=== PATIENT | female | born 1990 | race Caucasian/White ===

== ENCOUNTER → 2017-12-01 13:10 | Outpatient (CLI) | payer MEDICAID, SELFPAY ==
[2017-12-01 14:05] LABS: hCG Titer Quant., Serum 124 mIU/mL (<9 non-preg)
== END ==
PROVIDERS: Family Provider Family Medicine; PCP Family Medicine; Visit Provider Obstetrics & Gynecology
DX: N92.6 Irregular menstruation, unspecified (principal)
CPT/HCPCS: 36415; 84702

== ENCOUNTER → 2017-12-03 09:13 | Outpatient (CLI) | payer MEDICAID, SELFPAY ==
[2017-12-03 10:43] LABS: hCG Titer Quant., Serum 292 mIU/mL (<9 non-preg)
== END ==
PROVIDERS: Family Provider Family Medicine; PCP Family Medicine; Visit Provider Obstetrics & Gynecology
DX: N92.6 Irregular menstruation, unspecified (principal)
CPT/HCPCS: 36415; 84702

== ENCOUNTER → 2017-12-09 11:46 | Outpatient (CLI) | payer MEDICAID, SELFPAY ==
[2017-12-09 14:02] LABS: hCG Titer Quant., Serum 3328 mIU/mL (<9 non-preg)
== END ==
PROVIDERS: Family Provider Family Medicine; PCP Family Medicine; Visit Provider Nurse Practitioner Women's Health
DX: O20.0 Threatened abortion (principal)
CPT/HCPCS: 36415; 84702

== ENCOUNTER → 2017-12-11 12:20 | Outpatient (CLI) | payer MEDICAID, SELFPAY ==
[2017-12-11 13:20] LABS: hCG Titer Quant., Serum 5098 mIU/mL (<9 non-preg)
== END ==
PROVIDERS: Nurse Practitioner Women's Health; Family Provider Family Medicine; PCP Family Medicine; Visit Provider Obstetrics & Gynecology
DX: O20.0 Threatened abortion (principal); Z3A.00 Weeks of gestation of pregnancy not specified
CPT/HCPCS: 36415; 84702

== ENCOUNTER → 2017-12-13 15:58 | Outpatient (CLI) | payer MEDICAID, SELFPAY ==
[2017-12-13 17:09] LABS: hCG Titer Quant., Serum 8395 mIU/mL (<9 non-preg)
== END ==
PROVIDERS: Family Provider Family Medicine; PCP Family Medicine; Visit Provider Nurse Practitioner Women's Health
DX: O20.0 Threatened abortion (principal); Z3A.00 Weeks of gestation of pregnancy not specified
CPT/HCPCS: 36415; 84702

== ENCOUNTER 2017-12-18 09:09 | Emergency (ER) | payer MEDICAID, SELFPAY ==
[2017-12-18 09:10] VITALS: BP 143/83; PULSE 102; RESP 18; TEMP 36.6; O2SAT 98; BMI 49.6
--- NOTE | 2017-12-18 09:22 | US_ITS ---
STUDY: FIRST TRIMESTER OBSTETRICAL ULTRASOUND REASON FOR EXAM: Female, 27 years old. Bleeding. LMP: October 30, 2017 TECHNIQUE: Transvaginal. PRIOR ULTRASOUND: None. FINDINGS: There is visualization of a single gestational sac in a normal intrauterine position. The mean sac diameter (MSD) measures 1.5 cm, indicating an estimated gestational age (EGA) of 6 weeks, 3 days. The gestational sac shape is within normal limits. There is a visualized yolk sac. The yolk sac measures 0.3 cm. The placenta is non-visualized. There is visualization of a live embryo. The crown-rump length (CRL) measures 0.9 cm, indicating an estimated gestational age (EGA) of 6 weeks, 6 days. There is demonstrated cardiac activity with a heart rate of 126 bpm. The estimated gestation age (EGA) by LMP is 7 weeks, 0 days. The estimated date of delivery (LENNOX) by LMP is August 06, 2018. The estimated gestation age (EGA) by US is 6 weeks, 5 days. The estimated date of delivery (LENNOX) by US is August 08, 2018. The uterus measures 10.6 x 7.7 x 6.3 cm. There is a 0.8 cm region of subchorionic hemorrhage.. There is no demonstrated uterine fibroid. The cervix is closed. The right ovary measures 2.2 x 2.2 x 1.5 cm. There is no right ovarian cyst. There is no visualized right adnexal mass or complex lesion. The left ovary is not visualized. There is minimal fluid in the cul de sac. US/Transvaginal w/Preg US IMPRESSION: Single intrauterine gestation 6 weeks 5 days with estimated due date August 08, 2018. Small region of subchorionic hemorrhage. Electronically Signed: Roosevelt Wadsworth MD at 10:59 EDT , Service support ,
--- NOTE | 2017-12-18 09:23 | ED.VISSUMM ---
- ER Visit Summary Date of Service: 12/18/17 Chief Complaint: Vaginal bleeding History of Present Illness: The patient is a 27 F who presents with vaginal bleeding that became worse today. Patient states she is approximately 7 weeks . Patient is 7 para 3 with 3 spontaneous abortions. Patient states she has been spotting throughout this but began bleeding more today. Patient states today she started passing some clots. Patient admits to some mild cramping. Patient also admits to some mild right lower back pain. Patient states her last menstrual period was 10/30/2017. Patient states she had a positive test confirmed by her physician. Patient denies any fevers or chills. Patient does admit to some nausea and vomiting which she has had throughout the . Physical Examination: Vital signs are stable except for a slightly elevated blood pressure 142/78. Patient is afebrile. Patient is in no acute distress. Oral mucosa is pink and moist. Neck is supple. Trachea is midline. There is no JVD noted. Heart was regular rate and rhythm. Lungs are clear and equal bilateral. There is good respiratory effort noted. Abdomen is soft. Bowel sounds are normal. There is some mild suprapubic tenderness. There is no rebound or guarding noted. Cranial nerves II through XII are intact. There are no focal motor or sensory deficits noted. The remaining physical exam is within normal limits. Test Results: CBC and comprehensive metabolic profile were obtained and were within normal limits. Urinalysis does not show any evidence of urinary tract infection. Quantitative hCG was 16,632. Type and Rh was O+. Transvaginal ultrasound showed a single live intrauterine at approximately 6 weeks and 5 days with a heart rate of 126. There is a small subchorionic hemorrhage noted. Patient's blood pressure was slightly elevated however, she was having no headaches, visual changes, abdominal pain, or swelling. Emergency Department Course and Treatment: Patient was given IV fluids here. Patient was instructed to get plenty of rest. Patient was instructed to have complete vaginal rest. Patient was instructed to avoid tampons, douching, and intercourse. Patient was instructed to follow-up with her TANNING SALON ATTENDANT as scheduled. Patient understood and was agreeable with the plan. All questions were answered. Disposition: Discharged home Impression: Threatened This note was generated with Wrikeation software. It may contain incorrect words, spelling, and punctuation that were not noted in review of the chart prior to signing ED Disposition - Plan for ED Patient: Disposition: Home or Assisted Living Chief Complaint: Vag Bld, Preg Diagnosis: Threatened spontaneous Instructions: ED Miscarriage Poss Referrals: Asif Tim MD [Primary Care Provider] -
[2017-12-18 09:40] LABS: Color, Urine Yellow (Yellow); Glucose, Dipstick Normal (Normal); Ketone-Dipstick 5 mg/dl (Negative); Leukocyte Esterase-Dipstick 100 /ul (Negative); Nitrite-Dipstick Negative (Negative); Occult Blood-Urine 250 /ul (Negative); Protein-Dipstick 30 mg/dl (Negative); Urine Clarity Sl. Cloudy (Clear); Urine Urobilinogen Normal (Normal)
[2017-12-18] MEDS: 0.9% Normal Saline 1,000 ML 1000 ML IV (09:40)
[2017-12-18 09:43] LABS: Urine Bilirubin Dipstick 1 mg/dL (Negative)
[2017-12-18 09:48] LABS: Bacteria 2+ /hpf (None Seen); Mucous, Urine 1+ /hpf (<or=2+); Red Blood Cells-Urine 0-5 SEEN /hpf (0-5); Squamous Epithelial Cells - UA 10-25 SEEN /hpf (5-10); White Blood Cells 0-5 SEEN /hpf (0-5)
[2017-12-18 09:51] LABS: Absolute Lymphocyte Count 1.24 X10^3/ul (0.83-4.51); Basophil# 0.01 X10^3/uL; Basophil% 0.2 % (0-1); Eosinophil# 0.03 X10^3/uL; Eosinophils% 0.5 % (0-5); Hematocrit 39.1 % (37-47); Lymphocyte # 1.24 X10^3/ul (4.0); Lymphocyte % 21.5 % (19-41); Mean Corp Hgb Conc 33.2 g/gl (32-36); Mean Corpuscular Hgb 27.7 pg (27.0-32.0); Mean Corpuscular Volume 83.4 fL (81-99); Mean Platelet Vol. 9.1 fl (6.2-12.0); Monocyte# 0.47 X10^3/uL; Monocyte% 8.1 % (0-10); Neutrophil # 4.02 X10^3/uL (2.7-7.7); Neutrophil % 69.5 % (47-70); Platelet Count 243 K/mm3 (150-450); RBC Distribution Width CV 14.7 % (11.6-14.6); RBC Distribution Width SD 44.1 fl (35.1-43.9); Red Blood Count 4.69 M/mm3 (4.2-5.4); White Blood Count 5.8 K/mm3 (4.4-11.0)
[2017-12-18 09:52] LABS: POSITIVE COUNT NO; POSITIVE DIFFERENTIAL NO; POSITIVE MORPHOLOGY NO
[2017-12-18 10:25] LABS: hCG Titer Quant., Serum 16632 mIU/mL (<9 non-preg)
[2017-12-18 10:40] LABS: ALB/GLOB Ratio 0.7 RATIO (0.9-2.4); AST(SGOT) 13 U/L (15-37); Alanine Aminotransfer ALT/SGPT 24 U/L (13-56); Albumin, Serum 3.2 g/dL (3.2-5.0); Alkaline Phosphatase 81 U/L (45-117); Anion Gap 11 (5-15); BUN 13 mg/dL (7-18); Calcium,Total 8.7 mg/dL (8.5-10.1); Chloride 104 mmol/L (98-107); Creatinine, Serum 0.81 mg/dL (0.55-1.02); EST Glomerular Filtration Rate 89 mL/min (>60); Est Glom Filt Rate - Afr Amer 108 mL/min (>60); Estimated Creatinine Clearance 104.31 ml/min; Globulin 4.4 g/dL (2.2-4.2); Glucose 87 mg/dL (74-106); Protein, Total 7.6 g/dL (6.4-8.2); Sodium Level 140 mmol/L (136-145)
[2017-12-18 11:23] VITALS: BP 142/78; PULSE 82; RESP 16; O2SAT 98
[2017-12-18 11:51] VITALS: BP 132/78; PULSE 85; RESP 16; O2SAT 98
== END 2017-12-18 11:54 | disposition home or self-care (01) ==
PROVIDERS: Emergency Provider Emergency Medicine; Family Provider Family Medicine; PCP Family Medicine
DX: O20.0 Threatened abortion (principal); O21.9 Vomiting of pregnancy, unspecified; O99.211 Obesity complicating pregnancy, first trimester; R03.0 Elevated blood-pressure reading, without diagnosis of hypertension; K21.9 Gastro-esophageal reflux disease without esophagitis; Z79.899 Other long term (current) drug therapy; Z3A.01 Less than 8 weeks gestation of pregnancy
CPT/HCPCS: 76817; 80053; 81001; 84702; 85025; 86900; 99283; J7030; A4216

== ENCOUNTER 2017-12-28 08:25 | Emergency (ER) | payer MEDICAID, SELFPAY ==
[2017-12-28 08:25] VITALS: BP 139/73; PULSE 87; RESP 18; TEMP 36.6; O2SAT 99; BMI 45.6
--- NOTE | 2017-12-28 08:38 | ED.VISSUMM ---
- ER Visit Summary Date of Service: 12/28/17 Chief Complaint: Nausea and vomiting History of Present Illness: The patient is a 27 F currently 8 weeks . AB 3 with there is being miscarriages. Currently is under the care of Dr. Doherty of [facility]. Patient said morning sickness throughout this . They have tried both Phenergan and Reglan without much success. Basically has had a lot of nausea and vomiting this morning. Also has had loose stools and diarrhea throughout the . She denies any dysuria. She denies any fever. She denies any vaginal bleeding or discharge. No abdominal pain currently. Physical Examination: Ill-appearing young female. Vital signs are stable afebrile. H EENT exam unremarkable. Neck nontender. Lungs clear to auscultation bilaterally. Heart regular rhythm no murmur. Abdomen is soft nontender. Normal bowel sounds. No peritoneal signs. Both the right upper and right lower quadrants are unremarkable. She is moving all 4 extremities. They are neurovascularly intact. Calves are without edema or cords. Neurologically she is awake and alert without any focal motor deficits. Test Results: None Emergency Department Course and Treatment: IV normal saline ?1 L. IV Zofran. Patient doing well on repeat exams. Nausea is resolving positive she has been able to hold down p.o. fluids. Treatment Plan: Discharged home with Zofran prescription. Follow-up with her SENIOR ARCHITECT. Disposition: Discharge Impression: Acute nausea and vomiting First trimester This note was generated with Retroficiency dictation software. It may contain incorrect words, spelling, and punctuation that were not noted in review of the chart prior to signing ED Disposition - Plan for ED Patient: Disposition: Home or Assisted Living Chief Complaint: Nausea/Vomiting Instructions: ED Preg Morning Sickness Prescriptions: Ondansetron [Zofran Odt] 4 mg PO Q4H PRN PRN #14 tab.rapdis PRN Reason: Nausea Referrals: Asif Tim MD [Primary Care Provider] - Additional Instructions: Plenty of fluids and rest. [place] diet and increase slowly. Zofran as needed for nausea. Not improving or doing worse. Follow-up with your SENIOR ARCHITECT.
--- NOTE | 2017-12-28 08:41 | ED.DCSUM_ITS ---
- ER Visit Summary Date of Service: 12/28/17 Chief Complaint: Nausea and vomiting History of Present Illness: The patient is a 27 F currently 8 weeks . AB 3 with there is being miscarriages. Currently is under the care of Dr. Doherty of [facility]. Patient said morning sickness throughout this . They have tried both Phenergan and Reglan without much success. Basically has had a lot of nausea and vomiting this morning. Also has had loose stools and diarrhea throughout the . She denies any dysuria. She denies any fever. She denies any vaginal bleeding or discharge. No abdominal pain currently. Physical Examination: Ill-appearing young female. Vital signs are stable afebrile. H EENT exam unremarkable. Neck nontender. Lungs clear to auscultation bilaterally. Heart regular rhythm no murmur. Abdomen is soft nontender. Normal bowel sounds. No peritoneal signs. Both the right upper and right lower quadrants are unremarkable. She is moving all 4 extremities. They are neurovascularly intact. Calves are without edema or cords. Neurologically she is awake and alert without any focal motor deficits. Test Results: None Emergency Department Course and Treatment: IV normal saline ?1 L. IV Zofran. Patient doing well on repeat exams. Nausea is resolving positive she has been able to hold down p.o. fluids. Treatment Plan: Discharged home with Zofran prescription. Follow-up with her OB /SIX COLOR PRESS OPERATOR. Disposition: Discharge Impression: Acute nausea and vomiting First trimester This note was generated with Trustifi dictation software. It may contain incorrect words, spelling, and punctuation that were not noted in review of the chart prior to signing ED Disposition - Plan for ED Patient: Disposition: Home or Assisted Living Chief Complaint: Nausea/Vomiting Instructions: ED Preg Morning Sickness Prescriptions: Ondansetron [Zofran Odt] 4 mg PO Q4H PRN PRN #14 tab.rapdis PRN Reason: Nausea Referrals: Asif Tim MD [Primary Care Provider] - Additional Instructions: Plenty of fluids and rest. [place] diet and increase slowly. Zofran as needed for nausea. Not improving or doing worse. Follow-up with your THERMOCOUPLE TESTER.
--- NOTE | 2017-12-28 08:46 | DCINST.ED_ITS ---
ED Disposition - Plan for ED Patient: Disposition: Home or Assisted Living Chief Complaint: Nausea/Vomiting Instructions: ED Preg Morning Sickness Prescriptions: Ondansetron [Zofran Odt] 4 mg PO Q4H PRN PRN #14 tab.rapdis PRN Reason: Nausea Referrals: Asif Tim MD [Primary Care Provider] - Additional Instructions: Plenty of fluids and rest. [place] diet and increase slowly. Zofran as needed for nausea. Not improving or doing worse. Follow-up with your PAPER DELIVERER.
[2017-12-28] MEDS: Ondansetron 4 MG/2 ML Vial IV (09:28)
[2017-12-28] MEDS: 0.9% Normal Saline 1,000 ML 1000 ML IV (09:28)
[2017-12-28 10:54] VITALS: BP 125/80; PULSE 68; RESP 16; O2SAT 100
== END 2017-12-28 10:55 | disposition home or self-care (01) ==
PROVIDERS: Emergency Provider Emergency Medicine; Family Provider Family Medicine; PCP Family Medicine
DX: O21.9 Vomiting of pregnancy, unspecified (principal); Z79.899 Other long term (current) drug therapy; Z3A.08 8 weeks gestation of pregnancy
CPT/HCPCS: 96361; 96374; 99283; J7030; A4216; J2405

== ENCOUNTER → 2017-12-30 09:43 | Outpatient (CLI) | payer MEDICAID, SELFPAY ==
[2017-12-30 09:46] VITALS: BP 129/78; PULSE 80; RESP 18; TEMP 36.4; O2SAT 98; BMI 45.2
[2017-12-30] MEDS: Dextrose 5%-Lactated Ringers 1,000 ML 1000 ML IV (10:19)
[2017-12-30] MEDS: Ondansetron 4 MG/2 ML Vial IV (10:19)
[2017-12-30 10:49] LABS: Anion Gap 11 (5-15); BUN 11 mg/dL (7-18); BUN/Creat Ratio 10.9 RATIO (10-20); Calcium,Total 9.1 mg/dL (8.5-10.1); Chloride 101 mmol/L (98-107); Creatinine, Serum 1.01 mg/dL (0.55-1.02); EST Glomerular Filtration Rate 69 mL/min (>60); Est Glom Filt Rate - Afr Amer 84 mL/min (>60); Estimated Creatinine Clearance 83.65 ml/min; Glucose 79 mg/dL (74-106); Potassium 3.7 mmol/L (3.5-5.1); Sodium Level 139 mmol/L (136-145)
== END ==
PROVIDERS: Family Provider Family Medicine; PCP Family Medicine; Visit Provider Obstetrics & Gynecology
DX: E86.0 Dehydration (principal)
CPT/HCPCS: 96361; 96374; 80048; A4216; J2405

== ENCOUNTER → 2018-01-02 19:01 | Outpatient (CLI) | payer MEDICAID, SELFPAY | PROVIDERS: Family Provider Family Medicine; PCP Family Medicine; Visit Provider Obstetrics & Gynecology | DX: R30.0 Dysuria (principal) | CPT/HCPCS: 87077; 87086; 87088; 87186 ==

== ENCOUNTER → 2018-01-05 14:48 | Outpatient (CLI) | payer MEDICAID, SELFPAY ==
[2018-01-05 17:17] LABS: Absolute Lymphocyte Count 1.93 X10^3/ul (0.83-4.51); Absolute Neutrophil Count 4.6 X10^3/uL (2.0-7.7); Basophil# 0.01 X10^3/uL; Basophil% 0.1 % (0-1); Eosinophil# 0.21 X10^3/uL; Eosinophils% 2.9 % (0-5); Hematocrit 41.2 % (37-47); Hemoglobin 12.9 g/dl (12.0-15.0); Lymphocyte # 1.93 X10^3/ul (4.0); Mean Corp Hgb Conc 31.3 g/gl (32-36); Mean Corpuscular Hgb 26.7 pg (27.0-32.0); Mean Corpuscular Volume 85.1 fL (81-99); Monocyte# 0.39 X10^3/uL; Monocyte% 5.4 % (0-10); Neutrophil # 4.61 X10^3/uL (2.7-7.7); Neutrophil % 64.5 % (47-70); Platelet Count 283 K/mm3 (150-450); RBC Distribution Width CV 14.1 % (11.6-14.6); RBC Distribution Width SD 44.3 fl (35.1-43.9); Red Blood Count 4.84 M/mm3 (4.2-5.4); White Blood Count 7.2 K/mm3 (4.4-11.0)
[2018-01-05 17:18] LABS: POSITIVE COUNT NO; POSITIVE DIFFERENTIAL NO; POSITIVE MORPHOLOGY NO
[2018-01-05 17:57] LABS: Glucose Challenge Gest 1H 50g 81 mg/dL (70-140)
[2018-01-06 03:50] LABS: Rapid Plasmin Reagin (RPR) NONREACTIVE (NONREACTIVE)
[2018-01-06 09:46] LABS: HIV - WCH Non-Reactive (Nonreactive); Rubella IgG 315.1 IU/mL
[2018-01-09 13:14] LABS: HEPATITIS B SURFACE AG Negative (Negative)
== END ==
PROVIDERS: Family Provider Family Medicine; PCP Family Medicine; Visit Provider Obstetrics & Gynecology
DX: Z34.90 Encounter for supervision of normal pregnancy, unspecified, unspecified trimester (principal)
CPT/HCPCS: 36415; 82950; 85025; 86592; 86703; 86762; 87340

== ENCOUNTER → 2018-01-05 17:55 | Outpatient (CLI) | payer MEDICAID, SELFPAY ==
[2018-01-05 20:24] LABS: Chlamydia Trachomatis by PCR Negative (Negative); Neisserai gonorrhoeae by PCR Negative (Negative); Probe Check PASS; Sample Adequacy Control PASS; Specimen Processing Control PASS
== END ==
PROVIDERS: Family Provider Family Medicine; Visit Provider Obstetrics & Gynecology
DX: Z34.90 Encounter for supervision of normal pregnancy, unspecified, unspecified trimester (principal)
CPT/HCPCS: 36415; 82950; 85025; 86592; 86703; 86762; 87086; 87088; 87340; 87491; 87591

== ENCOUNTER → 2018-01-19 09:49 | Outpatient (CLI) | payer MEDICAID, SELFPAY ==
[2018-01-19 10:48] LABS: Creatinine, Urine (random) < 13.00 mg/dL (NO RANGE EST.); Protein, Urine (Random) < 6.0 mg/dL (<11.9)
[2018-01-19 10:50] LABS: ALB/GLOB Ratio 0.7 RATIO (0.9-2.4); AST(SGOT) 12 U/L (15-37); Alanine Aminotransfer ALT/SGPT 24 U/L (13-56); Albumin, Serum 2.9 g/dL (3.2-5.0); Alkaline Phosphatase 73 U/L (45-117); Anion Gap 9 (5-15); BUN 8 mg/dL (7-18); BUN/Creat Ratio 11.8 RATIO (10-20); Calcium,Total 8.9 mg/dL (8.5-10.1); Chloride 105 mmol/L (98-107); Creatinine, Serum 0.68 mg/dL (0.55-1.02); EST Glomerular Filtration Rate 109 mL/min (>60); Est Glom Filt Rate - Afr Amer 132 mL/min (>60); Globulin 4.4 g/dL (2.2-4.2); Glucose 83 mg/dL (74-106); Potassium 3.8 mmol/L (3.5-5.1); Protein, Total 7.3 g/dL (6.4-8.2); Sodium Level 140 mmol/L (136-145)
== END ==
PROVIDERS: Family Provider Family Medicine; PCP Family Medicine; Visit Provider Obstetrics & Gynecology
DX: Z36.82 Encounter for antenatal screening for nuchal translucency (principal); O09.91 Supervision of high risk pregnancy, unspecified, first trimester; Z3A.00 Weeks of gestation of pregnancy not specified
CPT/HCPCS: 36415; 80053; 82570; 84156; 86850; 86900

== ENCOUNTER → 2018-02-17 18:20 | Outpatient (CLI) | payer MEDICAID, SELFPAY | PROVIDERS: Family Provider Family Medicine; PCP Family Medicine; Referring Provider Obstetrics & Gynecology; Visit Provider Obstetrics & Gynecology | DX: M54.5 Low back pain (principal) | CPT/HCPCS: 87086; 87088 ==

== ENCOUNTER → 2018-03-13 12:01 | Outpatient (CLI) | payer MEDICAID, SELFPAY | PROVIDERS: Family Provider Family Medicine; PCP Family Medicine | DX: Z36.9 Encounter for antenatal screening, unspecified (principal) | CPT/HCPCS: 36415 ==

== ENCOUNTER 2018-04-14 09:35 | Outpatient (CLI) | payer MEDICAID, SELFPAY ==
[2018-04-05 11:56] VITALS: BMI 47.1
[2018-04-14 09:52] VITALS: BMI 47.0
--- NOTE | 2018-04-18 22:48 | OB.TRI.NOTE ---
- Problem List (1) Status post fall Status: Acute (2) Obesity affecting Status: Acute Comment: 1 tm glucola normal, growth us after 32 weeks and weekly nst from then on (3) screening encounter Status: Acute Comment: abnormal for SALVADOR-A and needs growth US q4wk after 24 and weekly nst after 32 (4) History of pre-eclampsia in prior , currently in first trimester Status: Acute Comment: baseline labs nl, baby asa at 12 weeks (5) Supervision of high-risk Status: Acute Qualifiers: Comment: PRR LENNOX 08/03/18 PC Angus Rose Mary Logan boyfriend Phillip (6) GBS (group B streptococcus) UTI complicating Status: Acute Qualifiers: Comment: 01/03/18 Tx macrobid plan PCN prophylaxis at 36 weeks (7) Status: Acute Qualifiers: Comment: Seqtl screen done-negative sequtl screen, prev CF carrier screening negative, needs 2nd round bloodwork drawn at 16-18 weeks. Needs blood drawn at 15-18 weeks. anatomy us ordered. History of Present Illness Date of Service: 04/14/18 Was patient seen by the physician?: No Reason For Visit: R/O LABOR Date of Service: 04/18/18 History of Present Illness: s/p fall Allergies acetaminophen [From Percocet] Allergy (Verified 04/14/18 09:54) Other hydrocodone bitartrate [From Vicodin] Allergy (Verified 04/14/18 09:54) Other latex Allergy (Verified 04/14/18 09:54) Other metoprolol Allergy (Verified 04/14/18 09:54) Other oxycodone HCl [From Percocet] Allergy (Verified 04/14/18 09:54) Other - Pertinent Past Medical History Medical History: Past Medical History (Last Reviewed 04/05/18 @ 11:57 by Mesha Borjas) History of pre-eclampsia Hx LEEP (loop electrosurgical excision procedure), cervix, Surgical History: Past Surgical History (Last Reviewed 04/05/18 @ 11:57 by Mesha Borjas) History of foot surgery History of tonsillectomy NST - FHR Rate Baby A Baseline: 130 Variability:: Moderate Accelerations:: 10 x 10 Decelerations:: None NST Reactive:: Yes, Appropriate for gestational age FHR Category:: Category I Uterine Activity:: no ctx Impression/Plan s/p fall abdominal trauma rassuring fhts dc home
== END 2018-04-14 11:20 | disposition home or self-care (01) ==
LOC: WPOUT 09:38 → WP 09:38
PROVIDERS: Family Provider Family Medicine; PCP Family Medicine; Referring Provider Obstetrics & Gynecology; Visit Provider Obstetrics & Gynecology
DX: O9A.219 Injury, poisoning and certain other consequences of external causes complicating pregnancy, unspecified trimester (principal); S39.91XA Unspecified injury of abdomen, initial encounter; W19.XXXA Unspecified fall, initial encounter; Y93.9 Activity, unspecified; Y92.9 Unspecified place or not applicable; Y99.9 Unspecified external cause status; O99.820 Streptococcus B carrier state complicating pregnancy; O23.40 Unspecified infection of urinary tract in pregnancy, unspecified trimester; Z3A.00 Weeks of gestation of pregnancy not specified
CPT/HCPCS: 59050; 99218; G0378

== ENCOUNTER → 2018-05-08 13:33 | Outpatient (CLI) | payer MEDICAID, SELFPAY ==
[2018-05-08 13:19] VITALS: BMI 47.0
[2018-05-08 14:36] LABS: Glucose Challenge Gest 1H 50g 104 mg/dL (70-140)
[2018-05-08 14:38] LABS: Absolute Lymphocyte Count 2.06 X10^3/ul (0.83-4.51); Absolute Neutrophil Count 8.3 X10^3/uL (2.0-7.7); Basophil# 0.01 X10^3/uL; Basophil% 0.1 % (0-1); Eosinophil# 0.11 X10^3/uL; Hematocrit 37.3 % (37-47); Lymphocyte # 2.06 X10^3/ul (4.0); Lymphocyte % 19.1 % (19-41); Mean Corp Hgb Conc 32.2 g/gl (32-36); Mean Corpuscular Hgb 27.5 pg (27.0-32.0); Mean Corpuscular Volume 85.4 fL (81-99); Mean Platelet Vol. 9.2 fl (6.2-12.0); Monocyte# 0.31 X10^3/uL; Monocyte% 2.9 % (0-10); Neutrophil # 8.27 X10^3/uL (2.7-7.7); Neutrophil % 76.7 % (47-70); Platelet Count 250 K/mm3 (150-450); RBC Distribution Width CV 14.1 % (11.6-14.6); RBC Distribution Width SD 43.9 fl (35.1-43.9); Red Blood Count 4.37 M/mm3 (4.2-5.4); White Blood Count 10.8 K/mm3 (4.4-11.0)
[2018-05-08 14:40] LABS: POSITIVE COUNT NO; POSITIVE DIFFERENTIAL NO; POSITIVE MORPHOLOGY NO
== END ==
PROVIDERS: Nurse Practitioner Women's Health; Family Provider Family Medicine; PCP Family Medicine; Referring Provider Obstetrics & Gynecology; Visit Provider Obstetrics & Gynecology
DX: O09.92 Supervision of high risk pregnancy, unspecified, second trimester (principal); Z3A.00 Weeks of gestation of pregnancy not specified
CPT/HCPCS: 36415; 82950; 85025

== ENCOUNTER → 2018-06-05 17:57 | Outpatient (CLI) | payer MEDICAID, SELFPAY ==
[2018-06-05 14:17] VITALS: BMI 47.0
[2018-06-05 20:30] LABS: Chlamydia Trachomatis by PCR Negative (Negative); Neisserai gonorrhoeae by PCR Negative (Negative); Probe Check PASS; Sample Adequacy Control PASS; Specimen Processing Control PASS
== END ==
PROVIDERS: Family Provider Family Medicine; PCP Family Medicine; Referring Provider Obstetrics & Gynecology; Visit Provider Obstetrics & Gynecology
DX: O09.90 Supervision of high risk pregnancy, unspecified, unspecified trimester (principal); R30.0 Dysuria; Z3A.00 Weeks of gestation of pregnancy not specified
CPT/HCPCS: 87086; 87088; 87491; 87591

== ENCOUNTER → 2018-07-10 17:08 | Outpatient (CLI) | payer MEDICAID, SELFPAY ==
[2018-07-10 15:30] VITALS: BMI 49.6
== END ==
PROVIDERS: Family Provider Family Medicine; PCP Family Medicine; Referring Provider Obstetrics & Gynecology; Visit Provider Obstetrics & Gynecology
DX: O09.93 Supervision of high risk pregnancy, unspecified, third trimester (principal); Z3A.00 Weeks of gestation of pregnancy not specified
CPT/HCPCS: 87081

== ENCOUNTER → 2018-07-17 17:47 | Outpatient (CLI) | payer MEDICAID, SELFPAY ==
[2018-07-17 14:18] VITALS: BMI 50.9
[2018-07-17 18:09] LABS: Protein, Urine (Random) 25.2 mg/dL (<11.9); Protein:Creat Ratio 135 mg/g CRE (0-200)
== END ==
PROVIDERS: Family Provider Family Medicine; PCP Family Medicine; Referring Provider Obstetrics & Gynecology; Visit Provider Obstetrics & Gynecology
DX: O16.9 Unspecified maternal hypertension, unspecified trimester (principal)
CPT/HCPCS: 82570; 84156

== ENCOUNTER 2018-07-19 11:25 | Outpatient (CLI) | payer MEDICAID, SELFPAY ==
[2018-07-17 14:18] VITALS: BMI 50.9
[2018-07-19 12:05] VITALS: BMI 51.0
[2018-07-19 12:13] LABS: Mucous, Urine 0 SEEN /hpf (<or=2+); Red Blood Cells-Urine 0 SEEN /hpf (0-5)
[2018-07-19 12:22] LABS: Color, Urine Yellow (Yellow); Glucose, Dipstick Normal (Normal); Ketone-Dipstick Negative (Negative); Leukocyte Esterase-Dipstick 100 /ul (Negative); Nitrite-Dipstick Negative (Negative); Occult Blood-Urine Negative /ul (Negative); Protein-Dipstick Negative (Negative); Specific Gravity, Urine 1.015 (1.002-1.030); Urine Bilirubin Dipstick Negative (Negative); Urine Clarity Cloudy (Clear); Urine Urobilinogen Normal (Normal); Urine pH 6.5 (5.0 - 8.0)
[2018-07-19 12:25] LABS: ROM Internal Control Test YES-OK TO RESULT pt. (Internal QC); Record Kit Lot#, ROM+ J7836
[2018-07-19 12:33] LABS: Squamous Epithelial Cells - UA 0-5 SEEN /hpf (5-10); White Blood Cells 0-5 SEEN /hpf (0-5)
[2018-07-19 12:34] LABS: Bacteria 1+ /hpf (None Seen)
[2018-07-19 12:48] LABS: ROM Patient Test Negative (Negative)
--- NOTE | 2018-07-19 21:56 | OB.TRI.HP_ITS ---
- Problem List (1) False labor Status: Acute History of Present Illness Date of Service: 07/19/18 Was patient seen by the physician?: No Reason For Visit: R/O LABOR History of Present Illness: co ctx and pelvic pressure Allergies acetaminophen [From Percocet] Allergy (Verified 07/17/18 14:18) Other hydrocodone bitartrate [From Vicodin] Allergy (Verified 07/17/18 14:18) Other latex Allergy (Verified 07/17/18 14:18) Other metoprolol Allergy (Verified 07/17/18 14:18) Other oxycodone HCl [From Percocet] Allergy (Verified 07/17/18 14:18) Other - Pertinent Past Medical History Medical History: Past Medical History (Last Reviewed 07/17/18 @ 14:18 by Mesha Borjas) History of pre-eclampsia Hx LEEP (loop electrosurgical excision procedure), cervix, Surgical History: Past Surgical History (Last Reviewed 07/10/18 @ 14:38 by Vandana Diaz) History of foot surgery History of tonsillectomy Laboratory Studies: Laboratory Tests 07/19/18 07/19/18 Range/Units 11:55 11:55 Urine Color Yellow (Yellow) Urine Clarity Cloudy (Clear) Urine pH 6.5 (5.0 - 8.0) Ur Specific [place] 1.015 (1.002-1.030) Urine Protein Negative (Negative) mg/dl Urine Glucose (UA) Normal (Normal) mg/dl Urine Ketones Negative (Negative) mg/dl Urine Occult Blood Negative (Negative) /ul Urine Nitrite Negative (Negative) Urine Bilirubin Negative (Negative) mg/dL Urine Urobilinogen Normal (Normal) mg/dl Ur Leukocyte Esterase 100 H (Negative) /ul Urine RBC 0 SEEN (0-5) /hpf Urine WBC 0-5 SEEN (0-5) /hpf Ur Squamous Epith Cells 0-5 SEEN (5-10) /hpf Urine Bacteria 1+ (None Seen) /hpf Urine Mucus 0 SEEN (<or=2+) /hpf Vag Amniotic Fld Detect Negative (Negative) NST - FHR Rate Baby A Baseline: 130 Variability:: Moderate Accelerations:: 15 x 15 Decelerations:: None NST Reactive:: Yes FHR Category:: Category I Uterine Activity:: irregular Impression/Plan false labor, no cervicla change reactive nst dc home labor precautions
== END 2018-07-19 13:15 | disposition home or self-care (01) ==
LOC: WPOUT 12:00 → WP 12:01
PROVIDERS: Family Provider Family Medicine; PCP Family Medicine; Referring Provider Obstetrics & Gynecology; Visit Provider Obstetrics & Gynecology
DX: O47.9 False labor, unspecified (principal); Z3A.00 Weeks of gestation of pregnancy not specified
CPT/HCPCS: 59025; 59050; 81001; 84112; 87086; 87088; 99218; G0378

== ENCOUNTER 2018-07-24 14:36 | Outpatient (CLI) | payer MEDICAID, SELFPAY ==
[2018-07-24 15:01] VITALS: BMI 51.5
--- NOTE | 2018-07-30 12:02 | OB.TRI.PN ---
Progress Notes Date of Service: 07/24/18 Progress Note: Patient seen for NST secondary to obesity. heart tones 130s moderate variability reactive no decelerations category 1 tracing [place] irregular contractions Assessment and plan continue expectant management for continue weekly NSTs until delivery
== END 2018-07-24 15:35 | disposition home or self-care (01) ==
LOC: WPOUT 14:37 → WP 14:38
PROVIDERS: Family Provider Family Medicine; PCP Family Medicine; Referring Provider Obstetrics & Gynecology; Visit Provider Obstetrics & Gynecology
DX: O99.210 Obesity complicating pregnancy, unspecified trimester (principal); Z3A.00 Weeks of gestation of pregnancy not specified
CPT/HCPCS: 59025; 59050; 99218; G0378

== ENCOUNTER → 2018-07-31 14:38 | Outpatient (CLI) | payer MEDICAID, SELFPAY ==
[2018-07-31 14:21] VITALS: BMI 51.5
[2018-07-31 15:12] LABS: Absolute Lymphocyte Count 1.96 X10^3/ul (0.83-4.51); Absolute Neutrophil Count 8.6 X10^3/uL (2.0-7.7); Basophil# 0.01 X10^3/uL; Basophil% 0.1 % (0-1); Eosinophil# 0.13 X10^3/uL; Eosinophils% 1.2 % (0-5); Hematocrit 39.1 % (37-47); Hemoglobin 12.1 g/dl (12.0-15.0); Lymphocyte # 1.96 X10^3/ul (4.0); Lymphocyte % 17.4 % (19-41); Mean Corp Hgb Conc 30.9 g/gl (32-36); Mean Corpuscular Hgb 26.1 pg (27.0-32.0); Mean Corpuscular Volume 84.3 fL (81-99); Mean Platelet Vol. 9.7 fl (6.2-12.0); Monocyte# 0.55 X10^3/uL; Monocyte% 4.9 % (0-10); Neutrophil # 8.57 X10^3/uL (2.7-7.7); Platelet Count 318 K/mm3 (150-450); RBC Distribution Width CV 15.6 % (11.6-14.6); RBC Distribution Width SD 46.9 fl (35.1-43.9); Red Blood Count 4.64 M/mm3 (4.2-5.4); White Blood Count 11.3 K/mm3 (4.4-11.0)
[2018-07-31 15:14] LABS: ALB/GLOB Ratio 0.5 RATIO (0.9-2.4); AST(SGOT) 13 U/L (15-37); Alanine Aminotransfer ALT/SGPT 15 U/L (13-56); Albumin, Serum 2.3 g/dL (3.2-5.0); Alkaline Phosphatase 139 U/L (45-117); Anion Gap 7 (5-15); BUN 13 mg/dL (7-18); BUN/Creat Ratio 13.2 RATIO (10-20); Calcium,Total 8.4 mg/dL (8.5-10.1); Chloride 107 mmol/L (98-107); Creatinine, Serum 0.99 mg/dL (0.55-1.02); EST Glomerular Filtration Rate 71 mL/min (>60); Est Glom Filt Rate - Afr Amer 85 mL/min (>60); Globulin 4.6 g/dL (2.2-4.2); Glucose 90 mg/dL (74-106); Potassium 4.3 mmol/L (3.5-5.1); Protein, Total 6.9 g/dL (6.4-8.2); Sodium Level 138 mmol/L (136-145)
[2018-07-31 15:23] LABS: POSITIVE COUNT NO; POSITIVE DIFFERENTIAL NO; POSITIVE MORPHOLOGY NO
== END ==
PROVIDERS: Family Provider Family Medicine; PCP Family Medicine; Referring Provider Obstetrics & Gynecology; Visit Provider Obstetrics & Gynecology
DX: R10.11 Right upper quadrant pain (principal)
CPT/HCPCS: 36415; 80053; 85025

== ENCOUNTER 2018-08-01 11:10 | Inpatient (IN) | payer MEDICAID, SELFPAY ==
[2018-07-31 14:21] VITALS: BMI 51.5
[2018-08-01 10:59] VITALS: BMI 51.2
[2018-08-01 11:11] LABS: ROM Internal Control Test YES-OK TO RESULT pt. (Internal QC)
[2018-08-01 11:12] LABS: ROM Patient Test POSITIVE (Negative); Record Kit Lot#, ROM+ J7836
[2018-08-01 12:02] LABS: Absolute Lymphocyte Count 1.93 X10^3/ul (0.83-4.51); Absolute Neutrophil Count 8.6 X10^3/uL (2.0-7.7); Basophil# 0.01 X10^3/uL; Basophil% 0.1 % (0-1); Eosinophil# 0.09 X10^3/uL; Eosinophils% 0.8 % (0-5); Hematocrit 37.1 % (37-47); Lymphocyte # 1.93 X10^3/ul (4.0); Lymphocyte % 17.2 % (19-41); Mean Corp Hgb Conc 32.3 g/gl (32-36); Mean Corpuscular Hgb 26.5 pg (27.0-32.0); Mean Corpuscular Volume 82.1 fL (81-99); Mean Platelet Vol. 9.4 fl (6.2-12.0); Monocyte# 0.59 X10^3/uL; Monocyte% 5.3 % (0-10); Neutrophil # 8.55 X10^3/uL (2.7-7.7); Neutrophil % 76.3 % (47-70); Platelet Count 298 K/mm3 (150-450); RBC Distribution Width CV 15.5 % (11.6-14.6); RBC Distribution Width SD 46.2 fl (35.1-43.9); Red Blood Count 4.52 M/mm3 (4.2-5.4); White Blood Count 11.2 K/mm3 (4.4-11.0)
[2018-08-01 12:05] LABS: POSITIVE COUNT NO; POSITIVE DIFFERENTIAL NO; POSITIVE MORPHOLOGY NO
[2018-08-01] MEDS: Lactated Ringers 1,000 ML 50 ML IV ×2 (14:12→18:46)
[2018-08-01] MEDS: Oxytocin 30 units/NS 500 ml 30 UNITS/500 ML IV.SOLN IV (14:20)
--- NOTE | 2018-08-01 15:53 | HP.PCM_ITS ---
- Problem List (1) Polyhydramnios affecting Status: Acute (2) Obesity affecting Status: Acute Qualifiers: Comment: 1 tm glucola normal, growth us after 32 weeks and weekly nst from then on (3) History of pre-eclampsia in prior , currently in first trimester Status: Acute Comment: baseline labs nl, baby asa at 12 weeks (4) Supervision of high-risk Status: Acute Qualifiers: Comment: PRR LENNOX 08/03/18 Girl Stu Logan boyfriend Phillip (5) GBS (group B streptococcus) UTI complicating Status: Acute Qualifiers: Comment: 01/03/18 Tx macrobid plan PCN prophylaxis at 36 weeks (6) Status: Acute Qualifiers: Comment: Seqtl screen done-low risk genetic but abnl- need 3TM screening, prev CF carrier screening negative. anatomy scan nl. History Date of Admission: 03/05/17 Final LENNOX: 08/03/18 Gestational age: 39 Weeks and 5 Days History of this : This is a 28 year-old, at 39 weeks gestational age with spontaneous rupture of membranes. Patient has had clear loss of fluid and denies any vaginal bleeding and has had irregular contractions. She is a complicated by polyhydramnios and obesity. Medical History: Medical History (Last Reviewed 07/31/18 @ 13:47 by Vandana Diaz) History of pre-eclampsia Z87.59 Hx LEEP (loop electrosurgical excision procedure), cervix, O34.40, Z98.890 Surgical History: Surgical History (Last Reviewed 07/31/18 @ 13:47 by Vandana Diaz) History of foot surgery Z98.890 History of tonsillectomy Z98.890, Z90.89 Allergies metoprolol Allergy (Severe, Verified 08/01/18 12:32) Hives acetaminophen [From Percocet] Allergy (Intermediate, Verified 08/01/18 12:32) Hives hydrocodone bitartrate [From Vicodin] Allergy (Intermediate, Verified 08/01/18 12:31) Hives latex Allergy (Verified 07/31/18 13:47) Rash oxycodone HCl [From Percocet] Allergy (Verified 07/31/18 13:47) Hives Home Medications: Home Medications vitamin#30 30 mg iron-10 mg iron-folic acid 1 mg-omg3 capsule 1 cap PO DAILY cap 06/05/18 Smoking Status: Former smoker Alcohol: None Number of Fetus(es): 1 Heart Tracin moderate variability reactive no decelerations category I tracing [place]: irregular History Past Pregnancies: Past Pregnancies Pregancy History 7 Elective abortions Hx Para 3 Spontaneous abortions Hx # Term Pregnancies Ectopic pregnancies Hx # Pregnancies Multiple births # of living children Past Pregnancies Del. Date Name GA/Weeks Outcome Route Bth Weight Infant Gen Labor Lgth Anesthesia Del Locatn Provider FOB Unknown Angus 2008 40 8pounds 3 ounce epidural Unknown Ai 2010 39 live - full term 7 lb 03/05/17 Doreen 39 8 lbs Female WC ANNA Labs: Mom's Labs & Results 08/01/18 08/01/18 08/01/18 10:56 11:50 11:50 WBC 11.2 H RBC 4.52 Hgb 12.0 Hct 37.1 MCV 82.1 MCH 26.5 L MCHC 32.3 RDW 15.5 H RDW Differential 46.2 H Plt Count 298 MPV 9.4 Immature Gran % (Auto) 0.300 Neut % (Auto) 76.3 H Lymph % (Auto) 17.2 L [place] % (Auto) 5.3 Eos % (Auto) 0.8 Baso % (Auto) 0.1 Absolute Neuts (auto) 8.6 H Absolute Lymphs (auto) 1.93 Total Counted Not Reportable Vag Amniotic Fld Detect POSITIVE H Blood Type O POSITIVE Antibody Screen NEGATIVE Course Did the patient receive Yes care? Labs Blood Type: O RH: POSITIVE RPR/VDRL/Syphilis Nonreactive Rubella status Immune HbSAg Negative Chlamydia Negative Gonorrhea Negative HIV/AIDS Non-Reactive Group B Strep: Positive Current Obstetrical History Gestational Diabetes No Incompetent Cervix No Infertility No IUGR No Macrosomia No Hypertension/Pre-eclampsia No Placenta Previa/Abruption No PTL/PROM No Uterine anomaly No Oligohydramnios No Polyhydramnios Yes Multiple gestation No Past Medical History Asthma No Diabetes No Hypertension No Heart disease No Mitral valve prolapse No Neurologic/Seizure disorder/ No Migraines Kidney disease No Liver disease No Varicosities No Clotting disorders/Hx of DVT No Thyroid Dysfunction No Other medical diseases No Psychiatric disorders No Major trauma No Abnormal PAP smear Yes: leep done in 2016 Sleep apnea No Mammogram in the last 2 years No Social History Marital Status: Alleged father Phillip Junior Hx Smoking No Smoking Status Former smoker Expected Infant Delivery Method: Spontaneous Vaginal Review of Systems Constitutional: Denies: Fever, Malaise Eyes: Denies: Blurred vision, Vision Change HEENT: Denies: Head Aches, Visual Changes Cardiovascular: Denies: Chest Pain, Palpitations Respiratory: Denies: Cough, Shortness of Breath, Wheezing Gastrointestinal: Denies: Abdominal Pain, Diarrhea, Nausea, Vomiting Genitourinary: Denies: Dysuria, Hematuria Musculoskeletal: Denies: Joint Pain, Muscle pain Skin: Denies: Lesions, Rash Neurological: Denies: Blurred vision, Focal weakness, Headaches Psychiatric: Denies: Anxiety, Depression Endocrine: Denies: Heat/ Cold Intolerance Hematologic/ Lymphatic: Denies: Easy Bruising, Easy Bleeding Physical Exam General: Alert, Cooperative, No apparent distress HEENT: Atraumatic, Normocephalic. Negative for: Thyromegaly, Lymphadenopathy Cardiovascular: Regular rate Lungs: Normal air movement Abdomen: Soft, Non Tender, Gravid Neurological: Deep Tendon Reflexes 2+/4 and Symmetrical, Neuro grossly intact. Negative for: Clonus MILIEU COUNSELOR: Normal external genitalia. Negative for: Vulvar lesions Estimated gestational size: Appropriate for gestational size Presentation: Cephalic Cervix Dilation (cm): 2 Station: -2 Effacement (%): 80 Assessment/Plan All Active Problems (Last Reviewed 07/31/18 @ 13:47 by Vandana Diaz) RUQ abdominal pain (Acute) False labor (Acute) Polyhydramnios affecting (Acute) Obesity affecting (Acute) History of pre-eclampsia in prior , currently in first trimester (Acute) Supervision of high-risk (Acute) GBS (group B streptococcus) UTI complicating (Acute) (Acute) screening encounter (Resolved) BMI greater than 40 (Resolved) Status post fall (Resolved) This is a 28 year-old, , at 39 weeks gestational age resents with premature rupture of membranes Patient presents IOL, plan management for , pitocin per protocol. Pain management: Minimal intervention. GBS positive plan penicillin Management of any complications: Polyhydramnios and obesity I have reviewed the PFSH and made any clinically relevant updates.
[2018-08-01] MEDS: Nalbuphine 10 MG/ML Ampul IV (20:12)
[2018-08-01] MEDS: Oxytocin 30 units/NS 500 ml 30 UNITS/500 ML IV.SOLN 334 UNITS IV (20:54)
--- NOTE | 2018-08-01 21:02 | OP.PCM_ITS ---
Problem List (1) Polyhydramnios affecting Status: Acute (2) Obesity affecting Status: Acute Qualifiers: Comment: 1 tm glucola normal, growth us after 32 weeks and weekly nst from then on (3) History of pre-eclampsia in prior , currently in first trimester Status: Acute Comment: baseline labs nl, baby asa at 12 weeks (4) Supervision of high-risk Status: Acute Qualifiers: Comment: PRR LENNOX 08/03/18 Girl Stu Logan boyfriend Phillip (5) GBS (group B streptococcus) UTI complicating Status: Acute Qualifiers: Comment: 01/03/18 Tx macrobid plan PCN prophylaxis at 36 weeks (6) Status: Acute Qualifiers: Comment: Seqtl screen done-low risk genetic but abnl- need 3TM screening, prev C F carrier screening negative. anatomy scan nl. Vaginal Delivery Maternal Presentation: Spontaneous Rupture of Membranes Method of Induction: Pitocin Medical Reason for Induction: Premature Rupture of Membranes Amniotic Membrane Rupture Type: Spontaneous at home Amniotic Fluid Description: Clear Final LENNOX: 08/03/18 Gestational age: 39 Weeks and 5 Days Date of Procedure: 08/01/18 Pre-Operative Diagnosis: prom Post-Operative Diagnosis: same Surgery/ Procedure Performed: Spontaneous Vaginal Delivery Type of Anesthesia: None Description of Procedure: Patient began pushing and delivered the head in the YOESPH presentation. The head was delivered atraumatically and a loose nuchal cord ?1 was identified and easily reduced over the infant's head. The anterior and posterior shoulders initially had a small delay due to patient discomfort and positioning due to going natural but then delivered without complication followed by the rest of the infant and the infant was placed on the maternal abdomen. Delayed cord clamping was employed for approximately 60 seconds. Cord was clamped and cut and gentle traction was applied to the cord and the placenta delivered spontaneously immediately following it was noted to be intact with three-vessel cord. The perineum and vagina were inspected and noted to have no laceration. EBL was 100 cc. Patient and infant tolerated delivery well. Presentation: YOSEPH Placental Delivery Description: Spontaneous Placenta Disposition: [facility] Cord Vessel Description: 3 Vessels Estimated Blood Loss: 100 Infant A gender: Female Episiotomy Description: None Laceration: None Medications given after delivery: IV Pitocin Complications: None
[2018-08-01] MEDS: Oxytocin 30 units/NS 500 ml 30 UNITS/500 ML IV.SOLN 167 UNITS IV (21:24)
[2018-08-01] MEDS: Naproxen 250 MG Tablet 500 MG PO (22:28)
[2018-08-02 03:50] VITALS: BP 121/74; PULSE 67; RESP 18; TEMP 36.3
[2018-08-02 08:20] VITALS: BP 115/71; PULSE 92; RESP 18; TEMP 36.9
[2018-08-02] MEDS: Naproxen 250 MG Tablet 500 MG PO ×2 (08:30→16:53)
--- NOTE | 2018-08-02 10:01 | PCM.PN.OB ---
Subjective: doing well no complaints pain controlled no CP SOB N V ambulating well tolerating po lochia moderate, going well - Physical Exam General: Alert, Oriented x3 Abdomen: Soft, Non Tender, - - FF below U Vital Signs Temp Pulse Resp BP 98.4 F 92 18 115/71 08/02/18 08:20 08/02/18 08:20 08/02/18 08:20 08/02/18 08:20 Oxygen Delivery Method Room Air Weight: 337 lb 6 oz Body Mass Index (BMI) 51.2 Intake and Output for Last 24 Hours 07/31/18 08/01/18 08/02/18 23:59 23:59 23:59 Intake Total 100 / 100 Output Total 200 / 200 Balance -100 / -100 Laboratory Tests Past 24 Hrs 08/01/18 08/01/18 08/01/18 10:56 11:50 11:50 WBC 11.2 H RBC 4.52 Hgb 12.0 Hct 37.1 MCV 82.1 MCH 26.5 L MCHC 32.3 RDW 15.5 H RDW Differential 46.2 H Plt Count 298 MPV 9.4 Immature Gran % (Auto) 0.300 Neut % (Auto) 76.3 H Lymph % (Auto) 17.2 L [place] % (Auto) 5.3 Eos % (Auto) 0.8 Baso % (Auto) 0.1 Absolute Neuts (auto) 8.6 H Absolute Lymphs (auto) 1.93 Total Counted Not Reportable Vag Amniotic Fld Detect POSITIVE H Blood Type O POSITIVE Antibody Screen NEGATIVE Medical Necessity - Tobacco Use Smoking Status: Former smoker Assessment/Plan All Active Problems (Last Reviewed 07/31/18 @ 13:47 by Vandana Diaz) RUQ abdominal pain (Acute) False labor (Acute) Polyhydramnios affecting (Acute) Obesity affecting (Acute) History of pre-eclampsia in prior , currently in first trimester (Acute) Supervision of high-risk (Acute) GBS (group B streptococcus) UTI complicating (Acute) (Acute) screening encounter (Resolved) BMI greater than 40 (Resolved) Status post fall (Resolved) s/p PPD # 1 1. routine post delivery care 2. breast feeding- support given 3. rh positive 4. rubella immune
--- NOTE | 2018-08-02 11:09 | DCINST_ITS ---
Discharge Diet: No Restrictions Discharge Activity: Return to Normal Activity, May not drive while taking narcotic pain medications., May Shower May resume sexual activity in: 4-6 weeks Call your doctor if your incision/area has: Continuous Slow Oozing, Sudden Increased Bleeding, Increased Pain/ Swelling, Increased Redness, Foul Smelling Discharge Additional Instructions: If you experience any of the following, contact your healthcare provider. * Bleeding that soaks a pad every hour for 2 hours * Fever 100.4 or higher * Unrelieved incision or abdominal pain * Swelling, redness, discharge or bleeding from your incision or episiotomy site * Your incision begins to separate * Problems urinating (including inability to urinate or burning while urinating). * Visual changes * Severe headache * Flu-like symptoms * Pain or redness in one of both of your breasts * Pain, warmth, tenderness or swelling in your legs, especially the calf area * Frequent nausea and vomiting * Symptoms of depression or anxiety If you experience any of the following, call 911 or go to the nearest Emergency Room. * Chest pain * Problems breathing * Seizure activity * Partial or complete paralysis of a body part, slurred speech, weakness or drooping of the face, or a sudden inability to walk or hold your balance Allergies/Adverse Reactions: Allergies metoprolol Allergy (Severe, Verified 08/01/18 12:32) Hives acetaminophen [From Percocet] Allergy (Intermediate, Verified 08/01/18 12:32) Hives hydrocodone bitartrate [From Vicodin] Allergy (Intermediate, Verified 08/01/18 12:31) Hives latex Allergy (Verified 07/31/18 13:47) Rash oxycodone HCl [From Percocet] Allergy (Verified 07/31/18 13:47) Hives Medications to take at Discharge vitamin#30 30 mg iron-10 mg iron-folic acid 1 mg-omg3 capsule 1 cap PO DAILY cap 06/05/18 Please Follow Up With: Julissa Doherty MD - [phone] When: Call to make an appointment with your doctor in 6 weeks. If you had elevated Blood pressure or 4th degree laceration you will need to be seen in 2 weeks. Primary Care Physician: Asif Tim MD [Primary Care Provider] - Test Results: Test results from this visit will be discussed in further detail at your follow- up appointment, if applicable.
[2018-08-02 12:20] VITALS: BP 108/67; PULSE 80; RESP 16; TEMP 37
[2018-08-02 16:55] VITALS: BP 120/79; PULSE 84; RESP 18; TEMP 37.2
[2018-08-02] MEDS: Acetaminophen 500 MG Tablet 1000 MG PO (18:57)
[2018-08-02 20:01] VITALS: BP 112/74; PULSE 77; RESP 18; TEMP 36.4
[2018-08-03 01:49] VITALS: BP 97/51; PULSE 76; RESP 18; TEMP 36.4
--- NOTE | 2018-08-03 07:44 | PN.OBGYN_ITS ---
Subjective: doing well no complaints pain controlled no CP SOB N V ambulating well tolerating po lochia moderate, going well - Physical Exam General: Alert, Oriented x3 Abdomen: Soft, Non Tender, Non-Distended, - - FF below U Vital Signs Temp Pulse Resp BP 97.6 F L 76 18 97/51 L 08/03/18 01:49 08/03/18 01:49 08/03/18 01:49 08/03/18 01:49 Oxygen Delivery Method Room Air Weight: 337 lb 6 oz Body Mass Index (BMI) 51.2 Intake and Output for Last 24 Hours 08/01/18 08/02/18 08/03/18 23:59 23:59 23:59 Intake Total 100 / 100 Output Total 200 / 200 Balance -100 / -100 Medical Necessity - Tobacco Use Smoking Status: Former smoker Assessment/Plan All Active Problems (Last Reviewed 07/31/18 @ 13:47 by Vandana Diaz) RUQ abdominal pain (Acute) False labor (Acute) Polyhydramnios affecting (Acute) Obesity affecting (Acute) History of pre-eclampsia in prior , currently in first trimest er (Acute) Supervision of high-risk (Acute) GBS (group B streptococcus) UTI complicating (Acute) (Acute) screening encounter (Resolved) BMI greater than 40 (Resolved) Status post fall (Resolved) s/p PPD # 2 1. routine post delivery care 2. breast feeding- support given 3. rh positive 4. rubella immune 5. home today 6. Rx carolann for contraception and instructed to start 4 wk pp.
[2018-08-03 08:00] VITALS: BP 116/83; PULSE 75; RESP 14; TEMP 36.6
== END 2018-08-03 09:20 | disposition home or self-care (01) | DRG 560 ==
LOC: WPOUT 11:17 → WP 11:17
PROVIDERS: Admitting Provider Obstetrics & Gynecology; Family Provider Family Medicine; PCP Family Medicine; Referring Provider Obstetrics & Gynecology; Visit Provider Obstetrics & Gynecology
DX: O40.3XX0 Polyhydramnios, third trimester, not applicable or unspecified (principal); O69.81X0 Labor and delivery complicated by cord around neck, without compression, not applicable or unspecified; O99.214 Obesity complicating childbirth; R10.11 Right upper quadrant pain; Z87.891 Personal history of nicotine dependence; Z3A.39 39 weeks gestation of pregnancy; Z37.0 Single live birth
CPT/HCPCS: 36415; 59025; 59050; 80053; 84112; 85025; 86850; 86900; 99218; J7120; G0378

== ENCOUNTER → 2018-11-27 12:12 | Outpatient (CLI) | payer MEDICAID, SELFPAY ==
[2018-11-27 13:49] LABS: hCG Titer Quant., Serum 11336 mIU/mL (1-3)
== END ==
PROVIDERS: Family Provider Family Medicine; PCP Family Medicine; Referring Provider Obstetrics & Gynecology; Visit Provider Obstetrics & Gynecology
DX: N91.2 Amenorrhea, unspecified (principal)
CPT/HCPCS: 36415; 84702

== ENCOUNTER → 2018-11-29 11:24 | Outpatient (CLI) | payer MEDICAID, SELFPAY ==
[2018-11-29 12:45] LABS: hCG Titer Quant., Serum 14982 mIU/mL (1-3)
== END ==
PROVIDERS: Family Provider Family Medicine; PCP Family Medicine; Referring Provider Obstetrics & Gynecology; Visit Provider Obstetrics & Gynecology
DX: N91.2 Amenorrhea, unspecified (principal)
CPT/HCPCS: 36415; 84702

== ENCOUNTER → 2018-12-01 10:26 | Outpatient (CLI) | payer MEDICAID, SELFPAY | PROVIDERS: Family Provider Family Medicine; PCP Family Medicine; Referring Provider Obstetrics & Gynecology; Visit Provider Obstetrics & Gynecology | DX: O20.0 Threatened abortion (principal); Z3A.00 Weeks of gestation of pregnancy not specified | CPT/HCPCS: 36415; 84702 ==

== ENCOUNTER → 2018-12-04 12:01 | Outpatient (CLI) | payer MEDICAID, SELFPAY ==
--- NOTE | 2018-12-04 12:03 | US_ITS ---
HISTORY: Gestational age assessment. Dating. Unknown LMP. 61 images. No comparison imaging this . Endovaginal imaging only. Findings: Within the uterine fundus there is a double decidual reaction, gestational sac, fetus, and a yolk sac. The cervix is closed. The uterus measures 7.5 x 10.1 x 7.2 cm. A physiologic amount of free fluid is present. The right ovary measures 2.3 x 2.6 x 1.6 cm. Color Doppler image chest probable flow to the right ovarian parenchyma. Pulse-wave Doppler imaging shows arterial flow, but this may be within the periphery or outside of the ovarian parenchyma, and is nondiagnostic. The left ovary measures 1.3 x 2.2 x 1.1 cm. Contains follicles. Color and pulse-wave Doppler imaging are nondiagnostic for flow in the left ovary. Outer to outer yolk sac diameter is 6 mm. [place]-rump length is 9 mm. heart motion by M-mode imaging since that 117 bpm. Mean sac diameter is 17 mm. US/Init OB < 14Wks US IMPRESSION: SLIUP. EGA 7W0D. LENNOX 07/23/2019 at 0400 Reported and signed by: Rolo Hernandez MD Electronically Signed: Rolo Hernandez MD at 3:59 EDT Tel , Service support ,
== END ==
PROVIDERS: Family Provider Family Medicine; PCP Family Medicine; Referring Provider Obstetrics & Gynecology; Visit Provider Obstetrics & Gynecology
DX: Z78.9 Other specified health status (principal)
CPT/HCPCS: 76801

== ENCOUNTER → 2018-12-12 16:56 | Outpatient (CLI) | payer MEDICAID, SELFPAY ==
[2018-12-12 11:04] VITALS: BMI 51.2
== END ==
PROVIDERS: Family Provider Family Medicine; PCP Family Medicine; Referring Provider Nurse Practitioner Women's Health; Visit Provider Nurse Practitioner Women's Health
DX: O23.41 Unspecified infection of urinary tract in pregnancy, first trimester (principal); Z3A.00 Weeks of gestation of pregnancy not specified
CPT/HCPCS: 87086; 87088

== ENCOUNTER → 2018-12-14 16:40 | Outpatient (CLI) | payer MEDICAID, SELFPAY ==
[2018-12-14 13:06] VITALS: BMI 51.2
== END ==
PROVIDERS: Family Provider Family Medicine; PCP Family Medicine; Referring Provider Nurse Practitioner Women's Health; Visit Provider Nurse Practitioner Women's Health
DX: O20.9 Hemorrhage in early pregnancy, unspecified (principal); Z3A.00 Weeks of gestation of pregnancy not specified
CPT/HCPCS: 87070; 87205

== ENCOUNTER → 2018-12-27 12:20 | Outpatient (CLI) | payer MEDICAID, SELFPAY ==
[2018-12-27 11:50] VITALS: BMI 51.2
[2018-12-27 13:33] LABS: Absolute Lymphocyte Count 1.55 X10^3/uL (0.83-4.51); Absolute Neutrophil Count 5.8 X10^3/uL (2.0-7.7); Basophil# 0.01 X10^3/uL; Basophil% 0.1 % (0-1); Eosinophil# 0.08 X10^3/uL; Eosinophils% 1.1 % (0-5); Hematocrit 38.4 % (37-47); Hemoglobin 12.3 g/dL (12.0-15.0); Lymphocyte # 1.55 X10^3/ul (4.0); Lymphocyte % 20.4 % (19-41); Mean Corpuscular Hgb 26.6 pg (27.0-32.0); Mean Corpuscular Volume 82.9 fL (81-99); Mean Platelet Vol. 9.7 fl (6.2-12.0); Monocyte# 0.18 X10^3/uL; Monocyte% 2.4 % (0-10); NRBC Flagged by Analyzer 0 % (0-5); Neutrophil # 5.75 X10^3/uL (2.7-7.7); Neutrophil % 75.9 % (47-70); Platelet Count 297 K/mm3 (150-450); RBC Distribution Width CV 15.5 % (11.6-14.6); RBC Distribution Width SD 46.3 fl (35.1-43.9); Red Blood Count 4.63 M/mm3 (4.2-5.4); White Blood Count 7.6 K/mm3 (4.4-11.0)
[2018-12-27 13:50] LABS: Glucose Challenge Gest 1H 50g 120 mg/dL (70-140)
[2018-12-27 14:43] LABS: HIV - WCH Non-Reactive (Nonreactive); Rubella IgG 211.7 IU/mL
[2018-12-27 21:25] LABS: Chlamydia Trachomatis by PCR Negative (Negative); Neisserai gonorrhoeae by PCR Negative (Negative); Probe Check PASS; Sample Adequacy Control PASS; Specimen Processing Control PASS
[2018-12-29 01:39] LABS: Rapid Plasmin Reagin (RPR) NONREACTIVE (NONREACTIVE)
== END ==
PROVIDERS: Family Provider Family Medicine; PCP Family Medicine; Referring Provider Obstetrics & Gynecology; Visit Provider Nurse Practitioner Women's Health
DX: O09.899 Supervision of other high risk pregnancies, unspecified trimester (principal); Z3A.00 Weeks of gestation of pregnancy not specified
CPT/HCPCS: 36415; 82950; 85025; 86592; 86703; 86762; 86850; 86900; 86901; 87086; 87088; 87491; 87591

== ENCOUNTER → 2019-01-23 10:47 | Outpatient (CLI) | payer MEDICAID, SELFPAY ==
[2019-01-23 10:47] VITALS: BMI 51.7
== END ==
PROVIDERS: Family Provider Family Medicine; PCP Family Medicine; Referring Provider Nurse Practitioner Women's Health; Visit Provider Nurse Practitioner Women's Health
DX: Z34.82 Encounter for supervision of other normal pregnancy, second trimester (principal)
CPT/HCPCS: 36415; 87086; 87088

== ENCOUNTER → 2019-02-13 09:49 | Outpatient (CLI) | payer MEDICAID, SELFPAY ==
[2019-02-13 08:27] VITALS: BMI 51.2
[2019-02-13 09:37] VITALS: BMI 51.2
--- NOTE | 2019-02-13 09:51 | US_ITS ---
STUDY: SECOND AND THIRD TRIMESTER OBSTETRICAL ULTRASOUND - LIMITED REASON FOR EXAM: Female, 28 years old , vaginal bleeding LMP: 10/13/2018 PRIOR ULTRASOUND: 12/04/2018 TECHNIQUE: Transabdominal TECHNICAL QUALITY: Adequate. FINDINGS: There is a single intrauterine fetus. The fetus is in a cephalic presentation. There is demonstrated cardiac activity with a heart rate of 149 bpm. There is a normal amniotic fluid volume. The largest amniotic fluid pocket measures 5.2 cm. The amniotic fluid index (EUGENIO) is cm. The placenta is posterior in location and is not low lying. There are Grade 0 placental changes. The cervix measures 4.1 cm in length. BIOMETRY: BPD: 4.0 cm: 18 weeks, 3 days HC: 14.7 cm: 18 weeks, 0 days AC: 12.1 cm: 17 weeks, 6 days FL: 2.5 cm: 17 weeks, 6 days Age by LMP: 17 weeks, 4 days. LENNOX by LMP: 07/20/2019. age by current US: 18 weeks, 1 days. LENNOX by current US: 07/16/2019. Estimated weight: 211 grams, +/- 31 grams, percentile. Gender: US/OB Limited With Biometrics IMPRESSION: Living intrauterine of 18 weeks 1 day as described above. Electronically Signed: Fox Jackson MD at 10:52 EDT Tel , Service support ,
== END ==
PROVIDERS: Family Provider Family Medicine; PCP Family Medicine; Referring Provider Nurse Practitioner Women's Health; Visit Provider Nurse Practitioner Women's Health
DX: O41.8X10 Other specified disorders of amniotic fluid and membranes, first trimester, not applicable or unspecified (principal); O46.8X1 Other antepartum hemorrhage, first trimester; O23.40 Unspecified infection of urinary tract in pregnancy, unspecified trimester; Z3A.00 Weeks of gestation of pregnancy not specified
CPT/HCPCS: 76816; 87086; 87088

== ENCOUNTER 2019-04-09 23:00 | Outpatient (CLI) | payer MEDICAID, SELFPAY ==
[2019-03-30 14:20] VITALS: BMI 51.2
[2019-04-09 23:42] VITALS: BMI 53.6
--- NOTE | 2019-04-09 23:47 | NURSING ---
Pt notes history of epigastric pain this and notes Dr. Doherty aware and having scan for gallbladder.
[2019-04-10 00:19] LABS: Color, Urine Red (Yellow); Glucose, Dipstick Normal (Normal); Ketone-Dipstick 5 mg/dl (Negative); Leukocyte Esterase-Dipstick 100 /ul (Negative); Nitrite-Dipstick Negative (Negative); Occult Blood-Urine 250 /ul (Negative); Protein-Dipstick 30 mg/dl (Negative); Urine Bilirubin Dipstick Negative (Negative); Urine Clarity Cloudy (Clear); Urine Urobilinogen Normal (Normal)
--- NOTE | 2019-04-10 01:05 | NURSING ---
pt scheduled to have scan of gallbladder on 04/21/19. Dr. Doherty aware of epigastric pain, not new for this pt.
[2019-04-10] MEDS: Cephalexin 500 MG Capsule PO (01:16)
[2019-04-10 01:38] VITALS: RESP 18
--- NOTE | 2019-04-13 03:38 | OB.TRI.PN ---
Progress Notes Date of Service: 04/09/19 Progress Note: vaginal bleeding and no cervical dilation reassuring status seen heart tones present Vaginal bleeding in DC home bleeding precautions Laboratory Studies: Laboratory Tests 04/10/19 Range/Units 00:00 Urine Color Red (Yellow) Urine Clarity Cloudy (Clear) Urine pH 6.0 (5.0 - 8.0) Ur Specific [place] 1.020 (1.002-1.030) Urine Protein 30 H (Negative) mg/dl Urine Glucose (UA) Normal (Normal) mg/dl Urine Ketones 5 H (Negative) mg/dl Urine Occult Blood 250 H (Negative) /ul Urine Nitrite Negative (Negative) Urine Bilirubin Negative (Negative) mg/dL Urine Urobilinogen Normal (Normal) mg/dl Ur Leukocyte Esterase 100 H (Negative) /ul Multi Select Codes - Urinary/Genital Urinary/Genital CPT Codes: Other Procedure See Report - no charge
== END 2019-04-10 01:20 | disposition home or self-care (01) ==
LOC: WPOUT 23:37 → WP 04-10 09:49
PROVIDERS: Family Provider Family Medicine; PCP Family Medicine; Referring Provider Obstetrics & Gynecology; Visit Provider Obstetrics & Gynecology
DX: O46.90 Antepartum hemorrhage, unspecified, unspecified trimester (principal); Z3A.00 Weeks of gestation of pregnancy not specified
CPT/HCPCS: 59025; 59050; 81002; 99218; G0378

== ENCOUNTER → 2019-04-11 16:46 | Outpatient (CLI) | payer MEDICAID, SELFPAY ==
[2019-04-09 23:42] VITALS: BMI 53.6
--- NOTE | 2019-04-11 16:48 | US_ITS ---
STUDY: SECOND AND THIRD TRIMESTER OBSTETRICAL ULTRASOUND REASON FOR EXAM: Female, 28 years old bleeding LMP: TECHNIQUE: Transabdominal and transvaginal TECHNICAL QUALITY: Adequate. PRIOR ULTRASOUND: None. FINDINGS: There is a single intrauterine fetus. The fetus is in a cephalic presentation. There is demonstrated cardiac activity with a heart rate of 139 bpm. There is a normal amniotic fluid volume. The largest amniotic fluid pocket measures 7.6 x 6.2 cm. The amniotic fluid index (EUGENIO) is 22.71 cm. The placenta is posterior and fundal There are Grade 1 placental changes. The cervix measures 3.8 cm in length. The bilateral adnexal regions are normal. BIOMETRY: BPD: 6.83 cm: 27 weeks, 4 days HC: 25.92 cm: 28 weeks, 2 days AC: 21.7 cm: 26 weeks, 2 days FL: 4.64 cm: 25 weeks, 3 days CI: 0.79 FL/BPD: 0.68 FL/HC: FL/AC: 0.21 HC/AC: 1.19 age by current US: 27 weeks, 0 days. LENNOX by current US: July 11, 2019. Estimated weight: 902 grams, +/- 132 grams, 60 %. Age by LMP: 25 weeks, 5 days. LENNOX by LMP: July 20, 2019. ANATOMY: Not studied at this time. US/OB Limited With Biometrics IMPRESSION: Viable intrauterine gestation with fetus approximately 27 weeks gestational age. No significant abnormalities No evidence for placental abruption or previa Pending Final Proof Editing
== END ==
PROVIDERS: Family Provider Family Medicine; PCP Family Medicine; Referring Provider Nurse Practitioner Women's Health; Visit Provider Nurse Practitioner Women's Health
DX: O46.92 Antepartum hemorrhage, unspecified, second trimester (principal); Z3A.27 27 weeks gestation of pregnancy
CPT/HCPCS: 76816; 76817

== ENCOUNTER → 2019-04-24 14:37 | Outpatient (CLI) | payer MEDICAID, SELFPAY ==
[2019-04-24 14:09] VITALS: BMI 53.6
[2019-04-24 15:11] LABS: Absolute Lymphocyte Count 2.04 X10^3/uL (0.83-4.51); Absolute Neutrophil Count 9.1 X10^3/uL (2.0-7.7); Basophil# 0.02 X10^3/uL; Basophil% 0.2 % (0-1); Eosinophil# 0.15 X10^3/uL; Eosinophils% 1.3 % (0-5); Hemoglobin 11.6 g/dL (12.0-15.0); Lymphocyte # 2.04 X10^3/ul (4.0); Lymphocyte % 17.5 % (19-41); Mean Corp Hgb Conc 32.2 g/dL (32-36); Mean Corpuscular Hgb 26.7 pg (27.0-32.0); Mean Corpuscular Volume 82.9 fL (81-99); Mean Platelet Vol. 9.2 fl (6.2-12.0); Monocyte# 0.33 X10^3/uL; Monocyte% 2.8 % (0-10); NRBC Flagged by Analyzer 0 % (0-5); Neutrophil # 9.08 X10^3/uL (2.7-7.7); Neutrophil % 77.9 % (47-70); Platelet Count 280 K/mm3 (150-450); RBC Distribution Width CV 15.3 % (11.6-14.6); RBC Distribution Width SD 46.2 fl (35.1-43.9); Red Blood Count 4.34 M/mm3 (4.2-5.4); White Blood Count 11.7 K/mm3 (4.4-11.0)
[2019-04-24 15:38] LABS: Glucose Challenge Gest 1H 50g 115 mg/dL (70-140)
[2019-04-25 09:10] LABS: Hepatitis B Surface Antigen Non-Reactive (Nonreactive)
== END ==
PROVIDERS: Family Provider Family Medicine; PCP Family Medicine; Referring Provider Obstetrics & Gynecology; Visit Provider Obstetrics & Gynecology
DX: O09.899 Supervision of other high risk pregnancies, unspecified trimester (principal); O23.41 Unspecified infection of urinary tract in pregnancy, first trimester; Z3A.27 27 weeks gestation of pregnancy
CPT/HCPCS: 36415; 82950; 85025; 87086; 87088; 87340

== ENCOUNTER → 2019-06-29 | Outpatient (CLI) | payer MEDICAID, SELFPAY ==
[2019-06-29 15:34] VITALS: BMI 53.6
== END | disposition home or self-care (01) ==
LOC: LABSPEC 16:39
PROVIDERS: PCP Family Medicine; Referring Provider Obstetrics & Gynecology; Visit Provider Obstetrics & Gynecology
DX: O09.899 Supervision of other high risk pregnancies, unspecified trimester (principal); Z3A.00 Weeks of gestation of pregnancy not specified
CPT/HCPCS: 87081

== ENCOUNTER 2019-07-13 15:00 | Outpatient (CLI) | payer MEDICAID, SELFPAY ==
[2019-07-06 15:42] VITALS: BMI 53.6
[2019-07-13 15:11] VITALS: BMI 53.8
--- NOTE | 2019-07-15 08:34 | OB.TRI.PN_ITS ---
Progress Notes Date of Service: 07/13/19 Progress Note: Patient presents for triage evaluation secondary to morbid obesity in FHT: 120 moderate variability reactive no decelerations category I tracing [place]: Irregular contractions Assessment and plan: Morbid obesity in reactive NST, reassuring mate rnal and status patient discharged to home to follow-up as scheduled in the office. See problem list details for additional plan information. Multi Select Codes - Urinary/Genital Urinary/Genital CPT Codes: 52310-97 non-stress test Interp
== END 2019-07-13 16:00 | disposition home or self-care (01) ==
LOC: WPOUT 15:06 → WP 15:07
PROVIDERS: PCP Family Medicine; Referring Provider Obstetrics & Gynecology; Visit Provider Obstetrics & Gynecology
DX: O99.210 Obesity complicating pregnancy, unspecified trimester (principal); E66.01 Morbid (severe) obesity due to excess calories; Z3A.00 Weeks of gestation of pregnancy not specified
CPT/HCPCS: 59025; 59050; 99218; G0378

== ENCOUNTER 2019-07-18 18:50 | Inpatient (IN) | payer MEDICAID, SELFPAY ==
[2019-07-16 10:53] VITALS: BMI 53.8
[2019-07-18] VITALS (10 sets, daily range): BP systolic 116–143; BP diastolic 58–79; PULSE 85–99; TEMP 36.8–37.2; O2SAT 96–98; BMI 54.1
[2019-07-18] MEDS: Lactated Ringers 1,000 ML 200 ML IV (19:40)
[2019-07-18 19:54] LABS: Absolute Neutrophil Count 7.5 X10^3/uL (2.0-7.7); Basophil# 0.01 X10^3/uL; Basophil% 0.1 % (0-1); Eosinophil# 0.07 X10^3/uL; Eosinophils% 0.7 % (0-5); Hematocrit 36.4 % (37-47); Hemoglobin 11.8 g/dL (12.0-15.0); Lymphocyte % 20.7 % (19-41); Mean Corp Hgb Conc 32.4 g/dL (32-36); Mean Corpuscular Hgb 26.1 pg (27.0-32.0); Mean Corpuscular Volume 80.5 fL (81-99); Mean Platelet Vol. 9.9 fl (6.2-12.0); Monocyte# 0.43 X10^3/uL; Monocyte% 4.2 % (0-10); NRBC Flagged by Analyzer 0 % (0-5); Neutrophil % 73.8 % (47-70); Platelet Count 287 K/mm3 (150-450); RBC Distribution Width CV 15.4 % (11.6-14.6); RBC Distribution Width SD 44.5 fl (35.1-43.9); Red Blood Count 4.52 M/mm3 (4.2-5.4); White Blood Count 10.2 K/mm3 (4.4-11.0)
[2019-07-18] MEDS: miSOPROStol 200 MCG Tablet 25 MCG PO (20:35)
[2019-07-19] VITALS (21 sets, daily range): BP systolic 109–156; BP diastolic 58–84; PULSE 67–97; RESP 16; TEMP 36.4–37.1; O2SAT 84–98
[2019-07-19] MEDS: miSOPROStol 200 MCG Tablet 50 MCG PO (00:41)
--- NOTE | 2019-07-19 04:03 | HP.PCM_ITS ---
- Problem List (1) Sterilization Status: Acute Comment: plan laparoscopic BS at 6 weeks PP (2) Polyhydramnios affecting Status: Acute Comment: weekly nsts plan IOL 39 weeks (3) Varices of umbilical cord Status: Acute (4) Depression affecting Status: Acute Comment: celexa, encouraged counseling (5) Status: Acute Qualifiers: Comment: NIPT low risk. CARRIER TESTING NEGATIVE. ntd screening declined.anatomy reviewed (6) Supervision of other high risk , antepartum Status: Acute Comment: PRR LENNOX 07/23/19 boy PC: medardo herrera cameron, natalie Spouse: sadie (7) Short interval between pregnancies affecting , antepartum Status: Acute (8) UTI in Status: Acute Qualifiers: Comment: 12/12 ampicillin repeat culture negative (9) Obesity affecting Status: Acute Qualifiers: Comment: 1 tm glucola normal, growth us q 4 weeks after 32 weeks and weekly nst (10) History of pre-eclampsia in prior , currently in first trimester Status: Acute Comment: baseline labs nl, baby asa at 12 weeks History Date of Admission: 03/05/17 Final LENNOX: 07/23/19 Gestational age: 39 Weeks and 3 Days History of this : This is a 29 year-old, at 39 weeks gestational age presents for induction of labor secondary to polyhydramnios and decreased movement. Patient has had a complicated by a short interpregnancy interval, morbid obesity, and polyhydramnios. she has had reassuring testing. She denies any vaginal bleeding or loss of fluid and denies any regular contractions. Medical History: Medical History (Last Reviewed 07/16/19 @ 10:52 by Vandana Diaz) History of pre-eclampsia Z87.59 Z34.90 SOB (shortness of breath) R06.02 Shoulder pain M25.519 Surgical History: Surgical History (Last Reviewed 07/16/19 @ 10:52 by Vandana Diaz) History of foot surgery Z98.890 History of tonsillectomy Z98.890, Z90.89 Hx LEEP (loop electrosurgical excision procedure), cervix, O34.40, Z98.890 Allergies metoprolol Allergy (Severe, Verified 07/18/19 20:14) Hives heart races oxycodone HCl [From Percocet] Allergy (Severe, Verified 07/18/19 20:14) Hives heart races hydrocodone bitartrate [From Vicodin] Allergy (Intermediate, Verified 07/16/19 10:53) Hives latex Allergy (Mild, Verified 07/18/19 20:14) Rash Home Medications: Home Medications vitamin#30 30 mg iron-10 mg iron-folic acid 1 mg-omg3 capsule 1 cap PO DAILY cap 06/05/18 Smoking Status: Former smoker Alcohol: None Number of Fetus(es): 1 NST - FHR Rate Baby A Baseline: 140 Variability:: Moderate Accelerations:: 15 x 15 Decelerations:: None NST Reactive:: Yes FHR Category:: Category I Uterine Activity:: no regular History Past Pregnancies: Past Pregnancies Pregancy History 7 Elective abortions Hx Para 4 Spontaneous abortions Hx # Term Pregnancies Ectopic pregnancies Hx # Pregnancies Multiple births # of living children 4 Past Pregnancies Del. Date Name GA/Weeks Outcome Route Bth Weight Infant Gen Labor Lgth Anesthesia Del Locatn Provider FOB Unknown Angus 2008 40 8pounds 3 ounce epidural Unknown Medardo 2010 39 live - full term 7 lb 03/05/17 Doreen 39 8 lbs Female [facility] S EM 08/01/18 Stu 39 live - full term NS VD Female spinal [facility] ANNA Delivery Date: No notes to display Delivery Date: No notes to display Delivery Date: 03/05/17 No notes to display Delivery Date: 08/01/18 On 12/27/18 @ 11:31 Vandana Diaz polyhydramnios Labs: Mom's Labs & Results 07/18/19 07/18/19 19:40 19:40 WBC 10.2 RBC 4.52 Hgb 11.8 L Hct 36.4 L MCV 80.5 L MCH 26.1 L MCHC 32.4 RDW Std Deviation 44.5 H RDW Coeff of [place] 15.4 H Plt Count 287 MPV 9.9 Immature Gran % (Auto) 0.500 Neut % (Auto) 73.8 H Lymph % (Auto) 20.7 [place] % (Auto) 4.2 Eos % (Auto) 0.7 Baso % (Auto) 0.1 Absolute Neuts (auto) 7.5 Absolute Lymphs (auto) 2.10 Nucleated RBC % 0 Blood Type O POSITIVE Antibody Screen NEGATIVE Course Did the patient receive Yes care? Labs Blood Type: O RH: POSITIVE RPR/VDRL/Syphilis Nonreactive Rubella status Immune HbSAg Negative Date Done: 04/24/19 Chlamydia Negative Gonorrhea Negative HIV/AIDS Non-Reactive Group B Strep: Negative Current Obstetrical History Gestational Diabetes No Incompetent Cervix No Infertility No IUGR No Macrosomia No Hypertension/Pre-eclampsia No Placenta Previa/Abruption No PTL/PROM No Uterine anomaly No Oligohydramnios No Polyhydramnios No Multiple gestation No Past Medical History Asthma No Diabetes No Hypertension No Heart disease No Mitral valve prolapse No Neurologic/Seizure disorder/ Yes: history of migraines Migraines Kidney disease No Liver disease No Varicosities No Clotting disorders/Hx of DVT No Thyroid Dysfunction No Other medical diseases No Psychiatric disorders No: depression/anxiety Major trauma Yes: concussion Abnormal PAP smear Yes: 2016-leep procedure Sleep apnea No Mammogram in the last 2 years No Medications Taken During Dose/Freq.: [Pain] Tylenol #3 Last Date/Time of Medication June 2019 Taken: [Pain] Reason for taking medication [ pain with sinus infection Pain] Social History Marital Status: SINGLE Alleged father Phillip Junior Hx Smoking Yes Smoking Status Former smoker Expected Infant Delivery Method: Spontaneous Vaginal Review of Systems Constitutional: Denies: Fever, Malaise Eyes: Denies: Blurred vision, Vision Change HEENT: Denies: Head Aches, Visual Changes Cardiovascular: Denies: Chest Pain, Palpitations Respiratory: Denies: Cough, Shortness of Breath, Wheezing Gastrointestinal: Denies: Abdominal Pain, Diarrhea, Nausea, Vomiting Genitourinary: Denies: Dysuria, Hematuria Musculoskeletal: Denies: Joint Pain, Muscle pain Skin: Denies: Lesions, Rash Neurological: Denies: Blurred vision, Focal weakness, Headaches Psychiatric: Denies: Anxiety, Depression Endocrine: Denies: Heat/ Cold Intolerance Hematologic/ Lymphatic: Denies: Easy Bruising, Easy Bleeding Physical Exam Vitals: Vital Signs Temp Pulse BP Pulse Ox 97.6 F L 69 114/75 97 07/19/19 03:09 07/19/19 03:11 07/19/19 03:11 07/19/19 03:09 General: Alert, Cooperative, No apparent distress HEENT: Atraumatic, Normocephalic. Negative for: Thyromegaly, Lymphadenopathy Cardiovascular: Regular rate Lungs: Normal air movement Abdomen: Soft, Non Tender, Gravid Neurological: Deep Tendon Reflexes 2+/4 and Symmetrical, Neuro grossly intact. Negative for: Clonus ME[employer]VER: Normal external genitalia. Negative for: Vulvar lesions Estimated gestational size: Appropriate for gestational size Presentation: Cephalic Cervix Dilation (cm): 2 Station: -3 Assessment/Plan All Active Problems (Last Reviewed 07/16/19 @ 10:52 by Vandana Diaz) Sterilization (Acute) Polyhydramnios affecting (Acute) Varices of umbilical cord (Acute) Depression affecting (Acute) (Acute) Supervision of other high risk , antepartum (Acute) Short interval between pregnancies affecting , antepartum (Acute) UTI in (Acute) Obesity affecting (Acute) History of pre-eclampsia in prior , currently in first trimester (Acute) screening encounter (Resolved) BMI greater than 40 (Resolved) Status post fall (Resolved) Subchorionic hemorrhage in first trimester (Resolved) URI, acute (Resolved) This is a 29 year-old, at 39 weeks gestational age presents Iol polyhydramnios and decreased movememnt. Patient presents IOL, plan management for , cytotec then pitocin/AROM . Pain management: prefers minimal intervention. GBS negative. Management of any complications: short interval, polyhydramnios I have reviewed the [facility] and made any clinically relevant updates.
[2019-07-19] MEDS: Oxytocin 30 units/NS 500 ml 30 UNITS/500 ML IV.SOLN IV (07:15)
[2019-07-19] MEDS: Lactated Ringers 1,000 ML 200 ML IV (10:45)
[2019-07-19] MEDS: Oxytocin 30 units/NS 500 ml 30 UNITS/500 ML IV.SOLN 334 UNITS IV (13:15)
--- NOTE | 2019-07-19 13:22 | OP.PCM_ITS ---
Problem List (1) Sterilization Status: Acute Comment: plan laparoscopic BS at 6 weeks PP (2) Polyhydramnios affecting Status: Acute Comment: weekly nsts plan IOL 39 weeks (3) Varices of umbilical cord Status: Acute (4) Depression affecting Status: Acute Comment: celexa, encouraged counseling (5) Status: Acute Qualifiers: Comment: NIPT low risk. CARRIER TESTING NEGATIVE. ntd screening declined.anatomy reviewed (6) Supervision of other high risk , antepartum Status: Acute Comment: PRR LENNOX 07/23/19 boy PC: medardo herrera cameron, natalie Spouse: sadie (7) Short interval between pregnancies affecting , antepartum Status: Acute (8) UTI in Status: Acute Qualifiers: Comment: 12/12 ampicillin repeat culture negative (9) Obesity affecting Status: Acute Qualifiers: Comment: 1 tm glucola normal, growth us q 4 weeks after 32 weeks and weekly nst (10) History of pre-eclampsia in prior , currently in first trimester Status: Acute Comment: baseline labs nl, baby asa at 12 weeks Vaginal Delivery Maternal Presentation: Medically Indicated Induction iol polyhydramnios and decreased movement Method of Induction: Pitocin, Cytotec Amniotic Membrane Rupture Type: Artificial Amniotic Fluid Description: Clear Final LENNOX: 07/20/19 Gestational age: 39 Weeks and 6 Days Date of Procedure: 07/19/19 Pre-Operative Diagnosis: iol poly Post-Operative Diagnosis: same Surgery/ Procedure Performed: Spontaneous Vaginal Delivery Type of Anesthesia: Epidural Description of Procedure: Patient began pushing and delivered the head in the ОЛЬГА presentation. The head was delivered atraumatically a loose nuchal cord x1 was identified and the was delivered through this. At first the shoulders were not delivering due to poor maternal expulsive effort, with further coaching and repositioning maternal legs less than 30 seconds past and the shoulders were rotated and the infant's right shoulder was delivered first anteriorly followed by the posterior and the rest the infant delivered. the was placed on the maternal abdomen. Delayed cord clamping was employed for approximately 60 seconds. Cord was clamped and cut and gentle traction was applied to the cord and the placenta delivered spontaneously immediately following it was noted to be intact with three-vessel cord. The perineum and vagina were inspected and noted to have no laceration. EBL was 100 cc. Patient and tolerated delivery well. Presentation: YOSEPH Placental Delivery Description: Spontaneous Placenta Disposition: [facility] Multi Select Codes - Urinary/Genital Urinary/Genital CPT Codes: 16624 Vaginal Delivery+ PP Care([facility])
[2019-07-19] MEDS: Ibuprofen 600 MG Tablet PO ×2 (13:54→21:22)
[2019-07-20] MEDS: Ibuprofen 600 MG Tablet PO (03:41)
[2019-07-20 03:43] VITALS: BP 127/60; PULSE 74; RESP 16; TEMP 36.7
[2019-07-20 08:50] VITALS: BP 120/83; PULSE 81; RESP 18; TEMP 36.3; O2SAT 97
[2019-07-20 13:40] VITALS: BP 111/69; PULSE 72; RESP 18; TEMP 36.6
--- NOTE | 2019-07-20 14:17 | PCM.PN.OB ---
Subjective: doing well no complaints pain controlled no CP SOB N V ambulating well tolerating po lochia moderate, going well - Physical Exam Vitals/I&O's: Vital Signs Temp Pulse Resp BP Pulse Ox 97.4 F L 81 18 120/83 H 97 07/20/19 08:50 07/20/19 08:50 07/20/19 08:50 07/20/19 08:50 07/20/19 08:50 Oxygen Delivery Method Room Air Weight: 356 lb 0.745 oz Body Mass Index (BMI) 54.1 Intake and Output for Last 24 Hours 07/18/19 07/19/19 07/20/19 23:59 23:59 23:59 Intake Total 266.67 / 266.67 1779.53 / 1779.53 Balance 266.67 / 266.67 1779.53 / 1779.53 Current Medications Acetaminophen (Tylenol) 1,000 mg PO Q8H PRN PRN PRN Reason: Pain Score 1-3/10 Bisacodyl (Dulcolax) 10 mg RECTAL UD PRN PRN Reason: If no BM Dibucaine (Dibucaine) 1 applic TOPICAL TID PRN PRN; Protocol PRN Reason: Discomfort Hydrocortisone (Hytone) 1 applic TOPICAL TID PRN PRN; Protocol PRN Reason: Discomfort Ibuprofen (Motrin) 600 mg PO Q6H PRN PRN PRN Reason: Pain Score 1-3/10 Last Admin: 07/20/19 03:41 Dose: 600 mg Documented by: Methylergonovine Maleate (Methergine) 0.2 mg IM X1 PRN PRN Reason: Excess bleeding/uterine atony Ondansetron HCl (Zofran) 4 mg IV Q4H PRN PRN PRN Reason: Nausea Oxycodone HCl (Oxyir) 5 - 10 mg PO Q4H PRN PRN PRN Reason: Pain Score 4-10/10 Senna/Docusate Sodium (Senokot-S, Keyonna-Colace) 1 - 2 tablet PO DAILY PRN PRN PRN Reason: Constipation Simethicone (Mylicon) 80 mg PO PCHS PRN PRN Reason: Indigestion/Stomach pain Sodium Chloride () 5 - 15 ml IV UD PRN PRN Reason: SALINE FLUSH Medical Necessity - Tobacco Use Smoking Status: Former smoker Assessment/Plan All Active Problems (Last Reviewed 07/16/19 @ 10:52 by Vandana Diaz) Sterilization (Acute) Polyhydramnios affecting (Acute) Varices of umbilical cord (Acute) Depression affecting (Acute) (Acute) Supervision of other high risk , antepartum (Acute) Short interval between pregnancies affecting , antepartum (Acute) UTI in (Acute) Obesity affecting (Acute) History of pre-eclampsia in prior , currently in first trimester (Acute) screening encounter (Resolved) BMI greater than 40 (Resolved) Status post fall (Resolved) Subchorionic hemorrhage in first trimester (Resolved) URI, acute (Resolved) s/p PPD # 1 1. routine post delivery care 2. breast feeding- support given 3. rh positive 4. rubella immune
--- NOTE | 2019-07-20 14:20 | DCINST_ITS ---
Discharge Diet: No Restrictions Discharge Activity: Return to Normal Activity, May not drive while taking narcotic pain medications., May Shower May resume sexual activity in: 4-6 weeks Call your doctor if your incision/area has: Continuous Slow Oozing, Sudden Increased Bleeding, Increased Pain/ Swelling, Increased Redness, Foul Smelling Discharge Additional Instructions: If you experience any of the following, contact your healthcare provider. * Bleeding that soaks a pad every hour for 2 hours * Fever 100.4 or higher * Unrelieved incision or abdominal pain * Swelling, redness, discharge or bleeding from your incision or episiotomy site * Your incision begins to separate * Problems urinating (including inability to urinate or burning while urinating). * Visual changes * Severe headache * Flu-like symptoms * Pain or redness in one of both of your breasts * Pain, warmth, tenderness or swelling in your legs, especially the calf area * Frequent nausea and vomiting * Symptoms of depression or anxiety If you experience any of the following, call 911 or go to the nearest Emergency Room. * Chest pain * Problems breathing * Seizure activity * Partial or complete paralysis of a body part, slurred speech, weakness or drooping of the face, or a sudden inability to walk or hold your balance Allergies/Adverse Reactions: Allergies metoprolol Allergy (Severe, Verified 07/18/19 20:14) Hives heart races oxycodone HCl [From Percocet] Allergy (Severe, Verified 07/18/19 20:14) Hives heart races hydrocodone bitartrate [From Vicodin] Allergy (Intermediate, Verified 07/16/19 10:53) Hives latex Allergy (Mild, Verified 07/18/19 20:14) Rash Medications to take at Discharge vitamin#30 30 mg iron-10 mg iron-folic acid 1 mg-omg3 capsule 1 cap PO DAILY cap 06/05/18 Naproxen [Naprosyn] 250 - 500 mg PO Q8H PRN PRN #30 tab 07/20/19 The following prescriptions were given: Naproxen [Naprosyn] 250 - 500 mg PO Q8H PRN PRN #30 tab PRN Reason: MILD PAIN Transmission Status: Pending to [facility] Please Follow Up With: Julissa Doherty MD - [phone] When: Call to make an appointment with your doctor in 6 weeks. If you had elevated Blood pressure or 4th degree laceration you will need to be seen in 2 weeks. Primary Care Physician: Asif Tim MD [Primary Care Provider] - Test Results: Test results from this visit will be discussed in further detail at your follow- up appointment, if applicable.
[2019-07-20 18:16] VITALS: BP 125/87; PULSE 83; RESP 18; TEMP 36.6
== END 2019-07-20 18:25 | disposition home or self-care (01) | DRG 560 ==
PROVIDERS: Admitting Provider Obstetrics & Gynecology; PCP Family Medicine; Referring Provider Obstetrics & Gynecology; Visit Provider Obstetrics & Gynecology
DX: O40.3XX0 Polyhydramnios, third trimester, not applicable or unspecified (principal); O36.8130 Decreased fetal movements, third trimester, not applicable or unspecified; O69.81X0 Labor and delivery complicated by cord around neck, without compression, not applicable or unspecified; O69.89X0 Labor and delivery complicated by other cord complications, not applicable or unspecified; O99.214 Obesity complicating childbirth; E66.01 Morbid (severe) obesity due to excess calories; O99.344 Other mental disorders complicating childbirth; F32.9 Major depressive disorder, single episode, unspecified; Z3A.39 39 weeks gestation of pregnancy; Z37.0 Single live birth; Z87.59 Personal history of other complications of pregnancy, childbirth and the puerperium; Z87.891 Personal history of nicotine dependence
CPT/HCPCS: 59025; 59050; 85025; 86850; 86900; 86901; 99218; J7120; G0378

== ENCOUNTER 2019-09-25 06:02 | Day surgery (SDC) | payer MEDICAID, SELFPAY ==
[2019-09-03 10:19] VITALS: BMI 54.1
[2019-09-18 14:15] VITALS: BMI 54.1
--- NOTE | 2019-09-25 | FALS_PTH ---
PATIENT: KUNAL BURRELL LOC: [facility] U#:[id number] AGE/SX: 29/F ROOM: RE09/25/[address]: Dr. Julissa Doherty MD : 1990 BED: DIS: 09/25/2019 SPEC #: [id number] RECD: 09/25/19 12:42 STATUS: CYNDI REWally #: [id number] ALLA: 09/25/19 00:[address]: Julissa Doherty DEPT: SURGICAL PATHOLOGY RECD BY: Nikhil Conroy ENTERED: 09/25/19 12:42 SP TYPE: FALL TUBES OTHR DR: Dr. Asif Tim MD Tissues: Fallopian tube Procedures: Surgery Specimen Level II HEADER OPERATION: Laparoscopic salpingectomy PRE-OP DIAGNOSIS: Sterilization TISSUE SUBMITTED: Bilateral fallopian tubes MICROSCOPIC DIAGNOSIS Right and left fallopian tubes, bilateral salpingectomies: Complete cross-sections of two fallopian tubes with no pathologic change. AM:shirley 09/26/19 MICROSCOPIC DESCRIPTION Slides are reviewed. GROSS DESCRIPTION Received in fixative is one container labeled with the patient's name and designated bilateral fallopian tubes. The specimen consists of bilateral fallopian tubes including fimbrial ends measuring 7 cm in length and 0.6 cm in diameter and 6.5 cm in length and 0.5 cm in diameter. The fallopian tubes are not identified as right or left. Sections reveal unremarkable cut surfaces. Vegetable [employer] Farm[employer] sections are submitted in two cassettes with each cassette containing one fallopian tube. / LINWOOD:shirley 09/25/19 TC:4 CPT: 38670 x2
[2019-09-25 06:33] LABS: Internal QC Validated? YES +Cl - CLEAR BKGD; Pregnancy, Urine Negative Negative
[2019-09-25 06:36] VITALS: BP 127/80; PULSE 93; RESP 16; TEMP 36.9; O2SAT 99; BMI 53.6
[2019-09-25 06:37] LABS: Hematocrit 41.3 % (37-47); Hemoglobin 12.6 g/dL (12.0-15.0); Mean Corp Hgb Conc 30.5 g/dL (32-36); Mean Corpuscular Hgb 24.9 pg (27.0-32.0); Mean Corpuscular Volume 81.5 fL (81-99); Mean Platelet Vol. 8.8 fl (6.2-12.0); Platelet Count 346 K/mm3 (150-450); RBC Distribution Width CV 15.5 % (11.6-14.6); RBC Distribution Width SD 45.8 fl (35.1-43.9); Red Blood Count 5.07 M/mm3 (4.2-5.4); White Blood Count 8.6 K/mm3 (4.4-11.0)
[2019-09-25] MEDS: Lactated Ringers 1,000 ML 100 ML IV (06:44)
--- NOTE | 2019-09-25 07:16 | HP.PCM_ITS ---
Problem List (1) Sterilization Status: Acute Comment: plan laparoscopic BS at 6 weeks PP History of Present Illness Date of Admission: 09/25/19 The patient is a 29 year old F presents for desired sterilization Past Medical History Medical History: Medical History (Last Reviewed 07/16/19 @ 10:52 by Vandana Diaz) History of pre-eclampsia Z87.59 Z34.90 SOB (shortness of breath) R06.02 Shoulder pain M25.519 Allergies metoprolol Allergy (Severe, Verified 09/18/19 08:53) Hives heart races oxycodone HCl [From Percocet] Allergy (Severe, Verified 09/18/19 08:53) Hives heart races hydrocodone bitartrate [From Vicodin] Allergy (Intermediate, Verified 09/18/19 08:53) Hives latex Allergy (Mild, Verified 09/18/19 08:53) Rash Home Medications: Ambulatory Orders Medication Instructions Recorded L.acidoph,Paracasei, B.lactis 1 ea PO DAILY 09/18/19 [Probiotic] [place] Laten 3 cap PO TID 09/18/19 Surgical History: Surgical History (Last Reviewed 07/16/19 @ 10:52 by Vandana Diaz) History of foot surgery Z98.890 History of tonsillectomy Z98.890, Z90.89 Hx LEEP (loop electrosurgical excision procedure), cervix, O34.40, Z98.890 Smoking Status: Former smoker Tobacco Use: Non-smoker Review of Systems Constitutional: Denies: Fever, Malaise Eyes: Denies: Blurred vision, Vision Change HEENT: Denies: Head Aches, Visual Changes Cardiovascular: Denies: Chest Pain, Palpitations Respiratory: Denies: Cough, Shortness of Breath, Wheezing Gastrointestinal: Denies: Abdominal Pain, Diarrhea, Nausea, Vomiting Genitourinary: Denies: Dysuria, Hematuria Musculoskeletal: Denies: Joint Pain, Muscle pain Skin: Reports: Lesions - vulvar and inner right thigh lesions. Denies: Rash Neurological: Denies: Blurred vision, Focal weakness, Headaches Psychiatric: Denies: Anxiety, Depression Endocrine: Denies: Heat/ Cold Intolerance Hematologic/ Lymphatic: Denies: Easy Bruising, Easy Bleeding VTE Information - Inpt Only VTE Present on Admission: No VTE Mechan Device Prophylaxis: SCD's - Physical Exam Vitals/I&O's: Vital Signs Temp Pulse Resp BP Pulse Ox 98.5 F 93 16 127/80 H 99 09/25/19 06:36 09/25/19 06:36 09/25/19 06:36 09/25/19 06:36 09/25/19 06:36 Oxygen Delivery Method Room Air Weight: 352 lb 11.834 oz Body Mass Index (BMI) 53.6 General: Alert, Oriented x3 HEENT: Atraumatic, Normocephalic Oral: Moist Mucosa Neck: Trachea Midline, Thyroid Normal Size and Texture Lungs: Clear to auscultation Cardiovascular: Regular rate Abdomen: Soft, Non Tender, Non-Distended Skin: - - lesions inner right thigh and vulva, early folliculitis Microbiology Past 72 Hours 09/24/19 09:30 Mucosa - Nasopharyngeal Coronavirus COVID-19 PCR - Final Laboratory Results 09/24/19 09:30: COVID-19 (JATIN) Cancelled 09/25/19 06:26: Urine Test Negative 09/25/19 06:33: WBC 8.6, RBC 5.07, Hgb 12.6, Hct 41.3, MCV 81.5, MCH 24.9 L, M CHC 30.5 L, RDW Std Deviation 45.8 H, RDW Coeff of Danette 15.5 H, Plt Count 346, MPV 8.8 09/25/19 06:33: Blood Type Pending, Antibody Screen Pending Current Medications Lactated Ringer's () 1,000 mls @ 100 mls/hr IV .Q10H FLORENTINO Last Admin: 09/25/19 06:44 Dose: 100 mls/hr Documented by: Assessment/Plan All Active Problems (Last Reviewed 07/16/19 @ 10:52 by Vandana Diaz) Sterilization (Acute) Polyhydramnios affecting (Acute) Varices of umbilical cord (Acute) Depression affecting (Acute) (Acute) Supervision of other high risk , antepartum (Acute) Short interval between pregnancies affecting , antepartum (Acute) UTI in (Acute) Obesity affecting (Acute) History of pre-eclampsia in prior , currently in first trimester (Acute) screening encounter (Resolved) BMI greater than 40 (Resolved) Status post fall (Resolved) Subchorionic hemorrhage in first trimester (Resolved) URI, acute (Resolved) 29 YO PRESENTS FOR STERILIZATION PROCEDURE plan laparoscopic bilateral salpingectomy. also has two vulvar folliculitis lesions- possible I and d of these. After discussing the patient's diagnosis and treatment plan options, patient wishes to proceed with surgical management. I have discussed with the patient the risks, benefits, and alternatives of the procedure which include but are not limited to risks of anesthesia, bleeding, infection, possible damage to bowel, bladder, or surrounding vasculature which could lead to additional surgery to evaluate any complications. Patient agrees to procedure and wishes to proceed. ACOG/uptodate references given for additional information regarding procedure.
--- NOTE | 2019-09-25 07:20 | OP.PCM_ITS ---
Problem List (1) Sterilization Status: Acute Comment: plan laparoscopic BS at 6 weeks PP Report of Operation Date of Procedure: 09/25/19 Pre-Operative Diagnosis: sterilization Post-Operative Diagnosis: same Surgery/Procedure Performed:: laparoscopic bilateral salpingectomy Description of Surgical Findings:: nl uterus tubes ovaries para machine operator: Sabine Addison Type of Anesthesia:: General Special Medications: none Specimen's removed: tubes Drains: none Estimated Blood Loss (mL): 50 Fluids Replaced: crystalloid Description of Procedure: Patient was taken in the operating room and was placed under general anesthesia was prepped and draped in normal sterile fashion in the dorsal lithotomy position. Bladder was drained of clear urine and SCDs were on preoperatively. Uterus was sounded and a uterine manipulator was placed after dilating. Attention was then paid to the abdominal portion of the procedure and the umbilicus was elevated with towel clamps and injected with Marcaine and after a 5 mm incision was made and the Veress needle was attempted to be entered in the abdomen and was unsuccessful due to body habitus and therefore using the Jackie technique the umbilical port was placed directly. Abdomen was insufflated with CO2 gas and a 5 mm optical trocar was placed under direct visualization. A left lower quadrant 5 mm port and a 5 mm port suprapubically were placed under direct visualization. Uterus was well visualized and bilateral fallopian tubes identified and bilateral tubes were elevated and transecting across the mesosalpinx and the attachment to the uterine corpus bilaterally the tubes were removed without complication. Excellent hemostasis was noted. Fallopian tubes were removed through the lower port sites without complication. Liver and upper abdomen were visualized notably within normal limits and no other gross abnormalities were seen in the abdomen. All instruments removed from the abdomen after gas was desufflated. umbilical fascia was closed with o vicryl and Port sites were closed with 3-0 Monocryl Steri's and op sites were applied. All instruments removed from the vagina and patient was awoken and taken recovery in stable condition. Grafts/Implants Used: none - Complications none Multi Select Codes - Urinary/Genital Urinary/Genital CPT Codes: 77952 Laproscopic BS/O
--- NOTE | 2019-09-25 07:42 | PCM.DC.TUB ---
Discharge Diet: No Restrictions - Increase fluid intake for the next 48 hours. Discharge Activity: Return to Normal Activity, May Drive - when you are no longer taking narcotic pain medications., May Shower, May Take a Tub Bath - in 7 days Additional Activity Instructions:: Ambulate often the next week after surgery. Nothing in the vagina for 5 days. Call your doctor if your incision/area has: Continuous Slow Oozing, Sudden Increased Bleeding, Increased Pain/ Swelling, Increased Redness, Foul Smelling Discharge Call your doctor if you observe: Fever of 101 or Higher Allergies/Adverse Reactions: Allergies metoprolol Allergy (Severe, Verified 09/18/19 08:53) Hives heart races oxycodone HCl [From Percocet] Allergy (Severe, Verified 09/18/19 08:53) Hives heart races hydrocodone bitartrate [From Vicodin] Allergy (Intermediate, Verified 09/18/19 08:53) Hives latex Allergy (Mild, Verified 09/18/19 08:53) Rash Medications to take at Discharge L.acidoph,Paracasei, B.lactis [Probiotic] 1 ea PO DAILY 09/18/19 [place] Laten 3 cap PO TID 09/18/19 Clindamycin [Cleocin] 300 mg PO TID 10 Days #30 cap 09/25/19 Naproxen [Naprosyn] 250 - 500 mg PO Q8H PRN PRN #30 tab 09/25/19 The following prescriptions were given: Clindamycin [Cleocin] 300 mg PO TID 10 Days #30 cap Transmission Status: Received by [facility] Naproxen [Naprosyn] 250 - 500 mg PO Q8H PRN PRN #30 tab PRN Reason: MILD PAIN Transmission Status: Received by [facility] Orders to be completed after discharge: Type & Screen Time Frame: 09/25/19, Facility: [facility], Location: Laboratory Primary Care Physician: Asif Tim MD [Primary Care Provider] - Test Results: Test results from this visit will be discussed in further detail at your follow-up appointment, if applicable. Please Follow Up With: Julissa Doherty MD - [phone]
[2019-09-25] MEDS: Bupivacaine 0.25% 30 ML Vial (07:51)
[2019-09-25 08:48] VITALS: BP 110/57; BP 127/80; PULSE 67; RESP 16; TEMP 36.5; O2SAT 95
[2019-09-25 09:00] VITALS: BP 114/72; BP 127/80; PULSE 64; RESP 16; O2SAT 94
[2019-09-25 09:15] VITALS: BP 104/62; BP 127/80; PULSE 57; RESP 16; O2SAT 99
[2019-09-25 09:30] VITALS: BP 110/70; BP 127/80; PULSE 65; RESP 16; TEMP 36.9; O2SAT 98
[2019-09-25 10:40] VITALS: BP 127/80
== END 2019-09-25 10:59 | disposition home or self-care (01) ==
LOC: SDC 06:03 → AC 06:03
PROVIDERS: PCP Family Medicine; Referring Provider Obstetrics & Gynecology; Visit Provider Obstetrics & Gynecology
PROC: (CPT 58661; principal; 2019-09-25 07:15)
DX: Z30.2 Encounter for sterilization (principal); Z11.59 Encounter for screening for other viral diseases; Z87.891 Personal history of nicotine dependence
CPT/HCPCS: 58661; 81025; 85027; 86850; 86900; 86901; 87635; 88302; G2023; J7120; J2405; U0002

== ENCOUNTER → 2019-10-05 | Outpatient (CLI) | payer MEDICAID, SELFPAY ==
[2019-10-05 15:33] VITALS: BMI 53.6
== END | disposition home or self-care (01) ==
LOC: LABSPEC 16:47
PROVIDERS: PCP Family Medicine; Referring Provider Nurse Practitioner Women's Health; Visit Provider Nurse Practitioner Women's Health
DX: Z48.89 Encounter for other specified surgical aftercare (principal)
CPT/HCPCS: 87070; 87077; 87186; 87205

== ENCOUNTER 2019-12-19 17:44 | Emergency (ER) | payer MEDICAID, SELFPAY ==
[2019-10-16 14:31] VITALS: BMI 53.6
[2019-12-19 17:46] VITALS: BP 148/101; PULSE 106; RESP 16; TEMP 37.3; O2SAT 95; BMI 54.9
--- NOTE | 2019-12-19 18:05 | CT_ITS ---
STUDY: CT ABDOMEN AND PELVIS WITHOUT CONTRAST REASON FOR EXAM: Female, 29 years old. RIGHT FLANK PAIN, LUQ PAIN AND NAUSEA, FEVER, HEMATURIA, HX, LEEP, B/L SALPINGECTOMY, HX PYELONEPHRITIS RADIATION DOSAGE (If Supplied By Facility): CTDIvol = ( 24.1 ) mGy, DLP = ( 1467.64 ) mGycm TECHNIQUE: Transaxial images were obtained from the dome of the diaphragm to the symphysis pubis without oral contrast, and without intravenous contrast. Sagittal and coronal images were reconstructed. Individualized dose optimization techniques were used for this CT. COMPARISON: 01/02/2016 FINDINGS: The visualized lung bases are unremarkable. The visualized portions of the heart are within normal limits. The liver is enlarged but homogeneous attenuation without mass or bile duct dilatation.. There is a poorly calcified stone within the gallbladder without evidence for pericholecystic edema.. Normal spleen. Normal pancreas. Normal bilateral adrenal glands. Normal right kidney. Normal left kidney. Mildly enlarged perigastric nodes measuring approximately 9 to 10 mm in size stable since prior exam Normal visualized stomach. Normal small intestine. Normal colon. The appendix is visualized and appears normal. Normal abdominal aorta. Normal inferior vena cava. Normal retroperitoneum. Incompletely distended thick-walled bladder likely of no significance. Moderate size fat-containing periumbilical hernia. Lumbar spine demonstrates mild spondylosis. CT/Abdomen/Pelvis without Cont IMPRESSION: Cholelithiasis without definitive evidence for acute cholecystitis. HIDA scan would be useful for further evaluation if indicated. No evidence for renal obstruction or ureteral calculus. Electronically Signed: Srinivas Kaufman MD at 19:20 EDT , Service support ,
--- NOTE | 2019-12-19 18:06 | ED.DCSUM_ITS ---
- ER Visit Summary Date of Service: 12/19/19 Chief Complaint: Abdominal pain and flank pain History of Present Illness: The patient is a 29 F who presents with right flank and left upper quadrant abdominal pain that has been getting worse over the past 2 days. Patient went to urgent care today. Patient was noted to have a temperature of 100.1 there. Patient states they did a urinalysis there which did not show any urinary tract infection. Patient states she was then referred to the emergency department. Patient describes her pain is sharp. Patient states her pain is worse over the right flank area and left upper quadrant. Patient also admits to some low back pain. Patient states nothing makes it better or worse. Patient admits to nausea but denies any vomiting. Patient admits to some hematuria but denies any dysuria. Physical Examination: Vital signs are stable. Patient is afebrile. Patient is in no acute distress. Oral mucosa is pink and moist. Neck is supple. Trachea is midline. There is no JVD. Heart was regular rate and rhythm. Lungs are clear and equal bilaterally. Abdomen is soft. Bowel sounds are normal. There is some slight left upper quadrant tenderness. There is also some right CVA tenderness. There is no rebound or guarding noted. Cranial nerves II through XII are intact. There are no focal motor or sensory deficits noted. Extremities are intact. There is no calf tenderness or edema. Test Results: CBC shows a mild leukocytosis of 15.3. Urinalysis does not show any evidence of urinary tract infection. Serum hCG was negative. Lipase was normal. CT scan of the abdomen and pelvis was obtained. There is evidence of cholelithiasis but no acute cholecystitis findings. There is no acute intra- abdominal process. This was interpreted by the radiologist and reviewed by myself. Emergency Department Course and Treatment: Patient was given IV fluids. Patient was given Toradol and Zofran here. Patient is feeling better on reevaluation. Patient was instructed to follow-up with her primary care physician in 5 to 7 days. Patient was instructed return if worse in any way. Patient understood and was agreeable with the plan. All questions were answered. Disposition: Discharge home Impression: Abdominal pain This note was generated with [employer] dictation software. It may contain incorrect words, spelling, and punctuation that were not noted in review of the chart prior to signing ED Disposition - Plan for ED Patient: Disposition: Home or Assisted Living Diagnosis: Abdominal pain Instructions: ED Abdominal Pain Unkn Cause Fem, ED Flank Pain Uncertain Cause Referrals: Asif Tim MD [Primary Care Provider] - 5-7 Days
[2019-12-19 18:23] LABS: Absolute Lymphocyte Count 1.94 X10^3/uL (0.83-4.51); Absolute Neutrophil Count 12.4 X10^3/uL (2.0-7.7); Basophil# 0.02 X10^3/uL; Basophil% 0.1 % (0-1); Eosinophil# 0.46 X10^3/uL; Hematocrit 40.4 % (37-47); Hemoglobin 12.6 g/dL (12.0-15.0); Lymphocyte # 1.94 X10^3/ul (4.0); Lymphocyte % 12.7 % (19-41); Mean Corp Hgb Conc 31.2 g/dL (32-36); Mean Corpuscular Hgb 24.7 pg (27.0-32.0); Mean Corpuscular Volume 79.1 fL (81-99); Mean Platelet Vol. 8.6 fl (6.2-12.0); Monocyte# 0.41 X10^3/uL; Monocyte% 2.7 % (0-10); NRBC Flagged by Analyzer 0 % (0-5); Neutrophil % 81.1 % (47-70); Platelet Count 354 K/mm3 (150-450); RBC Distribution Width CV 16.2 % (11.6-14.6); RBC Distribution Width SD 46.5 fl (35.1-43.9); Red Blood Count 5.11 M/mm3 (4.2-5.4); White Blood Count 15.3 K/mm3 (4.4-11.0)
[2019-12-19] MEDS: 0.9% Normal Saline 1,000 ML 1000 ML IV (18:25)
[2019-12-19] MEDS: Ketorolac 30 MG/ML Syringe IV (18:26)
[2019-12-19] MEDS: Ondansetron 4 MG/2 ML Vial IV (18:26)
[2019-12-19 18:27] VITALS: BP 148/101; PULSE 106; RESP 16; TEMP 37.3
[2019-12-19 18:29] LABS: Internal QC Validated? YES +Cl - CLEAR BKGD; Pregnancy, Serum, hCG Quali. NEGATIVE Negative
[2019-12-19 18:33] LABS: Lipase 99 U/L (73-393)
[2019-12-19 18:47] LABS: Bacteria 0 SEEN /hpf (None Seen); Mucous, Urine 0 SEEN /hpf (<or=2+); Red Blood Cells-Urine 0 SEEN /hpf (0-5)
[2019-12-19 18:57] LABS: Color, Urine Yellow (Yellow); Glucose, Dipstick Normal (Normal); Ketone-Dipstick Negative (Negative); Leukocyte Esterase-Dipstick Negative /ul (Negative); Nitrite-Dipstick Negative (Negative); Occult Blood-Urine Negative /ul (Negative); Protein-Dipstick Negative (Negative); Urine Bilirubin Dipstick Negative (Negative); Urine Clarity Clear (Clear); Urine Urobilinogen Normal (Normal)
[2019-12-19 19:20] LABS: Squamous Epithelial Cells - UA 5-10 SEEN /hpf (5-10); White Blood Cells 0-5 SEEN /hpf (0-5)
[2019-12-19 20:38] VITALS: BP 135/75; BP 138/75; PULSE 82; RESP 16; O2SAT 98; O2SAT 99
== END 2019-12-19 20:41 | disposition home or self-care (01) ==
PROVIDERS: Emergency Provider Emergency Medicine; PCP Family Medicine
DX: R10.9 Unspecified abdominal pain (principal)
CPT/HCPCS: 74176; 81001; 83690; 84703; 85025; 96361; 96374; 96375; 99283; J7030; A4216; J2405

== ENCOUNTER → 2020-05-06 | Outpatient (CLI) | payer MEDICAID, SELFPAY ==
[2020-05-06 14:24] VITALS: BMI 57.0
[2020-05-12 12:54] LABS: HPV APTIMA, High Risk Negative (Negative)
== END | disposition home or self-care (01) ==
LOC: LABSPEC 16:46
PROVIDERS: PCP Family Medicine; Visit Provider Nurse Practitioner Women's Health
DX: Z12.4 Encounter for screening for malignant neoplasm of cervix (principal)
CPT/HCPCS: 87624; 88175; G0145

== ENCOUNTER → 2020-11-13 13:55 | Outpatient (CLI) | payer MEDICAID, SELFPAY ==
[2020-05-06 14:24] VITALS: BMI 57.0
[2020-11-06 11:19] VITALS: BMI 54.9
--- NOTE | 2020-11-13 13:57 | US_ITS ---
STUDY: ULTRASOUND OF THE FEMALE PELVIS - COMPLETE REASON FOR EXAM: Female, 30 years old. AUB, LLQ pain LMP: 10/27/2020. TECHNIQUE: Transabdominal and Transvaginal TECHNICAL QUALITY: Adequate. COMPARISON: None. FINDINGS: The uterus is anteverted and is in a midline position. The uterus measures 9.7 cm x 6.8 cm x 5 cm. Normal uterine cervix. The endometrium is thickened and measures 14.3 mm in thickness, and is hyperechoic. There is a 1 cm x 1.3 cm x 0.9 cm hypoechoic nodule in the endometrium. Endometrial polyp should be ruled out. There is no demonstrated myometrial mass. I.U.D. - The patient does not have an I.U.D. The right ovary is visualized. The right ovary measures 2.4 cm x 2.6 cm x 2.4 cm. There is no right ovarian cyst or ovarian mass. There is no visualized right adnexal mass or complex lesion. There is normal arterial and normal venous vascularity. The left ovary is visualized. The left ovary measures 1.3 cm x 1.8 cm x 0.8 cm. There is no left ovarian cyst or ovarian mass. There is no visualized left adnexal mass or complex lesion. There is normal arterial and normal venous vascularity. There is minimal fluid in the cul-de-sac. The pre void volume of the bladder was 301 ml. US/Transvaginal Non- IMPRESSION: Thickened endometrium. Findings suggestive of a 1.3 cm x 1 cm x 0.9 cm endometrial polyp. Electronically Signed: Walker Chatterjee MD at 14:54 EDT , Service support ,
--- NOTE | 2020-11-13 13:57 | US_ITS ---
STUDY: ULTRASOUND OF THE FEMALE PELVIS - COMPLETE REASON FOR EXAM: Female, 30 years old. AUB, LLQ pain LMP: 10/27/2020. TECHNIQUE: Transabdominal and Transvaginal TECHNICAL QUALITY: Adequate. COMPARISON: None. FINDINGS: The uterus is anteverted and is in a midline position. The uterus measures 9.7 cm x 6.8 cm x 5 cm. Normal uterine cervix. The endometrium is thickened and measures 14.3 mm in thickness, and is hyperechoic. There is a 1 cm x 1.3 cm x 0.9 cm hypoechoic nodule in the endometrium. Endometrial polyp should be ruled out. There is no demonstrated myometrial mass. I.U.D. - The patient does not have an I.U.D. The right ovary is visualized. The right ovary measures 2.4 cm x 2.6 cm x 2.4 cm. There is no right ovarian cyst or ovarian mass. There is no visualized right adnexal mass or complex lesion. There is normal arterial and normal venous vascularity. The left ovary is visualized. The left ovary measures 1.3 cm x 1.8 cm x 0.8 cm. There is no left ovarian cyst or ovarian mass. There is no visualized left adnexal mass or complex lesion. There is normal arterial and normal venous vascularity. There is minimal fluid in the cul-de-sac. The pre void volume of the bladder was 301 ml. US/Pelvic (Non ) IMPRESSION: Thickened endometrium. Findings suggestive of a 1.3 cm x 1 cm x 0.9 cm endometrial polyp. Electronically Signed: Walker Chatterjee MD at 14:54 EDT , Service support ,
== END ==
PROVIDERS: PCP Family Medicine; Referring Provider Nurse Practitioner Women's Health; Visit Provider Nurse Practitioner Women's Health
DX: N93.9 Abnormal uterine and vaginal bleeding, unspecified (principal)
CPT/HCPCS: 76830; 76856; 93976

== ENCOUNTER → 2020-12-09 | Outpatient (CLI) | payer MEDICAID, SELFPAY ==
--- NOTE | 2020-12-08 | EMB_PTH ---
PATIENT: KUNAL BURRELL LOC: [facility] U#:[id number] AGE/SX: / ROOM: RE12/09/[address]: Dr. Julissa Doherty MD : 1990 BED: DIS: 12/09/2020 SPEC #: [id number] RECD: 12/08/20 17:01 STATUS: CYNDI REWally #: [id number] ALLA: 12/08/20 00:[address]: Julissa Doherty DEPT: SURGICAL PATHOLOGY RECD BY: Nicolasa Jauregui ENTERED: 12/09/20 10:31 SP TYPE: ENDOM BX/C KATE DR: Dr. Asif Tim MD Tissues: Endometrium, NOS Procedures: Surgery Specimen Level IV HEADER OPERATION: Endometrial biopsy PRE-OP DIAGNOSIS: Abnormal uterine bleeding TISSUE SUBMITTED: Endocervical MICROSCOPIC DIAGNOSIS Endocervix, curettings: Proliferative endometrium with minimal disorder. Stroma with changes of external hormonal effect. Fibrinopurulent material. Rare fragments of benign superficial endocervix. AM:shirley 12/10/2020 MICROSCOPIC DESCRIPTION Slides are reviewed. GROSS DESCRIPTION Received is one container labeled with the patient's name and not further designated. The specimen consists of multiple fragments of marino hemorrhagic soft tissue that in aggregate measure 2.5 x 2.5 x 0.3 cm. The specimen is totally submitted in one cassette. / SJ:shirley 12/09/20 TC:2 CPT: 63315
[2020-12-08 15:58] VITALS: BMI 54.9
== END | disposition home or self-care (01) ==
LOC: LABSPEC 08:31
PROVIDERS: PCP Family Medicine; Referring Provider Obstetrics & Gynecology; Visit Provider Obstetrics & Gynecology
DX: N93.9 Abnormal uterine and vaginal bleeding, unspecified (principal)
CPT/HCPCS: 88305

== ENCOUNTER → 2021-01-28 07:23 | Outpatient (CLI) | payer MEDICAID, SELFPAY ==
[2021-01-28 10:11] LABS: Absolute Lymphocyte Count 2.02 X10^3/uL (0.83-4.51); Absolute Neutrophil Count 5.8 X10^3/uL (2.0-7.7); Basophil# 0.03 X10^3/uL; Basophil% 0.4 % (0-1); Eosinophil# 0.25 X10^3/uL; Eosinophils% 2.9 % (0-5); Hematocrit 40.4 % (37-47); Hemoglobin 12.7 g/dL (12.0-15.0); Lymphocyte # 2.02 X10^3/ul (0.83-4.51); Lymphocyte % 23.7 % (19-41); Mean Corp Hgb Conc 31.4 g/dL (32-36); Mean Corpuscular Hgb 24.8 pg (27.0-32.0); Mean Corpuscular Volume 78.8 fL (81-99); Mean Platelet Vol. 9.4 fl (6.2-12.0); Monocyte# 0.37 X10^3/uL; Monocyte% 4.3 % (0-10); NRBC Flagged by Analyzer 0 % (0-5); Neutrophil # 5.82 X10^3/uL (2.7-7.7); Neutrophil % 68.2 % (47-70); Platelet Count 346 K/mm3 (150-450); RBC Distribution Width SD 48.9 fl (35.1-43.9); Red Blood Count 5.13 M/mm3 (4.2-5.4); White Blood Count 8.5 K/mm3 (4.4-11.0)
== END ==
PROVIDERS: PCP Family Medicine; Referring Provider Nurse Practitioner Women's Health; Visit Provider Nurse Practitioner Women's Health
DX: N93.9 Abnormal uterine and vaginal bleeding, unspecified (principal)
CPT/HCPCS: 36415; 85025

== ENCOUNTER → 2021-02-23 16:24 | Outpatient (CLI) | payer MEDICAID, SELFPAY ==
[2021-02-23 17:26] LABS: Absolute Lymphocyte Count 2.33 X10^3/uL (0.83-4.51); Absolute Neutrophil Count 6.6 X10^3/uL (2.0-7.7); Basophil# 0.02 X10^3/uL; Basophil% 0.2 % (0-1); Eosinophil# 0.15 X10^3/uL; Eosinophils% 1.6 % (0-5); Hematocrit 39.2 % (37-47); Hemoglobin 11.9 g/dL (12.0-15.0); Lymphocyte # 2.33 X10^3/ul (0.83-4.51); Lymphocyte % 24.5 % (19-41); Mean Corp Hgb Conc 30.4 g/dL (32-36); Mean Corpuscular Hgb 24.5 pg (27.0-32.0); Mean Corpuscular Volume 80.7 fL (81-99); Mean Platelet Vol. 9.4 fl (6.2-12.0); Monocyte# 0.35 X10^3/uL; Monocyte% 3.7 % (0-10); NRBC Flagged by Analyzer 0 % (0-5); Neutrophil # 6.63 X10^3/uL (2.7-7.7); Neutrophil % 69.7 % (47-70); Platelet Count 356 K/mm3 (150-450); RBC Distribution Width SD 49.7 fl (35.1-43.9); Red Blood Count 4.86 M/mm3 (4.2-5.4); White Blood Count 9.5 K/mm3 (4.4-11.0)
[2021-02-23 17:41] LABS: International Normalized Ratio 1.1; Prothrombin Time (Protime)PT. 13.4 SECONDS (11.7-14.9)
[2021-02-23 17:42] LABS: Partial Thromboplast Time 33.8 Seconds (24.1-36.2)
[2021-02-23 18:16] LABS: AST(SGOT) 14 U/L (15-37); Alanine Aminotransfer ALT/SGPT 30 U/L (13-56); Alkaline Phosphatase 92 U/L (45-117); Anion Gap 6 (5-15); BUN 20 mg/dL (7-18); BUN/Creat Ratio 19.2 RATIO (10-20); Calcium,Total 8.9 mg/dL (8.5-10.1); Chloride 104 mmol/L (98-107); Creatinine, Serum 1.04 mg/dL (0.55-1.02); EST Glomerular Filtration Rate 65 mL/min (>60); Est Glom Filt Rate - Afr Amer 79 mL/min (>60); Globulin 4.7 g/dL (2.2-4.2); Glucose 93 mg/dL (74-106); Magnesium 2.1 mg/dL (1.6-2.6); Potassium 4.2 mmol/L (3.5-5.1); Protein, Total 7.7 g/dL (6.4-8.2); Sodium Level 139 mmol/L (136-145)
== END ==
PROVIDERS: Anesthesiology; PCP Family Medicine; Referring Provider Obstetrics & Gynecology; Visit Provider Obstetrics & Gynecology
DX: Z01.812 Encounter for preprocedural laboratory examination (principal)
CPT/HCPCS: 36415; 80048; 80076; 83735; 85025; 85610; 85730; 86850; 86900; 86901

== ENCOUNTER 2021-02-24 05:28 | Day surgery (SDC) | payer MEDICAID, SELFPAY ==
[2021-02-24] VITALS (12 sets, daily range): BP systolic 130–153; BP diastolic 85–105; PULSE 65–88; RESP 16–18; TEMP 36.5–36.9; O2SAT 93–99; BMI 59.1
[2021-02-24] MEDS: Celecoxib 200 MG Capsule 400 MG PO (06:12)
[2021-02-24] MEDS: Acetaminophen 500 MG Tablet 1000 MG PO ×2 (06:12→12:00)
[2021-02-24] MEDS: Gabapentin 600 MG Tablet PO (06:12)
[2021-02-24] MEDS: Phenazopyridine 95 MG Tablet 190 MG PO (06:13)
[2021-02-24] MEDS: Scopolamine 1mg/72hr Patch 1 PATCH TD (06:13)
[2021-02-24] MEDS: dexAMETHasone 10 MG/ML Vial 8 MG IV (06:14)
[2021-02-24] MEDS: Lactated Ringers 1,000 ML 40 ML IV (06:20)
[2021-02-24 06:52] LABS: Internal QC Validated? YES +Cl - CLEAR BKGD; Pregnancy, Urine Negative Negative
[2021-02-24] MEDS: Lactated Ringers 1,000 ML 70 ML IV (07:00)
--- NOTE | 2021-02-24 07:15 | HP.PCM_ITS ---
History and Physical Date of Admission: 02/24/21 Vital Signs 02/09/21 13:00 Height 5 ft 8 in Weight: 362 lb 4 oz BMI 55.0 BP 138/98 H Intake Visit Reasons: [facility] Clip On Sunglasses Inspector Required: No Is patient in pain?: No Allergies metoprolol Allergy (Severe, Verified 02/09/21 13:00) Hives oxycodone HCl [From Percocet] Allergy (Severe, Verified 02/09/21 13:00) Hives hydrocodone bitartrate [From Vicodin] Allergy (Intermediate, Verified 02/09/21 13:00) Hives latex Allergy (Mild, Verified 02/09/21 13:00) Rash dicloxacillin Allergy (Verified 02/09/21 13:00) Hives Medications ascorbate calcium (vitamin C) 500 mg tablet 500 mg PO DAILY 11/06/20 [History Confirmed 02/09/21] ferrous sulfate 325 mg (65 mg iron) tablet 325 mg PO DAILY 11/06/20 [History Confirmed 02/09/21] norethindrone acetate 5 mg tablet 5 mg PO DAILY #30 tab 11/06/20 [Rx Confirmed 02/09/21] Post menopausal: No Patient : No : No [facility] Medical History History of pre-eclampsia Shoulder pain SOB (shortness of breath) Surgical History History of foot surgery History of tonsillectomy Hx LEEP (loop electrosurgical excision procedure), cervix, Status post bilateral salpingectomy (~09/25/19) Family History Grandmother Cancer Social History Smoking Status: Former smoker second hand exposure: No alcohol intake: never substance use type: does not use caffeine: No what type of physical activity do you participate in: none seatbelt use: always do you feel safe at home: Yes additional social history: Kash [employer] [facility] Details: KUNAL SULLIVAN is a 30 year old who presents for preop visit for hysterectomy for AUB. Female Reproductive History Menopausal Symptoms: No hot flashes, No night sweats, No difficulty linda ntrating and No change in libido Pregancy History 7 Elective abortions Hx Para 4 Spontaneous abortions Hx # Term Pregnancies Ectopic pregnancies Hx # Pregnancies Multiple births # of living children 5 Past Pregnancies Del. Date Name GA/Weeks Outcome Route Bth Weight Gen Labor Lgth Anesthesia Del Locatn Provider FOB Unknown Angus 2008 40 8pounds 3 ounce epidural Unknown 2010 39 live - full term 7 lb 03/05/17 Doreen 39 8 lbs Female [facility] 08/01/18 Stu 39 live - full term Female spinal [facility] 07/19/19 [place] 39 live - full term Male epidural [facility] Delivery Date: No notes to display Delivery Date: No notes to display Delivery Date: 03/05/17 No notes to display Delivery Date: 08/01/18 polyhydramnios Emily,Vandana Delivery Date: 07/19/19 POly Natalya Franks ROS Const Constitutional: Denies fatigue, night sweats, weight gain or weight loss ENT ENT: Reports system reviewed and no additional complaints, except as documented Cardio Card: Denies chest pain Resp Resp: Denies cough or dyspnea GI GI: Reports as per HPI; Denies constipation, nausea or vomiting : Reports as per HPI; Denies hot flashes, nipple discharge, vaginal discharge, vaginal dryness, vaginal odor or vaginal pruritus Musc Musc: Denies arthralgias, back pain or muscle weakness Skin Skin/Breast: Denies alopecia, change in hair, dry skin, breast mass, breast pain, breast skin changes or nipple discharge Neuro Neuro: Reports system reviewed and no additional complaints, except as documented Psych Psych: Reports system reviewed and no additional complaints, except as documented; Denies change in libido or difficulty concentrating Endo Endo: Denies cold intolerance, excessive sweating, heat intolerance or polydipsia Cale/Lymph Hematologic/Lymphatic: Denies easy bleeding, Denies easy bruising and Denies lymphadenopathy Exam Const General: cooperative, healthy appearing, comfortable, no acute distress and well developed Orientation: alert HENNV Head: normal to inspection and normocephalic Ears: hearing grossly normal bilaterally and external ears normal Nose: external nose normal and nares normal Face and sinus: normal facial exam Neck Neck: normal visual inspection and no lymphadenopathy Thyroid: thyroid normal Chest Chest palpation & inspection: normal inspection of the chest Resp Effort & Inspection: normal respiratory effort Auscultation: clear to auscultation bilaterally Cardio Rate: regular rate Rhythm: regular rhythm Heart Sounds: S1 normal and S2 normal GI Inspection: normal to inspection and non-distended Palpation: soft and no hepatosplenomegaly General: bladder normal to palpation External Female Exam: normal external appearance and normal appearance of the urethra Urethra: normal appearance of the urethra, normal palpation and no discharge Speculum Exam - Vagina: normal appearance of the vagina and normal vaginal discharge Speculum Exam - Cervix: normal appearance of the cervix and nontender Bimanual Exam- Vagina & Uterus: normal bimanual exam, uterine size normal, bladder normal to palpation, uterine shape normal, No tender, uterine mobility normal, consistency normal, normal palpation and non-tender Bimanual Exam- Adnexa, other: normal adnexae, adnexae mobile, no masses and normal Pelvic Support: normal Musc Other: gross motor intact no deficits, full bilateral strength Skin General: no rashes or lesions noted Neuro General: patient alert, patient awake, moves all extremities and no focal motor deficits Motor: muscle tone normal throughout Extrem General: normal to inspection and no pedal edema Psych Appearance: grossly normal Mental Status: mental status grossly normal Affect: normal affect Speech and Movement: speech and movement normal Coding Level of Care Code No Charge Diagnoses Abnormal uterine bleeding (AUB) N93.9 Assessment and Plan Assessment and Plan (1) Abnormal uterine bleeding (AUB): Status: Acute Comment: failed ablation. nl emb. plan [facility]. Plan - Dr. Julissa Doherty MD: After discussing the patient's diagnosis and treatment plan options, patient wishes to proceed with surgical management. I have discussed with the patient the risks, benefits, and alternatives of the procedure which include but are not limited to risks of anesthesia, bleeding, infection, possible damage to bowel, bladder, or surrounding vasculature which could lead to additional surgery to evaluate any complications. Patient agrees to procedure and wishes to proceed. ACOG/uptodate references given for additional information regarding procedure. 02/09/21 1315 UPDATE- I have seen the patient and performed any clinically relevant updates to the history and physical exam. Julissa Doherty MD
[2021-02-24] MEDS: Vasopressin 20 UNITS/ML Vial (07:30)
--- NOTE | 2021-02-24 07:30 | HYST_PTH ---
PATIENT: KUNAL BURRELL LOC[place] [facility] [place][id number] AGE/SX: 30/F ROOM: RE02/24/[address]: Dr. Julissa Doherty MD : 1990 BED: DIS: 02/24/2021 SPEC #: [id number] RECD: 02/24/21 12:23 STATUS: CYNDI REWally #: [id number] ALLA: 02/24/21 07:[address]: Julissa Doherty DEPT: SURGICAL PATHOLOGY RECD BY: Nicolasa Jauregui ENTERED: 02/24/21 12:57 SP TYPE: HYSTERECT OTHR DR: Dr. Asif Tim MD Tissues: Uterus, NOS Procedures: Surgery Specimen Level V HEADER OPERATION: ERAS, total vaginal hysterectomy PRE-OP DIAGNOSIS: Abnormal uterine bleeding TISSUE SUBMITTED: Cervix and uterus MICROSCOPIC DIAGNOSIS Uterus, hysterectomy: Cervix ? nabothian cysts and mild chronic inflammation. Endometrium ? secretory endometrium. Myometrium ? focal superficial adenomyosis. AM:shirley 02/25/2021 MICROSCOPIC DESCRIPTION Slides are reviewed. GROSS DESCRIPTION Received in fixative is one container labeled with the patient's name and designated uterus. The specimen consists of a previously opened uterus with attached cervix measuring 8.5 x 6.5 x 4.5 cm and weighing 122 gm. The ectocervix is grossly unremarkable. The endocervical canal measures 3.5 cm in length and is grossly unremarkable. The triangular endometrial cavity measures 4 x 3 cm. The velvety, light marino endometrium measures up to 0.3 cm in thickness. The myometrium measures 2.2 cm in average thickness and is free of mass lesions. Non Licensed Operator sections are submitted in six cassettes as follows: 1 - anterior cervix, 2 - posterior cervix, 3 & 4 - anterior uterine wall, 5 & 6 - posterior uterine wall. / AM:shirley 02/24/21 TC:5 CPT: 54277
[2021-02-24] MEDS: Enoxaparin 40 MG/0.4 ML Syringe SC (07:40)
--- NOTE | 2021-02-24 09:33 | PCM.OPRPT ---
Problems Associated Problem List Diagnoses (1) Abnormal uterine bleeding (AUB): (2) S/P vaginal hysterectomy: Report of Operation Date of Procedure: 02/24/21 Pre-Operative Diagnosis: see problem list Post-Operative Diagnosis: same Surgery/Procedure Performed:: [facility] veterinary technologist: Bev Girard Type of Anesthesia: General Specimen's removed: uterus Drains: block Estimated Blood Loss (mL): 200 Fluids Replaced: crystalloid Description of Procedure: Patient was taken to the operating room and was placed under general anesthesia was prepped and draped in normal sterile fashion in the dorsal lithotomy position. Preoperative antibiotics and SCDs and Block catheter was placed inside the bladder. Weighted speculum was placed in the vagina and the anterior and posterior lip of the cervix was grasped with 2 Renata clamps and circumferentially injected with dilute vasopressin. A circumferential incision was made with a scalpel and the posterior cul-de-sac was entered into sharply and a longneck speculum was placed. The anterior cul-de-sac was also dissected down and entered into sharply and the uterosacral ligaments were clamped cut and suture ligated bilaterally followed by the cardinal ligaments which were Clamped cut and suture ligated bilaterally with 0 Monocryl. The uterus serially descended and progressive bites were taken bilaterally up to the level of the utero-ovarian ligament bilaterally which was clamped transected and double ligated with 0 Monocryl suture and 0 Vicryl free tie. Excellent hemostasis was noted. The vagina was closed with [id number] 0 Vicryl pop offs including the posterior and anterior peritoneum in the reapproximation. Excellent hemostasis was noted. All instruments removed from the vagina clear urine was noted at the end of the procedure and patient was awoken and taken recovery in stable condition. Grafts/Implants Used: none Complications none Admit VTE Documentation VTE Present on Admission: No VTE Mechan Device Prophylaxis: SCD's VTE Pharm Prophylaxis ordered?: Yes Multi Select Codes Urinary/Genital Urinary/Genital CPT Codes: 04136 [facility]+BS/O <250gr uterus
--- NOTE | 2021-02-24 09:35 | EX.PCM.DISCH ---
Discharge Instructions Procedure Hysterectomy, Vaginal Diet Discharge Diet: No restrictions Activity Discharge Activity: Return to Normal Activity, May Not Drive (while taking narcotic pain medications.) and May Shower May resume sexual activity in: 6-8 weeks Dressing / Incision Call your doctor if your incision/area has: Continuous Slow Oozing, Sudden Increased Bleeding, Increased Pain/ Swelling, Increased Redness and Foul Smelling Discharge Call your doctor if you observe: Fever of 101 or Higher, Inability to urinate, Inability to have a bowel movement and Using more than 1 pad per hour Follow Up Care Please Follow Up With: Julissa Doherty MD Test Results: Test results from this visit will be discussed in further detail at your follow-up appointment, if applicable. Discharge Plan Admission Primary Reason for Your Visit: hysterectomy Attending Provider: Julissa Doherty Primary Care Provider: Asif Tim Discharge Orders/Prescriptions Prescriptions: New cyclobenzaprine 10 mg tablet 10 mg PO TID PRN (Reason: muscle spasm or pain) Qty: 30 RF: 1 naproxen 250 MG tablet 250 - 500 mg PO Q8H PRN PRN (Reason: MILD PAIN) Qty: 30 RF: 1 Continued ferrous sulfate 325 mg (65 mg iron) tablet 325 mg PO BID RF: 0 ascorbate calcium (vitamin C) 500 mg tablet 500 mg PO BID RF: 0 vitamin [id number]-[id number] acid 1,000-400 mcg Tablet, Sublingual 1 tab SUBLINGUAL DAILY RF: 0 Referrals / Follow Up: Asif Tim MD [Primary Care Provider] - Disposition Disposition (needs filled in before D/C Order can be placed): Home, Self Care
[2021-02-24 09:55] LABS: Bedside Glucose 90 mg/dL (70-110)
[2021-02-24] MEDS: cycloBENZAPRine HCl 10 MG Tablet PO (10:55)
[2021-02-24] MEDS: fentaNYL 100 MCG/2 ML Ampul 50 MCG IV (11:13)
[2021-02-24] MEDS: Ketorolac 30 MG/ML Syringe IV (12:19)
[2021-02-24 12:34] LABS: Hematocrit 40.5 % (37-47); Hemoglobin 12.5 g/dL (12.0-15.0); Mean Corp Hgb Conc 30.9 g/dL (32-36); Mean Corpuscular Hgb 24.7 pg (27.0-32.0); Mean Corpuscular Volume 79.9 fL (81-99); Mean Platelet Vol. 9.3 fl (6.2-12.0); Platelet Count 349 K/mm3 (150-450); RBC Distribution Width CV 16.8 % (11.6-14.6); RBC Distribution Width SD 48.8 fl (35.1-43.9); Red Blood Count 5.07 M/mm3 (4.2-5.4)
== END 2021-02-24 14:18 | disposition home or self-care (01) ==
LOC: SDC 05:29 → AC 05:29
PROVIDERS: PCP Family Medicine; Referring Provider Obstetrics & Gynecology; Visit Provider Obstetrics & Gynecology
PROC: (CPT 58260; principal; 2021-02-24 07:10)
DX: N93.9 Abnormal uterine and vaginal bleeding, unspecified (principal); N88.8 Other specified noninflammatory disorders of cervix uteri; N80.0 Endometriosis of uterus; Z87.891 Personal history of nicotine dependence; Z20.822 Contact with and (suspected) exposure to COVID-19
CPT/HCPCS: 00944; 58260; 81025; 82962; 85027; 87426; 88307; C9803; J7120; J2405

== ENCOUNTER 2022-09-20 17:00 | Emergency (ER) | payer MEDICAID, SELFPAY ==
[2022-09-20 17:01] VITALS: BP 127/74; PULSE 92; RESP 14; TEMP 37.6; O2SAT 100; BMI 31.6
--- NOTE | 2022-09-20 17:17 | CT_ITS ---
STUDY: CT ABDOMEN AND PELVIS WITHOUT CONTRAST REASON FOR EXAM: Female, 32 years old. Pain. RADIATION DOSAGE (If Supplied By Facility): CTDIvol = ( 9.38 ) mGy, DLP = ( 496.66 ) mGycm TECHNIQUE: Transaxial images were obtained from the dome of the diaphragm to the symphysis pubis without oral contrast, and without intravenous contrast. Sagittal and coronal images were reconstructed. Individualized dose optimization techniques were used for this CT. COMPARISON: December 19, 2019 FINDINGS: The visualized lung bases are unremarkable. The visualized portions of the heart are within normal limits. Normal liver. Height and a small calcification in the gallbladder neck. The gallbladder is otherwise unremarkable. No biliary ductal abnormality. Normal spleen. Normal pancreas. Normal bilateral adrenal glands. Normal right kidney. Normal left kidney. Normal visualized ureters. Evidence of gastric bypass surgery. Normal small intestine. Normal colon. The appendix is visualized and appears normal. Normal abdominal aorta. Normal inferior vena cava. Normal retroperitoneum. Normal urinary bladder. The uterus is thought absent or atrophic. No adnexal mass. No free fluid. No free air. Normal abdominal wall. Normal osseous structures. CT/Abdomen/Pelvis without Cont IMPRESSION: 1. Interval hysterectomy since previous study. 2. No evidence of acute intra-abdominal or pelvic process or other major interval change. Electronically Signed: Yury Arora DO at 18:00 EDT Reading Location ID and State: [id number] Tel [phone], Service support ,
--- NOTE | 2022-09-20 17:18 | EX.ED.DYSGE1 ---
HPI History of Present Illness Chief Complaint: Flank Pain Informant: patient Narrative Narrative: Patient presents with right flank pain. Patient started with right flank pain last Tuesday. It sounds like it was relatively sudden in onset. She may have had dysuria but is not completely certain. No known hematuria. No known fever. The pain does wax and wane but never go away. Some days are pretty good and some days are worse. When the pain is bad she has had some nausea. 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 She has not had significant issues since that surgery. She does not think she has ever had kidney stone before. She has had kidney infections. Nothing specifically makes her symptoms better or worse PFSH PFSH Medical History Abnormal uterine bleeding (AUB) Anxiety Depression Easy bruising Former smoker Heartburn History of irregular heartbeat History of pre-eclampsia Leg cramps Low iron Migraine headache Shoulder pain SOB (shortness of breath) Wears glasses Home Medications multivitamin 1 tab PO DAILY 09/20/22 [History Last Taken Unknown] Allergy/AdvReac Type Severity Reaction Status Date / Time metoprolol Allergy Severe Hives Verified 09/20/22 17:01 oxycodone HCl [From Percocet] Allergy Severe Hives Verified 09/20/22 17:01 hydrocodone bitartrate Allergy Intermediate Hives Verified 09/20/22 17:01 [From Vicodin] latex Allergy Mild Rash Verified 09/20/22 17:01 dicloxacillin Allergy Hives Verified 09/20/22 17:01 Family History Grandmother Cancer Surgical History H/O gastric bypass History of foot surgery History of tonsillectomy History of total vaginal hysterectomy ([facility]) Hx LEEP (loop electrosurgical excision procedure), cervix, Hx of cholecystectomy S/P hernia surgery S/P vaginal hysterectomy (~02/24/21) Status post bilateral salpingectomy (~09/25/19) Social History Smoking Status: Former smoker second hand exposure: No alcohol intake: never substance use type: does not use caffeine: No what type of physical activity do you participate in: none seatbelt use: always do you feel safe at home: Yes additional social history: Kash SWIFT ROS ED ROS Narrative A complete review of systems was performed and is negative except as documented in the history of present illness. Some specific details below. Constitutional: No recent fevers or chills. No generalized malaise EYE: No visual complaints or pain. ENT: No difficulty swallowing. No swelling. No pain. CV: No chest pain or palpitations. Respiratory: No dyspnea. No hemoptysis. No difficulty taking breaths. GI: Please see history of present illness. : See history of present illness. Musculoskeletal: No recent trauma. No pains. Pain is not reproduced with twisting. Skin: No rash. Nondiaphoretic. Neuro: No weakness or numbness. Endocrine: No polyuria or polydipsia. EXAM Physical Exam Narrative Exam Narrative: CONSTITUTIONAL: Patient is nontoxic in appearance. The patient looks comfortable. HEENT: No notable trauma. Mucous membranes my elderly dry. No sinus tenderness. No indication of pain with swallowing. EYES: No conjunctival injection. No proptosis. CARDIOVASCULAR: Regular rate. Regular rhythm. No notable murmur. No JVD. RESPIRATORY: No respiratory distress. Breathing is unlabored. No wheezes. No rhonchi. No rales. No pain with a deep breath. GASTROINTESTINAL: Not distended. Bowel sounds are normal. No tenderness. No guarding. No rebound. No palpable mass. No bruit. She does have some CVA tenderness but her abdomen is overall rather benign. GENITOURINARY: No tenderness over the bladder. Mild right-sided CVA tenderness. MUSCULOSKELETAL: Atraumatic. No peripheral edema. No cord. No tenderness along the deep venous system. No asymmetry. NEUROLOGICAL: Patient is alert and appropriate. No focal deficit noted. SKIN: No noted rashes. No diaphoresis. PSYCHIATRIC: Patient is calm. Mood is appropriate. Const Vital Signs: 09/20/22 17:01 09/20/22 17:12 09/20/22 18:17 Temperature 99.7 F H Temperature Source Temporal Pulse Rate 92 82 Respiratory Rate 14 16 Respiratory Effort Normal Respiratory Pattern Normal Blood Pressure 127/74 H 114/87 H Blood Pressure Mean 91 96 Pulse Ox 100 99 Oxygen Delivery Method Room Air MDM MDM MDM Narrative Medical decision making narrative: Patient CBC shows no acute process. Patient's electrolytes show minimal elevation in the BUN but she was given IV fluids. Patient's liver function test are normal. Patient's urinalysis shows no sign of acute infection. My independent interpretation of her CT shows no acute process. I see no kidney stone. They do make mention on final read of interval hysterectomy which was known. But no evidence of acute intra-abdominal pelvic process or major interval change per radiology. Patient states that now maybe it does hurt more with twisting. It definitely hurts more when she stands up and is much better laying down. 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 She is comfortable managing this at home. We did discuss reasons to return that would include fevers recurrent vomiting worsening pain localization of pain blood in the stool or any other concerns Lab Data Attestation: I reviewed the patient's lab results. Labs: Laboratory Results - last 24 hr 09/20/22 09/20/22 09/20/22 17:10 17:20 17:20 WBC 6.8 RBC 4.69 Hgb 13.3 Hct 41.3 MCV 88.1 MCH 28.4 MCHC 32.2 RDW Std Deviation 42.9 RDW Coeff of Danette 13.2 Plt Count 276 MPV 9.7 Immature Gran % (Auto) 0.100 Neut % (Auto) 59.0 Lymph % (Auto) 34.9 Imperial % (Auto) 4.4 Eos % (Auto) 1.3 Baso % (Auto) 0.3 Absolute Neuts (auto) 4.0 Absolute Lymphs (auto) 2.36 Nucleated RBC % 0 Sodium 139 Potassium 4.1 Chloride 104 Carbon Dioxide 27.0 Anion Gap 8 BUN 21 H Creatinine 0.76 Estim Creat Clear Calc 102.39 Est GFR (MDRD) Af Amer 113 Est GFR (MDRD) Non-Af 94 BUN/Creatinine Ratio 27.8 H Glucose 93 Calcium 9.0 Total Bilirubin 0.70 AST 15 ALT 31 Alkaline Phosphatase 80 Total Protein 7.2 Albumin 3.4 Globulin 3.8 Albumin/Globulin Ratio 0.9 Urine Color Yellow Urine Clarity Clear Urine pH 6.5 Ur Specific Mcqueeney 1.015 Urine Protein Negative Urine Glucose (UA) Normal Urine Ketones 50 H Urine Occult Blood Negative Urine Nitrite Negative Urine Bilirubin Negative Urine Urobilinogen Normal Ur Leukocyte Esterase Negative Urine RBC 0 SEEN Urine WBC 0 SEEN Ur Squamous Epith Cells 5-10 SEEN Urine Bacteria 1+ Urine Mucus 0 SEEN Radiography Diagnostic Testing: Clinical Impression(s) from Imaging Studies Abdomen/Pelvis CT 09/20/22 17:17 IMPRESSION: 1. Interval hysterectomy since previous study. 2. No evidence of acute intra-abdominal or pelvic process or other major interval change. Electronically Signed: Yury Arora DO at 18:00 EDT Reading Location ID and State: [address] [place] [address] Tel [phone], Service support , Discharge Plan Triage Chief Complaint: Flank Pain ED Provider: Ranjit Smalls Dx/Rx/DC Orders Clinical Impression: Acute right flank pain, History of gastric bypass Instructions: ED Abdominal Pain Unkn Cause Fem Prescriptions: No Action multivitamin Tablet 1 tab PO DAILY Primary Care Provider: Asif Tim Referrals: Asif Tim MD [Primary Care Provider] - 3-5 Days Disposition Disposition: Home, Self Care
[2022-09-20] MEDS: Ondansetron 4 MG/2 ML Vial IV (17:23)
[2022-09-20] MEDS: 0.9% Normal Saline 1,000 ML 1000 ML IV (17:23)
[2022-09-20 17:33] LABS: Mucous, Urine 0 SEEN /hpf (<or=2+); Red Blood Cells-Urine 0 SEEN /hpf (0-5); White Blood Cells 0 SEEN /hpf (0-5)
[2022-09-20 17:34] LABS: Absolute Lymphocyte Count 2.36 X10^3/uL (0.83-4.51); Basophil# 0.02 X10^3/uL; Basophil% 0.3 % (0-1); Eosinophil# 0.09 X10^3/uL; Eosinophils% 1.3 % (0-5); Hematocrit 41.3 % (37-47); Hemoglobin 13.3 g/dL (12.0-15.0); Lymphocyte # 2.36 X10^3/ul (0.83-4.51); Lymphocyte % 34.9 % (19-41); Mean Corp Hgb Conc 32.2 g/dL (32-36); Mean Corpuscular Hgb 28.4 pg (27.0-32.0); Mean Corpuscular Volume 88.1 fL (81-99); Mean Platelet Vol. 9.7 fl (6.2-12.0); Monocyte% 4.4 % (0-10); NRBC Flagged by Analyzer 0 % (0-5); Neutrophil # 3.99 X10^3/uL (2.7-7.7); Platelet Count 276 K/mm3 (150-450); RBC Distribution Width CV 13.2 % (11.6-14.6); RBC Distribution Width SD 42.9 fl (35.1-43.9); Red Blood Count 4.69 M/mm3 (4.2-5.4); White Blood Count 6.8 K/mm3 (4.4-11.0)
[2022-09-20 17:36] LABS: Color, Urine Yellow (Yellow); Glucose, Dipstick Normal (Normal); Ketone-Dipstick 50 mg/dl (Negative); Leukocyte Esterase-Dipstick Negative /ul (Negative); Nitrite-Dipstick Negative (Negative); Occult Blood-Urine Negative /ul (Negative); Protein-Dipstick Negative (Negative); Specific Gravity, Urine 1.015 (1.002-1.030); Urine Bilirubin Dipstick Negative (Negative); Urine Clarity Clear (Clear); Urine Urobilinogen Normal (Normal); Urine pH 6.5 (5.0 - 8.0)
[2022-09-20 17:49] LABS: Bacteria 1+ /hpf (None Seen); Squamous Epithelial Cells - UA 5-10 SEEN /hpf (5-10)
[2022-09-20 17:51] LABS: Albumin, Serum 3.4 g/dL (3.2-5.0); BUN 21 mg/dL (7-18); BUN/Creat Ratio 27.8 RATIO (10-20); Creatinine, Serum 0.76 mg/dL (0.55-1.02); EST Glomerular Filtration Rate 94 mL/min (>60); Est Glom Filt Rate - Afr Amer 113 mL/min (>60); Estimated Creatinine Clearance 102.39 ml/min; Glucose 93 mg/dL (74-106); Protein, Total 7.2 g/dL (6.4-8.2)
[2022-09-20 17:52] LABS: ALB/GLOB Ratio 0.9 RATIO (0.9-2.4); AST(SGOT) 15 U/L (15-37); Alanine Aminotransfer ALT/SGPT 31 U/L (13-56); Alkaline Phosphatase 80 U/L (45-117); Anion Gap 8 (5-15); Chloride 104 mmol/L (98-107); Globulin 3.8 g/dL (2.2-4.2); Potassium 4.1 mmol/L (3.5-5.1); Sodium Level 139 mmol/L (136-145)
[2022-09-20 18:17] VITALS: BP 114/87; PULSE 82; RESP 16; O2SAT 99
[2022-09-20 19:26] VITALS: BP 120/68; PULSE 70; RESP 18; O2SAT 100
== END 2022-09-20 19:27 | disposition home or self-care (01) ==
PROVIDERS: Emergency Provider Emergency Medicine; PCP Family Medicine; Visit Provider Emergency Medicine
DX: R10.9 Unspecified abdominal pain (principal); Z98.84 Bariatric surgery status; Z87.891 Personal history of nicotine dependence
CPT/HCPCS: 74176; 80053; 81001; 85025; 87086; 87088; 96361; 96374; 99284; J7030; A4216; J2405

== ENCOUNTER → 2023-02-03 | Outpatient (CLI) | payer MEDICAID, SELFPAY ==
[2023-02-03 15:59] LABS: Free T3 2.4 pg/mL (2.18-3.98); T4 Free Direct 0.96 ng/dL (0.76-1.46)
[2023-02-05 04:07] LABS: Thyroid Peroxidase AB 286 IU/mL (0-34)
== END | disposition home or self-care (01) ==
LOC: PAVLAB 14:43
PROVIDERS: PCP Family Medicine; Referring Provider Obstetrics & Gynecology; Visit Provider Obstetrics & Gynecology
DX: E04.1 Nontoxic single thyroid nodule (principal)
CPT/HCPCS: 36415; 84439; 84481; 86376

== ENCOUNTER → 2023-03-09 | Outpatient (CLI) | payer MEDICAID, SELFPAY ==
[2023-03-09 15:00] LABS: Calcium,Total 9.4 mg/dL (8.5-10.1)
== END | disposition home or self-care (01) ==
LOC: LAB 14:07
PROVIDERS: PCP Family Medicine; Visit Provider Surgery
DX: E04.1 Nontoxic single thyroid nodule (principal)
CPT/HCPCS: 36415; 82310; 83970

== ENCOUNTER → 2023-06-21 | Outpatient (CLI) | payer MEDICAID, SELFPAY ==
--- OUTSIDE RECORDS SUMMARY | 2023-06-21 06:55 | XMS RPT_ITS | CCD ---
Author Name Unknown Address [address] [place] [address] Organization [facility] Care Team Providers Care Agent Telegrapher Name Role Phone LILIAM Dee RN, Natalya Coles Unavailable Unavailjose alberto Dee RN RN, Natalya Coles Unavailable Unavailjose alberto Dee RN RN, Natalya A Unavailable Unavailabl e Becki FOSTER, Julissa Lin Unavailable [phone] VALDEZ WOODALL Unavailable Unavailable MEETA, YOLIS Unavailable Unavailable Zografakis, Masood Unavailable Unavailable Bittenbender, Peter Unavailable Unavailable [place], Yolis Unavailable Unavailable Zografakis, Masood Unavailable Unavailable Bittenbender, Peter Unavailable Unavailable [place], Yolis Unavailable Unavailable Bittenbender, Peter Unavailable Unavailable [place], Yolis Unavailable Unavailable Wells, Unavailable Unavailable Wells, Unavailable Unavailable Bittenbender, Peter Unavailable Unavailable [place], Yolis Unavailable Unavailable Wells, Unavailable Unavailable Bittenbender, Peter Unavailable Unavailable Meeta, Yolis Unavailable Unavailable Wells, Unavailable Unavailable Bittenbender, Peter Unavailable Unavailable Meeta, Yolis Unavailable Unavailable Wells, Unavailable Unavailable Bittenbender, Peter Unavailable Unavailable Meeta, Yolis Unavailable Unavailable Wells, Unavailable Unavailable Bittenbender, Peter Unavailable Unavailable [place], Yolis Unavailable Unavailable Wells, Unavailable Unavailable Bittenbender, Peter Unavailable Unavailable Meeta, Yolis Unavailable Unavailable Zografakis, Masood Unavailable Unavailable Bittenbender, Peter Unavailable Unavailable Meeta, Yolis Unavailable Unavailable RummellSweetie Unavailable Unavailable Bittenbender, Peter Unavailable Unavailable [place], Yolis Unavailable Unavailable Bittenbender, Peter Unavailable Unavailable Meeta, Yolis Unavailable Unavailable Zografakis, Masood Unavailable Unavailable Bittenbender, Peter Unavailable Unavailable [place], Yolis Unavailable Unavailable CELESTE PISANO Attending Unavailable CHARLESONY, JULISSA E Referring Unavailabl e MEETA, YOLIS Edwards Primary Care Unavailable TYE RAMAN Attending Unavailable MARCANTHONY, JULISSA E Referring Unavailabl e MEETA, YOLIS J Primary Care Unavailable CARLOS TURNER Attending Unavailable MARCANTHONY, JULISSA E Referring Unavailabl e MEETA, YOLIS Edwards Primary Care Unavailable OWEN GOETZ Attending Unavailable MARCANTHONY, JULISSA E Referring Unavailabl e MEETA, YOLIS Edwards Primary Care Unavailable MARCANTHSJ, JULISSA E Referring Unavailabl e MEETA, YOLIS J Primary Care Unavailable OWEN GOETZ Attending Unavailable CARLOS TURNER Attending Unavailable BECKI, JULISSA E Referring Unavailabl e MEETA, YOLIS Edwards Primary Care Unavailable Yolis Tim MD Primary Care Provider Yolis Tim MD Primary Care Provider Yolis Tim MD Primary Care Provider Debra Swain PA-C Primary Care Provider [phone] Debra SWAIN Attending Unavailable MEETA, YOLIS Edwards Primary Care Unavailable DAT MILLER Referring Unavailable MEETA, YOLIS Edwards Primary Care Unavailable Debra SWAIN Attending Unavailable MEETA, YOLIS Edwards Primary Care Unavailable MINA DAT Referring Unavailable MEETA, YOLIS J Primary Care Unavailable DAT MILLER Referring Unavailable MEETA, YOLIS J Primary Care Unavailable DAT MILLER Attending Unavailable MEETA, YOLIS Edwards Primary Care Unavailable YOLIS TIM Attending Unavailable MEETA, YOLIS Edwards Primary Care Unavailable Debra SWAIN Referring Unavailable MEETA, YOLIS Edwards Primary Care Unavailable Debra SWAIN Attending Unavailable MEETA, YOLIS Edwards Primary Care Unavailable NETTIE CANALES Attending Unavailable MEETA, YOLIS Edwards Primary Care Unavailable MEETA, YOLIS Edwards Primary Care Unavailable Debra SWAIN Referring Unavailable Debra SWAIN Primary Care Unavailable Debra SWAIN Referring Unavailable Debra SWAIN Primary Care Unavailable Allergies Allergy Classification Reported Allergen(s) Allergy Type Date of Onset Reaction(s) Facility (7 sources) acetaminophen / HYDROcodone Drug Allergy 12-16-19 17 [facility] (7 sources) acetaminophen / oxyCODONE Drug Allergy 12-16-19 17 [facility] (7 sources) metoprolol Drug Allergy 12-16-19 17 [facility] (20 sources) Acetaminophen / HYDROcodone; Translations: [HYDROCODONE-ACET AMINOPHEN] Drug Allergy 02-25-20 11 Hives, Itching [facility] Repository (20 sources) Acetaminophen / oxyCODONE; Translations: [OXYCODONE-ACETAM INOPHEN] Drug Allergy 12-23-19 13 Other: See Comments [facility] Rep[facility] (20 sources) Latex; Translations: [LATEX] Propensity to adverse reactions to drug (disorder) 05-19-19 10 [facility] (20 sources) Metoprolol; Translations: [METOPROLOL] Drug Allergy 07-28-19 12 [facility] (20 sources) Doxycycline; Translations: [DOXYCYCLINE] Drug Allergy 01-15-20 20 [facility] Work Phone: (20 sources) Tomatoes; Translations: [TOMATOES] Propensity to adverse reactions 09-19-19 10 Swelling [facility] Medications Current Medications Medication Drug Class(es) Dates Sig (Normalized) Sig (Original) amoxicillin 875 mg / clavulanate 125 mg oral tablet (1 source) Penicillin-class Antibacterial Start: 03-10-2022 End: 03-15-2022 take 1 tablet by mouth twice daily amoxicillin-clavu lanic acid (AUGMENTIN) 875-125 mg per tablet Indications: Acute non-recurrent sinusitis, unspecified location Take 1 tablet by mouth twice daily for 5 days. 10 tablet 0 03/10/2022 03/15/2022 Active Completed/Discontinued Medications Medication Drug Class(es) Dates Sig (Normalized) Sig (Original) acetaminophen 500 mg oral tablet (8 sources) Start: 07-09-2021 End: 02-11-2022 take 2 tablets by mouth every six hours as needed acetaminophen (TYLENOL EXTRA STRENGTH) 500 mg tablet Take 2 tablets by mouth every 6 hours as needed for pain. 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] Episodic Conditions associated with dizziness or vertigo (1 source) Vertigo; Translations: [Dizziness and giddiness] Episodic Deficiency and other anemia (2 sources) Iron deficiency anemia; Translations: [Iron deficiency anemia, unspecified] Episodic Esophageal disorders (20 sources) Gastro-esophageal reflux disease without esophagitis; Translations: [Gastroesophageal reflux disease] Onset: 11-14-2017 04-27-2021 Chronic Malaise and fatigue (2 sources) Fatigue; Translations: [Other fatigue] Episodic Miscellaneous mental health disorders (1 source) Psychosomatic factor in physical condition; Translations: [Psychological and behavioral factors associated with disorders or diseases classified elsewhere] Chronic Other circulatory disease (1 source) Respiratory symptom; Translations: [Other specified symptoms and signs involving the circulatory and respiratory systems] Episodic Other connective tissue disease (2 sources) Cramp in lower limb; Translations: [Cramp and spasm] Episodic Other gastrointestinal disorders (1 source) Abnormal intestinal absorption; Translations: [Intestinal malabsorption, unspecified] Chronic Other gastrointestinal disorders (2 sources) History of bypass of stomach; Translations: [Bariatric surgery status] Episodic Other gastrointestinal disorders (4 sources) History of bariatric surgical procedure; Translations: [Bariatric surgery status] Episodic Other gastrointestinal disorders (1 source) Acute constipation; Translations: [Constipation, unspecified] Episodic Other nutritional; endocrine; and metabolic disorders (2 sources) Morbid (severe) obesity due to excess calories; Translations: [Morbid (severe) obesity due to excess calories] Onset: 11-14-2017 Chronic Other nutritional; endocrine; and metabolic disorders (20 sources) Body mass index 40+ - severely obese; Translations: [Body mass index (BMI) 50.0-59.9, adult] Onset: 07-07-2021 Chronic Other nutritional; endocrine; and metabolic disorders (19 sources) Severe obesity; Translations: [Morbid (severe) obesity due to excess calories] Onset: 10-07-2009 09-08-2020 Chronic Other nutritional; endocrine; and metabolic disorders (20 sources) Morbid obesity; Translations: [Morbid (severe) obesity due to excess calories] Onset: 09-15-2020 09-15-2020 Chronic Other skin disorders (3 sources) Loss of hair; Translations: [Nonscarring hair loss, unspecified] Episodic Other skin disorders (3 sources) Cystic acne; Translations: [Acne vulgaris] Episodic Other upper respiratory infections (1 source) Acute sinusitis; Translations: [Acute sinusitis, unspecified] Episodic Residual codes; unclassified (1 source) Reduced libido; Translations: [Decreased libido] Episodic Skin and subcutaneous tissue infections (1 source) Cellulitis of skin; Translations: [Cellulitis, unspecified] Episodic Thyroid disorders (3 sources) Goiter; Translations: [Iodine-deficiency related diffuse (endemic) goiter] Onset: 11-22-2022 11-18-2022 Chronic Unclassified (2 sources) Body mass index (BMI) 45.0-49.9, adult; Translations: [Body mass index (BMI) 45.0-49.9, adult] Onset: 11-14-2017 Chronic Unclassified (14 sources) 34 weeks gestation of ; Translations: [37 weeks gestation of ] Onset: 12-15-2016 01-27-2017 Unclassified (7 sources) Loop electrosurgical excision procedure; Translations: [Other specified postprocedural states] Onset: 12-28-2016 12-28-2016 Unclassified (1 source) NO SHOW Past or Other Problems Problem Classification Problem Date Documented Da te Episodic/Chronic Abdominal pain (6 sources) Right upper quadrant pain; Translations: [Right upper quadrant pain] Onset: 09-21-2022 Episodic Biliary tract disease (19 sources) Cholelithiasis without obstruction; Translations: [Calculus of gallbladder without cholecystitis without obstruction] Onset: 12-26-2019 12-26-2019 Episodic Diabetes mellitus without complication (2 sources) Prediabetes; Translations: [Prediabetes] Onset: 05-14-2022 Episodic Early or threatened labor (7 sources) False labor; Translations: [False labor, unspecified] Onset: 03-02-2017 03-02-2017 Episodic Influenza (3 sources) Influenza due to Influenza A virus; Translations: [Influenza due to other identified influenza virus with other respiratory manifestations] Onset: 05-14-2022 Episodic Malposition; malpresentation (14 sources) Maternal care for other malpresentation of fetus, not applicable or unspecified; Translations: [Maternal care for other malpresentation of fetus, not applicable or unspecified] Onset: 01-12-2017 Resolved: 02-15-2017 02-15-2017 Episodic Nausea and vomiting (2 sources) Nausea; Translations: [Nausea] Onset: 09-21-2022 Episodic Normal and/or delivery (20 sources) Gestation period, 36 weeks; Translations: [Gestation period, 28 weeks] Onset: 12-15-2016 Resolved: 02-17-2017 02-10-2017 Episodic Nutritional deficiencies (20 sources) Iron deficiency; Translations: [Iron deficiency] Onset: 02-06-2021 02-06-2021 Episodic Other bone disease and musculoskeletal deformities (7 sources) Segmental and somatic dysfunction; Translations: [Segmental and somatic dysfunction of thoracic region] Onset: 12-21-2016 12-22-2016 Episodic Other complications of ; puerperium affecting management of mother (7 sources) Large for gestation age fetus; Translations: [Maternal care for excessive growth, third trimester, not applicable or unspecified] Onset: 12-29-2016 12-29-2016 Episodic Other complications of (14 sources) Decreased movements, third trimester, not applicable or unspecified; Translations: [Urinary tract infection in ] Onset: 12-29-2016 03-02-2017 Episodic Other complications of (19 sources) Spotting per vagina in ; Translations: [Spotting complicating , unspecified trimester] Onset: 07-15-2016 07-15-2016 Episodic Other complications of (19 sources) Previous operation to cervix affecting ; Translations: [Maternal care for other abnormalities of cervix, unspecified trimester] Onset: 07-15-2016 07-15-2016 Episodic Other female genital disorders (19 sources) History of premature labor; Translations: [Personal history of pre-term labor] Onset: 07-15-2016 07-15-2016 Episodic Other gastrointestinal disorders (1 source) Constipation, unspecified; Translations: [Acute constipation] Onset: 09-21-2022 Episodic Other gastrointestinal disorders (1 source) Bariatric surgery status; Translations: [S/P bariatric surgery] Onset: 05-14-2022 Episodic Other lower respiratory disease (19 sources) Solitary nodule of lung; Translations: [Solitary pulmonary nodule] Onset: 12-26-2019 12-26-2019 Episodic Other non-traumatic joint disorders (7 sources) Arthralgia of the pelvic region and thigh; Translations: [Pain in unspecified joint] Onset: 12-15-2016 12-15-2016 Episodic Other screening for suspected conditions (not mental disorders or infectious disease) (1 source) Encounter for screening for lipoid disorders; Translations: [Screening for lipid disorders] Onset: 05-14-2022 Episodic Other skin disorders (1 source) Nonscarring hair loss, unspecified; Translations: [Hair loss] Onset: 05-14-2022 Episodic Other skin disorders (1 source) Acne vulgaris; Translations: [Cystic acne] Onset: 05-14-2022 Episodic Residual codes; unclassified (20 sources) H/O: depression; Translations: [Personal history of other complications of , childbirth and the puerperium] Onset: 07-15-2016 07-15-2016 Episodic Residual codes; unclassified (19 sources) Family history of cystic fibrosis; Translations: [Family history of other endocrine, nutritional and metabolic diseases] Onset: 07-15-2016 07-15-2016 Episodic Residual codes; unclassified (1 source) Decreased libido; Translations: [Loss of libido] Onset: 05-14-2022 Episodic Unclassified (7 sources) Gestation period, 30 weeks; Translations: [30 weeks gestation of ] Onset: 12-15-2016 12-28-2016 Episodic Results Test Name Value Interpretation Reference Range Facil ity Vital Signs Date Time Vital Sign Value Performing Clinician Cayetano abraham 11-18-2022 11:19-0400 Body weight 90.27 kg NA Swain PA-C Work Phone: [facility] 11-18-2022 11:19-0400 Diastolic blood pressure 70 mm[Hg] NA Swain PA-C Work Phone: [facility] 11-18-2022 11:19-0400 Heart rate 89 /min NA Swain PA-C Work Phone: [facility] 11-18-2022 11:19-0400 Respiratory rate 16 /min NA Swain PA-C Work Phone: [facility] 11-18-2022 11:19-0400 SaO2% (BldA) [Mass fraction] 98 % NA Swain PA-C Work Phone: [facility] 11-18-2022 11:19-0400 Systolic blood pressure 120 mm[Hg] NA Swain PA-C Work Phone: [facility] 09-21-2022 12:56-0400 Body temperature 99.19 [degF] Dat Miller PA-C Work Phone: [facility] 09-21-2022 12:56-0400 Body weight 91.63 kg Dat Miller PA-C Work Phone: [facility] 09-21-2022 12:56-0400 Diastolic blood pressure 82 mm[Hg] Dat Miller PA-C Work Phone: [facility] 09-21-2022 12:56-0400 Heart rate 64 /min Dat Miller PA-C Work Phone: [facility] 09-21-2022 12:56-0400 Respiratory rate 20 /min Dat Miller PA-C Work Phone: [facility] 09-21-2022 12:56-0400 SaO2% (BldA) [Mass fraction] 97 % Dat Miller PA-C Work Phone: [facility] 09-21-2022 12:56-0400 Systolic blood pressure 116 mm[Hg] Dat Miller PA-C Work Phone: [facility] 05-14-2022 09:58-0500 Body weight 96.62 kg NA Swain PA-C Work Phone: [facility] 05-14-2022 09:58-0500 Diastolic blood pressure 64 mm[Hg] NA Swain PA-C Work Phone: [facility] 05-14-2022 09:58-0500 Heart rate 70 /min NA Swain PA-C Work Phone: [facility] 05-14-2022 09:58-0500 Respiratory rate 16 /min NA Swain PA-C Work Phone: [facility] 05-14-2022 09:58-0500 SaO2% (BldA) [Mass fraction] 96 % NA Swain PA-C Work Phone: [facility] 05-14-2022 09:58-0500 Systolic blood pressure 120 mm[Hg] NA Swain PA-C Work Phone: [facility] 04-21-2022 09:25-0500 Body temperature 100.9 [degF] Nettie Haagen CREDIT RISK ANALYST.COURT WORKER Work Phone: [facility] 04-21-2022 09:25-0500 Diastolic blood pressure 82 mm[Hg] Nettie Haagen CREDIT RISK ANALYST.COURT WORKER Work Phone: [facility] 04-21-2022 09:25-0500 Heart rate 86 /min Nettie Haagen CREDIT RISK ANALYST.COURT WORKER Work Phone: [facility] 04-21-2022 09:25-0500 Respiratory rate 18 /min Nettie Haagen CREDIT RISK ANALYST.COURT WORKER Work Phone: [facility] 04-21-2022 09:25-0500 SaO2% (BldA) [Mass fraction] 96 % Nettie Haagen CREDIT RISK ANALYST.COURT WORKER Work Phone: [facility] 04-21-2022 09:25-0500 Systolic blood pressure 124 mm[Hg] Nettie Haagen CREDIT RISK ANALYST.COURT WORKER Work Phone: [facility] 03-10-2022 09:06-0400 Body temperature 98.91 [degF] Josiah oGuld MD Work Phone: [facility] 03-10-2022 09:06-0400 Body weight 102.06 kg Josiah Gould MD Work Phone: [facility] 03-10-2022 09:06-0400 Diastolic blood pressure 80 mm[Hg] Josiah Gould MD Work Phone: [facility] 03-10-2022 09:06-0400 Heart rate 93 /min Josiah Gould MD Work Phone: [facility] 03-10-2022 09:06-0400 Respiratory rate 18 /min Josiah Gould MD Work Phone: [facility] 03-10-2022 09:06-0400 SaO2% (BldA) [Mass fraction] 98 % Josiah Gould MD Work Phone: [facility] 03-10-2022 09:06-0400 Systolic blood pressure 118 mm[Hg] Josiah Gould MD Work Phone: [facility] 02-11-2022 11:55-0400 Body weight 107.5 kg NA Swain PA-C Work Phone: [facility] 02-11-2022 11:55-0400 Diastolic blood pressure 76 mm[Hg] NA Swain PA-C Work Phone: [facility] 02-11-2022 11:55-0400 Heart rate 81 /min NA Swain PA-C Work Phone: [facility] 02-11-2022 11:55-0400 Respiratory rate 16 /min NA Swain PA-C Work Phone: [facility] 02-11-2022 11:55-0400 SaO2% (BldA) [Mass fraction] 98 % NA Swain PA-C Work Phone: [facility] 02-11-2022 11:55-0400 Systolic blood pressure 120 mm[Hg] NA Swain PA-C Work Phone: [facility] 11-10-2021 08:11-0400 Body weight 122.02 kg NA Swain PA-C Work Phone: [facility] 11-10-2021 08:11-0400 Diastolic blood pressure 72 mm[Hg] NA Swain PA-C Work Phone: [facility] 11-10-2021 08:11-0400 Heart rate 74 /min NA Swain PA-C Work Phone: [facility] 11-10-2021 08:11-0400 SaO2% (BldA) [Mass fraction] 99 % NA Swain PA-C Work Phone: [facility] 11-10-2021 08:11-0400 Systolic blood pressure 114 mm[Hg] SUKHWINDER Swain PA-C Work Phone: [facility] 09-28-2021 16:01-0400 Body height 167.6 cm Scooby Pollock MD Work Phone: [facility] 09-28-2021 16:01-0400 Body weight 129.82 kg Scooby Pollock MD Work Phone: [facility] 08-12-2021 10:58-0400 Body height 167.6 cm Fellow [address] Work Phone: [facility] 08-12-2021 10:58-0400 Body weight 140.62 kg Fellow Main Work Phone: [facility] 08-11-2021 12:51-0400 Body height 167.[address] Work Phone: [facility] 08-11-2021 12:51-0400 Body weight 140.[address] Work Phone: [facility] 03-02-2017 08:53-0400 BMI (Body Mass Index) 47.98 kg/m2 Julissa Doherty MD [facility] 03-02-2017 08:53-0400 Body Temperature 97.5 [degF] Julissa Doherty MD [facility] 03-02-2017 08:53-0400 BP Diastolic 70 mm[Hg] Julissa Doherty MD [facility] 03-02-2017 08:53-0400 BP Systolic 111 mm[Hg] Julissa Doherty MD [facility] 03-02-2017 08:53-0400 Pulse (Heart Rate) 80 /min Julissa Doherty MD [facility] 03-02-2017 08:53-0400 Respiratory Rate 16 /min Julissa Doherty MD [facility] 03-02-2017 08:53-0400 Weight 138.98 kg Julissa Doherty MD [facility] 12-15-2016 11:14-0400 Height 170.18 cm Julissa Doherty MD [facility] Encounters Encounter Date Encounter Type Care Provider Facility Start: 02-04-2023 Telephone encounter Phyllis rogers MD Work Phone: General Surgery Procedures Date Procedure Procedure Detail Performing Clinician Start: 11-22-2022 Us soft tissue head & neck real time imge simim M Rm Swain PA-C Work Phone: Start: 12-02-2021 Adult depression scr eening assessment Asia Eduardo PhD Work Phone: Start: 07-26-2021 Adult depression scr eening assessment Summer Bender RD Work Phone: Start: 03-02-2017 End: 03-02-2017 nonstress test Julissa echeverria MD Work Phone: Start: 03-02-2017 End: 03-02-2017 Us uterus limited 1/> fetuses Julissa Doherty MD Work Phone: Start: 01-12-2017 End: 02-15-2017 *CUUID - Urine MOHAN Culture - Identificatn Laura Martino INSOLVENCY PRACTITIONER Work Phone: Start: 12-29-2016 End: 02-15-2017 Us preg uterus after 1st trimest 1/ gestation Laura Martino INSOLVENCY PRACTITIONER Work Phone: Start: 12-21-2016 End: 12-22-2016 Chiropractic manipulative tx spinal 1-2 regions Juana Palafox DC Work Phone: Plan of Treatment Date Care Activity Detail Author Start: 05-06-2025 HPV TESTING HPV TESTING [facility] Start: 05-06-2025 PAP TESTING PAP TESTING [facility] Start: 09-24-2023 COVID-19 VACCINE (#1) COVID-19 VACCI NE (#1) [facility] Immunizations Immunization Date Immunization Notes Care Provider Fa sylvester 02-24-2011 influenza virus vaccine, unspecified formulation Summer Bender RD Work Phone: [facility] Work Phone: 12-06-2005 tetanus and diphther ia toxoids, adsorbed, preservative free, for adult use (2 Lf of tetanus toxoid and 2 Lf of diphtheria toxoid) Summer Bender RD Work Phone: [facility] Work Phone: 12-12-2001 measles, mumps and rubella virus vaccine Summer Bender RD Work Phone: [facility] Work Phone: 12-30-1994 diphtheria, tetanus toxoids and acellular pertussis vaccine Summer Bender RD Work Phone: [facility] Work Phone: 12-30-1994 poliovirus vaccine, inactivated Summer Bender RD Work Phone: [facility] Work Phone: 11-16-1990 diphtheria, tetanus toxoids and pertussis vaccine Summer Bender RD Work Phone: [facility] Work Phone: 11-16-1990 poliovirus vaccine, inactivated Summer Bender RD Work Phone: [facility] Work Phone: 08-03-1990 haemophilus influenz ae type b vaccine, conjugate unspecified formulation Summer Bender RD Work Phone: [facility] Work Phone: 08-03-1990 measles, mumps and rubella virus vaccine Summer Bender RD Work Phone: [facility] Work Phone: 1989 diphtheria, tetanus toxoids and pertussis vaccine Summer Bender RD Work Phone: [facility] Work Phone: 1989 diphtheria, tetanus toxoids and pertussis vaccine Summer Bender RD Work Phone: [facility] Work Phone: 1989 poliovirus vaccine, inactivated Summer Bender RD Work Phone: [facility] Work Phone: 1989 diphtheria, tetanus toxoids and pertussis vaccine Summer Bender RD Work Phone: [facility] Work Phone: 1989 poliovirus vaccine, inactivated Summer Bender RD Work Phone: [facility] Work Phone: Payers Date Payer Category Payer Medicaid [id number] 2016 Medicaid [id number] 2016 Medicaid [id number] [facility] MEDICAID [id number] 2016-Present [phone] [address] [place] [address] Medicaid [id number] 2016 Medicaid [id number] 1989 Unknown [id number] 1989 Unknown [id number] 1989 Unknown [id number] 1989 Unknown [id number] 1989 Unknown [id number] 1989 Unknown [id number] Self-pay Unknown Social History Date Type Detail Facility Start: 07-18-2012 End: 02-11-2022 Tobacco smoking status NHIS Ex-smoker [facility] End: 11-23-2006 History of tobacco use Current smoker [facility] End: 11-23-2006 History of tobacco use Cigarette Smoker [facility] Start: 07-18-2012 End: 02-11-2022 Tobacco use and exposure Smokeless tobacco non-user [facility] Start: 07-28-2021 End: 11-18-2022 Alcohol intake Ex-drinker (finding) [facility] Start: 07-27-2021 End: 05-11-2022 History SDOH Alcohol Frequency 1 [facility] Start: 07-27-2021 History SDOH Alcohol Std Drinks 98 [facility] Start: 09-08-2020 History SDOH Alcohol Comment stopped 08/19/2017 [facility] Start: 07-27-2021 End: 05-11-2022 History SDOH Social Connections Phone 3 [facility] Start: 07-27-2021 End: 05-11-2022 History SDOH Social Connections Get Together 2 [facility] Start: 07-27-2021 History SDOH Social Connections Living 8 [facility] Start: 07-27-2021 End: 05-11-2022 History SDOH Physical Activity DPW 5 [facility] Start: 07-27-2021 History SDOH Financial 4 [facility] Start: 1990 Sex Assigned At Female [facility] Start: 07-17-2021 End: 03-10-2022 Exposure to SARS-CoV-2 (event) Not sure [facility] Start: 11-22-2021 End: 12-02-2021 Exposure to SARS-CoV-2 (event) Unable to assess [facility] Start: 05-11-2022 History SDOH Alcohol Std Drinks 0 [facility] Start: 05-11-2022 History SDOH Physica l Activity DPW 7 [facility] Start: 05-10-2022 End: 09-23-2022 History of Social function [facility] Start: 05-10-2022 End: 09-23-2022 Social connection and isolation panel [facility] Do you belong to any clubs or organizations such as methodist groups, unions, fraternal or athletic groups, or school groups? Yes [facility] Are you now , , , , never or living with a partner? [facility] How often to you hav e a drink containing alcohol? Never [facility] How many standard dr inks containing alcohol do you have on a typical day? Patient does not drink [facility] How hard is it for y ou to pay for the very basics like food, housing, medical care, and heating Somewhat hard [facility] Do you feel stress - tense, restless, nervous, or anxious, or unable to sleep at night because your mind is troubled all the time - these days [OSQ] Only a little [facility] (I/We) worried wheth er (my/our) food would run out before (I/we) got money to buy more. Never true [facility] In the past 12 month s, was there a time when you were not able to pay the mortgage or rent on time? No [facility] Start: 08-07-2020 Gender identity Identifies as female gender (finding) [facility] Start: 08-07-2020 Sexual orientation Heterosexual (sameer medley) [facility] Clinical Notes 01-01-2016 to 02-04-2023 Telephone Encounter - Georgina Alford RN - 02/04/2023 2:56 PM EDTTelephone Encounter - Baljit Malone - 12/23/2022 4:13 PM EDKathya Mistry RDMS - 11/22/2022 1:00 PM EDTPatient Instructions Note Date & Type Note Facility 02-04-2023 Miscellaneous Notes [facility] C[facility] COORDINATION TELEPHONE ENCOUNTER Phoned patient after received message from scheduling team. Follow up call placed to patient, no answer phone; left voice message with RN call back phone number. 02-09-2023 [id number] Follow up call placed to patient, no answer phone; left voice message with RN call back phone number. documented in this encounter [facility] 12-23-2022 Miscellaneous Notes called the pt and rescheduled her with Nettie Canales, pt is currently refusing to see Stu Swain because of recent thyroid issues she is having. Please try to schedule with other provider(s) if possible at pt's request. documented in this encounter [facility] 11-22-2022 Note HNO ID: [id number] Author: Kathya Jean RDMS Service: ? Author Type: Supervisor Pipelines Type: Progress Notes Filed: 11/22/2022 1:26 PM Note Text: Radiology Service Progress Note PATIENT NAME: Mary Junior DATE OF SERVICE: November 22, 2022 TIME: 1:26 PM PATIENT IDENTITY VERIFICATION COMPLETED USING TWO (2) IDENTIFIERS: Name and Date of confirmed by patient verbally. FALL SCREENING: Has the patient had 2 falls in the last year or 1 fall with injury or currently using an Ambulatory Assistive Device (Walker, Cane, Wheelchair, Crutches, etc.)? No PATIENT GENDER DATA: Female. status: : No status: NO. PATIENT RELEVANT IMPLANT DATA REVIEWED: Not Applicable RADIOLOGY DEPARTMENT: Ultrasound PERIPHERAL IV DATA: Not applicable SIGNED BY: Kathya Jean RDMS November 22, 2022 1:[address] [facility] 11-22-2022 History of Presen t illness Narrative Radiology Service Progress Note PATIENT NAME: Mary Junior DATE OF SERVICE: November 22, 2022 TIME: 1:26 PM PATIENT IDENTITY VERIFICATION COMPLETED USING TWO (2) IDENTIFIERS: Name and Date of confirmed by patient verbally. FALL SCREENING: Has the patient had 2 falls in the last year or 1 fall with injury or currently using an Ambulatory Assistive Device (Walker, Cane, Wheelchair, Crutches, etc.)? No PATIENT GENDER DATA: Female. status: : No status: NO. PATIENT RELEVANT IMPLANT DATA REVIEWED: Not Applicable RADIOLOGY DEPARTMENT: Ultrasound PERIPHERAL IV DATA: Not applicable SIGNED BY: Kathya Jean RDMS November 22, 2022 1:26 PM documented in this encounter [facility] 11-18-2022 Note HNO ID: [id number] Author: Debra Swain PA-C Service: ? Author Type: Physician Project Inspector Type: Progress Notes Filed: 11/18/2022 6:35 PM Note Text: 32 year old female with c/o here for follow up Gaining weight despite running, exercising in gym with certified athletic trainer 6 days 60-90 minutes. Abdominal pain from last time has resolved with seeing chiropractor. Reflux is gone, no medications. Anxiety and depression significantly improved with exercise regimen and healthy changes. Off medications and doing well. No migraines Having some night sweats, dry mouth 02/24/2021 lap vaginal hysterectomy, ovaries remain. HISTORIES FAMILY HISTORY Problem Relation Age of Onset Obesity Mother Diabetes Mother Heart Mother Hypertension Mother Blood Disease Father Arthritis Father Obesity Father Cancer Maternal Grandmother lung and liver Kidney Disease Maternal Grandfather Emphysema Paternal Grandmother Diabetes Maternal Uncle Coronary Artery Disease Maternal Uncle PAST MEDICAL HISTORY Diagnosis Date Abnormal Pap smear of cervix Class 3 severe obesity without serious comorbidity with body mass index (BMI) of 60.0 to 69.9 in adult (HCC) 10/07/2009 Esophagitis, unspecified High grade squamous intraepithelial lesion of cervix 01/01/2016 Iron deficiency 02/06/2021 Neck mass fatty deposit depression PAST SURGICAL HISTORY Procedure Laterality Date ESOPHAGOGASTRODUODENOSCOPY TRANSORAL DIAGNOSTIC 03/10/2012 EGD repeat 1 year FOOT SURGERY HX 2013 LEEP PROCEDURE (EMULSION OPERATOR DEPT)_*[place] 12/2015 TONSILLECTOMY PRIMARY/SECONDARY VAGINAL HYSTERECTOMY 02/24/2021 Dr Doherty Social History Tobacco Use Smoking status: Former Years: 0.50 Types: Cigarettes Quit date: 11/23/2006 Years since quittin.9 Smokeless tobacco: Never Vaping Use Vaping Use: Never used Substance Use Topics Alcohol use: Not Currently Comment: stopped 08/19/2017 Drug use: No ACTIVE PROBLEM LIST Class 3 Severe Obesity Without Serious Comorbidity With Body Mass Index (Bmi) of 60.0 to 69.9 in Adult ([facility]) Spotting in History of Loop Electrosurgical Excision Procedure (Leep) of Cervix Affecting History of Labor History of Depression History of Depression Family History of Cystic Fibrosis Panic Disorder Calculus of Gallbladder Without Cholecystitis Without Obstruction Incidental Lung Nodule, > 3mm and < 8mm Morbid Obesity ([facility]) Iron Deficiency Gerd (Gastroesophageal Reflux Disease) Severe Obesity (Bmi >= 40) ([facility]) Current Outpatient Medications Medication Sig Dispense Refill ondansetron orally disintegrating (ZOFRAN ODT) 4 mg disintegrating tablet Take 1 tablet by mouth every 8 hours as needed for nausea/vomiting. 30 tablet 0 omeprazole (PRILOSEC) 40 mg capsule Take 1 capsule by mouth once daily. [address] (PROTONIX) 40 mg tablet Take 1 tablet by mouth once daily. 90 tablet 3 No current facility-administered medications for this visit. There are no preventive care reminders to display for this patient. EXAM: BP 120/70 Pulse 89 Resp 16 Wt 90.3 kg (199 lb) LMP 08/28/2020 (Exact Date) SpO2 98% BMI 32.14 kg/m? Pleasant well appearing adult woman in no acute distress. Alert and oriented all spheres. Normal affect and cognition. Speech normal. No deficits to learning or comprehension. Skin warm, dry, pink to lips and nailbeds. Normal turgor. Respirations regular and unlabored. HEENT: NCAT. No scleral icterus or conjunctival injection. TM's clear. Nose and oropharynx free from injection or lesion. Oral membranes moist and pink. No cervical lymph nodes. Thyroid feels large, possible small right nodule, non-tender, no masses, or enlargement. Carotids pulses 2+/4+ without bruits. Extrem: no clubbing or cyanosis. Edema: none. Extremities are warm and pink with prompt capillary refill. ASSESSMENT/PLAN: 1. Panic disorder - ICD9: 300.01, ICD10: F41.0 (primary diagnosis) Resolved. Follow as needed 2. Thyromegaly - ICD9: 240.9, ICD10: E01.0 - TSH BLD - US THYROID/PARATHYROID 3. Morbid obesity (HCC) - ICD9: 278.01, ICD10: E66.01 No accurate reflection due to increase lean muscle mass. Doing very well. Consider body fat composition testing 4. Gastroesophageal reflux disease, unspecified whether esophagitis present - ICD9: 530.81, ICD10: K21.9 Resolved with weight loss. Follow up 1 year and as needed Debra Swain PA-C [facility] 11-18-2022 History of Presen t illness Narrative 32 year old female with c/o here for follow up Gaining weight despite running, exercising in gym with certified athletic trainer 6 days 60-90 minutes. Abdominal pain from last time has resolved with seeing chiropractor. Reflux is gone, no medications. Anxiety and depression significantly improved with exercise regimen and healthy changes. Off medications and doing well. No migraines Having some night sweats, dry mouth 02/24/2021 lap vaginal hysterectomy, ovaries remain. HISTORIES FAMILY HISTORY Problem Relation Age of Onset Obesity Mother Diabetes Mother Heart Mother Hypertension Mother Blood Disease Father Arthritis Father Obesity Father Cancer Maternal Grandmother lung and liver Kidney Disease Maternal Grandfather Emphysema Paternal Grandmother Diabetes Maternal Uncle Coronary Artery Disease Maternal Uncle PAST MEDICAL HISTORY Diagnosis Date Abnormal Pap smear of cervix Class 3 severe obesity without serious comorbidity with body mass index (BMI) of 60.0 to 69.9 in adult ([facility]) 10/07/2009 Esophagitis, unspecified High grade squamous intraepithelial lesion of cervix 01/01/2016 Iron deficiency 02/06/2021 Neck mass fatty deposit depression PAST SURGICAL HISTORY Procedure Laterality Date ESOPHAGOGASTRODUODENOSCOPY TRANSORAL DIAGNOSTIC 03/10/2012 EGD repeat 1 year FOOT SURGERY HX 2013 LEEP PROCEDURE (EMULSION OPERATOR DEPT)_*[place] 12/2015 TONSILLECTOMY PRIMARY/SECONDARY <AGE 11 VAGINAL HYSTERECTOMY 02/24/2021 Dr Doherty Social History Tobacco Use Smoking status: Former Years: 0.50 Types: Cigarettes Quit date: 11/23/2006 Years since quittin.9 Smokeless tobacco: Never Vaping Use Vaping Use: Never used Substance Use Topics Alcohol use: Not Currently Comment: stopped 08/19/2017 Drug use: No ACTIVE PROBLEM LIST Class 3 Severe Obesity Without Serious Comorbidity With Body Mass Index (Bmi) of 60.0 to 69.9 in Adult ([facility]) Spotting in History of Loop Electrosurgical Excision Procedure (Leep) of Cervix Affecting History of Labor History of Depression History of Depression Family History of Cystic Fibrosis Panic Disorder Calculus of Gallbladder Without Cholecystitis Without Obstruction Incidental Lung Nodule, > 3mm and < 8mm Morbid Obesity (Hcc) Iron Deficiency Gerd (Gastroesophageal Reflux Disease) Severe Obesity (Bmi >= 40) ([facility]) Current Outpatient Medications Medication Sig Dispense Refill ondansetron orally disintegrating (ZOFRAN ODT) 4 mg disintegrating tablet Take 1 tablet by mouth every 8 hours as needed for nausea/vomiting. 30 tablet 0 omeprazole (PRILOSEC) 40 mg capsule Take 1 capsule by mouth once daily. [address] (PROTONIX) 40 mg tablet Take 1 tablet by mouth once daily. 90 tablet 3 No current facility-administered medications for this visit. There are no preventive care reminders to display for this patient. EXAM: BP 120/70 Pulse 89 Resp 16 Wt 90.3 kg (199 lb) LMP 08/28/2020 (Exact Date) SpO2 98% BMI 32.14 kg/m Pleasant well appearing adult woman in no acute distress. Alert and oriented all spheres. Normal affect and cognition. Speech normal. No deficits to learning or comprehension. Skin warm, dry, pink to lips and nailbeds. Normal turgor. Respirations regular and unlabored. HEENT: NCAT. No scleral icterus or conjunctival injection. TM's clear. Nose and oropharynx free from injection or lesion. Oral membranes moist and pink. No cervical lymph nodes. Thyroid feels large, possible small right nodule, non-tender, no masses, or enlargement. Carotids pulses 2+/4+ without bruits. Extrem: no clubbing or cyanosis. Edema: none. Extremities are warm and pink with prompt capillary refill. ASSESSMENT/PLAN: 1. Panic disorder - ICD9: 300.01, ICD10: F41.0 (primary diagnosis) Resolved. Follow as needed 2. Thyromegaly - ICD9: 240.9, ICD10: E01.0 - TSH BLD - US THYROID/PARATHYROID 3. Morbid obesity (HCC) - ICD9: 278.01, ICD10: E66.01 No accurate reflection due to increase lean muscle mass. Doing very well. Consider body fat composition testing\ 4. Gastroesophageal reflux disease, unspecified whether esophagitis present - ICD9: 530.81, ICD10: K21.9 Resolved with weight loss. Follow up 1 year and as needed Debra Swain PA-C documented in this encounter [facility] 09-24-2022 Note HNO ID: [id number] Author: Kathya Jean RDMS Service: ? Author Type: Supervisor Pipelines Type: Progress Notes Filed: 09/24/2022 1:27 PM Note Text: Radiology Service Progress Note PATIENT NAME: Mary Junior DATE OF SERVICE: September 24, 2022 TIME: 1:27 PM PATIENT IDENTITY VERIFICATION COMPLETED USING TWO (2) IDENTIFIERS: Name and Date of confirmed by patient verbally. FALL SCREENING: Has the patient had 2 falls in the last year or 1 fall with injury or currently using an Ambulatory Assistive Device (Walker, Cane, Wheelchair, Crutches, etc.)? No PATIENT GENDER DATA: Female. status: : No status: NO. PATIENT RELEVANT IMPLANT DATA REVIEWED: Not Applicable RADIOLOGY DEPARTMENT: Ultrasound PERIPHERAL IV DATA: Not applicable SIGNED BY: Kathya Jean RDMS September 24, 2022 1:[address] [facility] 09-23-2022 Note HNO ID: [id number] Author: Debra Swain PA-C Service: ? Author Type: Physician Project Inspector Type: Progress Notes Filed: 09/25/2022 9:48 AM Note Text: 32 year old female with c/o abdominal and back pain x 1 week. Last Tuesday pain in upper right flank wrapping around to front. On and off constipation s/p surgery. Sx came on after defecating. Tuesday took mag citrate thinking constipation- very small BM. Tuesday pain so bad could hardly breathe. Went to [place] ED, labs, CT abd/pel WNL Has been doing 5 days a week at the gym, a lot of abdominal exercise. Tuesday saw Dat Miller PA-C Started on bland diet, tramadol , Zofran, Prilosec. Ordered labs. Last night migraine despite tramadol Today whole abdomen hurts. Component Latest Ref Rng AND Units 09/21/2022 WBC 3.70 - 11.00 k/uL 7.29 RBC 3.90 - 5.20 m/uL 4.64 Hemoglobin 11.5 - 15.5 g/dL 13.3 Hematocrit 36.0 - 46.0 % 41.8 MCV 80.0 - 100.0 fL 90.1 MCH 26.0 - 34.0 pg 28.7 MCHC 30.5 - 36.0 g/dL 31.8 RDW-CV 11.5 - 15.0 % 13.4 Platelet Count 150 - 400 k/uL 270 MPV 9.0 - 12.7 fL 10.2 Neut% % 64.2 Abs Neut (ANC) 1.45 - 7.50 k/uL 4.68 Lymph% % 30.5 Abs Lymph 1.00 - 4.00 k/uL 2.22 [place]% % 3.8 Abs [place] <0.87 k/uL 0.28 Eosin% % 1.1 Abs Eosin <0.46 k/uL 0.08 Baso% % 0.3 Abs Baso <0.11 k/uL <0.03 Immature Gran % % 0.1 IMMATURE GRANS (ABS) <0.10 k/uL <0.03 NRBC /100 WBC 0.0 Absolute nRBC <0.01 k/uL <0.01 DTYPE Auto Protein, Total 6.3 - 8.0 g/dL 6.9 Albumin 3.9 - 4.9 g/dL 4.2 Calcium 8.5 - 10.2 mg/dL 9.6 Bilirubin, Total 0.2 - 1.3 mg/dL 0.8 Alkaline Phosphatase 34 - 123 U/L 75 AST 13 - 35 U/L 18 ALT 7 - 38 U/L 21 Glucose 74 - 99 mg/dL 81 BUN 7 - 21 mg/dL 15 Creatinine 0.58 - 0.96 mg/dL 0.85 Sodium 136 - 144 mmol/L 136 Potassium 3.7 - 5.1 mmol/L 4.2 Chloride 97 - 105 mmol/L 102 CO2 22 - 30 mmol/L 25 Anion Gap 9 - 18 mmol/L 9 eGFR >=60 mL/min/1.73mA? 93 Lipase 16 - 61 U/L 25 Amylase 30 - 104 U/L 76 PSH: LEEP HISTORIES FAMILY HISTORY Problem Relation Age of Onset Obesity Mother Diabetes Mother Heart Mother Hypertension Mother Blood Disease Father Arthritis Father Obesity Father Cancer Maternal Grandmother lung and liver Kidney Disease Maternal Grandfather Emphysema Paternal Grandmother Diabetes Maternal Uncle Coronary Artery Disease Maternal Uncle PAST MEDICAL HISTORY Diagnosis Date Abnormal Pap smear of cervix Class 3 severe obesity without serious comorbidity with body mass index (BMI) of 60.0 to 69.9 in adult (HCC) 10/07/2009 Esophagitis, unspecified High grade squamous intraepithelial lesion of cervix 01/01/2016 Iron deficiency 02/06/2021 Neck mass fatty deposit depression PAST SURGICAL HISTORY Procedure Laterality Date ESOPHAGOGASTRODUODENOSCOPY TRANSORAL DIAGNOSTIC 03/10/2012 EGD repeat 1 year FOOT SURGERY HX 2013 LEEP PROCEDURE (EMULSION OPERATOR DEPT)_*[place] 12/2015 TONSILLECTOMY PRIMARY/SECONDARY VAGINAL HYSTERECTOMY 02/24/2021 Dr Doherty Social History Tobacco Use Smoking status: Former Years: 0.50 Types: Cigarettes Quit date: 11/23/2006 Years since quittin.8 Smokeless tobacco: Never Vaping Use Vaping Use: Never used Substance Use Topics Alcohol use: Not Currently Comment: stopped 08/19/2017 Drug use: No ACTIVE PROBLEM LIST Class 3 Severe Obesity Without Serious Comorbidity With Body Mass Index (Bmi) of 60.0 to 69.9 in Adult ([facility]) Spotting in History of Loop Electrosurgical Excision Procedure (Leep) of Cervix Affecting History of Labor History of Depression History of Depression Family History of Cystic Fibrosis Panic Disorder Calculus of Gallbladder Without Cholecystitis Without Obstruction Incidental Lung Nodule, > 3mm and < 8mm Morbid Obesity ([facility]) Iron Deficiency Gerd (Gastroesophageal Reflux Disease) Severe Obesity (Bmi >= 40) ([facility]) Current Outpatient Medications Medication Sig Dispense Refill ondansetron orally disintegrating (ZOFRAN ODT) 4 mg disintegrating tablet Take 1 tablet by mouth every 8 hours as needed for nausea/vomiting. 30 tablet 0 omeprazole (PRILOSEC) 40 mg capsule Take 1 capsule by mouth once daily. 30 capsule 1 traMADol (ULTRAM) 50 mg tablet Take 1 tablet by mouth twice daily as needed for pain. 4 tablet 0 fluticasone (FLONASE) 50 mcg/actuation nasal spray Use 2 Sprays in each nostril once daily. Rinse mouth after use. (Patient not taking: Reported on 09/21/2022) 1 Each 0 ASHWAGANDHA ROOT EXTRACT ORAL Take 600 mg by mouth. (Patient not taking: Reported on 09/21/2022) OTC PRODUCT LUMINEX ( Malik's Wart, [place] Seed, Folate, and, Vit B12) (Patient not taking: Reported on 09/21/2022) Lacto no.76/Bifido/FOS/larch (WOMEN'S PROBIOTIC ORAL) Take by mouth. (Patient not taking: Reported on 09/21/2022) meclizine (ANTIVERT) 12.5 mg tab Take 1 tablet by mouth every 6 hours as needed (dizziness). (Patient not taking: Repor (more content not included)... [facility] 09-21-2022 Note HNO ID: [id number] Author: RT Lenka(R) Service: Nuclear Medicine Author Type: Technologist Type: Progress Notes Filed: 09/21/2022 1:54 PM Note Text: Radiology Service Progress Note PATIENT NAME: Mary Junior DATE OF SERVICE: September 21, 2022 TIME: 1:42 PM PATIENT IDENTITY VERIFICATION COMPLETED USING TWO (2) IDENTIFIERS: Name and Date of confirmed by patient verbally. FALL SCREENING: Has the patient had 2 falls in the last year or 1 fall with injury or currently using an Ambulatory Assistive Device (Walker, Cane, Wheelchair, Crutches, etc.)? No PATIENT GENDER DATA: Female. status: : No status: NO. PATIENT RELEVANT IMPLANT DATA REVIEWED: Not Applicable RADIOLOGY DEPARTMENT: General X-ray: Exam(s) Completed: Abdomen X-Ray: Abdomen PERIPHERAL IV DATA: Not applicable SIGNED BY: Beth Eldridge, RT(R) September 21, 2022 1:[address] [facility] 09-21-2022 Note HNO ID: [id number] Author: Dat Miller PA-C Service: ? Author Type: Physician Project Inspector Type: Progress Notes Filed: 09/21/2022 2:02 PM Note Text: Chief Complaint Patient presents with: ER F/U: [facility] ER FU 09/20/22 HPI Mary Junior is a 32 year old female who presents here today for ER Follow Up.. Patient presented to ER on 09/20/2022 due to abdominal pain for the past week. She had labs and CT done yesterday that were both overall wnl. She had mildly elevated BUN and was given fluids. Pain is mostly RUQ and radiates to the back. She is now having left sided pain as well and up into her chest. She denies heart burn, nausea or vomiting. She also has pain in low back. Has been taking OTC gas-x. Hasn't been on anything for her reflux since after her surgery. Patient noted that at ER there was mention of her gallbladder. However she was under the impression that this was surgically removed which is what was noted in her notes from surgeon dating 07/2021. It was done during gastric bypass procedure. Past medical history, appointments, medications, allergies reviewed. Previous Medical History PAST MEDICAL HISTORY Diagnosis Date Abnormal Pap smear of cervix Class 3 severe obesity without serious comorbidity with body mass index (BMI) of 60.0 to 69.9 in adult (HCC) 10/07/2009 Esophagitis, unspecified High grade squamous intraepithelial lesion of cervix 01/01/2016 Iron deficiency 02/06/2021 Neck mass fatty deposit depression Previous Surgical History PAST SURGICAL HISTORY Procedure Laterality Date ESOPHAGOGASTRODUODENOSCOPY TRANSORAL DIAGNOSTIC 03/10/2012 EGD repeat 1 year FOOT SURGERY HX 2013 LEEP PROCEDURE (EMULSION OPERATOR DEPT)_*FL 12/2015 TONSILLECTOMY PRIMARY/SECONDARY VAGINAL HYSTERECTOMY 02/24/2021 Dr Doherty Family History FAMILY HISTORY Problem Relation Age of Onset Obesity Mother Diabetes Mother Heart Mother Hypertension Mother Blood Disease Father Arthritis Father Obesity Father Cancer Maternal Grandmother lung and liver Kidney Disease Maternal Grandfather Emphysema Paternal Grandmother Diabetes Maternal Uncle Coronary Artery Disease Maternal Uncle Patient Allergies ALLERGIES Allergen Reactions Doxycycline Hives Latex Metoprolol Hives SOB; hives; heart racing Percocet [Oxycodone* Other: See Comments Heart races,itching Vicodin [Hydrocodon* Hives, Itching Tomatoes Swelling Current Medications Current Outpatient Medications on File Prior to Visit Medication Sig fluticasone (FLONASE) 50 mcg/actuation nasal spray Use 2 Sprays in each nostril once daily. Rinse mouth after use. (Patient not taking: Reported on 09/21/2022) ASHWAGANDHA ROOT EXTRACT ORAL Take 600 mg by mouth. (Patient not taking: Reported on 09/21/2022) OTC PRODUCT Be SportEX ( Malik's Wart, Griff[place] Seed, Folate, and, Vit B12) (Patient not taking: Reported on 09/21/2022) Lacto no.76/Bifido/FOS/larch (WOMEN'S PROBIOTIC ORAL) Take by mouth. (Patient not taking: Reported on 09/21/2022) meclizine (ANTIVERT) 12.5 mg tab Take 1 tablet by mouth every 6 hours as needed (dizziness). (Patient not taking: Reported on 09/21/2022) folic acid 1 mg tablet Take 1 tablet by mouth once daily. (Patient not taking: Reported on 09/21/2022) ferrous sulfate 325 mg (65 mg iron) tablet Take 1 tablet by mouth daily with breakfast. (Patient not taking: Reported on 09/21/2022) BIOTIN ORAL Take by mouth. (Patient not taking: Reported on 09/21/2022) mecobalamin (B12 ACTIVE ORAL) Take by mouth. (Patient not taking: Reported on 09/21/2022) pantoprazole DR (PROTONIX) 40 mg tablet Take 1 tablet by mouth once daily. No current facility-administered medications on file prior to visit. Social History Social History Tobacco Use Smoking status: Former Years: 0.50 Types: Cigarettes Quit date: 11/23/2006 Years since quittin.8 Smokeless tobacco: Never Vaping Use Vaping Use: Never used Substance Use Topics Alcohol use: Not Currently Comment: stopped 08/19/2017 Drug use: No Review of Symptoms REVIEW OF SYSTEMS See hpi EXAM: BP 116/82 Pulse 64 Temp 37.3 ?C (99.2 ?F) (Tympanic) Resp 20 Wt 91.6 kg (202 lb) LMP 08/28/2020 (Exact Date) SpO2 97% BMI 32.62 kg/m? General Appearance: Well appearing, alert, in no acute distress, well-hydrated, well nourished.. Lungs: Lungs clear to auscultation. No wheezing, rhonchi, rales.. Heart: RRR without murmur, gallop, or rubs. No ectopy. Abdomen: BS hypoactive. Patient is tender throughout R side abdomen and epigastric region. No masses appreciated. . Health Maintenance List HEPATITIS B(1 of 3 - 3-dose series) Never done COVID-19 VACCINE(1) Never done DTAP,TDAP,TD(6 - Tdap) due on 12/07/2005 DEPRESSION ASSESSMENT Never done INFLUENZA(Season Ended) due on 01/07/2023 PAP TESTING due on 05/06/2025 HPV TESTING due on 05/06/2025 HEPATITIS C SCREENING Completed HIV SCREENING C (more content not included)... [facility] 09-21-2022 History of Presen t illness Narrative Chief Complaint Patient presents with: ER F/U: [facility] ER FU 09/20/22 [facility] Mary Junior is a 32 year old female who presents here today for ER Follow Up.. Patient presented to ER on 09/20/2022 due to abdominal pain for the past week. She had labs and CT done yesterday that were both overall wnl. She had mildly elevated BUN and was given fluids. Pain is mostly RUQ and radiates to the back. She is now having left sided pain as well and up into her chest. She denies heart burn, nausea or vomiting. She also has pain in low back. Has been taking OTC gas-x. Hasn't been on anything for her reflux since after her surgery. Patient noted that at ER there was mention of her gallbladder. However she was under the impression that this was surgically removed which is what was noted in her notes from surgeon dating 07/2021. It was done during gastric bypass procedure. Past medical history, appointments, medications, allergies reviewed. Previous Medical History PAST MEDICAL HISTORY Diagnosis Date Abnormal Pap smear of cervix Class 3 severe obesity without serious comorbidity with body mass index (BMI) of 60.0 to 69.9 in adult (HCC) 10/07/2009 Esophagitis, unspecified High grade squamous intraepithelial lesion of cervix 01/01/2016 Iron deficiency 02/06/2021 Neck mass fatty deposit depression Previous Surgical History PAST SURGICAL HISTORY Procedure Laterality Date ESOPHAGOGASTRODUODENOSCOPY TRANSORAL DIAGNOSTIC 03/10/2012 EGD repeat 1 year FOOT SURGERY HX 2013 LEEP PROCEDURE (EMULSION OPERATOR DEPT)_*[place] 12/2015 TONSILLECTOMY PRIMARY/SECONDARY <AGE 11 VAGINAL HYSTERECTOMY 02/24/2021 Dr Doherty Family History FAMILY HISTORY Problem Relation Age of Onset Obesity Mother Diabetes Mother Heart Mother Hypertension Mother Blood Disease Father Arthritis Father Obesity Father Cancer Maternal Grandmother lung and liver Kidney Disease Maternal Grandfather Emphysema Paternal Grandmother Diabetes Maternal Uncle Coronary Artery Disease Maternal Uncle Patient Allergies ALLERGIES Allergen Reactions Doxycycline Hives Latex Metoprolol Hives SOB; hives; heart racing Percocet [Oxycodone* Other: See Comments Heart races,itching Vicodin [Hydrocodon* Hives, Itching Tomatoes Swelling Current Medications Current Outpatient Medications on File Prior to Visit Medication Sig fluticasone (FLONASE) 50 mcg/actuation nasal spray Use 2 Sprays in each nostril once daily. Rinse mouth after use. (Patient not taking: Reported on 09/21/2022) ASHWAGANDHA ROOT EXTRACT ORAL Take 600 mg by mouth. (Patient not taking: Reported on 09/21/2022) OTC PRODUCT [employer] ( Malik's Wart, [place] Seed, Folate, and, Vit B12) (Patient not taking: Reported on 09/21/2022) Lacto no.76/Bifido/FOS/larch (WOMEN'S PROBIOTIC ORAL) Take by mouth. (Patient not taking: Reported on 09/21/2022) meclizine (ANTIVERT) 12.5 mg tab Take 1 tablet by mouth every 6 hours as needed (dizziness). (Patient not taking: Reported on 09/21/2022) folic acid 1 mg tablet Take 1 tablet by mouth once daily. (Patient not taking: Reported on 09/21/2022) ferrous sulfate 325 mg (65 mg iron) tablet Take 1 tablet by mouth daily with breakfast. (Patient not taking: Reported on 09/21/2022) BIOTIN ORAL Take by mouth. (Patient not taking: Reported on 09/21/2022) mecobalamin (B12 ACTIVE ORAL) Take by mouth. (Patient not taking: Reported on 09/21/2022) pantoprazole DR (PROTONIX) 40 mg tablet Take 1 tablet by mouth once daily. No current facility-administered medications on file prior to visit. Social History Social History Tobacco Use Smoking status: Former Years: 0.50 Types: Cigarettes Quit date: 11/23/2006 Years since quittin.8 Smokeless tobacco: Never Vaping Use Vaping Use: Never used Substance Use Topics Alcohol use: Not Currently Comment: stopped 08/19/2017 Drug use: No Review of Symptoms REVIEW OF SYSTEMS See hpi EXAM: BP 116/82 Pulse 64 Temp 37.3 C (99.2 F) (Tympanic) Resp 20 Wt 91.6 kg (202 lb) LMP 08/28/2020 (Exact Date) SpO2 97% BMI 32.62 kg/m General Appearance: Well appearing, alert, in no acute distress, well-hydrated, well nourished.. Lungs: Lungs clear to auscultation. No wheezing, rhonchi, rales.. Heart: RRR without murmur, gallop, or rubs. No ectopy. Abdomen: BS hypoactive. Patient is tender throughout R side abdomen and epigastric region. No masses appreciated. . Health Maintenance List HEPATITIS B(1 of 3 - 3-dose series) Never done COVID-19 VACCINE(1) Never done DTAP,TDAP,TD(6 - Tdap) due on 12/07/2005 DEPRESSION ASSESSMENT Never done INFLUENZA(Season Ended) due on 01/07/2023 PAP TESTING due on 05/06/2025 HPV TESTING due on 05/06/2025 HEPATITIS C SCREENING Completed HIV SCREENING Completed Data reviewed See HPI ASSESSMENT/PLAN: 1. RUQ pain - ICD9: 789.01, ICD10: R10.11 (primary diagnosis) Unclear etiology. Will attempt to reach out to radiology department at [facility] for further clarification on their findings in regards to the gallbladder/gallbladder neck. Will check additional and repeat labs. Assess stool burden with KUB today. Start omeprazole 40mg. Prn zofran A few dose of tramadol given. However advised patient that we need to know if pain is worsening. The tramadol is only to hopefully help her get some relief for sleep. May need EGD and gastro consult if not improving. - LIPASE BLD - AMYLASE BLD - COMP METABOLIC PANEL - CBC + DIFF - XR ABDOMEN 1V SUPINE - TRAMADOL 50 MG TABLET 2. Right flank pain - ICD9: 789.09, ICD10: R10.9 As above - US ABD RIGHT UPPER QUADRANT - XR ABDOMEN 1V SUPINE - TRAMADOL 50 MG TABLET 3. Nausea - ICD9: 787.02, ICD10: R11.0 - LIPASE BLD - AMYLASE BLD - COMP METABOLIC PANEL - CBC + DIFF 4. Epigastric pain - ICD9: 789.06, ICD10: R10.13 - AMYLASE BLD - COMP METABOLIC PANEL - CBC + DIFF - XR ABDOMEN 1V SUPINE 5. Acute constipation - ICD9: 564.00, ICD10: K59.00 - XR ABDOMEN 1V SUPINE Keep follow up with PCP team. Contact us sooner as needed. Discussed possible red flags and when to seek medical attention. Dat Miller PA-C documented in this encounter [facility] 07-22-2022 Note HNO ID: [id number] Author: Yolis Tim MD Service: ? Author Type: Physician Type: Progress Notes Filed: 07/22/2022 2:48 PM Note Text: Patient presents with: Sinus Problem HPI: Patient presents today for office visit for acute visit. ENT: Patient complains of sinus pressure. Duration: Tuesday Fever: Yes. Headache: Yes. Sore throat: Yes. Ear pain: Yes. Nasal drainage: Yes. Having pressure. Cough: Yes. Dry nonproductive. Shortness of breath: No. Nausea: Yes. Vomiting: Yes. Diarrhea: No. Previous treatment: using a natural sinus calm. After gastric bypass thought she was told could not take mucinex or sudafed. [facility] clinic on Tuesday and checked for COVID was negative. Treated with Zmax and almost completed but not feeling better. MEDICATIONS: Current Outpatient Medications Medication Sig ASHWAGANDHA ROOT EXTRACT ORAL Take 600 mg by mouth. Lacto no.76/Bifido/FOS/larch (WOMEN'S PROBIOTIC ORAL) Take by mouth. OTC PRODUCT LUMINEX ( Malik's Wart, [place] Seed, Folate, and, Vit B12) meclizine (ANTIVERT) 12.5 mg tab Take 1 tablet by mouth every 6 hours as needed (dizziness). folic acid 1 mg tablet Take 1 tablet by mouth once daily. ferrous sulfate 325 mg (65 mg iron) tablet Take 1 tablet by mouth daily with breakfast. BIOTIN ORAL Take by mouth. mecobalamin (B12 ACTIVE ORAL) Take by mouth. pantoprazole DR (PROTONIX) 40 mg tablet Take 1 tablet by mouth once daily. No current facility-administered medications for this visit. ALLERGIES: ALLERGIES Allergen Reactions Doxycycline Hives Latex Metoprolol Hives SOB; hives; heart racing Percocet [Oxycodone* Other: See Comments Heart races,itching Vicodin [Hydrocodon* Hives, Itching Tomatoes Swelling PAST MEDICAL HISTORY Diagnosis Date Abnormal Pap smear of cervix Class 3 severe obesity without serious comorbidity with body mass index (BMI) of 60.0 to 69.9 in adult (HCC) 10/07/2009 Esophagitis, unspecified High grade squamous intraepithelial lesion of cervix 01/01/2016 Iron deficiency 02/06/2021 Neck mass fatty deposit depression PAST SURGICAL HISTORY Procedure Laterality Date ESOPHAGOGASTRODUODENOSCOPY TRANSORAL DIAGNOSTIC 03/10/2012 EGD repeat 1 year FOOT SURGERY HX 2013 LEEP PROCEDURE (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 DEPT)_*[place] 12/2015 TONSILLECTOMY PRIMARY/SECONDARY VAGINAL HYSTERECTOMY 02/24/2021 Dr Doherty FAMILY HISTORY Problem Relation Age of Onset Obesity Mother Diabetes Mother Heart Mother Hypertension Mother Blood Disease Father Arthritis Father Obesity Father Cancer Maternal Grandmother lung and liver Kidney Disease Maternal Grandfather Emphysema Paternal Grandmother Diabetes Maternal Uncle Coronary Artery Disease Maternal Uncle Social History Tobacco Use Smoking status: Former Years: 0.50 Types: Cigarettes Quit date: 11/23/2006 Years since quittin.6 Smokeless tobacco: Never Vaping Use Vaping Use: Never used Substance Use Topics Alcohol use: Not Currently Comment: stopped 08/19/2017 Drug use: No Reviewed current medications, allergies, past medical history, surgical history, family history and social history today. REVIEW OF SYSTEMS All other reviewed and negative other than HPI. VITALS: BP 112/72 Pulse 77 Temp 36.8 ?C (98.2 ?F) (Tympanic) Wt 90.7 kg (200 lb) LMP 08/28/2020 (Exact Date) SpO2 97% BMI 32.30 kg/m? Last 4 Encounter Wt Readings: Date: Wt: 05/14/2022 96.6 kg (213 lb) 03/10/2022 102.1 kg (225 lb) 02/11/2022 107.5 kg (237 lb) 11/10/2021 122 kg (269 lb) PHYSICAL EXAMINATION: General appearance: Well appearing, alert, in no acute distress, well-hydrated, well nourished. Skin: Skin color, texture, turgor normal, no suspicious rashes or lesions Head: Normocephalic, no masses, lesions, tenderness or abnormalities Eyes: Anicteric sclera. Pupils are equally round and reactive to light. Extraocular movements are intact. Ears: External ears normal, canals clear, right tm is full and red Nose/Sinuses: Nares normal, septum midline, mucosa normal, no drainage or sinus tenderness Oropharynx: Lips, mucosa, and tongue normal, teeth and gums normal, oropharynx normal Neck: Supple, no adenopath Lungs: Lungs clear to auscultation. No wheezing, rhonchi, rales Heart: RRR without murmur, gallop, or rubs. No ectopy Abdomen: Normal abdominal exam, Abdomen soft, non-tender. Bowel sounds normal. No masses, organomegaly Extremities: No deformities, edema, skin discoloration, clubbing or cyanosis. Good capillary refill. ASSESSMENT/PLAN: 1. Acute otitis media, right - ICD9: 382.9, ICD10: H66.91 (primary diagnosis) - Discussed risks and benefits of new medication with the patient. Advised them to call if any side effects or questions. Red flags for re-assessment reviewed with patient in detail. Call if symptoms worsen at all or if not better in one to two weeks Reviewed diagnosis and treatment options in (more content not included)... [facility] 01-06-2023 Note HNO ID: [id number] Author: Debra Swain PA-C Service: ? Author Type: Physician Project Inspector Type: Progress Notes Filed: 05/14/2022 1:05 PM Note Text: 32 year old female with c/o [facility] 04/21/2022 f/u right ear infection [facility] clinic: treated with augmentin Notes: + cough. + n/v/d. Is taking fluids. She is using elderberry. Cannot take nsaids d/t gastric bypass. She reports that extra strength tylenol hypes her up. Testing + Influenza A States illness resolved. S/p bariatric surgery Current medications: Folic acid Bariatric vitamin From last visit: Hair loss: seems to be improving Leg cramps: not nearly as often. Using Gatorade Zero at least once a day Stopped Gatorade Hair loss was improving but now worsening- may have been stress with wedding. Trying to get 100oz water daily GERD Current medication: Pantoprazole 40mg AC stopped Current symptoms: none. Last Mg level if on PPI chronically: none. Heartburn is controlled: Yes. Dysphagia: No. Bloody or black stools: No. Bowel changes: No. Every morning to every other. Low libido: From last visit: Stage usual sexual interest is high, since her surgery she feels its been much lower. Part of this she relates to body image which she thought would improve following bariatric surgery but finds that she still sees her self as an attractive. Notes a large pouch where her skin hangs down which was embarrassing [place] swimsuit at the beach. Good relationship with partner. Status post hysterectomy Ashwagandha Hydradenitis suppurative HISTORIES FAMILY HISTORY Problem Relation Age of Onset Obesity Mother Diabetes Mother Heart Mother Hypertension Mother Blood Disease Father Arthritis Father Obesity Father Cancer Maternal Grandmother lung and liver Kidney Disease Maternal Grandfather Emphysema Paternal Grandmother Diabetes Maternal Uncle Coronary Artery Disease Maternal Uncle PAST MEDICAL HISTORY Diagnosis Date Abnormal Pap smear of cervix Class 3 severe obesity without serious comorbidity with body mass index (BMI) of 60.0 to 69.9 in adult (HCC) 10/07/2009 Esophagitis, unspecified High grade squamous intraepithelial lesion of cervix 01/01/2016 Iron deficiency 02/06/2021 Neck mass fatty deposit depression PAST SURGICAL HISTORY Procedure Laterality Date ESOPHAGOGASTRODUODENOSCOPY TRANSORAL DIAGNOSTIC 03/10/2012 EGD repeat 1 year FOOT SURGERY HX 2013 LEEP PROCEDURE (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 OPERATOR DEPT)_*[place] 12/2015 TONSILLECTOMY PRIMARY/SECONDARY VAGINAL HYSTERECTOMY 02/24/2021 Dr Doherty Social History Tobacco Use Smoking status: Former Years: 0.50 Types: Cigarettes Quit date: 11/23/2006 Years since quittin.4 Smokeless tobacco: Never Vaping Use Vaping Use: Never used Substance Use Topics Alcohol use: Not Currently Comment: stopped 08/19/2017 Drug use: No ACTIVE PROBLEM LIST Class 3 Severe Obesity Without Serious Comorbidity With Body Mass Index (Bmi) of 60.0 to 69.9 in Adult (Hcc) Spotting in History of Loop Electrosurgical Excision Procedure (Leep) of Cervix Affecting History of Labor History of Depression History of Depression Family History of Cystic Fibrosis Panic Disorder Calculus of Gallbladder Without Cholecystitis Without Obstruction Incidental Lung Nodule, > 3mm and < 8mm Morbid Obesity (Hcc) Iron Deficiency Gerd (Gastroesophageal Reflux Disease) Severe Obesity (Bmi >= 40) (Hcc) Current Outpatient Medications Medication Sig Dispense Refill meclizine (ANTIVERT) 12.5 mg tab Take 1 tablet by mouth every 6 hours as needed (dizziness). 30 tablet 1 folic acid 1 mg tablet Take 1 tablet by mouth once daily. 90 tablet 3 ferrous sulfate 325 mg (65 mg iron) tablet Take 1 tablet by mouth daily with breakfast. 90 tablet 3 BIOTIN ORAL Take by mouth. mecobalamin (B12 ACTIVE ORAL) Take by mouth. pantoprazole DR (PROTONIX) 40 mg tablet Take 1 tablet by mouth once daily. 90 tablet 3 No current facility-administered medications for this visit. HEPATITIS B(1 of 3 - 3-dose series) Never done COVID-19 VACCINE(1) Never done PNEUMOCOCCAL(1 - PCV) Never done DTAP,TDAP,TD(6 - Tdap) due on 12/07/2005 INFLUENZA(1) due on 01/07/2022 DEPRESSION ASSESSMENT Never done EXAM: BP 120/64 Pulse 70 Resp 16 Wt 96.6 kg (213 lb) LMP 08/28/2020 (Exact Date) SpO2 96% BMI 34.40 kg/m? Pleasant well appearing overweight woman maintaining weight loss in no acute distress. Alert and oriented all spheres. Normal affect and cognition. Speech normal. No deficits to learning or comprehension. Skin warm, dry, pink to lips and nailbeds. Normal turgor. Respirations regular and unlabored. HEENT: NCAT. No scleral icterus or conjunctival injection. TM's clear. Nose and oropharynx free from injection or lesion. Oral membranes moist and pink. No cervical lymph nodes. Thyroid non-tender, no masses, o (more content not included)... [facility] 05-14-2022 History of Presen t illness Narrative 32 year old female with c/o Saw [facility] 04/21/2022 f/u right ear infection [facility] NOW clinic: treated with augmentin Notes: + cough. + n/v/d. Is taking fluids. She is using elderberry. Cannot take nsaids d/t gastric bypass. She reports that extra strength tylenol hypes her up. Testing + Influenza A States illness resolved. S/p bariatric surgery Current medications: Folic acid Bariatric vitamin From last visit: Hair loss: seems to be improving Leg cramps: not nearly as often. Using Gatorade Zero at least once a day Stopped Gatorade Hair loss was improving but now worsening- may have been stress with wedding. Trying to get 100oz water daily GERD Current medication: Pantoprazole 40mg AC stopped Current symptoms: none. Last Mg level if on PPI chronically: none. Heartburn is controlled: Yes. Dysphagia: No. Bloody or black stools: No. Bowel changes: No. Every morning to every other. Low libido: From last visit: Stage usual sexual interest is high, since her surgery she feels its been much lower. Part of this she relates to body image which she thought would improve following bariatric surgery but finds that she still sees her self as an attractive. Notes a large pouch where her skin hangs down which was embarrassing in her swimsuit at the beach. Good relationship with partner. Status post hysterectomy Ashwagandha Hydradenitis suppurative HISTORIES FAMILY HISTORY Problem Relation Age of Onset Obesity Mother Diabetes Mother Heart Mother Hypertension Mother Blood Disease Father Arthritis Father Obesity Father Cancer Maternal Grandmother lung and liver Kidney Disease Maternal Grandfather Emphysema Paternal Grandmother Diabetes Maternal Uncle Coronary Artery Disease Maternal Uncle PAST MEDICAL HISTORY Diagnosis Date Abnormal Pap smear of cervix Class 3 severe obesity without serious comorbidity with body mass index (BMI) of 60.0 to 69.9 in adult ([facility]) 10/07/2009 Esophagitis, unspecified High grade squamous intraepithelial lesion of cervix 01/01/2016 Iron deficiency 02/06/2021 Neck mass fatty deposit depression PAST SURGICAL HISTORY Procedure Laterality Date ESOPHAGOGASTRODUODENOSCOPY TRANSORAL DIAGNOSTIC 03/10/2012 EGD repeat 1 year FOOT SURGERY HX 2013 LEEP PROCEDURE (EMULSION OPERATOR DEPT)_*FL 12/2015 TONSILLECTOMY PRIMARY/SECONDARY <AGE 11 VAGINAL HYSTERECTOMY 02/24/2021 Dr Doherty Social History Tobacco Use Smoking status: Former Years: 0.50 Types: Cigarettes Quit date: 11/23/2006 Years since quittin.4 Smokeless tobacco: Never Vaping Use Vaping Use: Never used Substance Use Topics Alcohol use: Not Currently Comment: stopped 08/19/2017 Drug use: No ACTIVE PROBLEM LIST Class 3 Severe Obesity Without Serious Comorbidity With Body Mass Index (Bmi) of 60.0 to 69.9 in Adult (Hcc) Spotting in History of Loop Electrosurgical Excision Procedure (Leep) of Cervix Affecting History of Labor History of Depression History of Depression Family History of Cystic Fibrosis Panic Disorder Calculus of Gallbladder Without Cholecystitis Without Obstruction Incidental Lung Nodule, > 3mm and < 8mm Morbid Obesity (Hcc) Iron Deficiency Gerd (Gastroesophageal Reflux Disease) Severe Obesity (Bmi >= 40) (Hcc) Current Outpatient Medications Medication Sig Dispense Refill meclizine (ANTIVERT) 12.5 mg tab Take 1 tablet by mouth every 6 hours as needed (dizziness). 30 tablet 1 folic acid 1 mg tablet Take 1 tablet by mouth once daily. 90 tablet 3 ferrous sulfate 325 mg (65 mg iron) tablet Take 1 tablet by mouth daily with breakfast. 90 tablet 3 BIOTIN ORAL Take by mouth. mecobalamin (B12 ACTIVE ORAL) Take by mouth. pantoprazole DR (PROTONIX) 40 mg tablet Take 1 tablet by mouth once daily. 90 tablet 3 No current facility-administered medications for this visit. HEPATITIS B(1 of 3 - 3-dose series) Never done COVID-19 VACCINE(1) Never done PNEUMOCOCCAL(1 - PCV) Never done DTAP,TDAP,TD(6 - Tdap) due on 12/07/2005 INFLUENZA(1) due on 01/07/2022 DEPRESSION ASSESSMENT Never done EXAM: BP 120/64 Pulse 70 Resp 16 Wt 96.6 kg (213 lb) LMP 08/28/2020 (Exact Date) SpO2 96% BMI 34.40 kg/m Pleasant well appearing overweight woman maintaining weight loss in no acute distress. Alert and oriented all spheres. Normal affect and cognition. Speech normal. No deficits to learning or comprehension. Skin warm, dry, pink to lips and nailbeds. Normal turgor. Respirations regular and unlabored. HEENT: NCAT. No scleral icterus or conjunctival injection. TM's clear. Nose and oropharynx free from injection or lesion. Oral membranes moist and pink. No cervical lymph nodes. Thyroid non-tender, no masses, or enlargement. Carotids pulses 2+/4+ without bruits. No JVD with HOB at 30 degrees. Chest is normal shape. Lungs are clear to all jung with good air exchange through out. HRRR without murmur or gallop. No lifts, heaves, or rubs. Extrem: no clubbing or cyanosis. Edema: none. Extremities are warm and pink with prompt capillary refill. ASSESSMENT/PLAN: 1. S/P bariatric surgery - ICD9: V45.86, ICD10: Z98.84 (primary diagnosis) Stable, doing well. - COMP METABOLIC PANEL 2. Hair loss - ICD9: 704.00, ICD10: L65.9 Variable progress. 3. Cystic acne - ICD9: 706.1, ICD10: L70.0 Using topical c 4. Influenza A - ICD9: 487.1, ICD10: J10.1 resolved 5. Loss of libido - ICD9: 799.81, ICD10: R68.82 Still an issue 6. Prediabetes - ICD9: 790.29, ICD10: R73.03 - HGB A1C - COMP METABOLIC PANEL 7. Screening for lipid disorders - ICD9: V77.91, ICD10: Z13.220 - LIPID PANEL BASIC Debra Swain PA-C documented in this encounter [facility] 04-22-2022 Miscellaneous Notes The following approved medication requests have been transmitted electronically. Requested Prescriptions Signed Prescriptions Disp Refills meclizine (ANTIVERT) 12.5 mg tab 30 tablet 1 Sig: Take 1 tablet by mouth every 6 hours as needed (dizziness). Debra Swain PA-C documented in this encounter [facility] 04-22-2022 Miscellaneous Notes Detailed message sent to pt Have her review mychart. + Flu A The following approved medication requests have been transmitted electronically. Requested Prescriptions Signed Prescriptions Disp Refills oseltamivir (TAMIFLU) 75 mg capsule 10 capsule 0 Sig: Take 1 capsule by mouth twice daily for 5 days. Authorizing Provider: Debra SWAIN PA-C documented in this encounter [facility] 04-21-2022 Influenza virus A and B RNA and SARS-CoV-2 (COVID-19) N gene panel JATIN+probe (Resp) COVID 19 RESULT: SARS-CoV-2 (Agent of COVID-19) Not Detected by RT-PCR or equivalent method. vandana [id number] (ANTIONE)_EUA This test was developed and its performance characteristics determined by [facility]'s [facility] [place]. This test has been authorized by FDA under an Emergency Use Authorization (EUA). This test has been validated in accordance with the FDA's Guidance Document Policy for Diagnostics Testing in Laboratories Certified to Perform High Complexity Testing under CLIA prior to Emergency use Authorization for Coronavirus Disease 2019 during the Public Health Emergency issued on July 07, 2019. Test performed by [facility], [facility] [place], [facility] [place] [address]. INFLUENZA A PCR: Positive for Influenza A by RT-PCR INFLUENZA B PCR: Negative for Influenza B by RT-PCR [facility] documented as of this encounter (statuses as of 08/11/2021) [facility]-25-2016 History of Past illness Narrative* Problem Noted Date Resolved Date 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 01/01/2016 09/08/2020 Overview: S/p LEEP bx, follow up PAP in 2017 was negative Difficulty walking 12/14/2012 10/22/2015 Fracture of 5th metatarsal 07/21/201210/21 Esophagitis, unspecified 03/10/2012 016 Weight gain 08/21/2009 10/22/2015 Obesity 08/21/2009 10/22/2015 documented as of this encounter (statuses as of 08/12/2021) [facility] History of Past illness Narrative* Problem Noted Date Resolved Date 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 01/01/2016 09/08/2020 Overview: S/p LEEP bx, follow up PAP in 2017 was negative Difficulty walking 12/14/2012 10/22/2015 Fracture of 5th metatarsal 07/21/201210/21 Esophagitis, unspecified 03/10/2012 016 Weight gain 08/21/2009 10/22/2015 Obesity 08/21/2009 10/22/2015 documented as of this encounter (statuses as of 10/01/2021) [facility] History of Past illness Narrative* Problem Noted Date Resolved Date 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 01/01/2016 09/08/2020 Overview: S/p LEEP bx, follow up PAP in 2017 was negative Difficulty walking 12/14/2012 10/22/2015 Fracture of 5th metatarsal 07/21/201210/21 Esophagitis, unspecified 03/10/2012 016 Weight gain 08/21/2009 10/22/2015 Obesity 08/21/2009 10/22/2015 documented as of this encounter (statuses as of 11/10/2021) [address]25-2016 History of Past illness Narrative* Problem Noted Date Resolved Date 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 01/01/2016 09/08/2020 Overview: S/p LEEP bx, follow up PAP in 2017 was negative Difficulty walking 12/14/2012 10/22/2015 Fracture of 5th metatarsal 07/21/201210/21 Esophagitis, unspecified 03/10/2012 016 Weight gain 08/21/2009 10/22/2015 Obesity 08/21/2009 10/22/2015 documented as of this encounter (statuses as of 11/14/2021) [facility] History of Past illness Narrative* Problem Noted Date Resolved Date 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 01/01/2016 09/08/2020 Overview: S/p LEEP bx, follow up PAP in 2017 was negative Difficulty walking 12/14/2012 10/22/2015 Fracture of 5th metatarsal 07/21/201210/21 Esophagitis, unspecified 03/10/2012 016 Weight gain 08/21/2009 10/22/2015 Obesity 08/21/2009 10/22/2015 documented as of this encounter (statuses as of 11/14/2021) [address]25-2016 History of Past illness Narrative* Problem Noted Date Resolved Date 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 01/01/2016 09/08/2020 Overview: S/p LEEP bx, follow up PAP in 2017 was negative Difficulty walking 12/14/2012 10/22/2015 Fracture of 5th metatarsal 07/21/201210/21 Esophagitis, unspecified 03/10/2012 016 Weight gain 08/21/2009 10/22/2015 Obesity 08/21/2009 10/22/2015 documented as of this encounter (statuses as of 12/07/2021) [address]25-2016 History of Past illness Narrative* Problem Noted Date Resolved Date 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 01/01/2016 09/08/2020 Overview: S/p LEEP bx, follow up PAP in 2017 was negative Difficulty walking 12/14/2012 10/22/2015 Fracture of 5th metatarsal 07/21/201210/21 Esophagitis, unspecified 03/10/2012 016 Weight gain 08/21/2009 10/22/2015 Obesity 08/21/2009 10/22/2015 documented as of this encounter (statuses as of 02/11/2022) [facility] History of Past illness Narrative* Problem Noted Date Resolved Date 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 01/01/2016 09/08/2020 Overview: S/p LEEP bx, follow up PAP in 2017 was negative Difficulty walking 12/14/2012 10/22/2015 Fracture of 5th metatarsal 07/21/201210/21 Esophagitis, unspecified 03/10/2012 016 Weight gain 08/21/2009 10/22/2015 Obesity 08/21/2009 10/22/2015 documented as of this encounter (statuses as of 03/10/2022) [address]25-2016 History of Past illness Narrative* Problem Noted Date Resolved Date 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 01/01/2016 09/08/2020 Overview: S/p LEEP bx, follow up PAP in 2017 was negative Difficulty walking 12/14/2012 10/22/2015 Fracture of 5th metatarsal 07/21/201210/21 Esophagitis, unspecified 03/10/2012 016 Weight gain 08/21/2009 10/22/2015 Obesity 08/21/2009 10/22/2015 documented as of this encounter (statuses as of 04/21/2022) [address]25-2016 History of Past illness Narrative* Problem Noted Date Resolved Date 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 01/01/2016 09/08/2020 Overview: S/p LEEP bx, follow up PAP in 2017 was negative Difficulty walking 12/14/2012 10/22/2015 Fracture of 5th metatarsal 07/21/201210/21 Esophagitis, unspecified 03/10/2012 016 Weight gain 08/21/2009 10/22/2015 Obesity 08/21/2009 10/22/2015 documented as of this encounter (statuses as of 04/22/2022) [address]25-2016 History of Past illness Narrative* Problem Noted Date Resolved Date 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 01/01/2016 09/08/2020 Overview: S/p LEEP bx, follow up PAP in 2017 was negative Difficulty walking 12/14/2012 10/22/2015 Fracture of 5th metatarsal 07/21/201210/21 Esophagitis, unspecified 03/10/2012 016 Weight gain 08/21/2009 10/22/2015 Obesity 08/21/2009 10/22/2015 documented as of this encounter (statuses as of 05/15/2022) [facility] History of Past illness Narrative* Problem Noted Date Resolved Date 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 01/01/2016 09/08/2020 Overview: S/p LEEP bx, follow up PAP in 2017 was negative Difficulty walking 12/14/2012 10/22/2015 Fracture of 5th metatarsal 07/21/201210/21 Esophagitis, unspecified 03/10/2012 016 Weight gain 08/21/2009 10/22/2015 Obesity 08/21/2009 10/22/2015 documented as of this encounter (statuses as of 06/07/2022) [facility] History of Past illness Narrative* Problem Noted Date Resolved Date 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 01/01/2016 09/08/2020 Overview: S/p LEEP bx, follow up PAP in 2017 was negative Difficulty walking 12/14/2012 10/22/2015 Fracture of 5th metatarsal 07/21/201210/21 Esophagitis, unspecified 03/10/2012 016 Weight gain 08/21/2009 10/22/2015 Obesity 08/21/2009 10/22/2015 documented as of this encounter (statuses as of 09/21/2022) [address]25-2016 History of Past illness Narrative* Problem Noted Date Diagnosed Date Resolved Date High grade squamous intraepi thelial lesion of cervix 01/01/2016 09/08/2020 Overview: S/p LEEP bx, follow up PAP in 2017 was negative Difficulty walking 12/14/2012 6 Fracture of 5th metatarsal 07/21/2012 0 10/22/2015 Esophagitis, unspecified 03/10/2012 Weight gain 08/21/2009 10/22/2015 Obesity 08/21/2009 10/22/2015 documented as of this encounter (statuses as of 11/19/2022) [facility] History of Past illness Narrative* Problem Noted Date Diagnosed Date Resolved Date High grade squamous intraepi thelial lesion of cervix 01/01/2016 09/08/2020 Overview: S/p LEEP bx, follow up PAP in 2017 was negative Difficulty walking 12/14/2012 6 Fracture of 5th metatarsal 07/21/2012 0 10/22/2015 Esophagitis, unspecified 03/10/2012 Weight gain 08/21/2009 10/22/2015 Obesity 08/21/2009 10/22/2015 documented as of this encounter (statuses as of 12/24/2022) [facility] History of Past illness Narrative* Problem Noted Date Diagnosed Date Resolved Date High grade squamous intraepi thelial lesion of cervix 01/01/2016 09/08/2020 Overview: S/p LEEP bx, follow up PAP in 2017 was negative Difficulty walking 12/14/2012 6 Fracture of 5th metatarsal 07/21/2012 0 10/22/2015 Esophagitis, unspecified 03/10/2012 Weight gain 08/21/2009 10/22/2015 Obesity 08/21/2009 10/22/2015 documented as of this encounter (statuses as of 02/11/2023) [facility] History of Past illness Narrative* Problem Noted Date Diagnosed Date Resolved Date High grade squamous intraepi thelial lesion of cervix 01/01/2016 09/08/2020 Overview: S/p LEEP bx, follow up PAP in 2017 was negative Difficulty walking 12/14/2012 6 Fracture of 5th metatarsal 07/21/2012 0 10/22/2015 Esophagitis, unspecified 03/10/2012 Weight gain 08/21/2009 10/22/2015 Obesity 08/21/2009 10/22/2015 documented as of this encounter (statuses as of 03/13/2023) [facility] note* Diagnosis Impaired intestinal absorption- Primary Unspecified intestinal malabsorption S/P gastric bypass Bariatric surgery status Body mass index 50.0-59.9, adult (HCC) Body Mass Index 50.0-59.9, adult Dietary counseling and surveillance Dietary surveillance and counseling [facility]* Diagnosis Body mass index 50.0-59.9, adult (HCC)- Primary Body Mass Index 50.0-59.9, adult S/P gastric bypass Bariatric surgery status [facility] Diagnosis NO SHOW- Primary [facility]* Diagnosis Hair loss- Primary Alopecia, unspecified Fatigue, unspecified type S/P bariatric surgery Bariatric surgery status Leg cramps Cramp of limb Cystic acne Other acne [facility]* Diagnosis Iron deficiency anemia, unspecified iron deficiency anemia type- Primary Folic acid deficiency Other B-complex deficiencies S/P bariatric surgery Bariatric surgery status [facility] Diagnosis Psychological factors affecting medical condition- Primary Psychic factors associated with diseases classified elsewhere Postgastric surgery syndrome Postgastric surgery syndromes [facility] Diagnosis Iron deficiency anemia, unspecified iron deficiency anemia type- Primary Folic acid deficiency Other B-complex deficiencies S/P bariatric surgery Bariatric surgery status Hair loss Alopecia, unspecified Fatigue, unspecified type Leg cramps Cramp of limb Cystic acne Other acne Cellulitis of skin Cellulitis and abscess of unspecified site [facility] Diagnosis Acute non-recurrent sinusitis, unspecified location- Primary [facility] Diagnosis Upper respiratory symptom- Primary Other symptoms involving respiratory system and chest [facility] Diagnosis Influenza A- Primary Influenza with other respiratory manifestations [facility]* Diagnosis Vertigo- Primary Dizziness and giddiness [facility]* Diagnosis S/P bariatric surgery- Primary Bariatric surgery status Hair loss Alopecia, unspecified Cystic acne Other acne Influenza A Influenza with other respiratory manifestations Loss of libido Decreased libido Prediabetes Other abnormal glucose Screening for lipid disorders documented in this encounter [facility] note* Diagnosis RUQ pain- Primary Abdominal pain, right upper quadrant Right flank pain Abdominal pain, unspecified site Nausea Nausea alone Epigastric pain Abdominal pain, epigastric Acute constipation Unspecified constipation documented in this encounter [facility] note* Diagnosis Panic disorder- Primary Panic disorder without agoraphobia Thyromegaly Goiter, unspecified Morbid obesity (HCC) Morbid obesity Gastroesophageal reflux disease, unspecified whether esophagitis present documented in this encounter [facility] note* Diagnosis Thyromegaly Goiter, unspecified documented in this encounter [facility] for referral (narrative)* Diagnostic Procedure Only (Routine) - Closed Specialty Diagnoses / Procedures Referred By Contac t Referred To Contact XR IMAGING Diagnoses Right flank pain RUQ pain Epigastric pain Acute constipation Procedures XR ABDOMEN 1V SUPINE RADIOLOGIC EXAM ABDOMEN 1 VIEW Dat Miller PA-C [address] [place] [address] Xr Imaging Referral ID Status Reason Start Date Expiration Date V isits Requested Visits Authorized [id number] Closed Auto-Generate d Referral 09/21/2022 10/21/2023 1 1 * Diagnostic Procedure Only (Routine) - Authorized Specialty Diagnoses / Procedures Referred [facility] Referred To Contact US IMAGING Diagnoses Right flank pain Procedures US ABD RIGHT UPPER QUADRANT US ABDOMINAL REAL TIME W/IMAGE LIMITED Dat Miller PA-C [address] [place] [address] Us Imaging Referral ID Status Reason Start Date Expiration Date Visits Requested Visits Authorized [id number] Authorized Auto-Generat ed Referral 09/21/2022 10/21/2023 1 1 [facility] for referral (narrative)* Diagnostic Procedure Only (Routine) - Authorized Specialty Diagnoses / Procedures Referred By Contac t Referred To Contact US IMAGING Diagnoses Thyromegaly Procedures US THYROID/PARATHYROID US SOFT TISSUE HEAD & NECK REAL TIME IMGE Debra Doshi PA-C [address] [place] [address] Us Imaging Referral ID Status Reason Start Date Expiration Date Visits Requested Visits Authorized [id number] Authorized Auto-Generat ed Referral 11/18/2022 12/18/2023 1 1 [facility] Diagnostic Procedure Only (Routine) - Closed Specialty Diagnoses / Procedures Referred By Fabi jenkins Referred To Contact US IMAGING Diagnoses Thyromegaly Procedures US THYROID/PARATHYROID US SOFT TISSUE HEAD & NECK REAL TIME IMGE Debra Doshi PA-C [address] [place] [address] [place] [address] Referral ID Status Reason Start Date Expiration Date V isits Requested Visits Authorized [id number] Closed Auto-Generate d Referral 11/18/2022 12/18/2023 1 1 [facility] Summary Purpose Family History No Family History Records FoundNo Family History Records FoundNo Family History Records FoundNo Family History Records Found Advance Directives Documents on File Type Date Recorded 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 Source Comments (unrecognize d section and content) In the event this informatio n is protected by the Federal Confidentiality of Alcohol and Drug Abuse Patient Records regulations: The Federal rules restrict any use of the information to criminally investigate or prosecute any alcohol or drug abuse patient.[facility] the event this information is protected by the Federal Confidentiality of Alcohol and Drug Abuse Patient Records regulations: The Federal rules restrict any use of the information to criminally investigate or prosecute any alcohol or drug abuse patient.[facility] the event this information is protected by the Federal Confidentiality of Alcohol and Drug Abuse Patient Records regulations: The Federal rules restrict any use of the information to criminally investigate or prosecute any alcohol or drug abuse patient.[facility] Center[facility] the event this information is protected by the Federal Confidentiality of Alcohol and Drug Abuse Patient Records regulations: The Federal rules restrict any use of the information to criminally investigate or prosecute any alcohol or drug abuse patient.[facility] the event this information is protected by the Federal Confidentiality of Alcohol and Drug Abuse Patient Records regulations: The Federal rules restrict any use of the information to criminally investigate or prosecute any alcohol or drug abuse patient.[facility] the event this information is protected by the Federal Confidentiality of Alcohol and Drug Abuse Patient Records regulations: The Federal rules restrict any use of the information to criminally investigate or prosecute any alcohol or drug abuse patient.[facility] Center[facility] the event this information is protected by the Federal Confidentiality of Alcohol and Drug Abuse Patient Records regulations: The Federal rules restrict any use of the information to criminally investigate or prosecute any alcohol or drug abuse patient.[facility] the event this information is protected by the Federal Confidentiality of Alcohol and Drug Abuse Patient Records regulations: The Federal rules restrict any use of the information to criminally investigate or prosecute any alcohol or drug abuse patient.[facility] the event this information is protected by the Federal Confidentiality of Alcohol and Drug Abuse Patient Records regulations: The Federal rules restrict any use of the information to criminally investigate or prosecute any alcohol or drug abuse patient.[facility] Center[facility] the event this information is protected by the Federal Confidentiality of Alcohol and Drug Abuse Patient Records regulations: The Federal rules restrict any use of the information to criminally investigate or prosecute any alcohol or drug abuse patient.[facility] Center[facility] the event this information is protected by the Federal Confidentiality of Alcohol and Drug Abuse Patient Records regulations: The Federal rules restrict any use of the information to criminally investigate or prosecute any alcohol or drug abuse patient.[facility] Center[facility] the event this information is protected by the Federal Confidentiality of Alcohol and Drug Abuse Patient Records regulations: The Federal rules restrict any use of the information to criminally investigate or prosecute any alcohol or drug abuse patient.[facility] Center[facility] the event this information is protected by the Federal Confidentiality of Alcohol and Drug Abuse Patient Records regulations: The Federal rules restrict any use of the information to criminally investigate or prosecute any alcohol or drug abuse patient.[facility] CenterIn the event this information is protected by the Federal Confidentiality of Alcohol and Drug Abuse Patient Records regulations: The Federal rules restrict any use of the information to criminally investigate or prosecute any alcohol or drug abuse patient.[facility] CenterIn the event this information is protected by the Federal Confidentiality of Alcohol and Drug Abuse Patient Records regulations: The Federal rules restrict any use of the information to criminally investigate or prosecute any alcohol or drug abuse patient.[facility] Center[facility] the event this information is protected by the Federal Confidentiality of Alcohol and Drug Abuse Patient Records regulations: The Federal rules restrict any use of the information to criminally investigate or prosecute any alcohol or drug abuse patient.[facility] Center[facility] the event this information is protected by the Federal Confidentiality of Alcohol and Drug Abuse Patient Records regulations: The Federal rules restrict any use of the information to criminally investigate or prosecute any alcohol or drug abuse patient.[facility] Center[facility] the event this information is protected by the Federal Confidentiality of Alcohol and Drug Abuse Patient Records regulations: The Federal rules restrict any use of the information to criminally investigate or prosecute any alcohol or drug abuse patient.[facility] Center[facility] the event this information is protected by the Federal Confidentiality of Alcohol and Drug Abuse Patient Records regulations: The Federal rules restrict any use of the information to criminally investigate or prosecute any alcohol or drug abuse patient.[facility] Reason for Visit (unrecogniz ed section and content) Reason Comments Post Op Reason Onset Date Comments Post Op 3 mo No Show 10/01/2021 No show Reason Comments Muscle Aches Rash yeast Reason Comments Opened In Error Reason Comments Results Orders Reason Comments BMI Follow Up BMI Psych grp Reason Comments 6 Month Exam Reason Comments Nasal Congestion SHERRIE ear pain, ST, OROURKE x6 days Reason Comments Recheck Follow up- R ear inf ection; was seen at [facility] on 04/19 and started on antibiotic (Augmentin 875mg); fever last evening of 103.5 Reason Comments Results Reason Comments ER F/U [facility] ER FU 09/20/22 Reason Comments 6 Month Exam Reason Comments Returning Patient's Call Reason Comments Radiology US Specialty Diagnoses / Procedures Referred By Fabi t Referred To Contact US IMAGING Diagnoses Thyromegaly Procedures US THYROID/PARATHYROID US SOFT TISSUE HEAD & NECK REAL TIME IMGE Debra Doshi PA-C [address] [place] [address] [place] [address] Referral ID Status Reason Start Date Expiration Date V isits Requested Visits Authorized [id number] Closed Auto-Generate d Referral 11/18/2022 12/18/2023 1 1 Care Teams (unrecognized sec tion and content) Agent Telegrapher Relationship Specialty Start Date End Date Yolis Tim MD [address] [place] [address] PCP - General Family Practice 02/16/12 Agent Telegrapher Relationship Specialty Start Date End Date Yolis Tim MD [address] [place] [address] PCP - General Family Practice 02/16/12 Agent Telegrapher Relationship Specialty Start Date End Date Yolis Tim MD [address] [place] [address] PCP - General Family Practice 02/16/12 Agent Telegrapher Relationship Specialty Start Date End Date Yolis Tim MD [address] [place] [address] PCP - General Family Practice 02/16/12 Agent Telegrapher Relationship Specialty Start Date End Date Yolis Tim MD [address] [place] [address] PCP - General Family Practice 02/16/12 Agent Telegrapher Relationship Specialty Start Date End Date Yolis Tim MD [address] [place] [address] PCP - General Family Practice 02/16/12 Agent Telegrapher Relationship Specialty Start Date End Date Yolis Tim MD [address] [place] [address] PCP - General Family Medicine 02/16/12 Agent Telegrapher Relationship Specialty Start Date End Date Yolis Tim MD [address] [place] [address] PCP - General Family Medicine 02/16/12 Agent Telegrapher Relationship Specialty Start Date End Date Yolis Tim MD [address] [place] [address] PCP - General Family Medicine 02/16/12 Agent Telegrapher Relationship Specialty Start Date End Date Yolis Tim MD [address] [place] [address] PCP - General Family Medicine 02/16/12 Agent Telegrapher Relationship Specialty Start Date End Date Yolis Tim MD [address] [place] [address] PCP - General Family Medicine 02/16/12 Agent Telegrapher Relationship Specialty Start Date End Date Yolis Tim MD [address] [place] [address] PCP - General Family Medicine 02/16/12 Agent Telegrapher Relationship Specialty Start Date End Date Yolis Tim MD [address] [place] [address] PCP - General Family Medicine 02/16/12 Agent Telegrapher Relationship Specialty Start Date End Date Debra Swain PA-C [address] [place] [address] PCP - General Family Medicine 11/18/22 Agent Telegrapher Relationship Specialty Start Date End Date Debra Swain PA-C [address] [place], [place] [id number] PCP - [facility] 11/18/22 Agent Telegrapher Relationship Specialty Start Date End Date Debra Swain PA-C [address] [place], [place] [id number] PCP - [facility] 11/18/22 Agent Telegrapher Relationship Specialty Start Date End Date Debra Swain PA-C [address] [place], [place] [id number] PCP - [facility] 11/18/22 FOR RECORDS PERTAINING TO PATIENTS WHO ARE OR HAVE BEEN ENROLLED IN A CHEMICAL DEPENDENCY/SUBSTANCEABUSE PROGRAM, SOME INFORMATION MAY BE OMITTED. This clinical summary was aggregated from multiple sources. Caution should be exercised in using it in the provision of clinical care. This summary normalizes information from multiple sources, and as a consequence, information in this document may materially change the coding, format and clinical context of patient data. In addition, data may be omitted in some cases. CLINICAL DECISIONS SHOULD BE BASED ON THE PRIMARY CLINICAL RECORDS. [employer] [facility]. provides no warranty or guarantee of the accuracy or completeness of information in this document.
[2023-06-21 07:19] LABS: Absolute Lymphocyte Count 1.93 X10^3/uL (0.83-4.51); Absolute Neutrophil Count 2.1 X10^3/uL (2.0-7.7); Basophil# 0.01 X10^3/uL; Basophil% 0.2 % (0-1); Eosinophil# 0.15 X10^3/uL; Eosinophils% 3.3 % (0-5); Hematocrit 41.6 % (37-47); Hemoglobin 13.4 g/dL (12.0-15.0); Lymphocyte # 1.93 X10^3/ul (0.83-4.51); Lymphocyte % 43.1 % (19-41); Mean Corp Hgb Conc 32.2 g/dL (32-36); Mean Corpuscular Hgb 28.9 pg (27.0-32.0); Mean Corpuscular Volume 89.7 fL (81-99); Mean Platelet Vol. 9.4 fl (6.2-12.0); Monocyte# 0.26 X10^3/uL; Monocyte% 5.8 % (0-10); NRBC Flagged by Analyzer 0 % (0-5); Neutrophil # 2.13 X10^3/uL (2.7-7.7); Neutrophil % 47.6 % (47-70); Platelet Count 246 K/mm3 (150-450); RBC Distribution Width SD 42.7 fl (35.1-43.9); Red Blood Count 4.64 M/mm3 (4.2-5.4); White Blood Count 4.5 K/mm3 (4.4-11.0)
[2023-06-21 08:07] LABS: Vitamin B12 409 pg/mL (211-911); Vitamin D,25 Hydroxy 45.8 ng/mL
[2023-06-21 08:18] LABS: ALB/GLOB Ratio 1.1 RATIO (0.9-2.4); AST(SGOT) 21 U/L (15-37); Alanine Aminotransfer ALT/SGPT 37 U/L (13-56); Albumin, Serum 3.6 g/dL (3.2-5.0); Alkaline Phosphatase 72 U/L (45-117); Anion Gap 5 (5-15); BUN 19 mg/dL (7-18); BUN/Creat Ratio 24.5 RATIO (10-20); Chloride 109 mmol/L (98-107); Creatinine, Serum 0.78 mg/dL (0.55-1.02); EST Glomerular Filtration Rate 90 mL/min (>60); Est Glom Filt Rate - Afr Amer 109 mL/min (>60); Ferritin 17 ng/mL (8-252); Globulin 3.4 g/dL (2.2-4.2); Glucose 88 mg/dL (74-106); Iron 76 ug/dL (50-170); Magnesium 2.4 mg/dL (1.6-2.6); Potassium 4.2 mmol/L (3.5-5.1); Sodium Level 142 mmol/L (136-145); T4 Free Direct 1.04 ng/dL (0.76-1.46); Thyroid Stim Hormone (TSH) 1.41 uIU/mL (0.358-3.74)
[2023-06-28 06:08] LABS: Zinc, Plasma or Serum 74 ug/dL (44-115)
== END | disposition home or self-care (01) ==
PROVIDERS: PCP Family Medicine; Referring Provider Internal Medicine Endocrinology, Diabetes & Metabolism; Visit Provider Internal Medicine Endocrinology, Diabetes & Metabolism
DX: E04.2 Nontoxic multinodular goiter (principal); E06.3 Autoimmune thyroiditis; E55.9 Vitamin D deficiency, unspecified; Z98.84 Bariatric surgery status
CPT/HCPCS: 36415; 80053; 82306; 82607; 82728; 83540; 83735; 84439; 84443; 84630; 85025

== ENCOUNTER → 2024-03-14 | Outpatient (CLI) | payer MEDICAID, SELFPAY | END | disposition home or self-care (01) | LOC: OPBI 09:16 | PROVIDERS: PCP Family Medicine; Referring Provider Obstetrics & Gynecology; Visit Provider Obstetrics & Gynecology | DX: N63.10 Unspecified lump in the right breast, unspecified quadrant (principal) | CPT/HCPCS: 77062; 76642; 77066; G0279 ==

== ENCOUNTER → 2024-05-21 | Outpatient (CLI) | payer MEDICAID, SELFPAY ==
[2024-05-21 13:02] LABS: PTHIN 84.1 pg/mL (18.4-80.1)
[2024-05-21 13:18] LABS: Calcium,Total 9.5 mg/dL (8.5-10.1)
[2024-05-21 13:28] LABS: Estradiol 69.3 pg/mL; Follicle Stimulating Hormone 5.4 mIU/mL
== END | disposition home or self-care (01) ==
LOC: BWCLAB 10:13
PROVIDERS: Surgery; PCP Family Medicine; Referring Provider Obstetrics & Gynecology; Visit Provider Obstetrics & Gynecology
DX: N95.1 Menopausal and female climacteric states (principal); E04.2 Nontoxic multinodular goiter
CPT/HCPCS: 36415; 82310; 82670; 83001; 83970

== ENCOUNTER → 2024-05-30 | Outpatient (CLI) | payer MEDICAID, SELFPAY ==
--- NOTE | 2024-05-30 15:03 | US_ITS ---
STUDY: THYROID ULTRASOUND REASON FOR EXAM: Female, 34 years old. yearly check nodule follow-up TECHNIQUE: Ultrasound evaluation of the thyroid was performed with real-time and static rocha-scale imaging. COMPARISON: None. FINDINGS: RIGHT LOBE: The right lobe of the thyroid gland measures 6.1 x 2.4 x 2.0 cm. There is a heterogeneous echotexture. Numerous small nodules and cysts are scattered throughout the entire gland consistent with multinodular goiter. A few dominant nodules are present in the inferior pole measuring 1.4 cm and 9 mm respectively with hyperplastic/adenomatous features. Comparison can be made with the outside images which are not available for review. LEFT LOBE: The left lobe of the thyroid gland measures 5.3 x 2.0 x 1.5 cm. There is a heterogeneous echotexture. There are no demonstrated solid, cystic or complex lesions. No demonstrated dominant nodules. ISTHMUS: The isthmus measures 6 mm. No demonstrated masses or fluid collections or cysts or lymphadenopathy in the surrounding tissues. Mild to moderate enlargement of the thyroid gland. US/Thyroid IMPRESSION: 1. Multinodular goiter. A few dominant nodules are present in the inferior pole measuring 1.4 cm and 9 mm respectively with hyperplastic/adenomatous features. Comparison can be made with the outside images which are not available for review. 2. TR2: 2 points = not suspicious 3. If physical symptoms, abnormal thyroid values or other findings warrant further radiologic assessment repeat the study and consider nuclear medicine iodine 123 or PET/CT if there is concern for malignancy. 4. Targeted image guided biopsy of nodules of interest can also be performed with definitive pathologic assessment and diagnosis. ACR Thyroid Imaging Reporting and Data System (ACR TI-RADS) Reference: COMPOSITION (choose 1): Cystic or almost completely cystic - 0 points Spongiform- 0 points Mixed cystic and solid - 1 point Solid almost completely solid - 2 points ECHOGENICITY (choose 1): Anechoic space - 0 points Hyperechoic or isoechoic-1 point Hypoechoic-2 points Very hypoechoic-3 points SHAPE (choose 1): : Wider than tall-0 points Taller than wide-3 points MARGINS ( smooth, lobular, ill-defined) ECHOGENIC FOCI (macro or microcalcifications) Scoring and classification TR1: 0 points = benign TR2: 2 points = not suspicious TR3: 3 points = mildly suspicious TR4: 4-6 points = moderately suspicious TR5: ?7 points = highly suspicious Recommendations TR1: no FNA required TR2: no FNA required TR3: ?1.5 cm follow up, ?2.5 cm FNA = follow up: 1, 3 and 5 years TR4: ?1.0 cm follow up, ?1.5 cm FNA = follow up: 1, 2, 3 and 5 years TR5: ?0.5 cm follow up, ?1.0 cm FNA = annual follow up for up to 5 years FNA biopsy is recommended for suspicious lesions (TR3-TR5) with the above size criteria. If there are multiple nodules, the two with the highest ACR TI-RADS scores should be sampled (rather than the two largest), with largest size being used a tie-breaker if there are multiple nodules of the same classification. Electronically Signed: Irving Milton MD at 22:11 EST Reading Location ID and State: [facility] / [place] , Service support ,
== END | disposition home or self-care (01) ==
LOC: US 14:55
PROVIDERS: PCP Family Medicine; Referring Provider Surgery; Visit Provider Surgery
DX: E04.1 Nontoxic single thyroid nodule (principal)
CPT/HCPCS: 76536

== ENCOUNTER 2024-11-07 03:05 | Emergency (ER) | payer MEDICAID, SELFPAY ==
[2024-11-07 03:07] VITALS: BP 127/84; PULSE 106; RESP 18; TEMP 38.2; O2SAT 100; BMI 38.7
--- NOTE | 2024-11-07 03:50 | CT_ITS ---
PROCEDURE: ABDOMEN/PELVIS W IV CONT ONLY 11/07/2024 REASON FOR EXAM: ABD PAIN TECHNIQUE: ABDOMEN/PELVIS W IV CONT ONLY Coronal and Sagittal reconstruction series were provided. CONTRAST: Isovue 3 7 VOLUME: 100 mL One or more dose reduction techniques were used (e.g., Automated exposure control, adjustment of the mA and/or kV according to patient size, use of iterative reconstruction technique. RADIATION DOSE SUMMARY: CTDlvol: 22 mGy DLP: 1217 mGycm COMPARISON: 09/20/2022 FINDINGS: Dependent atelectasis. Normal heart size. Small liver cyst. Status post cholecystectomy. Unremarkable pancreas, spleen, adrenal glands, kidneys. No hydronephrosis. Normal bladder. Status post hysterectomy. No retroperitoneal or pelvic adenopathy. No free air. Status post gastric bypass. Nonobstructed bowel. Normal appendix. No acute large bowel findings. No acute abdominal wall findings. CT/Abdomen/Pelvis W IV Cont ONLY IMPRESSION: No acute findings. Reading Location: [place] [address]
--- NOTE | 2024-11-07 03:50 | CT_ITS ---
PROCEDURE: ABDOMEN/PELVIS W IV CONT ONLY 11/07/2024 REASON FOR EXAM: ABD PAIN TECHNIQUE: ABDOMEN/PELVIS W IV CONT ONLY Coronal and Sagittal reconstruction series were provided. CONTRAST: Isovue 3 7 VOLUME: 100 mL One or more dose reduction techniques were used (e.g., Automated exposure control, adjustment of the mA and/or kV according to patient size, use of iterative reconstruction technique. RADIATION DOSE SUMMARY: CTDlvol: 22 mGy DLP: 1217 mGycm COMPARISON: 09/20/2022 FINDINGS: Dependent atelectasis. Normal heart size. Small liver cyst. Status post cholecystectomy. Unremarkable pancreas, spleen, adrenal glands, kidneys. No hydronephrosis. Normal bladder. Status post hysterectomy. No retroperitoneal or pelvic adenopathy. No free air. Status post gastric bypass. Nonobstructed bowel. Normal appendix. No acute large bowel findings. No acute abdominal wall findings. CT/Abdomen/Pelvis W IV Cont ONLY IMPRESSION: No acute findings. Reading Location: [place] [address]
--- OUTSIDE RECORDS SUMMARY | 2024-11-07 03:55 | XMS RPT_ITS | CCD ---
Author Organization [facility] Care Team Providers Care Home Care Administrator Name Role Phone LILIAM Dee RN, Ping Coles Unavailable Unavailjose alberto Dee RN RN, Ping Coles Unavailable Unavailjose alberto Dee RN RN, Ping Coles Unavailable Unavailabl e Becki FOSTER, Julissa Lin Unavailable [phone] VALDEZ WOODALL Unavailable Unavailable SHABNAM, ASIF Unavailable Unavailable Zografakis, Masood Unavailable Unavailable Bittenbender, Peter Unavailable Unavailable [place], Asif Unavailable Unavailable Zografakis, Masood Unavailable Unavailable Bittenbender, Peter Unavailable Unavailable Shabnam, Asif Unavailable Unavailable Bittenbender, Peter Unavailable Unavailable Shabnam, Asif Unavailable Unavailable Wells, Unavailable Unavailable Wells, Unavailable Unavailable Bittenbender, Peter Unavailable Unavailable Shabnam, Asif Unavailable Unavailable Wells, Unavailable Unavailable Bittenbender, Peter Unavailable Unavailable Shabnam, Asif Unavailable Unavailable Wells, Unavailable Unavailable Bittenbender, Peter Unavailable Unavailable Shabnam, Asif Unavailable Unavailable Wells, Unavailable Unavailable Bittenbender, Peter Unavailable Unavailable Shabnam, Asif Unavailable Unavailable Wells, Unavailable Unavailable Bittenbender, Peter Unavailable Unavailable [place], Asif Unavailable Unavailable Wells, Unavailable Unavailable Bittenbender, Peter Unavailable Unavailable Shabnam, Asif Unavailable Unavailable Zografakis, Masood Unavailable Unavailable Bittenbender, Peter Unavailable Unavailable Shabnam, Asif Unavailable Unavailable RumgagelGeorgeSweetie Unavailable Unavailable Bittenbender, Peter Unavailable Unavailable [place], Asif Unavailable Unavailable Bittenbender, Peter Unavailable Unavailable Shabnam, Asif Unavailable Unavailable Zografakis, Masood Unavailable Unavailable Bittenbender, Peter Unavailable Unavailable Shabnam, Asif Unavailable Unavailable NORRIS, CELESTE Attending Unavailable BECKI, JULISSA Lin Referring Unavailabl e SHABNAM, ASIF Edwards Primary Care Unavailable LARRY RAMAN Attending Unavailable MARCANTHONY, JULISSA E Referring Unavailabl e SHABNAM, ASIF Edwards Primary Care Unavailable CARLOS TURNER Attending Unavailable MARCANTHSJ, JULISSA E Referring Unavailabl e SHABNAM, ASIF Edwards Primary Care Unavailable BISHNU, OWEN T Attending Unavailable MARCSTEF, JULISSA Lin Referring Unavailabl e SHABNAM, ASIF Edwards Primary Care Unavailable MARCANTHSJ, JULISSA E Referring Unavailabl e SHABNAM, ASIF Edwards Primary Care Unavailable BISHNU, OWEN T Attending Unavailable JOHNNY, CARLOS Attending Unavailable STEPHANIEANTHSJ, JULISSA Lin Referring Unavailabl e SHABNAM, ASIF Edwards Primary Care Unavailable Asif Haque MD Primary Care Provider Asif Haque MD Primary Care Provider Asif Haque MD Primary Care Provider Shabnam, Dr. Gold Primary Care Provider Shabnam, Dr. Gold Referring Provider STEVAN Rodriguez Attending Provider Debra Swain PA-C Primary Care Provider Dr. Asif Haque Primary Care Provider Shabnam, Dr. Gold Referring Provider Dr. Felice Centeno Attending Provider Dr. Aj Carmichael Attending Provider Dr. Julissa Connell Attending Provider Debra Swain PA-C Primary Care Provider Asif Haque MD Primary Care Provider Asif Haque MD Primary Care Provider Jamieagen INSULATOR HELPER.CHILD DEVELOPMENT CONSULTANT, Nettie Unavailable Mahsa INSULATOR HELPER.CHILD DEVELOPMENT CONSULTANT, Kiera A Unavailable Dr. Asif Haque MD Primary Care Provider Dr. Felice Centeno MD Attending Provider Taryn FOSTER, Dr. Viveros Referring Provider Dr. Asif Haque MD Referring Provider Charles Rodriguez Attending Provider [place], Asif Primary Care Unavailable Felice Centeno Attending Unavailable Felice Centeno Referring Unavailable Julissa Connell Attending Unavailable [place], Asif Primary Care Unavailable MarcJulissa hanks Referring Unavailable Julissa Connell Attending Unavailable [place], Asif Primary Care Unavailable Shabnam, Asif Referring Unavailable Shabnam, Asif Primary Care Unavailable Herminio Cardozo Attending Unavailable Shabnam, Asif Referring Unavailable Shabnam, Asif Primary Care Unavailable Julissa Connell Attending Unavailable [place], Asif Referring Unavailable Herminio Cardozo Attending Unavailable Shabnam, Asif Primary Care Unavailable [place], Asif Referring Unavailable Charles Rodriguez Attending Unavailable [place], Asif Referring Unavailable Shabnam, Asif Primary Care Unavailable Shabnam, Asif Primary Care Unavailable Julissa Connell Attending Unavailable Julissa Connell Referring Unavailable JESSICA SWAIN Primary Care Unavailable PING ANSARI Referring Unavailable PING ANSARI Attending Unavailable SHABNAM, ASIF Edwards Primary Care Unavailable SHABNAM, ASIF J Primary Care Unavailable ALKHALED, MANUELA Referring Unavailable SHABNAM, ASIF J Primary Care Unavailable STEF LUIS Attending Unavailable STEF LUIS Referring Unavailable SHABNAM, ASIF J Primary Care Unavailable JESSICA SWAIN Primary Care Unavailable PING ANSARI Referring Unavailable BENDARAM, DONITA HICKS Attending Unavaila ble PING ANSARI Attending Unavailable SHABNAM, ASIF J Primary Care Unavailable ALKHALED, MANUELA Attending Unavailable SHABNAM, ASIF J Primary Care Unavailable SHABNAM, ASIF J Primary Care Unavailable ALKHALED, MANUELA Referring Unavailable DIMARINSTEF Breen Attending Unavailable SHABNAM, ASIF J Primary Care Unavailable ALKHALED, MANUELA Attending Unavailable SHABNAM, ASIF J Primary Care Unavailable STEF LUIS Attending Unavailable SHABNAM, ASIF J Primary Care Unavailable JESSICA SWAIN Primary Care Unavailable KIERA CARSON Attending Unavailable JESSICA SWAIN Primary Care Unavailable BENDARAM, DONITA HICKS Referring Unavaila ble JESSICA SWAIN Primary Care Unavailable STEF LUIS Attending Unavailable Allergies Allergy Classification Reported Allergen(s) Allergy Type Date of Onset Reaction(s) Facility Acetaminophen / HYDROcodone (1 source) Acetaminophen / HYDROcodone Drug Allergy 02-25-20 11 Hives, Itching [facility] Acetaminophen / oxyCODONE (1 source) Acetaminophen / oxyCODONE Drug Allergy 12-23-19 13 Itching [facility] Doxycycline (1 source) Doxycycline Drug Allergy 01-15-[facility] Latex (1 source) Latex Substance Allergy 05-19-19 10 Rash [facility] Metoprolol (1 source) Metoprolol Drug Allergy 07-28-19 12 Hives, Shortness of Breath [facility] (7 sources) acetaminophen / HYDROcodone Drug Allergy 12-16-19 17 [facility] (7 sources) acetaminophen / oxyCODONE Drug Allergy 12-16-19 17 [facility] (7 sources) metoprolol Drug Allergy 12-16-19 17 [facility] (20 sources) Acetaminophen / HYDROcodone; Translations: [HYDROCODONE-ACET AMINOPHEN] Drug Allergy 02-25-20 11 Hives, Itching [facility] (20 sources) Acetaminophen / oxyCODONE; Translations: [OXYCODONE-ACETAM INOPHEN] Drug Allergy 12-23-19 13 Other: See Comments, Itching [facility] (20 sources) Latex; Translations: [LATEX] Propensity to adverse reactions to drug (disorder) 05-19-19 10 Rash [facility] (20 sources) Metoprolol; Translations: [METOPROLOL] Drug Allergy 07-28-19 12 Hives, Shortness of Breath [facility] Comment on above: heart races (20 sources) Doxycycline; Translations: [DOXYCYCLINE] Drug Allergy 01-15-20 20 [facility] Work Phone: (20 sources) Tomatoes; Translations: [TOMATOES] Propensity to adverse reactions 09-19-19 10 Swelling [facility] (3 sources) Dicloxacillin Drug Allergy 09-21-19 23 [facility] (4 sources) HYDROcodone; Translations: [hydrocodone bitartrate] Drug Allergy 09-21-19 23 [facility] (4 sources) oxyCODONE; Translations: [oxycodone HCl] Drug Allergy 09-21-19 [facility] Comment on above: heart races (1 source) Dicloxacillin Drug Allergy 09-22-19 [facility] Rep[facility] Medications Current Medications Medication Drug Class(es) Dates Sig (Normalized) Sig (Original) acarbose 25 mg oral tablet (5 sources) alpha-Glucosidase Inhibitor Start: 08-09-2024 End: 11-07-2024 take 35-35.9 tablets by mouth three times daily acarbose (PRECOSE) 25 mg tablet Indications: Class 2 severe obesity with serious comorbidity and body mass index (BMI) of 35.0 to 35.9 in adult, unspecified obesity type (HCC) , Hypoglycemia after GI (gastrointestinal) surgery (HCC) Take 2 tablets by mouth three times a day. 540 tablet 08/09/2024 11/07/2024 Active amitriptyline hydrochloride 10 mg oral tablet (15 sources) Tricyclic Antidepressant Start: 11-21-2023 End: 02-19-2024 take 2 tablets by mouth once daily at bedtime amitriptyline (ELAVIL) 10 mg tablet Indications: Migraine with aura, not intractable, without status migrainosus Take 2 tablets by mouth daily at bedtime. 60 tablet 2 11/21/2023 Active Blood-Glucose Meter,Continuous (DEXCOM G7 BALANCE RECESSER) misc (7 sources) Start: 07-04-2024 End: 10-02-2024 Blood-Glucose Meter,Continuous (DEXCOM G7 BALANCE RECESSER) misc 1 Each as directed. 1 Each 2 07/04/2024 10/02/2024 Active Blood-Glucose Sensor (DEXCOM G7 SENSOR) allison (7 sources) Start: 07-04-2024 End: 10-02-2024 Blood-Glucose Sensor (DEXCOM G7 SENSOR) allison 1 Each every 10 days. 3 Each 3 07/04/2024 10/02/2024 Active calcium carbonate 1500 mg oral tablet (20 sources) Start: 05-13-2023 take 1 tablet by mouth twice daily Calcium Carbonate (Calcium 600) 600 mg calcium (1,500 mg) tablet Active 600 mg PO TWICE A DAY May 13, 2023 1:00am Start: 05-11-2023 calcium carbon ate (CALCIUM 600 ORAL) Take 3 tablets by mouth once daily. (1800 daily) 05/11/2023 Active Start: 05-11-2023 calcium carbon ate (CALCIUM 600 ORAL) Take 3 tablets by mouth once daily. (1800 daily) 0 05/11/2023 Active Start: 05-11-2023 take 1 tablet by jo once daily calcium carbonate (CALCIUM 600 ORAL) Take 1 tablet by mouth once daily. 0 05/11/2023 Active Start: 05-11-2023 calcium carbon ate (CALCIUM 600 ORAL) Comment on above: Take 1 tablet by jo once daily. cholecalciferol 0.05 mg oral capsule (20 sources) Vitamin D Start: 05-11-2023 take 1 capsule by mouth once daily Cholecalciferol, Vitamin D3, (VITAMIN D-3) 50 mcg (2,000 unit) cap Take 1 capsule by mouth once daily. 05/11/2023 Active Start: 05-11-2023 take 1 capsule by [facility] once daily Cholecalciferol (Vitamin D3) 50 mcg (2,000 unit) capsule Active 50 ug PO DAILY May 13, 2023 1:00am Comment on above: Take 1 capsule by [facility] once daily. Creatinine, Bulk, 100 % powd (19 sources) Creatinine, Bulk , 100 % powd 1,500 mg once daily. Active Creatinine, Bulk , 100 % powd 1,500 mg once daily. 0 Active ferrous sulfate 325 mg oral tablet (20 sources) Start: 05-11-2023 take 1 tablet by mouth once daily ferrous sulfate (IRON) 325 mg (65 mg iron) tablet Take 325 mg by mouth once daily. 05/11/2023 Active Start: 11-14-2021 End: 09-23-2022 take 1 tablet by mouth once daily at breakfast ferrous sulfate 325 mg (65 mg iron) tablet Indications: Iron deficiency anemia, unspecified iron deficiency anemia type , Folic acid deficiency , S/P bariatric surgery Take 1 tablet by mouth daily with breakfast. 90 tablet 3 11/14/2021 09/23/2022 Discontinued (Discontinued by Patient) Start: 11-06-2020 End: 03-09-2021 take 1 tablet by mouth twice daily Ferrous Sulfate 325 mg (65 mg iron) tablet Discontinued 325 mg PO TWICE A DAY November 06, 2020 12:00am March 09, 2021 10:30am Start: 01-17-2020 End: 11-10-2021 take 1 tablet by mouth twice daily at mealtime ferrous sulfate 325 mg (65 mg iron) tablet Indications: Iron deficiency anemia, unspecified iron deficiency anemia type Take 1 tablet by mouth twice daily with meals. 30 tablet 2 01/17/2020 11/10/2021 Discontinued (Discontinued by Patient) Comment on above: Take 1 tablet by jo th twice daily with meals. Take 1 tablet by jo th daily with breakfast. Take 325 mg by mouth once daily. glucagon 3 mg nasal powder (9 sources) Antihypoglycemic Agent Start: 07-04-2024 End: 10-02-2024 glucagon 3 mg/actuation nasal spray (BAQSIMI) Use 1 [place] in the nose as needed for low blood sugar. May repeat after 15 minutes using a new device if there is no response. 1 Each 2 07/04/2024 Active Glucagon (Baqsimi) 3 mg/actuation spray,non-aerosol (1 source) Start: 09-21-2024 Glucagon (Baqsimi) 3 mg/actuation spray,non-aerosol Active mg INTRANASAL September 21, 2024 12:00am ketoconazole 20 mg/ml medicated shampoo (11 sources) Azole Antifungal Start: 11-21-2023 End: 01-20-2024 ketoconazole (NIZORAL) 2 % shampoo Indications: Tinea cruris Apply to affected area two times a week. 240 mL 1 11/21/2023 01/20/2024 Active Start: 05-11-2022 End: 07-19-2022 Ketoconazole 2 % cream Disco ntinued 1 NMA TOPICAL DAILY May 11, 2022 1:00am July 19, 2022 6:34am Start: 05-11-2022 End: 07-19-2022 Ketoconazole Discontinued 1 APPLIC TOPICAL DAILY May 11, 2022 12:00am July 19, 2022 5:34am Start: 11-10-2021 End: 12-10-2021 ketoconazole (NIZORAL) 2 % c ream Indications: Cystic acne Apply to affected area once daily. 30 g 5 11/10/2021 12/10/2021 Active Comment on above: Apply to affected ar ea once daily. magnesium oxide 500 mg oral capsule (19 sources) take 1 capsule by mouth once daily Magnesium Oxide 500 mg cap Take 1 capsule by mouth once daily. Active mecobalamin (18 sources) Start: 05-13-2023 Mecobalamin (Vitamin B12) 2,500 mcg tablet,chewable Active ug PO May 13, 2023 1:00am Start: 05-13-2023 Mecobalamin (V itamin B12) Active MCG PO May 13, 2023 12:00am End: 09-23-2022 mecobalamin (B12 ACTIVE ORAL ) Take by mouth. 09/23/2022 Discontinued mecobalamin (B12 ACTIVE ORAL) Take by mouth. 0 Active Comment on above: Take by mouth. oseltamivir 75 mg oral capsule (2 sources) Neuraminidase Inhibitor Start: End: take 1 capsule by mouth twice daily oseltamivir (TAMIFLU) 75 mg capsule Indications: Influenza A Take 1 capsule by mouth twice daily for 5 days. 10 capsule 0 04/22/2022 04/27/2022 Active Comment on above: Take 1 capsule by [facility] twice daily for 5 days. phentermine hydrochloride 37.5 mg oral capsule (12 sources) Sympathomimetic Amine Anorectic Start: take 1 capsule by mouth once daily 30 minutes after breakfast Phentermine 37.5 mg capsule Active 37.5 mg PO daily March 08, 2024 12:00am must administer 30 minutes before or 1-2 hours after breakfast Start: 02-20-2024 End: 05-20-2024 take 1 tablet by mouth once daily Phentermine HCl 37.5 mg tablet Indications: Class 1 obesity Take 1 tablet by mouth once daily for 90 days. 30 tablet 2 02/20/2024 05/20/2024 Active Start: 10-20-2023 End: 01-18-2024 take 1 tablet by mouth once daily Phentermine HCl 37.5 mg tablet Indications: Class 1 obesity Take 1 tablet by mouth once daily for 90 days. 30 tablet 2 10/20/2023 01/18/2024 Active Start: 07-14-2023 End: 10-12-2023 take 1 tablet by mouth once daily Phentermine HCl 37.5 mg tablet Indications: S/P gastric bypass Take 1 tablet by mouth once daily for 90 days. 30 tablet 2 07/14/2023 10/12/2023 Active Comment on above: Take 1 tablet by jo th once daily for 90 days. rizatriptan 10 mg oral tablet (5 sources) Serotonin-1b and Serotonin-1d Receptor Agonist Start: End: take 1 tablet by mouth twice daily as needed for headache rizatriptan (MAXALT) 10 mg tablet Indications: Migraine with aura, not intractable, without status migrainosus Take 1 tablet (10 mg) by mouth as needed for migraine headache (see administration instructions). Take at onset of headache; may repeat after 2hrs. Do not exceed 30mg/day (3 doses). 9 tablet 2 11/21/2023 02/19/2024 Active sulfamethoxazole 800 mg / trimethoprim 160 mg oral tablet (7 sources) Dihydrofolate Reductase Inhibitor Antibacterial, Sulfonamide Antimicrobial Start: End: take 1 tablet by mouth twice daily sulfamethoxazole-tri methoprim (BACTRIM DS) 800-160 mg per tablet Indications: Cystic acne , Cellulitis of skin Take 1 tablet by mouth twice daily for 10 days. 60 tablet 2 02/11/2022 02/21/2022 Active Start: 02-24-2021 End: 03-09-2021 Sulfamethoxazole-Trimethopri m (Bactrim Ds) 800-160 mg tablet Discontinued 1 {tbl} PO TWICE A DAY February 24, 2021 12:00am March 09, 2021 10:30am Start: 01-01-2016 End: 12-09-2017 Sulfamethoxazole-Trimethopri m 1 TABLET tablet Discontinued 1 {tbl} PO TWICE A DAY January 01, 2016 12:00am December 09, 2017 11:25am Start: 01-01-2016 End: 12-09-2017 take 1 tablet by mouth twice daily Sulfamethoxazole-Trimethoprim Discontinu ed 1 TABLET PO TWICE A DAY December 31, 2015 11:00pm December 09, 2017 10:25am Comment on above: Take 1 tablet by jo twice daily for 10 days. terbinafine hydrochloride 10 mg/ml topical cream (2 sources) Allylamine Antifungal Start: End: terbinafine HCl (LAMISIL) 1 % cream Indications: Tinea cruris Apply to affected area two times a day. 28.4 g 1 11/21/2023 12/21/2023 Active vitamin a [id number] unt oral capsule (20 sources) Vitamin A Start: take 1 capsule by mouth once daily vitamin A (AQUASOL A) 10,000 unit capsule Take 10,000 Units by mouth once daily. 05/11/2023 Active Start: 05-11-2023 vitamin A (AQU ASOL A) 10,000 unit capsule Comment on above: Take 10,000 Units by mouth once daily. vitamin b12 2.5 mg sublingual tablet (20 sources) Vitamin B12 Start: 05-11-2023 take 1 tablet by mouth once daily Cyanocobalamin 2,500 mcg subl Take 1 tablet by mouth once daily. 05/11/2023 Active Comment on above: Take 1 tablet by [facility] once daily. Completed/Discontinued Medications Medication Drug Class(es) Dates Sig (Normalized) Sig (Original) acetaminophen 500 mg oral tablet (8 sources) Start: 07-09-2021 End: 02-11-2022 take 2 tablets by mouth every six hours as needed acetaminophen (TYLENOL EXTRA STRENGTH) 500 mg tablet Take 2 tablets by mouth every 6 hours as needed for pain. 0 07/09/2021 02/11/2022 Discontinued (Discontinued by Patient) Comment on above: Take 2 tablets by mo [facility] every 6 hours as needed for pain. acetaminophen 300 mg / codeine phosphate 30 mg oral tablet (3 sources) Opioid Agonist Start: 02-25-2021 End: 03-09-2021 Acetaminophen-Codei ne 300-30 mg tablet Discontinued 1 {tbl} PO DAILY February 25, 2021 12:00am March 09, 2021 10:31am Start: 02-25-2021 End: 03-09-2021 take 1 tablet by mouth once daily Acetaminophen-Codeine Discontinued 1 TABLET PO DAILY February 24, 2021 11:00pm March 09, 2021 9:31am amoxicillin 500 mg oral capsule (7 sources) Penicillin-class Antibacterial Start: 12-29-2016 End: 01-05-2017 take 1 tablet by mouth three times daily AMOXICILLIN 500 MG CAPS One tablet by mouth three times daily AMOXICILLIN [id number] Laura Martino RADIO MECHANIC HELPER amoxicillin 875 mg / clavulanate 125 mg oral tablet (6 sources) Penicillin-class Antibacterial Start: 03-06-2024 End: 05-21-2024 Amoxicillin-Pot Clavulanate 875-125 mg tablet Discontinued 1 {tbl} PO TWICE A DAY March 08, 2024 12:00am May 21, 2024 10:35am Start: 04-19-2022 End: 04-29-2022 Amoxicillin-Pot Clavulanate 875-125 mg tablet Discontinued 1 {tbl} PO Q12H 20 April 19, 2022 1:00am April 28, 2022 1:00am April 29, 2022 1:04am Start: 04-19-2022 End: 04-29-2022 take 1 tablet by mouth every twelve hours Amoxicillin-Pot Clavulanate Discontinued 1 TABLET PO Q12H 20 April 19, 2022 12:00am April 29, 2022 12:04am Start: 03-10-2022 End: 03-15-2022 take 1 tablet by mouth twice daily amoxicillin-clavulanic acid (AUGMENTIN) 875-125 mg per tablet Indications: Acute non-recurrent sinusitis, unspecified location Take 1 tablet by mouth twice daily for 5 days. 10 tablet 0 03/10/2022 03/15/2022 Active Comment on above: Take 1 tablet by jo th twice daily for 5 days. ampicillin 500 mg oral capsule (3 sources) Penicillin-class Antibacterial Start: 12-13-19 End: 12-18-19 take 1 capsule by mouth every eight hours Ampicillin 500 mg capsule Discontinued 500 mg PO Q8H 15 5 December 12, 2018 12:00am December 16, 2018 12:00am December 17, 2018 12:08am ASHWAGANDHA ROOT EXTRACT ORAL (4 sources) End: 09-24-19 ASHWAGANDHA ROOT EXTRACT ORAL Take 600 mg by mouth. 09/23/2022 Discontinued (Discontinued by Patient) ASHWAGANDHA ROOT EXTRACT ORAL Take 600 mg by mouth. 0 Active Comment on above: Take 600 mg by mouth . azithromycin 250 mg oral tablet (4 sources) Macrolide Antimicrobial Start: 04-16-2024 End: 05-21-2024 Azithromycin 250 mg tablet Discontinued 250 mg PO .COMPLEX April 16, 2024 1:00am May 21, 2024 10:35am 2 tablets (500 mg) on day 1, then 1 tablet daily on days 2 through 11 Start: 02-21-2024 End: 03-08-2024 Azithromycin 250 mg tablet Discontinued 0 PO .COMPLEX 6 February 21, 2024 12:00am March 08, 2024 3:16pm For 250 mg dose pack: take 500 mg today (day 1), then 250 mg for 4 days (days 2-5) PO Start: 02-11-2023 End: 03-09-2023 take 2-5 tablets by mouth once daily Azithromycin 250 mg tablet Discontinued 0 PO .COMPLEX 6 February 11, 2023 12:00am March 09, 2023 12:58pm take 500 mg today (day 1), then 250 mg for 4 days (days 2-5) PO Biotin (13 sources) End: 09-23-2022 BIOTIN ORAL Take by mouth. 0 09/23/2022 Discontinued (Discontinued by Patient) BIOTIN ORAL Take by mouth. 0 Active Comment on above: Take by mouth. Control (3 sources) Start: 01-01-2016 End: 12-09-2017 Control Discontinued 1 {tbl} PO DAILY January 01, 2016 12:00am December 09, 2017 11:24am Start: 01-01-2016 End: 12-09-2017 take 1 tablet by mouth once daily Control Discontinued 1 TABLET PO DAILY December 31, 2015 11:00pm December 09, 2017 10:24am Start: 01-01-2016 End: 12-09-2017 take 1 tablet by mouth once daily Control Discontinued 1 TABLET PO DAILY January 01, 2016 12:00am December 09, 2017 11:24am calcium ascorbate 500 mg oral tablet (3 sources) Start: 11-06-2020 End: 03-09-2021 take 1 tablet by mouth twice daily Ascorbate Calcium (Vitamin C) 500 mg tablet Discontinued 500 mg PO TWICE A DAY November 06, 2020 12:00am March 09, 2021 10:31am cannabidiol 100 mg/ml oral solution (3 sources) Start: 05-18-2019 End: 06-01-2019 take 2 drop(s) by mouth once in the morning Cannabidiol 100 mg/mL solution Discontinued 2.5 mg/kg PO ONCE May 18, 2019 1:00am June 01, 2019 6:46pm taking 2 drops in the AM. Start: 05-18-2019 End: 06-01-2019 take 2 drop(s) by mouth once in the morning Cannabidiol Discontinued 2.5 mg/kg PO ONCE May 18, 2019 12:00am June 01, 2019 5:46pm taking 2 drops in the AM. cephalexin 500 mg oral capsule (6 sources) Cephalosporin Antibacterial Start: 10-08-2019 End: 10-18-2019 take 1 capsule by mouth every six hours Cephalexin (Keflex) 500 mg capsule Discontinued 500 mg PO EVERY 6 HOURS 40 October 08, 2019 12:00am October 17, 2019 12:00am October 18, 2019 12:02am Start: 04-10-2019 End: 04-17-2019 take 1 capsule by mouth every six hours Cephalexin (Keflex) 500 mg capsule Discontinued 500 mg PO EVERY 6 HOURS 28 April 10, 2019 1:00am April 16, 2019 1:00am April 17, 2019 1:08am citalopram 20 mg oral tablet (3 sources) Serotonin Reuptake Inhibitor Start: 02-07-2019 End: 02-13-2019 take 1 tablet by mouth once daily Citalopram 20 mg tablet Discontinued 20 mg PO DAILY February 07, 2019 12:00am February 13, 2019 9:28am clindamycin 10 mg/ml topical solution (15 sources) Lincosamide Antibacterial Start: 05-11-2022 End: 07-19-2022 Clindamycin Phosphate 1 % solution Discontinued 1 NMA TOPICAL DAILY May 11, 2022 1:00am July 19, 2022 6:34am Start: 11-10-2021 End: 05-09-2022 clindamycin (CLEOCIN-T) 1 % gel Indications: Cystic acne Apply to affected area twice daily. 60 g 5 11/10/2021 05/09/2022 Active Start: 09-25-2019 End: 10-05-2019 take 2 capsules by mouth three times daily Clindamycin Hcl 150 MG capsule Discontinued 300 mg PO THREE TIMES A DAY 30 September 25, 2019 12:00am October 04, 2019 12:00am October 05, 2019 12:02am Start: 09-25-2019 End: 10-05-2019 take 300 mg by mouth three times daily Clindamycin Hcl Discontinued 300 MG PO THREE TIMES A DAY 30 September 23, 2020 11:00pm October 04, 2019 11:02pm Comment on above: Apply to affected ar ea twice daily. cyclobenzaprine hydrochloride 10 mg oral tablet (3 sources) Muscle Relaxant Start: End: take 1 tablet by mouth three times daily as needed for pain Cyclobenzaprine 10 mg tablet Discontinued 10 mg PO THREE TIMES A DAY as needed for muscle spasm or pain February 24, 2021 12:00am March 09, 2021 10:30am dicloxacillin 500 mg oral capsule (3 sources) Penicillin-class Antibacterial Start: End: take 1 capsule by mouth every six hours Dicloxacillin 500 mg capsule Discontinued 500 mg PO EVERY 6 HOURS 40 November 21, 2019 12:00am November 30, 2019 12:00am December 01, 2019 12:03am fluticasone propionate 0.05 mg/actuat metered dose nasal spray (2 sources) Corticosteroid Start: End: take 2 spray(s) by mouth once daily fluticasone (FLONASE) 50 mcg/actuation nasal spray Indications: Acute otitis media, right , Bacterial sinusitis Use 2 Sprays in each nostril once daily. Rinse mouth after use. 1 Each 07/22/2022 09/23/2022 Discontinued (Discontinued by Patient) Comment on above: Use 2 Sprays in each nostril once daily. Rinse mouth after use. folic acid 1 mg oral tablet (11 sources) Start: End: take 1 tablet by mouth once daily folic acid 1 mg tablet Indications: Iron deficiency anemia, unspecified iron deficiency anemia type , Folic acid deficiency , S/P bariatric surgery Take 1 tablet by mouth once daily. 90 tablet 3 11/14/2021 09/23/2022 Discontinued (Discontinued by Patient) Comment on above: Take 1 tablet by [facility] once daily. L.Acidoph, Paracasei,B. Lactis (2 sources) Start: End: L.Acidoph, Paracasei,B. Lactis Discontinued 1 EACH PO DAILY September 17, 2019 11:00pm October 05, 2019 2:32pm Start: 09-18-2019 End: 10-05-2019 L.Acidoph, Paracasei,B. Lact is Discontinued 1 EACH PO DAILY September 18, 2019 12:00am October 05, 2019 3:32pm L.Acidoph,Paracasei,B.Animal is 1 EACH capsule (1 source) Start: 09-18-2019 End: 10-05-2019 take 1 capsule by mouth once daily L.Acidoph,Paracasei,B.Animalis 1 EACH capsule Discontinued 1 NMA PO DAILY September 18, 2019 12:00am October 05, 2019 3:32pm Lacto no.76/Bifido/FOS/larch (WOMEN'S PROBIOTIC ORAL) (4 sources) End: 09-23-2022 Lacto no.76/Bifido/FOS/larch (WOMEN'S PROBIOTIC ORAL) Take by mouth. 09/23/2022 Discontinued (Discontinued by Patient) Lacto no.76/Bifi do/FOS/larch (WOMEN'S PROBIOTIC ORAL) Take by mouth. 0 Active Comment on above: Take by mouth. levothyroxine sodium 0.1 mg oral tablet (6 sources) l-Thyroxine Start: 05-10-19 End: 03-08-20 24 take 1 tablet by mouth once daily Levothyroxine 100 mcg tablet Discontinued 100 ug PO DAILY May 10, 2023 1:00am March 08, 2024 3:17pm Comment on above: Take 1 tablet by jo th daily before breakfast. meclizine hydrochloride 12.5 mg oral tablet (5 sources) Antiemetic Start: 04-22-20 End: 09-24-19 23 take 1 tablet by mouth every six hours as needed for dizziness meclizine (ANTIVERT) 12.5 mg tab Indications: Vertigo Take 1 tablet by mouth every 6 hours as needed (dizziness). 30 tablet 1 04/22/2022 09/23/2022 Discontinued (Discontinued by Patient) Comment on above: Take 1 tablet by jo th every 6 hours as needed (dizziness). metoclopramide 10 mg oral tablet (3 sources) Dopamine-2 Receptor Antagonist Start: 12-27-19 18 End: 05-22-19 19 take 1 tablet by mouth three times daily as needed for headache Metoclopramide Hcl (Reglan) 10 mg tablet Discontinued 10 mg PO THREE TIMES A DAY as needed for headache December 26, 2017 12:00am May 22, 2018 5:03pm Multivitamin capsule (9 sources) take 1 capsule by mouth once daily Multivitamin capsule Take 1 capsule by mouth once daily. 0 Active Comment on above: Take 1 capsule by mo [facility] once daily. Multivitamin preparation (2 sources) Start: 09-21-19 End: 05-10-19 take 1 tablet by mouth once daily Multivitamin Discontinued 1 TABLET PO DAILY September 19, 2022 11:00pm May 10, 2023 1:14pm Start: 09-20-2022 take 1 tablet by [facility] once daily Multivitamin Active 1 TABLET PO DAILY September 20, 2022 12:00am Multivitamin Tablet (1 source) Start: 09-20-2022 End: 05-10-2023 Multivitamin Tablet Discontinued 1 {tbl} PO DAILY September 20, 2022 12:00am May 10, 2023 2:14pm naproxen 250 mg oral tablet (9 sources) Nonsteroidal Anti-inflammatory Drug Start: 02-24-2021 End: 03-09-2021 take 250-500 mg by mouth every eight hours as needed for pain Naproxen 250 MG tablet Discontinued 250 - 500 mg PO EVERY 8 HOURS NEEDED as needed for MILD PAIN February 24, 2021 12:00am March 09, 2021 10:30am Start: 09-25-2019 End: 10-05-2019 take 250-500 mg by mouth every eight hours as needed for pain Naproxen 250 MG tablet Discontinued 250 - 500 mg PO EVERY 8 HOURS NEEDED as needed for MILD PAIN September 25, 2019 12:00am October 05, 2019 3:32pm Start: 03-06-2017 End: 12-09-2017 take 250-500 mg by mouth every eight hours as needed for pain Naproxen 250 MG tablet Discontinued 250 - 500 mg PO EVERY 8 HOURS NEEDED as needed for MILD PAIN March 06, 2017 12:00am December 09, 2017 11:24am nitrofurantoin, macrocrystals 25 mg / nitrofurantoin, monohydrate 75 mg oral capsule (6 sources) Nitrofuran Antibacterial Start: 02-17-2018 End: 02-24-2018 take 1 capsule by mouth every twelve hours at mealtime Nitrofurantoin Monohyd/M-Cryst (Macrobid) 100 mg capsule Discontinued 1 NMA PO Q12H 14 February 17, 2018 12:00am February 23, 2018 12:00am February 24, 2018 12:11am administer with a meal/food; swallow whole; do not open, crush, dissolve , or chew Start: 01-02-2018 End: 01-09-2018 take 1 capsule by mouth twice daily at mealtime Nitrofurantoin Monohyd/M-Cryst (Macrobid) 100 mg capsule Discontinued 100 mg PO TWICE A DAY 14 January 02, 2018 12:00am January 08, 2018 12:00am January 09, 2018 12:08am must administer with a meal/food norethindrone 0.35 mg oral tablet (6 sources) Start: 08-03-2018 End: 12-12-2018 take 1 tablet by mouth once daily Norethindrone (Contraceptive) (Ольга) 0.35 mg tablet Discontinued 0.35 mg PO daily August 03, 2018 12:00am December 12, 2018 11:03am start day 1 of menstrual cycle Start: 04-18-2017 End: 12-09-2017 take 1 tablet by mouth once daily Norethindrone (Contraceptive) (Ольга) 0.35 mg tablet Discontinued 0.35 mg PO daily April 18, 2017 1:00am December 09, 2017 11:24am take at the same time every day omeprazole 40 mg delayed release oral capsule (3 sources) Proton Pump Inhibitor Start: 09-21-2022 End: 11-18-2022 take 1 capsule by mouth once daily omeprazole (PRILOSEC) 40 mg capsule Take 1 capsule by mouth once daily. 30 capsule 1 09/21/2022 11/18/2022 Discontinued Comment on above: Take 1 capsule by [facility] once daily. ondansetron 4 mg disintegrating oral tablet (13 sources) Serotonin-3 Receptor Antagonist Start: 09-21-2022 End: 11-18-2022 take 1 tablet by mouth every eight hours as needed ondansetron orally disintegrating (ZOFRAN ODT) 4 mg disintegrating tablet Take 1 tablet by mouth every 8 hours as needed for nausea/vomiting. 30 tablet 09/21/2022 11/18/2022 Discontinued Start: 06-22-2021 End: 11-10-2021 take 1 tablet by mouth every eight hours as needed ondansetron (ZOFRAN) 4 mg tablet Take 1 tablet by mouth every 8 hours as needed. 20 tablet 0 06/22/2021 11/10/2021 Discontinued (Course of therapy completed) Start: 12-28-2017 End: 05-22-2018 take 1 tablet by mouth every four hours as needed for nausea Ondansetron 4 MG tablet,disintegrating Discontinued 4 mg PO EVERY 4 HOURS NEEDED as needed for Nausea December 28, 2017 8:43am May 22, 2018 5:03pm Start: 01-02-2016 End: 12-09-2017 take 1 tablet by mouth every eight hours as needed for nausea Ondansetron 4 MG tablet Discontinued 4 mg PO EVERY 8 HOURS NEEDED as needed for Nausea January 02, 2016 12:00am December 09, 2017 11:24am Comment on above: Take 1 tablet by jo th every 8 hours as needed. Take 1 tablet by jo th every 8 hours as needed for nausea/vomiting. OTC PRODUCT (4 sources) End: 09-23-2022 OTC PRODUCT LUMINEX ( Malik's Wart, [place] Seed, Folate, and, Vit B12) 09/23/2022 Discontinued (Discontinued by Patient) OTC PRODUCT KAEL NEX ( Malik's Wart, [place] Seed, Folate, and, Vit B12) 0 Active Comment on above: LUMINEX ( Malik's Wart, [place] Seed, Folate, and, Vit B12) pantoprazole 40 mg delayed release oral tablet (17 sources) Proton Pump Inhibitor Start: 022 End: 023 take 1 tablet by mouth once daily pantoprazole DR (PROTONIX) 40 mg tablet Take 1 tablet by mouth once daily. 90 tablet 3 06/22/2021 11/18/2022 Discontinued Comment on above: Take 1 tablet by jo th once daily. phenazopyridine hydrochloride 200 mg oral tablet (3 sources) Start: 016 End: 018 take 1 tablet by mouth twice daily as needed for pain Phenazopyridine 200 MG tablet Discontinued 200 mg PO TWICE DAILY NEEDED as needed for Pain January 01, 2016 12:00am December 09, 2017 11:24am VIT-FE FUMARATE-FA (7 sources) Start: 017 VITAMINS 28-0.8 MG TABS VIT-FE FUMARATE-FA [id number] Julissa Connell MD promethazine hydrochloride 12.5 mg oral tablet (6 sources) Phenothiazine Start: 018 End: 019 take 1 tablet by mouth every six hours as needed for nausea and vomiting Promethazine 12.5 mg tablet Discontinued 12.5 mg PO EVERY 6 HOURS as needed for nausea and vomiting 60 December 22, 2017 12:00am May 22, 2018 5:03pm Start: 01-01-2016 End: 12-09-2017 take 1 tablet by mouth every six hours as needed for nausea Promethazine 25 MG tablet Discontinued 25 mg PO EVERY 6 HOURS NEEDED as needed for Nausea 10 January 01, 2016 12:00am December 09, 2017 11:24am raNITIdine 300 mg oral tablet (3 sources) Histamine-2 Receptor Antagonist Start: 01-01-2016 End: 12-09-2017 take 1 tablet by mouth once daily Ranitidine Hcl 300 MG tablet Discontinued 300 mg PO DAILY January 01, 2016 12:00am December 09, 2017 11:25am [place] Laten (3 sources) Start: 09-18-2019 End: 10-05-2019 [place] Laten Discontinued 3 NMA PO THREE TIMES A DAY September 18, 2019 12:00am October 05, 2019 3:32pm Start: 09-18-2019 End: 10-05-2019 take 3 capsules by mouth three times daily [place] Laten Discontinued 3 CAP PO THREE TIMES A DAY September 17, 2019 11:00pm October 05, 2019 2:32pm Start: 09-18-2019 End: 10-05-2019 take 3 capsules by mouth three times daily [place] Laten Discontinued 3 CAP PO THREE TIMES A DAY September 18, 2019 12:00am October 05, 2019 3:32pm traMADol hydrochloride 50 mg oral tablet (6 sources) Opioid Agonist Start: 09-21-2022 End: 09-23-2022 take 1 tablet by mouth twice daily as needed for pain traMADol (ULTRAM) 50 mg tablet Indications: Right flank pain , RUQ pain Take 1 tablet by mouth twice daily as needed for pain. 4 tablet 09/21/2022 09/23/2022 Discontinued (Course of therapy completed) Start: 07-09-2021 End: 11-10-2021 take 1 tablet by mouth every eight hours as needed for pain traMADol (ULTRAM) 50 mg tablet Indications: S/P gastric bypass Take 1 tablet by mouth every 8 hours as needed for pain. 15 tablet 0 07/09/2021 11/10/2021 Discontinued (Course of therapy completed) Comment on above: Take 1 tablet by jo th every 8 hours as needed for pain. Take 1 tablet by jo th twice daily as needed for pain. Vitamin Z26-Nwpyq Acid (2 sources) Start: 02-17-2021 End: 03-09-2021 Vitamin P09-Hqtvt Acid Discontinued 1 TABLET SL DAILY February 16, 2021 11:00pm March 09, 2021 9:31am Start: 02-17-2021 End: 03-09-2021 Vitamin J51-Ksfyf Acid Disco ntinued 1 TABLET SL DAILY February 17, 2021 12:00am March 09, 2021 10:31am Vitamin U85-Yklhs Acid 1,000-400 mcg Tablet, Sublingual (1 source) Start: 02-17-2021 End: 03-09-2021 Vitamin T30-Qgjqe Acid 1,000 -400 mcg Tablet, Sublingual Discontinued 1 {tbl} SL DAILY February 17, 2021 12:00am March 09, 2021 10:31am Problems Active Problems Problem Classification Problem Date Documented Da te Episodic/Chronic Abdominal pain (12 sources) Right flank pain; Translations: [Unspecified abdominal pain] 09-20-2022 Episodic Comment on above: s/p ct scan. recomme nd referral back to bariatric surgeon for full evaluation Acute bronchitis (1 source) Acute bronchitis; Translations: [Acute bronchitis, unspecified] 02-21-2024 Episodic Administrative/social admission (11 sources) Patient encounter status; Translations: [Dietary counseling and surveillance] Episodic Comment on above: abnormal for SALVADOR-A and needs growth US q4wk after 24 and weekly nst after 32 Anxiety disorders (20 sources) Panic disorder; Translations: [Panic disorder [episodic paroxysmal anxiety]] Onset: 8 12-01-2017 Chronic Complications of surgical procedures or medical care (4 sources) Post gastrointestinal tract surgery hypoglycemia; Translations: [Postsurgical malabsorption, not elsewhere classified] Onset: 5 07-04-2024 Chronic Complications of surgical procedures or medical care (1 source) Postgastric surgery syndrome; 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] Episodic Conditions associated with dizziness or vertigo (1 source) Vertigo; Translations: [Dizziness and giddiness] Episodic Deficiency and other anemia (2 sources) Iron deficiency anemia; Translations: [Iron deficiency anemia, unspecified] Episodic Diabetes mellitus without complication (1 source) Prediabetes; Translations: [Prediabetes] Episodic Esophageal disorders (20 sources) Gastro-esophageal reflux disease without esophagitis; Translations: [Gastroesophageal reflux disease] Onset: 8 04-27-2021 Chronic Headache; including migraine (2 sources) Migraine with aura; Translations: [Migraine with aura, not intractable, without status migrainosus] Onset: 4 11-21-2023 Chronic Hemorrhage during ; abruptio placenta; placenta previa (5 sources) Threatened miscarriage; Translations: [Threatened ] 12-19-2017 Episodic Comment on above: resolved Immunizations and screening for infectious disease (4 sources) Contact with and (suspected) exposure to other viral communicable diseases; Translations: [Contact with or suspected exposure to other viral communicable disease] 04-19-2022 Episodic Influenza (2 sources) Influenza due to Influenza A virus; Translations: [Influenza due to other identified influenza virus with other respiratory manifestations] Episodic Malaise and fatigue (2 sources) Fatigue; Translations: [Other fatigue] Episodic Menopausal disorders (2 sources) Menopausal syndrome; Translations: [Menopausal and female climacteric states] Onset: 5 05-21-2024 Chronic Miscellaneous mental health disorders (1 source) Psychosomatic factor in physical condition; Translations: [Psychological and behavioral factors associated with disorders or diseases classified elsewhere] Chronic Nausea and vomiting (1 source) Nausea; Translations: [Nausea] Episodic Other aftercare (3 sources) Surgical follow-up; Translations: [Encounter for follow-up examination after completed treatment for conditions other than malignant neoplasm] 04-06-2021 Episodic Other circulatory disease (1 source) Respiratory symptom; Translations: [Other specified symptoms and signs involving the circulatory and respiratory systems] Episodic Other connective tissue disease (2 sources) Cramp in lower limb; Translations: [Cramp and spasm] Episodic Other gastrointestinal disorders (6 sources) Abnormal intestinal absorption; Translations: [Intestinal malabsorption, unspecified] Chronic Other gastrointestinal disorders (14 sources) History of bypass of stomach; Translations: [Bariatric surgery status] Episodic Other gastrointestinal disorders (6 sources) History of bariatric surgical procedure; Translations: [Bariatric surgery status] Episodic Other gastrointestinal disorders (2 sources) Acute constipation; Translations: [Constipation, unspecified] Episodic Other injuries and conditions due to external causes (3 sources) History of fall; Translations: [History of falling] 08-01-2018 Episodic Other nervous system disorders (1 source) Chronic pain; Translations: [Other chronic pain] 11-21-2023 Chronic Other nervous system disorders (1 source) Other chronic pain; Translations: [Other chronic pain] Onset: 4 Chronic Other nutritional; endocrine; and metabolic disorders (2 sources) Morbid (severe) obesity due to excess calories; Translations: [Morbid (severe) obesity due to excess calories] Onset: 8 Chronic Other nutritional; endocrine; and metabolic disorders (20 sources) Body mass index 40+ - severely obese; Translations: [Body mass index (BMI) 50.0-59.9, adult] Onset: 2 Chronic Comment on above: 1 tm [facility] nsts after 32 weeks Other nutritional; endocrine; and metabolic disorders (20 sources) Severe obesity; Translations: [Morbid (severe) obesity due to excess calories] Onset: 0 09-08-2020 Chronic Other nutritional; endocrine; and metabolic disorders (20 sources) Morbid obesity; Translations: [Morbid (severe) obesity due to excess calories] Onset: 1 09-15-2020 Chronic Other nutritional; endocrine; and metabolic disorders (1 source) Obese class III; Translations: [Morbid (severe) obesity due to excess calories] 07-07-2023 Chronic Other nutritional; endocrine; and metabolic disorders (6 sources) Obese class I; Translations: [Obesity, unspecified] 10-07-2023 Chronic Other nutritional; endocrine; and metabolic disorders (1 source) Obese class II; Translations: [Class 2 obesity] 07-13-2024 Chronic Other skin disorders (3 sources) Loss of hair; Translations: [Nonscarring hair loss, unspecified] Episodic Other skin disorders (3 sources) Cystic acne; Translations: [Acne vulgaris] Episodic Other upper respiratory infections (1 source) Bacterial sinusitis; Translations: [Chronic sinusitis, unspecified] 03-06-2024 Chronic Other upper respiratory infections (13 sources) Acute sinusitis; Translations: [Acute sinusitis, unspecified] Episodic Otitis media and related conditions (5 sources) Acute right otitis media; Translations: [Otitis media, unspecified, right ear] 04-19-2022 Episodic Polyhydramnios and other problems of amniotic cavity (1 source) Subchorionic hematoma; Translations: [Other specified disorders of amniotic fluid and membranes, first trimester, not applicable or unspecified] 06-19-2019 Episodic Residual codes; unclassified (1 source) Reduced libido; Translations: [Decreased libido] Episodic Skin and subcutaneous tissue infections (1 source) Cellulitis of skin; Translations: [Cellulitis, unspecified] Episodic Thyroid disorders (20 sources) Goiter; Translations: [Iodine-deficiency related diffuse (endemic) goiter] Onset: 4 11-18-2022 Chronic Comment on above: labs ordered and gen surg referral due to symptoms This is a 32-year-ol d female, euthyroid from an endocrine standpoint, who presents for evaluation of incidentally noted right thyroid nodules. This includes findings of a 0.9 cm TI-RADS 5 nodule and a more inferior 1.3 cm TI-RADS 4 nodule. I discussed with patient the fact that thyroid nodularity is a common finding with ultrasonography and went into greater detail on their classification using the TI-RADS system. I shared with her that her nodules do not meet technical ACR criteria for biopsy, but offered to proceed, if she felt strongly that this would help her anxiety. She shared that she feared this would actually make her anxiety worse and was happy to proceed with surveillance as recommended. Therefore, I have extended the radiology recommendation to proceed with surveillance ultrasound in 1 year. However, given the finding of a possible parathyroid gland I did request a calcium and PTH be obtained on her way out. Orders were placed. Unclassified (2 sources) Body mass index (BMI) 45.0-49.9, adult; Translations: [Body mass index (BMI) 45.0-49.9, adult] Onset: 8 Chronic Unclassified (14 sources) 34 weeks gestation of ; Translations: [37 weeks gestation of ] Onset: 7 01-27-2017 Unclassified (7 sources) Loop electrosurgical excision procedure; Translations: [Other specified postprocedural states] Onset: 7 12-28-2016 Unclassified (1 source) NO SHOW Unclassified (1 source) Reassessment Onset: 5 Urinary tract infections (3 sources) Pyelonephritis; Translations: [Tubulo-interstitial nephritis, not specified as acute or chronic] 01-02-2016 Episodic Past or Other Problems Problem Classification Problem Date Documented Da te Episodic/Chronic Biliary tract disease (20 sources) Cholelithiasis without obstruction; Translations: [Calculus of gallbladder without cholecystitis without obstruction] Onset: 12-26-2019 12-26-2019 Episodic Cancer of cervix (20 sources) Cervicovaginal cytology: High grade squamous intraepithelial lesion or carcinoma; Translations: [High grade squamous intraepithelial lesion on cytologic smear of cervix (HGSIL)] Onset: 01-01-2016 Resolved: 09-08-2020 09-08-2020 Episodic Early or threatened labor (7 sources) False labor; Translations: [False labor, unspecified] Onset: 03-02-2017 03-02-2017 Episodic Esophageal disorders (20 sources) Esophagitis; Translations: [Esophagitis, unspecified] Onset: 03-10-2012 Resolved: 10-22-2015 10-22-2015 Episodic Fracture of lower limb (20 sources) Metatarsal bone fracture; Translations: [Displaced fracture of fifth metatarsal bone, unspecified foot, initial encounter for closed fracture] Onset: 07-21-2012 Resolved: 10-22-2015 10-22-2015 Episodic Malposition; malpresentation (14 sources) Maternal care for other malpresentation of fetus, not applicable or unspecified; Translations: [Maternal care for other malpresentation of fetus, not applicable or unspecified] Onset: 01-12-2017 Resolved: 02-15-2017 02-15-2017 Episodic Mycoses (2 sources) Tinea cruris; Translations: [Tinea cruris] Onset: 11-21-2023 11-21-2023 Episodic Nonmalignant breast conditions (2 sources) Breast lump; Translations: [Unspecified lump in the right breast, unspecified quadrant] Onset: 04-08-2024 05-21-2024 Episodic Comment on above: imaging ordered Normal and/or delivery (20 sources) Gestation period, [...] Onset: 12-29-2016 03-02-2017 Episodic Other complications of (20 sources) Spotting per vagina in ; Translations: [Spotting complicating , unspecified trimester] Onset: 07-15-2016 07-15-2016 Episodic Other complications of (20 sources) Previous operation to cervix affecting ; Translations: [Maternal care for other abnormalities of cervix, unspecified trimester] Onset: 07-15-2016 07-15-2016 Episodic Other female genital disorders (20 sources) History of premature labor; Translations: [Personal history of pre-term labor] Onset: 07-15-2016 07-15-2016 Episodic Other gastrointestinal disorders (4 sources) Bariatric surgery status; Translations: [Bariatric surgery status] Onset: 01-20-2024 05-10-2023 Episodic Other lower respiratory disease (20 sources) Solitary nodule of lung; Translations: [Solitary pulmonary nodule] Onset: 12-26-2019 12-26-2019 Episodic Other nervous system disorders (20 sources) Difficulty walking; Translations: [Difficulty in walking, not elsewhere classified] Onset: 12-14-2012 Resolved: 10-22-2015 10-22-2015 Chronic Other non-traumatic joint disorders (7 sources) Arthralgia of the pelvic region and thigh; Translations: [Pain in unspecified joint] Onset: 12-15-2016 12-15-2016 Episodic Other nutritional; endocrine; and metabolic disorders (20 sources) Obesity; Translations: [Obesity, unspecified] Onset: 08-21-2009 Resolved: 10-22-2015 10-22-2015 Chronic Other nutritional; endocrine; and metabolic disorders (6 sources) Weight gain; Translations: [Abnormal weight gain] Onset: 08-21-2009 Resolved: 10-22-2015 10-22-2015 Episodic Other nutritional; endocrine; and metabolic disorders (16 sources) Weight increased; Translations: [Abnormal weight gain] Onset: 08-21-2009 Resolved: 10-22-2015 10-22-2015 Episodic Residual codes; unclassified (20 sources) H/O: depression; Translations: [Personal history of other complications of , childbirth and the puerperium] Onset: 07-15-2016 07-15-2016 Episodic Residual codes; unclassified (20 sources) Family history of cystic fibrosis; Translations: [Family history of other endocrine, nutritional and metabolic diseases] Onset: 07-15-2016 07-15-2016 Episodic Unclassified (7 sources) Gestation period, 30 weeks; Translations: [30 weeks gestation of ] Onset: 12-15-2016 12-28-2016 Episodic Unclassified (2 sources) Body mass index 40+ - severely obese; Translations: [Body mass index (BMI) greater than 40] 08-01-2018 Results Test Name Value Interpretation Reference Range Facility Urgent Care Visit Reporton 0 09-21-2024 Urgent Care Visit Report [facility] [address], [address] [place], [place] [id number] OFFICE VISIT Date of Service: 09/21/24 MR#: [id number] Acct: [id number] Name: INDRAMARYMEDINA SILVA Rep #: [id number] : 1990 Provider: STEVAN Siu Age/Sex: 34/F Location: [facility] [place] Status: Signed Intake Vital Signs 05/21/24 09:32 09/21/24 06:11 Height 5 ft 7 in Weight: 219 lb 2 oz BMI 34.3 BP 124/85 H 110/60 Position Sitting Pulse 87 Temp 98.3 F Temp Source Oral Pulse Oximetry (%) 98 Oxygen Delivery Method room air Intake Visit Reasons: RASH ON L SIDE Accompanied by: Self Allergies metoprolol Allergy (Severe, Verified 09/21/24 06:16) Hives oxycodone HCl (From Percocet) Allergy (Severe, Verified 09/21/24 06:16) Hives hydrocodone bitartrate (From Vicodin) Allergy (Intermediate, Verified 09/21/24 06:16) Hives latex Allergy (Mild, Verified 09/21/24 06:16) Rash dicloxacillin Allergy (Verified 09/21/24 06:16) Hives Medications ???Medication ???Instructions ???Recorded ???Confirmed ???Type calcium carbonate (Calcium 600) 600 mg PO BID 05/13/23 05/21/24 Hi story cholecalciferol (vitamin D3) 50 50 mcg PO DAILY 05/13/23 05/21/24 History mcg (2,000 unit) capsule ferrous sulfate 325 mg (65 mg 325 mg PO DAILY 05/13/23 05/21/24 History iron) tablet (Feosol) mecobalamin (vitamin B12) 2,500 mcg PO 05/13/23 05/21/24 History mcg chewable tablet phentermine 37.5 mg capsule 37.5 mg PO QDAY 03/08/24 05/21/24 History glucagon 3 mg/actuation nasal mg intranasal 09/21/24 09/21/24 Hi story spray (Baqsimi) valacyclovir 1 gram tablet 1,000 mg PO Q8H 10 days #30 tabs 0 09/21/24 09/21/24 Rx Nurse's Note: Patient has a rash on her left side that appeared yesterday. Patient states her back and shoulders she felt like she has pens and needles. Patient states the rash itches. Patient thinks she could be going through a thyroiditis. [facility] Medical History Acute bronchitis, unspecified Collin's thyroiditis Wears glasses Depression Anxiety Low iron Easy bruising Migraine headache Heartburn Former smoker Leg cramps History of irregular heartbeat Abnormal uterine bleeding (AUB) Shoulder pain SOB (shortness of breath) History of pre-eclampsia Surgical History Status post bariatric surgery S/P hernia surgery H/O gastric bypass Hx of cholecystectomy History of total vaginal hysterectomy (TVH) S/P vaginal hysterectomy ( 02/24/21) Status post bilateral salpingectomy ( 09/25/19) History of foot surgery History of tonsillectomy Hx LEEP (loop electrosurgical excision procedure), cervix, Family History Grandmother Cancer Anxiety Osteoporosis Thyroid disorder Father Bleeding disorder Liver disease Mother Anesthesia complication Diabetes Hypertension Social History Smoking Status: Former smoker second hand exposure: No alcohol intake: never substance use type: does not use caffeine: No what type of physical activity do you participate in: none and other details: 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 seatbelt use: always do you feel safe at home: Yes additional social history: Kash MOONEY HPI Details: MARY BURRELL, is a 34 F who presents to the office today for complaint of rash on the left flank. Patient noticed it starting yesterday. She does state that she has been under quite bit of stress as well as her blood sugar being all over the place. Patient does state that she had some nervelike pain prior to the rash and now has burning and itching. No other associated symptoms or alleviating/aggravati ng factors. ROS Const Constitutional: No other (as above) Exam Const General: cooperative and healthy appearing Resp Effort Inspection: normal respiratory effort Cardio Rate: regular rate Skin Other: Grouped vesicular rash left flank midaxillary line. Neuro General: patient alert and CN's II-XI intact bilaterally Psych Appearance: grossly normal Mental Status: mental status grossly normal Coding Level of Care Code Off vis,est,level 3 Diagnoses Herpes zoster B02.9 Assessment and Plan Assessment and Plan (1) Herpes zoster: Status: Acute Medications: New valacyclovir 1,000 mg PO Q8H 30 tabs 0RF 10 days Plan Valacyclovir as prescribed today. Encouraged to get plenty of rest, drink lots of clear liquids, and use Tylenol or Ibuprofen (unless contraindicated) for comfort. Patient also educated on other symptomatic management techniques. To be seen in 7-10 days if no improvement; sooner if worsening of symptoms. Patient advised of p (more content not included)... Normal [facility] CNOVon 08-09-2024 CNOV Office Visit (ENDCMN ) MARY BURRELL ([id number]) 1990 F Date Time Provider Department 08/09/24 10:00 AM [facility] During your visit today, we recorded the following information about you: Pulse Blood pressure Weight 79/minute 127/79 101.6 kg Manuela Isbell MD 08/09/2024 10:44 AM Addendum Thank you for choosing the [facility] Department of Endocrinology, Diabetes and Metabolism. Did you know that you need to call 48 hours in advance of your scheduled visit, if you are unable to make your appointment? The Endocrinology and Metabolism [place] thanks you for your commitment, because patients not showing to their appointment results in a lost opportunity for patients to receive [facility] care at the [facility]. To Cancel an appointment, please choose one of the following: - Call the Appointment Call Center at [phone] - From [employer], Go to Appointments - Cancel Appts If cancelling, consider your need to reschedule to prevent further delays in your care. To Schedule an appointment, please choose one of the following: - Call the Appointment Call Center at [phone] - From [employer], Go to Appointments - Request an Appt It was nice seeing you today, Mary! Start Acarbose 25 mg tablet with each meal and snack. Can go up to two tablets with meals. If hypoglycemia does occur while taking acarbose, you must use one of the following: dextrose (4 tabs); honey (1 Tbsp); or milk (1 cup). Sugars that are typically used to treat hypoglycemia (e.g. table sugar, juice, regular soft drink, sugar candy) will not be effective because of the way acarbose works. Consider 24 hour fast if continues to experience low blood sugar on acarbose Emergency treatment for severe low blood sugar if not able to eat/drink: Glucagon nasal powder is a treatment for people who have severely low blood sugar. To use it, you insert the device deep into one nostril and then press the plunger to release the medication. The most common side effect is a bloody nose and body pain. 10-Point Nutrition Plan for Preventing Hypoglycemia in Post-Bariatric Hypoglycemia. Control portions of carbohydrate - 30 grams/meal, 15 grams/snack. Choose low-glycemic carbohydrates. Avoid high-glycemic carbohydrates. Include (heart-healthy) fats in each meal or snack - 15 grams/meal, 5 grams/snack. Emphasize optimal protein intake. Space meals/snacks 3-4 hours apart. Avoid consuming liquids with meals. Avoid alcohol. Avoid caffeine. Low Glycemic Index Carbohydrates (CHOOSE) Steel-cut oats (regular, not quick-cook or instant) Oat bran cereal Beans/legumes (e.g., garbanzo, navy, kidney, berry, gill, black-eyed and pea beans, edamame (soybeans), lentils Maya products (e.g., hummus, tofu) Pearled barley, cooked al dente Yams Some fruits (e.g., grapefruit, apples, pears, berries, apricots, peaches) Some pasta (e.g., Barilla Plus pasta), cooked al dente Some whole grain breads (e.g., Jae bread, Rodger?s Flax, Oat Bran AND Whole Wheat Amna/Lavash/Tortillas ) Some whole grain crackers (e.g., RyKrisp, RyVita, Wasa) High Glycemic Index Carbohydrates (AVOID) Refined breakfast cereals (e.g., Tustin Flakes, Rice Krispies, Cream of Rice, instant oatmeal) Regular pasta Most starchy vegetables (e.g., white potatoes, corn, winter (orange) squash) White rice, rice cakes Popcorn, pretzels, chips Some fruits (e.g., ripe bananas, pineapple, yael, watermelon, grapes) All fruit juices and sweetened drinks (e.g., sodas, sweetened iced tea) Bread, rolls, bagels, Nigerian muffins, and crackers made with refined flour Sweets (e.g., candy, cake, cookies, ice cream, syrup) Heart-Healthy Fats Nuts, nut butters Avocado, guacamole Olives Most plant oils (e.g., olive, canola, peanut, soy, sunflower, sesame) Most seeds (e.g., sunflower, flax, sesame/sesame tahini) Oily fish (e.g., salmon, bluefish, mackerel, tuna, sardines) Manuela Isbell MD 08/22/2024 11:07 AM Addendum [facility] RETURN VISIT HISTORY OF PRESENT ILLNESS: Mary is a pleasant 34 year old female with a PMH of lung nodule, GERD, depression. Patient comes today for follow up of post bariatric surgery hypoglycemia. Index Surgery Date of Surgery: 07/07/2021 Surgeon: Phyllis Suresh MD Surgical Procedure: LAPAROSCOPIC GASTRIC RESTRICTIVE SURG W/ BYPASS AND FRANCISCA-EN-Y 150CM OR LESS Pre-surgical weight: 156.5 kg (345 lb) 413 lbs Lowest weight 192 lbs [place] weight: 72.4 kg (159 lb 11 oz) Excess weight: 84.1 kg (185 lb 5 oz) % of excess body weight lost: 156.5 kg (345 lb) (186.17% of excess weight loss) Interval history: Fasting labs (after 15 hrs of fasting) with no hypoglycemia. Started on Dexcom at last visit. Continues to have daily low blood sugar. Review (more content not included)... Normal [facility] HEMOGLOBIN A1C (POC)on 08-09 HbA1c (Bld) [Mass fraction] 5.1 % 4.3 - 5.6 % [facility] Comment on above: Location:Arabella martinez, [address] [place] [address], [employer] Point of care (POC) Hemoglobin A1c (HGBA1C) testing is intended to assess glucose control and provide a management tool for patients known to have diabetes and their healthcare providers. Target HGBA1C levels may depend on specific clinical circumstances. POC HGBA1C is not intended for use as a diagnostic or screening test; laboratory-based testing should be used for diagnostic purposes. The following information is supplemental and may not be applicable to specific diabetes management situations: The POC device professor of management provides a normal range of 4.2% to 6.5% for the HGBA1C POC test. However, the [place] Diabetes Association guidelines indicate that patients with HGBA1C in the range of 5.7% to 6.4% are at increased risk for development of diabetes and that intervention by lifestyle modification may be beneficial. A HGBA1C level greater than or equal to 6.5% is considered diagnostic of diabetes, pending confirmatory testing. Use of HGBA1C testing to evaluate glucose control may not be appropriate for patients with hemoglobin variants or other conditions (e.g. anemia) that alter red blood cell lifespan. [facility] B-HYDROXYBUTYRATEon 07-14-19 25 Beta hydroxybutyrate [Moles/Vol] 0.35 mmol/L High <0.28 [facility] Comment on above: Order Comment: Telly sams Type: BLOOD SPECIMENOrdering Facility: [facility] Address: [address] [place] [address] Performed By: #### B HB ####[facility] LABORATORYCLIA [id number] [place] [address] [place] C peptide SerPl-mCncon 07-13 C peptide [Mass/Vol] 2.7 ng/mL Normal 1.1-4.4 [facility] Comment on above: Order Comment: Telly sams Type: BLOOD SPECIMENOrdering Facility: [facility] Address: [address] [place] [address] Performed By: #### 1 986-9, 29911-2 ####[facility] LABCLIA [id number] [place] [address] [place] Glucose p fast SerPl-mCncon 07-13-2024 Glucose post fast [Mass/Vol] 81 mg/dL Normal 74-99 [facility] Comment on above: Order Comment: Telly sams Type: BLOOD SPECIMENOrdering Facility: [facility] Address: [address] [place] [address] Result Comment: [place] Diabetes Association guidelines state that a diabetes mellitus diagnosis is preliminarily made when the fasting plasma glucose meets or exceeds 126 mg/dL. In the absence of unequivocal hyperglycemia, results should be confirmed with repeat testing. Patients are at increased risk for diabetes mellitus (prediabetes) when the fasting glucose is 100 to 125 mg/dL. Performed By: #### 1 558-6 ####[facility] LABORATORYCLIA [id number] [place] [address] [place] Insulin SerPl-aCncon 025 Insulin Qn 6.6 uU/mL Normal 2.6-24.9 [facility] Comment on above: Order Comment: Speci men Type: BLOOD SPECIMENOrdering Facility: [facility] Address: [address] [place] [address] Performed By: #### 1 986-9, 55647-0 ####[facility] LABCLIA [id number] [address] [place] CNPNancy 07-09-2024 CNPN Telephone (ENDOMN) MARY BURRELL ([id number]) 1990 F Date Time Provider Department 07/09/24 MANUELA ISBELL ENDOMN During your visit today, we recorded the following information about you: Kimberley Ledesma 07/09/2024 9:35 AM Signed Called patient and left voicemail to notify of scheduled appointment Allergies As of Date: 07/09/2024 Noted Allergy Reaction METOPROLOL 07/28/2011 4 - Hives 12 - Shortness of Breath Comments: heart racing DOXYCYCLINE 01/15/2020 4 - Hives LATEX 05/19/2009 2 - Rash PERCOCET (OXYCODONE-ACETAMINOP HEN)12/22/2012 9 - Itching Comments: Heart races TOMATOES 09/18/2009 7 - Swelling VICODIN (HYDROCODONE-ACETAMIN OPHE*02/24/2011 4 - Hives 9 - Itching Date Reviewed: 04/09/2024 Reviewed by: Stef Luis RD - Fully Assessed Reason for Visit: Appointment [186] Cmt: Called patient and left voicemail to notify of scheduled appointment Prescriptions as of 07/09/2024 - Blood-Glucose Meter,Continuous (DEXCOM G7 BALANCE RECESSER) misc 1 Each as directed. - Blood-Glucose Sensor (DEXCOM G7 SENSOR) allison 1 Each every 10 days. - glucagon 3 mg/actuation nasal spray (BAQSIMI) Use 1 [place] in the nose as needed for low blood sugar. May repeat after 15 minutes using a new device if there is no response. - Magnesium Oxide 500 mg cap Take 1 capsule by mouth once daily. - Creatinine, Bulk, 100 % powd 1,500 mg once daily. - amitriptyline (ELAVIL) 10 mg tablet Take 2 tablets by mouth daily at bedtime. - vitamin A (AQUASOL A) 10,000 unit capsule Take 10,000 Units by mouth once daily. - ferrous sulfate (IRON) 325 mg (65 mg iron) tablet Take 325 mg by mouth once daily. - Cyanocobalamin 2,500 mcg subl Take 1 tablet by mouth once daily. - Cholecalciferol, Vitamin D3, (VITAMIN D-3) 50 mcg (2,000 unit) cap Take 1 capsule by mouth once daily. - calcium carbonate (CALCIUM 600 ORAL) Take 3 tablets by mouth once daily. (1800 daily) Problem List As Of Date 07/09/2024 Noted Resolved Weight gain [R63.5] 08/21/2009 10/22/2015 Obesity [E66.9] 08/21/2009 10/22/2015 Class 3 severe obesity without serious comorbid*10/07/2009 Esophagitis, unspecified [K20.90] 03/10/2012 10/22/2015 Fracture of 5th metatarsal [S92.353A] 07/21/2012 10/22/2015 Difficulty walking [R26.2] 12/14/2012 10/22/2015 Spotting in [O26.859] 07/15/2016 History of loop electrosurgical excision proced*07/15/2016 History of labor [Z87.51] 07/15/2016 History of depression [Z86.59] 07/15/2016 History of depression [Z87.59, Z86.5*07/15/2016 Family history of cystic fibrosis [Z83.49] 07/15/2016 Panic disorder [F41.0] 12/01/2017 Calculus of gallbladder without cholecystitis w*12/26/2019 Incidental lung nodule, > 3mm and < 8mm [R91.1] 12/26/2019 High grade squamous intraepithelial lesion of c*01/01/2016 09/08/2020 Morbid obesity (HCC) [E66.01] 09/15/2020 Iron deficiency [E61.1] 02/06/2021 GERD (gastroesophageal reflux disease) [K21.9] 04/27/2021 Severe obesity (BMI >= 40) (HCC) [E66.01] 07/07/2021 Encounter Status:Closed by KIMBERLEY LEDESMA on 07/09/24 Normal [facility] B-HYDROXYBUTYRATEon 07-06-19 25 Beta hydroxybutyrate [Moles/Vol] 0.44 mmol/L High <0.28 [facility] Comment on above: Order Comment: Speci men Type: BLOOD SPECIMENOrdering Facility: [facility] Address: [address] [place] [address] Performed By: #### B HB ####[facility] LABORATORYCLIA [id number] [place] [address] [place] C peptide SerPl-mCncon 07-06 C peptide [Mass/Vol] 2.0 ng/mL Normal 1.1-4.4 [facility] Comment on above: Order Comment: Speci men Type: BLOOD SPECIMENOrdering Facility: [facility] Address: [address] [place] [address] Performed By: #### 1 986-9, 24590-0 ####[facility] LABCLIA [id number] [place] [address] [place] Insulin SerPl-aCncon 025 Insulin Qn 6.1 uU/mL Normal 2.6-24.9 [facility] Comment on above: Order Comment: Speci men Type: BLOOD SPECIMENOrdering Facility: [facility] Address: [address] [place] [address] Performed By: #### 1 986-9, 61426-5 ####[facility] LABCLIA [id number] [place] [address] [place] Thyroidon 05-30-2024 Thyroid [facility] Imaging Services [address] [place], [place] [address] Thyroid MR#: [id number] Acct: [id number] Name: MARY BURRELL Rep #: [id number] : 1990 F 34 From: Irving rosen MD PCP: Dr. Asif Haque MD Status: [facility] CLI Study: Thyroid Date of Exam: 05/30/24 Exam# [id number] Ordering Dr: Felice Centeno [place] [id number] STUDY: THYROID ULTRASOUND REASON FOR EXAM: Female, 34 years old. yearly check nodule follow-up TECHNIQUE: Ultrasound evaluation of the thyroid was performed with real-time and static rocha-scale imaging. COMPARISON: None. FINDINGS: RIGHT LOBE: The right lobe of the thyroid gland measures 6.1 x 2.4 x 2.0 cm. There is a heterogeneous echotexture. Numerous small nodules and cysts are scattered throughout the entire gland consistent with multinodular goiter. A few dominant nodules are present in the inferior pole measuring 1.4 cm and 9 mm respectively with hyperplastic/adenomat ous features. Comparison can be made with the outside images which are not available for review. LEFT LOBE: The left lobe of the thyroid gland measures 5.3 x 2.0 x 1.5 cm. There is a heterogeneous echotexture. There are no demonstrated solid, cystic or complex lesions. No demonstrated dominant nodules. ISTHMUS: The isthmus measures 6 mm. No demonstrated masses or fluid collections or cysts or lymphadenopathy in the surrounding tissues. Mild to moderate enlargement of the thyroid gland. US/Thyroid IMPRESSION: 1. Multinodular goiter. A few dominant nodules are present in the inferior pole measuring 1.4 cm and 9 mm respectively with hyperplastic/adenomat ous features. Comparison can be made with the outside images which are not available for review. 2. TR2: 2 points = not suspicious 3. If physical symptoms, abnormal thyroid values or other findings warrant further radiologic assessment repeat the study and consider nuclear medicine iodine 123 or PET/CT if there is concern for malignancy. 4. Targeted image guided biopsy of nodules of interest can also be performed with definitive pathologic assessment and diagnosis. ACR Thyroid Imaging Reporting and Data System (ACR TI-RADS) Reference: COMPOSITION (choose 1): Cystic or almost completely cystic - 0 points Spongiform- 0 points Mixed cystic and solid - 1 point Solid almost completely solid - 2 points ECHOGENICITY (choose 1): Anechoic space - 0 points Hyperechoic or isoechoic-1 point Hypoechoic-2 points Very hypoechoic-3 points SHAPE (choose 1): : Wider than tall-0 points Taller than wide-3 points MARGINS ( smooth, lobular, ill-defined) ECHOGENIC FOCI (macro or microcalcifications) Scoring and classification TR1: 0 points = benign TR2: 2 points = not suspicious TR3: 3 points = mildly suspicious TR4: 4-6 points = moderately suspicious TR5: ?7 points = highly suspicious Recommendations TR1: no FNA required TR2: no FNA required TR3: ?1.5 cm follow up, ?2.5 cm FNA = follow up: 1, 3 and 5 years TR4: ?1.0 cm follow up, ?1.5 cm FNA = follow up: 1, 2, 3 and 5 years TR5: ?0.5 cm follow up, ?1.0 cm FNA = annual follow up for up to 5 years FNA biopsy is recommended for suspicious lesions (TR3-TR5) with the above size criteria. If there are multiple nodules, the two with the highest ACR TI-RADS scores should be sampled (rather than the two largest), with largest size being used a tie-breaker if there are multiple nodules of the same classification. Electronically Signed: Irving Milton MD at 22:11 EST , CC: Dr. Felice Centeno MD; Dr. 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 [place], [place], [id number] Estradiolon 05-21-2024 ESTRADIOL 69.3 pg/mL Normal [facility] Comment on above: Result Comment: NORM AL REFERENCE RANGES FEMALE FOLLICULAR 21.4 - 164.8 pg/mL MID-CYCLE PEAK 49.9 - 367.2 pg/mL LUTEAL 40.2 - 259.0 pg/mL POST-MENOPAUSAL ON MHT <11.0 - 462.1 pg/mL NOT ON MHT <11.0 - 58.3 pg/mL MALE <11.0 - 52.5 pg/mL NOTE: [facility] HAS CONFIRMED THE DRUG FULVETRANT (FASLODEX) MAY CAUSE FALSELY ELEVATED ESTRADIOL RESULTS WHEN USING THIS TEST METHOD. IF PATIENT IS TAKING FULVESTRANT AN ALTERNATIVE METHOD SHOULD BE USED TO DETERMINE ESTRADIOL CONCENTRATION. Performed By: #### L 3100.5125, L3300.1750 #### [facility] [address] [place], [place], [address] Follicle Stimulating Hormone on 05-21-2024 FSH 5.4 mIU/mL Normal [facility] Comment on above: Result Comment: NORMAL REFERENCE RANGES FEMALE FOLLICULAR 2.3 - 12.6 mIU/mL MID-CYCLE PEAK 5.2 - 17.5 mIU/mL LUTEAL 1.7 - 12.9 mIU/mL POST-MENOPAUSAL ON MHT 5.9 - 72.8 mIU/mL NOT ON MHT 12.7 - 132.2 mlU/mL MALE 0.7 - 10.8 mIU/mL Performed By: #### L 3100.5125, L3300.1750 #### [facility] [address] [place], [address] Pension Fund Manager Office Visit Reporton 05-21-2024 Pension Fund Manager Office Visit Report [facility] [address], [address] [place] [address] OFFICE VISIT Date of Service: 05/21/24 MR#: [id number] Acct: [id number] Name: MARY BURRELL Rep #: [id number] : 1990 Provider: Dr. 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) Monotyper Required: No Is patient in pain?: No Allergies metoprolol Allergy (Severe, Verified 04/16/24 07:02) Hives oxycodone HCl (From Percocet) Allergy (Severe, Verified 04/16/24 07:02) Hives hydrocodone bitartrate (From Vicodin) Allergy (Intermediate, Verified 04/16/24 07:02) Hives latex Allergy (Mild, Verified 04/16/24 07:02) Rash dicloxacillin Allergy (Verified 04/16/24 07:02) Hives Medications ???Medication ???Instructions ???Recorded ???Confirmed ???Type calcium carbonate (Calcium 600) 600 mg PO BID 05/13/23 05/21/24 History cholecalciferol (vitamin D3) 50 50 mcg PO DAILY 05/13/23 05/21/24 History mcg (2,000 unit) capsule ferrous sulfate 325 mg (65 mg 325 mg PO DAILY 05/13/23 05/21/24 History iron) tablet (Feosol) mecobalamin (vitamin B12) 2,500 mcg PO 05/13/23 05/21/24 History mcg chewable tablet phentermine 37.5 mg capsule 37.5 mg PO QDAY 03/08/24 05/21/24 History Is last menstrual period known: No Post menopausal: No Patient : No : No PFSH Medical History Acute bronchitis, unspecified Collin's thyroiditis Wears glasses Depression Anxiety Low iron Easy bruising Migraine headache Heartburn Former smoker Leg cramps History of irregular heartbeat Abnormal uterine bleeding (AUB) Shoulder pain SOB (shortness of breath) History of pre-eclampsia Surgical History Status post bariatric surgery S/P hernia surgery H/O gastric bypass Hx of cholecystectomy History of total vaginal hysterectomy (TVH) S/P vaginal hysterectomy ( 02/24/21) Status post bilateral salpingectomy ( 09/25/19) History of foot surgery History of tonsillectomy Hx LEEP (loop electrosurgical excision procedure), cervix, Family History Grandmother Cancer Anxiety Osteoporosis Thyroid disorder Father Bleeding disorder Liver disease Mother Anesthesia complication Diabetes Hypertension Social History Smoking Status: Former smoker second hand exposure: No alcohol intake: never substance use type: does not use caffeine: No what type of physical activity do you participate in: none and other details: 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 seatbelt use: always do you feel safe at home: Yes additional social history: Kash History 7 Elective abortions Hx Para 4 Spontaneous abortions Hx # Term Pregnancies Ectopic pregnancies Hx # Pregnancies Multiple births # of living children 5 Past Pregnancies Del. Date Name GA/Weeks Outcome Route Bth Weight Infant Gen Labor Lgth Anesthesia Del Locatn Provider FOB Unknown Angus 2008 40 8pounds 3 ounce epidural Unknown 2010 39 live - full term 7 lb 03/05/17 Doreen 39 8 lbs Female [facility] ANNA 08/01/18 Stu 39 live - full term Female spinal [facility] ANNA 07/19/19 Roosevelt 39 live - full term Male epidural [facility] SE M Delivery Date: 08/01/18 Last Updated by: Vandana Diaz polyhydramnios Delivery Date: 07/19/19 Last Updated by: Ping Franks POly HPI Encounter for routine gynecological examination Details: MARY BURRELL is a 34 year old who presents for annual exam. Last PAP: 05/06/2020 - normal, has had hysterectomy History of abnormal PAP: Last mammogram: 03/14/2024, mamm and US - benign History of abnormal mammogram: Colon cancer screening: Other preventative health care screenings: PCP is Dr. Haque, patient also sees bariatric physician every 3 months Female Reproductive History Menopausal Symptoms: Yes hot flashes and Yes night sweats ROS Const Constitutional: Reports as per HPI, fatigue and night sweats; Denies increased appetite, poor appetite, weight gain or weight loss Cardio Card: Denies chest pain Resp Resp: Denies cough or dyspnea GI GI: Reports as per HPI; Denies abdominal pain, bloating, constipation, nausea or vomiting : Reports as per HPI, hot flashes and other; Denies difficulty voiding, dysuria, hematuria, nipple discharge, pelvic pain, prolapse symptoms, urinary frequency, urinary incontin (more content not included)... Normal [facility] PTHINon 05-21-2024 PTH 84.1 pg/mL High 18.4-80.1 [facility] Comment on above: Performed By: #### L 509.1000, L501.2200 #### [facility] [address] [place], [place], [id number] Urgent Care Visit Reporton 1 06-17-2023 Urgent Care Visit Report [facility] [address], [address] [place], [place] [address] OFFICE VISIT Date of Service: 04/16/24 MR#: [id number] Acct: [id number] Name: MARY BURRELL RICARDO Rep #: [id number] : 1990 Provider: STEVAN Gallegos Age/Sex: 33/F Location: [facility] Status: Signed Intake Vital Signs 03/08/24 15:13 04/16/24 07:02 Height 5 ft 7 in Weight: 209 lb BMI 32.7 BP 134/83 H 118/78 Blood Pressure Location Lt brachial Position Sitting Respiration 12 Pulse 74 Pulse Source NIBP Temp 97.9 F Temp Source Oral Pulse Oximetry (%) 98 Oxygen Delivery Method room air Intake Visit Reasons: L EAR PAIN Chief Complaint: left ear pain, sinus congestion Monotyper Required: No Is patient in pain?: No Allergies metoprolol Allergy (Severe, Verified 04/16/24 07:02) Hives oxycodone HCl (From Percocet) Allergy (Severe, Verified 04/16/24 07:02) Hives hydrocodone bitartrate (From Vicodin) Allergy (Intermediate, Verified 04/16/24 07:02) Hives latex Allergy (Mild, Verified 04/16/24 07:02) Rash dicloxacillin Allergy (Verified 04/16/24 07:02) Hives Is last menstrual period known: No Post menopausal: No Patient : No Have you fallen in the past year?: No Nurse's Note: patient here for left ear pain x4 days, sinus congestion x2 days, patient states is off balance since yesterday. PFSH Medical History Acute bronchitis, unspecified Collin's thyroiditis Wears glasses Depression Anxiety Low iron Easy bruising Migraine headache Heartburn Former smoker Leg cramps History of irregular heartbeat Abnormal uterine bleeding (AUB) Shoulder pain SOB (shortness of breath) History of pre-eclampsia Surgical History Status post bariatric surgery S/P hernia surgery H/O gastric bypass Hx of cholecystectomy History of total vaginal hysterectomy (TVH) S/P vaginal hysterectomy ( 02/24/21) Status post bilateral salpingectomy ( 09/25/19) History of foot surgery History of tonsillectomy Hx LEEP (loop electrosurgical excision procedure), cervix, Family History Grandmother Cancer Anxiety Osteoporosis Thyroid disorder Father Bleeding disorder Liver disease Mother Anesthesia complication Diabetes Hypertension Social History Smoking Status: Former smoker second hand exposure: No alcohol intake: never substance use type: does not use caffeine: No what type of physical activity do you participate in: none and other details: 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 No complaints of fever, chills, myalgias, fatigue, runny nose, or vomiting/diarrhea. No complaints of chest pain/shortness of breath/dyspnea on exertion. No close contacts with similar complaints. No other associated symptoms and no other alleviating/aggravati ng factors. ROS Const Constitutional: No other (as above) Exam Const General: cooperative, healthy appearing and no acute distress Nutritional Appearance: average body habitus Orientation: alert, awake and oriented x3 HENMT Head: normal to inspection Ears: hearing grossly normal bilaterally, external ears normal, TM's normal bilaterally and EAC's normal Nose: external nose normal, nares normal, septum normal and no nasal discharge Face and sinus: normal facial exam, sinuses tender (left frontal) and face symmetric Mouth: oral mucosae normal, lip normal, tongue normal and oropharynx normal Throat: posterior oropharynx normal, tonsils normal, uvula midline and postnasal drainage (Purulent) Eyes General: appearance normal, both eyes and all related structures Neck Neck: normal visual inspection, full ROM, no meningeal signs, supple and lymphadenopathy (Bilateral anterior cervical lymph node swelling/tender to palpation) Neck mass: No Thyroid: thyroid normal Chest Chest palpation inspection: normal inspection of the chest Resp Effort Inspection: normal respiratory effort and able to speak in complete sentences Auscultation: Bilateral: Clear to Auscultation Cardio Palpation: normal PMI Rate: regular rate Rhythm: regular rhythm Heart Sounds: S1 normal, S2 normal, no gallops, no murmurs and no rubs Pulses: radial pulses present GI (more content not included)... Normal [facility] Breast Limited Unilateralon 03-14-2024 Breast Limited Unilateral [facility] Imaging Services [address] [place] [address] Breast Limited Unilateral MR#: [id number] Acct: [id number] Name: MARY BURRELL RICARDO Rep #: [id number] : 1990 F 33 From: Walker dove MD PCP: Dr. Asif Haque MD Status: REG CLI Study: Breast Limited Unilateral Date of Exam: Exam# [id number] Ordering Dr: Julissa Connell [id number] STUDY: ULTRASOUND BREAST - RIGHT REASON FOR EXAM: Female, 33 years old. Right lateral breast lump. TECHNIQUE: Axial and longitudinal images of the RIGHT breast were performed with a high resolution ultrasound transducer. # OF IMAGES: 18 COMPARISON: Comparison is made with prior mammogram done earlier in the day. FINDINGS: RIGHT Breast: The lateral aspect of the right breast was examined with ultrasound. There is dense fibroglandular tissue. No sonographic abnormality is seen. US/Breast Limited Unilateral IMPRESSION: No sonographic abnormality is seen. ASSESSMENT CATEGORY: BIRADS Category 1: Negative. A letter regarding these results will be sent to the patient by the facility within 30 days. Electronically Signed: Walker Chatterjee MD at 12:42 EST Reading Location ID and State: [facility] / [place] , Service support , CC: Dr. Julissa Connell MD; Dr. Asif Haque MD Mechanic Sound Technician: Signed Normal [facility] DIAG MAMM W/CAD, [place] DIAG MAMM W/CAD, [facility] Imaging Services [address] [place] [id number] DIAG MAMM W/CAD, [facility] MR#: [id number] Acct: [id number] Name: INDRAMARY ANN Rep #: [id number] : 1990 F 33 From: Walker dove MD PCP: Dr. Asif Haque MD Status: [facility] Study: DIAG MAMM W/CAD, BILAT Date of Exam: 03/14/24 Exam# [id number] Ordering Dr: Julissa Connell [id number] MAMMOGRAPHY - BILATERAL DIAGNOSTIC REASON FOR EXAM: Female, 33 years old. One week history of a right breast lump PERTINENT HISTORY: Non-contributory. TECHNIQUE: Digital bilateral breast jeri (3D mammographic acquisition) in the CC and MLO projections. 2-D mediolateral oblique (MLO) and craniocaudad (CC) views of both breasts were obtained. CAD: Full Field Digital Mammography with Computer Added Detection was performed. COMPARISON: None. Baseline examination. FINDINGS: Breast Composition: The breasts are heterogeneously dense, which may obscure small masses. There are no dominant masses or suspicious calcifications. Asymmetry of breast tissue where more breast tissue is seen in the retroareolar region of the right breast as compared to the left side. Correlation with ultrasound is recommended for further evaluation. No other significant abnormalities are identified. BI/DIAG MAMM W/CAD, BILAT IMPRESSION: Asymmetry of breast tissue with more breast tissue is seen in the retroareolar region of the right breast as compared to the left side. Correlation with ultrasound is recommended. ASSESSMENT CATEGORY: BIRADS Category 0: Incomplete. Need additional imaging evaluation. A letter regarding these results will be sent to the patient by the facility within 30 days. Approximately 10% of breast cancers are not detected by mammography. A normal mammogram should not delay biopsy of a clinically suspicious abnormality. Electronically Signed: Walker Chatterjee MD at 11:31 EST Reading Location ID and State: [facility] / [place] , Service support , CC: Dr. Julissa Connell MD; Dr. Asif Haque MD Mechanic Sound Technician: Signed Normal [facility] Pension Fund Manager Office Visit Reporton 03-08-2024 Pension Fund Manager Office Visit Report [facility] [address], [address] [place] [address] OFFICE VISIT Date of Service: 03/08/24 MR#: [id number] Acct: [id number] Name: MARY BURRELL Rep #: [id number] : 1990 Provider: Dr. Julissa enamorado MD Age/Sex: 33/F Location: [facility] [place] Status: Signed Intake Vital Signs 05/13/23 11:40 03/08/24 15:13 Height 5 ft 7 in 5 ft 7 in Weight: 209 lb BMI 32.7 BP 134/83 H Intake Visit Reasons: breast lump Monotyper Required: No Is patient in pain?: Yes (bilateral breast tenderness) Feel stressed/tense/nervou s/anxious/difficulty sleeping: to some extent Allergies metoprolol Allergy (Severe, Verified 03/08/24 15:16) Hives oxycodone HCl (From Percocet) Allergy (Severe, Verified 03/08/24 15:16) Hives hydrocodone bitartrate (From Vicodin) Allergy (Intermediate, Verified 03/08/24 15:16) Hives latex Allergy (Mild, Verified 03/08/24 15:16) Rash dicloxacillin Allergy (Verified 03/08/24 15:16) Hives Medications ???Medication ???Instructions ???Recorded ???Confirmed ???Type calcium carbonate (Calcium 600) 600 mg PO BID 05/13/23 03/08/24 History cholecalciferol (vitamin D3) 50 50 mcg PO DAILY 05/13/23 03/08/24 History mcg (2,000 unit) capsule ferrous sulfate 325 mg (65 mg 325 mg PO DAILY 05/13/23 03/08/24 History iron) tablet (Feosol) mecobalamin (vitamin B12) 2,500 mcg PO 05/13/23 03/08/24 History mcg chewable tablet amoxicillin 875 mg-potassium 1 tab PO BID 03/08/24 03/08/24 History clavulanate 125 mg tablet phentermine 37.5 mg capsule 37.5 mg PO QDAY 03/08/24 03/08/24 History Is last menstrual period known: No Post menopausal: No Patient : No : No PFSH Medical History Acute bronchitis, unspecified Collin's thyroiditis Wears glasses Depression Anxiety Low iron Easy bruising Migraine headache Heartburn Former smoker Leg cramps History of irregular heartbeat Abnormal uterine bleeding (AUB) Shoulder pain SOB (shortness of breath) History of pre-eclampsia Surgical History Status post bariatric surgery S/P hernia surgery H/O gastric bypass Hx of cholecystectomy History of total vaginal hysterectomy (TVH) S/P vaginal hysterectomy ( 02/24/21) Status post bilateral salpingectomy ( 09/25/19) History of foot surgery History of tonsillectomy Hx LEEP (loop electrosurgical excision procedure), cervix, Family History Grandmother Cancer Anxiety Osteoporosis Thyroid disorder Father Bleeding disorder Liver disease Mother Anesthesia complication Diabetes Hypertension Social History Smoking Status: Former smoker second hand exposure: No alcohol intake: never substance use type: does not use caffeine: No what type of physical activity do you participate in: none and other details: 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 seatbelt use: always do you feel safe at home: Yes additional social history: Kash MOONEY breast lump Details: MARY BURRELL is a 33 year old who presents for right nipple pain and swollen right size noticed in the last day. she has been sick ov erhte last month with multiple infections. she has been having hot flashes and palpitations. she doesn't drink much caffeine. no family hiostry of breast cancer. History 7 Elective abortions Hx Para 4 Spontaneous abortions Hx # Term Pregnancies Ectopic pregnancies Hx # Pregnancies Multiple births # of living children 5 Past Pregnancies Del. Date Name GA/Weeks Outcome Route Bth Weight Infant Gen Labor Lgth Anesthesia Del Locatn Provider FOB Unknown Angus 2008 40 8pounds 3 ounce epidural Unknown Ai 2010 39 live - full term 7 lb 03/05/17 Doreen 39 8 lbs Female [facility] ANNA 08/01/18 Stu 39 live - full term Female spinal [facility] ANNA 07/19/19 Roosevelt 39 live - full term Male epidural [facility] SE M Delivery Date: 08/01/18 Last Updated by: Vandana Diaz polyhydramnios Delivery Date: 07/19/19 Last Updated by: Ping Franks POly ROS Const Constitutional: Reports system reviewed and no additional complaints, except as documented GI GI: Reports system reviewed and no additional complaints, except as documented : Reports as per HPI Skin Skin/Breast: Reports as per HPI; Denies alopecia, change in hair or dry skin Exam Const General: cooperative, healthy appearing, comfortable, no acute distress and well developed Nutritional Appearance: average body habitus Orientation: alert HENSC Head: normal to inspection and nor (more content not included)... Normal [facility] CNOVon 03-06-2024 CNOV Office Visit (UCWSTR ) MARY BURRELL ([id number]) 1990 F Date Time Provider Department 03/06/24 7:30 AM [facility] During your visit today, we recorded the following information about you: Temperature Pulse Respiration Blood pressure 98.5 degrees 100/minute 18/minute 122/80 Weight 98.9 kg Crista Carmichael APRN.CHILD DEVELOPMENT CONSULTANT 03/06/2024 7:46 AM Signed Subjective HPI HPI Mary Sharyn Indra is a 33 year old female who presents today for CC of sinus pressure/drainage, ear pain. This started 1 month ago. Has tried otc medication without relief. Symptoms are worsened by nothing. Nonsmoker. Denies possibility of being . .Patient presents with: Nasal Congestion: drainage, headache, ear pain and cough x 1 month PAST MEDICAL HISTORY Diagnosis Date Abnormal Pap smear of cervix Class 3 severe obesity without serious comorbidity with body mass index (BMI) of 60.0 to 69.9 in adult (HCC) 10/07/2009 Esophagitis, unspecified High grade squamous intraepithelial lesion of cervix 01/01/2016 Iron deficiency 02/06/2021 Neck mass fatty deposit depression PAST SURGICAL HISTORY Procedure Laterality Date ESOPHAGOGASTRODUODENO SCOPY TRANSORAL DIAGNOSTIC 03/10/2012 EGD repeat 1 year FOOT SURGERY HX 2013 GASTRIC BYPASS HX 07/07/2021 [facility] Main LEEP PROCEDURE ([employer]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 Magnesium Oxide 500 mg cap Take 1 capsule by mouth once daily. vitamin A (AQUASOL A) 10,000 unit capsule Take 10,000 Units by mouth once daily. ferrous sulfate (IRON) 325 mg (65 mg iron) tablet Take 325 mg by mouth once daily. Cyanocobalamin 2,500 mcg subl Take 1 tablet by mouth once daily. Cholecalciferol, Vitamin D3, (VITAMIN D-3) 50 mcg (2,000 unit) cap Take 1 capsule by mouth once daily. calcium carbonate (CALCIUM 600 ORAL) Take 3 tablets by mouth once daily. (1800 daily) Creatinine, Bulk, 100 % powd 1,500 mg once daily. (Patient not taking: Reported on 02/14/2024) amitriptyline (ELAVIL) 10 mg tablet Take 2 tablets by mouth daily at bedtime. (Patient not taking: Reported on 02/14/2024) FAMILY HISTORY Problem Relation Age of Onset Obesity Mother Diabetes Mother Heart Mother Hypertension Mother Blood Disease Father Arthritis Father Obesity Father Cancer Maternal Grandmother lung and liver Kidney Disease Maternal Grandfather Emphysema Paternal Grandmother Diabetes Maternal Uncle Coronary Artery Disease Maternal Uncle Collin Disease Paternal Aunt Collin Disease Paternal cousin Social History Tobacco Use Smoking status: Former Current packs/day: 0.00 Types: Cigarettes Start date: 05/25/2006 Quit date: 11/23/2006 Years since quittin.2 Smokeless tobacco: Never Vaping Use Vaping status: Never Used Substance Use Topics Alcohol use: Not Currently Comment: stopped 08/19/2017 Drug use: No Review of Systems Constitutional: Negative for fever. HENT: Positive for congestion, ear pain and sinus pain. Negative for nosebleeds and sore throat. Respiratory: Negative for cough, shortness of breath and wheezing. Musculoskeletal: Negative for neck pain. Objective Blood pressure 122/80, pulse 100, temperature 36.9 ?C (98.5 ?F), resp. rate 18, weight 98.9 kg (218 lb 0.6 oz), last menstrual period 08/28/2020, SpO2 98%. Physical Exam Constitutional: General: She is not in acute distress. Appearance: She is not toxic-appearing or diaphoretic. HENT: Head: Normocephalic and atraumatic. Right Ear: Hearing, tympanic membrane, ear canal and external ear normal. Left Ear: Hearing, tympanic membrane, ear canal and external ear normal. Nose: Nose normal. Mouth/Throat: Pharynx: Uvula midline. No pharyngeal swelling, oropharyngeal exudate, posterior oropharyngeal erythema or uvula swelling. Eyes: General: Lids are normal. No scleral icterus. Right eye: No discharge. Left eye: No discharge. Conjunctiva/sclera: Conjunctivae normal. Pupils: Pupils are equal, round, and reactive to light. Neck: Trachea: Trachea normal. Cardiovascular: Rate and Rhythm: Normal rate and regular rhythm. Heart sounds: Normal heart sounds. Pulmonary: Effort: Pulmonary effort is normal. Breath sounds: Normal breath sounds. Musculoskeletal: Cervical back: Normal range of motion and neck supple. Lymphadenopathy: Cervical: No cervical adenopathy. Right cervical: No superficial cervical adenopathy. Left cervical: No superficial cervical adenopathy. Skin: Findings: No rash. Neurological: Mental Status: She is alert and oriented to person, (more content not included)... Normal [facility] Urgent Care Visit Reporton 1 Urgent Care Visit Report [facility] [address] , [address] [place], [place] [address] OFFICE VISIT Date of Service: 02/21/24 MR#: [id number] Acct: [id number] Name: MARY BURRELL Rep #: [id number] : 1990 Provider: STEVAN Gallegos Age/Sex: 33/F Location: [facility] Status: Signed Intake Vital Signs 05/13/23 11:40 02/21/24 07:53 Height 5 ft 7 in BP 130/74 H Blood Pressure Location Lt brachial Position Sitting Respiration 15 Pulse 76 Pulse Source NIBP Temp 98.1 F Temp Source Oral Pulse Oximetry (%) 98 Oxygen Delivery Method room air Intake Visit Reasons: Upper respiratory infection Chief Complaint: chest congest, cough, grn mucus Monotyper Required: No Is patient in pain?: No Allergies metoprolol Allergy (Severe, Verified 02/21/24 07:58) Hives oxycodone HCl (From Percocet) Allergy (Severe, Verified 02/21/24 07:58) Hives hydrocodone bitartrate (From Vicodin) Allergy (Intermediate, Verified 02/21/24 07:58) Hives latex Allergy (Mild, Verified 02/21/24 07:58) Rash dicloxacillin Allergy (Verified 02/21/24 07:58) Hives Is last menstrual period known: No Post menopausal: No Patient : No Have you fallen in the past year?: No Nurse's Note: chest congest, cough, grn mucus x 8 days. concern for bronchitis. declines covid testing PFSH Medical History (Updated 02/21/24 @ 10:11 by STEVAN [place]) Acute bronchitis, unspecified Collin's thyroiditis Wears glasses Depression Anxiety Low iron Easy bruising Migraine headache Heartburn Former smoker Leg cramps History of irregular heartbeat Abnormal uterine bleeding (AUB) Shoulder pain SOB (shortness of breath) History of pre-eclampsia Surgical History (Updated 05/10/23 @ 15:[address] Aj Carmichael MD) Status post bariatric surgery S/P hernia surgery H/O gastric bypass Hx of cholecystectomy History of total vaginal hysterectomy (TVH) S/P vaginal hysterectomy ( 02/24/21) Status post bilateral salpingectomy ( 09/25/19) History of foot surgery History of tonsillectomy Hx LEEP (loop electrosurgical excision procedure), cervix, Family History Grandmother Cancer Anxiety Osteoporosis Thyroid disorder Father Bleeding disorder Liver disease Mother Anesthesia complication Diabetes Hypertension Social History Smoking Status: Former smoker second hand exposure: No alcohol intake: never substance use type: does not use caffeine: No what type of physical activity do you participate in: none and other details: 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 seatbelt use: always do you feel safe at home: Yes additional social history: [facility] HPI Chief Complaint: chest congest, cough, grn mucus Details: MARY BURRELL, is a 33 F who presents to the office today for initial evaluation of 8-day history of productive purulent cough with concerned she may have a bacterial bronchitis. She notes being very anxious and worried as she cares for her mother with chronic unstable CHF. No complaints of chest pressure or shortness of breath or dyspnea on exertion. No close contacts with similar complaints. Non-smoker. No [id number] products taken to assist. No other associated symptoms and no other alleviating/aggravati ng factors. ROS Const Constitutional: No other (as above) Exam Const General: cooperative, healthy appearing and no acute distress Orientation: alert and awake [facility] Head: normal to inspection Ears: hearing grossly normal bilaterally, external ears normal, TM's normal bilaterally and EAC's normal Nose: external nose normal, nares normal, septum normal and no nasal discharge Face and sinus: normal facial exam, sinuses nontender and face symmetric Mouth: oral mucosae normal, lip normal, tongue normal and oropharynx normal Throat: posterior oropharynx normal, tonsils normal, uvula midline and no postnasal drainage Eyes General: appearance normal, both eyes and all related structures Neck Neck: normal visual inspection, full ROM, no lymphadenopathy, no meningeal signs and supple Neck mass: No Thyroid: thyroid normal Lymphatic: no lymphadenopathy noted Chest Chest palpation inspection: normal inspection of the chest Resp Effort Inspection: normal respiratory effort, able to speak in complete sentences and cough Quality of cough: wet (Nonproductive during today's exam) Auscultation: Bilateral: Clear to Auscultation Cardio Palpation: normal PMI Rate: regular rate Rhythm: regular rhythm Heart Sounds: S1 normal, S2 normal, no gallops, no murmurs and no rubs Pulses: radial pulses present GI Inspection: normal to inspection Palpation: soft and no hepatosplenomegaly Skin General: no r (more content not included)... Normal [facility] CNOVon 02-14-2024 CNOV Office Visit (ENWSTR ) BURRELLMARY Sharyn ([id number]) 1990 F Date Time Provider Department 02/14/24 9:20 AM DONITA GREEN ENWSTR During your visit today, we recorded the following information about you: Pulse Respiration Blood pressure Weight 78/minute 17/minute 122/90 97.5 kg Height 1.702 m Donita Green MD 02/14/2024 7:06 PM Signed [facility] Follow up note History of Present Illness: Maryritu Burrell is a 33 year old female here to establish care for Hashimotos thyroiditis and thyroid dysfunction How hypothyroidism was discovered: on labs after complaining of tachycardia and sweating episodes Current treatment: stopped taking LT4 prescribed for abnormal labs Prior treatment: LT4 200 mcg daily As per Prior history, she was started on 100 mcg of levothyroxine while thyroid labs being normal, with an expectation to preserve thyroid function- this has resulted in possible hyperthyroid symptoms for patient as in HPI leading to discontinuation of medication by patient spontaneously On last visit, I discontinued her levothyroxine completely and she feels better General symptoms: Fatigue: tired Weight change: since December 2023, she gained 13 lbs. 413 lbs before surgery, 192 last September 2022, lowest. 206 lbs at the time of calling OBGYN Thyroid antibodies checked, and were high Was referred to Endocrine- seen by Dr. Carmichael, who reviewed about Collin's, with risk of hypothyroidism, and told to start taking LT4 100 mcg daily to prevent thyroid dysfunction Within 4 weeks of starting levothyroxine she gained weight of 8 lbs and TSH was checked with low levels Appetite change: after starting levothyroxine she started having cravings Menstrual irregularities: hysterectomy done in Feb 2021 for a fibroma and has AUB Change in bowel habits: fluctuating since Gastric bypass Temperature intolerance: no, but sometimes breaks into sweats In September 2022, with abdominal pains, went to ER, no issues noted- gall bladder was unremarkable Gastric bypass 2 years ago Reports joint pains, and has palpitations and sweaty episodes randomly, lightheadedness, dizziness . It takes 6 hours for getting better. 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 ferrous sulfate (IRON) 325 mg (65 mg iron) tablet Take 325 mg by mouth once daily. Cyanocobalamin 2,500 mcg subl Take 1 tablet by mouth once daily. Cholecalciferol, Vitamin D3, (VITAMIN D-3) 50 mcg (2,000 unit) cap Take 1 capsule by mouth once daily. calcium carbonate (CALCIUM 600 ORAL) Take 1 tablet by mouth once daily. Phentermine HCl 37.5 mg tablet Take 1 tablet by mouth once daily for 90 days. levothyroxine (SYNTHROID) 100 mcg tablet Take 1 tablet by mouth daily before breakfast. (Patient not taking: Reported on 08/15/2023) No current facility-administered medications on file prior to visit. PAST MEDICAL HISTORY: PAST MEDICAL HISTORY Diagnosis Date Abnormal Pap smear of cervix Class 3 severe obesity without serious comorbidity with body mass index (BMI) of 60.0 to 69.9 in adult (HCC) 10/07/2009 Esophagitis, unspecified High grade squamous intraepithelial lesion of cervix 01/01/2016 Iron deficiency 02/06/2021 Neck mass fatty deposit depression PAST SURGICAL HISTORY: PAST SURGICAL HISTORY Procedure Laterality Date ESOPHAGOGASTRODUODENO SCOPY TRANSORAL DIAGNOSTIC 03/10/2012 EGD repeat 1 year FOOT SURGERY HX 2013 GASTRIC BYPASS HX 07/07/2021 [facility] LEEP PROCEDURE ([employer] DEPT)_*FL 12/2015 REMOVAL GALLBLADDER TONSILLECTOMY PRIMARY/SECONDARY VAGINAL HYSTERECTOMY 02/24/2021 Dr Connell FAMILY HISTORY: FAMILY HISTORY Problem Relation Age of Onset Obesity Mother Diabetes Mother Heart Mother Hypertension Mother Blood Disease Father Arthritis Father Obesity Father Cancer Maternal Grandmother lung and liver Kidney Disease Maternal Grandfather Emphysema Paternal Grandmother Diabetes Maternal Uncle Coronary Artery Disease Maternal Uncle Collin Disease Paternal Aunt Collin Disease Paternal cousin SOCIAL HISTORY: Social History Tobacco Use Smoking status: Former Current packs/day: 0.00 Types: Cigarettes Start date: 05/25/2006 Quit date: (more content not included)... Normal [facility] 25(OH)D3 [facility] 25-hydroxyvitamin D3 [Mass/Vol] 59.2 ng/mL Normal 31.0-80.0 [facility] Comment on above: Order Comment: Speci men Type: BLOOD SPECIMENOrdering Facility: [facility] Address: [address] [place] [address] Result Comment: Clas sification of 25 [place] Vitamin D status: Deficiency/Insufficiency: < or = 30 ng/ml. Sufficiency/Optimal Levels: 31-80 ng/mL Toxicity: > 100 ng/mL. Test performed by chemiluminescent immunoassay. Performed By: #### 1 989-3 ####[facility] LABCLIA [id number] [place] [address] [place] CBC W Auto Differential pane l (Bld)on 01-20-2024 Basophils (Bld) [#/Vol] 10*3/uL Normal <0.11 [facility] Comment on above: Order Comment: Speci men Type: BLOOD SPECIMENOrdering Facility: [facility] Address: [address] [place] [address] Performed By: #### 5 7021-8 ####[facility] [id number] [place] [address] [place] Basophils/100 WBC (Bld) 0.3 % Normal C [facility] Comment on above: Order Comment: Speci men Type: BLOOD SPECIMENOrdering Facility: [facility] Address: [address] [place] [address] Performed By: #### 5 7021-8 ####[facility] [id number] [place] [address] [place] Differential cell count method Nom (Bld) Auto Normal [facility] Comment on above: Order Comment: Speci men Type: BLOOD SPECIMENOrdering Facility: [facility] Address: [address] [place] [address] Performed By: #### 5 7021-8 ####[facility] [id number] [place] [address] [place] Eosinophils (Bld) [#/Vol] 0.10 10*3/uL Normal <0.46 [facility] Comment on above: Order Comment: Speci men Type: BLOOD SPECIMENOrdering Facility: [facility] Address: [address] [place] [address] Performed By: #### 5 7021-8 ####[facility] [id number] [place] [address] [place] Eosinophils/100 WBC (Bld) 1.7 % Normal [facility] Comment on above: Order Comment: Speci men Type: BLOOD SPECIMENOrdering Facility: [facility] Address: [address] [place] [address] Performed By: #### 5 7021-8 ####[facility] [id number] [place] [address] [place] Erythrocyte distribution width (RBC) [Ratio] 13.0 % Normal 11.5-15.0 [facility] Comment on above: Order Comment: Speci men Type: BLOOD SPECIMENOrdering Facility: [facility] Address: [address] [place] [address] Performed By: #### 5 7021-8 ####[facility] MILLWNCLIA [id number] [place] [address] [place] Hematocrit (Bld) [Volume fraction] 39.0 % Normal 36.0-46.0 [facility] Comment on above: Order Comment: Speci men Type: BLOOD SPECIMENOrdering Facility: [facility] Address: [address] [place] [address] Performed By: #### 5 7021-8 ####[facility]ITALLIA [id number] [place] [address] [place] Hemoglobin (Bld) [Mass/Vol] 13.1 g/dL Normal 11.5-15.5 [facility] Comment on above: Order Comment: Speci men Type: BLOOD SPECIMENOrdering Facility: [facility] Address: [address] [place] [address] Performed By: #### 5 7021-8 ####[facility]ITALL[facility] [id number] [place] [address] [place] Immature granulocytes (Bld) [#/Vol] 10*3/uL Normal <0.10 [facility] Comment on above: Order Comment: Speci men Type: BLOOD SPECIMENOrdering Facility: [facility] Address: [address] [place] [address] Performed By: #### 5 7021-8 ####[facility]CL[facility] [id number] [place] [address] [place] Immature granulocytes/100 WBC (Bld) 0.2 % Normal [facility] Comment on above: Order Comment: Speci men Type: BLOOD SPECIMENOrdering Facility: [facility] Address: [address] [place] [address] Performed By: #### 5 7021-8 ####[facility] [id number] [place] [address] [place] Lymphocytes (Bld) [#/Vol] 1.99 10*3/uL Normal 1.00-4.00 [facility] Comment on above: Order Comment: Speci men Type: BLOOD SPECIMENOrdering Facility: [facility] Address: [address] [place] [address] Performed By: #### 5 7021-8 ####[facility]ITALL[facility] [id number] [place] [address] [place] Lymphocytes/100 WBC (Bld) 33.0 % Normal [facility] Comment on above: Order Comment: Speci men Type: BLOOD SPECIMENOrdering Facility: [facility] Address: [address] [place] [address] Performed By: #### 5 7021-8 ####[facility]ITALJALEN [id number] [place] [address] [place] MCH (RBC) [Entitic mass] 28.9 pg Normal 26.0-34.0 [facility] Comment on above: Order Comment: Speci men Type: BLOOD SPECIMENOrdering Facility: [facility] Address: [address] [place] [address] Performed By: #### 5 7021-8 ####[facility]ITALJALEN [id number] [place] [address] [place] MCHC (RBC) [Mass/Vol] 33.6 g/dL Normal 30.5-36.0 [facility] Comment on above: Order Comment: Speci men Type: BLOOD SPECIMENOrdering Facility: [facility] Address: [address] [place] [address] Performed By: #### 5 7021-8 ####[facility]ITALNCLIA [id number] [place] [address] [place] MCV (RBC) [Entitic vol] 85.9 fL Normal 80.0-100.0 C [facility] Comment on above: Order Comment: Speci men Type: BLOOD SPECIMENOrdering Facility: [facility] Address: [address] [place] [address] Performed By: #### 5 7021-8 ####[facility] [id number] [place] [address] [place] Monocytes (Bld) [#/Vol] 0.30 10*3/uL Normal <0.87 [facility] Comment on above: Order Comment: Speci men Type: BLOOD SPECIMENOrdering Facility: [facility] Address: [address] [place] [address] Performed By: #### 5 7021-8 ####[facility] [id number] [place] [address] [place] Monocytes/100 WBC (Bld) 5.0 % Normal C [facility] Comment on above: Order Comment: Speci men Type: BLOOD SPECIMENOrdering Facility: [facility] Address: [address] [place] [address] Performed By: #### 5 7021-8 ####[facility] [id number] [place] [address] [place] Neutrophils (Bld) [#/Vol] 3.61 10*3/uL Normal 1.45-7.50 [facility] Comment on above: Order Comment: Speci men Type: BLOOD SPECIMENOrdering Facility: [facility] Address: [address] [place] [address] Performed By: #### 5 7021-8 ####[facility] [id number] [place] [address] [place] Neutrophils/100 WBC (Bld) 59.8 % Normal [facility] Comment on above: Order Comment: Speci men Type: BLOOD SPECIMENOrdering Facility: [facility] Address: [address] [place] [address] Performed By: #### 5 7021-8 ####[facility]ITALNCLIA [id number] [place] [address] [place] Nucleated RBC (Bld) [#/Vol] 10*3/uL Normal <0.01 [facility] Comment on above: Order Comment: Speci men Type: BLOOD SPECIMENOrdering Facility: [facility] Address: [address] [place] [address] Performed By: #### 5 7021-8 ####[facility]OSPITALNCA [id number] [place] [address] [place] Nucleated RBC/100 WBC (Bld) [Ratio] 0.0 /100 WBC Normal [facility] Comment on above: Order Comment: Speci men Type: BLOOD SPECIMENOrdering Facility: [facility] Address: [address] [place] [address] Performed By: #### 5 7021-8 ####[facility]ITALL[facility] [id number] [place] [address] [place] Platelet mean volume (Bld) [Entitic vol] 9.0 fL Normal 9.0-12.7 [facility] Comment on above: Order Comment: Speci men Type: BLOOD SPECIMENOrdering Facility: [facility] Address: [address] [place] [address] Performed By: #### 5 7021-8 ####[facility]ITALL[facility] [id number] [place] [address] [place] Platelets (Bld) [#/Vol] 288 10*3/uL Normal 150-400 [facility] Comment on above: Order Comment: Speci men Type: BLOOD SPECIMENOrdering Facility: [facility] Address: [address] [place] [address] Performed By: #### 5 7021-8 ####[facility] [id number] [place] [address] [place] RBC (Bld) [#/Vol] 4.54 10*6/uL Normal 3.90-5.20 [facility] Comment on above: Order Comment: Speci men Type: BLOOD SPECIMENOrdering Facility: [facility] Address: [address] [place] [address] Performed By: #### 5 7021-8 ####[facility]ITALNCLIA [id number] [place] [address] [place] WBC (Bld) [#/Vol] 6.03 10*3/uL Normal 3.70-11.00 [facility] Comment on above: Order Comment: Speci men Type: BLOOD SPECIMENOrdering Facility: [facility] Address: [address] [place] [address] Performed By: #### 5 7021-8 ####[facility]ITALNCLISharyn [id number] [place] [address] [place] [facility] [place] Comprehensive metabolic 2000 panelon 01-20-2024 Albumin [Mass/Vol] 4.4 g/dL Normal 3.9-4.9 [facility] Comment on above: Order Comment: Speci men Type: BLOOD SPECIMENOrdering Facility: [facility] Address: [address] [place] [address] Performed By: #### 2 4323-8 ####[facility]MANWNCL[facility] [id number] [place] [address] [place] ALP [Catalytic activity/Vol] 73 U/L Normal 34-123 [facility] Comment on above: Order Comment: Speci men Type: BLOOD SPECIMENOrdering Facility: [facility] Address: [address] [place], [place] [address] Performed By: #### 2 4323-8 ####[facility]MANWNCL[facility] [id number] [place] [address] [place] ALT [Catalytic activity/Vol] 19 U/L Normal 7-38 [facility] Comment on above: Order Comment: Speci men Type: BLOOD SPECIMENOrdering Facility: [facility] Address: [address] [place] [address] Performed By: #### 2 4323-8 ####[facility]MANWNCLIA [id number] [place] [address] [place] Anion gap [Moles/Vol] 8 mmol/L Normal 8-15 [facility] Comment on above: Order Comment: Speci men Type: BLOOD SPECIMENOrdering Facility: [facility] Address: [address] [place] [address] Performed By: #### 2 4323-8 ####[facility]ITALLIA [id number] [place] [address] [place] AST [Catalytic activity/Vol] 21 U/L Normal 13-35 [facility] Comment on above: Order Comment: Speci men Type: BLOOD SPECIMENOrdering Facility: [facility] Address: [address] [place] [address] Performed By: #### 2 4323-8 ####[facility]ITALNCLIA [id number] [place] [address] [place] Bilirubin [Mass/Vol] 0.9 mg/dL Normal 0.2-1.3 [facility] Comment on above: Order Comment: Speci men Type: BLOOD SPECIMENOrdering Facility: [facility] Address: [address] [place], [place] [address] Performed By: #### 2 4323-8 ####[facility]ITALL[facility] [id number] [place] [address] [place] Calcium [Mass/Vol] 9.7 mg/dL Normal 8.5-10.2 [facility] Comment on above: Order Comment: Speci men Type: BLOOD SPECIMENOrdering Facility: [facility] Address: [address] [place] [address] Performed By: #### 2 4323-8 ####[facility]ITALNCLIA [id number] [place] [address] [place] Chloride [Moles/Vol] 105 mmol/L Normal 98-107 [facility] Comment on above: Order Comment: Speci men Type: BLOOD SPECIMENOrdering Facility: [facility] Address: [address] [place] [address] Performed By: #### 2 4323-8 ####[facility]ITALNCBEAV[facility] [id number] [place] [address] [place] CO2 [Moles/Vol] 23 mmol/L Normal 22-30 [facility] Comment on above: Order Comment: Speci men Type: BLOOD SPECIMENOrdering Facility: [facility] Address: [address] [place] [address] Performed By: #### 2 4323-8 ####[facility] HOSPITALLI [id number] [place] [address] [place] Creatinine [Mass/Vol] 0.86 mg/dL Normal 0.58-0.96 [facility] Comment on above: Order Comment: Speci men Type: BLOOD SPECIMENOrdering Facility: [facility] Address: [address] [place] [address] Performed By: #### 2 4323-8 ####[facility] [id number] [place] [address] [place] [facility] Creatinine and Glomerular filtration rate.predicted panel (S/P/Bld) 91 mL/min/1.73m??? Normal >=60 [facility] Comment on above: Order Comment: Speci men Type: BLOOD SPECIMENOrdering Facility: [facility] Address: [address] [place] [address] Result Comment: Sudha mated Glomerular Filtration Rate (eGFR) is calculated using the 2020 CKD-EPI creatinine equation. This equation utilizes serum creatinine, sex, and age as parameters. The creatinine assay has traceable calibration to isotope dilution-mass spectrometry. Refer to KDIGO guidelines for clinical interpretation. In patients with unstable renal function, e.g. those with acute kidney injury, the eGFR may not accurately reflect actual GFR. Performed By: #### 2 4323-8 ####[facility]ITALNCLIA [id number] [place] [address] [place] Glucose [Mass/Vol] 97 mg/dL Normal 74-99 [facility] Comment on above: Order Comment: Telly sams Type: BLOOD SPECIMENOrdering Facility: [facility] Address: [address] [place] [address] Result Comment: The [place] Diabetes Association (ADA) provides guidance for cutoff values for fasting glucose and random glucose. The ADA defines fasting as no caloric intake for at least 8 hours. Fasting plasma glucose results between 100 to 125 mg/dL indicate increased risk for diabetes (prediabetes). Fasting plasma glucose results greater than or equal to 126 mg/dL meet the criteria for diagnosis of diabetes. In the absence of unequivocal hyperglycemia, results should be confirmed by repeat testing. In a patient with classic symptoms of hyperglycemia or hyperglycemic crisis, random plasma glucose results greater than or equal to 200 mg/dL meet the criteria for diagnosis of diabetes. Reference: Standards of Medical Care in Diabetes 2016, [place] Diabetes Association. Diabetes Care. 2016.39(Suppl 1). Performed By: #### 2 4323-8 ####[facility]ITALLIA [id number] [place] [address] [place] Potassium [Moles/Vol] 3.8 mmol/L Normal 3.7-5.1 [facility] Comment on above: Order Comment: eTlly sams Type: BLOOD SPECIMENOrdering Facility: [facility] Address: [address] [id number] Performed By: #### 2 4323-8 ####[facility]ITALNCLIA [id number] [place] [address] [place] Protein [Mass/Vol] 7.0 g/dL Normal 6.3-8.0 [facility] Comment on above: Order Comment: Speci men Type: BLOOD SPECIMENOrdering Facility: [facility] Address: [address] [place] [address] Performed By: #### 2 4323-8 ####[facility]ALL[facility] [id number] [place] [address] [place] Sodium [Moles/Vol] 136 mmol/L Normal 136-144 [facility] Comment on above: Order Comment: Speci men Type: BLOOD SPECIMENOrdering Facility: [facility] Address: [address] [place] [address] Performed By: #### 2 4323-8 ####[facility]ITALA [id number] [place] [address] [place] Urea nitrogen [Mass/Vol] 18 mg/dL Normal 7-21 [facility] Comment on above: Order Comment: Speci men Type: BLOOD SPECIMENOrdering Facility: [facility] Address: [address] [place] [address] Performed By: #### 2 4323-8 ####[facility] [id number] [place] [address] [place] Ferritin SerPl-mCncon 2023 Ferritin [Mass/Vol] 36.3 ng/mL Normal 14.7-205.1 [facility] Comment on above: Order Comment: Speci men Type: BLOOD SPECIMENOrdering Facility: [facility] Address: [address] [place] [address] Performed By: #### 2 276-4, 40953-1, 3016-3 ####[facility] LABCLIA [id number] [place] [address] [place]#### 17042-5 ####[facility] LABCLIA [id number] [place] [address] [place] [facility] TRA[facility]MER[facility] H[facility]PITALA [id number] [place] [address] [place] Folate SerPl-mCncon 01-20-20 24 Folate [Mass/Vol] 7.3 ng/mL Normal >4.7 [facility] Comment on above: Order Comment: Telly sams Type: BLOOD SPECIMENOrdering Facility: [facility] Address: [address] [place] [address] Performed By: #### 2 132-9, 2284-8 ####[facility] LABCLIA [id number] [place] [address] [place] HbA1c (Bld)on 01-20-2024 Average glucose Estimated from glycated hemoglobin (Bld) [Mass/Vol] 103 mg/dL Normal [facility] Comment on above: Order Comment: Telly [facility] Type: BLOOD SPECIMENOrdering Facility: [facility] Address: [address] [place] [address] Result Comment: eAG: (Estimated average glucose) is a calculated value from HgbA1c and is patient services representative of the average blood glucose level in the last 2-3 month period. Performed By: #### 5 5454-3 ####[facility] LABCLIA [id number] [address] [place] HbA1c (Bld) [Mass fraction] 5.2 % Normal 4.3-5.6 [facility] Comment on above: Order Comment: Telly [facility] Type: BLOOD SPECIMENOrdering Facility: [facility] Address: [address] [place] [address] Result Comment: [place] Diabetes Association guidelines indicate that patients with HgbA1c in the range 5.7-6.4% are at increased risk for development of diabetes, and intervention by lifestyle modification may be beneficial. HgbA1c greater or equal to 6.5% is considered diagnostic of diabetes. Performed By: #### 5 5454-3 ####[facility] LABCLIA [id number] [address] [address] [place] Iron and Iron binding capaci ty panelon 01-20-2024 Iron [Mass/Vol] 71 ug/dL Normal 41-186 [facility] Comment on above: Order Comment: Speci men Type: BLOOD SPECIMENOrdering Facility: [facility] Address: [address] [place] [address] Performed By: #### 2 276-4, 73696-9, 3016-3 ####[facility] LABCLIA [id number] [place] [id number] [place]#### 78683-7 ####[facility] LABCLIA [id number] [place] [id number] [facility] [id number] [place] [address] [place] Iron binding capacity [Mass/Vol] 366 ug/dL Normal 232-386 [facility] Comment on above: Order Comment: Speci men Type: BLOOD SPECIMENOrdering Facility: [facility] Address: [address] [place] [address] Performed By: #### 2 276-4, 31346-5, 3016-3 ####[facility] LABCLIA [id number] [place] [phone] [place]#### 07225-3 ####[facility] LABCLIA [id number] [place] [id number] [place] [facility] [id number] [place] [address] [place] Iron/TIBC [Molar ratio] 19.4 % Normal 15.0-57.0 C [facility] Comment on above: Order Comment: Speci men Type: BLOOD SPECIMENOrdering Facility: [facility] Address: [address] [place] [address] Performed By: #### 2 276-4, 78150-6, 3015-3 ####[facility] LABCLIA [id number] [place] [address] [place]#### 80733-9 ####[facility] LABCLIA [id number] [place] [address] [place] [facility] [id number] [place] [address] [place] Lipid 1996 panelon 4 Cholesterol [Mass/Vol] 162 mg/dL Normal <200 [facility] Comment on above: Order Comment: Speci men Type: BLOOD SPECIMENOrdering Facility: [facility] Address: [address] [place] [address] Result Comment: <200 mg/dL, Desirable 200-239 mg/dL, Borderline high >239 mg/dL, High Performed By: #### 2 276-4, 10483-2, 3 ####[facility] LABCLIA [id number] [place] [address] [place]#### 50388-4 ####[facility] LABCLIA [id number] [place] [address] [place] [facility] [id number] [place] [address] [place] Cholesterol in HDL [Mass/Vol] 60 mg/dL Normal >39 [facility] Comment on above: Order Comment: Speci men Type: BLOOD SPECIMENOrdering Facility: [facility] Address: [address] [place] [address] Result Comment: 40-5 9 mg/dL, Acceptable >59 mg/dL, High: Negative risk factor for coronary heart disease <40 mg/dL, Low: Positive risk factor for coronary heart disease Performed By: #### 2 276-4, 37249-3, 3015-3 ####[facility] LABCLIA [id number] [place] [address] [place]#### 73800-2 ####[facility] LABIA [id number] [address] [id number] [place] [address] [place] Cholesterol in LDL [Mass/Vol] 93 mg/dL Normal <100 [facility] Comment on above: Order Comment: Speci men Type: BLOOD SPECIMENOrdering Facility: [facility] Address: [address] [place] [address] Result Comment: <100 mg/dL, Optimal 100-129 mg/dL, Near optimal/above optimal 130-159 mg/dL, Borderline high 160-189 mg/dL, High >189 mg/dL, Very high Secondary prevention optimal LDL Cholesterol levels are recommended to be < 70 mg/dL Performed By: #### 2 276-4, 57987-5, 3016-3 ####[facility] LABCLIA [id number] [place] [address] [place]#### 30503-5 ####[facility] LABIA [id number] [address] [id number] [place] [address] [place] Cholesterol in LDL/Cholesterol in HDL [Mass ratio] 1.55 {ratio} Normal <2.54 [facility] Comment on above: Order Comment: Speci men Type: BLOOD SPECIMENOrdering Facility: [facility] Address: [address] [place] [address] Result Comment: Gumaro sierra: 1. National Cholesterol Education Program ATP III Guideline At-A-Glance Quick Desk Reference: National Heart, Lung, and Blood [place]. National Institutes of Health. 2001: NIH Publication No. 01-3305. 2. An International Atherosclerosis Society position paper: global recommendations for the management of dyslipidemia: executive summary, Atherosclerosis. 2014: 232(2):410-413. Performed By: #### 2 276-4, 89274-0, 6-3 ####[facility] LABCLIA [id number] [place] [address] [place]#### 55433-0 ####[facility] LABCLIA [id number] [place] [id number] [facility] [id number] [place] [address] [place] Cholesterol in VLDL [Mass/Vol] 9 mg/dL Normal <30 [facility] Comment on above: Order Comment: Speci men Type: BLOOD SPECIMENOrdering Facility: [facility] Address: [address] [place] [address] Performed By: #### 2 276-4, 97729-0, 3 ####[facility] LABCLIA [id number] [place] [address] [place]#### 41491-0 ####[facility] LABCLIA [id number] [id number] [place] [address] [place] Cholesterol non HDL [Mass/Vol] 102 mg/dL Normal <130 [facility] Comment on above: Order Comment: Speci men Type: BLOOD SPECIMENOrdering Facility: [facility] Address: [address] [place] [address] Result Comment: <130 mg/dL, Optimal 130-159 mg/dL, Near optimal/above optimal 160-189 mg/dL, Borderline high 190-219 mg/dL, High >219 mg/dL, Very high Secondary prevention optimal non HDL Cholesterol levels are recommended to be <100 mg/dL Performed By: #### 2 276-4, 61784-5, 3015-3 ####[facility] LABCLIA [id number] [place] [id number] [place]#### 84619-2 ####[facility] LABCLIA [id number] [place] [phone] [facility] [id number] [place] [address] [place] Cholesterol.total/Jada sterol in HDL [Mass ratio] 2.70 {ratio} Normal <5.10 [facility] Comment on above: Order Comment: Speci men Type: BLOOD SPECIMENOrdering Facility: [facility] Address: [address] [place] [address] Performed By: #### 2 276-4, 24200-2, 6-3 ####[facility] LABCLIA [id number] [place] [address] [place]#### 33547-8 ####[facility] LABCLIA [id number] [place] [phone] [place] [facility] [id number] [place] [address] [place] FASTING TIME 12 hrs Normal [facility] Comment on above: Order Comment: Speci men Type: BLOOD SPECIMENOrdering Facility: [facility] Address: [address] [place] [address] Performed By: #### 2 276-4, 75371-0, 3016-3 ####[facility] LABCLIA [id number] [place] [id number] [place]#### 61854-3 ####[facility] LABCLIA [id number] [address] [address] [place] [facility] [id number] [place] [address] [place] Triglyceride [Mass/Vol] 45 mg/dL Normal <150 C [facility] Comment on above: Order Comment: Speci flaquita Type: BLOOD SPECIMENOrdering Facility: [facility] Address: [address] [place] [address] Result Comment: <150 mg/dL, Normal 150-199 mg/dL, Borderline high 200-499 mg/dL, High >499 mg/dL, Very high Performed By: #### 2 276-4, 19245-0, 3016-3 ####[facility] LABCLIA [id number] [address]#### 68391-3 ####[facility] LABIA [id number] [address] [id number] [address] [place] [facility] 01-20-2024 TSH Qn 1.960 m[IU]/L Normal 0.270-4.200 [facility] Comment on above: Order Comment: Angelai flaquita Type: BLOOD SPECIMENOrdering Facility: [facility] Address: [address] [place] [address] Result Comment: If t he patient is , TSH reference range varies by gestational period: First Trimester (weeks 9-12): 0.180-2.990 mIU/L Second Trimester: 0.110-3.980 mIU/L Third Trimester: 0.480-4.710 mIU/L Luis F Araya et al. A Practical Approach for the Verifications and Determination of Site- and Trimester-Specific Reference Intervals for Thyroid Function tests in . Thyroid, 2019:29:3:412-420. Yoan E, et al. 2017 Guidelines of the [place] Thyroid Association for the Diagnosis and Management of Thyroid Disease during and the . Thyroid, 2017:27:3:315-389. Performed By: #### 2 276-4, 65111-2, 6-3 ####[facility] LABCLIA [id number] [address] [address] [place]#### 30320-6 ####[facility] LABIA [id number] [place] [phone] [place] [facility] [id number] [place] [address] [place] VITAMIN B1 (THIAMINE), WHOLE BLOODon 01-20-2024 Thiamine (Bld) [Moles/Vol] 156.6 nmol/L Normal 84.3-213.3 [facility] Comment on above: Order Comment: Speci men Type: BLOOD SPECIMENOrdering Facility: [facility] Address: [address] [place] [address] Result Comment: This assay measures the concentration of thiamine diphosphate (TDP), the primary active form of vitamin B1. Approximately 90 percent of vitamin B1 present in whole blood is TDP. Thiamine and thiamine monophosphate, which comprise the remaining 10 percent, are not measured. This test was developed, and its performance characteristics determined by the [facility] Department of Pathology and Laboratory Medicine. It has not been cleared or approved by the FDA. The [facility] Department of Pathology and Laboratory Medicine is regulated under CLIA as qualified to perform high-complexity testing. This test is used for clinical purposes. It should not be regarded as investigational or for research. Performed By: #### B 1WB ####[facility] LABIA [id number] [place] [id number] [place] Vit B12 SerPl-mCncon 024 Cobalamin (Vitamin B12) [Mass/Vol] 911 pg/mL Normal 232-1245 [facility] Comment on above: Order Comment: Speci men Type: BLOOD SPECIMENOrdering Facility: [facility] Address: [address] [place] [id number] Performed By: #### 2 132-9, 2284-8 ####[facility] LABIA [id number] [place] [id number] [place] US THYROID/PARATHYROIDon US THYROID/PARATHYROID * * *Final Report * * * DATE OF EXAM: Dec 19 2023 9:37[facility] 1048 - US THYROID/PARATHYROID / PROCEDURE REASON: Thyroid nodule * * * * Physician Interpretation * * * * EXAMINATION: THYROID ULTRASOUND CLINICAL HISTORY: Thyroid nodule . Follow-up thyroid nodules TECHNIQUE: Sonography and Doppler imaging of the thyroid was performed. Images were obtained and stored in a permanent archive. MQ: UST_1 COMPARISON: Ultrasound from 11/22/2022 RESULT: . The right thyroid lobe measures 6.1 x 1.8 x 2.5 cm. The left thyroid lobe measures 5.9 x 1.9 x 1.8 cm. The thyroid isthmus measures 4 mm in thickness. Parenchyma: The parenchyma is diffusely heterogeneous and mildly hyperemic. NODULES: Most suspicious nodules (up to 4) detailed below: Nodule #1 Location: Right lower pole Size: 8 x 9 x 6 mm ; similar to the prior. Characteristics: Composition: Solid or almost completely solid, 2 points Echogenicity: Hypoechoic, 2 points Shape: Deidd-jenn-zcsc, 0 points Margin: Smooth, 0 points Echogenic foci: None, 0 points TI-RADS Category: 4 ACR Recommendation: No FNA or follow-up imaging is advised. Nodule #2 Location: Right lower pole Size: 1.4 x 1.1 x 1 cm ; similar to the prior. Characteristics: Composition: Solid or almost completely solid, 2 points Echogenicity: Hypoechoic, 2 points Shape: Mjiwy-ogol-fyup, 0 points Margin: Smooth, 0 points Echogenic foci: Peripheral (rim) calcification (complete or incomplete), 2 points TI-RADS Category: 4 ACR Recommendation: Follow up imaging in 1, 2, 3 and 5 years is advised. - IMPRESSION: Thyroid nodules appear similar to the prior study. Continued ultrasound surveillance is recommended. Thyroid parenchymal heterogeneity and hyperemia again seen. ACR Recommendation: TI-RADS 4 nodule between 1.0 and 1.5 cm in size. Follow up imaging in 1, 2, 3 and 5 years is advised. ACR recommendations are strictly based on the size and imaging appearance at the time of the exam and do not consider stability or previous biopsy results. Mechanic Sound Technician: TOM Transcribe Date/Time: Dec 22 2023 6:30A Dictated by : MARTHA LEON MD This examination was interpreted and the report reviewed and electronically signed by: MARTHA LEON MD on Dec 22 2023 6:32AM EST [id number] Normal [facility] CNOVon 11-21-2023 [facility] MARY BURRELL ([id number]) 1990 F Date Time Provider Department 11/21/23 1:20 PM [facility] During your visit today, we recorded the following information about you: Pulse Blood pressure Weight 97/minute 110/72 93.4 kg Kiera Carson APRN.[facility] 11/21/2023 2:04 PM Signed This is a 33 year old female who presents today with: Patient presents with: Physical HISTORY OF PRESENT ILLNESS: Mary A Indra is a 33 year old female. Patient presents with: Physical Fungal rash in groin- apron Off levothyroxine Migraines bad. Last 1- 1.5 days. + Light sensitive. Auras. Nausea. Sound sensitive. Doesn't sleep well. 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 Creatinine, Bulk, 100 % powd 1,500 mg once daily. Phentermine HCl 37.5 mg tablet Take 1 tablet by mouth once daily for 90 days. vitamin A (AQUASOL A) 10,000 unit capsule Take 10,000 Units by mouth once daily. ferrous sulfate (IRON) 325 mg (65 mg iron) tablet Take 325 mg by mouth once daily. Cyanocobalamin 2,500 mcg subl Take 1 tablet by mouth once daily. Cholecalciferol, Vitamin D3, (VITAMIN D-3) 50 mcg (2,000 unit) cap Take 1 capsule by mouth once daily. calcium carbonate (CALCIUM 600 ORAL) Take 3 tablets by mouth once daily. (1800 daily) levothyroxine (SYNTHROID) 100 mcg tablet Take 1 tablet by mouth daily before breakfast. (Patient not taking: Reported on 08/15/2023) No current facility-administered medications for this visit. FAMILY HISTORY Problem Relation Age of Onset Obesity Mother Diabetes Mother Heart Mother Hypertension Mother Blood Disease Father Arthritis Father Obesity Father Cancer Maternal Grandmother lung and liver Kidney Disease Maternal Grandfather Emphysema Paternal Grandmother Diabetes Maternal Uncle Coronary Artery Disease Maternal Uncle Collin Disease Paternal Aunt Collin Disease Paternal cousin Social History Tobacco Use Smoking status: Former Years: .5 Types: Cigarettes Quit date: 11/23/2006 Years since quittin.0 Smokeless tobacco: Never Vaping Use Vaping Use: Never used Substance Use Topics Alcohol use: Not Currently Comment: stopped 08/19/2017 Drug use: No REVIEW OF SYSTEMS GENERAL: + weight loss, + malaise, no fevers/chills HEENT: Positive for frequent or significant headaches, No changes in hearing or vision. NECK: Negative for lumps, goiter, pain and significant neck swelling RESPIRATORY: Negative for cough, hemoptysis, wheezing, dyspnea or shortness of breath CARDIOVASCULAR: Negative for chest pain, some leg swelling, no orthopnea, some palpitations GI: Both nausea and vomiting- She attributes to bariatric surgery, always diarrhea since gall bladder surgery/ no constipation. No hematochezia/melena. No heartburn or reflux symptoms. : No history of dysuria, frequency or incontinence MUSCULOSKELETAL: + joint pain, no swelling. SKIN: Negative for lesions, apron rash, + itching ENDOCRINE: Both cold and heat intolerance, no polyuria, polydipsia and goiter NEURO: No history of syncope, paralysis, seizures or tremors MOOD: Both for depression, more anxiety, denies suicidal ideation. EXAM: BP 110/72 Pulse 97 Wt 93.4 kg (206 lb) LMP 08/28/2020 (Exact Date) SpO2 99% BMI 32.26 kg/m? PHYSICAL EXAM: Physical Exam Vitals reviewed. Constitutional: Appearance: She is obese. HENT: Head: Normocephalic. Cardiovascular: Rate and Rhythm: Normal rate and regular rhythm. Pulses: Normal pulses. Heart sounds: Normal heart sounds. Pulmonary: Effort: Pulmonary effort is normal. Breath sounds: Normal breath sounds. Abdominal: Palpations: Abdomen is soft. Musculoskeletal: Cervical back: Neck supple. Skin: General: Skin is warm and dry. Comments: Abdominal apron tinea Neurological: Mental Status: She is alert and oriented to person, place, and time. Psychiatric: Com (more content not included)... Normal [facility] T3 FREE [facility] 08-15-2023 Free T3 [Mass/Vol] 3.1 pg/mL 2.3 - 4.1 pg/mL [facility] T4 FREE/FREE THYROXon 2023 Free T4 [Mass/Vol] 1.2 ng/dL 0.9 - 1.7 ng/dL [facility] TSH [facility] 08-15-2023 TSH Qn 2.140 m[IU]/L 0.270 - 4.200 mIU/L [facility] Absolute lymphocyte countOrd ered By: Aj Carmichael on 06-21-2023 Lymphocytes Auto (Unsp spec) [#/Vol] 1.93 10*3/uL 0.83-4.51 [facility] Automated lymphocyte count a s percentage of total leukocytesOrdered By: Aj Carmichael on 06-21-2023 Lymphocytes/100 WBC Auto (Unsp spec) 43.1 % 19-41 [facility] Basophil percentageOrdered B y: Aj Carmichael on 06-21-2023 Basophils/100 WBC (Bld) 0.2 % 0-1 W [facility] Bilirubin [Mass/Vol] 1.00 mg/dL 0.20-1.00 [facility] Comment on above: For patients on eltr ombopag therapy, use of Dimension [place] TBIL is not recommended. Chloride [Moles/Vol] 109 mmol/L 98-107 [facility] Eosinophils/100 WBC (Bld) 3.3 % 0-5 [facility] Glucose [Mass/Vol] 88 mg/dL 74-106 [facility] Hemoglobin (Bld) [Mass/Vol] 13.4 g/dL 12.0-15.0 [facility] Monocytes/100 WBC (Bld) 5.8 % 0-10 W [facility] Neutrophils (Bld) [#/Vol] 2.1 10*3/uL 2.0-7.7 [facility] Neutrophils/100 WBC (Bld) 47.6 % 47-70 [facility] Potassium [Moles/Vol] 4.2 mmol/L 3.5-5.1 [facility] Protein [Mass/Vol] 7.0 g/dL 6.4-8.2 [facility] Sodium [Moles/Vol] 142 mmol/L 136-145 [facility] WBC (Bld) [#/Vol] 4.5 10*3/uL 4.4-11.0 [facility] Determination of erythrocyte mean corpuscular volume (MCV)Ordered By: Aj Carmichael on 06-21-2023 MCV (RBC) [Entitic vol] 89.7 fL 81-99 [facility] Erythrocyte distribution wid th ratioOrdered By: Aj Carmichael on 06-21-2023 Erythrocyte distribution width (RBC) [Ratio] 13.0 % 11.6-14.6 [facility] Erythrocyte distribution wid th standard deviationOrdered By: Aj Carmichael on 06-21-2023 Erythrocyte distribution width (RBC) [Entitic vol] 42.7 fL 35.1-43.9 [facility] Hematocrit Auto (Bld) [Volum e fraction]Ordered By: Aj Carmichael on 06-21-2023 Hematocrit (Bld) [Volume fraction] 41.6 % 37-47 [facility] Immature granulocytes/100 WB C Auto (Bld)Ordered By: Aj Carmichael on 06-21-2023 Immature granulocytes/100 WBC (Bld) 0.000 % 0.0-0.9 [facility] Comment on above: IG% - Immature Granu locytes (promyelocytes, myelocytes and metamyelocytes) > 1% indicates that a LEFT SHIFT is Present. Iron measurement (mass/mass) Ordered By: Aj Carmichael on 06-21-2023 Iron (Unsp spec) [Mass/Mass] 76 ug/dL 50-170 [facility] Laboratory - Chemistry and C hemistry - challengeOrdered By: Aj Carmichael on 06-21-2023 Albumin/Globulin [Mass ratio] 1.1 {ratio} 0.9-2.4 [facility] ALP [Catalytic activity/Vol] 72 U/L 45-117 [facility] ALT [Catalytic activity/Vol] 37 U/L 13-56 [facility] CO2 [Moles/Vol] 28.0 mmol/L 21.0-32.0 [facility] Cobalamin (Vitamin B12) [Mass/Vol] 409 pg/mL 211-911 [facility] Ferritin [Mass/Vol] 17 ng/mL 8-252 [facility] Globulin (S) [Mass/Vol] 3.4 g/dL 2.2-4.2 [facility] Magnesium [Mass/Vol] 2.4 mg/dL 1.6-2.6 [facility] Urea nitrogen/Creatinine [Mass ratio] 24.5 mg/mg 10-20 [facility] - Hematology and Cell countsOrdered By: Aj Carmichael on 06-21-2023 MCH (RBC) [Entitic mass] 28.9 pg 27.0-32.0 [facility] MCHC (RBC) [Mass/Vol] 32.2 g/dL 32-36 [facility] Nucleated RBC/100 WBC (Bld) [Ratio] 0 % 0-5 [facility] Platelet mean volume (Bld) [Entitic vol] 9.4 fL 6.2-12.0 [facility] Platelets (Bld) [#/Vol] 246 10*3/uL 150-450 [facility] No Panel InformationOrdered By: Aj Carmichael on 06-21-2023 Estimated GFR (MDRD) Amer 109 mL/min >60 [facility] Comment on above: GFR Calc Estimated GFR (MDRD) Non-Af Amer 90 mL/min >60 [facility] Comment on above: Non- GFR Calc Vitamin D 25-Hydroxy 45.8 ng/mL [facility] Comment on above: Vitamin D 25(OH) Sta tus Range Deficiency <20 ng/mL (50nmol/L) Insufficiency 20 - 30 ng/mL (50 - 75 nmol/L) Sufficiency 30 - 100 ng/mL (75 - 250 nmol/L) Toxicity >100 ng/mL (>250 nmol/L) RBC Auto (Bld) [#/Vol]Ordere d By: Aj Carmichael on 06-21-2023 RBC (Bld) [#/Vol] 4.64 10*6/uL 4.2-5.4 [facility] Serum or plasma calcium jose urement (mass/volume)Ordered By: Aj Carmichael on 06-21-2023 Calcium [Mass/Vol] 9.0 mg/dL 8.5-10.1 [facility] Serum or plasma creatinine m easurement (mass/volume)Ordered By: Aj Carmichael on 06-21-2023 Creatinine [Mass/Vol] 0.78 mg/dL 0.55-1.02 [facility] Comment on above: The validity of the calculated GFR & GFRAA in patients over 70 years has not been determined. Clinical correlation is essential. Serum or plasma thyroid stim ulating hormone (TSH) measurement (units/volume)Ordered By: Aj Carmichael on 06-21-2023 TSH Qn 1.41 uIU/mL 0.358-3.74 [facility] Serum or plasma urea nitroge n measurement (mass/volume)Ordered By: Aj Carmichael on 06-21-2023 Urea nitrogen [Mass/Vol] 19 mg/dL 7-18 [facility] [facility] Thin prep Papanicolaou smear with manual screeningOrdered By: Aj Carmichael on 06-21-2023 Thin prep Papanicolaou smear with manual screening 3.6 g/dL 3.2-5.0 [facility] Thin prep Papanicolaou smear with manual screening 21 U/L 15-37 [facility] Thin prep Papanicolaou smear with manual screening 5 5-15 [facility] Thin prep Papanicolaou smear with manual screening 1.04 ng/dL 0.76-1.46 [facility] No Panel InformationOrdered By: Felice Centeno on 03-09-2023 Parathyroid Hormone (Intact) 80.0 pg/mL 18.4-80.1 [facility] Serum or plasma calcium jose urement (mass/volume)Ordered By: Felice Centeno on 03-09-2023 Calcium [Mass/Vol] 9.4 mg/dL 8.5-10.1 [facility] US THYROID/PARATHYROIDon [facility] XR Abdomen Supine and Uprigh ton 09-24-2022 IMPRESSION: Unremarkable abdomen x-ray. Mechanic Sound Technician: TOM Transcribe Date/Time: Sep 24 2022 12:54P Dictated by : DENAE ARCE MD This examination was interpreted and the report reviewed and electronically signed by: DENAE ARCE MD on Sep 24 2022 12:56PM [facility] DIVISION OF RADIOLOGY * * *Final Report* * * DATE OF EXAM: Sep 21 2022 1:54PM WOX [id number] - XR ABDOMEN 1V SUPINE / PROCEDURE REASON: multiple diagnoses * * * * Physician Interpretation * * * * EXAM TITLE: XR ABDOMEN 1V SUPINE EXAM DATE/TIME: 09/21/2022 1:54 PM COMPARISON: None. CLINICAL INDICATION/HISTORY: Right flank pain. TECHNIQUE: AP views of the abdomen are presented. FINDINGS: No abnormally dilated bowel loops identified. No abnormal radiopaque opacities projecting over the kidneys. There are suture lines in the left upper and mid abdomen. Tiny phleboliths noted in the left pelvis. The bony structures appear intact. DIVISION OF RADIOLOGY Provider, [facility] - 09/24/2022 * * *Final Report* * * DATE OF EXAM: Sep 21 2022 1:54PM WOX [id number] - XR ABDOMEN 1V SUPINE / PROCEDURE REASON: multiple diagnoses * * * * Physician Interpretation * * * * EXAM TITLE: XR ABDOMEN 1V SUPINE EXAM DATE/TIME: 09/21/2022 1:54 PM COMPARISON: None. CLINICAL INDICATION/HISTORY: Right flank pain. TECHNIQUE: AP views of the abdomen are presented. FINDINGS: No abnormally dilated bowel loops identified. No abnormal radiopaque opacities projecting over the kidneys. There are suture lines in the left upper and mid abdomen. Tiny phleboliths noted in the left pelvis. The bony structures appear intact. IMPRESSION IMPRESSION: Unremarkable abdomen x-ray. Mechanic Sound Technician: TOM Transcribe Date/Time: Sep 24 2022 12:54P Dictated by : DENAE ARCE MD This examination was interpreted and the report reviewed and electronically signed by: DENAE ARCE MD on Sep 24 2022 12:56PM EST [facility] XR Abdomen Supine and Uprigh tOrdered By: [facility] Provider on 09-24-2022 [facility] CBC W Auto Differential pane l (Bld)on 09-21-2022 Basophils (Bld) [#/Vol] <0.11 k/uL [facility] Basophils/100 WBC (Bld) 0.3 % [facility] Differential cell count method Nom (Bld) Auto [facility] Eosinophils (Bld) [#/Vol] 0.08 10*3/uL <0.46 k/uL [facility] Eosinophils/100 WBC (Bld) 1.1 % [facility] Erythrocyte distribution width (RBC) [Ratio] 13.4 % 11.5 - 15.0 % [facility] Hematocrit (Bld) [Volume fraction] 41.8 % 36.0 - 46.0 % [facility] Hemoglobin (Bld) [Mass/Vol] 13.3 g/dL 11.5 - 15.5 g/dL [facility] Immature granulocytes (Bld) [#/Vol] <0.10 k/uL [facility] Immature granulocytes/100 WBC (Bld) 0.1 % [facility] Lymphocytes (Bld) [#/Vol] 2.22 10*3/uL 1.00 - 4.00 k/uL [facility] Lymphocytes/100 WBC (Bld) 30.5 % [facility] MCH (RBC) [Entitic mass] 28.7 pg 26.0 - 34.0 pg [facility] MCHC (RBC) [Mass/Vol] 31.8 g/dL 30.5 - 36.0 g/dL [facility] MCV (RBC) [Entitic vol] 90.1 fL 80.0 - 100.0 fL [facility] Monocytes (Bld) [#/Vol] 0.28 10*3/uL <0.87 k/uL [facility] Monocytes/100 WBC (Bld) 3.8 % [facility] [#/Vol] 4.68 10*3/uL 1.45 - 7.50 k/uL [facility] Neutrophils/100 WBC (Bld) 64.2 % [facility] Nucleated RBC (Bld) [#/Vol] <0.01 k/uL [facility] Nucleated RBC/100 WBC (Bld) [Ratio] 0.0 /100 WBC [facility] Platelet mean volume (Bld) [Entitic vol] 10.2 fL 9.0 - 12.7 fL [facility] Platelets (Bld) [#/Vol] 270 10*3/uL 150 - 400 k/uL [facility] RBC (Bld) [#/Vol] 4.64 10*6/uL 3.90 - 5.2 0 m/uL [facility] WBC (Bld) [#/Vol] 7.29 10*3/uL 3.70 - 11.00 k/uL [facility] XR Abdomen Supine and Uprigh ton 09-21-2022 Radiology Study observation (narrative) [facility] Absolute lymphocyte countOrd ered By: Dr. Smalls on 09-20-2022 Lymphocytes Auto (Unsp spec) [#/Vol] 2.36 10*3/uL 0.83-4.51 [facility] Basophil percentageOrdered B y: Dr. Smalls on 09-20-2022 Basophils/100 WBC (Bld) 0.3 % 0-1 [facility] Bilirubin [Mass/Vol] 0.70 mg/dL 0.20-1.00 [facility] Comment on above: For patients on eltr ombopag therapy, use of Dimension [place] TBIL is not recommended. Chloride [Moles/Vol] 104 mmol/L 98-107 [facility] Eosinophils/100 WBC (Bld) 1.3 % 0-5 [facility] Glucose [Mass/Vol] 93 mg/dL 74-106 [facility] Neutrophils (Bld) [#/Vol] 4.0 10*3/uL 2.0-7.7 [facility] Neutrophils/100 WBC (Bld) 59.0 % 47-70 [facility] Potassium [Moles/Vol] 4.1 mmol/L 3.5-5.1 [facility] Protein [Mass/Vol] 7.2 g/dL 6.4-8.2 [facility] Sodium [Moles/Vol] 139 mmol/L 136-145 [facility] WBC (Bld) [#/Vol] 6.8 10*3/uL 4.4-11.0 [facility] Basophil percentage 0 SEEN /hpf 0-5 [facility] Bilirubin Test strip Ql (U)O rdered By: Dr. Smalls on 09-20-2022 Bilirubin Ql (U) Negative Negative [facility] Blood erythrocytes count (nu mber/volume)Ordered By: Dr. Smalls on 09-20-2022 RBC (Bld) [#/Vol] 4.69 10*6/uL 4.2-5.4 [facility] Blood hemoglobin measurement (mass/volume)Ordered By: Dr. Smalls on 09-20-2022 Hemoglobin (Bld) [Mass/Vol] 13.3 g/dL 12.0-15.0 [facility] Blood lymphocytes/100 leukoc ytesOrdered By: Dr. Smalls on 09-20-2022 Lymphocytes/100 WBC (Bld) 34.9 % 19-41 [facility] Blood monocytes/100 leukocyt esOrdered By: Dr. Smalls on 09-20-2022 Monocytes/100 WBC (Bld) 4.4 % 0-10 [facility] Blood platelet mean volumeOr dered By: Dr. Smalls on 09-20-2022 Platelet mean volume (Bld) [Entitic vol] 9.7 fL 6.2-12.0 [facility] Determination of erythrocyte mean corpuscular volume (MCV)Ordered By: Dr. Smalls on 09-20-2022 MCV (RBC) [Entitic vol] 88.1 fL 81-99 [facility] Hematocrit Auto (Bld) [Volum e fraction]Ordered By: Dr. Smalls on 09-20-2022 Hematocrit (Bld) [Volume fraction] 41.3 % 37-47 [facility] Ketones Test strip Ql (U)Ord ered By: Dr. Smalls on 09-20-2022 Ketones Ql (U) 50 mg/dl Negative [facility] Laboratory - Chemistry and C hemistry - challengeOrdered By: Dr. Smalls on 09-20-2022 ALP [Catalytic activity/Vol] 80 U/L 45-117 [facility] ALT [Catalytic activity/Vol] 31 U/L 13-56 [facility] CO2 [Moles/Vol] 27.0 mmol/L 21.0-32.0 [facility] Globulin (S) [Mass/Vol] 3.8 g/dL 2.2-4.2 [facility] Urea nitrogen/Creatinine [Mass ratio] 27.8 mg/mg 10-20 [facility] - Hematology and Cell countsOrdered By: Dr. Smalls on 09-20-2022 Erythrocyte distribution width (RBC) [Entitic vol] 42.9 fL 35.1-43.9 [facility] Erythrocyte distribution width (RBC) [Ratio] 13.2 % 11.6-14.6 [facility] Immature granulocytes/100 WBC (Bld) 0.100 % 0.0-0.9 [facility] Comment on above: IG% - Immature Granu locytes (promyelocytes, myelocytes and metamyelocytes) > 1% indicates that a LEFT SHIFT is Present. MCH (RBC) [Entitic mass] 28.4 pg 27.0-32.0 [facility] Nucleated RBC/100 WBC (Bld) [Ratio] 0 % 0-5 [facility] MCHC Auto (RBC) [Mass/Vol]Or dered By: Dr. Smalls on 09-20-2022 MCHC (RBC) [Mass/Vol] 32.2 g/dL 32-36 [facility] Mucus LM Ql (Urine sed)Order ed By: Dr. Smalls on 09-20-2022 Mucus Ql (Urine sed) 0 SEEN /hpf [facility] Nitrite Test strip Ql (U)Ord ered By: Dr. Smalls on 09-20-2022 Nitrite Ql (U) Negative Negative [facility] No Panel InformationOrdered By: Dr. Smalls on 09-20-2022 Estimated Creatinine Clearance Calc 102.39 ml/min [facility] Estimated GFR (MDRD) Amer 113 mL/min >60 [facility] Comment on above: GFR Calc Estimated GFR (MDRD) Non-Af Amer 94 mL/min >60 [facility] Comment on above: Non- GFR Calc Platelets bldOrdered By: Dr. Smalls on 09-20-2022 Platelets (Bld) [#/Vol] 276 10*3/uL 150-450 [facility] Protein Test strip Ql (U)Ord ered By: Dr. Smalls on 09-20-2022 Protein Ql (U) Negative Negative [facility] Serum or plasma albumin jose urement (mass/volume)Ordered By: Dr. Smalls on 09-20-2022 Albumin [Mass/Vol] 3.4 g/dL 3.2-5.0 [facility] Serum or plasma albumin/glob ulin mass ratioOrdered By: Dr. Smalls on 09-20-2022 Albumin/Globulin [Mass ratio] 0.9 {ratio} 0.9-2.4 [facility] Serum or plasma calcium jose urement (mass/volume)Ordered By: Dr. Smalls on 09-20-2022 Calcium [Mass/Vol] 9.0 mg/dL 8.5-10.1 [facility] Serum or plasma creatinine m easurement (mass/volume)Ordered By: Dr. Smalls on 09-20-2022 Creatinine [Mass/Vol] 0.76 mg/dL 0.55-1.02 [facility] Comment on above: The validity of the calculated GFR & GFRAA in patients over 70 years has not been determined. Clinical correlation is essential. Serum or plasma urea nitroge n measurement (mass/volume)Ordered By: Dr. Smalls on 09-20-2022 Urea nitrogen [Mass/Vol] 21 mg/dL 7-18 [facility] Squamous epithelial cells de tection in urine sediment by light microscopyOrdered By: Dr. Smalls on 09-20-2022 Epithelial cells.squamous LM Ql (Urine sed) 5-10 SEEN /hpf 5-10 [facility] Thin prep Papanicolaou smear with manual screeningOrdered By: Dr. Smalls on 09-20-2022 Thin prep Papanicolaou smear with manual screening 15 U/L 15-37 [facility] Thin prep Papanicolaou smear with manual screening 8 5-15 [facility] Urine blood detectionOrdered By: Dr. Smalls on 09-20-2022 RBC Ql (U) Negative Negative [facility] RBC Ql (U) 0 SEEN /hpf 0-5 [facility] Urine clarityOrdered By: Dr. Smalls on 09-20-2022 Clarity (U) Clear Clear [facility] Urine color determinationOrd ered By: Dr. Smalls on 09-20-2022 Color (U) Yellow Yellow [facility] Urine glucose detectionOrder ed By: Dr. Smalls on 09-20-2022 Glucose Ql (U) Normal mg/dl Normal [facility] Urine leukocyte esterase det ection by dipstickOrdered By: Dr. Smalls on 09-20-2022 Leukocyte esterase Test strip Ql (U) Negative Negative [facility] Urine pHOrdered By: Dr. Maribell amor on 09-20-2022 pH (U) 6.5 [pH] 5.0 - 8.0 [facility] Urine sediment bacteria coun t by microscopy (number/high power field)Ordered By: Dr. Smalls on 09-20-2022 Bacteria LM.HPF (Urine sed) [#/Area] 1 /[HPF] None Seen [facility] Urine specific gravity measu rementOrdered By: Dr. Smalls on 09-20-2022 Specific gravity (U) [Rel density] 1.015 1.002-1.030 [facility] Urobilinogen Auto test strip Ql (U)Ordered By: Dr. Smalls on 09-20-2022 Urobilinogen Ql (U) Normal mg/dl Normal [facility] No Panel Informationon 07-19 POC SARS CoV-2 Antigen Negative [facility] Comprehensive metabolic 2000 panelon 05-14-2022 Albumin [Mass/Vol] 4.1 g/dL 3.9 - 4.9 g/dL [facility] ALP [Catalytic activity/Vol] 78 U/L 34 - 123 U/L [facility] ALT [Catalytic activity/Vol] 19 U/L 7 - 38 U/L [facility] Anion gap [Moles/Vol] 9 mmol/L 9 - 18 mmol/L [facility] AST [Catalytic activity/Vol] 17 U/L 13 - 35 U/L [facility] Bilirubin [Mass/Vol] 0.9 mg/dL 0.2 - 1 .3 mg/dL [facility] Calcium [Mass/Vol] 9.4 mg/dL 8.5 - 10. 2 mg/dL [facility] Chloride [Moles/Vol] 103 mmol/L 97 - 10 5 mmol/L [facility] CO2 [Moles/Vol] 24 mmol/L 22 - 30 mmol/L [facility] Creatinine [Mass/Vol] 0.79 mg/dL 0.58 - 0.96 mg/dL [facility] Estimated Glomerular Filtration Rate 101 mL/min/1.73m >=60 mL/min/1.73 m [facility] Glucose [Mass/Vol] 81 mg/dL 74 - 99 mg/dL [facility] Potassium [Moles/Vol] 4.3 mmol/L 3.7 - 5.1 mmol/L [facility] Protein [Mass/Vol] 7.2 g/dL 6.3 - 8.0 g/dL [facility] Sodium [Moles/Vol] 136 mmol/L 136 - 144 mmol/L [facility] Urea nitrogen [Mass/Vol] 16 mg/dL 7 - 21 mg/dL [facility] HbA1c (Bld)on 05-14-2022 Average glucose Estimated from glycated hemoglobin (Bld) [Mass/Vol] 100 mg/dL [facility] HbA1c (Bld) [Mass fraction] 5.1 % 4.3 - 5.6 % [facility] Lipid 1996 panelon 3 Cholesterol [Mass/Vol] 178 mg/dL <200 mg/dL [facility] Cholesterol in HDL [Mass/Vol] 48 mg/dL >39 mg/dL [facility] Cholesterol in LDL [Mass/Vol] 118 mg/dL High <100 mg/dL [facility] Cholesterol in LDL/Cholesterol in HDL [Mass ratio] 2.46 {ratio} <2.54 [facility] Cholesterol in VLDL [Mass/Vol] 12 mg/dL <30 mg/dL [facility] Cholesterol non HDL [Mass/Vol] 130 mg/dL High <130 mg/dL [facility] Cholesterol.total/Jada sterol in HDL [Mass ratio] 3.71 {ratio} <5.10 [facility] Fasting Time 13 hrs [facility] Triglyceride [Mass/Vol] 60 mg/dL <150 mg/dL [facility] Progress Noteon 01-31-2018 Instruction Dean Authentication Interface Message Text Reason for Referral Mary Fournier and her partner Kash Burrlel were seen by myself and Kathe Van MS, LGC on 01/31/2018 at [facility] [place] office in order to discuss the results of the first part of Mary's sequential screen. Mary was referred by Dr. Julissa Connell. History At the time of the visit, Mary was 27 years old and approximately 13 weeks and 5 days, by prior established dating, into her seventh , the second with her current partner, with an expected due date of 08/03/2018. Mary had three early losses (in 2006, 2012 and 2013) and has a 9 year old son and a 7 year old daughter from a previous relationship. In addition, she and her current partner have an almost 11 month old daughter. Mary's oldest daughter has some behavioral issues; otherwise, her children are reported to be in good health, with no developmental concerns. Mary's partner reported that he has three daughters, ages 15, 17 and 18, from previous relationships; his youngest two daughters have mental health issues, but his daughters are otherwise thought to be in good health. Mary had an ultrasound evaluation on 12/18/2017 at [facility] due to bleeding and the passage of clots; the ultrasound was consistent with a 6 week 5 day gestation and an expected due date of 08/08/2018, which was similar to what was expected from last menstrual period dating of the (7 weeks 3 days gestation and an expected due date of 08/03/2017). A small region of subchorionic hemorrhage was identified. Mary had a nuchal translucency ultrasound evaluation on 01/19/2018, at 12 weeks gestation, as part of sequential screening.The nuchal translucency measurement was 1.1 mm, which was within normal limits for the gestational age. A subchorionic hemorrhage was also noted. The results of the first part of Mary's sequential screen subsequently became available and were significant for a SALVADOR-A of 0.38 MoMs. (The hCG was 1.11 MoMs.) The likelihood of Down syndrome was determined to be 1 in 520 (compared to an age-related risk of 1 in 600), and the likelihood of trisomy 18 was determined to be 1 in 8,100 (compared to an age-related risk of 1 in 2,100). The test report recommends that a blood sample for the second part of Mary's sequential screen be obtained between 02/20/2018 and 03/06/2018. Mary reported that she had carrier screening for cystic fibrosis during her first , as well as during her most recent , due to a remote family history of cystic fibrosis. The results of this carrier screening were reportedly negative. A copy of the results of Mary's most recent carrier screening for cystic fibrosis has been requested from her lab[employer]'s office. 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 Nidia Bergeron at [facility]). Mary was not sure if carrier screening for other conditions was performed at the same time as her carrier screening forcystic fibrosis. Family and Medical History Mary reported that she had labor beginning at 25 weeks gestation during her first , with tocolytics being used through 37 weeks gestation; she subsequently delivered at 40 weeks gestation. Mary also reported that she was diagnosed with pre-eclampsia after she went into labor with her last and was therefore induced at 39 weeks 4 days gestation. Mary reported that she had daily bleeding until about 3 weeks ago and since that time has had occasional spotting, especially if she does too much or is overly stressed. Mary also reported that her blood pressure as been slightly higher during this and is being monitored. In addition, she reported that she was diagnosed with hyperemesis gravidarum and has been on multiple antiemetics. Mary reported that her father has a history of recurrent DVTs and a pulmonary embolism. She believes that he was found to have an MTHFR variant and possibly factor V Leiden. She is hesitant to ask her parents for additional information about her father's test results at this point in time since they are not aware of her . Mary reported that her paternal aunt has 4 children, one of whom has high-functioning autism and one of whom has developmental delay. (Her cousin's developmental delays were apparently attributed to late diagnosis of RSV and subsequent hypoxia.) Mary also reported that her paternal grandfather's sister had 4 children with cystic fibrosis, all of whom prior to the age of 25. However, Mary reported that her carrier screening for cystic fibrosis was negative. Mary reported that her maternal grandmother was diagnosed with ovarian and cervical cancer in her 30's. There is no other known family history of cancer. The remainder of the family medical history appears to be non-contributory, with no other known family history of congenital anomalies, intellectual disability, autism spectrum disorders, chromosome abnormalities, or genetic conditions. Mary is of [place], Citizen [place] and ancestry, and her partner is of [place], [place] and [place] ancestry. There is no known Ashkenazi Zoroastrianism ancestry and no known consanguinity. Ultrasound Findings An ultrasound was not performed at today's visit. Genetic Counseling Summary The results of the first part of Mary's sequential screen were reviewed. It was explained that her test results suggest a Down syndrome risk that is slightly higher but not significantly different from her age-related risk and a trisomy 18 risk that is significantly lower than her age-related risk. It was explained that the Down syndrome and trisomy 18 risks are lower than the laboratory cut-offs and that approximately 70% of fetuses with Down syndrome and 80% of fetuses with trisomy 18 are expected to be identified by the cut-offs used with the first part of sequential screening. It was also explained that the SALVADOR-A portion of the first part of Mary's sequential screen was somewhat low, at 0.38 MoMs. Although a low SALVADOR-A can occur as a normal variation, it is factored into the likelihood of a baby having Down syndrome or trisomy 18. In addition, it was explained that a SALVADOR-A less than 0.4 MoMs has been associated with an increased chance of complications, such as growth restriction, delivery, maternal hypertension, and pre-eclampsia. It was explained that serial ultrasound monitoring of growth is usually suggested when there has been an isolated low SALVADOR-A. However, it was also explained that Mary is considered to be at increased risk for complications based upon her history of pre-eclampsia during a previous and an increased BMI (46 kg/m2 at today's visit). As a result, her lower SALVADOR-A may simply be reflective of something that is already known about Mary, i.e., that she is at increased risk for complications. It was also explained that based upon her personal history alone, ultrasound monitoring of growth every 4 weeks beginning around 24 weeks gestation, as well as weekly testing beginning at 32 weeks gestation, would likely be recommended. In terms of additional defect screening, the options of continuing on with the second part of the sequential screen, as well as maternal serum cell-free DNA screening and a comprehensive ultrasound evaluation at 18-20 weeks gestation, were discussed. It was explained that the second part of the sequential screen would include an evaluation of AFP, uE3, hCG and TEENA and that it is predicted that 90% of fetuses with Down syndrome or trisomy 18 and 80% of fetuses with an open neural tube defect will be identified when both parts of sequential screening are completed. It was also explained that maternal serum cell-free DNA screening involves evaluating chromosomal fragments normally found in the maternal circulation. Although most of these chromosomal fragments are derived from maternal cells, some are derived from placental cells. These chromosomal fragments can be isolated from a maternal blood sample and used to make predictions about the likelihood of all of the most common numerical chromosome problems, including Down syndrome, trisomy 13, trisomy 18 and sex chromosome aneuploidies. It was explained that maternal serum cell-free DNA screening is predicted to identify 99% of fetuses with Down syndrome or trisomy 13, 98% of fetuses with trisomy 18 and 95% of fetuses with monosomy X. In addition, it was explained that maternal serum cell-free DNA screening will remain an option throughout Mary's . As a separate matter, information was provided about the option of genetic carrier screening for conditions inherited in either a recessive or X-linked fashion. It was explained that in addition to carrier screening for cystic fibrosis, carrier screening for hemoglobinopathies, spinal muscular atrophy and fragile X syndrome is commonly offered to all couples during . (Carrier screening for fragile X syndrome may be especially relevant due to Mary's family history of autism and developmental delay.) In addition, the option of expanded carrier screening for up to 274 conditions was discussed. Mary's father's history of recurrent DVTs, a pulmonary embolism, and possible hereditary clotting susceptibility factors was addressed. It was suggested that Mary try to verify at some point the results of her father's thrombophilia testing and that she share information about her father's history with her healthcare providers, especially prior to any planned surgery. In addition, it was explained that she would be considered a candidate for anticoagulation based upon her history of multiple clotting risk factors, including a first degree relative with DVTs and a pulmonary embolism (who may also have a hereditary thrombophilia) and her increased BMI. In regards to Mary's maternal grandmother's history of early-onset ovarian cancer, it was explained that in some cases the occurrence of cancer is related to a hereditary susceptibility, with implications for other family members. As a result, a hereditary cancer consultation and risk assessment is an option, if so desired. Follow-up testing options discussed included: Continuing on with the second part of sequential screening Maternal serum cell-free DNA screening A comprehensive ultrasound evaluation at 18-20 weeks gestation Ultrasound monitoring of growth due to the low SALVADOR-A on the first part of sequential screening and Mary's increased BMI Weekly surveillance beginning at 32 weeks gestation due to Mary's increased BMI Obtaining a copy of Mary's previous carrier screening for cystic fibrosis Carrier screening for hemoglobinopathies, spinal muscular atrophy and fragile X syndrome, if not already done Expanded carrier screening A hereditary cancer consultation and risk assessment Information about the timing, risks, benefits and limitations of each of these options was discussed, as was information about the differences between screening and diagnostic tests. Following our discussion, Mary elected to have: The second part of sequential screening A comprehensive ultrasound at 18-20 weeks gestation Ultrasound monitoring a growth and surveillance Mary and her indicated that they plan to continue their no matter the outcome of additional testing. Follow-up Since the Down syndrome risk from the first part of Mary's sequential screen was not significantly different from her age-related risk and since the trisomy 18 risk was significantly lower than her age-related risk, Mary decided to continue on with the second part of her sequential screen rather than pursuing maternal serum cell-free DNA screening at this point in time. The optimal draw dates for this is between 02/20/2018 and 03/06/2018. A comprehensive ultrasound evaluation at 18-20 weeks gestation. (This has already been scheduled for 03/13/2018 at 1:00 pm in [facility] [place] office.) Monitor growth every 4 weeks beginning at 24 weeks gestation and initiate weekly surveillance at 32 weeks due to Pramods increased BMI and low SALVADOR-A. Initiation of 81 mg of aspirin, as planned, due to Mray history of pre-eclampsia during her last . A copy of the results of Mary prior cystic fibrosis carrier screening has been requested. Consideration of carrier screening for additional conditions, such as hemoglobinopathies, spinal muscular atrophy and fragile X syndrome, if not already done. Mary is to let us know if she is able to verify the results of her father's thrombophilia testing. Consideration of anticoagulation due to Pramods multiple clotting risk factors, including a first degree relative with recurrent DVTs and a pulmonary embolism, a possible family history of a hereditary thrombophilia, and her increased BMI. Consideration of a hereditary cancer consultation and risk assessment due to Mary's family history of early-onset ovarian cancer. If so desired, an appointment can be scheduled with [facility]'s Hereditary Cancer Program by contacting the Genetic Center at [phone]. Additional follow-up should be as clinically indicated. The total patient time of the visit was 15 minutes, of which greater than 50% of the time was spent counseling and coordinating care. Larry Raman DO Normal [facility] ED Note-Provideron 8 ED Note-Provider [facility] Pat Eduon 08-11-2017 [facility]) Patient Summary Documentson 08-11-2017 Patient Summary Documents [facility]) Blood Bank: Type AND Screeno n 03-04-2017 Antibody Screen Negative Normal [facility] Lab Report: (P) Urinalysis, Completeon 03-04-2017 Bilirubin Ql (U) Negative Invalid Interpretation Code Negative [facility] NITRITE UR Negative Invalid Interpretation Code Negative [facility] OCCULT BLOOD-UR 250 High Negative [facility] specific gravity, urine 1.005 Invalid Interpretation Code 1.002-1.030 [facility] Urine, clarity Cloudy Invalid Interpretation Code Clear [facility] Urine, color Yellow Invalid Interpretation Code Yellow [facility] Urine, glucose presence Normal mg/dl Invalid Interpretation Code Normal [facility] Urine, ketones presence 150 High Negative B [facility] Urine, leukocyte esterase presence 500 High Negative [facility] Urine, pH 7.0 [pH] Invalid Interpretation Code 5.0 - 8.0 [facility] Urine, protein 30 mg/dL High Negative [facility] UROBILI Normal mg/dl Invalid Interpretation Code Normal [facility] Lab Report: CBC-Complete Blo od Cnt No Diffon 03-04-2017 Erythrocyte distribution width Auto Ratio (RBC) 14.9 % High 11.6-14.6 [facility] Erythrocytes (RBC) 4.70 10*6/uL Invalid Interpretation Code 4.2-5.4 [facility] Hematocrit (HCT) 39.4 % Invalid Interpretation Code 37-47 [facility] Hemoglobin mass conc (Bld) 12.7 g/dL Invalid Interpretation Code 12.0-15.0 [facility] MCH 27.0 pg Invalid Interpretation Code 27.0-32.0 [facility] MCHC mass conc (RBC) 32.2 G/GL Invalid Interpretation Code 32-36 [facility] MCV 83.8 fL Invalid Interpretation Code 81-99 [facility] Platelets 266 10*3/mm3 Invalid Interpretation Code 150-450 [facility] PMV by Cheng 10.6 fL Invalid Interpretation Code 6.2-12.0 [facility] RDW SD 45.6 fL High 35.1-43.9 [facility] WBC (Leukocytes) 13.5 10*3/uL High 4.4-11.0 [facility] Lab Report: Comprehensive Me tabolic Profilon 03-04-2017 Alanine aminotransferase (ALT) 20 U/L Invalid Interpretation Code 12-78 [facility] Albumin/Globulin Ratio 0.5 {ratio} Low 0.9-2.4 B [facility] Alkaline phosphatase (ALP) 160 U/L High 45-117 [facility] Anion gap 13 mmol/L Invalid Interpretation Code 5-15 [facility] Aspartate aminotransferase (AST) 13 U/L Low 15-37 [facility] Bilirubin (total) 0.80 mg/dL Invalid Interpretation Code 0.20-1.00 [facility] Calcium 9.3 mg/dL Invalid Interpretation Code 8.5-10.1 [facility] Chloride 102 mmol/L Invalid Interpretation Code 98-107 [place] [facility] CO2 21.0 mmol/L Invalid Interpretation Code 21.0-32.0 [facility] Globulin 4.7 g/dL High 2.2-4.2 [facility] Potassium molar conc 4.1 mmol/L Invalid Interpretation Code 3.5-5.1 [facility] Sodium 136 mmol/L Invalid Interpretation Code 136-145 [facility] Albumin 2.4 g/dL Low 3.4-5.0 [facility] BUN/Creatinine Ratio 13.9 RATIO Invalid Interpretation Code 10-20 [facility] Creatinine 118.39 mL/min Invalid Interpretation Code [facility] Creatinine 0.72 mg/dL Invalid Interpretation Code 0.55-1.02 [facility] eGFR (non-black) 125 mL/min/{1.73_m2} Invalid Interpretation Code >60 [facility] eGFR (non-black) 103 mL/min/{1.73_m2} Invalid Interpretation Code >60 [facility] Glucose mass conc 77 mg/dL Invalid Interpretation Code 70-110 [facility] Protein 7.1 g/dL Invalid Interpretation Code 6.4-8.2 [facility] Urea nitrogen 10 mg/dL Invalid Interpretation Code 7-18 [facility] Lab Report: Protein+Creatini ne Ratio,Urineon 03-04-2017 Protein [Mass] in Urine collected for unspecified duration 45.3 mg/dL High <11.9 [facility] protein/creatinine, urine, point, quantitative 571 MG/G CRE High 0-200 [facility] Urine, creatinine 79.40 mg/dL Invalid Interpretation Code NO RANGE EST. [facility] Lab Report: Urinalysis, Comp leteon 03-04-2017 Urine, bacteria in sediment 2 /[HPF] Invalid Interpretation Code None Seen [facility] Urine, epithelial cells in sediment 5-10 SEEN Invalid Interpretation Code 5-10 [facility] Urine, erythrocytes in sediment by volume 0-5 SEEN Invalid Interpretation Code 0-5 [facility] Urine, mucus presence in sediment 0 SEEN Invalid Interpretation Code [facility] WBC (Leukocytes) 50-100 SEEN Invalid Interpretation Code 0-5 [facility] Office Visit: OB Routineon 1 Documentation of current medications (procedure) Done Invalid Interpretation Code [facility] Office Visit: OB Routineon 1 Urine, glucose presence N Invalid Interpretation Code [facility] Office Visit: OB Routineon 1 Tobacco smoking status NHIS Never Invalid Interpretation Code [facility] Tobacco use CPHS Never smoker Invalid Interpretation Code [facility] Microbiology: Culture, Group B Streptococcuson 02-13-2017 CUGRB THAIS CultureGroup B Beta Streptococcus is not isolated. Invalid Interpretation Code [facility] Lab Report: Group B Strep DN A By PCRon 02-10-2017 GBS TEST RESULT Negative Invalid Interpretation Code Negative [facility] Office Visit: OB Routineon 0 12-29-2016 Urine, nitrite presence + Invalid Interpretation Code [facility] Vital Signs Date Time Vital Sign Value Performing Clinician Facility 11-05-2024 09:33-0400 Body height 167.[address] Work Phone: [facility] 11-05-2024 09:33-0400 Body mass index (BMI) [Ratio] 36.32 kg/m2 Stef Luis RD Work Phone: [facility] 11-05-2024 09:33-0400 Body weight 102.[address] Work Phone: [facility] Comment on above: verbal per patient 09-21-2024 06:11-0400 Body temperature 98.3 [degF] Dr. Asif Haque MD Work Phone: [facility] 09-21-2024 06:11-0400 Diastolic blood pressure 60 mm[Hg] Dr. Asif Haque MD Work Phone: [facility] 09-21-2024 06:11-0400 Heart rate 87 /min Dr. Asif Haque MD Work Phone: [facility] 09-21-2024 06:11-0400 SaO2% (BldA) [Mass fraction] 98 % Dr. Asif Haque MD Work Phone: [facility] 09-21-2024 06:11-0400 Systolic blood pressure 110 mm[Hg] Dr. Asif Haque MD Work Phone: [facility] 08-09-2024 09:56-0400 Body mass index (BMI) [Ratio] 35.08 kg/m2 Manuela Isbell MD Work Phone: [facility] 08-09-2024 09:56-0400 Body weight 101.6 kg Manuela Isbell MD Work Phone: [facility] 08-09-2024 09:56-0400 Diastolic blood pressure 79 mm[Hg] Manuela Isbell MD Work Phone: [facility] 08-09-2024 09:56-0400 Heart rate 79 /min Manuela Isbell MD Work Phone: [facility] 08-09-2024 09:56-0400 Systolic blood pressure 127 mm[Hg] Manuela Isbell MD Work Phone: [facility] 07-13-2024 13:32-0500 Body height 170.[address] Work Phone: [facility] 07-13-2024 13:32-0500 Body mass index (BMI) [Ratio] 33.99 kg/m2 Stef Luis RD Work Phone: [facility] 07-13-2024 13:32-0500 Body weight 98.[address] Work Phone: [facility] Comment on above: verbal per patient 07-04-2024 15:26-0500 Body mass index (BMI) [Ratio] 35.08 kg/m2 Manuela Isbell MD Work Phone: [facility] 07-04-2024 15:26-0500 Body weight 101.61 kg Manuela Isbell MD Work Phone: [facility] 05-29-2024 12:50-0500 Body height 170.2 cm Ping Alexney INSULATOR HELPER.CHILD DEVELOPMENT CONSULTANT Work Phone: [facility] 04-09-2024 12:53-0500 Body height 170.[address] Work Phone: [facility] 04-09-2024 12:53-0500 Body mass index (BMI) [Ratio] 32.58 kg/m2 Stef Densonkaito RD Work Phone: [facility] 04-09-2024 12:53-0500 Body weight 94.[address] Work Phone: [facility] Comment on above: verbal per patient 03-06-2024 07:39-0400 Body mass index (BMI) [Ratio] 34.15 kg/m2 Crista Carmichael APRN.CHILD DEVELOPMENT CONSULTANT Work Phone: [facility] 03-06-2024 07:39-0400 Body temperature 98.49 [degF] Crista Carmichael APRN.CHILD DEVELOPMENT CONSULTANT Work Phone: [facility] 03-06-2024 07:39-0400 Body weight 98.9 kg Crista Carmichael APRN.CHILD DEVELOPMENT CONSULTANT Work Phone: [facility] 03-06-2024 07:39-0400 Diastolic blood pressure 80 mm[Hg] Crista Carmichael APRN.CHILD DEVELOPMENT CONSULTANT Work Phone: [facility] 03-06-2024 07:39-0400 Heart rate 100 /min Crista Carmichael APRN.CHILD DEVELOPMENT CONSULTANT Work Phone: [facility] 03-06-2024 07:39-0400 Respiratory rate 18 /min Crista Carmichael APRN.CHILD DEVELOPMENT CONSULTANT Work Phone: [facility] 03-06-2024 07:39-0400 SaO2% (BldA) [Mass fraction] 98 % Crista Carmichael APRN.CHILD DEVELOPMENT CONSULTANT Work Phone: [facility] 03-06-2024 07:39-0400 Systolic blood pressure 122 mm[Hg] Crista Carmichael APRN.CHILD DEVELOPMENT CONSULTANT Work Phone: [facility] 02-20-2024 06:50-0400 Body height 170.2 cm Pign Prince INSULATOR HELPER.CHILD DEVELOPMENT CONSULTANT Work Phone: [facility] 02-20-2024 06:50-0400 Body mass index (BMI) [Ratio] 33.67 kg/m2 Ping Prince INSULATOR HELPER.CHILD DEVELOPMENT CONSULTANT Work Phone: [facility] 02-20-2024 06:50-0400 Body weight 97.52 kg Ping Prince INSULATOR HELPER.CHILD DEVELOPMENT CONSULTANT Work Phone: [facility] 02-14-2024 09:16-0400 Body height 170.2 cm Donita Green MD Work Phone: [facility] 02-14-2024 09:16-0400 Body mass index (BMI) [Ratio] 33.67 kg/m2 Donita Green MD Work Phone: [facility] 02-14-2024 09:16-0400 Body weight 97.52 kg Donita Green MD Work Phone: [facility] 02-14-2024 09:16-0400 Diastolic blood pressure 90 mm[Hg] Donita Green MD Work Phone: [facility] 02-14-2024 09:16-0400 Heart rate 78 /min Donita Green MD Work Phone: [facility] 02-14-2024 09:16-0400 Respiratory rate 17 /min Donita Green MD Work Phone: [facility] 02-14-2024 09:16-0400 SaO2% (BldA) [Mass fraction] 97 % Donita Green MD Work Phone: [facility] 02-14-2024 09:16-0400 Systolic blood pressure 122 mm[Hg] Donita Green MD Work Phone: [facility] 01-06-2024 15:05-0400 Body height 170.[address] Work Phone: [facility] 01-06-2024 15:05-0400 Body mass index (BMI) [Ratio] 31.73 kg/m2 Stef Luis RD Work Phone: [facility] 01-06-2024 15:05-040 Body weight 91.[address] Work Phone: [facility] Comment on above: verbal per patient 11-21-2023 13:29-0400 Body mass index (BMI) [Ratio] 32.26 kg/m2 Kiera Suppan INSULATOR HELPER.CHILD DEVELOPMENT CONSULTANT Work Phone: [facility] 11-21-2023 13:29-0400 Body weight 93.44 kg Kiera Suppjuhi INSULATOR HELPER.CHILD DEVELOPMENT CONSULTANT Work Phone: [facility] 11-21-2023 13:29-0400 Diastolic blood pressure 72 mm[Hg] Kiera Suppan INSULATOR HELPER.CHILD DEVELOPMENT CONSULTANT Work Phone: [facility] 11-21-2023 13:29-0400 Heart rate 97 /min Kiera Suppan INSULATOR HELPER.CHILD DEVELOPMENT CONSULTANT Work Phone: [facility] 11-21-2023 13:29-0400 SaO2% (BldA) [Mass fraction] 99 % Kiera Suppan INSULATOR HELPER.CHILD DEVELOPMENT CONSULTANT Work Phone: [facility] 11-21-2023 13:29-0400 Systolic blood pressure 110 mm[Hg] Kiera Suppan INSULATOR HELPER.CHILD DEVELOPMENT CONSULTANT Work Phone: [facility] 10-20-2023 11:19-0400 Body height 170.2 cm Ping Prince INSULATOR HELPER.CHILD DEVELOPMENT CONSULTANT Work Phone: [facility] 10-20-2023 11:19-0400 Body mass index (BMI) [Ratio] 31.98 kg/m2 Ping Prince INSULATOR HELPER.CHILD DEVELOPMENT CONSULTANT Work Phone: [facility] 10-20-2023 11:19-0400 Body weight 92.63 kg Ping Prince INSULATOR HELPER.CHILD DEVELOPMENT CONSULTANT Work Phone: [facility] 10-07-2023 14:54-0400 Body height 170.[address] Work Phone: [facility] 10-07-2023 14:54-0400 Body mass index (BMI) [Ratio] 31.42 kg/m2 Stef Luis RD Work Phone: [facility] 10-07-2023 14:54-0400 Body weight 90.[address] Work Phone: [facility] Comment on above: verbal per patient 08-15-2023 09:53-0400 Body height 170.2 cm Donita Green MD Work Phone: [facility] 08-15-2023 09:53-0400 Body weight 91.63 kg Donita Green MD Work Phone: [facility] 08-15-2023 09:53-0400 Diastolic blood pressure 84 mm[Hg] Donita Green MD Work Phone: [facility] 08-15-2023 09:53-0400 Heart rate 84 /min Donita Green MD Work Phone: [facility] 08-15-2023 09:53-0400 Respiratory rate 17 /min Donita Green MD Work Phone: [facility] 08-15-2023 09:53-0400 SaO2% (BldA) [Mass fraction] 98 % Donita Green MD Work Phone: [facility] 08-15-2023 09:53-0400 Systolic blood pressure 122 mm[Hg] Donita Green MD Work Phone: [facility] 07-14-2023 10:51-0500 Body height 167.6 cm Ping Prince INSULATOR HELPER.CHILD DEVELOPMENT CONSULTANT Work Phone: [facility] 07-14-2023 10:51-0500 Body weight 96.16 kg Ping Prince INSULATOR HELPER.CHILD DEVELOPMENT CONSULTANT Work Phone: [facility] 07-07-2023 15:17-0500 Body height 167.[address] Work Phone: [facility] 07-07-2023 15:17-0500 Body weight 96.[address] Work Phone: [facility] 05-13-2023 11:40-0500 Body height 170.[address] Asif Haque Work Phone: [facility] 05-13-2023 11:36-0500 Body mass index (BMI) [Ratio] 32.3 kg/m2 Dr. Asif Haque Work Phone: 9(935)070-216009 [address] 05-13-2023 11:36-0500 Body weight 93.[address] Asif Haque Work Phone: 1(798)631-469268 [place] [address] 05-13-2023 11:36-0500 Diastolic blood pressure 84 mm[Hg] Dr. Asif Haque Work Phone: 3(456)945-047709 [address] 05-13-2023 11:36-0500 Systolic blood pressure 132 mm[Hg] Dr. Asif Haque Work Phone: 6(049)279-889577 [place] [address] 05-10-2023 13:18-0500 Body mass index (BMI) [Ratio] 32.4 kg/m2 Dr. Asif Haque Work Phone: 4(051)246-563968 [place] [address] 05-10-2023 13:18-0500 Body temperature 98.9 [degF] Dr. Asif Haque Work Phone: 5(473)219-613668 [place] [address] 05-10-2023 13:18-0500 Body weight 94.[address] Asif Haque Work Phone: 9(527)906-940668 [place] [address] 05-10-2023 13:18-0500 Diastolic blood pressure 76 mm[Hg] Dr. Asif Haque Work Phone: 6(064)[phone] [place] [address] 05-10-2023 13:18-0500 Heart rate 80 /min Dr. Asif Haque Work Phone: 3(286)085-156868 [place] [address] 05-10-2023 13:18-0500 Respiratory rate 16 /min Dr. Asif Haque Work Phone: [facility] 05-10-2023 13:18-0500 SaO2% (BldA) [Mass fraction] 98 % Dr. Asif Haque Work Phone: [facility] 05-10-2023 13:18-0500 Systolic blood pressure 136 mm[Hg] Dr. Asif Haque Work Phone: [facility] 03-09-2023 12:57-0400 Heart rate 61 /min Dr. Asif Haque Work Phone: [facility] 03-09-2023 12:57-0400 Respiratory rate 17 /min Dr. Asif Haque Work Phone: [facility] 11-18-2022 11:19-0400 Body weight 90.27 kg NA Swain PA-C Work Phone: [facility] 11-18-2022 11:19-0400 Diastolic blood pressure 70 mm[Hg] NA Swain PA-C Work Phone: [facility] 11-18-2022 11:19-0400 Heart rate 89 /min NA Swain PA-C Work Phone: [facility] 11-18-2022 11:19-0400 Respiratory rate 16 /min NA Swain PA-C Work Phone: [facility] 11-18-2022 11:19-0400 SaO2% (BldA) [Mass fraction] 98 % NA Swain PA-C Work Phone: [facility] 11-18-2022 11:19-0400 Systolic blood pressure 120 mm[Hg] NA Swain PA-C Work Phone: [facility] 09-21-2022 12:56-0400 Body temperature 99.19 [degF] Caroline Miller PA-C Work Phone: [facility] 09-21-2022 12:56-0400 Body weight 91.63 kg Caroline Miller PA-C Work Phone: [facility] 09-21-2022 12:56-0400 Diastolic blood pressure 82 mm[Hg] Caroline Miller PA-C Work Phone: [facility] 09-21-2022 12:56-0400 Heart rate 64 /min Caroline Miller PA-C Work Phone: [facility] 09-21-2022 12:56-0400 Respiratory rate 20 /min Caroline Miller PA-C Work Phone: [facility] 09-21-2022 12:56-0400 SaO2% (BldA) [Mass fraction] 97 % Caroline Miller PA-C Work Phone: [facility] 09-21-2022 12:56-0400 Systolic blood pressure 116 mm[Hg] Caroline Miller PA-C Work Phone: [facility] 09-20-2022 19:26-0400 Diastolic blood pressure 68 mm[Hg] Dr. Asif Haque Work Phone: [facility] 09-20-2022 19:26-0400 Heart rate 70 /min Dr. Asif Haque Work Phone: 0(153)[phone] [place] [address] 09-20-2022 19:26-0400 Respiratory rate 18 /min Dr. Asif Haque Work Phone: [facility] 09-20-2022 19:26-0400 SaO2% (BldA) [Mass fraction] 100 % Dr. Asif Haque Work Phone: [facility] 09-20-2022 19:26-0400 Systolic blood pressure 120 mm[Hg] Dr. Asif Haque Work Phone: [facility] 09-20-2022 17:01-0400 Body height 170.[address] Asif Haque Work Phone: 0(375)193-790568 [place] [address] 09-20-2022 17:01-0400 Body mass index (BMI) [Ratio] 31.6 kg/m2 Dr. Asif Haque Work Phone: 6(647)089-843468 [place] [address] 09-20-2022 17:01-0400 Body temperature 99.7 [degF] Dr. Asif Haque Work Phone: [facility] 09-20-2022 17:01-0400 Body weight 91.[address] Asif Haque Work Phone: [facility] 07-19-2022 06:33-0400 Body temperature 101.4 [degF] Dr. Asif Haque Work Phone: [facility] 07-19-2022 06:33-0400 Diastolic blood pressure 74 mm[Hg] Dr. Asif Haque Work Phone: [facility] 07-19-2022 06:33-0400 Heart rate 110 /min Dr. Asif Haque Work Phone: [facility] 07-19-2022 06:33-0400 Respiratory rate 16 /min Dr. Asif Haque Work Phone: [facility] 07-19-2022 06:33-0400 SaO2% (BldA) [Mass fraction] 97 % Dr. Asif Haque Work Phone: [facility] 07-19-2022 06:33-0400 Systolic blood pressure 132 mm[Hg] Dr. Asif Haque Work Phone: [facility] 05-14-2022 09:58-0500 Body weight 96.62 kg NA Swian PA-C Work Phone: [facility] 05-14-2022 09:58-0500 Diastolic blood pressure 64 mm[Hg] NA Swain PA-C Work Phone: [facility] 05-14-2022 09:58-0500 Heart rate 70 /min NA Swain PA-C Work Phone: [facility] 05-14-2022 09:58-0500 Respiratory rate 16 /min NA Swain PA-C Work Phone: [facility] 05-14-2022 09:58-0500 SaO2% (BldA) [Mass fraction] 96 % NA Swain PA-C Work Phone: [facility] 05-14-2022 09:58-0500 Systolic blood pressure 120 mm[Hg] SUKHWINDER Swain PA-C Work Phone: [facility] 04-21-2022 09:25-0500 Body temperature 100.9 [degF] Nettie Haagen INSULATOR HELPER.CHILD DEVELOPMENT CONSULTANT Work Phone: [facility] 04-21-2022 09:25-0500 Diastolic blood pressure 82 mm[Hg] Nettie Haagen INSULATOR HELPER.CHILD DEVELOPMENT CONSULTANT Work Phone: [facility] 04-21-2022 09:25-0500 Heart rate 86 /min Nettie Haagen INSULATOR HELPER.CHILD DEVELOPMENT CONSULTANT Work Phone: [facility] 04-21-2022 09:25-0500 Respiratory rate 18 /min Nettie Haagen INSULATOR HELPER.CHILD DEVELOPMENT CONSULTANT Work Phone: [facility] 04-21-2022 09:25-0500 SaO2% (BldA) [Mass fraction] 96 % Nettie Haagen INSULATOR HELPER.CHILD DEVELOPMENT CONSULTANT Work Phone: [facility] 04-21-2022 09:25-0500 Systolic blood pressure 124 mm[Hg] Nettie Haagen INSULATOR HELPER.CHILD DEVELOPMENT CONSULTANT Work Phone: [facility] 03-10-2022 09:06-0400 Body temperature 98.91 [degF] Josiah Gould MD Work Phone: [facility] 03-10-2022 09:06-0400 Body weight 102.06 kg Josiah Gould MD Work Phone: [facility] 03-10-2022 09:06-0400 Diastolic blood pressure 80 mm[Hg] Josiah Guold MD Work Phone: [facility] 03-10-2022 09:06-0400 Heart rate 93 /min Josiah Gould MD Work Phone: [facility] 03-10-2022 09:06-0400 Respiratory rate 18 /min Josiah Gould MD Work Phone: [facility] 03-10-2022 09:06-0400 SaO2% (BldA) [Mass fraction] 98 % Josiah Gould MD Work Phone: [facility] 03-10-2022 09:06-0400 Systolic blood pressure 118 mm[Hg] Josiah Gould MD Work Phone: [facility] 02-11-2022 11:55-0400 Body weight 107.5 kg NA Swain PA-C Work Phone: [facility] 02-11-2022 11:55-0400 Diastolic blood pressure 76 mm[Hg] NA Swain PA-C Work Phone: [facility] 02-11-2022 11:55-0400 Heart rate 81 /min NA Swain PA-C Work Phone: [facility] 02-11-2022 11:55-0400 Respiratory rate 16 /min NA Swain PA-C Work Phone: [facility] 02-11-2022 11:55-0400 SaO2% (BldA) [Mass fraction] 98 % NA Swain PA-C Work Phone: [facility] 02-11-2022 11:55-0400 Systolic blood pressure 120 mm[Hg] NA Swain PA-C Work Phone: [facility] 11-10-2021 08:11-0400 Body weight 122.02 kg NA Swain PA-C Work Phone: [facility] 11-10-2021 08:11-0400 Diastolic blood pressure 72 mm[Hg] NA Swain PA-C Work Phone: [facility] 11-10-2021 08:11-0400 Heart rate 74 /min NA Swain PA-C Work Phone: [facility] 11-10-2021 08:11-0400 SaO2% (BldA) [Mass fraction] 99 % NA Swain PA-C Work Phone: [facility] 11-10-2021 08:11-0400 Systolic blood pressure 114 mm[Hg] NA Swain PA-C Work Phone: [facility] 09-28-2021 16:01-0400 Body height 167.6 cm Scooby Pollock MD Work Phone: [facility] 09-28-2021 16:01-0400 Body weight 129.82 kg Scooby Pollock MD Work Phone: [facility] 08-12-2021 10:58-0400 Body height 167.6 cm Fellow Main Work Phone: [facility] 08-12-2021 10:58-0400 Body weight 140.62 kg Fellow Main Work Phone: [facility] 08-11-2021 12:51-0400 Body height 167.[address] Work Phone: [facility] 08-11-2021 12:51-0400 Body weight 140.[address] Work Phone: [facility] 03-02-2017 08:53-0400 BMI (Body Mass Index) 47.98 kg/m2 Julissa Connell MD [facility] 03-02-2017 08:53-0400 Body Temperature 97.5 [degF] Julissa Connell MD [facility] 03-02-2017 08:53-0400 BP Diastolic 70 mm[Hg] Julissa Connell MD [facility] 03-02-2017 08:53-0400 BP Systolic 111 mm[Hg] Julissa Connell MD [facility] 03-02-2017 08:53-0400 Pulse (Heart Rate) 80 /min Julissa Connell MD [facility] 03-02-2017 08:53-0400 Respiratory Rate 16 /min Julissa Connell MD [facility] 03-02-2017 08:53-0400 Weight 138.98 kg Julissa Connell MD [facility] 12-15-2016 11:14-0400 Height 170.18 cm Julissa Connell MD [facility] Encounters Encounter Date Encounter Type Care Provider Facility Start: 11-05-2024 End: 11-05-2024 Admission to same day surgery center Stef Luis RD Work Phone: General Surgery Comment on above: Class 1 obesity (Keyana nagi Dx); Dietary counseling and surveillance; S/P gastric bypass; Impaired intestinal absorption (HCC) Start: 11-05-2024 End: 11-05-2024 Telemedicine consultation with patient Stef Luis RD Work Phone: General Surgery Start: 11-05-2024 End: 11-05-2024 ambulatory STEF LUIS Facility:[facility] Start: 10-28-2024 End: 10-29-2024 ambulatory Manuela Isbell MD Work Phone: Endocrinology Comment on above: Struggling with my b lood sugars Start: 09-21-2024 End: 09-21-2024 Patient encounter procedure Charles CALLES -[facility] Work Phone: Start: 09-21-2024 End: 09-21-[address] Asif Haque MD Work Phone: [facility] Work Phone: Start: 08-21-2024 End: 09-19-2024 ambulatory Manuela Isbell MD Work Phone: Endocrinology Comment on above: Medicine question Start: 08-10-2024 End: 10-10-2024 Follow-up encounter Manuela Isbell MD Work Phone: Endocrinology Start: 08-09-2024 End: 08-09-2024 ambulatory MANUELA ISBELL Facility:[facility] Start: 08-09-2024 End: 08-09-2024 Patient encounter procedure Manuela Isbell MD Work Phone: Endocrinology Comment on above: Class 2 severe obesi ty with serious comorbidity and body mass index (BMI) of 35.0 to 35.9 in adult, unspecified obesity type (HCC) (Primary Dx); Hypoglycemia after GI (gastrointestinal) surgery (HCC) Start: 07-20-2024 End: 09-19-2024 Follow-up encounter Manuela Isbell MD Work Phone: General Surgery Start: 07-13-2024 End: 07-13-2024 Admission to same day surgery center Stef Luis RD Work Phone: General Surgery Comment on above: Class 2 obesity (Keyana nagi Dx); Dietary counseling and surveillance; S/P gastric bypass; Impaired intestinal absorption Start: 07-13-2024 End: 07-13-2024 ambulatory STEF DIMANDRAE Facility:[facility] Start: 07-13-2024 End: 07-13-2024 Telemedicine consultation with patient Stef Densonandrae CHERY Work Phone: General Surgery Start: 07-13-2024 End: 07-13-2024 ambulatory MANUELA ISBELL Facility:[facility] Start: 07-09-2024 End: 07-09-2024 Follow-up encounter Manuela Isbell MD Work Phone: General Surgery Comment on above: Hypoglycemia after G I (gastrointestinal) surgery (Primary Dx) Start: 07-09-2024 End: 07-09-2024 Telephone encounter Manuela Isbell MD Work Phone: Endocrinology Comment on above: Appointment (Called patient and left voicemail to notify of scheduled appointment) Start: 07-06-2024 End: 07-06-2024 ambulatory ASIF HAQUE Facility:[facility] Start: 07-04-2024 End: 07-04-2024 Admission to same day surgery center Manuela Isbell MD Work Phone: General Surgery Comment on above: Hypoglycemia after G I (gastrointestinal) surgery (Primary Dx) Start: 07-04-2024 End: 07-04-2024 ambulatory MANUELA ISBELL Facility:[facility] Start: 07-04-2024 End: 07-04-2024 Telemedicine consultation with patient Manuela Isbell MD Work Phone: General Surgery Start: 05-30-2024 End: 05-30-[address] Felice Centeno [facility] -[facility] Work Phone: Start: 05-29-2024 End: 05-29-2024 Admission to same day surgery center Ping Ansari APRN.CNP Work Phone: General Surgery BMI Comment on above: S/P gastric bypass ( Primary Dx) Start: 05-29-2024 End: 05-29-2024 Telemedicine consultation with patient Ping Danyell Ansari APRN.CHILD DEVELOPMENT CONSULTANT Work Phone: General Surgery BMI Start: 05-29-2024 End: 05-30-2024 ambulatory [facility] Facility:[facility] Start: 05-21-2024 Encounter for gynecological examination (general) (routine) with abnormal findings Julissa Connell [facility] Start: 05-21-2024 End: 05-21-2024 ambulatory Julissa Connell Facility:[facility] Start: 05-21-2024 End: 05-21-2024 ambulatory [place]alacey [place] Facility:[facility] Start: 04-16-2024 End: 04-16-2024 ambulatory [facility] Facility:[facility] Start: 04-09-2024 End: 04-09-2024 Admission to same day surgery center Stef Luis RD Work Phone: General Surgery Comment on above: Class 1 obesity (Keyana nagi Dx); Dietary counseling and surveillance; S/P gastric bypass; Impaired intestinal absorption Start: 04-09-2024 End: 04-09-2024 ambulatory STEF LUIS Facility:[facility] Start: 04-09-2024 End: 04-09-2024 Telemedicine consultation with patient Stef Densonandrae CHERY Work Phone: General Surgery Start: 03-14-2024 End: 03-14-2024 [facility] Facility:[facility] Start: 03-08-2024 End: 03-08-2024 ambulatory [facility] Start: 03-06-2024 End: 03-06-2024 ambulatory [facility] Facility:[facility] Start: 03-06-2024 End: 03-06-2024 Patient encounter procedure Crista Carmichael APRN.CHILD DEVELOPMENT CONSULTANT Work Phone: [facility] Comment on above: Bacterial sinusitis (Primary Dx) Start: 02-21-2024 End: 02-21-2024 ambulatory Herminio CALLES Facility:[facility] Start: 02-20-2024 End: 02-20-2024 Admission to same day surgery center Ping Prince APRN.CHILD DEVELOPMENT CONSULTANT Work Phone: General Surgery Comment on above: Class 1 obesity (Keyana nagi Dx) Start: 02-20-2024 End: 02-20-2024 ambulatory PING ANSARI Facility:[facility] Start: 02-20-2024 End: 02-20-2024 Telemedicine consultation with patient Ping Prince CHILD DEVELOPMENT CONSULTANT Work Phone: General Surgery Start: 02-14-2024 End: 02-14-2024 ambulatory JESSICA BAUTISTAORY LESLYE Facility:[facility] Start: 02-14-2024 End: 02-14-2024 Patient encounter procedure Donita Green MD Work Phone: Endocrinology Comment on above: Collin's thyroidi tis (Primary Dx); Thyroid nodule Start: 01-20-2024 End: 01-20-2024 ambulatory JESSICA SWAIN Facility:[facility] Start: 01-12-2024 End: 01-12-2024 Orders Only Ping Prince MARYJANE.CHILD DEVELOPMENT CONSULTANT Work Phone: General Surgery BMI Comment on above: S/P gastric bypass ( Primary Dx) Start: 01-06-2024 End: 01-06-2024 Admission to same day surgery center Stef Luis RD Work Phone: General Surgery Comment on above: Class 1 obesity (Keyana nagi Dx); Dietary counseling and surveillance; S/P gastric bypass; Impaired intestinal absorption Start: 01-06-2024 End: 01-06-2024 ambulatory JESSICA SWAIN Facility:[facility] Start: 01-06-2024 End: 01-06-2024 Telemedicine consultation with patient Stef Luis RD Work Phone: General Surgery Start: 12-19-2023 End: 12-19-2023 ambulatory JESSICA SWAIN Facility:[facility] Start: 12-19-2023 End: 12-19-2023 Subsequent hospital visit by physician [facility] Work Phone: Radiology Comment on above: Thyroid nodule [E04. 1] Start: 11-21-2023 End: 11-21-2023 Office outpatient visit 25 minutes Kiera Carson APRN.CHILD DEVELOPMENT CONSULTANT Work Phone: [facility] Comment on above: Tinea cruris (Primar y Dx); Migraine with aura, not intractable, without status migrainosus; Gastroesophageal reflux disease without esophagitis; Other chronic pain Start: 11-21-2023 End: 11-21-2023 ambulatory JESSICA SWAIN Facility:[facility] Start: 10-20-2023 End: 10-20-2023 Admission to same day surgery center Ping Suresh WESLEY.CHILD DEVELOPMENT CONSULTANT Work Phone: General Surgery BMI Comment on above: Class 1 obesity (Keyana nagi Dx) Start: 10-20-2023 End: 10-20-2023 Telemedicine consultation with patient Ping Prince MARYJANE.CHILD DEVELOPMENT CONSULTANT Work Phone: General Surgery BMI Start: 10-07-2023 End: 10-07-2023 Admission to same day surgery center Stef Luis RD Work Phone: General Surgery Comment on above: Class 1 obesity (Keyana nagi Dx); Dietary counseling and surveillance; S/P gastric bypass; Impaired intestinal absorption Start: 10-07-2023 End: 10-07-2023 Telemedicine consultation with patient Stef Luis RD Work Phone: General Surgery Start: 08-15-2023 End: 08-15-2023 Patient encounter procedure Donita Green MD Work Phone: Endocrinology Comment on above: Thyroid nodule (Prim swathi Dx); Collin's thyroiditis Start: 07-14-2023 End: 07-14-2023 ambulatory Ping Suresh WESLEY.CHILD DEVELOPMENT CONSULTANT Work Phone: General Surgery BMI Comment on above: S/P gastric bypass ( Primary Dx); Collin's thyroiditis Start: 07-14-2023 End: 07-14-2023 Telemedicine consultation with patient Ping Prince MARYJANE.CHILD DEVELOPMENT CONSULTANT Work Phone: [facility] Start: 07-07-2023 End: 07-07-[address] Work Phone: General Surgery Comment on above: Class 3 obesity (HCC ) (Primary Dx); Dietary counseling and surveillance; S/P gastric bypass Start: 07-07-2023 End: 07-07-2023 Telemedicine consultation with patient Stef Luis MIRI Work Phone: [facility] Start: 06-21-2023 End: 06-21-[address] Asif Haque Work Phone: [facility] Work Phone: Start: 06-21-2023 End: 06-21-[address] Asif Haque Work Phone: [facility] Work Phone: Start: 05-13-2023 End: 05-13-[address] Asif Haque Work Phone: [facility] Work Phone: Start: 05-10-2023 End: 05-10-[address] Asif Haque Work Phone: [facility] Work Phone: Start: 03-09-2023 End: 03-09-[address] Asif Haque Work Phone: [facility] Work Phone: Start: 03-09-2023 End: 03-09-[address] Asif Haque Work Phone: [facility] Work Phone: Start: 02-04-2023 Telephone encounter Phyllis rogers MD Work Phone: General Surgery Comment on above: Returning Patient's Call Start: 12-23-2022 Telephone encounter Debra Swain PA-C Work Phone: [facility] Start: 11-22-2022 End: 11-22-2022 Subsequent hospital visit by physician [facility] Work Phone: Radiology Comment on above: Thyromegaly [E01.0] Start: 11-18-2022 End: 11-18-2022 Patient encounter procedure Debra CALLES-C Work Phone: [facility] Comment on above: Panic disorder (Prim swathi Dx); Thyromegaly; Morbid obesity (HCC); Gastroesophageal reflux disease, unspecified whether esophagitis present Start: 09-21-2022 End: 09-21-2022 Subsequent hospital visit by physician Xr [facility] Work Phone: Radiology Comment on above: Right flank pain [R1 0.9] Start: 09-21-2022 End: 09-21-2022 Patient encounter procedure Caroline CALLES-C Work Phone: [facility] Comment on above: RUQ pain (Primary Dx ); Right flank pain; Nausea; Epigastric pain; Acute constipation Start: 09-20-2022 End: 09-20-2022 Emergency department patient visit Dr. Asif Haque Work Phone: [facility] Start: 07-19-2022 End: 07-19-[address] Asif Haque Work Phone: [facility] Start: 06-06-2022 ambulatory Debra CALLES-[employer] Work Phone: [facility] Comment on above: Groin cyst flair Start: 05-14-2022 End: 05-14-2022 Patient encounter procedure Debra PADRONC Work Phone: [facility] [place] Comment on above: S/P bariatric surger y (Primary Dx); Hair loss; Cystic acne; Influenza A; Loss of libido; Prediabetes; Screening for lipid disorders Start: 04-22-2022 ambulatory Debra CALLES-[employer] [facility] Phone[facility] Comment on above: vertigo Start: 04-22-2022 Telephone encounter Debra CALLES-C Work Phone: [facility] [place] Comment on above: Results Start: 04-21-2022 End: 04-21-2022 Office outpatient visit 15 minutes Nettie Canales APRN.CNP Work Phone: [facility] Comment on above: Upper respiratory sy mptom (Primary Dx) Start: 03-10-2022 End: 03-10-2022 Patient encounter procedure Josiah Gould MD Work Phone: [facility] Comment on above: Acute non-recurrent sinusitis, unspecified location (Primary Dx) Start: 02-11-2022 End: 02-11-2022 Patient encounter procedure Debra Swain PA-C Work Phone: [facility] Comment on above: Iron deficiency anem ia, unspecified iron deficiency anemia type (Primary Dx); Folic acid deficiency; S/P bariatric surgery; Hair loss; Fatigue, unspecified type; Leg cramps; Cystic acne; Cellulitis of skin Start: 12-02-2021 End: 12-02-2021 Admission to same day surgery center Asiamiguel Eduardo PhD Work Phone: General Surgery Comment on above: Psychological factor s affecting medical condition (Primary Dx); Postgastric surgery syndrome Start: 12-02-2021 End: 12-02-2021 Telemedicine consultation with patient Asia Wadsworthon PhD Work Phone: [facility] Start: 11-14-2021 Telephone encounter Debra Swain PA-C Work Phone: [facility] Comment on above: Results; Orders Start: 11-11-2021 Telephone encounter Debra Swain PA-C Work Phone: [facility] Comment on above: Opened In Error Start: 11-10-2021 End: 11-10-2021 Patient encounter procedure Debra Swain PA-C Work Phone: [facility] Comment on above: Hair loss (Primary D x); Fatigue, unspecified type; S/P bariatric surgery; Leg cramps; Cystic acne Start: 09-29-2021 End: 09-29-2021 ambulatory Scooby Pollock MD Work Phone: General Surgery Comment on above: NO SHOW (Primary Dx) Start: 09-29-2021 End: 09-29-2021 Telemedicine consultation with patient Scooby Pollock MD Work Phone: [facility] Start: 08-12-2021 End: 08-12-2021 ambulatory Fellow Colton Main Work Phone: General Surgery Comment on above: Body mass index 50.0 -59.9, adult (HCC) (Primary Dx); S/P gastric bypass Start: 08-12-2021 End: 08-12-2021 Telemedicine consultation with patient Fellow Colton Main Work Phone: [facility] Start: 08-11-2021 End: 08-11-[address] Work Phone: General Surgery Comment on above: Reassessment; Patien t Education Start: 07-17-2018 Patient encounter procedure CARLOS TURNER [facility] Start: 06-15-2018 End: 06-15-2018 Patient encounter procedure JULISSA CONNELL [facility] Start: 05-22-2018 Patient encounter Kenneth Ortiz [facility] Start: 04-17-2018 Patient encounter Kenneth Ortiz [facility] Start: 04-13-2018 End: 04-13-2018 Patient encounter procedure OWEN Lucia BISHNU [facility] Start: 03-20-2018 Patient encounter Kenneth Ortiz [facility] Start: 03-13-2018 Patient encounter procedure CARLOS TURNER [facility] Start: 02-13-2018 Patient encounter Kenneth Ortiz [facility] Start: 01-31-2018 Patient encounter procedure LARRY Grace RAMAN [facility] Start: 01-19-2018 End: 01-19-2018 Patient encounter procedure CELESTE PISANO [facility] Start: 01-16-2018 Patient encounter Kenneth Ortiz [facility] Start: 12-27-2017 Patient encounter Masood Stock [facility] Start: 12-23-2017 Patient encounter Ranjit Wade [facility] Start: 12-19-2017 Patient encounter Sweetie Lisa [facility] Start: 12-16-2017 Patient encounter Rnajit Wade [facility] Start: 12-12-2017 Patient encounter Kenneth Ortiz [facility] Start: 11-14-2017 Patient encounter Ranjit Wade [facility] Start: 10-13-2017 Patient encounter Masood Stock [facility] Start: 10-13-2017 Patient encounter Masood Stock [facility] Start: 08-11-2017 End: 08-11-2017 Emergency department patient visit VALDEZ WOODALL Facility:B Procedures Date Procedure Procedure Detail Performing Clinician Start: 08-09-2024 Hemoglobin A1c/Hemoglobin.total in Blood Manuela Isbell MD Work Phone: Start: 05-30-2024 US scan of thyroid Dr. Asif Haque MD Work Phone: Start: 11-22-2022 Us soft tissue head & neck real time imge docm M Caron Swain PA-C Work Phone: Start: 09-21-2022 Radiologic exam abdo men 1 view Caroline Miller PA-C Work Phone: Start: 09-20-2022 CT of abdomen and pe lvis without contrast Dr. Asif Haque Work Phone: Start: 12-02-2021 Adult depression scr eening assessment Asia Eduardo PhD Work Phone: Start: 07-26-2021 Adult depression scr eening assessment Summer Bender RD Work Phone: Start: 03-02-2017 End: 03-02-2017 nonstress test Julissa echeverria MD Work Phone: Start: 03-02-2017 End: 03-02-2017 Us uterus limited 1/> fetuses Julissa Connell MD Work Phone: Start: 01-12-2017 End: 02-15-2017 *CUUID - Urine MOHAN Culture - Identificatn Laura Martino [employer] MECH[employer]IC HELPER Work Phone: Start: 12-29-2016 End: 02-15-2017 Us preg uterus after 1st trimest 1/ gestation Laura Martino RADIO MECHANIC HELPER Work Phone: Start: 12-21-2016 End: 12-22-2016 Chiropractic manipulative tx spinal 1-2 regions Juana Palafox DC Work Phone: Plan of Treatment Date Care Activity Detail Author Start: 05-06-2025 HPV TESTING HPV TESTING [facility] Start: 05-06-2025 PAP TESTING PAP TESTING [facility] Start: 05-06-2025 Screening for malign ant neoplasm of cervix [facility] Start: 01-14-2025 End: 01-14-2025 Patient encounter procedure 01/14/2025 9:20 AM EDT Office Visit Endocrinology [address] [place], [place] [id number] Donita Green MD [address] [place] [address] 11 month f/u- Thyroid US review Endocrinology Comment on above: 11 month f/u- Thyroi d US review Start: 01-07-2025 Influenza vaccination Influenz a Vaccine (Season Ended) [facility] Start: 12-31-2024 End: 12-31-2024 Follow-up encounter 12/31/2024 9:30 AM EDT [facility] General Surgery [address], [place] [id number] [address]f [address] [place], [place] [id number] follow up post op hypoglycemia General Surgery Comment on above: follow up post op hy poglycemia Start: 12-24-2024 End: 12-24-2024 Patient encounter procedure 12/24/2024 1:00 PM EDT Appointment Radiology [address] [place], [place] [id number] Thyroid nodule [E04.1] Radiology Comment on above: Thyroid nodule [E04. 1] Start: 12-20-2024 End: 12-20-2024 Patient encounter procedure 12/20/2024 11:20 AM EDT Office Visit Endocrinology [address] [place] [address] Manuela Isbell MD [address] [place], [place] [id number] 3 month f/u Endocrinology Comment on above: 3 month f/u Start: 12-18-2024 End: 03-19-2025 Thyrotropin [Units/volume] in Serum or Plasma THYROID STIMULATING HORMONE Lab Routine Thyroid nodule Expected: 12/18/2024, Expires: 03/19/2025 [facility] Comment on above: Expected: 12/18/2024 , Expires: 03/19/2025 Start: 12-18-2024 End: 03-15-2025 US Thyroid gland US THYROID/PARATHYROID Radiology Routine Thyroid nodule Expected: 12/18/2024, Expires: 03/15/2025 [facility] Work Phone: Comment on above: Expected: 12/18/2024 , Expires: 03/15/2025 Start: 11-05-2024 End: 11-05-2024 Follow-up encounter 11/05/2024 9:30 AM EDT [facility] Surgery [address] [id number] Stef Luis, MIRI [address] [place] [address] follow up post op aom/hypoglycemia General Surgery Comment on above: follow up post op ao m/hypoglycemia Start: 10-12-2024 End: 10-12-2024 Follow-up encounter 10/12/2024 1:30 PM EDT [facility] [address] [place] [address] [place] [address] follow up post op aom/hypoglycemia General Surgery Comment on above: follow up post op ao m/hypoglycemia Start: 08-09-2024 End: 08-09-2024 Patient encounter procedure 08/09/2024 10:00 AM EDT Office Visit Endocrinology [address] [place] [address] Manuela Isbell MD [address] [place] [address] please schedule this patient to be seen in my x building clinic in about a month from now? Endocrinology Comment on above: please schedule this patient to be seen in my x building clinic in about a month from now? Start: 07-13-2024 End: 07-13-2024 Follow-up encounter 07/13/2024 1:30 PM [facility] General Surgery [address] [place] [address] Stef Luis, RD [address] [id number] follow up post op [facility] General Surgery Comment on above: follow up post op ao m Start: 07-09-2024 End: 10-08-2024 B-HYDROXYBUTYRATE B-HYDROXYBUTYRATE Lab Routine Hypoglycemia after GI (gastrointestinal) surgery Expected: 07/09/2024, Expires: 10/08/2024 [facility] Work Phone: Comment on above: Expected: 07/09/2024 , Expires: 10/08/2024 Start: 07-09-2024 End: 10-08-2024 C peptide [Mass/volume] in Serum or Plasma C-PEPTIDE BLD Lab Routine Hypoglycemia after GI (gastrointestinal) surgery Expected: 07/09/2024, Expires: 10/08/2024 [facility] Comment on above: Expected: 07/09/2024 , Expires: 10/08/2024 Start: 07-09-2024 End: 10-08-2024 Fasting glucose [Mass/volume] in Serum or Plasma GLUCOSE, FASTING Lab Routine Hypoglycemia after GI (gastrointestinal) surgery Expected: 07/09/2024, Expires: 10/08/2024 [facility] Comment on above: Expected: 07/09/2024 , Expires: 10/08/2024 Start: 07-09-2024 End: 10-08-2024 Insulin [Units/volume] in Serum or Plasma INSULIN, TOTAL, SERUM Lab Routine Hypoglycemia after GI (gastrointestinal) surgery Expected: 07/09/2024, Expires: 10/08/2024 [facility] Comment on above: Expected: 07/09/2024 , Expires: 10/08/2024 Start: 07-09-2024 End: 07-09-2024 Follow-up encounter 07/09/2024 1:00 PM EST [facility] [facility] [address] [place] [address] [place] [address] follow up post op aom General Surgery Comment on above: follow up post op ao m Start: 07-06-2024 End: 07-06-2024 ambulatory 07/06/2024 7:00 AM EST Results Only [place] [facility] Laboratory [address] [place] [address] [facility] Start: 07-04-2024 End: 07-04-2024 Admission to same day surgery center 07/04/2024 3:15 PM EST [facility] [address] [place] [address] Manuela Isbell MD [address] [place] [address] reactive hypoglycemia General Surgery Comment on above: reactive hypoglycemi a Start: 07-04-2024 End: 10-03-2024 B-HYDROXYBUTYRATE B-HYDROXYBUTYRATE Lab Routine Hypoglycemia after GI (gastrointestinal) surgery Expected: 07/04/2024, Expires: 10/03/2024 [facility] Comment on above: Expected: 07/04/2024 , Expires: 10/03/2024 Start: 07-04-2024 End: 10-03-2024 C peptide [Mass/volume] in Serum or Plasma C-PEPTIDE BLD Lab Routine Hypoglycemia after GI (gastrointestinal) surgery Expected: 07/04/2024, Expires: 10/03/2024 [facility] Comment on above: Expected: 07/04/2024 , Expires: 10/03/2024 Start: 07-04-2024 End: 10-03-2024 Insulin [Units/volume] in Serum or Plasma INSULIN, TOTAL, SERUM Lab Routine Hypoglycemia after GI (gastrointestinal) surgery Expected: 07/04/2024, Expires: 10/03/2024 [facility] Work Phone: Comment on above: Expected: 07/04/2024 , Expires: 10/03/2024 Start: 03-30-2024 End: 03-30-2024 Follow-up encounter 03/30/2024 3:00 PM EST [facility] [address] [place] [address] [place] [address] follow up post op aom General Surgery Comment on above: follow up post op ao m Start: 03-23-2024 End: 03-23-2024 Follow-up encounter 03/23/2024 3:00 PM EST [facility] [address] [place] [address] Stef Luis, MIRI [address] [place] [address] follow up post op aom General Surgery Comment on above: follow up post op ao m Start: 02-20-2024 End: 02-20-2024 Admission to same day surgery center 02/20/2024 7:00 AM EDT [facility] [address] [place] [address] Ping Prince APRN.CHILD DEVELOPMENT CONSULTANT [address] [place] [address] weight mangement General Surgery Comment on above: weight mangement Start: 02-14-2024 End: 02-14-2024 Patient encounter procedure 02/14/2024 9:20 AM EDT Office Visit Endocrinology [address] [place] [address] Donita Green MD [address] [place] [address] 6 MTH F/U Endocrinology Comment on above: 6 MTH F/U Start: 01-12-2024 End: 04-12-2024 25-hydroxyvitamin D3 [Mass/volume] in Serum or Plasma VITAMIN D 25 HYDROXY Lab Routine S/P gastric bypass Expected: 01/12/2024, Expires: 04/12/2024 [facility] Comment on above: Expected: 01/12/2024 , Expires: 04/12/2024 Start: 01-12-2024 End: 04-12-2024 CBC W Auto Differential panel - Blood COMPLETE BLOOD COUNT AND DIFFERENTIAL Lab Routine S/P gastric bypass Expected: 01/12/2024, Expires: 04/12/2024 [facility] Work Phone: Comment on above: Expected: 01/12/2024 , Expires: 04/12/2024 Start: 01-12-2024 End: 04-12-2024 Cobalamin (Vitamin B12) [Mass/volume] in Serum or Plasma VITAMIN B12 Lab Routine S/P gastric bypass Expected: 01/12/2024, Expires: 04/12/2024 [facility] Comment on above: Expected: 01/12/2024 , Expires: 04/12/2024 Start: 01-12-2024 End: 04-12-2024 Comprehensive metabolic 2000 panel - Serum or Plasma COMPREHENSIVE METABOLIC PANEL Lab Routine S/P gastric bypass Expected: 01/12/2024, Expires: 04/12/2024 [facility] Comment on above: Expected: 01/12/2024 , Expires: 04/12/2024 Start: 01-12-2024 End: 04-12-2024 Ferritin [Mass/volume] in Serum or Plasma FERRITIN Lab Routine S/P gastric bypass Expected: 01/12/2024, Expires: 04/12/2024 [facility] Comment on above: Expected: 01/12/2024 , Expires: 04/12/2024 Start: 01-12-2024 End: 04-12-2024 Folate [Mass/volume] in Serum or Plasma FOLATE, SERUM Lab Routine S/P gastric bypass Expected: 01/12/2024, Expires: 04/12/2024 [facility] Comment on above: Expected: 01/12/2024 , Expires: 04/12/2024 Start: 01-12-2024 End: 04-12-2024 Hemoglobin A1c in Blood HEMOGLOBIN A1C Lab Routine S/P gastric bypass Expected: 01/12/2024, Expires: 04/12/2024 [facility] Comment on above: Expected: 01/12/2024 , Expires: 04/12/2024 Start: 01-12-2024 End: 04-12-2024 Iron and Iron binding capacity panel - Serum or Plasma IRON AND TIBC Lab Routine S/P gastric bypass Expected: 01/12/2024, Expires: 04/12/2024 [facility] Comment on above: Expected: 01/12/2024 , Expires: 04/12/2024 Start: 01-12-2024 End: 04-12-2024 Lipid 1996 panel - Serum or Plasma LIPID PANEL BASIC Lab Routine S/P gastric bypass Expected: 01/12/2024, Expires: 04/12/2024 [facility] Comment on above: Expected: 01/12/2024 , Expires: 04/12/2024 Start: 01-12-2024 End: 04-12-2024 Thyrotropin [Units/volume] in Serum or Plasma THYROID STIMULATING HORMONE Lab Routine S/P gastric bypass Expected: 01/12/2024, Expires: 04/12/2024 [facility] Comment on above: Expected: 01/12/2024 , Expires: 04/12/2024 Start: 01-12-2024 End: 04-12-2024 VITAMIN B1 (THIAMINE), WHOLE BLOOD VITAMIN B1 (THIAMINE), WHOLE BLOOD Lab Routine S/P gastric bypass Expected: 01/12/2024, Expires: 04/12/2024 [facility] Comment on above: Expected: 01/12/2024 , Expires: 04/12/2024 Start: 01-08-2024 Covid-19 Vaccine ( season) Covid-19 Vaccine ( season) [facility] Start: 01-08-2024 Covid-19 Vaccine ( season) Covid-19 Vaccine ( season) [facility] Start: 01-08-2024 Influenza vaccination C [facility] Start: 01-06-2024 End: 01-06-2024 Admission to same day surgery center 01/06/2024 3:00 PM EDT [facility] [address] [place] [address] Stef Luis, RD [address] [place] [address] post op rygb aom General Surgery Comment on above: post op rygb aom Start: 12-19-2023 End: 12-19-2023 Patient encounter procedure 12/19/2023 9:15 AM EDT Appointment Radiology [address] [place] [address] THYROID ULTRASOUND Radiology Comment on above: THYROID ULTRASOUND Start: 11-21-2023 End: 11-21-2023 Patient encounter procedure 11/21/2023 9:00 AM EDT Office Visit [facility] [address] [place] [address] Debra Swain PA-C [address] [place] [address] annual exam [facility] Comment on above: annual exam Start: 10-20-2023 End: 10-20-2023 Follow-up encounter 10/20/2023 11:30 AM EDT [facility] General Surgery BMI [address] [place] [address] Ping Prince, INSULATOR HELPER.CHILD DEVELOPMENT CONSULTANT [address] [place] [address] 3 month follow up per bul General Surgery BMI Comment on above: 3 month follow up pe r bulow Start: 09-24-2023 COVID-19 VACCINE (#1) COVID-19 VACCI NE (#1) [facility] Comment on above: Postponed from 10/22 (Current Illness) Start: 09-24-2023 HEPATITIS B (1 of 3 - 3-dose series) HEPATITIS B (1 of 3 - 3-dose series) [facility] Comment on above: Postponed from 04/23 (Current Illness) Start: 09-24-2023 Hepatitis B Vaccine (1 of 3 - 19+ 3-dose series) Hepatitis B Vaccine (1 of 3 - 19+ 3-dose series) [facility] Comment on above: Postponed from 04/23 (Current Illness) Start: 09-24-2023 Hepatitis B Vaccine (1 of 3 - 3-dose series) Hepatitis B Vaccine (1 of 3 - 3-dose series) [facility] Comment on above: Postponed from 04/23 (Current Illness) Start: 09-24-2023 Urine microalbumin profile [facility] Comment on above: Postponed from 12/07 (Current Illness) Start: 06-21-2023 Zinc [Mass/volume] i n Serum or Plasma [facility] Start: 05-09-2023 Behavioral Health Screening Behavioral Health Screening [facility] Start: 05-09-20[address] [facility] Start: 05-08-2023 [facility] Comment on above: Postponed from 05/09 (Declined at this time) Start: 01-07-2023 Covid-19 Vaccine () Covid-19 Vaccine () [facility] Start: 01-07-2023 Influenza vaccination C [facility] Start: 12-02-2022 Adult depression screening assessment DEPRESSION SCREENING [facility] Start: 11-18-2022 End: 01-18-2023 Thyrotropin [Units/volume] in Serum or Plasma [facility] Work Phone: Comment on above: Expected: 11/18/2022 , Expires: 01/18/2023 Start: 09-21-2022 End: 11-21-2022 Amylase [Enzymatic activity/volume] in Serum or Plasma [facility] Work Phone: Comment on above: Expected: 09/21/2022 , Expires: 11/21/2022 Start: 09-21-2022 End: 11-21-2022 Comprehensive metabolic 2000 panel - Serum or Plasma [facility] Work Phone: Comment on above: Expected: 09/21/2022 , Expires: 11/21/2022 Start: 09-21-2022 End: 11-21-2022 Lipase [Enzymatic activity/volume] in Serum or Plasma [facility] Work Phone: Comment on above: Expected: 09/21/2022 , Expires: 11/21/2022 Start: 09-20-2022 [facility] Start: 07-26-2022 Adult depression screening assessment DEPRESSION SCREENING [facility] Start: 01-01-2023 DEPRESSION ASSESSMENT DEPRESSION ASS ESSMENT [facility] Start: 03-10-2022 End: 03-24-2022 SARS-CoV-2 (COVID-19) RNA [Presence] in Respiratory specimen by JATIN with probe detection 2019 CORONAVIRUS Microbiology Routine Acute non-recurrent sinusitis, unspecified location Expected: 03/10/2022, Expires: 03/24/2022 [facility] Work Phone: Comment on above: Expected: 03/10/2022 , Expires: 03/24/2022 Start: 02-14-2022 End: 04-16-2022 Ferritin [Mass/volume] in Serum or Plasma FERRITIN BLD Lab Routine Iron deficiency anemia, unspecified iron deficiency anemia type S/P bariatric surgery Expected: 02/14/2022, Expires: 04/16/2022 [facility] Work Phone: Comment on above: Expected: 02/14/2022 , Expires: 04/16/2022 Start: 02-14-2022 End: 04-16-2022 Folate [Mass/volume] in Serum or Plasma FOLATE SERUM Lab Routine Folic acid deficiency S/P bariatric surgery Expected: 02/14/2022, Expires: 04/16/2022 [facility] Work Phone: Comment on above: Expected: 02/14/2022 , Expires: 04/16/2022 Start: 01-07-2022 Influenza vaccination C [facility] Start: 11-14-2021 End: 01-14-2022 Iron and Iron binding capacity panel - Serum or Plasma IRON + TIBC Lab Routine Iron deficiency anemia, unspecified iron deficiency anemia type S/P bariatric surgery Expected: 11/14/2021, Expires: 01/14/2022 [facility] Work Phone: Comment on above: Expected: 11/14/2021 , Expires: 01/14/2022 Start: 11-10-2021 End: 01-10-2022 Basic metabolic 2000 panel - Serum or Plasma [facility] Work Phone: Comment on above: Expected: 11/10/2021 , Expires: 01/10/2022 Start: 11-10-2021 End: 01-10-2022 CBC W Auto Differential panel - Blood [facility] Work Phone: Comment on above: Expected: 11/10/2021 , Expires: 01/10/2022 Start: 11-10-2021 End: 01-10-2022 Cobalamin (Vitamin B12) [Mass/volume] in Serum or Plasma [facility] Work Phone: Comment on above: Expected: 11/10/2021 , Expires: 01/10/2022 Start: 11-10-2021 End: 01-10-2022 Ferritin [Mass/volume] in Serum or Plasma [facility] Work Phone: Comment on above: Expected: 11/10/2021 , Expires: 01/10/2022 Start: 11-10-2021 End: 01-10-2022 Folate [Mass/volume] in Serum or Plasma [facility] Work Phone: Comment on above: Expected: 11/10/2021 , Expires: 01/10/2022 Start: 11-10-2021 End: 01-10-2022 Iron and Iron binding capacity panel - Serum or Plasma [facility] Work Phone: Comment on above: Expected: 11/10/2021 , Expires: 01/10/2022 Start: 11-10-2021 End: 01-10-2022 Magnesium [Mass/volume] in Serum or Plasma [facility] Work Phone: Comment on above: Expected: 11/10/2021 , Expires: 01/10/2022 Start: 11-10-2021 End: 01-10-2022 Thyrotropin [Units/volume] in Serum or Plasma [facility] Work Phone: Comment on above: Expected: 11/10/2021 , Expires: 01/10/2022 Start: 05-09-2021 DEPRESSION ASSESSMENT DEPRESSION ASS ESSMENT [facility] Start: 04-18-2017 End: 04-18-2017 Appointment Appointment [facility] Work Phone: Start: 03-11-2017 End: 03-11-2017 Appointment Appointment [facility] Start: 02-10-2017 End: 02-10-2017 *CUUID - Urine MOHAN Culture - Identificatn *CUUID - Urine MOHAN Culture - Identificatn [facility] Start: 02-10-2017 End: 02-10-2017 Streptococcus agalactiae DNA [Presence] in Unspecified specimen by JATIN with probe detection *GBSD - Group B Strep, DNA by PCR [facility] Start: 02-10-2017 End: 02-10-2017 Us preg uterus after 1st trimest /1st gestation US OB, >14 weeks [facility] Start: 01-12-2017 End: 02-15-2017 *CUUID - Urine MOHAN Culture - Identificatn *CUUID - Urine MOHAN Culture - Identificatn [facility] Start: 12-29-2016 End: 12-29-2016 *CUUID - Urine MOHAN Culture - Identificatn *CUUID - Urine MOHAN Culture - Identificatn [facility] Start: 12-29-2016 End: 02-15-2017 Us preg uterus after 1st trimest /1st gestation OB, >14 weeks [facility] Start: 12-21-2016 End: 12-22-2016 Physical Therapy General [facility], [address] [place] [address], [id number] [facility] Start: 12-15-2016 End: 12-17-2016 Chiropractor Referral Chiropractor Referral [facility] Start: 2008 Hepatitis B Vaccine (1 of 3 - 19+ 3-dose series) Hepatitis B Vaccine (1 of 3 - 19+ 3-dose series) [facility] Start: 2007 Depression Screening Depression Scre ening [facility] Start: 12-07-2005 Urine microalbumin profile [facility] Start: 1995 PNEUMOCOCCAL (1 - PCV) PNEUMOCOCCAL (1 - PCV) [facility] Start: 1994 COVID-19 VACCINE (#1) COVID-19 VACCI NE (#1) [facility] Start: 1994 COVID-19 VACCINE (1) COVID-19 VACCIN E (1) [facility] Start: 1989 COVID-19 VACCINE (#1) COVID-19 VACCI NE (#1) [facility] Start: 1989 HEPATITIS B (1 of 3 - 3-dose series) HEPATITIS B (1 of 3 - 3-dose series) [facility] Bacteria identified in Urine by Culture Urine Culture [facility] Hemoglobin A1c/Hemoglobin.total in Blood HEMOGLOBIN A1C (POC) Lab Routine Class 2 severe obesity with serious comorbidity and body mass index (BMI) of 35.0 to 35.9 in adult, unspecified obesity type (HCC) Ordered: 08/09/2024 [facility] Work Phone: Comment on above: Ordered: 08/09/2024 Influenza virus A an d B RNA and SARS-CoV-2 (COVID-19) N gene panel - Respiratory specimen by JATIN with probe detection COVID WITH FLUA+B, ROUTINE Microbiology Routine Upper respiratory symptom Ordered: 04/21/2022 [facility] Work Phone: Comment on above: Ordered: 04/21/2022 Patient Education ED Abdominal P ain Unkn Cause Fem [facility] Work Phone: Patient referral [facility] Work Phone: End: 10-21-2023 US ABD RIGHT UPPER QUADRANT US ABD RIGHT UPPER QUADRANT Radiology Routine Right flank pain 1 Occurrences starting 09/21/2022 until 10/21/2023 [facility] Work Phone: Comment on above: 1 Occurrences starti ng 09/21/2022 until 10/21/2023 End: 12-18-2023 Us soft tissue head & neck real time imge docm US THYROID/PARATHYROID Radiology Routine Thyromegaly 1 Occurrences starting 11/18/2022 until 12/18/2023 [facility] Work Phone: Comment on above: 1 Occurrences starti ng 11/18/2022 until 12/18/2023 US Thyroid gland [facility] End: 09-13-2024 US Thyroid gland US THYROID/PARATHYROID Radiology Routine Thyroid nodule 1 Occurrences starting 08/15/2023 until 09/13/2024 [facility] Work Phone: Comment on above: 1 Occurrences starti ng 08/15/2023 until 09/13/2024 US Thyroid gland US THYROID/PARA THYROID Radiology Routine Thyroid nodule 12/19/2023 9:37 AM EDT [facility] Work Phone: End: 10-21-2023 XR ABDOMEN 1V SUPINE XR ABDOMEN 1V SUPINE Radiology Routine Right flank pain RUQ pain Epigastric pain Acute constipation 1 Occurrences starting 09/21/2022 until 10/21/2023 [facility] Work Phone: Comment on above: 1 Occurrences starti ng 09/21/2022 until 10/21/2023 XR ABDOMEN 1V SUPINE XR ABDOMEN 1V SUPINE Radiology Routine Right flank pain RUQ pain Epigastric pain Acute constipation 09/21/2022 1:54 PM EDT [facility] Work Phone: [facility] Immunizations Immunization Date Immunization Notes Care Provider Casey phan 02-24-2011 influenza virus vaccine, unspecified formulation Summer Bender RD Work Phone: [facility] Work Phone: 08-25-2009 tuberculin skin test ; purified protein derivative solution, intradermal Stef Luis RD Work Phone: [facility] 12-06-2005 tetanus and diphther ia toxoids, adsorbed, preservative free, for adult use (2 Lf of tetanus toxoid and 2 Lf of diphtheria toxoid) Summer Bender RD Work Phone: [facility] Work Phone: 12-12-2001 measles, mumps and rubella virus vaccine Summer Bender RD Work Phone: [facility] Work Phone: 12-30-1994 diphtheria, tetanus toxoids and acellular pertussis vaccine Summer Bender RD Work Phone: [facility] Work Phone: 12-30-1994 poliovirus vaccine, inactivated Summer Bender RD Work Phone: [facility] Work Phone: 11-16-1990 diphtheria, tetanus toxoids and pertussis vaccine Summer Bender RD Work Phone: [facility] Work Phone: 11-16-1990 poliovirus vaccine, inactivated Summer Bender RD Work Phone: [facility] Work Phone: 08-03-1990 haemophilus influenz ae type b vaccine, conjugate unspecified formulation Summer Bender RD Work Phone: [facility] Work Phone: 08-03-1990 measles, mumps and rubella virus vaccine Summer Bender RD Work Phone: [facility] Work Phone: 1989 diphtheria, tetanus toxoids and pertussis vaccine Summer Bender RD Work Phone: [facility] Work Phone: 1989 diphtheria, tetanus toxoids and pertussis vaccine Summer Bender RD Work Phone: [facility] Work Phone: 1989 poliovirus vaccine, inactivated Summer Bender RD Work Phone: [facility] Work Phone: 1989 diphtheria, tetanus toxoids and pertussis vaccine Summer Bender RD Work Phone: [facility] Work Phone: 1989 poliovirus vaccine, inactivated Summer Bender RD Work Phone: [facility] Work Phone: Payers Date Payer Category Payer Self-pay 2017 Medicaid [id number] 2016 Medicaid [employer] [id number] 2016-Present [phone] [address] [place] [address] Medicaid [id number] 2016 Medicaid [id number] 2016 Unknown [id number] 2015 Unknown ANTHEM [id number] 1989 Unknown [id number] 1989 Unknown [id number] 1989 Unknown [id number] 1989 Unknown [id number] 1989 Unknown [id number] 1989 Unknown [id number] Unknown Unknown [id number] Unknown [id number] Unknown [id number] Unknown [id number] Unknown [id number] Unknown [id number] Unknown [id number] Unknown [id number] Social History Date Type Detail Facility Start: 07-18-2012 End: 02-14-2024 Tobacco smoking status NHIS Ex-smoker [facility] Start: 05-25-2006 End: 11-23-2006 History of tobacco use Current smoker [facility] Start: 05-25-2006 End: 11-23-2006 History of tobacco use Cigarette Smoker [facility] Start: 07-18-2012 End: 02-14-2024 Tobacco use and exposure Smokeless tobacco non-user [facility] Start: 07-28-2021 End: 08-09-2024 Alcohol intake Ex-drinker (finding) [facility] Start: 07-27-2021 End: 05-11-2022 History SDOH Alcohol Frequency 1 [facility] Start: 07-27-2021 History SDOH Alcohol Std Drinks 98 [facility] Start: 09-08-2020 History SDOH Alcohol Comment stopped 08/19/2017 [facility] Start: 07-27-2021 End: 05-11-2022 History SDOH Social Connections Phone 3 [facility] Start: 07-27-2021 End: 05-11-2022 History SDOH Social Connections Get Together 2 [facility] Start: 07-27-2021 History SDOH Social Connections Living 8 [facility] Start: 07-27-2021 End: 05-11-2022 History SDOH Physical Activity DPW 5 [facility] Start: 07-27-2021 History SDOH Financial 4 [facility] Start: 1989 Sex Assigned At Female C [facility] Start: 07-17-2021 End: 03-10-2022 Exposure to SARS-CoV-2 (event) Not sure [facility] Start: 11-22-2021 End: 12-02-2021 Exposure to SARS-CoV-2 (event) Unable to assess [facility] Start: 05-11-2022 History SDOH Alcohol Std Drinks 0 [facility] Start: 05-11-2022 History SDOH Physica l Activity DPW 7 [facility] Start: 09-20-2022 End: 05-13-2023 Tobacco smoking status NHIS Unknown if ever smoked [facility] Start: 07-19-2019 None [facility] Start: 09-18-2019 Non-smoker [facility] Start: 05-10-2022 End: 09-23-2022 History of Social function [facility] Start: 05-10-2022 End: 09-23-2022 Social connection and isolation panel [facility] Do you belong to any clubs or organizations such as gnosticist groups, unions, fraStream or athletic groups, or school groups? Yes [facility] Are you now , , , , never or living with a partner? [facility] How often to you hav e a drink containing alcohol? Never [facility] How many standard drinks containing alcohol do you have on a typical day? Patient does not drink [facility] How hard is it for y ou to pay for the very basics like food, housing, medical care, and heating Somewhat hard [facility] Do you feel stress - tense, restless, nervous, or anxious, or unable to sleep at night because your mind is troubled all the time - these days [OSQ] Only a little [facility] (I/We) worried wheth er (my/our) food would run out before (I/we) got money to buy more. Never true [facility] In the past 12 month s, was there a time when you were not able to pay the mortgage or rent on time? No [facility] Start: 08-07-2020 Gender identity Identifies as female gender (finding) [facility] Start: 08-07-2020 Sexual orientation Heterosexual (sameer medley) [facility] Do you feel stress - tense, restless, nervous, or anxious, or unable to sleep at night because your mind is troubled all the time - these days [OSQ] Very much [facility] NEGATED: Highlighted row [facility] Functional Status Date Assessment Result Facility 07-09-2021 Are you deaf, or do you have serious difficulty hearing No 07/09/2021 2:38 PM Dolly Perla RN No [facility] 07-09-2021 Are you blind, or do you have serious difficulty seeing, even when wearing glasses No 07/09/2021 2:38 PM Dolly Perla RN No [facility] 07-09-2021 Do you have serious difficulty walking or climbing stairs No 07/09/2021 2:38 PM Dolly Perla RN No [facility] 07-09-2021 Do you have difficul ty dressing or bathing No 07/09/2021 2:38 PM Dolly Perla RN No [facility] 07-09-2021 Because of a physica l, mental, or emotional condition, do you have difficulty doing errands alone such as visiting a physician's office or shopping No 07/09/2021 2:38 PM Dolly Perla RN No [facility] Mental Status Date Assessment Result Facility 09-20-2022 Cognitive function Level Of Cons ciousness Awake;Alert;Appropriate;Fol lows Commands [facility] Work Phone: 07-09-2021 Because of a physica l, mental, or emotional condition, do you have serious difficulty concentrating, remembering, or making decisions No 07/09/2021 2:38 PM Dolly Perla RN No [facility] Clinical Notes 01-01-2016 to 11-05-[address] - 11/05/2024 9:30 AM EDTTelephone Encounter - Corey Moyer RN - 10/29/2024 3:30 PM EDTTelephone Encounter - Corey Moyer RN - 10/29/2024 3:30 PM EDT Note Date & Type Note Facility 11-05-[address] - 11/05/2024 11:21 AM EDT Nutrition Action Plan 1. Protein: Continue to strive for >85 g protein per day. Eat protein first at all meals. Lean meats, low fat/part skim dairy products, peanut butter, eggs, beans. 2. Eat 4 small meals per day or 3 meals and 1-2 small snacks for additional protein; eat every 3-5 hours; choose a snack with a simple carbohydrate and some electrolytes prior to workouts and a healthy snack with a complex carb and protein before bed 3. Fluids: 64 oz per day, minimum. No carbonation, no caffeine, no calories, no alcohol. 4. Vitamin/minerals: Take daily multivitamin with 200 % daily value for all vitamin/minerals plus VIt D3 3,000 IU, Vit B12 500 mcg, Iron 45 mg and calcium citrate 3975-4714 mg/day -continue current regimen, and add in a generic once daily MVI 5. Exercise: strive for daily activity - continue current exercise with a goal of >200 minutes total between cardio and strength training per week 6. Practice these: Eat in this order protein first, vegetable and fruit second and whole grain carbohydrates last. * Separate eating and drinking by 30 minutes * Chew your food 20-30x per bite * Meals should last 30 minutes. 7. Continue tracking meals and snacks with an marlin; aim for 1209-9936 calories per day 8. Continue to work with your medical team to identify sources of low blood sugars and manage stressors Follow Up on 12/31 at 9:30 AM documented in this encounter [facility] 11-05-2024 History of Presen t illness Narrative [facility] Nutrition Therapy: Virtual Consult - Re-assessment I have communicated my name and active licensure. The patient s identity and physical location were verified at the time of this visit. Either the patient or their legal patient services representative has been informed of the risks and benefits of -- and alternatives to -- treatment through a remote evaluation and consents to proceed with the evaluation remotely. Nutrition Diagnosis: Altered Gastrointestinal Tract Function, related to, S/P bariatric surgery, as evidenced by patient report and past surgical history, Altered nutrition-related lab values, related to, inconsistent carbohydrate intake, as evidenced by reported blood sugar fluctuations and associated symptoms, and Overweight/obesity, related to, food/nutrition - related knowledge deficit, as evidenced by BMI above normative standard for age and gender RECOMMENDED MALNUTRITION DIAGNOSIS: NO MALNUTRITION IDENTIFIED NUTRITION CARE PLAN: Nutrition Intervention 11/05/2024: 1. Protein: Continue to strive for >85 g protein per day. Eat protein first at all meals. Lean meats, low fat/part skim dairy products, peanut butter, eggs, beans. 2. Eat 4 small meals per day or 3 meals and 1-2 small snacks for additional protein; eat every 3-5 hours; choose a snack with a simple carbohydrate and some electrolytes prior to workouts and a healthy snack with a complex carb and protein before bed 3. Fluids: 64 oz per day, minimum. No carbonation, no caffeine, no calories, no alcohol. 4. Vitamin/minerals: Take daily multivitamin with 200 % daily value for all vitamin/minerals plus VIt D3 3,000 IU, Vit B12 500 mcg, Iron 45 mg and calcium citrate 3030-1208 mg/day -continue current regimen, and add in a generic once daily MVI 5. Exercise: strive for daily activity - continue current exercise with a goal of >200 minutes total between cardio and strength training per week 6. Practice these: Eat in this order protein first, vegetable and fruit second and whole grain carbohydrates last. * Separate eating and drinking by 30 minutes * Chew your food 20-30x per bite * Meals should last 30 minutes. 7. Continue tracking meals and snacks with an marlin; aim for 4326-8818 calories per day 8. Continue to work with your medical team to identify sources of low blood sugars and manage stressors Nutrition Monitoring & Evaluation: BMI <35 Need for Follow up: [address] PROGRESS: >3 years post op RYGB ([place]) Net weight loss 155 lbs (380 lbs initial) Pre-surgery weight: 345 pounds 41 % TWL weight loss higher than expected 8 pounds weight gain since last assessment (217 lbs) Patient reports her BS have been inconsistent lately. She has been prescribed acarbose under the supervision of Dr. Isbell, which has made her feel sick and therefore been discontinued. Patient reports significant distress due to the situation, which may contribute to the inconsistencies in BS. This RD responded with HEART, and patient appreciated emotional support. Diet recall indicates a consistent meal pattern with regular meals and snacks. Patient reports fatigue, low BS, and intermittent nausea/vomiting. Symptoms may be associated with reactive hypoglycemia or electrolyte imbalances due to hard workouts and minimal electrolyte replacements. She confirms to eat slowly and separates fluids from foods as recommended. PA meets recommendations. ~0272-6882 calories/day excessive ~50 gm carbohydrates per day likely inadequate >120 gm protein intake/day Meets recommendations >100 oz fluid intake/day Meets recommendations Takes most recommended vitamin/minerals inadequate in some trace minerals Labs reveal normal hbA1c Resting Metabolic Rate: 1733 Energy needs for weight loss: 9287-4643 calories per day (10-15 kcal/kg CBW) Protein needs: 85 grams protein per day (1.2 g/kg IBW) Nutrition Intervention Sharyn Luis 07/13/24 1. Protein: Continue to strive for 85 g protein per day. Eat protein first at all meals. Lean meats, low fat/part skim dairy products, peanut butter, eggs, beans. MET 2. Eat 4 small meals per day or 3 meals and 1-2 small snacks for additional protein; eat every 3-5 hours choose 1 serving carbohydrate at snacks and 2 servings at meals IN PROGRESS 3. Fluids: 64 oz per day, minimum. No carbonation, no caffeine, no calories, no alcohol. MET 4. Vitamin/minerals: continue current supplements; recommend add in a once daily MVI IN PROGRESS 5. Exercise: strive for daily activity - combine strength training and cardio for best workouts. Goal is 30 minutes 5-6x per week. MET 6. Practice these: Eat in this order protein first, vegetable and fruit second and whole grain carbohydrates last. MET * Separate eating and drinking by 30 minutes * Chew your food 20-30x per bite * Meals should last 30 minutes. 7. Track meals and snacks with an marlin; aim for 5646-2530 calories per day IN PROGRESS Actions to implement interventions: see assessment Diet History: Breakfast - 2 egg whites and 1 egg (17 gm pro per patient) and sometimes 1 cheese stick Snack - algerian yogurt (15 gm pro) Lunch - jocko protein powder (22 gm pro) mixed with 10 oz unsweetened coconut milk OR 3 thin slices turkey wrapped with cheese (10 gm pro) Snack - jocko protein powder (22 gm pro) mixed with 10 oz unsweetened coconut milk OR chomps beef sticks (10 gm pro) OR veggies and dip Dinner - 3-4 oz fish/chicken/pork/ground beef (21-28 gm pro), vegetables Snack - none OR protein powder mixed with unsweetened coconut milk (22 gm pro) Beverages - ~80-100 oz water Alcohol - none Vitamins/Supplements - 47917 international unit(s) vitamin A, 4000 international unit(s) vitamin D, vitamin B complex, 65 mg iron, 1800 mg calcium Activity: Activities of Daily Living: Active 75% of the day. 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 Malnutrition Screening Significant unintentional weight loss? No Eating less than 75% of usual intake for more than 2 weeks? No Potential Signs of Inflammation: no identifiable sources Food Insecurity Screening: Food Insecurity: No Food Insecurity (11/05/2024) Hunger Vital Sign Worried About Running Out of Food in the Last Year: Never true Ran Out of Food in the Last Year: Never true Education Materials Provided: Snack Ideas READINESS TO LEARN Cognitive ability: Alert and oriented Motivation to learn: Eager Family support: High - Very involved in pt care Instruction provided to: Patient Patient learns best by: Multiple Methods Factors affecting learning: None Physical limitations affecting learning: None Likelihood of Adherence: High Referred by: Ana HWANG Billing Type: Re-assess 3 units Time spent with patient: 45 minutes SIGNATURE: Stef Luis RD PATIENT NAME: Mary Burrell DATE: November 05, 2024 TIME: 11:21 PM documented in this encounter [facility] 11-05-2024 Note HNO ID: [id number] Author: STEF LUIS RD Service: ? Author Type: Registered Dietitian Type: Progress Notes Filed: 11/05/2024 11:24 Note Text: [facility] Nutrition Therapy: Virtual Consult - Re-assessment I have communicated my name and active licensure. The patient?s identity and physical location were verified at the time of this visit. Either the patient or their legal patient services representative has been informed of the risks and benefits of -- and alternatives to -- treatment through a remote evaluation and consents to proceed with the evaluation remotely. Nutrition Diagnosis: Altered Gastrointestinal Tract Function, related to, S/P bariatric surgery, as evidenced by patient report and past surgical history, Altered nutrition-related lab values, related to, inconsistent carbohydrate intake, as evidenced by reported blood sugar fluctuations and associated symptoms, and Overweight/obesity, related to, food/nutrition - related knowledge deficit, as evidenced by BMI above normative standard for age and gender RECOMMENDED MALNUTRITION DIAGNOSIS: NO MALNUTRITION IDENTIFIED NUTRITION CARE PLAN: Nutrition Intervention 11/05/2024: 1. Protein: Continue to strive for >85 g protein per day. Eat protein first at all meals. Lean meats, low fat/part skim dairy products, peanut butter, eggs, beans. 2. Eat 4 small meals per day or 3 meals and 1-2 small snacks for additional protein; eat every 3-5 hours; choose a snack with a simple carbohydrate and some electrolytes prior to workouts and a healthy snack with a complex carb and protein before bed 3. Fluids: 64 oz per day, minimum. No carbonation, no caffeine, no calories, no alcohol. 4. Vitamin/minerals: Take daily multivitamin with 200 % daily value for all vitamin/minerals plus VIt D3 3,000 IU, Vit B12 500 mcg, Iron 45 mg and calcium citrate 0588-7506 mg/day -continue current regimen, and add in a generic once daily MVI 5. Exercise: strive for daily activity - continue current exercise with a goal of >200 minutes total between cardio and strength training per week 6. Practice these: Eat in this order protein first, vegetable and fruit second and whole grain carbohydrates last. * Separate eating and drinking by 30 minutes * Chew your food 20-30x per bite * Meals should last 30 minutes. 7. Continue tracking meals and snacks with an marlin; aim for 5566-0716 calories per day 8. Continue to work with your medical team to identify sources of low blood sugars and manage stressors Nutrition Monitoring AND Evaluation: BMI <35 Need for Follow up: [address] PROGRESS: >3 years post op RYGB ([place]) Net weight loss 155 lbs (380 lbs initial) Pre-surgery weight: 345 pounds 41 % TWL weight loss higher than expected 8 pounds weight gain since last assessment (217 lbs) Patient reports her BS have been inconsistent lately. She has been prescribed acarbose under the supervision of Dr. Isbell, which has made her feel sick and therefore been discontinued. Patient reports significant distress due to the situation, which may contribute to the inconsistencies in BS. This RD responded with HEART, and patient appreciated emotional support. Diet recall indicates a consistent meal pattern with regular meals and snacks. Patient reports fatigue, low BS, and intermittent nausea/vomiting. Symptoms may be associated with reactive hypoglycemia or electrolyte imbalances due to hard workouts and minimal electrolyte replacements. She confirms to eat slowly and separates fluids from foods as recommended. PA meets recommendations. ~1343-1456 calories/day excessive ~50 gm carbohydrates per day likely inadequate >120 gm protein intake/day Meets recommendations >100 oz fluid intake/day Meets recommendations Takes most recommended vitamin/minerals inadequate in some trace minerals Labs reveal normal hbA1c Resting Metabolic Rate: 1733 Energy needs for weight loss: 0742-1599 calories per day (10-15 kcal/kg CBW) Protein needs: 85 grams protein per day (1.2 g/kg IBW) Nutrition Intervention A Annamaria 07/13/24 1. Protein: Continue to strive for 85 g protein per day. Eat protein first at all meals. Lean meats, low fat/part skim dairy products, peanut butter, eggs, beans. MET 2. Eat 4 small meals per day or 3 meals and 1-2 small snacks for additional protein; eat every 3-5 hours choose 1 serving carbohydrate at snacks and 2 servings at meals IN PROGRESS 3. Fluids: 64 oz per day, minimum. No carbonation, no caffeine, no calories, no alcohol. MET 4. Vitamin/minerals: continue current supplements; recommend add in a once daily MVI IN PROGRESS 5. Exercise: strive for daily activity - combine strength training and cardio for best workouts. Goal is 30 minutes 5-6x per week. MET 6. Practice these: Eat in this order protein first, vegetable and fruit second and whole grain carbohydrates last. MET * Separate eating and drinking (more content not included)... [facility] 10-29-2024 Telephone encounter Note ANNIKA 08/09/24 12/20/24 [facility] 10-29-2024 Miscellaneous Notes ANNIKA 08/09/24 MAR 16/25 documented in this encounter [facility] 08-09-2024 Note HNO ID: [id number] Author: INGA FERGUSON MA Service: ? Author Type: Washing Machine Loader And Puller Type: Procedures Filed: 08/09/2024 16:17 Note Text: [facility] 08-09-2024 Procedure note Procedure(s): EXTERNAL BALANCE RECESSER, CGM SYS Images from the original note were not included. [facility] 08-09-2024 Procedure note Procedure(s): EXTERNAL BALANCE RECESSER, CGM SYS Images from the original note were not included. documented in this encounter [facility] 08-09-2024 History of Presen t illness Narrative Images from the original note were not included. [facility] RETURN VISIT HISTORY OF PRESENT ILLNESS: Mary is a pleasant 34 year old female with a PMH of lung nodule, GERD, depression. Patient comes today for follow up of post bariatric surgery hypoglycemia. Index Surgery Date of Surgery: 07/07/2021 Surgeon: Phyllis Suresh MD Surgical Procedure: LAPAROSCOPIC GASTRIC RESTRICTIVE SURG W/ BYPASS & FRANCISCA-EN-Y 150CM OR LESS Pre-surgical weight: 156.5 kg (345 lb) 413 lbs Lowest weight 192 lbs [place] weight: 72.4 kg (159 lb 11 oz) Excess weight: 84.1 kg (185 lb 5 oz) % of excess body weight lost: 156.5 kg (345 lb) (186.17% of excess weight loss) Interval history: Fasting labs (after 15 hrs of fasting) with no hypoglycemia. Started on Dexcom at last visit. Continues to have daily low blood sugar. Reviewing her CGM download: Average BG of 92 mg/dl, GMI 5.5%, high 1%, low 8% and very lowe 2% Low blood sugar are mainly post prandial after breakfast around 8-9 am and after lunch around 3-4 pm. Yesterday her BG went up to 300 mg/dL and then went down to the 40s and she stays low for a while. Down to the 30s two times since last visit. A1c today at 5.1% Obesity Medications: DIET INTAKE: Does not have a huge appetite. Drinks 3/4-1 gallon a day of water Wakes up at 3-4 am: not doing creatine as it has sugar in it, and vitamin B12 She works out for an hour to an hour and half: strength and cardio Home at 6 am and protein shake with stavia, egg shake with pepper, coffee one cup a day with stavia At 8 am: multi-grain bread with organic cane sugar with avocado, turkey deli meat and cheese. At noon: algerian yogurt with berries , beef jerky No snacks. Water and protein yogurt. Dinner at 7 pm: protein and veggies No alcohol Switched to decaf caffeine. Sometimes sips water after food. DAILY SUPPLEMENTS: Yes Calcium: Calcium Citrate w/ vitamin D (1200 - 1500mg) 3 tablets daily Multivitamin & Minerals: 1 per day Iron Supplement: 65 mg daily Vitamin B12: one dissolvable pill: not anymore because of sugary. Vitamin D3: 4000 IU Other: vitamin A, B complex EXERCISE: She works out for an hour to an hour and half: strength and cardio SLEEP: MARIAM No , CPAP No REVIEW OF SYSTEMS: Reviewed: negative except for HPI MEDICATIONS: Current Outpatient Medications on File Prior to Visit Medication Sig Blood-Glucose Meter,Continuous (DEXCOM G7 BALANCE RECESSER) misc 1 Each as directed. Blood-Glucose Sensor (DEXCOM G7 SENSOR) allison 1 Each every 10 days. glucagon 3 mg/actuation nasal spray (BAQSIMI) Use 1 [place] in the nose as needed for low blood sugar. May repeat after 15 minutes using a new device if there is no response. Magnesium Oxide 500 mg cap Take 1 capsule by mouth once daily. Creatinine, Bulk, 100 % powd 1,500 mg once daily. (Patient not taking: Reported on 02/14/2024) amitriptyline (ELAVIL) 10 mg tablet Take 2 tablets by mouth daily at bedtime. vitamin A (AQUASOL A) 10,000 unit capsule Take 10,000 Units by mouth once daily. ferrous sulfate (IRON) 325 mg (65 mg iron) tablet Take 325 mg by mouth once daily. Cyanocobalamin 2,500 mcg subl Take 1 tablet by mouth once daily. Cholecalciferol, Vitamin D3, (VITAMIN D-3) 50 mcg (2,000 unit) cap Take 1 capsule by mouth once daily. calcium carbonate (CALCIUM 600 ORAL) Take 3 tablets by mouth once daily. (1800 daily) No current facility-administered medications on file prior to visit. SIGNIFICANT PAST MEDICAL HISTORY, SOCIAL HISTORY AND FAMILY HISTORY: PAST MEDICAL HISTORY Diagnosis Date Abnormal Pap smear of cervix Class 3 severe obesity without serious comorbidity with body mass index (BMI) of 60.0 to 69.9 in adult (HCC) 10/07/2009 Esophagitis, unspecified High grade squamous intraepithelial lesion of cervix 01/01/2016 Iron deficiency 02/06/2021 Neck mass fatty deposit depression FAMILY HISTORY Problem Relation Age of Onset Obesity Mother Diabetes Mother Heart Mother Hypertension Mother Blood Disease Father Arthritis Father Obesity Father Cancer Maternal Grandmother lung and liver Kidney Disease Maternal Grandfather Emphysema Paternal Grandmother Diabetes Maternal Uncle Coronary Artery Disease Maternal Uncle Collin Disease Paternal Aunt Collin Disease Paternal cousin Social History Tobacco Use Smoking status: Former Current packs/day: 0.00 Types: Cigarettes Start date: 05/25/2006 Quit date: 11/23/2006 Years since quittin.7 Smokeless tobacco: Never Vaping Use Vaping status: Never Used Substance Use Topics Alcohol use: Not Currently Comment: stopped 08/19/2017 Drug use: No PHYSICAL EXAM: Mary Burrell is a 34 year old year old female who looks her stated age. Vital Signs BP 127/79 Pulse 79 Wt 101.6 kg (223 lb 15.8 oz) LMP 08/28/2020 (Exact Date) BMI 35.08 kg/m General: no acute distress Eyes: extra ocular movements intact, no redness ENT/Neck: thyroid is palpable, normal size Heart: regular rate and rhythm, no murmurs, rubs or gallops Chest: clear to auscultation bilaterally, no wheezing, Abd: benign, no pain on palpation Skin: no obvious skin lesions, no rashes Psychiatric: normal affect, humor is preserved Neuro: grossly non focal, AOx3 PERTINENT LABORATORY AND IMAGING:All pertinent laboratory results were reviewed. Please see HPI for further details. IMPRESSION/PLAN: Encounter Diagnosis ICD-10-CM 1. Class 2 severe obesity with serious comorbidity and body mass index (BMI) of 35.0 to 35.9 in adult, unspecified obesity type (HCC) E66.812 HEMOGLOBIN A1C (POC) E66.01 acarbose (PRECOSE) 25 mg tablet Z68.35 HOME BLOOD GLUCOSE MONITOR 2. Hypoglycemia after GI (gastrointestinal) surgery ([facility]) K91.2 acarbose (PRECOSE) 25 mg tablet HOME BLOOD GLUCOSE MONITOR 34 year old female with Class I obesity 3 years s/p LAPAROSCOPIC GASTRIC RESTRICTIVE SURG W/ BYPASS & FRANCISCA-EN-Y 150CM OR LESS. Total program weight loss of 221 lbs or 53.5% TBW with recent weight regain. PMH is also significant for lung nodule, GERD, depression. Body mass index is 35.08 kg/m . 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 Reports mindful food choices, however, there is concern for increased intake of high glycemic index CHO (breakfast bread with cane sugar) and fluids with meals. Previous 16 hour fast labs with no hypoglycemia. Reviewed with family pathophysiology of hypoglycemia post-op and principles of management. We reviewed available management options (nutrition, medications and surgery). Reviewed dietary recommendations to prevent hypoglycemia. Taking supplements. Physical activity at the recommended level. Plan: -- Discussed adding heart healthy oils to meals and avoiding high glycemic index CHO. -- Start Acarbose 25 mg tablet with each meal and snack. Can go up to two tablets with meals. Reviewed basics of hypoglycemia management when on acarbose (dextrose tablets, milk or honey) -- Consider 24 hour fast if continues to experience low blood sugar on acarbose -- In case of severe hypoglycemia; Glucagon nasal powder was prescribed and sent to local pharmacy. -- Follow up in 2-3 months All questions answered today. Manuela Isbell MD Endocrinology and Metabolism [facility] I spent a total of 60 minutes on the date of the service which included preparing to see the patient, [id number] patient care, completing clinical documentation, obtaining and/or reviewing separately obtained history, performing a medically appropriate examination, counseling and educating the patient/family/caregiver, and ordering medications, tests, or procedures. documented in this encounter [facility] 08-09-2024 Note HNO ID: [id number] Author: MANUELA ISBELL MD Service: ? Author Type: Physician Type: Progress Notes Filed: 08/22/2024 11:07 Note Text: [facility] RETURN VISIT HISTORY OF PRESENT ILLNESS: Mary is a pleasant 34 year old female with a PMH of lung nodule, GERD, depression. Patient comes today for follow up of post bariatric surgery hypoglycemia. Index Surgery Date of Surgery: 07/07/2021 Surgeon: Phyllis Suresh MD Surgical Procedure: LAPAROSCOPIC GASTRIC RESTRICTIVE SURG W/ BYPASS AND FRANCISCA-EN-Y 150CM OR LESS Pre-surgical weight: 156.5 kg (345 lb) 413 lbs Lowest weight 192 lbs [place] weight: 72.4 kg (159 lb 11 oz) Excess weight: 84.1 kg (185 lb 5 oz) % of excess body weight lost: 156.5 kg (345 lb) (186.17% of excess weight loss) Interval history: Fasting labs (after 15 hrs of fasting) with no hypoglycemia. Started on Dexcom at last visit. Continues to have daily low blood sugar. Reviewing her CGM download: Average BG of 92 mg/dl, GMI 5.5%, high 1%, low 8% and very lowe 2% Low blood sugar are mainly post prandial after breakfast around 8-9 am and after lunch around 3-4 pm. Yesterday her BG went up to 300 mg/dL and then went down to the 40s and she stays low for a while. Down to the 30s two times since last visit. A1c today at 5.1% Obesity Medications: DIET INTAKE: Does not have a huge appetite. Drinks 3/4-1 gallon a day of water Wakes up at 3-4 am: not doing creatine as it has sugar in it, and vitamin B12 She works out for an hour to an hour and half: strength and cardio Home at 6 am and protein shake with stavia, egg shake with pepper, coffee one cup a day with stavia At 8 am: multi-grain bread with organic cane sugar with avocado, turkey deli meat and cheese. At noon: algerian yogurt with berries , beef jerky No snacks. Water and protein yogurt. Dinner at 7 pm: protein and veggies No alcohol Switched to decaf caffeine. Sometimes sips water after food. DAILY SUPPLEMENTS: Yes Calcium: Calcium Citrate w/ vitamin D (1200 - 1500mg) 3 tablets daily Multivitamin AND Minerals: 1 per day Iron Supplement: 65 mg daily Vitamin B12: one dissolvable pill: not anymore because of sugary. Vitamin D3: 4000 IU Other: vitamin A, B complex EXERCISE: She works out for an hour to an hour and half: strength and cardio SLEEP: MARIAM No , CPAP No REVIEW OF SYSTEMS: Reviewed: negative except for HPI MEDICATIONS: Current Outpatient Medications on File Prior to Visit Medication Sig Blood-Glucose Meter,Continuous (DEXCOM G7 BALANCE RECESSER) misc 1 Each as directed. Blood-Glucose Sensor (DEXCOM G7 SENSOR) allison 1 Each every 10 days. glucagon 3 mg/actuation nasal spray (BAQSIMI) Use 1 [place] in the nose as needed for low blood sugar. May repeat after 15 minutes using a new device if there is no response. Magnesium Oxide 500 mg cap Take 1 capsule by mouth once daily. Creatinine, Bulk, 100 % powd 1,500 mg once daily. (Patient not taking: Reported on 02/14/2024) amitriptyline (ELAVIL) 10 mg tablet Take 2 tablets by mouth daily at bedtime. vitamin A (AQUASOL A) 10,000 unit capsule Take 10,000 Units by mouth once daily. ferrous sulfate (IRON) 325 mg (65 mg iron) tablet Take 325 mg by mouth once daily. Cyanocobalamin 2,500 mcg subl Take 1 tablet by mouth once daily. Cholecalciferol, Vitamin D3, (VITAMIN D-3) 50 mcg (2,000 unit) cap Take 1 capsule by mouth once daily. calcium carbonate (CALCIUM 600 ORAL) Take 3 tablets by mouth once daily. (1800 daily) No current facility-administered medications on file prior to visit. SIGNIFICANT PAST MEDICAL HISTORY, SOCIAL HISTORY AND FAMILY HISTORY: PAST MEDICAL HISTORY Diagnosis Date Abnormal Pap smear of cervix Class 3 severe obesity without serious comorbidity with body mass index (BMI) of 60.0 to 69.9 in adult ([facility]) 10/07/2009 Esophagitis, unspecified High grade squamous intraepithelial lesion of cervix 01/01/2016 Iron deficiency 02/06/2021 Neck mass fatty deposit depression FAMILY HISTORY Problem Relation Age of Onset Obesity Mother Diabetes Mother Heart Mother Hypertension Mother Blood Disease Father Arthritis Father Obesity Father Cancer Maternal Grandmother lung and liver Kidney Disease Maternal Grandfather Emphysema Paternal Grandmother Diabetes Maternal Uncle Coronary Artery Disease Maternal Uncle Collin Disease Paternal Aunt Collin Disease Paternal cousin Social History Tobacco Use Smoking status: Former Current packs/day: 0.00 Types: Cigarettes Start date: 05/25/2006 Quit date: 11/23/2006 Years since quittin.7 Smokeless tobacco: Never Vaping Use Vaping status: Never Used Substance Use Topics Alcohol use: Not Currently Comment: stopped 08/19/2017 Drug use: No PHYSICAL EXAM: Mary Burrell is a 34 year old year old female who looks her stated age. Vital Signs BP 127/79 (more content not included)... [facility] 08-09-2024 Instructions Manuela Isbell MD - 08/09/2024 9:52 AM EDT Thank you for choosing the [facility] Department of Endocrinology, Diabetes and Metabolism. Did you know that you need to call 48 hours in advance of your scheduled visit, if you are unable to make your appointment? The Endocrinology and Metabolism [place] thanks you for your commitment, because patients not showing to their appointment results in a lost opportunity for patients to receive [facility] health care at the [facility]. To Cancel an appointment, please choose one of the following: - Call the Appointment Call Center at [phone] - From [employer], Go to Appointments - Cancel Appts If cancelling, consider your need to reschedule to prevent further delays in your care. To Schedule an appointment, please choose one of the following: - Call the Appointment Call Center at [phone] - From [employer], Go to Appointments - Request an Appt It was nice seeing you today, Mary! Start Acarbose 25 mg tablet with each meal and snack. Can go up to two tablets with meals. If hypoglycemia does occur while taking acarbose, you must use one of the following: dextrose (4 tabs); honey (1 Tbsp); or milk (1 cup). Sugars that are typically used to treat hypoglycemia (e.g. table sugar, juice, regular soft drink, sugar candy) will not be effective because of the way acarbose works. Consider 24 hour fast if continues to experience low blood sugar on acarbose Emergency treatment for severe low blood sugar if not able to eat/drink: Glucagon nasal powder is a treatment for people who have severely low blood sugar. To use it, you insert the device deep into one nostril and then press the plunger to release the medication. The most common side effect is a bloody nose and body pain. 10-Point Nutrition Plan for Preventing Hypoglycemia in Post-Bariatric Hypoglycemia. Control portions of carbohydrate - 30 grams/meal, 15 grams/snack. Choose low-glycemic carbohydrates. Avoid high-glycemic carbohydrates. Include (heart-healthy) fats in each meal or snack - 15 grams/meal, 5 grams/snack. Emphasize optimal protein intake. Space meals/snacks 3-4 hours apart. Avoid consuming liquids with meals. Avoid alcohol. Avoid caffeine. Low Glycemic Index Carbohydrates (CHOOSE) Steel-cut oats (regular, not quick-cook or instant) Oat bran cereal Beans/legumes (e.g., garbanzo, navy, kidney, berry, gill, black-eyed and pea beans, edamame (soybeans), lentils Maya products (e.g., hummus, tofu) Pearled barley, cooked al dente Yams Some fruits (e.g., grapefruit, apples, pears, berries, apricots, peaches) Some pasta (e.g., Barilla Plus pasta), cooked al dente Some whole grain breads (e.g., Jae bread, Rodger s Flax, Oat Bran & Whole Wheat Amna/Lavash/Tortillas) Some whole grain crackers (e.g., RyKrisp, RyVita, Wasa) High Glycemic Index Carbohydrates (AVOID) Refined breakfast cereals (e.g., Tustin Flakes, Rice Krispies, Cream of Rice, instant oatmeal) Regular pasta Most starchy vegetables (e.g., white potatoes, corn, winter (orange) squash) White rice, rice cakes Popcorn, pretzels, chips Some fruits (e.g., ripe bananas, pineapple, yael, watermelon, grapes) All fruit juices and sweetened drinks (e.g., sodas, sweetened iced tea) Bread, rolls, bagels, Nigerian muffins, and crackers made with refined flour Sweets (e.g., candy, cake, cookies, ice cream, syrup) Heart-Healthy Fats Nuts, nut butters Avocado, guacamole Olives Most plant oils (e.g., olive, canola, peanut, soy, sunflower, sesame) Most seeds (e.g., sunflower, flax, sesame/sesame tahini) Oily fish (e.g., salmon, bluefish, mackerel, tuna, sardines) documented in this encounter [facility] 07-13-2024 Instructions Stef Luis, MIRI - 07/13/2024 2:08 PM EST Nutrition Action Plan 1. Protein: Continue to strive for 85 g protein per day. Eat protein first at all meals. Lean meats, low fat/part skim dairy products, peanut butter, eggs, beans. 2. Eat 4 small meals per day or 3 meals and 1-2 small snacks for additional protein; eat every 3-5 hours choose 1 serving carbohydrate at snacks and 2 servings at meals 3. Fluids: 64 oz per day, minimum. No carbonation, no caffeine, no calories, no alcohol. 4. Vitamin/minerals: continue current supplements; recommend add in a once daily MVI 5. Exercise: strive for daily activity - combine strength training and cardio for best workouts. Goal is 30 minutes 5-6x per week. 6. Practice these: Eat in this order protein first, vegetable and fruit second and whole grain carbohydrates last. * Separate eating and drinking by 30 minutes * Chew your food 20-30x per bite * Meals should last 30 minutes. 7. Track meals and snacks with an marlin; aim for 3430-4333 calories per day Folow Up on 10/12 at 1:30 PM documented in this encounter [facility] 07-13-2024 History of Presen t illness Narrative The [facility] Nutrition Therapy: Virtual Consult - Re-assessment I have communicated my name and active licensure. The patient s identity and physical location were verified at the time of this visit. Either the patient or their legal patient services representative has been informed of the risks and benefits of -- and alternatives to -- treatment through a remote evaluation and consents to proceed with the evaluation remotely. Nutrition Diagnosis: Inconsistent carbohydrate intake, related to, lifestyle factors that interfere with the ability to regulate timing of carbohydrate consumption, as evidenced by patient report, diet recall, and CGM readings, Altered Gastrointestinal Tract Function, related to, S/P bariatric surgery, as evidenced by patient report and past surgical history and Overweight/obesity, related to, food/nutrition - related knowledge deficit, as evidenced by BMI above normative standard for age and gender RECOMMENDED MALNUTRITION DIAGNOSIS: NO MALNUTRITION IDENTIFIED NUTRITION CARE PLAN: Nutrition Intervention 07/13/2024: 1. Protein: Continue to strive for 85 g protein per day. Eat protein first at all meals. Lean meats, low fat/part skim dairy products, peanut butter, eggs, beans. 2. Eat 4 small meals per day or 3 meals and 1-2 small snacks for additional protein; eat every 3-5 hours choose 1 serving carbohydrate at snacks and 2 servings at meals 3. Fluids: 64 oz per day, minimum. No carbonation, no caffeine, no calories, no alcohol. 4. Vitamin/minerals: continue current supplements; recommend add in a once daily MVI 5. Exercise: strive for daily activity - combine strength training and cardio for best workouts. Goal is 30 minutes 5-6x per week. 6. Practice these: Eat in this order protein first, vegetable and fruit second and whole grain carbohydrates last. * Separate eating and drinking by 30 minutes * Chew your food 20-30x per bite * Meals should last 30 minutes. 7. Track meals and snacks with an marlin; aim for 5771-1995 calories per day Nutrition Monitoring & Evaluation: BMI <30 Need for Follow up: 3 months as scheduled PROGRESS: 3 years post op RYGB ([place]) Net weight loss 163 lbs (380 lbs initial) Pre-surgery weight: 345 pounds 43 % TWL weight loss higher than expected >1 pounds weight loss since last assessment (218 lbs 0.6 oz) Patient takes Phentermine under the supervision of Ping Ansari CNP. Did not discuss her experience of the medication at this session. Patient has pearl experiencing intermittent low blood sugars recently. She currently wears a CGM to track her sugars. Diet recall indicates a mostly consistent meal pattern with regular meals and snacks. Patient reports her sugars drop sometimes a few hours after eating, suggesting she may be waiting too long to have her next meal snack. She tolerates Phase V diet plan with no other complaints. Patient confirms to eat slowly and separates fluids from foods as recommended. Current PA meets recommendations. ~1500 calories/day Meets recommendations >85 gm protein intake/day Meets recommendations >1 gallon fluid intake/day Meets recommendations Consistent with appropriate vitamin/minerals inadequate in some trace minerals Labs reveal NNL Resting Metabolic Rate: 1713 Energy needs for weight loss: 5360-2396 calories per day (15-20 kcal/kg CBW) Protein needs: 85 grams protein per day (1.2 g/kg IBW) Nutrition Intervention A Annamaria 04/09/24 1. Protein: Continue to strive for 85 g protein per day. Eat protein first at all meals. Lean meats, low fat/part skim dairy products, peanut butter, eggs, beans. MET 2. Eat 4 small meals per day or 3 meals and 1-2 small snacks for additional protein IN PROGRESS 3. Fluids: 64 oz per day, minimum. No carbonation, no caffeine, no calories, no alcohol. MET 4. Vitamin/minerals: Take daily multivitamin with 200 % daily value for all vitamin/minerals plus VIt D3 3,000 IU, Vit B12 500 mcg, Iron 45 mg and calcium citrate 0928-0255 mg/day . It is okay to use combination vitamin/minerals to reduce pill volume. Page 49 of Your Guide to Surgery IN PROGRESS 5. Exercise: strive for daily activity - combine strength training and cardio for best workouts. Goal is 30 minutes 5-6x per week. MET 6. Practice these: Eat in this order protein first, vegetable and fruit second and whole grain carbohydrates last. MET * Separate eating and drinking by 30 minutes * Chew your food 20-30x per bite * Meals should last 30 minutes. 7. Continue tracking meals and snacks with an marlin; aim for 2649-8424 calories per day MET Actions to implement interventions: see assessment Diet History: Breakfast - jocko protein powder (22 gm pro) mixed with 10 oz unsweetened coconut milk and egg bake with peppers and sausage (13 gm pro) Snack - none OR 1/2 apple with PB (6 gm pro) OR algerian yogurt (15 gm pro) Lunch - 3 oz lean meat (21 gm pro), vegetables Snack - none Dinner - 3-4 lean meat (21-28 gm pro), vegetables Snack - none Beverages - ~1 gallon water Alcohol - none Vitamins/Supplements - 02737 international unit(s) vitamin A, 4000 international unit(s) vitamin D, vitamin B complex, 65 mg iron, 1800 mg calcium Activity: Activities of Daily Living: Active 90%%+ of the day. 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 Resting Metabolic Rate: 1745 Malnutrition Screening Significant unintentional weight loss? No Eating less than 75% of usual intake for more than 2 weeks? No Potential Signs of Inflammation: no identifiable sources Education Materials Provided: reactive hypoglycemia s/p MBS READINESS TO LEARN Cognitive ability: Alert and oriented Motivation to learn: Eager Family support: High - Very involved in pt care Instruction provided to: Patient Patient learns best by: Multiple Methods Factors affecting learning: None Physical limitations affecting learning: None Likelihood of Adherence: High Referred by: Ana HWANG Billing Type: Re-assess/15 min 2 units SIGNATURE: Stef Luis RD PATIENT NAME: Mary Burrell DATE: July 13, 2024 TIME: 2:07 PM documented in this encounter [facility] 07-13-2024 Note HNO ID: [id number] Author: STEF LUIS RD Service: ? Author Type: Registered Dietitian Type: Progress Notes Filed: 07/13/2024 14:08 Note Text: [facility] Nutrition Therapy: Virtual Consult - Re-assessment I have communicated my name and active licensure. The patient?s identity and physical location were verified at the time of this visit. Either the patient or their legal patient services representative has been informed of the risks and benefits of -- and alternatives to -- treatment through a remote evaluation and consents to proceed with the evaluation remotely. Nutrition Diagnosis: Inconsistent carbohydrate intake, related to, lifestyle factors that interfere with the ability to regulate timing of carbohydrate consumption, as evidenced by patient report, diet recall, and CGM readings, Altered Gastrointestinal Tract Function, related to, S/P bariatric surgery, as evidenced by patient report and past surgical history and Overweight/obesity, related to, food/nutrition - related knowledge deficit, as evidenced by BMI above normative standard for age and gender RECOMMENDED MALNUTRITION DIAGNOSIS: NO MALNUTRITION IDENTIFIED NUTRITION CARE PLAN: Nutrition Intervention 07/13/2024: 1. Protein: Continue to strive for 85 g protein per day. Eat protein first at all meals. Lean meats, low fat/part skim dairy products, peanut butter, eggs, beans. 2. Eat 4 small meals per day or 3 meals and 1-2 small snacks for additional protein; eat every 3-5 hours choose 1 serving carbohydrate at snacks and 2 servings at meals 3. Fluids: 64 oz per day, minimum. No carbonation, no caffeine, no calories, no alcohol. 4. Vitamin/minerals: continue current supplements; recommend add in a once daily MVI 5. Exercise: strive for daily activity - combine strength training and cardio for best workouts. Goal is 30 minutes 5-6x per week. 6. Practice these: Eat in this order protein first, vegetable and fruit second and whole grain carbohydrates last. * Separate eating and drinking by 30 minutes * Chew your food 20-30x per bite * Meals should last 30 minutes. 7. Track meals and snacks with an marlin; aim for 1483-4069 calories per day Nutrition Monitoring AND Evaluation: BMI <30 Need for Follow up: 3 months as scheduled PROGRESS: 3 years post op RYGB ([place]) Net weight loss 163 lbs (380 lbs initial) Pre-surgery weight: 345 pounds 43 % TWL weight loss higher than expected >1 pounds weight loss since last assessment (218 lbs 0.6 oz) Patient takes Phentermine under the supervision of Ping Ansari CNP. Did not discuss her experience of the medication at this session. Patient has pearl experiencing intermittent low blood sugars recently. She currently wears a CGM to track her sugars. Diet recall indicates a mostly consistent meal pattern with regular meals and snacks. Patient reports her sugars drop sometimes a few hours after eating, suggesting she may be waiting too long to have her next meal snack. She tolerates Phase V diet plan with no other complaints. Patient confirms to eat slowly and separates fluids from foods as recommended. Current PA meets recommendations. ~1500 calories/day Meets recommendations >85 gm protein intake/day Meets recommendations >1 gallon fluid intake/day Meets recommendations Consistent with appropriate vitamin/minerals inadequate in some trace minerals Labs reveal NNL Resting Metabolic Rate: 1713 Energy needs for weight loss: 3291-1298 calories per day (15-20 kcal/kg CBW) Protein needs: 85 grams protein per day (1.2 g/kg IBW) Nutrition Intervention A Annamaria 04/09/24 1. Protein: Continue to strive for 85 g protein per day. Eat protein first at all meals. Lean meats, low fat/part skim dairy products, peanut butter, eggs, beans. MET 2. Eat 4 small meals per day or 3 meals and 1-2 small snacks for additional protein IN PROGRESS 3. Fluids: 64 oz per day, minimum. No carbonation, no caffeine, no calories, no alcohol. MET 4. Vitamin/minerals: Take daily multivitamin with 200 % daily value for all vitamin/minerals plus VIt D3 3,000 IU, Vit B12 500 mcg, Iron 45 mg and calcium citrate 3802-2087 mg/day . It is okay to use combination vitamin/minerals to reduce pill volume. Page 49 of Your Guide to Surgery IN PROGRESS 5. Exercise: strive for daily activity - combine strength training and cardio for best workouts. Goal is 30 minutes 5-6x per week. MET 6. Practice these: Eat in this order protein first, vegetable and fruit second and whole grain carbohydrates last. MET * Separate eating and drinking by 30 minutes * Chew your food 20-30x per bite * Meals should last 30 minutes. 7. Continue tracking meals and snacks with an marlin; aim for 1470-1142 calories per day MET Actions to implement interventions: see assessment Diet History: Breakfast - jocko protein powder (22 gm pro) mixed with 10 oz unsweetened coconut milk and egg bake with peppers and sausage ( (more content not included)... [facility] 07-09-2024 Telephone encounter Note Called patient and left voicemail to notify of scheduled appointment [facility] 07-09-2024 Miscellaneous Notes Called patient and left voicemail to notify of scheduled appointment documented in this encounter [facility] 07-04-2024 Instructions Manuela Isbell MD - 07/04/2024 4:02 PM EST It was nice meeting you today, Mary! We will obtain fasting labs to evaluate your insulin levels. Please find dietary instructions below. If continues to have low blood sugars despite dietary changes, please let us know so we can start Acarbose. Emergency treatment for severe low blood sugar if not able to eat/drink: Glucagon nasal powder is a treatment for people who have severely low blood sugar. To use it, you insert the device deep into one nostril and then press the plunger to release the medication. The most common side effect is a bloody nose and body pain. 10-Point Nutrition Plan for Preventing Hypoglycemia in Post-Bariatric Hypoglycemia. Control portions of carbohydrate - 30 grams/meal, 15 grams/snack. Choose low-glycemic carbohydrates. Avoid high-glycemic carbohydrates. Include (heart-healthy) fats in each meal or snack - 15 grams/meal, 5 grams/snack. Emphasize optimal protein intake. Space meals/snacks 3-4 hours apart. Avoid consuming liquids with meals. Avoid alcohol. Avoid caffeine. Low Glycemic Index Carbohydrates (CHOOSE) Steel-cut oats (regular, not quick-cook or instant) Oat bran cereal Beans/legumes (e.g., garbanzo, navy, kidney, berry, gill, black-eyed and pea beans, edamame (soybeans), lentils Maya products (e.g., hummus, tofu) Pearled barley, cooked al dente Yams Some fruits (e.g., grapefruit, apples, pears, berries, apricots, peaches) Some pasta (e.g., Barilla Plus pasta), cooked al dente Some whole grain breads (e.g., Jae bread, Rodger s Flax, Oat Bran & Whole Wheat Amna/Lavash/Tortillas) Some whole grain crackers (e.g., RyKrisp, RyVita, Wasa) High Glycemic Index Carbohydrates (AVOID) Refined breakfast cereals (e.g., Tustin Flakes, Rice Krispies, Cream of Rice, instant oatmeal) Regular pasta Most starchy vegetables (e.g., white potatoes, corn, winter (orange) squash) White rice, rice cakes Popcorn, pretzels, chips Some fruits (e.g., ripe bananas, pineapple, yael, watermelon, grapes) All fruit juices and sweetened drinks (e.g., sodas, sweetened iced tea) Bread, rolls, bagels, Nigerian muffins, and crackers made with refined flour Sweets (e.g., candy, cake, cookies, ice cream, syrup) Heart-Healthy Fats Nuts, nut butters Avocado, guacamole Olives Most plant oils (e.g., olive, canola, peanut, soy, sunflower, sesame) Most seeds (e.g., sunflower, flax, sesame/sesame tahini) Oily fish (e.g., salmon, bluefish, mackerel, tuna, sardines) documented in this encounter [facility] 07-04-2024 Note HNO ID: [id number] Author: MANUELA ISBELL MD Service: ? Author Type: Physician Type: Progress Notes Filed: 07/04/2024 16:42 Note Text: BMI OM PostOp Virtual Visit July 04, 2024 I have communicated my name and active licensure. The patient's identity and physical location were verified at the time of this visit. Either the patient or their legal patient services representative has been informed of the risks and benefits of -- and alternatives to -- treatment through a remote evaluation and consents to proceed with the evaluation remotely. Index Surgery Date of Surgery: 07/07/2021 Surgeon: Phyllis Suresh MD Surgical Procedure: LAPAROSCOPIC GASTRIC RESTRICTIVE SURG W/ BYPASS AND FRANCISCA-EN-Y 150CM OR LESS Pre-surgical weight: 156.5 kg (345 lb) 413 lbs Lowest weight 192 lbs [place] weight: 72.4 kg (159 lb 11 oz) Excess weight: 84.1 kg (185 lb 5 oz) % of excess body weight lost: 156.5 kg (345 lb) (186.17% of excess weight loss) Other Bariatric Surgeries None Visit: 2 years Today's Visit: There were no vitals taken for this visit. BMI 35.08 kg/(m2) Previous Weight: Last 5 Encounter Wt Readings: Date: Wt: 04/09/2024 94.3 kg (208 lb) 03/06/2024 98.9 kg (218 lb 0.6 oz) 02/20/2024 97.5 kg (215 lb) 02/14/2024 97.5 kg (215 lb) 01/06/2024 91.9 kg (202 lb 9.6 oz) COMPLICATIONS SINCE LAST VISIT?: Concern for low BG: since September 2022 where she will have episodes of palpitation, she losses consciousness, gets dizziness and sweaty. Not sure about new onset diarrhea as she reports loose stool and diarrhea after removing her gallbladder as well. The episode will last for 3 weeks every 3 months. She was seen in the ED and they were dismissive of her symptoms. Each episode last from 30 min to 3 hours. Usually resolves on its own and she falls asleep. Resolves when she eats as well. She wakes up very tired. Numbers drop as she is eating or 2-4 hrs after she eats. She had night time episodes twice in the past. She was seen by Dr. Green and was thought to be related to her thyroid. Reports lowest Bgs down to the 47 mg/dL. Uses glucometer. Obesity Medications: Phentermine. Start Date: 07/14/23 Weight: 212lb -No longer experiencing benefit She was on it for over a year. She has not been on it since April 2025. DIET INTAKE: Does not have a huge appetite. Drinks 3/4-1 gallon a day of water Wakes up at 3-4 am: creatine and vitamin B12 She works out for an hour to an hour and half: strength and cardio Home at 6 am and protein shake, egg shake with pepper, coffee one cup a day with stavia At 8 am: half an apple and peanut butter, half a burger, drinks water with the meal At noon: tuna/chicken/burger with cheese, leftovers or a protein shake and drinks water to help flush the food. No snacks. Water and protein yogurt. Dinner at 7 pm: protein and veggies No alcohol DAILY SUPPLEMENTS: Yes Calcium: Calcium Citrate w/ vitamin D (1200 - 1500mg) 3 tablets daily Multivitamin AND Minerals: 1 per day Iron Supplement: 65 mg daily Vitamin B12: one dissolvable pill Vitamin D3: 4000 IU Other: B complex and magnesium EXERCISE: She works out for an hour to an hour and half: strength and cardio SLEEP: MARIAM No , CPAP No Current Outpatient Medications Medication Sig Magnesium Oxide 500 mg cap Take 1 capsule by mouth once daily. Creatinine, Bulk, 100 % powd 1,500 mg once daily. (Patient not taking: Reported on 02/14/2024) amitriptyline (ELAVIL) 10 mg tablet Take 2 tablets by mouth daily at bedtime. vitamin A (AQUASOL A) 10,000 unit capsule Take 10,000 Units by mouth once daily. ferrous sulfate (IRON) 325 mg (65 mg iron) tablet Take 325 mg by mouth once daily. Cyanocobalamin 2,500 mcg subl Take 1 tablet by mouth once daily. Cholecalciferol, Vitamin D3, (VITAMIN D-3) 50 mcg (2,000 unit) cap Take 1 capsule by mouth once daily. calcium carbonate (CALCIUM 600 ORAL) Take 3 tablets by mouth once daily. (1800 daily) No current facility-administered medications for this visit. REVIEW OF SYSTEMS: Denies abdominal pain, constipation, melena, hematochezia, Denies paresthesias, gait abnormality, weakness and Denies taking NSAIDs Reports gustatory rhinorrhea, fatigue and lower extremity edema, OBESITY MEDICINE COMORBIDITIES: Obstructive Sleep Apnea No MARIAM, GERD No GERD, Hyperlipidemia No Hyperlipidemia, HTN No HTN Requiring medication, and Diabetes/Insulin Resistance No Diabetes Mellitus OR Diet controlled PHYSICAL EXAM/VIRTUAL EXAM: Wt 101.6 kg (224 lb) LMP 08/28/2020 (Exact Date) BMI 35.08 kg/m? Assessment 34 year old female with Class I obesity 3 years s/p LAPAROSCOPIC GASTRIC RESTRICTIVE SURG W/ BYPASS AND FRANCISCA-EN-Y 150CM OR LESS. Total program weight loss of 221 lbs or 53.5% TBW with recent weight regain. PMH is also significant for lung nodule, GERD, depression. Body mass index is 35.08 kg/m?. Patient is here for evaluation and management of possible new onset post operativ (more content not included)... [facility] 07-04-2024 History of Presen t illness Narrative BMI OM PostOp Virtual Visit July 04, 2024 I have communicated my name and active licensure. The patient's identity and physical location were verified at the time of this visit. Either the patient or their legal patient services representative has been informed of the risks and benefits of -- and alternatives to -- treatment through a remote evaluation and consents to proceed with the evaluation remotely. Index Surgery Date of Surgery: 07/07/2021 Surgeon: Phyllis Suresh MD Surgical Procedure: LAPAROSCOPIC GASTRIC RESTRICTIVE SURG W/ BYPASS & FRANCISCA-EN-Y 150CM OR LESS Pre-surgical weight: 156.5 kg (345 lb) 413 lbs Lowest weight 192 lbs [place] weight: 72.4 kg (159 lb 11 oz) Excess weight: 84.1 kg (185 lb 5 oz) % of excess body weight lost: 156.5 kg (345 lb) (186.17% of excess weight loss) Other Bariatric Surgeries None Visit: 2 years Today's Visit: There were no vitals taken for this visit. BMI 35.08 kg/(m^2) Previous Weight: Last 5 Encounter Wt Readings: Date: Wt: 04/09/2024 94.3 kg (208 lb) 03/06/2024 98.9 kg (218 lb 0.6 oz) 02/20/2024 97.5 kg (215 lb) 02/14/2024 97.5 kg (215 lb) 01/06/2024 91.9 kg (202 lb 9.6 oz) COMPLICATIONS SINCE LAST VISIT?: Concern for low BG: since September 2022 where she will have episodes of palpitation, she losses consciousness, gets dizziness and sweaty. Not sure about new onset diarrhea as she reports loose stool and diarrhea after removing her gallbladder as well. The episode will last for 3 weeks every 3 months. She was seen in the ED and they were dismissive of her symptoms. Each episode last from 30 min to 3 hours. Usually resolves on its own and she falls asleep. Resolves when she eats as well. She wakes up very tired. Numbers drop as she is eating or 2-4 hrs after she eats. She had night time episodes twice in the past. She was seen by Dr. Green and was thought to be related to her thyroid. Reports lowest Bgs down to the 47 mg/dL. Uses glucometer. Obesity Medications: Phentermine. Start Date: 07/14/23 Weight: 212lb -No longer experiencing benefit She was on it for over a year. She has not been on it since April 2025. DIET INTAKE: Does not have a huge appetite. Drinks 3/4-1 gallon a day of water Wakes up at 3-4 am: creatine and vitamin B12 She works out for an hour to an hour and half: strength and cardio Home at 6 am and protein shake, egg shake with pepper, coffee one cup a day with stavia At 8 am: half an apple and peanut butter, half a burger, drinks water with the meal At noon: tuna/chicken/burger with cheese, leftovers or a protein shake and drinks water to help flush the food. No snacks. Water and protein yogurt. Dinner at 7 pm: protein and veggies No alcohol DAILY SUPPLEMENTS: Yes Calcium: Calcium Citrate w/ vitamin D (1200 - 1500mg) 3 tablets daily Multivitamin & Minerals: 1 per day Iron Supplement: 65 mg daily Vitamin B12: one dissolvable pill Vitamin D3: 4000 IU Other: B complex and magnesium EXERCISE: She works out for an hour to an hour and half: strength and cardio SLEEP: MARIAM No , CPAP No Current Outpatient Medications Medication Sig Magnesium Oxide 500 mg cap Take 1 capsule by mouth once daily. Creatinine, Bulk, 100 % powd 1,500 mg once daily. (Patient not taking: Reported on 02/14/2024) amitriptyline (ELAVIL) 10 mg tablet Take 2 tablets by mouth daily at bedtime. vitamin A (AQUASOL A) 10,000 unit capsule Take 10,000 Units by mouth once daily. ferrous sulfate (IRON) 325 mg (65 mg iron) tablet Take 325 mg by mouth once daily. Cyanocobalamin 2,500 mcg subl Take 1 tablet by mouth once daily. Cholecalciferol, Vitamin D3, (VITAMIN D-3) 50 mcg (2,000 unit) cap Take 1 capsule by mouth once daily. calcium carbonate (CALCIUM 600 ORAL) Take 3 tablets by mouth once daily. (1800 daily) No current facility-administered medications for this visit. REVIEW OF SYSTEMS: Denies abdominal pain, constipation, melena, hematochezia, Denies paresthesias, gait abnormality, weakness and Denies taking NSAIDs Reports gustatory rhinorrhea, fatigue and lower extremity edema, OBESITY MEDICINE COMORBIDITIES: Obstructive Sleep Apnea No MARIAM, GERD No GERD, Hyperlipidemia No Hyperlipidemia, HTN No HTN Requiring medication, and Diabetes/Insulin Resistance No Diabetes Mellitus OR Diet controlled PHYSICAL EXAM/VIRTUAL EXAM: Wt 101.6 kg (224 lb) LMP 08/28/2020 (Exact Date) BMI 35.08 kg/m Assessment 34 year old female with Class I obesity 3 years s/p LAPAROSCOPIC GASTRIC RESTRICTIVE SURG W/ BYPASS & FRANCISCA-EN-Y 150CM OR LESS. Total program weight loss of 221 lbs or 53.5% TBW with recent weight regain. PMH is also significant for lung nodule, GERD, depression. Body mass index is 35.08 kg/m . Patient is here for evaluation and management of possible new onset post operative hypoglycemia with glycopenic symptoms. Reports mindful food choices, however, there is concern for increased intake of high glycemic index CHO and caffeine and increased intake of fluids with meals. Discussed with patient at length pathophysiology of hypoglycemia post-op and principles of management. We reviewed available management options (nutrition, medications and surgery). We discussed dietary modifications as the cornerstone therapy and reviewed the 10-point nutrition recommendations to prevent hypoglycemia. Discussed the need to biochemically confirm hypoglycemia with inappropriately elevated insulin before starting pharmacological therapy. Taking supplements. Physical activity is sub-optimal. Patient Active Problem List Severe obesity (BMI >= 40) ([facility]) GERD (gastroesophageal reflux disease) Iron deficiency Morbid obesity ([facility]) Calculus of gallbladder without cholecystitis without obstruction Incidental lung nodule, > 3mm and < 8mm Panic disorder Spotting in History of loop electrosurgical excision procedure (LEEP) of cervix affecting History of labor History of depression History of depression Family history of cystic fibrosis Class 3 severe obesity without serious comorbidity with body mass index (BMI) of 60.0 to 69.9 in adult ([facility]) Resolved Hospital Problems No resolved problems to display. Plan -- Discussed adding heart healthy oils to meals, choosing low glycemic index and avoiding high glycemic index CHO. -- Discussed importance of decreasing caffeine intake to decrease severity of hypoglycemia. -- We will obtain fasting labs: fasting insulin, BOHB and c peptide. -- Dexcom was sent to local pharmacy. -- If continues to have low blood sugars despite dietary changes, we will start Acarbose 25 mg with meals. -- In case of severe hypoglycemia; Glucagon nasal powder was prescribed and sent to local pharmacy. -- Follow up in 1 month at [facility] to review BG I spent a total of 76 minutes on the date of the service which included preparing to see the patient, [id number] patient care, completing clinical documentation, obtaining and/or reviewing separately obtained history, performing a medically appropriate examination, counseling and educating the patient/family/caregiver, and ordering medications, tests, or procedures. Manuela Isbell MD documented in this encounter [facility] 05-29-2024 History of Presen t illness Narrative BMI Obesity Medicine FollowUp Note Distance Health Visit May 29, 2024 I have communicated my name and active licensure. The patient's identity and physical location were verified at the time of this visit. Either the patient or their legal patient services representative has been informed of the risks and benefits of -- and alternatives to -- treatment through a remote evaluation and consents to proceed with the evaluation remotely. Patient Summary: Mary Burrell is 34 year old Female who presents virtually for follow-up evaluation of her obesity and related complications to the [facility] Bariatric and Metabolic [place]. In our previous visits we have outlined an individualized lifestyle intervention including a personalized nutrition recommendations and physical activity optimization. Index Surgery Date of Surgery: 07/07/2021 Surgeon: Phyllis Suresh MD Surgical Procedure: LAPAROSCOPIC GASTRIC RESTRICTIVE SURG W/ BYPASS & FRANCISCA-EN-Y 150CM OR LESS Pre-surgical weight: 156.5 kg (345 lb) Override Index Surgery Information? No Interval History: She specifies the following items as new or significant updates since the last appointment: Returns after 3 months Reports weight is increased since the last visit. Reports persistent symptoms of hypoglycemia. Increased frequency, no correlation between meal timing or choices. Denies correlation to time of day, medication administration or any other attributing factors. Checking BS at home- feels agitation at onset and noted BS dipping to 50-60's. Keeping snacks/drinks readily available when out of the home. Recent lab reveals PTH increased. Has US scheduled for 05/30/24 by local Endocrine OSH (Felice Centeno). Obesity Medications: Phentermine. Start Date: 07/14/23 Weight: 212lb -No longer experiencing benefit Diet: Followed by BMI RD (ANNIKA 04/09) Exercise: Consistent exercise regimen Weight training and cardio Feeling more fatigued ?Sleep: No change ??Stress: none Review of Systems: I have confirmed and edited as necessary, the PFSH and ROS obtained by others. History reviewed in Epic Current Outpatient Medications Medication Sig Magnesium Oxide 500 mg cap Take 1 capsule by mouth once daily. Creatinine, Bulk, 100 % powd 1,500 mg once daily. (Patient not taking: Reported on 02/14/2024) amitriptyline (ELAVIL) 10 mg tablet Take 2 tablets by mouth daily at bedtime. vitamin A (AQUASOL A) 10,000 unit capsule Take 10,000 Units by mouth once daily. ferrous sulfate (IRON) 325 mg (65 mg iron) tablet Take 325 mg by mouth once daily. Cyanocobalamin 2,500 mcg subl Take 1 tablet by mouth once daily. Cholecalciferol, Vitamin D3, (VITAMIN D-3) 50 mcg (2,000 unit) cap Take 1 capsule by mouth once daily. calcium carbonate (CALCIUM 600 ORAL) Take 3 tablets by mouth once daily. (1800 daily) No current facility-administered medications for this visit. PAST MEDICAL HISTORY Diagnosis Date Abnormal Pap [...] repeat 1 year FOOT SURGERY HX 2013 GASTRIC BYPASS HX 07/07/2021 [facility] Main LEEP PROCEDURE ([employer] DE[employer])_*FL 12/2015 REMOVAL GALLBLADDER TONSILLECTOMY PRIMARY/SECONDARY <AGE 12 VAGINAL HYSTERECTOMY 02/24/2021 Dr Connell Physical Exam: Ht 170.2 cm (5' 7) LMP 08/28/2020 (Exact Date) BMI 32.58 kg/m Weight: Patient reported weight. VIDEO EXAM: (if done, performed via video enabled technology) Results: reviewed labs with the patient. Impression: Mary Burrell is a 34 year old female with Body mass index is 32.58 kg/m . and the above obesity related complications. Body mass index is 32.58 kg/m . Patient presents ~3 years s/p RYGB. Total program weight loss of -137lbs or 39.7% TBW loss thus far. Previous success with phentermine pharmacotherapy for continued weight loss interventions. Patient presents with worsening sx of suspected reactive hypoglycemia. No correlation of episodes to dietary intake or time of day. Discussed referral to specialized provider, patient appreciated this. She has continued follow up with [facility] endocrine specialist as well. Plan: -- refer out for possible reactive hypoglycemia -- Continue f/u with BMI RD -- Hold phentermine -- Continue to check routine RYGB labs I spent a total of 35 minutes on the date of the service which included preparing to see the patient, [id number] patient care, completing clinical documentation, obtaining and/or reviewing separately obtained history, performing a medically appropriate examination, and counseling and educating the patient/family/caregiver. Ping Ansari APRN.RENEE documented in this encounter [facility] 05-29-2024 Note HNO ID: [id number] Author: PING ANSARI APRN.CNP Service: ? Author Type: Nurse Practitioner Type: Progress Notes Filed: 06/05/2024 17:38 Note Text: BMI Obesity Medicine FollowUp Note Distance Health Visit May 29, 2024 I have communicated my name and active licensure. The patient's identity and physical location were verified at the time of this visit. Either the patient or their legal patient services representative has been informed of the risks and benefits of -- and alternatives to -- treatment through a remote evaluation and consents to proceed with the evaluation remotely. Patient Summary: Mary Burrell is 34 year old Female who presents virtually for follow-up evaluation of her obesity and related complications to the [facility] Bariatric and Metabolic [place]. In our previous visits we have outlined an individualized lifestyle intervention including a personalized nutrition recommendations and physical activity optimization. Index Surgery Date of Surgery: 07/07/2021 Surgeon: Phyllis Suresh MD Surgical Procedure: LAPAROSCOPIC GASTRIC RESTRICTIVE SURG W/ BYPASS AND FRANCISCA-EN-Y 150CM OR LESS Pre-surgical weight: 156.5 kg (345 lb) Override Index Surgery Information? No Interval History: She specifies the following items as new or significant updates since the last appointment: Returns after 3 months Reports weight is increased since the last visit. Reports persistent symptoms of hypoglycemia. Increased frequency, no correlation between meal timing or choices. Denies correlation to time of day, medication administration or any other attributing factors. Checking BS at home- feels agitation at onset and noted BS dipping to 50-60's. Keeping snacks/drinks readily available when out of the home. Recent lab reveals PTH increased. Has US scheduled for 05/30/24 by local Endocrine OSH (Felice Centeno). Obesity Medications: Phentermine. Start Date: 07/14/23 Weight: 212lb -No longer experiencing benefit Diet: Followed by BMI RD (ANNIKA 04/09) Exercise: Consistent exercise regimen Weight training and cardio Feeling more fatigued ?Sleep: No change ??Stress: none Review of Systems: I have confirmed and edited as necessary, the PFSH and ROS obtained by others. History reviewed in [facility] Current Outpatient Medications Medication Sig Magnesium Oxide 500 mg cap Take 1 capsule by mouth once daily. Creatinine, Bulk, 100 % powd 1,500 mg once daily. (Patient not taking: Reported on 02/14/2024) amitriptyline (ELAVIL) 10 mg tablet Take 2 tablets by mouth daily at bedtime. vitamin A (AQUASOL A) 10,000 unit capsule Take 10,000 Units by mouth once daily. ferrous sulfate (IRON) 325 mg (65 mg iron) tablet Take 325 mg by mouth once daily. Cyanocobalamin 2,500 mcg subl Take 1 tablet by mouth once daily. Cholecalciferol, Vitamin D3, (VITAMIN D-3) 50 mcg (2,000 unit) cap Take 1 capsule by mouth once daily. calcium carbonate (CALCIUM 600 ORAL) Take 3 tablets by mouth once daily. (1800 daily) No current facility-administered medications for this visit. PAST MEDICAL HISTORY Diagnosis Date Abnormal Pap smear of cervix Class 3 severe obesity without serious comorbidity with body mass index (BMI) of 60.0 to 69.9 in adult ([facility]) 10/07/2009 Esophagitis, unspecified High grade squamous intraepithelial lesion of cervix 01/01/2016 Iron deficiency 02/06/2021 Neck mass fatty deposit depression PAST SURGICAL HISTORY Procedure Laterality Date ESOPHAGOGASTRODUODENOSCOPY TRANSORAL DIAGNOSTIC 03/10/2012 EGD repeat 1 year FOOT SURGERY HX 2013 GASTRIC BYPASS HX 07/07/2021 [facility] Main LEEP PROCEDURE ([employer] DE[employer])_*FL 12/2015 REMOVAL GALLBLADDER TONSILLECTOMY PRIMARY/SECONDARY VAGINAL HYSTERECTOMY 02/24/2021 Dr Connell Physical Exam: Ht 170.2 cm (5' 7) LMP 08/28/2020 (Exact Date) BMI 32.58 kg/m? Weight: Patient reported weight. VIDEO EXAM: (if done, performed via video enabled technology) Results: reviewed labs with the patient. Impression: Mary Burrell is a 34 year old female with Body mass index is 32.58 kg/m?. and the above obesity related complications. Body mass index is 32.58 kg/m?. Patient presents ~3 years s/p RYGB. Total program weight loss of -137lbs or 39.7% TBW loss thus far. Previous success with phentermine pharmacotherapy for continued weight loss interventions. Patient presents with worsening sx of suspected reactive hypoglycemia. No correlation of episodes to dietary intake or time of day. Discussed referral to specialized provider, patient appreciated this. She has continued follow up with [facility] endocrine specialist as well. Plan: -- refer out for possible reactive hypoglycemia -- Continue f/u with BMI RD -- Hold phentermine -- Continue to check routine RYGB labs I spent a total of 35 minutes on the date of the service which included preparing to see the patient, [id number] patient care, completing c (more content not included)... [facility] 04-09-[address] - 04/09/2024 2:19 PM EST Nutrition Action Plan 1. Protein: Continue to strive for 85 g protein per day. Eat protein first at all meals. Lean meats, low fat/part skim dairy products, peanut butter, eggs, beans. 2. Eat 4 small meals per day or 3 meals and 1-2 small snacks for additional protein 3. Fluids: 64 oz per day, minimum. No carbonation, no caffeine, no calories, no alcohol. 4. Vitamin/minerals: Take daily multivitamin with 200 % daily value for all vitamin/minerals plus VIt D3 3,000 IU, Vit B12 500 mcg, Iron 45 mg and calcium citrate 5014-0218 mg/day . It is okay to use combination vitamin/minerals to reduce pill volume. Page 49 of Your Guide to Surgery 5. Exercise: strive for daily activity - combine strength training and cardio for best workouts. Goal is 30 minutes 5-6x per week. 6. Practice these: Eat in this order protein first, vegetable and fruit second and whole grain carbohydrates last. * Separate eating and drinking by 30 minutes * Chew your food 20-30x per bite * Meals should last 30 minutes. 7. Continue tracking meals and snacks with an marlin; aim for 3801-1563 calories per day Follow Up on 07/09/24 at 1 PM documented in this encounter [facility] 04-09-2024 History of Presen t illness Narrative [facility] Nutrition Therapy: Virtual Consult - Re-assessment I have communicated my name and active licensure. The patient s identity and physical location were verified at the time of this visit. Either the patient or their legal patient services representative has been informed of the risks and benefits of -- and alternatives to -- treatment through a remote evaluation and consents to proceed with the evaluation remotely. Nutrition Diagnosis: Altered Gastrointestinal Tract Function, related to, S/P bariatric surgery, as evidenced by patient report and apst surgical history and Overweight/obesity, related to, food/nutrition - related knowledge deficit, as evidenced by BMI above normative standard for age and gender RECOMMENDED MALNUTRITION DIAGNOSIS: NO MALNUTRITION IDENTIFIED NUTRITION CARE PLAN: Nutrition Intervention 04/09/2024: 1. Protein: Continue to strive for 85 g protein per day. Eat protein first at all meals. Lean meats, low fat/part skim dairy products, peanut butter, eggs, beans. 2. Eat 4 small meals per day or 3 meals and 1-2 small snacks for additional protein 3. Fluids: 64 oz per day, minimum. No carbonation, no caffeine, no calories, no alcohol. 4. Vitamin/minerals: Take daily multivitamin with 200 % daily value for all vitamin/minerals plus VIt D3 3,000 IU, Vit B12 500 mcg, Iron 45 mg and calcium citrate 0819-1139 mg/day . It is okay to use combination vitamin/minerals to reduce pill volume. Page 49 of Your Guide to Surgery 5. Exercise: strive for daily activity - combine strength training and cardio for best workouts. Goal is 30 minutes 5-6x per week. 6. Practice these: Eat in this order protein first, vegetable and fruit second and whole grain carbohydrates last. * Separate eating and drinking by 30 minutes * Chew your food 20-30x per bite * Meals should last 30 minutes. 7. Continue tracking meals and snacks with an marlin; aim for 1718-9620 calories per day Nutrition Monitoring & Evaluation: BMI <30 Need for Follow up: 3 months as scheduled PROGRESS: <3 years post op RYGB ([place]) Net weight loss 172 lbs (380 lbs initial) Pre-surgery weight: 345 pounds 45 % TWL weight loss higher than expected More than 5 pounds weight gain since last assessment (202.6 lbs) Patient reported overcoming thyroiditis over the romero time Patient currently takes Phentermine under the supervision of Ping Prince CNP. She reports benefits of the medicaiton, including less cravings and decreased appetite. Diet recall indicates a consistent meal pattern with regular meals and snacks. Patient tolerates Phase V diet plan with minimal complaints. She does reports some early satiety. Patient confirms to eat slowly, but sometimes drinks with meals to assist with food to go down, which is reasonable. Current physical activity meets recommendations ~1500 calories/day Meets recommendations ~80 gm protein intake/day meets low end recommendations >1 gallon fluid intake/day Meets recommendations Consistent with appropriate vitamin/minerals may be inadequate in vitamin D Labs reveal WNL Resting Metabolic Rate: 1678 Energy needs for weight loss: 7152-3193 calories per day (15-20 kcal/kg CBW) Protein needs: 85 grams protein per day (1.2 g/kg IBW) Nutrition Intervention A Annamaria 01/06/24 1. Protein: Continue to strive for 85 g protein per day. Eat protein first at all meals. Lean meats, low fat/part skim dairy products, peanut butter, eggs, beans. IN PROGRESS 2. Eat 4 small meals per day or 3 meals and 1-2 small snacks for additional protein MET 3. Fluids: 64 oz per day, minimum. No carbonation, no caffeine, no calories, no alcohol. MET 4. Vitamin/minerals: Take daily multivitamin with 200 % daily value for all vitamin/minerals plus VIt D3 3,000 IU, Vit B12 500 mcg, Iron 45 mg and calcium citrate 6519-1003 mg/day . It is okay to use combination vitamin/minerals to reduce pill volume. Page 49 of Your Guide to Surgery IN PROGRESS 5. Exercise: strive for daily activity - combine strength training and cardio for best workouts. Goal is 30 minutes 5-6x per week. MET 6. Practice these: Eat in this order protein first, vegetable and fruit second and whole grain carbohydrates last. MET * Separate eating and drinking by 30 minutes * Chew your food 20-30x per bite * Meals should last 30 minutes. 7. Feel free to complete a body composition analysis IN PROGRESS 8. Recommend to get updated lab work completed MET 9. Track meals and snacks with an marlin; aim for 9010-0640 calories per day IN PROGRESS Actions to implement interventions: see assessment Diet History: Patient follows an intermittent fasting plan from 10 AM to 6 PM Breakfast - [employer]life core power protein shake (26 OR 42 gm pro) Snack - none Lunch - [employer] core power protein shake (26 OR 42 gm pro) Snack - none Dinner -3-4 oz lean meat (21-28 gm pro) and vegetables Snack - none Beverages - 1 gallon water Alcohol - none Vitamins/Supplements - creatine, 09869 international unit(s) vitamin A, 2000 international unit(s) vitamin D, vitamin B complex, 65 mg iron, 1800 mg calcium Activity: Activities of Daily Living: Active 75% of 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 Malnutrition Screening Significant unintentional weight loss? No Eating less than 75% of usual intake for more than 2 weeks? No Potential Signs of Inflammation: no identifiable sources Education Materials Provided: None this visit READINESS TO LEARN Cognitive ability: Alert and oriented Motivation to learn: Eager Family support: High - Very involved in pt care Instruction provided to: Patient Patient learns best by: Individual Instruction Multiple Methods Factors affecting learning: None Physical limitations affecting learning: None Likelihood of Adherence: High Referred by: Suresh HWANG Billing Type: Re-assess/15 min 1 unit SIGNATURE: Stef Luis RD PATIENT NAME: Mary Burrell DATE: April 09, 2024 TIME: 2:18 PM documented in this encounter [facility] 04-09-2024 Note HNO ID: [id number] Author: STEF LUIS RD Service: ? Author Type: Registered Dietitian Type: Progress Notes Filed: 04/09/2024 14:20 Note Text: [facility] Nutrition Therapy: Virtual Consult - Re-assessment I have communicated my name and active licensure. The patient?s identity and physical location were verified at the time of this visit. Either the patient or their legal patient services representative has been informed of the risks and benefits of -- and alternatives to -- treatment through a remote evaluation and consents to proceed with the evaluation remotely. Nutrition Diagnosis: Altered Gastrointestinal Tract Function, related to, S/P bariatric surgery, as evidenced by patient report and apst surgical history and Overweight/obesity, related to, food/nutrition - related knowledge deficit, as evidenced by BMI above normative standard for age and gender RECOMMENDED MALNUTRITION DIAGNOSIS: NO MALNUTRITION IDENTIFIED NUTRITION CARE PLAN: Nutrition Intervention 04/09/2024: 1. Protein: Continue to strive for 85 g protein per day. Eat protein first at all meals. Lean meats, low fat/part skim dairy products, peanut butter, eggs, beans. 2. Eat 4 small meals per day or 3 meals and 1-2 small snacks for additional protein 3. Fluids: 64 oz per day, minimum. No carbonation, no caffeine, no calories, no alcohol. 4. Vitamin/minerals: Take daily multivitamin with 200 % daily value for all vitamin/minerals plus VIt D3 3,000 IU, Vit B12 500 mcg, Iron 45 mg and calcium citrate 6357-2736 mg/day . It is okay to use combination vitamin/minerals to reduce pill volume. Page 49 of Your Guide to Surgery 5. Exercise: strive for daily activity - combine strength training and cardio for best workouts. Goal is 30 minutes 5-6x per week. 6. Practice these: Eat in this order protein first, vegetable and fruit second and whole grain carbohydrates last. * Separate eating and drinking by 30 minutes * Chew your food 20-30x per bite * Meals should last 30 minutes. 7. Continue tracking meals and snacks with an marlin; aim for 3599-3916 calories per day Nutrition Monitoring AND Evaluation: BMI <30 Need for Follow up: 3 months as scheduled PROGRESS: <3 years post op RYGB ([place]) Net weight loss 172 lbs (380 lbs initial) Pre-surgery weight: 345 pounds 45 % TWL weight loss higher than expected More than 5 pounds weight gain since last assessment (202.6 lbs) Patient reported overcoming thyroiditis over the romero time Patient currently takes Phentermine under the supervision of Ping Prince CNP. She reports benefits of the medicaiton, including less cravings and decreased appetite. Diet recall indicates a consistent meal pattern with regular meals and snacks. Patient tolerates Phase V diet plan with minimal complaints. She does reports some early satiety. Patient confirms to eat slowly, but sometimes drinks with meals to assist with food to go down, which is reasonable. Current physical activity meets recommendations ~1500 calories/day Meets recommendations ~80 gm protein intake/day meets low end recommendations >1 gallon fluid intake/day Meets recommendations Consistent with appropriate vitamin/minerals may be inadequate in vitamin D Labs reveal WNL Resting Metabolic Rate: 1678 Energy needs for weight loss: 3216-0831 calories per day (15-20 kcal/kg CBW) Protein needs: 85 grams protein per day (1.2 g/kg IBW) Nutrition Intervention A Annamaria 01/06/24 1. Protein: Continue to strive for 85 g protein per day. Eat protein first at all meals. Lean meats, low fat/part skim dairy products, peanut butter, eggs, beans. IN PROGRESS 2. Eat 4 small meals per day or 3 meals and 1-2 small snacks for additional protein MET 3. Fluids: 64 oz per day, minimum. No carbonation, no caffeine, no calories, no alcohol. MET 4. Vitamin/minerals: Take daily multivitamin with 200 % daily value for all vitamin/minerals plus VIt D3 3,000 IU, Vit B12 500 mcg, Iron 45 mg and calcium citrate 2639-7490 mg/day . It is okay to use combination vitamin/minerals to reduce pill volume. Page 49 of Your Guide to Surgery IN PROGRESS 5. Exercise: strive for daily activity - combine strength training and cardio for best workouts. Goal is 30 minutes 5-6x per week. MET 6. Practice these: Eat in this order protein first, vegetable and fruit second and whole grain carbohydrates last. MET * Separate eating and drinking by 30 minutes * Chew your food 20-30x per bite * Meals should last 30 minutes. 7. Feel free to complete a body composition analysis IN PROGRESS 8. Recommend to get updated lab work completed MET 9. Track meals and snacks with an marlin; aim for 7696-2461 calories per day IN PROGRESS Actions to implement interventions: see assessment Diet History: Patient follows an intermittent fasting plan from 10 AM to 6 PM Breakfast - [employer] protein shake (26 OR 42 gm pro) Snack - none Lunch - fairlife (more content not included)... [facility] 03-06-2024 Note HNO ID: [id number] Author: CRISTA CARMICHAEL APRN.CHILD DEVELOPMENT CONSULTANT Service: ? Author Type: Nurse Practitioner Type: Progress Notes Filed: 03/06/2024 07:46 Note Text: Subjective HPI HPI Mary Burrell is a 33 year old female who presents today for CC of sinus pressure/drainage, ear pain. This started 1 month ago. Has tried otc medication without relief. Symptoms are worsened by nothing. Nonsmoker. Denies possibility of being . .Patient presents with: Nasal Congestion: drainage, headache, ear pain and cough x 1 month PAST MEDICAL HISTORY Diagnosis Date Abnormal Pap [...] repeat 1 year FOOT SURGERY HX 2013 GASTRIC BYPASS HX 07/07/2021 [facility] Main LEEP PROCEDURE ([employer] DEPT)_*FL 12/2015 REMOVAL GALLBLADDER TONSILLECTOMY PRIMARY/SECONDARY VAGINAL HYSTERECTOMY 02/24/2021 Dr Connell ALLERGIES Metoprolol, Doxycycline, Latex, Percocet [Oxycodone-Acetaminophen], Tomatoes, and Vicodin [Hydrocodone-Acetaminophen] MEDICATIONS Phentermine HCl 37.5 mg tablet Take 1 tablet by mouth once daily for 90 days. Magnesium Oxide 500 mg cap Take 1 capsule by mouth once daily. vitamin A (AQUASOL A) 10,000 unit capsule Take 10,000 Units by mouth once daily. ferrous sulfate (IRON) 325 mg (65 mg iron) tablet Take 325 mg by mouth once daily. Cyanocobalamin 2,500 mcg subl Take 1 tablet by mouth once daily. Cholecalciferol, Vitamin D3, (VITAMIN D-3) 50 mcg (2,000 unit) cap Take 1 capsule by mouth once daily. calcium carbonate (CALCIUM 600 ORAL) Take 3 tablets by mouth once daily. (1800 daily) Creatinine, Bulk, 100 % powd 1,500 mg once daily. (Patient not taking: Reported on 02/14/2024) amitriptyline (ELAVIL) 10 mg tablet Take 2 tablets by mouth daily at bedtime. (Patient not taking: Reported on 02/14/2024) FAMILY HISTORY Problem Relation Age of Onset Obesity Mother Diabetes Mother Heart Mother Hypertension Mother Blood Disease Father Arthritis Father Obesity Father Cancer Maternal Grandmother lung and liver Kidney Disease Maternal Grandfather Emphysema Paternal Grandmother Diabetes Maternal Uncle Coronary Artery Disease Maternal Uncle Collin Disease Paternal Aunt Collin Disease Paternal cousin Social History Tobacco Use Smoking status: Former Current packs/day: 0.00 Types: Cigarettes Start date: 05/25/2006 Quit date: 11/23/2006 Years since quittin.2 Smokeless tobacco: Never Vaping Use Vaping status: Never Used Substance Use Topics Alcohol use: Not Currently Comment: stopped 08/19/2017 Drug use: No Review of Systems Constitutional: Negative for fever. HENT: Positive for congestion, ear pain and sinus pain. Negative for nosebleeds and sore throat. Respiratory: Negative for cough, shortness of breath and wheezing. Musculoskeletal: Negative for neck pain. Objective Blood pressure 122/80, pulse 100, temperature 36.9 ?C (98.5 ?F), resp. rate 18, weight 98.9 kg (218 lb 0.6 oz), last menstrual period 08/28/2020, SpO2 98%. Physical Exam Constitutional: General: She is not in acute distress. Appearance: She is not toxic-appearing or diaphoretic. HENT: Head: Normocephalic and atraumatic. Right Ear: Hearing, tympanic membrane, ear canal and external ear normal. Left Ear: Hearing, tympanic membrane, ear canal and external ear normal. Nose: Nose normal. Mouth/Throat: Pharynx: Uvula midline. No pharyngeal swelling, oropharyngeal exudate, posterior oropharyngeal erythema or uvula swelling. Eyes: General: Lids are normal. No scleral icterus. Right eye: No discharge. Left eye: No discharge. Conjunctiva/sclera: Conjunctivae normal. Pupils: Pupils are equal, round, and reactive to light. Neck: Trachea: Trachea normal. Cardiovascular: Rate and Rhythm: Normal rate and regular rhythm. Heart sounds: Normal heart sounds. Pulmonary: Effort: Pulmonary effort is normal. Breath sounds: Normal breath sounds. Musculoskeletal: Cervical back: Normal range of motion and neck supple. Lymphadenopathy: Cervical: No cervical adenopathy. Right cervical: No superficial cervical adenopathy. Left cervical: No superficial cervical adenopathy. Skin: Findings: No rash. Neurological: Mental Status: She is alert and oriented to person, place, and time. ASSESSMENT/PLAN: 1. Bacterial sinusitis - ICD9: 473.9, 041.9, ICD10: J32.9, B96.89 - Will begin treatment with as per antibiotic as written, see orders - Supportive care with plenty of fluids, rest, and analgesia prn. - Follow up in 3-5 days if symptoms persist or worse (more content not included)... [facility] 03-06-2024 History of Presen t illness Narrative Subjective HPI HPI Mary Burrell is a 33 year old female who presents today for CC of sinus pressure/drainage, ear pain. This started 1 month ago. Has tried otc medication without relief. Symptoms are worsened by nothing. Nonsmoker. Denies possibility of being . .Patient presents with: Nasal Congestion: drainage, headache, ear pain and cough x 1 month PAST MEDICAL HISTORY Diagnosis Date Abnormal Pap [...] repeat 1 year FOOT SURGERY HX 2013 GASTRIC BYPASS HX 07/07/2021 [facility] Main LEEP PROCEDURE ([employer] DEPT)_*FL 12/2015 REMOVAL GALLBLADDER TONSILLECTOMY PRIMARY/SECONDARY <AGE 12 VAGINAL HYSTERECTOMY 02/24/2021 Dr Connell ALLERGIES Metoprolol, Doxycycline, Latex, Percocet [Oxycodone-Acetaminophen], Tomatoes, and Vicodin [Hydrocodone-Acetaminophen] MEDICATIONS Phentermine HCl 37.5 mg tablet Take 1 tablet by mouth once daily for 90 days. Magnesium Oxide 500 mg cap Take 1 capsule by mouth once daily. vitamin A (AQUASOL A) 10,000 unit capsule Take 10,000 Units by mouth once daily. ferrous sulfate (IRON) 325 mg (65 mg iron) tablet Take 325 mg by mouth once daily. Cyanocobalamin 2,500 mcg subl Take 1 tablet by mouth once daily. Cholecalciferol, Vitamin D3, (VITAMIN D-3) 50 mcg (2,000 unit) cap Take 1 capsule by mouth once daily. calcium carbonate (CALCIUM 600 ORAL) Take 3 tablets by mouth once daily. (1800 daily) Creatinine, Bulk, 100 % powd 1,500 mg once daily. (Patient not taking: Reported on 02/14/2024) amitriptyline (ELAVIL) 10 mg tablet Take 2 tablets by mouth daily at bedtime. (Patient not taking: Reported on 02/14/2024) FAMILY HISTORY Problem Relation Age of Onset Obesity Mother Diabetes Mother Heart Mother Hypertension Mother Blood Disease Father Arthritis Father Obesity Father Cancer Maternal Grandmother lung and liver Kidney Disease Maternal Grandfather Emphysema Paternal Grandmother Diabetes Maternal Uncle Coronary Artery Disease Maternal Uncle Collin Disease Paternal Aunt Collin Disease Paternal cousin Social History Tobacco Use Smoking status: Former Current packs/day: 0.00 Types: Cigarettes Start date: 05/25/2006 Quit date: 11/23/2006 Years since quittin.2 Smokeless tobacco: Never Vaping Use Vaping status: Never Used Substance Use Topics Alcohol use: Not Currently Comment: stopped 08/19/2017 Drug use: No Review of Systems Constitutional: Negative for fever. HENT: Positive for congestion, ear pain and sinus pain. Negative for nosebleeds and sore throat. Respiratory: Negative for cough, shortness of breath and wheezing. Musculoskeletal: Negative for neck pain. Objective Blood pressure 122/80, pulse 100, temperature 36.9 C (98.5 F), resp. rate 18, weight 98.9 kg (218 lb 0.6 oz), last menstrual period 08/28/2020, SpO2 98%. Physical Exam Constitutional: General: She is not in acute distress. Appearance: She is not toxic-appearing or diaphoretic. HENT: Head: Normocephalic and atraumatic. Right Ear: Hearing, tympanic membrane, ear canal and external ear normal. Left Ear: Hearing, tympanic membrane, ear canal and external ear normal. Nose: Nose normal. Mouth/Throat: Pharynx: Uvula midline. No pharyngeal swelling, oropharyngeal exudate, posterior oropharyngeal erythema or uvula swelling. Eyes: General: Lids are normal. No scleral icterus. Right eye: No discharge. Left eye: No discharge. Conjunctiva/sclera: Conjunctivae normal. Pupils: Pupils are equal, round, and reactive to light. Neck: Trachea: Trachea normal. Cardiovascular: Rate and Rhythm: Normal rate and regular rhythm. Heart sounds: Normal heart sounds. Pulmonary: Effort: Pulmonary effort is normal. Breath sounds: Normal breath sounds. Musculoskeletal: Cervical back: Normal range of motion and neck supple. Lymphadenopathy: Cervical: No cervical adenopathy. Right cervical: No superficial cervical adenopathy. Left cervical: No superficial cervical adenopathy. Skin: Findings: No rash. Neurological: Mental Status: She is alert and oriented to person, place, and time. ASSESSMENT/PLAN: 1. Bacterial sinusitis - ICD9: 473.9, 041.9, ICD10: J32.9, B96.89 - Will begin treatment with as per antibiotic as written, see orders - Supportive care with plenty of fluids, rest, and analgesia prn. - Follow up in 3-5 days if symptoms persist or worsen. - AMOXICILLIN 875 MG-POTASSIUM CLAVULANATE 125 MG TABLET Crista Carmichael APRN.CHILD DEVELOPMENT CONSULTANT documented in this encounter [facility] 02-20-2024 Note HNO ID: [id number] Author: PING PRINCE APRN.RENEE Service: ? Author Type: Nurse Practitioner Type: Progress Notes Filed: 02/20/2024 11:47 Note Text: BMI Obesity Medicine FollowUp Note Distance Health Visit February 20, 2024 I have communicated my name and active licensure. The patient's identity and physical location were verified at the time of this visit. Either the patient or their legal patient services representative has been informed of the risks and benefits of -- and alternatives to -- treatment through a remote evaluation and consents to proceed with the evaluation remotely. Patient Summary: Mary Burrell is 33 year old Female who presents virtually for follow-up evaluation of her obesity and related complications to the [facility] Bariatric and Metabolic [place]. In our previous visits we have outlined an individualized lifestyle intervention including a personalized nutrition recommendations and physical activity optimization. Index Surgery Date of Surgery: 07/07/2021 Surgeon: Phyllis Suresh MD Surgical Procedure: LAPAROSCOPIC GASTRIC RESTRICTIVE SURG W/ BYPASS AND FRANCISCA-EN-Y 150CM OR LESS Pre-surgical weight: 156.5 kg (345 lb) Interval History: She specifies the following items as new or significant updates since the last appointment: Returns after 3 months Reports weight is increased since the last visit. Since ANNIKA patient attempted to come off Phentermine x 1 month. She also had an episode of syncope x 2. No correlation to food timing or food choices. Recently met with endocrinology who stated thyroiditis exacerbation. She will reach out to [facility] to discuss hu-menopausal symptoms and PCP regarding possibly starting anxiolytic pharmacotherapy. 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 Obesity Medications: Phentermine. Start Date: 07/14/23 Weight: 212lb Effects Reduced hunger, Reduction of appetite, and Reduction of cravings Diet: Followed by BMI RD Exercise: Consistent exercise regimen Heavy weight training Cardio ?Sleep: No change ??Stress: none Review of Systems: I have confirmed and edited as necessary, the PFSH and ROS obtained by others. History reviewed in Epic Current Outpatient Medications Medication Sig Phentermine HCl 37.5 mg tablet Take 1 tablet by mouth once daily for 90 days. Magnesium Oxide 500 mg cap Take 1 capsule by mouth once daily. Creatinine, Bulk, 100 % powd 1,500 mg once daily. (Patient not taking: Reported on 02/14/2024) amitriptyline (ELAVIL) 10 mg tablet Take 2 tablets by mouth daily at bedtime. (Patient not taking: Reported on 02/14/2024) vitamin A (AQUASOL A) 10,000 unit capsule Take 10,000 Units by mouth once daily. ferrous sulfate (IRON) 325 mg (65 mg iron) tablet Take 325 mg by mouth once daily. Cyanocobalamin 2,500 mcg subl Take 1 tablet by mouth once daily. Cholecalciferol, Vitamin D3, (VITAMIN D-3) 50 mcg (2,000 unit) cap Take 1 capsule by mouth once daily. calcium carbonate (CALCIUM 600 ORAL) Take 3 tablets by mouth once daily. (1800 daily) No current facility-administered medications for this visit. PAST MEDICAL HISTORY Diagnosis Date Abnormal Pap [...] repeat 1 year FOOT SURGERY HX 2013 GASTRIC BYPASS HX 07/07/2021 [facility] Main LEEP PROCEDURE ([employer] DEPT)_*FL 12/2015 REMOVAL GALLBLADDER TONSILLECTOMY PRIMARY/SECONDARY VAGINAL HYSTERECTOMY 02/24/2021 Dr Connell Physical Exam: Ht 170.2 cm (5' 7) Wt 97.5 kg (215 lb) LMP 08/28/2020 (Exact Date) BMI 33.67 kg/m? Weight: 97.5 kg (215 lb) Patient reported weight. VIDEO EXAM: (if done, performed via video enabled technology) Results: reviewed labs with the patient. Impression: Mary Burrell is a 33 year old female with Body mass index is 33.67 kg/m?. and the above obesity related complications. Body mass index is 33.67 kg/m?. Currently taking Phentermine, responding well. Program weight loss of -130Lb or 53% TBW loss thus far. Follow up with [employer] for possible testing. Follow up with PCP regarding possible anxiety medication. Plan: -- continue current lifestyle -- Continue Phentermine. -- return to clinic/virtually in 3 months I spent a total of 29 minutes on the date of the service which included preparing to see the patient, [id number] patient care, completing clinical documentation, obtaining and/or reviewing separately obtained history, performing a medically appropriate examination, counseling and educating the patient/ (more content not included)... [facility] 02-20-2024 History of Presen t illness Narrative BMI Obesity Medicine FollowUp Note Distance Health Visit February 20, 2024 I have communicated my name and active licensure. The patient's identity and physical location were verified at the time of this visit. Either the patient or their legal patient services representative has been informed of the risks and benefits of -- and alternatives to -- treatment through a remote evaluation and consents to proceed with the evaluation remotely. Patient Summary: Mary Burrell is 33 year old Female who presents virtually for follow-up evaluation of her obesity and related complications to the [facility] Bariatric and Metabolic [place]. In our previous visits we have outlined an individualized lifestyle intervention including a personalized nutrition recommendations and physical activity optimization. Index Surgery Date of Surgery: 07/07/2021 Surgeon: Phyllis Suresh MD Surgical Procedure: LAPAROSCOPIC GASTRIC RESTRICTIVE SURG W/ BYPASS & FRANCISCA-EN-Y 150CM OR LESS Pre-surgical weight: 156.5 kg (345 lb) Interval History: She specifies the following items as new or significant updates since the last appointment: Returns after 3 months Reports weight is increased since the last visit. Since ANNIKA patient attempted to come off Phentermine x 1 month. She also had an episode of syncope x 2. No correlation to food timing or food choices. Recently met with endocrinology who stated thyroiditis exacerbation. She will reach out to [facility] to discuss hu-menopausal symptoms and PCP regarding possibly starting anxiolytic pharmacotherapy. 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 Obesity Medications: Phentermine. Start Date: 07/14/23 Weight: 212lb Effects Reduced hunger, Reduction of appetite, and Reduction of cravings Diet: Followed by BMI RD Exercise: Consistent exercise regimen Heavy weight training Cardio ?Sleep: No change ??Stress: none Review of Systems: I have confirmed and edited as necessary, the PFSH and ROS obtained by others. History reviewed in Epic Current Outpatient Medications Medication Sig Phentermine HCl 37.5 mg tablet Take 1 tablet by mouth once daily for 90 days. Magnesium Oxide 500 mg cap Take 1 capsule by mouth once daily. Creatinine, Bulk, 100 % powd 1,500 mg once daily. (Patient not taking: Reported on 02/14/2024) amitriptyline (ELAVIL) 10 mg tablet Take 2 tablets by mouth daily at bedtime. (Patient not taking: Reported on 02/14/2024) vitamin A (AQUASOL A) 10,000 unit capsule Take 10,000 Units by mouth once daily. ferrous sulfate (IRON) 325 mg (65 mg iron) tablet Take 325 mg by mouth once daily. Cyanocobalamin 2,500 mcg subl Take 1 tablet by mouth once daily. Cholecalciferol, Vitamin D3, (VITAMIN D-3) 50 mcg (2,000 unit) cap Take 1 capsule by mouth once daily. calcium carbonate (CALCIUM 600 ORAL) Take 3 tablets by mouth once daily. (1800 daily) No current facility-administered medications for this visit. PAST MEDICAL HISTORY Diagnosis Date Abnormal Pap [...] repeat 1 year FOOT SURGERY HX 2013 GASTRIC BYPASS HX 07/07/2021 [facility] Main LEEP PROCEDURE ([employer] DEPT)_*FL 12/2015 REMOVAL GALLBLADDER TONSILLECTOMY PRIMARY/SECONDARY <AGE 11 VAGINAL HYSTERECTOMY 02/24/2021 Dr Connell Physical Exam: Ht 170.2 cm (5' 7) Wt 97.5 kg (215 lb) LMP 08/28/2020 (Exact Date) BMI 33.67 kg/m Weight: 97.5 kg (215 lb) Patient reported weight. VIDEO EXAM: (if done, performed via video enabled technology) Results: reviewed labs with the patient. Impression: Mary Burrell is a 33 year old female with Body mass index is 33.67 kg/m . and the above obesity related complications. Body mass index is 33.67 kg/m . Currently taking Phentermine, responding well. Program weight loss of -130Lb or 53% TBW loss thus far. Follow up with [facility] [employer] [facility] for possible testing. Follow up with PCP regarding possible anxiety medication. Plan: -- continue current lifestyle -- Continue Phentermine. -- return to clinic/virtually in 3 months I spent a total of 29 minutes on the date of the service which included preparing to see the patient, akrt-[id number] patient care, completing clinical documentation, obtaining and/or reviewing separately obtained history, performing a medically appropriate examination, counseling and educating the patient/family/caregiver, ordering medications, tests, or procedures, and independently interpreting results (not separately reported). Some documentation from previous visit of 10/20/23 was copied and pasted, documentation has been reviewed and edited as necessary for today's visit. Ping Prince APRN.CHILD DEVELOPMENT CONSULTANT If you were prescribed a medication today, please allow a minimum of 2 weeks for this to be completed. One of our Obesity Medicine support members will reach out to you once this is completed or if they need additional information. Additional inquiries on this request can delay this process. Please keep in mind: We understand that many medications are effective for weight loss and treating other conditions related to obesity. However, insurance coverage isn't always guaranteed. If your medication is denied due to plan exclusions or not meeting coverage criteria, we won't pursue an appeal. documented in this encounter [facility] 02-14-2024 Instructions Donita Green MD - 02/14/2024 9:39 AM EDT Please do thyroid ultrasound and lab test in 1 year from the last thyroid ultrasound (in 12/2024) and follow up after documented in this encounter [facility] 02-14-2024 Note HNO ID: [id number] Author: DONITA GREEN MD Service: ? Author Type: Physician Type: Progress Notes Filed: 02/14/2024 19:06 Note Text: [facility] Follow up note History of Present Illness: Mary Burrell is a 33 year old female here to establish care for Hashimotos thyroiditis and thyroid dysfunction How hypothyroidism was discovered: on labs after complaining of tachycardia and sweating episodes Current treatment: stopped taking LT4 prescribed for abnormal labs Prior treatment: LT4 200 mcg daily As per Prior history, she was started on 100 mcg of levothyroxine while thyroid labs being normal, with an expectation to preserve thyroid function- this has resulted in possible hyperthyroid symptoms for patient as in HPI leading to discontinuation of medication by patient spontaneously On last visit, I discontinued her levothyroxine completely and she feels better General symptoms: Fatigue: tired Weight change: since December 2023, she gained 13 lbs. 413 lbs before surgery, 192 last September 2022, lowest. 206 lbs at the time of calling OBGYN Thyroid antibodies checked, and were high Was referred to Endocrine- seen by Dr. Carmichael, who reviewed about Collin's, with risk of hypothyroidism, and told to start taking LT4 100 mcg daily to prevent thyroid dysfunction Within 4 weeks of starting levothyroxine she gained weight of 8 lbs and TSH was checked with low levels Appetite change: after starting levothyroxine she started having cravings Menstrual irregularities: hysterectomy done in Feb 2021 for a fibroma and has AUB Change in bowel habits: fluctuating since Gastric bypass Temperature intolerance: no, but sometimes breaks into sweats In September 2022, with abdominal pains, went to ER, no issues noted- gall bladder was unremarkable Gastric bypass 2 years ago Reports joint pains, and has palpitations and sweaty episodes randomly, lightheadedness, dizziness . It takes 6 hours for getting better. 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 ferrous sulfate (IRON) 325 mg (65 mg iron) tablet Take 325 mg by mouth once daily. Cyanocobalamin 2,500 mcg subl Take 1 tablet by mouth once daily. Cholecalciferol, Vitamin D3, (VITAMIN D-3) 50 mcg (2,000 unit) cap Take 1 capsule by mouth once daily. calcium carbonate (CALCIUM 600 ORAL) Take 1 tablet by mouth once daily. Phentermine HCl 37.5 mg tablet Take 1 tablet by mouth once daily for 90 days. levothyroxine (SYNTHROID) 100 mcg tablet Take 1 tablet by mouth daily before breakfast. (Patient not taking: Reported on 08/15/2023) No current facility-administered medications on file prior to visit. PAST MEDICAL HISTORY: PAST MEDICAL HISTORY Diagnosis Date Abnormal Pap smear of cervix Class 3 severe obesity without serious comorbidity with body mass index (BMI) of 60.0 to 69.9 in adult (HCC) 10/07/2009 Esophagitis, unspecified High grade squamous intraepithelial lesion of cervix 01/01/2016 Iron deficiency 02/06/2021 Neck mass fatty deposit depression PAST SURGICAL HISTORY: PAST SURGICAL HISTORY Procedure Laterality Date ESOPHAGOGASTRODUODENOSCOPY TRANSORAL DIAGNOSTIC 03/10/2012 EGD repeat 1 year FOOT SURGERY HX 2013 GASTRIC BYPASS HX 07/07/2021 [facility] LEEP PROCEDURE ([facility] [employer] [facility] [facility] DEPT)_*FL 12/2015 REMOVAL GALLBLADDER TONSILLECTOMY PRIMARY/SECONDARY VAGINAL HYSTERECTOMY 02/24/2021 Dr Connell FAMILY HISTORY: FAMILY HISTORY Problem Relation Age of Onset Obesity Mother Diabetes Mother Heart Mother Hypertension Mother Blood Disease Father Arthritis Father Obesity Father Cancer Maternal Grandmother lung and liver Kidney Disease Maternal Grandfather Emphysema Paternal Grandmother Diabetes Maternal Uncle Coronary Artery Disease Maternal Uncle Collin Disease Paternal Aunt Collin Disease Paternal cousin SOCIAL HISTORY: Social History Tobacco Use Smoking status: Former Current packs/day: 0.00 Types: Cigarettes Start date: 05/25/2006 Quit date: 11/23/2006 Years since quittin.2 Smokeless tobacco: Never Vaping Use Vaping status: Never Used Substance Use Topics Alcohol use: Not Currently Comment: stopped 08/19/2017 Drug use: No PHYSICAL EXAM: Pulse 78 Resp 17 Ht 170.2 cm (5' 7) Wt 97.5 kg (215 lb) LMP 08/28/2020 (Exact Date) (more content not included)... [facility] 02-14-2024 History of Presen t illness Narrative [facility] Follow up note History of Present Illness: Mary Burrell is a 33 year old female here to establish care for Hashimotos thyroiditis and thyroid dysfunction How hypothyroidism was discovered: on labs after complaining of tachycardia and sweating episodes Current treatment: stopped taking LT4 prescribed for abnormal labs Prior treatment: LT4 200 mcg daily As per Prior history, she was started on 100 mcg of levothyroxine while thyroid labs being normal, with an expectation to preserve thyroid function- this has resulted in possible hyperthyroid symptoms for patient as in HPI leading to discontinuation of medication by patient spontaneously On last visit, I discontinued her levothyroxine completely and she feels better General symptoms: Fatigue: tired Weight change: since December 2023, she gained 13 lbs. 413 lbs before surgery, 192 last September 2022, lowest. 206 lbs at the time of calling OBGYN Thyroid antibodies checked, and were high Was referred to Endocrine- seen by Dr. Carmichael, who reviewed about Collin's, with risk of hypothyroidism, and told to start taking LT4 100 mcg daily to prevent thyroid dysfunction Within 4 weeks of starting levothyroxine she gained weight of 8 lbs and TSH was checked with low levels Appetite change: after starting levothyroxine she started having cravings Menstrual irregularities: hysterectomy done in Feb 2021 for a fibroma and has AUB Change in bowel habits: fluctuating since Gastric bypass Temperature intolerance: no, but sometimes breaks into sweats In September 2022, with abdominal pains, went to ER, no issues noted- gall bladder was unremarkable Gastric bypass 2 years ago Reports joint pains, and has palpitations and sweaty episodes randomly, lightheadedness, dizziness . It takes 6 hours for getting better. 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 ferrous sulfate (IRON) 325 mg (65 mg iron) tablet Take 325 mg by mouth once daily. Cyanocobalamin 2,500 mcg subl Take 1 tablet by mouth once daily. Cholecalciferol, Vitamin D3, (VITAMIN D-3) 50 mcg (2,000 unit) cap Take 1 capsule by mouth once daily. calcium carbonate (CALCIUM 600 ORAL) Take 1 tablet by mouth once daily. Phentermine HCl 37.5 mg tablet Take 1 tablet by mouth once daily for 90 days. levothyroxine (SYNTHROID) 100 mcg tablet Take 1 tablet by mouth daily before breakfast. (Patient not taking: Reported on 08/15/2023) No current facility-administered medications on file prior to visit. PAST MEDICAL HISTORY: PAST MEDICAL HISTORY Diagnosis Date Abnormal Pap smear of cervix Class 3 severe obesity without serious comorbidity with body mass index (BMI) of 60.0 to 69.9 in adult ([facility]) 10/07/2009 Esophagitis, unspecified High grade squamous intraepithelial lesion of cervix 01/01/2016 Iron deficiency 02/06/2021 Neck mass fatty deposit depression PAST SURGICAL HISTORY: PAST SURGICAL HISTORY Procedure Laterality Date ESOPHAGOGASTRODUODENOSCOPY TRANSORAL DIAGNOSTIC 03/10/2012 EGD repeat 1 year FOOT SURGERY HX 2013 GASTRIC BYPASS HX 07/07/2021 [facility] Main LEEP PROCEDURE ([employer] DEPT)_*FL 12/2015 REMOVAL GALLBLADDER TONSILLECTOMY PRIMARY/SECONDARY <AGE 12 VAGINAL HYSTERECTOMY 02/24/2021 Dr Connell FAMILY HISTORY: FAMILY HISTORY Problem Relation Age of Onset Obesity Mother Diabetes Mother Heart Mother Hypertension Mother Blood Disease Father Arthritis Father Obesity Father Cancer Maternal Grandmother lung and liver Kidney Disease Maternal Grandfather Emphysema Paternal Grandmother Diabetes Maternal Uncle Coronary Artery Disease Maternal Uncle Collin Disease Paternal Aunt Collin Disease Paternal cousin SOCIAL HISTORY: Social History Tobacco Use Smoking status: Former Current packs/day: 0.00 Types: Cigarettes Start date: 05/25/2006 Quit date: 11/23/2006 Years since quittin.2 Smokeless tobacco: Never Vaping Use Vaping status: Never Used Substance Use Topics Alcohol use: Not Currently Comment: stopped 08/19/2017 Drug use: No PHYSICAL EXAM: Pulse 78 Resp 17 Ht 170.2 cm (5' 7) Wt 97.5 kg (215 lb) LMP 08/28/2020 (Exact Date) SpO2 97% BMI 33.67 kg/m Last 3 Encounter Wt Readings: Date: Wt: 08/15/2023 91.6 kg (202 lb) 07/14/2023 96.2 kg (212 lb) 07/07/2023 96.4 kg (212 lb 9.6 oz) General: Alert and oriented x3, no acute distress Eyes: Anicteric sclera. Pupils are equally round. Extraocular movements are intact. Neck supple, no cervical lymphadenopathy Thyroid: normal size, normal texture, no palpable nodules Lungs: Breathing unlabored, clear to auscultation. No wheezing, rhonchi, rales Heart regular rate and rhythm, no murmer Musculoskeletal: Muscular strength intact, No joint swelling, deformity, or tenderness Neuro: Gait normal. Sensation grossly intact. No focal findings Abdomen:Normal abdominal sounds, non tender to palpation Extremities: without edema, no deformities Skin: no rashes/ erythema LABS: 02/03/2023 TPO antibodies 266 IU/mL (0-34) Free T4: 0.96 ng/dL (0.76-1.46) 06/21/2023 TSH 1.41 IU/mL (0.358-3.74) Free T4 1.04 ng/dL (0.76-1.46) 25-hydroxy vitamin D 45.8 ng/mL Latest Ref Rng 11/18/2022 08/15/2023 01/20/2024 TSH 0.270 - 4.200 mIU/L 1.780 1.960 Free T4 0.9 - 1.7 ng/dL 1.2 Free T3 2.3 - 4.1 pg/mL 3.1 US thyroid: 12/19/2023 RESULT: . The right thyroid lobe measures 6.1 x 1.8 x 2.5 cm. The left thyroid lobe measures 5.9 x 1.9 x 1.8 cm. The thyroid isthmus measures 4 mm in thickness. Parenchyma: The parenchyma is diffusely heterogeneous and mildly hyperemic. NODULES: Most suspicious nodules (up to 4) detailed below: Nodule #1 Location: Right lower pole Size: 8 x 9 x 6 mm ; similar to the prior. Characteristics: Composition: Solid or almost completely solid, 2 points Echogenicity: Hypoechoic, 2 points Shape: [id number], 0 points Margin: Smooth, 0 points Echogenic foci: None, 0 points TI-RADS Category: 4 ACR Recommendation: No FNA or follow-up imaging is advised. Nodule #2 Location: Right lower pole Size: 1.4 x 1.1 x 1 cm ; similar to the prior. Characteristics: Composition: Solid or almost completely solid, 2 points Echogenicity: Hypoechoic, 2 points Shape: [id number], 0 points Margin: Smooth, 0 points Echogenic foci: Peripheral (rim) calcification (complete or incomplete), 2 points TI-RADS Category: 4 ACR Recommendation: Follow up imaging in 1, 2, 3 and 5 years is advised. ASSESSMENT/PLAN: Collin's thyroiditis: TPO antibodies positive Not on LT4 Continue to be off of medication Thyroid nodules: - Reviewed prevalence of thyroid nodules, risk of cancer, indication of biopsy, discussed about compressive symptoms and possible functioning nodule -repeat thyroid ultrasound with stable nodules - will continue to monitor - thyroid US and tSH in one year from last imaging Follow up in 1 year with investigations- likely in Jan 2025 Medical Decision Making: Problems: Moderate: 1+ chronic illnesses with change Data: Unique test result(s) reviewed: 2 Unique test(s) ordered: 2 Risk: Moderate: Decision on minor surgery w/ risk factors Medical Decision Making Level: 4 - Moderate Donita Green MD Endocrinology Associate Staff [facility] Endocrinology and Metabolism [place] [phone] documented in this encounter [facility] 01-06-[address] - 01/06/2024 3:32 PM EDT Nutrition Action Plan 1. Protein: Continue to strive for 85 g protein per day. Eat protein first at all meals. Lean meats, low fat/part skim dairy products, peanut butter, eggs, beans. 2. Eat 4 small meals per day or 3 meals and 1-2 small snacks for additional protein 3. Fluids: 64 oz per day, minimum. No carbonation, no caffeine, no calories, no alcohol. 4. Vitamin/minerals: Take daily multivitamin with 200 % daily value for all vitamin/minerals plus VIt D3 3,000 IU, Vit B12 500 mcg, Iron 45 mg and calcium citrate 4207-6988 mg/day . It is okay to use combination vitamin/minerals to reduce pill volume. Page 49 of Your Guide to Surgery 5. Exercise: strive for daily activity - combine strength training and cardio for best workouts. Goal is 30 minutes 5-6x per week. 6. Practice these: Eat in this order protein first, vegetable and fruit second and whole grain carbohydrates last. * Separate eating and drinking by 30 minutes * Chew your food 20-30x per bite * Meals should last 30 minutes. 7. Feel free to complete a body composition analysis 8. Recommend to get updated lab work completed 9. Track meals and snacks with an marlin; aim for 9482-3235 calories per day Follow Up on 03/30 at 3 PM Call [phone] to follow up with Delia Prince documented in this encounter [facility] 01-06-2024 History of Presen t illness Narrative [facility] Nutrition Therapy: Virtual Consult - Re-assessment I have communicated my name and active licensure. The patient s identity and physical location were verified at the time of this visit. Either the patient or their legal patient services representative has been informed of the risks and benefits of -- and alternatives to -- treatment through a remote evaluation and consents to proceed with the evaluation remotely. Nutrition Diagnosis: Altered Gastrointestinal Tract Function, related to, S/P bariatric surgery, as evidenced by patient report and past surgical history and Overweight/obesity, related to, food/nutrition - related knowledge deficit, as evidenced by BMI above normative standard for age and gender RECOMMENDED MALNUTRITION DIAGNOSIS: NO MALNUTRITION IDENTIFIED NUTRITION CARE PLAN: Nutrition Intervention 01/06/2024: 1. Protein: Continue to strive for 85 g protein per day. Eat protein first at all meals. Lean meats, low fat/part skim dairy products, peanut butter, eggs, beans. 2. Eat 4 small meals per day or 3 meals and 1-2 small snacks for additional protein 3. Fluids: 64 oz per day, minimum. No carbonation, no caffeine, no calories, no alcohol. 4. Vitamin/minerals: Take daily multivitamin with 200 % daily value for all vitamin/minerals plus VIt D3 3,000 IU, Vit B12 500 mcg, Iron 45 mg and calcium citrate 8133-7637 mg/day . It is okay to use combination vitamin/minerals to reduce pill volume. Page 49 of Your Guide to Surgery 5. Exercise: strive for daily activity - combine strength training and cardio for best workouts. Goal is 30 minutes 5-6x per week. 6. Practice these: Eat in this order protein first, vegetable and fruit second and whole grain carbohydrates last. * Separate eating and drinking by 30 minutes * Chew your food 20-30x per bite * Meals should last 30 minutes. 7. Feel free to complete a body composition analysis 8. Recommend to get updated lab work completed 9. Track meals and snacks with an amrlin; aim for 1750-3380 calories per day Nutrition Monitoring & Evaluation: BMI <30 Need for Follow up: 3 months as scheduled PROGRESS: 30 months post op RYGB ([place]) Net weight loss 177.4 lbs (380 lbs initial) Pre-surgery weight: 345 pounds 47 % TWL weight loss higher than expected 2 pounds weight gain since last assessment (200.6 lbs) Patient takes Phentermine under the supervision of Ping Prince CNP. She reports benefits of the medication, including less cravings. Diet recall indicates a consistent meal pattern with regular meals and snacks. Patient tolerates Phase V diet plan without complaints. She confirms to eat slowly and separates fluids from foods as recommended. Patient meets recommended 150+ minutes physical activity with a variety of exercises. 7278-3242 calories/day meets recommendations 140 gm protein intake/day meets recommendations 1 gallon fluid intake/day meets recommendations Consistent with appropriate vitamin/minerals inadequate in vitamin D Labs reveal no new labs to review Resting Metabolic Rate: 1653 Energy needs for weight loss: 0495-4212 calories per day (15-20 kcal/kg CBW) Protein needs: 85 grams protein per day (1.2 g/kg IBW) [facility] 1. Protein: Continue to strive for >85 g protein per day. Eat protein first at all meals. Lean meats, low fat/part skim dairy products, peanut butter, eggs, beans. MET 2. Eat 4 small meals per day or 3 meals and 1-2 small snacks for additional protein MET 3. Fluids: 64 oz per day, minimum. No carbonation, no caffeine, no calories, no alcohol. MET 4. Vitamin/minerals: Recommend switch to either Bariatric Fusion once daily capsule MVI OR [employer] health once daily capsule MVI; INCLUDE 8992-4919 mg calcium citrate per day (such as 3 powdered calcium sticks mixed with water per day) IN PROGRESS -https://www.bariatricfusion.com /products/buj-srx-xgo-bariatric- zvyovputzofb-fppzbcm-ptmm-iron -https://[employer].com/collecti ons/bariatric-multivitamin/produ cts/zbvnxqyyrawp-07gr-swij-capsu le -https://[employer].com/collecti ons/calcium-supplements/products /bsbek-d-nixcfzmd-calcium-citrat v-pf-tlk-go-sticks 5. Exercise: strive for daily activity - combine strength training and cardio for best workouts. Goal is 30 minutes 5-6x per week. MET 6. Practice these: Eat in this order protein first, vegetable and fruit second and whole grain carbohydrates last. MET * Separate eating and drinking by 30 minutes * Chew your food 20-30x per bite * Meals should last 30 minutes. 7. Continue to track meals and snacks with an marlin; caloric goal= 9969-7375 per day; aim for 50-60% calories from carbs and 20-30% calories from fat MET Actions to implement interventions: see assessment Diet History: Breakfast - 1 egg (7 gm pro) and 2-3 slices ham (6-9 gm pro) Snack - fairlife protein shake (26 gm pro) Snack- fairlife protein shake (26 gm pro) Lunch - 3 oz tuna/chicken/turkey burger (21 gm pro) with lettuce and tomato Snack - fairlie protein shake (26 gm pro) Dinner - 5 oz grilled chicken (35 gm pro) and fresh fruit Snack - none Beverages - 1 gallon water, sometimes coffee Alcohol - none Vitamins/Supplements - creatine, 92965 international unit(s) vitamin A, 2000 international unit(s) vitamin D, vitamin B complex, 65 mg iron, 1800 mg calcium Activity: Activities of Daily Living: Active 75% of the day. 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 Malnutrition Screening Significant unintentional weight loss? No Eating less than 75% of usual intake for more than 2 weeks? No Potential Signs of Inflammation: no identifiable sources Education Materials Provided: physical activity/body composition resources READINESS TO LEARN Cognitive ability: Alert and oriented Motivation to learn: Eager Family support: Unable to assess - Family not present Instruction provided to: Patient Patient learns best by: Multiple Methods Factors affecting learning: None Physical limitations affecting learning: None Likelihood of Adherence: High Referred by: Suresh HWANG Billing Type: Re-assess/15 min 2 units SIGNATURE: Stef Luis RD PATIENT NAME: Mary Burrell DATE: 01/06/2024 TIME: 3:31 PM documented in this encounter [facility] 01-06-2024 Note HNO ID: [id number] Author: STEF LUIS RD Service: ? Author Type: Registered Dietitian Type: Progress Notes Filed: 01/06/2024 15:33 Note Text: [facility] Nutrition Therapy: Virtual Consult - Re-assessment I have communicated my name and active licensure. The patient?s identity and physical location were verified at the time of this visit. Either the patient or their legal patient services representative has been informed of the risks and benefits of -- and alternatives to -- treatment through a remote evaluation and consents to proceed with the evaluation remotely. Nutrition Diagnosis: Altered Gastrointestinal Tract Function, related to, S/P bariatric surgery, as evidenced by patient report and past surgical history and Overweight/obesity, related to, food/nutrition - related knowledge deficit, as evidenced by BMI above normative standard for age and gender RECOMMENDED MALNUTRITION DIAGNOSIS: NO MALNUTRITION IDENTIFIED NUTRITION CARE PLAN: Nutrition Intervention 01/06/2024: 1. Protein: Continue to strive for 85 g protein per day. Eat protein first at all meals. Lean meats, low fat/part skim dairy products, peanut butter, eggs, beans. 2. Eat 4 small meals per day or 3 meals and 1-2 small snacks for additional protein 3. Fluids: 64 oz per day, minimum. No carbonation, no caffeine, no calories, no alcohol. 4. Vitamin/minerals: Take daily multivitamin with 200 % daily value for all vitamin/minerals plus VIt D3 3,000 IU, Vit B12 500 mcg, Iron 45 mg and calcium citrate 4676-7407 mg/day . It is okay to use combination vitamin/minerals to reduce pill volume. Page 49 of Your Guide to Surgery 5. Exercise: strive for daily activity - combine strength training and cardio for best workouts. Goal is 30 minutes 5-6x per week. 6. Practice these: Eat in this order protein first, vegetable and fruit second and whole grain carbohydrates last. * Separate eating and drinking by 30 minutes * Chew your food 20-30x per bite * Meals should last 30 minutes. 7. Feel free to complete a body composition analysis 8. Recommend to get updated lab work completed 9. Track meals and snacks with an marlin; aim for 1500-3470 calories per day Nutrition Monitoring AND Evaluation: BMI <30 Need for Follow up: 3 months as scheduled PROGRESS: 30 months post op RYGB ([place]) Net weight loss 177.4 lbs (380 lbs initial) Pre-surgery weight: 345 pounds 47 % TWL weight loss higher than expected 2 pounds weight gain since last assessment (200.6 lbs) Patient takes Phentermine under the supervision of Ping Prince CNP. She reports benefits of the medication, including less cravings. Diet recall indicates a consistent meal pattern with regular meals and snacks. Patient tolerates Phase V diet plan without complaints. She confirms to eat slowly and separates fluids from foods as recommended. Patient meets recommended 150+ minutes physical activity with a variety of exercises. 1312-5357 calories/day meets recommendations 140 gm protein intake/day meets recommendations 1 gallon fluid intake/day meets recommendations Consistent with appropriate vitamin/minerals inadequate in vitamin D Labs reveal no new labs to review Resting Metabolic Rate: 1653 Energy needs for weight loss: 7324-5715 calories per day (15-20 kcal/kg CBW) Protein needs: 85 grams protein per day (1.2 g/kg IBW) Nutrition Intervention Sharyn Luis 10/07/23 1. Protein: Continue to strive for >85 g protein per day. Eat protein first at all meals. Lean meats, low fat/part skim dairy products, peanut butter, eggs, beans. MET 2. Eat 4 small meals per day or 3 meals and 1-2 small snacks for additional protein MET 3. Fluids: 64 oz per day, minimum. No carbonation, no caffeine, no calories, no alcohol. MET 4. Vitamin/minerals: Recommend switch to either Bariatric Fusion once daily capsule MVI OR Blue Pillar once daily capsule MVI; INCLUDE 3303-2499 mg calcium citrate per day (such as 3 powdered calcium sticks mixed with water per day) IN PROGRESS -https://www.bariatricfusion.com /products/jol-seq-bnu-bariatric- multivitamin-cap jxrh-krni-tjei -https://Webra[employer]/collecti ons/bariatric-multivitamin/produ cts/multivitamin -53ju-uixp-smrejto -https://Webrazzi/[employer] by Chantilly Lacei ons/calcium-supplements/products /feeda-z-whclbjk o-bftdbee-rridbwg-hu-isu-rr-stic ks 5. Exercise: strive for daily activity - combine strength training and cardio for best workouts. Goal is 30 minutes 5-6x per week. MET 6. Practice these: Eat in this order protein first, vegetable and fruit second and whole grain carbohydrates last. MET * Separate eating and drinking by 30 minutes * Chew your food 20-30x per bite * Meals should last 30 minutes. 7. Continue to track meals and snacks with an marlin; caloric goal= 1133-5361 per day; aim for 50-60% calories from carbs and 20-30% calories from fat MET Actions to implement interventions: see assessment Diet History: Break (more content not included)... [facility] 12-19-2023 History of Presen t illness Narrative Radiology Service Progress Note PATIENT NAME: Mary Burrell DATE OF SERVICE: December 19, 2023 TIME: 10:45 AM PATIENT IDENTITY VERIFICATION COMPLETED USING TWO (2) IDENTIFIERS: Name and Date of confirmed by patient verbally. FALL SCREENING: Has the patient had 2 falls in the last year or 1 fall with injury or currently using an Ambulatory Assistive Device (Walker, Cane, Wheelchair, Crutches, etc.)? No PATIENT GENDER DATA: Female. status: : No status: NO. PATIENT RELEVANT IMPLANT DATA REVIEWED: Not Applicable PATIENT PRESENTS WITH AN IMPLANTABLE OR ATTACHED GRADES 9 12 TUTOR: No RADIOLOGY DEPARTMENT: Ultrasound PERIPHERAL IV DATA: Not applicable SIGNED BY: Christel Posey RDMS RVT December 19, 2023 10:45 AM documented in this encounter [facility] 12-19-2023 Note HNO ID: [id number] Author: CHRISTEL POSEY RDMS Service: ? Author Type: Exterior Interior Specialist Type: Progress Notes Filed: 12/19/2023 10:45 Note Text: Radiology Service Progress Note PATIENT NAME: Mary Burrell DATE OF SERVICE: December 19, 2023 TIME: 10:45 AM PATIENT IDENTITY VERIFICATION COMPLETED USING TWO (2) IDENTIFIERS: Name and Date of confirmed by patient verbally. FALL SCREENING: Has the patient had 2 falls in the last year or 1 fall with injury or currently using an Ambulatory Assistive Device (Walker, Cane, Wheelchair, Crutches, etc.)? No PATIENT GENDER DATA: Female. status: : No status: NO. PATIENT RELEVANT IMPLANT DATA REVIEWED: Not Applicable PATIENT PRESENTS WITH AN IMPLANTABLE OR ATTACHED GRADES 9 12 TUTOR: No RADIOLOGY DEPARTMENT: Ultrasound PERIPHERAL IV DATA: Not applicable SIGNED BY: Christel Posey RDMS RVT December 19, 2023 10:45 AM [facility] 11-21-2023 Instructions Kiera Carson APRN.CNP - 11/21/2023 1:55 PM EDT 1) Amitriptyline 10 mg daily for 3 days at bedtime, if pain/ sleep not better, increase to 20 mg for 3 days, if still no improvement- hold at 30 mg daily at bedtime.... will follow up by video 2) ketoconazole wash to abdominal apron; daily-pat dry; Dry will hairdryer on cool setting, then apply terbinafine- may repeat terbinafine at bedtime 3) Rizatriptan 10 mg daily as needed only for migraine 4) Video or [id number] in 2 weeks documented in this encounter [facility] 11-21-2023 Note HNO ID: [id number] Author: KIERA CARSON APRN.CNP Service: ? Author Type: Clinical Nurse Specialist Type: Progress Notes Filed: 11/21/2023 14:04 Note Text: This is a 33 year old female who presents today with: Patient presents with: Physical HISTORY OF PRESENT ILLNESS: Mary Burrell is a 33 year old female. Patient presents with: Physical Fungal rash in groin- apron Off levothyroxine Migraines bad. Last 1- 1.5 days. + Light sensitive. Auras. Nausea. Sound sensitive. Doesn't sleep well. PAST MEDICAL HISTORY: PAST MEDICAL HISTORY Diagnosis Date Abnormal Pap smear of cervix Class 3 severe obesity without serious comorbidity with body mass index (BMI) of 60.0 to 69.9 in adult ([facility]) 10/07/2009 Esophagitis, unspecified High grade squamous intraepithelial lesion of cervix 01/01/2016 Iron deficiency 02/06/2021 Neck mass fatty deposit depression PAST SURGICAL HISTORY Procedure Laterality Date ESOPHAGOGASTRODUODENOSCOPY TRANSORAL DIAGNOSTIC 03/10/2012 EGD repeat 1 year FOOT SURGERY HX 2013 GASTRIC BYPASS HX 07/07/2021 [facility] Main LEEP PROCEDURE ([employer] DEPT)_*FL 12/2015 REMOVAL GALLBLADDER TONSILLECTOMY PRIMARY/SECONDARY VAGINAL HYSTERECTOMY 02/24/2021 Dr Connell ALLERGIES Metoprolol, Doxycycline, Latex, Percocet [Oxycodone-Acetaminophen], Tomatoes, and Vicodin [Hydrocodone-Acetaminophen] MEDICATIONS Current Outpatient Medications Medication Sig Magnesium Oxide 500 mg cap Take 1 capsule by mouth once daily. Creatinine, Bulk, 100 % powd 1,500 mg once daily. Phentermine HCl 37.5 mg tablet Take 1 tablet by mouth once daily for 90 days. vitamin A (AQUASOL A) 10,000 unit capsule Take 10,000 Units by mouth once daily. ferrous sulfate (IRON) 325 mg (65 mg iron) tablet Take 325 mg by mouth once daily. Cyanocobalamin 2,500 mcg subl Take 1 tablet by mouth once daily. Cholecalciferol, Vitamin D3, (VITAMIN D-3) 50 mcg (2,000 unit) cap Take 1 capsule by mouth once daily. calcium carbonate (CALCIUM 600 ORAL) Take 3 tablets by mouth once daily. (1800 daily) levothyroxine (SYNTHROID) 100 mcg tablet Take 1 tablet by mouth daily before breakfast. (Patient not taking: Reported on 08/15/2023) No current facility-administered medications for this visit. FAMILY HISTORY Problem Relation Age of Onset Obesity Mother Diabetes Mother Heart Mother Hypertension Mother Blood Disease Father Arthritis Father Obesity Father Cancer Maternal Grandmother lung and liver Kidney Disease Maternal Grandfather Emphysema Paternal Grandmother Diabetes Maternal Uncle Coronary Artery Disease Maternal Uncle Collin Disease Paternal Aunt Collin Disease Paternal cousin Social History Tobacco Use Smoking status: Former Years: .5 Types: Cigarettes Quit date: 11/23/2006 Years since quittin.0 Smokeless tobacco: Never Vaping Use Vaping Use: Never used Substance Use Topics Alcohol use: Not Currently Comment: stopped 08/19/2017 Drug use: No REVIEW OF SYSTEMS GENERAL: + weight loss, + malaise, no fevers/chills HEENT: Positive for frequent or significant headaches, No changes in hearing or vision. NECK: Negative for lumps, goiter, pain and significant neck swelling RESPIRATORY: Negative for cough, hemoptysis, wheezing, dyspnea or shortness of breath CARDIOVASCULAR: Negative for chest pain, some leg swelling, no orthopnea, some palpitations GI: Both nausea and vomiting- She attributes to bariatric surgery, always diarrhea since gall bladder surgery/ no constipation. No hematochezia/melena. No heartburn or reflux symptoms. : No history of dysuria, frequency or incontinence MUSCULOSKELETAL: + joint pain, no swelling. SKIN: Negative for lesions, apron rash, + itching ENDOCRINE: Both cold and heat intolerance, no polyuria, polydipsia and goiter NEURO: No history of syncope, paralysis, seizures or tremors MOOD: Both for depression, more anxiety, denies suicidal ideation. EXAM: BP 110/72 Pulse 97 Wt 93.4 kg (206 lb) LMP 08/28/2020 (Exact Date) SpO2 99% BMI 32.26 kg/m? PHYSICAL EXAM: Physical Exam Vitals reviewed. Constitutional: Appearance: She is obese. HENT: Head: Normocephalic. Cardiovascular: Rate and Rhythm: Normal rate and regular rhythm. Pulses: Normal pulses. Heart sounds: Normal heart sounds. Pulmonary: Effort: Pulmonary effort is normal. Breath sounds: Normal breath sounds. Abdominal: Palpations: Abdomen is soft. Musculoskeletal: Cervical back: Neck supple. Skin: General: Skin is warm and dry. Comments: Abdominal apron tinea Neurological: Mental Status: She is alert and oriented to person, place, and time. Psychiatric: Comments: Very flat affect- significant migraine today PHQ-9 15, NADINE 7- 15 LABS: ongoing ASSESSMENT/PLAN: 1. Tinea cruris - ICD9: 110.3, ICD10: B35.6 (primary diagnosis) - Treat with ketoconazole wash AND terbinafine cream twice a day un (more content not included)... [facility] 11-21-2023 History of Presen t illness Narrative This is a 33 year old female who presents today with: Patient presents with: Physical HISTORY OF PRESENT ILLNESS: Mary Burrell is a 33 year old female. Patient presents with: Physical Fungal rash in groin- apron Off levothyroxine Migraines bad. Last 1- 1.5 days. + Light sensitive. Auras. Nausea. Sound sensitive. Doesn't sleep well. PAST MEDICAL HISTORY: PAST MEDICAL HISTORY Diagnosis Date Abnormal Pap smear of cervix Class 3 severe obesity without serious comorbidity with body mass index (BMI) of 60.0 to 69.9 in adult ([facility]) 10/07/2009 Esophagitis, unspecified High grade squamous intraepithelial lesion of cervix 01/01/2016 Iron deficiency 02/06/2021 Neck mass fatty deposit depression PAST SURGICAL HISTORY Procedure Laterality Date ESOPHAGOGASTRODUODENOSCOPY TRANSORAL DIAGNOSTIC 03/10/2012 EGD repeat 1 year FOOT SURGERY HX 2013 GASTRIC BYPASS HX 07/07/2021 [facility] Main LEEP PROCEDURE ([employer] DEPT)_*FL 12/2015 REMOVAL GALLBLADDER TONSILLECTOMY PRIMARY/SECONDARY <AGE 12 VAGINAL HYSTERECTOMY 02/24/2021 Dr Connell ALLERGIES Metoprolol, Doxycycline, Latex, Percocet [Oxycodone-Acetaminophen], Tomatoes, and Vicodin [Hydrocodone-Acetaminophen] MEDICATIONS Current Outpatient Medications Medication Sig Magnesium Oxide 500 mg cap Take 1 capsule by mouth once daily. Creatinine, Bulk, 100 % powd 1,500 mg once daily. Phentermine HCl 37.5 mg tablet Take 1 tablet by mouth once daily for 90 days. vitamin A (AQUASOL A) 10,000 unit capsule Take 10,000 Units by mouth once daily. ferrous sulfate (IRON) 325 mg (65 mg iron) tablet Take 325 mg by mouth once daily. Cyanocobalamin 2,500 mcg subl Take 1 tablet by mouth once daily. Cholecalciferol, Vitamin D3, (VITAMIN D-3) 50 mcg (2,000 unit) cap Take 1 capsule by mouth once daily. calcium carbonate (CALCIUM 600 ORAL) Take 3 tablets by mouth once daily. (1800 daily) levothyroxine (SYNTHROID) 100 mcg tablet Take 1 tablet by mouth daily before breakfast. (Patient not taking: Reported on 08/15/2023) No current facility-administered medications for this visit. FAMILY HISTORY Problem Relation Age of Onset Obesity Mother Diabetes Mother Heart Mother Hypertension Mother Blood Disease Father Arthritis Father Obesity Father Cancer Maternal Grandmother lung and liver Kidney Disease Maternal Grandfather Emphysema Paternal Grandmother Diabetes Maternal Uncle Coronary Artery Disease Maternal Uncle Collin Disease Paternal Aunt Collin Disease Paternal cousin Social History Tobacco Use Smoking status: Former Years: .5 Types: Cigarettes Quit date: 11/23/2006 Years since quittin.0 Smokeless tobacco: Never Vaping Use Vaping Use: Never used Substance Use Topics Alcohol use: Not Currently Comment: stopped 08/19/2017 Drug use: No REVIEW OF SYSTEMS GENERAL: + weight loss, + malaise, no fevers/chills HEENT: Positive for frequent or significant headaches, No changes in hearing or vision. NECK: Negative for lumps, goiter, pain and significant neck swelling RESPIRATORY: Negative for cough, hemoptysis, wheezing, dyspnea or shortness of breath CARDIOVASCULAR: Negative for chest pain, some leg swelling, no orthopnea, some palpitations GI: Both nausea and vomiting- She attributes to bariatric surgery, always diarrhea since gall bladder surgery/ no constipation. No hematochezia/melena. No heartburn or reflux symptoms. : No history of dysuria, frequency or incontinence MUSCULOSKELETAL: + joint pain, no swelling. SKIN: Negative for lesions, apron rash, + itching ENDOCRINE: Both cold and heat intolerance, no polyuria, polydipsia and goiter NEURO: No history of syncope, paralysis, seizures or tremors MOOD: Both for depression, more anxiety, denies suicidal ideation. EXAM: BP 110/72 Pulse 97 Wt 93.4 kg (206 lb) LMP 08/28/2020 (Exact Date) SpO2 99% BMI 32.26 kg/m PHYSICAL EXAM: Physical Exam Vitals reviewed. Constitutional: Appearance: She is obese. HENT: Head: Normocephalic. Cardiovascular: Rate and Rhythm: Normal rate and regular rhythm. Pulses: Normal pulses. Heart sounds: Normal heart sounds. Pulmonary: Effort: Pulmonary effort is normal. Breath sounds: Normal breath sounds. Abdominal: Palpations: Abdomen is soft. Musculoskeletal: Cervical back: Neck supple. Skin: General: Skin is warm and dry. Comments: Abdominal apron tinea Neurological: Mental Status: She is alert and oriented to person, place, and time. Psychiatric: Comments: Very flat affect- significant migraine today PHQ-9 15, NADINE 7- 15 LABS: ongoing ASSESSMENT/PLAN: 1. Tinea cruris - ICD9: 110.3, ICD10: B35.6 (primary diagnosis) - Treat with ketoconazole wash & terbinafine cream twice a day until rash resolves and then another week - KETOCONAZOLE 2 % SHAMPOO - TERBINAFINE HCL 1 % TOPICAL CREAM 2. Migraine with aura, not intractable, without status migrainosus - ICD9: 346.00, ICD10: G43.109 Ongoing, untreated - AMITRIPTYLINE 10 MG TABLET - RIZATRIPTAN 10 MG TABLET 3. Gastroesophageal reflux disease without esophagitis - ICD9: 530.81, ICD10: K21.9 Stable 4. Other chronic pain - ICD9: 338.29, ICD10: G89.29 Starting amitriptyline 10 X 3, 20 mg x 3, 30 mg Discussed treatment plan and patient voices understanding. Patient's questions answered appropriately. Medications and potential side effects were discussed and patient voices understanding. Return to the office as scheduled or as needed for worsening/no improvement. Kiera Carson APRN.CHILD DEVELOPMENT CONSULTANT documented in this encounter [facility] 10-20-2023 History of Presen t illness Narrative BMI Obesity Medicine FollowUp Note [facility] Visit October 20, 2023 I have communicated my name and active licensure. The patient's identity and physical location were verified at the time of this visit. Either the patient or their legal patient services representative has been informed of the risks and benefits of -- and alternatives to -- treatment through a remote evaluation and consents to proceed with the evaluation remotely. Patient Summary: Mary Burrell is 33 year old Female who presents virtually for follow-up evaluation of her obesity and related complications to the [facility] Bariatric and Metabolic [place]. In our previous visits we have outlined an individualized lifestyle intervention including a personalized nutrition recommendations and physical activity optimization. Index Surgery Date of Surgery: 07/07/2021 Surgeon: Phyllis Suresh MD Surgical Procedure: LAPAROSCOPIC GASTRIC RESTRICTIVE SURG W/ BYPASS & FRANCISCA-EN-Y 150CM OR LESS Pre-surgical weight: 156.5 kg (345 lb) Override Index Surgery Information? No Weight Graph See Epic Interval History: She specifies the following items as new or significant updates since the last appointment: Returns after 3 months Reports weight is decreased since the last visit. Patient reports total weight loss of -12lb or 5.6% TBW loss. Recent flue like symptoms, has improved over the last week. Obesity Medications: Phentermine. Start Date: 07/14/23 Weight: 212lb Effects Reduced hunger, Reduction of appetite, and Reduction of cravings Diet: Followed by BMI RD >100g protein daily Exercise: Cardio and weight training ?Sleep: No change, sleeping well ??Stress: none Review of Systems: The physical systems reviewed reveal no pathological symptoms that are pertinent to this visit History reviewed in Epic Allergies: Metoprolol Hives, Shortness of Breath Comment:heart racing Doxycycline Hives Latex Rash Percocet [Oxycodone* Itching Comment:Heart races Tomatoes Swelling Vicodin [Hydrocodon* Hives, Itching Current Outpatient Medications Medication Sig Phentermine HCl 37.5 mg tablet Take 1 tablet by mouth once daily for 90 days. levothyroxine (SYNTHROID) 100 mcg tablet Take 1 tablet by mouth daily before breakfast. (Patient not taking: Reported on 08/15/2023) vitamin A (AQUASOL A) 10,000 unit capsule Take 10,000 Units by mouth once daily. ferrous sulfate (IRON) 325 mg (65 mg iron) tablet Take 325 mg by mouth once daily. Cyanocobalamin 2,500 mcg subl Take 1 tablet by mouth once daily. Cholecalciferol, Vitamin D3, (VITAMIN D-3) 50 mcg (2,000 unit) cap Take 1 capsule by mouth once daily. calcium carbonate (CALCIUM 600 ORAL) Take 1 tablet by mouth once daily. No current facility-administered medications for this visit. PAST MEDICAL HISTORY Diagnosis Date Abnormal Pap [...] repeat 1 year FOOT SURGERY HX 2013 GASTRIC BYPASS HX 07/07/2021 [facility] Main LEEP PROCEDURE ([employer] DEPT)_*FL 12/2015 REMOVAL GALLBLADDER TONSILLECTOMY PRIMARY/SECONDARY <AGE 12 VAGINAL HYSTERECTOMY 02/24/2021 Dr Connell Social Connections: Socially Integrated (05/10/2022) Social Connection and Isolation Panel [NHANES] Frequency of Communication with Friends and Family: More than three times a week Frequency of Social Gatherings with Friends and Family: Once a week Attends Alevism Services: More than 4 times per year Active Member of Clubs or Organizations: Yes Attends Club or Organization Meetings: More than 4 times per year Marital Status: Family History Problem Relation Age of Onset Obesity Mother Diabetes Mother Heart Mother Hypertension Mother Blood Disease Father Arthritis Father Obesity Father Cancer Maternal Grandmother lung and liver Kidney Disease Maternal Grandfather Emphysema Paternal Grandmother Diabetes Maternal Uncle Coronary Artery Disease Maternal Uncle Collin Disease Paternal Aunt Collin Disease Paternal cousin Physical Exam: Weight: 92.6 kg (204 lb 3.2 oz) Patient reported weight. VIDEO EXAM: (if done, performed via video enabled technology) Results: reviewed labs with the patient. Impression: Mary Burrell is a 33 year old year old female with Class I obesity and the above obesity related complications. Body mass index is 31.98 kg/m . Currently taking Phentermine., responding well. Total weight loss of -12lb or 5.6% TBW loss since initiating phentermine pharmacotherapy. Appropriate response to medication, plan to continue as prescribed in conjunction with personalized dietary and lifestyle interventions. Continue regular physical activity including cardiovascular and strength training exercises. Plan: -- continue current lifestyle -- Continue Phentermine 37.5mg x 3 months -- return to clinic/virtually in 3 months I spent a total of 19 minutes on the date of the service which included preparing to see the patient, [id number] patient care, completing clinical documentation, obtaining and/or reviewing separately obtained history, performing a medically appropriate examination, counseling and educating the patient/family/caregiver, ordering medications, tests, or procedures, and independently interpreting results (not separately reported). All documentation from previous visit of 07/14/23 was copied and pasted, documentation has been reviewed and edited as necessary for today's visit. Ping Prince APRN.CNP documented in this encounter [facility] 10-07-[address] - 10/07/2023 3:33 PM EDT Nutrition Action Plan 1. Protein: Continue to strive for >85 g protein per day. Eat protein first at all meals. Lean meats, low fat/part skim dairy products, peanut butter, eggs, beans. 2. Eat 4 small meals per day or 3 meals and 1-2 small snacks for additional protein 3. Fluids: 64 oz per day, minimum. No carbonation, no caffeine, no calories, no alcohol. 4. Vitamin/minerals: Recommend switch to either Bariatric Fusion once daily capsule MVI OR Blue Pillar once daily capsule MVI; INCLUDE 8370-3352 mg calcium citrate per day (such as 3 powdered calcium sticks mixed with water per day) -https://www.bariatricfusion.com /products/rkd-tdo-pgb-bariatric- esaserlgkiyd-jdxxqrf-chgj-iron -https://[employer]/collecti ons/bariatric-multivitamin/produ cts/hgdjvamwejmv-35se-cohz-capsu le -https://Webra[employer]/collecti ons/calcium-supplements/products /pfavf-o-ecgbzsoc-calcium-citrat x-hf-rkd-go-sticks 5. Exercise: strive for daily activity - combine strength training and cardio for best workouts. Goal is 30 minutes 5-6x per week. 6. Practice these: Eat in this order protein first, vegetable and fruit second and whole grain carbohydrates last. * Separate eating and drinking by 30 minutes * Chew your food 20-30x per bite * Meals should last 30 minutes. 7. Continue to track meals and snacks with an marlin; caloric goal= 6411-8162 per day; aim for 50-60% calories from carbs and 20-30% calories from fat Follow Up on 01/05 at 3 PM documented in this encounter [facility] 10-07-2023 History of Presen t illness Narrative [facility] Nutrition Therapy: Virtual Consult - Re-assessment I have communicated my name and active licensure. The patient s identity and physical location were verified at the time of this visit. Either the patient or their legal patient services representative has been informed of the risks and benefits of -- and alternatives to -- treatment through a remote evaluation and consents to proceed with the evaluation remotely. Nutrition Diagnosis: Altered Gastrointestinal Tract Function, related to, S/P bariatric surgery, as evidenced by patient report and past surgical history and Overweight/obesity, related to, food/nutrition - related knowledge deficit, as evidenced by BMI above normative standard for age and gender RECOMMENDED MALNUTRITION DIAGNOSIS: NO MALNUTRITION IDENTIFIED NUTRITION CARE PLAN: Nutrition Intervention 10/07/2023: 1. Protein: Continue to strive for >85 g protein per day. Eat protein first at all meals. Lean meats, low fat/part skim dairy products, peanut butter, eggs, beans. 2. Eat 4 small meals per day or 3 meals and 1-2 small snacks for additional protein 3. Fluids: 64 oz per day, minimum. No carbonation, no caffeine, no calories, no alcohol. 4. Vitamin/minerals: Recommend switch to either Bariatric Fusion once daily capsule MVI OR [employer] health once daily capsule MVI; INCLUDE 7588-5325 mg calcium citrate per day (such as 3 powdered calcium sticks mixed with water per day) -https://www.bariatricfusion.com /products/ziy-hwe-sxq-bariatric- ibjgwqyfslew-mmrgmol-sapi-iron -https://[employer]PLAY.AlephD/collecti ons/bariatric-multivitamin/produ cts/ccoxprcyxuuj-82ih-acsl-capsu le -https://[employer]/collecti ons/calcium-supplements/products /kpwjz-v-vtdietze-calcium-citrat t-ix-res-go-sticks 5. Exercise: strive for daily activity - combine strength training and cardio for best workouts. Goal is 30 minutes 5-6x per week. 6. Practice these: Eat in this order protein first, vegetable and fruit second and whole grain carbohydrates last. * Separate eating and drinking by 30 minutes * Chew your food 20-30x per bite * Meals should last 30 minutes. 7. Continue to track meals and snacks with an marlin; caloric goal= 8183-7632 per day; aim for 50-60% calories from carbs and 20-30% calories from fat Nutrition Monitoring & Evaluation: BMI <30 Need for Follow up: 3 months as scheduled PROGRESS: 27 months post op RYGB ([place]) Net weight loss 180 lbs (380 lbs initial) Pre-surgery weight: 345 pounds 47 % TWL weight loss higher than expected 12 pounds weight loss since last assessment (212.6 lbs) Patient currently taking Phentermine under the supervision of Ping Prince CNP. She denies any impact of the medication. Diet recall indicates a consistent meal pattern with regular meals and snacks. Patient tolerates Phase V diet plan without complaints. She is diligent with tracking meals. She confirms to eat slowly and separates fluids from foods as reccommended. Physical activity meets recommendations; patient reports she feels she has built muscle as well. 1700 calories/day meets recommendations 140 gm protein intake/day meets recommendations 128 oz fluid intake/day meets recommendations Consistent with appropriate vitamin/minerals. Labs reveal no new labs to review Resting Metabolic Rate: 1644 Energy needs for weight loss: 3616-1021 calories per day Protein needs: 85 grams protein per day (1.2 g/kg IBW) Nutrition Intervention A Annamaria 07/07/23 1. Protein: Continue to strive for 85 g protein per day. Eat protein first at all meals. Lean meats, low fat/part skim dairy products, peanut butter, eggs, beans. MET 2. Eat 4 small meals per day or 3 meals and 1-2 small snacks for additional protein MET 3. Fluids: 64 oz per day, minimum. No carbonation, no caffeine, no calories, no alcohol. MET 4. Vitamin/minerals: Resume Bariatric Fusion Complete Chewable MVIs (2 in the AM, 2 In the PM) IN PROGRESS 5. Exercise: strive for daily activity - combine strength training and cardio for best workouts. Goal is 30 minutes 5-6x per week. MET 6. Practice these: Eat in this order protein first, vegetable and fruit second and whole grain carbohydrates last. MET * Separate eating and drinking by 30 minutes * Chew your food 20-30x per bite * Meals should last 30 minutes. 7. Track meals with [employer] Marlin; aim for 4076-6854 calories per day MET Actions to implement interventions:see assessment Diet History: 1st Meal 10 AM: fairlife core power protein shake (26 gm pro) 1st Snack 12 PM: algerian yogurt (15-20 gm pro) 2nd Meal 1 PM: 4.5 oz chicken(32 gm pro) and vegetables 2nd Snack 3 PM: fairlife protein shake (26 gm pro) OR splyt protein shake (20 gm pro) 3rd Meal 6 PM: 4 oz lean meat (28 gm pro), salad, and vegetables Beverages - 1 gallon water, sometimes coffee Alcohol - none Vitamins/Supplements - 70335 international unit(s) vitamin A, 2000 international unit(s) vitamin D, 2500 mcg vitamin B12, 65 mg iron, 2400 mg calcium Activity: Activities of Daily Living: Active 75% of the day. 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 Resting Metabolic Rate: 1650 Malnutrition Screening Significant unintentional weight loss? No Eating less than 75% of usual intake for more than 2 weeks? No Potential Signs of Inflammation: no identifiable sources Education Materials Provided: Your Guide to Sports Nutrition READINESS TO LEARN Cognitive ability: Alert and oriented Motivation to learn: Eager Family support: High - Very involved in pt care Instruction provided to: Patient Patient learns best by: Multiple Methods Factors affecting learning: None Physical limitations affecting learning: None Likelihood of Adherence: High Referred by: Kerwin HWANG Billing Type: Re-assess/15 min 2 units SIGNATURE: Stef Luis RD PATIENT NAME: Mary Burrell DATE: 10/07/2023 TIME: 3:32 AM documented in this encounter [facility] 08-15-2023 Instructions Donita Green MD - 08/15/2023 10:51 AM EDT Labs at the earliest US Thyroid- December 2023 documented in this encounter [facility] 08-15-2023 History of Presen t illness Narrative [facility] Initial Clinic Visit Note CONSULTING PHYSICIAN: Ping Prince APRN. CHILD DEVELOPMENT CONSULTANT My final recommendations will be communicated back to the requesting physician by way of shared Medical record or a letter via [place] mail Subjective: Mary Burrell is a 33 year old female here to establish care for Hashimotos thyroiditis and thyroid dysfunction How hypothyroidism was discovered: on labs after complaining of tachycardia and sweating episodes Current treatment: stopped taking LT4 prescribed for abnormal labs Prior treatment: LT4 200 mcg daily General symptoms: Fatigue: tired Weight change: 413 lbs before surgery, 192 last September 2022, lowest. 206 lbs at the time of calling OBGYN Thyroid antibodies checked, and were high Was referred to Endocrine- seen by Dr. Carmichael, who reviewed about Collin's, with risk of hypothyroidism, and told to start taking LT4 100 mcg daily to prevent thyroid dysfunction Within 4 weeks of starting levothyroxine she gained weight of 8 lbs and TSH was checked with low levels Appetite change: after starting levothyroxine she started having cravings Menstrual irregularities: hysterectomy done in Feb 2021 for a fibroma and has AUB Change in bowel habits: fluctuating since Gastric bypass Temperature intolerance: cold intolerance, when on levothyroxine she as having night sweats She reports difficulty swallowing intermittently, no difficult breathing, no hoarseness of voice In September 2022, with abdominal pains, went to ER, no issues noted- gall bladder was unremarkable Gastric bypass 2 years ago Exercises 60 to 90 mins every day 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 ferrous sulfate (IRON) 325 mg (65 mg iron) tablet Take 325 mg by mouth once daily. Cyanocobalamin 2,500 mcg subl Take 1 tablet by mouth once daily. Cholecalciferol, Vitamin D3, (VITAMIN D-3) 50 mcg (2,000 unit) cap Take 1 capsule by mouth once daily. calcium carbonate (CALCIUM 600 ORAL) Take 1 tablet by mouth once daily. Phentermine HCl 37.5 mg tablet Take 1 tablet by mouth once daily for 90 days. levothyroxine (SYNTHROID) 100 mcg tablet Take 1 tablet by mouth daily before breakfast. (Patient not taking: Reported on 08/15/2023) No current facility-administered medications on file prior to visit. PAST MEDICAL HISTORY: PAST MEDICAL HISTORY Diagnosis Date Abnormal Pap smear of cervix Class 3 severe obesity without serious comorbidity with body mass index (BMI) of 60.0 to 69.9 in adult (HCC) 10/07/2009 Esophagitis, unspecified High grade squamous intraepithelial lesion of cervix 01/01/2016 Iron deficiency 02/06/2021 Neck mass fatty deposit depression PAST SURGICAL HISTORY: PAST SURGICAL HISTORY Procedure Laterality Date ESOPHAGOGASTRODUODENOSCOPY TRANSORAL DIAGNOSTIC 03/10/2012 EGD repeat 1 year FOOT SURGERY HX 2013 GASTRIC BYPASS HX 07/07/2021 [facility] Main LEEP PROCEDURE ([employer] DEPT)_*FL 12/2015 REMOVAL GALLBLADDER TONSILLECTOMY PRIMARY/SECONDARY <AGE 12 VAGINAL HYSTERECTOMY 02/24/2021 Dr Connell FAMILY HISTORY: FAMILY HISTORY Problem Relation Age of Onset Obesity Mother Diabetes Mother Heart Mother Hypertension Mother Blood Disease Father Arthritis Father Obesity Father Cancer Maternal Grandmother lung and liver Kidney Disease Maternal Grandfather Emphysema Paternal Grandmother Diabetes Maternal Uncle Coronary Artery Disease Maternal Uncle Collin Disease Paternal Aunt Collin Disease Paternal cousin SOCIAL HISTORY: Social History Tobacco Use Smoking status: Former Years: .5 Types: Cigarettes Quit date: 11/23/2006 Years since quittin.7 Smokeless tobacco: Never Vaping Use Vaping Use: Never used Substance Use Topics Alcohol use: Not Currently Comment: stopped 08/19/2017 Drug use: No PHYSICAL EXAM: BP 122/84 (BP Site: Right Arm, BP Position: Sitting, BP Cuff Size: Regular Adult) Pulse 84 Resp 17 Ht 170.2 cm (5' 7) Wt 91.6 kg (202 lb) LMP 08/28/2020 (Exact Date) SpO2 98% BMI 31.64 kg/m Last 3 Encounter Wt Readings: Date: Wt: 08/15/2023 91.6 kg (202 lb) 07/14/2023 96.2 kg (212 lb) 07/07/2023 96.4 kg (212 lb 9.6 oz) General: Alert and oriented x3, no acute distress Eyes: Anicteric sclera. Pupils are equally round. Extraocular movements are intact. Neck supple, no cervical lymphadenopathy Thyroid: normal size, normal texture, no palpable nodules Lungs: Breathing unlabored, clear to auscultation. No wheezing, rhonchi, rales Heart regular rate and rhythm, no murmer Musculoskeletal: Muscular strength intact, No joint swelling, deformity, or tenderness Neuro: Gait normal. Sensation grossly intact. No focal findings Abdomen:Normal abdominal sounds, non tender to palpation Extremities: without edema, no deformities Skin: no rashes/ erythema LAB: TSH Date Value Ref Range Status 11/18/2022 1.780 0.270 - 4.200 mIU/L Final Comment: If the patient is , TSH reference range varies by gestational period: First Trimester (weeks 9-12): 0.180-2.990 mIU/L Second Trimester: 0.110-3.980 mIU/L Third Trimester: 0.480-4.710 mIU/L Luis F Araya et al. A Practical Approach for the Verifications and Determination of Site- and Trimester-Specific Reference Intervals for Thyroid Function tests in . Thyroid, 2019:29:3:412-420. Yoan E, et al. 2017 Guidelines of the [place] Thyroid Association for the Diagnosis and Management of Thyroid Disease during and the . Thyroid, 2017:27:3:315-389. 02/03/2023 TPO antibodies 266 IU/mL (0-34) Free T4: 0.96 ng/dL (0.76-1.46) 06/21/2023 TSH 1.41 IU/mL (0.358-3.74) Free T4 1.04 ng/dL (0.76-1.46) 25-hydroxy vitamin D 45.8 ng/mL US thyroid: 11/22/2022: CLINICAL HISTORY: Thyromegaly TECHNIQUE: Sonography and Doppler imaging of the thyroid was performed. Images were obtained and stored in a permanent archive. MQ: UST_1 COMPARISON: None. RESULT: Right Lobe: 6.5 x 2.0 x 2.5 cm; heterogeneous echogenicity, increased vascular flow on color Doppler imaging. Left Lobe: 6.3 x 1.8 x 2.1 cm; heterogeneous echogenicity, increased vascular flow on color Doppler imaging. Isthmus: 0.5 cm The most suspicious thyroid nodule(s) (up to four) as below: NODULE 1: Location: Right inferior Size: 0.8 x 0.9 x 0.6 cm Characteristics: Composition: Solid or almost completely solid, 2 points Echogenicity: Hypoechoic, 2 points Shape: [id number], 0 points Margin: Smooth, 0 points Echogenic foci (add points for all that apply): Punctate echogenic foci, 3 points Internal vascularity: present Interval growth: No prior available for comparison TI-RADS Category: TR5 ACR Recommendation: TI-RADS 5 nodule. Follow up imaging is advised annually for 5 years. NODULE 2: Location: Right inferior Size: 1.3 x 1.2 x 1.1 cm Characteristics: Composition: Solid or almost completely solid, 2 points Echogenicity: Hypoechoic, 2 points Shape: [id number], 0 points Margin: Smooth, 0 points Echogenic foci (add points for all that apply): Peripheral (rim) calcification (complete or incomplete), 2 points Internal vascularity: absent Interval growth: No prior available for comparison TI-RADS Category: TR4 ACR Recommendation: TI-RADS 4 nodule. Follow up imaging in 1, 2, 3 and 5 years is advised. ASSESSMENT/PLAN: Collin's thyroiditis: TPO antibodies positive But interesting to know that she was started on 100 mcg of levothyroxine while thyroid labs being normal, with an expectation to preserve thyroid function- this has resulted in possible hyperthyroid symptoms for patient as in HPI leading to discontinuation of medication by patient spontaneously Reviewed pathophysiology of Collin's and the course of disease, risk of thyroid dysfunction and no set predicted time for dysfunction. I discussed doing labs now, and possibility of start medication on appropriate dose as needed as per labs. If labs normal, she will not need any medication for thyroid at this time. Labs: TSH, free T4, free T3 Thyroid nodules: - Reviewed prevalence of thyroid nodules, risk of cancer, indication of biopsy, discussed about compressive symptoms and possible functioning nodule -will check US thyroid in November 2022 due to hx of thyroid nodules - Dicussed if stable nodules, we shall continue monitoring - Possibility of hiatal hernia or reflux leading to this due to history of obesity and gastric bypass surgery has also been discussed Follow up in 6 weeks Medical Decision Making: Problems: Moderate: New problem with uncertain prognosis Data: Unique source(s) for external note(s) reviewed: 2 Unique test result(s) reviewed: 3+ Unique test(s) ordered: 3+ Independent interpretation of test from other physician/QHCP Risk: Moderate: Decision on minor surgery w/ risk factors and Moderate risk from testing/treatment Medical Decision Making Level: 4 - Moderate Donita Green MD Endocrinology Associate Staff [facility] Endocrinology and Metabolism [place] [phone] documented in this encounter [facility] 07-14-2023 History of Presen t illness Narrative Virtual Visit (Audio/Visual)I have discussed the nature of this visit with the patient which will occur via [facility] (Phone, Virtual Visit) and she agrees to proceed with this interaction. I have communicated my name and active licensure. The patient's identity and physical location were verified at the time of this visit. Either the patient or their legal patient services representative has been informed of the risks and benefits of -- and alternatives to -- treatment through a remote evaluation and consents to proceed with the evaluation remotely. Name: Mary Burrell Index Surgery Date of Surgery: 07/07/2021 Surgeon: Phyllis Suresh MD Surgical Procedure: LAPAROSCOPIC GASTRIC RESTRICTIVE SURG W/ BYPASS & FRANCISCA-EN-Y 150CM OR LESS Pre-surgical weight: 156.5 kg (345 lb) Override Index Surgery Information? No Eric weight: 192lb Other Bariatric Surgeries None Visit: 2 years Today's Visit: Wt 96.2 kg (212 lb) BMI 34.22 kg/m2 BMI 34.22 kg/(m^2) Last Visit: Wt: 96.4 kg (212 lb 9.6 oz) BMI: 34.31 kg/(m^2) Total weight loss: 60.3 kg (133 lb) [place] weight: 72.4 kg (159 lb 11 oz) Excess weight: 84.1 kg (185 lb 5 oz) % of excess body weight lost: 60.3 kg (133 lb) (71.77% of excess weight loss) COMPLICATIONS SINCE LAST VISIT?: NONE DIET INTAKE: compliant with Phase V diet Calories/day ~1700 kcal/day Protein intake- goal of 85g/day Still feels restriction from surgery DAILY SUPPLEMENTS: Calcium: Calcium Citrate w/ vitamin D (1200 - 1500mg) Multivitamin & Minerals: No Iron Supplement: 45-60 mg Vitamin B12: 1000 mcg Vitamin D3: 2000 IU Other: N/A EXERCISE: Daily (1-2x/day) HIIT cardio and weight training Are you attending any Support Groups? Not known Current Outpatient Medications Medication Sig vitamin A (AQUASOL A) 10,000 unit capsule ferrous sulfate (IRON) 325 mg (65 mg iron) tablet Cyanocobalamin 2,500 mcg subl Cholecalciferol, Vitamin D3, (VITAMIN D-3) 50 mcg (2,000 unit) cap calcium carbonate (CALCIUM 600 ORAL) Phentermine HCl 37.5 mg tablet Take 1 tablet by mouth once daily for 90 days. No current facility-administered medications for this visit. REVIEW OF SYSTEMS: Denies nausea, vomiting, dumping syndrome, reactive hypoglycemia, gustatory rhinorrhea, Denies abdominal pain, constipation, diarrhea, melena, hematochezia, Denies paresthesias, gait abnormality, fatigue, weakness, lower extremity edema, and Denies taking NSAIDs OBESITY MEDICINE COMORBIDITIES: N/A PHYSICAL EXAM: Deferred, no abdominal issues Assessment A/P: Normal post-OP course Since ANNIKA patient has established with [facility] Endocrine team regarding new thyroid nodules (3) and diagnosis of Collin's Thyroiditis. Reports weight gain after initiating prescribed Levothyroxine by [facility] pharmacy sales representative. Increased weight, joint pain and overall fatigue with medication- patient discontinued. Reviewed labs with patient: TSH and free T4 WNL. Referral to [facility] Endocrine discussed with patient. Patient Active Problem List Severe obesity (BMI >= 40) (HCC) GERD (gastroesophageal reflux disease) Iron deficiency Morbid obesity (HCC) Calculus of gallbladder without cholecystitis without obstruction Incidental lung nodule, > 3mm and < 8mm Panic disorder Spotting in History of loop electrosurgical excision procedure (LEEP) of cervix affecting History of labor History of depression History of depression Family history of cystic fibrosis Class 3 severe obesity without serious comorbidity with body mass index (BMI) of 60.0 to 69.9 in adult (HCC) Resolved Hospital Problems No resolved problems to display. DISPOSITION: Return 3 month to EST/Standard office visit EDUCATION: Encouraged to continue with healthy lifestyle changes and incorporate cardiovascular and resistance training, Discussed weight loss expectations after bariatric and metabolic surgery, Advised PT to avoid NSAIDs, smoking tobacco given increased risk of marginal ulcers, or Discussed importance of protein intake as per the RDN note REFERRALS: [facility] LABS: Today: Reviewed with patient from OSH New Rx: Phentermine 37.5mg x 3 months Risk/benefits discussed at length including potential side effects of increased anxiety, insomnia, increased heart rate, and increased blood pressure. I have asked the patient to monitor blood pressure and avoid any stimulants (in the form of caffeinated beverages like coffee, tea, sports drinks) initially. The patient is currently enrolled in a diet and exercise program The patient has no known history of contraindications The patient is free from drug or ETHO abuse The patient is not or and is aware not to become while using this medication OARS was reviewed. PDMP website checked and validated. All prescriptions have been APPROPRIATELY filled. No suspicious activity was identified. Ping Prince APRN.RENEE documented in this encounter [facility] 07-07-2023 Instructions Stef Luis, MIRI - 07/07/2023 4:34 PM EST Nutrition Action Plan 1. Protein: Continue to strive for 85 g protein per day. Eat protein first at all meals. Lean meats, low fat/part skim dairy products, peanut butter, eggs, beans. 2. Eat 4 small meals per day or 3 meals and 1-2 small snacks for additional protein 3. Fluids: 64 oz per day, minimum. No carbonation, no caffeine, no calories, no alcohol. 4. Vitamin/minerals: Resume Bariatric Fusion Complete Chewable MVIs (2 in the AM, 2 In the PM) 5. Exercise: strive for daily activity - combine strength training and cardio for best workouts. Goal is 30 minutes 5-6x per week. 6. Practice these: Eat in this order protein first, vegetable and fruit second and whole grain carbohydrates last. * Separate eating and drinking by 30 minutes * Chew your food 20-30x per bite * Meals should last 30 minutes. 7. Track meals with [employer]; aim for 8452-6660 calories per day Follow Up on 10/06 at 3 PM documented in this encounter [facility] 07-07-2023 History of Presen t illness Narrative [facility] Nutrition Therapy: Virtual Consult - Re-assessment I have communicated my name and active licensure. The patient s identity and physical location were verified at the time of this visit. Either the patient or their legal patient services representative has been informed of the risks and benefits of -- and alternatives to -- treatment through a remote evaluation and consents to proceed with the evaluation remotely. Nutrition Diagnosis: Altered Gastrointestinal Tract Function, related to, S/P bariatric surgery, as evidenced by patient report and past surgical history and Overweight/obesity, related to, food/nutrition - related knowledge deficit, as evidenced by BMI above normative standard for age and gender RECOMMENDED MALNUTRITION DIAGNOSIS: NO MALNUTRITION IDENTIFIED NUTRITION CARE PLAN: Nutrition Intervention 07/07/2023: 1. Protein: Continue to strive for 85 g protein per day. Eat protein first at all meals. Lean meats, low fat/part skim dairy products, peanut butter, eggs, beans. 2. Eat 4 small meals per day or 3 meals and 1-2 small snacks for additional protein 3. Fluids: 64 oz per day, minimum. No carbonation, no caffeine, no calories, no alcohol. 4. Vitamin/minerals: Resume Bariatric Fusion Complete Chewable MVIs (2 in the AM, 2 In the PM) 5. Exercise: strive for daily activity - combine strength training and cardio for best workouts. Goal is 30 minutes 5-6x per week. 6. Practice these: Eat in this order protein first, vegetable and fruit second and whole grain carbohydrates last. * Separate eating and drinking by 30 minutes * Chew your food 20-30x per bite * Meals should last 30 minutes. 7. Track meals with [employer]; aim for 9850-5195 calories per day Nutrition Monitoring & Evaluation: BMI <30 Need for Follow up: 3 months as scheduled PROGRESS: 2 years post op RYGB ([place]) Net weight loss 167.4 lbs (380 lbs initial) Pre-surgery weight: 345 pounds 44 % TWL weight loss higher than expected 12.6 pounds weight gain in 7 months (199 lbs) Diet recall indicates a consistent meal pattern with regular meals and snacks. Patient reports she has been taking levothyroxine for thyroid disease, which may have contributed to weight gain. She tolerates Phase V diet plan with minimal complaints. Patient has difficulties tolerating some starches such as rice and pasta. She confirms to eat slowly and separates fluids from foods as recommended. Physical activity may be excessive and does not allow for adequate rest and recovery. ~1400 calories/day inadequate ~110 gm protein intake/day meets recommendations ~119 oz fluid intake/day meets recommendations Consistent with taking vitamin/minerals excessive in calcium and vitamin B12 Labs reveal no new labs to review Resting Metabolic Rate: 1682 Energy needs for weight loss: 4749-6445 calories per day (10-15 kcal/kg CBW) Protein needs: 85 grams protein per day (1.2 g/kg IBW) Nutrition Intervention Delia Bender 08/11/21 1. Continue to take all recommended vitamin/minerals. IN PROGRESS Some examples of vitamins/mineral companies: - Bariatric Fusion: 4 Complete Chewable Multivitamins per day (2 in the AM, 2 in the PM) [email or web address] - [employer] [facility]: 1 Bariatric Multivitamin and Calcium Citrate (total of 4474-4727 mg/day) * take calcium citrate separately from Multivitamin with iron at least 2 hours apart and 4 hours apart from additional calcium [email or web address] - Bariatric Choice: 4 Complete Multivitamins (chewables) per day [email or web address] - Bariatric Advantage: 2 Multivitamins and 3 Calcium Citrate Chewables per day * take calcium citrate separately from Multivitamin with iron at least 2 hours apart and 4 hours apart from additional calcium [email or web address] 2. Protein goal: 74-93 grams protein/day MET 3. Fluid goal: 64 ounces per day (no carbonation, caffeine, calories, alcohol) MET 4. Exercise goal: increase as tolerated to goal of 200 minutes/week combination cardiovascular and strength training exercise. IN PROGRESS 5. Practice mindful eating habits-take small portions, eat slowly, chew thoroughly MET Actions to implement interventions: see assessment Diet History: Breakfast - fairlife core power protein shake (26 gm pro) Snack - tuna pouch OR can (15-20 gm pro) Lunch - fairlife power protein shake (26 gm pro) Snack - banana OR apple with PB2 (6 gm pro) Dinner - 3 oz lean meat (21 gm pro) and vegetables/salad Snack - none Beverages - 119 oz water Alcohol - none Vitamins/Supplements - 09263 international unit(s) vitamin A, 2000 international unit(s) vitamin D, 2500 mcg vitamin B12, 65 mg iron, 41438 mg calcium Activity: Activities of Daily Living: Active 90%%+ of the day. 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 Malnutrition Screening Significant unintentional weight loss? No Eating less than 75% of usual intake for more than 2 weeks? No Potential Signs of Inflammation: no identifiable sources Education Materials Provided: None this visit READINESS TO LEARN Cognitive ability: Alert and oriented Motivation to learn: Eager Family support: Unable to assess - Family not present Instruction provided to: Patient Patient learns best by: Multiple Methods Factors affecting learning: None Physical limitations affecting learning: None Likelihood of Adherence: High Referred by: Kerwin HWANG Billing Type: Re-assess/15 min 2 units SIGNATURE: Stef Luis RD PATIENT NAME: Mary Burrell DATE: 07/07/2023 TIME: 4:33 pm documented in this encounter [facility] 02-04-2023 Miscellaneous Notes BMI SPECIALTY CARE COORDINATION TELEPHONE ENCOUNTER Phoned patient after received message from scheduling team. Follow up call placed to patient, no answer phone; left voice message with RN call back phone number. 02-09-2023 1636 Follow up call placed to patient, no answer phone; left voice message with RN call back phone number. documented in this encounter [facility] 12-23-2022 Miscellaneous Notes called the pt and rescheduled her with Nettie Canales, pt is currently refusing to see Stu Swain because of recent thyroid issues she is having. Please try to schedule with other provider(s) if possible at pt's request. documented in this encounter [facility] 11-22-2022 History of Presen t illness Narrative Radiology Service Progress Note PATIENT NAME: Mary Burrell DATE OF SERVICE: November 22, 2022 TIME: [...] 2022 1:26 PM documented in this encounter [facility] 11-18-2022 History of Presen t illness Narrative 32 year old female with c/o here for follow up Gaining weight despite running, exercising in gym with personal financial counselor 6 days 60-90 minutes. Abdominal pain from [...] (BMI) of 60.0 to 69.9 in adult ([facility]) 10/07/2009 Esophagitis, unspecified High grade squamous intraepithelial lesion of cervix 01/01/2016 Iron deficiency 02/06/2021 Neck mass fatty deposit depression PAST SURGICAL HISTORY Procedure Laterality Date ESOPHAGOGASTRODUODENOSCOPY TRANSORAL DIAGNOSTIC 03/10/2012 EGD repeat 1 year FOOT SURGERY HX 2013 LEEP PROCEDURE ([employer] DEPT)_*FL 12/2015 TONSILLECTOMY PRIMARY/SECONDARY <AGE 12 VAGINAL HYSTERECTOMY 02/24/2021 Dr Connell Social History Tobacco Use Smoking status: Former Years: 0.50 Types: Cigarettes Quit date: 11/23/2006 Years since quittin.9 Smokeless tobacco: Never Vaping Use Vaping Use: Never used Substance Use Topics Alcohol use: Not Currently Comment: stopped 08/19/2017 Drug use: No ACTIVE PROBLEM LIST Class 3 Severe Obesity Without Serious Comorbidity With Body Mass Index (Bmi) of 60.0 to 69.9 in Adult ([facility]) Spotting in History of Loop Electrosurgical Excision Procedure (Leep) of Cervix Affecting History of Labor History of Depression History of Depression Family History of Cystic Fibrosis Panic Disorder Calculus of Gallbladder Without Cholecystitis Without Obstruction Incidental Lung Nodule, > 3mm and < 8mm Morbid Obesity ([facility]) Iron Deficiency Gerd (Gastroesophageal Reflux Disease) Severe Obesity (Bmi >= 40) ([facility]) Current Outpatient Medications Medication Sig Dispense [...] Debra Swain PA-C documented in this encounter [facility] 09-21-2022 History of Presen t illness Narrative Radiology Service Progress Note PATIENT NAME: Mary Burrell DATE OF SERVICE: September 21, 2022 TIME: [...] PERIPHERAL IV DATA: Not applicable SIGNED BY: RT Lenka(R) September 21, 2022 1:42 PM documented in this encounter [facility] 09-21-2022 History of Presen t illness Narrative Chief Complaint Patient presents with: ER F/U: [facility] ER FU 09/20/22 HPI Mary Burrell is a 32 year old female who [...] (BMI) of 60.0 to 69.9 in adult ([facility]) 10/07/2009 Esophagitis, unspecified High grade squamous intraepithelial lesion of cervix 01/01/2016 Iron deficiency 02/06/2021 Neck mass fatty deposit depression Previous Surgical History PAST SURGICAL HISTORY Procedure Laterality Date ESOPHAGOGASTRODUODENOSCOPY TRANSORAL DIAGNOSTIC 03/10/2012 EGD repeat 1 year FOOT SURGERY HX 2013 LEEP PROCEDURE ([employer] DEPT)_*FL 12/2015 TONSILLECTOMY PRIMARY/SECONDARY <AGE 11 VAGINAL HYSTERECTOMY 02/24/2021 Dr Connell Family History FAMILY HISTORY Problem Relation Age [...] not taking: Reported on 09/21/2022) OTC PRODUCT FangtekEX ( Malik's Wart, Griffonia Seed, Folate, and, [...] to reach out to radiology department at [facility] for further clarification on their findings in [...] flags and when to seek medical attention. Caroline Miller PA-C documented in this encounter [facility] 09-20-2022 Discharge summary Note Date/Time September 20, 2022 5:20p m [facility] Medical Records Department [address] [place] [address] Emergency Department Summary 09/20/22 MR#: [id number] Acct: [id number] Name: MARY BURRELL Rep #:[id number] : 1990 32 From: Ranjit Smalls MD PCP: Dr. Asif Haque MD Status:REG E R Location: ED HPI History of Present Illness Chief Complaint: Flank Pain Informant: patient Narrative Narrative: Patient presents with right flank pain. Patient started with right flank pain last Tuesday. It sounds like it was relatively sudden in onset. She may have had dysuria but is not completely certain. No known hematuria. No known fever. The pain does wax and wane but never go away. Some days are pretty good and some days are worse. When the pain is bad she has had some nausea. She has vomited a couple times but that isnot uncommon for her since she had a Francisca-en-Y gastric bypass about 14 months ago. She has not had significant issues since that surgery. She does not thinkshe has ever had kidney stone before. She has had kidney infections. Nothing specifically makes her symptoms better or worse [facility] Medical History Abnormal uterine bleeding (AUB) Anxiety Depression Easy bruising Former smoker Heartburn History of irregular heartbeat History of pre-eclampsia Leg cramps Low iron Migraine headache Shoulder pain SOB (shortness of breath) Wears glasses Home Medications multivitamin 1 tab PO DAILY 09/20/22 [History Last Taken Unknown] Allergy/AdvReac Type Severity Reaction Status Date / Time metoprolol Allergy Severe Hives Verified 09/20/22 17:01 oxycodone HCl [From Percocet] Allergy Severe Hives Verified 09/20/22 17:01 hydrocodone bitartrate Allergy Intermediate Hives Verified 09/20/22 17:01 [From Vicodin] latex Allergy Mild Rash Verified 09/20/22 17:01 dicloxacillin Allergy Hives Verified 09/20/22 17:01 Family History Grandmother Cancer Surgical History H/O gastric bypass History of foot surgery History of tonsillectomy History of total vaginal hysterectomy (TVH) Hx LEEP (loop electrosurgical excision procedure), cervix, Hx of cholecystectomy S/P hernia surgery S/P vaginal hysterectomy (~02/24/21) Status post bilateral salpingectomy (~09/25/19) Social History Smoking Status: Former smoker second hand exposure: No alcohol intake: never substance use type: does not use caffeine: No what type of physical activity do you participate in: none seatbelt use: always do you feel safe at home: Yes additional social history: [employer] Narrative A complete review of systems was performed and is negative except as documented in the history of present illness. Some specific details below. Constitutional: No recent fevers or chills. No generalized malaise EYE: No visual complaints or pain. ENT: No difficulty swallowing. No swelling. No pain. CV: No chest pain or palpitations. Respiratory: No dyspnea. No hemoptysis. No difficulty taking breaths. GI: Please see history of present illness. : See history of present illness. Musculoskeletal: No recent trauma. No pains. Pain is not reproduced with twisting. Skin: No rash. Nondiaphoretic. Neuro: No weakness or numbness. Endocrine: No polyuria or polydipsia. EXAM Physical Exam Narrative Exam Narrative: CONSTITUTIONAL: Patient is nontoxic in appearance. The patient looks comfortable. HEENT: No notable trauma. Mucous membranes my elderly dry. No sinus tenderness. No indication of pain with swallowing. EYES: No conjunctival injection. No proptosis. CARDIOVASCULAR: Regular rate. Regular rhythm. No notable murmur. No JVD. RESPIRATORY: No respiratory distress. Breathing is unlabored. No wheezes. No rhonchi. No rales. No pain with a deep breath. GASTROINTESTINAL: Not distended. Bowel sounds are normal. No tenderness. No guarding. No rebound. No palpable mass. No bruit. She does have some CVA tenderness but her abdomen is overall rather benign. GENITOURINARY: No tenderness over the bladder. Mild right-sided CVA tenderness. MUSCULOSKELETAL: Atraumatic. No peripheral edema. No cord. No tenderness along the deep venous system. No asymmetry. NEUROLOGICAL: Patient is alert and appropriate. No focal deficit noted. SKIN: No noted rashes. No diaphoresis. PSYCHIATRIC: Patient is calm. Mood is appropriate. Const Vital Signs: 09/20/22 17:01 09/20/22 17:12 09/20/22 18:17 Temperature 99.7 F H Temperature Source Temporal Pulse Rate 92 82 Respiratory Rate 14 16 Respiratory Effort Normal Respiratory Pattern Normal Blood Pressure 127/74 H 114/87 H Blood Pressure Mean 91 96 Pulse Ox 100 99 Oxygen Delivery Method Room Air MDM MDM MDM Narrative Medical decision making narrative: Patient CBC shows no acute process. Patient's electrolytes show minimal elevation in the BUN but she was given IV fluids. Patient's liver function test are normal. Patient's urinalysis shows no sign of acute infection. My independent interpretation of her CT shows no acute process. I see no kidneystone. They do make mention on final read of interval hysterectomy which was known. But no evidence of acute intra-abdominal pelvic process or major interval change per radiology. Patient states that now maybe it does hurt more with twisting. It definitely hurts more when she stands up and is much better laying down. 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 She is comfortable managing this at home. We did discuss reasons to return that would include fevers recurrent vomiting worsening pain localization of pain blood in the stool or any other concerns Lab Data Attestation: I reviewed the patient's lab results. Labs: Laboratory Results - last 24 hr 09/20/22 09/20/22 09/20/22 17:10 17:20 17:20 WBC 6.8 RBC 4.69 Hgb 13.3 Hct 41.3 MCV 88.1 MCH 28.4 MCHC 32.2 RDW Std Deviation 42.9 RDW Coeff of Danette 13.2 Plt Count 276 MPV 9.7 Immature Gran % (Auto) 0.100 Neut % (Auto) 59.0 Lymph % (Auto) 34.9 Chase % (Auto) 4.4 Eos % (Auto) 1.3 Baso % (Auto) 0.3 Absolute Neuts (auto) 4.0 Absolute Lymphs (auto) 2.36 Nucleated RBC % 0 Sodium 139 Potassium 4.1 Chloride 104 Carbon Dioxide 27.0 Anion Gap 8 BUN 21 H Creatinine 0.76 Estim Creat Clear Calc 102.39 Est GFR (MDRD) Af Amer 113 Est GFR (MDRD) Non-Af 94 BUN/Creatinine Ratio 27.8 H Glucose 93 Calcium 9.0 Total Bilirubin 0.70 AST 15 ALT 31 Alkaline Phosphatase 80 Total Protein 7.2 Albumin 3.4 Globulin 3.8 Albumin/Globulin Ratio 0.9 Urine Color Yellow Urine Clarity Clear Urine pH 6.5 Ur Specific Alexander 1.015 Urine Protein Negative Urine Glucose (UA) Normal Urine Ketones 50 H Urine Occult Blood Negative Urine Nitrite Negative Urine Bilirubin Negative Urine Urobilinogen Normal Ur Leukocyte Esterase Negative Urine RBC 0 SEEN Urine WBC 0 SEEN Ur Squamous Epith Cells 5-10 SEEN Urine Bacteria 1+ Urine Mucus 0 SEEN Radiography Diagnostic Testing: Clinical Impression(s) from Imaging Studies Abdomen/Pelvis CT 09/20/22 17:17 IMPRESSION: 1. Interval hysterectomy since previous study. 2. No evidence of acute intra-abdominal or pelvic process or other major interval change. Electronically Signed: Yury Arora DO at 18:00 EDT Reading Location ID and State: [address] [place] [address] Tel [phone], Service support , Discharge Plan Triage Chief Complaint: Flank Pain ED Provider: Ranjit Smalls Dx/Rx/DC Orders Clinical Impression: Acute right flank pain, History of gastric bypass Instructions: ED Abdominal Pain Unkn Cause Fem Prescriptions: No Action multivitamin Tablet 1 tab PO DAILY Primary Care Provider: Asif Haque Referrals: Asif Haque MD [Primary Care Provider] - 3-5 Days Disposition Disposition: Home, Self Care What to do if you have Problems For any increased pain, shortness of breath, bleeding, nausea or vomiting, chestpain, or any unexpected problems, contact your Primary Care Provider. Call [facility] ([phone]) or report to the closest Emergency Room. Call 911 if necessary. 09/20/221910 <Electronically signed by Ranjit Smalls MD> Cosigner Signature (if applicable): CC: Dr. Asif Haque MD ~ Signed [facility] Work Phone: [phone] 536-498601-06-2023 History of Present illness Narrative* M Caron Swain PA-C - 05/14/2022 10:00 AM EST 32 year old female with c/o Saw Nettie 04/21/2022 f/u right ear infection [facility] NOW clinic: treated with augmentin Notes: + [...] (BMI) of 60.0 to 69.9 in adult ([facility]) 10/07/2009 Esophagitis, unspecified High grade squamous intraepithelial lesion of cervix 01/01/2016 Iron deficiency 02/06/2021 Neck mass fatty deposit depression PAST SURGICAL HISTORY Procedure Laterality Date ESOPHAGOGASTRODUODENOSCOPY TRANSORAL DIAGNOSTIC 03/10/2012 EGD repeat 1 year FOOT SURGERY HX 2013 LEEP PROCEDURE ([employer] DEPT)_*FL 12/2015 TONSILLECTOMY PRIMARY/SECONDARY <AGE 11 VAGINAL HYSTERECTOMY 02/24/2021 Dr Connell Social History Tobacco Use Smoking status: Former Years: 0.50 Types: Cigarettes Quit date: 11/23/2006 Years since quittin.4 Smokeless tobacco: Never Vaping Use Vaping Use: Never used Substance Use Topics Alcohol use: Not Currently Comment: stopped 08/19/2017 Drug use: No ACTIVE PROBLEM LIST Class 3 Severe Obesity Without Serious Comorbidity With Body Mass Index (Bmi) of 60.0 to 69.9 in Adult ([facility]) Spotting in History of Loop Electrosurgical Excision Procedure (Leep) of Cervix Affecting History of Labor History of Depression History of Depression Family History of Cystic Fibrosis Panic Disorder Calculus of Gallbladder Without Cholecystitis Without Obstruction Incidental Lung Nodule, > 3mm and < 8mm Morbid Obesity ([facility]) Iron Deficiency Gerd (Gastroesophageal Reflux Disease) Severe Obesity (Bmi >= 40) ([facility]) Current Outpatient Medications Medication Sig Dispense [...] lb) LMP 08/28/2020 (Exact Date) SpO2 96% BMI34.40 kg/m Pleasant well appearing overweight woman maintaining [...] BASIC Debra Swain PA-C [facility] Miscellaneous Notes* Telephone Encounter - Debra Swain PA-C - 04/22/2022 6:32 PM EST The following approved medication requests have been transmitted electronically. Requested Prescriptions Signed Prescriptions Disp Refills meclizine (ANTIVERT) 12.5 mg tab 30 tablet 1 Sig: Take 1 tablet by mouth every 6 hours as needed (dizziness). Debra Swain PA-C [facility] Miscellaneous Notes* Telephone Encounter - Candida Sotelo Ma - 04/22/2022 9:58 AM EST Detailed message sent to pt * Telephone Encounter - Debra Swain PA-C - 04/22/2022 9:50 AM EST [email or web address] Flu A The following approved medication requests have been transmitted electronically. Requested Prescriptions Signed Prescriptions Disp Refills oseltamivir (TAMIFLU) 75 mg capsule 10 capsule 0 Sig: Take 1 capsule by mouth twice daily for 5 days. Authorizing Provider: Debra SWAIN PA-C [facility] Instructions* Patient Instructions* Nettie Canales APRN.CHILD DEVELOPMENT CONSULTANT - 04/21/2022 9:49 AM EST Flu (Influenza) What is influenza? Influenza (also called flu) is a viral infection of the nose, throat, trachea, and bronchi (air passages). Outbreaks of flu occur almost every year, usually in late fall and winter. Flu viruses cause more severe symptoms and can cause more severe medical problems than cold viruses. Older adults, people whose immune systems are impaired, and people with chronic medical problems are particularly at risk for more severe flu symptoms or complications. How does it occur? The flu virus is almost always spread from person to person by droplets that are coughed or sneezedinto the air. It can also be spread by the hands of an infected person who has touched their mouth or nose. What are the symptoms? Influenza tends to start suddenly. You may feel fine one hour and have a high fever the next. The usual first symptoms are: chills and fever (often 101 to 103 F, or 38 to 40 C) sweating muscle aches headache. Symptoms soon to follow may include: runny nose and nasal congestion cough sore throat eyes sensitive to light. How is it diagnosed? Influenza can usually be diagnosed from your symptoms. Your healthcare provider may examine you to rule out other types of infection, such as strep throat and sinusitis. How is it treated? Usually you will recognize the symptoms and can manage them at home. It is a good idea to speak to your healthcare provider if you have symptoms of the flu and: You have heart disease, asthma, chronic bronchitis, kidney disease, diabetes, or another chronic medical problem. Your immune system does not work normally (for example, because you are taking steroids for anothermedical problem). Your symptoms become more severe, you have a painful cough, you are coughing up phlegm, or you are having trouble breathing. This may indicate you have pneumonia or bronchitis. To take care of yourself at home: Get plenty of rest. Drink a lot of liquids. Water, juice, and noncaffeinated drinks are best. Especially when you have a high fever, your body needs much more liquid than when you are healthy. Having enough fluids also helps the mucus in your sinuses and lungs to stay thin and easy to clear from the body. When the mucus is thin, it is less likely to cause a sinus infection or bronchitis. Consider taking acetaminophen or ibuprofen to relieve headaches and muscle aches and to lower a fever. (Do NOT use aspirin if you have the flu.) Some healthcare providers feel that because fever is part of the immune system's reaction to infection, it is better to let a fever run its course than totry to lower it. Letting the fever run its course, however, can be dangerous in children and older adults. Also, most healthy adults feel much better if the fever is decreased even just 1 or 2 degrees. If your nose or sinuses become congested, a decongestant medicine may help you feel better and may possibly help prevent ear or sinus infections. Take cough medicine to help control your cough. Antihistamine medicine can be helpful if a runny nose is making it hard for you to sleep. However, antihistamine has a very drying effect and may cause the mucus in your nose, throat, and lungs to become thick and dry. There are medicines your healthcare provider can prescribe that can make flu symptoms less severe. They may also help the symptoms not last as long. Examples of these drugs are amantadine (Symadine or Symmetrel), rimantadine (Flumadine), zanamivir (Relenza), and oseltamivir (Tamiflu). These flu medicines are available as tablets or nasal sprays. They must be started within the first 48 hours of illness to be effective. Usually they need to be taken only a few days. A common side effect of the tablets is lightheadedness or dizziness. How long will the effects last? Flu symptoms usually last 3 to 7 days. They often start improving gradually after the first 2 days or so. Infection with the flu virus often leads to other infections, such as ear, sinus, and bronchial infections. Pneumonia can also occur as a result of the flu. It can be caused by the flu virus itself or by bacteria invading lung tissues that have been damaged by the virus. Pneumonia is a common causeof in people over the age of 65 and often occurs during and after flu outbreaks. An unusual complication of flu is Sang's syndrome, which usually occurs in children and adolescentsand rarely occurs in adults. Sang's syndrome is not well understood but it involves failure of the liver and brain swelling, which together can lead to coma and sometimes . A link has been shownbetween the use of aspirin during influenza illness and the development of Sang's syndrome. For this reason it is best to avoid taking aspirin and other salicylates when you have the flu. What can I do to prevent influenza? Flu shots help prevent the flu. Because the flu virus strain varies from year to year, you need to get a new flu shot each year. February is the best time to get vaccinated, but you can still get vaccinated in March and later. Flu season can begin as early as February and last as late as September. Flu seasons can vary from region to region. If you are at high risk for infection and plan to travel to an area where you might be exposed to the flu, make sure you have an up-to-date flu shot before you go on your trip. Flu shots are usually about 70% effective in preventing flu. If you do get the flu even though you had your annual shot, the vaccine helps protect against severe and possibly life-threatening infection. A new alternative to flu shots is FluMist. It is a nasal spray form of the vaccine for healthy adults under 50 years of age. It costs more than the shot. As with flu shots, you will need a new dose of FluMist every year. women cannot take the nasal spray. Also, people with certain other medical conditions should not take FluMist. If you are considering using FluMist, ask your provider ifit is recommended for you. If a flu outbreak has begun and you have not had the flu vaccine and need some protection, your healthcare provider may prescribe medicine that can decrease your chances of getting the flu during theoutbreak. You will need to take these medicines for at least 2 weeks after you are vaccinated. If you don't get the vaccine, you need to take the medicine until the flu outbreak has left your community, which may be several weeks. If you do get the flu, the medicines can make your symptoms less severe. The simplest, oldest method of avoiding spread of infection is frequent hand washing, preferably with antibacterial soap from a sanitary dispenser. It is also a good practice not to eat in or near your workplace. Your hands or food might be contaminated with the virus particles from co-workers, customers, or schoolchildren, depending on your place of work. Published by [employer]. This content is reviewed periodically and is subject to change as new health information becomes available. The information is intended to inform and educate and is not a replacement for medical evaluation, advice, diagnosis or treatment by a healthcare professional. Developed by [employer] Copyright 2007 [employer] and/or one of its subsidiaries. All Rights Reserved. Special Instructions: Tamiflu as instructed Copyright [employer] 2007 [employer] Copyright 2008 [employer]. All rights reserved. - www.[employer] documented in this encounterHolzer Hospital12-14-2022 History of Present illness Narrative* Nettie Canales APRN.CNP - 04/21/2022 9:36 AM EST This is a 31 year old female who presents today with: Patient presents with: Recheck: Follow up- R ear infection; was seen at [facility] on 04/19 and started on antibiotic (Augmentin 875mg); fever last evening of 103.5 HISTORY OF PRESENT ILLNESS: Mary Fournier is a 31 year old female. Patient presents with: Recheck: Follow up- R ear infection; was seen at [facility] on 04/19 and started on antibiotic (Augmentin 875mg); fever last evening of 103.5 Pt presents today with continued URI symptoms. Ear pain started Tuesday night. Tuesday night -- sore throat and ear pain. Tuesday, took daughter to express care. She was positive for flu A. Pt went to the now clinic on Tuesday. Rapid flu negative. Treated for ear infection with augmentin. + cough. + n/v/d. Is taking fluids. She is using elderberry. Cannot take nsaids d/t gastric bypass. She reports that extra strength tylenol hypes her up. PAST MEDICAL HISTORY: PAST MEDICAL HISTORY Diagnosis Date Abnormal Pap smear of cervix Class 3 severe obesity without serious comorbidity with body mass index (BMI) of 60.0 to 69.9 in adult ([facility]) 10/07/2009 Esophagitis, unspecified High grade squamous intraepithelial lesion of cervix 01/01/2016 Iron deficiency 02/06/2021 Neck mass fatty deposit depression PAST SURGICAL HISTORY Procedure Laterality Date ESOPHAGOGASTRODUODENOSCOPY TRANSORAL DIAGNOSTIC 03/10/2012 EGD repeat 1 year FOOT SURGERY HX 2013 LEEP PROCEDURE ([employer] DEPT)_*FL 12/2015 TONSILLECTOMY PRIMARY/SECONDARY <AGE 11 VAGINAL HYSTERECTOMY 02/24/2021 Dr Connell ALLERGIES Doxycycline, Latex, Metoprolol, Percocet [Oxycodone-Acetaminophen], Vicodin [Hydrocodone-Acetaminophen], and Tomatoes MEDICATIONS Current Outpatient Medications Medication Sig folic acid 1 mg tablet Take 1 tablet by mouth once daily. clindamycin (CLEOCIN-T) 1 % gel Apply to affected area twice daily. mecobalamin (B12 ACTIVE ORAL) Take by mouth. pantoprazole DR (PROTONIX) 40 mg tablet Take 1 tablet by mouth once daily. ferrous sulfate 325 mg (65 mg iron) tablet Take 1 tablet by mouth daily with breakfast. BIOTIN ORAL Take by mouth. No current facility-administered medications for this visit. FAMILY HISTORY Problem Relation Age of Onset [...] Currently Comment: stopped 08/19/2017 Drug use: No EXAM: BP 124/82 Pulse 86 Temp (!) 38.3 C (100.9 F) Resp 18 LMP 08/28/2020 (Exact Date) SpO2 96% PHYSICAL EXAM: General Appearance: Well appearing, alert, in no acute distress, well-hydrated, well nourished.. Skin: Skin color, texture, turgor normal, no suspicious rashes or lesions. Head: Normocephalic, no masses, lesions, tenderness or abnormalities. Eyes: Anicteric sclera. Extraocular movements are intact. . Ears: External ears normal, canals clear. Normal TMs bilaterally. Neck: Supple, no adenopathy Lungs: Lungs clear to auscultation. No wheezing, rhonchi, rales.. Heart: RRR without murmur, gallop, or rubs. No ectopy. Abdomen: Abdomen soft, non-tender. Bowel sounds normal. No masses, organomegaly. Neurologic: Gait normal. ASSESSMENT/PLAN: 1. Upper respiratory symptom - ICD9: 786.9, ICD10: R09.89 Suspect that patient with influenza. Out of treatment window. Push fluids. Encouraged to try tylenol -- if she can't tolerate 500 mg, try 325 mg and take every 3-4 hours. Shecan also try liquid tylenol. - COVID WITH FLUA+B, ROUTINE Discussed treatment plan and patient voices understanding. Patient's questions answered appropriately. Medications and potential side effects were discussed and patient voices understanding. Return to the office as scheduled or as needed for worsening/no improvement. Nettie Canales APRN.CHILD DEVELOPMENT CONSULTANT documented in this encounterHolzer Hospital11-02-2022 History of Present illness Narrative* Josiah Gould MD - 03/10/2022 9:12 AM EDT Patient presents with: Nasal Congestion: SHERRIE ear pain, ST, OROURKE x6 days HPI: Feeling sick for 6 days. Initially vomiting and diarrhea; 4 days sinus symptoms. Positive symptoms: sinus pressure, Sore throat, Earache, abrupt onset near complete Nasal Congestion, unable to smell, Rhinorrhea, Headache, Post nasal drainage, improved low Fever, shortness of breath Negative symptoms: OTC: Cold Medicine Suspects she had COVID in May 2019. Home test negative this weekend. MEDICATIONS: Current Outpatient Medications Medication Sig folic acid 1 mg tablet Take 1 tablet by mouth once daily. ferrous sulfate 325 mg (65 mg iron) tablet Take 1 tablet by mouth daily with breakfast. BIOTIN ORAL Take by mouth. clindamycin (CLEOCIN-T) 1 % gel Apply to affected area twice daily. mecobalamin (B12 ACTIVE ORAL) Take by mouth. pantoprazole DR (PROTONIX) 40 mg tablet Take 1 tablet by mouth once daily. Multivitamin capsule Take 1 capsule by mouth once daily. No current facility-administered medications for this visit. ALLERGIES: ALLERGIES Allergen Reactions Doxycycline Hives Latex Metoprolol Hives SOB; hives; heart racing Percocet [Oxycodone* Other: See Comments Heart races,itching Vicodin [Hydrocodon* Hives, Itching Tomatoes Swelling VITALS: BP 118/80 Pulse 93 Temp 37.2 C (98.9 F) Resp 18 Wt 102.1 kg (225 lb) LMP 08/28/2020 (Exact Date) SpO2 98% BMI 36.34 kg/m PHYSICAL EXAM: GEN: pleasant, ill appearing HEENT: PERRL, EOMI, conjunctiva clear Ears: canals clear. TMs without erythema, bulge, or effusion Sinuses: tender frontal sinus, tender maxillary sinuses, unable to breath through nose Throat: moist mucous membranes, mild erythema, no exudate Neck: supple, no thyromegaly, no lymphadenopathy HEART: regular rate and rhythm, no murmurs LUNGS: clear to auscultation, no wheezes or crackles, no increased WOB ASSESSMENT/PLAN: 1. Acute non-recurrent sinusitis, unspecified location - ICD9: 461.9, ICD10: J01.90 Viral URI vs bacterial sinusitis. - 2019 CORONAVIRUS Continue supportive care. Abrupt onset of nasal occlusion can be a symptom of bacterial sinusitis: start- AMOXICILLIN 875 MG-POTASSIUM CLAVULANATE 125 MG TABLET Josiah Gould MD documented in this encounterHolzer Hospital10-06-2022 Instructions* Patient Instructions* Debra Swain PA-C - 02/11/2022 12:17 PM EDT Bactrim DS is a sulfa based antibiotic. Please take it as directed. If you should breakout in a rash, stop the medicine and call the office. Any antibiotic has the potential to cause diarrhea due to alteration in the normal bacterial chapo of the gut. This can be reduced by eating yogurt with active cultures daily while on the medication.If diarrhea becomes severe (watery, large volumes or more than 3-4/day) call the office. If you do not like yogurt, ask the pharmacist for a probiotic supplement such as lactobacillus or acidophillus. Women may experience yeast vaginitis due to alteration in the vaginal chapo. Symptoms include vaginal itching, irritation, and often a clumpy white discharge. If this occurs, there are several effective over the counter remedies available, including one-dose treatments. If these are unsuccessful, call the office. Antibiotics may interfer with control. If you are on oral contraceptives, use another form of protection (condoms, foams, jellies, diaphragm) throught the end of whatever pill pack you are on in 10 days. documented in this encounterHolzer Hospital10-06-2022 History of Present illness Narrative* Debra Swain PA-C - 02/11/2022 11:40 AM EDT 31 year old female with c/o here for follow up S/p bariatric surgery Current medications: Folic acid Bariatric vitamin Hair loss: seems to be improving Leg cramps: not nearly as often. Using Gatorade Zero at least once a day Last 2 Encounter Wt Readings: Date: Wt: 02/11/2022 107.5 kg (237 lb) 11/10/2021 122 kg (269 lb) Current medication: Pantoprazole 40mg AC stopped Current symptoms: none. Last Mg level if on PPI chronically: none. Heartburn is controlled: Yes. Dysphagia: No. Bloody or black stools: No. Bowel changes: No. Every morning to every other. Low libido: Stage usual sexual interest is high, since [...] Good relationship with partner. Status post hysterectomy HISTORIES FAMILY HISTORY Problem Relation Age of [...] year FOOT SURGERY HX 2013 LEEP PROCEDURE ([employer] DEPT)_*[place] 12/2015 TONSILLECTOMY PRIMARY/SECONDARY <AGE 11 VAGINAL HYSTERECTOMY 02/24/2021 Dr Connell Social History Tobacco Use Smoking status: Former Years: 0.50 Types: Cigarettes Quit date: 11/23/2006 Years since quittin.2 Smokeless tobacco: Never Vaping Use Vaping Use: Never used Substance Use Topics Alcohol use: Not Currently Comment: stopped 08/19/2017 Drug use: No ACTIVE PROBLEM LIST Class 3 Severe Obesity Without Serious Comorbidity With Body Mass Index (Bmi) of 60.0 to 69.9 in Adult ([facility]) Spotting in History of Loop Electrosurgical Excision Procedure (Leep) of Cervix Affecting History of Labor History of Depression History of Depression Family History of Cystic Fibrosis Panic Disorder Calculus of Gallbladder Without Cholecystitis Without Obstruction Incidental Lung Nodule, > 3mm and < 8mm Morbid Obesity ([facility]) Iron Deficiency Gerd (Gastroesophageal Reflux Disease) Severe Obesity (Bmi >= 40) ([facility]) Current Outpatient Medications Medication Sig Dispense Refill folic acid 1 mg tablet Take 1 tablet by mouth once daily. 90 tablet 3 ferrous sulfate 325 mg (65 mg iron) tablet Take 1 tablet by mouth daily with breakfast. 90 tablet 3 BIOTIN ORAL Take by mouth. clindamycin (CLEOCIN-T) 1 % gel Apply to affected area twice daily. 60 g 5 mecobalamin (B12 ACTIVE ORAL) Take by mouth. acetaminophen (TYLENOL EXTRA STRENGTH) 500 mg tablet Take 2 tablets by mouth every 6 hours as needed for pain. pantoprazole DR (PROTONIX) 40 mg tablet Take 1 tablet by mouth once daily. 90 tablet 3 Multivitamin capsule Take 1 capsule by mouth once daily. No current facility-administered medications for this visit. HEPATITIS B(1 of 3 - 3-dose series) Never done COVID-19 VACCINE(1) Never done PNEUMOCOCCAL(1 - PCV) Never done DTAP,TDAP,TD(6 - Tdap) due on 12/07/2005 DEPRESSION ASSESSMENT Never done INFLUENZA(1) due on 01/07/2022 EXAM: BP 120/76 Pulse 81 Resp 16 Wt 107.5 kg (237 lb) LMP 08/28/2020 (Exact Date) SpO2 98% BMI 38.28 kg/m Pleasant overweight adult woman in no acute distress. Alert and oriented all spheres. Normal affectand cognition. Speech normal. No deficits to learning [...] or gallop. No lifts, heaves, or rubs. Abdomen soft, nontender, active bowel sounds, no masses organomegaly. No inguinal or axillary lymphnodes. Patient does have discoloration and irritation in bilateral pannicular and groin folds with small red approximately 1 cm abscesses which are not draining. Extrem: no clubbing, cyanosis, edema. Distal pulses 2+/4, prompt capillary refill. ASSESSMENT/PLAN: 1. Iron deficiency anemia, unspecified iron deficiency anemia type - ICD9: 280.9, ICD10: D50.9 (primary diagnosis) Recheck labs 2. Folic acid deficiency - ICD9: 266.2, ICD10: E53.8 Stable, has outstanding lab work to recheck. Continue her 3. S/P bariatric surgery - ICD9: V45.86, ICD10: Z98.84 States she is not where her surgeon wants her goal to be but feels significantly improved. 4. Hair loss - ICD9: 704.00, ICD10: L65.9 Improving 5. Fatigue, unspecified type - ICD9: 780.79, ICD10: R53.83 Improving but persistent at some level 6. Leg cramps - ICD9: 729.82, ICD10: R25.2 Resolved 7. Cystic acne - ICD9: 706.1, ICD10: L70.0 8. Cellulitis of skin - ICD9: 682.9, ICD10: L03.90 Recurrent issues with hidradenitis: Patient has multiple allergies. We will start Bactrim DS 1 p.o.twice daily until issues in the groin improve and then drop to once a day. Once symptoms remain controlled over 3 to 6 months consider discontinuation of medication and antibacterial wash such as pHisoHex routinely. Reassess in 3 months. Debra Swain PA-C documented in this encounterHolzer Hospital07-27-2022 History of Present illness Narrative* Asia Eduardo, PhD - 12/02/2021 8:17 AM EDT [facility] DEPARTMENT OF PSYCHIATRY AND PSYCHOLOGY/[facility] Bariatric Behavioral Services Progress Note December 02, 2021 Billing codes: ABDI MAIN [address] Jayce CPT Code: 67602 Brief Emotional/Behavioral Assessment with scoring/documentation [id number] Virtual Group Psychotherapy Time initiated session: 12:00 PM to 1:00 PM Due to the federal emergency declaration and the need for ongoing mental health services, the following visit was completed virtually and informed consent obtained orally to reduce the risk of COVID-19 exposure. Oral consent to services was obtained by the evaluating psychologist prior to this session; written consent was also previously provided to the patient via [employer]. Platform: datapine Session #: 1 (with undersigned psychologist) Index Surgery Date of Surgery: 07/07/2021 Surgeon: Phyllis Suresh MD Surgical Procedure: LAPAROSCOPIC GASTRIC RESTRICTIVE SURG W/ BYPASS & FRANCISCA-EN-Y 150CM OR LESS Pre-surgical weight: 156.5 kg (345 lb) Psychologist: Reema Burr, PhD Subjective: Ms. Fournier returns for a ~5 month follow-up. Patients were reminded of the limits of confidentialityin the group setting and agreed to hold in confidence all matters discussed in the group. The patient's hospital experience and adjustment postsurgery were discussed. Patient discussed benefits they were experiencing after surgery and processed complications. Tools to enhance postsurgical outcomes,including coping skills for social situations and resources such as bariatric support groups, were offered. Patient set goals for lifestyle changes to enhance surgical outcomes. Patient identified challenges to accomplishing goals and lifestyle changes. Discussed normalizationof adjustment issues. She describes a post-surgery recovery as uncomplicated. Post-surgically, the patient reports feeling tired (also had 5 kids) and muscle cramping. The following post-surgical psychological complications were reported: grieving loss of food. Ms. Fournier has been working on behavior modification with eating, hydration, exercise, and vitamins. She denied binge and graze eating, smoking cigarettes, and drinking alcohol. Future goals include: continued behavior modification and advance diet as tolerated per BMI Nutrition; decrease self weighing to at least once a week, no more than once a day Pt noted weight stalled for ~1 month She has had some difficulty getting in protein Group shared ideas for protein and hydration. The patient reports weighing daily, sometimes 1-2x/day. She identified the following non-scale victories: clothing fits better, improved fitness Patient mood described as good. Affect is Appropriate and Mood congruent. Patient denies any suicidal or homicidal ideation, plan or intent at this time. Objective: pt arrived on time and paid excellent attention Patient Data Alcohol Use Disorders Identification Test - Short Version (AUDIT-C) AUDIT-C 12/02/2021 TOTAL SCORE 0 How often do you have a drink containing alcohol? Never How many drinks containing alcohol do you have on a typical day when you are drinking? 0 - 2 How often do you have four or more drinks on one occasion? Never In men, a score of 4 or more is considered positive; in women, a score of 3 or more is considered positive. 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 ferrous sulfate 325 mg (65 mg iron) tablet Take 1 tablet by mouth daily with breakfast. BIOTIN ORAL Take by mouth. clindamycin (CLEOCIN-T) 1 % gel Apply to affected area twice daily. ketoconazole (NIZORAL) 2 % cream Apply to affected area once daily. mecobalamin (B12 ACTIVE ORAL) Take by mouth. acetaminophen (TYLENOL EXTRA STRENGTH) 500 mg tablet Take 2 tablets by mouth every 6 hours as needed for pain. pantoprazole DR (PROTONIX) 40 mg tablet Take 1 tablet by mouth once daily. Multivitamin capsule Take 1 capsule by mouth once daily. No current facility-administered medications for this visit. Medication Changes: Patient appears to have been compliant in taking her medication as prescribed. Patient not currently taking psychotropic medications. Plan/Recommendations: 1) The patient may benefit from the following: *Follow up with psychology at 3, 6, 12, 18 months and yearly, or as needed *Attend bariatric surgery support groups *On-going follow-up with BMI team *Avoid nicotine/tobacco products, alcohol, and recreational drugs *Decrease self-weighing and focus on NSV's 2) Continue individual or group follow-up. Next appointment scheduled for 3-6 months (or sooner if needed). Asia Eduardo, Ph.D., Psychologist documented in this encounterHolzer Hospital07-09-2022 Miscellaneous Notes* Telephone Encounter - eDbra Swain PA-C - 11/14/2021 11:03 AM EDT See myc message Telephone on 11/14/21 IRON + TIBC FERRITIN BLD FOLATE SERUM The following approved medication requests have been transmitted electronically. Signed Prescriptions Disp Refills folic acid 1 mg tablet 90 tablet 3 Sig: Take 1 tablet by mouth once daily. Authorizing Provider: Debra SWAIN ferrous sulfate 325 mg (65 mg iron) tablet 90 tablet 3 Sig: Take 1 tablet by mouth daily with breakfast. Authorizing Provider: Debra SWAIN PA-C documented in this encounterHolzer Hospital07-05-2022 History of Present illness Narrative* Debra Swain PA-C - 11/10/2021 8:18 AM EDT 31 year old female with c/o s/p bariatric surgery with hair loss like never before, leg cramps. Sticking to 110g protein, 1000 maribel per day. Using bariatric vitamins, sublingual B12 and biotin. Leg and foot cramps multiple times a day. HISTORIES FAMILY HISTORY Problem Relation Age of [...] (BMI) of 60.0 to 69.9 in adult ([facility]) 10/07/2009 Esophagitis, unspecified High grade squamous intraepithelial lesion of cervix 01/01/2016 Iron deficiency 02/06/2021 Neck mass fatty deposit depression PAST SURGICAL HISTORY Procedure Laterality Date ESOPHAGOGASTRODUODENOSCOPY TRANSORAL DIAGNOSTIC 03/10/2012 EGD repeat 1 year FOOT SURGERY HX 2013 LEEP PROCEDURE ([employer] DEPT)_*[place] 12/2015 TONSILLECTOMY PRIMARY/SECONDARY <AGE 11 VAGINAL HYSTERECTOMY 02/24/2021 Dr Connell Social History Tobacco Use Smoking status: Former Smoker Years: 0.50 Types: Cigarettes Quit date: 11/23/2006 Years since quittin.9 Smokeless tobacco: Never Used Vaping Use Vaping Use: Never used Substance Use Topics Alcohol use: Not Currently Comment: stopped 08/19/2017 Drug use: No ACTIVE PROBLEM LIST Class 3 Severe Obesity Without Serious Comorbidity With Body Mass Index (Bmi) of 60.0 to 69.9 in Adult ([facility]) Spotting in History of Loop Electrosurgical Excision Procedure (Leep) of Cervix Affecting History of Labor History of Depression History of Depression Family History of Cystic Fibrosis Panic Disorder Calculus of Gallbladder Without Cholecystitis Without Obstruction Incidental Lung Nodule, > 3mm and < 8mm Morbid Obesity ([facility]) Iron Deficiency Gerd (Gastroesophageal Reflux Disease) Severe Obesity (Bmi >= 40) ([facility]) Current Outpatient Medications Medication Sig Dispense Refill BIOTIN ORAL Take by mouth. mecobalamin (B12 ACTIVE ORAL) Take by mouth. acetaminophen (TYLENOL EXTRA STRENGTH) 500 mg tablet Take 2 tablets by mouth every 6 hours as needed for pain. pantoprazole DR (PROTONIX) 40 mg tablet Take 1 tablet by mouth once daily. 90 tablet 3 Multivitamin capsule Take 1 capsule by mouth once daily. No current facility-administered medications for this visit. COVID-19 VACCINE(1) Never done PNEUMOCOCCAL(1 - PCV) Never done DTAP,TDAP,TD(6 - Tdap) due on 12/07/2005 EXAM: BP 114/72 Pulse 74 Wt 122 kg (269 lb) LMP 08/28/2020 (Exact Date) SpO2 99% BMI 43.44 kg/m Pleasant overweight adult woman in no acute distress. Alert and oriented all spheres. Normal affectand cognition. Speech normal. No deficits to learning [...] No JVD with HOB at 30 degrees. Extrem: no clubbing or cyanosis. Edema: none. Extremities are warm and pink with prompt capillary refill. No asterixis. ASSESSMENT/PLAN: 1. Hair loss - ICD9: 704.00, ICD10: L65.9 (primary diagnosis) - BASIC METABOLIC PNL - MAGNESIUM BLD - TSH BLD - VITAMIN B12 BLOOD - FOLATE SERUM - IRON + TIBC - FERRITIN BLD - CBC + DIFF 2. Fatigue, unspecified type - ICD9: 780.79, ICD10: R53.83 - BASIC METABOLIC PNL - MAGNESIUM BLD - TSH BLD - VITAMIN B12 BLOOD - FOLATE SERUM - IRON + TIBC - FERRITIN BLD - CBC + DIFF 3. S/P bariatric surgery - ICD9: V45.86, ICD10: Z98.84 - BASIC METABOLIC PNL - MAGNESIUM BLD - TSH BLD - VITAMIN B12 BLOOD - FOLATE SERUM - IRON + TIBC - FERRITIN BLD - CBC + DIFF 4. Leg cramps - ICD9: 729.82, ICD10: R25.2 - BASIC METABOLIC PNL - MAGNESIUM BLD - TSH BLD - VITAMIN B12 BLOOD - FOLATE SERUM - IRON + TIBC - FERRITIN BLD - CBC + DIFF 5. Cystic acne - ICD9: 706.1, ICD10: L70.0 groin - CLINDAMYCIN 1 % TOPICAL GEL - KETOCONAZOLE 2 % TOPICAL CREAM Debra Swain PA-C documented in this encounterHolzer Hospital05-26-2022 History of Present illness Narrative* Scooby Pollock MD - 10/01/2021 7:30 PM EDT The patient did not show up for this appointment. * Gavin Greenfield RD - 09/29/2021 7:28 AM EDT documented in this encounterHolzer Hospital05-23-2022 Nurse Note* Cathy Mac MA - 09/28/2021 4:02 PM EDTSummary: Post Op SMA Patient had Francisca-en-y Gastric Bypass Surgery on 07/07/[address] Suresh. Patient had a pre op weight of 340 pounds and current weight is 286.2 pounds. Patient states that She had the following improvements: Joint pain resolved and feels so much better. Patient had the following complications: skin rashes/infections. Patient is taking supplements. Cathy Mac MA documented in this encounterHolzer Hospital04-06-2022 History of Present illness Narrative* Pedro Jimenez MD - 08/12/2021 10:58 AM EDT Metabolic Surgery Postoperative Virtual Clinic Visit Name: Mary Fournier This visit was performed virtually via [employer] technology due to the COVID-19 epidemic as an effort toprotect patients and minimize exposure.? Virtual Visit (Audio/Visual)I have discussed the nature of this visit with the patient which will occur via [facility] (Phone, Virtual Visit) and she agrees to proceed with this interaction. Index Surgery Date of Surgery: 07/07/2021 Surgeon: Phyllis Suresh MD Surgical Procedure: LAPAROSCOPIC GASTRIC RESTRICTIVE SURG W/ BYPASS & FRANCISCA-EN-Y 150CM OR LESS Pre-surgical weight: 156.5 kg (345 lb) HPI: Today's Visit: Wt 140.6 kg (310 lb) BMI 50.06 kg/m2 BMI 50.06 kg/(m^2) Last Visit: Wt: 141 kg (310 lb 12.8 oz) BMI: 50.16 kg/(m^2) Total weight loss: 15.9 kg (35 lb) PHYSICAL EXAM: General Normal, healthy, cooperative, in no acute distress, obese Able to interact verbally by video conference Psych ORIENTATION: normal to time place, person and situation Mood/Affect: AFFECT AND MOOD: Normal Head/Neuro Normal size and shape Facial appearance normal Pulmonary respiratory effort normal Cardiovascular patient describes extremities normal, warm, no cyanosis,no clubbing, and no edema Abdominal Obese, Visible protrusions or hernias: No Incisions/scars: Dry and intact, without redness, Skin abnormal lesions not visualized Motor patient seen sitting with Normal appearing strength and coordination Assessment A/P: Normal post-OP course 31 y/o female s/p lap RYGB and lap jada, and omentopexy to cover ventral hernia. She is toleratingphase III diet well, denies nausea, vomiting. Intake more than 64 oz of fluids and 60 gm of proteins. She was seen by BMI nutrtion and advised to increase intake on protein to 73-90 gm of protein. Patient back at work and doing well. She has been excercising regularly and is expected to start weight lifting next week. - Continue phase III diet increase protein intake as per nutrition - C/w PPI daily and multivitamins - Weight lifting exercise gradually in 1 week - Follow up with BMI teams Patient Active Problem List Severe obesity (BMI >= 40) (HCC) GERD (gastroesophageal reflux disease) Iron deficiency Morbid obesity (HCC) Calculus of gallbladder without cholecystitis without obstruction Incidental lung nodule, > 3mm and < 8mm Panic disorder Spotting in History of loop electrosurgical excision procedure (LEEP) of cervix affecting History of labor History of depression History of depression Family history of cystic fibrosis Class 3 severe obesity without serious comorbidity with body mass index (BMI) of 60.0 to 69.9 in adult (HCC) Resolved Hospital Problems No resolved problems to display. DISPOSITION: Return 1 year to Post-op follow up/ individual office visit EDUCATION: Encouraged to continue with healthy lifestyle changes and incorporate cardiovascular andresistance training, Discussed weight loss expectations after bariatric and metabolic surgery, Advised PT to avoid NSAIDs, smoking tobacco given increased risk of marginal ulcers or Discussed importance of protein intake as per the RDN note REFERRALS: N/A LABS: Pedro Jimenez MD Advanced Laparoscopic & Bariatric Surgery Fellow Bariatric [facility] [place] [facility] Instructions* Patient Instructions* Summer Bender RD - 08/11/2021 12:51 PM EDT Your weight loss is: 1 months post op RYGB Net weight loss 70 pounds ( 380 lbs initial) 28 % EWL (243 lbs excess) 18 % TWL - tracking above anticipated range, increase intake to goal of 800-1000 calories per day Pre-surgery weight: 345 pounds Nutrition Recommendations: 1. Continue to take all recommended vitamin/minerals. Some examples of vitamins/mineral companies: - Bariatric Fusion: 4 Complete Chewable Multivitamins per day (2 in the AM, 2 in the PM) [email or web address].[email or web address] - [employer] [facility]: 1 Bariatric Multivitamin and Calcium Citrate (total of 1200- 1500 mg/day) * take calcium citrate separately from Multivitamin with iron at least 2 hours apart and 4 hours apart from additional calcium www.[email or web address] - Bariatric Choice: 4 Complete Multivitamins (chewables) per day [email or web address] Systems.[email or web address] - Bariatric Advantage: 2 Multivitamins and 3 Calcium Citrate Chewables per day * take calcium citrate separately from Multivitamin with iron at least 2 hours apart and 4 hours apart from additional calcium [email or web address] 2. Protein goal: 74-93 grams protein/day 3. Fluid goal: 64 ounces per day (no carbonation, caffeine, calories, alcohol) 4. Exercise goal: increase as tolerated to goal of 200 minutes/week combination cardiovascular and strength training exercise. 5. Practice mindful eating habits-take small portions, eat slowly, chew thoroughly Patient is to follow-up: 2 months to access adherence to goals, [phone] [facility] History of Present illness Narrative* Summer Bender RD - 08/11/2021 11:45 AM EDT This visit was performed virtually due to the COVID-19 epidemic as an effort to protect patients and minimize exposure. Consent from patient received to conduct visit virtually. This Team Access Model visit is a virtual GROUP encounter. It required patient-provider interaction for the medical decision making as documented below. Patient reports weight (as measured by home scale) of 310.8 pounds. AMBULATORY PATIENT EDUCATION NOTE-Shared Nutrition Group TOPIC: LIFE STYLE CHANGES: Post-op weight loss surgery: Diet and Exercise READINESS TO LEARN COGNITIVE ABILITY: Alert and oriented MOTIVATION TO LEARN: Interested FAMILY SUPPORT: Unable to assess - Family not present INSTRUCTION PROVIDED TO: Patient PATIENT LEARNS BEST BY: Multiple Methods FACTORS AFFECTING LEARNING: None PHYSICAL LIMITATIONS AFFECTING LEARNING: None LEARNING RESPONSE DIAGNOSIS: Inadequate protein-energy intake, related to: RYGB, as evidenced by diet recall, patientupdate, and group discussion Overweight Obesity, related to; food/nutrition - related knowledge deficit, as evidenced by BMI above normative standard for age and gender Malnutrition Screening Significant unintentional weight loss? No Eating less than 75% of usual intake for more than 2 weeks? Yes, advancing per bariatric protocol Nutritional status: METHOD OF INSTRUCTION: Individual instruction Group class instruction PATIENT / FAMILY RESPONSE: Nutrition outcome statement: Expect attention to diet to assist with weight management and minimum 1200 calories/2 liters of fluids per day. 1 months post op RYGB Net weight loss 70 pounds ( 380 lbs initial) 28 % EWL (243 lbs excess) 18 % TWL - tracking above anticipated range Pre-surgery weight: 345 pounds Diet recall indicates consistent meal pattern with small frequent meals. Meals are protein-dense and in appropriate portion sizes. Following Phase 3 diet currently. Patient reports feeling well overall, all questions answered. 600-700 calories/day - slightly insufficient 70-80 gm protein intake/day - meeting needs 64 oz fluid intake/day - meeting needs Taking all vitamin/minerals, however incorrect type of MVI; taking ADEK MVI rather than standard bariatric MVI. Labs not yet available for review Resting Metabolic Rate: 2137 Energy needs for weight loss 5564-1249 (10-15 maribel/kg current weight) Protein needs: 74-93 grams protein per day (1.2 - 1.5 g/kg IBW kg) Exercise - not yet fully cleared by surgeon - some light weight resistance activities Reviewed nutrition principles of: 1. Continue to take all recommended vitamin/minerals. Some examples of vitamins/mineral companies: - Bariatric Fusion: 4 Complete Chewable Multivitamins per day (2 in the AM, 2 in the PM) www.bariatricfusion.com - [employer]: 1 Bariatric Multivitamin and Calcium Citrate (total of 1200- 1500 mg/day) * take calcium citrate separately from Multivitamin with iron at least 2 hours apart and 4 hours apart from additional calcium [email or web address] - Bariatric Choice: 4 Complete Multivitamins (chewables) per day Www.[email or web address].[email or web address] - Bariatric Advantage: 2 Multivitamins and 3 Calcium Citrate Chewables per day * take calcium citrate separately from Multivitamin with iron at least 2 hours apart and 4 hours apart from additional calcium Www.[email or web address] [email or web address] 2. Protein goal: 74-93 grams protein/day 3. Fluid goal: 64 ounces per day (no carbonation, caffeine, calories, alcohol) 4. Exercise goal: increase as tolerated to goal of 200 minutes/week combination cardiovascular and strength training exercise. 5. 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 01/01/2016 09/08/2020 Overview: S/p LÓPEZ bx, follow up PAP in 2017 was negative Difficulty walking 12/14/2012 10/22/2015 Fracture of 5th metatarsal 07/21/201210/21 Esophagitis, unspecified 03/10/2012 016 Weight gain 08/21/2009 10/22/2015 Obesity 08/21/2009 10/22/2015 documented as of this encounter (statuses as of 08/11/2021) [facility] of [facility] illness Narrative* Problem Noted Date Resolved Date 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 01/01/2016 09/08/2020 Overview: S/p LEEP bx, follow up PAP in 2017 was negative Difficulty walking 12/14/2012 10/22/2015 Fracture of 5th metatarsal 07/21/201210/21 Esophagitis, unspecified 03/10/2012 016 Weight gain 08/21/2009 10/22/2015 Obesity 08/21/2009 10/22/2015 documented as of this encounter (statuses as of 08/12/2021) [place] [id number] History of Past illness Narrative* Problem Noted Date Resolved Date 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 01/01/2016 09/08/2020 Overview: S/p LEEP bx, follow up PAP in 2017 was negative Difficulty walking 12/14/2012 10/22/2015 Fracture of 5th metatarsal 07/21/201210/21 Esophagitis, unspecified 03/10/2012 016 Weight gain 08/21/2009 10/22/2015 Obesity 08/21/2009 10/22/2015 documented as of this encounter (statuses as of 10/01/2021) [address]25-2016 History of Past illness Narrative* Problem Noted Date Resolved Date 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 01/01/2016 09/08/2020 Overview: S/p LEEP bx, follow up PAP in 2017 was negative Difficulty walking 12/14/2012 10/22/2015 Fracture of 5th metatarsal 07/21/201210/21 Esophagitis, unspecified 03/10/2012 016 Weight gain 08/21/2009 10/22/2015 Obesity 08/21/2009 10/22/2015 documented as of this encounter (statuses as of 11/10/2021) [address]25-2016 History of Past illness Narrative* Problem Noted Date Resolved Date 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 01/01/2016 09/08/2020 Overview: S/p LEEP bx, follow up PAP in 2017 was negative Difficulty walking 12/14/2012 10/22/2015 Fracture of 5th metatarsal 07/21/201210/21 Esophagitis, unspecified 03/10/2012 016 Weight gain 08/21/2009 10/22/2015 Obesity 08/21/2009 10/22/2015 documented as of this encounter (statuses as of 11/14/2021) [facility] Narrative* Problem Noted Date Resolved Date 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 01/01/2016 09/08/2020 Overview: S/p LEEP bx, follow up PAP in 2017 was negative Difficulty walking 12/14/2012 10/22/2015 Fracture of 5th metatarsal 07/21/201210/21 Esophagitis, unspecified 03/10/2012 016 Weight gain 08/21/2009 10/22/2015 Obesity 08/21/2009 10/22/2015 documented as of this encounter (statuses as of 11/14/2021) [place] [id number] History of Past illness Narrative* Problem Noted Date Resolved Date 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 01/01/2016 09/08/2020 Overview: S/p LEEP bx, follow up PAP in 2017 was negative Difficulty walking 12/14/2012 10/22/2015 Fracture of 5th metatarsal 07/21/201210/21 Esophagitis, unspecified 03/10/2012 016 Weight gain 08/21/2009 10/22/2015 Obesity 08/21/2009 10/22/2015 documented as of this encounter (statuses as of 12/07/2021) [facility] Narrative* Problem Noted Date Resolved Date 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 01/01/2016 09/08/2020 Overview: S/p LEEP bx, follow up PAP in 2017 was negative Difficulty walking 12/14/2012 10/22/2015 Fracture of 5th metatarsal 07/21/201210/21 Esophagitis, unspecified 03/10/2012 016 Weight gain 08/21/2009 10/22/2015 Obesity 08/21/2009 10/22/2015 documented as of this encounter (statuses as of 02/11/2022) [place] [id number] History of Past illness Narrative* Problem Noted Date Resolved Date 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 01/01/2016 09/08/2020 Overview: S/p LEEP bx, follow up PAP in 2017 was negative Difficulty walking 12/14/2012 10/22/2015 Fracture of 5th metatarsal 07/21/201210/21 Esophagitis, unspecified 03/10/2012 016 Weight gain 08/21/2009 10/22/2015 Obesity 08/21/2009 10/22/2015 documented as of this encounter (statuses as of 03/10/2022) [address]25-2016 History of Past illness Narrative* Problem Noted Date Resolved Date 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 01/01/2016 09/08/2020 Overview: S/p LEEP bx, follow up PAP in 2017 was negative Difficulty walking 12/14/2012 10/22/2015 Fracture of 5th metatarsal 07/21/201210/21 Esophagitis, unspecified 03/10/2012 016 Weight gain 08/21/2009 10/22/2015 Obesity 08/21/2009 10/22/2015 documented as of this encounter (statuses as of 04/21/2022) [address]25-2016 History of Past illness Narrative* Problem Noted Date Resolved Date 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 01/01/2016 09/08/2020 Overview: S/p LEEP bx, follow up PAP in 2017 was negative Difficulty walking 12/14/2012 10/22/2015 Fracture of 5th metatarsal 07/21/201210/21 Esophagitis, unspecified 03/10/2012 016 Weight gain 08/21/2009 10/22/2015 Obesity 08/21/2009 10/22/2015 documented as of this encounter (statuses as of 04/22/2022) [address]25-2016 History of Past illness Narrative* Problem Noted Date Resolved Date 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 01/01/2016 09/08/2020 Overview: S/p LEEP bx, follow up PAP in 2017 was negative Difficulty walking 12/14/2012 10/22/2015 Fracture of 5th metatarsal 07/21/201210/21 Esophagitis, unspecified 03/10/2012 016 Weight gain 08/21/2009 10/22/2015 Obesity 08/21/2009 10/22/2015 documented as of this encounter (statuses as of 05/15/2022) [facility] Narrative* Problem Noted Date Resolved Date 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 01/01/2016 09/08/2020 Overview: S/p LEEP bx, follow up PAP in 2017 was negative Difficulty walking 12/14/2012 10/22/2015 Fracture of 5th metatarsal 07/21/201210/21 Esophagitis, unspecified 03/10/2012 016 Weight gain 08/21/2009 10/22/2015 Obesity 08/21/2009 10/22/2015 documented as of this encounter (statuses as of 06/07/2022) [facility] Narrative* Problem Noted Date Resolved Date 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 01/01/2016 09/08/2020 Overview: S/p LEEP bx, follow up PAP in 2017 was negative Difficulty walking 12/14/2012 10/22/2015 Fracture of 5th metatarsal 07/21/201210/21 Esophagitis, unspecified 03/10/2012 016 Weight gain 08/21/2009 10/22/2015 Obesity 08/21/2009 10/22/2015 documented as of this encounter (statuses as of 09/21/2022) [place] [id number] History of Past illness Narrative* Problem Noted Date Diagnosed Date Resolved Date High grade squamous intraepi thelial lesion of cervix 01/01/2016 09/08/2020 Overview: S/p LEEP bx, follow up PAP in 2017 was negative Difficulty walking 12/14/2012 6 Fracture of 5th metatarsal 07/21/2012 0 10/22/2015 Esophagitis, unspecified 03/10/2012 Weight gain 08/21/2009 10/22/2015 Obesity 08/21/2009 10/22/2015 documented as of this encounter (statuses as of 11/19/2022) [facility] Narrative* Problem Noted Date Diagnosed Date Resolved Date High grade squamous intraepi thelial lesion of cervix 01/01/2016 09/08/2020 Overview: S/p LEEP bx, follow up PAP in 2017 was negative Difficulty walking 12/14/2012 6 Fracture of 5th metatarsal 07/21/2012 0 10/22/2015 Esophagitis, unspecified 03/10/2012 Weight gain 08/21/2009 10/22/2015 Obesity 08/21/2009 10/22/2015 documented as of this encounter (statuses as of 12/24/2022) [facility] Narrative* Problem Noted Date Diagnosed Date Resolved Date High grade squamous intraepi thelial lesion of cervix 01/01/2016 09/08/2020 Overview: S/p LEEP bx, follow up PAP in 2017 was negative Difficulty walking 12/14/2012 6 Fracture of 5th metatarsal 07/21/2012 0 10/22/2015 Esophagitis, unspecified 03/10/2012 Weight gain 08/21/2009 10/22/2015 Obesity 08/21/2009 10/22/2015 documented as of this encounter (statuses as of 02/11/2023) [facility] Narrative* Problem Noted Date Diagnosed Date Resolved Date High grade squamous intraepi thelial lesion of cervix 01/01/2016 09/08/2020 Overview: S/p LEEP bx, follow up PAP in 2017 was negative Difficulty walking 12/14/2012 6 Fracture of 5th metatarsal 07/21/2012 0 10/22/2015 Esophagitis, unspecified 03/10/2012 Weight gain 08/21/2009 10/22/2015 Obesity 08/21/2009 10/22/2015 documented as of this encounter (statuses as of 03/13/2023) [facility] Narrative* Problem Noted Date Diagnosed Date Resolved Date High grade squamous intraepi thelial lesion of cervix 01/01/2016 09/08/2020 Overview: S/p LEEP bx, follow up PAP in 2017 was negative Difficulty walking 12/14/2012 6 Fracture of 5th metatarsal 07/21/2012 0 10/22/2015 Esophagitis, unspecified 03/10/2012 Weight gain 08/21/2009 10/22/2015 Obesity 08/21/2009 10/22/2015 documented as of this encounter (statuses as of 07/08/2023) [facility] Narrative* Problem Noted Date Diagnosed Date Resolved Date High grade squamous intraepi thelial lesion of cervix 01/01/2016 09/08/2020 Overview: S/p LEEP bx, follow up PAP in 2016 was negative Difficulty walking 12/14/2012 6 Fracture of 5th metatarsal 07/21/2012 0 10/22/2015 Esophagitis, unspecified 03/10/2012 Weight gain 08/21/2009 10/22/2015 Obesity 08/21/2009 10/22/2015 documented as of this encounter (statuses as of 07/14/2023) [facility] Narrative* Problem Noted Date Diagnosed Date Resolved Date High grade squamous intraepi thelial lesion of cervix 01/01/2016 09/08/2020 Overview: S/p LEEP bx, follow up PAP in 2017 was negative Difficulty walking 12/14/2012 6 Fracture of 5th metatarsal 07/21/2012 0 10/22/2015 Esophagitis, unspecified 03/10/2012 Weight gain 08/21/2009 10/22/2015 Obesity 08/21/2009 10/22/2015 documented as of this encounter (statuses as of 08/15/2023) [facility] Impaired intestinal absorption- Primary Unspecified intestinal malabsorption S/P gastric bypass Bariatric surgery status Body mass index 50.0-59.9, adult (HCC) Body Mass Index 50.0-59.9, adult Dietary counseling and surveillance Dietary surveillance and counseling documented in [facility] encounter [facility]* Diagnosis Body mass index 50.0-59.9, adult (HCC)- Primary Body Mass Index 50.0-59.9, adult S/P gastric bypass Bariatric surgery status documented in this encounter [facility]* Diagnosis NO SHOW- Primary documented in this encounter [facility]* Diagnosis Hair loss- Primary Alopecia, unspecified Fatigue, unspecified type S/P bariatric surgery Bariatric surgery status Leg cramps Cramp of limb Cystic acne Other acne documented in this encounter [facility]* Diagnosis Iron deficiency anemia, unspecified iron deficiency anemia type- Primary Folic acid deficiency Other B-complex deficiencies S/P bariatric surgery Bariatric surgery status documented in this encounter [facility]* Diagnosis Psychological factors affecting medical condition- Primary Psychic factors associated with diseases classified elsewhere Postgastric surgery syndrome Postgastric surgery syndromes documented in this encounter [facility]* Diagnosis Iron deficiency anemia, unspecified iron deficiency anemia type- Primary Folic acid deficiency Other B-complex deficiencies S/P bariatric surgery Bariatric surgery status Hair loss Alopecia, unspecified Fatigue, unspecified type Leg cramps Cramp of limb Cystic acne Other acne Cellulitis of skin Cellulitis and abscess of unspecified site documented in this encounter [facility]* Diagnosis Acute non-recurrent sinusitis, unspecified location- Primary [facility] Diagnosis Upper respiratory symptom- Primary Other symptoms involving respiratory system and chest [facility] Diagnosis Influenza A- Primary Influenza with other respiratory manifestations [facility] Diagnosis Vertigo- Primary Dizziness and giddiness [facility]* Diagnosis S/P bariatric surgery- Primary Bariatric surgery status Hair loss Alopecia, unspecified Cystic acne Other acne Influenza A Influenza with other respiratory manifestations Loss of libido Decreased libido Prediabetes Other abnormal glucose Screening for lipid disorders documented in this encounter [facility]* Diagnosis Onset Date Resolution Status Acute pharyngitis acute Contact with or suspected ex posure to other viral communicable disease acute [facility] Work Phone: Evaluation note* Diagnosis RUQ pain- Primary Abdominal pain, right upper quadrant Right flank pain Abdominal pain, unspecified site Nausea Nausea alone Epigastric pain Abdominal pain, epigastric Acute constipation Unspecified constipation [facility]* Diagnosis Panic disorder- Primary Panic disorder without agoraphobia Thyromegaly Goiter, unspecified Morbid obesity (HCC) Morbid obesity Gastroesophageal reflux disease, unspecified whether esophagitis present [facility] Diagnosis Thyromegaly Goiter, unspecified [facility]* Diagnosis Onset Date Resolution Status Multiple thyroid nodules acu te Collin's thyroiditis repairer 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 Encounter for routine gynecological examination noneactive [facility] Work Phone: Evaluation note* Diagnosis Class 3 obesity (HCC)- Primary Dietary counseling and surveillance Dietary surveillance and counseling S/P gastric bypass Bariatric surgery status [facility] Diagnosis S/P gastric bypass- Primary Bariatric surgery status Collin's thyroiditis Chronic lymphocytic thyroiditis [facility] Diagnosis Thyroid nodule- Primary Nontoxic uninodular goiter Collin's thyroiditis Chronic lymphocytic thyroiditis [facility] Class 1 obesity- Primary Dietary counseling and surveillance Dietary surveillance and counseling S/P gastric bypass Bariatric surgery status Impaired intestinal absorption Unspecified intestinal malabsorption [facility] Diagnosis Class 1 obesity- Primary [facility] Diagnosis Tinea cruris- Primary Dermatophytosis of groin and perianal area Migraine with aura, not intractable, without status migrainosus Gastroesophageal reflux disease without esophagitis Esophageal reflux Other chronic pain [facility] Diagnosis Thyroid nodule Nontoxic uninodular goiter documented in this [facility] Pre-operative examination- Primary Preoperative examination, unspecified Morbid obesity (HCC) Morbid obesity Incidental lung nodule, > 3mm and < 8mm Solitary pulmonary nodule Iron deficiency Iron deficiency anemia, unspecified Panic disorder Panic disorder without agoraphobia Gastroesophageal reflux disease, unspecified whether esophagitis present Class 1 obesity- Primary Dietary counseling and surveillance Dietary surveillance and counseling S/P gastric bypass Bariatric surgery status Impaired intestinal absorption Unspecified intestinal malabsorption documented in this encounter [facility]* Diagnosis Pre-operative examination- Primary Preoperative examination, unspecified Morbid obesity (HCC) Morbid obesity Incidental lung nodule, > 3mm and < 8mm Solitary pulmonary nodule Iron deficiency Iron deficiency anemia, unspecified Panic disorder Panic disorder without agoraphobia Gastroesophageal reflux disease, unspecified whether esophagitis present S/P gastric bypass- Primary Bariatric surgery status documented in this encounter [facility] note* Diagnosis Pre-operative examination- Primary Preoperative examination, unspecified Morbid obesity (HCC) Morbid obesity Incidental lung nodule, > 3mm and < 8mm Solitary pulmonary nodule Iron deficiency Iron deficiency anemia, unspecified Panic disorder Panic disorder without agoraphobia Gastroesophageal reflux disease, unspecified whether esophagitis present Right flank pain Abdominal pain, unspecified site RUQ pain Abdominal pain, right upper quadrant Epigastric pain Abdominal pain, epigastric Acute constipation Unspecified constipation documented in this encounter [facility] note* Diagnosis Pre-operative examination- Primary Preoperative examination, unspecified Morbid obesity (HCC) Morbid obesity Incidental lung nodule, > 3mm and < 8mm Solitary pulmonary nodule Iron deficiency Iron deficiency anemia, unspecified Panic disorder Panic disorder without agoraphobia Gastroesophageal reflux disease, unspecified whether esophagitis present Collin's thyroiditis- Primary Chronic lymphocytic thyroiditis Thyroid nodule Nontoxic uninodular goiter documented in this encounter [facility] note* Diagnosis Pre-operative examination- Primary Preoperative examination, unspecified Morbid obesity (HCC) Morbid obesity Incidental lung nodule, > 3mm and < 8mm Solitary pulmonary nodule Iron deficiency Iron deficiency anemia, unspecified Panic disorder Panic disorder without agoraphobia Gastroesophageal reflux disease, unspecified whether esophagitis present Class 1 obesity- Primary documented in this encounter [facility] note* Diagnosis Pre-operative examination- Primary Preoperative examination, unspecified Morbid obesity (HCC) Morbid obesity Incidental lung nodule, > 3mm and < 8mm Solitary pulmonary nodule Iron deficiency Iron deficiency anemia, unspecified Panic disorder Panic disorder without agoraphobia Gastroesophageal reflux disease, unspecified whether esophagitis present Bacterial sinusitis- Primary Unspecified sinusitis (chronic) documented in this encounter [facility] note* Diagnosis Pre-operative examination- Primary Preoperative examination, unspecified Morbid obesity (HCC) Morbid obesity Incidental lung nodule, > 3mm and < 8mm Solitary pulmonary nodule Iron deficiency Iron deficiency anemia, unspecified Panic disorder Panic disorder without agoraphobia Gastroesophageal reflux disease, unspecified whether esophagitis present Class 1 obesity- Primary Dietary counseling and surveillance Dietary surveillance and counseling S/P gastric bypass Bariatric surgery status Impaired intestinal absorption Unspecified intestinal malabsorption [facility] Diagnosis Pre-operative examination- Primary Preoperative examination, unspecified Morbid obesity (HCC) Morbid obesity Incidental lung nodule, > 3mm and < 8mm Solitary pulmonary nodule Iron deficiency Iron deficiency anemia, unspecified Panic disorder Panic disorder without agoraphobia Gastroesophageal reflux disease, unspecified whether esophagitis present S/P gastric bypass- Primary Bariatric surgery status documented in this encounter [facility] note* Diagnosis Pre-operative examination- Primary Preoperative examination, unspecified Morbid obesity (HCC) Morbid obesity Incidental lung nodule, > 3mm and < 8mm Solitary pulmonary nodule Iron deficiency Iron deficiency anemia, unspecified Panic disorder Panic disorder without agoraphobia Gastroesophageal reflux disease, unspecified whether esophagitis present Hypoglycemia after GI (gastrointestinal) surgery- Primary Other and unspecified postsurgical nonabsorption documented in this encounter [facility] note* Diagnosis Pre-operative examination- Primary Preoperative examination, unspecified Morbid obesity (HCC) Morbid obesity Incidental lung nodule, > 3mm and < 8mm Solitary pulmonary nodule Iron deficiency Iron deficiency anemia, unspecified Panic disorder Panic disorder without agoraphobia Gastroesophageal reflux disease, unspecified whether esophagitis present Hypoglycemia after GI (gastrointestinal) surgery- Primary Other and unspecified postsurgical nonabsorption documented in this encounter [facility] note* Diagnosis Pre-operative examination- Primary Preoperative examination, unspecified Morbid obesity (HCC) Morbid obesity Incidental lung nodule, > 3mm and < 8mm Solitary pulmonary nodule Iron deficiency Iron deficiency anemia, unspecified Panic disorder Panic disorder without agoraphobia Gastroesophageal reflux disease, unspecified whether esophagitis present Class 2 obesity- Primary Dietary counseling and surveillance Dietary surveillance and counseling S/P gastric bypass Bariatric surgery status Impaired intestinal absorption Unspecified intestinal malabsorption documented in this encounter [facility] note* Diagnosis Pre-operative examination- Primary Preoperative examination, unspecified Morbid obesity (HCC) Morbid obesity Incidental lung nodule, > 3mm and < 8mm Solitary pulmonary nodule Iron deficiency Iron deficiency anemia, unspecified Panic disorder Panic disorder without agoraphobia Gastroesophageal reflux disease, unspecified whether esophagitis present Class 2 severe obesity with serious comorbidity and body mass index (BMI) of 35.0 to 35.9 in adult, unspecified obesity type (HCC)- Primary Hypoglycemia after GI (gastrointestinal) surgery (HCC) Other and unspecified postsurgical nonabsorption [facility] noteNo assessment information availableBlLakewood [facility] Work Phone: Evaluation note* Diagnosis Pre-operative examination- Primary Preoperative examination, unspecified Morbid obesity (HCC) Morbid obesity Incidental lung nodule, > 3mm and < 8mm Solitary pulmonary nodule Iron deficiency Iron deficiency anemia, unspecified Panic disorder Panic disorder without agoraphobia Gastroesophageal reflux disease, unspecified whether esophagitis present Class 1 obesity- Primary Dietary counseling and surveillance Dietary surveillance and counseling S/P gastric bypass Bariatric surgery status Impaired intestinal absorption (HCC) Unspecified intestinal malabsorption [facility] Diagnostic Procedure Only (Routine) - Closed Specialty Diagnoses / Procedures Referred By Contac t Referred To Contact XR IMAGING Diagnoses Right flank pain RUQ pain Epigastric pain Acute constipation Procedures XR ABDOMEN 1V SUPINE RADIOLOGIC EXAM ABDOMEN 1 VIEW Caroline Miller PA-C [address] [place] [address] Xr Imaging Referral ID Status Reason Start Date Expiration Date V isits Requested Visits Authorized [id number] Closed Auto-Generate d Referral 09/21/2022 10/21/2023 1 1 * Diagnostic Procedure Only (Routine) - Authorized Specialty Diagnoses / Procedures Referred By Contac t Referred To Contact US IMAGING Diagnoses Right flank pain Procedures US ABD RIGHT UPPER QUADRANT US ABDOMINAL REAL TIME W/IMAGE LIMITED Caroline Miller PA-C [address] [place] [address] Us Imaging Referral ID Status Reason Start Date Expiration Date Visits Requested Visits Authorized [id number] Authorized Auto-Generat ed Referral 09/21/2022 10/21/2023 1 1 [facility] for referral (narrative)* Diagnostic Procedure Only (Routine) - Authorized Specialty Diagnoses / Procedures Referred By Contac t Referred To Contact US IMAGING Diagnoses Thyromegaly Procedures US THYROID/PARATHYROID US SOFT TISSUE HEAD & NECK REAL TIME IMGE Debra Doshi PA-C [address] [place] [address] Us Imaging Referral ID Status Reason Start Date Expiration Date Visits Requested Visits Authorized [id number] Authorized Auto-Generat ed Referral 11/18/2022 12/18/2023 1 1 [facility] for referral (narrative)* Diagnostic Procedure Only (Routine) - Closed Specialty Diagnoses / Procedures [facility] To [facility] Diagnoses Thyromegaly Procedures US THYROID/PARATHYROID US SOFT TISSUE HEAD & NECK REAL TIME IMGE Debra Doshi PA-C [address] [place] [address] [place] [address] Referral ID Status Reason Start Date Expiration Date V isits Requested Visits Authorized [id number] Closed Auto-Generate d Referral 11/18/2022 12/18/2023 1 1 [facility] for referral (narrative)* Diagnostic Procedure Only (Routine) - Authorized Specialty Diagnoses / Procedures [facility] To Contact US IMAGING Diagnoses Thyroid nodule Procedures US THYROID/PARATHYROID US SOFT TISSUE HEAD & NECK REAL TIME IMGE Donita Thompson MD [address] [place] [address] [place] [address] Referral ID Status Reason Start Date Expiration Date Visits Requested Visits Authorized [id number] Authorized Auto-Generat ed Referral 08/15/2023 09/13/2024 1 1 [facility] Diagnostic Procedure Only (Routine) - Closed Specialty Diagnoses / Procedures Referred By Contac t Referred To Contact XR IMAGING Diagnoses Right flank pain RUQ pain Epigastric pain Acute constipation Procedures XR ABDOMEN 1V SUPINE RADIOLOGIC EXAM ABDOMEN 1 VIEW Caroline Miller PA-C [address] [place] [address] [place] [address] Referral ID Status Reason Start Date Expiration Date V isits Requested Visits Authorized [id number] Closed Auto-Generate d Referral 09/21/2022 10/21/2023 1 1 [facility] for referral (narrative)* Diagnostic Procedure Only (Routine) - Authorized Specialty Diagnoses / Procedures Referred By Contac t Referred To Contact US IMAGING Diagnoses Thyroid nodule Procedures US THYROID/PARATHYROID US SOFT TISSUE HEAD & NECK REAL TIME IMGE Donita Thompson MD [address] [place] [address] [place] [address] Referral ID Status Reason Start Date Expiration Date Visits Requested Visits Authorized [id number] Authorized Auto-Generat ed Referral 12/18/2024 03/15/2025 1 1 [facility] for referral (narrative)No reason for referral information availableMount [facility] Work Phone: Reason for visit Narrative* Diagnostic Procedure Only (Routine) - Closed Specialty Diagnoses / Procedures Referred By Contac t Referred To Contact XR IMAGING Diagnoses Right flank pain RUQ pain Epigastric pain Acute constipation Procedures XR ABDOMEN 1V SUPINE RADIOLOGIC EXAM ABDOMEN 1 VIEW Caroline Miller PA-C [address] [place] [address] [place] [address] Referral ID Status Reason Start Date Expiration Date V isits Requested Visits Authorized [id number] Closed Auto-Generate d Referral 09/21/2022 10/21/2023 1 1 [facility] Purpose Family History Relationship Condition Age at Onset Recorded Date/T kalen grandmother Malignant neoplasm Unknown Relationship Condition Age at Onset Recorded Date/T kalen grandmother Malignant neoplasm Unknown Anxiety Unknown Osteoporosis Unknown Disorder of thyroid Unknown father Hemorrhagic disorder Unknown Disorder of liver Unknown mother Complication of anesthesia Unknown Diabetes mellitus Unknown Hypertension Unknown Advance Directives Documents on File Type Date Recorded 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 Reason for Visit Multiple thyroid nod ules Collin's thyroiditis Status post bariatric surgery Collin's thyroiditis Status post bariatric surgery Encounter for routine gynecological examination Chief Complaint Admit Date Nontoxic single thyroid nodule May 102024 2:54pm RASH ON L SIDE September 21, 2024 6:10a m Reason for Referral Specialty Diagnoses / Procedures Referred By Fabi jenkins 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 Procedures CONSULT TO ENDOCRINOLOGY OFFICE/OUTPATIENT [facility] 60 MINUTES Ping Prince, 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 DATE CREATED AUTHOR AUTHOR'S ORGANIZ ATION 11/05/2024 [facility] Source Comments (unrecognize d section and content) In the event this informatio n is protected by the Federal Confidentiality of Alcohol and Drug Abuse Patient Records regulations: The Federal rules restrict any use of the information to criminally investigate or prosecute any alcohol or drug abuse patient.[facility] HospitalIn the event this information is protected by the Federal Confidentiality of Alcohol and Drug Abuse Patient Records regulations: The Federal rules restrict any use of the information to criminally investigate or prosecute any alcohol or drug abuse patient.[facility] HospitalIn the event this information is protected by the Federal Confidentiality of Alcohol and Drug Abuse Patient Records regulations: The Federal rules restrict any use of the information to criminally investigate or prosecute any alcohol or drug abuse patient.[facility] HospitalIn the event this information is protected by the Federal Confidentiality of Alcohol and Drug Abuse Patient Records regulations: The Federal rules restrict any use of the information to criminally investigate or prosecute any alcohol or drug abuse patient.[facility] HospitalIn the event this information is protected by the Federal Confidentiality of Alcohol and Drug Abuse Patient Records regulations: The Federal rules restrict any use of the information to criminally investigate or prosecute any alcohol or drug abuse patient.[facility] HospitalIn the event this information is protected by the Federal Confidentiality of Alcohol and Drug Abuse Patient Records regulations: The Federal rules restrict any use of the information to criminally investigate or prosecute any alcohol or drug abuse patient.[facility] HospitalIn the event this information is protected by the Federal Confidentiality of Alcohol and Drug Abuse Patient Records regulations: The Federal rules restrict any use of the information to criminally investigate or prosecute any alcohol or drug abuse patient.[facility] HospitalIn the event this information is protected by the Federal Confidentiality of Alcohol and Drug Abuse Patient Records regulations: The Federal rules restrict any use of the information to criminally investigate or prosecute any alcohol or drug abuse patient.[facility] HospitalIn the event this information is protected by the Federal Confidentiality of Alcohol and Drug Abuse Patient Records regulations: The Federal rules restrict any use of the information to criminally investigate or prosecute any alcohol or drug abuse patient.[facility] HospitalIn the event this information is protected by the Federal Confidentiality of Alcohol and Drug Abuse Patient Records regulations: The Federal rules restrict any use of the information to criminally investigate or prosecute any alcohol or drug abuse patient.[facility] HospitalIn the event this information is protected by the Federal Confidentiality of Alcohol and Drug Abuse Patient Records regulations: The Federal rules restrict any use of the information to criminally investigate or prosecute any alcohol or drug abuse patient.[facility] HospitalIn the event this information is protected by the Federal Confidentiality of Alcohol and Drug Abuse Patient Records regulations: The Federal rules restrict any use of the information to criminally investigate or prosecute any alcohol or drug abuse patient.[facility] HospitalIn the event this information is protected by the Federal Confidentiality of Alcohol and Drug Abuse Patient Records regulations: The Federal rules restrict any use of the information to criminally investigate or prosecute any alcohol or drug abuse patient.[facility] HospitalIn the event this information is protected by the Federal Confidentiality of Alcohol and Drug Abuse Patient Records regulations: The Federal rules restrict any use of the information to criminally investigate or prosecute any alcohol or drug abuse patient.[facility] HospitalIn the event this information is protected by the Federal Confidentiality of Alcohol and Drug Abuse Patient Records regulations: The Federal rules restrict any use of the information to criminally investigate or prosecute any alcohol or drug abuse patient.[facility] HospitalIn the event this information is protected by the Federal Confidentiality of Alcohol and Drug Abuse Patient Records regulations: The Federal rules restrict any use of the information to criminally investigate or prosecute any alcohol or drug abuse patient.[facility] HospitalIn the event this information is protected by the Federal Confidentiality of Alcohol and Drug Abuse Patient Records regulations: The Federal rules restrict any use of the information to criminally investigate or prosecute any alcohol or drug abuse patient.[facility] HospitalIn the event this information is protected by the Federal Confidentiality of Alcohol and Drug Abuse Patient Records regulations: The Federal rules restrict any use of the information to criminally investigate or prosecute any alcohol or drug abuse patient.[facility] HospitalIn the event this information is protected by the Federal Confidentiality of Alcohol and Drug Abuse Patient Records regulations: The Federal rules restrict any use of the information to criminally investigate or prosecute any alcohol or drug abuse patient.[facility] HospitalIn the event this information is protected by the Federal Confidentiality of Alcohol and Drug Abuse Patient Records regulations: The Federal rules restrict any use of the information to criminally investigate or prosecute any alcohol or drug abuse patient.[facility] HospitalIn the event this information is protected by the Federal Confidentiality of Alcohol and Drug Abuse Patient Records regulations: The Federal rules restrict any use of the information to criminally investigate or prosecute any alcohol or drug abuse patient.[facility] HospitalIn the event this information is protected by the Federal Confidentiality of Alcohol and Drug Abuse Patient Records regulations: The Federal rules restrict any use of the information to criminally investigate or prosecute any alcohol or drug abuse patient.[facility] HospitalIn the event this information is protected by the Federal Confidentiality of Alcohol and Drug Abuse Patient Records regulations: The Federal rules restrict any use of the information to criminally investigate or prosecute any alcohol or drug abuse patient.[facility] HospitalIn the event this information is protected by the Federal Confidentiality of Alcohol and Drug Abuse Patient Records regulations: The Federal rules restrict any use of the information to criminally investigate or prosecute any alcohol or drug abuse patient.[facility] HospitalIn the event this information is protected by the Federal Confidentiality of Alcohol and Drug Abuse Patient Records regulations: The Federal rules restrict any use of the information to criminally investigate or prosecute any alcohol or drug abuse patient.[facility] HospitalIn the event this information is protected by the Federal Confidentiality of Alcohol and Drug Abuse Patient Records regulations: The Federal rules restrict any use of the information to criminally investigate or prosecute any alcohol or drug abuse patient.[facility] HospitalIn the event this information is protected by the Federal Confidentiality of Alcohol and Drug Abuse Patient Records regulations: The Federal rules restrict any use of the information to criminally investigate or prosecute any alcohol or drug abuse patient.[facility] HospitalIn the event this information is protected by the Federal Confidentiality of Alcohol and Drug Abuse Patient Records regulations: The Federal rules restrict any use of the information to criminally investigate or prosecute any alcohol or drug abuse patient.[facility] HospitalIn the event this information is protected by the Federal Confidentiality of Alcohol and Drug Abuse Patient Records regulations: The Federal rules restrict any use of the information to criminally investigate or prosecute any alcohol or drug abuse patient.[facility] HospitalIn the event this information is protected by the Federal Confidentiality of Alcohol and Drug Abuse Patient Records regulations: The Federal rules restrict any use of the information to criminally investigate or prosecute any alcohol or drug abuse patient.[facility] HospitalIn the event this information is protected by the Federal Confidentiality of Alcohol and Drug Abuse Patient Records regulations: The Federal rules restrict any use of the information to criminally investigate or prosecute any alcohol or drug abuse patient.[facility] HospitalIn the event this information is protected by the Federal Confidentiality of Alcohol and Drug Abuse Patient Records regulations: The Federal rules restrict any use of the information to criminally investigate or prosecute any alcohol or drug abuse patient.[facility] HospitalIn the event this information is protected by the Federal Confidentiality of Alcohol and Drug Abuse Patient Records regulations: The Federal rules restrict any use of the information to criminally investigate or prosecute any alcohol or drug abuse patient.[facility] HospitalIn the event this information is protected by the Federal Confidentiality of Alcohol and Drug Abuse Patient Records regulations: The Federal rules restrict any use of the information to criminally investigate or prosecute any alcohol or drug abuse patient.[facility] HospitalIn the event this information is protected by the Federal Confidentiality of Alcohol and Drug Abuse Patient Records regulations: The Federal rules restrict any use of the information to criminally investigate or prosecute any alcohol or drug abuse patient.[facility] HospitalIn the event this information is protected by the Federal Confidentiality of Alcohol and Drug Abuse Patient Records regulations: The Federal rules restrict any use of the information to criminally investigate or prosecute any alcohol or drug abuse patient.[facility] HospitalIn the event this information is protected by the Federal Confidentiality of Alcohol and Drug Abuse Patient Records regulations: The Federal rules restrict any use of the information to criminally investigate or prosecute any alcohol or drug abuse patient.[facility] HospitalIn the event this information is protected by the Federal Confidentiality of Alcohol and Drug Abuse Patient Records regulations: The Federal rules restrict any use of the information to criminally investigate or prosecute any alcohol or drug abuse patient.[facility] HospitalIn the event this information is protected by the Federal Confidentiality of Alcohol and Drug Abuse Patient Records regulations: The Federal rules restrict any use of the information to criminally investigate or prosecute any alcohol or drug abuse patient.[facility] HospitalIn the event this information is protected by the Federal Confidentiality of Alcohol and Drug Abuse Patient Records regulations: The Federal rules restrict any use of the information to criminally investigate or prosecute any alcohol or drug abuse patient.[facility] HospitalIn the event this information is protected by the Federal Confidentiality of Alcohol and Drug Abuse Patient Records regulations: The Federal rules restrict any use of the information to criminally investigate or prosecute any alcohol or drug abuse patient.[facility] HospitalIn the event this information is protected by the Federal Confidentiality of Alcohol and Drug Abuse Patient Records regulations: The Federal rules restrict any use of the information to criminally investigate or prosecute any alcohol or drug abuse patient.[facility] HospitalIn the event this information is protected by the Federal Confidentiality of Alcohol and Drug Abuse Patient Records regulations: The Federal rules restrict any use of the information to criminally investigate or prosecute any alcohol or drug abuse patient.[facility] HospitalIn the event this information is protected by the Federal Confidentiality of Alcohol and Drug Abuse Patient Records regulations: The Federal rules restrict any use of the information to criminally investigate or prosecute any alcohol or drug abuse patient.[facility] Reason for Visit (unrecogniz ed section and content) Reason Onset Date Comments Reassessment 08/11/2021 Patient Education 08/11/2021 Reason Comments Post Op Reason Onset Date [...] R ear inf ection; was seen at [facility] on 04/19 and started on antibiotic (Augmentin 875mg); fever last evening of 103.5 Reason Comments Results Reason Comments ER F/U [facility] ER FU 09/20/22 Reason Comments 6 Month Exam Reason Comments Returning Patient's Call Reason Comments Radiology US Specialty Diagnoses / Procedures Referred By Fabi t Referred To Contact US IMAGING Diagnoses Thyromegaly Procedures US THYROID/PARATHYROID US SOFT TISSUE HEAD & NECK REAL TIME IMGE DOCDebra Myrick PA-C [address] [place] [address] Us Imaging [id number] Referral ID Status Reason Start Date Expiration Date V isits Requested Visits Authorized [id number] Closed Auto-Generate d Referral 11/18/2022 12/18/2023 1 1 Reason Comments Patient Education Reassessment Reason Comments Follow Up Reason Comments Thyroid Problem Collin's Specialty Diagnoses / Procedures Referred By Contac t 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 Procedures CONSULT TO ENDOCRINOLOGY OFFICE/OUTPATIENT [facility] 60 MINUTES Ping Prince, INSULATOR HELPER.CHILD DEVELOPMENT CONSULTANT [address] [place] [id number] Referral ID Status Reason Start Date Expiration Date V isits Requested Visits Authorized [id number] Closed PCP Requested Referral 07/14/2023 10/12/2023 1 1 Reason Comments Reassessment Patient Education Reason Comments Follow Up Reason Comments Physical Reason Comments Radiology US Specialty Diagnoses / Procedures Referred By Contac t Referred To Contact US IMAGING Diagnoses Thyroid nodule Procedures US THYROID/PARATHYROID US SOFT TISSUE HEAD & NECK REAL TIME IMGE Donita Thompson MD [address] [place] [address] Us Imaging [id number] Referral ID Status Reason Start Date Expiration Date V isits Requested Visits Authorized [id number] Closed Auto-Generate d Referral 08/15/2023 09/13/2024 1 1 Reason Comments Thyroid Problem Thyroid Nodule Reason Comments Nasal Congestion drainage, headache, ear pain and cough x 1 month Reason Comments Low Blood Sugar Reason Comments Appointment Called patient and l eft voicemail to notify of scheduled appointment Reason Comments Medical Weight Management Low Blood Sugar Follow Up Care Teams (unrecognized sec tion and content) Home Care Administrator Relationship Specialty Start Date End Date Asif Haque MD [address] [place] [address] PCP - General Family Practice 02/16/12 Home Care Administrator Relationship Specialty Start Date End Date Asif Haque MD [address] [place] [address] PCP - General Family Practice 02/16/12 Home Care Administrator Relationship Specialty Start Date End Date Asif Haque MD [address] [place] [address] PCP - General Family Practice 02/16/12 Home Care Administrator Relationship Specialty Start Date End Date Asif Haque MD [address] [place] [address] PCP - General Family Practice 02/16/12 Home Care Administrator Relationship Specialty Start Date End Date Asif Haque MD [address] [place] [address], [place] [address] PCP - General Family Practice 02/16/12 Home Care Administrator Relationship Specialty Start Date End Date Asif Haque MD [address] [place] [address], [place] [address] PCP - General Family Practice 02/16/12 Home Care Administrator Relationship Specialty Start Date End Date Asif Haque MD [address] [place] [address] PCP - General Family Practice 02/16/12 Home Care Administrator Relationship Specialty Start Date End Date Asif Haque MD [address] [place] [address] PCP - General Family Medicine 02/16/12 Home Care Administrator Relationship Specialty Start Date End Date Asif Haque MD [address] [place] [address] PCP - General Family Medicine 02/16/12 Home Care Administrator Relationship Specialty Start Date End Date Asif Haque MD [address] [place] [address], [place] [address] PCP - General Family Medicine 02/16/12 Home Care Administrator Relationship Specialty Start Date End Date Asif Haque MD [address] [place] [address] PCP - General Family Medicine 02/16/12 Home Care Administrator Relationship Specialty Start Date End Date Asif Haque MD [address] [place] [address] PCP - General Family Medicine 02/16/12 Home Care Administrator Relationship Specialty Start Date End Date Asif Haque MD [address] [place] [address] PCP - General Family Medicine 02/16/12 Team Status: Active Member Role Status Dates Dr. Asif Haque MD Family Provider Active Dr. Asif Haque MD Primary Care Provider Active Team Status: Inactive Member Role Status Dates Dr. Asif Haque MD Primary Care Provider, Referring Provider Active Charles CALLES PA Attending Provider Active Team Status: Inactive Member Role Status Dates Dr. Asif Haque MD Primary Care Provider Active Dr. Ranjit Smalls MD Emergency Provider Active Home Care Administrator Relationship Specialty Start Date End Date Asif Haque MD [address] [place], [place] [address] PCP - General Family Medicine 02/16/12 Home Care Administrator Relationship Specialty Start Date End Date Debra Swain PA-C [address] [place] [address] PCP - General Family Medicine 11/18/22 Home Care Administrator Relationship Specialty Start Date End Date Debra Swain PA-C [address] [place], [place] [address] PCP - General Family Medicine 11/18/22 Home Care Administrator Relationship Specialty Start Date End Date Debra Swain PA-C [address] [place] [address] PCP - General Family Medicine 11/18/22 Home Care Administrator Relationship Specialty Start Date End Date Debra Swain PA-C [address] [place] [address] PCP - General Family Medicine 11/18/22 Team Status: Inactive Member Role Status Dates Dr. Asif Haque MD Primary Care Provider, Referring Provider Active Dr. Julissa Connell MD Attending Provider Active Team Status: Inactive Member Role Status Dates Dr. Asif Haque MD Primary Care Provider, Referring Provider Active Dr. Felice Centeno MD Attending Provider Active Team Status: Inactive Member Role Status Dates Dr. Asif Haque MD Primary Care Provider, Referring Provider Active Dr. Aj Carmichael MD Attending Provider Active Team Status: Inactive Member Role Status Dates Dr. Asif Haque MD Primary Care Provider Active Dr. Aj Carmichael MD Attending Provider, Referring Provi bibi Active Team Status: Inactive Member Role Status Dates Dr. Asif Haque MD Primary Care Provider Active Dr. Felice Centeno MD Attending Provider Active Home Care Administrator Relationship Specialty Start Date End Date Debra Swain PA-C [address] [place] [address] PCP - General Family Medicine 11/18/22 Home Care Administrator Relationship Specialty Start Date End Date Debra Swain PA-C [address] [place] [address] PCP - General Family Medicine 11/18/22 Home Care Administrator Relationship Specialty Start Date End Date Debra Swain PA-C [address] [place] [address] PCP - General Family Medicine 11/18/22 Home Care Administrator Relationship Specialty Start Date End Date Debra Swain PA-C [address] [place] [address] PCP - General Family Medicine 11/18/22 Home Care Administrator Relationship Specialty Start Date End Date Debra Swain PA-C [address] [place] [address] PCP - General Family Medicine 11/18/22 Home Care Administrator Relationship Specialty Start Date End Date Debra Swain PA-C [address] [place] [address] PCP - General Family Medicine 11/18/22 Home Care Administrator Relationship Specialty Start Date End Date Debra Swain PA-C [address] [place] [address] PCP - General Family Medicine 11/18/22 Home Care Administrator Relationship Specialty Start Date End Date Debra Swain PA-C [address] [place] [address] PCP - General Family Medicine 11/18/22 Home Care Administrator Relationship Specialty Start Date End Date Debra Swain PA-C [address] [place] [address] PCP - General Family Medicine 11/18/22 Home Care Administrator Relationship Specialty Start Date End Date Asif Haque MD [address] [place] [address] PCP - General Family Medicine 02/16/12 11/17/22 Home Care Administrator Relationship Specialty Start Date End Date Asif Haque MD [address] [place] [address] PCP - General Family Medicine 02/14/24 Home Care Administrator Relationship Specialty Start Date End Date Asif Haque MD [address] [place] [address] PCP - General Family Medicine 02/14/24 Home Care Administrator Relationship Specialty Start Date End Date Asif Haque MD [address] [place], [place] [address] PCP - General Family Medicine 02/14/24 Home Care Administrator Relationship Specialty Start Date End Date Asif Haque MD [address] [place], [place] [address] PCP - General Family Medicine 02/14/24 Home Care Administrator Relationship Specialty Start Date End Date Asif Haque MD [address] [place], [place] [address] PCP - General Family Medicine 02/14/24 Nettie Canales APRN.CHILD DEVELOPMENT CONSULTANT [address] [place] [address] [employer] Family Medicine 04/16/24 Kiera Carson INSULATOR HELPER.CHILD DEVELOPMENT CONSULTANT [address] [place] [address] [employer] Family Medicine 04/16/24 Home Care Administrator Relationship Specialty Start Date End Date Asif Haque MD [address] [place], [place] [address] PCP - General Family Medicine 02/14/24 Nettie Canales INSULATOR HELPER.CHILD DEVELOPMENT CONSULTANT [address] [place] [address] [employer] Family Medicine 04/16/24 Kiera Carson INSULATOR HELPER.CHILD DEVELOPMENT CONSULTANT [address] [place], [place] [address] [phone] [employer] Family Medicine 04/16/24 Home Care Administrator Relationship Specialty Start Date End Date Asif Haque MD [address] [facility] [place] [address] PCP - General Family Medicine 02/14/24 Nettie Canales APRN.CHILD DEVELOPMENT CONSULTANT [address] [place] [address] [facility]24 Kiera Carson APRN.CHILD DEVELOPMENT CONSULTANT [address] [facility] [place] [address] [facility] 04/16/24 Home Care Administrator Relationship Specialty Start Date End Date Asif Haque MD [address] [facility] [place] [address] PCP - General Family Medicine 02/14/24 Nettie Canales APRN.CHILD DEVELOPMENT CONSULTANT [address] [place] [address] [facility] [facility] 04/16/24 Kiera Carson APRN.CHILD DEVELOPMENT CONSULTANT [address] [facility] [place] [address] [facility] 04/16/24 Home Care Administrator Relationship Specialty Start Date End Date Asif Haque MD [address] [facility] [place] [address] PCP - General Family Medicine 02/14/24 Nettie Canales APRN.CHILD DEVELOPMENT CONSULTANT [address] [facility] [place] [address] [employer] [facility] 04/16/24 Kiera Carson APRN.CHILD DEVELOPMENT CONSULTANT [address] [place] [address] [facility] 04/16/24 Home Care Administrator Relationship Specialty Start Date End Date Asif Haque MD [address] [place] [address] PCP - General Family Medicine 02/14/24 Nettie Canales, INSULATOR HELPER.CHILD DEVELOPMENT CONSULTANT [address] [facility] [place] [address] [facility] [facility] 04/16/24 Kiera Carson INSULATOR HELPER.CHILD DEVELOPMENT CONSULTANT [address] [place] [address] [facility] 04/16/24 Home Care Administrator Relationship Specialty Start Date End Date Asif Haque MD [address] [place] [address] PCP - General Family Medicine 02/14/24 Nettie Canales, INSULATOR HELPER.CHILD DEVELOPMENT CONSULTANT [address] [facility] [place] [address] [facility] 04/16/24 Kiera Carson INSULATOR HELPER.CHILD DEVELOPMENT CONSULTANT [address] [place] [address] [facility] 04/16/24 Team Status: Inactive Member Role Status Dates Dr. Asif Haque MD Primary Care Provider Active Start: May 30, 2024 End: May 30, 2024 Dr. Felice Centeno MD Attending Provider Active Start: May 30, 2024 End: May 30, 2024 Dr. Felice Centeno MD Referring Provider Active Start: May 30, 2024 End: May 30, 2024 Team Status: Inactive Member Role Status Dates Dr. Asif Haque MD Primary Care Provider Active Start: September 21, 2024 End: September 21, 2024 Dr. Asif Haque MD Referring Provider Active Start: September 21, 2024 End: September 21, 2024 Charles CALLES, PA Attending Provider Active Sta rt: September 21, 2024 End: September 21, 2024 Home Care Administrator Relationship Specialty Start Date End Date Asif Haque MD [address] [place], [place] [address] PCP - General Family Medicine 02/14/24 Nettie Canales APRN.CHILD DEVELOPMENT CONSULTANT [address] [place], [place] [address] [facility] 04/16/24 Kiera Carson INSULATOR HELPER.CHILD DEVELOPMENT CONSULTANT [address] [place] [address] [facility] 04/16/24 Home Care Administrator Relationship Specialty Start Date End Date Asif Haque MD [address] [place], [place] [address] PCP - General Family Medicine 02/14/24 Nettie Canales INSULATOR HELPER.CHILD DEVELOPMENT CONSULTANT [address] [place], [place] [address] [facility] 04/16/24 Kiera Carson INSULATOR HELPER.CHILD DEVELOPMENT CONSULTANT [address] [place], [place] [address] [facility] 04/16/24 Goals (unrecognized section and content) Goals may be documented in a n alternate sectionGoals may be documented in an alternate sectionGoals may be documented in an alternate section FOR RECORDS PERTAINING TO PATIENTS WHO ARE [...] BE BASED ON THE PRIMARY CLINICAL RECORDS. [facility]. provides no warranty or guarantee of the accuracy or completeness of information in this document.
--- OUTSIDE RECORDS SUMMARY | 2024-11-07 03:55 | XMS RPT_ITS | CCD ---
Author Organization [facility] Care Team Providers Care Atomizer Assembler Name Role Phone LILIAM Dee RN, Ping Coles Unavailable Unavailjose alberto Dee RN RN, Ping Coles Unavailable Unavailjose alberto Dee RN RN, Ping Coles Unavailable Unavailabl e Becki FOSTER, Julissa Lin Unavailable [phone] VALDEZ WOODALL Unavailable Unavailable SHABNAM, ASIF Unavailable Unavailable Zografakis, Masood Unavailable Unavailable Bittenbender, Peter Unavailable Unavailable [place], Asif Unavailable Unavailable Zografakis, Masood Unavailable Unavailable [...] Wells, Unavailable Unavailable Bittenbender, Peter Unavailable Unavailable [place], Asif Unavailable Unavailable Wells, Unavailable Unavailable Bittenbender, Peter Unavailable Unavailable Shabnam, Asif Unavailable Unavailable Zografakis, Masood Unavailable Unavailable Bittenbender, Peter Unavailable Unavailable Shabnam, Asif Unavailable Unavailable RumgagelGeorgeSweetie Unavailable Unavailable Bittenbender, Peter Unavailable Unavailable [place], Asif Unavailable Unavailable Bittenbender, Peter Unavailable Unavailable [...] Attending Provider Dr. Julissa Connell Attending Provider [phone] Debra Swain PA-C Primary Care Provider Asif Haque MD Primary Care Provider Asif Haque MD Primary Care Provider Jamieagen AVIATION SAFETY TECHNICIAN.CROZER OPERATOR, Nettie Unavailable Mahsa AVIATION SAFETY TECHNICIAN.CROZER OPERATOR, Kiera A Unavailable Dr. Asif Haque MD Primary Care Provider Dr. Felice Centeno MD Attending Provider Taryn FOSTER, Dr. Viveros Referring Provider Dr. Asif Haque MD Referring Provider Charles Rodriguez Attending Provider [phone] [place], Asif Primary Care Unavailable Felice Centeno Attending Unavailable Felice Centeno Referring Unavailable Julissa Connell Attending Unavailable [place], Asif Primary Care Unavailable MarcJulissa hanks Referring Unavailable Julissa Connell Attending Unavailable [place], Asif Primary Care Unavailable Shabnam, Asif Referring Unavailable Shabnam, Asif Primary Care Unavailable Herminio Cardozo Attending Unavailable Shabnam, Asif Referring Unavailable Shabnam, Asif Primary Care Unavailable Julissa Connell Attending Unavailable [place], Asif Referring Unavailable Herminio Cardozo Attending Unavailable Shabnam, Asif Primary Care Unavailable [place], Asif Referring Unavailable Charles Rodriguez Attending Unavailable [place], Asif Referring Unavailable Shabnam, Asif Primary Care [...] HYDROcodone Drug Allergy 02-25-20 11 Hives, Itching [facility] Acetaminophen / oxyCODONE (1 source) Acetaminophen / oxyCODONE Drug Allergy 12-23-19 13 Itching [facility] Doxycycline (1 source) Doxycycline Drug Allergy 01-15-20 [facility] Latex (1 source) Latex Substance Allergy 05-19-19 10 Rash [facility] Metoprolol (1 source) Metoprolol Drug Allergy 07-28-19 12 Hives, Shortness of Breath [facility] (7 sources) acetaminophen / HYDROcodone Drug Allergy 12-16-19 [facility] (7 sources) acetaminophen / oxyCODONE Drug Allergy 12-16-19 17 [facility] (7 sources) metoprolol Drug Allergy 12-16-19 17 [facility] (20 sources) Acetaminophen / HYDROcodone; Translations: [HYDROCODONE-ACET AMINOPHEN] Drug Allergy 02-25-20 11 Hives, Itching Repository (20 sources) Acetaminophen / oxyCODONE; Translations: [OXYCODONE-ACETAM INOPHEN] Drug Allergy 12-23-19 13 Other: See Comments, Itching Repository (20 sources) Latex; Translations: [LATEX] Propensity to adverse reactions to drug (disorder) 05-19-19 10 Rash Repository (20 sources) Metoprolol; Translations: [METOPROLOL] Drug Allergy 07-28-19 12 Hives, Shortness of Breath Repository Comment on above: heart races (20 sources) Doxycycline; Translations: [DOXYCYCLINE] Drug Allergy 01-15-[address] [facility] Work Phone: (20 sources) Tomatoes; Translations: [TOMATOES] Propensity to adverse reactions 09-19-19 10 Swelling [facility] (3 sources) Dicloxacillin Drug Allergy 09-21-19 23 [facility] (4 sources) HYDROcodone; Translations: [hydrocodone bitartrate] Drug Allergy 09-21-19 23 [facility] (4 sources) oxyCODONE; Translations: [oxycodone HCl] Drug Allergy 09-21-19 [facility] Comment on above: heart races (1 source) Dicloxacillin Drug Allergy 09-22-19 [facility] Repository Medications Current Medications Medication Drug Class(es) [...] 2 11/21/2023 Active Blood-Glucose Meter,Continuous (DEXCOM G7 FIRE POT OPERATOR) misc (7 sources) Start: 07-04-2024 End: 10-02-2024 Blood-Glucose Meter,Continuous (DEXCOM G7 FIRE POT OPERATOR) misc 1 Each as directed. 1 Each [...] Active Start: 05-11-2023 take 1 capsule by [facility] once daily Cholecalciferol (Vitamin D3) 50 mcg (2,000 unit) capsule Active 50 ug PO DAILY May 13, 2023 1:00am Comment on above: Take 1 capsule by [facility] once daily. Creatinine, Bulk, 100 % powd [...] 3 mg/actuation nasal spray (BAQSIMI) Use 1 [facility] in the nose as needed for low [...] Comment on above: Take 1 capsule by [facility] twice daily for 5 days. phentermine hydrochloride [...] g 1 11/21/2023 12/21/2023 Active vitamin a 83918 unt oral capsule (20 sources) Vitamin A [...] Comment on above: Take 1 tablet by [facility] once daily. Completed/Discontinued Medications Medication Drug Class(es) [...] above: Take 2 tablets by mo [facility] every 6 hours as needed for pain. [...] tablet by mouth three times daily AMOXICILLIN [id number] Laura Martino AIRPORT PLANNER amoxicillin 875 mg / clavulanate 125 mg [...] Comment on above: Take 1 tablet by [facility] once daily. L.Acidoph, Paracasei,B. Lactis (2 sources) [...] above: Take 1 capsule by mo [facility] once daily. Multivitamin preparation (2 sources) Start: 09-21-19 End: 05-10-19 take 1 tablet by mouth once daily Multivitamin Discontinued 1 TABLET PO DAILY September 19, 2022 11:00pm May 10, 2023 1:14pm Start: 09-20-2022 take 1 tablet by [facility] once daily Multivitamin Active 1 TABLET PO [...] Comment on above: Take 1 capsule by [facility] once daily. ondansetron 4 mg disintegrating oral [...] 017 VITAMINS 28-0.8 MG TABS VIT-FE FUMARATE-FA [id number] Julissa Connell MD promethazine hydrochloride 12.5 mg [...] 01, 2016 12:00am December 09, 2017 11:25am [place] (3 sources) Start: 09-18-2019 End: 10-05-2019 [place] Discontinued 3 NMA PO THREE TIMES A DAY September 18, 2019 12:00am October 05, 2019 3:32pm Start: 09-18-2019 End: 10-05-2019 take 3 capsules by mouth three times daily [place] Discontinued 3 CAP PO THREE TIMES A DAY September 17, 2019 11:00pm October 05, 2019 2:32pm Start: 09-18-2019 End: 10-05-2019 take 3 capsules by mouth three times daily [place] Discontinued 3 CAP PO THREE TIMES [...] twice daily as needed for pain. Vitamin E71-Otdid Acid (2 sources) Start: 02-17-2021 End: 03-09-2021 Vitamin C53-Pjipb Acid Discontinued 1 TABLET SL DAILY February 16, 2021 11:00pm March 09, 2021 9:31am Start: 02-17-2021 End: 03-09-2021 Vitamin F70-Jmwcs Acid Disco ntinued 1 TABLET SL DAILY February 17, 2021 12:00am March 09, 2021 10:31am Vitamin U30-Lbtol Acid 1,000-400 mcg Tablet, Sublingual (1 source) Start: 02-17-2021 End: 03-09-2021 Vitamin B13-Lxxbq Acid 1,000 -400 mcg Tablet, Sublingual Discontinued [...] on above: 1 tm glucola and isabel [facility] nsts after 32 weeks Other nutritional; endocrine; [...] Reporton 0 09-21-2024 Urgent Care Visit Report [facility] [address], [address] [place] [address] OFFICE VISIT Date of Service: 09/21/24 MR#: [id number] Acct: [id number] Name: INDRAMARYMEDINA SILVA Rep #: [id number] : 1990 Provider: STEVAN Siu Age/Sex: 34/F Location: [facility] Status: Signed Intake Vital Signs 05/21/24 09:32 [...] she could be going through a thyroiditis. [facility] Medical History Acute bronchitis, unspecified Collin's thyroiditis [...] CNOV Office Visit (ENDCMN ) MARY BURRELL ([id number]) 1990 F Date Time Provider Department 08/09/24 10:00 AM [facility] your visit today, we recorded the following information about you: Pulse Blood pressure Weight 79/minute 127/79 101.6 kg Manuela Isbell MD 08/09/2024 10:44 AM Addendum Thank you for choosing the [facility] Department of Endocrinology, Diabetes and Metabolism. Did you know that you need to call 48 hours in advance of your scheduled visit, if you are unable to make your appointment? The [facility]inology [facility] Metabolism [place] thanks you for your commitment, because patients not showing to their appointment results in a lost opportunity for patients to receive [facility] care at the [facility]. To Cancel an appointment, please choose one of the following: - Call the Appointment Call Center at [phone] - From [facility], Go to Appointments - Cancel Appts If cancelling, consider your need to reschedule to prevent further delays in your care. To Schedule an appointment, please choose one of the following: - Call the Appointment Call Center at [phone] - From [facility], Go to Appointments - Request an Appt [...] Index Carbohydrates (AVOID) Refined breakfast cereals (e.g., [place] Flakes, Rice Krispies, Cream of Rice, instant oatmeal) Regular pasta Most starchy vegetables (e.g., white potatoes, corn, winter (orange) squash) White rice, rice cakes Popcorn, pretzels, chips Some fruits (e.g., ripe bananas, pineapple, yael, watermelon, grapes) All fruit juices and sweetened drinks (e.g., sodas, sweetened iced tea) Bread, rolls, bagels, Colombian muffins, and crackers made with refined flour [...] lb) 413 lbs Lowest weight 192 lbs [place] weight: 72.4 kg (159 lb 11 oz) Excess weight: 84.1 kg (185 lb 5 oz) % of excess body weight lost: 156.5 kg (345 lb) (186.17% of excess weight loss) Interval history: Fasting labs (after 15 hrs of fasting) with no hypoglycemia. Started on Dexcom at last visit. Continues to have daily low blood sugar. Review (more content not included)... Normal [facility] HEMOGLOBIN A1C (POC)on 08-09 HbA1c (Bld) [Mass fraction] 5.1 % 4.3 - 5.6 % [facility] Comment on above: Location:Arabella martinez, [address] [place] [address], [facility] Point of care (POC) Hemoglobin A1c (HGBA1C) [...] specific diabetes management situations: The POC device rug renovator provides a normal range of 4.2% to 6.5% for the HGBA1C POC test. However, the [place] Diabetes Association guidelines indicate that patients with [...] anemia) that alter red blood cell lifespan. [facility] B-HYDROXYBUTYRATEon 07-14-19 25 Beta hydroxybutyrate [Moles/Vol] 0.35 mmol/L High <0.28 [facility] Comment on above: Order Comment: Telly sams Type: BLOOD SPECIMENOrdering Facility: [facility] Address: [address] [place] [address] Performed By: #### B HB ####[facility]ATORYCLIA [id number] [place] [address] [place] C peptide SerPl-mCncon 07-13 C peptide [Mass/Vol] 2.7 ng/mL Normal 1.1-4.4 [facility] Comment on above: Order Comment: Telly sams Type: BLOOD SPECIMENOrdering Facility: [facility] Address: [address] [place] [address] Performed By: #### 1 986-9, 54459-4 ####[facility] LABCLIA [id number] [place] [address] [place] Glucose p fast SerPl-mCncon 07-13-2024 Glucose post fast [Mass/Vol] 81 mg/dL Normal 74-99 [facility] Comment on above: Order Comment: Telly sams Type: BLOOD SPECIMENOrdering Facility: [facility] Address: [address] [place] [address] Result Comment: Amer [place] Diabetes Association guidelines state that a diabetes mellitus diagnosis is preliminarily made when the fasting plasma glucose meets or exceeds 126 mg/dL. In the absence of unequivocal hyperglycemia, results should be confirmed with repeat testing. Patients are at increased risk for diabetes mellitus (prediabetes) when the fasting glucose is 100 to 125 mg/dL. Performed By: #### 1 558-6 ####[facility]ATORYCLIA [id number] [place] [address] [place] Insulin SerPl-aCncon 025 Insulin Qn 6.6 uU/mL Normal 2.6-24.9 [facility] Comment on above: Order Comment: Speci men Type: BLOOD SPECIMENOrdering Facility: [facility] Address: [address] [place] [address] Performed By: #### 1 986-9, 46122-0 ####[facility] LABCLIA [id number] [address] [place] CNPNancy 07-09-2024 CNPN Telephone (ENDOMN) MARY BURRELL ([id number]) 1990 F Date Time Provider Department 07/09/24 [...] of 07/09/2024 - Blood-Glucose Meter,Continuous (DEXCOM G7 FIRE POT OPERATOR) misc 1 Each as directed. - Blood-Glucose Sensor (DEXCOM G7 SENSOR) allison 1 Each every 10 days. - glucagon 3 mg/actuation nasal spray (BAQSIMI) Use 1 [facility] in the nose as needed for low [...] Status:Closed by KIMBERLEY LEDESMA on 07/09/24 Normal [facility] B-HYDROXYBUTYRATEon 07-06-19 25 Beta hydroxybutyrate [Moles/Vol] 0.44 mmol/L High <0.28 [facility] Comment on above: Order Comment: Speci men Type: BLOOD SPECIMENOrdering Facility: [facility] Address: [address] [place] [address] Performed By: #### B HB ####[facility]ORYCLIA [id number] [place] [address] [place] C peptide SerPl-mCncon 07-06 C peptide [Mass/Vol] 2.0 ng/mL Normal 1.1-4.4 [facility] Comment on above: Order Comment: Speci men Type: BLOOD SPECIMENOrdering Facility: [facility] Address: [address] [place] [address] Performed By: #### 1 986-9, 10249-1 ####[facility] LABCLIA [id number] [place] [address] [place] Insulin SerPl-aCncon 025 Insulin Qn 6.1 uU/mL Normal 2.6-24.9 [facility] Comment on above: Order Comment: Speci men Type: BLOOD SPECIMENOrdering Facility: [facility] Address: [address] [place] [address] Performed By: #### 1 986-9, 36483-7 ####[facility] LABCLIA [id number] [place] [address] [place] Thyroidon 05-30-2024 Thyroid [facility] Services [address] [place], [place] [address] Thyroid MR#: [id number] Acct: [id number] Name: MARY BURRELL Rep #: [id number] : 1990 F 34 From: Irving rosen MD PCP: Dr. Asif Haque MD Status: [facility] CLI Study: Thyroid Date of Exam: 05/30/24 Exam# [id number] Ordering Dr: Felice Centeno MD [id number] STUDY: THYROID ULTRASOUND REASON FOR EXAM: Female, [...] Felice Centeno MD; Dr. Asif Haque MD City Collector: Signed Normal [facility] Calcium,Totalon 05-21-2024 CA,Total 9.5 mg/dL Normal 8.5-10.1 [facility] Comment on above: Performed By: #### L 509.1000, L501.2200 #### [facility] [address] [place], [place], [id number] Estradiolon 05-21-2024 ESTRADIOL 69.3 pg/mL Normal [facility] Comment on above: Result Comment: NORM AL [...] Performed By: #### L 3100.5125, L3300.1750 #### [facility] [address] [place], [place], [address] Follicle Stimulating Hormone on 05-21-2024 FSH 5.4 mIU/mL Normal [facility] Comment on above: Result Comment: NORMAL REFERENCE RANGES FEMALE FOLLICULAR 2.3 - 12.6 mIU/mL MID-CYCLE PEAK 5.2 - 17.5 mIU/mL LUTEAL 1.7 - 12.9 mIU/mL POST-MENOPAUSAL ON MHT 5.9 - 72.8 mIU/mL NOT ON MHT 12.7 - 132.2 mlU/mL MALE 0.7 - 10.8 mIU/mL Performed By: #### L 3100.5125, L3300.1750 #### [facility] [address] [place], [address] System Support Developer Office Visit Reporton 05-21-2024 System Support Developer Office Visit Report [facility] [address], [address] [place] [address] OFFICE VISIT Date of Service: 05/21/24 MR#: [id number] Acct: [id number] Name: MARY BURRELL Rep #: [id number] : 1990 Provider: Dr. 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 Normal [facility] PTHINon 05-21-2024 PTH 84.1 pg/mL High 18.4-80.1 [facility] Comment on above: Performed By: #### L 509.1000, L501.2200 #### [facility] [address] [place], [place], [address] Urgent Care Visit Reporton 1 06-17-2023 Urgent Care Visit Report [facility] [address], [address] [place], [place] [address] OFFICE VISIT Date of Service: 04/16/24 MR#: [id number] Acct: [id number] Name: MARY BURRELL RICARDO Rep #: [id number] : 1990 Provider: STEVAN Gallegos Age/Sex: 33/F Location: [facility] Status: Signed Intake Vital Signs 03/08/24 15:13 [...] Chief Complaint: left ear pain, sinus congestion Web Portal Developer Required: No Is patient in pain?: No [...] safe at home: Yes additional social history: [facility] HPI Chief Complaint: left ear pain, [...] present GI (more content not included)... Normal [facility] Breast Limited Unilateralon 03-14-2024 Breast Limited Unilateral [facility] Services [address] [place] [address] Breast Limited Unilateral MR#: [id number] Acct: [id number] Name: MARY BURRELL RICARDO Rep #: [id number] : 1990 F 33 From: Walker dove MD PCP: Dr. Asif Haque MD Status: REG CLI Study: Breast Limited Unilateral Date of Exam: Exam# [id number] Ordering Dr: Julissa Connell [id number] STUDY: ULTRASOUND BREAST - RIGHT REASON FOR [...] 12:42 EST Reading Location ID and State: [facility] / [place] , Service support , CC: Dr. Julissa Connell MD; Dr. Asif Haque MD City Collector: Signed Normal [facility] DIAG MAMM W/CAD, [place] DIAG MAMM W/CAD, [facility] Imaging Services [address] [place] [address] DIAG MAMM W/CAD, [facility] MR#: [id number] Acct: [id number] Name: INDRAMARY ANN Rep #: [id number] : 1990 F 33 From: Walker dove MD PCP: Dr. Asif Haque MD Status: [facility] Study: DIAG MAMM W/CAD, BILAT Date of Exam: 03/14/24 Exam# [id number] Ordering Dr: Julissa Connell [id number] MAMMOGRAPHY - BILATERAL DIAGNOSTIC REASON FOR EXAM: [...] 11:31 EST Reading Location ID and State: [facility] / [place] , Service support , CC: Dr. Julissa Connell MD; Dr. Asif Haque MD City Collector: Signed Normal [facility] System Support Developer Office Visit Reporton 03-08-2024 System Support Developer Office Visit Report [facility] [address], [address] [place] [address] OFFICE VISIT Date of Service: 03/08/24 MR#: [id number] Acct: [id number] Name: MARY BURRELL Rep #: [id number] : 1990 Provider: Dr. Julissa enamorado MD Age/Sex: 33/F Location: [facility] Status: Signed Intake Vital Signs 05/13/23 11:40 03/08/24 15:13 Height 5 ft 7 in 5 ft 7 in Weight: 209 lb BMI 32.7 BP 134/83 H Intake Visit Reasons: breast lump Web Portal Developer Required: No Is patient in pain?: Yes [...] lb 03/05/17 Doreen 39 8 lbs Female [facility] 08/01/18 Stu 39 live - full term Female spinal [facility] 07/19/19 [place] 39 live - full term Male epidural [facility] M Delivery Date: 08/01/18 Last [...] Nutritional Appearance: average body habitus Orientation: alert HENAZ Head: normal to inspection and nor (more content not included)... 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 Normal [facility] Urgent Care Visit Reporton 1 Urgent Care Visit Report [facility] [address] [place], [place] [address] OFFICE VISIT Date of Service: 02/21/24 MR#: [id number] Acct: [id number] Name: MARY BURRELL Rep #: [id number] : 1990 Provider: STEVAN Gallegos Age/Sex: 33/F Location: [facility] Status: Signed Intake Vital Signs 05/13/23 11:40 02/21/24 07:53 Height 5 ft 7 in BP 130/74 H Blood Pressure Location Lt brachial Position Sitting Respiration 15 Pulse 76 Pulse Source NIBP Temp 98.1 F Temp Source Oral Pulse Oximetry (%) 98 Oxygen Delivery Method room air Intake Visit Reasons: Upper respiratory infection Chief Complaint: chest congest, cough, grn mucus Web Portal Developer Required: No Is patient in pain?: No [...] safe at home: Yes additional social history: [facility] HPI Chief Complaint: chest congest, cough, [...] close contacts with similar complaints. Non-smoker. No bhco-wrb-qydtoya products taken to assist. No other associated symptoms and no other alleviating/aggravati ng factors. ROS Const Constitutional: No other (as above) Exam Const General: cooperative, healthy appearing and no acute distress Orientation: alert and awake [facility] Head: normal to inspection Ears: hearing grossly [...] no r (more content not included)... 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 Normal [facility] 25([place])D3 [facility] 25-hydroxyvitamin D3 [Mass/Vol] 59.2 ng/mL Normal 31.0-80.0 [facility] Comment on above: Order Comment: Speci men Type: BLOOD SPECIMENOrdering Facility: [facility] Address: [address] [place] [address] Result Comment: Clas sification of 25 [place] Vitamin D status: Deficiency/Insufficiency: < or = 30 ng/ml. Sufficiency/Optimal Levels: 31-80 ng/mL Toxicity: > 100 ng/mL. Test performed by chemiluminescent immunoassay. Performed By: #### 1 989-3 ####[facility] LABCLIA [id number] [place] [address] [place] CBC W Auto Differential pane l (Bld)on 01-20-2024 Basophils (Bld) [#/Vol] 10*3/uL Normal <0.11 [facility] Comment on above: Order Comment: Speci men Type: BLOOD SPECIMENOrdering Facility: [facility] Address: [address] [place] [address] Performed By: #### 5 7021-8 ####[facility] [id number] [place] [address] [place] Basophils/100 WBC (Bld) 0.3 % Normal [facility] Comment on above: Order Comment: Speci men Type: BLOOD SPECIMENOrdering Facility: [facility] Address: [address] [place] [address] Performed By: #### 5 7021-8 ####[facility] [id number] [place] [address] [place] Differential cell count method Nom (Bld) Auto Normal [facility] Comment on above: Order Comment: Speci men Type: BLOOD SPECIMENOrdering Facility: [facility] Address: [address] [place] [address] Performed By: #### 5 7021-8 ####[facility] [id number] [place] [address] [place] Eosinophils (Bld) [#/Vol] 0.10 10*3/uL Normal <0.46 [facility] Comment on above: Order Comment: Speci men Type: BLOOD SPECIMENOrdering Facility: [facility] Address: [address] [place] [address] Performed By: #### 5 7021-8 ####[facility] [id number] [place] [address] [place] Eosinophils/100 WBC (Bld) 1.7 % Normal [facility] Comment on above: Order Comment: Speci men Type: BLOOD SPECIMENOrdering Facility: [facility] Address: [address] [place] [address] Performed By: #### 5 7021-8 ####[facility] [id number] [place] [address] [place] Erythrocyte distribution width (RBC) [Ratio] 13.0 % Normal 11.5-15.0 [facility] Comment on above: Order Comment: Speci men Type: BLOOD SPECIMENOrdering Facility: [facility] Address: [address] [place] [address] Performed By: #### 5 7021-8 ####[facility] MILLWNCLIA [id number] [place] [address] [place] Hematocrit (Bld) [Volume fraction] 39.0 % Normal 36.0-46.0 [facility] Comment on above: Order Comment: Speci men Type: BLOOD SPECIMENOrdering Facility: [facility] Address: [address] [place] [address] Performed By: #### 5 7021-8 ####[facility]ENTERL[facility] [id number] [place] [address] [place] Hemoglobin (Bld) [Mass/Vol] 13.1 g/dL Normal 11.5-15.5 [facility] Comment on above: Order Comment: Speci men Type: BLOOD SPECIMENOrdering Facility: [facility] Address: [address] [place] [address] Performed By: #### 5 7021-8 ####[facility]ENTERLIA [id number] [place] [address] [place] Immature granulocytes (Bld) [#/Vol] 10*3/uL Normal <0.10 [facility] Comment on above: Order Comment: Speci men Type: BLOOD SPECIMENOrdering Facility: [facility] Address: [address] [place] [address] Performed By: #### 5 7021-8 ####[facility]ITALWNCLIA [id number] [place] [address] [place] Immature granulocytes/100 WBC (Bld) 0.2 % Normal [facility] Comment on above: Order Comment: Speci men Type: BLOOD SPECIMENOrdering Facility: [facility] Address: [address] [place] [address] Performed By: #### 5 7021-8 ####[facility]ENTERLIA [id number] [place] [address] [place] Lymphocytes (Bld) [#/Vol] 1.99 10*3/uL Normal 1.00-4.00 [facility] Comment on above: Order Comment: Speci men Type: BLOOD SPECIMENOrdering Facility: [facility] Address: [address] [place] [address] Performed By: #### 5 7021-8 ####[facility]ENTERLIA [id number] [place] [address] [place] Lymphocytes/100 WBC (Bld) 33.0 % Normal [facility] Comment on above: Order Comment: Speci men Type: BLOOD SPECIMENOrdering Facility: [facility] Address: [address] [place] [address] Performed By: #### 5 7021-8 ####[facility] [id number] [place] [address] [place] MCH (RBC) [Entitic mass] 28.9 pg Normal 26.0-34.0 [facility] Comment on above: Order Comment: Speci men Type: BLOOD SPECIMENOrdering Facility: [facility] Address: [address] [place] [address] Performed By: #### 5 7021-8 ####[facility] [id number] [place] [address] [place] MCHC (RBC) [Mass/Vol] 33.6 g/dL Normal 30.5-36.0 [facility] Comment on above: Order Comment: Speci men Type: BLOOD SPECIMENOrdering Facility: [facility] Address: [address] [place] [address] Performed By: #### 5 7021-8 ####[facility]CL[facility] [id number] [place] [address] [place] MCV (RBC) [Entitic vol] 85.9 fL Normal 80.0-100.0 [facility] Comment on above: Order Comment: Speci men Type: BLOOD SPECIMENOrdering Facility: [facility] Address: [address] [place] [address] Performed By: #### 5 7021-8 ####[facility] [id number] [place] [address] [place] Monocytes (Bld) [#/Vol] 0.30 10*3/uL Normal <0.87 [facility] Comment on above: Order Comment: Speci men Type: BLOOD SPECIMENOrdering Facility: [facility] Address: [address] [place] [address] Performed By: #### 5 7021-8 ####[facility] [id number] [place] [address] [place] Monocytes/100 WBC (Bld) 5.0 % Normal [facility] Comment on above: Order Comment: Speci men Type: BLOOD SPECIMENOrdering Facility: [facility] Address: [address] [place] [address] Performed By: #### 5 7021-8 ####[facility] [id number] [place] [address] [place] Neutrophils (Bld) [#/Vol] 3.61 10*3/uL Normal 1.45-7.50 [facility] Comment on above: Order Comment: Speci men Type: BLOOD SPECIMENOrdering Facility: [facility] Address: [address] [place] [address] Performed By: #### 5 7021-8 ####[facility] [id number] [place] [address] [place] Neutrophils/100 WBC (Bld) 59.8 % Normal [facility] Comment on above: Order Comment: Speci men Type: BLOOD SPECIMENOrdering Facility: [facility] Address: [address] [place] [address] Performed By: #### 5 7021-8 ####[facility] [id number] [place] [address] [place] Nucleated RBC (Bld) [#/Vol] 10*3/uL Normal <0.01 [facility] Comment on above: Order Comment: Speci men Type: BLOOD SPECIMENOrdering Facility: [facility] Address: [address] [place] [address] Performed By: #### 5 7021-8 ####[facility]CA [id number] [place] [address] [place] Nucleated RBC/100 WBC (Bld) [Ratio] 0.0 /100 WBC Normal [facility] Comment on above: Order Comment: Speci men Type: BLOOD SPECIMENOrdering Facility: [facility] Address: [address] [place] [address] Performed By: #### 5 7021-8 ####[facility] CENTERLIA [id number] [place] [address] [place] Platelet mean volume (Bld) [Entitic vol] 9.0 fL Normal 9.0-12.7 [facility] Comment on above: Order Comment: Speci men Type: BLOOD SPECIMENOrdering Facility: [facility] Address: [address] [place] [address] Performed By: #### 5 7021-8 ####[facility]ENTERLIA [id number] [place] [address] [place] Platelets (Bld) [#/Vol] 288 10*3/uL Normal 150-400 [facility] Comment on above: Order Comment: Speci men Type: BLOOD SPECIMENOrdering Facility: [facility] Address: [address] [place] [address] Performed By: #### 5 7021-8 ####[facility] [id number] [place] [address] [place] RBC (Bld) [#/Vol] 4.54 10*6/uL Normal 3.90-5.20 [facility] Comment on above: Order Comment: Speci men Type: BLOOD SPECIMENOrdering Facility: [facility] Address: [address] [place] [address] Performed By: #### 5 7021-8 ####[facility] [id number] [place] [address] [place] WBC (Bld) [#/Vol] 6.03 10*3/uL Normal 3.70-11.00 [facility] Comment on above: Order Comment: Speci men Type: BLOOD SPECIMENOrdering Facility: [facility] Address: [address] [place] [address] Performed By: #### 5 7021-8 ####[facility]ENNCLISharyn [id number] [place] [address] [place] [facility] [place] Comprehensive metabolic 2000 panelon 01-20-2024 Albumin [Mass/Vol] 4.4 g/dL Normal 3.9-4.9 [facility] Comment on above: Order Comment: Speci men Type: BLOOD SPECIMENOrdering Facility: [facility] Address: [address] [place] [address] Performed By: #### 2 4323-8 ####[facility] HOSPITALWNCLIA [id number] [place] [address] [place] ALP [Catalytic activity/Vol] 73 U/L Normal 34-123 [facility] Comment on above: Order Comment: Speci men Type: BLOOD SPECIMENOrdering Facility: [facility] Address: [address] [place], [place] [address] Performed By: #### 2 4323-8 ####[facility] HOSPITALWNCLIA [id number] [place] [address] [place] ALT [Catalytic activity/Vol] 19 U/L Normal 7-38 [facility] Comment on above: Order Comment: Speci men Type: BLOOD SPECIMENOrdering Facility: [facility] Address: [address] [place] [address] Performed By: #### 2 4323-8 ####[facility] HOSPITALWNCLIA [id number] [place] [address] [place] Anion gap [Moles/Vol] 8 mmol/L Normal 8-15 [facility] Comment on above: Order Comment: Speci men Type: BLOOD SPECIMENOrdering Facility: [facility] Address: [address] [place] [address] Performed By: #### 2 4323-8 ####[facility] CENTERLIA [id number] [place] [address] [place] AST [Catalytic activity/Vol] 21 U/L Normal 13-35 [facility] Comment on above: Order Comment: Speci men Type: BLOOD SPECIMENOrdering Facility: [facility] Address: [address] [place] [address] Performed By: #### 2 4323-8 ####[facility] [id number] [place] [address] [place] Bilirubin [Mass/Vol] 0.9 mg/dL Normal 0.2-1.3 [facility] Comment on above: Order Comment: Speci men Type: BLOOD SPECIMENOrdering Facility: [facility] Address: [address] [place], [place] [address] Performed By: #### 2 4323-8 ####[facility] CENTERLIA [id number] [place] [address] [place] Calcium [Mass/Vol] 9.7 mg/dL Normal 8.5-10.2 [facility] Comment on above: Order Comment: Speci men Type: BLOOD SPECIMENOrdering Facility: [facility] Address: [address] [place] [address] Performed By: #### 2 4323-8 ####[facility] [id number] [place] [address] [place] Chloride [Moles/Vol] 105 mmol/L Normal 98-107 [facility] Comment on above: Order Comment: Speci men Type: BLOOD SPECIMENOrdering Facility: [facility] Address: [address] [place] [address] Performed By: #### 2 4323-8 ####[facility] [id number] [place] [address] [place] CO2 [Moles/Vol] 23 mmol/L Normal 22-30 [facility] Comment on above: Order Comment: Speci men Type: BLOOD SPECIMENOrdering Facility: [facility] Address: [address] [place] [address] Performed By: #### 2 4323-8 ####[facility] CENTERLI [id number] [place] [address] [place] Creatinine [Mass/Vol] 0.86 mg/dL Normal 0.58-0.96 [facility] Comment on above: Order Comment: Speci men Type: BLOOD SPECIMENOrdering Facility: [facility] Address: [address] [place] [address] Performed By: #### 2 4323-8 ####[facility] [id number] [place] [address] [place] [facility] Creatinine and Glomerular filtration rate.predicted panel (S/P/Bld) 91 mL/min/1.73m??? Normal >=60 [facility] Comment on above: Order Comment: Speci men Type: BLOOD SPECIMENOrdering Facility: [facility] Address: [address] [place] [address] Result Comment: Sudha mated Glomerular Filtration Rate [...] actual GFR. Performed By: #### 2 4323-8 ####[facility]CL[facility] [id number] [place] [address] [place] Glucose [Mass/Vol] 97 mg/dL Normal 74-99 [facility] Comment on above: Order Comment: Telly sams Type: BLOOD SPECIMENOrdering Facility: [facility] Address: [address] [place] [address] Result Comment: The [employer] Diabetes Association (ADA) provides guidance for cutoff [...] Standards of Medical Care in Diabetes 2016, British Diabetes Association. Diabetes Care. 2016.39(Suppl 1). Performed By: #### 2 4323-8 ####[facility] CENTERLIA [id number] [place] [address] [place] Potassium [Moles/Vol] 3.8 mmol/L Normal 3.7-5.1 [facility] Comment on above: Order Comment: Telly sams Type: BLOOD SPECIMENOrdering Facility: [facility] Address: [address] [id number] Performed By: #### 2 4323-8 ####[facility]ENNCLIA [id number] [place] [address] [place] Protein [Mass/Vol] 7.0 g/dL Normal 6.3-8.0 [facility] Comment on above: Order Comment: Speci men Type: BLOOD SPECIMENOrdering Facility: [facility] Address: [address] [place] [address] Performed By: #### 2 4323-8 ####[facility] CENTERLIA [id number] [place] [address] [place] Sodium [Moles/Vol] 136 mmol/L Normal 136-144 [facility] Comment on above: Order Comment: Speci men Type: BLOOD SPECIMENOrdering Facility: [facility] Address: [address] [place] [address] Performed By: #### 2 4323-8 ####[facility] [id number] [place] [address] [place] Urea nitrogen [Mass/Vol] 18 mg/dL Normal 7-21 [facility] Comment on above: Order Comment: Speci men Type: BLOOD SPECIMENOrdering Facility: [facility] Address: [address] [place] [address] Performed By: #### 2 4323-8 ####[facility] [id number] [place] [address] [place] Ferritin SerPl-mCncon 2023 Ferritin [Mass/Vol] 36.3 ng/mL Normal 14.7-205.1 [facility] Comment on above: Order Comment: Speci men Type: BLOOD SPECIMENOrdering Facility: [facility] Address: [address] [place] [address] Performed By: #### 2 276-4, 82381-2, 3016-3 ####[facility] LABCLIA [id number] [place] [address] [place]#### 58995-6 ####[facility] LABCLIA [id number] [place] [address] [place] [facility] [id number] [place] [address] [place] Folate SerPl-mCncon 01-20-20 24 Folate [Mass/Vol] 7.3 ng/mL Normal >4.7 [facility] Comment on above: Order Comment: Telly sams Type: BLOOD SPECIMENOrdering Facility: [facility] Address: [address] [place] [address] Performed By: #### 2 132-9, 2284-8 ####[facility] LABCLIA [id number] [place] [address] [place] HbA1c (Bld)on 01-20-2024 Average glucose Estimated from glycated hemoglobin (Bld) [Mass/Vol] 103 mg/dL Normal [facility] Comment on above: Order Comment: Telly [facility] Type: BLOOD SPECIMENOrdering Facility: [facility] Address: [address] [place] [address] Result Comment: eAG: (Estimated average glucose) is a calculated value from HgbA1c and is appeals representative of the average blood glucose level in the last 2-3 month period. Performed By: #### 5 5454-3 ####[facility] LABCLIA [id number] [address] [place] HbA1c (Bld) [Mass fraction] 5.2 % Normal 4.3-5.6 [facility] Comment on above: Order Comment: Telly [facility] Type: BLOOD SPECIMENOrdering Facility: [facility] Address: [address] [place] [address] Result Comment: Amer ican Diabetes Association guidelines indicate that patients with HgbA1c in the range 5.7-6.4% are at increased risk for development of diabetes, and intervention by lifestyle modification may be beneficial. HgbA1c greater or equal to 6.5% is considered diagnostic of diabetes. Performed By: #### 5 5454-3 ####[facility] LABCLIA [id number] [address] [address] [place] Iron and Iron binding capaci ty panelon 01-20-2024 Iron [Mass/Vol] 71 ug/dL Normal 41-186 [facility] Comment on above: Order Comment: Speci men Type: BLOOD SPECIMENOrdering Facility: [facility] Address: [address] [place] [address] Performed By: #### 2 276-4, 63471-4, 3016-3 ####[facility] LABCLIA [id number] [place] [id number] [place]#### 30497-5 ####[facility] LABCLIA [id number] [place] [id number] [facility] [id number] [place] [address] [place] Iron binding capacity [Mass/Vol] 366 ug/dL Normal 232-386 [facility] Comment on above: Order Comment: Speci men Type: BLOOD SPECIMENOrdering Facility: [facility] Address: [address] [place] [address] Performed By: #### 2 276-4, 23847-1, 3016-3 ####[facility] LABCLIA [id number] [place] [id number] [place]#### 00066-9 ####[facility] LABCLIA [id number] [place] [id number] [place] [facility] [id number] [place] [address] [place] Iron/TIBC [Molar ratio] 19.4 % Normal 15.0-57.0 [facility] Comment on above: Order Comment: Speci men Type: BLOOD SPECIMENOrdering Facility: [facility] Address: [address] [place] [address] Performed By: #### 2 276-4, 30685-8, 3015-3 ####[facility] LABCLIA [id number] [place] [address] [place]#### 06976-5 ####[facility] LABCLIA [id number] [place] [address] [place] [facility] [id number] [place] [address] [place] Lipid 1996 panelon 4 Cholesterol [Mass/Vol] 162 mg/dL Normal <[address] [facility] Comment on above: Order Comment: Speci men Type: BLOOD SPECIMENOrdering Facility: [facility] Address: [address] [place] [address] Result Comment: <200 mg/dL, Desirable 200-239 mg/dL, Borderline high >239 mg/dL, High Performed By: #### 2 276-4, 42640-5, 3 ####[facility] LABCLIA [id number] [place] [address] [place]#### 33139-2 ####[facility] LABCLIA [id number] [place] [address] [place] [facility] [id number] [place] [address] [place] Cholesterol in HDL [Mass/Vol] 60 mg/dL Normal >39 [facility] Comment on above: Order Comment: Speci men Type: BLOOD SPECIMENOrdering Facility: [facility] Address: [address] [place] [address] Result Comment: 40-5 9 mg/dL, Acceptable >59 mg/dL, High: Negative risk factor for coronary heart disease <40 mg/dL, Low: Positive risk factor for coronary heart disease Performed By: #### 2 276-4, 60708-7, 3015-3 ####[facility] LABCLIA [id number] [place] [address] [place]#### 32077-6 ####[facility] LABIA [id number] [address] [id number] [place] [address] [place] Cholesterol in LDL [Mass/Vol] 93 mg/dL Normal <100 [facility] Comment on above: Order Comment: Speci men Type: BLOOD SPECIMENOrdering Facility: [facility] Address: [address] [place] [address] Result Comment: <100 mg/dL, Optimal 100-129 mg/dL, Near optimal/above optimal 130-159 mg/dL, Borderline high 160-189 mg/dL, High >189 mg/dL, Very high Secondary prevention optimal LDL Cholesterol levels are recommended to be < 70 mg/dL Performed By: #### 2 276-4, 88314-5, 3016-3 ####[facility] LABCLIA [id number] [place] [address] [place]#### 39545-2 ####[facility] LABIA [id number] [address] [id number] [place] [address] [place] Cholesterol in LDL/Cholesterol in HDL [Mass ratio] 1.55 {ratio} Normal <2.54 [facility] Comment on above: Order Comment: Speci men Type: BLOOD SPECIMENOrdering Facility: [facility] Address: [address] [place] [address] Result Comment: Gumaro sierra: 1. National Cholesterol Education Program ATP III Guideline At-A-Glance Quick Desk Reference: National Heart, Lung, and Blood [place]. National Institutes of Health. 2001: NIH Publication No. 01-3305. 2. An International Atherosclerosis Society position paper: global recommendations for the management of dyslipidemia: executive summary, Atherosclerosis. 2014: 232(2):410-413. Performed By: #### 2 276-4, 13200-6, 6-3 ####[facility] LABCLIA [id number] [place] [address] [place]#### 21345-6 ####[facility] LABCLIA [id number] [place] [id number] [facility] [id number] [place] [address] [place] Cholesterol in VLDL [Mass/Vol] 9 mg/dL Normal <30 [facility] Comment on above: Order Comment: Speci men Type: BLOOD SPECIMENOrdering Facility: [facility] Address: [address] [place] [address] Performed By: #### 2 276-4, 21760-4, 3 ####[facility] LABCLIA [id number] [place] [address] [place]#### 98705-4 ####[facility] LABCLIA [id number] [address] [id number] [place] [address] [place] Cholesterol non HDL [Mass/Vol] 102 mg/dL Normal <130 [facility] Comment on above: Order Comment: Speci men Type: BLOOD SPECIMENOrdering Facility: [facility] Address: [address] [place] [address] Result Comment: <130 mg/dL, Optimal 130-159 mg/dL, Near optimal/above optimal 160-189 mg/dL, Borderline high 190-219 mg/dL, High >219 mg/dL, Very high Secondary prevention optimal non HDL Cholesterol levels are recommended to be <100 mg/dL Performed By: #### 2 276-4, 00108-5, 3015-3 ####[facility] LABCLIA [id number] [place] [id number] [place]#### 93620-7 ####[facility] LABCLIA [id number] [place] [id number] [facility] [id number] [place] [address] [place] Cholesterol.total/Jada sterol in HDL [Mass ratio] 2.70 {ratio} Normal <5.10 [facility] Comment on above: Order Comment: Speci men Type: BLOOD SPECIMENOrdering Facility: [facility] Address: [address] [place] [address] Performed By: #### 2 276-4, 82482-3, 6-3 ####[facility] LABCLIA [id number] [place] [address] [place]#### [id number] ####[facility] LABCLIA [id number] [place] [id number] [place] [facility] [id number] [place], [place] [id number] [place] FASTING TIME 12 hrs Normal [facility] Comment on above: Order Comment: Speci men Type: BLOOD SPECIMENOrdering Facility: [facility] Address: [address] [place] [address] Performed By: #### 2 276-4, 83808-1, 3016-3 ####[facility] LABCLIA [id number] [place] [id number] [place]#### [id number] ####[facility] LABCLIA [id number] [address] [address] [place] [facility] [id number] [place] [address] [place] Triglyceride [Mass/Vol] 45 mg/dL Normal <150 [facility] Comment on above: Order Comment: Speci flaquita Type: BLOOD SPECIMENOrdering Facility: [facility] Address: [address] [place] [address] Result Comment: <150 mg/dL, Normal 150-199 mg/dL, Borderline high 200-499 mg/dL, High >499 mg/dL, Very high Performed By: #### 2 276-4, 24899-9, 3016-3 ####[facility] LABCLIA [id number] [address]#### [address]-8 ####[facility] LABIA [id number] [address] [id number] [address] [place] [facility] 01-20-2024 TSH Qn 1.960 m[IU]/L Normal 0.270-4.200 [facility] Comment on above: Order Comment: Angelai flaquita Type: BLOOD SPECIMENOrdering Facility: [facility] Address: [address] [place] [address] Result Comment: If t he patient is [...] E, et al. 2017 Guidelines of the [place] [employer] for the Diagnosis and Management of Thyroid Disease during and the . Thyroid, 2017:27:3:315-389. Performed By: #### 2 276-4, 87116-7, 6-3 ####[facility] LABCLIA [id number] [address] [address] [place]#### [id number] ####[facility] LABIA [id number] [place] [id number] [place] [facility] [id number] [place] [address] [place] VITAMIN B1 (THIAMINE), WHOLE BLOODon 01-20-2024 Thiamine (Bld) [Moles/Vol] 156.6 nmol/L Normal 84.3-213.3 [facility] Comment on above: Order Comment: Speci men Type: BLOOD SPECIMENOrdering Facility: [facility] Address: [address] [place] [address] Result Comment: This assay measures the concentration of thiamine diphosphate (TDP), the primary active form of vitamin B1. Approximately 90 percent of vitamin B1 present in whole blood is TDP. Thiamine and thiamine monophosphate, which comprise the remaining 10 percent, are not measured. This test was developed, and its performance characteristics determined by the [facility] Department of Pathology and Laboratory Medicine. It has not been cleared or approved by the FDA. The [facility] Department of Pathology and Laboratory Medicine is regulated under CLIA as qualified to perform high-complexity testing. This test is used for clinical purposes. It should not be regarded as investigational or for research. Performed By: #### B 1WB ####[facility] LABIA [id number] [place] [id number] [place] Vit B12 SerPl-mCncon 024 Cobalamin (Vitamin B12) [Mass/Vol] 911 pg/mL Normal 232-1245 [facility] Comment on above: Order Comment: Speci men Type: BLOOD SPECIMENOrdering Facility: [facility] Address: [address] [place] [id number] Performed By: #### 2 132-9, 2284-8 ####[facility] LABIA [id number] [place] [id number] [place] US THYROID/PARATHYROIDon US THYROID/PARATHYROID * * *Final Report * * * DATE OF EXAM: Dec 19 2023 9:37AM [facility] 1048 - US THYROID/PARATHYROID / [...] 2 points Echogenicity: Hypoechoic, 2 points Shape: [id number], 0 points Margin: Smooth, 0 points Echogenic foci: None, 0 points TI-RADS Category: 4 ACR Recommendation: No FNA or follow-up imaging is advised. Nodule #2 Location: Right lower pole Size: 1.4 x 1.1 x 1 cm ; similar to the prior. Characteristics: Composition: Solid or almost completely solid, 2 points Echogenicity: Hypoechoic, 2 points Shape: [id number], 0 points Margin: Smooth, 0 points Echogenic [...] not consider stability or previous biopsy results. City Collector: TOM Transcribe Date/Time: Dec 22 2023 6:30A Dictated by : MARTHA LEON MD This examination was interpreted and the report reviewed and electronically signed by: MARTHA LEON MD on Dec 22 2023 6:32AM EST [id number] N Normal [facility] CNOVon 11-21-2023 [facility] MARY BURRELL ([id number]) 1990 F Date Time Provider Department 11/21/23 1:20 PM [facility], we recorded the following information about you: Pulse Blood pressure Weight 97/minute 110/72 93.4 kg Kiera Carson APRN.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 Normal [facility] T3 FREE [facility] 08-15-2023 Free T3 [Mass/Vol] 3.1 pg/mL 2.3 - 4.1 pg/mL [facility] T4 FREE/FREE THYROXon 2023 Free T4 [Mass/Vol] 1.2 ng/dL 0.9 - 1.7 ng/dL [facility] TSH [facility] 08-15-2023 TSH Qn 2.140 m[IU]/L 0.270 - 4.200 mIU/L [facility] Absolute lymphocyte countOrd ered By: Aj Carmichael on 06-21-2023 Lymphocytes Auto (Unsp spec) [#/Vol] 1.93 10*3/uL 0.83-4.51 [facility] Automated lymphocyte count a s percentage of total leukocytesOrdered By: Aj Carmichael on 06-21-2023 Lymphocytes/100 WBC Auto (Unsp spec) 43.1 % 19-41 [facility] Basophil percentageOrdered B y: Aj Carmichael on 06-21-2023 Basophils/100 WBC (Bld) 0.2 % 0-1 [facility] Bilirubin [Mass/Vol] 1.00 mg/dL 0.20-1.00 [facility] Comment on above: For patients on eltr ombopag therapy, use of Dimension [place] TBIL is not recommended. Chloride [Moles/Vol] 109 mmol/L 98-107 [facility] Eosinophils/100 WBC (Bld) 3.3 % 0-5 [facility] Glucose [Mass/Vol] 88 mg/dL 74-106 [facility] Hemoglobin (Bld) [Mass/Vol] 13.4 g/dL 12.0-15.0 [facility] Monocytes/100 WBC (Bld) 5.8 % 0-10 [facility] Neutrophils (Bld) [#/Vol] 2.1 10*3/uL 2.0-7.7 [facility] Neutrophils/100 WBC (Bld) 47.6 % 47-70 [facility] Potassium [Moles/Vol] 4.2 mmol/L 3.5-5.1 [facility] Protein [Mass/Vol] 7.0 g/dL 6.4-8.2 [facility] Sodium [Moles/Vol] 142 mmol/L 136-145 [facility] WBC (Bld) [#/Vol] 4.5 10*3/uL 4.4-11.0 [facility] Determination of erythrocyte mean corpuscular volume (MCV)Ordered By: Aj Carmichael on 06-21-2023 MCV (RBC) [Entitic vol] 89.7 fL 81-99 [facility] Erythrocyte distribution wid th ratioOrdered By: Aj Carmichael on 06-21-2023 Erythrocyte distribution width (RBC) [Ratio] 13.0 % 11.6-14.6 [facility] Erythrocyte distribution wid th standard deviationOrdered By: Aj Carmichael on 06-21-2023 Erythrocyte distribution width (RBC) [Entitic vol] 42.7 fL 35.1-43.9 [facility] Hematocrit Auto (Bld) [Volum e fraction]Ordered By: Aj Carmichael on 06-21-2023 Hematocrit (Bld) [Volume fraction] 41.6 % 37-47 [facility] Immature granulocytes/100 WB C Auto (Bld)Ordered By: Aj Carmichael on 06-21-2023 Immature granulocytes/100 WBC (Bld) 0.000 % 0.0-0.9 [facility] Comment on above: IG% - Immature Granu locytes (promyelocytes, myelocytes and metamyelocytes) > 1% indicates that a LEFT SHIFT is Present. Iron measurement (mass/mass) Ordered By: Aj Carmichael on 06-21-2023 Iron (Unsp spec) [Mass/Mass] 76 ug/dL 50-170 [facility] Laboratory - Chemistry and C hemistry - challengeOrdered By: Aj Carmichael on 06-21-2023 Albumin/Globulin [Mass ratio] 1.1 {ratio} 0.9-2.4 [facility] ALP [Catalytic activity/Vol] 72 U/L 45-117 [facility] ALT [Catalytic activity/Vol] 37 U/L 13-56 [facility] CO2 [Moles/Vol] 28.0 mmol/L 21.0-32.0 [facility] Cobalamin (Vitamin B12) [Mass/Vol] 409 pg/mL 211-911 [facility] Ferritin [Mass/Vol] 17 ng/mL 8-252 [facility] Globulin (S) [Mass/Vol] 3.4 g/dL 2.2-4.2 [facility] Magnesium [Mass/Vol] 2.4 mg/dL 1.6-2.6 [facility] Urea nitrogen/Creatinine [Mass ratio] 24.5 mg/mg 10-20 [facility] Laboratory - Hematology and Cell countsOrdered By: Aj Carmichael on 06-21-2023 MCH (RBC) [Entitic mass] 28.9 pg 27.0-32.0 [facility] MCHC (RBC) [Mass/Vol] 32.2 g/dL 32-36 [facility] Nucleated RBC/100 WBC (Bld) [Ratio] 0 % 0-5 [facility] Platelet mean volume (Bld) [Entitic vol] 9.4 fL 6.2-12.0 [facility] Platelets (Bld) [#/Vol] 246 10*3/uL 150-450 [facility] No Panel InformationOrdered By: Aj Carmichael on 06-21-2023 Estimated GFR (MDRD) Amer 109 mL/min >60 [facility] Comment on above: GFR Calc Estimated GFR (MDRD) Non-Af Amer 90 mL/min >60 [facility] Comment on above: Non- GFR Calc Vitamin D 25-Hydroxy 45.8 ng/mL [facility] Comment on above: Vitamin D 25(OH) Sta tus Range Deficiency <20 ng/mL (50nmol/L) Insufficiency 20 - 30 ng/mL (50 - 75 nmol/L) Sufficiency 30 - 100 ng/mL (75 - 250 nmol/L) Toxicity >100 ng/mL (>250 nmol/L) RBC Auto (Bld) [#/Vol]Ordere d By: Aj Carmichael on 06-21-2023 RBC (Bld) [#/Vol] 4.64 10*6/uL 4.2-5.4 [facility] Serum or plasma calcium jose urement (mass/volume)Ordered By: Aj Carmichael on 06-21-2023 Calcium [Mass/Vol] 9.0 mg/dL 8.5-10.1 [facility] Serum or plasma creatinine m easurement (mass/volume)Ordered By: Aj Carmichael on 06-21-2023 Creatinine [Mass/Vol] 0.78 mg/dL 0.55-1.02 [facility] Comment on above: The validity of the calculated GFR & GFRAA in patients over 70 years has not been determined. Clinical correlation is essential. Serum or plasma thyroid stim ulating hormone (TSH) measurement (units/volume)Ordered By: Aj Carmichael on 06-21-2023 TSH Qn 1.41 uIU/mL 0.358-3.74 [facility] Serum or plasma urea nitroge n measurement (mass/volume)Ordered By: Aj Carmichael on 06-21-2023 Urea nitrogen [Mass/Vol] 19 mg/dL 7-18 [facility] Thin prep Papanicolaou smear with manual screeningOrdered By: Aj Carmichael on 06-21-2023 Thin prep Papanicolaou smear with manual screening 3.6 g/dL 3.2-5.0 [facility] Thin prep Papanicolaou smear with manual screening 21 U/L 15-37 [facility] Thin prep Papanicolaou smear with manual screening 5 5-15 [facility] Thin prep Papanicolaou smear with manual screening 1.04 ng/dL 0.76-1.46 [facility] No Panel InformationOrdered By: Felice Centeno on 03-09-2023 Parathyroid Hormone (Intact) 80.0 pg/mL 18.4-80.1 [facility] Serum or plasma calcium jose urement (mass/volume)Ordered By: Felice Centeno on 03-09-2023 Calcium [Mass/Vol] 9.4 mg/dL 8.5-10.1 [facility] US THYROID/PARATHYROIDon [facility] XR Abdomen Supine and Uprigh ton 09-24-2022 IMPRESSION: Unremarkable abdomen x-ray. City Collector: TOM Transcribe Date/Time: Sep 24 2022 12:54P Dictated by : DENAE ARCE MD This examination was interpreted and the report reviewed and electronically signed by: DENAE ARCE MD on Sep 24 2022 12:56PM [facility] DIVISION OF RADIOLOGY * * *Final Report* [...] structures appear intact. DIVISION OF RADIOLOGY Provider, [facility] - 09/24/2022 * * *Final Report* * [...] appear intact. IMPRESSION IMPRESSION: Unremarkable abdomen x-ray. City Collector: TOM Transcribe Date/Time: Sep 24 2022 12:54P Dictated by : DENAE ARCE MD This examination was interpreted and the report reviewed and electronically signed by: DENAE ARCE MD on Sep 24 2022 12:56PM EST [facility] XR Abdomen Supine and Uprigh tOrdered By: [facility] Provider on 09-24-2022 [facility] CBC W Auto Differential pane l (Bld)on 09-21-2022 Basophils (Bld) [#/Vol] <0.11 k/uL [facility] Basophils/100 WBC (Bld) 0.3 % C [facility] Differential cell count method Nom (Bld) Auto [facility] Eosinophils (Bld) [#/Vol] 0.08 10*3/uL <0.46 k/uL [facility] Eosinophils/100 WBC (Bld) 1.1 % [facility] Erythrocyte distribution width (RBC) [Ratio] 13.4 % 11.5 - 15.0 % [facility] Hematocrit (Bld) [Volume fraction] 41.8 % 36.0 - 46.0 % [facility] Hemoglobin (Bld) [Mass/Vol] 13.3 g/dL 11.5 - 15.5 g/dL [facility] Immature granulocytes (Bld) [#/Vol] <0.10 k/uL [facility] Immature granulocytes/100 WBC (Bld) 0.1 % [facility] Lymphocytes (Bld) [#/Vol] 2.22 10*3/uL 1.00 - 4.00 k/uL [facility] Lymphocytes/100 WBC (Bld) 30.5 % [facility] MCH (RBC) [Entitic mass] 28.7 pg 26.0 - 34.0 pg [facility] MCHC (RBC) [Mass/Vol] 31.8 g/dL 30.5 - 36.0 g/dL [facility] MCV (RBC) [Entitic vol] 90.1 fL 80.0 - 100.0 fL [facility] Monocytes (Bld) [#/Vol] 0.28 10*3/uL <0.87 k/uL [facility] Monocytes/100 WBC (Bld) 3.8 % [facility] Neut[facility] (Bld[facility] [#/Vol] 4.68 10*3/uL 1.45 - 7.50 k/uL [facility] Neutrophils/100 WBC (Bld) 64.2 % [facility] Nucleated RBC (Bld) [#/Vol] <0.01 k/uL [facility] Nucleated RBC/100 WBC (Bld) [Ratio] 0.0 /100 WBC [facility] Platelet mean volume (Bld) [Entitic vol] 10.2 fL 9.0 - 12.7 fL [facility] Platelets (Bld) [#/Vol] 270 10*3/uL 150 - 400 k/uL [facility] RBC (Bld) [#/Vol] 4.64 10*6/uL 3.90 - 5.2 0 m/uL [facility] WBC (Bld) [#/Vol] 7.29 10*3/uL 3.70 - 11.00 k/uL [facility] XR Abdomen Supine and Uprigh ton 09-21-2022 Radiology Study observation (narrative) [facility] Absolute lymphocyte countOrd ered By: Dr. Smalls on 09-20-2022 Lymphocytes Auto (Unsp spec) [#/Vol] 2.36 10*3/uL 0.83-4.51 [facility] Basophil percentageOrdered B y: Dr. Smalls on 09-20-2022 Basophils/100 WBC (Bld) 0.3 % 0-1 W [facility] Bilirubin [Mass/Vol] 0.70 mg/dL 0.20-1.00 [facility] Comment on above: For patients on eltr ombopag therapy, use of Dimension [place] TBIL is not recommended. Chloride [Moles/Vol] 104 mmol/L 98-107 [facility] Eosinophils/100 WBC (Bld) 1.3 % 0-5 [facility] Glucose [Mass/Vol] 93 mg/dL 74-106 [facility] Neutrophils (Bld) [#/Vol] 4.0 10*3/uL 2.0-7.7 [facility] Neutrophils/100 WBC (Bld) 59.0 % 47-70 [facility] Potassium [Moles/Vol] 4.1 mmol/L 3.5-5.1 [facility] Protein [Mass/Vol] 7.2 g/dL 6.4-8.2 [facility] Sodium [Moles/Vol] 139 mmol/L 136-145 [facility] WBC (Bld) [#/Vol] 6.8 10*3/uL 4.4-11.0 [facility] Basophil percentage 0 SEEN /hpf 0-5 [facility] Bilirubin Test strip Ql (U)O rdered By: Dr. Smalls on 09-20-2022 Bilirubin Ql (U) Negative Negative [facility] Blood erythrocytes count (nu mber/volume)Ordered By: Dr. Samlls on 09-20-2022 RBC (Bld) [#/Vol] 4.69 10*6/uL 4.2-5.4 [facility] Blood hemoglobin measurement (mass/volume)Ordered By: Dr. Smalls on 09-20-2022 Hemoglobin (Bld) [Mass/Vol] 13.3 g/dL 12.0-15.0 [facility] Blood lymphocytes/100 leukoc ytesOrdered By: Dr. Smalls on 09-20-2022 Lymphocytes/100 WBC (Bld) 34.9 % 19-41 [facility] Blood monocytes/100 leukocyt esOrdered By: Dr. Smalls on 09-20-2022 Monocytes/100 WBC (Bld) 4.4 % 0-10 [facility] Blood platelet mean volumeOr dered By: Dr. Smalls on 09-20-2022 Platelet mean volume (Bld) [Entitic vol] 9.7 fL 6.2-12.0 [facility] Determination of erythrocyte mean corpuscular volume (MCV)Ordered By: Dr. Smalls on 09-20-2022 MCV (RBC) [Entitic vol] 88.1 fL 81-99 [facility] Hematocrit Auto (Bld) [Volum e fraction]Ordered By: Dr. Smalls on 09-20-2022 Hematocrit (Bld) [Volume fraction] 41.3 % 37-47 [facility] Ketones Test strip Ql (U)Ord ered By: Dr. Smalls on 09-20-2022 Ketones Ql (U) 50 mg/dl Negative [facility] Laboratory - Chemistry and C hemistry - challengeOrdered By: Dr. Smalls on 09-20-2022 ALP [Catalytic activity/Vol] 80 U/L 45-117 [facility] ALT [Catalytic activity/Vol] 31 U/L 13-56 [facility] CO2 [Moles/Vol] 27.0 mmol/L 21.0-32.0 [facility] Globulin (S) [Mass/Vol] 3.8 g/dL 2.2-4.2 [facility] Urea nitrogen/Creatinine [Mass ratio] 27.8 mg/mg 10-20 [facility] - Hematology and Cell countsOrdered By: Dr. Smalls on 09-20-2022 Erythrocyte distribution width (RBC) [Entitic vol] 42.9 fL 35.1-43.9 [facility] Erythrocyte distribution width (RBC) [Ratio] 13.2 % 11.6-14.6 [facility] Immature granulocytes/100 WBC (Bld) 0.100 % 0.0-0.9 [facility] Comment on above: IG% - Immature Granu locytes (promyelocytes, myelocytes and metamyelocytes) > 1% indicates that a LEFT SHIFT is Present. MCH (RBC) [Entitic mass] 28.4 pg 27.0-32.0 [facility] Nucleated RBC/100 WBC (Bld) [Ratio] 0 % 0-5 [facility] MCHC Auto (RBC) [Mass/Vol]Or dered By: Dr. Smalls on 09-20-2022 MCHC (RBC) [Mass/Vol] 32.2 g/dL 32-36 [facility] Mucus LM Ql (Urine sed)Order ed By: Dr. Smalls on 09-20-2022 Mucus Ql (Urine sed) 0 SEEN /hpf [facility] Nitrite Test strip Ql (U)Ord ered By: Dr. Smalls on 09-20-2022 Nitrite Ql (U) Negative Negative [facility] No Panel InformationOrdered By: Dr. Smalls on 09-20-2022 Estimated Creatinine Clearance Calc 102.39 ml/min [facility] Estimated GFR (MDRD) Amer 113 mL/min >60 [facility] Comment on above: GFR Calc Estimated GFR (MDRD) Non-Af Amer 94 mL/min >60 [facility] Comment on above: Non- GFR Calc Platelets bldOrdered By: Dr. Smalls on 09-20-2022 Platelets (Bld) [#/Vol] 276 10*3/uL 150-450 [facility] Protein Test strip Ql (U)Ord ered By: Dr. Smalls on 09-20-2022 Protein Ql (U) Negative Negative [facility] Serum or plasma albumin jose urement (mass/volume)Ordered By: Dr. Smalls on 09-20-2022 Albumin [Mass/Vol] 3.4 g/dL 3.2-5.0 [facility] Serum or plasma albumin/glob ulin mass ratioOrdered By: Dr. Smalls on 09-20-2022 Albumin/Globulin [Mass ratio] 0.9 {ratio} 0.9-2.4 [facility] Serum or plasma calcium jose urement (mass/volume)Ordered By: Dr. Smalls on 09-20-2022 Calcium [Mass/Vol] 9.0 mg/dL 8.5-10.1 [facility] Serum or plasma creatinine m easurement (mass/volume)Ordered By: Dr. Smalls on 09-20-2022 Creatinine [Mass/Vol] 0.76 mg/dL 0.55-1.02 [facility] Comment on above: The validity of the calculated GFR & GFRAA in patients over 70 years has not been determined. Clinical correlation is essential. Serum or plasma urea nitroge n measurement (mass/volume)Ordered By: Dr. Smalls on 09-20-2022 Urea nitrogen [Mass/Vol] 21 mg/dL 7-18 [facility] Squamous epithelial cells de tection in urine sediment by light microscopyOrdered By: Dr. Smalls on 09-20-2022 Epithelial cells.squamous LM Ql (Urine sed) 5-10 SEEN /hpf 5-10 [facility] Thin prep Papanicolaou smear with manual screeningOrdered By: Dr. Smalls on 09-20-2022 Thin prep Papanicolaou smear with manual screening 15 U/L 15-37 [facility] Thin prep Papanicolaou smear with manual screening 8 5-15 [facility] Urine blood detectionOrdered By: Dr. Smalls on 09-20-2022 RBC Ql (U) Negative Negative [facility] RBC Ql (U) 0 SEEN /hpf 0-5 [facility] Urine clarityOrdered By: Dr. Smalls on 09-20-2022 Clarity (U) Clear Clear [facility] Urine color determinationOrd ered By: Dr. Smalls on 09-20-2022 Color (U) Yellow Yellow [facility] Urine glucose detectionOrder ed By: Dr. Smalls on 09-20-2022 Glucose Ql (U) Normal mg/dl Normal [facility] Urine leukocyte esterase det ection by dipstickOrdered By: Dr. Smalls on 09-20-2022 Leukocyte esterase Test strip Ql (U) Negative Negative [facility] Urine pHOrdered By: Dr. Maribell amor on 09-20-2022 pH (U) 6.5 [pH] 5.0 - 8.0 [facility] Urine sediment bacteria coun t by microscopy (number/high power field)Ordered By: Dr. Smalls on 09-20-2022 Bacteria LM.HPF (Urine sed) [#/Area] 1 /[HPF] None Seen [facility] Urine specific gravity measu rementOrdered By: Dr. Smalls on 09-20-2022 Specific gravity (U) [Rel density] 1.015 1.002-1.030 [facility] Urobilinogen Auto test strip Ql (U)Ordered By: Dr. Smalls on 09-20-2022 Urobilinogen Ql (U) Normal mg/dl Normal [facility] No Panel Informationon 07-19 POC SARS CoV-2 Antigen Negative [facility] Comprehensive metabolic 2000 panelon 05-14-2022 Albumin [Mass/Vol] 4.1 g/dL 3.9 - 4.9 g/dL [facility] ALP [Catalytic activity/Vol] 78 U/L 34 - 123 U/L [facility] ALT [Catalytic activity/Vol] 19 U/L 7 - 38 U/L [facility] Anion gap [Moles/Vol] 9 mmol/L 9 - 18 mmol/L [facility] AST [Catalytic activity/Vol] 17 U/L 13 - 35 U/L [facility] Bilirubin [Mass/Vol] 0.9 mg/dL 0.2 - 1 .3 mg/dL [facility] Calcium [Mass/Vol] 9.4 mg/dL 8.5 - 10. 2 mg/dL [facility] Chloride [Moles/Vol] 103 mmol/L 97 - 10 5 mmol/L [facility] CO2 [Moles/Vol] 24 mmol/L 22 - 30 mmol/L [facility] Creatinine [Mass/Vol] 0.79 mg/dL 0.58 - 0.96 mg/dL [facility] Estimated Glomerular Filtration Rate 101 mL/min/1.73m >=60 mL/min/1.73 m [facility] Glucose [Mass/Vol] 81 mg/dL 74 - 99 mg/dL [facility] Potassium [Moles/Vol] 4.3 mmol/L 3.7 - 5.1 mmol/L [facility] Protein [Mass/Vol] 7.2 g/dL 6.3 - 8.0 g/dL [facility] Sodium [Moles/Vol] 136 mmol/L 136 - 144 mmol/L [facility] Urea nitrogen [Mass/Vol] 16 mg/dL 7 - 21 mg/dL [facility] HbA1c (Bld)on 05-14-2022 Average glucose Estimated from glycated hemoglobin (Bld) [Mass/Vol] 100 mg/dL [facility] HbA1c (Bld) [Mass fraction] 5.1 % 4.3 - 5.6 % [facility] Lipid 1996 panelon 3 Cholesterol [Mass/Vol] 178 mg/dL <200 mg/dL [facility] Cholesterol in HDL [Mass/Vol] 48 mg/dL >39 mg/dL [facility] Cholesterol in LDL [Mass/Vol] 118 mg/dL High <100 mg/dL [facility] Cholesterol in LDL/Cholesterol in HDL [Mass ratio] 2.46 {ratio} <2.54 [facility] Cholesterol in VLDL [Mass/Vol] 12 mg/dL <30 mg/dL [facility] Cholesterol non HDL [Mass/Vol] 130 mg/dL High <130 mg/dL [facility] Cholesterol.total/Jada sterol in HDL [Mass ratio] 3.71 {ratio} <5.10 [facility] Fasting Time 13 hrs [facility] Triglyceride [Mass/Vol] 60 mg/dL <150 mg/dL [facility] Progress Noteon 01-31-2018 Postdoctoral Scientist Authentication Interface Message Text Reason for Referral Mary Fournier and her partner Kash Burrell were seen by myself and Kathe Van MS, LGC on 01/31/2018 at [facility] [place] office in order to discuss the results [...] had an ultrasound evaluation on 12/18/2017 at [facility] due to bleeding and the passage of [...] cystic fibrosis has been requested from her nurse practitioner hospitalist's office. In the event that her nurse practitioner hospitalist's office does not have a copy of her test results, Mary also signed a medical release so that her former nurse practitioner hospitalist's office could be contacted (Dr. Nidia Bergeron at [facility] Mary was not sure if carrier screening [...] abnormalities, or genetic conditions. Mary is of [place], [place] and ancestry, and her partner is of [place], [place] and [place] ancestry. There is no known Ashkenazi Protestant ancestry and no known consanguinity. Ultrasound Findings [...] the first part of sequential screening and aMry's increased BMI Weekly surveillance beginning at 32 [...] 03/13/2018 at 1:00 pm in Maternal Medicine's [place] office.) Monitor growth every 4 weeks beginning at 24 weeks gestation and initiate weekly surveillance at 32 weeks due to Pramods increased BMI and low SALVADOR-A. Initiation of 81 mg of aspirin, as planned, due to Mary history of pre-eclampsia during her last . [...] desired, an appointment can be scheduled with 's [facility] by contacting the [facility] at [phone]. Additional follow-up should be as clinically indicated. The total patient time of the visit was 15 minutes, of which greater than 50% of the time was spent counseling and coordinating care. Larry Raman DO Normal ED Note-Provideron 8 ED Note-Provider Normal [facility]) Pat Eduon 08-11-2017 [facility]) Patient Summary Documentson 08-11-2017 Patient Summary Documents [facility]) Blood Bank: Type AND Screeno n 03-04-2017 Antibody Screen Negative Normal [facility] Lab Report: (P) Urinalysis, Completeon 03-04-2017 Bilirubin Ql (U) Negative Invalid Interpretation Code Negative [facility] NITRITE UR Negative Invalid Interpretation Code Negative [facility] OCCULT BLOOD-UR 250 High Negative [facility] specific gravity, urine 1.005 Invalid Interpretation Code 1.002-1.030 [facility] Urine, clarity Cloudy Invalid Interpretation Code Clear [facility] Urine, color Yellow Invalid Interpretation Code Yellow [facility] Urine, glucose presence Normal mg/dl Invalid Interpretation Code Normal [facility] Urine, ketones presence 150 High Negative [facility] Urine, leukocyte esterase presence 500 High Negative [facility] Urine, pH 7.0 [pH] Invalid Interpretation Code 5.0 - 8.0 [facility] Urine, protein 30 mg/dL High Negative [facility] UROBILI Normal mg/dl Invalid Interpretation Code Normal [facility] Lab Report: CBC-Complete Blo od Cnt No Diffon 03-04-2017 Erythrocyte distribution width Auto Ratio (RBC) 14.9 % High 11.6-14.6 [facility] Erythrocytes (RBC) 4.70 10*6/uL Invalid Interpretation Code 4.2-5.4 [facility] Hematocrit (HCT) 39.4 % Invalid Interpretation Code 37-47 [facility] Hemoglobin mass conc (Bld) 12.7 g/dL Invalid Interpretation Code 12.0-15.0 [facility] MCH 27.0 pg Invalid Interpretation Code 27.0-32.0 [facility] MCHC mass conc (RBC) 32.2 G/GL Invalid Interpretation Code 32-36 [facility] MCV 83.8 fL Invalid Interpretation Code 81-99 [facility] Platelets 266 10*3/mm3 Invalid Interpretation Code 150-450 [facility] PMV by Cheng 10.6 fL Invalid Interpretation Code 6.2-12.0 [facility] RDW SD 45.6 fL High 35.1-43.9 [facility] WBC (Leukocytes) 13.5 10*3/uL High 4.4-11.0 [facility] Lab Report: Comprehensive Me tabolic Profilon 03-04-2017 Alanine aminotransferase (ALT) 20 U/L Invalid Interpretation Code 12-78 [facility] Albumin/Globulin Ratio 0.5 {ratio} Low 0.9-2.4 [facility] Alkaline phosphatase (ALP) 160 U/L High 45-117 [facility] Anion gap 13 mmol/L Invalid Interpretation Code 5-15 [facility] Aspartate aminotransferase (AST) 13 U/L Low 15-37 [facility] Bilirubin (total) 0.80 mg/dL Invalid Interpretation Code 0.20-1.00 [facility] Calcium 9.3 mg/dL Invalid Interpretation Code 8.5-10.1 [facility] Chloride 102 mmol/L Invalid Interpretation Code 98-107 [place] [facility] CO2 21.0 mmol/L Invalid Interpretation Code 21.0-32.0 [facility] Globulin 4.7 g/dL High 2.2-4.2 [facility] Potassium molar conc 4.1 mmol/L Invalid Interpretation Code 3.5-5.1 [facility] Sodium 136 mmol/L Invalid Interpretation Code 136-145 [facility] Albumin 2.4 g/dL Low 3.4-5.0 [facility] BUN/Creatinine Ratio 13.9 RATIO Invalid Interpretation Code 10-20 [facility] Creatinine 118.39 mL/min Invalid Interpretation Code [facility] Creatinine 0.72 mg/dL Invalid Interpretation Code 0.55-1.02 [facility] eGFR (non-black) 125 mL/min/{1.73_m2} Invalid Interpretation Code >60 [facility] eGFR (non-black) 103 mL/min/{1.73_m2} Invalid Interpretation Code >60 [facility] Glucose mass conc 77 mg/dL Invalid Interpretation Code 70-110 [facility] Protein 7.1 g/dL Invalid Interpretation Code 6.4-8.2 [facility] Urea nitrogen 10 mg/dL Invalid Interpretation Code 7-18 [facility] Lab Report: Protein+Creatini ne Ratio,Urineon 03-04-2017 Protein [Mass] in Urine collected for unspecified duration 45.3 mg/dL High <11.9 [facility] protein/creatinine, urine, point, quantitative 571 MG/G CRE High 0-200 [facility] Urine, creatinine 79.40 mg/dL Invalid Interpretation Code NO RANGE EST. [facility] Lab Report: Urinalysis, Comp leteon 03-04-2017 Urine, bacteria in sediment 2 /[HPF] Invalid Interpretation Code None Seen [facility] Urine, epithelial cells in sediment 5-10 SEEN Invalid Interpretation Code 5-10 [facility] Urine, erythrocytes in sediment by volume 0-5 SEEN Invalid Interpretation Code 0-5 [facility] Urine, mucus presence in sediment 0 SEEN Invalid Interpretation Code [facility] WBC (Leukocytes) 50-100 SEEN Invalid Interpretation Code 0-5 [facility] Office Visit: OB Routineon 1 Documentation of current medications (procedure) Done Invalid Interpretation Code [facility] Office Visit: OB Routineon 1 Urine, glucose presence N Invalid Interpretation Code [facility] Office Visit: OB Routineon 1 Tobacco smoking status NHIS Never Invalid Interpretation Code [facility] Tobacco use CPHS Never smoker Invalid Interpretation Code [facility] Microbiology: Culture, Group B Streptococcuson 02-13-2017 CUGRB THAIS CultureGroup B Beta Streptococcus is not isolated. Invalid Interpretation Code [facility] Lab Report: Group B Strep DN A By PCRon 02-10-2017 GBS TEST RESULT Negative Invalid Interpretation Code Negative [facility] Office Visit: OB Routineon 0 12-29-2016 Urine, nitrite presence + Invalid Interpretation Code [facility] Vital Signs Date Time Vital Sign Value Performing Clinician Facility 11-05-2024 09:33-0400 Body height 167.[address] Work Phone: [facility] 11-05-2024 09:33-0400 Body mass index (BMI) [Ratio] 36.32 kg/m2 Stef Luis RD Work Phone: [facility] 11-05-2024 09:33-0400 Body weight 102.[address] Work Phone: [facility] Comment on above: verbal per patient 09-21-2024 06:11-0400 Body temperature 98.3 [degF] Dr. Asif Haque MD Work Phone: [facility] 09-21-2024 06:11-0400 Diastolic blood pressure 60 mm[Hg] Dr. Asif Haque MD Work Phone: [facility] 09-21-2024 06:11-0400 Heart rate 87 /min Dr. Asif Haque MD Work Phone: [facility] 09-21-2024 06:11-0400 SaO2% (BldA) [Mass fraction] 98 % Dr. Asif Haque MD Work Phone: [facility] 09-21-2024 06:11-0400 Systolic blood pressure 110 mm[Hg] Dr. Asif Haque MD Work Phone: [facility] 08-09-2024 09:56-0400 Body mass index (BMI) [Ratio] 35.08 kg/m2 Manuela Isbell MD Work Phone: [facility] 08-09-2024 09:56-0400 Body weight 101.6 kg Manuela Isbell MD Work Phone: [facility] 08-09-2024 09:56-0400 Diastolic blood pressure 79 mm[Hg] Manuela Isbell MD Work Phone: [facility] 08-09-2024 09:56-0400 Heart rate 79 /min Manuela Isbell MD Work Phone: [facility] 08-09-2024 09:56-0400 Systolic blood pressure 127 mm[Hg] Manuela Isbell MD Work Phone: [facility] 07-13-2024 13:32-0500 Body height 170.[address] Work Phone: [facility] 07-13-2024 13:32-0500 Body mass index (BMI) [Ratio] 33.99 kg/m2 Stef Luis RD Work Phone: [facility] 07-13-2024 13:32-0500 Body weight 98.[address] Work Phone: [facility] Comment on above: verbal per patient 07-04-2024 15:26-0500 Body mass index (BMI) [Ratio] 35.08 kg/m2 Manuela Isbell MD Work Phone: [facility] 07-04-2024 15:26-0500 Body weight 101.61 kg Manuela Isbell MD Work Phone: [facility] 05-29-2024 12:50-0500 Body height 170.2 cm Ping Alexney AVIATION SAFETY TECHNICIAN.CROZER OPERATOR Work Phone: [facility] 04-09-2024 12:53-0500 Body height 170.[address] Work Phone: [facility] 04-09-2024 12:53-0500 Body mass index (BMI) [Ratio] 32.58 kg/m2 Stef Densonkaito RD Work Phone: [facility] 04-09-2024 12:53-0500 Body weight 94.[address] Work Phone: [facility] Comment on above: verbal per patient 03-06-2024 07:39-0400 Body mass index (BMI) [Ratio] 34.15 kg/m2 Crista Carmichael APRN.CROZER OPERATOR Work Phone: [facility] 03-06-2024 07:39-0400 Body temperature 98.49 [degF] Crista Carmichael APRN.CROZER OPERATOR Work Phone: [facility] 03-06-2024 07:39-0400 Body weight 98.9 kg Crista Carmichael APRN.CROZER OPERATOR Work Phone: [facility] 03-06-2024 07:39-0400 Diastolic blood pressure 80 mm[Hg] Crista Carmichael APRN.CROZER OPERATOR Work Phone: [facility] 03-06-2024 07:39-0400 Heart rate 100 /min Crista Carmichael APRN.CROZER OPERATOR Work Phone: [facility] 03-06-2024 07:39-0400 Respiratory rate 18 /min Crista Carmichael APRN.CROZER OPERATOR Work Phone: [facility] 03-06-2024 07:39-0400 SaO2% (BldA) [Mass fraction] 98 % Crista Carmichael APRN.CROZER OPERATOR Work Phone: [facility] 03-06-2024 07:39-0400 Systolic blood pressure 122 mm[Hg] Crista Carmichael APRN.CROZER OPERATOR Work Phone: [facility] 02-20-2024 06:50-0400 Body height 170.2 cm Ping Prince AVIATION SAFETY TECHNICIAN.CROZER OPERATOR Work Phone: [facility] 02-20-2024 06:50-0400 Body mass index (BMI) [Ratio] 33.67 kg/m2 Ping Prince AVIATION SAFETY TECHNICIAN.CROZER OPERATOR Work Phone: [facility] 02-20-2024 06:50-0400 Body weight 97.52 kg Ping Prince AVIATION SAFETY TECHNICIAN.CROZER OPERATOR Work Phone: [facility] 02-14-2024 09:16-0400 Body height 170.2 cm Donita Green MD Work Phone: [facility] 02-14-2024 09:16-0400 Body mass index (BMI) [Ratio] 33.67 kg/m2 Donita Green MD Work Phone: [facility] 02-14-2024 09:16-0400 Body weight 97.52 kg Donita Green MD Work Phone: [facility] 02-14-2024 09:16-0400 Diastolic blood pressure 90 mm[Hg] Donita Green MD Work Phone: [facility] 02-14-2024 09:16-0400 Heart rate 78 /min Donita Green MD Work Phone: [facility] 02-14-2024 09:16-0400 Respiratory rate 17 /min Donita Green MD Work Phone: [facility] 02-14-2024 09:16-0400 SaO2% (BldA) [Mass fraction] 97 % Donita Green MD Work Phone: [facility] 02-14-2024 09:16-0400 Systolic blood pressure 122 mm[Hg] Donita Green MD Work Phone: [facility] 01-06-2024 15:05-0400 Body height 170.[address] Work Phone: [facility] 01-06-2024 15:05-0400 Body mass index (BMI) [Ratio] 31.73 kg/m2 Stef Luis RD Work Phone: [facility] 01-06-2024 15:05-040 Body weight 91.[address] Work Phone: [facility] Comment on above: verbal per patient 11-21-2023 13:29-0400 Body mass index (BMI) [Ratio] 32.26 kg/m2 Kiera Suppan AVIATION SAFETY TECHNICIAN.CROZER OPERATOR Work Phone: [facility] 11-21-2023 13:29-0400 Body weight 93.44 kg Kiera Suppjuhi AVIATION SAFETY TECHNICIAN.CROZER OPERATOR Work Phone: [facility] 11-21-2023 13:29-0400 Diastolic blood pressure 72 mm[Hg] Kiera Suppan AVIATION SAFETY TECHNICIAN.CROZER OPERATOR Work Phone: [facility] 11-21-2023 13:29-0400 Heart rate 97 /min Kiera Suppan AVIATION SAFETY TECHNICIAN.CROZER OPERATOR Work Phone: [facility] 11-21-2023 13:29-0400 SaO2% (BldA) [Mass fraction] 99 % Kiera Suppan AVIATION SAFETY TECHNICIAN.CROZER OPERATOR Work Phone: [facility] 11-21-2023 13:29-0400 Systolic blood pressure 110 mm[Hg] Kiera Suppan AVIATION SAFETY TECHNICIAN.CROZER OPERATOR Work Phone: [facility] 10-20-2023 11:19-0400 Body height 170.2 cm Ping Prince AVIATION SAFETY TECHNICIAN.CROZER OPERATOR Work Phone: [facility] 10-20-2023 11:19-0400 Body mass index (BMI) [Ratio] 31.98 kg/m2 Ping Prince AVIATION SAFETY TECHNICIAN.CROZER OPERATOR Work Phone: [facility] 10-20-2023 11:19-0400 Body weight 92.63 kg Ping Prince AVIATION SAFETY TECHNICIAN.CROZER OPERATOR Work Phone: [facility] 10-07-2023 14:54-0400 Body height 170.[address] Work Phone: [facility] 10-07-2023 14:54-0400 Body mass index (BMI) [Ratio] 31.42 kg/m2 Stef Luis RD Work Phone: [facility] 10-07-2023 14:54-0400 Body weight 90.[address] Work Phone: [facility] Comment on above: verbal per patient 08-15-2023 09:53-0400 Body height 170.2 cm Donita Green MD Work Phone: [facility] 08-15-2023 09:53-0400 Body weight 91.63 kg Donita Green MD Work Phone: [facility] 08-15-2023 09:53-0400 Diastolic blood pressure 84 mm[Hg] Donita Green MD Work Phone: [facility] 08-15-2023 09:53-0400 Heart rate 84 /min Donita Green MD Work Phone: [facility] 08-15-2023 09:53-0400 Respiratory rate 17 /min Donita Green MD Work Phone: [facility] 08-15-2023 09:53-0400 SaO2% (BldA) [Mass fraction] 98 % Donita Green MD Work Phone: [facility] 08-15-2023 09:53-0400 Systolic blood pressure 122 mm[Hg] Donita Green MD Work Phone: [facility] 07-14-2023 10:51-0500 Body height 167.6 cm Ping Prince AVIATION SAFETY TECHNICIAN.CROZER OPERATOR Work Phone: [facility] 07-14-2023 10:51-0500 Body weight 96.16 kg Ping Prince AVIATION SAFETY TECHNICIAN.CROZER OPERATOR Work Phone: [facility] 07-07-2023 15:17-0500 Body height 167.[address] Work Phone: [facility] 07-07-2023 15:17-0500 Body weight 96.[address] Work Phone: [facility] 05-13-2023 11:40-0500 Body height 170.[address] Asif Haque Work Phone: [facility] 05-13-2023 11:36-0500 Body mass index (BMI) [Ratio] 32.3 kg/m2 Dr. Asif Haque Work Phone: 5(807)242-586870 [address] 05-13-2023 11:36-0500 Body weight 93.[address] Asif Haque Work Phone: 3(100)023-154842 [place] [address] 05-13-2023 11:36-0500 Diastolic blood pressure 84 mm[Hg] Dr. Asif Haque Work Phone: 3(469)332-507170 [address] 05-13-2023 11:36-0500 Systolic blood pressure 132 mm[Hg] Dr. Asif Haque Work Phone: 7(416)829-970693 [place] [address] 05-10-2023 13:18-0500 Body mass index (BMI) [Ratio] 32.4 kg/m2 Dr. Asif Haque Work Phone: 1(300)130-405642 [place] [address] 05-10-2023 13:18-0500 Body temperature 98.9 [degF] Dr. Asif Haque Work Phone: 1(346)163-555642 [place] [address] 05-10-2023 13:18-0500 Body weight 94.[address] Asif Haque Work Phone: 5(360)909-304142 [place] [address] 05-10-2023 13:18-0500 Diastolic blood pressure 76 mm[Hg] Dr. Asif Haque Work Phone: 7(525)492-548742 [place] [address] 05-10-2023 13:18-0500 Heart rate 80 /min Dr. Asif Haque Work Phone: 4(892)685-421842 [place] [address] 05-10-2023 13:18-0500 Respiratory rate 16 /min Dr. Asif Haque Work Phone: [facility] 05-10-2023 13:18-0500 SaO2% (BldA) [Mass fraction] 98 % Dr. Asif Haque Work Phone: [facility] 05-10-2023 13:18-0500 Systolic blood pressure 136 mm[Hg] Dr. Asif Haque Work Phone: [facility] 03-09-2023 12:57-0400 Heart rate 61 /min Dr. Asif Haque Work Phone: [facility] 03-09-2023 12:57-0400 Respiratory rate 17 /min Dr. Asif Haque Work Phone: [facility] 11-18-2022 11:19-0400 Body weight 90.27 kg NA Swain PA-C Work Phone: [facility] 11-18-2022 11:19-0400 Diastolic blood pressure 70 mm[Hg] NA Swain PA-C Work Phone: [facility] 11-18-2022 11:19-0400 Heart rate 89 /min NA Swain PA-C Work Phone: [facility] 11-18-2022 11:19-0400 Respiratory rate 16 /min NA Swain PA-C Work Phone: [facility] 11-18-2022 11:19-0400 SaO2% (BldA) [Mass fraction] 98 % NA Swain PA-C Work Phone: [facility] 11-18-2022 11:19-0400 Systolic blood pressure 120 mm[Hg] NA Swain PA-C Work Phone: [facility] 09-21-2022 12:56-0400 Body temperature 99.19 [degF] Caroline Miller PA-C Work Phone: [facility] 09-21-2022 12:56-0400 Body weight 91.63 kg Caroline Miller PA-C Work Phone: [facility] 09-21-2022 12:56-0400 Diastolic blood pressure 82 mm[Hg] Caroline Miller PA-C Work Phone: [facility] 09-21-2022 12:56-0400 Heart rate 64 /min Caroline Miller PA-C Work Phone: [facility] 09-21-2022 12:56-0400 Respiratory rate 20 /min Caroline Miller PA-C Work Phone: [facility] 09-21-2022 12:56-0400 SaO2% (BldA) [Mass fraction] 97 % Caroline Miller PA-C Work Phone: [facility] 09-21-2022 12:56-0400 Systolic blood pressure 116 mm[Hg] Caroline Miller PA-C Work Phone: [facility] 09-20-2022 19:26-0400 Diastolic blood pressure 68 mm[Hg] Dr. Asif Haque Work Phone: [facility] 09-20-2022 19:26-0400 Heart rate 70 /min Dr. Asif Haque Work Phone: 3(465)658-090542 [place] [address] 09-20-2022 19:26-0400 Respiratory rate 18 /min Dr. Asif Haque Work Phone: [facility] 09-20-2022 19:26-0400 SaO2% (BldA) [Mass fraction] 100 % Dr. Asif Haque Work Phone: [facility] 09-20-2022 19:26-0400 Systolic blood pressure 120 mm[Hg] Dr. Asif Haque Work Phone: [facility] 09-20-2022 17:01-0400 Body height 170.[address] Asif Haque Work Phone: 7(568)508-088342 [place] [address] 09-20-2022 17:01-0400 Body mass index (BMI) [Ratio] 31.6 kg/m2 Dr. Asif Haque Work Phone: 9(633)774-825242 [place] [address] 09-20-2022 17:01-0400 Body temperature 99.7 [degF] Dr. Asif Haque Work Phone: [facility] 09-20-2022 17:01-0400 Body weight 91.[address] Asif Haque Work Phone: [facility] 07-19-2022 06:33-0400 Body temperature 101.4 [degF] Dr. Asif Haque Work Phone: [facility] 07-19-2022 06:33-0400 Diastolic blood pressure 74 mm[Hg] Dr. Asif Haque Work Phone: [facility] 07-19-2022 06:33-0400 Heart rate 110 /min Dr. Asif Haque Work Phone: [facility] 07-19-2022 06:33-0400 Respiratory rate 16 /min Dr. Asif Haque Work Phone: [facility] 07-19-2022 06:33-0400 SaO2% (BldA) [Mass fraction] 97 % Dr. Asif Haque Work Phone: [facility] 07-19-2022 06:33-0400 Systolic blood pressure 132 mm[Hg] Dr. Asif Haque Work Phone: [facility] 05-14-2022 09:58-0500 Body weight 96.62 kg NA Swain PA-C Work Phone: [facility] 05-14-2022 09:58-0500 Diastolic blood pressure 64 mm[Hg] NA Swain PA-C Work Phone: [facility] 05-14-2022 09:58-0500 Heart rate 70 /min NA Swain PA-C Work Phone: [facility] 05-14-2022 09:58-0500 Respiratory rate 16 /min NA Swain PA-C Work Phone: [facility] 05-14-2022 09:58-0500 SaO2% (BldA) [Mass fraction] 96 % NA Swain PA-C Work Phone: [facility] 05-14-2022 09:58-0500 Systolic blood pressure 120 mm[Hg] SUKHWINDER Swain PA-C Work Phone: [facility] 04-21-2022 09:25-0500 Body temperature 100.9 [degF] Nettie Haagen AVIATION SAFETY TECHNICIAN.CROZER OPERATOR Work Phone: [facility] 04-21-2022 09:25-0500 Diastolic blood pressure 82 mm[Hg] Nettie Haagen AVIATION SAFETY TECHNICIAN.CROZER OPERATOR Work Phone: [facility] 04-21-2022 09:25-0500 Heart rate 86 /min Nettie Haagen AVIATION SAFETY TECHNICIAN.CROZER OPERATOR Work Phone: [facility] 04-21-2022 09:25-0500 Respiratory rate 18 /min Nettie Haagen AVIATION SAFETY TECHNICIAN.CROZER OPERATOR Work Phone: [facility] 04-21-2022 09:25-0500 SaO2% (BldA) [Mass fraction] 96 % Nettie Haagen AVIATION SAFETY TECHNICIAN.CROZER OPERATOR Work Phone: [facility] 04-21-2022 09:25-0500 Systolic blood pressure 124 mm[Hg] Nettie Haagen AVIATION SAFETY TECHNICIAN.CROZER OPERATOR Work Phone: [facility] 03-10-2022 09:06-0400 Body temperature 98.91 [degF] Josiah Gould MD Work Phone: [facility] 03-10-2022 09:06-0400 Body weight 102.06 kg Josiah Gould MD Work Phone: [facility] 03-10-2022 09:06-0400 Diastolic blood pressure 80 mm[Hg] Josiah Gould MD Work Phone: [facility] 03-10-2022 09:06-0400 Heart rate 93 /min Josiah Gould MD Work Phone: [facility] 03-10-2022 09:06-0400 Respiratory rate 18 /min Josiah Gould MD Work Phone: [facility] 03-10-2022 09:06-0400 SaO2% (BldA) [Mass fraction] 98 % Josiah Gould MD Work Phone: [facility] 03-10-2022 09:06-0400 Systolic blood pressure 118 mm[Hg] Josiah Gould MD Work Phone: [facility] 02-11-2022 11:55-0400 Body weight 107.5 kg NA Swain PA-C Work Phone: [facility] 02-11-2022 11:55-0400 Diastolic blood pressure 76 mm[Hg] NA Swain PA-C Work Phone: [facility] 02-11-2022 11:55-0400 Heart rate 81 /min NA Swain PA-C Work Phone: [facility] 02-11-2022 11:55-0400 Respiratory rate 16 /min NA Swain PA-C Work Phone: [facility] 02-11-2022 11:55-0400 SaO2% (BldA) [Mass fraction] 98 % NA Swain PA-C Work Phone: [facility] 02-11-2022 11:55-0400 Systolic blood pressure 120 mm[Hg] NA Swain PA-C Work Phone: [facility] 11-10-2021 08:11-0400 Body weight 122.02 kg NA Swain PA-C Work Phone: [facility] 11-10-2021 08:11-0400 Diastolic blood pressure 72 mm[Hg] NA Swain PA-C Work Phone: [facility] 11-10-2021 08:11-0400 Heart rate 74 /min NA Swain PA-C Work Phone: [facility] 11-10-2021 08:11-0400 SaO2% (BldA) [Mass fraction] 99 % NA Swain PA-C Work Phone: [facility] 11-10-2021 08:11-0400 Systolic blood pressure 114 mm[Hg] NA Swain PA-C Work Phone: [facility] 09-28-2021 16:01-0400 Body height 167.6 cm Scooby Pollock MD Work Phone: [facility] 09-28-2021 16:01-0400 Body weight 129.82 kg Scooby Pollock MD Work Phone: [facility] 08-12-2021 10:58-0400 Body height 167.6 cm Fellow Main Work Phone: [facility] 08-12-2021 10:58-0400 Body weight 140.62 kg Fellow Main Work Phone: [facility] 08-11-2021 12:51-0400 Body height 167.[address] Work Phone: [facility] 08-11-2021 12:51-0400 Body weight 140.[address] Work Phone: [facility] 03-02-2017 08:53-0400 BMI (Body Mass Index) 47.98 kg/m2 [facility] 03-02-2017 08:53-0400 Body Temperature 97.5 [degF] Julissa [facility] 03-02-2017 08:53-0400 BP Diastolic 70 mm[Hg] [facility] 03-02-2017 08:53-0400 BP Systolic 111 mm[Hg] [facility] 03-02-2017 08:53-0400 Pulse (Heart Rate) 80 /min [facility] 03-02-2017 08:53-0400 Respiratory Rate 16 /min [facility] 03-02-2017 08:53-0400 Weight 138.98 kg [facility] 12-15-2016 11:14-0400 Height 170.18 cm [facility] Encounters Encounter Date Encounter Type Care Provider [...] General Surgery Start: 11-05-2024 End: 11-05-2024 ambulatory TSEF LUIS Facility:[facility] Start: 10-28-2024 End: 10-29-2024 ambulatory Manuela Isbell MD Work Phone: Endocrinology Comment on above: Struggling with my b lood sugars Start: 09-21-2024 End: 09-21-2024 Patient encounter procedure Charles CALLES [facility] Work Phone: Start: 09-21-2024 End: 09-21-[address] Asif Haque MD Work Phone: [facility] Work Phone: Start: 08-21-2024 End: 09-19-2024 ambulatory Manuela Isbell MD Work Phone: Endocrinology Comment on above: Medicine question Start: 08-10-2024 End: 10-10-2024 Follow-up encounter Manuela Isbell MD Work Phone: Endocrinology Start: 08-09-2024 End: 08-09-2024 ambulatory MANUELA ISBELL Facility:[facility] Start: 08-09-2024 End: 08-09-2024 Patient encounter procedure [...] Start: 07-13-2024 End: 07-13-2024 ambulatory STEF DIMANDRAE Facility:[facility] Start: 07-13-2024 End: 07-13-2024 Telemedicine consultation with patient Stef Densonandrae CHERY Work Phone: General Surgery Start: 07-13-2024 End: 07-13-2024 ambulatory MANUELA ISBELL Facility:[facility] Start: 07-09-2024 End: 07-09-2024 Follow-up encounter Manuela Isbell MD Work Phone: General Surgery Comment on above: Hypoglycemia after G I (gastrointestinal) surgery (Primary Dx) Start: 07-09-2024 End: 07-09-2024 Telephone encounter Manuela Isbell MD Work Phone: Endocrinology Comment on above: Appointment (Called patient and left voicemail to notify of scheduled appointment) Start: 07-06-2024 End: 07-06-2024 ambulatory ASIF HAQUE Facility:[facility] Start: 07-04-2024 End: 07-04-2024 Admission to same day surgery center Manuela Isbell MD Work Phone: General Surgery Comment on above: Hypoglycemia after G I (gastrointestinal) surgery (Primary Dx) Start: 07-04-2024 End: 07-04-2024 ambulatory MANUELA ISBELL Facility:[facility] Start: 07-04-2024 End: 07-04-2024 Telemedicine consultation with patient Manuela Isbell MD Work Phone: General Surgery Start: 05-30-2024 End: 05-30-[address] Felice Centeno MD [facility] Work Phone: Start: 05-29-2024 End: 05-29-2024 Admission to same day surgery center Ping Ansari APRN.CNP Work Phone: General Surgery BMI Comment on above: S/P gastric bypass ( Primary Dx) Start: 05-29-2024 End: 05-29-2024 Telemedicine consultation with patient Ping Danyell Ansari APRN.CROZER OPERATOR Work Phone: General Surgery BMI Start: 05-29-2024 End: 05-30-2024 ambulatory [facility] Facility:[facility] Start: 05-21-2024 Encounter for gynecological examination (general) (routine) with abnormal findings Julissa Connell [facility] Start: 05-21-2024 End: 05-21-2024 ambulatory Julissa Connell Facility:[facility] Start: 05-21-2024 End: 05-21-2024 ambulatory Julissalacey Cunninghamchataignier Facility:[facility] Start: 04-16-2024 End: 04-16-2024 ambulatory [facility] Facility:[facility] Start: 04-09-2024 End: 04-09-2024 Admission to same day surgery center Stef Luis RD Work Phone: General Surgery Comment on above: Class 1 obesity (Keyana nagi Dx); Dietary counseling and surveillance; S/P gastric bypass; Impaired intestinal absorption Start: 04-09-2024 End: 04-09-2024 ambulatory STEF LUIS Facility:[facility] Start: 04-09-2024 End: 04-09-2024 Telemedicine consultation with patient Stef Densonandrae CHERY Work Phone: General Surgery Start: 03-14-2024 End: 03-14-2024 [facility] Facility:[facility] Start: 03-08-2024 End: 03-08-2024 ambulatory [facility] Facility[facility] Start: 03-06-2024 End: 03-06-2024 ambulatory [facility] Facility:[facility] Start: 03-06-2024 End: 03-06-2024 Patient encounter procedure Crista Carmichael APRN.CROZER OPERATOR Work Phone: [facility] Comment on above: Bacterial sinusitis (Primary Dx) Start: 02-21-2024 End: 02-21-2024 ambulatory Herminio CALLES Facility:[facility] Start: 02-20-2024 End: 02-20-2024 Admission to same day surgery center Ping Prince APRN.CROZER OPERATOR Work Phone: General Surgery Comment on above: Class 1 obesity (Keyana nagi Dx) Start: 02-20-2024 End: 02-20-2024 ambulatory PING ANSARI Facility:[facility] Start: 02-20-2024 End: 02-20-2024 Telemedicine consultation with patient Ping Prince CROZER OPERATOR Work Phone: General Surgery Start: 02-14-2024 End: 02-14-2024 ambulatory JESSICA BAUTISTAORY LESLYE Facility:[facility] Start: 02-14-2024 End: 02-14-2024 Patient encounter procedure Donita Green MD Work Phone: Endocrinology Comment on above: Collin's thyroidi tis (Primary Dx); Thyroid nodule Start: 01-20-2024 End: 01-20-2024 ambulatory JESSICA SWAIN Facility:[facility] Start: 01-12-2024 End: 01-12-2024 Orders Only Ping Prince MARYJANE.CROZER OPERATOR Work Phone: General Surgery BMI Comment on above: S/P gastric bypass ( Primary Dx) Start: 01-06-2024 End: 01-06-2024 Admission to same day surgery center Stef Luis RD Work Phone: General Surgery Comment on above: Class 1 obesity (Keyana nagi Dx); Dietary counseling and surveillance; S/P gastric bypass; Impaired intestinal absorption Start: 01-06-2024 End: 01-06-2024 ambulatory JESSICA SWAIN Facility:[facility] Start: 01-06-2024 End: 01-06-2024 Telemedicine consultation with patient Stef Luis RD Work Phone: General Surgery Start: 12-19-2023 End: 12-19-2023 ambulatory JESSICA SWAIN Facility:[facility] Start: 12-19-2023 End: 12-19-2023 Subsequent hospital visit by physician [facility] Work Phone: Radiology Comment on above: Thyroid nodule [E04. 1] Start: 11-21-2023 End: 11-21-2023 Office outpatient visit 25 minutes Kiera Carson APRN.CROZER OPERATOR Work Phone: [facility] Comment on above: Tinea cruris (Primar y Dx); Migraine with aura, not intractable, without status migrainosus; Gastroesophageal reflux disease without esophagitis; Other chronic pain Start: 11-21-2023 End: 11-21-2023 ambulatory JESSICA SWAIN Facility:[facility] Start: 10-20-2023 End: 10-20-2023 Admission to same day surgery center Ping Suresh WESLEY.CROZER OPERATOR Work Phone: General Surgery BMI Comment on above: Class 1 obesity (Keyana nagi Dx) Start: 10-20-2023 End: 10-20-2023 Telemedicine consultation with patient Ping Prince MARYJANE.CROZER OPERATOR Work Phone: General Surgery BMI Start: 10-07-2023 [...] Start: 07-14-2023 End: 07-14-2023 ambulatory Ping Suresh WESLEY.CROZER OPERATOR Work Phone: General Surgery BMI Comment on above: S/P gastric bypass ( Primary Dx); Collin's thyroiditis Start: 07-14-2023 End: 07-14-2023 Telemedicine consultation with patient Ping Prince MARYJANE.CROZER OPERATOR Work Phone: [facility] Start: 07-07-2023 End: 07-07-[address] Work Phone: General Surgery Comment on above: Class 3 obesity (HCC ) (Primary Dx); Dietary counseling and surveillance; S/P gastric bypass Start: 07-07-2023 End: 07-07-2023 Telemedicine consultation with patient Stef Luis MIRI Work Phone: [facility] Start: 06-21-2023 End: 06-21-[address] Asif aHque Work Phone: [facility] Work Phone: Start: 06-21-2023 End: 06-21-[address] Asif Haque Work Phone: [facility] Work Phone: Start: 05-13-2023 End: 05-13-[address] Asif Haque Work Phone: [facility] Work Phone: Start: 05-10-2023 End: 05-10-[address] Asif Haque Work Phone: [facility] Endocrinology Work Phone: Start: 03-09-2023 End: 03-09-[address] Asif Haque Work Phone: [facility] Work Phone: Start: 03-09-2023 End: 03-09-[address] Asif Haque Work Phone: [facility] Work Phone: Start: 02-04-2023 Telephone encounter Phyllis rogers MD Work Phone: General Surgery Comment on above: Returning Patient's Call Start: 12-23-2022 Telephone encounter Debra Swain PA-C Work Phone: [facility] Start: 11-22-2022 End: 11-22-2022 Subsequent hospital visit by physician [facility] Work Phone: Radiology Comment on above: Thyromegaly [E01.0] Start: 11-18-2022 End: 11-18-2022 Patient encounter procedure Debra CALLES-C Work Phone: [facility] [place] Comment on above: Panic disorder (Prim swathi Dx); Thyromegaly; Morbid obesity (HCC); Gastroesophageal reflux disease, unspecified whether esophagitis present Start: 09-21-2022 End: 09-21-2022 Subsequent hospital visit by physician Xr [facility] Work Phone: Radiology Comment on above: Right flank pain [R1 0.9] Start: 09-21-2022 End: 09-21-2022 Patient encounter procedure Caroline CALLES-C Work Phone: [facility] Comment on above: RUQ pain (Primary Dx ); Right flank pain; Nausea; Epigastric pain; Acute constipation Start: 09-20-2022 End: 09-20-2022 Emergency department patient visit Dr. Asif Haque Work Phone: [facility] Start: 07-19-2022 End: 07-19-[address] Asif Haque Work Phone: [facility] Start: 06-06-2022 ambulatory Debra CALLES-[employer] Work Phone: [facility] Comment on above: Groin cyst flair Start: 05-14-2022 End: 05-14-2022 Patient encounter procedure Debra PADRONC Work Phone: [facility] [place] Comment on above: S/P bariatric surger y (Primary Dx); Hair loss; Cystic acne; Influenza A; Loss of libido; Prediabetes; Screening for lipid disorders Start: 04-22-2022 ambulatory Debra CALLES-[employer] [facility] Comment on above: vertigo Start: 04-22-2022 Telephone encounter Debra CALLES-C Work Phone: [facility] [place] Comment on above: Results Start: 04-21-2022 End: 04-21-2022 Office outpatient visit 15 minutes Nettie Canales APRN.CNP Work Phone: [facility] [place] Comment on above: Upper respiratory sy mptom (Primary Dx) Start: 03-10-2022 End: 03-10-2022 Patient encounter procedure Josiah Gould MD Work Phone: [facility] Comment on above: Acute non-recurrent [...] with patient Asia Wadsworthon PhD Work Phone: [facility] Start: 11-14-2021 Telephone encounter Debra Swain PA-C [...] with patient Scooby Pollock MD Work Phone: [facility] Start: 08-12-2021 End: 08-12-2021 ambulatory Fellow Colton Main Work Phone: General Surgery Comment on above: Body mass index 50.0 -59.9, adult (HCC) (Primary Dx); S/P gastric bypass Start: 08-12-2021 End: 08-12-2021 Telemedicine consultation with patient Fellow Colton Main Work Phone: [facility] Start: 08-11-2021 End: 08-11-[address] Work Phone: General Surgery Comment on above: Reassessment; Patien t Education Start: 07-17-2018 Patient encounter procedure CARLOS TURNER Start: 06-15-2018 End: 06-15-2018 Patient encounter procedure JULISSA CONNELL Start: 05-22-2018 Patient encounter Kenneth Ortiz [facility] Start: 04-17-2018 Patient encounter Kenneth Ortiz [facility] Start: 04-13-2018 End: 04-13-2018 Patient encounter procedure OWEN Lucia BISHNU Start: 03-20-2018 Patient encounter Kenneth Ortiz [facility] Start: 03-13-2018 Patient encounter procedure CARLOS TURNER Start: 02-13-2018 Patient encounter Kenneth Ortiz [facility] Start: 01-31-2018 Patient encounter procedure LARRY Grace RAMAN Start: 01-19-2018 End: 01-19-2018 Patient encounter procedure CELESTE PISANO Start: 01-16-2018 Patient encounter Kenneth Ortiz [facility] Start: 12-27-2017 Patient encounter Masood Stock [facility] Start: 12-23-2017 Patient encounter Ranjit Wade [facility] Start: 12-19-2017 Patient encounter Sweetie Lisa [facility] Start: 12-16-2017 Patient encounter Ranjit Wade [facility] Start: 12-12-2017 Patient encounter Kenneth Ortiz [facility] Start: 11-14-2017 Patient encounter Ranjit Wade [facility] Start: 10-13-2017 Patient encounter Masood Stock [facility] Start: 10-13-2017 Patient encounter Masood Stock [facility] Start: 08-11-2017 End: 08-11-2017 Emergency department [...] Urine MOHAN Culture - Identificatn Laura Martino [employer]PORT PL[employer]NER Work Phone: Start: 12-29-2016 End: 02-15-2017 Us preg uterus after 1st trimest 1/ gestation Laura Martino [employer]PORT PL[employer]NER Work Phone: Start: 12-21-2016 End: 12-22-2016 Chiropractic manipulative tx spinal 1-2 regions Juana Palafox DC Work Phone: Plan of Treatment Date Care Activity Detail Author Start: 05-06-2025 HPV TESTING HPV TESTING [facility] Start: 05-06-2025 PAP TESTING PAP TESTING [facility] Start: 05-06-2025 Screening for malign ant neoplasm of cervix [facility] Start: 01-14-2025 End: 01-14-2025 Patient encounter procedure 01/14/2025 9:20 AM EDT Office Visit Endocrinology [address] [place], [place] [id number] Donita Green MD [address] [place] [address] 11 month f/u- Thyroid US review Endocrinology Comment on above: 11 month f/u- Thyroi d US review Start: 01-07-2025 Influenza vaccination Influenz a Vaccine (Season Ended) [facility] Start: 12-31-2024 End: 12-31-2024 Follow-up encounter 12/31/2024 9:30 AM EDT [facility] General Surgery [address] [place], [place] [id number] Stef Luis [address] [place], [place] [id number] follow up post op hypoglycemia General Surgery Comment on above: follow up post op hy poglycemia Start: 12-24-2024 End: 12-24-2024 Patient encounter procedure 12/24/2024 1:00 PM EDT Appointment Radiology [address] [place], [place] [id number] Thyroid nodule [E04.1] Radiology Comment on above: Thyroid nodule [E04. 1] Start: 12-20-2024 End: 12-20-2024 Patient encounter procedure 12/20/2024 11:20 AM EDT Office Visit Endocrinology [address] [place] [address] Manuela Isbell MD [address] [place], [place] [id number] 3 month f/u Endocrinology Comment on above: 3 month f/u Start: 12-18-2024 End: 03-19-2025 Thyrotropin [Units/volume] in Serum or Plasma THYROID STIMULATING HORMONE Lab Routine Thyroid nodule Expected: 12/18/2024, Expires: 03/19/2025 [facility] Comment on above: Expected: 12/18/2024 , Expires: 03/19/2025 Start: 12-18-2024 End: 03-15-2025 US Thyroid gland US THYROID/PARATHYROID Radiology Routine Thyroid nodule Expected: 12/18/2024, Expires: 03/15/2025 [facility] Work Phone: Comment on above: Expected: 12/18/2024 , Expires: 03/15/2025 Start: 11-05-2024 End: 11-05-2024 Follow-up encounter 11/05/2024 9:30 AM EDT [facility] [address] [id number] Stef Luis, MIRI [address] [place] [address] follow up post op aom/hypoglycemia General Surgery Comment on above: follow up post op ao m/hypoglycemia Start: 10-12-2024 End: 10-12-2024 Follow-up encounter 10/12/2024 1:30 PM EDT [facility] [address] [place] [address] [place] [address] follow up post op aom/hypoglycemia General Surgery Comment on above: follow up post op ao m/hypoglycemia Start: 08-09-2024 End: 08-09-2024 Patient encounter procedure 08/09/2024 10:00 AM EDT Office Visit Endocrinology [address] [place] [address] Manuela Isbell MD [address] [place] [address] please schedule this patient to be seen in my x building clinic in about a month from now? Endocrinology Comment on above: please schedule this patient to be seen in my x building clinic in about a month from now? Start: 07-13-2024 End: 07-13-2024 Follow-up encounter 07/13/2024 1:30 PM [facility] General Surgery [address] [place] [address] Stef Luis, RD [address] [id number] follow up post op [facility] General Surgery Comment on above: follow up post op ao m Start: 07-09-2024 End: 10-08-2024 B-HYDROXYBUTYRATE B-HYDROXYBUTYRATE Lab Routine Hypoglycemia after GI (gastrointestinal) surgery Expected: 07/09/2024, Expires: 10/08/2024 [facility] Work Phone: Comment on above: Expected: 07/09/2024 , Expires: 10/08/2024 Start: 07-09-2024 End: 10-08-2024 C peptide [Mass/volume] in Serum or Plasma C-PEPTIDE BLD Lab Routine Hypoglycemia after GI (gastrointestinal) surgery Expected: 07/09/2024, Expires: 10/08/2024 [facility] Comment on above: Expected: 07/09/2024 , Expires: 10/08/2024 Start: 07-09-2024 End: 10-08-2024 Fasting glucose [Mass/volume] in Serum or Plasma GLUCOSE, FASTING Lab Routine Hypoglycemia after GI (gastrointestinal) surgery Expected: 07/09/2024, Expires: 10/08/2024 [facility] Comment on above: Expected: 07/09/2024 , Expires: 10/08/2024 Start: 07-09-2024 End: 10-08-2024 Insulin [Units/volume] in Serum or Plasma INSULIN, TOTAL, SERUM Lab Routine Hypoglycemia after GI (gastrointestinal) surgery Expected: 07/09/2024, Expires: 10/08/2024 [facility] Comment on above: Expected: 07/09/2024 , Expires: 10/08/2024 Start: 07-09-2024 End: 07-09-2024 Follow-up encounter 07/09/2024 1:00 PM EST [facility] [address] [place] [address] [place] [address] follow up post op aom General Surgery Comment on above: follow up post op ao m Start: 07-06-2024 End: 07-06-2024 ambulatory 07/06/2024 7:00 AM EST Results Only [place] [facility] Laboratory [address] [place] [address] [facility] Start: 07-04-2024 End: 07-04-2024 Admission to same day surgery center 07/04/2024 3:15 PM EST [facility] [address] [place] [address] Manuela Isbell MD [address] [place] [address] reactive hypoglycemia General Surgery Comment on above: reactive hypoglycemi a Start: 07-04-2024 End: 10-03-2024 B-HYDROXYBUTYRATE B-HYDROXYBUTYRATE Lab Routine Hypoglycemia after GI (gastrointestinal) surgery Expected: 07/04/2024, Expires: 10/03/2024 [facility] Comment on above: Expected: 07/04/2024 , Expires: 10/03/2024 Start: 07-04-2024 End: 10-03-2024 C peptide [Mass/volume] in Serum or Plasma C-PEPTIDE BLD Lab Routine Hypoglycemia after GI (gastrointestinal) surgery Expected: 07/04/2024, Expires: 10/03/2024 [facility] Comment on above: Expected: 07/04/2024 , Expires: 10/03/2024 Start: 07-04-2024 End: 10-03-2024 Insulin [Units/volume] in Serum or Plasma INSULIN, TOTAL, SERUM Lab Routine Hypoglycemia after GI (gastrointestinal) surgery Expected: 07/04/2024, Expires: 10/03/2024 [facility] Work Phone: Comment on above: Expected: 07/04/2024 , Expires: 10/03/2024 Start: 03-30-2024 End: 03-30-2024 Follow-up encounter 03/30/2024 3:00 PM EST [facility] [address] [place] [address] [place] [address] follow up post op aom General Surgery Comment on above: follow up post op ao m Start: 03-23-2024 End: 03-23-2024 Follow-up encounter 03/23/2024 3:00 PM EST [facility] [address] [place] [address] Stef Luis, MIRI [address] [place] [address] follow up post op aom General Surgery Comment on above: follow up post op ao m Start: 02-20-2024 End: 02-20-2024 Admission to same day surgery center 02/20/2024 7:00 AM EDT [facility] [address] [place] [address] Ping Prince APRN.CROZER OPERATOR [address] [place] [address] weight mangement General Surgery Comment on above: weight mangement Start: 02-14-2024 End: 02-14-2024 Patient encounter procedure 02/14/2024 9:20 AM EDT Office Visit Endocrinology [address] [place] [address] Donita Green MD [address] [place] [address] 6 MTH F/U Endocrinology Comment on above: 6 MTH F/U Start: 01-12-2024 End: 04-12-2024 25-hydroxyvitamin D3 [Mass/volume] in Serum or Plasma VITAMIN D 25 HYDROXY Lab Routine S/P gastric bypass Expected: 01/12/2024, Expires: 04/12/2024 [facility] Comment on above: Expected: 01/12/2024 , Expires: 04/12/2024 Start: 01-12-2024 End: 04-12-2024 CBC W Auto Differential panel - Blood COMPLETE BLOOD COUNT AND DIFFERENTIAL Lab Routine S/P gastric bypass Expected: 01/12/2024, Expires: 04/12/2024 [facility] Work Phone: Comment on above: Expected: 01/12/2024 , Expires: 04/12/2024 Start: 01-12-2024 End: 04-12-2024 Cobalamin (Vitamin B12) [Mass/volume] in Serum or Plasma VITAMIN B12 Lab Routine S/P gastric bypass Expected: 01/12/2024, Expires: 04/12/2024 [facility] Comment on above: Expected: 01/12/2024 , Expires: 04/12/2024 Start: 01-12-2024 End: 04-12-2024 Comprehensive metabolic 2000 panel - Serum or Plasma COMPREHENSIVE METABOLIC PANEL Lab Routine S/P gastric bypass Expected: 01/12/2024, Expires: 04/12/2024 [facility] Comment on above: Expected: 01/12/2024 , Expires: 04/12/2024 Start: 01-12-2024 End: 04-12-2024 Ferritin [Mass/volume] in Serum or Plasma FERRITIN Lab Routine S/P gastric bypass Expected: 01/12/2024, Expires: 04/12/2024 [facility] Comment on above: Expected: 01/12/2024 , Expires: 04/12/2024 Start: 01-12-2024 End: 04-12-2024 Folate [Mass/volume] in Serum or Plasma FOLATE, SERUM Lab Routine S/P gastric bypass Expected: 01/12/2024, Expires: 04/12/2024 [facility] Comment on above: Expected: 01/12/2024 , Expires: 04/12/2024 Start: 01-12-2024 End: 04-12-2024 Hemoglobin A1c in Blood HEMOGLOBIN A1C Lab Routine S/P gastric bypass Expected: 01/12/2024, Expires: 04/12/2024 [facility] Comment on above: Expected: 01/12/2024 , Expires: 04/12/2024 Start: 01-12-2024 End: 04-12-2024 Iron and Iron binding capacity panel - Serum or Plasma IRON AND TIBC Lab Routine S/P gastric bypass Expected: 01/12/2024, Expires: 04/12/2024 [facility] Comment on above: Expected: 01/12/2024 , Expires: 04/12/2024 Start: 01-12-2024 End: 04-12-2024 Lipid 1996 panel - Serum or Plasma LIPID PANEL BASIC Lab Routine S/P gastric bypass Expected: 01/12/2024, Expires: 04/12/2024 [facility] Comment on above: Expected: 01/12/2024 , Expires: 04/12/2024 Start: 01-12-2024 End: 04-12-2024 Thyrotropin [Units/volume] in Serum or Plasma THYROID STIMULATING HORMONE Lab Routine S/P gastric bypass Expected: 01/12/2024, Expires: 04/12/2024 [facility] Comment on above: Expected: 01/12/2024 , Expires: 04/12/2024 Start: 01-12-2024 End: 04-12-2024 VITAMIN B1 (THIAMINE), WHOLE BLOOD VITAMIN B1 (THIAMINE), WHOLE BLOOD Lab Routine S/P gastric bypass Expected: 01/12/2024, Expires: 04/12/2024 [facility] Comment on above: Expected: 01/12/2024 , Expires: 04/12/2024 Start: 01-08-2024 Covid-19 Vaccine ( season) Covid-19 Vaccine ( season) [facility] Start: 01-08-2024 Covid-19 Vaccine ( season) Covid-19 Vaccine ( season) [facility] Start: 01-08-2024 Influenza vaccination C [facility] Start: 01-06-2024 End: 01-06-2024 Admission to same day surgery center 01/06/2024 3:00 PM EDT [facility] [address] [place] [address] Stef Luis, RD [address] [place] [address] post op rygb aom General Surgery Comment on above: post op rygb aom Start: 12-19-2023 End: 12-19-2023 Patient encounter procedure 12/19/2023 9:15 AM EDT Appointment Radiology [address] [place] [address] THYROID ULTRASOUND Radiology Comment on above: THYROID ULTRASOUND Start: 11-21-2023 End: 11-21-2023 Patient encounter procedure 11/21/2023 9:00 AM EDT Office Visit Family Medicine [facility] [address] [place] [address] Debra Swain PA-C [address] [place] [address] annual exam [facility] Comment on above: annual exam Start: 10-20-2023 End: 10-20-2023 Follow-up encounter 10/20/2023 11:30 AM EDT [facility] General Surgery BMI [address] [place] [address] Ping Prince, AVIATION SAFETY TECHNICIAN.CROZER OPERATOR [address] [place] [address] 3 month follow up per bul General Surgery BMI Comment on above: 3 month follow up pe r bulow Start: 09-24-2023 COVID-19 VACCINE (#1) COVID-19 VACCI NE (#1) [facility] Comment on above: Postponed from 10/22 (Current Illness) Start: 09-24-2023 HEPATITIS B (1 of 3 - 3-dose series) HEPATITIS B (1 of 3 - 3-dose series) [facility] Comment on above: Postponed from 04/23 (Current Illness) Start: 09-24-2023 Hepatitis B Vaccine (1 of 3 - 19+ 3-dose series) Hepatitis B Vaccine (1 of 3 - 19+ 3-dose series) [facility] Comment on above: Postponed from 04/23 (Current Illness) Start: 09-24-2023 Hepatitis B Vaccine (1 of 3 - 3-dose series) Hepatitis B Vaccine (1 of 3 - 3-dose series) [facility] Comment on above: Postponed from 04/23 (Current Illness) Start: 09-24-2023 Urine microalbumin profile [facility] Comment on above: Postponed from 12/07 (Current Illness) Start: 06-21-2023 Zinc [Mass/volume] i n Serum or Plasma [facility] Start: 05-09-2023 Behavioral Health Screening Behavioral Health Screening [facility] Start: 05-09-20[address] [facility] Start: 05-08-2023 [facility]PRESSION [facility]MENT [facility] Comment on above: Postponed from 05/09 (Declined at this time) Start: 01-07-2023 Covid-19 Vaccine () Covid-19 Vaccine () [facility] Start: 01-07-2023 Influenza vaccination C [facility] Start: 12-02-2022 Adult depression screening assessment DEPRESSION SCREENING [facility] Start: 11-18-2022 End: 01-18-2023 Thyrotropin [Units/volume] in Serum or Plasma [facility] Work Phone: Comment on above: Expected: 11/18/2022 , Expires: 01/18/2023 Start: 09-21-2022 End: 11-21-2022 Amylase [Enzymatic activity/volume] in Serum or Plasma [facility] Work Phone: Comment on above: Expected: 09/21/2022 , Expires: 11/21/2022 Start: 09-21-2022 End: 11-21-2022 Comprehensive metabolic 2000 panel - Serum or Plasma [facility] Work Phone: Comment on above: Expected: 09/21/2022 , Expires: 11/21/2022 Start: 09-21-2022 End: 11-21-2022 Lipase [Enzymatic activity/volume] in Serum or Plasma [facility] Work Phone: Comment on above: Expected: 09/21/2022 , Expires: 11/21/2022 Start: 09-20-2022 [facility] Start: 07-26-2022 Adult depression screening assessment DEPRESSION SCREENING [facility] Start: 01-01-2023 DEPRESSION ASSESSMENT DEPRESSION ASS ESSMENT [facility] Start: 03-10-2022 End: 03-24-2022 SARS-CoV-2 (COVID-19) RNA [Presence] in Respiratory specimen by JATIN with probe detection 2019 CORONAVIRUS Microbiology Routine Acute non-recurrent sinusitis, unspecified location Expected: 03/10/2022, Expires: 03/24/2022 [facility] Work Phone: Comment on above: Expected: 03/10/2022 , Expires: 03/24/2022 Start: 02-14-2022 End: 04-16-2022 Ferritin [Mass/volume] in Serum or Plasma FERRITIN BLD Lab Routine Iron deficiency anemia, unspecified iron deficiency anemia type S/P bariatric surgery Expected: 02/14/2022, Expires: 04/16/2022 [facility] Work Phone: Comment on above: Expected: 02/14/2022 , Expires: 04/16/2022 Start: 02-14-2022 End: 04-16-2022 Folate [Mass/volume] in Serum or Plasma FOLATE SERUM Lab Routine Folic acid deficiency S/P bariatric surgery Expected: 02/14/2022, Expires: 04/16/2022 [facility] Work Phone: Comment on above: Expected: 02/14/2022 , Expires: 04/16/2022 Start: 01-07-2022 Influenza vaccination C [facility] Start: 11-14-2021 End: 01-14-2022 Iron and Iron binding capacity panel - Serum or Plasma IRON + TIBC Lab Routine Iron deficiency anemia, unspecified iron deficiency anemia type S/P bariatric surgery Expected: 11/14/2021, Expires: 01/14/2022 [facility] Work Phone: Comment on above: Expected: 11/14/2021 , Expires: 01/14/2022 Start: 11-10-2021 End: 01-10-2022 Basic metabolic 2000 panel - Serum or Plasma [facility] Work Phone: Comment on above: Expected: 11/10/2021 , Expires: 01/10/2022 Start: 11-10-2021 End: 01-10-2022 CBC W Auto Differential panel - Blood [facility] Work Phone: Comment on above: Expected: 11/10/2021 , Expires: 01/10/2022 Start: 11-10-2021 End: 01-10-2022 Cobalamin (Vitamin B12) [Mass/volume] in Serum or Plasma [facility] Work Phone: Comment on above: Expected: 11/10/2021 , Expires: 01/10/2022 Start: 11-10-2021 End: 01-10-2022 Ferritin [Mass/volume] in Serum or Plasma [facility] Work Phone: Comment on above: Expected: 11/10/2021 , Expires: 01/10/2022 Start: 11-10-2021 End: 01-10-2022 Folate [Mass/volume] in Serum or Plasma [facility] Work Phone: Comment on above: Expected: 11/10/2021 , Expires: 01/10/2022 Start: 11-10-2021 End: 01-10-2022 Iron and Iron binding capacity panel - Serum or Plasma [facility] Work Phone: Comment on above: Expected: 11/10/2021 , Expires: 01/10/2022 Start: 11-10-2021 End: 01-10-2022 Magnesium [Mass/volume] in Serum or Plasma [facility] Work Phone: Comment on above: Expected: 11/10/2021 , Expires: 01/10/2022 Start: 11-10-2021 End: 01-10-2022 Thyrotropin [Units/volume] in Serum or Plasma [facility] Work Phone: Comment on above: Expected: 11/10/2021 , Expires: 01/10/2022 Start: 05-09-2021 DEPRESSION ASSESSMENT DEPRESSION ASS ESSMENT [facility] Start: 04-18-2017 End: 04-18-2017 Appointment Appointment [facility] Work Phone: Start: 03-11-2017 End: 03-11-2017 Appointment [facility]ointment [facility] Start: 02-10-2017 End: 02-10-2017 *CUUID - Urine MOHAN Culture - Identificatn *CUUID - Urine MOHAN Culture - Identificatn [facility] Start: 02-10-2017 End: 02-10-2017 Streptococcus agalactiae DNA [Presence] in Unspecified specimen by JATIN with probe detection *GBSD - Group B Strep, DNA by PCR [facility] Start: 02-10-2017 End: 02-10-2017 Us preg uterus after 1st trimest /1st gestation US OB, >14 weeks [facility] Start: 01-12-2017 End: 02-15-2017 *CUUID - Urine MOHAN Culture - Identificatn *CUUID - Urine MOHAN Culture - Identificatn [facility] Start: 12-29-2016 End: 12-29-2016 *CUUID - Urine MOHAN Culture - Identificatn *CUUID - Urine MOHAN Culture - Identificatn [facility] Start: 12-29-2016 End: 02-15-2017 Us preg uterus after 1st trimest /1st gestation OB, >14 weeks [facility] Start: 12-21-2016 End: 12-22-2016 Physical Therapy General [facility] Therapy [facility], [address] [place] [address], [address] [facility] Start: 12-15-2016 End: 12-17-2016 Chiropractor Referral Chiropractor Referral [facility] Start: 2008 Hepatitis B Vaccine (1 of 3 - 19+ 3-dose series) Hepatitis B Vaccine (1 of 3 - 19+ 3-dose series) [facility] Start: 2007 Depression Screening Depression Scre ening [facility] Start: 12-07-2005 Urine microalbumin profile [facility] Start: 1995 PNEUMOCOCCAL (1 - PCV) PNEUMOCOCCAL (1 - PCV) [facility] Start: 1994 COVID-19 VACCINE (#1) COVID-19 VACCI NE (#1) [facility] Start: 1994 COVID-19 VACCINE (1) COVID-19 VACCIN E (1) [facility] Start: 1989 COVID-19 VACCINE (#1) COVID-19 VACCI NE (#1) [facility] Start: 1989 HEPATITIS B (1 of 3 - 3-dose series) HEPATITIS B (1 of 3 - 3-dose series) [facility] Bacteria identified in Urine by Culture Urine Culture [facility] Hemoglobin A1c/Hemoglobin.total in Blood HEMOGLOBIN A1C (POC) Lab Routine Class 2 severe obesity with serious comorbidity and body mass index (BMI) of 35.0 to 35.9 in adult, unspecified obesity type (HCC) Ordered: 08/09/2024 [facility] Work Phone: Comment on above: Ordered: 08/09/2024 Influenza virus A an d B RNA and SARS-CoV-2 (COVID-19) N gene panel - Respiratory specimen by JATIN with probe detection COVID WITH FLUA+B, ROUTINE Microbiology Routine Upper respiratory symptom Ordered: 04/21/2022 [facility] Work Phone: Comment on above: Ordered: 04/21/2022 Patient Education ED Abdominal P ain Unkn Cause Fem [facility] Work Phone: Patient referral [facility] Work Phone: End: 10-21-2023 US ABD RIGHT UPPER QUADRANT US ABD RIGHT UPPER QUADRANT Radiology Routine Right flank pain 1 Occurrences starting 09/21/2022 until 10/21/2023 [facility] Work Phone: Comment on above: 1 Occurrences starti ng 09/21/2022 until 10/21/2023 End: 12-18-2023 Us soft tissue head & neck real time imge docm US THYROID/PARATHYROID Radiology Routine Thyromegaly 1 Occurrences starting 11/18/2022 until 12/18/2023 [facility] Work Phone: Comment on above: 1 Occurrences starti ng 11/18/2022 until 12/18/2023 US Thyroid gland [facility] End: 09-13-2024 US Thyroid gland US THYROID/PARATHYROID Radiology Routine Thyroid nodule 1 Occurrences starting 08/15/2023 until 09/13/2024 [facility] Work Phone: Comment on above: 1 Occurrences starti ng 08/15/2023 until 09/13/2024 US Thyroid gland US THYROID/PARA THYROID Radiology Routine Thyroid nodule 12/19/2023 9:37 AM EDT [facility] Work Phone: End: 10-21-2023 XR ABDOMEN 1V SUPINE XR ABDOMEN 1V SUPINE Radiology Routine Right flank pain RUQ pain Epigastric pain Acute constipation 1 Occurrences starting 09/21/2022 until 10/21/2023 [facility] Work Phone: Comment on above: 1 Occurrences starti ng 09/21/2022 until 10/21/2023 XR ABDOMEN 1V SUPINE XR ABDOMEN 1V SUPINE Radiology Routine Right flank pain RUQ pain Epigastric pain Acute constipation 09/21/2022 1:54 PM EDT [facility] Work Phone: [facility] Immunizations Immunization Date Immunization Notes Care Provider Casey phan 02-24-2011 influenza virus vaccine, unspecified formulation Summer Bender RD Work Phone: [facility] Work Phone: 08-25-2009 tuberculin skin test ; purified protein derivative solution, intradermal Stef Luis RD Work Phone: [facility] 12-06-2005 tetanus and diphther ia toxoids, adsorbed, preservative free, for adult use (2 Lf of tetanus toxoid and 2 Lf of diphtheria toxoid) Summer Bender RD Work Phone: [facility] Work Phone: 12-12-2001 measles, mumps and rubella virus vaccine Summer Bender RD Work Phone: [facility] Work Phone: 12-30-1994 diphtheria, tetanus toxoids and acellular pertussis vaccine Summer Bender RD Work Phone: [facility] Work Phone: 12-30-1994 poliovirus vaccine, inactivated Summer Bender RD Work Phone: [facility] Work Phone: 11-16-1990 diphtheria, tetanus toxoids and pertussis vaccine Summer Bender RD Work Phone: [facility] Work Phone: 11-16-1990 poliovirus vaccine, inactivated Summer Bender RD Work Phone: [facility] Work Phone: 08-03-1990 haemophilus influenz ae type b vaccine, conjugate unspecified formulation Summer Bender RD Work Phone: [facility] Work Phone: 08-03-1990 measles, mumps and rubella virus vaccine Summer Bender RD Work Phone: [facility] Work Phone: 1989 diphtheria, tetanus toxoids and pertussis vaccine Summer Bender RD Work Phone: [facility] Work Phone: 1989 diphtheria, tetanus toxoids and pertussis vaccine Summer Bender RD Work Phone: [facility] Work Phone: 1989 poliovirus vaccine, inactivated Summer Bender RD Work Phone: [facility] Work Phone: 1989 diphtheria, tetanus toxoids and pertussis vaccine Summer Bender RD Work Phone: [facility] Work Phone: 1989 poliovirus vaccine, inactivated Summer Bender RD Work Phone: [facility] Work Phone: Payers Date Payer Category Payer Self-pay 2017 Medicaid [id number] 2016 Medicaid [employer] [id number] 2016-Present [phone] [address] [place] [address] Medicaid [id number] 2016 Medicaid [id number] 2016 Unknown [id number] 2015 Unknown ANTHEM [id number] 1989 Unknown [id number] 1989 Unknown [id number] 1989 Unknown [id number] 1989 Unknown [id number] 1989 Unknown [id number] 1989 Unknown [id number] Unknown Unknown [id number] Unknown [id number] Unknown [id number] Unknown [id number] Unknown [id number] Unknown [id number] Unknown [id number] Unknown [id number] Social History Date Type Detail Facility Start: 07-18-2012 End: 02-14-2024 Tobacco smoking status NHIS Ex-smoker [facility] Start: 05-25-2006 End: 11-23-2006 History of tobacco use Current smoker [facility] Start: 05-25-2006 End: 11-23-2006 History of tobacco use Cigarette Smoker [facility] Start: 07-18-2012 End: 02-14-2024 Tobacco use and exposure Smokeless tobacco non-user [facility] Start: 07-28-2021 End: 08-09-2024 Alcohol intake Ex-drinker (finding) [facility] Start: 07-27-2021 End: 05-11-2022 History SDOH Alcohol Frequency 1 [facility] Start: 07-27-2021 History SDOH Alcohol Std Drinks 98 [facility] Start: 09-08-2020 History SDOH Alcohol Comment stopped 08/19/2017 [facility] Start: 07-27-2021 End: 05-11-2022 History SDOH Social Connections Phone 3 [facility] Start: 07-27-2021 End: 05-11-2022 History SDOH Social Connections Get Together 2 [facility] Start: 07-27-2021 History SDOH Social Connections Living 8 [facility] Start: 07-27-2021 End: 05-11-2022 History SDOH Physical Activity DPW 5 [facility] Start: 07-27-2021 History SDOH Financial 4 [facility] Start: 1990 Sex Assigned At Female C [facility] Start: 07-17-2021 End: 03-10-2022 Exposure to SARS-CoV-2 (event) Not sure [facility] Start: 11-22-2021 End: 12-02-2021 Exposure to SARS-CoV-2 (event) Unable to assess [facility] Start: 05-11-2022 History SDOH Alcohol Std Drinks 0 [facility] Start: 05-11-2022 History SDOH Physica l Activity DPW 7 [facility] Start: 09-20-2022 End: 05-13-2023 Tobacco smoking status NHIS Unknown if ever smoked [facility] Start: 07-19-2019 None [facility] Start: 09-18-2019 Non-smoker [facility] Start: 05-10-2022 End: 09-23-2022 History of Social function [facility] Start: 05-10-2022 End: 09-23-2022 Social connection and isolation panel [facility] Do you belong to any clubs or organizations such as presybeterian groups, unions, [employer] or athletic groups, or school groups? Yes [facility] Are you now , , , , never or living with a partner? [facility] How often to you hav e a drink containing alcohol? Never [facility] How many standard drinks containing alcohol do you have on a typical day? Patient does not drink [facility] How hard is it for y ou to pay for the very basics like food, housing, medical care, and heating Somewhat hard [facility] Do you feel stress - tense, restless, nervous, or anxious, or unable to sleep at night because your mind is troubled all the time - these days [OSQ] Only a little [facility] (I/We) worried wheth er (my/our) food would run out before (I/we) got money to buy more. Never true [facility] In the past 12 month s, was there a time when you were not able to pay the mortgage or rent on time? No [facility] Start: 08-07-2020 Gender identity Identifies as female gender (finding) [facility] Start: 08-07-2020 Sexual orientation Heterosexual (sameer medley) [facility] Do you feel stress - tense, restless, nervous, or anxious, or unable to sleep at night because your mind is troubled all the time - these days [OSQ] Very much [facility] NEGATED: Highlighted row [facility] Functional Status Date Assessment Result Facility 07-09-2021 Are you deaf, or do you have serious difficulty hearing No 07/09/2021 2:38 PM Dolly Perla RN No [facility] 07-09-2021 Are you blind, or do you have serious difficulty seeing, even when wearing glasses No 07/09/2021 2:38 PM Dolly Perla RN No [facility] 07-09-2021 Do you have serious difficulty walking or climbing stairs No 07/09/2021 2:38 PM Dolly Perla RN No [facility] 07-09-2021 Do you have difficul ty dressing or bathing No 07/09/2021 2:38 PM Dolly Perla RN No [facility] 07-09-2021 Because of a physica l, mental, or emotional condition, do you have difficulty doing errands alone such as visiting a physician's office or shopping No 07/09/2021 2:38 PM Dolly Perla RN No [facility] Mental Status Date Assessment Result Facility 09-20-2022 Cognitive function Level Of Cons ciousness Awake;Alert;Appropriate;Fol lows Commands [facility] Work Phone: 07-09-2021 Because of a physica l, mental, or emotional condition, do you have serious difficulty concentrating, remembering, or making decisions No 07/09/2021 2:38 PM Dolly Perla RN No [facility] Clinical Notes 01-01-2016 to 11-05-2024 Patient InstructionsStef [...] mcg, Iron 45 mg and calcium citrate 7100-7154 mg/day -continue current regimen, and add in [...] and snacks with an marlin; aim for 1372-2944 calories per day 8. Continue to work with your medical team to identify sources of low blood sugars and manage stressors Follow Up on 12/31 at 9:30 AM documented in this encounter [facility] 11-05-2024 History of Presen t illness Narrative The [facility] Nutrition Therapy: Virtual Consult - Re-assessment I have communicated my name and active licensure. The patient s identity and physical location were verified at the time of this visit. Either the patient or their legal appeals representative has been informed of the risks [...] mcg, Iron 45 mg and calcium citrate 5980-1167 mg/day -continue current regimen, and add in [...] and snacks with an marlin; aim for 9785-4334 calories per day 8. Continue to work [...] from foods as recommended. PA meets recommendations. ~9405-4917 calories/day excessive ~50 gm carbohydrates per day likely inadequate >120 gm protein intake/day Meets recommendations >100 oz fluid intake/day Meets recommendations Takes most recommended vitamin/minerals inadequate in some trace minerals Labs reveal normal hbA1c Resting Metabolic Rate: 1733 Energy needs for weight loss: 0988-6550 calories per day (10-15 kcal/kg CBW) Protein [...] and snacks with an marlin; aim for 3884-8089 calories per day IN PROGRESS Actions to implement interventions: see assessment Diet History: Breakfast - 2 egg whites and 1 egg (17 gm pro per patient) and sometimes 1 cheese stick Snack - ukrainian yogurt (15 gm pro) Lunch - jocko [...] oz water Alcohol - none Vitamins/Supplements - 83414 international unit(s) vitamin A, 4000 international unit(s) [...] TIME: 11:21 PM documented in this encounter [facility] 11-05-2024 Note HNO ID: [id number] Author: STEF LUIS RD Service: ? Author Type: Registered Dietitian Type: Progress Notes Filed: 11/05/2024 11:24 Note Text: The [facility] Nutrition Therapy: Virtual Consult - Re-assessment I have communicated my name and active licensure. The patient?s identity and physical location were verified at the time of this visit. Either the patient or their legal appeals representative has been informed of the risks [...] mcg, Iron 45 mg and calcium citrate 4933-3194 mg/day -continue current regimen, and add in [...] and snacks with an marlin; aim for 1301-8163 calories per day 8. Continue to work [...] from foods as recommended. PA meets recommendations. ~0112-8760 calories/day excessive ~50 gm carbohydrates per day likely inadequate >120 gm protein intake/day Meets recommendations >100 oz fluid intake/day Meets recommendations Takes most recommended vitamin/minerals inadequate in some trace minerals Labs reveal normal hbA1c Resting Metabolic Rate: 1733 Energy needs for weight loss: 3672-8516 calories per day (10-15 kcal/kg CBW) Protein [...] eating and drinking (more content not included)... [facility] 10-29-2024 Telephone encounter Note ANNIKA 08/09/24 12/20/24 [facility] 10-29-2024 Miscellaneous Notes ANNIKA 08/09/24 MAR 16/25 documented in this encounter [facility] 08-09-2024 Note HNO ID: [id number] Author: INGA FERGUSON MA Service: ? Author Type: Building Economist Type: Procedures Filed: 08/09/2024 16:17 Note Text: [facility] 08-09-2024 Procedure note Procedure(s): EXTERNAL FIRE POT OPERATOR, CGM SYS Images from the original note were not included. [facility] 08-09-2024 Procedure note Procedure(s): EXTERNAL FIRE POT OPERATOR, CGM SYS Images from the original note were not included. documented in this encounter [facility] 08-09-2024 History of Presen t illness Narrative [...] lb) 413 lbs Lowest weight 192 lbs [place] weight: 72.4 kg (159 lb 11 oz) [...] turkey deli meat and cheese. At noon: ukrainian yogurt with berries , beef jerky No [...] Visit Medication Sig Blood-Glucose Meter,Continuous (DEXCOM G7 FIRE POT OPERATOR) misc 1 Each as directed. Blood-Glucose Sensor (DEXCOM G7 SENSOR) allison 1 Each every 10 days. glucagon 3 mg/actuation nasal spray (BAQSIMI) Use 1 [facility] in the nose as needed for low [...] MONITOR 2. Hypoglycemia after GI (gastrointestinal) surgery ([facility]) K91.2 acarbose (PRECOSE) 25 mg tablet HOME [...] today. Manuela Isbell MD Endocrinology and Metabolism [facility] I spent a total of 60 minutes on the date of the service which included preparing to see the patient, [id number] patient care, completing clinical documentation, obtaining and/or reviewing separately obtained history, performing a medically appropriate examination, counseling and educating the patient/family/caregiver, and ordering medications, tests, or procedures. documented in this encounter [facility] 08-09-2024 Note HNO ID: [id number] Author: MANUELA ISBELL MD Service: ? Author [...] lb) 413 lbs Lowest weight 192 lbs [place] weight: 72.4 kg (159 lb 11 oz) [...] turkey deli meat and cheese. At noon: ukrainian yogurt with berries , beef jerky No [...] Visit Medication Sig Blood-Glucose Meter,Continuous (DEXCOM G7 FIRE POT OPERATOR) misc 1 Each as directed. Blood-Glucose Sensor (DEXCOM G7 SENSOR) allison 1 Each every 10 days. glucagon 3 mg/actuation nasal spray (BAQSIMI) Use 1 [facility] in the nose as needed for low [...] (BMI) of 60.0 to 69.9 in adult ([facility]) 10/07/2009 Esophagitis, unspecified High grade squamous intraepithelial [...] Signs BP 127/79 (more content not included)... [facility] 08-09-2024 Instructions Manuela Isbell MD - 08/09/2024 9:52 AM EDT Thank you for choosing the [facility] Department of Endocrinology, Diabetes and Metabolism. Did you know that you need to call 48 hours in advance of your scheduled visit, if you are unable to make your appointment? The [facility] [place] thanks you for your commitment, because patients not showing to their appointment results in a lost opportunity for patients to receive [facility] health care at the [facility]. To Cancel an appointment, please choose one of the following: - Call the Appointment Call Center at [phone] - From [facility], Go to Appointments - Cancel Appts If cancelling, consider your need to reschedule to prevent further delays in your care. To Schedule an appointment, please choose one of the following: - Call the Appointment Call Center at [phone] - From [facility], Go to Appointments - Request an Appt [...] Some whole grain breads (e.g., Jae bread, Rodegr s Flax, Oat Bran & Whole Wheat Amna/Lavash/Tortillas) Some whole grain crackers (e.g., RyKrisp, RyVita, Wasa) High Glycemic Index Carbohydrates (AVOID) Refined breakfast cereals (e.g., [place] Flakes, Rice Krispies, Cream of Rice, instant oatmeal) Regular pasta Most starchy vegetables (e.g., white potatoes, corn, winter (orange) squash) White rice, rice cakes Popcorn, pretzels, chips Some fruits (e.g., ripe bananas, pineapple, yael, watermelon, grapes) All fruit juices and sweetened drinks (e.g., sodas, sweetened iced tea) Bread, rolls, bagels, Colombian muffins, and crackers made with refined flour Sweets (e.g., candy, cake, cookies, ice cream, syrup) Heart-Healthy Fats Nuts, nut butters Avocado, guacamole Olives Most plant oils (e.g., olive, canola, peanut, soy, sunflower, sesame) Most seeds (e.g., sunflower, flax, sesame/sesame tahini) Oily fish (e.g., salmon, bluefish, mackerel, tuna, sardines) documented in this encounter [facility] 07-13-2024 Instructions Stef Luis, MIRI - 07/13/2024 [...] and snacks with an marlin; aim for 5206-8422 calories per day Folow Up on 10/12 at 1:30 PM documented in this encounter [facility] 07-13-2024 History of Presen t illness Narrative The [facility] Nutrition Therapy: Virtual Consult - Re-assessment I have communicated my name and active licensure. The patient s identity and physical location were verified at the time of this visit. Either the patient or their legal appeals representative has been informed of the risks [...] and snacks with an marlin; aim for 3267-2206 calories per day Nutrition Monitoring & Evaluation: [...] Rate: 1713 Energy needs for weight loss: 9148-8905 calories per day (15-20 kcal/kg CBW) Protein [...] mcg, Iron 45 mg and calcium citrate 5050-4298 mg/day . It is okay to use [...] and snacks with an marlin; aim for 6154-3676 calories per day MET Actions to implement interventions: see assessment Diet History: Breakfast - jocko protein powder (22 gm pro) mixed with 10 oz unsweetened coconut milk and egg bake with peppers and sausage (13 gm pro) Snack - none OR 1/2 apple with PB (6 gm pro) OR ukrainian yogurt (15 gm pro) Lunch - 3 oz lean meat (21 gm pro), vegetables Snack - none Dinner - 3-4 lean meat (21-28 gm pro), vegetables Snack - none Beverages - ~1 gallon water Alcohol - none Vitamins/Supplements - 18658 international unit(s) vitamin A, 4000 international unit(s) [...] TIME: 2:07 PM documented in this encounter [facility] 07-13-2024 Note HNO ID: [id number] Author: STEF LUIS RD Service: ? Author Type: Registered Dietitian Type: Progress Notes Filed: 07/13/2024 14:08 Note Text: The [facility] Nutrition Therapy: Virtual Consult - Re-assessment I have communicated my name and active licensure. The patient?s identity and physical location were verified at the time of this visit. Either the patient or their legal appeals representative has been informed of the risks [...] and snacks with an marlin; aim for 2965-7810 calories per day Nutrition Monitoring AND Evaluation: [...] Rate: 1713 Energy needs for weight loss: 5920-7784 calories per day (15-20 kcal/kg CBW) Protein [...] mcg, Iron 45 mg and calcium citrate 2547-0876 mg/day . It is okay to use [...] and snacks with an marlin; aim for 7367-2548 calories per day MET Actions to implement interventions: see assessment Diet History: Breakfast - jocko protein powder (22 gm pro) mixed with 10 oz unsweetened coconut milk and egg bake with peppers and sausage ( (more content not included)... [facility] 07-09-2024 Telephone encounter Note Called patient and left voicemail to notify of scheduled appointment [facility] 07-09-2024 Miscellaneous Notes Called patient and left voicemail to notify of scheduled appointment documented in this encounter [facility] 07-04-2024 Instructions Manuela Isbell MD - 07/04/2024 [...] bran cereal Beans/legumes (e.g., garbanzo, navy, kidney, brery, gill, black-eyed and pea beans, edamame (soybeans), [...] Index Carbohydrates (AVOID) Refined breakfast cereals (e.g., [place] Flakes, Rice Krispies, Cream of Rice, instant oatmeal) Regular pasta Most starchy vegetables (e.g., white potatoes, corn, winter (orange) squash) White rice, rice cakes Popcorn, pretzels, chips Some fruits (e.g., ripe bananas, pineapple, yael, watermelon, grapes) All fruit juices and sweetened drinks (e.g., sodas, sweetened iced tea) Bread, rolls, bagels, Colombian muffins, and crackers made with refined flour Sweets (e.g., candy, cake, cookies, ice cream, syrup) Heart-Healthy Fats Nuts, nut butters Avocado, guacamole Olives Most plant oils (e.g., olive, canola, peanut, soy, sunflower, sesame) Most seeds (e.g., sunflower, flax, sesame/sesame tahini) Oily fish (e.g., salmon, bluefish, mackerel, tuna, sardines) documented in this encounter [facility] 07-04-2024 Note HNO ID: [id number] Author: MANUELA ISBELL MD Service: ? Author Type: Physician Type: Progress Notes Filed: 07/04/2024 16:42 Note Text: BMI OM PostOp Virtual Visit July 04, 2024 I have communicated my name and active licensure. The patient's identity and physical location were verified at the time of this visit. Either the patient or their legal appeals representative has been informed of the risks and benefits of -- and alternatives to -- treatment through a remote evaluation and consents to proceed with the evaluation remotely. Index Surgery Date of Surgery: 07/07/2021 Surgeon: Phyllis Suresh MD Surgical Procedure: LAPAROSCOPIC GASTRIC RESTRICTIVE SURG W/ BYPASS AND FRANCISCA-EN-Y 150CM OR LESS Pre-surgical weight: 156.5 kg (345 lb) 413 lbs Lowest weight 192 lbs [place] weight: 72.4 kg (159 lb 11 oz) [...] onset post operativ (more content not included)... [facility] 07-04-2024 History of Presen t illness Narrative BMI OM PostOp Virtual Visit July 04, 2024 I have communicated my name and active licensure. The patient's identity and physical location were verified at the time of this visit. Either the patient or their legal appeals representative has been informed of the risks and benefits of -- and alternatives to -- treatment through a remote evaluation and consents to proceed with the evaluation remotely. Index Surgery Date of Surgery: 07/07/2021 Surgeon: Phyllis Suresh MD Surgical Procedure: LAPAROSCOPIC GASTRIC RESTRICTIVE SURG W/ BYPASS & FRANCISCA-EN-Y 150CM OR LESS Pre-surgical weight: 156.5 kg (345 lb) 413 lbs Lowest weight 192 lbs [place] weight: 72.4 kg (159 lb 11 oz) [...] Problem List Severe obesity (BMI >= 40) ([facility]) GERD (gastroesophageal reflux disease) Iron deficiency Morbid obesity ([facility]) Calculus of gallbladder without cholecystitis without obstruction Incidental lung nodule, > 3mm and < 8mm Panic disorder Spotting in History of loop electrosurgical excision procedure (LEEP) of cervix affecting History of labor History of depression History of depression Family history of cystic fibrosis Class 3 severe obesity without serious comorbidity with body mass index (BMI) of 60.0 to 69.9 in adult ([facility]) Resolved Hospital Problems No resolved problems to [...] -- Follow up in 1 month at [facility] to review BG I spent a total of 76 minutes on the date of the service which included preparing to see the patient, [id number]-[id number]-imml patient care, completing clinical documentation, obtaining and/or reviewing separately obtained history, performing a medically appropriate examination, counseling and educating the patient/family/caregiver, and ordering medications, tests, or procedures. Manuela Isbell MD documented in this encounter [facility] 05-29-2024 History of Presen t illness Narrative BMI Obesity Medicine FollowUp Note Distance Health Visit May 29, 2024 I have communicated my name and active licensure. The patient's identity and physical location were verified at the time of this visit. Either the patient or their legal appeals representative has been informed of the risks and benefits of -- and alternatives to -- treatment through a remote evaluation and consents to proceed with the evaluation remotely. Patient Summary: Mary Burrell is 34 year old Female who presents virtually for follow-up evaluation of her obesity and related complications to the [facility] [place]. 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)_[place] 12/2015 REMOVAL GALLBLADDER TONSILLECTOMY PRIMARY/SECONDARY <AGE [...] this. She has continued follow up with [facility] endocrine specialist as well. Plan: -- refer out for possible reactive hypoglycemia -- Continue f/u with BMI RD -- Hold phentermine -- Continue to check routine RYGB labs I spent a total of 35 minutes on the date of the service which included preparing to see the patient, zwzr-[id number] patient care, completing clinical documentation, obtaining and/or reviewing separately obtained history, performing a medically appropriate examination, and counseling and educating the patient/family/caregiver. Ping Ansari APRN.RENEE documented in this encounter [facility] 05-29-2024 Note HNO ID: [id number] Author: PING ANSARI APRN.CNP Service: ? Author Type: Nurse Practitioner Type: Progress Notes Filed: 06/05/2024 17:38 Note Text: BMI Obesity Medicine FollowUp Note Distance Health Visit May 29, 2024 I have communicated my name and active licensure. The patient's identity and physical location were verified at the time of this visit. Either the patient or their legal appeals representative has been informed of the risks and benefits of -- and alternatives to -- treatment through a remote evaluation and consents to proceed with the evaluation remotely. Patient Summary: Mary Burrell is 34 year old Female who presents virtually for follow-up evaluation of her obesity and related complications to the [facility] [place]. In our previous visits we have outlined [...] ROS obtained by others. History reviewed in [facility] Current Outpatient Medications Medication Sig Magnesium [...] (BMI) of 60.0 to 69.9 in adult ([facility]) 10/07/2009 Esophagitis, unspecified High grade squamous intraepithelial lesion of cervix 01/01/2016 Iron deficiency 02/06/2021 Neck mass fatty deposit depression PAST SURGICAL HISTORY Procedure Laterality Date ESOPHAGOGASTRODUODENOSCOPY TRANSORAL DIAGNOSTIC 03/10/2012 EGD repeat 1 year FOOT SURGERY HX 2013 GASTRIC BYPASS HX 07/07/2021 [facility] Main 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[place] 12/2015 REMOVAL GALLBLADDER TONSILLECTOMY PRIMARY/SECONDARY VAGINAL [...] this. She has continued follow up with [facility] endocrine specialist as well. Plan: -- refer out for possible reactive hypoglycemia -- Continue f/u with BMI RD -- Hold phentermine -- Continue to check routine RYGB labs I spent a total of 35 minutes on the date of the service which included preparing to see the patient, [id number]-gz-[id number] patient care, completing c (more content not included)... [facility] 04-09-[address] - 04/09/2024 [...] mcg, Iron 45 mg and calcium citrate 8338-2308 mg/day . It is okay to use [...] and snacks with an marlin; aim for 0247-6789 calories per day Follow Up on 07/09/24 at 1 PM documented in this encounter [facility] 04-09-2024 History of Presen t illness Narrative The [facility] Nutrition Therapy: Virtual Consult - Re-assessment I have communicated my name and active licensure. The patient s identity and physical location were verified at the time of this visit. Either the patient or their legal appeals representative has been informed of the risks [...] mcg, Iron 45 mg and calcium citrate 2720-3618 mg/day . It is okay to use [...] and snacks with an marlin; aim for 6244-4022 calories per day Nutrition Monitoring & Evaluation: [...] Rate: 1678 Energy needs for weight loss: 6983-6738 calories per day (15-20 kcal/kg CBW) Protein [...] mcg, Iron 45 mg and calcium citrate 1928-6840 mg/day . It is okay to use [...] and snacks with an marlin; aim for 5599-4501 calories per day IN PROGRESS Actions to [...] water Alcohol - none Vitamins/Supplements - creatine, 99838 international unit(s) vitamin A, 2000 international unit(s) [...] TIME: 2:18 PM documented in this encounter [facility] 04-09-2024 Note HNO ID: [id number] Author: STEF LUIS RD Service: ? Author Type: Registered Dietitian Type: Progress Notes Filed: 04/09/2024 14:20 Note Text: The [facility] Nutrition Therapy: Virtual Consult - Re-assessment I have communicated my name and active licensure. The patient?s identity and physical location were verified at the time of this visit. Either the patient or their legal appeals representative has been informed of the risks [...] mcg, Iron 45 mg and calcium citrate 3592-9841 mg/day . It is okay to use [...] and snacks with an marlin; aim for 8022-4182 calories per day Nutrition Monitoring AND Evaluation: [...] Rate: 1678 Energy needs for weight loss: 0487-2277 calories per day (15-20 kcal/kg CBW) Protein [...] mcg, Iron 45 mg and calcium citrate 9290-6990 mg/day . It is okay to use [...] and snacks with an marlin; aim for 6688-5366 calories per day IN PROGRESS Actions to implement interventions: see assessment Diet History: Patient follows an intermittent fasting plan from 10 AM to 6 PM Breakfast - Comr.se protein shake (26 OR 42 gm pro) Snack - none Lunch - fairlife (more content not included)... [facility] 03-06-2024 Note HNO ID: [id number] Author: CRISTA CARMICHAEL APRN.CROZER OPERATOR Service: ? Author Type: Nurse Practitioner Type: [...] BYPASS HX 07/07/2021 [facility] 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[place] 12/2015 REMOVAL GALLBLADDER TONSILLECTOMY PRIMARY/SECONDARY VAGINAL [...] persist or worse (more content not included)... [facility] 03-06-2024 History of Presen t illness Narrative [...] BYPASS HX 07/07/2021 [facility] 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)_[place] 12/2015 REMOVAL GALLBLADDER TONSILLECTOMY PRIMARY/SECONDARY <AGE [...] MG-POTASSIUM CLAVULANATE 125 MG TABLET Crista Carmichael APRN.CROZER OPERATOR documented in this encounter [facility] 02-20-2024 Note HNO ID: [id number] Author: PING PRINCE APRN.RENEE Service: ? Author Type: Nurse Practitioner Type: Progress Notes Filed: 02/20/2024 11:47 Note Text: BMI Obesity Medicine FollowUp Note Distance Health Visit February 20, 2024 I have communicated my name and active licensure. The patient's identity and physical location were verified at the time of this visit. Either the patient or their legal appeals representative has been informed of the risks and benefits of -- and alternatives to -- treatment through a remote evaluation and consents to proceed with the evaluation remotely. Patient Summary: Mary Burrell is 33 year old Female who presents virtually for follow-up evaluation of her obesity and related complications to the [facility] [place]. In our previous visits we have outlined an individualized lifestyle intervention including a personalized nutrition recommendations and physical activity optimization. Index Surgery Date of Surgery: 07/07/2021 Surgeon: Phyllis Surseh MD Surgical Procedure: LAPAROSCOPIC GASTRIC RESTRICTIVE SURG [...] thyroiditis exacerbation. She will reach out to [facility] to discuss hu-menopausal symptoms and PCP regarding possibly starting anxiolytic pharmacotherapy. 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 Obesity Medications: [...] BYPASS HX 07/07/2021 [facility] 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)_[place] 12/2015 REMOVAL GALLBLADDER TONSILLECTOMY PRIMARY/SECONDARY VAGINAL [...] TBW loss thus far. Follow up with [facility] for possible testing. Follow up with PCP regarding possible anxiety medication. Plan: -- continue current lifestyle -- Continue Phentermine. -- return to clinic/virtually in 3 months I spent a total of 29 minutes on the date of the service which included preparing to see the patient, tdqn-al-osvi patient care, completing clinical documentation, obtaining and/or reviewing separately obtained history, performing a medically appropriate examination, counseling and educating the patient/ (more content not included)... [facility] 02-20-2024 History of Presen t illness Narrative BMI Obesity Medicine FollowUp Note Distance Health Visit February 20, 2024 I have communicated my name and active licensure. The patient's identity and physical location were verified at the time of this visit. Either the patient or their legal appeals representative has been informed of the risks and benefits of -- and alternatives to -- treatment through a remote evaluation and consents to proceed with the evaluation remotely. Patient Summary: Mary Burrell is 33 year old Female who presents virtually for follow-up evaluation of her obesity and related complications to the [facility] [place]. In our previous visits we have outlined [...] thyroiditis exacerbation. She will reach out to [facility] to discuss hu-menopausal symptoms and PCP regarding possibly starting anxiolytic pharmacotherapy. 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 Obesity Medications: [...] BYPASS HX 07/07/2021 [facility] 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[place] 12/2015 REMOVAL GALLBLADDER TONSILLECTOMY PRIMARY/SECONDARY <AGE [...] TBW loss thus far. Follow up with [facility] [facility] for possible testing. Follow up with PCP regarding possible anxiety medication. Plan: -- continue current lifestyle -- Continue Phentermine. -- return to clinic/virtually in 3 months I spent a total of 29 minutes on the date of the service which included preparing to see the patient, nykk-sz-amko patient care, completing clinical documentation, obtaining and/or reviewing separately obtained history, performing a medically appropriate examination, counseling and educating the patient/family/caregiver, ordering medications, tests, or procedures, and independently interpreting results (not separately reported). Some documentation from previous visit of 10/20/23 was copied and pasted, documentation has been reviewed and edited as necessary for today's visit. Ping Prince APRN.CROZER OPERATOR If you were prescribed a medication today, [...] pursue an appeal. documented in this encounter [facility] 02-14-2024 Instructions Donita Green MD - 02/14/2024 9:39 AM EDT Please do thyroid ultrasound and lab test in 1 year from the last thyroid ultrasound (in 12/2024) and follow up after documented in this encounter [facility] 02-14-2024 Note HNO ID: [id number] Author: DONITA GREEN MD Service: ? Author [...] BYPASS HX 07/07/2021 [facility] 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)_[place] 12/2015 REMOVAL GALLBLADDER TONSILLECTOMY PRIMARY/SECONDARY VAGINAL [...] 08/28/2020 (Exact Date) (more content not included)... [facility] 02-14-2024 History of Presen t illness Narrative [...] (BMI) of 60.0 to 69.9 in adult ([facility]) 10/07/2009 Esophagitis, unspecified High grade squamous intraepithelial lesion of cervix 01/01/2016 Iron deficiency 02/06/2021 Neck mass fatty deposit depression PAST SURGICAL HISTORY: PAST SURGICAL HISTORY Procedure Laterality Date ESOPHAGOGASTRODUODENOSCOPY TRANSORAL DIAGNOSTIC 03/10/2012 EGD repeat 1 year FOOT SURGERY HX 2013 GASTRIC BYPASS HX 07/07/2021 [facility] Main 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)_[place] 12/2015 REMOVAL GALLBLADDER TONSILLECTOMY PRIMARY/SECONDARY <AGE [...] 2 points Echogenicity: Hypoechoic, 2 points Shape: Eseyo-wbdf-qexs, 0 points Margin: Smooth, 0 points Echogenic foci: None, 0 points TI-RADS Category: 4 ACR Recommendation: No FNA or follow-up imaging is advised. Nodule #2 Location: Right lower pole Size: 1.4 x 1.1 x 1 cm ; similar to the prior. Characteristics: Composition: Solid or almost completely solid, 2 points Echogenicity: Hypoechoic, 2 points Shape: Pvwdl-efkh-poqa, 0 points Margin: Smooth, 0 points Echogenic [...] Moderate Donita Green MD Endocrinology Associate Staff [facility] [place] [phone] documented in this encounter [facility] 01-06-[address] - 01/06/2024 [...] mcg, Iron 45 mg and calcium citrate 8036-1701 mg/day . It is okay to use [...] and snacks with an marlin; aim for 3858-3763 calories per day Follow Up on 03/30 at 3 PM Call [phone] to follow up with Delia Prince documented in this encounter [facility] 01-06-2024 History of Presen t illness Narrative The [facility] Nutrition Therapy: Virtual Consult - Re-assessment I have communicated my name and active licensure. The patient s identity and physical location were verified at the time of this visit. Either the patient or their legal appeals representative has been informed of the risks [...] mcg, Iron 45 mg and calcium citrate 7164-1787 mg/day . It is okay to use [...] and snacks with an marlin; aim for 0351-8158 calories per day Nutrition Monitoring & Evaluation: [...] physical activity with a variety of exercises. 7259-0619 calories/day meets recommendations 140 gm protein intake/day meets recommendations 1 gallon fluid intake/day meets recommendations Consistent with appropriate vitamin/minerals inadequate in vitamin D Labs reveal no new labs to review Resting Metabolic Rate: 1653 Energy needs for weight loss: 2511-5457 calories per day (15-20 kcal/kg CBW) Protein needs: 85 grams protein per day (1.2 g/kg IBW) [facility] 1. Protein: Continue to strive for [...] Bariatric Fusion once daily capsule MVI OR [employer] health once daily capsule MVI; INCLUDE 9776-7298 mg calcium citrate per day (such as 3 powdered calcium sticks mixed with water per day) IN PROGRESS -https://www.bariatricfusion.com /products/bnm-zbr-qyw-bariatric- aqjeesgxwsur-fbjqczo-wjzk-iron -https://[employer].com/collecti ons/bariatric-multivitamin/produ cts/nrxoquboqgia-39rt-kgox-capsu le -https://[employer].com/collecti ons/calcium-supplements/products /qnytu-r-cfazjubx-calcium-citrat a-qp-yzg-go-sticks 5. Exercise: strive for daily activity - [...] and snacks with an marlin; caloric goal= 3535-2085 per day; aim for 50-60% calories from [...] coffee Alcohol - none Vitamins/Supplements - creatine, 90187 international unit(s) vitamin A, 2000 international unit(s) [...] units SIGNATURE: Stef Luis RD PATIENT NAME: Mayr Burrell DATE: 01/06/2024 TIME: 3:31 PM documented in this encounter [facility] 01-06-2024 Note HNO ID: [id number] Author: STEF LUIS RD Service: ? Author Type: Registered Dietitian Type: Progress Notes Filed: 01/06/2024 15:33 Note Text: The [facility] Nutrition Therapy: Virtual Consult - Re-assessment I have communicated my name and active licensure. The patient?s identity and physical location were verified at the time of this visit. Either the patient or their legal appeals representative has been informed of the risks [...] mcg, Iron 45 mg and calcium citrate 4368-3388 mg/day . It is okay to use [...] and snacks with an marlin; aim for 8746-7386 calories per day Nutrition Monitoring AND Evaluation: [...] physical activity with a variety of exercises. 5697-1512 calories/day meets recommendations 140 gm protein intake/day meets recommendations 1 gallon fluid intake/day meets recommendations Consistent with appropriate vitamin/minerals inadequate in vitamin D Labs reveal no new labs to review Resting Metabolic Rate: 1653 Energy needs for weight loss: 8383-6435 calories per day (15-20 kcal/kg CBW) Protein [...] Bariatric Fusion once daily capsule MVI OR The Deal Fair once daily capsule MVI; INCLUDE 6820-9318 mg calcium citrate per day (such as 3 powdered calcium sticks mixed with water per day) IN PROGRESS -https://www.bariatricfusion.com /products/nwd-vjz-rjz-bariatric- multivitamin-cap bndt-tojt-zlhx -https://MobFox/collecti ons/bariatric-multivitamin/produ cts/multivitamin -00oo-ekeg-kwvnuwm -https://MobFox/Stubmatici ons/calcium-supplements/products /lxbgg-r-yoaknwh n-skpzkzs-scuniuo-px-omh-jb-stic ks 5. Exercise: strive for daily activity [...] and snacks with an marlin; caloric goal= 3776-6495 per day; aim for 50-60% calories from carbs and 20-30% calories from fat MET Actions to implement interventions: see assessment Diet History: Break (more content not included)... [facility] 12-19-2023 History of Presen t illness Narrative [...] PATIENT PRESENTS WITH AN IMPLANTABLE OR ATTACHED LICENSED ACUPUNCTURIST: No RADIOLOGY DEPARTMENT: Ultrasound PERIPHERAL IV DATA: Not applicable SIGNED BY: Christel Posey RDMS RVT December 19, 2023 10:45 AM documented in this encounter [facility] 12-19-2023 Note HNO ID: [id number] Author: CHRISTEL POSEY RDMS Service: ? Author Type: Transfer And Line Up Worker Type: Progress Notes Filed: 12/19/2023 10:45 Note [...] PATIENT PRESENTS WITH AN IMPLANTABLE OR ATTACHED LICENSED ACUPUNCTURIST: No RADIOLOGY DEPARTMENT: Ultrasound PERIPHERAL IV DATA: Not applicable SIGNED BY: Christel Posey RDMS RVT December 19, 2023 10:45 AM [facility] 11-21-2023 Instructions Kiera Carson APRN.CNP - 11/21/2023 [...] needed only for migraine 4) Video or xrle-dj-hjqn in 2 weeks documented in this encounter [facility] 11-21-2023 Note HNO ID: [id number] Author: KIERA CARSON APRN.CNP Service: ? 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 Kiera Carson APRN.CROZER OPERATOR documented in this encounter [facility] 10-20-2023 History of Presen t illness Narrative BMI Obesity Medicine FollowUp Note [facility] Health Visit October 20, 2023 I have communicated my name and active licensure. The patient's identity and physical location were verified at the time of this visit. Either the patient or their legal appeals representative has been informed of the risks and benefits of -- and alternatives to -- treatment through a remote evaluation and consents to proceed with the evaluation remotely. Patient Summary: Mary Burrell is 33 year old Female who presents virtually for follow-up evaluation of her obesity and related complications to the [facility] Bariatric and Metabolic [place]. 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)_*[place] 12/2015 REMOVAL GALLBLADDER TONSILLECTOMY PRIMARY/SECONDARY <AGE 12 VAGINAL HYSTERECTOMY 02/24/2021 Dr Connell Social Connections: Socially Integrated (05/10/2022) Social Connection and Isolation Panel [NHANES] Frequency of Communication with Friends and Family: More than three times a week Frequency of Social Gatherings with Friends and Family: Once a week Attends Church Services: More than 4 times per year [...] which included preparing to see the patient, pcor-ix-ghrv patient care, completing clinical documentation, obtaining and/or reviewing separately obtained history, performing a medically appropriate examination, counseling and educating the patient/family/caregiver, ordering medications, tests, or procedures, and independently interpreting results (not separately reported). All documentation from previous visit of 07/14/23 was copied and pasted, documentation has been reviewed and edited as necessary for today's visit. Ping Prince APRN.CNP documented in this encounter [facility] 10-07-[address] - 10/07/2023 [...] Bariatric Fusion once daily capsule MVI OR The Deal Fair once daily capsule MVI; INCLUDE 6646-1743 mg calcium citrate per day (such as 3 powdered calcium sticks mixed with water per day) -https://www.bariatricfusion.com /products/stt-qlc-huz-bariatric- yvdgqvzzuiqv-uykmfjn-ogxp-iron -https://MobFox/collecti ons/bariatric-multivitamin/produ cts/xupihufzfgqr-70nf-bwba-capsu le -https://MobFox/collecti ons/calcium-supplements/products /tsxbs-k-hjcwwnct-calcium-citrat l-ok-jlm-go-sticks 5. Exercise: strive for daily activity - [...] and snacks with an marlin; caloric goal= 3121-6901 per day; aim for 50-60% calories from carbs and 20-30% calories from fat Follow Up on 01/05 at 3 PM documented in this encounter [facility] 10-07-2023 History of Presen t illness Narrative The [facility] Nutrition Therapy: Virtual Consult - Re-assessment I have communicated my name and active licensure. The patient s identity and physical location were verified at the time of this visit. Either the patient or their legal appeals representative has been informed of the risks [...] Bariatric Fusion once daily capsule MVI OR [employer] health once daily capsule MVI; INCLUDE 7422-6737 mg calcium citrate per day (such as 3 powdered calcium sticks mixed with water per day) -https://www.bariatricfusion.com /products/zaj-hdy-bod-bariatric- uuslyqlkvbss-curatha-yiue-iron -https://Carbon Analytics.Hydrelis/collecti ons/bariatric-multivitamin/produ cts/wybpauudzvrw-57oa-rigg-capsu le -https://MobFox/collecti ons/calcium-supplements/products /bgygt-d-mfsectyu-calcium-citrat v-tt-sdi-go-sticks 5. Exercise: strive for daily activity - [...] and snacks with an marlin; caloric goal= 1115-9283 per day; aim for 50-60% calories from [...] Rate: 1644 Energy needs for weight loss: 3607-4901 calories per day Protein needs: 85 grams [...] last 30 minutes. 7. Track meals with [employer] Marlin; aim for 2687-7290 calories per day MET Actions to implement interventions:see assessment Diet History: 1st Meal 10 AM: fairlife core power protein shake (26 gm pro) 1st Snack 12 PM: ukrainian yogurt (15-20 gm pro) 2nd Meal 1 PM: 4.5 oz chicken(32 gm pro) and vegetables 2nd Snack 3 PM: fairlife protein shake (26 gm pro) OR splyt protein shake (20 gm pro) 3rd Meal 6 PM: 4 oz lean meat (28 gm pro), salad, and vegetables Beverages - 1 gallon water, sometimes coffee Alcohol - none Vitamins/Supplements - 13792 international unit(s) vitamin A, 2000 international unit(s) [...] TIME: 3:32 AM documented in this encounter [facility] 08-15-2023 Instructions Donita Green MD - 08/15/2023 10:51 AM EDT Labs at the earliest [place] Thyroid- December 2023 documented in this encounter [facility] 08-15-2023 History of Presen t illness Narrative [facility] Initial Clinic Visit Note CONSULTING PHYSICIAN: Ping Prince APRN. 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 2017 Guidelines of the [place] Thyroid Association for the Diagnosis and Management [...] 2 points Echogenicity: Hypoechoic, 2 points Shape: Cnmtj-hcho-drkn, 0 points Margin: Smooth, 0 points Echogenic [...] 2 points Echogenicity: Hypoechoic, 2 points Shape: Mxvva-lcsy-hlmn, 0 points Margin: Smooth, 0 points Echogenic [...] Moderate Donita Green MD Endocrinology Associate Staff [facility] Endocrinology and Metabolism [place] [phone] documented in this encounter [facility] 07-14-2023 History of Presen t illness Narrative [...] visit. Either the patient or their legal appeals representative has been informed of the risks [...] Total weight loss: 60.3 kg (133 lb) [place] weight: 72.4 kg (159 lb 11 oz) [...] gain after initiating prescribed Levothyroxine by OS laminating press operator. Increased weight, joint pain and overall fatigue [...] Ping Prince APRN.RENEE documented in this encounter [facility] 07-07-2023 Instructions Stef Luis, MIRI - 07/07/2023 [...] last 30 minutes. 7. Track meals with [employer] Marlin; aim for 1469-2827 calories per day Follow Up on 10/06 at 3 PM documented in this encounter [facility] 07-07-2023 History of Presen t illness Narrative The [facility] Nutrition Therapy: Virtual Consult - Re-assessment I have communicated my name and active licensure. The patient s identity and physical location were verified at the time of this visit. Either the patient or their legal appeals representative has been informed of the risks [...] Track meals with [employer] Marlin; aim for 8704-2656 calories per day Nutrition Monitoring & Evaluation: [...] Rate: 1682 Energy needs for weight loss: 9512-6675 calories per day (10-15 kcal/kg CBW) Protein needs: 85 grams protein per day (1.2 g/kg IBW) Nutrition Intervention Delia Bender 08/11/21 1. Continue to take all recommended vitamin/minerals. IN PROGRESS Some examples of vitamins/mineral companies: - Bariatric Fusion: 4 Complete Chewable Multivitamins per day (2 in the AM, 2 in the PM) www.bariatricfusion.com - [employer] Health: 1 Bariatric Multivitamin and Calcium Citrate (total of 6965-4268 mg/day) * take calcium citrate separately from Multivitamin with iron at least 2 hours apart and 4 hours apart from additional calcium www.Carbon Analytics.Hydrelis - Bariatric Choice: 4 Complete Multivitamins (chewables) per day Www.bariatricchoice.com - Bariatric Advantage: 2 Multivitamins and 3 Calcium Citrate Chewables per day * take calcium citrate separately from Multivitamin with iron at least 2 hours apart and 4 hours apart from additional calcium Www.bariatricadKO-SUage.Hydrelis 2. Protein goal: 74-93 grams protein/day MET [...] oz water Alcohol - none Vitamins/Supplements - 10356 international unit(s) vitamin A, 2000 international unit(s) vitamin D, 2500 mcg vitamin B12, 65 mg iron, 36907 mg calcium Activity: Activities of Daily Living: [...] TIME: 4:33 pm documented in this encounter [facility] 02-04-2023 Miscellaneous Notes BMI SPECIALTY CARE COORDINATION TELEPHONE ENCOUNTER Phoned patient after received message from scheduling team. Follow up call placed to patient, no answer phone; left voice message with RN call back phone number. 02-09-2023 1636 Follow up call placed to patient, no answer phone; left voice message with RN call back phone number. documented in this encounter [facility] 12-23-2022 Miscellaneous Notes called the pt and rescheduled her with Nettie Canales, pt is currently refusing to see Stu Swain because of recent thyroid issues she is having. Please try to schedule with other provider(s) if possible at pt's request. documented in this encounter [facility] 11-22-2022 History of Presen t illness Narrative [...] 2022 1:26 PM documented in this encounter [facility] 11-18-2022 History of Presen t illness Narrative 32 year old female with c/o here for follow up Gaining weight despite running, exercising in gym with personal lines appraiser 6 days 60-90 minutes. 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)_*[place] 12/2015 TONSILLECTOMY PRIMARY/SECONDARY <AGE 12 VAGINAL [...] (Bmi) of 60.0 to 69.9 in Adult ([facility]) Spotting in History of Loop Electrosurgical Excision Procedure (Leep) of Cervix Affecting History of Labor History of Depression History of Depression Family History of Cystic Fibrosis Panic Disorder Calculus of Gallbladder Without Cholecystitis Without Obstruction Incidental Lung Nodule, > 3mm and < 8mm Morbid Obesity ([facility]) Iron Deficiency Gerd (Gastroesophageal Reflux Disease) Severe Obesity (Bmi >= 40) ([facility]) Current Outpatient Medications Medication Sig Dispense Refill [...] Debra Swain PA-C documented in this encounter [facility] 09-21-2022 History of Presen t illness Narrative [...] 2022 1:42 PM documented in this encounter [facility] 09-21-2022 History of Presen t illness Narrative Chief Complaint Patient presents with: ER F/U: [facility] ER FU 09/20/22 HPI Mary Burrell [...] (BMI) of 60.0 to 69.9 in adult ([facility]) 10/07/2009 Esophagitis, unspecified High grade squamous intraepithelial lesion of cervix 01/01/2016 Iron deficiency 02/06/2021 Neck mass fatty deposit depression Previous Surgical History PAST SURGICAL HISTORY Procedure Laterality Date ESOPHAGOGASTRODUODENOSCOPY TRANSORAL DIAGNOSTIC 03/10/2012 EGD repeat 1 year FOOT SURGERY HX 2013 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)_*[place] 12/2015 TONSILLECTOMY PRIMARY/SECONDARY <AGE 12 VAGINAL [...] not taking: Reported on 09/21/2022) OTC PRODUCT HEROZEX ( Malik's Wart, [place] Seed, Folate, and, [...] to reach out to radiology department at [facility] for further clarification on their findings [...] Caroline Miller PA-C documented in this encounter [facility] 09-20-2022 Discharge summary Note Date/Time September 20, 2022 5:20p m [facility] Medical Records Department [address] [place] [address] Emergency Department Summary 09/20/22 MR#: [id number] Acct: [id number] Name: MARY BURRELL Rep #:[id number] : [...] specifically makes her symptoms better or worse [facility] Medical History Abnormal uterine bleeding (AUB) Anxiety [...] % (Auto) 59.0 Lymph % (Auto) 34.9 [place] % (Auto) 4.4 Eos % (Auto) 1.3 [...] Clarity Clear Urine pH 6.5 Ur Specific [place] 1.015 Urine Protein Negative Urine Glucose (UA) [...] 18:00 EDT Reading Location ID and State: [address] [place] [address] Tel [phone], Service support , Discharge Plan Triage Chief [...] your Primary Care Provider. Call [facility] ([phone]) or report to the closest Emergency Room. Call 911 if necessary. 09/20/221910 <Electronically signed by Ranjit Smalls MD> Cosigner Signature (if applicable): CC: Dr. Asif Haque MD ~ Signed [facility] Work Phone: 1(537) 244-996801-06-2023 History of Present illness Narrative* M Caron Swain PA-C - 05/14/2022 10:00 AM EST 32 year old female with c/o Saw Nettie 04/21/2022 f/u right ear infection [facility] clinic: treated with augmentin Notes: [...] (BMI) of 60.0 to 69.9 in adult ([facility]) 10/07/2009 Esophagitis, unspecified High grade squamous intraepithelial lesion of cervix 01/01/2016 Iron deficiency 02/06/2021 Neck mass fatty deposit depression PAST SURGICAL HISTORY Procedure Laterality Date ESOPHAGOGASTRODUODENOSCOPY TRANSORAL DIAGNOSTIC 03/10/2012 EGD repeat 1 year FOOT SURGERY HX 2013 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)_*[place] 12/2015 TONSILLECTOMY PRIMARY/SECONDARY <AGE 12 VAGINAL [...] (Bmi) of 60.0 to 69.9 in Adult ([facility]) Spotting in History of Loop Electrosurgical Excision Procedure (Leep) of Cervix Affecting History of Labor History of Depression History of Depression Family History of Cystic Fibrosis Panic Disorder Calculus of Gallbladder Without Cholecystitis Without Obstruction Incidental Lung Nodule, > 3mm and < 8mm Morbid Obesity ([facility]) Iron Deficiency Gerd (Gastroesophageal Reflux Disease) Severe Obesity (Bmi >= 40) ([facility]) Current Outpatient Medications Medication Sig Dispense Refill [...] BASIC Debra Swain PA-C [facility] Miscellaneous Notes* Telephone Encounter - Dbera Swain PA-C - 04/22/2022 6:32 PM EST The following approved medication requests have been transmitted electronically. Requested Prescriptions Signed Prescriptions Disp Refills meclizine (ANTIVERT) 12.5 mg tab 30 tablet 1 Sig: Take 1 tablet by mouth every 6 hours as needed (dizziness). Debra Swain PA-C documented in this encounterK[facility]22 Miscellaneous Notes* Telephone Encounter - Candida Sotelo Ma - 04/22/2022 9:58 AM EST Detailed message sent to pt * Telephone Encounter - Debra Swain PA-C - 04/22/2022 9:50 AM EST [facility] + Flu A The following approved medication requests have been transmitted electronically. Requested Prescriptions Signed Prescriptions Disp Refills oseltamivir (TAMIFLU) 75 mg capsule 10 capsule 0 Sig: Take 1 capsule by mouth twice daily for 5 days. Authorizing Provider: Debra SWAIN PA-C documented in this encounterK[facility]12-14-2022 Instructions* Patient Instructions* Nettie Canales APRN.CROZER OPERATOR - 04/21/2022 9:49 AM EST Flu (Influenza) [...] on your place of work. Published by [employer]. This content is reviewed periodically and is subject to change as new health information becomes available. The information is intended to inform and educate and is not a replacement for medical evaluation, advice, diagnosis or treatment by a healthcare professional. Developed by [employer] Copyright 2007 [employer] and/or one of its subsidiaries. All Rights Reserved. Special Instructions: Tamiflu as instructed Copyright [employer] Reference Systems 2007 [employer]'s [employer] Advisor Copyright 2008 [employer]. All rights reserved. - www.SirenServ documented in this encounterK[facility]12-[facility]22 History of Present illness Narrative* Nettie Canales APRN.CNP - 04/21/2022 9:36 AM EST This is a 31 year old female who presents today with: Patient presents with: Recheck: Follow up- R ear infection; was seen at [facility] Clinic on 04/19 and started on antibiotic (Augmentin 875mg); fever last evening of 103.5 HISTORY OF PRESENT ILLNESS: Mary Fournier is a 31 year old female. Patient presents with: Recheck: Follow up- R ear infection; was seen at 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 Nettie Canales APRN.CROZER OPERATOR documented [facility] this encounter[facility] History of Present illness Narrative* Josiah oGuld MD - 03/10/2022 9:12 AM EDT Patient [...] TABLET Josiah Gould MD documented in this encounterK[facility]10-06-2022 Instructions* Patient Instructions* Debra Swain PA-C - [...] on in 10 days. 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 TONSILLECTOMY PRIMARY/SECONDARY <AGE 12 VAGINAL [...] (Bmi) of 60.0 to 69.9 in Adult ([facility]) Spotting in History of Loop Electrosurgical Excision Procedure (Leep) of Cervix Affecting History of Labor History of Depression History of Depression Family History of Cystic Fibrosis Panic Disorder Calculus of Gallbladder Without Cholecystitis Without Obstruction Incidental Lung Nodule, > 3mm and < 8mm Morbid Obesity ([facility]) Iron Deficiency Gerd (Gastroesophageal Reflux Disease) Severe Obesity (Bmi >= 40) ([facility]) Current Outpatient Medications Medication Sig Dispense Refill [...] months. Debra Swain PA-C documented in this encounterK[facility]07-27-2022 History of Present illness Narrative* Asia Eduardo, PhD - 12/02/2021 8:17 AM EDT [facility] DEPARTMENT OF PSYCHIATRY AND PSYCHOLOGY/[facility] Bariatric Behavioral Services Progress Note December 02, 2021 Billing codes: ABDI MAIN 28092 Jayce CPT Code: 14150 Brief Emotional/Behavioral Assessment with scoring/documentation [id number] Virtual Group Psychotherapy Time initiated session: 12:00 [...] also previously provided to the patient via Voyando. Platform: [email or web address] Session #: 1 (with undersigned psychologist) Index [...] Asia Eduardo, Ph.D., Psychologist documented in this encounterK[facility]07-09-2022 Miscellaneous Notes* Telephone Encounter - Debra Swain PA-C - 11/14/2021 11:03 AM EDT [...] Provider: Debra SWAIN PA-C documented in this encounterK[facility]-2022 History of Present illness Narrative* Debra Swain [...] (BMI) of 60.0 to 69.9 in adult ([facility]) 10/07/2009 Esophagitis, unspecified High grade squamous intraepithelial lesion of cervix 01/01/2016 Iron deficiency 02/06/2021 Neck mass fatty deposit depression PAST SURGICAL HISTORY Procedure Laterality Date ESOPHAGOGASTRODUODENOSCOPY TRANSORAL DIAGNOSTIC 03/10/2012 EGD repeat 1 year FOOT SURGERY HX 2013 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)_*[place] 12/2015 TONSILLECTOMY PRIMARY/SECONDARY <AGE 11 VAGINAL [...] (Bmi) of 60.0 to 69.9 in Adult ([facility]) Spotting in History of Loop Electrosurgical Excision Procedure (Leep) of Cervix Affecting History of Labor History of Depression History of Depression Family History of Cystic Fibrosis Panic Disorder Calculus of Gallbladder Without Cholecystitis Without Obstruction Incidental Lung Nodule, > 3mm and < 8mm Morbid Obesity ([facility]) Iron Deficiency Gerd (Gastroesophageal Reflux Disease) Severe Obesity (Bmi >= 40) ([facility]) Current Outpatient Medications Medication Sig Dispense Refill [...] CREAM Debra Swain PA-C [facility] History of Present illness Narrative* Scooby Pollock MD - 10/01/2021 7:30 PM EDT The patient did not show up for this appointment. * Gavin Greenfield RD - 09/29/2021 7:28 AM EDT documented in this encounterK[facility] Nurse Note* Cathy Mac MA - 09/28/2021 [...] complications: skin rashes/infections. Patient is taking supplements. Catyh Mac MA documented in this encounterK[facility] History of Present illness Narrative* Pedro Jimenez MD - 08/12/2021 10:58 AM EDT Metabolic Surgery Postoperative Virtual Clinic Visit Name: Mary Fournier This visit was performed virtually via [email or web address] technology due to the COVID-19 epidemic as [...] & Bariatric Surgery Fellow [facility] [place] [facility] documented in this encounterK[facility] Instructions* Patient Instructions* Summer Bender RD - [...] in the AM, 2 in the PM) [email or web address] - [employer]: 1 Bariatric Multivitamin and Calcium Citrate (total of 1200- 1500 mg/day) * take calcium citrate separately from Multivitamin with iron at least 2 hours apart and 4 hours apart from additional calcium [email or web address] - Bariatric Choice: 4 Complete Multivitamins (chewables) per day [email or web address] - Bariatric Advantage: 2 Multivitamins and 3 Calcium Citrate Chewables per day * take calcium citrate separately from Multivitamin with iron at least 2 hours apart and 4 hours apart from additional calcium [email or web address] 2. Protein goal: 74-93 grams protein/day 3. Fluid goal: 64 ounces per day (no carbonation, caffeine, calories, alcohol) 4. Exercise goal: increase as tolerated to goal of 200 minutes/week combination cardiovascular and strength training exercise. 5. Practice mindful eating habits-take small portions, eat slowly, chew thoroughly Patient is to follow-up: 2 months to access adherence to goals, [phone] documented in this encounterK[facility] History of Present illness Narrative* Summer Bender [...] Rate: 2137 Energy needs for weight loss [id number] (10-15 maribel/kg current weight) Protein needs: 74-93 [...] and 4 hours apart from additional calcium [email or web address] - Bariatric Choice: 4 Complete Multivitamins (chewables) per day [email or web address] - Bariatric Advantage: 2 Multivitamins and 3 Calcium Citrate Chewables per day * take calcium citrate separately from Multivitamin with iron at least 2 hours apart and 4 hours apart from additional calcium [email or web address] 2. Protein goal: 74-93 grams protein/day 3. Fluid goal: 64 ounces per day (no carbonation, caffeine, calories, alcohol) 4. Exercise goal: increase as tolerated to goal of 200 minutes/week combination cardiovascular and strength training exercise. 5. Practice mindful eating habits-take small portions, eat slowly, chew thoroughly Patient is to follow-up: 2 months to access adherence to goals, [phone] Nutrition Monitoring & Evaluation: BMI < 50 Criteria: weight check Need for Follow up: 2 months Appointment Start Time: 11:45 AM Appointment End Time: 12:36 Time Spent on Consult: 51 minutes - Group Summer Bender RD documented in this encounterK[facility]25-[facility] History of Past illness Narrative* Problem Noted Date Resolved Date 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 01/01/2016 09/08/2020 Overview: S/p LÓPEZ bx, follow up PAP in 2017 was negative Difficulty walking 12/14/2012 10/22/2015 Fracture of 5th metatarsal 07/21/201210/21 Esophagitis, unspecified 03/10/2012 016 Weight gain 08/21/2009 10/22/2015 Obesity 08/21/2009 10/22/2015 documented as of this encounter (statuses as of 08/11/2021) [facility] History of Past illness Narrative* Problem Noted Date Resolved Date 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 01/01/2016 09/08/2020 Overview: S/p LEEP bx, follow up PAP in 2017 was negative Difficulty walking 12/14/2012 10/22/2015 Fracture of 5th metatarsal 07/21/201210/21 Esophagitis, unspecified 03/10/2012 016 Weight gain 08/21/2009 10/22/2015 Obesity 08/21/2009 10/22/2015 documented as of this encounter (statuses as of 08/12/2021) [place] [id number] History of Past illness Narrative* Problem Noted Date Resolved Date 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 01/01/2016 09/08/2020 Overview: S/p LEEP bx, follow up PAP in 2017 was negative Difficulty walking 12/14/2012 10/22/2015 Fracture of 5th metatarsal 07/21/201210/21 Esophagitis, unspecified 03/10/2012 016 Weight gain 08/21/2009 10/22/2015 Obesity 08/21/2009 10/22/2015 documented as of this encounter (statuses as of 10/01/2021) [address]25-2016 History of Past illness Narrative* Problem Noted Date Resolved Date 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 01/01/2016 09/08/2020 Overview: S/p LEEP bx, follow up PAP in 2017 was negative Difficulty walking 12/14/2012 10/22/2015 Fracture of 5th metatarsal 07/21/201210/21 Esophagitis, unspecified 03/10/2012 016 Weight gain 08/21/2009 10/22/2015 Obesity 08/21/2009 10/22/2015 documented as of this encounter (statuses as of 11/10/2021) [address]25-2016 History of Past illness Narrative* Problem Noted Date Resolved Date 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 01/01/2016 09/08/2020 Overview: S/p LEEP bx, follow up PAP in 2017 was negative Difficulty walking 12/14/2012 10/22/2015 Fracture of 5th metatarsal 07/21/201210/21 Esophagitis, unspecified 03/10/2012 016 Weight gain 08/21/2009 10/22/2015 Obesity 08/21/2009 10/22/2015 documented as of this encounter (statuses as of 11/14/2021) [facility] of [facility] illness Narrative* Problem Noted Date Resolved Date 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 01/01/2016 09/08/2020 Overview: S/p LEEP bx, follow up PAP in 2017 was negative Difficulty walking 12/14/2012 10/22/2015 Fracture of 5th metatarsal 07/21/201210/21 Esophagitis, unspecified 03/10/2012 016 Weight gain 08/21/2009 10/22/2015 Obesity 08/21/2009 10/22/2015 documented as of this encounter (statuses as of 11/14/2021) [place] [id number] History of Past illness Narrative* Problem Noted Date Resolved Date 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 01/01/2016 09/08/2020 Overview: S/p LEEP bx, follow up PAP in 2017 was negative Difficulty walking 12/14/2012 10/22/2015 Fracture of 5th metatarsal 07/21/201210/21 Esophagitis, unspecified 03/10/2012 016 Weight gain 08/21/2009 10/22/2015 Obesity 08/21/2009 10/22/2015 documented as of this encounter (statuses as of 12/07/2021) [facility] of [facility] illness Narrative* Problem Noted Date Resolved Date 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 01/01/2016 09/08/2020 Overview: S/p LEEP bx, follow up PAP in 2017 was negative Difficulty walking 12/14/2012 10/22/2015 Fracture of 5th metatarsal 07/21/201210/21 Esophagitis, unspecified 03/10/2012 016 Weight gain 08/21/2009 10/22/2015 Obesity 08/21/2009 10/22/2015 documented as of this encounter (statuses as of 02/11/2022) [place] [id number] History of Past illness Narrative* Problem Noted Date Resolved Date 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 01/01/2016 09/08/2020 Overview: S/p LEEP bx, follow up PAP in 2017 was negative Difficulty walking 12/14/2012 10/22/2015 Fracture of 5th metatarsal 07/21/201210/21 Esophagitis, unspecified 03/10/2012 016 Weight gain 08/21/2009 10/22/2015 Obesity 08/21/2009 10/22/2015 documented as of this encounter (statuses as of 03/10/2022) [address]25-2016 History of Past illness Narrative* Problem Noted Date Resolved Date 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 01/01/2016 09/08/2020 Overview: S/p LEEP bx, follow up PAP in 2017 was negative Difficulty walking 12/14/2012 10/22/2015 Fracture of 5th metatarsal 07/21/201210/21 Esophagitis, unspecified 03/10/2012 016 Weight gain 08/21/2009 10/22/2015 Obesity 08/21/2009 10/22/2015 documented as of this encounter (statuses as of 04/21/2022) [address]25-2016 History of Past illness Narrative* Problem Noted Date Resolved Date 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 01/01/2016 09/08/2020 Overview: S/p LEEP bx, follow up PAP in 2017 was negative Difficulty walking 12/14/2012 10/22/2015 Fracture of 5th metatarsal 07/21/201210/21 Esophagitis, unspecified 03/10/2012 016 Weight gain 08/21/2009 10/22/2015 Obesity 08/21/2009 10/22/2015 documented as of this encounter (statuses as of 04/22/2022) [address]25-2016 History of Past illness Narrative* Problem Noted Date Resolved Date 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 01/01/2016 09/08/2020 Overview: S/p LEEP bx, follow up PAP in 2017 was negative Difficulty walking 12/14/2012 10/22/2015 Fracture of 5th metatarsal 07/21/201210/21 Esophagitis, unspecified 03/10/2012 016 Weight gain 08/21/2009 10/22/2015 Obesity 08/21/2009 10/22/2015 documented as of this encounter (statuses as of 05/15/2022) [facility] Narrative* Problem Noted Date Resolved Date 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 01/01/2016 09/08/2020 Overview: S/p LEEP bx, follow up PAP in 2017 was negative Difficulty walking 12/14/2012 10/22/2015 Fracture of 5th metatarsal 07/21/201210/21 Esophagitis, unspecified 03/10/2012 016 Weight gain 08/21/2009 10/22/2015 Obesity 08/21/2009 10/22/2015 documented as of this encounter (statuses as of 06/07/2022) [facility] of [facility] illness Narrative* Problem Noted Date Resolved Date 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 01/01/2016 09/08/2020 Overview: S/p LEEP bx, follow up PAP in 2017 was negative Difficulty walking 12/14/2012 10/22/2015 Fracture of 5th metatarsal 07/21/201210/21 Esophagitis, unspecified 03/10/2012 016 Weight gain 08/21/2009 10/22/2015 Obesity 08/21/2009 10/22/2015 documented as of this encounter (statuses as of 09/21/2022) [place] [id number] History of Past illness Narrative* Problem Noted Date Diagnosed Date Resolved Date High grade squamous intraepi thelial lesion of cervix 01/01/2016 09/08/2020 Overview: S/p LEEP bx, follow up PAP in 2017 was negative Difficulty walking 12/14/2012 6 Fracture of 5th metatarsal 07/21/2012 0 10/22/2015 Esophagitis, unspecified 03/10/2012 Weight gain 08/21/2009 10/22/2015 Obesity 08/21/2009 10/22/2015 documented as of this encounter (statuses as of 11/19/2022) [facility] of [facility] illness Narrative* Problem Noted Date Diagnosed Date Resolved Date High grade squamous intraepi thelial lesion of cervix 01/01/2016 09/08/2020 Overview: S/p LEEP bx, follow up PAP in 2017 was negative Difficulty walking 12/14/2012 6 Fracture of 5th metatarsal 07/21/2012 0 10/22/2015 Esophagitis, unspecified 03/10/2012 Weight gain 08/21/2009 10/22/2015 Obesity 08/21/2009 10/22/2015 documented as of this encounter (statuses as of 12/24/2022) [facility] of Past illness Narrative* Problem Noted Date Diagnosed Date Resolved Date High grade squamous intraepi thelial lesion of cervix 01/01/2016 09/08/2020 Overview: S/p LEEP bx, follow up PAP in 2017 was negative Difficulty walking 12/14/2012 6 Fracture of 5th metatarsal 07/21/2012 0 10/22/2015 Esophagitis, unspecified 03/10/2012 Weight gain 08/21/2009 10/22/2015 Obesity 08/21/2009 10/22/2015 documented as of this encounter (statuses as of 02/11/2023) [facility] of Past illness Narrative* Problem Noted Date Diagnosed Date Resolved Date High grade squamous intraepi thelial lesion of cervix 01/01/2016 09/08/2020 Overview: S/p LEEP bx, follow up PAP in 2017 was negative Difficulty walking 12/14/2012 6 Fracture of 5th metatarsal 07/21/2012 0 10/22/2015 Esophagitis, unspecified 03/10/2012 Weight gain 08/21/2009 10/22/2015 Obesity 08/21/2009 10/22/2015 documented as of this encounter (statuses as of 03/13/2023) [facility] of [facility] illness Narrative* Problem Noted Date Diagnosed Date Resolved Date High grade squamous intraepi thelial lesion of cervix 01/01/2016 09/08/2020 Overview: S/p LEEP bx, follow up PAP in 2017 was negative Difficulty walking 12/14/2012 6 Fracture of 5th metatarsal 07/21/2012 0 10/22/2015 Esophagitis, unspecified 03/10/2012 Weight gain 08/21/2009 10/22/2015 Obesity 08/21/2009 10/22/2015 documented as of this encounter (statuses as of 07/08/2023) [facility] of Past illness Narrative* Problem Noted Date Diagnosed Date Resolved Date High grade squamous intraepi thelial lesion of cervix 01/01/2016 09/08/2020 Overview: S/p LEEP bx, follow up PAP in 2016 was negative Difficulty walking 12/14/2012 6 Fracture of 5th metatarsal 07/21/2012 0 10/22/2015 Esophagitis, unspecified 03/10/2012 Weight gain 08/21/2009 10/22/2015 Obesity 08/21/2009 10/22/2015 documented as of this encounter (statuses as of 07/14/2023) [facility] of Past illness Narrative* Problem Noted Date Diagnosed Date Resolved Date High grade squamous intraepi thelial lesion of cervix 01/01/2016 09/08/2020 Overview: S/p LEEP bx, follow up PAP in 2017 was negative Difficulty walking 12/14/2012 6 Fracture of 5th metatarsal 07/21/2012 0 10/22/2015 Esophagitis, unspecified 03/10/2012 Weight gain 08/21/2009 10/22/2015 Obesity 08/21/2009 10/22/2015 documented as of this encounter (statuses as of 08/15/2023) [facility] Diagnosis Impaired intestinal absorption- Primary Unspecified intestinal malabsorption S/P gastric bypass Bariatric surgery status Body mass index 50.0-59.9, adult (HCC) Body Mass Index 50.0-59.9, adult Dietary counseling and surveillance Dietary surveillance and counseling documented in this encounter [facility] note* Diagnosis Body mass index 50.0-59.9, adult (HCC)- Primary Body Mass Index 50.0-59.9, adult S/P gastric bypass Bariatric surgery status documented in this encounter [facility] note* Diagnosis NO SHOW- Primary documented in this encounter [facility] note* Diagnosis Hair loss- Primary Alopecia, unspecified Fatigue, unspecified type S/P bariatric surgery Bariatric surgery status Leg cramps Cramp of limb Cystic acne Other acne documented in this encounter [facility] note* Diagnosis Iron deficiency anemia, unspecified iron deficiency anemia type- Primary Folic acid deficiency Other B-complex deficiencies S/P bariatric surgery Bariatric surgery status documented in this encounter [facility] note* Diagnosis Psychological factors affecting medical condition- Primary Psychic factors associated with diseases classified elsewhere Postgastric surgery syndrome Postgastric surgery syndromes documented in this encounter [facility] note* Diagnosis Iron deficiency anemia, unspecified iron deficiency anemia type- Primary Folic acid deficiency Other B-complex deficiencies S/P bariatric surgery Bariatric surgery status Hair loss Alopecia, unspecified Fatigue, unspecified type Leg cramps Cramp of limb Cystic acne Other acne Cellulitis of skin Cellulitis and abscess of unspecified site documented in this encounter [facility] note* Diagnosis Acute non-recurrent sinusitis, unspecified location- Primary [facility] Diagnosis Upper respiratory symptom- Primary Other symptoms involving respiratory system and chest [facility]* Diagnosis Influenza A- Primary Influenza with other respiratory manifestations [facility]* Diagnosis Vertigo- Primary Dizziness and giddiness [facility]* Diagnosis S/P bariatric surgery- Primary Bariatric surgery status Hair loss Alopecia, unspecified Cystic acne Other acne Influenza A Influenza with other respiratory manifestations Loss of libido Decreased libido Prediabetes Other abnormal glucose Screening for lipid disorders documented in this encounter [facility] note* Diagnosis Onset Date Resolution Status Acute pharyngitis acute Contact with or suspected ex posure to other viral communicable disease acute [facility] Work Phone: Evaluation note* Diagnosis RUQ pain- Primary Abdominal pain, right upper quadrant Right flank pain Abdominal pain, unspecified site Nausea Nausea alone Epigastric pain Abdominal pain, epigastric Acute constipation Unspecified constipation [facility]* Diagnosis Panic disorder- Primary Panic disorder without agoraphobia Thyromegaly Goiter, unspecified Morbid obesity (HCC) Morbid obesity Gastroesophageal reflux disease, unspecified whether esophagitis present [facility]* Diagnosis Thyromegaly Goiter, unspecified [facility]* Diagnosis Onset Date Resolution Status Multiple thyroid nodules acu te 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's 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 Status post bariatric surgery chronic 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's 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 Status post bariatric surgery chronic Encounter for routine gynecological examination noneactive [facility] Work Phone: Evaluation note* Diagnosis Class 3 obesity (HCC)- Primary Dietary counseling and surveillance Dietary surveillance and counseling S/P gastric bypass Bariatric surgery status [facility]* Diagnosis S/P gastric bypass- Primary Bariatric surgery status Collin's thyroiditis Chronic lymphocytic thyroiditis [facility]* Diagnosis Thyroid nodule- Primary Nontoxic uninodular goiter Collin's thyroiditis Chronic lymphocytic thyroiditis [facility] Class 1 obesity- Primary Dietary counseling and surveillance Dietary surveillance and counseling S/P gastric bypass Bariatric surgery status Impaired intestinal absorption Unspecified intestinal malabsorption [facility]* Diagnosis Class 1 obesity- Primary [facility]* Diagnosis Tinea cruris- Primary Dermatophytosis of groin and perianal area Migraine with aura, not intractable, without status migrainosus Gastroesophageal reflux disease without esophagitis Esophageal reflux Other chronic pain [facility] Diagnosis Thyroid nodule Nontoxic uninodular goiter [facility] Diagnosis Pre-operative examination- Primary Preoperative examination, [...] Unspecified intestinal malabsorption documented in this encounter [facility] note* Diagnosis Pre-operative examination- Primary Preoperative examination, unspecified Morbid obesity (HCC) Morbid obesity Incidental lung nodule, > 3mm and < 8mm Solitary pulmonary nodule Iron deficiency Iron deficiency anemia, unspecified Panic disorder Panic disorder without agoraphobia Gastroesophageal reflux disease, unspecified whether esophagitis present S/P gastric bypass- Primary Bariatric surgery status documented in this encounter [facility] note* Diagnosis Pre-operative examination- Primary Preoperative examination, [...] constipation Unspecified constipation documented in this encounter [facility] note* Diagnosis Pre-operative examination- Primary Preoperative examination, unspecified Morbid obesity (HCC) Morbid obesity Incidental lung nodule, > 3mm and < 8mm Solitary pulmonary nodule Iron deficiency Iron deficiency anemia, unspecified Panic disorder Panic disorder without agoraphobia Gastroesophageal reflux disease, unspecified whether esophagitis present Collin's thyroiditis- Primary Chronic lymphocytic thyroiditis Thyroid nodule Nontoxic uninodular goiter documented in this encounter [facility] note* Diagnosis Pre-operative examination- Primary Preoperative examination, unspecified Morbid obesity (HCC) Morbid obesity Incidental lung nodule, > 3mm and < 8mm Solitary pulmonary nodule Iron deficiency Iron deficiency anemia, unspecified Panic disorder Panic disorder without agoraphobia Gastroesophageal reflux disease, unspecified whether esophagitis present Class 1 obesity- Primary documented in this encounter [facility] note* Diagnosis Pre-operative examination- Primary Preoperative examination, unspecified Morbid obesity (HCC) Morbid obesity Incidental lung nodule, > 3mm and < 8mm Solitary pulmonary nodule Iron deficiency Iron deficiency anemia, unspecified Panic disorder Panic disorder without agoraphobia Gastroesophageal reflux disease, unspecified whether esophagitis present Bacterial sinusitis- Primary Unspecified sinusitis (chronic) documented in this encounter [facility] note* Diagnosis Pre-operative examination- Primary Preoperative examination, [...] Unspecified intestinal malabsorption [facility]* Diagnosis Pre-operative examination- Primary Preoperative examination, unspecified Morbid obesity (HCC) Morbid obesity Incidental lung nodule, > 3mm and < 8mm Solitary pulmonary nodule Iron deficiency Iron deficiency anemia, unspecified Panic disorder Panic disorder without agoraphobia Gastroesophageal reflux disease, unspecified whether esophagitis present S/P gastric bypass- Primary Bariatric surgery status documented in this encounter [facility] note* Diagnosis Pre-operative examination- Primary Preoperative examination, unspecified Morbid obesity (HCC) Morbid obesity Incidental lung nodule, > 3mm and < 8mm Solitary pulmonary nodule Iron deficiency Iron deficiency anemia, unspecified Panic disorder Panic disorder without agoraphobia Gastroesophageal reflux disease, unspecified whether esophagitis present Hypoglycemia after GI (gastrointestinal) surgery- Primary Other and unspecified postsurgical nonabsorption documented in this encounter [facility] note* Diagnosis Pre-operative examination- Primary Preoperative examination, unspecified Morbid obesity (HCC) Morbid obesity Incidental lung nodule, > 3mm and < 8mm Solitary pulmonary nodule Iron deficiency Iron deficiency anemia, unspecified Panic disorder Panic disorder without agoraphobia Gastroesophageal reflux disease, unspecified whether esophagitis present Hypoglycemia after GI (gastrointestinal) surgery- Primary Other and unspecified postsurgical nonabsorption documented in this encounter [facility] note* Diagnosis Pre-operative examination- Primary Preoperative examination, [...] Unspecified intestinal malabsorption documented in this encounter [facility] note* Diagnosis Pre-operative examination- Primary Preoperative examination, [...] unspecified postsurgical nonabsorption [facility] noteNo assessment information availableBlBaldwin Park [facility] Work Phone: Evaluation note* Diagnosis Pre-operative examination- [...] Unspecified intestinal malabsorption [facility] Diagnostic Procedure Only (Routine) - Closed Specialty Diagnoses / Procedures Referred By Contac t Referred To Contact XR IMAGING Diagnoses Right flank pain RUQ pain Epigastric pain Acute constipation Procedures XR ABDOMEN 1V SUPINE RADIOLOGIC EXAM ABDOMEN 1 VIEW Caroline Miller PA-C [address] [place] [address] Xr Imaging Referral ID Status Reason Start Date Expiration Date V isits Requested Visits Authorized [id number] Closed Auto-Generate d Referral 09/21/2022 10/21/2023 1 1 * Diagnostic Procedure Only (Routine) - Authorized Specialty Diagnoses / Procedures Referred By Contac t Referred To Contact US IMAGING Diagnoses Right flank pain Procedures US ABD RIGHT UPPER QUADRANT US ABDOMINAL REAL TIME W/IMAGE LIMITED Caroline Miller PA-C [address] [place] [address] Us Imaging Referral ID Status Reason Start Date Expiration Date Visits Requested Visits Authorized [id number] Authorized Auto-Generat ed Referral 09/21/2022 10/21/2023 1 1 [facility] for referral (narrative)* Diagnostic Procedure Only (Routine) - Authorized Specialty Diagnoses / Procedures Referred By Contac t Referred To Contact US IMAGING Diagnoses Thyromegaly Procedures US THYROID/PARATHYROID US SOFT TISSUE HEAD & NECK REAL TIME IMGE Debra Doshi PA-C [address] [place] [address] Us Imaging Referral ID Status Reason Start Date Expiration Date Visits Requested Visits Authorized [id number] Authorized Auto-Generat ed Referral 11/18/2022 12/18/2023 1 1 [facility] for referral (narrative)* Diagnostic Procedure Only (Routine) - Closed Specialty Diagnoses / Procedures [facility] To Contact US IMAGING Diagnoses Thyromegaly Procedures US THYROID/PARATHYROID US SOFT TISSUE HEAD & NECK REAL TIME IMGE Debra Doshi PA-C [address] [place] [address] [place] [address] Referral ID Status Reason Start Date Expiration Date V isits Requested Visits Authorized [id number] Closed Auto-Generate d Referral 11/18/2022 12/18/2023 1 1 [facility] for referral (narrative)* Diagnostic Procedure Only (Routine) - Authorized Specialty Diagnoses / Procedures [facility] Ref[facility] To Contact US IMAGING Diagnoses Thyroid nodule Procedures US THYROID/PARATHYROID US SOFT TISSUE HEAD & NECK REAL TIME IMGE Donita Thompson MD [address] [facility] [address] [place] [address] Referral ID Status Reason Start Date Expiration Date Visits Requested Visits Authorized [id number] Authorized Auto-Generat ed Referral 08/15/2023 09/13/2024 1 1 [facility] Diagnostic Procedure Only (Routine) - Closed Specialty Diagnoses / Procedures Referred By Contac t Referred To Contact XR IMAGING Diagnoses Right flank pain RUQ pain Epigastric pain Acute constipation Procedures XR ABDOMEN 1V SUPINE RADIOLOGIC EXAM ABDOMEN 1 VIEW Caroline Miller PA-C [address] [place] [address] [place] [address] Referral ID Status Reason Start Date Expiration Date V isits Requested Visits Authorized [id number] Closed Auto-Generate d Referral 09/21/2022 10/21/2023 1 1 [facility] for referral (narrative)* Diagnostic Procedure Only (Routine) - Authorized Specialty Diagnoses / Procedures Referred By Contac t Referred To Contact US IMAGING Diagnoses Thyroid nodule Procedures US THYROID/PARATHYROID US SOFT TISSUE HEAD & NECK REAL TIME IMGE Donita Thompson MD [address] [place] [address] [place] [address] Referral ID Status Reason Start Date Expiration Date Visits Requested Visits Authorized [id number] Authorized Auto-Generat ed Referral 12/18/2024 03/15/2025 1 1 [facility] for referral (narrative)No reason for referral information availableSharp [facility] Work Phone: Reason for visit Narrative* Diagnostic Procedure Only (Routine) - Closed Specialty Diagnoses / Procedures Referred By Contac t Referred To Contact XR IMAGING Diagnoses Right flank pain RUQ pain Epigastric pain Acute constipation Procedures XR ABDOMEN 1V SUPINE RADIOLOGIC EXAM ABDOMEN 1 VIEW Caroline Miller PA-C [address] [place] [address] [place] [address] Referral ID Status Reason Start Date Expiration Date V isits Requested Visits Authorized [id number] Closed Auto-Generate d Referral 09/21/2022 10/21/2023 1 1 [facility] Summary Purpose Family History Relationship Condition Age at Onset Recorded Date/T kalen grandmother Malignant neoplasm Unknown Relationship Condition Age at Onset Recorded Date/T kalen grandmother Malignant neoplasm Unknown Anxiety Unknown Osteoporosis Unknown Disorder of thyroid Unknown father Hemorrhagic disorder Unknown Disorder of liver Unknown mother Complication of anesthesia Unknown Diabetes mellitus Unknown Hypertension Unknown Advance Directives Documents on File Type Date Recorded Patient Etl Lead Expl anation Advance Directive(s) 06/12/2021 1:25 PM Advance Directive Response Recorded Date/ Time Living Will No September 20, 2022 5 :12pm Power of Lot Technician No September 20, 2022 5:12pm Advance Directive Response Recorded Date/ Time Living Will No September 20, 2022 4 :12pm Power of Lot Technician No September 20, 2022 4:12pm Advance Directive Response Recorded Date/ Time Living Will No September 20, 2022 5 :12pm Do you have a Healthcare Power of Lot Technician? 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 Reason for Visit Multiple thyroid [...] Collin's thyroiditis Procedures CONSULT TO ENDOCRINOLOGY OFFICE/OUTPATIENT [facility] 60 MINUTES Ping Prince, AVIATION SAFETY TECHNICIAN.CROZER OPERATOR [address] [place] [address] Referral ID Status Reason Start Date Expiration Date Visits Requested Visits Authorized [id number] Authorized PCP Requested Referral 07/14/2023 10/12/2023 1 1 Additional Source Comments INFORMATION SOURCE (unrecogn ized section and content) DATE CREATED AUTHOR 10/27/2017 [facility] ([place]) DATE CREATED AUTHOR AUTHOR'S ORGANIZ ATION 12/02/2017 [facility] DATE CREATED AUTHOR AUTHOR'S ORGANIZ ATION 07/18/2018 DATE CREATED AUTHOR AUTHOR'S ORGANIZ ATION 09/22/2024 [facility] DATE CREATED AUTHOR AUTHOR'S ORGANIZ ATION 11/05/2024 [facility] Source Comments (unrecognize d section and content) In the event this informatio n is protected by the Federal Confidentiality of Alcohol and Drug Abuse Patient Records regulations: The Federal rules restrict any use of the information to criminally investigate or prosecute any alcohol or drug abuse patient.[facility] the event this information is protected by the Federal Confidentiality of Alcohol and Drug Abuse Patient Records regulations: The Federal rules restrict any use of the information to criminally investigate or prosecute any alcohol or drug abuse patient.[facility] the event this information is protected by the Federal Confidentiality of Alcohol and Drug Abuse Patient Records regulations: The Federal rules restrict any use of the information to criminally investigate or prosecute any alcohol or drug abuse patient.[facility]burg[facility] the event this information is protected by the Federal Confidentiality of Alcohol and Drug Abuse Patient Records regulations: The Federal rules restrict any use of the information to criminally investigate or prosecute any alcohol or drug abuse patient.[facility]burg[facility] the event this information is protected by the Federal Confidentiality of Alcohol and Drug Abuse Patient Records regulations: The Federal rules restrict any use of the information to criminally investigate or prosecute any alcohol or drug abuse patient.[facility] the event this information is protected by the Federal Confidentiality of Alcohol and Drug Abuse Patient Records regulations: The Federal rules restrict any use of the information to criminally investigate or prosecute any alcohol or drug abuse patient.[facility] the event this information is protected by the Federal Confidentiality of Alcohol and Drug Abuse Patient Records regulations: The Federal rules restrict any use of the information to criminally investigate or prosecute any alcohol or drug abuse patient.[facility] the event this information is protected by the Federal Confidentiality of Alcohol and Drug Abuse Patient Records regulations: The Federal rules restrict any use of the information to criminally investigate or prosecute any alcohol or drug abuse patient.[facility]burg[facility] the event this information is protected by the Federal Confidentiality of Alcohol and Drug Abuse Patient Records regulations: The Federal rules restrict any use of the information to criminally investigate or prosecute any alcohol or drug abuse patient.[facility]burg[facility] the event this information is protected by the Federal Confidentiality of Alcohol and Drug Abuse Patient Records regulations: The Federal rules restrict any use of the information to criminally investigate or prosecute any alcohol or drug abuse patient.[facility]burg[facility] the event this information is protected by the Federal Confidentiality of Alcohol and Drug Abuse Patient Records regulations: The Federal rules restrict any use of the information to criminally investigate or prosecute any alcohol or drug abuse patient.[facility]burg[facility] the event this information is protected by the Federal Confidentiality of Alcohol and Drug Abuse Patient Records regulations: The Federal rules restrict any use of the information to criminally investigate or prosecute any alcohol or drug abuse patient.[facility] the event this information is protected by the Federal Confidentiality of Alcohol and Drug Abuse Patient Records regulations: The Federal rules restrict any use of the information to criminally investigate or prosecute any alcohol or drug abuse patient.[facility] the event this information is protected by the Federal Confidentiality of Alcohol and Drug Abuse Patient Records regulations: The Federal rules restrict any use of the information to criminally investigate or prosecute any alcohol or drug abuse patient.[facility] the event this information is protected by the Federal Confidentiality of Alcohol and Drug Abuse Patient Records regulations: The Federal rules restrict any use of the information to criminally investigate or prosecute any alcohol or drug abuse patient.[facility] the event this information is protected by the Federal Confidentiality of Alcohol and Drug Abuse Patient Records regulations: The Federal rules restrict any use of the information to criminally investigate or prosecute any alcohol or drug abuse patient.[facility] the event this information is protected by the Federal Confidentiality of Alcohol and Drug Abuse Patient Records regulations: The Federal rules restrict any use of the information to criminally investigate or prosecute any alcohol or drug abuse patient.[facility] the event this information is protected by the Federal Confidentiality of Alcohol and Drug Abuse Patient Records regulations: The Federal rules restrict any use of the information to criminally investigate or prosecute any alcohol or drug abuse patient.[facility]burg[facility] the event this information is protected by the Federal Confidentiality of Alcohol and Drug Abuse Patient Records regulations: The Federal rules restrict any use of the information to criminally investigate or prosecute any alcohol or drug abuse patient.[facility] the event this information is protected by the Federal Confidentiality of Alcohol and Drug Abuse Patient Records regulations: The Federal rules restrict any use of the information to criminally investigate or prosecute any alcohol or drug abuse patient.[facility]burg[facility] the event this information is protected by the Federal Confidentiality of Alcohol and Drug Abuse Patient Records regulations: The Federal rules restrict any use of the information to criminally investigate or prosecute any alcohol or drug abuse patient.[facility]burg[facility] the event this information is protected by the Federal Confidentiality of Alcohol and Drug Abuse Patient Records regulations: The Federal rules restrict any use of the information to criminally investigate or prosecute any alcohol or drug abuse patient.[facility] the event this information is protected by the Federal Confidentiality of Alcohol and Drug Abuse Patient Records regulations: The Federal rules restrict any use of the information to criminally investigate or prosecute any alcohol or drug abuse patient.[facility]burg[facility] the event this information is protected by the Federal Confidentiality of Alcohol and Drug Abuse Patient Records regulations: The Federal rules restrict any use of the information to criminally investigate or prosecute any alcohol or drug abuse patient.[facility] the event this information is protected by the Federal Confidentiality of Alcohol and Drug Abuse Patient Records regulations: The Federal rules restrict any use of the information to criminally investigate or prosecute any alcohol or drug abuse patient.[facility]burg[facility] the event this information is protected by the Federal Confidentiality of Alcohol and Drug Abuse Patient Records regulations: The Federal rules restrict any use of the information to criminally investigate or prosecute any alcohol or drug abuse patient.[facility] the event this information is protected by the Federal Confidentiality of Alcohol and Drug Abuse Patient Records regulations: The Federal rules restrict any use of the information to criminally investigate or prosecute any alcohol or drug abuse patient.[facility] the event this information is protected by the Federal Confidentiality of Alcohol and Drug Abuse Patient Records regulations: The Federal rules restrict any use of the information to criminally investigate or prosecute any alcohol or drug abuse patient.[facility]burg[facility] the event this information is protected by the Federal Confidentiality of Alcohol and Drug Abuse Patient Records regulations: The Federal rules restrict any use of the information to criminally investigate or prosecute any alcohol or drug abuse patient.[facility] the event this information is protected by the Federal Confidentiality of Alcohol and Drug Abuse Patient Records regulations: The Federal rules restrict any use of the information to criminally investigate or prosecute any alcohol or drug abuse patient.[facility]burg[facility] the event this information is protected by the Federal Confidentiality of Alcohol and Drug Abuse Patient Records regulations: The Federal rules restrict any use of the information to criminally investigate or prosecute any alcohol or drug abuse patient.[facility] the event this information is protected by the Federal Confidentiality of Alcohol and Drug Abuse Patient Records regulations: The Federal rules restrict any use of the information to criminally investigate or prosecute any alcohol or drug abuse patient.[facility] the event this information is protected by the Federal Confidentiality of Alcohol and Drug Abuse Patient Records regulations: The Federal rules restrict any use of the information to criminally investigate or prosecute any alcohol or drug abuse patient.[facility] the event this information is protected by the Federal Confidentiality of Alcohol and Drug Abuse Patient Records regulations: The Federal rules restrict any use of the information to criminally investigate or prosecute any alcohol or drug abuse patient.[facility] the event this information is protected by the Federal Confidentiality of Alcohol and Drug Abuse Patient Records regulations: The Federal rules restrict any use of the information to criminally investigate or prosecute any alcohol or drug abuse patient.[facility]burg[facility] the event this information is protected by the Federal Confidentiality of Alcohol and Drug Abuse Patient Records regulations: The Federal rules restrict any use of the information to criminally investigate or prosecute any alcohol or drug abuse patient.[facility] the event this information is protected by the Federal Confidentiality of Alcohol and Drug Abuse Patient Records regulations: The Federal rules restrict any use of the information to criminally investigate or prosecute any alcohol or drug abuse patient.[facility] the event this information is protected by the Federal Confidentiality of Alcohol and Drug Abuse Patient Records regulations: The Federal rules restrict any use of the information to criminally investigate or prosecute any alcohol or drug abuse patient.[facility] the event this information is protected by the Federal Confidentiality of Alcohol and Drug Abuse Patient Records regulations: The Federal rules restrict any use of the information to criminally investigate or prosecute any alcohol or drug abuse patient.[facility]In the event this information is protected by the Federal Confidentiality of Alcohol and Drug Abuse Patient Records regulations: The Federal rules restrict any use of the information to criminally investigate or prosecute any alcohol or drug abuse patient.[facility] the event this information is protected by the Federal Confidentiality of Alcohol and Drug Abuse Patient Records regulations: The Federal rules restrict any use of the information to criminally investigate or prosecute any alcohol or drug abuse patient.[facility]In the event this information is protected by the Federal Confidentiality of Alcohol and Drug Abuse Patient Records regulations: The Federal rules restrict any use of the information to criminally investigate or prosecute any alcohol or drug abuse patient.[facility] the event this information is protected by the Federal Confidentiality of Alcohol and Drug Abuse Patient Records regulations: The Federal rules restrict any use of the information to criminally investigate or prosecute any alcohol or drug abuse patient.[facility] the event this information is protected by the Federal Confidentiality of Alcohol and Drug Abuse Patient Records regulations: The Federal rules restrict any use of the information to criminally investigate or prosecute any alcohol or drug abuse patient.[facility] Reason for Visit (unrecogniz ed section and [...] R ear inf ection; was seen at [facility] on 04/19 and started on antibiotic (Augmentin 875mg); fever last evening of 103.5 Reason Comments Results Reason Comments ER F/U [facility] ER FU 09/20/22 Reason Comments 6 Month Exam Reason Comments Returning Patient's Call Reason Comments Radiology US Specialty Diagnoses / Procedures Referred By Fabi t Referred To Contact US IMAGING Diagnoses Thyromegaly Procedures US THYROID/PARATHYROID US SOFT TISSUE HEAD & NECK REAL TIME IMGE DOCDebra Myrick PA-C [address] [place] [address] Us Imaging [id number] Referral ID Status Reason Start Date Expiration Date V isits Requested Visits Authorized [id number] Closed Auto-Generate d Referral 11/18/2022 12/18/2023 1 1 Reason Comments Patient Education Reassessment Reason Comments Follow Up Reason Comments Thyroid Problem Collin's Specialty Diagnoses / Procedures Referred By Contac t 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 Procedures CONSULT TO ENDOCRINOLOGY OFFICE/OUTPATIENT [facility] 60 MINUTES Ping Prince, AVIATION SAFETY TECHNICIAN.CROZER OPERATOR [address] [place] [id number] Referral ID Status Reason Start Date Expiration Date V isits Requested Visits Authorized [id number] Closed PCP Requested Referral 07/14/2023 10/12/2023 1 1 Reason Comments Reassessment Patient Education Reason Comments Follow Up Reason Comments Physical Reason Comments Radiology US Specialty Diagnoses / Procedures Referred By Contac t Referred To Contact US IMAGING Diagnoses Thyroid nodule Procedures US THYROID/PARATHYROID US SOFT TISSUE HEAD & NECK REAL TIME IMGE Donita Thompson MD [address] [place] [address] Us Imaging [id number] Referral ID Status Reason Start Date Expiration Date V isits Requested Visits Authorized [id number] Closed Auto-Generate d Referral 08/15/2023 09/13/2024 1 1 Reason Comments Thyroid Problem Thyroid Nodule Reason Comments Nasal Congestion drainage, headache, ear pain and cough x 1 month Reason Comments Low Blood Sugar Reason Comments Appointment Called patient and l eft voicemail to notify of scheduled appointment Reason Comments Medical Weight Management Low Blood Sugar Follow Up Care Teams (unrecognized sec tion and content) Atomizer Assembler Relationship Specialty Start Date End Date Asif Haque MD [address] [place] [address] PCP - General Family Practice 02/16/12 Atomizer Assembler Relationship Specialty Start Date End Date Asif Haque MD [address] [place] [address] PCP - General Family Practice 02/16/12 Atomizer Assembler Relationship Specialty Start Date End Date Asif Haque MD [address] [place] [address] PCP - General Family Practice 02/16/12 Atomizer Assembler Relationship Specialty Start Date End Date Asif Haque MD [address] [place] [address] PCP - General Family Practice 02/16/12 Atomizer Assembler Relationship Specialty Start Date End Date Asif Haque MD [address] [place] [address], [place] [address] PCP - General Family Practice 02/16/12 Atomizer Assembler Relationship Specialty Start Date End Date sAif Haque MD [address] [place] [address], [place] [address] PCP - General Family Practice 02/16/12 Atomizer Assembler Relationship Specialty Start Date End Date Asif Haque MD [address] [place] [address] PCP - General Family Practice 02/16/12 Atomizer Assembler Relationship Specialty Start Date End Date Asif Haque MD [address] [place] [address] PCP - General Family Medicine 02/16/12 Atomizer Assembler Relationship Specialty Start Date End Date Asif Haque MD [address] [place] [address] PCP - General Family Medicine 02/16/12 Atomizer Assembler Relationship Specialty Start Date End Date Asif Haque MD [address] [place] [address], [place] [address] PCP - General Family Medicine 02/16/12 Atomizer Assembler Relationship Specialty Start Date End Date sAif Haque MD [address] [place] [address] PCP - General Family Medicine 02/16/12 Atomizer Assembler Relationship Specialty Start Date End Date Asif Haque MD [address] [place] [address] PCP - General Family Medicine 02/16/12 Atomizer Assembler Relationship Specialty Start Date End Date Asif Haque MD [address] [place], [place] [address] PCP - General Family Medicine 02/16/12 Team [...] Dr. Ranjit Smalls MD Emergency Provider Active Atomizer Assembler Relationship Specialty Start Date End Date Asif Haque MD [address] [place], [place] [id number] PCP - General Family Medicine 02/16/12 Atomizer Assembler Relationship Specialty Start Date End Date Debra Swain PA-C [address] [place] [address] PCP - General Family Medicine 11/18/22 Atomizer Assembler Relationship Specialty Start Date End Date Debra Swain PA-C [address] [place], [place] [address]661 PCP - General Family Medicine 11/18/22 Atomizer Assembler Relationship Specialty Start Date End Date Debra Swain PA-C [address] [place] [address] PCP - General Family Medicine 11/18/22 Atomizer Assembler Relationship Specialty Start Date End Date Debra Swain PA-C [address] [place] [address] PCP - General Family Medicine 11/18/22 Team [...] Dr. Felice Centeno MD Attending Provider Active Atomizer Assembler Relationship Specialty Start Date End Date Debra Swain PA-C [address] [place] [address] PCP - General Family Medicine 11/18/22 Atomizer Assembler Relationship Specialty Start Date End Date Debra Swain PA-C [address] [place] [address] PCP - General Family Medicine 11/18/22 Atomizer Assembler Relationship Specialty Start Date End Date Debra Swain PA-C [address] [place] [address] PCP - General Family Medicine 11/18/22 Atomizer Assembler Relationship Specialty Start Date End Date Debra Swain PA-C [address] [place] [address] PCP - General Family Medicine 11/18/22 Atomizer Assembler Relationship Specialty Start Date End Date Debra Swain PA-C [address] [place] [address] PCP - General Family Medicine 11/18/22 Atomizer Assembler Relationship Specialty Start Date End Date Debra Swain PA-C [address] [place] [address] PCP - General Family Medicine 11/18/22 Atomizer Assembler Relationship Specialty Start Date End Date Debra Swain PA-C [address] [place] [address] PCP - General Family Medicine 11/18/22 Atomizer Assembler Relationship Specialty Start Date End Date Debra Swain PA-C [address] [place] [address] PCP - General Family Medicine 11/18/22 Atomizer Assembler Relationship Specialty Start Date End Date Debra Swain PA-C [address] [place] [address] PCP - General Family Medicine 11/18/22 Atomizer Assembler Relationship Specialty Start Date End Date Asif Haque MD [address] [place] [address] PCP - General Family Medicine 02/16/12 11/17/22 Atomizer Assembler Relationship Specialty Start Date End Date Asif Haque MD [address] [place] [address] PCP - General Family Medicine 02/14/24 Atomizer Assembler Relationship Specialty Start Date End Date Asif Haque MD [address] [place] [address] PCP - General Family Medicine 02/14/24 Atomizer Assembler Relationship Specialty Start Date End Date Asif Haque MD [address] [place], [place] [address] PCP - General Family Medicine 02/14/24 Atomizer Assembler Relationship Specialty Start Date End Date Asif Haque MD [address] [place], [place] [address] PCP - General Family Medicine 02/14/24 Atomizer Assembler Relationship Specialty Start Date End Date Asif Haque MD [address] [place], [place] [address] PCP - General Family Medicine 02/14/24 Nettie Canales APRN.CROZER OPERATOR [address] [place] [address] Care Coordinator Family Medicine 04/16/24 Kiera Carson AVIATION SAFETY TECHNICIAN.CROZER OPERATOR [address] [place] [address] Care Coordinator Family Medicine 04/16/24 Atomizer Assembler Relationship Specialty Start Date End Date Asif Haque MD [address] [place], [place] [address] PCP - General Family Medicine 02/14/24 Nettie Canales AVIATION SAFETY TECHNICIAN.CROZER OPERATOR [address] [place] [address] Care Coordinator Family Medicine 04/16/24 Kiera Carson AVIATION SAFETY TECHNICIAN.CROZER OPERATOR [address] [place], [place] [address] [phone] Care Coordinator Family Medicine 04/16/24 Atomizer Assembler Relationship Specialty Start Date End Date Asif Haque MD [address] [facility] [place] [address] PCP - General Family Medicine 02/14/24 Nettie Canales APRN.CROZER OPERATOR [address] [facility] [place] [address] [facility] [place] 04/16/24 Kiera Carson APRN.CROZER OPERATOR [address] [facility] [place] [address] [facility] 04/16/24 Atomizer Assembler Relationship Specialty Start Date End Date Asif Haque MD [address] [place] [address] PCP - General Family Medicine 02/14/24 Nettie Canales APRN.CROZER OPERATOR [address] [place] [address] [facility] [place] 04/16/24 Kiera Carson APRN.CROZER OPERATOR [address] [facility] [place] [address] [facility] 04/16/24 Atomizer Assembler Relationship Specialty Start Date End Date Asif Haque MD [address] [place] [place] [address] PCP - General Family Medicine 02/14/24 Nettie Canales APRN.CROZER OPERATOR [address] [facility] [address] Care Coordinator Family Medicine 04/16/24 Kiera Carson APRN.CROZER OPERATOR [address] [place] [address] [facility] 04/16/24 Atomizer Assembler Relationship Specialty Start Date End Date Asif Haque MD [address] [place] [address] PCP - General Family Medicine 02/14/24 Nettie Canales, AVIATION SAFETY TECHNICIAN.CROZER OPERATOR [address] [facility] [place] [address] [facility] [place] 04/16/24 Kiera Carson AVIATION SAFETY TECHNICIAN.CROZER OPERATOR [address] [place] [address] [facility] 04/16/24 Atomizer Assembler Relationship Specialty Start Date End Date Asif Haque MD [address] [place] [address] PCP - General Family Medicine 02/14/24 Nettie Canales, AVIATION SAFETY TECHNICIAN.CROZER OPERATOR [address] [facility] [place] [address] [facility] 04/16/24 Kiera Carson AVIATION SAFETY TECHNICIAN.CROZER OPERATOR [address] [place] [address] [facility] 04/16/24 Team Status: Inactive Member Role Status [...] 2024 End: September 21, 2024 Dr. Asif aHque MD Referring Provider Active Start: September 21, 2024 End: September 21, 2024 Charles CALLES, PA Attending Provider Active Sta rt: September 21, 2024 End: September 21, 2024 Atomizer Assembler Relationship Specialty Start Date End Date Asif Haque MD [address] [place], [place] [address] PCP - General Family Medicine 02/14/24 Nettie Canales APRN.CROZER OPERATOR [address] [place], [place] [address] [facility] 04/16/24 Kiera Carson AVIATION SAFETY TECHNICIAN.CROZER OPERATOR [address] [place] [address] [facility] 04/16/24 Atomizer Assembler Relationship Specialty Start Date End Date Asif Haque MD [address] [place], [place] [address] PCP - General Family Medicine 02/14/24 Nettie Canales AVIATION SAFETY TECHNICIAN.CROZER OPERATOR [address] [place], [place] [address] [facility] 04/16/24 Kiera Carson AVIATION SAFETY TECHNICIAN.CROZER OPERATOR [address] [place], [place] [address] [facility] 04/16/24 Goals (unrecognized section and content) Goals [...] BE BASED ON THE PRIMARY CLINICAL RECORDS. [facility] [employer] [facility] provides no warranty or guarantee of the accuracy or completeness of information in this document.
[2024-11-07] MEDS: 0.9% Normal Saline (1000mL) 1,000 ML 999 ML IV ×2 (04:00→04:04)
[2024-11-07] MEDS: Ketorolac 30 MG/ML Syringe IV (04:01)
[2024-11-07 04:02] LABS: Hematocrit 41.0 % (37-47); Hemoglobin 13.7 g/dL (12.0-15.0); Immature Granulocytes Count 0.030 X10^3/uL (0.0-0.0); Mean Corp Hgb Conc 33.4 g/dL (32-36); Mean Corpuscular Volume 87.8 fL (81-99); Mean Platelet Vol. 9.7 fl (6.2-12.0); NRBC Flagged by Analyzer 0 % (0-5); Platelet Count 239 K/mm3 (150-450); RBC Distribution Width CV 13.5 % (11.6-14.6); RBC Distribution Width SD 43.2 fl (35.1-43.9); Red Blood Count 4.67 M/mm3 (4.2-5.4); White Blood Count 8.2 K/mm3 (4.4-11.0)
[2024-11-07 04:28] LABS: AST(SGOT) 21 U/L (<=31); Alanine Aminotransfer ALT/SGPT 21 U/L (<=34); Albumin, Serum 3.9 g/dL (3.5-5.0); Alkaline Phosphatase 80 U/L (35-104); Anion Gap 12 (5-15); BUN 14 mg/dL (4-19); BUN/Creat Ratio 14.4 RATIO (10-20); Bilirubin, Direct 0.30 mg/dL (0.00-0.30); Calcium,Total 8.9 mg/dL (7.6-11.0); Carbon Dioxide 22.8 mmol/L (21.0-32.0); Chloride 103 mmol/L (98-108); Estimated Creatinine Clearance 102.42 ml/min (50-250); Globulin 3.0 g/dL (2.2-4.2); Glucose 100 mg/dL (70-99); Lipase 35 U/L (13-75); Magnesium 1.7 mg/dL (1.5-2.2); Potassium 3.8 mmol/L (3.3-5.1)
[2024-11-07 05:07] VITALS: BP 129/87; PULSE 101; RESP 18; O2SAT 95
--- NOTE | 2024-11-07 05:25 | EX.ED.DYSGE1 ---
HPI History of Present Illness Chief Complaint: Nausea/Vomiting/Diarrhea Informant: patient and spouse/S.O. Narrative Narrative: Patient is a 34-year-old female who reports 2 days of subjective fevers and chills with generalized abdominal discomfort and bouts of nausea vomiting and diarrhea. She denies any known sick contact. She denies any recent antibiotic use or travel outside the country. She states that she cannot keep food or fluid down. She denies any blood or dark discoloration to her stool or emesis. She states that she is concern for dehydration and underlying infection based on her symptoms and therefore comes in for evaluation [facility] Medical History Acute bronchitis, unspecified Collin's thyroiditis Wears glasses Depression Anxiety Low iron Easy bruising Migraine headache Heartburn Former smoker Leg cramps History of irregular heartbeat Abnormal uterine bleeding (AUB) Shoulder pain SOB (shortness of breath) History of pre-eclampsia Home Medications ?Medication ?Instructions ?Recorded ?Last Taken ?Type glucagon 3 mg/actuation nasal mg intranasal 09/21/24 Unknown History spray (Baqsimi) acarbose 25 mg tablet 50 mg PO TID 11/07/24 Unknown History Held on 11/07/24. Instructions: not been taking dicyclomine 20 mg tablet 20 mg PO 4X/DAY PRN Abdominal 11/07/24 Unknown Rx bloating/spasm #28 tabs ondansetron 4 mg disintegrating 4 mg PO TID PRN nausea and 11/07/24 Unknown Rx tablet vomiting #21 tabs Allergy/AdvReac Type Severity Reaction Status Date / Time metoprolol Allergy Severe Hives Verified 11/07/24 03:07 oxycodone HCl (From Percocet) Allergy Severe Hives Verified 11/07/24 03:07 hydrocodone bitartrate (From Allergy Intermediate Hives Verified 11/07/24 03:07 Vicodin) latex Allergy Mild Rash Verified 11/07/24 03:07 dicloxacillin Allergy Hives Verified 11/07/24 03:07 Family History Grandmother Cancer Anxiety Osteoporosis Thyroid disorder Father Bleeding disorder Liver disease Mother Anesthesia complication Diabetes Hypertension Surgical History Status post bariatric surgery S/P hernia surgery H/O gastric bypass Hx of cholecystectomy History of total vaginal hysterectomy (TVH) S/P vaginal hysterectomy (~02/24/21) Status post bilateral salpingectomy (~09/25/19) History of foot surgery History of tonsillectomy Hx LEEP (loop electrosurgical excision procedure), cervix, Social History Smoking Status: Former smoker second hand exposure: No alcohol intake: never substance use type: does not use caffeine: No what type of physical activity do you participate in: none and other details: 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 seatbelt use: always do you feel safe at home: Yes additional social history: [employer] ED Constitutional Constitutional ED: Reports chills, fever(s) and other Details: Positive fatigue Eyes Eyes: Denies change in vision ENT ENT ED: Denies sore throat Cardiovascular Cardiovascular: Reports racing heartbeat; Denies chest pain Respiratory/Chest Respiratory/Chest: Denies cough or dyspnea Gastrointestinal Gastrointestinal: Reports abdominal pain, diarrhea, nausea and vomiting; Denies melena Genitourinary Genitourinary ED: Denies dysuria or hematuria Musculoskeletal Musculoskeletal: Reports myalgias Integumentary Denies rash Neurologic Neurologic: Denies headache(s) Hematologic/Lymphatic Hematologic/Lymphatic: Denies easy bleeding or easy bruising EXAM Physical Exam Const Vital Signs: 11/07/24 03:07 11/07/24 05:07 11/07/24 05:29 Temperature 100.8 F H 98.9 F Temperature Source Temporal Pulse Rate 106 H 101 H 90 Respiratory Rate 18 18 18 Blood Pressure 127/84 H 129/87 H 125/77 H Blood Pressure Mean 98 101 93 Pulse Ox 100 95 95 Oxygen Delivery Method Room Air Room Air Positive well nourished and well developed General Appearance ED: well developed; Negative for pallor HEENT Reports dry mucous membranes HEENT Narrative: No tongue or lip swelling no oral lesions no airway edema or compromise No secondary findings in the posterior pharynx to suggest infection Mucous membranes are dry and tacky Mouth ED: Yes dry mucous membranes Mouth: dry mucous membranes Eyes PERRL and EOMs intact bilaterally General Eye ED: Negative for scleral icterus Neck supple Neck Narrative: No nuchal rigidity or meningeal signs Resp normal respiratory effort and clear to auscultation bilaterally Cardio regular rhythm Rate: tachycardic and other Other Details: Tachycardic rate with regular rhythm No murmurs rubs or gallops Radial and carotid pulses are equal and symmetric GI non-distended and no masses GI Narrative: Abdomen is soft and nondistended with hyperactive bowel sounds There is mild diffuse pain on palpation without voluntary guarding or rigidity No pulsatile mass or fluid wave No peritoneal signs Auscultation: hyperactive bowel sounds Palpation: soft Extremity normal to inspection Neuro oriented x3, CN's II-XII intact bilaterally and no sensory deficits noted Sensorium / Orientation: alert Motor Exam: strength 5/5 throughout Psych mental status grossly normal Skin no rashes or lesions noted, no wounds and No skin turgor normal Skin Narrative: Skin turgor is increased General Skin Exam: Negative for jaundice or pallor MDM MDM MDM Narrative Medical decision making narrative: Patient arrived to the ER with low-grade fever and otherwise overall stable vitals. History and exam is consistent with viral stomach infection such as norovirus versus rotavirus. However based on physical exam showing changes and dehydration there is concern for acute kidney injury or clinically significant electrolyte abnormality. Patient also could have acute pancreatitis or intestinal abscess or gastric perforation. Secondary to this basic labs were obtained with a CT scan with IV contrast. Labs revealed no clinically significant findings and CAT scan showed no signs of acute infection perforation or abscess. After receiving IV fluids and Zofran patient reported feeling better and was able to tolerate an oral challenge. On reevaluation abdomen remains soft and nonsurgical. Therefore this time as overall workup is negative and she can now tolerate an oral challenge without recurrent bouts of vomiting I feel her symptoms are most like related to a viral stomach infection and she is otherwise safe for discharge with symptomatic care History & Record Review Discussion w/independent historian: Patient and Significant other Lab Data Attestation: I reviewed the patient's lab results. Labs: Laboratory Results - last 24 hr 11/07/24 03:15 WBC 8.2 RBC 4.67 Hgb 13.7 Hct 41.0 MCV 87.8 MCH 29.3 MCHC 33.4 RDW Std Deviation 43.2 RDW Coeff of Danette 13.5 Plt Count 239 MPV 9.7 Immature Gran % (Auto) 0.400 Neut % (Auto) 84.8 H Lymph % (Auto) 8.9 L Bosque % (Auto) 4.9 Eos % (Auto) 0.9 Baso % (Auto) 0.1 Absolute Neuts (auto) 6.9 Absolute Lymphs (auto) 0.73 L Nucleated RBC % 0 Sodium 138 Potassium 3.8 Chloride 103 Carbon Dioxide 22.8 Anion Gap 12 BUN 14 Creatinine 0.99 Estim Creat Clear Calc 102.42 Est GFR (MDRD) Non-Af 77 BUN/Creatinine Ratio 14.4 Glucose 100 H Calcium 8.9 Magnesium 1.7 Total Bilirubin 0.73 Direct Bilirubin 0.30 AST 21 ALT 21 Alkaline Phosphatase 80 Total Protein 6.9 Albumin 3.9 Globulin 3.0 Lipase 35 Radiography Diagnostic Testing: Clinical Impression(s) from Imaging Studies Abdomen/Pelvis CT 11/07/24 03:50 IMPRESSION: No acute findings. Reading Location: [place] [address] Discharge Plan Triage Chief Complaint: Nausea/Vomiting/Diarrhea ED Provider: Nadir Ortiz Dx/Rx/DC Orders Clinical Impression: Nausea vomiting and diarrhea, Mild dehydration Instructions: ED Dehydration (Adult), ED Gastroenteritis, Viral (Adult) Prescriptions: New ondansetron 4 mg tablet,disintegrating 4 mg PO TID PRN (Reason: nausea and vomiting) Qty: 21 0RF dicyclomine 20 mg tablet 20 mg PO 4X/DAY PRN (Reason: Abdominal bloating/spasm) Qty: 28 0RF No Action Baqsimi 3 mg/actuation spray,non-aerosol intranasal Patient Comments: SPRAY ONCE INTO THE NOSE NEEDED FOR LOW BLOOD SUGAR, REPEAT IN 15MIN NEEDED acarbose 25 mg tablet 50 mg PO TID Primary Care Provider: Asif Tim Referrals: Asif Tim MD [Primary Care Provider] - Activity Restrictions/Additional Instructions: Your lab work showed no clinically significant findings and your CT scan showed no sign of intestinal infection perforation or abscess. Your workup and exam/history indicate you have a viral stomach infection. This will resolve spontaneously and will last anywhere from 12 hours to 7 days with the average being 3 days. Take the medication as directed to help control symptoms and keep yourself well-hydrated. Return to the ER should you have any further concerns Print Language: Vietnamese Disposition Disposition: Home, Self Care Discharge Date/Time: 11/07/24 05:41
[2024-11-07 05:29] VITALS: BP 125/77; PULSE 90; RESP 18; TEMP 37.2; O2SAT 95
== END 2024-11-07 05:41 | disposition home or self-care (01) ==
PROVIDERS: Emergency Provider Emergency Medicine; PCP Family Medicine; Visit Provider Emergency Medicine
DX: R11.2 Nausea with vomiting, unspecified (principal); R19.7 Diarrhea, unspecified; E86.0 Dehydration; Z87.891 Personal history of nicotine dependence
CPT/HCPCS: 74177; 80048; 80076; 83690; 83735; 85025; 96361; 96374; 96375; 99283; Q9967; J2405

== ENCOUNTER 2024-11-09 08:17 | Emergency (ER) | payer MEDICAID, SELFPAY ==
[2024-11-09 08:17] VITALS: BP 126/90; PULSE 75; RESP 16; TEMP 36.7; O2SAT 99; BMI 36.6
[2024-11-09 08:41] VITALS: BP 117/83; PULSE 73; RESP 16; TEMP 36.6; O2SAT 100
[2024-11-09] MEDS: 0.9% Normal Saline (1000mL) 1,000 ML 999 ML IV (09:42)
[2024-11-09 09:47] LABS: Hematocrit 41.4 % (37-47); Hemoglobin 13.9 g/dL (12.0-15.0); Immature Granulocytes Count 0.010 X10^3/uL (0.0-0.0); Mean Corp Hgb Conc 33.6 g/dL (32-36); Mean Corpuscular Volume 87.0 fL (81-99); Mean Platelet Vol. 9.7 fl (6.2-12.0); NRBC Flagged by Analyzer 0 % (0-5); Platelet Count 222 K/mm3 (150-450); RBC Distribution Width CV 13.0 % (11.6-14.6); RBC Distribution Width SD 41.7 fl (35.1-43.9); Red Blood Count 4.76 M/mm3 (4.2-5.4); White Blood Count 3.4 K/mm3 (4.4-11.0)
[2024-11-09 10:03] LABS: Mucous, Urine 0 SEEN /hpf (<or=2+); Red Blood Cells-Urine 0 SEEN /hpf (0-5)
[2024-11-09 10:06] LABS: Color, Urine Yellow (Yellow); Glucose, Dipstick Normal (Normal); Leukocyte Esterase-Dipstick Negative /ul (Negative); Nitrite-Dipstick Negative (Negative); Occult Blood-Urine 25 /ul (Negative); Protein-Dipstick 15 mg/dl (Negative); Specific Gravity, Urine 1.015 (1.002-1.030); Urine Bilirubin Dipstick Negative (Negative)
[2024-11-09 10:07] LABS: Ketone-Dipstick 150 mg/dl (Negative)
[2024-11-09 10:12] LABS: Squamous Epithelial Cells - UA 0-5 SEEN /hpf (5-10)
[2024-11-09 10:17] VITALS: BP 129/88; PULSE 69; RESP 15; TEMP 36.6; O2SAT 99
[2024-11-09 10:23] LABS: AST(SGOT) 23 U/L (<=31); Alanine Aminotransfer ALT/SGPT 22 U/L (<=34); Albumin, Serum 3.6 g/dL (3.5-5.0); Alkaline Phosphatase 67 U/L (35-104); Anion Gap 15 (5-15); BUN 10 mg/dL (4-19); BUN/Creat Ratio 11.8 RATIO (10-20); Calcium,Total 8.7 mg/dL (7.6-11.0); Carbon Dioxide 20.8 mmol/L (21.0-32.0); Chloride 101 mmol/L (98-108); Estimated Creatinine Clearance 115.82 ml/min (50-250); Globulin 3.2 g/dL (2.2-4.2); Glucose 84 mg/dL (70-99); Lipase 20 U/L (13-75); Potassium 3.6 mmol/L (3.3-5.1)
[2024-11-09] MEDS: 0.9% Normal Saline (1000mL) 1,000 ML 1000 ML IV (10:58)
[2024-11-09 11:33] VITALS: BP 124/85; PULSE 67; RESP 14; TEMP 36.8; O2SAT 100
== END 2024-11-09 11:38 | disposition home or self-care (01) ==
PROVIDERS: Emergency Provider Emergency Medicine; PCP Family Medicine; Visit Provider Emergency Medicine
DX: K52.9 Noninfective gastroenteritis and colitis, unspecified (principal); E86.0 Dehydration; Z87.891 Personal history of nicotine dependence
CPT/HCPCS: 74177; 80053; 81001; 83690; 85025; 96361; 96374; 96375; 99282; Q9967; A4216; J2405

== ENCOUNTER 2025-04-07 12:29 | Emergency (ER) | payer MEDICAID, SELFPAY ==
[2025-04-07 12:31] VITALS: BP 126/78; PULSE 97; RESP 18; TEMP 37; O2SAT 98; BMI 38.9
--- OUTSIDE RECORDS SUMMARY | 2025-04-07 13:08 | XMS RPT_ITS | CCD ---
Author Organization [facility] Care Team Providers Care Hospice Volunteer Coordinator Name Role Phone LILIAM Dee RN, Ping Coles Unavailable Unavailjose alberto Dee RN RN, Ping Coles Unavailable Unavailjose alberto Dee RN RN, Ping Coles Unavailable Unavailabl e Becki FOSTER, Julissa Lin Unavailable [phone] VALDEZ WOODALL Unavailable Unavailable SHABNAM, ASIF Unavailable Unavailable Zografakis, Masood Unavailable Unavailable Bittenbender, Peter Unavailable Unavailable Shabnam, Asif Unavailable Unavailable Zografakis, Masood Unavailable Unavailable Bittenbender, Peter Unavailable Unavailable Shabnam, Asif Unavailable Unavailable Bittenbender, Peter Unavailable Unavailable Shabnam, Asif Unavailable Unavailable Wells, Unavailable Unavailable Wells, Unavailable Unavailable Bittenbender, Peter Unavailable Unavailable Bowlus, Asif Unavailable Unavailable Wells, Unavailable Unavailable Bittenbender, Peter Unavailable Unavailable Bowlus, Asif Unavailable Unavailable Wells, Unavailable Unavailable Bittenbender, Peter Unavailable Unavailable Shabnam, Asif Unavailable Unavailable Wells, Unavailable Unavailable Bittenbender, Peter Unavailable Unavailable Shabnam, Asif Unavailable Unavailable Wells, Unavailable Unavailable Bittenbender, Peter Unavailable Unavailable Shabnam, Asif Unavailable Unavailable Wells, Unavailable Unavailable Bittenbender, Peter Unavailable Unavailable Bowlus, Asif Unavailable Unavailable Zografakis, Masood Unavailable Unavailable Bittenbender, Peter Unavailable Unavailable Shabnam, Asif Unavailable Unavailable RumgagelGeorgeSweetie Unavailable Unavailable Bittenbender, Peter Unavailable Unavailable Bowlus, Asif Unavailable Unavailable Bittenbender, Peter Unavailable Unavailable Bowlus, Asif Unavailable Unavailable Zografakis, Masood Unavailable Unavailable Bittenbender, Peter Unavailable Unavailable Shabnam, Asif Unavailable Unavailable NORRIS, CELESTE Attending Unavailable BECKI, JULISSA Lin Referring Unavailabl e SHABNAM, ASIF Edwards Primary Care Unavailable LARRY RAMAN Attending Unavailable MARCANTHONY, JULISSA E Referring Unavailabl e SHABNAM, ASIF Edwards Primary Care Unavailable CARLOS TURNER Attending Unavailable MARCANTHAMITA, JULISSA E Referring Unavailabl e SHABNAM, ASIF Edwards Primary Care Unavailable BISHNU, OWEN T Attending Unavailable MARCSTEF, JULISSA Lin Referring Unavailabl e SHABNAM, ASIF Edwards Primary Care Unavailable MARCANTHAMITA, JULISSA E Referring Unavailabl e SHABNAM, ASIF Edwards Primary Care Unavailable BISHNU, OWEN T Attending Unavailable JOHNNY, CARLOS Attending Unavailable OCTAVIOANTHAMITA, JULISSA Lin Referring Unavailabl e SHABNAM, ASIF [...] Asif Haque MD Primary Care Provider Jamieagen SUPER[employer].PHARMACY GENERAL MANAGER, Nettie Unavailable Mahsa [employer].PHARMACY GENERAL MANAGER, Kiera A Unavailable Dr. Asif Haque MD Primary Care Provider Dr. Felice Centeno MD Attending Provider Taryn FOSTER, Dr. Viveros Referring Provider Shabnam FOSTER, Dr. Gold Referring Provider Charles Rodriguez Attending Provider Shabnam FOSTER, Dr. Gold Primary Care Provider Diana SOMMER, Dr. Schmitz Emergency Provider Gwyn SOMMER, Dr. Zuluaga Emergency Provider Diana SOMMER, Dr. Schmitz Attending Provider Gwyn SOMMER, Dr. Zuluaga Attending Provider Herminio Cardozo Attending Provider Herminio Byrnes Attending Unavailable Shabnam, Asif Referring Unavailable Shabnam, Asif Primary Care Unavailable Shabnam, Asif Primary Care Unavailable Herminio Byrnes Attending Unavailable Shabnam, Asif Referring Unavailable Bowlus, Asif Primary Care Unavailable Bowlus, Asif Referring Unavailable MarcanthJulissa levi Attending Unavailable Herminio Byrnes Attending Unavailable Shabnam, Asif Primary Care Unavailable Shabnam, Asif Referring Unavailable Bowlus, Asif Primary Care Unavailable Zan Pascal Attending Unavailable Shabnam, Asif Primary Care Unavailable MarcjulianonyJulissa Attending Unavailable Octavioanthony, Julissa Referring Unavailable Bowlus, Asif Primary Care Unavailable Felice Centeno Attending Unavailable Taryn, Felice Referring Unavailable Marcanthony, Julissa Referring Unavailable Shabnam, Asif Primary Care Unavailable Julissa Connell Attending Unavailable Nadir Ortiz Attending Unavailable Bowlus, Asif Primary Care Unavailable Bowlus, Asif Referring Unavailable Shabnam, Asif Primary Care Unavailable MarcJulissa hanks Attending Unavailable Bowlus, Asif Referring Unavailable Bowlus, Asif Primary Care Unavailable Charles Rodriguez Attending Unavailable Dimarino MIRI, Stef Unavailable [phone] ALKHALED, MANUELA Referring Unavailable SHABNAM, ASIF J Primary Care Unavailable ALKHALED, MANUELA Attending Unavailable SHABNAM, ASIF J Primary Care Unavailable DIMARINO, STEF Attending Unavailable SHABNAM, ASIF J Primary Care Unavailable DONITA GREEN Referring Unavaila ble SHABNAM, ASIF J Primary Care Unavailable STEF LUIS Attending Unavailable SHABNAM, ASIF J Primary Care Unavailable ALKHALED, MANUELA Attending Unavailable SHABNAM, ASIF J Primary Care Unavailable STEF LUIS Attending Unavailable ASIF HAQUE Primary Care Unavailable ALKHALED, MANUELA Referring Unavailable ASIF HAQUE Primary Care Unavailable ALKHALED, MANUELA Referring Unavailable SHABNAMASIF Breen Primary Care Unavailable ALKGUILLEED, MANUELA Attending Unavailable ASIF HAQUE Primary Care Unavailable PING ANSARI Attending Unavailable SHABNAMASIF Breen Primary Care Unavailable STEF LUIS Attending Unavailable STEF LUIS Referring Unavailable SHABNAMASIF Breen Primary Care Unavailable DONITA GREEN Referring Unavaila ble SHABNAMASIF Breen Primary Care Unavailable Allergies Allergy Classification Reported Allergen(s) Allergy Type Date of Onset Reaction(s) Facility Acetaminophen / HYDROcodone (1 source) Acetaminophen / HYDROcodone Drug Allergy 02-25-20 11 Hives, Itching [facility] Acetaminophen / oxyCODONE (1 source) Acetaminophen / oxyCODONE Drug Allergy 12-23-19 13 Itching [facility] Doxycycline (1 source) Doxycycline Drug Allergy 01-15-20 20 Hives [facility] Latex (1 source) Latex Substance Allergy 05-19-19 10 Rash [facility] Metoprolol (1 source) Metoprolol Drug Allergy 07-28-19 12 Hives, Shortness of Breath [facility] (7 sources) acetaminophen / HYDROcodone Drug Allergy 12-16-[address] [facility] (7 sources) acetaminophen / oxyCODONE Drug Allergy 12-16-[address] [facility] (7 sources) metoprolol Drug Allergy 12-16-[address] [facility] (20 sources) Acetaminophen / HYDROcodone; Translations: [HYDROCODONE-ACET AMINOPHEN] Drug Allergy 02-25-20 11 Hives, Itching [facility] (20 sources) Acetaminophen / oxyCODONE; Translations: [OXYCODONE-ACETAM INOPHEN] Drug Allergy 12-23-19 13 Other: See Comments, Itching [facility] (20 sources) Latex; Translations: [LATEX] Propensity to adverse reactions to drug (disorder) 05-19-19 10 Rash [facility] (20 sources) Metoprolol; Translations: [METOPROLOL] Drug Allergy 07-28-19 12 Hives, Shortness of Breath [facility] Comment on above: heart races (20 sources) Doxycycline; Translations: [DOXYCYCLINE] Drug Allergy 01-15-20 [facility] Work Phone: (20 sources) Tomatoes; Translations: [TOMATOES] Propensity to adverse reactions 09-19-19 10 Swelling [facility] (6 sources) Dicloxacillin Drug Allergy 09-21-19 [facility] (7 sources) HYDROcodone; Translations: [hydrocodone bitartrate] Drug Allergy 09-21-19 [facility] (7 sources) oxyCODONE; Translations: [oxycodone HCl] Drug Allergy 09-21-19 [facility] Comment on above: heart races (1 source) Dicloxacillin Drug Allergy 12-27-19 [facility] Medications Current Medications Medication Drug Class(es) Dates Sig (Normalized) Sig (Original) acarbose 25 mg oral tablet (13 sources) alpha-Glucosidase Inhibitor Start: 08-09-2024 End: 12-26-2024 take 35-35.9 tablets by mouth three times daily acarbose (PRECOSE) 25 mg tablet Indications: Class 2 severe obesity with serious comorbidity and body mass index (BMI) of 35.0 to 35.9 in adult, unspecified obesity type (HCC) , Hypoglycemia after GI (gastrointestinal) surgery (HCC) Take 2 tablets by mouth three times a day. 540 tablet 08/09/2024 Active amitriptyline hydrochloride 10 mg oral tablet (19 sources) Tricyclic Antidepressant Start: 11-21-2023 End: 02-19-2024 take 2 tablets by mouth once daily at bedtime amitriptyline (ELAVIL) 10 mg tablet Indications: Migraine with aura, not intractable, without status migrainosus Take 2 tablets by mouth daily at bedtime. 60 tablet 2 11/21/2023 Active Blood-Glucose Meter,Continuous (DEXCOM G7 COUNSELOR AID) misc (7 sources) Start: 07-04-2024 End: 10-02-2024 Blood-Glucose Meter,Continuous (DEXCOM G7 COUNSELOR AID) misc 1 Each as directed. 1 Each 2 07/04/2024 10/02/2024 Active Blood-Glucose Meter,Continuous (FREESTYLE CONNIE 3 READER) misc (2 sources) Start: 12-07-2024 Blood-Glucose Meter,Continuous (FREESTYLE CONNIE 3 READER) misc Use to check blood sugar at least four (4) times daily. 1 each 12/07/2024 Active Blood-Glucose Sensor (DEXCOM G7 SENSOR) allison (10 sources) Start: 11-07-2024 End: 02-05-2025 Blood-Glucose Sensor (DEXCOM G7 SENSOR) allisno 1 EACH EVERY 10 DAYS. 10 each 3 11/07/2024 02/05/2025 Active Start: 07-04-2024 End: 10-02-2024 Blood-Glucose Sensor (DEXCOM G7 SENSOR) allison 1 Each every 10 days. 3 Each 3 07/04/2024 10/02/2024 Active Blood-Glucose Sensor (FREESTYLE CONNIE 3 PLUS SENSOR) allison (2 sources) Start: 12-07-2024 Blood-Glucose Sensor (FREESTYLE CONNIE 3 PLUS SENSOR) allison Apply new sensor every fifteen (15) days to upper arm. 6 each 4 12/07/2024 Active cholecalciferol 0.05 mg oral capsule (20 sources) Vitamin D Start: 05-11-2023 take 1 capsule by mouth once daily Cholecalciferol, Vitamin D3, (VITAMIN D-3) 50 mcg (2,000 unit) cap Take 1 capsule by mouth once daily. 05/11/2023 Active Start: 05-11-2023 End: 11-07-2024 take 1 capsule by mouth once daily Cholecalciferol (Vitamin D3) 50 mcg (2,000 unit) capsule Discontinued 50 ug PO DAILY May 13, 2023 1:00am November 07, 2024 3:08am Comment on above: Take 1 capsule by [facility] once daily. Creatinine, Bulk, 100 % powd (20 sources) Creatinine, Bulk , 100 % powd 1,500 mg once daily. Active Creatinine, Bulk , 100 % powd 1,500 mg once daily. 0 Active ferrous sulfate 325 mg oral tablet (20 sources) Start: 05-11-2023 End: 11-07-2024 take 1 tablet by mouth once daily [...] once daily. glucagon 3 mg nasal powder (15 sources) Antihypoglycemic Agent Start: 09-21-2024 Glucagon (Baqsimi) 3 mg/actuation spray,non-aerosol Active mg INTRANASAL September 21, 2024 12:00am Start: 07-04-2024 End: 10-02-2024 glucagon 3 mg/actuation nasa l spray (BAQSIMI) Use 1 Allgood in the nose as needed for low blood sugar. May repeat after 15 minutes using a new device if there is no response. 1 Each 2 07/04/2024 Active Glucagon (Baqsimi) 3 mg/actuation spray,non-aerosol (2 sources) Start: 09-21-2024 Glucagon (Baqs imi) 3 mg/actuation spray,non-aerosol Active mg INTRANASAL September 21, 2024 12:00am ketoconazole 20 mg/ml medicated shampoo (14 sources) Azole Antifungal Start: 11-21-2023 End: 01-20-2024 ketoconazole (NIZORAL) 2 % shampoo Indications: Tinea cruris Apply to affected area two times a week. 240 mL 1 11/21/2023 01/20/2024 Active Start: 05-11-2022 End: 07-19-2022 Ketoconazole 2 % cream Disco ntinued 1 NMA TOPICAL DAILY May 11, 2022 1:00am July 19, 2022 6:34am Start: 11-10-2021 End: 12-10-2021 ketoconazole (NIZORAL) 2 % c ream Indications: Cystic acne Apply to affected area once daily. 30 g 5 11/10/2021 12/10/2021 Active Comment on above: Apply to affected ar ea once daily. magnesium oxide 500 mg oral capsule (20 sources) take 1 capsule by mouth once daily Magnesium Oxide 500 mg cap Take 1 capsule by mouth once daily. Active oseltamivir 75 mg oral capsule (2 sources) Neuraminidase Inhibitor Start: End: take 1 capsule by mouth twice daily oseltamivir (TAMIFLU) 75 mg capsule Indications: Influenza A Take 1 capsule by mouth twice daily for 5 days. 10 capsule 0 04/22/2022 04/27/2022 Active Comment on above: Take 1 capsule by [facility] twice daily for 5 days. rizatriptan 10 mg oral tablet (5 [...] mg / trimethoprim 160 mg oral tablet (13 sources) Dihydrofolate Reductase Inhibitor Antibacterial, Sulfonamide Antimicrobial [...] g 1 11/21/2023 12/21/2023 Active vitamin a 65842 unt oral capsule (20 sources) Vitamin A [...] Take 1 tablet by jo once daily. Completed/Discontinued Medications Medication Drug Class(es) [...] Comment on above: Take 2 tablets by [facility] every 6 hours as needed for pain. 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 Start: 02-25-2021 End: 03-09-2021 take 1 tablet by mouth once daily Acetaminophen-Codeine Discontinued 1 TABLET PO DAILY February 24, 2021 11:00pm March 09, 2021 9:31am amoxicillin 500 mg oral capsule (7 sources) Penicillin-class Antibacterial Start: 12-29-2016 End: 01-05-2017 take 1 tablet by mouth three times daily AMOXICILLIN 500 MG CAPS One tablet by mouth three times daily AMOXICILLIN [id number] 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 amoxicillin 875 mg / clavulanate 125 mg oral tablet (12 sources) Penicillin-class Antibacterial Start: 03-06-2024 End: 05-21-2024 Amoxicillin-Pot Clavulanate 875-125 mg tablet Discontinued 1 {tbl} PO TWICE A DAY March 08, 2024 12:00am May 21, 2024 10:35am Start: 04-19-2022 End: 04-29-2022 Amoxicillin-Pot Clavulanate 875-125 mg tablet Discontinued 1 {tbl} PO Q12H 20 April 19, 2022 1:00am April 28, 2022 1:00am April 29, 2022 1:04am Acute sinusitis, unspecified Start: 04-19-2022 End: 04-29-2022 take 1 tablet by mouth every twelve hours Amoxicillin-Pot Clavulanate Discontinued 1 TABLET PO Q12H 25 02April 19, 2022 12:00am April 29, 2022 12:04am Start: 03-10-2022 End: 03-15-2022 take 1 tablet by mouth twice daily amoxicillin-clavulanic acid (AUGMENTIN) 875-125 mg per tablet Indications: Acute non-recurrent sinusitis, unspecified location Take 1 tablet by mouth twice daily for 5 days. 10 tablet 0 03/10/2022 03/15/2022 Active Comment on above: Take 1 tablet by jo twice daily for 5 days. ampicillin 500 mg oral capsule (6 sources) Penicillin-class Antibacterial Start: 12-13-19 End: 12-18-19 take 1 capsule by mouth every eight hours Ampicillin 500 mg capsule Discontinued 500 mg PO Q8H 15 5 0 December 12, 2018 12:00am December 16, 2018 12:00am December 17, 2018 12:08am ASHWAGANDHA ROOT EXTRACT ORAL (4 sources) End: 09-24-19 ASHWAGANDHA ROOT EXTRACT ORAL Take 600 mg by mouth. 09/23/2022 Discontinued (Discontinued by Patient) ASHWAGANDHA ROOT EXTRACT ORAL Take 600 mg by mouth. 0 Active Comment on above: Take 600 mg by mouth . azithromycin 250 mg oral tablet (13 sources) Macrolide Antimicrobial Start: 04-16-2024 End: 05-21-2024 Azithromycin 250 mg tablet Discontinued 250 mg PO .COMPLEX 12 0 April 16, 2024 1:00am May 21, 2024 10:35am 2 tablets (500 mg) on day 1, then 1 tablet daily on days 2 through 11 Start: 02-21-2024 End: 03-08-2024 Azithromycin 250 mg tablet Discontinued 0 PO .COMPLEX 6 0 February 21, 2024 12:00am March 08, 2024 3:16pm For 250 mg dose pack: take 500 mg today (day 1), then 250 mg for 4 days (days 2-5) PO Start: 02-11-2023 End: 03-09-2023 take 2-5 tablets by mouth once daily Azithromycin 250 mg tablet Discontinued 0 PO .COMPLEX 6 0 February 11, 2023 12:00am March 09, 2023 12:58pm take 500 mg today (day 1), then 250 mg for 4 days (days 2-5) PO Biotin (13 sources) End: 09-23-2022 BIOTIN ORAL Take by mouth. 0 09/23/2022 Discontinued (Discontinued by Patient) BIOTIN ORAL Take by mouth. 0 Active Comment on above: Take by mouth. Control (6 sources) Start: 01-01-2016 End: 12-09-2017 Control Discontinued [...] 11:24am calcium ascorbate 500 mg oral tablet (6 sources) Start: 11-06-2020 End: 03-09-2021 take 1 tablet by mouth twice daily Ascorbate Calcium (Vitamin C) 500 mg tablet Discontinued 500 mg PO TWICE A DAY November 06, 2020 12:00am March 09, 2021 10:31am calcium carbonate 1500 mg oral tablet (20 sources) Start: 05-13-2023 End: 11-07-2024 take 1 tablet by mouth twice daily Calcium Carbonate (Calcium 600) 600 mg calcium (1,500 mg) tablet Discontinued 600 mg PO TWICE A DAY May 13, 2023 1:00am November 07, 2024 3:08am Start: 05-11-2023 calcium carbon ate (CALCIUM 600 ORAL) Take 3 tablets by mouth once daily. (1800 daily) 05/11/2023 Active Start: 05-11-2023 calcium carbon ate (CALCIUM 600 ORAL) Take 3 tablets by mouth once daily. (1800 daily) 0 05/11/2023 Active Start: 05-11-2023 take 1 tablet by jo th once daily calcium carbonate (CALCIUM 600 ORAL) Take 1 tablet by mouth once daily. 0 05/11/2023 Active Start: 05-11-2023 calcium carbon ate (CALCIUM 600 ORAL) Comment on above: Take 1 tablet by jo th once daily. cannabidiol 100 mg/ml oral solution (6 sources) Start: 05-18-2019 End: 06-01-2019 take 2 [...] the AM. cephalexin 500 mg oral capsule (12 sources) Cephalosporin Antibacterial Start: 10-08-2019 End: 10-18-2019 take 1 capsule by mouth every six hours Cephalexin (Keflex) 500 mg capsule Discontinued 500 mg PO EVERY 6 HOURS 40 10 0 October 08, 2019 12:00am October 17, 2019 12:00am October 18, 2019 12:02am Start: 04-10-2019 End: 04-17-2019 take 1 capsule by mouth every six hours Cephalexin (Keflex) 500 mg capsule Discontinued 500 mg PO EVERY 6 HOURS 28 7 0 April 10, 2019 1:00am April 16, 2019 1:00am April 17, 2019 1:08am ciprofloxacin 500 mg oral tablet (2 sources) Quinolone Antimicrobial Start: 11-09-2024 End: 12-26-2024 take 1 tablet by mouth twice daily Ciprofloxacin Hcl 500 mg tablet Discontinued 500 mg PO TWICE A DAY 20 0 November 09, 2024 12:00am December 26, 2024 6:33am citalopram 20 mg oral tablet (6 sources) Serotonin Reuptake Inhibitor Start: 02-07-2019 End: 02-13-2019 take 1 tablet by mouth once daily Citalopram 20 mg tablet Discontinued 20 mg PO DAILY 30 12 February 07, 2019 12:00am February 13, 2019 9:28am clindamycin 10 mg/ml topical solution (20 sources) Lincosamide Antibacterial Start: 05-11-2022 End: 07-19-2022 [...] mg PO THREE TIMES A DAY 30 10 0 September 25, 2019 12:00am October 04, 2019 12:00am October 05, 2019 12:02am Start: 09-25-2019 End: 10-05-2019 take 300 mg by mouth three times daily Clindamycin Hcl Discontinued 300 MG PO THREE TIMES A DAY 07 03September 24, 2019 11:00pm October 04, 2019 11:02pm Comment on above: Apply to affected ar ea twice daily. cyclobenzaprine hydrochloride 10 mg oral tablet (6 sources) Muscle Relaxant Start: End: take 1 tablet by mouth three times daily as needed for pain Cyclobenzaprine 10 mg tablet Discontinued 10 mg PO THREE TIMES A DAY as needed for muscle spasm or pain 30 February 24, 2021 12:00am March 09, 2021 10:30am dicloxacillin 500 mg oral capsule (6 sources) Penicillin-class Antibacterial Start: End: take 1 capsule by mouth every six hours Dicloxacillin 500 mg capsule Discontinued 500 mg PO EVERY 6 HOURS 40 10 November 21, 2019 12:00am November 30, 2019 12:00am December 01, 2019 12:03am dicyclomine hydrochloride 20 mg oral tablet (3 sources) Anticholinergic Start: 025 End: take 1 tablet by mouth four times daily as needed for muscle spasms Dicyclomine 20 mg tablet Discontinued 20 mg PO 4 TIMES DAILY as needed for Abdominal bloating/spasm November 07, 2024 5:26am December 26, 2024 6:33am fluticasone propionate 0.05 mg/actuat metered dose nasal [...] 1 tablet by jo th once daily. L.Acidoph, Paracasei,B. Lactis (2 sources) Start: 020 End: 020 L.Acidoph, Paracasei,B. Lactis Discontinued 1 EACH PO DAILY September 17, 2019 11:00pm October 05, 2019 2:32pm Start: 09-18-2019 End: 10-05-2019 L.Acidoph, Paracasei,B. Lact is Discontinued 1 EACH PO DAILY September 18, 2019 12:00am October 05, 2019 3:32pm L.Acidoph,Paracasei,B.Animal is 1 EACH capsule (4 sources) Start: 09-18-2019 End: 10-05-2019 take 1 capsule [...] mouth. levothyroxine sodium 0.1 mg oral tablet (9 sources) l-Thyroxine Start: 05-10-19 24 End: 03-08-20 24 take 1 tablet by mouth once daily Levothyroxine 100 mcg tablet Discontinued 100 ug PO DAILY 90 3 May 10, 2023 1:00am March 08, 2024 3:17pm Comment on above: Take 1 tablet by jo th daily before breakfast. meclizine hydrochloride 12.5 mg oral tablet (5 sources) Antiemetic Start: 04-22-20 22 End: 09-24-19 23 take 1 tablet by mouth every six hours as needed for dizziness meclizine (ANTIVERT) 12.5 mg tab Indications: Vertigo Take 1 tablet by mouth every 6 hours as needed (dizziness). 30 tablet 1 04/22/2022 09/23/2022 Discontinued (Discontinued by Patient) Comment on above: Take [facility] tablet by [facility] every 6 hours as needed (dizziness). mecobalamin (20 sources) Start: 05-13-19 24 End: 11-08-19 Mecobalamin (Vitamin B12) 2,500 mcg tablet,chewable Discontinued ug PO May 13, 2023 1:00am November 07, 2024 3:08am Start: 05-13-2023 Mecobalamin (V itamin B12) 2,500 mcg tablet,chewable Active ug PO May 13, 2023 1:00am Start: 05-13-2023 Mecobalamin (V itamin B12) Active MCG PO May 13, 2023 12:00am End: 09-23-2022 mecobalamin (B12 ACTIVE ORAL ) Take by mouth. 09/23/2022 Discontinued mecobalamin (B12 ACTIVE ORAL) Take by mouth. 0 Active Comment on above: Take by mouth. metoclopramide 10 mg oral tablet (6 sources) Dopamine-2 Receptor Antagonist Start: 018 End: take 1 tablet by mouth three times daily as needed for headache Metoclopramide Hcl (Reglan) 10 mg tablet Discontinued 10 mg PO THREE TIMES A DAY as needed for headache 90 3 December 26, 2017 12:00am May 22, 2018 5:03pm metroNIDAZOLE 500 mg oral tablet (2 sources) Nitroimidazole Antimicrobial Start: 025 End: 025 take 1 tablet by mouth every six hours Metronidazole 500 mg tablet Discontinued 500 mg PO EVERY 6 HOURS 40 0 November 09, 2024 12:00am December 26, 2024 6:33am Multivitamin capsule (9 sources) take 1 capsule by mouth once daily Multivitamin capsule Take 1 capsule by mouth once daily. 0 Active Comment on above: Take 1 capsule by mo [facility] once daily. Multivitamin preparation (2 sources) Start: 023 End: 024 take 1 tablet by mouth once daily Multivitamin Discontinued 1 TABLET PO DAILY September 19, 2022 11:00pm May 10, 2023 1:14pm Start: 09-20-2022 take 1 tablet by jo th once daily Multivitamin Active 1 TABLET PO DAILY September 20, 2022 12:00am Multivitamin Tablet (4 sources) Start: 09-20-2022 End: 05-10-2023 Multivitamin Tablet Discontinued 1 {tbl} PO DAILY September 20, 2022 12:00am May 10, 2023 2:14pm naproxen 250 mg oral tablet (18 sources) Nonsteroidal Anti-inflammatory Drug Start: 02-24-2021 End: 03-09-2021 take 250-500 mg by mouth every eight hours as needed for pain Naproxen 250 MG tablet Discontinued 250 - 500 mg PO EVERY 8 HOURS NEEDED as needed for MILD PAIN 30 February 24, 2021 12:00am March 09, 2021 10:30am Start: 09-25-2019 End: 10-05-2019 take 250-500 mg by mouth every eight hours as needed for pain Naproxen 250 MG tablet Discontinued 250 - 500 mg PO EVERY 8 HOURS NEEDED as needed for MILD PAIN 30 September 25, 2019 12:00am October 05, 2019 3:32pm Start: 03-06-2017 End: 12-09-2017 take 250-500 mg by mouth every eight hours as needed for pain Naproxen 250 MG tablet Discontinued 250 - 500 mg PO EVERY 8 HOURS NEEDED as needed for MILD PAIN 30 March 06, 2017 12:00am December 09, 2017 11:24am nitrofurantoin, macrocrystals 25 mg / nitrofurantoin, monohydrate 75 mg oral capsule (12 sources) Nitrofuran Antibacterial Start: 02-17-2018 End: 02-24-2018 take 1 capsule by mouth every twelve hours at mealtime Nitrofurantoin Monohyd/M-Cryst (Macrobid) 100 mg capsule Discontinued 1 NMA PO Q12H 14 7 0 February 17, 2018 12:00am February 23, 2018 12:00am February 24, 2018 12:11am administer with a meal/food; swallow whole; do not open, crush, dissolve , or chew Start: 01-02-2018 End: 01-09-2018 take 1 capsule by mouth twice daily at mealtime Nitrofurantoin Monohyd/M-Cryst (Macrobid) 100 mg capsule Discontinued 100 mg PO TWICE A DAY 14 7 0 January 02, 2018 12:00am January 08, 2018 12:00am January 09, 2018 12:08am must administer with a meal/food norethindrone 0.35 mg oral tablet (12 sources) Start: 08-03-2018 End: 12-12-2018 take 1 tablet by mouth once daily Norethindrone (Contraceptive) (Ольга) 0.35 mg tablet Discontinued 0.35 mg PO daily 84 August 03, 2018 12:00am December 12, 2018 11:03am start day 1 of menstrual cycle Start: 04-18-2017 End: 12-09-2017 take 1 tablet by mouth once daily Norethindrone (Contraceptive) (Ольга) 0.35 mg tablet Discontinued 0.35 mg PO daily 28 April 18, 2017 1:00am December 09, 2017 11:24am take at the same time every day omeprazole 40 mg delayed release oral capsule (3 sources) Proton Pump Inhibitor Start: 09-21-2022 End: 11-18-2022 take 1 capsule by mouth once daily omeprazole (PRILOSEC) 40 mg capsule Take 1 capsule by mouth once daily. 30 capsule 1 09/21/2022 11/18/2022 Discontinued Comment on above: Take 1 capsule by [facility] once daily. ondansetron 4 mg disintegrating oral tablet (20 sources) Serotonin-3 Receptor Antagonist Start: 11-07-2024 End: 12-26-2024 take 1 tablet by mouth three times daily as needed for nausea and vomiting Ondansetron 4 mg tablet,disintegrat ing Discontinued 4 mg PO THREE TIMES A DAY as needed for nausea and vomiting 21 0 November 07, 2024 5:26am December 26, 2024 6:33am Start: 09-21-2022 End: 11-18-2022 take 1 tablet [...] 4 HOURS NEEDED as needed for Nausea 14 0 December 28, 2017 8:43am May 22, 2018 5:03pm Start: 01-02-2016 End: 12-09-2017 take 1 tablet by mouth every eight hours as needed for nausea Ondansetron 4 MG tablet Discontinued 4 mg PO EVERY 8 HOURS NEEDED as needed for Nausea 10 January 02, 2016 12:00am December 09, 2017 [...] tablet (17 sources) Proton Pump Inhibitor Start: 2021 End: 2022 take 1 tablet by mouth once daily pantoprazole DR (PROTONIX) 40 mg tablet Take 1 tablet by mouth once daily. 90 tablet 3 06/22/2021 11/18/2022 Discontinued Comment on above: Take 1 tablet by jo th once daily. phenazopyridine hydrochloride 200 mg oral tablet (6 sources) Start: 2015 End: 2017 take 1 tablet by mouth twice daily as needed for pain Phenazopyridine 200 MG tablet Discontinued 200 mg PO TWICE DAILY NEEDED as needed for Pain 10 January 01, 2016 12:00am December 09, 2017 11:24am phentermine hydrochloride 37.5 mg oral capsule (15 sources) Sympathomimetic Amine Anorectic Start: 2023 End: 2024 take 1 capsule by mouth once daily 30 minutes after breakfast Phentermine 37.5 mg capsule Discontinued 37.5 mg PO daily March 08, 2024 12:00am November 07, 2024 3:08am must administer 30 minutes before or 1-2 [...] jo th once daily for 90 days. VIT-FE FUMARATE-FA (7 sources) Start: 12-16-19 17 VITAMINS 28-0.8 MG TABS VIT-FE FUMARATE-FA [id number] Julissa Connell MD promethazine hydrochloride 12.5 mg oral tablet (12 sources) Phenothiazine Start: 12-23-19 18 End: 05-22-19 19 take 1 tablet by mouth every six hours as needed for nausea and vomiting Promethazine 12.5 mg tablet Discontinued 12.5 mg PO EVERY 6 HOURS as needed for nausea and vomiting 60 2 December 22, 2017 12:00am May 22, 2018 5:03pm Start: 01-01-2016 End: 12-09-2017 take 1 tablet by mouth every six hours as needed for nausea Promethazine 25 MG tablet Discontinued 25 mg PO EVERY 6 HOURS NEEDED as needed for Nausea 10 0 January 01, 2016 12:00am December 09, 2017 11:24am raNITIdine 300 mg oral tablet (6 sources) Histamine-2 Receptor Antagonist Start: 01-01-2016 End: 12-09-2017 take 1 tablet by mouth once daily Ranitidine Hcl 300 MG tablet Discontinued 300 mg PO DAILY January 01, 2016 12:00am December 09, 2017 11:25am [place] Laten (6 sources) Start: 09-18-2019 End: 10-05-2019 [place] Laten Discontinued 3 NMA PO THREE TIMES A DAY September 18, 2019 12:00am October 05, 2019 3:32pm Start: 09-18-2019 End: 10-05-2019 take 3 capsules by mouth three times daily [place] Laten Discontinued 3 CAP PO THREE TIMES A DAY September 17, 2019 11:00pm October 05, 2019 2:32pm Start: 09-18-2019 End: 10-05-2019 take 3 capsules by mouth three times daily [place] Laten Discontinued 3 CAP PO THREE TIMES [...] th twice daily as needed for pain. valACYclovir 1000 mg oral tablet (3 sources) Herpesvirus Nucleoside Analog DNA Polymerase Inhibitor, Herpes Simplex Virus Nucleoside Analog DNA Polymerase Inhibitor, Herpes Zoster Virus Nucleoside Analog DNA Polymerase Inhibitor Start: 09-21-2024 End: 10-01-2024 Valacyclovir 1 gram tablet Discontinued 1000 mg PO Q8H 30 10 0 September 21, 2024 12:00am September 30, 2024 12:00am October 01, 2024 12:07am Vitamin B69-Vpdlu Acid (2 sources) Start: 02-17-2021 End: 03-09-2021 Vitamin I64-Mccbv Acid Discontinued 1 TABLET SL DAILY February 16, 2021 11:00pm March 09, 2021 9:31am Start: 02-17-2021 End: 03-09-2021 Vitamin V29-Rkqhr Acid Disco ntinued 1 TABLET SL DAILY February 17, 2021 12:00am March 09, 2021 10:31am Vitamin T55-Jcdfe Acid 1,000-400 mcg Tablet, Sublingual (4 sources) Start: 02-17-2021 End: 03-09-2021 Vitamin Z48-Ihrqs Acid 1,000 -400 mcg Tablet, Sublingual Discontinued 1 {tbl} SL DAILY February 17, 2021 12:00am March 09, 2021 10:31am Problems Active Problems Problem Classification Problem Date Documented Da te Episodic/Chronic Abdominal pain (20 sources) Right flank pain; Translations: [Unspecified abdominal pain] Onset: 5 09-20-2022 Episodic Comment on above: s/p ct scan. recomme nd referral back to bariatric surgeon for full evaluation Acute bronchitis (4 sources) Acute bronchitis; Translations: [Acute bronchitis, unspecified] 02-21-2024 Episodic Anxiety disorders (20 sources) Panic disorder; Translations: [Panic disorder [episodic paroxysmal anxiety]] Onset: 8 12-01-2017 Chronic Complications of surgical procedures or medical care (6 sources) Post gastrointestinal tract surgery hypoglycemia; Translations: [...] [Gastroesophageal reflux disease] Onset: 8 04-27-2021 Chronic Fluid and electrolyte disorders (3 sources) Mild dehydration; Translations: [Dehydration] 11-07-2024 Episodic Headache; including migraine (1 source) Migraine with aura; Translations: [Migraine with aura, not intractable, without status migrainosus] 11-21-2023 Chronic Hemorrhage during ; abruptio placenta; placenta previa (11 sources) Threatened miscarriage; Translations: [Threatened ] 12-19-2017 Episodic Comment on above: resolved Immunizations and screening for infectious disease (7 sources) Contact with and (suspected) exposure to other viral communicable diseases; Translations: [Contact with or suspected exposure to other viral communicable disease] 04-19-2022 Episodic Influenza (2 sources) Influenza due to Influenza A virus; Translations: [Influenza due to other identified influenza virus with other respiratory manifestations] Episodic Malaise and fatigue (2 sources) Fatigue; Translations: [Other fatigue] Episodic Menopausal disorders (5 sources) Menopausal syndrome; Translations: [Menopausal and female climacteric states] Onset: 5 05-21-2024 Chronic Miscellaneous mental health disorders (1 source) Psychosomatic factor in physical condition; Translations: [Psychological and behavioral factors associated with disorders or diseases classified elsewhere] Chronic Mycoses (1 source) Tinea cruris; Translations: [Tinea cruris] 11-21-2023 Episodic Nausea and vomiting (5 sources) Nausea; Translations: [Nausea] Onset: Episodic Noninfectious gastroenteritis (2 sources) Colitis; Translations: [Noninfective gastroenteritis and colitis, unspecified] 11-09-2024 Episodic Other aftercare (6 sources) Surgical follow-up; Translations: [Encounter for follow-up examination after completed treatment for conditions other than malignant neoplasm] 04-06-2021 Episodic Other circulatory disease (1 source) Respiratory symptom; Translations: [Other specified symptoms and signs involving the circulatory and respiratory systems] Episodic Other connective tissue disease (2 sources) Cramp in lower limb; Translations: [Cramp and spasm] Episodic Other gastrointestinal disorders (7 sources) Abnormal intestinal absorption; Translations: [Intestinal malabsorption, unspecified] Chronic Other gastrointestinal disorders (18 sources) History of bypass of stomach; Translations: [Bariatric surgery status] Episodic Other gastrointestinal disorders (10 sources) History of bariatric surgical procedure; Translations: [Bariatric surgery status] Episodic Other gastrointestinal disorders (2 sources) Acute constipation; Translations: [Constipation, unspecified] Episodic Other gastrointestinal disorders (5 sources) Bariatric surgery status; Translations: [Bariatric surgery status] Onset: 5 05-10-2023 Episodic Other injuries and conditions due to external causes (6 sources) History of fall; Translations: [History of falling] 08-01-2018 Episodic Other nervous system disorders (1 source) Chronic pain; Translations: [Other chronic pain] 11-21-2023 Chronic Other nutritional; endocrine; and metabolic disorders (3 sources) Morbid (severe) obesity due to excess calories; Translations: [Morbid (severe) obesity due to excess calories] Onset: 8 Chronic Other nutritional; endocrine; and metabolic disorders (20 sources) Body mass index 40+ - severely obese; Translations: [Body mass index (BMI) 50.0-59.9, adult] Onset: 2 Chronic Comment on above: 1 tm glucola and isabel wth us nsts after 32 weeks Other nutritional; endocrine; [...] nutritional; endocrine; and metabolic disorders (2 sources) Obese class II; Translations: [Class 2 obesity] 07-13-2024 Chronic Other nutritional; endocrine; and metabolic disorders (1 source) Body mass index (BMI) 38.0-38.9, adult; Translations: [Class 2 severe obesity with serious comorbidity and body mass index (BMI) of 38.0 to 38.9 in adult, unspecified obesity type (HCC)] Onset: 5 Chronic Other skin disorders (3 sources) Loss of hair; Translations: [Nonscarring hair loss, unspecified] Episodic Other skin disorders (3 sources) Cystic acne; Translations: [Acne vulgaris] Episodic Other upper respiratory infections (1 source) Bacterial sinusitis; Translations: [Chronic sinusitis, unspecified] 03-06-2024 Chronic Other upper respiratory infections (20 sources) Acute sinusitis; Translations: [Acute sinusitis, unspecified] Onset: 5 Episodic Otitis media and related conditions (11 sources) Acute right otitis media; Translations: [Otitis [...] Translations: [Iodine-deficiency related diffuse (endemic) goiter] Onset: 5 11-18-2022 Chronic Comment on above: labs ordered [...] (1 source) NO SHOW Unclassified (1 source) Class 2 severe obesity with serious comorbidity and body mass index (BMI) of 38.0 to 38.9 in adult, unspecified obesity type (HCC); Translations: [Class 2 severe obesity with serious comorbidity and body mass index (BMI) of 38.0 to 38.9 in adult, unspecified obesity type (HCC)] Onset: 5 Unclassified (1 source) Reassessment Onset: 5 Urinary tract infections (6 sources) Pyelonephritis; Translations: [Tubulo-interstitial nephritis, not specified as acute or chronic] 01-02-2016 Episodic Viral infection (6 sources) Herpes zoster; Translations: [Zoster without complications] 09-21-2024 Episodic Past or Other Problems Problem Classification Problem Date Documented Date Episodic/Chronic Administrative/social admission (16 sources) Patient encounter status; Translations: [Dietary counseling and surveillance] Onset: 12-05-2024 Episodic Comment on above: abnormal for SALVADOR-A and needs growth US q4wk after 24 and weekly nst after 32 Biliary tract disease (20 sources) Cholelithiasis without [...] unspecified] Onset: 01-12-2017 Resolved: 02-15-2017 02-15-2017 Episodic Nonmalignant breast conditions (5 sources) Breast lump; Translations: [Unspecified lump in [...] pre-term labor] Onset: 07-15-2016 07-15-2016 Episodic Other lower respiratory disease (20 sources) [...] nutritional; endocrine; and metabolic disorders (20 sources) Weight increased; Translations: [Abnormal weight gain] [...] Test Name Value Interpretation Reference Range Facility 25(OH)D3 [facility] 2024 25-hydroxyvitamin D3 [Mass/Vol] 62.0 ng/mL Normal 31.0-80.0 [facility] Comment on above: Order Comment: Speci men Type: BLOOD SPECIMENOrdering Facility: [facility] Address: [address] [place] [address] [place] [address] Result Comment: Clas sification of 25 [place] Vitamin D status: Deficiency/Insufficiency: < or = 30 ng/ml. Sufficiency/Optimal Levels: 31-80 ng/mL Toxicity: > 100 ng/mL. Test performed by chemiluminescent immunoassay. Performed By: #### 1 989-3 ####[facility] LABCLIA [id number] [address] [place] CBC panel Auto (Bld)on 03-01 Erythrocyte distribution width (RBC) [Ratio] 13.2 % Normal 11.5-15.0 [facility] Comment on above: Order Comment: Speci men Type: BLOOD SPECIMENOrdering Facility: [facility] Address: [address] [place] [address] Performed By: #### 5 8410-2 ####[facility] [id number] [address] [place] Hematocrit (Bld) [Volume fraction] 39.7 % Normal 36.0-46.0 [facility] Comment on above: Order Comment: Speci men Type: BLOOD SPECIMENOrdering Facility: [facility] Address: [address] [place] [address] Performed By: #### 5 8410-2 ####[facility] [id number] [address] [place] Hemoglobin (Bld) [Mass/Vol] 13.3 g/dL Normal 11.5-15.5 [facility] Comment on above: Order Comment: Speci men Type: BLOOD SPECIMENOrdering Facility: [facility] Address: [address] [place] [address] Performed By: #### 5 8410-2 ####[facility] NAPLESNCA [id number] [place] [address] [place] MCH (RBC) [Entitic mass] 28.9 pg Normal 26.0-34.0 [facility] Comment on above: Order Comment: Speci men Type: BLOOD SPECIMENOrdering Facility: [facility] Address: [address] [place] [address] Performed By: #### 5 8410-2 ####[facility] CAROL [id number] [place] [address] [place] MCHC (RBC) [Mass/Vol] 33.5 g/dL Normal 30.5-36.0 [facility] Comment on above: Order Comment: Speci men Type: BLOOD SPECIMENOrdering Facility: [facility] Address: [address] [place] [address] Performed By: #### 5 8410-2 ####[facility] NAPLESNCAG [id number] [place] [address] [place] MCV (RBC) [Entitic vol] 86.3 fL Normal 80.0-100.[address] [facility] Comment on above: Order Comment: Speci men Type: BLOOD SPECIMENOrdering Facility: [facility] Address: [address] [place] [address] Performed By: #### 5 8410-2 ####[facility] NAPLESJALEN [id number] [place] [address] [place] Nucleated RBC (Bld) [#/Vol] 10*3/uL Normal <0.01 [facility] Comment on above: Order Comment: Speci men Type: BLOOD SPECIMENOrdering Facility: [facility] Address: [address] [place] [address] Performed By: #### 5 8410-2 ####[facility] NAPLESAROLDOLIA [id number] [place] [address] [place] Platelet mean volume (Bld) [Entitic vol] 9.0 fL Normal 9.0-12.7 [facility] Comment on above: Order Comment: Speci men Type: BLOOD SPECIMENOrdering Facility: [facility] Address: [address] [place] [address] Performed By: #### 5 8410-2 ####[facility] JOSE JUANWNCLIA [id number] [place] [address] [place] Platelets (Bld) [#/Vol] 273 10*3/uL Normal 150-400 [facility] Comment on above: Order Comment: Speci men Type: BLOOD SPECIMENOrdering Facility: [facility] Address: [address] [place] [address] Performed By: #### 5 8410-2 ####[facility] NAPLESNCLIA [id number] [place] [address] [place] RBC (Bld) [#/Vol] 4.60 10*6/uL Normal 3.90-5.20 [facility] Comment on above: Order Comment: Speci men Type: BLOOD SPECIMENOrdering Facility: [facility] Address: [address] [place] [address] Performed By: #### 5 8410-2 ####[facility] NAPLESNCLIA [id number] [place] [address] [place] WBC (Bld) [#/Vol] 5.90 10*3/uL Normal 3.70-11.00 [facility] Comment on above: Order Comment: Speci men Type: BLOOD SPECIMENOrdering Facility: [facility] Address: [address] [place] [address] Performed By: #### 5 8410-2 ####[facility] NAPLESNCLIA [id number] [place] [address] [place] Comprehensive metabolic 2000 panelon 03-01-2025 Albumin [Mass/Vol] 4.1 g/dL Normal 3.9-4.9 [facility] Comment on above: Order Comment: Speci men Type: BLOOD SPECIMENOrdering Facility: [facility] Address: [address] [place] [address] Performed By: #### 2 4323-8 ####[facility] NAPLESAROLDOLIA [id number] [place] [address] [place] ALP [Catalytic activity/Vol] 73 U/L Normal 34-123 [facility] Comment on above: Order Comment: Speci men Type: BLOOD SPECIMENOrdering Facility: [facility] Address: [address] [place] [address] Performed By: #### 2 4323-8 ####[facility]ENTERWNCLIA [id number] [place] [address] [place] ALT [Catalytic activity/Vol] 22 U/L Normal 7-38 [facility] Comment on above: Order Comment: Speci men Type: BLOOD SPECIMENOrdering Facility: [facility] Address: [address] [place] [address] Performed By: #### 2 4323-8 ####[facility] NAPLESNCLIA [id number] [place] [address] [place] Anion gap [Moles/Vol] 10 mmol/L Normal 8-15 [facility] Comment on above: Order Comment: Speci men Type: BLOOD SPECIMENOrdering Facility: [facility] Address: [address] [place] [address] Performed By: #### 2 4323-8 ####[facility] NAPLESNCLIA [id number] [place] [address] [place] AST [Catalytic activity/Vol] 23 U/L Normal 13-35 [facility] Comment on above: Order Comment: Speci men Type: BLOOD SPECIMENOrdering Facility: [facility] Address: [address] [place] [address] Performed By: #### 2 4323-8 ####[facility] NAPLESNCLIA [id number] [place] [address] [place] Bilirubin [Mass/Vol] 0.9 mg/dL Normal 0.2-1.3 [facility] Comment on above: Order Comment: Speci men Type: BLOOD SPECIMENOrdering Facility: [facility] Address: [address] [place], [place] [address] Performed By: #### 2 4323-8 ####[facility] PATRIAWAROLDOLIA [id number] [place] [address] [place] Calcium [Mass/Vol] 9.2 mg/dL Normal 8.5-10.2 [facility] Comment on above: Order Comment: Speci men Type: BLOOD SPECIMENOrdering Facility: [facility] Address: [address] [place] [address] Performed By: #### 2 4323-8 ####[facility] NAPLESNCLIA [id number] [place] [address] [place] Chloride [Moles/Vol] 104 mmol/L Normal 98-107 [facility] Comment on above: Order Comment: Speci men Type: BLOOD SPECIMENOrdering Facility: [facility] Address: [address] [place] [address] Performed By: #### 2 4323-8 ####[facility] NAPLESNCLIA [id number] [place] [address] [place] CO2 [Moles/Vol] 24 mmol/L Normal 22-30 [facility] Comment on above: Order Comment: Speci men Type: BLOOD SPECIMENOrdering Facility: [facility] Address: [address] [place] [address] Performed By: #### 2 4323-8 ####[facility]ENTERWNCLIA [id number] [place] [address] [place] Creatinine [Mass/Vol] 0.77 mg/dL Normal 0.58-0.96 [facility] Comment on above: Order Comment: Speci men Type: BLOOD SPECIMENOrdering Facility: [facility] Address: [address] [place], [place] [address] Performed By: #### 2 4323-8 ####[facility] NAPLESNCLIA [id number] [place] [address] [place] eGFRcr SerPlBld CKD-EPI 2020 103 mL/min/1.73m??? Normal >=60 [facility] Comment on above: Order Comment: Telly sams Type: BLOOD SPECIMENOrdering Facility: [facility] Address: [address] [place] [address] Result Comment: Sudha mated Glomerular Filtration Rate [...] actual GFR. Performed By: #### 2 4323-8 ####[facility] NAPLESNCLI [id number] [place] [address] [place] [facility] Glucose [Mass/Vol] 97 mg/dL Normal 74-99 [facility] Comment on above: Order Comment: Telly sams Type: BLOOD SPECIMENOrdering Facility: [facility] Address: [address] [place] [address] Result Comment: The [place] [employer] (ADA) provides guidance for cutoff [...] Standards of Medical Care in Diabetes 2016, [place] [employer]. Diabetes Care. 2016.39(Suppl 1). Performed By: #### 2 4323-8 ####[facility] NAPLESNCLI [id number] [place] [address] [place] Potassium [Moles/Vol] 4.3 mmol/L Normal 3.7-5.1 [facility] Comment on above: Order Comment: Speci men Type: BLOOD SPECIMENOrdering Facility: [facility] Address: [address] [place] [address] Performed By: #### 2 4323-8 ####[facility] TRAVIS MILLTOWNCLIA [id number] [place] [address] [place] Protein [Mass/Vol] 6.9 g/dL Normal 6.3-8.0 [facility] Comment on above: Order Comment: Speci men Type: BLOOD SPECIMENOrdering Facility: [facility] Address: [address] [place] [address] Performed By: #### 2 4323-8 ####[facility] MILLTOWNCLIA [id number] [place] [address] [place] Sodium [Moles/Vol] 138 mmol/L Normal 136-144 [facility] Comment on above: Order Comment: Speci men Type: BLOOD SPECIMENOrdering Facility: [facility] Address: [address] [place] [address] Performed By: #### 2 4323-8 ####[facility] MILLTOWNCLIA [id number] [place] [address] [place] Urea nitrogen [Mass/Vol] 16 mg/dL Normal 7-21 [facility] Comment on above: Order Comment: Speci men Type: BLOOD SPECIMENOrdering Facility: [facility] Address: [address] [place] [address] Performed By: #### 2 4323-8 ####[facility] MILLTOWNCLIA [id number] [place] [address] [place] Ferritin SerPl-mCncon 2024 Ferritin [Mass/Vol] 32.2 ng/mL Normal 14.7-205.1 [facility] Comment on above: Order Comment: Speci men Type: BLOOD SPECIMENOrdering Facility: [facility] Address: [address] [place] [address] Performed By: #### 2 276-4, 73414-0 ####[facility] LABCLIA [id number] [place] [address] [place] Folate SerPl-mCncon 03-01-20 Folate [Mass/Vol] 8.0 ng/mL Normal >4.7 [facility] Comment on above: Order Comment: Speci men Type: BLOOD SPECIMENOrdering Facility: [facility] Address: [address] [place] [address] Performed By: #### 2 284-8, 2731-8, 2132-9 ####[facility] LABCLIA [id number] [place] [address] [place] Iron and Iron binding capaci ty panel 03-01-2025 Iron [Mass/Vol] 78 ug/dL Normal 41-186 [facility] Comment on above: Order Comment: Speci men Type: BLOOD SPECIMENOrdering Facility: [facility] Address: [address] [place] [address] Performed By: #### 2 276-4, 54132-0 ####[facility] LABCLIA [id number] [address] [place] Iron binding capacity [Mass/Vol] 364 ug/dL Normal 232-386 [facility] Comment on above: Order Comment: Speci men Type: BLOOD SPECIMENOrdering Facility: [facility] [facility] Address: [address] [place] [address] Performed By: #### 2 276-4, 56596-7 ####[facility] LABCLIA [id number] [place] [address] [place] Iron/TIBC [Molar ratio] 21.4 % Normal 15.0-57.[address] [facility] Comment on above: Order Comment: Speci men Type: BLOOD SPECIMENOrdering Facility: [facility] Address: [address] [place], [place] [id number] Performed By: #### 2 276-4, 13349-2 ####[facility] LABCLIA [id number] [address] [place] PTH-Intact SerPl-mCncon 10-2 Parathyrin.intact [Mass/Vol] 57 pg/mL Normal 15-65 [facility] Comment on above: Order Comment: Speci men Type: BLOOD SPECIMENOrdering Facility: [facility] Address: [address] [place] [address] Performed By: #### 2 284-8, 2731-8, 2132-9 ####[facility] LABCLIA [id number] [address] [place] US THYROID/PARATHYROIDon US THYROID/PARATHYROID * * *Final Report * * * DATE OF EXAM: Mar 01 2025 10:15AM WRU 1048 - US THYROID/PARATHYROID / PROCEDURE REASON: Thyroid nodule * * * * Physician Interpretation * * * * EXAMINATION: THYROID ULTRASOUND CLINICAL HISTORY: Thyroid nodule TECHNIQUE: Sonography and Doppler imaging of the thyroid was performed. Images were obtained and stored in a permanent archive and interpreted remotely. MQ: UST_1 COMPARISON: Ultrasound dated 12/19/2023 RESULT: Right Lobe: 6.0 cm x 2.4 cm x 1.8 cm; heterogeneous echogenicity, expected vascular flow. Left Lobe: 5.4 cm x 2.1 cm x 1.7 cm; heterogeneous echogenicity, expected vascular flow. Isthmus: 0.4 cm The most suspicious thyroid nodule(s) (up to four) as below: NODULE 1: Location: Right lower pole Size: 0.7 x 0.9 x 1.0 cm, previously 0.6 x 0.8 x 0.9 cm Characteristics: Composition: Solid or almost completely solid, 2 points Echogenicity: Hypoechoic, 2 points Shape: Ssyod-tygw-bwrn, 0 points Margin: Lobulated or irregular, 2 points Echogenic foci (add points for all that apply): Macrocalcifications, 1 point Internal vascularity: present Interval growth: Very slightly increased in size TI-RADS Category: TR5 ACR Recommendation: TI-RADS 5 nodule. FNA is advised. NODULE 2: Location: Right lower pole Size: 1.0 x 1.0 x 1.3 cm, previously 1.0 x 1.1 x 1.4 cm Characteristics: Composition: Composition cannot be determined because of calcification, 2 points Echogenicity: Echogenicity cannot be determined, 1 point Shape: Ckfbg-trjw-cxxp, 0 points Margin: Smooth, 0 points Echogenic foci (add points for all that apply): Peripheral (rim) calcification (complete or incomplete), 2 points Internal vascularity: None appreciable Interval growth: None TI-RADS Category: TR4 ACR Recommendation: TI-RADS 4 nodule. Follow up imaging in 1, 2, 3 and 5 years is advised. IMPRESSION: Thyroid nodule(s) is/are present. Fine needle aspiration is recommended if not previously performed. . TI-RADS Category: TR5 ACR Recommendation: TI-RADS 5 nodule. FNA is advised. ACR recommendations are strictly based on the size and imaging appearance at the time of the exam and do not consider stability or previous biopsy results. Bonding [facility] Transcribe Date/Time: Mar 05 2025 5:51A Dictated by : JULIANA PACK MD This examination was interpreted and the report reviewed and electronically signed by: JULIANA PACK MD on Mar 05 2025 9:44AM EST [id number] N Normal [facility] VITAMIN B1 (THIAMINE), WHOLE BLOODon 03-01-2025 Thiamine (Bld) [Moles/Vol] 153.7 nmol/L Normal 84.3-213.3 [facility] Comment on above: Order Comment: Speci men Type: BLOOD SPECIMENOrdering Facility: [facility] Address: [address] [place] [address] Result Comment: This assay measures the concentration of thiamine diphosphate (TDP), the primary active form of vitamin B1. Approximately 90 percent of vitamin B1 present in whole blood is TDP. Thiamine and thiamine monophosphate, which comprise the remaining 10 percent, are not measured. This test was developed, and its performance characteristics determined by the [facility] Department of Pathology and Laboratory Medicine. It has not been cleared or approved by the FDA. The [facility] Department of Pathology and Laboratory Medicine is regulated under CLIA as qualified to perform high-complexity testing. This test is used for clinical purposes. It should not be regarded as investigational or for research. Performed By: #### B 1WB ####[facility] LABCLIA [id number] [address] OF [facility] Vit B12 SerPl-mCncon 10-24-2 025 Cobalamin (Vitamin B12) [Mass/Vol] 618 pg/mL Normal 232-1245 [facility] Comment on above: Order Comment: Speci men Type: BLOOD SPECIMENOrdering Facility: [facility] Address: [address] [place] [address] Performed By: #### 2 284-8, 2731-8, 2132-9 ####[facility] LABCLIA [id number] [address] CNOVon 01-17-2025 CNOV Office Visit (ENDCMN ) MARY JUNIOR ([id number]) 1990 F Date Time Provider Department 01/17/25 10:40 AM MANUELA ISBELL During your visit today, we recorded the following information about you: Pulse Blood pressure Weight 68/minute 128/85 109.3 kg Aniya Woo MA 01/17/2025 10:05 AM Signed Thank you for choosing the [facility] Department of Endocrinology, Diabetes and Metabolism. Did you know that you need to call 48 hours in advance of your scheduled visit, if you are unable to make your appointment? [facility] thanks you for your commitment, because patients not showing to their appointment results in a lost opportunity for patients to receive world class health care at the [facility]. To Cancel an appointment, please choose one of the following: - Call the Appointment Call Center at [phone] - From [facility], Go to Appointments - Cancel Appts If cancelling, consider your need to reschedule to prevent further delays in your care. To Schedule an appointment, please choose one of the following: - Call the Appointment Call Center at [phone] - From [facility], Go to Appointments - Request an Appt Manuela Isbell MD 01/17/2025 3:52 PM Signed [facility] [...] lb) 413 lbs Lowest weight 192 lbs [place] weight: 72.4 kg (159 lb 11 oz) Excess weight: 84.1 kg (185 lb 5 oz) % of excess body weight lost: 156.5 kg (345 lb) (186.17% of excess weight loss) Interval history: Fasting labs (after 15 hrs of fasting) with no hypoglycemia. Started on Dexcom at last visit. She was in the ED twice in the summer for stomachache: concern for possible UC or Crohn's She can't keep the sensor on her arm (falls out frequently). She did not feel well last week, not sure if it is related to her BG or stomachache. Checks her BG few days a week (only when symptomatic) lowest down to 58 mg/dL. Obesity Medications: Phentermine with poor response. Semaglutide not covered by insurance. Hypoglycemia medications: Did not tolerate Acarbose DIET INTAKE: Follows up with Stef CHERY from BMI: More watermelon, chicken, salmon and beef. Does not have a huge appetite. Drinks 3/4-1 gallon a day of water Wakes up at 3-4 am: not doing creatine as she has not been feeling well, pre workout water with 100 mg of caffeine and vitamin complex She works out for 75 minutes: strength and cardio Home at 6 am and protein shake with stavia, egg shake with pepper, coffee one cup a day with stavia At 8 am: protein yogurt, sourdough with avocado, meat and cheese. At noon: danish yogurt with berries , beef jerky No snacks. Water and protein yogurt. Dinner at 7 pm: protein and veggies. Did not tolerate pasta. No alcohol Switched to decaf caffeine. Sometimes sips water after food. Resting Metabolic Rate: 1806 Averaging 1100 fang a day. DAILY SUPPLEMENTS: Yes Calcium: Calcium Citrate w/ vitamin D (1200 - 1500mg) 3 tablets daily Multivitamin AND Minerals: 1 per day Iron Supplement: none Vitamin D3: 4000 IU Other: vitamin A, B complex EXERCISE: She works out for an hour to an hour and half: strength and cardio SLEEP: MARIAM No , CPAP No REVIEW OF SYSTEMS: Review of Systems Constitutional: Positive for night sweats. Negative for recent unintentional weight change. Eyes: Negative for visual disturbance. Respiratory: Negative for difficulty breathing. Cardiovascular: Negative for chest pain and leg swelling. Gastrointestinal: Negative for nausea and diarrhea. Musculoskeletal: Positive for myalgias. Neurological: Positive for headaches. Negative for dizziness. MEDICATIONS: Current Outpatient Medications on File Prior to Visit Medication Sig Blood-Glucose Meter,Continuous (FREESTYLE CONNIE 3 READER) [facility] Use to check blood sugar at least four (4) times daily. Blood-Glucose Sensor (FREESTYLE CONNIE 3 PLUS SENSOR) allison Apply new sensor every fifteen (15) days to upper arm. acarbose (PRECOSE) 25 mg tablet Take 2 tablets by mouth three times a day. glucagon 3 mg/actuation nasal spray (BAQSIMI) Use 1 Allgood in the nose as needed for low blood sugar. May repeat after 15 minutes using a new device if there is no response. Magnesium Oxide 500 mg cap Take 1 capsule by mouth once daily. Creatinine, Bulk, 100 % powd 1,500 mg once daily. amitriptyline (ELAVIL) 10 mg tablet Take 2 tablets by mouth (more content not included)... Normal [facility] Urgent Care Visit Reporton 0 12-26-2024 Urgent Care Visit Report [facility] [address], [address] [place] [address] OFFICE VISIT Date of Service: 12/26/24 MR#: [id number] Acct: [id number] Name: MARY JUNIOR Rep #: [id number] : 1990 Provider: STEVAN Gallegos Age/Sex: 34/F Location: [facility] Status: Signed Intake Vital Signs 11/09/24 08:17 12/26/24 06:35 Height 5 ft 7 in 5 ft 7 in BP 110/58 L Blood Pressure Location Lt brachial Position Sitting Respiration 16 Pulse 70 Pulse Source Monitor Temp 98.5 F Temp Source Temporal Pulse Oximetry (%) 98 Oxygen Delivery Method room air Intake Visit Reasons: EAR AND THROAT PAIN Social 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 Required: No Accompanied by: Self Is patient in pain?: Yes (B/L ear and throat pain) Pain scale (1-10): 4 Allergies metoprolol Allergy (Severe, Verified 12/26/24 06:32) Hives oxycodone HCl (From Percocet) Allergy (Severe, Verified 12/26/24 06:32) Hives hydrocodone bitartrate (From Vicodin) Allergy (Intermediate, Verified 12/26/24 06:32) Hives latex Allergy (Mild, Verified 12/26/24 06:32) Rash dicloxacillin Allergy (Verified 12/26/24 06:32) Hives Medications ???Medication ???Instructions ???Recorded ???Confirmed ???Type glucagon 3 mg/actuation nasal mg intranasal 09/21/24 12/26/24 Hi story spray (Baqsimi) benzonatate 200 mg capsule 200 mg PO TID PRN cough #20 caps 0 12/26/24 12/26/24 Rx methylprednisolone 4 mg tablets in See Rx Instructions PO PER PKG D IR 12/26/24 12/26/24 Rx a dose pack (Medrol (Danilo)) #21 tabs Nurse's Note: B/L ear and throat pain for 3 days. Painful to swallow. Reports dry cough at night. Denies fever or chills. [facility] Medical History Reactive hypoglycemia Acute bronchitis, unspecified Collin's thyroiditis Wears glasses [...] social history: Kash MOONEY HPI Details: MARY JUNIOR, is a 34 F who presents to the office today for initial evaluation in the [facility] for approximately 3 day history of persistent sore throat, bilateral ear discomfort, cough, nasal congestion. No complaints of fever, chills, OROURKE, myalgias, fatigue, nausea, and diarrhea. Patient notes no complaints of chest pain or shortness of breath or dyspnea on exertion. Unsure if close contacts recently dx???d w/ similar URI complaints. No lowz-kly-zpfijnj medications taken to assist. Non-smoker. Requesting PSA screening for streptococcal pharyngitis as well as COVID-19 and influenza. No other associated symptoms and no other alleviating/aggravati ng factors. ROS Const Constitutional: No other (As above) Exam Const General: cooperative, healthy appearing and no acute distress Orientation: alert, awake and oriented x3 HENMT Head: normal to inspection Ears: hearing grossly normal bilaterally, external ears normal, TM's normal bilaterally and EAC's normal Nose: external nose normal, nares normal, septum normal and clear nasal discharge Face and sinus: normal facial exam, sinuses nontender and face symmetric Mouth: oral mucosae normal, lip normal, tongue normal and oropharynx normal Throat: posterior oropharynx normal, tonsils trace erythema without exudate or hypertrophy, uvula midline and no postnasal drainage Eyes General: appearance normal, both eyes and all related structures Neck Neck: normal visual inspection, full ROM, no lymphadenopathy, no meningeal signs and supple Neck mass: No Thyroid: thyroid normal Lymphatic: no lymphadenopathy noted Chest Chest palpation inspection: normal inspection (more content not included)... Normal [facility] Basic metabolic 2000 panelon 12-05-2024 Anion gap [Moles/Vol] 12 mmol/L Normal 8-15 [facility] Comment on above: Order Comment: Speci men Type: BLOOD SPECIMENOrdering Facility: [facility] Address: [address] [place] [address] Performed By: #### 2 4321-2 ####[facility] MILLTOWNCLIA [id number] [place] [address] [place] Calcium [Mass/Vol] 9.5 mg/dL Normal 8.5-10.2 [facility] Comment on above: Order Comment: Speci men Type: BLOOD SPECIMENOrdering Facility: [facility] Address: [address] [place] [address] Performed By: #### 2 4321-2 ####[facility] MILLTOWNCLIA [id number] [place] [address] [place] Chloride [Moles/Vol] 101 mmol/L Normal 98-107 [facility] Comment on above: Order Comment: Speci men Type: BLOOD SPECIMENOrdering Facility: [facility] Address: [address] [place] [address] Performed By: #### 2 4321-2 ####[facility] MILLTOWNCLIA [id number] [place] [address] [place] CO2 [Moles/Vol] 24 mmol/L Normal 22-30 [facility] Comment on above: Order Comment: Speci men Type: BLOOD SPECIMENOrdering Facility: [facility] Address: [address] [place] [address] Performed By: #### 2 4321-2 ####[facility] MILLTOWNCLIA [id number] [place] [address] [place] Creatinine [Mass/Vol] 0.84 mg/dL Normal 0.58-0.96 [facility] Comment on above: Order Comment: Telly sams Type: BLOOD SPECIMENOrdering Facility: [facility] Address: [address] [place] [address] Performed By: #### 2 4321-2 ####[facility] [id number] [place] [address] [place] eGFRcr SerPlBld CKD-EPI 2020 93 mL/min/1.73m??? Normal >=60 [facility] Comment on above: Order Comment: Telly sams Type: BLOOD SPECIMENOrdering Facility: [facility] Address: [address] [place] [address] Result Comment: Sudha mated Glomerular Filtration Rate [...] reflect actual GFR. Performed By: #### 2 4321-2 ####[facility] [id number] [place] [address] [place] Glucose [Mass/Vol] 82 mg/dL Normal 74-99 [facility] Comment on above: Order Comment: Telly sams Type: BLOOD SPECIMENOrdering Facility: [facility] Address: [address] [place] [address] Result Comment: The [place] Diabetes Association (ADA) provides guidance for cutoff [...] Standards of Medical Care in Diabetes 2016, [place] [employer] Association. Diabetes Care. 2016.39(Suppl 1). Performed By: #### 2 4321-2 ####[facility] NAPLESNCKIMMY [id number] [place] [address] [place] Potassium [Moles/Vol] 4.4 mmol/L Normal 3.7-5.1 [facility] Comment on above: Order Comment: Speci men Type: BLOOD SPECIMENOrdering Facility: [facility] Address: [address] [place] [address] Performed By: #### 2 4321-2 ####[facility] [id number] [place] [address] [place] Sodium [Moles/Vol] 137 mmol/L Normal 136-144 [facility] Comment on above: Order Comment: Speci men Type: BLOOD SPECIMENOrdering Facility: [facility] Address: [address] [place] [address] Performed By: #### 2 4321-2 ####[facility] [id number] [place] [address] [place] Urea nitrogen [Mass/Vol] 18 mg/dL Normal 7-21 [facility] Comment on above: Order Comment: Speci men Type: BLOOD SPECIMENOrdering Facility: [facility] Address: [address] [place] [address] Performed By: #### 2 4321-2 ####[facility] [id number] [place] [address] [place] TSH SerPl-aCncon 12-05-2024 TSH Qn 1.860 m[IU]/L Normal 0.270-4.200 [facility] Comment on above: Order Comment: Speci men Type: BLOOD SPECIMENOrdering Facility: [facility] Address: [address] [id number] Result Comment: If t he patient is , TSH reference range varies by gestational period: First Trimester (weeks 9-12): 0.180-2.990 mIU/L Second Trimester: 0.110-3.980 mIU/L Third Trimester: 0.480-4.710 mIU/L Luis F Araya et al. A Practical Approach for the Verifications and Determination of Site- and Trimester-Specific Reference Intervals for Thyroid Function tests in . Thyroid, 2019:29:3:412-420. oYan Lin, et al. 2017 Guidelines of the [place] Thyroid Association for the Diagnosis and Management of Thyroid Disease during and the . Thyroid, 2017:27:3:315-389. Performed By: #### 3 016-3 ####[facility] LABCLIA [id number] [place] [id number] [facility] 12-04-2024 CNPN Telephone (EMQ) MARY JUNIOR ([id number]) 1990 F Date Time Provider Department 12/04/24 MANUELA ISBELL During your visit today, we recorded the following information about you: Heidi Horowitz 12/04/2024 3:27 PM Signed Lvm for pt stating that Dr. Isbell will be out of office on 12/20/24 and that we need to reschedule her appointment. Rescheduled appointment to 01/17/25 at 10:40am. Will send [employer] message. Allergies As of Date: 12/04/2024 Noted Allergy Reaction METOPROLOL 07/28/2011 4 - Hives 12 - Shortness of Breath Comments: heart racing DOXYCYCLINE 01/15/2020 4 - Hives LATEX 05/19/2009 2 - Rash PERCOCET (OXYCODONE-ACETAMINOP HEN)12/22/2012 9 - Itching Comments: Heart races TOMATOES 09/18/2009 7 - Swelling VICODIN (HYDROCODONE-ACETAMIN OPHE*02/24/2011 4 - Hives 9 - Itching Date Reviewed: 11/05/2024 Reviewed by: Stef Luis RD - Fully Assessed Reason for Visit: Appointment [186] Prescriptions as of 12/04/2024 - Blood-Glucose Sensor (DEXCOM G7 SENSOR) allison 1 EACH EVERY 10 DAYS. - acarbose (PRECOSE) 25 mg tablet Take 2 tablets by mouth three times a day. - glucagon 3 mg/actuation nasal spray (BAQSIMI) Use 1 Allgood in the nose as needed for low [...] (1800 daily) Problem List As Of Date 12/04/2024 Noted Resolved Weight gain [R63.5] 08/21/2009 10/22/2015 [...] 40) (HCC) [E66.01] 07/07/2021 Encounter Status:Closed by HEIDI HOROWITZ on 12/04/24 Normal [facility] Abdomen/Pelvis W IV Cont ONL Yon 11-09-2024 Abdomen/Pelvis W IV Cont ONLY [facility] Imaging Services [address] [place] [id number] Abdomen/Pelvis W IV Cont ONLY MR#: [id number] Acct: [id number] Name: MARY JUNIOR RICARDO Rep #: [id number] : 1990 F 34 From: J Carlos Bai MD PCP: Dr. Asif Haque MD Status: [facility] Study: Abdomen/Pelvis W IV Cont ONLY Date of Exam: Exam# [id number] Ordering Dr: Zan Pascal DO PROCEDURE: ABDOMEN/PELVIS W IV CONT ONLY 11/09/2024 REASON FOR EXAM: ABDOMINAL PAIN TECHNIQUE: ABDOMEN/PELVIS W IV CONT ONLY Coronal and Sagittal reconstruction series were provided. CONTRAST: Isovue 370 VOLUME: 100 mL One or more dose reduction techniques were used (e.g., Automated exposure control, adjustment of the mA and/or kV according to patient size, use of iterative reconstruction technique. RADIATION DOSE SUMMARY: CTDlvol: 32.35 mGy DLP: 1151.24 mGycm COMPARISON: 11/07/2024 FINDINGS: Lung bases: Unremarkable Liver: No discrete lesion. There is intrahepatic biliary dilatation consistent with previous cholecystectomy Gallbladder: Surgically absent. Spleen: Normal size. Pancreas: Normal size without evidence of mass surrounding inflammation or ductal dilation. Adrenals: Unremarkable Kidneys: No obstructive uropathy or suspicious solid renal lesion. Bladder: Unremarkable Reproductive Organs: Surgically absent Bowel: There is evidence of submucosal thickening and edema now noted in the hepatic flexure of the colon consistent with acute focal colitis in the distal ascending and proximal transverse colon. There is pericolonic inflammatory stranding but no perforation or abscess. As mentioned: This is new compared to yesterday's study. This is likely infectious or inflammatory. There are nondistended fluid-filled small bowel loops suggesting ileus. Evidence of previous abdominal surgery without evidence of anastomotic leak. If patient has a history of Crohn's or ulcerative colitis this could easily represent an acute exacerbation. Appendix: Normal appendix seen on coronal recon image 51 No free intraperitoneal fluid, air, or suspicious adenopathy. There are subcentimeter in short axis dimension mesenteric lymph nodes likely reactive. IVC and aorta are unremarkable. There is a small amount of free fluid in the dependent pelvis Bones: Normal CT/Abdomen/Pelvis W IV Cont ONLY IMPRESSION: Development of submucosal thickening and edema in the distal ascending with acute exacerbation of colitis, likely Crohn's or ulcerative colitis. This could also be infectious or inflammatory. There are associated subcentimeter in short axis dimension mesenteric lymph nodes that are likely reactive No suspicious solid organ abnormality, there is sequela of previous cholecystectomy No free intraperitoneal fluid, or air. Normal appendix visualized Reading Location: [facility] CC: Dr. Zan Pascal, ; Dr. Asif Haque MD Bonding Agent: Signed Normal [facility] Absolute lymphocyte countOrd ered By: Zan Pascal on 11-09-2024 Lymphocytes Auto (Unsp spec) [#/Vol] 1.11 10*3/uL 0.83-4.51 [facility] Absolute neutrophil countOrd ered By: Zan Pascal on 11-09-2024 Neutrophils (Bld) [#/Vol] 1.7 10*3/uL Low 2.0-7.7 [facility] Anion gap in Serum or Plasma Ordered By: Zan Pascal on 11-09-2024 Anion gap [Moles/Vol] 15 mmol/L 5-15 [facility] Automated lymphocyte count a s percentage of total leukocytesOrdered By: Zan Pascal on 11-09-2024 Lymphocytes/100 WBC Auto (Unsp spec) 32.4 % 19-41 [facility] BUN/creatinine ratioOrdered By: Zan Pascal on 11-09-2024 Urea nitrogen/Creatinine [Mass ratio] 11.8 mg/mg 10-20 [facility] Basophil percentageOrdered B y: Zan Pascal on 11-09-2024 Basophils/100 WBC (Bld) 0.3 % 0-1 [facility] Bilirubin Test strip Ql (U)O rdered By: Zan Pascal on 11-09-2024 Bilirubin Ql (U) Negative Negative [facility] Bilirubin, totalOrdered By: Zan Pascal on 11-09-2024 Bilirubin [Mass/Vol] 0.71 mg/dL 0.00-1.30 [facility] CBC W/Diff, Automatedon Absolute Lymph 1.11 X10 3/uL Normal 0.83-4.51 [facility] Comment on above: Performed By: #### L 500.4050, L501.2450, L100.0100 ####[facility] [address] [place], [address] Absolute Neut 1.7 X10 3/uL Low 2.0-7.7 [facility] Comment on above: Performed By: #### L 500.4050, L501.2450, L100.0100 ####[facility] [address] [place] [place], [address] Basophils/100 WBC (Bld) 0.3 % Normal 0-1 [facility] Comment on above: Performed By: #### L 500.4050, L501.2450, L100.0100 ####[facility] [facility] [address] [place], [address] Eosinophils/100 WBC (Bld) 1.7 % Normal 0-5 [facility] Comment on above: Performed By: #### L 500.4050, L501.2450, L100.0100 ####[facility] [address] [place], [address] Erythrocyte distribution width (RBC) [Ratio] 13.0 % Normal 11.6-14.6 [facility] Comment on above: Performed By: #### L 500.4050, L501.2450, L100.0100 ####[facility] [address] [place], [address] Hematocrit (Bld) [Volume fraction] 41.4 % Normal 37-47 [facility] Comment on above: Performed By: #### L 500.4050, L501.2450, L100.0100 ####[facility] [address] [place], [address] Hemoglobin (Bld) [Mass/Vol] 13.9 g/dL Normal 12.0-15.0 [facility] Comment on above: Performed By: #### L 500.4050, L501.2450, L100.0100 ####[facility] [address] [place], [address] IG% 0.300 Normal 0.0-0.9 [facility] Comment on above: Result Comment: IG% - Immature Granulocytes (promyelocytes, myelocytes and metamyelocytes) > 1% indicates that a LEFT SHIFT is Present. Performed By: #### L 500.4050, L501.2450, L100.0100 ####[facility] [address] [place], [address] Lymphocytes/100 WBC (Bld) 32.4 % Normal 19-41 [facility] Comment on above: Performed By: #### L 500.4050, L501.2450, L100.0100 ####[facility] [address] [place], [address] MCH (RBC) [Entitic mass] 29.2 pg Normal 27.0-32.0 [facility] Comment on above: Performed By: #### L 500.4050, L501.2450, L100.0100 ####[facility] [address] [place], [address] MCHC (RBC) [Mass/Vol] 33.6 g/dL Normal 32-36 [facility] Comment on above: Performed By: #### L 500.4050, L501.2450, L100.0100 ####[facility] [address] [place], [address] MCV (RBC) [Entitic vol] 87.0 fL Normal 81-99 [facility] Comment on above: Performed By: #### L 500.4050, L501.2450, L100.0100 ####[facility] [address] [place], [address] Monocytes/100 WBC (Bld) 14.9 % High 0-10 [facility] Comment on above: Performed By: #### L 500.4050, L501.2450, L100.0100 ####[facility] [address] [place], [address] Neutrophils/100 WBC (Bld) 50.4 % Normal 47-70 [facility] Comment on above: Performed By: #### L 500.4050, L501.2450, L100.0100 ####[facility] [address] [place], [address] Nucleated RBC (Bld) [#/Vol] 0 10*3/uL Normal 0-5 [facility] Comment on above: Performed By: #### L 500.4050, L501.2450, L100.0100 ####[facility] [address] [place], [address] Platelet mean volume (Bld) [Entitic vol] 9.7 fL Normal 6.2-12.0 [facility] Comment on above: Performed By: #### L 500.4050, L501.2450, L100.0100 ####[facility] [address] [place], [address] Platelets (Bld) [#/Vol] 222 10*3/uL Normal 150-450 [facility] Comment on above: Performed By: #### L 500.4050, L501.2450, L100.0100 ####[facility] [address] [place], [address] RBC (Bld) [#/Vol] 4.76 10*6/uL Normal 4.2-5.4 [facility] Comment on above: Performed By: #### L 500.4050, L501.2450, L100.0100 ####[facility] [address] [place], [address] RDW SD 41.7 fl Normal 35.1-43.9 [facility] Comment on above: Performed By: #### L 500.4050, L501.2450, L100.0100 ####[facility] [address] [place], [address] WBC (Bld) [#/Vol] 3.4 10*3/uL Low 4.4-11.0 [facility] Comment on above: Performed By: #### L 500.4050, L501.2450, L100.0100 ####[facility] [address] [place], [address] Carbon dioxide, total [Moles /volume] in Central venous bloodOrdered By: Zan Pascal on 11-09-2024 CO2 [Moles/Vol] 20.8 mmol/L Low 21.0-32.0 [facility] Chloride assayOrdered By: Norm Pascal on 11-09-2024 Chloride [Moles/Vol] 101 mmol/L 98-108 [facility] Comprehensive Metabolic Prof ilon 11-09-2024 Albumin [Mass/Vol] 3.6 g/dL Normal 3.5-5.0 [facility] Comment on above: Performed By: #### L 500.4050, L501.2450, L100.0100 ####[facility] [address] [place], [address] Albumin/Globulin [Mass ratio] 1.1 {ratio} Normal 0.9-2.4 [facility] Comment on above: Performed By: #### L 500.4050, L501.2450, L100.0100 ####[facility] [address] [place], [address] ALK PHOS 67 U/L Normal 35-104 [facility] Comment on above: Performed By: #### L 500.4050, L501.2450, L100.0100 ####[facility] [address] [place], [address] ALT [Catalytic activity/Vol] 22 U/L Normal <=34 [facility] Comment on above: Performed By: #### L 500.4050, L501.2450, L100.0100 ####[facility] [address] [place], [address] AST [Catalytic activity/Vol] 23 U/L Normal <=31 [facility] Comment on above: Performed By: #### L 500.4050, L501.2450, L100.0100 ####[facility] [address] [place], [address] Bilirubin [Mass/Vol] 0.71 mg/dL Normal 0.00-1.30 [facility] Comment on above: Performed By: #### L 500.4050, L501.2450, L100.0100 ####[facility] [address] [place], [address] BUN/CRE 11.8 RATIO Normal 10-20 [facility] Comment on above: Performed By: #### L 500.4050, L501.2450, L100.0100 ####[facility] [address] [place], [address] Calcium [Mass/Vol] 8.7 mg/dL Normal 7.6-11.0 [facility] Comment on above: Performed By: #### L 500.4050, L501.2450, L100.0100 ####[facility] [address] [place], [address] Chloride [Moles/Vol] 101 mmol/L Normal 98-108 [facility] Comment on above: Performed By: #### L 500.4050, L501.2450, L100.0100 ####[facility] [address] [place], [address] CO2 [Moles/Vol] 20.8 mmol/L Low 21.0-32.0 [facility] Comment on above: Performed By: #### L 500.4050, L501.2450, L100.0100 ####[facility] [address] [place], [address] Creatinine [Mass/Vol] 0.85 mg/dL Normal 0.70-1.20 [facility] Comment on above: Performed By: #### L 500.4050, L501.2450, L100.0100 ####[facility] [address] [place], [address] ECRCL 115.82 ml/min Normal 50-250 [facility] Comment on above: Performed By: #### L 500.4050, L501.2450, L100.0100 ####[facility] [address] [place], [address] GAP 15 Normal 5-15 [facility] Comment on above: Performed By: #### L 500.4050, L501.2450, L100.0100 ####[facility] [address] [place], [address] GFR/1.73 sq M.predicted among non-blacks MDRD (S/P/Bld) [Vol rate/Area] 92 mL/min/{1.73_m2} Normal >60 [facility] Comment on above: Result Comment: mL/m in/1.73m2 CKD-EPI Creatinine Equation (2020) Performed By: #### L 500.4050, L501.2450, L100.0100 ####[facility] [address] [place], [address] Globulin (S) [Mass/Vol] 3.2 g/dL Normal 2.2-4.2 [facility] Comment on above: Performed By: #### L 500.4050, L501.2450, L100.0100 ####[facility] [address] [place], [address] Glucose [Mass/Vol] 84 mg/dL Normal 70-99 [facility] Comment on above: Performed By: #### L 500.4050, L501.2450, L100.0100 ####[facility] [address] [place], [address] Potassium [Moles/Vol] 3.6 mmol/L Normal 3.3-5.1 [facility] Comment on above: Performed By: #### L 500.4050, L501.2450, L100.0100 ####[facility] [address] [place], [address] Sodium [Moles/Vol] 137 mmol/L Normal 133-145 [facility] Comment on above: Performed By: #### L 500.4050, L501.2450, L100.0100 ####[facility] [address] [place], [address] T PROT 6.8 g/dL Normal 5.9-8.4 [facility] Comment on above: Performed By: #### L 500.4050, L501.2450, L100.0100 ####[facility] [address] [place], [address] Urea nitrogen [Mass/Vol] 10 mg/dL Normal 4-19 [facility] Comment on above: Performed By: #### L 500.4050, L501.2450, L100.0100 ####[facility] [address], [address] Emergency Department Summary on 11-09-2024 Emergency Department Summary [facility] Medical Records Department [address] [place] [address] Emergency Department Summary 11/09/24 MR#: [id number] Acct: [id number] Name: MARY JUNIOR RICARDO Rep #: [id number] : 1990 34 From: Zan Pascal DO PCP: Dr. Asif Haque MD Status:DEP ER Location: ED HPI HPI - GI History of Present Illness Chief Complaint: Abd Pain Informant: patient Abdominal Pain/Flank Pain Onset: Days (3) Context: Gradual Onset Timing: Continuous Quality: Cramping Location: Diffuse Worsened by: Food and Movement Relieved by: Nothing Nausea/Vomiting/Emesi s GI Symptom: Positive for Nausea and Vomiting Quality: Positive for Nonbilious; Negative for Blood streaks, Coffee ground or Hematemesis Diarrhea/Melena/Hemat ochezia GI Symptom: Positive for Diarrhea; Negative for Melena or Hematochezia Associated Symptoms Associated Symptoms: Negative for Dysuria, Frequency or Hematuria Narrative Narrative: Patient presents with abdominal pain that has been getting worse over the past 3 days. Patient states it is gradually getting worse. Patient describes it as cramping. Patient states it is diffuse across her entire abdomen. Patient states it is worse with any movement. Patient states it is worse with any food or drink. Patient admits to some nausea and vomiting. Patient denies any hematemesis or coffee-ground emesis. Patient admits to some diarrhea but denies any melena or hematochezia. Patient denies any urinary complaints. Patient admits to a low-grade fever of 100 at home. [facility] Medical History Reactive hypoglycemia Acute bronchitis, unspecified Collin's thyroiditis Wears glasses Depression Anxiety Low iron Easy bruising Migraine headache Heartburn Former smoker Leg cramps History of irregular heartbeat Abnormal uterine bleeding (AUB) Shoulder pain SOB (shortness of breath) History of pre-eclampsia Home Medications ???Medication ???Instructions ???Recorded ???Last Taken ???Type glucagon 3 mg/actuation nasal mg intranasal 09/21/24 Unknown His tory spray (Baqsimi) acarbose 25 mg tablet 50 mg PO TID 11/07/24 Unknown Hist ory Held on 11/07/24. Instructions: not been taking dicyclomine 20 mg tablet 20 mg PO 4X/DAY PRN Abdominal 07/03 Unknown Rx bloating/spasm #28 tabs ondansetron 4 mg disintegrating 4 mg PO TID PRN nausea and 5 Unknown Rx tablet vomiting #21 tabs ciprofloxacin HCl 500 mg tablet 500 mg PO BID #20 TABLETS 11/09/24 Unknown Rx metronidazole 500 mg tablet 500 mg PO Q6H #40 tabs 11/09/24 Un known Rx Allergy/AdvReac Type Severity Reaction Status Date / Time metoprolol Allergy Severe Hives Verified 11/09/24 08:17 oxycodone HCl (From Percocet) Allergy Severe Hives Verified 11/09/24 08:17 hydrocodone bitartrate (From Allergy Intermediate Hives Verified 11/09/24 08:17 Vicodin) latex Allergy Mild Rash Verified 11/09/24 08:17 dicloxacillin Allergy Hives Verified 11/09/24 08:17 Family History Grandmother Cancer Anxiety Osteoporosis Thyroid disorder Father Bleeding disorder Liver disease Mother Anesthesia complication Diabetes Hypertension Surgical History Status post bariatric surgery S/P hernia surgery H/O gastric bypass Hx of cholecystectomy History of total vaginal hysterectomy (TVH) S/P vaginal hysterectomy ( 02/24/21) Status post bilateral salpingectomy ( 09/25/19) History of foot surgery History of tonsillectomy Hx LEEP (loop electrosurgical excision procedure), cervix, Social History Smoking Status: Former smoker second hand exposure: No alcohol intake: never substance use type: does not use caffeine: No what type of physical activity do you participate in: none and other details: 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 seatbelt use: always do you feel safe at home: Yes additional social history: [employer] ED Constitutional Constitutional ED: Reports fever(s) and subjective; Denies chills Eyes Eyes: Denies blurry vision or change in vision ENT ENT ED: Denies rhinorrhea or sore throat Cardiovascular Cardiovascular: Denies chest pain or palpitations Respiratory/Chest Respiratory/Chest: Denies cough or dyspnea Gastrointestinal Gastrointestinal: Reports abdominal pain, diarrhea, nausea and vomiting; Denies melena Genitourinary Genitourinary ED: Denies dysuria or hematuria Musculoskeletal Musculoskeletal: Reports back pain; Denies neck pain Integumentary Denies abscess or rash Neurologic Neurologic: Reports headache(s); Denies weakness Allergic/Immunologic Allergic/Immunologic ED: Denies mouth swe (more content not included)... Normal [facility] Eosinophil percentageOrdered By: Zan Pascal on 11-09-2024 Eosinophils/100 WBC (Bld) 1.7 % 0-5 [facility] Erythrocyte distribution wid th ratioOrdered By: Zan Pascal on 11-09-2024 Erythrocyte distribution width (RBC) [Ratio] 13.0 % 11.6-14.6 [facility] Erythrocyte distribution wid th standard deviationOrdered By: Zan Pascal on 11-09-2024 Erythrocyte distribution width (RBC) [Ratio] 41.7 fl 35.1-43.9 [facility] Glomerular filtration rate ( GFR) estimation/1.73 sq m using serum, plasma, or whole bOrdered By: Zan Pascal on 11-09-2024 GFR/1.73 sq M.predicted among non-blacks MDRD (S/P/Bld) [Vol rate/Area] 92 mL/min/{1.73_m2} >60 [facility] Comment on above: mL/min/1.73m2 CKD-EP I Creatinine Equation (2020) Hematocrit Auto (Bld) [Volum e fraction]Ordered By: Zan Pascal on 11-09-2024 Hematocrit (Bld) [Volume fraction] 41.4 % 37-47 [facility] Hemoglobin measurementOrdere d By: Zan Pascal on 11-09-2024 Hemoglobin (Bld) [Mass/Vol] 13.9 g/dL 12.0-15.0 [facility] Immature granulocytes/100 WB C Auto (Bld)Ordered By: Zan Pascal on 11-09-2024 Immature granulocytes/100 WBC (Bld) 0.300 % 0.0-0.9 [facility] Comment on above: IG% - Immature Granu locytes (promyelocytes, myelocytes and metamyelocytes) > 1% indicates that a LEFT SHIFT is Present. Ketones Test strip Ql (U)Ord ered By: Zan Pascal on 11-09-2024 Ketones Ql (U) 150 mg/dl Abnormal Negative [facility] Comment on above: CRITICAL VALUE *H Laboratory - Chemistry and C hemistry - challengeOrdered By: Zan Pascal on 11-09-2024 AST [Catalytic activity/Vol] 23 U/L <32 [facility] Lipaseon 11-09-2024 Lipase [Catalytic activity/Vol] 20 U/L Normal 13-75 [facility] Comment on above: Result Comment: Gene decker note: LIPASE revised reference range effective 22. New Lipase methodology. Expected to produce lower values than the previous assay method. NEW Reference Range: 13 - 75 U/L Performed By: #### L 500.4050, L501.2450, L100.0100 ####[facility] [address] [facility] [place], [address] Lipase measurementOrdered By : Zan Pascal on 11-09-2024 Lipase [Catalytic activity/Vol] 20 U/L 13-75 [facility] Comment on above: Please note:LIPASE r evised reference range effective 22. New Lipase methodology. Expected to produce lower values than the previous assay method. NEW Reference Range: 13 - 75 U/L MCV (mean corpuscular volume ) determinationOrdered By: Zan Pascal on 11-09-2024 MCV (RBC) [Entitic vol] 87.0 fL 81-99 [facility] Mean corpuscular hemoglobin (MCH) determinationOrdered By: Zan Pascal on 11-09-2024 MCH (RBC) [Entitic mass] 29.2 pg 27.0-32.0 [facility] Mean corpuscular hemoglobin concentration (MCHC) determinationOrdered By: Zan Pascal on 11-09-2024 MCHC (RBC) [Mass/Vol] 33.6 g/dL 32-36 [facility] Mean platelet volume determi nationOrdered By: Zan Pascal on 11-09-2024 Platelet mean volume (Bld) [Entitic vol] 9.7 fL 6.2-12.0 [facility] Microscopic analysis of urin e for red blood cells (RBC)Ordered By: Zan Pascal on 11-09-2024 Microscopic analysis of urine for red blood cells (RBC) 0 SEEN /hpf 0-5 [facility] Monocyte percentageOrdered B y: Zan Pascal on 11-09-2024 Monocytes/100 WBC (Bld) 14.9 % High 0-10 [facility] Mucus LM Ql (Urine sed)Order ed By: Zan Pascal on 11-09-2024 Mucus Ql (Urine sed) 0 SEEN /hpf [facility] Neutrophil percentageOrdered By: Zan Pascal on 11-09-2024 Neutrophils/100 WBC (Bld) 50.4 % 47-70 [facility] Nitrite Test strip Ql (U)Ord ered By: Zan Pascal on 11-09-2024 Nitrite Ql (U) Negative Negative [facility] Nucleated red blood cell per centageOrdered By: aZn Pascal on 11-09-2024 Nucleated RBC/100 WBC (Bld) [Ratio] 0 % 0-5 [facility] Platelet countOrdered By: Norm Pascal on 11-09-2024 Platelets (Bld) [#/Vol] 222 10*3/uL 150-450 [facility] Potassium measurement (mass/ volume)Ordered By: Zan Pascal on 11-09-2024 Potassium (Unsp spec) [Mass/Vol] 3.6 mmol/L 3.3-5.1 [facility] Protein Test strip Ql (U)Ord ered By: Zan Pascal on 11-09-2024 Protein Ql (U) 15 mg/dl High Negative [facility] RBC Auto (Bld) [#/Vol]Ordere d By: Zan Pascal on 11-09-2024 RBC (Bld) [#/Vol] 4.76 10*6/uL 4.2-5.4 [facility] Serum creatinine measurement (mass/volume)Ordered By: Zan Pascal on 11-09-2024 Creatinine [Mass/Vol] 0.85 mg/dL 0.70-1.20 [facility] Serum globulin measurementOr dered By: Zan Pascal on 11-09-2024 Globulin (S) [Mass/Vol] 3.2 g/dL 2.2-4.2 [facility] Serum glucose measurement (m ass/volume)Ordered By: Zan Pascal on 11-09-2024 Glucose [Mass/Vol] 84 mg/dL 70-99 [facility] Serum or plasma alanine amdden otransferase (ALT) measurementOrdered By: Zan Pascal on 11-09-2024 ALT [Catalytic activity/Vol] 22 U/L <35 [facility] Serum or plasma albumin jose urement (mass/volume)Ordered By: Zan Pascal on 11-09-2024 Albumin [Mass/Vol] 3.6 g/dL 3.5-5.0 [facility] Serum or plasma albumin/glob ulin mass ratioOrdered By: Zan Pascal 11-09-2024 Albumin/Globulin [Mass ratio] 1.1 {ratio} 0.9-2.4 [facility] Serum or plasma alkaline sherry sphatase measurementOrdered By: Zan Pascal 11-09-2024 ALP [Catalytic activity/Vol] 67 U/L 35-104 [facility] Serum or plasma calcium jose urement (mass/volume)Ordered By: Zan Pascal on 11-09-2024 Calcium [Mass/Vol] 8.7 mg/dL 7.6-11.0 [facility] Serum or plasma urea nitroge n measurement (mass/volume)Ordered By: Zan Pascal on 11-09-2024 Urea nitrogen [Mass/Vol] 10 mg/dL 4-19 [facility] Sodium levelOrdered By: Zan Pascal on 11-09-2024 Sodium [Moles/Vol] 137 mmol/L 133-145 [facility] Squamous epithelial cells de tection in urine sediment by light microscopyOrdered By: Zan Pascal on 11-09-2024 Epithelial cells.squamous LM Ql (Urine sed) 0-5 SEEN /hpf - [facility] Total proteinOrdered By: Norma Pascal on 11-09-2024 Protein [Mass/Vol] 6.8 g/dL 5.9-8.4 [facility] Urinalysis, Completeon 11-09 EPI,SQUAMOUS 0-5 SEEN Normal - [facility] Comment on above: Order Comment: CRITI FANG VALUE CALLED TO SWEETIE SO 11/09/24 1007 Pushpa Renae. RESULTS READ BACK BY SAME. CLEAN CATCH Performed By: #### L 400.0001 #### [facility] [address] [place] [address] BACTERIA 0 SEEN Normal None Seen [facility] Comment on above: Order Comment: CRITI FAGN VALUE CALLED TO SWEETIE SO 11/09/24 1007 Pushpa Renae. RESULTS READ BACK BY SAME. CLEAN CATCH Performed By: #### L 400.0001 #### [facility] [address] [facility] [address] Mucus Ql (Urine sed) 0 SEEN Normal [facility] Comment on above: Order Comment: CRITI FANG VALUE CALLED TO SWEETIE SO 11/09/24 1007 Pushpa Renae. RESULTS READ BACK BY SAME. CLEAN CATCH Performed By: #### L 400.0001 #### [facility] [address] [facility] [address] RBC 0 SEEN Normal 0-5 [facility] Comment on above: Order Comment: CRITI FANG VALUE CALLED TO SWEETIE SO 11/09/24 1007 Pushpa Renae. RESULTS READ BACK BY SAME. CLEAN CATCH Performed By: #### L 400.0001 #### [facility] [address] [facility] [id number] WBC 0 SEEN Normal 0-5 [facility] Comment on above: Order Comment: CRITI FANG VALUE CALLED TO SWEETIE SO 11/09/24 Humera Renae. RESULTS READ BACK BY SAME. CLEAN CATCH Performed By: #### L 400.0001 #### [facility] [address] [place], [address] Urine clarityOrdered By: Norma Pascal on 11-09-2024 Clarity (U) Clear Clear [facility] Urine color determinationOrd ered By: Zan Pascal on 11-09-2024 Color (U) Yellow Yellow [facility] Urine glucose detectionOrder ed By: Zan Pascal on 11-09-2024 Glucose Ql (U) Normal mg/dl Normal [facility] Urine leukocyte esterase det ection by dipstickOrdered By: Zan Pascal on 11-09-2024 Leukocyte esterase Test strip Ql (U) Negative Negative [facility] Urine pHOrdered By: Zan minor on 11-09-2024 pH (U) 6.0 [pH] 5.0 - 8.0 [facility] Urine sediment bacteria coun t by microscopy (number/high power field)Ordered By: Zan Pascal on 11-09-2024 Bacteria LM.HPF (Urine sed) [#/Area] 0 /[HPF] None Seen [facility] Urine specific gravity measu rementOrdered By: Zan Pascal on 11-09-2024 Specific gravity (U) [Rel density] 1.015 1.002-1.030 [facility] Urine urobilinogen measureme ntOrdered By: Zan Pascal on 11-09-2024 Urobilinogen Ql (U) Normal mg/dl Normal [facility] White blood cell (WBC) count Ordered By: Zan Pascal on 11-09-2024 WBC (Bld) [#/Vol] 3.4 10*3/uL Low 4.4-11.0 [facility] White blood cell countOrdere d By: Zan Pascal on 11-09-2024 White blood cell count 0 SEEN /hpf 0-5 [facility] Abdomen/Pelvis W IV Cont ONL Yon 11-07-2024 Abdomen/Pelvis W IV Cont ONLY [facility] Imaging Services [address] [place], [place] [address] Abdomen/Pelvis W IV Cont ONLY MR#: [id number] Acct: [id number] Name: MARY JUNIOR Rep #: [id number] : 1990 F 34 From: Dominick Hurst MD PCP: Dr. Asif Haque MD Status: REG ER Study: Abdomen/Pelvis W IV Cont ONLY Date of Exam: Exam# [id number] Ordering Dr: Nadir Ortiz DO PROCEDURE: ABDOMEN/PELVIS W IV CONT ONLY 11/07/2024 REASON FOR EXAM: ABD PAIN TECHNIQUE: ABDOMEN/PELVIS W IV CONT ONLY Coronal and Sagittal reconstruction series were provided. CONTRAST: Isovue 3 7 VOLUME: 100 mL One or more dose reduction techniques were used (e.g., Automated exposure control, adjustment of the mA and/or kV according to patient size, use of iterative reconstruction technique. RADIATION DOSE SUMMARY: CTDlvol: 22 mGy DLP: 1217 mGycm COMPARISON: 09/20/2022 FINDINGS: Dependent atelectasis. Normal heart size. Small liver cyst. Status post cholecystectomy. Unremarkable pancreas, spleen, adrenal glands, kidneys. No hydronephrosis. Normal bladder. Status post hysterectomy. No retroperitoneal or pelvic adenopathy. No free air. Status post gastric bypass. Nonobstructed bowel. Normal appendix. No acute large bowel findings. No acute abdominal wall findings. CT/Abdomen/Pelvis W IV Cont ONLY IMPRESSION: No acute findings. Reading Location: [place] [address] CC: Dr. Asif Haque MD; Nadir Ortiz DO Bonding Agent: Signed Normal [facility] Absolute lymphocyte countOrd ered By: Nadir Ortzi on 11-07-2024 Lymphocytes Auto (Unsp spec) [#/Vol] 0.73 10*3/uL Low 0.83-4.51 [facility] Absolute neutrophil countOrd ered By: Nadir Ortiz on 11-07-2024 Neutrophils (Bld) [#/Vol] 6.9 10*3/uL 2.0-7.7 [facility] Anion gap in Serum or Plasma Ordered By: Nadir Ortiz on 11-07-2024 Anion gap [Moles/Vol] 12 mmol/L 5-15 [facility] Automated lymphocyte count a s percentage of total leukocytesOrdered By: Nadir Ortiz on 11-07-2024 Lymphocytes/100 WBC Auto (Unsp spec) 8.9 % Low 19-41 [facility] BUN/creatinine ratioOrdered By: Nadir Ortiz on 11-07-2024 Urea nitrogen/Creatinine [Mass ratio] 14.4 mg/mg - [facility] Basic Metabolic Profile (BMP )on 11-07-2024 BUN/CRE 14.4 RATIO Normal 02-25 [facility] Comment on above: Performed By: #### L 500.2500, L100.0100, L501.2450, L500.3400, L501.5200 ####[facility] [address] [place], [address] Calcium [Mass/Vol] 8.9 mg/dL Normal 7.6-11.0 [facility] Comment on above: Performed By: #### L 500.2500, L100.0100, L501.2450, L500.3400, L501.5200 ####[facility] [address] [place], [address] Chloride [Moles/Vol] 103 mmol/L Normal 98-108 [facility] Comment on above: Performed By: #### L 500.2500, L100.0100, L501.2450, L500.3400, L501.5200 ####[facility] [address] [place], [address] CO2 [Moles/Vol] 22.8 mmol/L Normal 21.0-32.0 [facility] Comment on above: Performed By: #### L 500.2500, L100.0100, L501.2450, L500.3400, L501.5200 ####[facility] [address] [place], [address] Creatinine [Mass/Vol] 0.99 mg/dL Normal 0.70-1.20 [facility] Comment on above: Performed By: #### L 500.2500, L100.0100, L501.2450, L500.3400, L501.5200 ####[facility] [address] [place], [address] ECRCL 102.42 ml/min Normal 50-250 [facility] Comment on above: Performed By: #### L 500.2500, L100.0100, L501.2450, L500.3400, L501.5200 ####[facility] [address] [place], [address] GAP 12 Normal 5-15 [facility] Comment on above: Performed By: #### L 500.2500, L100.0100, L501.2450, L500.3400, L501.5200 ####[facility] [address] [place], [address] GFR/1.73 sq M.predicted among non-blacks MDRD (S/P/Bld) [Vol rate/Area] 77 mL/min/{1.73_m2} Normal >60 [facility] Comment on above: Result Comment: mL/m in/1.73m2 CKD-EPI Creatinine Equation (2020) Performed By: #### L 500.2500, L100.0100, L501.2450, L500.3400, L501.5200 ####[facility] [address] [place], [address] Glucose [Mass/Vol] 100 mg/dL High 70-99 [facility] Comment on above: Performed By: #### L 500.2500, L100.0100, L501.2450, L500.3400, L501.5200 ####[facility] [address] [place], [address] Potassium [Moles/Vol] 3.8 mmol/L Normal 3.3-5.1 [facility] Comment on above: Performed By: #### L 500.2500, L100.0100, L501.2450, L500.3400, L501.5200 ####[facility] [address] [place], [address] Sodium [Moles/Vol] 138 mmol/L Normal 133-145 [facility] Comment on above: Performed By: #### L 500.2500, L100.0100, L501.2450, L500.3400, L501.5200 ####[facility] [address] [place], [address] Urea nitrogen [Mass/Vol] 14 mg/dL Normal 4-19 [facility] Comment on above: Performed By: #### L 500.2500, L100.0100, L501.2450, L500.3400, L501.5200 ####[facility] [address] [place], [address] Basophil percentageOrdered B y: Nadir Ortiz on 11-07-2024 Basophils/100 WBC (Bld) 0.1 % 0-1 [facility] Bilirubin directOrdered By: Nadir Ortiz on 11-07-2024 Bilirubin.direct [Mass/Vol] 0.30 mg/dL 0.00-0.30 [facility] Bilirubin, totalOrdered By: Nadir Ortiz on 11-07-2024 Bilirubin [Mass/Vol] 0.73 mg/dL 0.00-1.30 [facility] CBC W/Diff, Automatedon Absolute Lymph 0.73 X10 3/uL Low 0.83-4.51 [facility] Comment on above: Performed By: #### L 500.2500, L100.0100, L501.2450, L500.3400, L501.5200 ####[facility] [address] [place], [address] Absolute Neut 6.9 X10 3/uL Normal 2.0-7.7 [facility] Comment on above: Performed By: #### L 500.2500, L100.0100, L501.2450, L500.3400, L501.5200 ####[facility] [address] [place], [address] Basophils/100 WBC (Bld) 0.1 % Normal 0-1 [facility] Comment on above: Performed By: #### L 500.2500, L100.0100, L501.2450, L500.3400, L501.5200 ####[facility] [address] [place], [address] Eosinophils/100 WBC (Bld) 0.9 % Normal 0-5 [facility] Comment on above: Performed By: #### L 500.2500, L100.0100, L501.2450, L500.3400, L501.5200 ####[facility] [address] [place], [address] Erythrocyte distribution width (RBC) [Ratio] 13.5 % Normal 11.6-14.6 [facility] Comment on above: Performed By: #### L 500.2500, L100.0100, L501.2450, L500.3400, L501.5200 ####[facility] [address] [place], [address] Hematocrit (Bld) [Volume fraction] 41.0 % Normal 37-47 [facility] Comment on above: Performed By: #### L 500.2500, L100.0100, L501.2450, L500.3400, L501.5200 ####[facility] [address] [place], [address] Hemoglobin (Bld) [Mass/Vol] 13.7 g/dL Normal 12.0-15.0 [facility] Comment on above: Performed By: #### L 500.2500, L100.0100, L501.2450, L500.3400, L501.5200 ####[facility] [address] [place], [address] IG% 0.400 Normal 0.0-0.9 [facility] Comment on above: Result Comment: IG% - Immature Granulocytes (promyelocytes, myelocytes and metamyelocytes) > 1% indicates that a LEFT SHIFT is Present. Performed By: #### L 500.2500, L100.0100, L501.2450, L500.3400, L501.5200 ####[facility] [address] [place], [address] Lymphocytes/100 WBC (Bld) 8.9 % Low 19-41 [facility] Comment on above: Performed By: #### L 500.2500, L100.0100, L501.2450, L500.3400, L501.5200 ####[facility] [address] [place], [address] MCH (RBC) [Entitic mass] 29.3 pg Normal 27.0-32.0 [facility] Comment on above: Performed By: #### L 500.2500, L100.0100, L501.2450, L500.3400, L501.5200 ####[facility] [address] [place], [address] MCHC (RBC) [Mass/Vol] 33.4 g/dL Normal 32-36 [facility] Comment on above: Performed By: #### L 500.2500, L100.0100, L501.2450, L500.3400, L501.5200 ####[facility] [address] [place], [address] MCV (RBC) [Entitic vol] 87.8 fL Normal 81-99 [facility] Comment on above: Performed By: #### L 500.2500, L100.0100, L501.2450, L500.3400, L501.5200 ####[facility] [address] [place], [address] Monocytes/100 WBC (Bld) 4.9 % Normal 0-10 [facility] Comment on above: Performed By: #### L 500.2500, L100.0100, L501.2450, L500.3400, L501.5200 ####[facility] [address] [place], [address] Neutrophils/100 WBC (Bld) 84.8 % High 47-70 [facility] Comment on above: Performed By: #### L 500.2500, L100.0100, L501.2450, L500.3400, L501.5200 ####[facility] [address] [place], [address] Nucleated RBC (Bld) [#/Vol] 0 10*3/uL Normal 0-5 [facility] Comment on above: Performed By: #### L 500.2500, L100.0100, L501.2450, L500.3400, L501.5200 ####[facility] [address] [place], [address] Platelet mean volume (Bld) [Entitic vol] 9.7 fL Normal 6.2-12.0 [facility] Comment on above: Performed By: #### L 500.2500, L100.0100, L501.2450, L500.3400, L501.5200 ####[facility] [address] [place], [address] Platelets (Bld) [#/Vol] 239 10*3/uL Normal 150-450 [facility] Comment on above: Performed By: #### L 500.2500, L100.0100, L501.2450, L500.3400, L501.5200 ####[facility] [address] [place], [address] RBC (Bld) [#/Vol] 4.67 10*6/uL Normal 4.2-5.4 [facility] Comment on above: Performed By: #### L 500.2500, L100.0100, L501.2450, L500.3400, L501.5200 ####[facility] [address] [place], [address] RDW SD 43.2 fl Normal 35.1-43.9 [facility] Comment on above: Performed By: #### L 500.2500, L100.0100, L501.2450, L500.3400, L501.5200 ####[facility] [address] [place], [address] WBC (Bld) [#/Vol] 8.2 10*3/uL Normal 4.4-11.0 [facility] Comment on above: Performed By: #### L 500.2500, L100.0100, L501.2450, L500.3400, L501.5200 ####[facility] [address] [place], [address] Carbon dioxide, total [Moles /volume] in Central venous bloodOrdered By: Nadir Ortiz on 11-07-2024 CO2 [Moles/Vol] 22.8 mmol/L 21.0-32.0 [facility] Chloride assayOrdered By: Nery Ortiz on 11-07-2024 Chloride [Moles/Vol] 103 mmol/L 98-108 [facility] Emergency Department Summary on 11-07-2024 Emergency Department Summary [facility] Medical Records Department [address] [place] [address] Emergency Department Summary 11/07/24 MR#: [id number] Acct: [id number] Name: INDRAMARY RICARDO Rep #: [id number] : 1990 34 From: Nadir Oritz DO PCP: Dr. Asif Haque MD Status:DEP ER Location: ED HPI History of Present Illness Chief Complaint: Nausea/Vomiting/Diarr hea Informant: patient and spouse/S.O. Narrative Narrative: Patient is a 34-year-old female who reports 2 days of subjective fevers and chills with generalized abdominal discomfort and bouts of nausea vomiting and diarrhea. She denies any known sick contact. She denies any recent antibiotic use or travel outside the country. She states that she cannot keep food or fluid down. She denies any blood or dark discoloration to her stool or emesis. She states that she is concern for dehydration and underlying infection based on her symptoms and therefore comes in for evaluation [facility] Medical History Acute bronchitis, unspecified Collin's thyroiditis Wears glasses Depression Anxiety Low iron Easy bruising Migraine headache Heartburn Former smoker Leg cramps History of irregular heartbeat Abnormal uterine bleeding (AUB) Shoulder pain SOB (shortness of breath) History of pre-eclampsia Home Medications ???Medication ???Instructions ???Recorded ???Last Taken ???Type glucagon 3 mg/actuation nasal mg intranasal 09/21/24 Unknown His tory spray (Baqsimi) acarbose 25 mg tablet 50 mg PO TID 11/07/24 Unknown Hist ory Held on 11/07/24. Instructions: not been taking dicyclomine 20 mg tablet 20 mg PO 4X/DAY PRN Abdominal 07/03 Unknown Rx bloating/spasm #28 tabs ondansetron 4 mg disintegrating 4 mg PO TID PRN nausea and 5 Unknown Rx tablet vomiting #21 tabs Allergy/AdvReac Type Severity Reaction Status Date / Time metoprolol Allergy Severe Hives Verified 11/07/24 03:07 oxycodone HCl (From Percocet) Allergy Severe Hives Verified 11/07/24 03:07 hydrocodone bitartrate (From Allergy Intermediate Hives Verified 11/07/24 03:07 Vicodin) latex Allergy Mild Rash Verified 11/07/24 03:07 dicloxacillin Allergy Hives Verified 11/07/24 03:07 Family History Grandmother Cancer Anxiety Osteoporosis Thyroid disorder Father Bleeding disorder Liver disease Mother Anesthesia complication Diabetes Hypertension Surgical History Status post bariatric surgery S/P hernia surgery H/O gastric bypass Hx of cholecystectomy History of total vaginal hysterectomy (TVH) S/P vaginal hysterectomy ( 02/24/21) Status post bilateral salpingectomy ( 09/25/19) History of foot surgery History of tonsillectomy Hx LEEP (loop electrosurgical excision procedure), cervix, Social History Smoking Status: Former smoker second hand exposure: No alcohol intake: never substance use type: does not use caffeine: No what type of physical activity do you participate in: none and other details: 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 seatbelt use: always do you feel safe at home: Yes additional social history: Kash SWIFT ED Constitutional Constitutional ED: Reports chills, fever(s) and other Details: Positive fatigue Eyes Eyes: Denies change in vision ENT ENT ED: Denies sore throat Cardiovascular Cardiovascular: Reports racing heartbeat; Denies chest pain Respiratory/Chest Respiratory/Chest: Denies cough or dyspnea Gastrointestinal Gastrointestinal: Reports abdominal pain, diarrhea, nausea and vomiting; Denies melena Genitourinary Genitourinary ED: Denies dysuria or hematuria Musculoskeletal Musculoskeletal: Reports myalgias Integumentary Denies rash Neurologic Neurologic: Denies headache(s) Hematologic/Lymphatic Hematologic/Lymphatic : Denies easy bleeding or easy bruising EXAM Physical Exam Const Vital Signs: 11/07/24 03:07 11/07/24 05:07 11/07/24 05:29 Temperature 100.8 F H 98.9 F Temperature Source Temporal Pulse Rate 106 H 101 H 90 Respiratory Rate 18 18 18 Blood Pressure 127/84 H 129/87 H 125/77 H Blood Pressure Mean 98 101 93 Pulse Ox 100 95 95 Oxygen Delivery Method Room Air Room Air Positive well nourished and well developed General Appearance ED: well developed; Negative for pallor HEENT Reports dry mucous membranes HEENT Narrative: No tongue or lip swelling no oral lesions no airway edema or compromise No secondary findings in the posterior pharynx to suggest infection Mucous membranes are dry and tacky Mouth ED: Yes dry mucous membranes Mouth: dry mucous membranes Eyes PERRL and EOMs in (more content not included)... Normal [facility] Eosinophil percentageOrdered By: Nadir Ortiz on 11-07-2024 Eosinophils/100 WBC (Bld) 0.9 % 0-5 [facility] Erythrocyte distribution wid th ratioOrdered By: Nadir Ortiz on 11-07-2024 Erythrocyte distribution width (RBC) [Ratio] 13.5 % 11.6-14.6 [facility] Erythrocyte distribution wid th standard deviationOrdered By: Nadir Ortiz on 11-07-2024 Erythrocyte distribution width (RBC) [Ratio] 43.2 fl 35.1-43.9 [facility] Glomerular filtration rate ( GFR) estimation/1.73 sq m using serum, plasma, or whole bOrdered By: Nadir Ortiz on 11-07-2024 GFR/1.73 sq M.predicted among non-blacks MDRD (S/P/Bld) [Vol rate/Area] 77 mL/min/{1.73_m2} >60 [facility] Comment on above: mL/min/1.73m2 CKD-EP I Creatinine Equation (2020) Hematocrit Auto (Bld) [Volum e fraction]Ordered By: Nadir Ortiz on 11-07-2024 Hematocrit (Bld) [Volume fraction] 41.0 % 37-47 [facility] Hemoglobin measurementOrdere d By: Nadir Ortiz on 11-07-2024 Hemoglobin (Bld) [Mass/Vol] 13.7 g/dL 12.0-15.0 [facility] Immature granulocytes/100 WB C Auto (Bld)Ordered By: Nadir Ortiz on 11-07-2024 Immature granulocytes/100 WBC (Bld) 0.400 % 0.0-0.9 [facility] Comment on above: IG% - Immature Granu locytes (promyelocytes, myelocytes and metamyelocytes) > 1% indicates that a LEFT SHIFT is Present. Laboratory - Chemistry and C hemistry - challengeOrdered By: Nadir Ortiz on 11-07-2024 AST [Catalytic activity/Vol] 21 U/L <32 [facility] Lipaseon 11-07-2024 Lipase [Catalytic activity/Vol] 35 U/L Normal 13-75 [facility] Comment on above: Result Comment: Plea se note: LIPASE revised reference range effective 22. New Lipase methodology. Expected to produce lower values than the previous assay method. NEW Reference Range: 13 - 75 U/L Performed By: #### L 500.2500, L100.0100, L501.2450, L500.3400, L501.5200 ####[facility] [address] [place], [address] Lipase measurementOrdered By : Nadir Ortiz on 11-07-2024 Lipase [Catalytic activity/Vol] 35 U/L 13-75 [facility] Comment on above: Please note:LIPASE r evised reference range effective 22. New Lipase methodology. Expected to produce lower values than the previous assay method. NEW Reference Range: 13 - 75 U/L Liver Profileon 11-07-2024 Albumin [Mass/Vol] 3.9 g/dL Normal 3.5-5.0 [facility] Comment on above: Performed By: #### L 500.2500, L100.0100, L501.2450, L500.3400, L501.5200 ####[facility] [address] [place], [address] ALK PHOS 80 U/L Normal 35-104 [facility] Comment on above: Performed By: #### L 500.2500, L100.0100, L501.2450, L500.3400, L501.5200 ####[facility] [address] [place], [address] ALT [Catalytic activity/Vol] 21 U/L Normal <=34 [facility] Comment on above: Performed By: #### L 500.2500, L100.0100, L501.2450, L500.3400, L501.5200 ####[facility] [address] [place], [address] AST [Catalytic activity/Vol] 21 U/L Normal <=31 [facility] Comment on above: Performed By: #### L 500.2500, L100.0100, L501.2450, L500.3400, L501.5200 ####[facility] [address] [place], [address] Bilirubin [Mass/Vol] 0.73 mg/dL Normal 0.00-1.30 [facility] Comment on above: Performed By: #### L 500.2500, L100.0100, L501.2450, L500.3400, L501.5200 ####[facility] [address] [place], [address] Bilirubin.direct [Mass/Vol] 0.30 mg/dL Normal 0.00-0.30 [facility] Comment on above: Performed By: #### L 500.2500, L100.0100, L501.2450, L500.3400, L501.5200 ####[facility] [address] [place], [address] Globulin (S) [Mass/Vol] 3.0 g/dL Normal 2.2-4.2 [facility] Comment on above: Performed By: #### L 500.2500, L100.0100, L501.2450, L500.3400, L501.5200 ####[facility] [address] [place], [address] T PROT 6.9 g/dL Normal 5.9-8.4 [facility] Comment on above: Performed By: #### L 500.2500, L100.0100, L501.2450, L500.3400, L501.5200 ####[facility] [address] [place], [address] MCV (mean corpuscular volume ) determinationOrdered By: Nadir Ortiz on 11-07-2024 MCV (RBC) [Entitic vol] 87.8 fL 81-99 [facility] Magnesiumon 11-07-2024 Magnesium [Mass/Vol] 1.7 mg/dL Normal 1.5-2.2 [facility] Comment on above: Performed By: #### L 500.2500, L100.0100, L501.2450, L500.3400, L501.5200 ####[facility] [address] [place], [address] Magnesium measurement (mass/ volume)Ordered By: Nadir Ortiz on 11-07-2024 Magnesium (Unsp spec) [Mass/Vol] 1.7 mg/dL 1.5-2.2 [facility] Mean corpuscular hemoglobin (MCH) determinationOrdered By: Nadir Ortiz on 11-07-2024 MCH (RBC) [Entitic mass] 29.3 pg 27.0-32.0 [facility] Mean corpuscular hemoglobin concentration (MCHC) determinationOrdered By: Nadir Ortiz on 11-07-2024 MCHC (RBC) [Mass/Vol] 33.4 g/dL 32-36 [facility] Mean platelet volume determi nationOrdered By: Nadir Ortiz on 11-07-2024 Platelet mean volume (Bld) [Entitic vol] 9.7 fL 6.2-12.0 [facility] Monocyte percentageOrdered B y: Nadir Ortiz on 11-07-2024 Monocytes/100 WBC (Bld) 4.9 % 0-10 [facility] Neutrophil percentageOrdered By: Nadir Ortiz on 11-07-2024 Neutrophils/100 WBC (Bld) 84.8 % High 47-70 [facility] Nucleated red blood cell per centageOrdered By: Nadir Ortiz on 11-07-2024 Nucleated RBC/100 WBC (Bld) [Ratio] 0 % 0-5 [facility] Platelet countOrdered By: Nery Ortiz on 11-07-2024 Platelets (Bld) [#/Vol] 239 10*3/uL 150-450 [facility] Potassium measurement (mass/ volume)Ordered By: Nadir Ortiz on 11-07-2024 Potassium (Unsp spec) [Mass/Vol] 3.8 mmol/L 3.3-5.1 [facility] RBC Auto (Bld) [#/Vol]Ordere d By: Nadir Ortiz on 11-07-2024 RBC (Bld) [#/Vol] 4.67 10*6/uL 4.2-5.4 [facility] Serum creatinine measurement (mass/volume)Ordered By: Nadir Ortiz on 11-07-2024 Creatinine [Mass/Vol] 0.99 mg/dL 0.70-1.20 [facility] Serum globulin measurementOr dered By: Nadir Ortiz on 11-07-2024 Globulin (S) [Mass/Vol] 3.0 g/dL 2.2-4.2 [facility] Serum glucose measurement (m ass/volume)Ordered By: Nadir Ortiz on 11-07-2024 Glucose [Mass/Vol] 100 mg/dL High 70-99 [facility] Serum or plasma alanine madden otransferase (ALT) measurementOrdered By: Nadir Ortiz on 11-07-2024 ALT [Catalytic activity/Vol] 21 U/L <35 [facility] Serum or plasma albumin jose urement (mass/volume)Ordered By: Nadir Ortiz on 11-07-2024 Albumin [Mass/Vol] 3.9 g/dL 3.5-5.0 [facility] Serum or plasma alkaline sherry sphatase measurementOrdered By: Nadir Ortiz on 11-07-2024 ALP [Catalytic activity/Vol] 80 U/L 35-104 [facility] Serum or plasma calcium jose urement (mass/volume)Ordered By: Nadir Ortiz on 11-07-2024 Calcium [Mass/Vol] 8.9 mg/dL 7.6-11.0 [facility] Serum or plasma urea nitroge n measurement (mass/volume)Ordered By: Nadir Ortiz on 11-07-2024 Urea nitrogen [Mass/Vol] 14 mg/dL 4-19 [facility] Sodium levelOrdered By: Jose Ortiz on 11-07-2024 Sodium [Moles/Vol] 138 mmol/L 133-145 [facility] Total proteinOrdered By: Je Ortiz on 11-07-2024 Protein [Mass/Vol] 6.9 g/dL 5.9-8.4 [facility] White blood cell (WBC) count Ordered By: Nadir Ortiz on 11-07-2024 WBC (Bld) [#/Vol] 8.2 10*3/uL 4.4-11.0 [facility] Urgent Care Visit Reporton 0 09-21-2024 Urgent Care Visit Report [facility] [address], [address] [place] [address] OFFICE VISIT Date of Service: 09/21/24 MR#: [id number] Acct: [id number] Name: MARY JUNIOR Rep #: [id number] : 1990 Provider: STEVAN Siu Age/Sex: 34/F Location: [facility] Status: Signed Intake Vital Signs 05/21/24 09:32 [...] she could be going through a thyroiditis. [facility] Medical History Acute bronchitis, unspecified Collin's thyroiditis [...] at home: Yes additional social history: Kash [facility] HPI Details: MARY JUNIOR, is a 34 F who presents to the office today for complaint of rash on the left flank. Patient noticed it starting yesterday. She does state that she has been under quite bit of stress as well as her blood sugar being "all over the place". Patient does state that she had some [...] of p (more content not included)... Normal [facility] CNOVon 08-09-2024 CNOV Office Visit (ENDCMN ) MARY JUNIOR ([id number]) 1990 F Date Time Provider Department 08/09/24 10:00 AM MANUELA ISBELL ENDN During your visit today, we recorded the following information about you: Pulse Blood pressure Weight 79/minute 127/79 101.6 kg Manuela Isbell MD 08/09/2024 10:44 AM Addendum Thank you for choosing the [facility] Department of Endocrinology, Diabetes and Metabolism. Did you know that you need to call 48 hours in advance of your scheduled visit, if you are unable to make your appointment? [facility] thanks you for your commitment, because patients not showing to their appointment results in a lost opportunity for patients to receive [facility] health care at the [facility]. To Cancel an appointment, please choose one of the following: - Call the Appointment Call Center at [phone] - From [place], Go to Appointments - Cancel Appts If cancelling, consider your need to reschedule to prevent further delays in your care. To Schedule an appointment, please choose one of the following: - Call the Appointment Call Center at [phone] - From [place], Go to Appointments - Request an Appt [...] Index Carbohydrates (AVOID) Refined breakfast cereals (e.g., [employer] Flakes, Rice Krispies, Cream of Rice, instant oatmeal) Regular pasta Most starchy vegetables (e.g., white potatoes, corn, winter (orange) squash) White rice, rice cakes Popcorn, pretzels, chips Some fruits (e.g., ripe bananas, pineapple, yael, watermelon, grapes) All fruit juices and sweetened drinks (e.g., sodas, sweetened iced tea) Bread, rolls, bagels, Setswana muffins, and crackers made with refined flour [...] lb) 413 lbs Lowest weight 192 lbs [place] weight: 72.4 kg (159 lb 11 oz) Excess weight: 84.1 kg (185 lb 5 oz) % of excess body weight lost: 156.5 kg (345 lb) (186.17% of excess weight loss) Interval history: Fasting labs (after 15 hrs of fasting) with no hypoglycemia. Started on Dexcom at last visit. Continues to have daily low blood sugar. Review (more content not included)... Normal [facility] HEMOGLOBIN A1C (POC)on 08-09 HbA1c (Bld) [Mass fraction] 5.1 % 4.3 - 5.6 % [facility] Comment on above: Location:Arabella mendezjosie, [address] [place] [address], [facility] Point of care (POC) Hemoglobin A1c [...] specific diabetes management situations: The POC device content architect provides a normal range of 4.2% to 6.5% for the HGBA1C POC test. However, the [place] Diabetes [employer] guidelines indicate that patients with [...] anemia) that alter red blood cell lifespan. [facility] B-HYDROXYBUTYRATEon 07-14-19 25 Beta hydroxybutyrate [Moles/Vol] 0.35 mmol/L High <0.28 [facility] Comment on above: Order Comment: Speci men Type: BLOOD SPECIMENOrdering Facility: [facility] Address: [address] [place] [address] Performed By: #### B HB ####[facility] LABORATORYCLIA [id number] [place] [address] [place] C peptide SerPl-mCncon 07-13 C peptide [Mass/Vol] 2.7 ng/mL Normal 1.1-4.4 [facility] Comment on above: Order Comment: Angeladomonique sams Type: BLOOD SPECIMENOrdering Facility: [facility] Address: [address] [place] [address] Performed By: #### 1 986-9, ####[facility] LABCLIA [id number] [address] [place] Glucose p fast SerPl-mCncon 07-13-2024 Glucose post fast [Mass/Vol] 81 mg/dL Normal 74-99 [facility] Comment on above: Order Comment: Telly flaquita Type: BLOOD SPECIMENOrdering Facility: [facility] Address: [address] [place] [address] Result Comment: Desiree ican Diabetes Association guidelines state that a diabetes mellitus diagnosis is preliminarily made when the fasting plasma glucose meets or exceeds 126 mg/dL. In the absence of unequivocal hyperglycemia, results should be confirmed with repeat testing. Patients are at increased risk for diabetes mellitus (prediabetes) when the fasting glucose is 100 to 125 mg/dL. Performed By: #### 1 558-6 ####[facility] LABORATORYCLIA [id number] [place] [id number] [place] OF [facility] Insulin SerPl-aCncon 025 Insulin Qn 6.6 uU/mL Normal 2.6-24.9 [facility] Comment on above: Order Comment: Angeladomonique sams Type: BLOOD SPECIMENOrdering Facility: [facility] Address: [address] [place] [address] Performed By: #### 1 986-9, ####[facility] LABIA [id number] [place] [id number] [facility] OF [place] CNPNancy 07-09-2024 CNPN Telephone (ENDOMN) MARY JUNIOR ([id number]) 1990 F Date Time Provider Department 07/09/24 MANUELA ISBELL During your visit today, we recorded the [...] of 07/09/2024 - Blood-Glucose Meter,Continuous (DEXCOM G7 COUNSELOR AID) misc 1 Each as directed. - Blood-Glucose Sensor (DEXCOM G7 SENSOR) allison 1 Each every 10 days. - glucagon 3 mg/actuation nasal spray (BAQSIMI) Use 1 Allgood in the nose as needed for low [...] Status:Closed by KIMBERLEY LEDESMA on 07/09/24 Normal [facility] B-HYDROXYBUTYRATEon 07-06-19 25 Beta hydroxybutyrate [Moles/Vol] 0.44 mmol/L High <0.28 [facility] Comment on above: Order Comment: Speci men Type: BLOOD SPECIMENOrdering Facility: [facility] Address: [address] [place] [address] [place] [address] Performed By: #### B HB ####[facility]ORATORYCLIA [id number] [place] [address] [place] C peptide SerPl-mCncon 07-06 C peptide [Mass/Vol] 2.0 ng/mL Normal 1.1-4.4 [facility] Comment on above: Order Comment: Speci men Type: BLOOD SPECIMENOrdering Facility: [facility] Address: [address] [place] [address] Performed By: #### 1 986-9, 69655-9 ####[facility] LABIA [id number] [place] [id number] [place] Insulin SerPl-aCncon 025 Insulin Qn 6.1 uU/mL Normal 2.6-24.9 [facility] Comment on above: Order Comment: Speci men Type: BLOOD SPECIMENOrdering Facility: [facility] Address: [address] [place] [address] Performed By: #### 1 986-9, 97692-9 ####[facility] LABIA [id number] [place] [id number] [place] Thyroidon 05-30-2024 Thyroid [facility] Imaging Services [address] [place], [place] [id number] Thyroid MR#: [id number] Acct: [id number] Name: MARY JUNIOR RICARDO Rep #: [id number] : 1990 F 34 From: Irving rosen MD PCP: Dr. Asif Haque MD Status: [facility] Study: Thyroid Date of Exam: 05/30/24 Exam# [id number] Ordering Dr: Felice Centeno MD [id number] STUDY: THYROID ULTRASOUND REASON FOR EXAM: Female, [...] Signed: Irving Milton MD at 22:11 EST Reading Location ID and State: [address] [place] [address] , Service support , CC: Dr. Felice Centeno MD; Dr. Asif Haque MD Bonding Agent: Signed Normal [facility] Calcium,Totalon 05-21-2024 CA,Total 9.5 mg/dL Normal 8.5-10.1 [facility] Comment on above: Performed By: #### L 509.1000, L501.2200 #### [facility] Laboratory [facility] [place], [address] Estradiolon 05-21-2024 ESTRADIOL 69.3 pg/mL Normal [facility] Comment on above: Result Comment: NORM AL [...] DETERMINE ESTRADIOL CONCENTRATION. Performed By: #### L 3300.1750, L3100.5125 ####[facility] [address] [place], [address] Follicle Stimulating Hormone on 05-21-2024 FSH 5.4 mIU/mL Normal [facility] Comment on above: Result Comment: NORMAL REFERENCE RANGES FEMALE FOLLICULAR 2.3 - 12.6 mIU/mL MID-CYCLE PEAK 5.2 - 17.5 mIU/mL LUTEAL 1.7 - 12.9 mIU/mL POST-MENOPAUSAL ON MHT 5.9 - 72.8 mIU/mL NOT ON MHT 12.7 - 132.2 mlU/mL MALE 0.7 - 10.8 mIU/mL Performed By: #### L 3300.1750, L3100.5125 ####[facility] [address] [place], [place], [address] Provider Contracting Consultant Office Visit Reporton 05-21-2024 Provider Contracting Consultant Office Visit Report [facility] [address], [address] [place] [address] OFFICE VISIT Date of Service: 05/21/24 MR#: [id number] Acct: [id number] Name: MARY JUNIOR RICARDO Rep #: [id number] : 1990 Provider: Dr. Julissa enamorado MD Age/Sex: 34/F Location: [facility] Status: Signed Intake Vital Signs 05/13/23 11:40 03/08/24 15:13 05/21/24 09:32 Height 5 ft 7 in 5 ft 7 in 5 ft 7 in Weight: 219 lb 2 oz BMI 34.3 BP 124/85 H Intake Visit Reasons: Annual ([employer]) Social 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 Required: No Is patient in pain?: No [...] lb 03/05/17 Doreen 39 8 lbs Female [facility] 08/01/18 Stu 39 live - full term Female spinal [facility] 07/19/19 [place] 39 live - full term Male epidural [facility] M Delivery Date: 08/01/18 Last Updated by: Vandana Diaz polyhydramnios Delivery Date: 07/19/19 Last Updated by: Ping Blanco HPI Encounter for routine gynecological examination Details: MARY JUNIOR is a 34 year old who presents [...] urinary incontin (more content not included)... Normal [facility] PTHINon 05-21-2024 PTH 84.1 pg/mL High 18.4-80.1 [facility] Comment on above: Performed By: #### L 509.1000, L501.2200 #### [facility] Laboratory [address] [place], [address] Urgent Care Visit Reporton 1 06-17-2023 Urgent Care Visit Report [facility] [address], [address] [place] [address] OFFICE VISIT Date of Service: 04/16/24 MR#: [id number] Acct: [id number] Name: MARY JUNIOR RICARDO Rep #: [id number] : 1990 Provider: STEVAN Gallegos Age/Sex: 33/F Location: [facility] Status: Signed Intake Vital Signs 03/08/24 15:13 [...] Chief Complaint: left ear pain, sinus congestion Social 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 Required: No Is patient in pain?: No [...] patient states is off balance since yesterday. [facility] Medical History Acute bronchitis, unspecified Collin's thyroiditis [...] safe at home: Yes additional social history: [facility] HPI Chief Complaint: left ear pain, sinus congestion Details: MARY JUNIOR, is a 33 F who presents to [...] present GI (more content not included)... Normal [facility] Breast Limited Unilateralon 03-14-2024 Breast Limited Unilateral [facility] Imaging Services [address] [place] [address] Breast Limited Unilateral MR#: [id number] Acct: [id number] Name: MARY JUNIOR RICARDO Rep #: [id number] : 1990 F 33 From: Walker dove MD PCP: Dr. Asif Haque MD Status: [facility] CLI Study: Breast Limited Unilateral Date of Exam: Exam# [id number] Ordering Dr: Julisas Connell [id number] STUDY: ULTRASOUND BREAST - RIGHT REASON FOR [...] Signed: Walker Chatterjee MD at 12:42 EST , CC: Dr. Julissa Connell MD; Dr. Asif Haque MD Bonding Agent: Signed Normal [facility] DIAG MAMM W/CAD, BILATon DIAG MAMM W/CAD, BILAT [facility] Imaging Services [address] [place], [place] [address] DIAG MAMM W/CAD, BILAT MR#: [id number] Acct: [id number] Name: MARY JUNIOR Rep #: [id number] : 1990 F 33 From: Walker dove MD PCP: Dr. Asif Haque MD Status: REG CLI Study: DIAG MAMM W/CAD, BILAT Date of Exam: 03/14/24 Exam# [id number] Ordering Dr: Julissa Connell [id number] MAMMOGRAPHY - BILATERAL DIAGNOSTIC REASON FOR EXAM: [...] 11:31 EST Reading Location ID and State: [facility] / [place] , Service support , CC: Dr. Julissa Connell MD; Dr. Asif Haque MD Bonding Agent: Signed Normal [facility] Provider Contracting Consultant Office Visit Reporton 03-08-2024 Provider Contracting Consultant Office Visit Report [facility] [address], [address] [place] [address] OFFICE VISIT Date of Service: 03/08/24 MR#: [id number] Acct: [id number] Name: MARY JUNIOR RICARDO Rep #: [id number] : 1990 Provider: Dr. Julissa enamorado MD Age/Sex: 33/F Location: [facility] Status: Signed Intake Vital Signs 05/13/23 11:40 03/08/24 15:13 Height 5 ft 7 in 5 ft 7 in Weight: 209 lb BMI 32.7 BP 134/83 H Intake Visit Reasons: breast lump Social 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 Required: No Is patient in pain?: Yes [...] safe at home: Yes additional social history: [facility] breast lump Details: MARY JUNIOR is a 33 year old who presents for right nipple pain and swollen right size noticed in the last day. she has been sick [facility] last month with multiple infections. she has been having hot flashes and palpitations. she doesn't drink much caffeine. no family hiostry of breast cancer. History 7 Elective abortions Hx Para 4 Spontaneous abortions Hx # Term Pregnancies Ectopic pregnancies Hx # Pregnancies Multiple births # of living children 5 Past Pregnancies Del. Date Name GA/Weeks Outcome Route Bth Weight Gen Labor Lgth Anesthesia Del Locatn Provider FOB Unknown Angus 2008 40 8pounds 3 ounce epidural Unknown Ai 2010 39 live - full term 7 lb 03/05/17 Doreen 39 8 lbs Female [facility] 08/01/18 Stu 39 live - full term Female spinal [facility] 07/19/19 [place] 39 live - full term Male epidural [facility] M Delivery Date: 08/01/18 Last [...] Nutritional Appearance: average body habitus Orientation: alert HENMT Head: normal to inspection and nor (more content not included)... Normal [facility] Urgent Care Visit Reporton 1 Urgent Care Visit Report [facility] [address] [place] [address] OFFICE VISIT Date of Service: 02/21/24 MR#: [id number] Acct: [id number] Name: MARY JUNIOR Rep #: [id number] : 1990 Provider: STEVAN Gallegos Age/Sex: 33/F Location: [facility] Status: Signed Intake Vital Signs 05/13/23 11:40 02/21/24 07:53 Height 5 ft 7 in BP 130/74 H Blood Pressure Location Lt brachial Position Sitting Respiration 15 Pulse 76 Pulse Source NIBP Temp 98.1 F Temp Source Oral Pulse Oximetry (%) 98 Oxygen Delivery Method room air Intake Visit Reasons: Upper respiratory infection Chief Complaint: chest congest, cough, grn mucus 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 Non-smoker. No tsyl-sni-mbbkjru products taken to assist. No other associated symptoms and no other alleviating/aggravati ng factors. ROS Const Constitutional: No other (as above) Exam Const General: cooperative, healthy appearing and no acute distress Orientation: alert and awake [facility] Head: normal to inspection Ears: hearing grossly [...] no r (more content not included)... Normal [facility] T3 FREE [facility] 08-15-2023 Free T3 [Mass/Vol] 3.1 pg/mL 2.3 - 4.1 pg/mL [facility] T4 FREE/FREE THYROXon 2023 Free T4 [Mass/Vol] 1.2 ng/dL 0.9 - 1.7 ng/dL [facility] TSH [facility] 08-15-2023 TSH Qn 2.140 m[IU]/L 0.270 - 4.200 mIU/L [facility] Absolute lymphocyte countOrd ered By: Aj Carmichael on 06-21-2023 Lymphocytes Auto (Unsp spec) [#/Vol] 1.93 10*3/uL 0.83-4.51 [facility] Automated lymphocyte count a s percentage of total leukocytesOrdered By: Aj Carmichael on 06-21-2023 Lymphocytes/100 WBC Auto (Unsp spec) 43.1 % 19-41 [facility] Basophil percentageOrdered B y: Aj Carmichael on 06-21-2023 Basophils/100 WBC (Bld) 0.2 % 0-1 [facility] Bilirubin [Mass/Vol] 1.00 mg/dL 0.20-1.00 [facility] Comment on above: For patients on eltr ombopag therapy, use of Dimension [place] TBIL is not recommended. Chloride [Moles/Vol] 109 mmol/L 98-107 [facility] Eosinophils/100 WBC (Bld) 3.3 % 0-5 [facility] Glucose [Mass/Vol] 88 mg/dL 74-106 [facility] Hemoglobin (Bld) [Mass/Vol] 13.4 g/dL 12.0-15.0 [facility] Monocytes/100 WBC (Bld) 5.8 % 0-10 [facility] Neutrophils (Bld) [#/Vol] 2.1 10*3/uL 2.0-7.7 [facility] Neutrophils/100 WBC (Bld) 47.6 % 47-70 [facility] Potassium [Moles/Vol] 4.2 mmol/L 3.5-5.1 [facility] Protein [Mass/Vol] 7.0 g/dL 6.4-8.2 [facility] Sodium [Moles/Vol] 142 mmol/L 136-145 [facility] WBC (Bld) [#/Vol] 4.5 10*3/uL 4.4-11.0 [facility] Determination of erythrocyte mean corpuscular volume (MCV)Ordered By: Aj Carmichael on 06-21-2023 MCV (RBC) [Entitic vol] 89.7 fL 81-99 [facility] Erythrocyte distribution wid th ratioOrdered By: Aj Carmichael on 06-21-2023 Erythrocyte distribution width (RBC) [Ratio] 13.0 % 11.6-14.6 [facility] Erythrocyte distribution wid th standard deviationOrdered By: Aj Carmichael on 06-21-2023 Erythrocyte distribution width (RBC) [Entitic vol] 42.7 fL 35.1-43.9 [facility] Hematocrit Auto (Bld) [Volum e fraction]Ordered By: Aj Carmichael on 06-21-2023 Hematocrit (Bld) [Volume fraction] 41.6 % 37-47 [facility] Immature granulocytes/100 WB C Auto (Bld)Ordered By: Aj Carmichael on 06-21-2023 Immature granulocytes/100 WBC (Bld) 0.000 % 0.0-0.9 [facility] Comment on above: IG% - Immature Granu locytes (promyelocytes, myelocytes and metamyelocytes) > 1% indicates that a LEFT SHIFT is Present. Iron measurement (mass/mass) Ordered By: Aj Carmichael on 06-21-2023 Iron (Unsp spec) [Mass/Mass] 76 ug/dL 50-170 [facility] Laboratory - Chemistry and C hemistry - challengeOrdered By: Aj Carmichael on 06-21-2023 Albumin/Globulin [Mass ratio] 1.1 {ratio} 0.9-2.4 [facility] ALP [Catalytic activity/Vol] 72 U/L 45-117 [facility] ALT [Catalytic activity/Vol] 37 U/L 13-56 [facility] CO2 [Moles/Vol] 28.0 mmol/L 21.0-32.0 [facility] Cobalamin (Vitamin B12) [Mass/Vol] 409 pg/mL 211-911 [facility] Ferritin [Mass/Vol] 17 ng/mL 8-252 [facility] Globulin (S) [Mass/Vol] 3.4 g/dL 2.2-4.2 [facility] Magnesium [Mass/Vol] 2.4 mg/dL 1.6-2.6 [facility] Urea nitrogen/Creatinine [Mass ratio] 24.5 mg/mg 10-20 [facility] Laboratory - Hematology and Cell countsOrdered By: Aj Carmichael on 06-21-2023 MCH (RBC) [Entitic mass] 28.9 pg 27.0-32.0 [facility] MCHC (RBC) [Mass/Vol] 32.2 g/dL 32-36 [facility] Nucleated RBC/100 WBC (Bld) [Ratio] 0 % 0-5 [facility] Platelet mean volume (Bld) [Entitic vol] 9.4 fL 6.2-12.0 [facility] Platelets (Bld) [#/Vol] 246 10*3/uL 150-450 [facility] No Panel InformationOrdered By: Aj Carmichael on 06-21-2023 Estimated GFR (MDRD) Amer 109 mL/min >60 [facility] Comment on above: GFR Calc Estimated GFR (MDRD) Non-Af Amer 90 mL/min >60 [facility] Comment on above: Non- GFR Calc Vitamin D 25-Hydroxy 45.8 ng/mL [facility] Comment on above: Vitamin D 25(OH) Sta tus Range Deficiency <20 ng/mL (50nmol/L) Insufficiency 20 - 30 ng/mL (50 - 75 nmol/L) Sufficiency 30 - 100 ng/mL (75 - 250 nmol/L) Toxicity >100 ng/mL (>250 nmol/L) RBC Auto (Bld) [#/Vol]Ordere d By: Aj Carmichael on 06-21-2023 RBC (Bld) [#/Vol] 4.64 10*6/uL 4.2-5.4 [facility] Serum or plasma calcium jose urement (mass/volume)Ordered By: Aj Carmichael on 06-21-2023 Calcium [Mass/Vol] 9.0 mg/dL 8.5-10.1 [facility] Serum or plasma creatinine m easurement (mass/volume)Ordered By: Aj Carmichael on 06-21-2023 Creatinine [Mass/Vol] 0.78 mg/dL 0.55-1.02 [facility] Comment on above: The validity of the calculated GFR & GFRAA in patients over 70 years has not been determined. Clinical correlation is essential. Serum or plasma thyroid stim ulating hormone (TSH) measurement (units/volume)Ordered By: Aj Carmichael on 06-21-2023 TSH Qn 1.41 uIU/mL 0.358-3.74 [facility] Serum or plasma urea nitroge n measurement (mass/volume)Ordered By: Aj Carmichael on 06-21-2023 Urea nitrogen [Mass/Vol] 19 mg/dL 7-18 [facility] Thin prep Papanicolaou smear with manual screeningOrdered By: Aj Carmichael on 06-21-2023 Thin prep Papanicolaou smear with manual screening 3.6 g/dL 3.2-5.0 [facility] Thin prep Papanicolaou smear with manual screening 21 U/L 15-37 [facility] Thin prep Papanicolaou smear with manual screening 5 5-15 [facility] Thin prep Papanicolaou smear with manual screening 1.04 ng/dL 0.76-1.46 [facility] No Panel InformationOrdered By: Felice Centeno on 03-09-2023 Parathyroid Hormone (Intact) 80.0 pg/mL 18.4-80.1 [facility] Serum or plasma calcium jose urement (mass/volume)Ordered By: Felice Centeno on 03-09-2023 Calcium [Mass/Vol] 9.4 mg/dL 8.5-10.1 [facility] US THYROID/PARATHYROIDon [facility] XR Abdomen Supine and Uprigh ton 09-24-2022 IMPRESSION: Unremarkable abdomen x-ray. Bonding Agent: TOM Transcribe Date/Time: Sep 24 2022 12:54P Dictated by : DENAE ARCE MD This examination was interpreted and the report reviewed and electronically signed by: DENAE ARCE MD on Sep 24 2022 12:56PM EST DIVISION OF RADIOLOGY * * *Final Report* [...] structures appear intact. DIVISION OF RADIOLOGY Provider, Lsis Vu - 09/24/2022 * * *Final Report* * [...] appear intact. IMPRESSION IMPRESSION: Unremarkable abdomen x-ray. Bonding Agent: TOM Transcribe Date/Time: Sep 24 2022 12:54P Dictated by : DENAE ARCE MD This examination was interpreted and the report reviewed and electronically signed by: DENAE ARCE MD on Sep 24 2022 12:56PM EST [facility] XR Abdomen Supine and Uprigh tOrdered By: Ccf Provider on 09-24-2022 [facility] CBC W Auto Differential pane l (Bld)on 09-21-2022 Basophils (Bld) [#/Vol] <0.11 k/uL [facility] Basophils/100 WBC (Bld) 0.3 % [facility] Differential cell count method Nom (Bld) Auto [facility] Eosinophils (Bld) [#/Vol] 0.08 10*3/uL <0.46 k/uL [facility] Eosinophils/100 WBC (Bld) 1.1 % [facility] Erythrocyte distribution width (RBC) [Ratio] 13.4 % 11.5 - 15.0 % [facility] Hematocrit (Bld) [Volume fraction] 41.8 % 36.0 - 46.0 % [facility] Hemoglobin (Bld) [Mass/Vol] 13.3 g/dL 11.5 - 15.5 g/dL [facility] Immature granulocytes (Bld) [#/Vol] <0.10 k/uL [facility] Immature granulocytes/100 WBC (Bld) 0.1 % [facility] Lymphocytes (Bld) [#/Vol] 2.22 10*3/uL 1.00 - 4.00 k/uL [facility] Lymphocytes/100 WBC (Bld) 30.5 % [facility] MCH (RBC) [Entitic mass] 28.7 pg 26.0 - 34.0 pg [facility] MCHC (RBC) [Mass/Vol] 31.8 g/dL 30.5 - 36.0 g/dL [facility] MCV (RBC) [Entitic vol] 90.1 fL 80.0 - 100.0 fL [facility] Monocytes (Bld) [#/Vol] 0.28 10*3/uL <0.87 k/uL [facility] Monocytes/100 WBC (Bld) 3.8 % C [facility] Neutrophils (Bld) [#/Vol] 4.68 10*3/uL 1.45 - 7.50 k/uL [facility] Neutrophils/100 WBC (Bld) 64.2 % [facility] Nucleated RBC (Bld) [#/Vol] <0.01 k/uL [facility] Nucleated RBC/100 WBC (Bld) [Ratio] 0.0 /100 WBC [facility] Platelet mean volume (Bld) [Entitic vol] 10.2 fL 9.0 - 12.7 fL [facility] Platelets (Bld) [#/Vol] 270 10*3/uL 150 - 400 k/uL [facility] RBC (Bld) [#/Vol] 4.64 10*6/uL 3.90 - 5.2 0 m/uL [facility] WBC (Bld) [#/Vol] 7.29 10*3/uL 3.70 - 11.00 k/uL [facility] XR Abdomen Supine and Uprigh ton 09-21-2022 Radiology Study observation (narrative) [facility] Absolute lymphocyte countOrd ered By: Dr. Smalls on 09-20-2022 Lymphocytes Auto (Unsp spec) [#/Vol] 2.36 10*3/uL 0.83-4.51 [facility] Basophil percentageOrdered B y: Dr. Smalls on 09-20-2022 Basophils/100 WBC (Bld) 0.3 % 0-1 [facility] Bilirubin [Mass/Vol] 0.70 mg/dL 0.20-1.00 [facility] Comment on above: For patients on eltr ombopag therapy, use of Dimension [place] TBIL is not recommended. Chloride [Moles/Vol] 104 mmol/L 98-107 [facility] Eosinophils/100 WBC (Bld) 1.3 % 0-5 [facility] Glucose [Mass/Vol] 93 mg/dL 74-106 [facility] [facility] Neutroph[facility] (Bld) [#/Vol] 4.0 10*3/uL 2.0-7.7 [facility] Neutrophils/100 WBC (Bld) 59.0 % 47-70 [facility] Potassium [Moles/Vol] 4.1 mmol/L 3.5-5.1 [facility] Protein [Mass/Vol] 7.2 g/dL 6.4-8.2 [facility] Sodium [Moles/Vol] 139 mmol/L 136-145 [facility] WBC (Bld) [#/Vol] 6.8 10*3/uL 4.4-11.0 [facility] Basophil percentage 0 SEEN /hpf 0-5 [facility] Bilirubin Test strip Ql (U)O rdered By: Dr. Smalls on 09-20-2022 Bilirubin Ql (U) Negative Negative [facility] Blood erythrocytes count (nu mber/volume)Ordered By: Dr. Smalls on 09-20-2022 RBC (Bld) [#/Vol] 4.69 10*6/uL 4.2-5.4 [facility] Blood hemoglobin measurement (mass/volume)Ordered By: Dr. Smalls on 09-20-2022 Hemoglobin (Bld) [Mass/Vol] 13.3 g/dL 12.0-15.0 [facility] Blood lymphocytes/100 leukoc ytesOrdered By: Dr. Smalls on 09-20-2022 Lymphocytes/100 WBC (Bld) 34.9 % 19-41 [facility] Blood monocytes/100 leukocyt esOrdered By: Dr. Smalls on 09-20-2022 Monocytes/100 WBC (Bld) 4.4 % 0-10 [facility] Blood platelet mean volumeOr dered By: Dr. Smalls on 09-20-2022 Platelet mean volume (Bld) [Entitic vol] 9.7 fL 6.2-12.0 [facility] Determination of erythrocyte mean corpuscular volume (MCV)Ordered By: Dr. Smalls on 09-20-2022 MCV (RBC) [Entitic vol] 88.1 fL 81-99 [facility] Hematocrit Auto (Bld) [Volum e fraction]Ordered By: Dr. Smalls on 09-20-2022 Hematocrit (Bld) [Volume fraction] 41.3 % 37-47 [facility] Ketones Test strip Ql (U)Ord ered By: Dr. Smalls on 09-20-2022 Ketones Ql (U) 50 mg/dl Negative [facility] Laboratory - Chemistry and C hemistry - challengeOrdered By: Dr. Smalls on 09-20-2022 ALP [Catalytic activity/Vol] 80 U/L 45-117 [facility] ALT [Catalytic activity/Vol] 31 U/L 13-56 [facility] CO2 [Moles/Vol] 27.0 mmol/L 21.0-32.0 [facility] Globulin (S) [Mass/Vol] 3.8 g/dL 2.2-4.2 [facility] Urea nitrogen/Creatinine [Mass ratio] 27.8 mg/mg 10-20 [facility] Laboratory - Hematology and Cell countsOrdered By: Dr. Smalls on 09-20-2022 Erythrocyte distribution width (RBC) [Entitic vol] 42.9 fL 35.1-43.9 [facility] Erythrocyte distribution width (RBC) [Ratio] 13.2 % 11.6-14.6 [facility] Immature granulocytes/100 WBC (Bld) 0.100 % 0.0-0.9 [facility] Comment on above: IG% - Immature Granu locytes (promyelocytes, myelocytes and metamyelocytes) > 1% indicates that a LEFT SHIFT is Present. MCH (RBC) [Entitic mass] 28.4 pg 27.0-32.0 [facility] Nucleated RBC/100 WBC (Bld) [Ratio] 0 % 0-5 [facility] MCHC Auto (RBC) [Mass/Vol]Or dered By: Dr. Smalls on 09-20-2022 MCHC (RBC) [Mass/Vol] 32.2 g/dL 32-36 [facility] Mucus LM Ql (Urine sed)Order ed By: Dr. Smalls on 09-20-2022 Mucus Ql (Urine sed) 0 SEEN /hpf [facility] Nitrite Test strip Ql (U)Ord ered By: Dr. Smalls on 09-20-2022 Nitrite Ql (U) Negative Negative [facility] No Panel InformationOrdered By: Dr. Smalls on 09-20-2022 Estimated Creatinine Clearance Calc 102.39 ml/min [facility] Estimated GFR (MDRD) Amer 113 mL/min >60 [facility] Comment on above: GFR Calc Estimated GFR (MDRD) Non-Af Amer 94 mL/min >60 [facility] Comment on above: Non- GFR Calc Platelets bldOrdered By: Dr. Smalls on 09-20-2022 Platelets (Bld) [#/Vol] 276 10*3/uL 150-450 [facility] Protein Test strip Ql (U)Ord ered By: Dr. Smalls on 09-20-2022 Protein Ql (U) Negative Negative [facility] Serum or plasma albumin jose urement (mass/volume)Ordered By: Dr. Smalls on 09-20-2022 Albumin [Mass/Vol] 3.4 g/dL 3.2-5.0 [facility] Serum or plasma albumin/glob ulin mass ratioOrdered By: Dr. Smalls on 09-20-2022 Albumin/Globulin [Mass ratio] 0.9 {ratio} 0.9-2.4 [facility] Serum or plasma calcium jose urement (mass/volume)Ordered By: Dr. Smalls on 09-20-2022 Calcium [Mass/Vol] 9.0 mg/dL 8.5-10.1 [facility] Serum or plasma creatinine m easurement (mass/volume)Ordered By: Dr. Smalls on 09-20-2022 Creatinine [Mass/Vol] 0.76 mg/dL 0.55-1.02 [facility] Comment on above: The validity of the calculated GFR & GFRAA in patients over 70 years has not been determined. Clinical correlation is essential. Serum or plasma urea nitroge n measurement (mass/volume)Ordered By: Dr. Smalls on 09-20-2022 Urea nitrogen [Mass/Vol] 21 mg/dL 7-18 [facility] Squamous epithelial cells de tection in urine sediment by light microscopyOrdered By: Dr. Smalls on 09-20-2022 Epithelial cells.squamous LM Ql (Urine sed) 5-10 SEEN /hpf 5-10 [facility] Thin prep Papanicolaou smear with manual screeningOrdered By: Dr. Smalls on 09-20-2022 Thin prep Papanicolaou smear with manual screening 15 U/L 15-37 [facility] Thin prep Papanicolaou smear with manual screening 8 5-15 [facility] Urine blood detectionOrdered By: Dr. Smalls on 09-20-2022 RBC Ql (U) Negative Negative [facility] RBC Ql (U) 0 SEEN /hpf 0-5 [facility] Urine clarityOrdered By: Dr. Smalls on 09-20-2022 Clarity (U) Clear Clear [facility] Urine color determinationOrd ered By: Dr. Smalls on 09-20-2022 Color (U) Yellow Yellow [facility] Urine glucose detectionOrder ed By: Dr. Smalls on 09-20-2022 Glucose Ql (U) Normal mg/dl Normal [facility] Urine leukocyte esterase det ection by dipstickOrdered By: Dr. Smalls on 09-20-2022 Leukocyte esterase Test strip Ql (U) Negative Negative [facility] Urine pHOrdered By: Dr. Maribell amor on 09-20-2022 pH (U) 6.5 [pH] 5.0 - 8.0 [facility] Urine sediment bacteria coun t by microscopy (number/high power field)Ordered By: Dr. Smalls on 09-20-2022 Bacteria LM.HPF (Urine sed) [#/Area] 1 /[HPF] None Seen [facility] Urine specific gravity measu rementOrdered By: Dr. Smalls on 09-20-2022 Specific gravity (U) [Rel density] 1.015 1.002-1.030 [facility] Urobilinogen Auto test strip Ql (U)Ordered By: Dr. Smalls on 09-20-2022 Urobilinogen Ql (U) Normal mg/dl Normal [facility] No Panel Informationon 07-19 POC SARS CoV-2 Antigen Negative [facility] Comprehensive metabolic 2000 panelon 05-14-2022 Albumin [Mass/Vol] 4.1 g/dL 3.9 - 4.9 g/dL [facility] ALP [Catalytic activity/Vol] 78 U/L 34 - 123 U/L [facility] ALT [Catalytic activity/Vol] 19 U/L 7 - 38 U/L [facility] Anion gap [Moles/Vol] 9 mmol/L 9 - 18 mmol/L [facility] AST [Catalytic activity/Vol] 17 U/L 13 - 35 U/L [facility] Bilirubin [Mass/Vol] 0.9 mg/dL 0.2 - 1 .3 mg/dL [facility] Calcium [Mass/Vol] 9.4 mg/dL 8.5 - 10. 2 mg/dL [facility] Chloride [Moles/Vol] 103 mmol/L 97 - 10 5 mmol/L [facility] CO2 [Moles/Vol] 24 mmol/L 22 - 30 mmol/L [facility] Creatinine [Mass/Vol] 0.79 mg/dL 0.58 - 0.96 mg/dL [facility] Estimated Glomerular Filtration Rate 101 mL/min/1.73m >=60 mL/min/1.73 m [facility] Glucose [Mass/Vol] 81 mg/dL 74 - 99 mg/dL [facility] Potassium [Moles/Vol] 4.3 mmol/L 3.7 - 5.1 mmol/L [facility] Protein [Mass/Vol] 7.2 g/dL 6.3 - 8.0 g/dL [facility] Sodium [Moles/Vol] 136 mmol/L 136 - 144 mmol/L [facility] Urea nitrogen [Mass/Vol] 16 mg/dL 7 - 21 mg/dL [facility] HbA1c (Bld)on 05-14-2022 Average glucose Estimated from glycated hemoglobin (Bld) [Mass/Vol] 100 mg/dL [facility] HbA1c (Bld) [Mass fraction] 5.1 % 4.3 - 5.6 % [facility] Lipid 1996 panelon 3 Cholesterol [Mass/Vol] 178 mg/dL <200 mg/dL [facility] Cholesterol in HDL [Mass/Vol] 48 mg/dL >39 mg/dL [facility] Cholesterol in LDL [Mass/Vol] 118 mg/dL High <100 mg/dL [facility] Cholesterol in LDL/Cholesterol in HDL [Mass ratio] 2.46 {ratio} <2.54 [facility] Cholesterol in VLDL [Mass/Vol] 12 mg/dL <30 mg/dL [facility] Cholesterol non HDL [Mass/Vol] 130 mg/dL High <130 mg/dL [facility] Cholesterol.total/Jada sterol in HDL [Mass ratio] 3.71 {ratio} <5.10 [facility] Fasting Time 13 hrs [facility] Triglyceride [Mass/Vol] 60 mg/dL <150 mg/dL C [facility] Progress Noteon 01-31-2018 [employer] Authentication Interface Message Text Reason for Referral Mary Fournier and her partner Kash Junior were seen by myself and Kathe Van MS, [facility] on 01/31/2018 at [facility]'s [place] office in order to discuss the results [...] had an ultrasound evaluation on 12/18/[address] [facility] due to bleeding and the passage of [...] cystic fibrosis has been requested from her [employer] office. 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 Nidia Bergeron at [facility] [place] [facility]). Mary was not sure if carrier [...] abnormalities, or genetic conditions. Mary is of [place]ian, F[place] and ancestry, and her partner is of [place]ian, Greek and [place] ancestry. There is no known Ashkenazi Orthodox ancestry and no known consanguinity. Ultrasound Findings [...] Mary's increased BMI Obtaining a copy of Pr[facility] previous carrier screening for cystic fibrosis Carrier [...] 03/13/2018 at 1:00 pm in Maternal Medicine's [place] office.) Monitor growth every 4 weeks beginning [...] thrombophilia testing. Consideration of anticoagulation due to Mary's multiple clotting risk factors, including a first degree relative with recurrent DVTs and a pulmonary embolism, a possible family history of a hereditary thrombophilia, and her increased BMI. Consideration of a hereditary cancer consultation and risk assessment due to Mary's family history of early-onset ovarian cancer. If so desired, an appointment can be scheduled with [facility]'s Hereditary Cancer Program by contacting the Genetic Center at [phone]. Additional follow-up should be as clinically indicated. The total patient time of the visit was 15 minutes, of which greater than 50% of the time was spent counseling and coordinating care. Larry Raman, Normal [facility] ED Note-Provideron 8 ED Note-Provider Normal [facility] ([place]) Pat Eduon 08-11-2017 [facility] Patient Summary Documentson 08-11-2017 Patient Summary Documents [facility]: Type AND Screeno n 03-04-2017 Antibody Screen Negative Normal [facility] Lab Report: (P) Urinalysis, Completeon 03-04-2017 Bilirubin Ql (U) Negative Invalid Interpretation Code Negative [facility] NITRITE UR Negative Invalid Interpretation Code Negative [facility] OCCULT BLOOD-UR 250 High Negative [facility] specific gravity, urine 1.005 Invalid Interpretation Code 1.002-1.030 [facility] Urine, clarity Cloudy Invalid Interpretation Code Clear [facility] Urine, color Yellow Invalid Interpretation Code Yellow [facility] Urine, glucose presence Normal mg/dl Invalid Interpretation Code Normal [facility] Urine, ketones presence 150 High [facility] Urine, leukocyte esterase presence 500 High Negative [facility] Urine, pH 7.0 [pH] Invalid Interpretation Code 5.0 - 8.0 [facility] Urine, protein 30 mg/dL High Negative [facility] UROBILI Normal mg/dl Invalid Interpretation Code Normal [facility] Lab Report: CBC-Complete Blo od Cnt No Diffon 03-04-2017 Erythrocyte distribution width Auto Ratio (RBC) 14.9 % High 11.6-14.6 [facility] Erythrocytes (RBC) 4.70 10*6/uL Invalid Interpretation Code 4.2-5.4 [facility] Hematocrit (HCT) 39.4 % Invalid Interpretation Code 37-47 [facility] Hemoglobin mass conc (Bld) 12.7 g/dL Invalid Interpretation Code 12.0-15.0 [facility] MCH 27.0 pg Invalid Interpretation Code 27.0-32.0 [facility] MCHC mass conc (RBC) 32.2 G/GL Invalid Interpretation Code 32-36 [facility] MCV 83.8 fL Invalid Interpretation Code 81-99 [facility] Platelets 266 10*3/mm3 Invalid Interpretation Code 150-450 [facility] PMV by Cheng 10.6 fL Invalid Interpretation Code 6.2-12.0 [facility] RDW SD 45.6 fL High 35.1-43.9 [facility] WBC (Leukocytes) 13.5 10*3/uL High 4.4-11.0 [facility] Lab Report: Comprehensive Ms tabolic Profilon 03-04-2017 Alanine aminotransferase (ALT) 20 U/L Invalid Interpretation Code 12-78 [facility] Albumin/Globulin Ratio 0.5 {ratio} Low 0.9-2.4 [facility] Alkaline phosphatase (ALP) 160 U/L High 45-117 [facility] Anion gap 13 mmol/L Invalid Interpretation Code 5-15 [facility] Aspartate aminotransferase (AST) 13 U/L Low 15-37 [facility] Bilirubin (total) 0.80 mg/dL Invalid Interpretation Code 0.20-1.00 [facility] Calcium 9.3 mg/dL Invalid Interpretation Code 8.5-10.1 [facility] Chloride 102 mmol/L Invalid Interpretation Code 98-107 [facility] CO2 21.0 mmol/L Invalid Interpretation Code 21.0-32.0 [facility] Globulin 4.7 g/dL High 2.2-4.2 [facility] Potassium molar conc 4.1 mmol/L Invalid Interpretation Code 3.5-5.1 [facility] Sodium 136 mmol/L Invalid Interpretation Code 136-145 [facility] Albumin 2.4 g/dL Low 3.4-5.0 [facility] BUN/Creatinine Ratio 13.9 RATIO Invalid Interpretation Code 10-20 [facility] Creatinine 118.39 mL/min Invalid Interpretation Code [facility] Creatinine 0.72 mg/dL Invalid Interpretation Code 0.55-1.02 [facility] eGFR (non-black) 125 mL/min/{1.73_m2} Invalid Interpretation Code >60 [facility] eGFR (non-black) 103 mL/min/{1.73_m2} Invalid Interpretation Code >60 [facility] Glucose mass conc 77 mg/dL Invalid Interpretation Code 70-110 [facility] Protein 7.1 g/dL Invalid Interpretation Code 6.4-8.2 [facility] Urea nitrogen 10 mg/dL Invalid Interpretation Code 7-18 [facility] Lab Report: Protein+Creatini ne Ratio,Urineon 03-04-2017 Protein [Mass] in Urine collected for unspecified duration 45.3 mg/dL High <11.9 [facility] protein/creatinine, urine, point, quantitative 571 MG/G CRE High 0-200 [facility] Urine, creatinine 79.40 mg/dL Invalid Interpretation Code NO RANGE EST. [facility] Lab Report: Urinalysis, Comp leteon 03-04-2017 Urine, bacteria in sediment 2 /[HPF] Invalid Interpretation Code None Seen [facility] Urine, epithelial cells in sediment 5-10 SEEN Invalid Interpretation Code 5-10 [facility] Urine, erythrocytes in sediment by volume 0-5 SEEN Invalid Interpretation Code 0-5 [facility] Urine, mucus presence in sediment 0 SEEN Invalid Interpretation Code [facility] WBC (Leukocytes) 50-100 SEEN Invalid Interpretation Code 0-5 [facility] Office Visit: OB Routineon 1 Documentation of current medications (procedure) Done Invalid Interpretation Code [facility] Office Visit: OB Routineon 1 Urine, glucose presence N Invalid Interpretation Code [facility] Office Visit: OB Routineon 1 Tobacco smoking status NHIS Never Invalid Interpretation Code [facility] Tobacco use CPHS Never smoker Invalid Interpretation Code [facility] Microbiology: Culture, Group B Streptococcuson 02-13-2017 CUGRB THAIS CultureGroup B Beta Streptococcus is not isolated. Invalid Interpretation Code [facility] Lab Report: Group B Strep DN A By PCRon 02-10-2017 GBS TEST RESULT Negative Invalid Interpretation Code Negative [facility] Office Visit: OB Routineon 0 12-29-2016 Urine, nitrite presence + Invalid Interpretation Code [facility] Vital Signs Date Time Vital Sign Value Performing Clinician Facility 01-17-2025 10:10-0400 Body mass index (BMI) [Ratio] 38.89 kg/m2 Manuela Isbell MD Work Phone: [facility] 01-17-2025 10:10-0400 Body weight 109.3 kg Manuela Isbell MD Work Phone: [facility] 01-17-2025 10:10-0400 Diastolic blood pressure 85 mm[Hg] Manuela Isbell MD Work Phone: [facility] 01-17-2025 10:10-0400 Heart rate 68 /min Manuela Isbell MD Work Phone: [facility] 01-17-2025 10:10-0400 Systolic blood pressure 128 mm[Hg] Manuela Isbell MD Work Phone: [facility] 12-31-2024 09:30-0400 Body height 167.[address] Work Phone: [facility] 12-31-2024 09:30-0400 Body mass index (BMI) [Ratio] 36.32 kg/m2 Stef Luis RD Work Phone: [facility] 12-31-2024 09:30-0400 Body weight 102.[address] Work Phone: [facility] Comment on above: per patient report 12-26-2024 06:35-0400 Body height 170.[address] Asif Haque MD Work Phone: [facility] 12-26-2024 06:35-0400 Body temperature 98.5 [degF] Dr. Asif Haque MD Work Phone: [facility] 12-26-2024 06:35-0400 Diastolic blood pressure 58 mm[Hg] Dr. Asif Haque MD Work Phone: 4(732)873-976408 [place] [address] 12-26-2024 06:35-0400 Heart rate 70 /min Dr. Asif Haque MD Work Phone: 0(965)884-124008 [place] [address] 12-26-2024 06:35-0400 Respiratory rate 16 /min Dr. Asif Haque MD Work Phone: 3(276)858-631108 [place] [address] 12-26-2024 06:35-0400 SaO2% (BldA) [Mass fraction] 98 % Dr. Asif Haque MD Work Phone: 4(018)001-098808 [place] [address] 12-26-2024 06:35-0400 Systolic blood pressure 110 mm[Hg] Dr. Asif Haque MD Work Phone: 0(739)193-510408 [place] [address] 11-09-2024 11:33-0400 Body temperature 98.2 [degF] Dr. Asif Haque MD Work Phone: 2(431)129-262408 [place] [address] 11-09-2024 11:33-0400 Diastolic blood pressure 85 mm[Hg] Dr. Asif Haque MD Work Phone: 3(911)638-162108 [place] [address] 11-09-2024 11:33-0400 Heart rate 67 /min Dr. Asif Haque MD Work Phone: 4(869)018-410808 [place] [address] 11-09-2024 11:33-0400 Respiratory rate 14 /min Dr. Asif Haque MD Work Phone: 8(924)259-710408 [place] [address] 11-09-2024 11:33-0400 SaO2% (BldA) [Mass fraction] 100 % Dr. Asif Haque MD Work Phone: 8(062)648-573808 [place] [address] 11-09-2024 11:33-0400 Systolic blood pressure 124 mm[Hg] Dr. Asif Haque MD Work Phone: 6(020)255-067308 [place] [address] 11-09-2024 08:17-0400 Body height 170.[address] Asif Haque MD Work Phone: 2(431)399-938608 [place] [address] 11-09-2024 08:17-0400 Body mass index (BMI) [Ratio] 36.6 kg/m2 Dr. Asif Haque MD Work Phone: 9(113)539-415108 [place] [address] 11-09-2024 08:17-0400 Body weight 106.[address] Asif Haque MD Work Phone: 3(136)463-583508 [place] [address] 11-07-2024 05:29-0400 Body temperature 98.9 [degF] Dr. Asif Haque MD Work Phone: 8(979)186-862508 [place] [address] 11-07-2024 05:29-0400 Diastolic blood pressure 77 mm[Hg] Dr. Asif Haque MD Work Phone: 4(911)245-008708 [place] [address] 11-07-2024 05:29-0400 Heart rate 90 /min Dr. Asif Haque MD Work Phone: 0(783)073-077908 [place] [address] 11-07-2024 05:29-0400 Respiratory rate 18 /min Dr. Asif Haque MD Work Phone: 7(003)305-616408 [place] [address] 11-07-2024 05:29-0400 SaO2% (BldA) [Mass fraction] 95 % Dr. Asif Haque MD Work Phone: 3(610)781-321908 [place] [address] 11-07-2024 05:29-0400 Systolic blood pressure 125 mm[Hg] Dr. Asif Haque MD Work Phone: 3(608)620-404508 [place] [address] 11-07-2024 03:07-0400 Body height 170.[address] Asif Haque MD Work Phone: 1(631)534-469808 [place] [address] 11-07-2024 03:07-0400 Body mass index (BMI) [Ratio] 38.7 kg/m2 Dr. Asif Haque MD Work Phone: 5(209)299-034722 [place] [address] 11-07-2024 03:07-0400 Body weight 112.[address] Asif Haque MD Work Phone: 5(025)601-450708 [place] [address] 11-05-2024 09:33-0400 Body height 167.[address] Work Phone: [facility] 11-05-2024 09:33-0400 Body mass index (BMI) [Ratio] 36.32 kg/m2 Stef Luis RD Work Phone: [facility] 11-05-2024 09:33-0400 Body weight 102.[address] Work Phone: [facility] Comment on above: verbal per patient 09-21-2024 06:11-0400 Body temperature 98.3 [degF] Dr. Asif Haque MD Work Phone: [facility] 09-21-2024 06:11-0400 Diastolic blood pressure 60 mm[Hg] Dr. Asif Haque MD Work Phone: [facility] 09-21-2024 06:11-0400 Heart rate 87 /min Dr. Asif Haque MD Work Phone: [facility] 09-21-2024 06:11-0400 SaO2% (BldA) [Mass fraction] 98 % Dr. Asif Haque MD Work Phone: [facility] 09-21-2024 06:11-0400 Systolic blood pressure 110 mm[Hg] Dr. Asif Haque MD Work Phone: [facility] 08-09-2024 09:56-0400 Body mass index (BMI) [Ratio] 35.08 kg/m2 Manuela Isbell MD Work Phone: [facility] 08-09-2024 09:56-0400 Body weight 101.6 kg Manuela Isbell MD Work Phone: [facility] 08-09-2024 09:56-0400 Diastolic blood pressure 79 mm[Hg] Manuela Isbell MD Work Phone: [facility] 08-09-2024 09:56-0400 Heart rate 79 /min Manuela Isbell MD Work Phone: [facility] 08-09-2024 09:56-0400 Systolic blood pressure 127 mm[Hg] Manuela Isbell MD Work Phone: [facility] 07-13-2024 13:32-0500 Body height 170.[address] Work Phone: [facility] 07-13-2024 13:32-0500 Body mass index (BMI) [Ratio] 33.99 kg/m2 Stef Dimarino RD Work Phone: [facility] 07-13-2024 13:32-0500 Body weight 98.[address] Work Phone: [facility] Comment on above: verbal per patient 07-04-2024 15:26-0500 Body mass index (BMI) [Ratio] 35.08 kg/m2 Manuela Isbell MD Work Phone: [facility] 07-04-2024 15:26-0500 Body weight 101.61 kg Manuela Isbell MD Work Phone: [facility] 05-29-2024 12:50-0500 Body height 170.2 cm Ping Ansari SUPERVISOR [employer]IATES.PHARMACY GENERAL MANAGER Work Phone: [facility] 04-09-2024 12:53-0500 Body height 170.[address] Work Phone: [facility] 04-09-2024 12:53-0500 Body mass index (BMI) [Ratio] 32.58 kg/m2 Stef Dimarino RD Work Phone: [facility] 04-09-2024 12:53-0500 Body weight 94.[address] Work Phone: [facility] Comment on above: verbal per patient 03-06-2024 07:39-0400 Body mass index (BMI) [Ratio] 34.15 kg/m2 Ike Carmichael SUPERVISOR [employer]MEDI[employer].PHARMACY GENERAL MANAGER Work Phone: [facility] 03-06-2024 07:39-0400 Body temperature 98.49 [degF] Ike Carmichael SUPERVISOR [employer].PHARMACY GENERAL MANAGER Work Phone: [facility] 03-06-2024 07:39-0400 Body weight 98.9 kg Ike Carmichael SUPERVISOR [employer].PHARMACY GENERAL MANAGER Work Phone: [facility] 03-06-2024 07:39-0400 Diastolic blood pressure 80 mm[Hg] Ike Carmichael SUPERVISOR [employer].PHARMACY GENERAL MANAGER Work Phone: [facility] 03-06-2024 07:39-0400 Heart rate 100 /min Ike Carmichael SUPERVISOR [employer].PHARMACY GENERAL MANAGER Work Phone: [facility] 03-06-2024 07:39-0400 Respiratory rate 18 /min Ike Carmichael SUPERVISOR [employer].PHARMACY GENERAL MANAGER Work Phone: [facility] 03-06-2024 07:39-0400 SaO2% (BldA) [Mass fraction] 98 % Ike Carmichael SUPERVISOR [employer].PHARMACY GENERAL MANAGER Work Phone: [facility] 03-06-2024 07:39-0400 Systolic blood pressure 122 mm[Hg] Ike Carmichael SUPERVISOR [employer].PHARMACY GENERAL MANAGER Work Phone: [facility] 02-20-2024 06:50-0400 Body height 170.2 cm Ping Prince SUPERVISOR [employer].PHARMACY GENERAL MANAGER Work Phone: [facility] 02-20-2024 06:50-0400 Body mass index (BMI) [Ratio] 33.67 kg/m2 Ping Prince SUPERVISOR [employer].PHARMACY GENERAL MANAGER Work Phone: [facility] 02-20-2024 06:50-0400 Body weight 97.52 kg Ping Prince SUPERVISOR [employer].PHARMACY GENERAL MANAGER Work Phone: [facility] 02-14-2024 09:16-0400 Body height 170.2 cm Donita Green MD Work Phone: [facility] 02-14-2024 09:16-0400 Body mass index (BMI) [Ratio] 33.67 kg/m2 Donita Green MD Work Phone: [facility] 02-14-2024 09:16-0400 Body weight 97.52 kg Donita Green MD Work Phone: [facility] 02-14-2024 09:16-0400 Diastolic blood pressure 90 mm[Hg] Donita Green MD Work Phone: [facility] 02-14-2024 09:16-0400 Heart rate 78 /min Donita Green MD Work Phone: [facility] 02-14-2024 09:16-0400 Respiratory rate 17 /min Donita Green MD Work Phone: [facility] 02-14-2024 09:16-0400 SaO2% (BldA) [Mass fraction] 97 % Donita Green MD Work Phone: [facility] 02-14-2024 09:16-0400 Systolic blood pressure 122 mm[Hg] Donita Green MD Work Phone: [facility] 01-06-2024 15:05-0400 Body height 170.[address] Work Phone: [facility] 01-06-2024 15:05-0400 Body mass index (BMI) [Ratio] 31.73 kg/m2 Stef Jarettarino RD Work Phone: [facility] 01-06-2024 15:05-0400 Body weight 91.[address] Work Phone: [facility] Comment on above: verbal per patient 11-21-2023 13:29-0400 Body mass index (BMI) [Ratio] 32.26 kg/m2 Kiera Suppan SUPERVISOR [employer].PHARMACY GENERAL MANAGER Work Phone: [facility] 11-21-2023 13:29-0400 Body weight 93.44 kg Kiera Suppan SUPERVISOR [employer].PHARMACY GENERAL MANAGER Work Phone: [facility] 11-21-2023 13:29-0400 Diastolic blood pressure 72 mm[Hg] Kiera Suppan SUPERVISOR [employer].PHARMACY GENERAL MANAGER Work Phone: [facility] 11-21-2023 13:29-0400 Heart rate 97 /min Kiera Suppan SUPERVISOR [employer].PHARMACY GENERAL MANAGER Work Phone: [facility] 11-21-2023 13:29-0400 SaO2% (BldA) [Mass fraction] 99 % Kiera Suppan SUPERVISOR [employer].PHARMACY GENERAL MANAGER Work Phone: [facility] 11-21-2023 13:29-0400 Systolic blood pressure 110 mm[Hg] Kiera Tomjuhi SUPERVISOR [employer].PHARMACY GENERAL MANAGER Work Phone: [facility] 10-20-2023 11:19-0400 Body height 170.2 cm Ping Prince SUPERVISOR INTERMEDI[employer].PHARMACY GENERAL MANAGER Work Phone: [facility] 10-20-2023 11:19-0400 Body mass index (BMI) [Ratio] 31.98 kg/m2 Ping Prince SUPERVISOR [employer].PHARMACY GENERAL MANAGER Work Phone: [facility] 10-20-2023 11:19-0400 Body weight 92.63 kg Ping Prince SUPERVISOR [employer].PHARMACY GENERAL MANAGER Work Phone: [facility] 10-07-2023 14:54-0400 Body height 170.[address] Work Phone: [facility] 10-07-2023 14:54-0400 Body mass index (BMI) [Ratio] 31.42 kg/m2 Stef Dimarino RD Work Phone: [facility] 10-07-2023 14:54-0400 Body weight 90.[address] Work Phone: [facility] Comment on above: verbal per patient 08-15-2023 09:53-0400 Body height 170.2 cm Donita Green MD Work Phone: [facility] 08-15-2023 09:53-0400 Body weight 91.63 kg Donita Green MD Work Phone: [facility] 08-15-2023 09:53-0400 Diastolic blood pressure 84 mm[Hg] Donita Green MD Work Phone: [facility] 08-15-2023 09:53-0400 Heart rate 84 /min Donita Green MD Work Phone: [facility] 08-15-2023 09:53-0400 Respiratory rate 17 /min Donita Green MD Work Phone: [facility] 08-15-2023 09:53-0400 SaO2% (BldA) [Mass fraction] 98 % Donita Green MD Work Phone: [facility] 08-15-2023 09:53-0400 Systolic blood pressure 122 mm[Hg] Donita Green MD Work Phone: [facility] 07-14-2023 10:51-0500 Body height 167.6 cm Ping Prince SUPERVISOR [employer].PHARMACY GENERAL MANAGER Work Phone: [facility] 07-14-2023 10:51-0500 Body weight 96.16 kg Ping Prince SUPERVISOR [employer]MEDI[employer].PHARMACY GENERAL MANAGER Work Phone: [facility] 07-07-2023 15:17-0500 Body height 167.[address] Work Phone: [facility] 07-07-2023 15:17-0500 Body weight 96.[address] Work Phone: [facility] 05-13-2023 11:40-0500 Body height 170.[address] Asif Haque Work Phone: [facility] 05-13-2023 11:36-0500 Body mass index (BMI) [Ratio] 32.3 kg/m2 Dr. Asif Haque Work Phone: [facility] 05-13-2023 11:36-0500 Body weight 93.[address] Asif Haque Work Phone: [facility] 05-13-2023 11:36-0500 Diastolic blood pressure 84 mm[Hg] Dr. Asif Haque Work Phone: [facility] 05-13-2023 11:36-0500 Systolic blood pressure 132 mm[Hg] Dr. Asif Haque Work Phone: [facility] 05-10-2023 13:18-0500 Body mass index (BMI) [Ratio] 32.4 kg/m2 Dr. Asif Haque Work Phone: [facility] 05-10-2023 13:18-0500 Body temperature 98.9 [degF] Dr. Asif Haque Work Phone: [facility] 05-10-2023 13:18-0500 Body weight 94.[address] Asif Haque Work Phone: [facility] 05-10-2023 13:18-0500 Diastolic blood pressure 76 mm[Hg] Dr. Asif Haque Work Phone: 1(228)241-378222 [place] [address] 05-10-2023 13:18-0500 Heart rate 80 /min Dr. Asif Haque Work Phone: 2(766)528-525108 [place] [address] 05-10-2023 13:18-0500 Respiratory rate 16 /min Dr. Asif Haque Work Phone: 1(285)725-348522 [place] [address] 05-10-2023 13:18-0500 SaO2% (BldA) [Mass fraction] 98 % Dr. Asif Haque Work Phone: [facility] 05-10-2023 13:18-0500 Systolic blood pressure 136 mm[Hg] Dr. Asif Haque Work Phone: 6(001)558-774339 [address] 03-09-2023 12:57-0400 Heart rate 61 /min Dr. Asif Haque Work Phone: [facility] 03-09-2023 12:57-0400 Respiratory rate 17 /min Dr. Asif Haque Work Phone: [facility] 11-18-2022 11:19-0400 Body weight 90.27 kg NA Swain PA-C Work Phone: [facility] 11-18-2022 11:19-0400 Diastolic blood pressure 70 mm[Hg] NA Swain PA-C Work Phone: [facility] 11-18-2022 11:19-0400 Heart rate 89 /min NA Swain PA-C Work Phone: [facility] 11-18-2022 11:19-0400 Respiratory rate 16 /min NA Swain PA-C Work Phone: [facility] 11-18-2022 11:19-0400 SaO2% (BldA) [Mass fraction] 98 % NA Swain PA-C Work Phone: [facility] 11-18-2022 11:19-0400 Systolic blood pressure 120 mm[Hg] NA Swain PA-C Work Phone: [facility] 09-21-2022 12:56-0400 Body temperature 99.19 [degF] Caroline Miller PA-C Work Phone: [facility] 09-21-2022 12:56-0400 Body weight 91.63 kg Caroline Miller PA-C Work Phone: [facility] 09-21-2022 12:56-0400 Diastolic blood pressure 82 mm[Hg] Caroline Miller PA-C Work Phone: [facility] 09-21-2022 12:56-0400 Heart rate 64 /min Caroline Miller PA-C Work Phone: [facility] 09-21-2022 12:56-0400 Respiratory rate 20 /min Caroline Miller PA-C Work Phone: [facility] 09-21-2022 12:56-0400 SaO2% (BldA) [Mass fraction] 97 % Caroline Miller PA-C Work Phone: [facility] 09-21-2022 12:56-0400 Systolic blood pressure 116 mm[Hg] Caroline Miller PA-C Work Phone: [facility] 09-20-2022 19:26-0400 Diastolic blood pressure 68 mm[Hg] Dr. Asif Haque Work Phone: [facility] 09-20-2022 19:26-0400 Heart rate 70 /min Dr. Asif Haque Work Phone: [facility] 09-20-2022 19:26-0400 Respiratory rate 18 /min Dr. Asif Haque Work Phone: 2(091)762-085508 [place] [address] 09-20-2022 19:26-0400 SaO2% (BldA) [Mass fraction] 100 % Dr. Asif Haque Work Phone: 9(751)667-612108 [place] [address] 09-20-2022 19:26-0400 Systolic blood pressure 120 mm[Hg] Dr. Asif Haque Work Phone: 4(695)327-162508 [place] [address] 09-20-2022 17:01-0400 Body height 170.[address] Asif Haque Work Phone: 6(980)356-023608 [place] [address] 09-20-2022 17:01-0400 Body mass index (BMI) [Ratio] 31.6 kg/m2 Dr. Asif Haque Work Phone: 5(128)371-680108 [place] [address] 09-20-2022 17:01-0400 Body temperature 99.7 [degF] Dr. Asif Haque Work Phone: 7(853)603-247408 [place] [address] 09-20-2022 17:01-0400 Body weight 91.[address] Asif Haque Work Phone: 4(158)882-957908 [place] [address] 07-19-2022 06:33-0400 Body temperature 101.4 [degF] Dr. Asif Haque Work Phone: 4(923)524-650808 [place] [address] 07-19-2022 06:33-0400 Diastolic blood pressure 74 mm[Hg] Dr. Asif Haque Work Phone: 1(209)451-082708 [place] [address] 07-19-2022 06:33-0400 Heart rate 110 /min Dr. Asif Haque Work Phone: 0(388)558-597608 [place] [address] 07-19-2022 06:33-0400 Respiratory rate 16 /min Dr. Asif Haque Work Phone: 3(736)681-501708 [place] [address] 07-19-2022 06:33-0400 SaO2% (BldA) [Mass fraction] 97 % Dr. Asif Haque Work Phone: 9(767)368-472408 [place] [address] 07-19-2022 06:33-0400 Systolic blood pressure 132 mm[Hg] Dr. Asif Haque Work Phone: 4(853)799-092608 [place] [address] 05-14-2022 09:58-0500 Body weight 96.62 kg NA Swain PA-C Work Phone: [facility] 05-14-2022 09:58-0500 Diastolic blood pressure 64 mm[Hg] NA Swain PA-C Work Phone: [facility] 05-14-2022 09:58-0500 Heart rate 70 /min NA Swain PA-C Work Phone: [facility] 05-14-2022 09:58-0500 Respiratory rate 16 /min NA Swain PA-C Work Phone: [facility] 05-14-2022 09:58-0500 SaO2% (BldA) [Mass fraction] 96 % NA Swain PA-C Work Phone: [facility] 05-14-2022 09:58-0500 Systolic blood pressure 120 mm[Hg] NA Swain PA-C Work Phone: [facility] 04-21-2022 09:25-0500 Body temperature 100.9 [degF] Nettie Haagen SUPERVISOR INTERMEDIATES.PHARMACY GENERAL MANAGER Work Phone: [facility] 04-21-2022 09:25-0500 Diastolic blood pressure 82 mm[Hg] Nettie Haagen SUPERVISOR [employer]IATES.PHARMACY GENERAL MANAGER Work Phone: [facility] 04-21-2022 09:25-0500 Heart rate 86 /min Nettie Haagen SUPERVISOR INTERMEDIATES.PHARMACY GENERAL MANAGER Work Phone: [facility] 04-21-2022 09:25-0500 Respiratory rate 18 /min Nettie Haagen SUPERVISOR INTERMEDIATES.PHARMACY GENERAL MANAGER Work Phone: [facility] 04-21-2022 09:25-0500 SaO2% (BldA) [Mass fraction] 96 % Nettie Haagen SUPERVISOR INTERMEDIATES.PHARMACY GENERAL MANAGER Work Phone: [facility] 04-21-2022 09:25-0500 Systolic blood pressure 124 mm[Hg] Nettie Haagen SUPERVISOR INTERMEDIATES.PHARMACY GENERAL MANAGER Work Phone: [facility] 03-10-2022 09:06-0400 Body temperature 98.91 [degF] Josiah Gould MD Work Phone: [facility] 03-10-2022 09:06-0400 Body weight 102.06 kg Josiah Gould MD Work Phone: [facility] 03-10-2022 09:06-0400 Diastolic blood pressure 80 mm[Hg] Josiah Gould MD Work Phone: [facility] 03-10-2022 09:06-0400 Heart rate 93 /min Josiah Gould MD Work Phone: [facility] 03-10-2022 09:06-0400 Respiratory rate 18 /min Josiah Gould MD Work Phone: [facility] 03-10-2022 09:06-0400 SaO2% (BldA) [Mass fraction] 98 % Josiah Gould MD Work Phone: [facility] 03-10-2022 09:06-0400 Systolic blood pressure 118 mm[Hg] Josiah Gould MD Work Phone: [facility] 02-11-2022 11:55-0400 Body weight 107.5 kg NA Swain PA-C Work Phone: [facility] 02-11-2022 11:55-0400 Diastolic blood pressure 76 mm[Hg] NA Swain PA-C Work Phone: [facility] 02-11-2022 11:55-0400 Heart rate 81 /min NA Swain PA-C Work Phone: [facility] 02-11-2022 11:55-0400 Respiratory rate 16 /min NA Swain PA-C Work Phone: [facility] 02-11-2022 11:55-0400 SaO2% (BldA) [Mass fraction] 98 % NA Swain PA-C Work Phone: [facility] 02-11-2022 11:55-0400 Systolic blood pressure 120 mm[Hg] NA Swain PA-C Work Phone: [facility] 11-10-2021 08:11-0400 Body weight 122.02 kg NA Swain PA-C Work Phone: [facility] 11-10-2021 08:11-0400 Diastolic blood pressure 72 mm[Hg] NA Swain PA-C Work Phone: [facility] 11-10-2021 08:11-0400 Heart rate 74 /min NA Swain PA-C Work Phone: [facility] 11-10-2021 08:11-0400 SaO2% (BldA) [Mass fraction] 99 % NA Swain PA-C Work Phone: [facility] 11-10-2021 08:11-0400 Systolic blood pressure 114 mm[Hg] NA Swain PA-C Work Phone: [facility] 09-28-2021 16:01-0400 Body height 167.6 cm Scooby Pollock MD Work Phone: [facility] 09-28-2021 16:01-0400 Body weight 129.82 kg Scooby Pollock MD Work Phone: [facility] 08-12-2021 10:58-0400 Body height 167.6 cm Fellow Main Work Phone: [facility] 08-12-2021 10:58-0400 Body weight 140.62 kg Fellow Main Work Phone: [facility] 08-11-2021 12:51-0400 Body height 167.[address] Work Phone: [facility] 08-11-2021 12:51-0400 Body weight 140.[address] Work Phone: [facility] 03-02-2017 08:53-0400 BMI (Body Mass Index) 47.98 kg/m2 Julissa Connell MD [facility] 03-02-2017 08:53-0400 Body Temperature 97.5 [degF] Julissa Connell MD [facility] 03-02-2017 08:53-0400 BP Diastolic 70 mm[Hg] Julissa Connell MD [facility] 03-02-2017 08:53-0400 BP Systolic 111 mm[Hg] Julissa Connell MD [facility] 03-02-2017 08:53-0400 Pulse (Heart Rate) 80 /min Julissa Connell MD [facility] 03-02-2017 08:53-0400 Respiratory Rate 16 /min Julissa Connell MD [facility] 03-02-2017 08:53-0400 Weight 138.98 kg Julissa Connell MD [facility] 12-15-2016 11:14-0400 Height 170.18 cm Julissa Connell MD [facility] Encounters Encounter Date Encounter Type Care Provider Facility Start: 03-01-2025 End: 03-01-2025 [facility] Facility[facility] Start: 01-17-2025 End: 01-17-2025 Patient encounter procedure Manuela Isbell MD Work Phone: Endocrinology Comment on above: Hypoglycemia after G I (gastrointestinal) surgery (HCC) (Primary Dx); Status post bariatric surgery; Class 2 severe obesity with serious comorbidity and body mass index (BMI) of 38.0 to 38.9 in adult, unspecified obesity type (HCC); Abdominal pain, unspecified abdominal location Start: 01-17-2025 End: 01-17-2025 ambulatory [facility] Facility:[facility] Start: 12-31-2024 End: 12-31-2024 Admission to same day surgery center Stef Luis RD Work Phone: General Surgery Comment on above: Class 2 obesity (Keyana nagi Dx); Dietary counseling and surveillance; S/P gastric bypass; Impaired intestinal absorption (HCC) Start: 12-31-2024 End: 12-31-2024 Telemedicine consultation with patient Stef Luis RD Work Phone: General Surgery Start: 12-31-2024 End: 12-31-2024 ambulatory STEF LUIS Facility:[facility] Start: 12-26-2024 End: 12-26-2024 Patient encounter procedure Herminio CALLES [facility] Work Phone: Start: 12-26-2024 End: 12-26-[address] Asif Haque MD Work Phone: -[facility] Start: 12-05-2024 End: 12-05-2024 ambulatory DONITA GREEN Facility:[facility] Start: 12-04-2024 End: 12-04-2024 Telephone encounter Manuela Isbell MD Work Phone: [facility] [place] Comment on above: Appointment Start: 12-03-2024 End: 12-03-2024 ambulatory Manuela Isbell MD Work Phone: Endocrinology Comment on above: Potential Research Ollie frost Start: 12-03-2024 End: 12-03-2024 E-mail encounter from caregiver Manuela Isbell MD Work Phone: Endocrinology Start: 11-09-2024 End: 11-09-2024 Emergency department patient visit Dr. Asif Haque MD Work Phone: -Emergency Department Work Phone: Start: 11-07-2024 End: 11-07-2024 Emergency department patient visit Dr. Asif Haque MD Work Phone: -Emergency Department Work Phone: Start: 11-06-2024 End: 11-07-2024 Refill Manuela Isbell MD Work Phone: General Surgery Comment on above: Refill Request Start: 11-05-2024 End: 11-05-2024 Admission to same day surgery center Stef Luis RD Work Phone: General Surgery Comment on above: Class 1 obesity (Keyana nagi Dx); Dietary counseling and surveillance; S/P gastric bypass; Impaired intestinal absorption (HCC) Start: 11-05-2024 End: 11-05-2024 Telemedicine consultation with patient Stef Luis RD Work Phone: General Surgery Start: 11-05-2024 End: 11-05-2024 ambulatory STEF LUIS Facility:[facility] Start: 10-28-2024 End: 10-29-2024 ambulatory Manuela Isbell MD Work Phone: Endocrinology Comment on above: Struggling with my b lood sugars Start: 09-21-2024 End: 09-21-2024 Patient encounter procedure [facility] Work Phone: Start: 09-21-2024 End: 09-21-[address] Asif Haque MD Work Phone: [facility] Work Phone: Start: 08-21-2024 End: 09-19-2024 ambulatory Manuela Isbell MD Work Phone: Endocrinology Comment on above: Medicine question Start: 08-10-2024 End: 10-10-2024 Follow-up encounter Manuela Isbell MD Work Phone: Endocrinology Start: 08-09-2024 End: 08-09-2024 ambulatory MANUELA ISBELL Facility:[facility] Start: 08-09-2024 End: 08-09-2024 Patient encounter [...] absorption Start: 07-13-2024 End: 07-13-2024 ambulatory STEF LUIS Facility:[facility] Start: 07-13-2024 End: 07-13-2024 Telemedicine consultation with patient Stef Luis RD Work Phone: General Surgery Start: 07-13-2024 End: 07-13-2024 ambulatory MANUELA ISBELL Facility:[facility] Start: 07-09-2024 End: 07-09-2024 Follow-up encounter Manuela Isbell MD Work Phone: General Surgery Comment on above: Hypoglycemia after G I (gastrointestinal) surgery (Primary Dx) Start: 07-09-2024 End: 07-09-2024 Telephone encounter Manuela Isbell MD Work Phone: Endocrinology Comment on above: Appointment (Called patient and left voicemail to notify of scheduled appointment) Start: 07-06-2024 End: 07-06-2024 ambulatory MANUELA ISBELL Facility:[facility] Start: 07-04-2024 End: 07-04-2024 Admission to same day surgery center Manuela Isbell MD Work Phone: General Surgery Comment on above: Hypoglycemia after G I (gastrointestinal) surgery (Primary Dx) Start: 07-04-2024 End: 07-04-2024 ambulatory [facility] Facility:[facility] Start: 07-04-2024 End: 07-04-2024 Telemedicine consultation with patient Manuela Isbell MD Work Phone: General Surgery Start: 05-30-2024 End: 05-30-[address] Felice Centeno MD -Ultrasound [facility] Work Phone: Start: 05-29-2024 End: 05-29-2024 Admission to same day surgery center Ping Ansari APRN.PHARMACY GENERAL MANAGER Work Phone: General Surgery BMI Comment on above: S/P gastric bypass ( Primary Dx) Start: 05-29-2024 End: 05-29-2024 Telemedicine consultation with patient Ping Ansari APRN.PHARMACY GENERAL MANAGER Work Phone: General Surgery BMI Start: 05-29-2024 End: 05-30-2024 [facility] Start: 05-21-2024 Encounter for gynecological examination (general) (routine) with abnormal findings Julissa Connell [facility] Start: 05-21-2024 End: 05-21-2024 ambulatory [facility] Facility:[facility] Start: 05-21-2024 End: 05-21-2024 ambulatory [facility] Facility:[facility] Start: 04-16-2024 End: 04-16-2024 ambulatory Herminio Byrnes Facility:[facility] Start: 04-09-2024 End: 04-09-2024 Admission to same day surgery center Stef Luis RD Work Phone: General Surgery Comment on above: Class 1 obesity (Keyana nagi Dx); Dietary counseling and surveillance; S/P gastric bypass; Impaired intestinal absorption Start: 04-09-2024 End: 04-09-2024 ambulatory STEF TOBY Facility:[facility] Start: 04-09-2024 End: 04-09-2024 Telemedicine consultation with patient Stef Dimandrae CHERY Work Phone: General Surgery Start: 03-14-2024 End: 03-14-2024 ambulatory Julissa Connell Facility:[facility] Start: 03-08-2024 End: 03-08-2024 ambulatory [facility] Facility:[facility] Start: 03-06-2024 End: 03-06-2024 Patient encounter procedure Ike Carmichael SUPERVISOR INTERMEDIATES.PHARMACY GENERAL MANAGER Work Phone: [facility] Comment on above: Bacterial sinusitis (Primary Dx) Start: 02-21-2024 End: 02-21-2024 ambulatory [facility] Facility:[facility] Start: 02-20-2024 End: 02-20-2024 Admission to same day surgery center Ping Prince APRN.PHARMACY GENERAL MANAGER Work Phone: General Surgery Comment on above: Class 1 obesity (Keyana nagi Dx) Start: 02-20-2024 End: 02-20-2024 Telemedicine consultation with patient Ping Jonesrickie WESLEY.PHARMACY GENERAL MANAGER Work Phone: General Surgery Start: 02-14-2024 End: 02-14-2024 Patient encounter procedure Donita Green MD Work Phone: Endocrinology Comment on above: Collin's thyroidi tis (Primary Dx); Thyroid nodule Start: 01-12-2024 End: 01-12-2024 Orders Only Ping Prince APRN.PHARMACY GENERAL MANAGER Work Phone: General Surgery BMI Comment on above: S/P gastric bypass ( Primary Dx) Start: 01-06-2024 End: 01-06-2024 Admission to same day surgery center Stef Luis RD Work Phone: General Surgery Comment on above: Class 1 obesity (Keyana nagi Dx); Dietary counseling and surveillance; S/P gastric bypass; Impaired intestinal absorption Start: 01-06-2024 End: 01-06-2024 Telemedicine consultation with patient Stef Luis RD Work Phone: General Surgery Start: 12-19-2023 End: 12-19-2023 Subsequent hospital visit by physician [facility] Work Phone: Radiology Comment on above: Thyroid nodule [E04. 1] Start: 11-21-2023 End: 11-21-2023 Office outpatient visit 25 minutes Kiera Bragg APRN.CNP Work Phone: [facility] Comment on above: Tinea cruris (Primar y Dx); Migraine with aura, not intractable, without status migrainosus; Gastroesophageal reflux disease without esophagitis; Other chronic pain Start: 10-20-2023 End: 10-20-2023 Admission to same day surgery center Ping Prince APRN.CNP Work Phone: General Surgery BMI Comment on above: Class 1 obesity (Keyana nagi Dx) Start: 10-20-2023 End: 10-20-2023 Telemedicine consultation with patient Ping Jonesrickie POMPA Work Phone: General Surgery BMI Start: 10-07-2023 End: 10-07-2023 Admission to same day surgery center Stef Luis RD Work Phone: General Surgery Comment on above: Class 1 obesity (Keyana nagi Dx); Dietary counseling and surveillance; S/P gastric bypass; Impaired intestinal absorption Start: 10-07-2023 End: 10-07-2023 Telemedicine consultation with patient Stef Dimandrae CHERY Work Phone: General Surgery Start: 08-15-2023 End: 08-15-2023 Patient encounter procedure Donita Green MD Work Phone: Endocrinology Comment on above: Thyroid nodule (Prim swathi Dx); Collin's thyroiditis Start: 07-14-2023 End: 07-14-2023 ambulatory Ping Prince MARYJANE.PHARMACY GENERAL MANAGER Work Phone: General Surgery BMI Comment on above: S/P gastric bypass ( Primary Dx); Collin's thyroiditis Start: 07-14-2023 End: 07-14-2023 Telemedicine consultation with patient Ping Prince MARYJANE.PHARMACY GENERAL MANAGER Work Phone: [facility] Start: 07-07-2023 End: 07-07-[address] Work Phone: General Surgery Comment on above: Class 3 obesity (HCC ) (Primary Dx); Dietary counseling and surveillance; S/P gastric bypass Start: 07-07-2023 End: 07-07-2023 Telemedicine consultation with patient Stef Luis RD Work Phone: [facility] Start: 06-21-2023 End: 06-21-[address] Asif Haque Work Phone: [facility] Work Phone: Start: 06-21-2023 End: 06-21-[address] [facility]: Start: 05-13-2023 End: 05-13-[address] Asif Haque Work Phone: [facility] Work Phone: Start: 05-10-2023 End: 05-10-[address] Asif Haque Work Phone: [facility] Endocrinology Work Phone: Start: 03-09-2023 End: 03-09-[address] As[facility]que [facility]: Start: 03-09-2023 End: 03-09-[address] Asif Haque Work Phone: [facility] Work Phone: Start: 02-04-2023 Telephone encounter Phyllis rogers MD Work Phone: General Surgery Comment on above: Returning Patient's Call Start: 12-23-2022 Telephone encounter Debra Swain PA-C Work Phone: [facility] Start: 11-22-2022 End: 11-22-2022 Subsequent hospital visit by physician [facility] Work Phone: Radiology Comment on above: Thyromegaly [E01.0] Start: 11-18-2022 End: 11-18-2022 Patient encounter procedure Debra Swain PA-C Work Phone: [facility] Comment on above: Panic disorder (Prim swathi Dx); Thyromegaly; Morbid obesity (HCC); Gastroesophageal reflux disease, unspecified whether esophagitis present Start: 09-21-2022 End: 09-21-2022 Subsequent hospital visit by physician [facility] [place] Work Phone: Radiology Comment on above: Right flank pain [R1 0.9] Start: 09-21-2022 End: 09-21-2022 Patient encounter procedure Caroline Miller PA-C Work Phone: [facility] Comment on above: RUQ pain (Primary Dx ); Right flank pain; Nausea; Epigastric pain; Acute constipation Start: 09-20-2022 End: 09-20-2022 Emergency department patient visit Dr. Asif Haque Work Phone: [facility] Start: 07-19-2022 End: 07-19-[address] Asif Haque Work Phone: [facility] Start: 06-06-2022 ambulatory Debra sanchez PA-C Work Phone: [facility] Comment on above: Groin cyst flair Start: 05-14-2022 End: 05-14-2022 Patient encounter procedure Debra Rm Swain PA-C Work Phone: [facility] [place] Comment on above: S/P bariatric surger y (Primary Dx); Hair loss; Cystic acne; Influenza A; Loss of libido; Prediabetes; Screening for lipid disorders Start: 04-22-2022 ambulatory Debra Rm sanchez PA-C Work Phone: [facility] Comment on above: vertigo Start: 04-22-2022 Telephone encounter Debra Rm Swain PA-C Work Phone: [facility] [place] Comment on above: Results Start: 04-21-2022 End: 04-21-2022 Office outpatient visit 15 minutes Nettie Canales APRN.CNP Work Phone: [facility] [place] Comment on above: Upper respiratory sy mptom (Primary Dx) Start: 03-10-2022 End: 03-10-2022 Patient encounter procedure Josiah Gould MD Work Phone: [place] Comment on above: Acute non-recurrent sinusitis, unspecified location (Primary Dx) Start: 02-11-2022 End: 02-11-2022 Patient encounter procedure Debra Rm Wiliam WILLOUGHBY Work Phone: [facility] Comment on above: Iron deficiency anem ia, unspecified iron deficiency anemia type (Primary Dx); Folic acid deficiency; S/P bariatric surgery; Hair loss; Fatigue, unspecified type; Leg cramps; Cystic acne; Cellulitis of skin Start: 12-02-2021 End: 12-02-2021 Admission to same day surgery center Asia Eduardo PhD Work Phone: General Surgery Comment on above: Psychological factor s affecting medical condition (Primary Dx); Postgastric surgery syndrome Start: 12-02-2021 End: 12-02-2021 Telemedicine consultation with patient Asia Eduardo PhD Work Phone: [facility] Start: 11-14-2021 Telephone encounter Debra Rm Swain PA-C Work Phone: [facility] Comment on above: Results; Orders Start: 11-11-2021 Telephone encounter Debra Rm Swain PA-C Work Phone: [facility] Comment on above: Opened In Error Start: 11-10-2021 End: 11-10-2021 Patient encounter procedure Debra Abdalla Wiliam WILLOUGHBY Work Phone: [facility] Comment on above: Hair loss (Primary D x); Fatigue, unspecified type; S/P bariatric surgery; Leg cramps; Cystic acne Start: 09-29-2021 End: 09-29-2021 ambulatory Scooby Pollock MD Work Phone: General Surgery Comment on above: NO SHOW (Primary Dx) Start: 09-29-2021 End: 09-29-2021 Telemedicine consultation with patient Scooby Pollock MD Work Phone: [facility] Start: 08-12-2021 End: 08-12-2021 ambulatory Fellow Colton Main Work Phone: General Surgery Comment on above: Body mass index 50.0 -59.9, adult (HCC) (Primary Dx); S/P gastric bypass Start: 08-12-2021 End: 08-12-2021 Telemedicine consultation with patient Fellow Colton Main Work Phone: [facility] Start: 08-11-2021 End: 08-11-[address] Work Phone: General Surgery Comment on above: Reassessment; Patien t Education Start: 07-17-2018 Patient encounter procedure CARLOS TURNER [facility] Start: 06-15-2018 End: 06-15-2018 Patient encounter procedure JULISSA CONNELL [facility] Start: 05-22-2018 Patient encounter Wells [facility] Start: 04-17-2018 Patient encounter Wells [facility] Start: 04-13-2018 End: 04-13-2018 Patient encounter procedure OWEN GOETZ [facility] Start: 03-20-2018 Patient encounter [facility] Start: 03-13-2018 Patient encounter procedure CARLOS TURNER [facility] Start: 02-13-2018 Patient encounter Kenneth Ortiz [facility] Start: 01-31-2018 Patient encounter procedure LARRY RAMAN [facility] Start: 01-19-2018 End: 01-19-2018 Patient encounter procedure CELESTE PISANO [facility] Start: 01-16-2018 Patient encounter Kenneth Ortiz [facility] Start: 12-27-2017 Patient encounter Masood Stock [facility] Start: 12-23-2017 Patient encounter Ranjit Webstermenorm [facility] Start: 12-19-2017 Patient encounter Sweetie Lisa [facility] Start: 12-16-2017 Patient encounter Ranjit Lainezwest bendnorm [facility] Start: 12-12-2017 Patient encounter Kenneth Ortiz [facility] Start: 11-14-2017 Patient encounter Ranjit [facility] Start: 10-13-2017 Patient encounter Masood Stock [facility] Start: 10-13-2017 Patient encounter Masood Stock [facility] Start: 08-11-2017 End: 08-11-2017 Emergency department patient visit VALDEZ CarlsonMichelle NAHIDRENETTA Facility:B Procedures Date Procedure Procedure Detail Performing Clinician Start: 11-09-2024 Urnls dip stick/tabl et reagent auto microscopy Dr. Asif Haque MD Work Phone: Start: 11-09-2024 Computed tomography of abdomen and pelvis with intravenous contrast Dr. Asif Haque MD Work Phone: Start: 11-09-[address] Asif Haque MD Work Phone: Start: 11-07-2024 Computed tomography of abdomen and pelvis with intravenous contrast Dr. Asif Haque MD Work Phone: Start: 11-07-[address] Asif Haque MD Work Phone: Start: 08-09-2024 Hemoglobin A1c/Hemoglobin.total in Blood Manuela Isbell MD Work Phone: Start: 05-30-2024 US scan of thyroid Dr. Asif Haque MD Work Phone: Start: 11-22-2022 Us soft tissue head & neck real time imge simim M Rm Swain PA-C Work Phone: Start: 09-21-2022 Radiologic exam abdo men 1 view Caroline Miller PA-C Work Phone: Start: 09-20-2022 CT of abdomen and pe lvis without contrast Dr. Asif Haque Work Phone: Start: 12-02-2021 Adult depression scr eening assessment Asiaesperanza Wadsworthon PhD Work Phone: Start: 07-26-2021 Adult depression scr eening assessment Summer Bender RD Work Phone: Start: 03-02-2017 End: 03-02-2017 nonstress test Julissa echeverria MD Work Phone: Start: 03-02-2017 End: 03-02-2017 Us uterus limited 1/> fetuses Julissa Connell MD Work Phone: Start: 01-12-2017 End: 02-15-2017 *CUUID - Urine MOHAN Culture - Identificatn 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 Work Phone: Start: 12-29-2016 End: 02-15-2017 Us preg uterus after 1st trimest 1/ gestation 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 Work Phone: Start: 12-21-2016 End: 12-22-2016 Chiropractic manipulative tx spinal 1-2 regions Juana Palafox DC Work Phone: Plan of Treatment Date Care Activity Detail Author Start: 05-06-2025 HPV TESTING HPV TESTING [facility] Start: 05-06-2025 PAP TESTING PAP TESTING [facility] Start: 05-06-2025 Screening for malign ant neoplasm of cervix [facility] Start: 04-01-2025 End: 04-01-2025 Follow-up encounter 04/01/2025 9:30 AM [facility] [address] [place], [place] [id number] Stef [address] [place] [address] follow up post op complications General Surgery Comment on above: follow up post op co mplications Start: 01-17-2025 End: 04-18-2025 25-hydroxyvitamin D3 [Mass/volume] in Serum or Plasma VITAMIN D 25 HYDROXY Lab Routine Status post bariatric surgery Expected: 01/17/2025, Expires: 04/18/2025 [facility] Comment on above: Expected: 01/17/2025 , Expires: 04/18/2025 Start: 01-17-2025 End: 04-18-2025 CBC panel - Blood by Automated count COMPLETE BLOOD COUNT Lab Routine Status post bariatric surgery Expected: 01/17/2025, Expires: 04/18/2025 [facility] Comment on above: Expected: 01/17/2025 , Expires: 04/18/2025 Start: 01-17-2025 End: 04-18-2025 Cobalamin (Vitamin B12) [Mass/volume] in Serum or Plasma VITAMIN B12 Lab Routine Status post bariatric surgery Expected: 01/17/2025, Expires: 04/18/2025 [facility] Comment on above: Expected: 01/17/2025 , Expires: 04/18/2025 Start: 01-17-2025 End: 04-18-2025 Comprehensive metabolic 2000 panel - Serum or Plasma COMPREHENSIVE METABOLIC PANEL Lab Routine Status post bariatric surgery Expected: 01/17/2025, Expires: 04/18/2025 [facility] Comment on above: Expected: 01/17/2025 , Expires: 04/18/2025 Start: 01-17-2025 End: 04-18-2025 Ferritin [Mass/volume] in Serum or Plasma FERRITIN Lab Routine Status post bariatric surgery Expected: 01/17/2025, Expires: 04/18/2025 [facility] Comment on above: Expected: 01/17/2025 , Expires: 04/18/2025 Start: 01-17-2025 End: 04-18-2025 Folate [Mass/volume] in Serum or Plasma FOLATE, SERUM Lab Routine Status post bariatric surgery Expected: 01/17/2025, Expires: 04/18/2025 [facility] Comment on above: Expected: 01/17/2025 , Expires: 04/18/2025 Start: 01-17-2025 End: 04-18-2025 Iron and Iron binding capacity panel - Serum or Plasma IRON AND TIBC Lab Routine Status post bariatric surgery Expected: 01/17/2025, Expires: 04/18/2025 [facility] Comment on above: Expected: 01/17/2025 , Expires: 04/18/2025 Start: 01-17-2025 End: 04-18-2025 Parathyrin.intact [Mass/volume] in Serum or Plasma PTH INTACT Lab Routine Status post bariatric surgery Expected: 01/17/2025, Expires: 04/18/2025 [facility] Comment on above: Expected: 01/17/2025 , Expires: 04/18/2025 Start: 01-17-2025 End: 04-18-2025 VITAMIN B1 (THIAMINE), WHOLE BLOOD VITAMIN B1 (THIAMINE), WHOLE BLOOD Lab Routine Status post bariatric surgery Expected: 01/17/2025, Expires: 04/18/2025 [facility] Work Phone: Comment on above: Expected: 01/17/2025 , Expires: 04/18/2025 Start: 01-17-2025 End: 01-17-2025 Patient encounter procedure 01/17/2025 10:40 AM EDT Office Visit Endocrinology [address] [place] [address] Manuela Isbell MD [address] [place] [address] 3 month f/u-ok to split spot per [facility] Comment on above: 3 month f/u-ok to sp lit spot per [facility] Start: 01-14-2025 End: 01-14-2025 Patient encounter procedure 01/14/2025 9:20 AM EDT Office Visit Endocrinology [address] [place] [phone] Donita Green MD [address] [place] [address] 11 month f/u- Thyroid US review Endocrinology Comment on above: 11 month f/u- Thyroi d US review Start: 01-07-2025 Influenza vaccination C [facility] Start: 12-31-2024 End: 12-31-2024 Follow-up encounter 12/31/2024 9:30 AM EDT [facility] General Surgery [address] [place] [address] [place] [address] follow up post op hypoglycemia General Surgery Comment on above: follow up post op hy poglycemia Start: 12-24-2024 End: 12-24-2024 Patient encounter procedure 12/24/2024 1:00 PM EDT Appointment Radiology [address] [place], [place] [phone] Thyroid nodule [E04.1] Radiology Comment on above: Thyroid nodule [E04. 1] Start: 12-20-2024 End: 12-20-2024 Patient encounter procedure 12/20/2024 11:20 AM EDT Office Visit Endocrinology [address] [place] [phone] Manuela Isbell MD [address] [place] [address] 3 month f/u Endocrinology Comment on above: 3 month f/u Start: 12-18-2024 End: 03-19-2025 Thyrotropin [Units/volume] in Serum or Plasma THYROID STIMULATING HORMONE Lab Routine Thyroid nodule Expected: 12/18/2024, Expires: 03/19/2025 [facility] Comment on above: Expected: 12/18/2024 , Expires: 03/19/2025 Start: 12-18-2024 End: 03-15-2025 US Thyroid gland US THYROID/PARATHYROID Radiology Routine Thyroid nodule Expected: 12/18/2024, Expires: 03/15/2025 [facility] Work Phone: Comment on above: Expected: 12/18/2024 , Expires: 03/15/2025 Start: 12-05-2024 End: 12-05-2024 ambulatory 12/05/2024 7:00 AM EDT Results Only [facility] [address] [place] [address] [facility] Start: 11-09-2024 [facility] Start: 11-07-2024 [facility] Start: 11-07-2024 Enteric precautions [facility] Start: 11-05-2024 End: 11-05-2024 Follow-up encounter 11/05/2024 9:30 AM EDT [facility] Surgery [address] [phone] [address] [place] [id number] follow up post op aom/hypoglycemia General Surgery Comment on above: follow up post op ao m/hypoglycemia Start: 10-12-2024 End: 10-12-2024 Follow-up encounter 10/12/2024 1:30 PM EDT [facility] [address] [place], [place] [phone] Stef Luis [address] [place] [phone] follow up post op aom/hypoglycemia General Surgery Comment on above: follow up post op ao m/hypoglycemia Start: 08-09-2024 End: 08-09-2024 Patient encounter procedure 08/09/2024 10:00 AM EDT Office Visit Endocrinology [address] [place] [address] Manuela Isbell MD [address] [phone] please schedule this patient to be seen in my x building clinic in about a month from now? Endocrinology Comment on above: please schedule this patient to be seen in my x building clinic in about a month from now? Start: 07-13-2024 End: 07-13-2024 Follow-up encounter 07/13/2024 1:30 PM EST [facility] [address] [phone] [place] [address] follow up post op aom General Surgery Comment on above: follow up post op ao m Start: 07-09-2024 End: 10-08-2024 B-HYDROXYBUTYRATE B-HYDROXYBUTYRATE Lab Routine Hypoglycemia after GI (gastrointestinal) surgery Expected: 07/09/2024, Expires: 10/08/2024 [facility] Work Phone: Comment on above: Expected: 07/09/2024 , Expires: 10/08/2024 Start: 07-09-2024 End: 10-08-2024 C peptide [Mass/volume] in Serum or Plasma C-PEPTIDE BLD Lab Routine Hypoglycemia after GI (gastrointestinal) surgery Expected: 07/09/2024, Expires: 10/08/2024 [facility] Comment on above: Expected: 07/09/2024 , Expires: 10/08/2024 Start: 07-09-2024 End: 10-08-2024 Fasting glucose [Mass/volume] in Serum or Plasma GLUCOSE, FASTING Lab Routine Hypoglycemia after GI (gastrointestinal) surgery Expected: 07/09/2024, Expires: 10/08/2024 [facility] Comment on above: Expected: 07/09/2024 , Expires: 10/08/2024 Start: 07-09-2024 End: 10-08-2024 Insulin [Units/volume] in Serum or Plasma INSULIN, TOTAL, SERUM Lab Routine Hypoglycemia after GI (gastrointestinal) surgery Expected: 07/09/2024, Expires: 10/08/2024 [facility] Comment on above: Expected: 07/09/2024 , Expires: 10/08/2024 Start: 07-09-2024 End: 07-09-2024 Follow-up encounter 07/09/2024 1:00 PM EST [facility] General Surgery [address] [place] [address] Stef Luis, MIRI [address] [place], [place] [phone] follow up post op aom General Surgery Comment on above: follow up post op ao m Start: 07-06-2024 End: 07-06-2024 ambulatory 07/06/2024 7:00 AM EST Results Only [facility] [place] [facility] Laboratory [address] [place] [address] [facility] Start: 07-04-2024 End: 07-04-2024 Admission to same day surgery center 07/04/2024 3:15 PM EST [facility] [address] [phone] Manuela Isbell MD [address] [place] [address] reactive hypoglycemia General Surgery Comment on above: reactive hypoglycemi a Start: 07-04-2024 End: 10-03-2024 B-HYDROXYBUTYRATE B-HYDROXYBUTYRATE Lab Routine Hypoglycemia after GI (gastrointestinal) surgery Expected: 07/04/2024, Expires: 10/03/2024 [facility] Comment on above: Expected: 07/04/2024 , Expires: 10/03/2024 Start: 07-04-2024 End: 10-03-2024 C peptide [Mass/volume] in Serum or Plasma C-PEPTIDE BLD Lab Routine Hypoglycemia after GI (gastrointestinal) surgery Expected: 07/04/2024, Expires: 10/03/2024 [facility] Comment on above: Expected: 07/04/2024 , Expires: 10/03/2024 Start: 07-04-2024 End: 10-03-2024 Insulin [Units/volume] in Serum or Plasma INSULIN, TOTAL, SERUM Lab Routine Hypoglycemia after GI (gastrointestinal) surgery Expected: 07/04/2024, Expires: 10/03/2024 [facility] Work Phone: Comment on above: Expected: 07/04/2024 , Expires: 10/03/2024 Start: 03-30-2024 End: 03-30-2024 Follow-up encounter 03/30/2024 3:00 PM EST [facility] [address] [place] [address] [place] [address] follow up post op aom General Surgery Comment on above: follow up post op ao m Start: 03-23-2024 End: 03-23-2024 Follow-up encounter 03/23/2024 3:00 PM EST [facility] Surgery [address] [place] [address] Stef Luis, RD [address] [place] [address] follow up post op aom General Surgery Comment on above: follow up post op ao m Start: 02-20-2024 End: 02-20-2024 Admission to same day surgery center 02/20/2024 7:00 AM EDT [facility] [address] [place] [address] Ping Prince APRN.PHARMACY GENERAL MANAGER [address] [place] [address] weight mangement General Surgery Comment on above: weight mangement Start: 02-14-2024 End: 02-14-2024 Patient encounter procedure 02/14/2024 9:20 AM EDT Office Visit Endocrinology [address] [place] [address] Donita Green MD [address] [place] [address] 6 MTH F/U Endocrinology Comment on above: 6 MTH F/U Start: 01-12-2024 End: 04-12-2024 25-hydroxyvitamin D3 [Mass/volume] in Serum or Plasma VITAMIN D 25 HYDROXY Lab Routine S/P gastric bypass Expected: 01/12/2024, Expires: 04/12/2024 [facility] Comment on above: Expected: 01/12/2024 , Expires: 04/12/2024 Start: 01-12-2024 End: 04-12-2024 CBC W Auto Differential panel - Blood COMPLETE BLOOD COUNT AND DIFFERENTIAL Lab Routine S/P gastric bypass Expected: 01/12/2024, Expires: 04/12/2024 [facility] Work Phone: Comment on above: Expected: 01/12/2024 , Expires: 04/12/2024 Start: 01-12-2024 End: 04-12-2024 Cobalamin (Vitamin B12) [Mass/volume] in Serum or Plasma VITAMIN B12 Lab Routine S/P gastric bypass Expected: 01/12/2024, Expires: 04/12/2024 [facility] Comment on above: Expected: 01/12/2024 , Expires: 04/12/2024 Start: 01-12-2024 End: 04-12-2024 Comprehensive metabolic 2000 panel - Serum or Plasma COMPREHENSIVE METABOLIC PANEL Lab Routine S/P gastric bypass Expected: 01/12/2024, Expires: 04/12/2024 [facility] Comment on above: Expected: 01/12/2024 , Expires: 04/12/2024 Start: 01-12-2024 End: 04-12-2024 Ferritin [Mass/volume] in Serum or Plasma FERRITIN Lab Routine S/P gastric bypass Expected: 01/12/2024, Expires: 04/12/2024 [facility] Comment on above: Expected: 01/12/2024 , Expires: 04/12/2024 Start: 01-12-2024 End: 04-12-2024 Folate [Mass/volume] in Serum or Plasma FOLATE, SERUM Lab Routine S/P gastric bypass Expected: 01/12/2024, Expires: 04/12/2024 [facility] Comment on above: Expected: 01/12/2024 , Expires: 04/12/2024 Start: 01-12-2024 End: 04-12-2024 Hemoglobin A1c in Blood HEMOGLOBIN A1C Lab Routine S/P gastric bypass Expected: 01/12/2024, Expires: 04/12/2024 [facility] Comment on above: Expected: 01/12/2024 , Expires: 04/12/2024 Start: 01-12-2024 End: 04-12-2024 Iron and Iron binding capacity panel - Serum or Plasma IRON AND TIBC Lab Routine S/P gastric bypass Expected: 01/12/2024, Expires: 04/12/2024 [facility] Comment on above: Expected: 01/12/2024 , Expires: 04/12/2024 Start: 01-12-2024 End: 04-12-2024 Lipid 1996 panel - Serum or Plasma LIPID PANEL BASIC Lab Routine S/P gastric bypass Expected: 01/12/2024, Expires: 04/12/2024 [facility] Comment on above: Expected: 01/12/2024 , Expires: 04/12/2024 Start: 01-12-2024 End: 04-12-2024 Thyrotropin [Units/volume] in Serum or Plasma THYROID STIMULATING HORMONE Lab Routine S/P gastric bypass Expected: 01/12/2024, Expires: 04/12/2024 [facility] Comment on above: Expected: 01/12/2024 , Expires: 04/12/2024 Start: 01-12-2024 End: 04-12-2024 VITAMIN B1 (THIAMINE), WHOLE BLOOD VITAMIN B1 (THIAMINE), WHOLE BLOOD Lab Routine S/P gastric bypass Expected: 01/12/2024, Expires: 04/12/2024 [facility] Comment on above: Expected: 01/12/2024 , Expires: 04/12/2024 Start: 01-08-2024 Covid-19 Vaccine ( season) Covid-19 Vaccine ( season) [facility] Start: 01-08-2024 Covid-19 Vaccine ( season) Covid-19 Vaccine ( season) [facility] Start: 01-08-2024 Influenza vaccination C [facility] Start: 01-06-2024 End: 01-06-2024 Admission to same day surgery center 01/06/2024 3:00 PM EDT [facility] General Surgery [address] [place] [address] Stef Luis, MIRI [address] [place], [place] [id number] post op rygb aom General Surgery Comment on above: post op rygb aom Start: 12-19-2023 End: 12-19-2023 Patient encounter procedure 12/19/2023 9:15 AM EDT Appointment Radiology [address] [place], [place] [id number] THYROID ULTRASOUND Radiology Comment on above: THYROID ULTRASOUND Start: 11-21-2023 End: 11-21-2023 Patient encounter procedure 11/21/2023 9:00 AM EDT Office Visit Family Medicine [facility] [address] [place] [address] Debra Swain PA-C [address] [place] [address] annual exam Family Medicine [place] Comment on above: annual exam Start: 10-20-2023 End: 10-20-2023 Follow-up encounter 10/20/2023 11:30 AM EDT [facility] General Surgery BMI [address] [place] [address] Ping Prince APRN.PHARMACY GENERAL MANAGER [address] [place] [address] 3 month follow up per [facility] General Surgery BMI Comment on above: 3 month follow up pe r bulow Start: 09-24-2023 COVID-19 VACCINE (#1) COVID-19 VACCI NE (#1) [facility] Comment on above: Postponed from 10/22 (Current Illness) Start: 09-24-2023 HEPATITIS B (1 of 3 - 3-dose series) HEPATITIS B (1 of 3 - 3-dose series) [facility] Comment on above: Postponed from 04/23 (Current Illness) Start: 09-24-2023 Hepatitis B Vaccine (1 of 3 - 19+ 3-dose series) Hepatitis B Vaccine (1 of 3 - 19+ 3-dose series) [facility] Comment on above: Postponed from 04/23 (Current Illness) Start: 09-24-2023 Hepatitis B Vaccine (1 of 3 - 3-dose series) Hepatitis B Vaccine (1 of 3 - 3-dose series) [facility] Comment on above: Postponed from 04/23 (Current Illness) Start: 09-24-2023 Urine microalbumin profile [facility] Comment on above: Postponed from 12/07 (Current Illness) Start: 06-21-2023 Zinc [Mass/volume] i n Serum or Plasma [facility] Start: 05-09-2023 Behavioral Health Screening Behavioral Health Screening [facility] Start: 05-09-2023 Depression Assessment Depression Ass essment [facility] Start: 05-08-2023 DEPRESSION ASSESSMENT DEPRESSION ASS [facility] Comment on above: Postponed from 05/09 (Declined at this time) Start: 01-07-2023 Covid-19 Vaccine () Covid-19 Vaccine () [facility] Start: 01-07-2023 Influenza vaccination [facility] Start: 12-02-2022 Adult depression screening assessment DEPRESSION SCREENING [facility] Start: 11-18-2022 End: 01-18-2023 Thyrotropin [Units/volume] in Serum or Plasma [facility] Work Phone: Comment on above: Expected: 11/18/2022 , Expires: 01/18/2023 Start: 09-21-2022 End: 11-21-2022 Amylase [Enzymatic activity/volume] in Serum or Plasma [facility] Work Phone: Comment on above: Expected: 09/21/2022 , Expires: 11/21/2022 Start: 09-21-2022 End: 11-21-2022 Comprehensive metabolic 2000 panel - Serum or Plasma [facility] Work Phone: Comment on above: Expected: 09/21/2022 , Expires: 11/21/2022 Start: 09-21-2022 End: 11-21-2022 Lipase [Enzymatic activity/volume] in Serum or Plasma [facility] Work Phone: Comment on above: Expected: 09/21/2022 , Expires: 11/21/2022 Start: 09-20-2022 [facility] Start: 07-26-2022 Adult depression screening assessment DEPRESSION SCREENING [facility] Start: 05-09-2022 DEPRESSION ASSESSMENT [facility] Start: 03-10-2022 End: 03-24-2022 SARS-CoV-2 (COVID-19) RNA [Presence] in Respiratory specimen by JATIN with probe detection 2019 CORONAVIRUS Microbiology Routine Acute non-recurrent sinusitis, unspecified location Expected: 03/10/2022, Expires: 03/24/2022 [facility] Work Phone: Comment on above: Expected: 03/10/2022 , Expires: 03/24/2022 Start: 02-14-2022 End: 04-16-2022 Ferritin [Mass/volume] in Serum or Plasma FERRITIN BLD Lab Routine Iron deficiency anemia, unspecified iron deficiency anemia type S/P bariatric surgery Expected: 02/14/2022, Expires: 04/16/2022 [facility] Work Phone: Comment on above: Expected: 02/14/2022 , Expires: 04/16/2022 Start: 02-14-2022 End: 04-16-2022 Folate [Mass/volume] in Serum or Plasma FOLATE SERUM Lab Routine Folic acid deficiency S/P bariatric surgery Expected: 02/14/2022, Expires: 04/16/2022 [facility] Work Phone: Comment on above: Expected: 02/14/2022 , Expires: 04/16/2022 Start: 01-07-2022 Influenza vaccination C [facility] Start: 11-14-2021 End: 01-14-2022 Iron and Iron binding capacity panel - Serum or Plasma IRON + TIBC Lab Routine Iron deficiency anemia, unspecified iron deficiency anemia type S/P bariatric surgery Expected: 11/14/2021, Expires: 01/14/2022 [facility] Work Phone: Comment on above: Expected: 11/14/2021 , Expires: 01/14/2022 Start: 11-10-2021 End: 01-10-2022 Basic metabolic 2000 panel - Serum or Plasma [facility] Work Phone: Comment on above: Expected: 11/10/2021 , Expires: 01/10/2022 Start: 11-10-2021 End: 01-10-2022 CBC W Auto Differential panel - Blood [facility] Work Phone: Comment on above: Expected: 11/10/2021 , Expires: 01/10/2022 Start: 11-10-2021 End: 01-10-2022 Cobalamin (Vitamin B12) [Mass/volume] in Serum or Plasma [facility] Work Phone: Comment on above: Expected: 11/10/2021 , Expires: 01/10/2022 Start: 11-10-2021 End: 01-10-2022 Ferritin [Mass/volume] in Serum or Plasma [facility] Work Phone: Comment on above: Expected: 11/10/2021 , Expires: 01/10/2022 Start: 11-10-2021 End: 01-10-2022 Folate [Mass/volume] in Serum or Plasma [facility] Work Phone: Comment on above: Expected: 11/10/2021 , Expires: 01/10/2022 Start: 11-10-2021 End: 01-10-2022 Iron and Iron binding capacity panel - Serum or Plasma [facility] Work Phone: Comment on above: Expected: 11/10/2021 , Expires: 01/10/2022 Start: 11-10-2021 End: 01-10-2022 Magnesium [Mass/volume] in Serum or Plasma [facility] Work Phone: Comment on above: Expected: 11/10/2021 , Expires: 01/10/2022 Start: 11-10-2021 End: 01-10-2022 Thyrotropin [Units/volume] in Serum or Plasma [facility] Work Phone: Comment on above: Expected: 11/10/2021 , Expires: 01/10/2022 Start: 05-09-2021 DEPRESSION ASSESSMENT DEPRESSION ASS [facility] Start: 04-18-2017 End: 04-18-2017 Appointment Appointment [facility] Work Phone: Start: 03-11-2017 End: 03-11-[address] [facility] Start: 02-10-2017 End: 02-10-2017 *CUUID - Urine MOHAN Culture - Identificatn *CUUID - Urine MOHAN Culture - Identificatn [facility] Start: 02-10-2017 End: 02-10-2017 Streptococcus agalactiae DNA [Presence] in Unspecified specimen by JATIN with probe detection *GBSD - Group B Strep, DNA by PCR [facility] Start: 02-10-2017 End: 02-10-2017 Us preg uterus after 1st trimest / gestation US OB, >14 weeks [facility] Start: 01-12-2017 End: 02-15-2017 *CUUID - Urine MOHAN Culture - Identificatn *CUUID - Urine MOHAN Culture - Identificatn [facility] Start: 12-29-2016 End: 12-29-2016 *CUUID - Urine MOHAN Culture - Identificatn *CUUID - Urine MOHAN Culture - Identificatn [facility] Start: 12-29-2016 End: 02-15-2017 Us preg uterus after 1st trimest 05/09 gestation US OB, >[address] [facility] Start: 12-21-2016 End: 12-22-2016 Physical Therapy General Physical Therapy [facility], [address] [place] [address], [id number] [facility] Start: 12-15-2016 End: 12-17-2016 Chiropractor Referral Chiropractor Referral [facility] Start: 2016 HPV Vaccine (1 - 3-d ose SCDM series) HPV Vaccine (1 - 3-dose SCDM series) [facility] Start: 2008 Hepatitis B Vaccine (1 of 3 - 19+ 3-dose series) Hepatitis B Vaccine (1 of 3 - 19+ 3-dose series) [facility] Start: 2007 Depression Screening Depression Scre ening [facility] Start: 12-07-2005 Urine microalbumin profile [facility] Start: 1995 PNEUMOCOCCAL (1 - PCV) PNEUMOCOCCAL (1 - PCV) [facility] Start: 1994 COVID-19 VACCINE (#1) COVID-19 VACCI NE (#1) [facility] Start: 1994 COVID-19 VACCINE (1) COVID-19 VACCIN E (1) [facility] Start: 1989 COVID-19 VACCINE (#1) COVID-19 VACCI NE (#1) [facility] Start: 1989 HEPATITIS B (1 of 3 - 3-dose series) HEPATITIS B (1 of 3 - 3-dose series) [facility] Bacteria identified in Urine by Culture Urine Culture [facility] Clostridioides diffi cile DNA [Presence] in Unspecified specimen by JATIN with probe detection [facility] Hemoglobin A1c/Hemoglobin.total in Blood HEMOGLOBIN A1C (POC) Lab Routine Class 2 severe obesity with serious comorbidity and body mass index (BMI) of 35.0 to 35.9 in adult, unspecified obesity type (HCC) Ordered: 08/09/2024 [facility] Work Phone: Comment on above: Ordered: 08/09/2024 Influenza virus A an d B RNA and SARS-CoV-2 (COVID-19) N gene panel - Respiratory specimen by JATIN with probe detection COVID WITH FLUA+B, ROUTINE Microbiology Routine Upper respiratory symptom Ordered: 04/21/2022 [facility] Work Phone: Comment on above: Ordered: 04/21/2022 Lactoferrin [Presenc e] in Stool by Immunoassay [facility] Nucleic acid assay [facility] Ova OR parasites identification [facility] Patient Education [facility] Work Phone: Patient referral [facility] Work Phone: End: 10-21-2023 US ABD RIGHT UPPER QUADRANT US ABD RIGHT UPPER QUADRANT Radiology Routine Right flank pain 1 Occurrences starting 09/21/2022 until 10/21/2023 [facility] Work Phone: Comment on above: 1 Occurrences starti ng 09/21/2022 until 10/21/2023 End: 12-18-2023 Us soft tissue head & neck real time imge docm US THYROID/PARATHYROID Radiology Routine Thyromegaly 1 Occurrences starting 11/18/2022 until 12/18/2023 [facility] Work Phone: Comment on above: 1 Occurrences starti ng 11/18/2022 until 12/18/2023 US Thyroid gland [facility] End: 09-13-2024 US Thyroid gland US THYROID/PARATHYROID Radiology Routine Thyroid nodule 1 Occurrences starting 08/15/2023 until 09/13/2024 [facility] Work Phone: Comment on above: 1 Occurrences starti ng 08/15/2023 until 09/13/2024 US Thyroid gland US THYROID/PARA THYROID Radiology Routine Thyroid nodule 12/19/2023 9:37 AM EDT [facility] Work Phone: End: 10-21-2023 XR ABDOMEN 1V SUPINE XR ABDOMEN 1V SUPINE Radiology Routine Right flank pain RUQ pain Epigastric pain Acute constipation 1 Occurrences starting 09/21/2022 until 10/21/2023 [facility] Work Phone: Comment on above: 1 Occurrences starti ng 09/21/2022 until 10/21/2023 XR ABDOMEN 1V SUPINE XR ABDOMEN 1V SUPINE Radiology Routine Right flank pain RUQ pain Epigastric pain Acute constipation 09/21/2022 1:54 PM EDT [facility] Work Phone: [facility] [place] [facility] Immunizations Immunization Date Immunization Notes Care Provider Fa bernadine 02-24-2011 influenza virus vaccine, unspecified formulation Summer B[address] RD Work Phone: [facility] Work Phone: 08-25-2009 tuberculin skin test ; purified protein derivative solution, intradermal Stef Luis RD Work Phone: [facility] 12-06-2005 tetanus and diphther ia toxoids, adsorbed, preservative free, for adult use (2 Lf of tetanus toxoid and 2 Lf of diphtheria toxoid) Summer [address] RD Work Phone: [facility] Work Phone: 12-12-2001 measles, mumps and rubella virus vaccine Summer Bender RD Work Phone: [facility] Work Phone: 12-30-1994 diphtheria, tetanus toxoids and acellular pertussis vaccine Summer [address] RD Work Phone: [facility] Work Phone: 12-30-1994 poliovirus vaccine, inactivated Summer Bender RD Work Phone: [facility] Work Phone: 11-16-1990 diphtheria, tetanus toxoids and pertussis vaccine Summer [address]ender RD Work Phone: [facility] Work Phone: 11-16-1990 poliovirus vaccine, inactivated Summer Bender RD Work Phone: [facility] Work Phone: 08-03-1990 haemophilus influenz ae type b vaccine, conjugate unspecified formulation Summer Bender RD Work Phone: [facility] Work Phone: 08-03-1990 measles, mumps and rubella virus vaccine Summer Bender RD Work Phone: [facility] Work Phone: 1989 diphtheria, tetanus toxoids and pertussis vaccine Summer Bender RD Work Phone: [facility] Work Phone: 1989 diphtheria, tetanus toxoids and pertussis vaccine Summer [address]ender RD Work Phone: [facility] Work Phone: 1989 poliovirus vaccine, inactivated Summer Bender RD Work Phone: [facility] Work Phone: 1989 diphtheria, tetanus toxoids and pertussis vaccine Summer Bender RD Work Phone: [facility] Work Phone: 1989 poliovirus vaccine, inactivated Summer Bender RD Work Phone: [facility] Work Phone: Payers Date Payer Category Payer Self-pay 2017 Medicaid [id number] 2016 Medicaid [employer] [id number] 2016-Present [phone] [address] [place] [address] Medicaid [id number] 2016 Medicaid [id number] 2016 Unknown [id number] 2015 Unknown [id number] 1989 Unknown [id number] 1989 Unknown [id number] 1989 Unknown [id number] 1989 Unknown [id number] 1989 Unknown [id number] 1989 Unknown [id number] Unknown Unknown [id number] Unknown [id number] Unknown [id number] Unknown [id number] Unknown [id number] Unknown [id number] Unknown [id number] Unknown [id number] Unknown [id number] Unknown [id number] Unknown [id number] Social History Date Type Detail Facility Start: 07-18-2012 End: 02-14-2024 Tobacco smoking status NHIS Ex-smoker [facility] Start: 05-25-2006 End: 11-23-2006 History of tobacco use Current smoker [facility] Start: 05-25-2006 End: 11-23-2006 History of tobacco use Cigarette Smoker [facility] Start: 07-18-2012 End: 02-14-2024 Tobacco use and exposure Smokeless tobacco non-user [facility] Start: 07-28-2021 End: 01-17-2025 Alcohol intake Ex-drinker (finding) [facility] Start: 07-27-2021 End: 05-11-2022 History SDOH Alcohol Frequency 1 [facility] Start: 07-27-2021 History SDOH Alcohol Std Drinks 98 [facility] Start: 09-08-2020 History SDOH Alcohol Comment stopped 08/19/2017 [facility] Start: 07-27-2021 End: 05-11-2022 History SDOH Social Connections Phone 3 [facility] Start: 07-27-2021 End: 05-11-2022 History SDOH Social Connections Get Together 2 [facility] Start: 07-27-2021 History SDOH Social Connections Living 8 [facility] Start: 07-27-2021 End: 05-11-2022 History SDOH Physical Activity DPW 5 [facility] Start: 07-27-2021 History SDOH Financial 4 [facility] Start: 1990 Sex Assigned At Female C [facility] Start: 07-17-2021 End: 03-10-2022 Exposure to SARS-CoV-2 (event) Not sure [facility] Start: 11-22-2021 End: 12-02-2021 Exposure to SARS-CoV-2 (event) Unable to assess [facility] Start: 05-11-2022 History SDOH Alcohol Std Drinks 0 [facility] Start: 05-11-2022 History SDOH Physica l Activity DPW 7 [facility] Start: 09-20-2022 End: 05-13-2023 Tobacco smoking status NHIS Unknown if ever smoked [facility] Start: 07-19-2019 None [facility] Start: 09-18-2019 Non-smoker [facility] Start: 05-10-2022 End: 09-23-2022 History of Social function [facility] Start: 05-10-2022 End: 09-23-2022 Social connection and isolation panel [facility] Do you belong to any clubs or organizations such as amish groups, unions, fraternal or athletic groups, or school groups? Yes [facility] Are you now , , , , never or living with a partner? [facility] How often to you hav e a drink containing alcohol? Never [facility] Start: 04-09-2012 How many standard drinks containing alcohol do you have on a typical day? Patient does not drink [facility] How hard is it for y ou to pay for the very basics like food, housing, medical care, and heating Somewhat hard [facility] Do you feel stress - tense, restless, nervous, or anxious, or unable to sleep at night because your mind is troubled all the time - these days [OSQ] Only a little [facility] (I/We) worried wheritu er (my/our) food would run out before (I/we) got money to buy more. Never true [facility] In the past 12 month s, was there a time when you were not able to pay the mortgage or rent on time? No [facility] Start: 08-07-2020 Gender identity Identifies as female gender (finding) [facility] Start: 08-07-2020 Sexual orientation Heterosexual (sameer medley) [facility] Do you feel stress - tense, restless, nervous, or anxious, or unable to sleep at night because your mind is troubled all the time - these days [OSQ] Very much [facility] NEGATED: Highlighted row [facility] Functional Status Date Assessment Result Facility 07-09-2021 Are you deaf, or do you have serious difficulty hearing No 07/09/2021 2:38 PM Dolly Perla RN No [facility] 07-09-2021 Are you blind, or do you have serious difficulty seeing, even when wearing glasses No 07/09/2021 2:38 PM Dolly Perla RN No [facility] 07-09-2021 Do you have serious difficulty walking or climbing stairs No 07/09/2021 2:38 PM Dolly Perla RN No [facility] 07-09-2021 Do you have difficul ty dressing or bathing No 07/09/2021 2:38 PM Dolly Perla RN No [facility] 07-09-2021 Because of a physica l, mental, or emotional condition, do you have difficulty doing errands alone such as visiting a physician's office or shopping No 07/09/2021 2:38 PM Dolly Perla RN No [facility] Mental Status Date Assessment Result Facility 09-20-2022 Cognitive function Level Of Cons ciousness Awake;Alert;Appropriate;Fol lows Commands [facility] Work Phone: 07-09-2021 Because of a physica l, mental, or emotional condition, do you have serious difficulty concentrating, remembering, or making decisions No 07/09/2021 2:38 PM Dolly Perla RN No [facility] Clinical Notes 01-01-2016 to 03-01-2025 Manuela Isbell MD - 01/17/2025 10:40 AM EDTPatient InstructionsPatient InstructionsStef Luis RD - 12/31/2024 9:30 AM EDTTelephone Encounter - Heidi Horowitz - 12/04/2024 3:26 PM EDT Note Date & Type Note Facility 03-01-2025 Note HNO ID: [id number] Author: CHRISTEL POSEY RDMS Service: ? 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 FALL SCREENING: Has the patient had 2 falls in the last year or 1 fall with injury or currently using an Ambulatory Assistive Device (Walker, Cane, Wheelchair, Crutches, etc.)? No PATIENT GENDER DATA: Assigned female at . status: : No status: NO. PATIENT RELEVANT IMPLANT DATA REVIEWED: Not Applicable PATIENT PRESENTS WITH AN IMPLANTABLE OR ATTACHED SUPERVISOR HOUSECLEANER: No RADIOLOGY DEPARTMENT: Ultrasound PERIPHERAL IV DATA: Not applicable SIGNED BY: Christel Posey RDMS RVT March 01, 2025 10:30 AM [facility] 01-17-2025 History of Presen t illness Narrative Images [...] lb) 413 lbs Lowest weight 192 lbs [place] weight: 72.4 kg (159 lb 11 oz) Excess weight: 84.1 kg (185 lb 5 oz) % of excess body weight lost: 156.5 kg (345 lb) (186.17% of excess weight loss) Interval history: Fasting labs (after 15 hrs of fasting) with no hypoglycemia. Started on Dexcom at last visit. She was in the ED twice in the summer for stomachache: concern for possible UC or Crohn's She can't keep the sensor on her arm (falls out frequently). She did not feel well last week, not sure if it is related to her BG or stomachache. Checks her BG few days a week (only when symptomatic) lowest down to 58 mg/dL. Obesity Medications: Phentermine with poor response. Semaglutide not covered by insurance. Hypoglycemia medications: Did not tolerate Acarbose DIET INTAKE: Follows up with Stef CHERY from BMI: More watermelon, chicken, salmon and beef. Does not have a huge appetite. Drinks 3/4-1 gallon a day of water Wakes up at 3-4 am: not doing creatine as she has not been feeling well, pre workout water with 100 mg of caffeine and vitamin complex She works out for 75 minutes: strength and cardio Home at 6 am and protein shake with stavia, egg shake with pepper, coffee one cup a day with stavia At 8 am: protein yogurt, sourdough with avocado, meat and cheese. At noon: danish yogurt with berries , beef jerky No snacks. Water and protein yogurt. Dinner at 7 pm: protein and veggies. Did not tolerate pasta. No alcohol Switched to decaf caffeine. Sometimes sips water after food. Resting Metabolic Rate: 1806 Averaging 1100 fang a day. DAILY SUPPLEMENTS: Yes Calcium: Calcium Citrate w/ vitamin D (1200 - 1500mg) 3 tablets daily Multivitamin & Minerals: 1 per day Iron Supplement: none Vitamin D3: 4000 IU Other: vitamin A, B complex EXERCISE: She works out for an hour to an hour and half: strength and cardio SLEEP: MARIAM No , CPAP No REVIEW OF SYSTEMS: Review of Systems Constitutional: Positive for night sweats. Negative for recent unintentional weight change. Eyes: Negative for visual disturbance. Respiratory: Negative for difficulty breathing. Cardiovascular: Negative for chest pain and leg swelling. Gastrointestinal: Negative for nausea and diarrhea. Musculoskeletal: Positive for myalgias. Neurological: Positive for headaches. Negative for dizziness. MEDICATIONS: Current Outpatient Medications on File Prior to Visit Medication Sig Blood-Glucose Meter,Continuous (FREESTYLE CONNIE 3 READER) [facility] Use to check blood sugar at least four (4) times daily. Blood-Glucose Sensor (FREESTYLE CONNIE 3 PLUS SENSOR) [place] Apply new sensor every fifteen (15) days to upper arm. acarbose (PRECOSE) 25 mg tablet Take 2 tablets by mouth three times a day. glucagon 3 mg/actuation nasal spray (BAQSIMI) Use 1 Allgood in the nose as needed for low blood sugar. May repeat after 15 minutes using a new device if there is no response. Magnesium Oxide 500 mg cap Take 1 capsule by mouth once daily. Creatinine, Bulk, 100 % powd 1,500 mg once daily. amitriptyline (ELAVIL) 10 mg tablet Take 2 [...] (BMI) of 60.0 to 69.9 in adult ([facility]) 10/07/2009 Esophagitis, unspecified High grade squamous intraepithelial [...] Paternal Aunt Collin Disease Paternal cousin SOCIAL HISTORY[1] PHYSICAL EXAM: Mary Junior is a 34 year old year old female who looks her stated age. Vital Signs BP 128/85 Pulse 68 Wt 109.3 kg (240 lb 15.4 oz) LMP 08/28/2020 (Exact Date) BMI 38.89 kg/m General: no acute distress Eyes: extra [...] further details. IMPRESSION/PLAN: Encounter Diagnosis ICD-10-CM 1. Hypoglycemia after GI (gastrointestinal) surgery (HCC) K91.2 2. Status post bariatric surgery Z98.84 VITAMIN B1 (THIAMINE), WHOLE BLOOD VITAMIN D 25 HYDROXY VITAMIN B12 FOLATE, SERUM IRON AND TIBC FERRITIN COMPREHENSIVE METABOLIC PANEL PTH INTACT COMPLETE BLOOD COUNT 3. Class 2 severe obesity with serious comorbidity and body mass index (BMI) of 38.0 to 38.9 in adult, unspecified obesity type (HCC) E66.812 Z68.38 E66.01 4. Abdominal pain, unspecified abdominal location R10.9 CONSULT TO GASTROENTEROLOGY 34 year old female with Class II obesity 3 years s/p LAPAROSCOPIC GASTRIC RESTRICTIVE SURG W/ BYPASS & FRANCISCA-EN-Y 150CM OR LESS. Total program weight loss of 221 lbs or 53.5% TBW with recent weight regain. PMH is also significant for lung nodule, GERD, depression. Patient is here for follow up of post operative hypoglycemia with glycopenic symptoms. Previous 16 hour fast labs with no hypoglycemia. Symptoms are mainly managed with dietary modification. Patient is not interested in adding medication. Recently with a lot of GI issues affecting her daily caloric intake, follows up with dietitian. Experiencing some weight regain since last visit. Taking supplements. Physical activity at the recommended level. Plan: -- Discussed adding heart healthy oils to meals and avoiding high glycemic index CHO. -- Reviewed dietary recommendations to prevent hypoglycemia. -- In case of severe hypoglycemia; Glucagon nasal powder was prescribed and sent to local pharmacy. -- Referral to GI for evaluation of possible new diagnosis of UC vs Crohn's -- Post op labs ordered today. -- Advised to apply a Tegaderm dressing over her sensor to ensure adhesion and prevent dislodgement. -- Follow up in 4-6 months All questions answered today. Manuela Isbell MD [facility] Answers submitted by the patient for this visit: Core Review of Systems (Submitted on 01/14/2025) Fever : No Nasal Congestion: No Hearing Loss: No A cough: No Irregular heartbeat: No Black tarry stools: No Difficulty Urinating?: No Awaken at Night More Than Once to Urinate?: No Joint pain or stiffness: Yes Leg or Foot Discomfort at Night?: Yes A rash: No Memory Loss: No Seizures: No I spent a total of 40 minutes on the date of the service which included preparing to see the patient, [id number] patient care, completing clinical documentation, obtaining and/or reviewing separately obtained history, performing a medically appropriate examination, counseling and educating the patient/family/caregiver, and ordering medications, tests, or procedures. [1] Social History Tobacco Use Smoking status: Former Current packs/day: 0.00 Types: Cigarettes Start date: 05/25/2006 Quit date: 11/23/2006 Years since quittin.1 Smokeless tobacco: Never Vaping Use Vaping status: Never Used Substance Use Topics Alcohol use: Not Currently Comment: stopped 08/19/2017 Drug use: No documented in this encounter [facility] 01-17-2025 Note HNO ID: [id number] Author: MANUELA ISBELL MD Service: ? Author Type: Physician Type: Progress Notes Filed: 01/17/2025 15:52 Note Text: [facility] OBESITY [...] lb) 413 lbs Lowest weight 192 lbs [place] weight: 72.4 kg (159 lb 11 oz) Excess weight: 84.1 kg (185 lb 5 oz) % of excess body weight lost: 156.5 kg (345 lb) (186.17% of excess weight loss) Interval history: Fasting labs (after 15 hrs of fasting) with no hypoglycemia. Started on Dexcom at last visit. She was in the ED twice in the summer for stomachache: concern for possible UC or Crohn's She can't keep the sensor on her arm (falls out frequently). She did not feel well last week, not sure if it is related to her BG or stomachache. Checks her BG few days a week (only when symptomatic) lowest down to 58 mg/dL. Obesity Medications: Phentermine with poor response. Semaglutide not covered by insurance. Hypoglycemia medications: Did not tolerate Acarbose DIET INTAKE: Follows up with Stef CHERY from BMI: More watermelon, chicken, salmon and beef. Does not have a huge appetite. Drinks 3/4-1 gallon a day of water Wakes up at 3-4 am: not doing creatine as she has not been feeling well, pre workout water with 100 mg of caffeine and vitamin complex She works out for 75 minutes: strength and cardio Home at 6 am and protein shake with stavia, egg shake with pepper, coffee one cup a day with stavia At 8 am: protein yogurt, sourdough with avocado, meat and cheese. At noon: danish yogurt with berries , beef jerky No snacks. Water and protein yogurt. Dinner at 7 pm: protein and veggies. Did not tolerate pasta. No alcohol Switched to decaf caffeine. Sometimes sips water after food. Resting Metabolic Rate: 1806 Averaging 1100 fang a day. DAILY SUPPLEMENTS: Yes Calcium: Calcium Citrate w/ vitamin D (1200 - 1500mg) 3 tablets daily Multivitamin AND Minerals: 1 per day Iron Supplement: none Vitamin D3: 4000 IU Other: vitamin A, B complex EXERCISE: She works out for an hour to an hour and half: strength and cardio SLEEP: MARIAM No , CPAP No REVIEW OF SYSTEMS: Review of Systems Constitutional: Positive for night sweats. Negative for recent unintentional weight change. Eyes: Negative for visual disturbance. Respiratory: Negative for difficulty breathing. Cardiovascular: Negative for chest pain and leg swelling. Gastrointestinal: Negative for nausea and diarrhea. Musculoskeletal: Positive for myalgias. Neurological: Positive for headaches. Negative for dizziness. MEDICATIONS: Current Outpatient Medications on File Prior to Visit Medication Sig Blood-Glucose Meter,Continuous (FREESTYLE CONNIE 3 READER) [facility] Use to check blood sugar at least four (4) times daily. Blood-Glucose Sensor (FREESTYLE CONNIE 3 PLUS SENSOR) [facility]ison Apply new sensor every fifteen (15) days to upper arm. acarbose (PRECOSE) 25 mg tablet Take 2 tablets by mouth three times a day. glucagon 3 mg/actuation nasal spray (BAQSIMI) Use 1 Allgood in the nose as needed for low blood sugar. May repeat after 15 minutes using a new device if there is no response. Magnesium Oxide 500 mg cap Take 1 capsule by mouth once daily. Creatinine, Bulk, 100 % powd 1,500 mg once daily. amitriptyline (ELAVIL) 10 mg tablet Take 2 [...] Cancer Maternal Grandmother lung and liver Kidney Diseas (more content not included)... [facility] 01-17-2025 Instructions Aniya Woo MA - 01/17/2025 10:05 AM EDT Thank you for choosing the [facility] Department of Endocrinology, Diabetes and Metabolism. Did you know that you need to call 48 hours in advance of your scheduled visit, if you are unable to make your appointment? The [facility] thanks you for your commitment, because patients not showing to their appointment results in a lost opportunity for patients to receive [facility] health care at the [facility]. To Cancel an appointment, please choose one of the following: - Call the Appointment Call Center at [phone] - From [employer], Go to Appointments - Cancel Appts If cancelling, consider your need to reschedule to prevent further delays in your care. To Schedule an appointment, please choose one of the following: - Call the Appointment Call Center at [phone] - From [employer], Go to Appointments - Request an Appt documented in this encounter [facility] 12-31-[address] - 12/31/2024 10:29 AM EDT Nutrition Action Plan 1. Protein: [...] mcg, Iron 45 mg and calcium citrate 5873-7769 mg/day- current regimen meets recommendations 5. Exercise: strive for daily activity - combine strength training and cardio for best workouts. Continue to aim for >200 minutes per week 6. Practice these: Eat in this order protein first, vegetable and fruit second and whole grain carbohydrates last. * Separate eating and drinking by 30 minutes * Chew your food 20-30x per bite * Meals should last 30 minutes. 7. Track meals and snacks with an marlin; aim for ~2494-3889 calories per day; aim for ~50-75 gm cho per day 8. Continue to choose foods that fit the diet plan and do not trigger symptoms; identify optimal amount of fiber each day Follow Up on 04/01 at 9:30 AM documented in this encounter [facility] 12-31-2024 History of Presen t illness Narrative [facility] Nutrition Therapy: Virtual Consult - Re-assessment I have communicated my name and active licensure. The patient s identity and physical location were verified at the time of this visit. Either the patient or their legal associate sales representative has been informed of the risks [...] MALNUTRITION IDENTIFIED NUTRITION CARE PLAN: Nutrition Intervention 12/31/2024: 1. Protein: Continue to strive for 85 [...] mcg, Iron 45 mg and calcium citrate 5033-2669 mg/day- current regimen meets recommendations 5. Exercise: strive for daily activity - combine strength training and cardio for best workouts. Continue to aim for >200 minutes per week 6. Practice these: Eat in this order protein first, vegetable and fruit second and whole grain carbohydrates last. * Separate eating and drinking by 30 minutes * Chew your food 20-30x per bite * Meals should last 30 minutes. 7. Track meals and snacks with an marlin; aim for ~4266-0718 calories per day; aim for ~50-75 gm cho per day 8. Continue to choose foods that fit the UC diet plan and do not trigger symptoms; identify optimal amount of fiber each day Nutrition Monitoring & Evaluation: BMI <35 Need for Follow up: 3 months as scheduled PROGRESS: 3.5 years post op RYGB ([place]) Net weight loss 155 lbs (380 lbs initial) Pre-surgery weight: 345 pounds >40 % TWL weight loss higher than expected Weight maintenance since last assessment (225 lbs) Patient reports she had gotten sick late October into early November; testing confirmed a Dx of UC. She has changed her diet choices and reports feeling better. Diet recall indicates a consistent meal pattern with regular meals and snacks. Patient tolerates Phase V diet plan without complaints. She confirms to eat slowly and separates fluids from foods as recommended. PA meets recommendations. ~1100 calories/day slightly below recommendations ~120-140 gm protein intake/day Meets recommendations ~1 gallon fluid intake/day Meets recommendations Consistent with appropriate vitamin/minerals. Meets recommendations Labs reveal WNL Resting Metabolic Rate: 1733 Energy needs for weight loss: 7990-4968 calories per day (10-15 kcal/kg CBW) Protein needs: 85 grams protein per day (1.2 g/kg IBW) Nutrition Intervention Sharyn Luis 11/05/24 1. Protein: Continue to strive for >85 [...] a complex carb and protein before bed MET 3. Fluids: 64 oz per day, minimum. No carbonation, no caffeine, no calories, no alcohol. MET 4. Vitamin/minerals: Take daily multivitamin with 200 % daily value for all vitamin/minerals plus VIt D3 3,000 IU, Vit B12 500 mcg, Iron 45 mg and calcium citrate 8282-7794 mg/day MET -continue current regimen, and add in a generic once daily MVI 5. Exercise: strive for daily activity - continue current exercise with a goal of >200 minutes total between cardio and strength training per week MET 6. Practice these: Eat in this order protein first, vegetable and fruit second and whole grain carbohydrates last. * Separate eating and drinking by 30 minutes * Chew your food 20-30x per bite * Meals should last 30 minutes. 7. Continue tracking meals and snacks with an marlin; aim for 5223-1867 calories per day IN PROGRESS 8. Continue to work with your medical team to identify sources of low blood sugars and manage stressors MET Actions to implement interventions: see assessment Diet History: Breakfast - oikos danish yogurt (15 gm pro) OR 2 eggs (14 gm pro) OR jocko protein powder (22 gm pro) mixed with 1 c fairlife milk (13 gm pro) Snack - none Lunch - 3-4 oz grilled chicken/salmon/tuna mixed with mustard (21-28 gm pro), cucumber/watermelon Snack - none OR low fiber vegetables Dinner - grilled vegetables, 3-4 oz pork/chicken/lean steak/chicken (21-28 gm pro), and fresh fruit Snack - none Beverages - ~1 gallon water, sometimes seeq or hydroswell powder (20 gm pro) Alcohol - none Vitamins/Supplements - creatine, 41520 international unit(s) vitamin A, 4000 international unit(s) vitamin D, vitamin B complex, 65 mg iron, 1800 mg calcium, MVI Activity: Activities of Daily Living: Active 75% of the day. 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 Malnutrition Screening Significant unintentional weight loss? No Eating less than 75% of usual intake for more than 2 weeks? No Potential Signs of Inflammation: chronic condition Food Insecurity: No Food Insecurity (12/31/2024) Hunger Vital Sign Worried About Running Out of Food in the Last Year: Never true Ran Out of Food in the Last Year: Never true Education Materials Provided: None this visit READINESS TO LEARN Cognitive ability: Alert and oriented Motivation to learn: Eager Family support: Moderate - Family present but overwhelmed Instruction provided to: Patient Patient learns best by: Individual Instruction Multiple Methods Factors affecting learning: None Physical limitations affecting learning: None Likelihood of Adherence: High Referred by: Sukhi MNT Billing Type: Re-assess 2 units Total Time (mins): (P) 35 SIGNATURE: Stef Luis RD PATIENT NAME: Mary Junior DATE: December 31, 2024 TIME: 10:27 AM documented in this encounter [facility] 12-31-2024 Note HNO ID: [id number] Author: STEF LUIS RD Service: ? Author Type: Registered Dietitian Type: Progress Notes Filed: 12/31/2024 10:29 Note Text: [facility] Nutrition Therapy: Virtual Consult - Re-assessment I have communicated my name and active licensure. The patient?s identity and physical location were verified at the time of this visit. Either the patient or their legal associate sales representative has been informed of the risks [...] MALNUTRITION IDENTIFIED NUTRITION CARE PLAN: Nutrition Intervention 12/31/2024: 1. Protein: Continue to strive for 85 [...] mcg, Iron 45 mg and calcium citrate 6402-1599 mg/day- current regimen meets recommendations 5. Exercise: strive for daily activity - combine strength training and cardio for best workouts. Continue to aim for >200 minutes per week 6. Practice these: Eat in this order protein first, vegetable and fruit second and whole grain carbohydrates last. * Separate eating and drinking by 30 minutes * Chew your food 20-30x per bite * Meals should last 30 minutes. 7. Track meals and snacks with an marlin; aim for ~6730-3392 calories per day; aim for ~50-75 gm cho per day 8. Continue to choose foods that fit the UC diet plan and do not trigger symptoms; identify optimal amount of fiber each day Nutrition Monitoring AND Evaluation: BMI <35 Need for Follow up: 3 months as scheduled PROGRESS: 3.5 years post op RYGB ([place]) Net weight loss 155 lbs (380 lbs initial) Pre-surgery weight: 345 pounds >40 % TWL weight loss higher than expected Weight maintenance since last assessment (225 lbs) Patient reports she had gotten sick late October into early November; testing confirmed a Dx of UC. She has changed her diet choices and reports feeling better. Diet recall indicates a consistent meal pattern with regular meals and snacks. Patient tolerates Phase V diet plan without complaints. She confirms to eat slowly and separates fluids from foods as recommended. PA meets recommendations. ~1100 calories/day slightly below recommendations ~120-140 gm protein intake/day Meets recommendations ~1 gallon fluid intake/day Meets recommendations Consistent with appropriate vitamin/minerals. Meets recommendations Labs reveal WNL Resting Metabolic Rate: 1733 Energy needs for weight loss: 0012-4556 calories per day (10-15 kcal/kg CBW) Protein needs: 85 grams protein per day (1.2 g/kg IBW) Nutrition Intervention Sharyn Luis 11/05/24 1. Protein: Continue to strive for >85 [...] a complex carb and protein before bed MET 3. Fluids: 64 oz per day, minimum. No carbonation, no caffeine, no calories, no alcohol. MET 4. Vitamin/minerals: Take daily multivitamin with 200 % daily value for all vitamin/minerals plus VIt D3 3,000 IU, Vit B12 500 mcg, Iron 45 mg and calcium citrate 8293-7832 mg/day MET -continue current regimen, and add in a generic once daily MVI 5. Exercise: strive for daily activity - continue current exercise with a goal of >200 minutes total between cardio and strength training per week MET 6. Practice these: Eat in this order protein first, vegetable and fruit second and whole grain carbohydrates last. * Separate eating and drinking by 30 minutes * Chew your food 20-30x per bite * Meals should last 30 minutes. 7. Continue tracking meals and snacks with an marlin; aim for 5132-7264 calories per day IN PROGRESS 8. Continue to work with your medical team to identify sources of low blood sugars and manage stressors MET Actions to implement interventions: see assessment Diet History: Breakfast - oikos danish yogurt (15 gm pro) OR 2 eggs (14 gm pro) OR jocko protein powder (22 gm pro) mixed with 1 c fairlife milk (13 gm pro) (more content not included)... [facility] 12-04-2024 Telephone encounter Note Lvm for pt stating that Dr. Isbell will be out of office on 12/20/24 and that we need to reschedule her appointment. Rescheduled appointment to 01/17/25 at 10:40am. Will send mychart message. [facility] 12-04-2024 Miscellaneous Notes Lvm for pt stating that Dr. Isbell will be out of office on 12/20/24 and that we need to reschedule her appointment. Rescheduled appointment to 01/17/25 at 10:40am. Will send mychart message. documented in this encounter [facility] 11-09-2024 Radiology Diagnostic study note [facility] Imaging Services [address] [place] [id number] Abdomen/Pelvis W IV Cont ONLY MR#: [id number] Acct: [id number] Name: MARY JUNIOR RICARDO Rep #: [id number] : 1990 F 34 From: Guerda Bai MD PCP: Dr. Asif Haque MD Status: REG E R Study:Abdomen/Pelvis W IV Cont ONLY Date of E xam: 11/09/24 Exam# [id number] Ordering Dr: Zan Pascal DO PROCEDURE: ABDOMEN/PELVIS W IV CONT ONLY 11/09/2024 REASON FOR EXAM: ABDOMINAL PAIN TECHNIQUE: ABDOMEN/PELVIS W IV CONT ONLY Coronal and Sagittal reconstruction series were provided. CONTRAST: Isovue 370 VOLUME: 100 mL One or more dose reduction techniques were used (e.g., Automated exposure control, adjustment of the mA and/or kV according to patient size, use of iterative reconstruction technique. RADIATION DOSE SUMMARY: CTDlvol: 32.35 mGy DLP: 1151.24 mGycm COMPARISON: 11/07/2024 FINDINGS: Lung bases: Unremarkable Liver: No discrete lesion. There is intrahepatic biliary dilatation consistent with previous cholecystectomy Gallbladder: Surgically absent. Spleen: Normal size. Pancreas: Normal size without evidence of mass surrounding inflammation or ductal dilation. Adrenals: Unremarkable Kidneys: No obstructive uropathy or suspicious solid renal lesion. Bladder: Unremarkable Reproductive Organs: Surgically absent Bowel: There is evidence of submucosal thickening and edema now noted in the hepatic flexure of the colon consistent with acute focal colitis in the distal ascending and proximal transverse colon. There is pericolonic inflammatory stranding but no perforation or abscess. As mentioned: This is new compared to yesterday's study. This is likely infectious or inflammatory. There are nondistended fluid-filled small bowel loops suggesting ileus. Evidence of previous abdominal surgery without evidence of anastomotic leak. If patient has a history of Crohn's or ulcerative colitis this could easily represent an acute exacerbation. Appendix: Normal appendix seen on coronal recon image 51 No free intraperitoneal fluid, air, or suspicious adenopathy. There are subcentimeter in short axis dimension mesenteric lymph nodes likely reactive. IVC and aorta are unremarkable. There is a small amountof free fluid in the dependent pelvis Bones: Normal CT/Abdomen/Pelvis W IV Cont ONLY IMPRESSION: Development of submucosal thickening and edema in the distal ascending with acute exacerbation of colitis, likely Crohn's or ulcerative colitis. This could also be infectious or inflammatory. There are associated subcentimeter in short axis dimension mesenteric lymph nodes that are likely reactive No suspicious solid organ abnormality, there is sequela of previous cholecystectomy No free intraperitoneal fluid, or air. Normal appendix visualized Reading Location: [id number] CC: Dr. Zan Pascal DO; Dr. Asif Haque MD ~ Bonding Agent: Signed [facility] 11-07-2024 Telephone encounter Note Most recent Endocrinology visit: Last encounter Visit on 08/09/2024 (with Manuela Alkhaled) 08/15/2023 in [facility] with BENDARAM, DONITA HICKS for Thyroid nodule 02/14/2024 in [facility] with BENDARAM, DONITA HICKS for Collin's thyroiditis 07/04/2024 in [facility] with ALKHALED, MANUELA for Hypoglycemia after GI (gastrointestinal) surgery (HCC) 08/09/2024 [facility] with ALKHALED, MANUELA for Class 2 severe obesity with serious comorbidity and body mass index (BMI) of 35.0 to 35.9 in adult, unspecified obesity type (HCC) Upcoming Endocrinology Appointments - Next 365 Days Visit Type Date Time Department EST JONAH PATIENT 12/20/2024 11:20 AM [facility] EST JONAH PATIENT 01/14/2025 9:20 AM ENDO [facility] Requested Prescriptions Pending Prescriptions Disp Refills DEXCOM G7 SENSOR allison [Pharmacy Med Name: DEXCOM G7 SENSOR] 3 Si EACH EVERY 10 DAYS. Latest Ref Rng & Units 08/09/2024 01/20/2024 05/14/2022 Hemoglobin A1C Hemoglobin A1C 4.3 - 5.6 % 5.2 5.1 Hemoglobin A1C (POCT) 4.3 - 5.6 % 5.1 Latest Ref Rng & Units 01/20/2024 08/15/2023 11/18/2022 TSH TSH 0.270 - 4.200 mIU/L 1.960 2.140 1.780 Free T3: None on file in the last 12 months Free T4: None on file in the last 12 months Thyroglobulin: None on file in the last 12 months Latest Ref Rng & Units 01/20/2024 09/16/2020 Vitamin D Vitamin D 25 Hydroxy 31.0 - 80.0 ng/mL 59.2 32.2 Latest Ref Rng & Units 01/20/2024 09/21/2022 11/10/2021 Hematocrit Hematocrit 36.0 - 46.0 % 39.0 41.8 39.5 Latest Ref Rng & Units 01/20/2024 09/21/2022 05/14/2022 Creatinine Creatinine 0.58 - 0.96 mg/dL 0.86 0.85 0.79 Latest Ref Rng & Units 01/20/2024 09/21/2022 05/14/2022 eGFR EGFR >=60 mL/min/1.73m 91 93 101 Latest Ref Rng & Units 01/20/2024 09/21/2022 05/14/2022 Potassium Potassium 3.7 - 5.1 mmol/L 3.8 4.2 4.3 Testosterone: None on file in the last 12 months IGF: None on file in the last 12 months Prolactin: None on file in the last 12 months [facility] 11-07-2024 Miscellaneous Notes Most recent Endocrinology visit: Last encounter Visit on 08/09/2024 (with Manuela Alkhaled) 08/15/2023 in [facility] with BENDARAMSNDONITA HICKS for Thyroid nodule 02/14/2024 in [facility] with BENDARAM, DONITA HICKS for Collin's thyroiditis 07/04/2024 in [facility] with ALKHALED, MANUELA for Hypoglycemia after GI (gastrointestinal) surgery (HCC) 08/09/2024 in [facility] with ALKHALED, MANUELA for Class 2 severe obesity with serious comorbidity and body mass index (BMI) of 35.0 to 35.9 in adult, unspecified obesity type (HCC) Upcoming Endocrinology Appointments - Next 365 Days Visit Type Date Time Department EST JONAH PATIENT 12/20/2024 11:20 AM [facility] EST JONAH PATIENT 01/14/2025 9:20 AM ENDO [facility] Requested Prescriptions Pending Prescriptions Disp Refills DEXCOM G7 SENSOR allison [Pharmacy Med Name: DEXCOM G7 SENSOR] 3 Si EACH EVERY 10 DAYS. Latest Ref Rng & Units 08/09/2024 01/20/2024 05/14/2022 Hemoglobin A1C Hemoglobin A1C 4.3 - 5.6 % 5.2 5.1 Hemoglobin A1C (POCT) 4.3 - 5.6 % 5.1 Latest Ref Rng & Units 01/20/2024 08/15/2023 11/18/2022 TSH TSH 0.270 - 4.200 mIU/L 1.960 2.140 1.780 Free T3: None on file in the last 12 months Free T4: None on file in the last 12 months Thyroglobulin: None on file in the last 12 months Latest Ref Rng & Units 01/20/2024 09/16/2020 Vitamin D Vitamin D 25 Hydroxy 31.0 - 80.0 ng/mL 59.2 32.2 Latest Ref Rng & Units 01/20/2024 09/21/2022 11/10/2021 Hematocrit Hematocrit 36.0 - 46.0 % 39.0 41.8 39.5 Latest Ref Rng & Units 01/20/2024 09/21/2022 05/14/2022 Creatinine Creatinine 0.58 - 0.96 mg/dL 0.86 0.85 0.79 Latest Ref Rng & Units 01/20/2024 09/21/2022 05/14/2022 eGFR EGFR >=60 mL/min/1.73m 91 93 101 Latest Ref Rng & Units 01/20/2024 09/21/2022 05/14/2022 Potassium Potassium 3.7 - 5.1 mmol/L 3.8 4.2 4.3 Testosterone: None on file in the last 12 months IGF: None on file in the last 12 months Prolactin: None on file in the last 12 months documented in this encounter [facility] 11-07-2024 Radiology Diagnostic study note [facility] Imaging Services [address] [place] [address] [id number] Abdomen/Pelvis W IV Cont ONLY MR#: [id number] Acct: [id number] Name: MARY JUNIOR Rep #: [id number] : 1990 F 34 From: Dianne Hurst MD PCP: Dr. Asif Haque MD Status: REG E R Study:Abdomen/Pelvis W IV Cont ONLY Date of E xam: 11/07/24 Exam# [id number] Ordering Dr: Nery Ortiz DO PROCEDURE: ABDOMEN/PELVIS W IV CONT ONLY 11/07/2024 REASON FOR EXAM: ABD PAIN TECHNIQUE: ABDOMEN/PELVIS W IV CONT ONLY Coronal and Sagittal reconstruction series were provided. CONTRAST: Isovue 3 7 VOLUME: 100 mL One or more dose reduction techniques were used (e.g., Automated exposure control, adjustment of the mA and/or kV according to patient size, use of iterative reconstruction technique. RADIATION DOSE SUMMARY: CTDlvol: 22 mGy DLP: 1217 mGycm COMPARISON: 09/20/2022 FINDINGS: Dependent atelectasis. Normal heart size. Small liver cyst. Status post cholecystectomy. Unremarkable pancreas, spleen, adrenal glands, kidneys. No hydronephrosis. Normal bladder. Status post hysterectomy. No retroperitoneal or pelvic adenopathy. No free air. Status post gastric bypass. Nonobstructed bowel. Normal appendix. No acute large bowel findings. No acute abdominal wall findings. CT/Abdomen/Pelvis W IV Cont ONLY IMPRESSION: No acute findings. [facility] CC: Dr. Asif Haque MD; Nadir Ortiz DO ~ Bonding Agent: Signed [facility] 11-05-[address] - 11/05/2024 [...] mcg, Iron 45 mg and calcium citrate 1106-3997 mg/day -continue current regimen, and add in [...] and snacks with an marlin; aim for 3147-7275 calories per day 8. Continue to work with your medical team to identify sources of low blood sugars and manage stressors Follow Up on 12/31 at 9:30 AM documented in this encounter [facility] 11-05-2024 History of Presen t illness Narrative [facility] Nutrition Therapy: Virtual Consult - Re-assessment I have communicated my name and active licensure. The patient s identity and physical location were verified at the time of this visit. Either the patient or their legal associate sales representative has been informed of the risks [...] mcg, Iron 45 mg and calcium citrate 7847-3978 mg/day -continue current regimen, and add in [...] and snacks with an marlin; aim for 7757-3880 calories per day 8. Continue to work [...] from foods as recommended. PA meets recommendations. ~1368-6283 calories/day excessive ~50 gm carbohydrates per day likely inadequate >120 gm protein intake/day Meets recommendations >100 oz fluid intake/day Meets recommendations Takes most recommended vitamin/minerals inadequate in some trace minerals Labs reveal normal hbA1c Resting Metabolic Rate: 1733 Energy needs for weight loss: 4312-7412 calories per day (10-15 kcal/kg CBW) Protein [...] and snacks with an marlin; aim for 5363-3681 calories per day IN PROGRESS Actions to implement interventions: see assessment Diet History: Breakfast - 2 egg whites and 1 egg (17 gm pro per patient) and sometimes 1 cheese stick Snack - danish yogurt (15 gm pro) Lunch - jocko [...] oz water Alcohol - none Vitamins/Supplements - 83413 international unit(s) vitamin A, 4000 international unit(s) [...] Last Ht 11/05/2024 : 170.2 cm (5' 7") Current weight: Last Wt 11/05/2024 : Wt [...] minutes SIGNATURE: Stef Luis RD PATIENT NAME: Mayr Junior DATE: November 05, 2024 TIME: 11:21 PM documented in this encounter [facility] 11-05-2024 Note HNO ID: [id number] Author: STEF LUIS RD Service: ? Author Type: Registered Dietitian Type: Progress Notes Filed: 11/05/2024 11:24 Note Text: [facility] Nutrition Therapy: Virtual Consult - Re-assessment I have communicated my name and active licensure. The patient?s identity and physical location were verified at the time of this visit. Either the patient or their legal associate sales representative has been informed of the risks [...] mcg, Iron 45 mg and calcium citrate 7929-2940 mg/day -continue current regimen, and add in [...] and snacks with an marlin; aim for 0389-2138 calories per day 8. Continue to work [...] from foods as recommended. PA meets recommendations. ~2833-0746 calories/day excessive ~50 gm carbohydrates per day likely inadequate >120 gm protein intake/day Meets recommendations >100 oz fluid intake/day Meets recommendations Takes most recommended vitamin/minerals inadequate in some trace minerals Labs reveal normal hbA1c Resting Metabolic Rate: 1733 Energy needs for weight loss: 1290-0691 calories per day (10-15 kcal/kg CBW) Protein needs: 85 grams protein per day (1.2 g/kg IBW) Nutrition Intervention A Tboy 07/13/24 1. Protein: Continue to strive for [...] eating and drinking (more content not included)... [facility] 10-29-2024 Telephone encounter Note ANNIKA 08/09/24 12/20/24 [facility] 10-29-2024 Miscellaneous Notes ANNIKA 08/09/24 12/20/24 documented in this encounter [facility] 09-21-2024 Evaluation note Diagnosis Onset Date Resolution Herpes zoster acute September 21, 2 025 6:10am [facility] Work Phone: 1(730) 598-479604-03-2025 NoteHNO ID: [id number] Author: INGA FERGUSON MA Service: ? Author Type: Rental Management Trainee Type: Procedures Filed: 08/09/2024 16:17 Note Text:[facility]04-03-2025 Procedure note* Inga Ferguson MA - 08/09/2024 10:01 AM EDTProcedure(s): EXTERNAL COUNSELOR AID, CGM SYS Images from the original note were not included. [facility]04-03-2025 Procedure note* Inga Ferguson MA - 08/09/2024 10:01 AM EDTProcedure(s): EXTERNAL COUNSELOR AID, CGM SYS Images from the original note were not included. documented in this encounterUniversity [facility] History of Present illness Narrative* Manuela Isbell MD - 08/09/2024 10:00 AM EDT Images from the original note were not [...] lb) 413 lbs Lowest weight 192 lbs [place] weight: 72.4 kg (159 lb 11 oz) [...] turkey deli meat and cheese. At noon: danish yogurt with berries , beef jerky No [...] Visit Medication Sig Blood-Glucose Meter,Continuous (DEXCOM G7 COUNSELOR AID) misc 1 Each as directed. Blood-Glucose Sensor (DEXCOM G7 SENSOR) allison 1 Each every 10 days. glucagon 3 mg/actuation nasal spray (BAQSIMI) Use 1 Allgood in the nose as needed for low [...] (BMI) of 60.0 to 69.9 in adult ([facility]) 10/07/2009 Esophagitis, unspecified High grade squamous intraepithelial [...] 08/19/2017 Drug use: No PHYSICAL EXAM: Mary Junior is a 34 year old year old [...] laboratory results were reviewed. Please see HPI forfurther details. IMPRESSION/PLAN: Encounter Diagnosis ICD-10-CM 1. Class 2 severe obesity with serious comorbidity and body mass index (BMI) of 35.0 to 35.9 in adult, unspecified obesity type ([facility]) E66.812 HEMOGLOBIN A1C (POC) E66.01 acarbose (PRECOSE) 25 mg tablet Z68.35 HOME BLOOD GLUCOSE MONITOR 2. Hypoglycemia after GI (gastrointestinal) surgery ([facility]) K91.2 acarbose (PRECOSE) 25 mg tablet HOME BLOOD GLUCOSE MONITOR 34 year old female with Class I obesity 3 years s/p LAPAROSCOPIC GASTRIC RESTRICTIVE SURG W/ BYPASS& FRANCISCA-EN-Y 150CM OR LESS. Total program weight loss of 221 lbs or 53.5% TBW with recent weightregain. PMH is also significant for lung nodule, [...] today. Manuela Isbell MD [facility] I spent a total of 60 minutes on the date of the service which included preparing to see the patient, [id number] patient care, completing clinical documentation, obtaining and/or reviewing separately obtained history, performing a medically appropriate examination, counseling and educating the pat ient/family/caregiver, and ordering medications, tests, or procedures. documented in this encounterUniversity [facility]als [facility]04-[facility]-2025 NoteHNO ID: [id number] Author: MANUELA ISBELL MD Service: ? Author [...] lb) 413 lbs Lowest weight 192 lbs [place] weight: 72.4 kg (159 lb 11 oz) [...] turkey deli meat and cheese. At noon: danish yogurt with berries , beef jerky No [...] Visit Medication Sig Blood-Glucose Meter,Continuous (DEXCOM G7 COUNSELOR AID) misc 1 Each as directed. Blood-Glucose Sensor (DEXCOM G7 SENSOR) allison 1 Each every 10 days. glucagon 3 mg/actuation nasal spray (BAQSIMI) Use 1 Allgood in the nose as needed for low [...] (BMI) of 60.0 to 69.9 in adult ([facility]) 10/07/2009 Esophagitis, unspecified High grade squamous intraepithelial [...] 08/19/2017 Drug use: No PHYSICAL EXAM: Mary Junior is a 34 year old year old female who looks her stated age. Vital Signs BP 127/79 (more content not included)...[facility]04-03-2025 Instructions* Patient Instructions* Manuela Isbell MD - 08/09/2024 9:52 AM EDT Thank you for choosing the [facility] Department of Endocrinology, Diabetes and Metabolism. Did you know that you need to call 48 hours in advance of your scheduled visit, if you are unable to make your appointment? The [facility] thanks you for your commitment, because patients not showing to their appointment results in a lost opportunity for patients to receive [facility] health care at the [facility]. To Cancel an appointment, please choose one of the following: - Call the Appointment Call Center at [phone] - From [employer], Go to Appointments - Cancel Appts If cancelling, consider your need to reschedule to prevent further delays in your care. To Schedule an appointment, please choose one of the following: - Call the Appointment Call Center at [phone] - From [employer], Go to Appointments - Request an Appt [...] able to eat/drink: Glucagon nasal powder is atreatment for people who have severely low blood [...] Index Carbohydrates (AVOID) Refined breakfast cereals (e.g., Kent Flakes, Rice Krispies, Cream of Rice, instant oatmeal) Regular pasta Most starchy vegetables (e.g., white potatoes, corn, winter (orange) squash) White rice, rice cakes Popcorn, pretzels, chips Some fruits (e.g., ripe bananas, pineapple, yael, watermelon, grapes) All fruit juices and sweetened drinks (e.g., sodas, sweetened iced tea) Bread, rolls, bagels, Setswana muffins, and crackers made with refined flour Sweets (e.g., candy, cake, cookies, ice cream, syrup) Heart-Healthy Fats Nuts, nut butters Avocado, guacamole Olives Most plant oils (e.g., olive, canola, peanut, soy, sunflower, sesame) Most seeds (e.g., sunflower, flax, sesame/sesame tahini) Oily fish (e.g., salmon, bluefish, mackerel, tuna, sardines) documented in this encounterUniversity [facility]als [facility] System03-[facility] Instructions* Patient Instructions* Stef Luis RD - 07/13/2024 2:08 PM EST Nutrition Action [...] and snacks with an marlin; aim for 9219-3538 calories per day Folow Up on 10/12 at 1:30 PM documented in this encounterUniversity [facility]03-[facility] History of Present illness Narrative* Stef Luis RD - 07/13/2024 1:30 PM EST [facility] Nutrition Therapy: Virtual Consult - Re-assessment I have communicated my name and active licensure. The patient s identity and physical location wereverified at the time of this visit. Either the patient or their legal associate sales representative has been informed of the risks and benefits of -- and alternatives to -- treatment through a remote evaluation andconsents to proceed with the evaluation remotely. Nutrition Diagnosis: Inconsistent carbohydrate intake, related to, lifestyle factors that interferewith the ability to regulate timing of carbohydrate [...] and snacks with an marlin; aim for 5920-2947 calories per day Nutrition Monitoring & Evaluation: [...] her sugars drop sometimes a few hours aftereating, suggesting she may be waiting too long to have her next meal snack. She tolerates Phase V diet plan with no other complaints. Patient confirms to eat slowly and separates fluids from foods asrecommended. Current PA meets recommendations. ~1500 calories/day Meets recommendations >85 gm protein intake/day Meets recommendations >1 gallon fluid intake/day Meets recommendations Consistent with appropriate vitamin/minerals inadequate in some trace minerals Labs reveal NNL Resting Metabolic Rate: 1713 Energy needs for weight loss: 6991-9481 calories per day (15-20 kcal/kg CBW) Protein needs: 85 grams protein per day (1.2 g/kg IBW) Nutrition Intervention A Toby 04/09/24 1. Protein: Continue to strive for [...] mcg, Iron 45 mg and calcium citrate 2776-8203 mg/day . It is okay to usecombination vitamin/minerals to reduce pill volume. Page 49 [...] and snacks with an marlin; aim for 1002-4219 calories per day MET Actions to implement interventions: see assessment Diet History: Breakfast - jocko protein powder (22 gm pro) mixed with 10 oz unsweetened coconut milk and egg bakewith peppers and sausage (13 gm pro) Snack - none OR 1/2 apple with PB (6 gm pro) OR danish yogurt (15 gm pro) Lunch - 3 oz lean meat (21 gm pro), vegetables Snack - none Dinner - 3-4 lean meat (21-28 gm pro), vegetables Snack - none Beverages - ~1 gallon water Alcohol - none Vitamins/Supplements - 76633 international unit(s) vitamin A, 4000 international unit(s) vitamin D,vitamin B complex, 65 mg iron, 1800 mg calcium Activity: Activities of Daily Living: Active 90%%+ of the day. 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 Author Type: Registered Dietitian Type: Progress Notes Filed: 07/13/2024 14:08 Note Text: [facility] Nutrition Therapy: Virtual Consult - Re-assessment I have communicated my name and active licensure. The patient?s identity and physical location were verified at the time of this visit. Either the patient or their legal associate sales representative has been informed of the risks [...] and snacks with an marlin; aim for 1780-1451 calories per day Nutrition Monitoring AND Evaluation: [...] Rate: 1713 Energy needs for weight loss: 7206-3854 calories per day (15-20 kcal/kg CBW) Protein needs: 85 grams protein per day (1.2 g/kg IBW) Nutrition Intervention A Toby 04/09/24 1. Protein: Continue to strive for [...] mcg, Iron 45 mg and calcium citrate 0133-9186 mg/day . It is okay to use [...] and snacks with an marlin; aim for 8587-1203 calories per day MET Actions to implement interventions: see assessment Diet History: Breakfast - jocko protein powder (22 gm pro) mixed with 10 oz unsweetened coconut milk and egg bake with peppers and sausage ( (more content not included)...[facility]03-03-2025 Telephone encounter Note* Telephone Encounter - Kimberley Ledesma - 07/09/2024 9:33 AM EST Called patient and left voicemail to notify of scheduled appointment [facility]03-03-2025 Miscellaneous Notes* Telephone Encounter - Kimberley Ledesma - 07/09/2024 9:33 AM EST Called patient and left voicemail to notify of scheduled appointment documented in this encounterUniversity Hospitals [facility] System02-26-2025 Instructions* Patient Instructions* Manuela Isbell MD - 07/04/2024 4:02 PM [...] able to eat/drink: Glucagon nasal powder is atreatment for people who have severely low blood [...] Index Carbohydrates (AVOID) Refined breakfast cereals (e.g., Kent Flakes, Rice Krispies, Cream of Rice, instant oatmeal) Regular pasta Most starchy vegetables (e.g., white potatoes, corn, winter (orange) squash) White rice, rice cakes Popcorn, pretzels, chips Some fruits (e.g., ripe bananas, pineapple, yael, watermelon, grapes) All fruit juices and sweetened drinks (e.g., sodas, sweetened iced tea) Bread, rolls, bagels, Setswana muffins, and crackers made with refined flour Sweets (e.g., candy, cake, cookies, ice cream, syrup) Heart-Healthy Fats Nuts, nut butters Avocado, guacamole Olives Most plant oils (e.g., olive, canola, peanut, soy, sunflower, sesame) Most seeds (e.g., sunflower, flax, sesame/sesame tahini) Oily fish (e.g., salmon, bluefish, mackerel, tuna, sardines) documented in this encounterUniversity Hospitals Health System02-26-2025 NoteHNO ID: [id number] Author: MANUELA ISBELL MD Service: ? Author Type: Physician Type: Progress Notes Filed: 07/04/2024 16:42 Note Text: BMI OM PostOp Virtual Visit July 04, 2024 I have communicated my name and active licensure. The patient's identity and physical location were verified at the time of this visit. Either the patient or their legal associate sales representative has been informed of the risks and benefits of -- and alternatives to -- treatment through a remote evaluation and consents to proceed with the evaluation remotely. Index Surgery Date of Surgery: 07/07/2021 Surgeon: Phyllis Suresh MD Surgical Procedure: LAPAROSCOPIC GASTRIC RESTRICTIVE SURG W/ BYPASS AND FRANCISCA-EN-Y 150CM OR LESS Pre-surgical weight: 156.5 kg (345 lb) 413 lbs Lowest weight 192 lbs [place] weight: 72.4 kg (159 lb 11 oz) [...] new onset post operativ (more content not included)...[facility]02[facility] History of Present illness Narrative* Manuela Isbell MD - 07/04/2024 3:17 PM EST BMI OM PostOp Virtual Visit July 04, 2024 I have communicated my name and active licensure. The patient's identity and physical location wereverified at the time of this visit. Either the patient or their legal associate sales representative has been informed of the risks and benefits of -- and alternatives to -- treatment through a remote evaluation andconsents to proceed with the evaluation remotely. Index Surgery Date of Surgery: 07/07/2021 Surgeon: Phyllis Suresh MD Surgical Procedure: LAPAROSCOPIC GASTRIC RESTRICTIVE SURG W/ BYPASS & FRANCISCA-EN-Y 150CM OR LESS Pre-surgical weight: 156.5 kg (345 lb) 413 lbs Lowest weight 192 lbs [place] weight: 72.4 kg (159 lb 11 oz) [...] she is eating or 2-4 hrs after sheeats. She had night time episodes twice in [...] Problem List Severe obesity (BMI >= 40) ([facility]) GERD (gastroesophageal reflux disease) Iron deficiency Morbid obesity ([facility]) Calculus of gallbladder without cholecystitis without obstruction Incidental lung nodule, > 3mm and < 8mm Panic disorder Spotting in History of loop electrosurgical excision procedure (LEEP) of cervix affecting History of labor History of depression History of depression Family history of cystic fibrosis Class 3 severe obesity without serious comorbidity with body mass index (BMI) of 60.0 to 69.9 in adult ([facility]) Resolved Hospital Problems No resolved problems to [...] changes, we will start Acarbose 25 mg withmeals. -- In case of severe hypoglycemia; Glucagon nasal powder was prescribed and sent to local pharmacy. -- Follow up in 1 month at [facility] to review BG I spent a total of 76 minutes on the date of the service which included preparing to see the patient, efhe-js-ipdh patient care, completing clinical documentation, obtaining and/or reviewing separately obtained history, performing a medically appropriate examination, counseling and educating the pat ient/family/caregiver, and ordering medications, tests, or procedures. Manuela Isbell MD documented in this encounterUniversity Hospitals Health System01-21-2025 History of Present illness Narrative* Ping Ansari, [employer].PHARMACY GENERAL MANAGER - 05/29/2024 1:00 PM EST BMI Obesity Medicine FollowUp Note Distance Health Visit May 29, 2024 I have communicated my name and active licensure. The patient's identity and physical location wereverified at the time of this visit. Either the patient or their legal associate sales representative has been informed of the risks and benefits of -- and alternatives to -- treatment through a remote evaluation andconsents to proceed with the evaluation remotely. Patient Summary: Mary Junior is 34 year old Female who presents virtually for follow-up evaluation of her obesity and related complications to the [facility] Met[facility] [place]. In our previous visits we have outlined [...] BYPASS HX 07/07/2021 [facility] LEEP PROCEDURE ([facility])_*[place] 12/2015 REMOVAL GALLBLADDER TONSILLECTOMY PRIMARY/SECONDARY <AGE 11 VAGINAL HYSTERECTOMY 02/24/2021 Dr Connell Physical Exam: Ht 170.2 cm (5' 7") LMP 08/28/2020 (Exact Date) BMI 32.58 kg/m Weight: Patient reported weight. VIDEO EXAM: (if done, performed via video enabled technology) Results: reviewed labs with the patient. Impression: Mary Junior is a 34 year old female with [...] this. She has continued follow up with OSH endocrine specialist as well. Plan: -- refer out for possible reactive hypoglycemia -- Continue f/u with BMI RD -- Hold phentermine -- Continue to check routine RYGB labs I spent a total of 35 minutes on the date of the service which included preparing to see the patient, yshs-zv-wvsl patient care, completing clinical documentation, obtaining and/or reviewing separately obtained history, performing a medically appropriate examination, and counseling and educating the patient/family/caregiver. Ping Ansari APRN.RENEE documented in this encounterUniversity Hospitals Health System01-21-2025 NoteHNO ID: [id number] Author: PING ANSARI APRN.CNP Service: ? Author Type: Nurse Practitioner Type: Progress Notes Filed: 06/05/2024 17:38 Note Text: BMI Obesity Medicine FollowUp Note Distance Health Visit May 29, 2024 I have communicated my name and active licensure. The patient's identity and physical location were verified at the time of this visit. Either the patient or their legal associate sales representative has been informed of the risks and benefits of -- and alternatives to -- treatment through a remote evaluation and consents to proceed with the evaluation remotely. Patient Summary: Mary Junior is 34 year old Female who presents virtually for follow-up evaluation of her obesity and related complications to the [facility] Metabolic [place]. In our previous visits we have outlined [...] (BMI) of 60.0 to 69.9 in adult ([facility]LY [facility]) 10/07/2009 Esophagitis, unspecified High grade squamous intraepithelial lesion of cervix 01/01/2016 Iron deficiency 02/06/2021 Neck mass fatty deposit depression PAST SURGICAL HISTORY Procedure Laterality Date ESOPHAGOGASTRODUODENOSCOPY TRANSORAL DIAGNOSTIC 03/10/2012 EGD repeat 1 year FOOT SURGERY HX 2013 GASTRIC BYPASS HX 07/07/2021 [facility] Main LEEP PROCEDURE ([facility])_*[place] 12/2015 REMOVAL GALLBLADDER TONSILLECTOMY PRIMARY/SECONDARY VAGINAL HYSTERECTOMY 02/24/2021 Dr Connell Physical Exam: Ht 170.2 cm (5' 7") LMP 08/28/2020 (Exact Date) BMI 32.58 kg/m? Weight: Patient reported weight. VIDEO EXAM: (if done, performed via video enabled technology) Results: reviewed labs with the patient. Impression: Mary Junior is a 34 year old female with [...] this. She has continued follow up with [facility] endocrine specialist as well. Plan: -- refer out for possible reactive hypoglycemia -- Continue f/u with BMI RD -- Hold phentermine -- Continue to check routine RYGB labs I spent a total of 35 minutes on the date of the service which included preparing to see the patient, vtaw-vu-eciw patient care, completing c (more content not included)...[facility]12-02-2024 Instructions* Patient Instructions* Stef Luis, RD - 04/09/2024 2:19 PM EST Nutrition [...] mcg, Iron 45 mg and calcium citrate 8168-9144 mg/day . It is okay to usecombination vitamin/minerals to reduce pill volume. Page 49 [...] and snacks with an marlin; aim for 3407-0991 calories per day Follow Up on 07/09/24 at 1 PM documented in this encounterUniversity Hospitals Health System12-02-2024 History of Present illness Narrative* Stef Luis RD - 04/09/2024 1:00 PM EST [facility] Nutrition Therapy: Virtual Consult - Re-assessment I have communicated my name and active licensure. The patient s identity and physical location wereverified at the time of this visit. Either the patient or their legal associate sales representative has been informed of the risks and benefits of -- and alternatives to -- treatment through a remote evaluation andconsents to proceed with the evaluation remotely. Nutrition Diagnosis: Altered Gastrointestinal Tract Function, related to, S/P bariatric surgery, asevidenced by patient report and apst surgical history [...] mcg, Iron 45 mg and calcium citrate 7090-2656 mg/day . It is okay to usecombination vitamin/minerals to reduce pill volume. Page 49 [...] and snacks with an marlin; aim for 2839-6707 calories per day Nutrition Monitoring & Evaluation: [...] supervision of Ping Prince CNP. She reports benefitsof the medicaiton, including less cravings and decreased [...] Rate: 1678 Energy needs for weight loss: 7867-8145 calories per day (15-20 kcal/kg CBW) Protein needs: 85 grams protein per day (1.2 g/kg IBW) Nutrition Intervention Sharyn Luis 01/06/24 1. Protein: Continue to strive for [...] mcg, Iron 45 mg and calcium citrate 0671-8637 mg/day . It is okay to usecombination vitamin/minerals to reduce pill volume. Page 49 [...] and snacks with an marlin; aim for 9664-1158 calories per day IN PROGRESS Actions to implement interventions: see assessment Diet History: Patient follows an intermittent fasting plan from 10 AM to 6 PM Breakfast - [employer] core power protein shake (26 OR 42 gm pro) Snack - none Lunch - [employer] core power protein shake (26 OR 42 gm pro) Snack - none Dinner -3-4 oz lean meat (21-28 gm pro) and vegetables Snack - none Beverages - 1 gallon water Alcohol - none Vitamins/Supplements - creatine, 03967 international unit(s) vitamin A, 2000 international unit(s) [...] Last Ht 02/20/24 : 170.2 cm (5' 7") Current weight: Last Wt 03/06/24 : 98.9 [...] SIGNATURE: Stef Luis RD PATIENT NAME: Mary Junior DATE: April 09, 2024 TIME: 2:18 PM documented in this encounterUniversity Hospitals Health System12-02-2024 NoteHNO ID: [id number] Author: STEF LUIS RD Service: ? Author Type: Registered Dietitian Type: Progress Notes Filed: 04/09/2024 14:20 Note Text: [facility] Nutrition Therapy: Virtual Consult - Re-assessment I have communicated my name and active licensure. The patient?s identity and physical location were verified at the time of this visit. Either the patient or their legal associate sales representative has been informed of the risks [...] mcg, Iron 45 mg and calcium citrate 8407-6735 mg/day . It is okay to use [...] and snacks with an marlin; aim for 6215-0617 calories per day Nutrition Monitoring AND Evaluation: [...] Rate: 1678 Energy needs for weight loss: 2686-1466 calories per day (15-20 kcal/kg CBW) Protein needs: 85 grams protein per day (1.2 g/kg IBW) Nutrition Intervention A Toby 01/06/24 1. Protein: Continue to strive for [...] mcg, Iron 45 mg and calcium citrate 8081-4621 mg/day . It is okay to use [...] and snacks with an marlin; aim for 6519-1498 calories per day IN PROGRESS Actions to implement interventions: see assessment Diet History: Patient follows an intermittent fasting plan from 10 AM to 6 PM Breakfast - [employer] core power protein shake (26 OR 42 gm pro) Snack - none Lunch - [employer] (more content not included)...[facility] 03-06-2024 History of Present illness Narrative* Ike Carmichael APRN.PHARMACY GENERAL MANAGER - 03/06/2024 7:40 AM EDT Subjective HPI HPI Mary Junior is a 33 year old female who presents today for CC of sinus pressure/drainage, ear pain. This started 1 month ago. Has tried otc medication without relief. Symptoms are worsenedby nothing. Nonsmoker. Denies possibility of being . [...] BYPASS HX 07/07/2021 [facility] LEEP PROCEDURE ([facility])_*[place] 12/2015 REMOVAL GALLBLADDER TONSILLECTOMY PRIMARY/SECONDARY <AGE 12 VAGINAL HYSTERECTOMY 02/24/2021 Dr Connell ALLERGIES Metoprolol, Doxycycline, Latex, Percocet [Oxycodone-Acetaminophen], Tomatoes, and Vicodin[Hydrocodone-Acetaminophen] MEDICATIONS Phentermine HCl 37.5 mg tablet Take [...] AMOXICILLIN 875 MG-POTASSIUM CLAVULANATE 125 MG TABLET Ike Carmichael APRN.PHARMACY GENERAL MANAGER documented in this encounterUniversity Hospitals Health System10-14-2024 History of Present illness Narrative* Ping Prince APRN.PHARMACY GENERAL MANAGER - 02/20/2024 6:49 AM EDT BMI Obesity Medicine FollowUp Note Distance Health Visit February 20, 2024 I have communicated my name and active licensure. The patient's identity and physical location wereverified at the time of this visit. Either the patient or their legal associate sales representative has been informed of the risks and benefits of -- and alternatives to -- treatment through a remote evaluation andconsents to proceed with the evaluation remotely. Patient Summary: Mary Junior is 33 year old Female who presents virtually for follow-up evaluation of her obesity and related complications to the [facility] [place]. In our previous visits we have outlined [...] to food timing or food choices. Recently metwith endocrinology who stated "thyroiditis exacerbation". She will reach out to Broadcast Supervisor to discuss hu-menopausal symptoms and PCP regarding possibly starting anxiolytic pharmacotherapy. 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 Obesity Medications: Phentermine. Start Date: 07/14/23 Weight: [...] (BMI) of 60.0 to 69.9 in adult ([facility]) 10/07/2009 Esophagitis, unspecified High grade squamous intraepithelial lesion of cervix 01/01/2016 Iron deficiency 02/06/2021 Neck mass fatty deposit depression PAST SURGICAL HISTORY Procedure Laterality Date ESOPHAGOGASTRODUODENOSCOPY TRANSORAL DIAGNOSTIC 03/10/2012 EGD repeat 1 year FOOT SURGERY HX 2013 GASTRIC BYPASS HX 07/07/2021 [facility] Main LEEP PROCEDURE ([facility])_*[place] 12/2015 REMOVAL GALLBLADDER TONSILLECTOMY PRIMARY/SECONDARY <AGE 12 VAGINAL HYSTERECTOMY 02/24/2021 Dr Connell Physical Exam: Ht 170.2 cm (5' 7") Wt 97.5 kg (215 lb) LMP 08/28/2020 (Exact Date) BMI 33.67 kg/m Weight: 97.5 kg (215 lb) Patient reported weight. VIDEO EXAM: (if done, performed via video enabled technology) Results: reviewed labs with the patient. Impression: Mary Junior is a 33 year old female with Body mass index is 33.67 kg/m . and the above obesity related complications. Body mass index is 33.67 kg/m . Currently taking Phentermine, responding well. Program weight loss of -130Lb or 53% TBW loss thus far. Follow up with [facility] for possible testing. Follow up with PCP regarding possible anxiety medication. Plan: -- continue current lifestyle -- Continue Phentermine. -- return to clinic/virtually in 3 months I spent a total of 29 minutes on the date of the service which included preparing to see the patient, nlkw-ew-jwdr patient care, completing clinical documentation, obtaining and/or reviewing separately obtained history, performing a medically appropriate examination, counseling and educating the pat ient/family/caregiver, ordering medications, tests, or procedures, and independently interpreting results (not separately reported). Some documentation from previous visit of 10/20/23 was copied and pasted, documentation has been reviewed and edited as necessary for today's visit. Ping Prince APRN.PHARMACY GENERAL MANAGER If you were prescribed a medication today, [...] won't pursue an appeal. documented in this encounterUniversity Hospitals Health System10-08-2024 Instructions* Patient Instructions* Donita Green MD - 02/14/2024 9:39 AM EDT Please do thyroid ultrasound and lab test in 1 year from the last thyroid ultrasound (in 12/2024) and follow up after documented in this encounterUniversity Hospitals Health System10-08-2024 History of Present illness Narrative* Donita Green MD - 02/14/2024 9:22 AM EDT [facility] Follow up note History of Present Illness: Mary Junior is a 33 year old female here [...] BYPASS HX 07/07/2021 [facility] Main LEEP PROCEDURE ([facility])_*[place] 12/2015 REMOVAL GALLBLADDER TONSILLECTOMY PRIMARY/SECONDARY <AGE [...] 77 Resp 17 Ht 170.2 cm (5' 7") Wt 97.5 kg (215 lb) LMP 08/28/2020 (Exact Date) [id number]% BMI 33.67 kg/m Last 3 Encounter Wt [...] 2 points Echogenicity: Hypoechoic, 2 points Shape: Aezan-fsbd-gmam, 0 points Margin: Smooth, 0 points Echogenic foci: None, 0 points TI-RADS Category: 4 ACR Recommendation: No FNA or follow-up imaging is advised. Nodule #2 Location: Right lower pole Size: 1.4 x 1.1 x 1 cm ; similar to the prior. Characteristics: Composition: Solid or almost completely solid, 2 points Echogenicity: Hypoechoic, 2 points Shape: Jappf-xsjn-snri, 0 points Margin: Smooth, 0 points Echogenic [...] Moderate Donita Green MD Endocrinology Associate Staff [facility] Endocrinology and Metabolism [place] [phone] documented in this encounterUniversity Hospitals Health System08-30-2024 Instructions* Patient Instructions* Stef Luis RD - 01/06/2024 3:32 PM [...] mcg, Iron 45 mg and calcium citrate 9976-3076 mg/day . It is okay to usecombination vitamin/minerals to reduce pill volume. Page 49 [...] and snacks with an marlin; aim for 2110-9141 calories per day Follow Up on 03/30 at 3 PM Call [phone] to follow up with Delia Prince documented in this encounterUniversity Hospitals Health System08-30-2024 History of Present illness Narrative* Stef Luis RD - 01/06/2024 3:00 PM EDT [facility] Nutrition Therapy: Virtual Consult - Re-assessment I have communicated my name and active licensure. The patient s identity and physical location wereverified at the time of this visit. Either the patient or their legal associate sales representative has been informed of the risks and benefits of -- and alternatives to -- treatment through a remote evaluation andconsents to proceed with the evaluation remotely. Nutrition Diagnosis: Altered Gastrointestinal Tract Function, related to, S/P bariatric surgery, asevidenced by patient report and past surgical history [...] mcg, Iron 45 mg and calcium citrate 1955-7222 mg/day . It is okay to usecombination vitamin/minerals to reduce pill volume. Page 49 [...] and snacks with an marlin; aim for 7030-0527 calories per day Nutrition Monitoring & Evaluation: BMI <30 Need for Follow up: 3 months as scheduled PROGRESS: 30 months post op RYGB ([place]) Net weight loss 177.4 lbs (380 lbs initial) Pre-surgery weight: 345 pounds 47 % TWL weight loss higher than expected 2 pounds weight gain since last assessment (200.6 lbs) Patient takes Phentermine under the supervision of Ping Bulow, PHARMACY GENERAL MANAGER. She reports benefits of the medication, including less cravings. Diet recall indicates a consistent meal pattern with regular meals and snacks. Patient tolerates Phase V diet plan without complaints. She confirms to eat slowly andseparates fluids from foods as recommended. Patient meets recommended 150+ minutes physical activity with a variety of exercises. 5483-6646 calories/day meets recommendations 140 gm protein intake/day meets recommendations 1 gallon fluid intake/day meets recommendations Consistent with appropriate vitamin/minerals inadequate in vitamin D Labs reveal no new labs to review Resting Metabolic Rate: 1653 Energy needs for weight loss: 0017-7574 calories per day (15-20 kcal/kg CBW) Protein needs: 85 grams protein per day (1.2 g/kg IBW) Nutrition Intervention A Toby 10/07/23 1. Protein: Continue to strive for [...] Bariatric Fusion once daily capsule MVI OR ADIKTIVO once daily capsule MVI; INCLUDE 5900-4437 mg calcium citrate per day (such as 3 powdered calcium sticks mixed with water per day) IN PROGRESS -https://www.bariatricfusion.com/products/ilf-msy-cgy-ypwqiisil-zhpusmnqfaqy-tac vqls-dgvn-ygcn -https://[employer]/collections/bariatric-multivitamin/products/multivitamin -96cn-uupt-tzhpaqm -https://[employer]/collections/calcium-supplements/products/opqsn-b-mypvazy m-duiycsv-sxbxcuh-zg-jin-xe-sticks 5. Exercise: strive for daily activity - [...] and snacks with an marlin; caloric goal= 9319-9560 per day; aim for 50-60% calories from [...] coffee Alcohol - none Vitamins/Supplements - creatine, 44895 international unit(s) vitamin A, 2000 international unit(s) [...] Ht Readings: Date: Ht: 170.2 cm (5' 7") Weight: Last 1 Encounter Wt Readings: Date: [...] SIGNATURE: Stef Luis RD PATIENT NAME: Mary Junior DATE: 01/06/2024 TIME: 3:31 PM documented in this encounterUniversity Hospitals Health System08-12-2024 History of Present illness Narrative* Christel Posey RDMS - 12/19/2023 9:15 AM EDT Radiology Service Progress Note PATIENT NAME: Mary Junior DATE OF SERVICE: December 19, 2023 TIME: 10:45 AM PATIENT IDENTITY VERIFICATION COMPLETED USING TWO (2) IDENTIFIERS: Name and Date of confirmedby patient verbally. FALL SCREENING: Has the patient had 2 falls in the last year or 1 fall with injury or currently using an Ambulatory Assistive Device (Walker, Cane, Wheelchair, Crutches, etc.)? No PATIENT GENDER DATA: Female. status: : No status: NO. PATIENT RELEVANT IMPLANT DATA REVIEWED: Not Applicable PATIENT PRESENTS WITH AN IMPLANTABLE OR ATTACHED SUPERVISOR HOUSECLEANER: No RADIOLOGY DEPARTMENT: Ultrasound PERIPHERAL IV DATA: Not applicable SIGNED BY: Christel Posey RDMS RVT December 19, 2023 10:45 AM documented in this encounterUniversity Hospitals Health System07-15-2024 Instructions* Patient Instructions* Kiera Bragg APRN.CNP - 11/21/2023 1:55 PM EDT 1) [...] needed only for migraine 4) Video or gbmq-rw-mgaa in 2 weeks documented in this encounterUniversity Hospitals Health System07-15-2024 History of Present illness Narrative* Kiera Bragg APRN.CNP - 11/21/2023 1:34 PM EDT This is a 33 year old female who presents today with: Patient presents with: Physical HISTORY OF PRESENT ILLNESS: Mary Junior is a 33 year old female. Patient [...] (BMI) of 60.0 to 69.9 in adult ([facility]) 10/07/2009 Esophagitis, unspecified High grade squamous intraepithelial lesion of cervix 01/01/2016 Iron deficiency 02/06/2021 Neck mass fatty deposit depression PAST SURGICAL HISTORY Procedure Laterality Date ESOPHAGOGASTRODUODENOSCOPY TRANSORAL DIAGNOSTIC 03/10/2012 EGD repeat 1 year FOOT SURGERY HX 2013 GASTRIC BYPASS HX 07/07/2021 [facility] Main LEEP PROCEDURE ([facility])_*[place] 12/2015 REMOVAL GALLBLADDER TONSILLECTOMY PRIMARY/SECONDARY <AGE 12 VAGINAL HYSTERECTOMY 02/24/2021 Dr Connell ALLERGIES Metoprolol, Doxycycline, Latex, Percocet [Oxycodone-Acetaminophen], Tomatoes, and Vicodin[Hydrocodone-Acetaminophen] MEDICATIONS Current Outpatient Medications Medication Sig Magnesium [...] or as needed for worsening/no improvement. Kiera Bragg APRN.CNP documented in this encounterUniversity Hospitals Health System06-13-2024 History of Present illness Narrative* Ping Prince APRN.CNP - 10/20/2023 11:30 AM EDT BMI Obesity Medicine FollowUp Note [facility] Visit October 20, 2023 I have communicated my name and active licensure. The patient's identity and physical location wereverified at the time of this visit. Either the patient or their legal associate sales representative has been informed of the risks and benefits of -- and alternatives to -- treatment through a remote evaluation andconsents to proceed with the evaluation remotely. Patient Summary: Mary Junior is 33 year old Female who presents virtually for follow-up evaluation of her obesity and related complications to the [facility] Bariatric and Metabolic [place]. In our previous visits we have outlined [...] pertinent to this visit History reviewed in [facility] Allergies: Metoprolol Hives, Shortness of Breath Comment:heart [...] BYPASS HX 07/07/2021 [facility] LEEP PROCEDURE ([facility])_*[place] 12/2015 REMOVAL GALLBLADDER TONSILLECTOMY PRIMARY/SECONDARY <AGE 12 VAGINAL HYSTERECTOMY 02/24/2021 Dr Connell Social Connections: Socially Integrated (05/10/2022) Social Connection and Isolation Panel [NHANES] Frequency of Communication with Friends and Family: More than three times a week Frequency of Social Gatherings with Friends and Family: Once a week Attends Rastafari Services: More than 4 times per year [...] reviewed labs with the patient. Impression: Mary Junior is a 33 year old year old [...] which included preparing to see the patient, mjqk-et-hqqi patient care, completing clinical documentation, obtaining and/or reviewing separately obtained history, performing a medically appropriate examination, counseling and educating the pat ient/family/caregiver, ordering medications, tests, or procedures, and independently interpreting results (not separately reported). All documentation from previous visit of 07/14/23 was copied and pasted, documentation has been reviewed and edited as necessary for today's visit. Ping Prince APRN.RENEE documented in this encounterUniversity Hospitals Health System05-31-2024 Instructions* Patient Instructions* Stef Luis RD - 10/07/2023 3:33 PM [...] Bariatric Fusion once daily capsule MVI OR [email or web address] health once daily capsule MVI; INCLUDE 0092-0563 mg calcium citrate per day (such as 3 powdered calcium sticks mixed with water per day) -https://www.bariatricfusion.com/products/dju-oxn-drg-wdpwqdoth-etgvifgxxttt-dgg nknq-hsmk-qdox -https://[employer]/collections/bariatric-multivitamin/products/multivitamin -79hz-styd-osvyxid -https://[employer]/collections/calcium-supplements/products/ortwi-k-sogrsqn e-hrbgyog-xfteqmn-in-rzl-hd-sticks 5. Exercise: strive for daily activity - [...] and snacks with an marlin; caloric goal= 7134-6681 per day; aim for 50-60% calories from carbs and 20-30% calories from fat Follow Up on 01/05 at 3 PM documented in this encounterUniversity Hospitals Health System05-31-2024 History of Present illness Narrative* Stef Luis, RD - 10/07/2023 3:00 PM EDT [facility] Nutrition Therapy: Virtual Consult - Re-assessment I have communicated my name and active licensure. The patient s identity and physical location wereverified at the time of this visit. Either the patient or their legal associate sales representative has been informed of the risks and benefits of -- and alternatives to -- treatment through a remote evaluation andconsents to proceed with the evaluation remotely. Nutrition Diagnosis: Altered Gastrointestinal Tract Function, related to, S/P bariatric surgery, asevidenced by patient report and past surgical history [...] Bariatric Fusion once daily capsule MVI OR [email or web address] health once daily capsule MVI; INCLUDE 3464-8968 mg calcium citrate per day (such as 3 powdered calcium sticks mixed with water per day) -https://www.bariatricfusion.com/products/gft-xpx-cwb-izatlmnus-fygjoranlphe-oug yijr-xegi-zacf -https://[employer]/collections/bariatric-multivitamin/products/multivitamin -81nv-gurs-skargam -https://AmeriPath/collections/calcium-supplements/products/rsqnz-m-volumcp l-ssiurmz-smaefrk-sw-gis-bw-sticks 5. Exercise: strive for daily activity - [...] and snacks with an marlin; caloric goal= 5344-8433 per day; aim for 50-60% calories from carbs and 20-30% calories from fat Nutrition Monitoring & Evaluation: BMI <30 Need for Follow up: 3 months as scheduled PROGRESS: 27 months post op RYGB ([place]) Net weight loss 180 lbs (380 lbs initial) Pre-surgery weight: 345 pounds 47 % TWL weight loss higher than expected 12 pounds weight loss since last assessment (212.6 lbs) Patient currently taking Phentermine under the supervision of Ping Prince CNP. She denies any impact of the medication. Diet recall indicates a consistent meal pattern with regular meals and snacks.Patient tolerates Phase V diet plan without complaints. [...] Rate: 1644 Energy needs for weight loss: 6736-8610 calories per day Protein needs: 85 grams protein per day (1.2 g/kg IBW) Nutrition Intervention Sharyn Luis 07/07/23 1. Protein: Continue to strive for [...] last 30 minutes. 7. Track meals with [employer] Marlin; aim for 8730-0268 calories per day MET Actions to implement interventions:see assessment Diet History: 1st Meal 10 AM: fairlife core power protein shake (26 gm pro) 1st Snack 12 PM: danish yogurt (15-20 gm pro) 2nd Meal 1 PM: 4.5 oz chicken(32 gm pro) and vegetables 2nd Snack 3 PM: fairlife protein shake (26 gm pro) OR splyt protein shake (20 gm pro) 3rd Meal 6 PM: 4 oz lean meat (28 gm pro), salad, and vegetables Beverages - 1 gallon water, sometimes coffee Alcohol - none Vitamins/Supplements - 46968 international unit(s) vitamin A, 2000 international unit(s) vitamin D,2500 mcg vitamin B12, 65 mg iron, 2400 [...] Readings: Date: Ht: 10/07/2023 170.2 cm (5' 7") Weight: Last 1 Encounter Wt Readings: Date: [...] SIGNATURE: Stef Luis RD PATIENT NAME: Mary Junior DATE: 10/07/2023 TIME: 3:32 AM documented in this encounterCleveland [id number] Instructions* Patient Instructions* Donita Green MD - 08/15/2023 10:51 AM EDT Labs at the earliest [place] Thyroid- December 2023 documented in this encounterUniversity Hospitals Health System04-08-2024 History of Present illness Narrative* Donita Green MD - 08/15/2023 10:20 AM EDT [facility] Initial Clinic Visit Note CONSULTING PHYSICIAN: Ping Prince APRN. RENEE My final recommendations will be communicated back to the requesting physician by way of shared Medical record or a letter via [place] mail Subjective: Mary Junior is a 33 year old female here [...] (BMI) of 60.0 to 69.9 in adult ([facility]) 10/07/2009 Esophagitis, unspecified High grade squamous intraepithelial lesion of cervix 01/01/2016 Iron deficiency 02/06/2021 Neck mass fatty deposit depression PAST SURGICAL HISTORY: PAST SURGICAL HISTORY Procedure Laterality Date ESOPHAGOGASTRODUODENOSCOPY TRANSORAL DIAGNOSTIC 03/10/2012 EGD repeat 1 year FOOT SURGERY HX 2013 GASTRIC BYPASS HX 07/07/2021 [facility] LEEP PROCEDURE ([facility] 12/2015 REMOVAL GALLBLADDER TONSILLECTOMY PRIMARY/SECONDARY <AGE [...] BP Cuff Size: Regular Adult) Pulse 84 Resp17 Ht 170.2 cm (5' 7") Wt 91.6 kg (202 lb) LMP 08/28/2020 (Exact Date) SpO2 98% BMI 31.64kg/m Last 3 Encounter Wt Readings: Date: Wt: [...] for Thyroid Function tests in . Thyroid, 2019:29:3:412-420.Yoan E, et al. 2017 Guidelines of the [place] Thyroid Association for the Diagnosis and Management [...] 2 points Echogenicity: Hypoechoic, 2 points Shape: Zzxug-tsks-fzzo, 0 points Margin: Smooth, 0 points Echogenic [...] 2 points Echogenicity: Hypoechoic, 2 points Shape: Uhagt-ajze-umuw, 0 points Margin: Smooth, 0 points Echogenic [...] Moderate Donita Green MD Endocrinology Associate Staff [facility] Endocrinology and Metabolism [place] [phone] documented in this encounterUniversity Hospitals Health System03-07-2024 History of Present illness Narrative* Ping Prince APRN.PHARMACY GENERAL MANAGER - 07/14/2023 11:00 AM EST Virtual Visit (Audio/Visual)"I have discussed the nature of this visit with the patient which will occur via Distance Health (Phone, Virtual Visit) and she agrees to proceed with this interaction". I have communicated my name and active licensure. The patient's identity and physical location wereverified at the time of this visit. Either the patient or their legal associate sales representative has been informed of the risks and benefits of -- and alternatives to -- treatment through a remote evaluation andconsents to proceed with the evaluation remotely. Name: Mary Junior Index Surgery Date of Surgery: 07/07/2021 Surgeon: [...] Total weight loss: 60.3 kg (133 lb) [place] weight: 72.4 kg (159 lb 11 oz) [...] course Since ANNIKA patient has established with [facility] Endocrine team regarding new thyroid nodules (3) and diagnosis of Collin's Thyroiditis. Reports weight gain after initiating prescribed Levothyroxine by [facility] offshoring manager. Increased weight, joint pain and overall fatigue with medication- patient discontinued. Reviewed labs with patient: TSH and free T4 WNL. Referral to [facility] Endocrine discussed with patient. Patient Active Problem List Severe obesity (BMI >= 40) ([facility]) GERD (gastroesophageal reflux disease) Iron deficiency Morbid [...] (BMI) of 60.0 to 69.9 in adult ([facility]) Resolved Hospital Problems No resolved problems to [...] Endocrinology LABS: Today: Reviewed with patient from [facility] New Rx: Phentermine 37.5mg x 3 months [...] No suspicious activity was identified. Ping Prince APRN.CNP documented in this encounterUniversity Hospitals Health System02-29-2024 Instructions* Patient Instructions* Stef Luis RD - 07/07/2023 4:34 PM EST Nutrition Action [...] last 30 minutes. 7. Track meals with [employer] Marlin; aim for 8952-4968 calories per day Follow Up on 10/06 at 3 PM documented in this encounterUniversity Hospitals Health System02-29-2024 History of Present illness Narrative* Stef Luis RD - 07/07/2023 3:15 PM EST [facility] Nutrition Therapy: Virtual Consult - Re-assessment I have communicated my name and active licensure. The patient s identity and physical location wereverified at the time of this visit. Either the patient or their legal associate sales representative has been informed of the risks and benefits of -- and alternatives to -- treatment through a remote evaluation andconsents to proceed with the evaluation remotely. Nutrition Diagnosis: Altered Gastrointestinal Tract Function, related to, S/P bariatric surgery, asevidenced by patient report and past surgical history [...] last 30 minutes. 7. Track meals with [employer] Marlin; aim for 3136-1419 calories per day Nutrition Monitoring & Evaluation: [...] minimal complaints. Patient has difficulties tolerating some starchessuch as rice and pasta. She confirms to [...] Rate: 1682 Energy needs for weight loss: 9523-7293 calories per day (10-15 kcal/kg CBW) Protein needs: 85 grams protein per day (1.2 g/kg IBW) Nutrition Intervention Delia Bender 08/11/21 1. Continue to take all recommended vitamin/minerals. IN PROGRESS Some examples of vitamins/mineral companies: - Bariatric Fusion: 4 Complete Chewable Multivitamins per day (2 in the AM, 2 in the PM) www.bariatricfusion.com - Taxify: 1 Bariatric Multivitamin and Calcium Citrate (total of 1200- 1500 mg/day) * take calcium citrate separately from Multivitamin with iron at least 2 hours apart and 4 hours apart from additional calcium www.AmeriPath - Bariatric Choice: 4 Complete Multivitamins (chewables) per day Www.bariatricchoice.com - Bariatric Advantage: 2 Multivitamins and 3 Calcium Citrate Chewables per day * take calcium citrate separately from Multivitamin with iron at least 2 hours apart and 4 hours apart from additional calcium Www.bariatricadvantage.Chunk Moto 2. Protein goal: 74-93 grams protein/day MET 3. Fluid goal: 64 ounces per day (no carbonation, caffeine, calories, alcohol) MET 4. Exercise goal: increase as tolerated to goal of 200 minutes/week combination cardiovascular and strength training exercise. IN PROGRESS 5. Practice mindful eating habits-take small portions, eat slowly, chew thoroughly MET Actions to implement interventions: see assessment Diet History: Breakfast - [employer] core power protein shake (26 gm pro) Snack - tuna pouch OR can (15-20 gm pro) Lunch - [employer] power protein shake (26 gm pro) Snack - banana OR apple with PB2 (6 gm pro) Dinner - 3 oz lean meat (21 gm pro) and vegetables/salad Snack - none Beverages - 119 oz water Alcohol - none Vitamins/Supplements - 69651 international unit(s) vitamin A, 2000 international unit(s) vitamin D,2500 mcg vitamin B12, 65 mg iron, 04884 mg calcium Activity: Activities of Daily Living: Active 90%%+ of the day. 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) Additional Activity: Very active (Intense exercise 6-7 days a week) cardio and strength training 60-90 minutes Anthropometrics: Height: Last 1 Encounter Ht Readings: Date: Ht: 07/07/2023 167.6 cm (5' 6") Weight: Last 1 Encounter Wt Readings: Date: Wt: 496.4 kg (212 lb 9.6 oz) Body mass [...] units SIGNATURE: Stef Luis RD PATIENT NAME: Mray Junior DATE: 07/07/2023 TIME: 4:33 pm documented in this encounterUniversity Hospitals Health System09-29-2023 Miscellaneous Notes* Telephone Encounter - Georgina Alford RN - 02/04/2023 2:56 PM EDT BMI SPECIALTY CARE COORDINATION TELEPHONE ENCOUNTER Phoned patient after received message from scheduling team. Follow up call placed to patient, no answer phone; left voice message with RN call back phone number. 02-09-2023 1636 Follow up call placed to patient, no answer phone; left voice message with RN call back phone number. documented in this encounterUniversity Hospitals Health System08-17-2023 Miscellaneous Notes* Telephone Encounter - Baljit Malone - 12/23/2022 4:13 PM EDT called the pt and rescheduled her with Nettie Canales, pt is currently refusing to see Stu Swain because of recent thyroid issues she is having. Please try to schedule with other provider(s) if possible at pt's request. documented in this encounterUniversity Hospitals Health System07-17-2023 History of Present illness Narrative* Kathya Jean RDMS - 11/22/2022 1:00 PM EDT Radiology Service Progress Note PATIENT NAME: Mary Junior DATE OF SERVICE: November 22, 2022 TIME: 1:26 PM PATIENT IDENTITY VERIFICATION COMPLETED USING TWO (2) IDENTIFIERS: Name and Date of confirmedby patient verbally. 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 Abdominal pain [...] year FOOT SURGERY HX 2013 LEEP PROCEDURE ([facility] 12/2015 TONSILLECTOMY PRIMARY/SECONDARY <AGE 11 VAGINAL [...] lb) LMP 08/28/2020 (Exact Date) SpO2 98% BMI32.14 kg/m Pleasant well appearing adult woman in [...] Thyroid feels large, possible small right nodule, non- tender, no masses, or enlargement. Carotids pulses 2+/4+ [...] Doing very well. Consider body fat composition testing\\ 4. Gastroesophageal reflux disease, unspecified whether esophagitis present - ICD9: 530.81, ICD10: K21.9 Resolved with weight loss. Follow up 1 year and as needed Debra Swain PA-C documented in this encounterUniversity Hospitals Health System05-16-2023 History of Present illness Narrative* Beth Eldridge RT(R) - 09/21/2022 1:50 PM EDT Radiology Service Progress Note PATIENT NAME: Mary Junior DATE OF SERVICE: September 21, 2022 TIME: 1:42 PM PATIENT IDENTITY VERIFICATION COMPLETED USING TWO (2) IDENTIFIERS: Name and Date of confirmedby patient verbally. FALL SCREENING: Has the patient [...] 21, 2022 1:42 PM documented in this encounterUniversity Hospitals Health System05-16-2023 History of Present illness Narrative* Caroline Miller PA-C - 09/21/2022 1:00 PM EDT Chief Complaint Patient presents with: ER F/U: [facility] ER FU 09/20/22 HPI Mary Junior is [...] her gallbladder. However she was under the impressionthat this was surgically removed which is what was noted in her notes from surgeon dating 07/2021. It was done during gastric bypass procedure. Past medical history, appointments, medications, allergies reviewed. Previous Medical History PAST MEDICAL HISTORY Diagnosis Date Abnormal Pap smear of cervix Class 3 severe obesity without serious comorbidity with body mass index (BMI) of 60.0 to 69.9 in adult ([facility]) 10/07/2009 Esophagitis, unspecified High grade squamous intraepithelial lesion of cervix 01/01/2016 Iron deficiency 02/06/2021 Neck mass fatty deposit depression Previous Surgical History PAST SURGICAL HISTORY Procedure Laterality Date ESOPHAGOGASTRODUODENOSCOPY TRANSORAL DIAGNOSTIC 03/10/2012 EGD repeat 1 year FOOT SURGERY HX 2013 LEEP PROCEDURE ([facility] 12/2015 TONSILLECTOMY PRIMARY/SECONDARY <AGE 11 VAGINAL [...] not taking: Reported on 09/21/2022) OTC PRODUCT ViepageEX ( Malik's Wart, [place] Seed, Folate, and, [...] to reach out to radiology department at [facility] for further clarification on their findings [...] attention. Caroline Miller PA-C documented in this encounterUniversity Hospitals Health System05-15-[address]alls [facility] September 20, 2022 7:11pm Note Date/Time September 20, 2022 5:20p m [facility] Medical Records Department [address] [place] [address] Emergency Department Summary 09/20/22 MR#: [id number] Acct: [id number] Name: MARY JUNIOR Rep #:[id number] : 1990 32 From: [...] specifically makes her symptoms better or worse PFSH PFSH Medical History Abnormal uterine bleeding (AUB) Anxiety [...] home: Yes additional social history: Kash SWIFT ROS ED ROS Narrative A complete review of systems was [...] % (Auto) 59.0 Lymph % (Auto) 34.9 Sabine % (Auto) 4.4 Eos % (Auto) 1.3 [...] Clarity Clear Urine pH 6.5 Ur Specific [place] 1.015 Urine Protein Negative Urine Glucose (UA) [...] 18:00 EDT Reading Location ID and State: [address] [place] [address] Tel [phone], Service support , Discharge Plan Triage Chief [...] your Primary Care Provider. Call [facility] ([phone]) or report to the closest Emergency Room. Call 911 if necessary. 09/20/221910 <Electronically signed by Ranjit Smalls MD> Cosigner Signature (if applicable): CC: Dr. Asif Haque MD ~ Signed [facility] Work Phone: [phone]) 490-117901-06-2023 History of Present illness Narrative* M Rm Swain PA-C - 05/14/2022 10:00 AM EST 32 year old female with c/o Saw Nettie 04/21/2022 f/u right ear infection [facility] clinic: treated with augmentin Notes: [...] (BMI) of 60.0 to 69.9 in adult ([facility]) 10/07/2009 Esophagitis, unspecified High grade squamous intraepithelial lesion of cervix 01/01/2016 Iron deficiency 02/06/2021 Neck mass fatty deposit depression PAST SURGICAL HISTORY Procedure Laterality Date ESOPHAGOGASTRODUODENOSCOPY TRANSORAL DIAGNOSTIC 03/10/2012 EGD repeat 1 year FOOT SURGERY HX 2013 LEEP PROCEDURE ([facility] 12/2015 TONSILLECTOMY PRIMARY/SECONDARY <AGE 12 VAGINAL [...] BASIC Debra Swain PA-C documented in this encounterUniversity Hospitals Health System12-15-2022 Miscellaneous Notes* Telephone Encounter - Debra Swain PA-C - 04/22/2022 6:32 PM EST The following approved medication requests have been transmitted electronically. Requested Prescriptions Signed Prescriptions Disp Refills meclizine (ANTIVERT) 12.5 mg tab 30 tablet 1 Sig: Take 1 tablet by mouth every 6 hours as needed (dizziness). Debra Swain PA-C documented in this encounterUniversity Hospitals Health System12-15-2022 Miscellaneous Notes* Telephone Encounter - Candida Sotelo Ma - 04/22/2022 9:58 AM EST Detailed message sent to pt * Telephone Encounter - Debra Swain PA-C - 04/22/2022 9:50 AM EST Have her review [facility]. + Flu A The following approved medication requests have been transmitted electronically. Requested Prescriptions Signed Prescriptions Disp Refills oseltamivir (TAMIFLU) 75 mg capsule 10 capsule 0 Sig: Take 1 capsule by mouth twice daily for 5 days. Authorizing Provider: Debra SWAIN PA-C documented in this encounterUniversity Hospitals Health System12-14-2022 Instructions* Patient Instructions* Nettie Canales APRN.RENEE - 04/21/2022 9:49 AM EST Flu (Influenza) [...] on your place of work. Published by [employer]. This content is reviewed periodically and is subject to change as new health information becomes available. The information is intended to inform and educate and is not a replacement for medical evaluation, advice, diagnosis or treatment by a healthcare professional. Developed by [employer] Copyright 2007 [employer] and/or one of its subsidiaries. All Rights Reserved. Special Instructions: Tamiflu as instructed Copyright Clinical Reference Systems 2007 Women's [employer] Advisor Copyright 2008 The [employer]. All rights reserved. - www.Biomoda documented in this encounterUniversity Hospitals Health System12-14-2022 History of Present illness Narrative* Nettie Canales APRN.CNP - 04/21/2022 9:36 AM EST This is a 31 year old female who presents today with: Patient presents with: Recheck: Follow up- R ear infection; was seen at [facility] on 04/19 and started on antibiotic (Augmentin 875mg); fever last evening of 103.5 HISTORY OF PRESENT ILLNESS: Mary Fournier is a 31 year old female. Patient presents with: Recheck: Follow up- R ear infection; was seen at [facility] on 04/19 and started on antibiotic (Augmentin [...] (BMI) of 60.0 to 69.9 in adult ([facility]) 10/07/2009 Esophagitis, unspecified High grade squamous intraepithelial lesion of cervix 01/01/2016 Iron deficiency 02/06/2021 Neck mass fatty deposit depression PAST SURGICAL HISTORY Procedure Laterality Date ESOPHAGOGASTRODUODENOSCOPY TRANSORAL DIAGNOSTIC 03/10/2012 EGD repeat 1 year FOOT SURGERY HX 2013 LEEP PROCEDURE ([facility] 12/2015 TONSILLECTOMY PRIMARY/SECONDARY <AGE 11 VAGINAL [...] as needed for worsening/no improvement. Nettie Canales APRN.PHARMACY GENERAL MANAGER documented in this encounterUniversity Hospitals Health System11-02-2022 History of Present illness Narrative* Josiah Gould [...] 875 MG-POTASSIUM CLAVULANATE 125 MG TABLET Josiah Goudl MD documented in this encounterUniversity Hospitals Health System10-06-2022 Instructions* Patient Instructions* Debra Swain PA-C - [...] on in 10 days. documented in this encounterUniversity Hospitals Health System10-06-2022 History of Present illness Narrative* Debra Swain [...] year FOOT SURGERY HX 2013 LEEP PROCEDURE ([facility])_*[place] 12/2015 TONSILLECTOMY PRIMARY/SECONDARY <AGE 11 VAGINAL [...] (Bmi) of 60.0 to 69.9 in Adult ([facility]) Spotting in History of Loop Electrosurgical Excision Procedure (Leep) of Cervix Affecting History of Labor History of Depression History of Depression Family History of Cystic Fibrosis Panic Disorder Calculus of Gallbladder Without Cholecystitis Without Obstruction Incidental Lung Nodule, > 3mm and < 8mm Morbid Obesity ([facility]) Iron Deficiency Gerd (Gastroesophageal Reflux Disease) Severe Obesity (Bmi >= 40) ([facility]) Current Outpatient Medications Medication Sig Dispense Refill [...] months. Debra Swain PA-C documented in this encounterUniversity Hospitals Health System07-27-2022 History of Present illness Narrative* Asia Eduardo, PhD - 12/02/2021 8:17 AM EDT [facility] DEPARTMENT OF PSYCHIATRY AND PSYCHOLOGY[facility] Bariatric Behavioral Services Progress Note December 02, 2021 Billing codes: ABDI CALIXTO 72771 Jayce CPT Code: 16234 Brief Emotional/Behavioral Assessment with scoring/documentation [id number] Virtual Group Psychotherapy Time initiated session: 12:00 [...] also previously provided to the patient via [employer]. Platform: [employer] Session #: 1 (with undersigned psychologist) Index [...] better, improved fitness Patient mood described as "good." Affect is Appropriate and Mood congruent. Patient [...] Asia Eduardo, Ph.D., Psychologist documented in this encounterUniversity Hospitals Health System07-09-2022 Miscellaneous Notes* Telephone Encounter - M Rm Swain PA-C - 11/14/2021 11:03 AM EDT [...] Provider: Debra SWAIN PA-C documented in this encounterUniversity Hospitals Health System07-05-2022 History of Present illness Narrative* Debra Swain PA-C - 11/10/2021 8:18 AM EDT 31 year old female with c/o s/p bariatric surgery with hair loss like never before, leg cramps. Sticking to 110g protein, 1000 fang per day. Using bariatric vitamins, sublingual B12 [...] (BMI) of 60.0 to 69.9 in adult ([facility]) 10/07/2009 Esophagitis, unspecified High grade squamous intraepithelial lesion of cervix 01/01/2016 Iron deficiency 02/06/2021 Neck mass fatty deposit depression PAST SURGICAL HISTORY Procedure Laterality Date ESOPHAGOGASTRODUODENOSCOPY TRANSORAL DIAGNOSTIC 03/10/2012 EGD repeat 1 year FOOT SURGERY HX 2013 LEEP PROCEDURE ([facility])_*[place] 12/2015 TONSILLECTOMY PRIMARY/SECONDARY <AGE 11 VAGINAL [...] (Bmi) of 60.0 to 69.9 in Adult ([facility]) Spotting in History of Loop Electrosurgical Excision Procedure (Leep) of Cervix Affecting History of Labor History of Depression History of Depression Family History of Cystic Fibrosis Panic Disorder Calculus of Gallbladder Without Cholecystitis Without Obstruction Incidental Lung Nodule, > 3mm and < 8mm Morbid Obesity ([facility]) Iron Deficiency Gerd (Gastroesophageal Reflux Disease) Severe Obesity (Bmi >= 40) ([facility]) Current Outpatient Medications Medication Sig Dispense Refill [...] CREAM Debra Swain PA-C documented in this encounterUniversity Hospitals Health System05-26-2022 History of Present illness Narrative* Scooby Pollock MD - 10/01/2021 7:30 PM EDT The patient did not show up for this appointment. * Mary Beth Greenfield RD - 09/29/2021 7:28 AM EDT documented in this encounterUniversity Hospitals Health System05-23-2022 Nurse Note* Cathy Mac MA - 09/28/2021 [...] supplements. Cathy Mac MA documented in this encounterUniversity Hospitals Health System04-06-2022 History of Present illness Narrative* Pedro Jimenez MD - 08/12/2021 10:58 AM EDT Metabolic Surgery Postoperative Virtual Clinic Visit Name: Mary Fournier This visit was performed virtually via Zoom technology due to the COVID-19 epidemic as an effort toprotect patients and minimize exposure.? Virtual Visit (Audio/Visual)"I have discussed the nature of this visit with the patient which will occur via Distance Health (Phone, Virtual Visit) and she agrees to proceed with this interaction". Index Surgery Date of Surgery: 07/07/2021 Surgeon: [...] & Bariatric Surgery Fellow Bariatric & Metabolic [place] [facility] documented in this encounterUniversity Hospitals Health System04-05-2022 Instructions* Patient Instructions* Summer Bender, RD - 08/11/2021 12:51 PM EDT Your [...] AM, 2 in the PM) www.bariatricfusion.com - Taxify: 1 Bariatric Multivitamin and Calcium Citrate (total of 1200- 1500 mg/day) * take calcium citrate separately from Multivitamin with iron at least 2 hours apart and 4 hours apart from additional calcium [email or web address] [employer]Chunk Moto - Bariatric Choice: 4 Complete Multivitamins (chewables) per day Www.bariatricchoice.com - Bariatric Advantage: 2 Multivitamins and 3 Calcium Citrate Chewables per day * take calcium citrate separately from Multivitamin with iron at least 2 hours apart and 4 hours apart from additional calcium [email or web address] 2. Protein goal: 74-93 grams protein/day 3. Fluid goal: 64 ounces per day (no carbonation, caffeine, calories, alcohol) 4. Exercise goal: increase as tolerated to goal of 200 minutes/week combination cardiovascular and strength training exercise. 5. Practice mindful eating habits-take small portions, eat slowly, chew thoroughly Patient is to follow-up: 2 months to access adherence to goals, [phone] [facility] of Present illness Narrative* Summer Bender [...] Rate: 2137 Energy needs for weight loss 2214-8874 (10-15 fang/kg current weight) Protein needs: 74-93 grams protein [...] AM, 2 in the PM) [email or web address] - [email or web address] Health: 1 Bariatric Multivitamin and Calcium Citrate (total of 1200- 1500 mg/day) * take calcium citrate separately from Multivitamin with iron at least 2 hours apart and 4 hours apart from additional calcium [email or web address] Moto - Bariatric Choice: 4 Complete Multivitamins (chewables) per day [email or web address] - Bariatric Advantage: 2 Multivitamins and 3 Calcium Citrate Chewables per day * take calcium citrate separately from Multivitamin with iron at least 2 hours apart and 4 hours apart from additional calcium [email or web address] 2. Protein goal: 74-93 grams protein/day 3. Fluid goal: 64 ounces per day (no carbonation, caffeine, calories, alcohol) 4. Exercise goal: increase as tolerated to goal of 200 minutes/week combination cardiovascular and strength training exercise. 5. Practice mindful eating habits-take small portions, eat slowly, chew thoroughly Patient is to follow-up: 2 months to access adherence to goals, [phone] Nutrition Monitoring & Evaluation: BMI < 50 Criteria: weight check Need for Follow up: 2 months Appointment Start Time: 11:45 AM Appointment End Time: 12:36 Time Spent on Consult: 51 minutes - Group Summer Bender RD documented in this encounter[facility] History of Past illness Narrative* Problem Noted Date Resolved Date 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 01/01/2016 09/08/2020 Overview: S/p LEEP bx, follow up PAP in 2017 was negative Difficulty walking 12/14/2012 10/22/2015 Fracture of 5th metatarsal 07/21/201210/21 Esophagitis, unspecified 03/10/2012 016 Weight gain 08/21/2009 10/22/2015 Obesity 08/21/2009 10/22/2015 documented as of this encounter (statuses as of 08/11/2021) [facility] Narrative* Problem Noted Date Resolved Date 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 01/01/2016 09/08/2020 Overview: S/p LEEP bx, follow up PAP in 2017 was negative Difficulty walking 12/14/2012 10/22/2015 Fracture of 5th metatarsal 07/21/201210/21 Esophagitis, unspecified 03/10/2012 016 Weight gain 08/21/2009 10/22/2015 Obesity 08/21/2009 10/22/2015 documented as of this encounter (statuses as of 08/12/2021) [facility] Narrative* Problem Noted Date Resolved Date 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 01/01/2016 09/08/2020 Overview: S/p LEEP bx, follow up PAP in 2017 was negative Difficulty walking 12/14/2012 10/22/2015 Fracture of 5th metatarsal 07/21/201210/21 Esophagitis, unspecified 03/10/2012 016 Weight gain 08/21/2009 10/22/2015 Obesity 08/21/2009 10/22/2015 documented as of this encounter (statuses as of 10/01/2021) [facility] Narrative* Problem Noted Date Resolved Date 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 01/01/2016 09/08/2020 Overview: S/p LEEP bx, follow up PAP in 2017 was negative Difficulty walking 12/14/2012 10/22/2015 Fracture of 5th metatarsal 07/21/201210/21 Esophagitis, unspecified 03/10/2012 016 Weight gain 08/21/2009 10/22/2015 Obesity 08/21/2009 10/22/2015 documented as of this encounter (statuses as of 11/10/2021) [facility] Narrative* Problem Noted Date Resolved Date 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 01/01/2016 09/08/2020 Overview: S/p LEEP bx, follow up PAP in 2017 was negative Difficulty walking 12/14/2012 10/22/2015 Fracture of 5th metatarsal 07/21/201210/21 Esophagitis, unspecified 03/10/2012 016 Weight gain 08/21/2009 10/22/2015 Obesity 08/21/2009 10/22/2015 documented as of this encounter (statuses as of 11/14/2021) [facility] Narrative* Problem Noted Date Resolved Date 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 01/01/2016 09/08/2020 Overview: S/p LEEP bx, follow up PAP in 2017 was negative Difficulty walking 12/14/2012 10/22/2015 Fracture of 5th metatarsal 07/21/201210/21 Esophagitis, unspecified 03/10/2012 016 Weight gain 08/21/2009 10/22/2015 Obesity 08/21/2009 10/22/2015 documented as of this encounter (statuses as of 11/14/2021) [facility] Narrative* Problem Noted Date Resolved Date 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 01/01/2016 09/08/2020 Overview: S/p LEEP bx, follow up PAP in 2017 was negative Difficulty walking 12/14/2012 10/22/2015 Fracture of 5th metatarsal 07/21/201210/21 Esophagitis, unspecified 03/10/2012 016 Weight gain 08/21/2009 10/22/2015 Obesity 08/21/2009 10/22/2015 documented as of this encounter (statuses as of 12/07/2021) [facility] Narrative* Problem Noted Date Resolved Date 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 01/01/2016 09/08/2020 Overview: S/p LEEP bx, follow up PAP in 2017 was negative Difficulty walking 12/14/2012 10/22/2015 Fracture of 5th metatarsal 07/21/201210/21 Esophagitis, unspecified 03/10/2012 016 Weight gain 08/21/2009 10/22/2015 Obesity 08/21/2009 10/22/2015 documented as of this encounter (statuses as of 02/11/2022) [facility] Narrative* Problem Noted Date Resolved Date 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 01/01/2016 09/08/2020 Overview: S/p LEEP bx, follow up PAP in 2017 was negative Difficulty walking 12/14/2012 10/22/2015 Fracture of 5th metatarsal 07/21/201210/21 Esophagitis, unspecified 03/10/2012 016 Weight gain 08/21/2009 10/22/2015 Obesity 08/21/2009 10/22/2015 documented as of this encounter (statuses as of 03/10/2022) [facility] Narrative* Problem Noted Date Resolved Date 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 01/01/2016 09/08/2020 Overview: S/p LEEP bx, follow up PAP in 2017 was negative Difficulty walking 12/14/2012 10/22/2015 Fracture of 5th metatarsal 07/21/201210/21 Esophagitis, unspecified 03/10/2012 016 Weight gain 08/21/2009 10/22/2015 Obesity 08/21/2009 10/22/2015 documented as of this encounter (statuses as of 04/21/2022) [facility] Narrative* Problem Noted Date Resolved Date 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 01/01/2016 09/08/2020 Overview: S/p LEEP bx, follow up PAP in 2017 was negative Difficulty walking 12/14/2012 10/22/2015 Fracture of 5th metatarsal 07/21/201210/21 Esophagitis, unspecified 03/10/2012 016 Weight gain 08/21/2009 10/22/2015 Obesity 08/21/2009 10/22/2015 documented as of this encounter (statuses as of 04/22/2022) [address]25-2016 History of Past illness Narrative* Problem Noted Date Resolved Date 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 01/01/2016 09/08/2020 Overview: S/p LEEP bx, follow up PAP in 2017 was negative Difficulty walking 12/14/2012 10/22/2015 Fracture of 5th metatarsal 07/21/201210/21 Esophagitis, unspecified 03/10/2012 016 Weight gain 08/21/2009 10/22/2015 Obesity 08/21/2009 10/22/2015 documented as of this encounter (statuses as of 05/15/2022) [address]25-2016 History of Past illness Narrative* Problem Noted Date Resolved Date 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 01/01/2016 09/08/2020 Overview: S/p LEEP bx, follow up PAP in 2017 was negative Difficulty walking 12/14/2012 10/22/2015 Fracture of 5th metatarsal 07/21/201210/21 Esophagitis, unspecified 03/10/2012 016 Weight gain 08/21/2009 10/22/2015 Obesity 08/21/2009 10/22/2015 documented as of this encounter (statuses as of 06/07/2022) [address]25-2016 History of Past illness Narrative* Problem Noted Date Resolved Date 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 01/01/2016 09/08/2020 Overview: S/p LEEP bx, follow up PAP in 2017 was negative Difficulty walking 12/14/2012 10/22/2015 Fracture of 5th metatarsal 07/21/201210/21 Esophagitis, unspecified 03/10/2012 016 Weight gain 08/21/2009 10/22/2015 Obesity 08/21/2009 10/22/2015 documented as of this encounter (statuses as of 09/21/2022) [facility] N[facility]* Problem Noted Date Diagnosed Date Resolved Date High grade squamous intraepi thelial lesion of cervix 01/01/2016 09/08/2020 Overview: S/p LEEP bx, follow up PAP in 2017 was negative Difficulty walking 12/14/2012 6 Fracture of 5th metatarsal 07/21/2012 0 10/22/2015 Esophagitis, unspecified 03/10/2012 Weight gain 08/21/2009 10/22/2015 Obesity 08/21/2009 10/22/2015 documented as of this encounter (statuses as of 11/19/2022) [facility] Narrative* Problem Noted Date Diagnosed Date Resolved Date High grade squamous intraepi thelial lesion of cervix 01/01/2016 09/08/2020 Overview: S/p LEEP bx, follow up PAP in 2016 was negative Difficulty walking 12/14/2012 6 Fracture of 5th metatarsal 07/21/2012 0 10/22/2015 Esophagitis, unspecified 03/10/2012 Weight gain 08/21/2009 10/22/2015 Obesity 08/21/2009 10/22/2015 documented as of this encounter (statuses as of 12/24/2022) [facility] Narrative* Problem Noted Date Diagnosed Date Resolved Date High grade squamous intraepi thelial lesion of cervix 01/01/2016 09/08/2020 Overview: S/p LEEP bx, follow up PAP in 2017 was negative Difficulty walking 12/14/2012 6 Fracture of 5th metatarsal 07/21/2012 0 10/22/2015 Esophagitis, unspecified 03/10/2012 Weight gain 08/21/2009 10/22/2015 Obesity 08/21/2009 10/22/2015 documented as of this encounter (statuses as of 02/11/2023) [facility] Narrative* Problem Noted Date Diagnosed Date Resolved Date High grade squamous intraepi thelial lesion of cervix 01/01/2016 09/08/2020 Overview: S/p LEEP bx, follow up PAP in 2016 was negative Difficulty walking 12/14/2012 6 Fracture of 5th metatarsal 07/21/2012 0 10/22/2015 Esophagitis, unspecified 03/10/2012 Weight gain 08/21/2009 10/22/2015 Obesity 08/21/2009 10/22/2015 documented as of this encounter (statuses as of 03/13/2023) [facility] Narrative* Problem Noted Date Diagnosed Date Resolved Date High grade squamous intraepi thelial lesion of cervix 01/01/2016 09/08/2020 Overview: S/p LEEP bx, follow up PAP in 2017 was negative Difficulty walking 12/14/2012 6 Fracture of 5th metatarsal 07/21/2012 0 10/22/2015 Esophagitis, unspecified 03/10/2012 Weight gain 08/21/2009 10/22/2015 Obesity 08/21/2009 10/22/2015 documented as of this encounter (statuses as of 07/08/2023) [facility] Narrative* Problem Noted Date Diagnosed Date Resolved Date High grade squamous intraepi thelial lesion of cervix 01/01/2016 09/08/2020 Overview: S/p LEEP bx, follow up PAP in 2017 was negative Difficulty walking 12/14/2012 6 Fracture of 5th metatarsal 07/21/2012 0 10/22/2015 Esophagitis, unspecified 03/10/2012 Weight gain 08/21/2009 10/22/2015 Obesity 08/21/2009 10/22/2015 documented as of this encounter (statuses as of 07/14/2023) [facility] Narrative* Problem Noted Date Diagnosed Date Resolved Date High grade squamous intraepi thelial lesion of cervix 01/01/2016 09/08/2020 Overview: S/p LEEP bx, follow up PAP in 2017 was negative Difficulty walking 12/14/2012 6 Fracture of 5th metatarsal 07/21/2012 0 10/22/2015 Esophagitis, unspecified 03/10/2012 Weight gain 08/21/2009 10/22/2015 Obesity 08/21/2009 10/22/2015 documented as of this encounter (statuses as of 08/15/2023) [facility] Diagnosis Impaired intestinal absorption- Primary Unspecified intestinal malabsorption S/P gastric bypass Bariatric surgery status Body mass index 50.0-59.9, adult (HCC) Body Mass Index 50.0-59.9, adult Dietary counseling and surveillance Dietary surveillance and counseling [facility] Diagnosis Body mass index 50.0-59.9, adult (HCC)- Primary Body Mass Index 50.0-59.9, adult S/P gastric bypass Bariatric surgery status [facility] Diagnosis NO SHOW- Primary [facility]* Diagnosis Hair loss- Primary Alopecia, unspecified Fatigue, unspecified type S/P bariatric surgery Bariatric surgery status Leg cramps Cramp of limb Cystic acne Other acne [facility] Diagnosis Iron deficiency anemia, unspecified iron deficiency anemia type- Primary Folic acid deficiency Other B-complex deficiencies S/P bariatric surgery Bariatric surgery status documented in this encounter [facility] note* Diagnosis Psychological factors affecting medical condition- Primary Psychic factors associated with diseases classified elsewhere Postgastric surgery syndrome Postgastric surgery syndromes documented in this encounter [facility] note* Diagnosis Iron deficiency anemia, unspecified iron deficiency anemia type- Primary Folic acid deficiency Other B-complex deficiencies S/P bariatric surgery Bariatric surgery status Hair loss Alopecia, unspecified Fatigue, unspecified type Leg cramps Cramp of limb Cystic acne Other acne Cellulitis of skin Cellulitis and abscess of unspecified site documented in this encounter [facility] note* Diagnosis Acute non-recurrent sinusitis, unspecified location- Primary documented in this encounter [facility] note* Diagnosis Upper respiratory symptom- Primary Other symptoms involving respiratory system and chest documented in this encounter [facility] note* Diagnosis Influenza A- Primary Influenza with other respiratory manifestations documented in this encounter [facility] note* Diagnosis Vertigo- Primary Dizziness and giddiness documented in this encounter [facility] note* Diagnosis S/P bariatric surgery- Primary Bariatric surgery status Hair loss Alopecia, unspecified Cystic acne Other acne Influenza A Influenza with other respiratory manifestations Loss of libido Decreased libido Prediabetes Other abnormal glucose Screening for lipid disorders documented in this encounter [facility] note* Diagnosis Onset Date Resolution Status Acute pharyngitis acute Contact with or suspected ex posure to other viral communicable disease acute [facility] Work Phone: Evaluation note* Diagnosis RUQ pain- Primary Abdominal pain, right upper quadrant Right flank pain Abdominal pain, unspecified site Nausea Nausea alone Epigastric pain Abdominal pain, epigastric Acute constipation Unspecified constipation documented in this encounter [facility] note* Diagnosis Panic disorder- Primary Panic disorder without agoraphobia Thyromegaly Goiter, unspecified Morbid obesity (HCC) Morbid obesity Gastroesophageal reflux disease, unspecified whether esophagitis present documented in this encounter [facility] note* Diagnosis Thyromegaly Goiter, unspecified documented in this encounter [facility] note* Diagnosis Onset Date Resolution Status Multiple thyroid nodules acu te Collin's thyroiditis 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 Work Phone: [facility] note* Diagnosis Class 3 obesity (HCC)- Primary Dietary counseling and surveillance Dietary surveillance and counseling S/P gastric bypass Bariatric surgery status documented in this encounter [facility] note* Diagnosis S/P gastric bypass- Primary Bariatric surgery status Collin's thyroiditis Chronic lymphocytic thyroiditis documented in this encounter [facility] note* Diagnosis Thyroid nodule- Primary Nontoxic uninodular goiter Collin's thyroiditis Chronic lymphocytic thyroiditis documented in this encounter [facility] note* Diagnosis Class 1 obesity- Primary Dietary counseling and surveillance Dietary surveillance and counseling S/P gastric bypass Bariatric surgery status Impaired intestinal absorption Unspecified intestinal malabsorption documented in this encounter [facility] note* Diagnosis Class 1 obesity- Primary documented in this encounter [facility] note* Diagnosis Tinea cruris- Primary Dermatophytosis of groin and perianal area Migraine with aura, not intractable, without status migrainosus Gastroesophageal reflux disease without esophagitis Esophageal reflux Other chronic pain documented in this encounter [facility] note* Diagnosis Thyroid nodule Nontoxic uninodular goiter documented in this encounter [facility] note* Diagnosis Pre-operative examination- Primary Preoperative examination, [...] Unspecified intestinal malabsorption documented in this encounter [facility] note* Diagnosis Pre-operative examination- Primary Preoperative examination, unspecified Morbid obesity (HCC) Morbid obesity Incidental lung nodule, > 3mm and < 8mm Solitary pulmonary nodule Iron deficiency Iron deficiency anemia, unspecified Panic disorder Panic disorder without agoraphobia Gastroesophageal reflux disease, unspecified whether esophagitis present S/P gastric bypass- Primary Bariatric surgery status documented in this encounter [facility] note* Diagnosis Pre-operative examination- Primary Preoperative examination, [...] constipation Unspecified constipation documented in this encounter [facility] note* Diagnosis Pre-operative examination- Primary Preoperative examination, unspecified Morbid obesity (HCC) Morbid obesity Incidental lung nodule, > 3mm and < 8mm Solitary pulmonary nodule Iron deficiency Iron deficiency anemia, unspecified Panic disorder Panic disorder without agoraphobia Gastroesophageal reflux disease, unspecified whether esophagitis present Collin's thyroiditis- Primary Chronic lymphocytic thyroiditis Thyroid nodule Nontoxic uninodular goiter documented in this encounter [facility] note* Diagnosis Pre-operative examination- Primary Preoperative examination, unspecified Morbid obesity (HCC) Morbid obesity Incidental lung nodule, > 3mm and < 8mm Solitary pulmonary nodule Iron deficiency Iron deficiency anemia, unspecified Panic disorder Panic disorder without agoraphobia Gastroesophageal reflux disease, unspecified whether esophagitis present Class 1 obesity- Primary documented in this encounter [facility] note* Diagnosis Pre-operative examination- Primary Preoperative examination, unspecified Morbid obesity (HCC) Morbid obesity Incidental lung nodule, > 3mm and < 8mm Solitary pulmonary nodule Iron deficiency Iron deficiency anemia, unspecified Panic disorder Panic disorder without agoraphobia Gastroesophageal reflux disease, unspecified whether esophagitis present Bacterial sinusitis- Primary Unspecified sinusitis (chronic) documented in this encounter [facility] note* Diagnosis Pre-operative examination- Primary Preoperative examination, [...] Unspecified intestinal malabsorption documented in this encounter [facility] note* Diagnosis Pre-operative examination- Primary Preoperative examination, unspecified Morbid obesity (HCC) Morbid obesity Incidental lung nodule, > 3mm and < 8mm Solitary pulmonary nodule Iron deficiency Iron deficiency anemia, unspecified Panic disorder Panic disorder without agoraphobia Gastroesophageal reflux disease, unspecified whether esophagitis present S/P gastric bypass- Primary Bariatric surgery status documented in this encounter [facility] note* Diagnosis Pre-operative examination- Primary Preoperative examination, unspecified Morbid obesity (HCC) Morbid obesity Incidental lung nodule, > 3mm and < 8mm Solitary pulmonary nodule Iron deficiency Iron deficiency anemia, unspecified Panic disorder Panic disorder without agoraphobia Gastroesophageal reflux disease, unspecified whether esophagitis present Hypoglycemia after GI (gastrointestinal) surgery- Primary Other and unspecified postsurgical nonabsorption documented in this encounter [facility] note* Diagnosis Pre-operative examination- Primary Preoperative examination, unspecified Morbid obesity (HCC) Morbid obesity Incidental lung nodule, > 3mm and < 8mm Solitary pulmonary nodule Iron deficiency Iron deficiency anemia, unspecified Panic disorder Panic disorder without agoraphobia Gastroesophageal reflux disease, unspecified whether esophagitis present Hypoglycemia after GI (gastrointestinal) surgery- Primary Other and unspecified postsurgical nonabsorption documented in this encounter [facility] note* Diagnosis Pre-operative examination- Primary Preoperative examination, [...] Unspecified intestinal malabsorption documented in this encounter [facility] note* Diagnosis Pre-operative examination- Primary Preoperative examination, [...] unspecified postsurgical nonabsorption documented in this encounter [facility] noteNo assessment information availableK[facility] Work Phone: Evaluation note* Diagnosis Pre-operative [...] Unspecified intestinal malabsorption [facility] Diagnosis Pre-operative examination- Primary Preoperative examination, [...] malabsorption [facility] Diagnosis Pre-operative examination- Primary Preoperative examination, unspecified Morbid obesity (HCC) Morbid obesity Incidental lung nodule, > 3mm and < 8mm Solitary pulmonary nodule Iron deficiency Iron deficiency anemia, unspecified Panic disorder Panic disorder without agoraphobia Gastroesophageal reflux disease, unspecified whether esophagitis present Hypoglycemia after GI (gastrointestinal) surgery (HCC)- Primary Other and unspecified postsurgical nonabsorption Status post bariatric surgery Bariatric surgery status Class 2 severe obesity with serious comorbidity and body mass index (BMI) of 38.0 to 38.9 in adult, unspecified obesity type (HCC) Abdominal pain, unspecified abdominal location [facility] Instructions Your lab work showed no clinically significant findings and your CT scan showed no sign of intestinal infection perforation or abscess. Your workup and exam/history indicate you have a viral stomach infection. This will resolve spontaneously and will last anywhere from 12 hours to 7 days with the average being 3 days. Take the medication as directed to help control symptoms and keep yourself well-hydrated. Return to the ER should you have any further concerns [facility] Work Phone: Hospital Discharge instructionsAdditional Instructions Do not drink any alcohol while taking the antibiotics. Start with a liquid diet and advance as tolerated.[facility] Work Phone: Reason for referral (narrative)* Diagnostic Procedure Only (Routine) - Closed Specialty Diagnoses / Procedures Referred By Fabi t Referred To Contact XR IMAGING Diagnoses Right flank pain RUQ pain Epigastric pain Acute constipation Procedures XR ABDOMEN 1V SUPINE RADIOLOGIC EXAM ABDOMEN 1 VIEW Caroline Miller PA-C [address] [place] [address] Xr Imaging Referral ID Status Reason Start Date Expiration Date V isits Requested Visits Authorized [id number] Closed Auto-Generate d Referral 09/21/2022 10/21/2023 1 1 * Diagnostic Procedure Only (Routine) - Authorized Specialty Diagnoses / Procedures Referred By Contac t Referred To Contact US IMAGING Diagnoses Right flank pain Procedures US ABD RIGHT UPPER QUADRANT US ABDOMINAL REAL TIME W/IMAGE LIMITED Caroline Miller PA-C [address] [place] [address] Us Imaging Referral ID Status Reason Start Date Expiration Date Visits Requested Visits Authorized [id number] Authorized Auto-Generat ed Referral 09/21/2022 10/21/2023 1 1 [facility] for referral (narrative)* Diagnostic Procedure Only (Routine) - Authorized Specialty Diagnoses / Procedures Referred By Contac t Referred To Contact US IMAGING Diagnoses Thyromegaly Procedures US THYROID/PARATHYROID US SOFT TISSUE HEAD & NECK REAL TIME IMGE Debra Doshi PA-C [address] [place] [address] Us Imaging Referral ID Status Reason Start Date Expiration Date Visits Requested Visits Authorized [id number] Authorized Auto-Generat ed Referral 11/18/2022 12/18/2023 1 1 [facility] for referral (narrative)* Diagnostic Procedure Only (Routine) - Closed Specialty Diagnoses / Procedures Referred By Contac t Referred To Contact US IMAGING Diagnoses Thyromegaly Procedures US THYROID/PARATHYROID US SOFT TISSUE HEAD & NECK REAL TIME IMGE Debra Doshi PA-C [address] [place] [address] [place] [address] Referral ID Status Reason Start Date Expiration Date V isits Requested Visits Authorized [id number] Closed Auto-Generate d Referral 11/18/2022 12/18/2023 1 1 [facility] for referral (narrative)* Diagnostic Procedure Only (Routine) - Authorized Specialty Diagnoses / Procedures Referred By Contac t Referred To Contact US IMAGING Diagnoses Thyroid nodule Procedures US THYROID/PARATHYROID US SOFT TISSUE HEAD & NECK REAL TIME IMGE Donita Thompson MD [address] [place] [address] [place] [address] Referral ID Status Reason Start Date Expiration Date Visits Requested Visits Authorized [id number] Authorized Auto-Generat ed Referral 08/15/2023 09/13/2024 1 1 [facility] for referral (narrative)* Diagnostic Procedure Only (Routine) - Closed Specialty Diagnoses / Procedures Referred By Contac t Referred To Contact XR IMAGING Diagnoses Right flank pain RUQ pain Epigastric pain Acute constipation Procedures XR ABDOMEN 1V SUPINE RADIOLOGIC EXAM ABDOMEN 1 VIEW Caroline Miller PA-C [address] [place] [address] [place] [address] Referral ID Status Reason Start Date Expiration Date V isits Requested Visits Authorized [id number] Closed Auto-Generate d Referral 09/21/2022 10/21/2023 1 1 [facility] for referral (narrative)* Diagnostic Procedure Only (Routine) - Authorized Specialty Diagnoses / Procedures Referred By Contac t Referred To Contact US IMAGING Diagnoses Thyroid nodule Procedures US THYROID/PARATHYROID US SOFT TISSUE HEAD & NECK REAL TIME IMGE Donita Thompson MD [address] [place] [address] [place] [address] Referral ID Status Reason Start Date Expiration Date Visits Requested Visits Authorized [id number] Authorized Auto-Generat ed Referral 12/18/2024 03/15/2025 1 1 [facility]No reason for referral information availableNew [facility] Work Phone: Reason for visit Narrative* Diagnostic Procedure Only (Routine) - Closed Specialty Diagnoses / Procedures Referred By Contbird t Referred To Contact XR IMAGING Diagnoses Right flank pain RUQ pain Epigastric pain Acute constipation Procedures XR ABDOMEN 1V SUPINE RADIOLOGIC EXAM ABDOMEN 1 VIEW Caroline Miller PA-C [address] [facility] [place] [address] [place] [address] Referral ID Status Reason Start Date Expiration Date V isits Requested Visits Authorized [id number] Closed Auto-Generate d Referral 09/21/2022 10/21/2023 1 1 [facility] Summary Purpose Family History No Family History Records Found Relationship Condition Age at Onset Recorded Date/T kalen grandmother Malignant neoplasm Unknown Relationship Condition Age at Onset Recorded Date/T kalen grandmother Malignant neoplasm Unknown Anxiety Unknown Osteoporosis Unknown Disorder of thyroid Unknown father Hemorrhagic disorder Unknown Disorder of liver Unknown mother Complication of anesthesia Unknown Diabetes mellitus Unknown Hypertension Unknown Advance Directives No Advanced Directives Records FoundDocuments on File Type Date Recorded 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 No September 20, 2022 5:12pm Advance Directive Response Recorded Date/ Time Do you have a Healthcare Power of Sales Intern? No November 07, 2024 3:07am Advance Directive Response Recorded Date/ Time Do you have a Healthcare Power of Sales Intern? No November 07, 2024 3:07am Do you have a Healthcare Power of Sales Intern? No November 09, 2024 8:34am Health Concerns Infection Onset Date Last Indicated Resolved Time COVID-19 Rule-Out 03/10/2022 03/10/2022 Chief Complaint and Reason for Visit Chief Complaint CONCERN FOR SINUS IN FECTION FLANK PAIN Reason for Visit Acute pharyngitis Contact with or suspected exposure to other viral communicable disease Chief Complaint BILATERAL THYROID NO DULES + TPO Annual ([employer]ER) E ORDERS Reason for Visit Multiple thyroid nod ules Collin's thyroiditis Status post bariatric surgery Collin's thyroiditis Status post bariatric surgery Encounter for routine gynecological examination Chief Complaint Admit Date Nontoxic single thyroid nodule May 102024 2:54pm RASH ON L SIDE September 21, 2024 6:10a m Chief Complaint Admit Date RASH ON L SIDE September 21, 2024 6:10a m n/v/d November 07, 2024 3:05a m Reason for Visit Admit Date Herpes zoster September 21, 2024 6:10a m Chief Complaint Admit Date RASH ON L SIDE September 21, 2024 6:10a m n/v/d November 07, 2024 3:05a m abd pain November 09, 2024 8:17a m Chief Complaint Admit Date RASH ON L SIDE September 21, 2024 6:10a m n/v/d November 07, 2024 3:05a m abd pain November 09, 2024 8:17a m EAR AND THROAT PAIN December 26, 2024 6: 29am Reason for Referral Specialty Diagnoses / Procedures Referred By Fabi jenkins 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 Procedures CONSULT TO ENDOCRINOLOGY OFFICE/OUTPATIENT [facility] 60 MINUTES Ping Prince, [employer].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 DATE CREATED AUTHOR AUTHOR'S ORGANIZ ATION 07/18/2018 [facility] DATE CREATED AUTHOR AUTHOR'S ORGANIZ ATION 12/27/2024 [facility] DATE CREATED AUTHOR AUTHOR'S ORGANIZ ATION 03/06/2025 [facility] Source Comments (unrecognize d section and content) In the event this informatio n is protected by the Federal Confidentiality of Alcohol and Drug Abuse Patient Records regulations: The Federal rules restrict any use of the information to criminally investigate or prosecute any alcohol or drug abuse patient.[facility] the event this information is protected by the Federal Confidentiality of Alcohol and Drug Abuse Patient Records regulations: The Federal rules restrict any use of the information to criminally investigate or prosecute any alcohol or drug abuse patient.[facility] the event this information is protected by the Federal Confidentiality of Alcohol and Drug Abuse Patient Records regulations: The Federal rules restrict any use of the information to criminally investigate or prosecute any alcohol or drug abuse patient.[facility] System[facility] the event this information is protected by the Federal Confidentiality of Alcohol and Drug Abuse Patient Records regulations: The Federal rules restrict any use of the information to criminally investigate or prosecute any alcohol or drug abuse patient.[facility] System[facility] the event this information is protected by the Federal Confidentiality of Alcohol and Drug Abuse Patient Records regulations: The Federal rules restrict any use of the information to criminally investigate or prosecute any alcohol or drug abuse patient.[facility] System[facility] the event this information is protected by the Federal Confidentiality of Alcohol and Drug Abuse Patient Records regulations: The Federal rules restrict any use of the information to criminally investigate or prosecute any alcohol or drug abuse patient.[facility] System[facility] the event this information is protected by the Federal Confidentiality of Alcohol and Drug Abuse Patient Records regulations: The Federal rules restrict any use of the information to criminally investigate or prosecute any alcohol or drug abuse patient.[facility] System[facility] the event this information is protected by the Federal Confidentiality of Alcohol and Drug Abuse Patient Records regulations: The Federal rules restrict any use of the information to criminally investigate or prosecute any alcohol or drug abuse patient.[facility] System[facility] the event this information is protected by the Federal Confidentiality of Alcohol and Drug Abuse Patient Records regulations: The Federal rules restrict any use of the information to criminally investigate or prosecute any alcohol or drug abuse patient.[facility] SystemIn the event this information is protected by the Federal Confidentiality of Alcohol and Drug Abuse Patient Records regulations: The Federal rules restrict any use of the information to criminally investigate or prosecute any alcohol or drug abuse patient.[facility] System[facility] the event this information is protected by the Federal Confidentiality of Alcohol and Drug Abuse Patient Records regulations: The Federal rules restrict any use of the information to criminally investigate or prosecute any alcohol or drug abuse patient.[facility] SystemIn the event this information is protected by the Federal Confidentiality of Alcohol and Drug Abuse Patient Records regulations: The Federal rules restrict any use of the information to criminally investigate or prosecute any alcohol or drug abuse patient.[facility] System[facility] the event this information is protected by the Federal Confidentiality of Alcohol and Drug Abuse Patient Records regulations: The Federal rules restrict any use of the information to criminally investigate or prosecute any alcohol or drug abuse patient.[facility] System[facility] the event this information is protected by the Federal Confidentiality of Alcohol and Drug Abuse Patient Records regulations: The Federal rules restrict any use of the information to criminally investigate or prosecute any alcohol or drug abuse patient.[facility] System[facility] the event this information is protected by the Federal Confidentiality of Alcohol and Drug Abuse Patient Records regulations: The Federal rules restrict any use of the information to criminally investigate or prosecute any alcohol or drug abuse patient.[facility] System[facility] the event this information is protected by the Federal Confidentiality of Alcohol and Drug Abuse Patient Records regulations: The Federal rules restrict any use of the information to criminally investigate or prosecute any alcohol or drug abuse patient.[facility] System[facility] the event this information is protected by the Federal Confidentiality of Alcohol and Drug Abuse Patient Records regulations: The Federal rules restrict any use of the information to criminally investigate or prosecute any alcohol or drug abuse patient.[facility] SystemIn the event this information is protected by the Federal Confidentiality of Alcohol and Drug Abuse Patient Records regulations: The Federal rules restrict any use of the information to criminally investigate or prosecute any alcohol or drug abuse patient.[facility] SystemIn the event this information is protected by the Federal Confidentiality of Alcohol and Drug Abuse Patient Records regulations: The Federal rules restrict any use of the information to criminally investigate or prosecute any alcohol or drug abuse patient.[facility] SystemIn the event this information is protected by the Federal Confidentiality of Alcohol and Drug Abuse Patient Records regulations: The Federal rules restrict any use of the information to criminally investigate or prosecute any alcohol or drug abuse patient.[facility] SystemIn the event this information is protected by the Federal Confidentiality of Alcohol and Drug Abuse Patient Records regulations: The Federal rules restrict any use of the information to criminally investigate or prosecute any alcohol or drug abuse patient.[facility] SystemIn the event this information is protected by the Federal Confidentiality of Alcohol and Drug Abuse Patient Records regulations: The Federal rules restrict any use of the information to criminally investigate or prosecute any alcohol or drug abuse patient.[facility] SystemIn the event this information is protected by the Federal Confidentiality of Alcohol and Drug Abuse Patient Records regulations: The Federal rules restrict any use of the information to criminally investigate or prosecute any alcohol or drug abuse patient.[facility] SystemIn the event this information is protected by the Federal Confidentiality of Alcohol and Drug Abuse Patient Records regulations: The Federal rules restrict any use of the information to criminally investigate or prosecute any alcohol or drug abuse patient.[facility] SystemIn the event this information is protected by the Federal Confidentiality of Alcohol and Drug Abuse Patient Records regulations: The Federal rules restrict any use of the information to criminally investigate or prosecute any alcohol or drug abuse patient.[facility] SystemIn the event this information is protected by the Federal Confidentiality of Alcohol and Drug Abuse Patient Records regulations: The Federal rules restrict any use of the information to criminally investigate or prosecute any alcohol or drug abuse patient.[facility] SystemIn the event this information is protected by the Federal Confidentiality of Alcohol and Drug Abuse Patient Records regulations: The Federal rules restrict any use of the information to criminally investigate or prosecute any alcohol or drug abuse patient.[facility] SystemIn the event this information is protected by the Federal Confidentiality of Alcohol and Drug Abuse Patient Records regulations: The Federal rules restrict any use of the information to criminally investigate or prosecute any alcohol or drug abuse patient.[facility] SystemIn the event this information is protected by the Federal Confidentiality of Alcohol and Drug Abuse Patient Records regulations: The Federal rules restrict any use of the information to criminally investigate or prosecute any alcohol or drug abuse patient.[facility] SystemIn the event this information is protected by the Federal Confidentiality of Alcohol and Drug Abuse Patient Records regulations: The Federal rules restrict any use of the information to criminally investigate or prosecute any alcohol or drug abuse patient.[facility] SystemIn the event this information is protected by the Federal Confidentiality of Alcohol and Drug Abuse Patient Records regulations: The Federal rules restrict any use of the information to criminally investigate or prosecute any alcohol or drug abuse patient.[facility] SystemIn the event this information is protected by the Federal Confidentiality of Alcohol and Drug Abuse Patient Records regulations: The Federal rules restrict any use of the information to criminally investigate or prosecute any alcohol or drug abuse patient.[facility] SystemIn the event this information is protected by the Federal Confidentiality of Alcohol and Drug Abuse Patient Records regulations: The Federal rules restrict any use of the information to criminally investigate or prosecute any alcohol or drug abuse patient.[facility] SystemIn the event this information is protected by the Federal Confidentiality of Alcohol and Drug Abuse Patient Records regulations: The Federal rules restrict any use of the information to criminally investigate or prosecute any alcohol or drug abuse patient.[facility] SystemIn the event this information is protected by the Federal Confidentiality of Alcohol and Drug Abuse Patient Records regulations: The Federal rules restrict any use of the information to criminally investigate or prosecute any alcohol or drug abuse patient.[facility] SystemIn the event this information is protected by the Federal Confidentiality of Alcohol and Drug Abuse Patient Records regulations: The Federal rules restrict any use of the information to criminally investigate or prosecute any alcohol or drug abuse patient.[facility] SystemIn the event this information is protected by the Federal Confidentiality of Alcohol and Drug Abuse Patient Records regulations: The Federal rules restrict any use of the information to criminally investigate or prosecute any alcohol or drug abuse patient.[facility] SystemIn the event this information is protected by the Federal Confidentiality of Alcohol and Drug Abuse Patient Records regulations: The Federal rules restrict any use of the information to criminally investigate or prosecute any alcohol or drug abuse patient.[facility] SystemIn the event this information is protected by the Federal Confidentiality of Alcohol and Drug Abuse Patient Records regulations: The Federal rules restrict any use of the information to criminally investigate or prosecute any alcohol or drug abuse patient.[facility] SystemIn the event this information is protected by the Federal Confidentiality of Alcohol and Drug Abuse Patient Records regulations: The Federal rules restrict any use of the information to criminally investigate or prosecute any alcohol or drug abuse patient.[facility] SystemIn the event this information is protected by the Federal Confidentiality of Alcohol and Drug Abuse Patient Records regulations: The Federal rules restrict any use of the information to criminally investigate or prosecute any alcohol or drug abuse patient.[facility] SystemIn the event this information is protected by the Federal Confidentiality of Alcohol and Drug Abuse Patient Records regulations: The Federal rules restrict any use of the information to criminally investigate or prosecute any alcohol or drug abuse patient.[facility] SystemIn the event this information is protected by the Federal Confidentiality of Alcohol and Drug Abuse Patient Records regulations: The Federal rules restrict any use of the information to criminally investigate or prosecute any alcohol or drug abuse patient.[facility] SystemIn the event this information is protected by the Federal Confidentiality of Alcohol and Drug Abuse Patient Records regulations: The Federal rules restrict any use of the information to criminally investigate or prosecute any alcohol or drug abuse patient.[facility] SystemIn the event this information is protected by the Federal Confidentiality of Alcohol and Drug Abuse Patient Records regulations: The Federal rules restrict any use of the information to criminally investigate or prosecute any alcohol or drug abuse patient.[facility] SystemIn the event this information is protected by the Federal Confidentiality of Alcohol and Drug Abuse Patient Records regulations: The Federal rules restrict any use of the information to criminally investigate or prosecute any alcohol or drug abuse patient.[facility] SystemIn the event this information is protected by the Federal Confidentiality of Alcohol and Drug Abuse Patient Records regulations: The Federal rules restrict any use of the information to criminally investigate or prosecute any alcohol or drug abuse patient.[facility] SystemIn the event this information is protected by the Federal Confidentiality of Alcohol and Drug Abuse Patient Records regulations: The Federal rules restrict any use of the information to criminally investigate or prosecute any alcohol or drug abuse patient.[facility] SystemIn the event this information is protected by the Federal Confidentiality of Alcohol and Drug Abuse Patient Records regulations: The Federal rules restrict any use of the information to criminally investigate or prosecute any alcohol or drug abuse patient.[facility] Reason for Visit (unrecogniz ed section and [...] R ear inf ection; was seen at [facility] on 04/19 and started on antibiotic (Augmentin 875mg); fever last evening of 103.5 Reason Comments Results Reason Comments ER F/U [facility] ER FU 09/20/22 Reason Comments 6 Month Exam Reason Comments Returning Patient's Call Reason Comments Radiology US Specialty Diagnoses / Procedures Referred By Contac t Referred To Contact US IMAGING Diagnoses Thyromegaly Procedures US THYROID/PARATHYROID US SOFT TISSUE HEAD & NECK REAL TIME IMGE Debra Doshi PA-C [address] [place] [address] [place] [address] Referral ID Status Reason Start Date Expiration Date V isits Requested Visits Authorized [id number] Closed Auto-Generate d Referral 11/18/2022 12/18/2023 1 1 Reason Comments Patient Education Reassessment Reason Comments Follow Up Reason Comments Thyroid Problem Collin's Specialty Diagnoses / Procedures Referred By Contac t 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 Procedures CONSULT TO ENDOCRINOLOGY OFFICE/OUTPATIENT [facility] 60 MINUTES Ping Prince, [employer].PHARMACY GENERAL MANAGER [address] [place] [id number] Referral ID Status Reason Start Date Expiration Date V isits Requested Visits Authorized [id number] Closed PCP Requested Referral 07/14/2023 10/12/2023 1 1 Reason Comments Reassessment Patient Education Reason Comments Follow Up Reason Comments Physical Reason Comments Radiology US Specialty Diagnoses / Procedures Referred By Contac t Referred To Contact US IMAGING Diagnoses Thyroid nodule Procedures US THYROID/PARATHYROID US SOFT TISSUE HEAD & NECK REAL TIME IMGE Donita Thompson MD [address] [place] [address] [place] [address] Referral ID Status Reason Start Date Expiration Date V isits Requested Visits Authorized [id number] Closed Auto-Generate d Referral 08/15/2023 09/13/2024 1 1 Reason Comments Thyroid Problem Thyroid Nodule Reason Comments Nasal Congestion drainage, headache, ear pain and cough x 1 month Reason Comments Low Blood Sugar Reason Comments Appointment Called patient and l eft voicemail to notify of scheduled appointment Reason Comments Medical Weight Management Low Blood Sugar Follow Up Reason Comments Refill Request Reason Comments Appointment Reason Comments Obesity Care Teams (unrecognized sec tion and content) Hospice Volunteer Coordinator Relationship Specialty Start Date End Date Asif Haque MD [address] [facility] [place] [address] PCP - General Family Practice 02/16/12 Hospice Volunteer Coordinator Relationship Specialty Start Date End Date Asif Haque MD [address] [facility] [place] [address] PCP - General Family Practice 02/16/12 Hospice Volunteer Coordinator Relationship Specialty Start Date End Date Asif Haque MD [address] [facility] [place] [address] PCP - General Family Practice 02/16/12 Hospice Volunteer Coordinator Relationship Specialty Start Date End Date Asif Haque MD [address] [place] [place] [address] PCP - General Family Practice 02/16/12 Hospice Volunteer Coordinator Relationship Specialty Start Date End Date Asif Haque MD [address] [facility] [place] [address] PCP - General Family Practice 02/16/12 Hospice Volunteer Coordinator Relationship Specialty Start Date End Date Asif Haque MD [address] [facility] [place] [address] PCP - General Family Practice 02/16/12 Hospice Volunteer Coordinator Relationship Specialty Start Date End Date Asif Haque MD [address] [place] [place] [address] PCP - General Family Practice 02/16/12 Hospice Volunteer Coordinator Relationship Specialty Start Date End Date Asif Haque MD [address] [facility] [place] [address] PCP - General Family Medicine 02/16/12 Hospice Volunteer Coordinator Relationship Specialty Start Date End Date Asif Haque MD [address] [facility] [place] [address] PCP - General Family Medicine 02/16/12 Hospice Volunteer Coordinator Relationship Specialty Start Date End Date Asif Haque MD [address] [place], [place] [address] PCP - General Family Medicine 02/16/12 Hospice Volunteer Coordinator Relationship Specialty Start Date End Date Asif Haque MD [address] [place] [address] PCP - General Family Medicine 02/16/12 Hospice Volunteer Coordinator Relationship Specialty Start Date End Date Asif Haque MD [address] [place], [place] [id number] PCP - General Family Medicine 02/16/12 Hospice Volunteer Coordinator Relationship Specialty Start Date End Date Asif Haque MD [address] [place], [place] [id number] PCP - General Family Medicine 02/16/12 Team Status: Active Member Role Status Dates Dr. Asif Haque MD Family Provider Active Dr. Asif Haque MD Primary Care Provider Active Team Status: Inactive Member Role Status Dates Dr. Asif Haque MD Primary Care Provider, Referring Provider Active STEVAN Prakash Attending Provider Active Team Status: Inactive Member Role Status Dates Dr. Asif Haque MD Primary Care Provider Active Dr. Ranjit Smalls MD Emergency Provider Active Hospice Volunteer Coordinator Relationship Specialty Start Date End Date Asif Haque MD [address] [place] [address] PCP - General Family Medicine 02/16/12 Hospice Volunteer Coordinator Relationship Specialty Start Date End Date Debra Swain PA-C [address] [place] [address] PCP - General Family Medicine 11/18/22 Hospice Volunteer Coordinator Relationship Specialty Start Date End Date Debra Swain PA-C [address] [place] [address] PCP - General Family Medicine 11/18/22 Hospice Volunteer Coordinator Relationship Specialty Start Date End Date Debra Swain PA-C [address] [place] [address] PCP - General Family Medicine 11/18/22 Hospice Volunteer Coordinator Relationship Specialty Start Date End Date Debra Swain PA-C [address] [place], [place] [address] PCP - General Family Medicine 11/18/22 Team [...] Dr. Felice Centeno MD Attending Provider Active Hospice Volunteer Coordinator Relationship Specialty Start Date End Date Debra Swain PA-C [address] [place] [address] PCP - General Family Medicine 11/18/22 Hospice Volunteer Coordinator Relationship Specialty Start Date End Date Debra Swain PA-C [address] [place], [place] [address] PCP - General Family Medicine 11/18/22 Hospice Volunteer Coordinator Relationship Specialty Start Date End Date Debra Swain PA-C [address] [place], [place] [id number] PCP - General Family Medicine 11/18/22 Hospice Volunteer Coordinator Relationship Specialty Start Date End Date Debra Swain PA-C [address] [facility] [place] [address] PCP - General Family Medicine 11/18/22 Hospice Volunteer Coordinator Relationship Specialty Start Date End Date Debra Swain PA-C [address] [place] [address] PCP - General Family Medicine 11/18/22 Hospice Volunteer Coordinator Relationship Specialty Start Date End Date Debra Swain PA-C [address] [facility] [place] [address] PCP - General Family Medicine 11/18/22 Hospice Volunteer Coordinator Relationship Specialty Start Date End Date Debra Swain PA-C [address] [facility] [place] [address] PCP - General Family Medicine 11/18/22 Hospice Volunteer Coordinator Relationship Specialty Start Date End Date Debra Swain PA-C [address] [place] [address] PCP - General Family Medicine 11/18/22 Hospice Volunteer Coordinator Relationship Specialty Start Date End Date Debra Swain PA-C [address] [place] [address] PCP - General Family Medicine 11/18/22 Hospice Volunteer Coordinator Relationship Specialty Start Date End Date Asif Haque MD [address] [facility] [place] [address] PCP - General Family Medicine 02/16/12 11/17/22 Hospice Volunteer Coordinator Relationship Specialty Start Date End Date Asif Haque MD [address] [facility] [place] [address] PCP - General Family Medicine 02/14/24 Hospice Volunteer Coordinator Relationship Specialty Start Date End Date Asif Haque MD [address] [facility] [place] [address] PCP - General Family Medicine 02/14/24 Hospice Volunteer Coordinator Relationship Specialty Start Date End Date Asif Haque MD [address] [facility] [place] [address] PCP - General Family Medicine 02/14/24 Hospice Volunteer Coordinator Relationship Specialty Start Date End Date Asif Haque MD [address] [facility] [place] [address] PCP - General Family Medicine 02/14/24 Hospice Volunteer Coordinator Relationship Specialty Start Date End Date Asif Haque MD [address] [facility] [place] [address] PCP - General Family Medicine 02/14/24 Nettie Canales, SUPERVISOR [employer]IATES.PHARMACY GENERAL MANAGER [address] [place] [address] Spine Surgeon Family Medicine 04/16/24 Kiera Bragg, SUPERVISOR [employer].PHARMACY GENERAL MANAGER [address] [facility] [place] [address] Spine Surgeon Family Medicine 04/16/24 Hospice Volunteer Coordinator Relationship Specialty Start Date End Date Asif Haque MD [address] [place] [address] PCP - General Family Medicine 02/14/24 Nettie Canales, SUPERVISOR [employer].PHARMACY GENERAL MANAGER [address] [place] [address] Spine Surgeon Family Medicine 04/16/24 Kiera Bragg APRN.PHARMACY GENERAL MANAGER [address] [facility] [place] [address] Spine Surgeon Family Medicine 04/16/24 Hospice Volunteer Coordinator Relationship Specialty Start Date End Date Asif Haque MD [address] [place] [address] PCP - General Family Medicine 02/14/24 Nettie Canales APRN.PHARMACY GENERAL MANAGER [address] [place] [address] Spine Surgeon Family Medicine 04/16/24 Kiera Bragg APRN.PHARMACY GENERAL MANAGER [address] [place] [address] Spine Surgeon Family Medicine 04/16/24 Hospice Volunteer Coordinator Relationship Specialty Start Date End Date Asif Haque MD [address] [place] [address] PCP - General Family Medicine 02/14/24 Nettie Canales APRN.PHARMACY GENERAL MANAGER [address] [place] [address] Spine Surgeon Family Medicine 04/16/24 Kiera Bragg APRN.PHARMACY GENERAL MANAGER [address] [place] [address] Spine Surgeon Family Medicine 04/16/24 Hospice Volunteer Coordinator Relationship Specialty Start Date End Date Asif Haque MD [address] [place] [address] PCP - General Family Medicine 02/14/24 Nettie Canales APRN.PHARMACY GENERAL MANAGER [address] [facility] [place] [address] Spine Surgeon Family Medicine 04/16/24 Kiera Bragg APRN.PHARMACY GENERAL MANAGER [address] [facility] [place] [address] Spine Surgeon Family Medicine 04/16/24 Hospice Volunteer Coordinator Relationship Specialty Start Date End Date Asif Haque MD [address] [facility] [place] [address] PCP - General Family Medicine 02/14/24 Nettie Canales APRN.PHARMACY GENERAL MANAGER [address] [facility] [place] [address] Spine Surgeon Family Medicine 04/16/24 Kiera Bragg APRN.PHARMACY GENERAL MANAGER [address] [facility] [place] [address] Spine Surgeon Family Medicine 04/16/24 Hospice Volunteer Coordinator Relationship Specialty Start Date End Date Asif Haque MD [address] [facility] [place] [address] PCP - General Family Medicine 02/14/24 Nettie Canales APRN.PHARMACY GENERAL MANAGER [address] [facility] [place] [address] Spine Surgeon Family Medicine 04/16/24 Kiera Bragg APRN.PHARMACY GENERAL MANAGER [address] [place] [address] Spine Surgeon Family Medicine 04/16/24 Team Status: Inactive Member Role Status [...] September 21, 2024 End: September 21, 2024 Hospice Volunteer Coordinator Relationship Specialty Start Date End Date Asif Haque MD [address] [facility] [place] [address] PCP - General Family Medicine 02/14/24 Nettie Canales APRN.PHARMACY GENERAL MANAGER [address] [place] [address] [facility] 04/16/24 Kiera Bragg APRN.PHARMACY GENERAL MANAGER [address] [facility] [place] [address] [facility] 04/16/24 Hospice Volunteer Coordinator Relationship Specialty Start Date End Date Asif Haque MD [address] [facility] [address] PCP - General Family Medicine 02/14/24 Nettie Canales APRN.PHARMACY GENERAL MANAGER [address] [place] [address] [facility] 04/16/24 Kiera Bragg APRN.PHARMACY GENERAL MANAGER [address] [place], [place] [address] [facility] 04/16/24 Team Status: Active Member Role/Relationship Status Dates Dr. Asif Haque MD Primary Care Provider Active Team Status: Inactive Member Role/Relationship Status Dates Dr. Asif Haque MD Primary Care Provider Active Start: September 21, 2024 End: September 21, 2024 Dr. Asif Haque MD Referring Provider Active Start: September 21, 2024 End: September 21, 2024 Charles CALLES, PA Attending Provider Active Sta rt: September 21, 2024 End: September 21, 2024 Team Status: Inactive Member Role/Relationship Status Dates Dr. Asif Haque MD Primary Care Provider Active Start: November 07, 2024 End: November 07, 2024 Dr. Nadir Ortiz DO Emergency Provider Active Start: November 07, 2024 End: November 07, 2024 Hospice Volunteer Coordinator Relationship Specialty Start Date End Date Asif Haque MD [address] [place] [address] PCP - General Family Medicine 02/14/24 Nettie Canales APRN.PHARMACY GENERAL MANAGER [address] [place], [place] [address] [facility] 04/16/24 Kiera Bragg SUPERVISOR [employer].PHARMACY GENERAL MANAGER [address] [place], [place] [address] [facility] 04/16/24 Team Status: Inactive Member Role/Relationship Status Dates Dr. Asif Haque MD Primary Care Provider Active Start: November 09, 2024 End: November 09, 2024 Dr. Zan Pascal DO Emergency Provider Active Start: November 09, 2024 End: November 09, 2024 Team Status: Inactive Member Role/Relationship Status Dates Dr. Asif Haque MD Primary Care Provider Active Start: November 07, 2024 End: November 07, 2024 Dr. Nadir Ortiz DO Attending Provider Active Start: November 07, 2024 End: November 07, 2024 Dr. Nadir Ortiz DO Emergency Provider Active Start: November 07, 2024 End: November 07, 2024 Team Status: Inactive Member Role/Relationship Status Dates Dr. Asif Haque MD Primary Care Provider Active Start: November 09, 2024 End: November 09, 2024 Dr. Zan Pascal DO Attending Provider Active Start: November 09, 2024 End: November 09, 2024 Dr. Zan Pascal DO Emergency Provider Active Start: November 09, 2024 End: November 09, 2024 Team Status: Inactive Member Role/Relationship Status Dates Dr. Asif Haque MD Primary Care Provider Active Start: December 26, 2024 End: December 26, 2024 Dr. Asif Haque MD Referring Provider Active Start: December 26, 2024 End: December 26, 2024 Herminio CALLES, PA Attending Provider Active Start: December 26, 2024 End: December 26, 2024 Hospice Volunteer Coordinator Relationship Specialty Start Date End Date Asif Haque MD [address] [place] [address] PCP - General Family Medicine 02/14/24 Nettie Canales, MARYJANE.PHARMACY GENERAL MANAGER [address] [place] [address] Spine Surgeon Family [facility] 04/16/24 Kiera Bragg, SUPERVISOR [employer].PHARMACY GENERAL MANAGER [address] [place] [address] Spine Surgeon Family [facility] 04/16/[address] [place] [address] Cup Trimming Machine Operator Nutrition 12/31/24 Hospice Volunteer Coordinator Relationship Specialty Start Date End Date Asif Haque MD [address] [place] [address] PCP - General Family Medicine 02/14/24 Nettie Canales APRN.PHARMACY GENERAL MANAGER [address] [place] [address] [facility] 04/16/24 Kiera Bragg APRN.PHARMACY GENERAL MANAGER [address] [place] [address] [facility] 04/16/[address] [place] [address] Cup Trimming Machine Operator Nutrition 12/31/24 Goals (unrecognized section and content) Goals may [...] BE BASED ON THE PRIMARY CLINICAL RECORDS. [facility]. provides no warranty or guarantee of the accuracy or completeness of information in this document.
[2025-04-07 14:13] LABS: Mucous, Urine 0 SEEN /hpf (<or=2+); Red Blood Cells-Urine 0 SEEN /hpf (0-5)
[2025-04-07 14:15] LABS: Color, Urine Yellow (Yellow); Glucose, Dipstick Normal (Normal); Ketone-Dipstick 5 mg/dl (Negative); Leukocyte Esterase-Dipstick Negative /ul (Negative); Nitrite-Dipstick Negative (Negative); Occult Blood-Urine Negative /ul (Negative); Protein-Dipstick 30 mg/dl (Negative); Specific Gravity, Urine 1.010 (1.002-1.030); Urine Bilirubin Dipstick Negative (Negative)
[2025-04-07 14:15] LABS: Hematocrit 43.4 % (37-47); Hemoglobin 14.2 g/dL (12.0-15.0); Immature Granulocytes Count 0.020 X10^3/uL (0.0-0.0); Mean Corp Hgb Conc 32.7 g/dL (32-36); Mean Corpuscular Volume 88.0 fL (81-99); Mean Platelet Vol. 9.8 fl (6.2-12.0); NRBC Flagged by Analyzer 0 % (0-5); POSITIVE DIFFERENTIAL YES; Platelet Count 217 K/mm3 (150-450); RBC Distribution Width CV 13.0 % (11.6-14.6); RBC Distribution Width SD 42.2 fl (35.1-43.9); Red Blood Count 4.93 M/mm3 (4.2-5.4); White Blood Count 6.0 K/mm3 (4.4-11.0)
--- NOTE | 2025-04-07 14:17 | CT_ITS ---
PROCEDURE: ABDOMEN/PELVIS W IV CONT ONLY 04/07/2025 REASON FOR EXAM: ABDOMINAL PAIN TECHNIQUE: Procedure Code: [id number] Modality: CT Procedure: ABDOMEN/PELVIS W IV CONT ONLY Coronal and Sagittal reconstruction series were provided. CONTRAST: Isovue 370 VOLUME: 98 mL One or more dose reduction techniques were used (e.g., Automated exposure control, adjustment of the mA and/or kV according to patient size, use of iterative reconstruction technique. RADIATION DOSE SUMMARY: CTDlvol: 22.33 mGy DLP: 1188.76 mGycm COMPARISON: November 09, 2024 FINDINGS: Lung bases: Unremarkable. Visualized heart is within normal limits. Liver: There is a well-defined left hepatic lobe lesion on image 37, series 2, very similar to the previous study and likely a cyst or other benign process. Gallbladder: The gallbladder is surgically absent. There is mild intrahepatic biliary ductal dilatation. The common bile duct is not definitively dilated. Spleen: Normal size. Pancreas: Normal size without evidence of mass surrounding inflammation or ductal dilation. Adrenals: Unremarkable. Kidneys: Normal renal sizes. No hydronephrosis. Bladder: Nondistended but otherwise unremarkable. Reproductive Organs: The uterus is not visualized and may be surgically absent. Bowel: Multiple loops of fluid-filled small bowel are noted which measure up to 2.6 cm, technically within normal limits. Surgical sutures are noted in the region of the stomach as well as in small bowel in the left upper quadrant, suggesting prior gastric bypass. Appendix: The appendix is felt to be seen on image 92, series 2. No evidence of appendicitis. Lymph nodes: No abdominal adenopathy. Vasculature: Unremarkable. Peritoneum / Retroperitoneum: There is a small amount of free fluid in the pelvis to the right of midline on image 98, series 2. This is nonspecific. Bones: Unremarkable. CT/Abdomen/Pelvis W IV Cont ONLY IMPRESSION: Small amount of free fluid and fluid-filled mildly prominent but nondistended l oops of small bowel. This constellation of findings suggests enteritis. Additional findings as above. Reading Location: [facility]
[2025-04-07] MEDS: 0.9% Normal Saline (1000mL) 1,000 ML 999 ML IV (14:24)
[2025-04-07] MEDS: HYDROmorphone 0.5 MG/0.5 ML SYRINGE IV (14:25)
[2025-04-07 14:31] LABS: Internal QC Validated? YES +Cl - CLEAR BKGD; Pregnancy, Urine Negative Negative; Squamous Epithelial Cells - UA 5-10 SEEN /hpf (5-10)
[2025-04-07 14:32] LABS: Record Kit Lot#,Urine Preg 980607
[2025-04-07 14:38] LABS: AST(SGOT) 22 U/L (<=31); Alanine Aminotransfer ALT/SGPT 29 U/L (<=34); Albumin, Serum 4.0 g/dL (3.5-5.0); Alkaline Phosphatase 65 U/L (35-104); Anion Gap 12 (5-15); BUN 16 mg/dL (4-19); BUN/Creat Ratio 16.8 RATIO (10-20); Calcium,Total 9.1 mg/dL (7.6-11.0); Carbon Dioxide 25.2 mmol/L (21.0-32.0); Chloride 99 mmol/L (98-108); Estimated Creatinine Clearance 107.10 ml/min (50-250); Globulin 3.1 g/dL (2.2-4.2); Glucose 98 mg/dL (70-99); Potassium 4.3 mmol/L (3.3-5.1)
[2025-04-07 14:43] VITALS: BP 125/76; PULSE 83; RESP 12; O2SAT 100
[2025-04-07 15:54] VITALS: BP 124/74; PULSE 90; RESP 16; O2SAT 100
--- NOTE | 2025-04-07 16:21 | ED.VIS.GI ---
HPI HPI - GI History of Present Illness Chief Complaint: Abd Pain Narrative Narrative: Patient is a 34-year-old female with history of colitis (CT concerning for possible ulcerative colitis) earlier this summer and November. She is presenting with recurrent episode of abdominal pain. States she woke up around 2 AM with pain around her umbilicus that radiates to her back bilaterally however is worse on the left. States the pain is stabbing in nature. Has associated nausea but no vomiting. Does have diarrhea today. Notes that of the 4 days prior to that she was feeling constipated. Denies any blood in her stool. Had chills but no fever. States that she has been trying to follow-up outpatient with GI through the [facility] but cannot be seen until the end of May and expresses a lot of frustration for this. Denies any known family history of inflammatory bowel disease. Came in for further evaluation. Did try taking Pepto-Bismol last night with no relief of her symptoms. Does have a history of bariatric surgery. [facility] Medical History Hypothyroidism Reactive hypoglycemia Acute bronchitis, unspecified Collin's thyroiditis Wears glasses Depression Anxiety Low iron Easy bruising Migraine headache Heartburn Former smoker Leg cramps History of irregular heartbeat Abnormal uterine bleeding (AUB) Shoulder pain SOB (shortness of breath) History of pre-eclampsia Home Medications Medication Instructions Recorded Last Taken Type glucagon 3 mg/actuation nasal mg intranasal 09/21/24 Unknown History spray (Baqsimi) benzonatate 200 mg capsule 200 mg PO TID PRN cough #20 caps 12/26/24 Unknown Rx methylprednisolone 4 mg tablets in See Rx Instructions PO PER PKG DIR 12/26/24 Unknown Rx a dose pack (Medrol (Danilo)) #21 tabs ciprofloxacin HCl 500 mg tablet 500 mg PO BID #14 tabs 04/07/25 Unknown Rx (Cipro) dicyclomine 10 mg capsule 20 mg (2 x 10 mg) PO TIDAC #20 04/07/25 Unknown Rx CAPSULES metronidazole 500 mg tablet 500 mg PO Q8H #21 tabs 04/07/25 Unknown Rx ondansetron 4 mg disintegrating 4 mg PO Q8H PRN PRN Nausea #10 tabs 04/07/25 Unknown Rx tablet tramadol 50 mg tablet 50 mg PO Q12H PRN Pain 5 days #10 04/07/25 Unknown Rx tabs Allergy/AdvReac Type Severity Reaction Status Date / Time metoprolol Allergy Severe Hives Verified 04/07/25 13:06 oxycodone HCl (From Percocet) Allergy Severe Hives Verified 04/07/25 13:06 hydrocodone bitartrate (From Allergy Intermediate Hives Verified 04/07/25 13:06 Vicodin) latex Allergy Mild Rash Verified 04/07/25 13:06 dicloxacillin Allergy Hives Verified 04/07/25 13:06 Family History Grandmother Cancer Anxiety Osteoporosis Thyroid disorder Father Bleeding disorder Liver disease Mother Anesthesia complication Diabetes Hypertension Surgical History Status post bariatric surgery S/P hernia surgery H/O gastric bypass Hx of cholecystectomy History of total vaginal hysterectomy (TVH) S/P vaginal hysterectomy (~02/24/21) Status post bilateral salpingectomy (~09/25/19) History of foot surgery History of tonsillectomy Hx LEEP (loop electrosurgical excision procedure), cervix, Social History Smoking Status: Former smoker second hand exposure: No alcohol intake: never substance use type: does not use caffeine: No what type of physical activity do you participate in: none and other details: 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 seatbelt use: always do you feel safe at home: Yes additional social history: [employer] ED Constitutional Constitutional ED: Reports chills; Denies fever(s) Respiratory/Chest Respiratory/Chest: Denies cough or dyspnea Gastrointestinal Gastrointestinal: Reports abdominal pain, diarrhea and nausea; Denies vomiting Genitourinary Genitourinary ED: Denies dysuria or urinary frequency Musculoskeletal Musculoskeletal: Denies arthralgias or myalgias Integumentary Denies rash Neurologic Neurologic: Reports weakness Hematologic/Lymphatic Hematologic/Lymphatic: Denies easy bleeding or easy bruising EXAM Physical Exam Const Vital Signs: 04/07/25 12:31 04/07/25 14:43 04/07/25 15:54 Temperature 98.6 F Temperature Source Oral Pulse Rate 97 83 90 Respiratory Rate 18 12 16 Blood Pressure 126/78 H 125/76 H 124/74 H Blood Pressure Mean 94 92 90 Pulse Ox 98 100 100 Oxygen Delivery Method Room Air Room Air Room Air Positive well nourished and well developed Constitutional Narrative: Uncomfortable appearing General Appearance ED: well developed; Negative for pallor HEENT Reports moist mucous membranes Eyes General Eye ED: Negative for pale conjunctiva or scleral icterus Neck supple Resp normal respiratory effort and clear to auscultation bilaterally Cardio regular rate and regular rhythm GI non-distended GI Narrative: Diffuse, worse in the lower abdomen on my exam Auscultation: normoactive bowel sounds Palpation: soft and tender; Negative for guarding or rigid Back/Spine General Back: CVA tenderness bilateral Neuro moves all extremities and no sensory deficits noted Sensorium / Orientation: alert Motor Exam: Negative for general weakness Psych mental status grossly normal and thought process normal Mood & Affect: tearful Skin no wounds General Skin Exam: Negative for jaundice or pallor MDM MDM MDM Narrative Medical decision making narrative: Patient evaluated for recurrent episode of abdominal pain, diarrhea and nausea. Differential includes colitis, gastroenteritis, electrolyte derangement, diverticulitis and FITO as well as bladder infection. Lab work largely unremarkable with a normal CBC and CMP. She does not have epigastric pain today and lipase. Urinalysis is consistent contamination but not infection. CT abdomen pelvis shows small amount of free fluid and fluid-filled mildly prominent but nondistended loops of bowel which could be suggestive an enteritis. Given her prior CT from earlier this summer is concerning for possible ulcerative colitis and there is recurrent symptoms will give close outpatient follow-up with GI. Patient is scheduled to follow-up on the third. While in the ER patient received IV Dilaudid, fluids and Zofran for symptom control. On repeat evaluation she has some improvement. Will start on a short course of tramadol and Zofran as well as Bentyl for breakthrough symptoms. Is given a [id number] prescription for antibiotics however symptoms or not improving in the next 24 to 40 hours for her to start Cipro and Flagyl. Patient is agreeable this plan of care. Given return precautions. Discharged home in stable condition. Lab Data Attestation: I reviewed the patient's lab results. Labs: Laboratory Results - last 24 hr 04/07/25 04/07/25 13:12 14:00 WBC 6.0 RBC 4.93 Hgb 14.2 Hct 43.4 MCV 88.0 MCH 28.8 MCHC 32.7 RDW Std Deviation 42.2 RDW Coeff of Danette 13.0 Plt Count 217 MPV 9.8 Immature Gran % (Auto) 0.300 Neut % (Auto) 90.0 H Lymph % (Auto) 5.3 L [place] % (Auto) 3.5 Eos % (Auto) 0.7 Baso % (Auto) 0.2 Absolute Neuts (auto) 5.4 Absolute Lymphs (auto) 0.32 L Nucleated RBC % 0 Sodium 136 Potassium 4.3 Chloride 99 Carbon Dioxide 25.2 Anion Gap 12 BUN 16 Creatinine 0.95 Estim Creat Clear Calc 107.10 Est GFR (MDRD) Non-Af 81 BUN/Creatinine Ratio 16.8 Glucose 98 Calcium 9.1 Total Bilirubin 1.28 AST 22 ALT 29 Alkaline Phosphatase 65 Total Protein 7.1 Albumin 4.0 Globulin 3.1 Albumin/Globulin Ratio 1.3 Urine Color Yellow Urine Clarity Sl. Cloudy Urine pH 7.0 Ur Specific [place] 1.010 Urine Protein 30 H Urine Glucose (UA) Normal Urine Ketones 5 H Urine Occult Blood Negative Urine Nitrite Negative Urine Bilirubin Negative Urine Urobilinogen 1 H Ur Leukocyte Esterase Negative Urine RBC 0 SEEN Urine WBC 0 SEEN Ur Squamous Epith Cells 5-10 SEEN Urine Bacteria 1+ Urine Mucus 0 SEEN Urine Test Negative Radiography Diagnostic Testing: Clinical Impression(s) from Imaging Studies Abdomen/Pelvis CT 04/07/25 14:17 IMPRESSION: Small amount of free fluid and fluid-filled mildly prominent but nondistended loops of small bowel. This constellation of findings suggests enteritis. Additional findings as above. Reading Location: [facility] Discharge Plan Triage Chief Complaint: Abd Pain Other Complaint: Back ED Provider: Elidia Brice Dx/Rx/DC Orders Clinical Impression: Abdominal pain, Enteritis Instructions: ED Understanding Colitis, ED Diarrhea, Unknown Cause Prescriptions: New ciprofloxacin HCl [Cipro] 500 mg tablet 500 mg PO BID Qty: 14 0RF metronidazole 500 mg tablet 500 mg PO Q8H Qty: 21 0RF tramadol 50 mg tablet 50 mg PO Q12H PRN (Reason: Pain) 5 Days Qty: 10 0RF ondansetron 4 mg tablet,disintegrating 4 mg PO Q8H PRN PRN (Reason: Nausea) Qty: 10 0RF dicyclomine 10 mg capsule 20 mg PO TIDAC Qty: 20 0RF No Action Baqsimi 3 mg/actuation spray,non-aerosol intranasal Patient Comments: SPRAY ONCE INTO THE NOSE NEEDED FOR LOW BLOOD SUGAR, REPEAT IN 15MIN NEEDED methylprednisolone [Medrol (Danilo)] 4 mg tablets,dose pack See Rx Instructions PO PER PKG DIR Qty: 21 0RF Rx Instructions: PO PER PKG DIR benzonatate 200 mg capsule 200 mg PO TID PRN (Reason: cough) Qty: 20 0RF Primary Care Provider: Asif Tim Referrals: FriendChivo DO [Med Staff - Active Staff, Gastroenterology] Asif Tim MD [Primary Care Provider, Medical] Activity Restrictions/Additional Instructions: Your lab work today was largely normal and reassuring. Your CT did show some inflammation of the colon consistent more with an enteritis which could be from a viral infection or food poisoning. Because of your history of colitis you have been given prescription for antibiotics. If you are still having symptoms in 24 hours you may start taking them. In the meantime you have been given a prescription medication to help with the pain and nausea. Please follow-up with GI, you have an appointment scheduled for 12:30 PM on 04/10. Print Language: Burkinan Disposition Disposition: Home, Self Care Discharge Date/Time: 04/07/25 16:34
== END 2025-04-07 16:34 | disposition home or self-care (01) ==
PROVIDERS: Emergency Provider Emergency Medicine; PCP Family Medicine; Visit Provider Emergency Medicine
DX: K52.9 Noninfective gastroenteritis and colitis, unspecified (principal); Z87.891 Personal history of nicotine dependence
CPT/HCPCS: 74177; 80053; 81001; 81025; 85025; 96361; 96374; 96375; 99285; Q9967; J2405

== ENCOUNTER → 2025-04-12 | Outpatient (CLI) | payer MEDICAID, SELFPAY ==
--- OUTSIDE RECORDS SUMMARY | 2025-04-12 16:02 | XMS RPT_ITS | CCD ---
Author Organization [facility] Care Team Providers Care State Tested Nursing Assistant Name Role Phone LILIAM Dee RN, Ping Coles Unavailable Unavailjose alberto Dee RN RN, Ping Coles Unavailable Unavailjose alberto Dee RN RN, Ping Coles Unavailable Unavailabl e Becki FOSTER, Julissa Lin Unavailable VALDEZ WOODALL Unavailable Unavailable SHABNAM, ASIF Unavailable Unavailable Zografakis, Masood Unavailable Unavailable Bittenbender, Peter Unavailable Unavailable Shabnam, Asif Unavailable Unavailable Zografakis, Masood Unavailable Unavailable Bittenbender, Peter Unavailable Unavailable [place], Asif Unavailable Unavailable Bittenbender, Peter Unavailable Unavailable [place], Asif Unavailable Unavailable Wells, Unavailable Unavailable Wells, Unavailable Unavailable Bittenbender, Peter Unavailable Unavailable [place], Asif Unavailable Unavailable Wells, Unavailable Unavailable Bittenbender, Peter Unavailable Unavailable [place], Asif Unavailable Unavailable Wells, Unavailable Unavailable Bittenbender, Peter Unavailable Unavailable [place], Asif Unavailable Unavailable Wells, Unavailable Unavailable Bittenbender, Peter Unavailable Unavailable [place], Asif Unavailable Unavailable Wells, Unavailable Unavailable Bittenbender, Peter Unavailable Unavailable Shabnam, Asif Unavailable Unavailable Wells, Unavailable Unavailable Bittenbender, Peter Unavailable Unavailable [place], Asif Unavailable Unavailable Zografakis, Masood Unavailable Unavailable Bittenbender, Peter Unavailable Unavailable [place], Asif Unavailable Unavailable RumgagelGeorgeSweetie Unavailable Unavailable Bittenbender, Peter Unavailable Unavailable [place], Asif Unavailable Unavailable Bittenbender, Peter Unavailable Unavailable [place], Asif Unavailable Unavailable Zografakis, Masood Unavailable Unavailable Bittenbender, Peter Unavailable Unavailable [place], Asif Unavailable Unavailable NORRIS, CELESTE Attending Unavailable BECKI, JULISSA Lin Referring Unavailabl e SHABNAM, ASIF Edwards Primary Care Unavailable LARRY RAMAN Attending Unavailable MARCANTHONY, JULISSA E Referring Unavailabl e SHABNAM, ASIF Edwards Primary Care Unavailable CARLOS TURNER Attending Unavailable MARCANTHAMITA, JULISSA E Referring Unavailabl e SHABNAM, ASIF Edwards Primary Care Unavailable BISHNU, OWEN T Attending Unavailable MARCSTFE, JULISSA Lin Referring Unavailabl e SHABNAM, ASIF [...] Attending Provider Dr. Aj Carmichael Attending Provider [phone] Julissa Connell Attending Provider Debra Swain PA-C Primary Care Provider Asif Haque MD Primary Care Provider Asif Haque MD Primary Care Provider Jamieagen [employer]PERINTENDENT [employer].BLOOD BANK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, Nettie Unavailable Mahsa [employer]PER[employer].BLOOD BANK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, Kiera A Unavailable Dr. Asif Haque MD Primary Care Provider Dr. Felice Centeno MD Attending Provider Taryn FOSTER, Dr. Viveros Referring Provider Shabnam FOSTER, Dr. Gold Referring Provider Charles Rodriguez Attending Provider Shabnma FOSTER, Dr. Gold Primary Care Provider Diana SOMMER, Dr. Schmitz Emergency Provider Gwyn SOMMER, Dr. Zuluaga Emergency Provider Diana SOMMER, Dr. Schmitz Attending Provider Gwyn SOMMER, Dr. Zuluaga Attending Provider Herminio Cardozo Attending Provider Herminio Byrnes Attending Unavailable [place], Asif Referring Unavailable [place], Asif Primary Care Unavailable Shabnam, Asif Primary Care Unavailable Herminio Byrnes Attending Unavailable Shabnam, Asif Referring Unavailable Shabnam, Asif Primary Care Unavailable Shabnam, Asif Referring Unavailable MarcanthJulissa levi Attending Unavailable Herminio Byrnes Attending Unavailable Shabnam, Asif Primary Care Unavailable [place], Asif Referring Unavailable Shabnam, Asif Primary Care Unavailable Zan Pascal Attending Unavailable Shabnam, Asif Primary Care Unavailable MarcjulianonyJulissa Attending Unavailable Octavioanthony, Julissa Referring Unavailable [place], Asif Primary Care Unavailable Felice Centeno Attending Unavailable Taryn, Felice Referring Unavailable Marcanthony, Julissa Referring Unavailable Shabnam, Asif Primary Care Unavailable Julissa Connell Attending Unavailable Nadir Ortiz Attending Unavailable [place], Asif Primary Care Unavailable Shabnam, Asif Referring Unavailable [place], Asif Primary Care Unavailable MarcJulissa hanks Attending Unavailable [place], Asif Referring Unavailable [place], Asif Primary Care Unavailable Charles Rodriguez Attending Unavailable Dimarino MIRI, Stef Unavailable ALKHALED, MANUELA Referring Unavailable SHABNAM, ASIF [...] HYDROcodone Drug Allergy 02-25-20 11 Hives, Itching [facility] Acetaminophen / oxyCODONE (1 source) Acetaminophen / oxyCODONE Drug Allergy 12-23-19 13 Itching [facility] Doxycycline (1 source) Doxycycline Drug Allergy 01-15-20 20 Hives [facility] Latex (1 source) Latex Substance Allergy 05-19-19 10 Rash [facility] Metoprolol (1 source) Metoprolol Drug Allergy 07-28-19 12 Hives, Shortness of Breath [facility] (7 sources) acetaminophen / HYDROcodone Drug Allergy 12-16-19 17 [facility] (7 sources) acetaminophen / oxyCODONE Drug Allergy 12-16-19 17 [facility] (7 sources) metoprolol Drug Allergy 12-16-19 17 [facility] (20 sources) Acetaminophen / HYDROcodone; Translations: [HYDROCODONE-ACET AMINOPHEN] Drug Allergy 02-25-20 11 Hives, Itching [facility] (20 sources) Acetaminophen / oxyCODONE; Translations: [OXYCODONE-ACETAM INOPHEN] Drug Allergy 12-23-19 13 Other: See Comments, Itching [facility] (20 sources) Latex; Translations: [LATEX] Propensity to adverse reactions to drug (disorder) 05-19-19 10 Rash [facility] (20 sources) Metoprolol; Translations: [METOPROLOL] Drug Allergy 07-28-19 12 Hives, Shortness of Breath [facility] Comment on above: heart races (20 sources) Doxycycline; Translations: [DOXYCYCLINE] Drug Allergy 01-15-20 [facility] Work Phone: (20 sources) Tomatoes; Translations: [TOMATOES] Propensity to adverse reactions 09-19-19 10 Swelling [facility] (6 sources) Dicloxacillin Drug Allergy 09-21-19 [facility] (7 sources) HYDROcodone; Translations: [hydrocodone bitartrate] Drug Allergy 09-21-19 [facility] (7 sources) oxyCODONE; Translations: [oxycodone HCl] Drug Allergy 09-21-19 [facility] Comment on above: heart races (1 source) Dicloxacillin Drug Allergy 12-27-19 [facility] Repository Medications Current Medications Medication [...] 2 11/21/2023 Active Blood-Glucose Meter,Continuous (DEXCOM G7 TRUCKMAN) misc (7 sources) Start: 07-04-2024 End: 10-02-2024 Blood-Glucose Meter,Continuous (DEXCOM G7 TRUCKMAN) misc 1 Each as directed. 1 Each 2 07/04/2024 10/02/2024 Active Blood-Glucose Meter,Continuous (FREESTYLE CONNIE 3 READER) misc (2 sources) Start: 12-07-2024 Blood-Glucose Meter,Continuous (FREESTYLE CONNIE 3 READER) misc Use to check blood sugar at least four (4) times daily. 1 each 12/07/2024 Active Blood-Glucose Sensor (DEXCOM G7 SENSOR) allison (10 sources) Start: 11-07-2024 End: 02-05-2025 Blood-Glucose Sensor (DEXCOM G7 SENSOR) allison 1 EACH EVERY 10 DAYS. 10 each [...] Comment on above: Take 1 capsule by [facility] once daily. Creatinine, Bulk, 100 % powd [...] mg/actuation nasa l spray (BAQSIMI) Use 1 [place] in the nose as needed for low [...] Comment on above: Take 1 capsule by [facility] twice daily for 5 days. rizatriptan 10 [...] g 1 11/21/2023 12/21/2023 Active vitamin a 08791 unt oral capsule (20 sources) Vitamin A [...] Comment on above: Take 2 tablets by [facility] every 6 hours as needed for pain. [...] tablet by mouth three times daily AMOXICILLIN [id number] Laura Martino STENCIL PRINTER amoxicillin 875 mg / clavulanate 125 mg [...] Comment on above: Take 1 tablet by [facility] every 6 hours as needed (dizziness). mecobalamin [...] Take 1 capsule by [facility] once daily. Multivitamin preparation (2 sources) [...] Comment on above: Take 1 capsule by [facility] once daily. ondansetron 4 mg disintegrating oral [...] 17 VITAMINS 28-0.8 MG TABS VIT-FE FUMARATE-FA [id number] Julissa Connell MD promethazine hydrochloride 12.5 mg [...] 01, 2016 12:00am December 09, 2017 11:25am Cresco Laten (6 sources) Start: 09-18-2019 End: 10-05-2019 Cresco Laten Discontinued 3 NMA PO THREE TIMES A DAY September 18, 2019 12:00am October 05, 2019 3:32pm Start: 09-18-2019 End: 10-05-2019 take 3 capsules by mouth three times daily Cresco Laten Discontinued 3 CAP PO THREE TIMES A DAY September 17, 2019 11:00pm October 05, 2019 2:32pm Start: 09-18-2019 End: 10-05-2019 take 3 capsules by mouth three times daily Cresco Laten Discontinued 3 CAP PO THREE TIMES [...] 2024 12:00am October 01, 2024 12:07am Vitamin Y78-Llqnt Acid (2 sources) Start: 02-17-2021 End: 03-09-2021 Vitamin Y22-Bjxvu Acid Discontinued 1 TABLET SL DAILY February 16, 2021 11:00pm March 09, 2021 9:31am Start: 02-17-2021 End: 03-09-2021 Vitamin S16-Srmzi Acid Disco ntinued 1 TABLET SL DAILY February 17, 2021 12:00am March 09, 2021 10:31am Vitamin M66-Gmood Acid 1,000-400 mcg Tablet, Sublingual (4 sources) Start: 02-17-2021 End: 03-09-2021 Vitamin S17-Jghsa Acid 1,000 -400 mcg Tablet, Sublingual Discontinued [...] Name Value Interpretation Reference Range Facility 25(OH)D3 [facility] 2024 25-hydroxyvitamin D3 [Mass/Vol] 62.0 ng/mL Normal 31.0-80.0 [facility] Comment on above: Order Comment: Speci men Type: BLOOD SPECIMENOrdering Facility: [facility] Address: [address] [place] [address] [place] [address] Result Comment: Clas sification of 25 [place] Vitamin D status: Deficiency/Insufficiency: < or = 30 ng/ml. Sufficiency/Optimal Levels: 31-80 ng/mL Toxicity: > 100 ng/mL. Test performed by chemiluminescent immunoassay. Performed By: #### 1 989-3 ####[facility] LABCLIA [id number] [address] [place] CBC panel Auto (Bld)on 03-01 Erythrocyte distribution width (RBC) [Ratio] 13.2 % Normal 11.5-15.0 [facility] Comment on above: Order Comment: Speci men Type: BLOOD SPECIMENOrdering Facility: [facility] Address: [address] [place] [address] Performed By: #### 5 8410-2 ####[facility] [id number] [address] [place] Hematocrit (Bld) [Volume fraction] 39.7 % Normal 36.0-46.0 [facility] Comment on above: Order Comment: Speci men Type: BLOOD SPECIMENOrdering Facility: [facility] Address: [address] [place] [address] Performed By: #### 5 8410-2 ####[facility] [id number] [address] [place] Hemoglobin (Bld) [Mass/Vol] 13.3 g/dL Normal 11.5-15.5 [facility] Comment on above: Order Comment: Speci men Type: BLOOD SPECIMENOrdering Facility: [facility] Address: [address] [place] [address] Performed By: #### 5 8410-2 ####[facility] HOSPITALNCA [id number] [place] [address] [place] MCH (RBC) [Entitic mass] 28.9 pg Normal 26.0-34.0 [facility] Comment on above: Order Comment: Speci men Type: BLOOD SPECIMENOrdering Facility: [facility] Address: [address] [place] [address] Performed By: #### 5 8410-2 ####[facility] CAROL [id number] [place] [address] [place] MCHC (RBC) [Mass/Vol] 33.5 g/dL Normal 30.5-36.0 [facility] Comment on above: Order Comment: Speci men Type: BLOOD SPECIMENOrdering Facility: [facility] Address: [address] [place] [address] Performed By: #### 5 8410-2 ####[facility] HOSPITALNCAG [id number] [place] [address] [place] MCV (RBC) [Entitic vol] 86.3 fL Normal 80.0-100.0 [facility] Comment on above: Order Comment: Speci men Type: BLOOD SPECIMENOrdering Facility: [facility] Address: [address] [place] [address] Performed By: #### 5 8410-2 ####[facility] HOSPITALJALEN [id number] [place] [address] [place] Nucleated RBC (Bld) [#/Vol] 10*3/uL Normal <0.01 [facility] Comment on above: Order Comment: Speci men Type: BLOOD SPECIMENOrdering Facility: [facility] Address: [address] [place] [address] Performed By: #### 5 8410-2 ####[facility]OSPITALAROLDOLIA [id number] [place] [address] [place] Platelet mean volume (Bld) [Entitic vol] 9.0 fL Normal 9.0-12.7 [facility] Comment on above: Order Comment: Speci men Type: BLOOD SPECIMENOrdering Facility: [facility] Address: [address] [place] [address] Performed By: #### 5 8410-2 ####[facility] JOSE JUANWNCLIA [id number] [place] [address] [place] Platelets (Bld) [#/Vol] 273 10*3/uL Normal 150-400 [facility] Comment on above: Order Comment: Speci men Type: BLOOD SPECIMENOrdering Facility: [facility] Address: [address] [place] [address] Performed By: #### 5 8410-2 ####[facility] HOSPITALNCLIA [id number] [place] [address] [place] RBC (Bld) [#/Vol] 4.60 10*6/uL Normal 3.90-5.20 [facility] Comment on above: Order Comment: Speci men Type: BLOOD SPECIMENOrdering Facility: [facility] Address: [address] [place] [address] Performed By: #### 5 8410-2 ####[facility] HOSPITALNCLIA [id number] [place] [address] [place] WBC (Bld) [#/Vol] 5.90 10*3/uL Normal 3.70-11.00 [facility] Comment on above: Order Comment: Speci men Type: BLOOD SPECIMENOrdering Facility: [facility] Address: [address] [place] [address] Performed By: #### 5 8410-2 ####[facility] HOSPITALNCLIA [id number] [place] [address] [place] Comprehensive metabolic 2000 panelon 03-01-2025 Albumin [Mass/Vol] 4.1 g/dL Normal 3.9-4.9 [facility] Comment on above: Order Comment: Speci men Type: BLOOD SPECIMENOrdering Facility: [facility] Address: [address] [place] [address] Performed By: #### 2 4323-8 ####[facility] HOSPITALAROLDOLIA [id number] [place] [address] [place] ALP [Catalytic activity/Vol] 73 U/L Normal 34-123 [facility] Comment on above: Order Comment: Speci men Type: BLOOD SPECIMENOrdering Facility: [facility] Address: [address] [place] [address] Performed By: #### 2 4323-8 ####[facility]ITALWNCLIA [id number] [place] [address] [place] ALT [Catalytic activity/Vol] 22 U/L Normal 7-38 [facility] Comment on above: Order Comment: Speci men Type: BLOOD SPECIMENOrdering Facility: [facility] Address: [address] [place] [address] Performed By: #### 2 4323-8 ####[facility] HOS[facility]ITALNCLIA [id number] [place] [address] [place] Anion gap [Moles/Vol] 10 mmol/L Normal 8-15 [facility] Comment on above: Order Comment: Speci men Type: BLOOD SPECIMENOrdering Facility: [facility] Address: [address] [place] [address] Performed By: #### 2 4323-8 ####[facility] HOSPITALNCLIA [id number] [place] [address] [place] AST [Catalytic activity/Vol] 23 U/L Normal 13-35 [facility] Comment on above: Order Comment: Speci men Type: BLOOD SPECIMENOrdering Facility: [facility] Address: [address] [place] [address] Performed By: #### 2 4323-8 ####[facility] HOSPITALNCLIA [id number] [place] [address] [place] Bilirubin [Mass/Vol] 0.9 mg/dL Normal 0.2-1.3 [facility] Comment on above: Order Comment: Speci men Type: BLOOD SPECIMENOrdering Facility: [facility] Address: [address] [place], [place] [address] Performed By: #### 2 4323-8 ####[facility] PATRIAWAROLDOLIA [id number] [place] [address] [place] Calcium [Mass/Vol] 9.2 mg/dL Normal 8.5-10.2 [facility] Comment on above: Order Comment: Speci men Type: BLOOD SPECIMENOrdering Facility: [facility] Address: [address] [place] [address] Performed By: #### 2 4323-8 ####[facility] HOSPITALNCLIA [id number] [place] [address] [place] Chloride [Moles/Vol] 104 mmol/L Normal 98-107 [facility] Comment on above: Order Comment: Speci men Type: BLOOD SPECIMENOrdering Facility: [facility] Address: [address] [place] [address] Performed By: #### 2 4323-8 ####[facility] HOSPITALNCLIA [id number] [place] [address] [place] CO2 [Moles/Vol] 24 mmol/L Normal 22-30 [facility] Comment on above: Order Comment: Speci men Type: BLOOD SPECIMENOrdering Facility: [facility] Address: [address] [place] [address] Performed By: #### 2 4323-8 ####[facility]PITALWNCLIA [id number] [place] [address] [place] Creatinine [Mass/Vol] 0.77 mg/dL Normal 0.58-0.96 [facility] Comment on above: Order Comment: Speci men Type: BLOOD SPECIMENOrdering Facility: [facility] Address: [address] [place], [place] [address] Performed By: #### 2 4323-8 ####[facility] HOSPITALNCLIA [id number] [place] [address] [place] eGFRcr SerPlBld CKD-EPI 2020 103 mL/min/1.73m??? Normal >=60 [facility] Comment on above: Order Comment: Telly sams Type: BLOOD SPECIMENOrdering Facility: [facility] Address: [address] [place] [address] Result Comment: Sudha mated Glomerular Filtration Rate [...] actual GFR. Performed By: #### 2 4323-8 ####[facility] HOSPITALNCLI [id number] [place] [address] [place] [facility] Glucose [Mass/Vol] 97 mg/dL Normal 74-99 [facility] Comment on above: Order Comment: Telly sams Type: BLOOD SPECIMENOrdering Facility: [facility] Address: [address] [place] [address] Result Comment: The [place] [employer] (ADA) provides guidance for cutoff [...] Standards of Medical Care in Diabetes 2016, [place] [employer]. Diabetes Care. 2016.39(Suppl 1). Performed By: #### 2 4323-8 ####[facility] HOSPITALNCLI [id number] [place] [address] [place] Potassium [Moles/Vol] 4.3 mmol/L Normal 3.7-5.1 [facility] Comment on above: Order Comment: Speci men Type: BLOOD SPECIMENOrdering Facility: [facility] Address: [address] [place] [address] Performed By: #### 2 4323-8 ####[facility] MILLTOWNCLIA [id number] [place] [address] [place] Protein [Mass/Vol] 6.9 g/dL Normal 6.3-8.0 [facility] Comment on above: Order Comment: Speci men Type: BLOOD SPECIMENOrdering Facility: [facility] Address: [address] [place] [address] Performed By: #### 2 4323-8 ####[facility] MILLTOWNCLIA [id number] [place] [address] [place] Sodium [Moles/Vol] 138 mmol/L Normal 136-144 [facility] Comment on above: Order Comment: Speci men Type: BLOOD SPECIMENOrdering Facility: [facility] Address: [address] [place] [address] Performed By: #### 2 4323-8 ####[facility] MILLTOWNCLIA [id number] [place] [address] [place] Urea nitrogen [Mass/Vol] 16 mg/dL Normal 7-21 [facility] Comment on above: Order Comment: Speci men Type: BLOOD SPECIMENOrdering Facility: [facility] Address: [address] [place] [address] Performed By: #### 2 4323-8 ####[facility] MILLTOWNCLIA [id number] [place] [address] [place] Ferritin SerPl-mCncon 2024 Ferritin [Mass/Vol] 32.2 ng/mL Normal 14.7-205.1 [facility] Comment on above: Order Comment: Speci men Type: BLOOD SPECIMENOrdering Facility: [facility] Address: [address] [place] [address] Performed By: #### 2 276-4, 72892-1 ####[facility] LABCLIA [id number] [place] [address] [place] Folate SerPl-mCncon 03-01-20 Folate [Mass/Vol] 8.0 ng/mL Normal >4.7 [facility] Comment on above: Order Comment: Speci men Type: BLOOD SPECIMENOrdering Facility: [facility] Address: [address] [place] [address] Performed By: #### 2 284-8, 2731-8, 2132-9 ####[facility] LABCLIA [id number] [place] [address] [place] Iron and Iron binding capaci ty panel 03-01-2025 Iron [Mass/Vol] 78 ug/dL Normal 41-186 [facility] Comment on above: Order Comment: Speci men Type: BLOOD SPECIMENOrdering Facility: [facility] Address: [address] [place] [address] Performed By: #### 2 276-4, 02021-1 ####[facility] LABCLIA [id number] [address] [place] Iron binding capacity [Mass/Vol] 364 ug/dL Normal 232-386 [facility] Comment on above: Order Comment: Speci men Type: BLOOD SPECIMENOrdering Facility: [facility] Address: [address] [place] [address] Performed By: #### 2 276-4, 38070-9 ####[facility] LABCLIA [id number] [place] [address] [place] Iron/TIBC [Molar ratio] 21.4 % Normal 15.0-57.0 [facility] Comment on above: Order Comment: Speci men Type: BLOOD SPECIMENOrdering Facility: [facility] Address: [address] [place], [place] [address] Performed By: #### 2 276-4, 55966-5 ####[facility] LABCLIA [id number] [address] [place] PTH-Intact SerPl-mCncon 10-2 Parathyrin.intact [Mass/Vol] 57 pg/mL Normal 15-65 [facility] Comment on above: Order Comment: Speci men Type: BLOOD SPECIMENOrdering Facility: [facility] Address: [address] [place] [address] Performed By: #### 2 284-8, 2731-8, 2132-9 ####[facility] LABCLIA [id number] [address] [place] US THYROID/PARATHYROIDon US [...] 2 points Echogenicity: Hypoechoic, 2 points Shape: Wemms-xezi-sear, 0 points Margin: Lobulated or irregular, 2 [...] Echogenicity cannot be determined, 1 point Shape: Hndix-doeq-kvqp, 0 points Margin: Smooth, 0 points Echogenic [...] not consider stability or previous biopsy results. Chronic Condition [facility] Transcribe Date/Time: Mar 05 2025 5:51A Dictated by : JULIANA PACK MD This examination was interpreted and the report reviewed and electronically signed by: JULIANA PACK MD on Mar 05 2025 9:44AM EST [id number] N Normal [facility] VITAMIN B1 (THIAMINE), WHOLE BLOODon 03-01-2025 Thiamine (Bld) [Moles/Vol] 153.7 nmol/L Normal 84.3-213.3 [facility] Comment on above: Order Comment: Speci men Type: BLOOD SPECIMENOrdering Facility: [facility] Address: [address] [place] [address] Result Comment: This assay measures the concentration of thiamine diphosphate (TDP), the primary active form of vitamin B1. Approximately 90 percent of vitamin B1 present in whole blood is TDP. Thiamine and thiamine monophosphate, which comprise the remaining 10 percent, are not measured. This test was developed, and its performance characteristics determined by the [facility] Department of Pathology and Laboratory Medicine. It has not been cleared or approved by the FDA. The [facility] Department of Pathology and Laboratory Medicine is regulated under CLIA as qualified to perform high-complexity testing. This test is used for clinical purposes. It should not be regarded as investigational or for research. Performed By: #### B 1WB ####[facility] LABCLIA [id number] [address] [facility] Vit B12 SerPl-mCncon 10-24-2 025 Cobalamin (Vitamin B12) [Mass/Vol] 618 pg/mL Normal 232-1245 [facility] Comment on above: Order Comment: Speci men Type: BLOOD SPECIMENOrdering Facility: [facility] Address: [address] [place] [address] Performed By: #### 2 284-8, 2731-8, 2132-9 ####[facility] LABCLIA [id number] [address] CNOVon 01-17-2025 CNOV Office Visit (ENDCMN ) MARY JUNIOR ([id number]) 1990 F Date Time Provider Department 01/17/25 10:40 AM MANUELA ISBELL During your visit today, we recorded the following information about you: Pulse Blood pressure Weight 68/minute 128/85 109.3 kg Aniya Woo MA 01/17/2025 10:05 AM Signed Thank you for choosing the [facility] Department of Endocrinology, Diabetes and Metabolism. Did you know that you need to call 48 hours in advance of your scheduled visit, if you are unable to make your appointment? The [facility]in[facility] [place] thanks you for your commitment, because patients not showing to their appointment results in a lost opportunity for patients to receive world class health care at the [facility]. To Cancel an appointment, please choose one of the following: - Call the Appointment Call Center at [phone] - From [facility], Go to Appointments - Cancel Appts If cancelling, consider your need to reschedule to prevent further delays in your care. To Schedule an appointment, please choose one of the following: - Call the Appointment Call Center at [phone] - From [facility], Go to Appointments - Request an [...] lb) 413 lbs Lowest weight 192 lbs [place] weight: 72.4 kg (159 lb 11 oz) [...] with avocado, meat and cheese. At noon: samoan yogurt with berries , beef jerky No [...] Sig Blood-Glucose Meter,Continuous (FREESTYLE CONNIE 3 READER) [facility] Use to check blood sugar at least four (4) times daily. Blood-Glucose Sensor (FREESTYLE CONNIE 3 PLUS SENSOR) allison Apply new sensor every fifteen (15) days to upper arm. acarbose (PRECOSE) 25 mg tablet Take 2 tablets by mouth three times a day. glucagon 3 mg/actuation nasal spray (BAQSIMI) Use 1 [place] in the nose as needed for low blood sugar. May repeat after 15 minutes using a new device if there is no response. Magnesium Oxide 500 mg cap Take 1 capsule by mouth once daily. Creatinine, Bulk, 100 % powd 1,500 mg once daily. amitriptyline (ELAVIL) 10 mg tablet Take 2 tablets by mouth (more content not included)... Normal [facility] Urgent Care Visit Reporton 0 12-26-2024 Urgent Care Visit Report [facility] 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 Denies fever or chills. [facility] Medical History Reactive hypoglycemia Acute bronchitis, unspecified [...] recently dx???d w/ similar URI complaints. No ljdj-odt-wdmjcwq medications taken to assist. Non-smoker. Requesting PSA [...] normal inspection (more content not included)... Normal [facility] Basic metabolic 2000 panelon 12-05-2024 Anion gap [Moles/Vol] 12 mmol/L Normal 8-15 [facility] Comment on above: Order Comment: Speci men Type: BLOOD SPECIMENOrdering Facility: [facility] Address: [address] [place] [address] Performed By: #### 2 4321-2 ####[facility] MILLTOWNCLIA [id number] [place] [address] [place] Calcium [Mass/Vol] 9.5 mg/dL Normal 8.5-10.2 [facility] Comment on above: Order Comment: Speci men Type: BLOOD SPECIMENOrdering Facility: [facility] Address: [address] [place] [address] Performed By: #### 2 4321-2 ####[facility] MILLTOWNCLIA [id number] [place] [address] [place] Chloride [Moles/Vol] 101 mmol/L Normal 98-107 [facility] Comment on above: Order Comment: Speci men Type: BLOOD SPECIMENOrdering Facility: [facility] Address: [address] [place] [address] Performed By: #### 2 4321-2 ####[facility] MILLTOWNCLIA [id number] [place] [address] [place] CO2 [Moles/Vol] 24 mmol/L Normal 22-30 [facility] Comment on above: Order Comment: Speci men Type: BLOOD SPECIMENOrdering Facility: [facility] Address: [address] [place] [address] Performed By: #### 2 4321-2 ####[facility] MILLTOWNCLIA [id number] [place] [address] [place] Creatinine [Mass/Vol] 0.84 mg/dL Normal 0.58-0.96 [facility] Comment on above: Order Comment: Telly sams Type: BLOOD SPECIMENOrdering Facility: [facility] Address: [address] [place] [address] Performed By: #### 2 4321-2 ####[facility] [id number] [place] [address] [place] eGFRcr SerPlBld CKD-EPI 2020 93 mL/min/1.73m??? Normal >=60 [facility] Comment on above: Order Comment: Telly sams Type: BLOOD SPECIMENOrdering Facility: [facility] Address: [address] [place] [address] Result Comment: Sudha mated Glomerular Filtration Rate [...] Performed By: #### 2 4321-2 ####[facility] [id number] [place] [address] [place] Glucose [Mass/Vol] 82 mg/dL Normal 74-99 [facility] Comment on above: Order Comment: Telly sams Type: BLOOD SPECIMENOrdering Facility: [facility] Address: [address] [place] [address] Result Comment: The [place] Diabetes Association (ADA) provides guidance for cutoff [...] Standards of Medical Care in Diabetes 2016, [place] [employer]. Diabetes Care. 2016.39(Suppl 1). Performed By: #### 2 4321-2 ####[facility] [id number] [place] [address] [place] Potassium [Moles/Vol] 4.4 mmol/L Normal 3.7-5.1 [facility] Comment on above: Order Comment: Speci men Type: BLOOD SPECIMENOrdering Facility: [facility] Address: [address] [place] [address] Performed By: #### 2 4321-2 ####[facility] [id number] [place] [address] [place] Sodium [Moles/Vol] 137 mmol/L Normal 136-144 [facility] Comment on above: Order Comment: Speci men Type: BLOOD SPECIMENOrdering Facility: [facility] Address: [address] [place] [address] Performed By: #### 2 4321-2 ####[facility] [id number] [place] [address] [place] Urea nitrogen [Mass/Vol] 18 mg/dL Normal 7-21 [facility] Comment on above: Order Comment: Speci men Type: BLOOD SPECIMENOrdering Facility: [facility] Address: [address] [place] [address] Performed By: #### 2 4321-2 ####[facility] [id number] [place] [address] [place] TSH SerPl-aCncon 12-05-2024 TSH Qn 1.860 m[IU]/L Normal 0.270-4.200 [facility] Comment on above: Order Comment: Speci men Type: BLOOD SPECIMENOrdering Facility: [facility] Address: [address] [id number] Result Comment: If t he patient is , TSH reference range varies by gestational period: First Trimester (weeks 9-12): 0.180-2.990 mIU/L Second Trimester: 0.110-3.980 mIU/L Third Trimester: 0.480-4.710 mIU/L Luis F Araya et al. A Practical Approach for the Verifications and Determination of Site- and Trimester-Specific Reference Intervals for Thyroid Function tests in . Thyroid, 2019:29:3:412-420. Yoan Lin, et al. 2017 Guidelines of the [place] Thyroid Association for the Diagnosis and Management of Thyroid Disease during and the . Thyroid, 2017:27:3:315-389. Performed By: #### 3 016-3 ####[facility] LABCLIA [id number] [place] [id number] [facility] 12-04-2024 CNPN Telephone (EMQ) MARY JUNIOR ([id number]) 1990 F Date Time Provider Department 12/04/24 MANUELA ISBELL During your visit today, we recorded the following information about you: Heidi Horowitz 12/04/2024 3:27 PM Signed Lvm for pt stating that Dr. Isbell will be out of office on 12/20/24 and that we need to reschedule her appointment. Rescheduled appointment to 01/17/25 at 10:40am. Will send [employer] message. Allergies As of Date: 12/04/2024 Noted [...] 3 mg/actuation nasal spray (BAQSIMI) Use 1 [place] in the nose as needed for low [...] Status:Closed by HEIDI HOROWITZ on 12/04/24 Normal [facility] Abdomen/Pelvis W IV Cont ONL Yon 11-09-2024 Abdomen/Pelvis W IV Cont ONLY [facility] Imaging Services [address] [place] [id number] Abdomen/Pelvis W IV Cont ONLY MR#: [id number] Acct: [id number] Name: MARY JUNIOR RICARDO Rep #: [id number] : 1990 F 34 From: J Carlos Bai MD PCP: Dr. Asif Haque MD Status: [facility] ER Study: Abdomen/Pelvis W IV Cont ONLY Date of Exam: Exam# [id number] Ordering Dr: Zan Pascal DO PROCEDURE: ABDOMEN/PELVIS [...] or air. Normal appendix visualized Reading Location: [facility] CC: Dr. Zan Pascal, ; Dr. sAif Haque MD Chronic Condition Nurse: Signed Normal [facility] Absolute lymphocyte countOrd ered By: Zan Pascal on 11-09-2024 Lymphocytes Auto (Unsp spec) [#/Vol] 1.11 10*3/uL 0.83-4.51 [facility] Absolute neutrophil countOrd ered By: Zan Pascal on 11-09-2024 Neutrophils (Bld) [#/Vol] 1.7 10*3/uL Low 2.0-7.7 [facility] Anion gap in Serum or Plasma Ordered By: Zan Pascal on 11-09-2024 Anion gap [Moles/Vol] 15 mmol/L 5-15 [facility] Automated lymphocyte count a s percentage of total leukocytesOrdered By: Zan Pascal on 11-09-2024 Lymphocytes/100 WBC Auto (Unsp spec) 32.4 % 19-41 [facility] BUN/creatinine ratioOrdered By: Zan Pascal on 11-09-2024 Urea nitrogen/Creatinine [Mass ratio] 11.8 mg/mg 10-20 [facility] Basophil percentageOrdered B y: Zan Pascal on 11-09-2024 Basophils/100 WBC (Bld) 0.3 % 0-1 [facility] Bilirubin Test strip Ql (U)O rdered By: Zan Pascal on 11-09-2024 Bilirubin Ql (U) Negative Negative [facility] Bilirubin, totalOrdered By: Zan Pascal on 11-09-2024 Bilirubin [Mass/Vol] 0.71 mg/dL 0.00-1.30 [facility] CBC W/Diff, Automatedon Absolute Lymph 1.11 X10 3/uL Normal 0.83-4.51 [facility] Comment on above: Performed By: #### L 500.4050, L501.2450, L100.0100 ####[facility] [address] [place], [address] Absolute Neut 1.7 X10 3/uL Low 2.0-7.7 [facility] Comment on above: Performed By: #### L 500.4050, L501.2450, L100.0100 ####[facility] [address] [place], [address] Basophils/100 WBC (Bld) 0.3 % Normal 0-1 [facility] Comment on above: Performed By: #### L 500.4050, L501.2450, L100.0100 ####[facility] [address] [place], [address] Eosinophils/100 WBC (Bld) 1.7 % Normal 0-5 [facility] Comment on above: Performed By: #### L 500.4050, L501.2450, L100.0100 ####[facility] [address] [place], [address] Erythrocyte distribution width (RBC) [Ratio] 13.0 % Normal 11.6-14.6 [facility] Comment on above: Performed By: #### L 500.4050, L501.2450, L100.0100 ####[facility] [address] [place], [address] Hematocrit (Bld) [Volume fraction] 41.4 % Normal 37-47 [facility] Comment on above: Performed By: #### L 500.4050, L501.2450, L100.0100 ####[facility] [address] [place], [address] Hemoglobin (Bld) [Mass/Vol] 13.9 g/dL Normal 12.0-15.0 [facility] Comment on above: Performed By: #### L 500.4050, L501.2450, L100.0100 ####[facility] [address] [place], [address] IG% 0.300 Normal 0.0-0.9 [facility] Comment on above: Result Comment: IG% - Immature Granulocytes (promyelocytes, myelocytes and metamyelocytes) > 1% indicates that a LEFT SHIFT is Present. Performed By: #### L 500.4050, L501.2450, L100.0100 ####[facility] [address] [place], [address] Lymphocytes/100 WBC (Bld) 32.4 % Normal 19-41 [facility] Comment on above: Performed By: #### L 500.4050, L501.2450, L100.0100 ####[facility] [address] [place], [address] MCH (RBC) [Entitic mass] 29.2 pg Normal 27.0-32.0 [facility] Comment on above: Performed By: #### L 500.4050, L501.2450, L100.0100 ####[facility] [address] [place], [address] MCHC (RBC) [Mass/Vol] 33.6 g/dL Normal 32-36 [facility] Comment on above: Performed By: #### L 500.4050, L501.2450, L100.0100 ####[facility] [address] [place], [address] MCV (RBC) [Entitic vol] 87.0 fL Normal 81-99 [facility] Comment on above: Performed By: #### L 500.4050, L501.2450, L100.0100 ####[facility] [address] [place], [address] Monocytes/100 WBC (Bld) 14.9 % High 0-10 [facility] Comment on above: Performed By: #### L 500.4050, L501.2450, L100.0100 ####[facility] [address] [place], [address] Neutrophils/100 WBC (Bld) 50.4 % Normal 47-70 [facility] Comment on above: Performed By: #### L 500.4050, L501.2450, L100.0100 ####[facility] [address] [place], [address] Nucleated RBC (Bld) [#/Vol] 0 10*3/uL Normal 0-5 [facility] Comment on above: Performed By: #### L 500.4050, L501.2450, L100.0100 ####[facility] [address] [place], [address] Platelet mean volume (Bld) [Entitic vol] 9.7 fL Normal 6.2-12.0 [facility] Comment on above: Performed By: #### L 500.4050, L501.2450, L100.0100 ####[facility] [address] [place], [address] Platelets (Bld) [#/Vol] 222 10*3/uL Normal 150-450 [facility] Comment on above: Performed By: #### L 500.4050, L501.2450, L100.0100 ####[facility] [address] [place], [address] RBC (Bld) [#/Vol] 4.76 10*6/uL Normal 4.2-5.4 [facility] Comment on above: Performed By: #### L 500.4050, L501.2450, L100.0100 ####[facility] [address] [place], [address] RDW SD 41.7 fl Normal 35.1-43.9 [facility] Comment on above: Performed By: #### L 500.4050, L501.2450, L100.0100 ####[facility] [address] [place], [address] WBC (Bld) [#/Vol] 3.4 10*3/uL Low 4.4-11.0 [facility] Comment on above: Performed By: #### L 500.4050, L501.2450, L100.0100 ####[facility] [address] [place], [address] Carbon dioxide, total [Moles /volume] in Central venous bloodOrdered By: Zna Pascal on 11-09-2024 CO2 [Moles/Vol] 20.8 mmol/L Low 21.0-32.0 [facility] Chloride assayOrdered By: Norm Pascal on 11-09-2024 Chloride [Moles/Vol] 101 mmol/L 98-108 [facility] Comprehensive Metabolic Prof ilon 11-09-2024 Albumin [Mass/Vol] 3.6 g/dL Normal 3.5-5.0 [facility] Comment on above: Performed By: #### L 500.4050, L501.2450, L100.0100 ####[facility] [address] [place], [address] Albumin/Globulin [Mass ratio] 1.1 {ratio} Normal 0.9-2.4 [facility] Comment on above: Performed By: #### L 500.4050, L501.2450, L100.0100 ####[facility] [address] [place], [address] ALK PHOS 67 U/L Normal 35-104 [facility] Comment on above: Performed By: #### L 500.4050, L501.2450, L100.0100 ####[facility] [address] [place], [address] ALT [Catalytic activity/Vol] 22 U/L Normal <=34 [facility] Comment on above: Performed By: #### L 500.4050, L501.2450, L100.0100 ####[facility] [address] [place], [address] AST [Catalytic activity/Vol] 23 U/L Normal <=31 [facility] Comment on above: Performed By: #### L 500.4050, L501.2450, L100.0100 ####[facility] [address] [place], [address] Bilirubin [Mass/Vol] 0.71 mg/dL Normal 0.00-1.30 [facility] Comment on above: Performed By: #### L 500.4050, L501.2450, L100.0100 ####[facility] [address] [place], [address] BUN/CRE 11.8 RATIO Normal 10-20 [facility] Comment on above: Performed By: #### L 500.4050, L501.2450, L100.0100 ####[facility] [address] [place], [address] Calcium [Mass/Vol] 8.7 mg/dL Normal 7.6-11.0 [facility] Comment on above: Performed By: #### L 500.4050, L501.2450, L100.0100 ####[facility] [address] [place], [address] Chloride [Moles/Vol] 101 mmol/L Normal 98-108 [facility] Comment on above: Performed By: #### L 500.4050, L501.2450, L100.0100 ####[facility] [address] [place], [address] CO2 [Moles/Vol] 20.8 mmol/L Low 21.0-32.0 [facility] Comment on above: Performed By: #### L 500.4050, L501.2450, L100.0100 ####[facility] [address] [place], [address] Creatinine [Mass/Vol] 0.85 mg/dL Normal 0.70-1.20 [facility] Comment on above: Performed By: #### L 500.4050, L501.2450, L100.0100 ####[facility] [address] [place], [address] ECRCL 115.82 ml/min Normal 50-250 [facility] Comment on above: Performed By: #### L 500.4050, L501.2450, L100.0100 ####[facility] [address] [place], [address] GAP 15 Normal 5-15 [facility] Comment on above: Performed By: #### L 500.4050, L501.2450, L100.0100 ####[facility] [address] [place], [address] GFR/1.73 sq M.predicted among non-blacks MDRD (S/P/Bld) [Vol rate/Area] 92 mL/min/{1.73_m2} Normal >60 [facility] Comment on above: Result Comment: mL/m in/1.73m2 CKD-EPI Creatinine Equation (2020) Performed By: #### L 500.4050, L501.2450, L100.0100 ####[facility] [address] [place], [address] Globulin (S) [Mass/Vol] 3.2 g/dL Normal 2.2-4.2 [facility] Comment on above: Performed By: #### L 500.4050, L501.2450, L100.0100 ####[facility] [address] [place], [address] Glucose [Mass/Vol] 84 mg/dL Normal 70-99 [facility] Comment on above: Performed By: #### L 500.4050, L501.2450, L100.0100 ####[facility] [address] [place], [address] Potassium [Moles/Vol] 3.6 mmol/L Normal 3.3-5.1 [facility] Comment on above: Performed By: #### L 500.4050, L501.2450, L100.0100 ####[facility] [address] [place], [address] Sodium [Moles/Vol] 137 mmol/L Normal 133-145 [facility] Comment on above: Performed By: #### L 500.4050, L501.2450, L100.0100 ####[facility] [address] [place], [address] T PROT 6.8 g/dL Normal 5.9-8.4 [facility] Comment on above: Performed By: #### L 500.4050, L501.2450, L100.0100 ####[facility] [address] [place], [address] Urea nitrogen [Mass/Vol] 10 mg/dL Normal 4-19 [facility] Comment on above: Performed By: #### L 500.4050, L501.2450, L100.0100 ####[facility] [address] [place], [address] Emergency Department Summary on 11-09-2024 Emergency Department Summary [facility] Medical Records Department [address] [place] [address] Emergency Department Summary 11/09/24 MR#: [id number] Acct: [id number] Name: MARY JUNIOR RICARDO Rep #: [id number] : 1990 34 From: Zan Pascal DO [...] a low-grade fever of 100 at home. [facility] Medical History Reactive hypoglycemia Acute bronchitis, unspecified [...] mouth swe (more content not included)... Normal [facility] Eosinophil percentageOrdered By: Zan Pascal on 11-09-2024 Eosinophils/100 WBC (Bld) 1.7 % 0-5 [facility] Erythrocyte distribution wid th ratioOrdered By: Zan Pascal on 11-09-2024 Erythrocyte distribution width (RBC) [Ratio] 13.0 % 11.6-14.6 [facility] Erythrocyte distribution wid th standard deviationOrdered By: Zan Pascal on 11-09-2024 Erythrocyte distribution width (RBC) [Ratio] 41.7 fl 35.1-43.9 [facility] Glomerular filtration rate ( GFR) estimation/1.73 sq m using serum, plasma, or whole bOrdered By: Zan Pascal on 11-09-2024 GFR/1.73 sq M.predicted among non-blacks MDRD (S/P/Bld) [Vol rate/Area] 92 mL/min/{1.73_m2} >60 [facility] Comment on above: mL/min/1.73m2 CKD-EP I Creatinine Equation (2020) Hematocrit Auto (Bld) [Volum e fraction]Ordered By: Zan Pascal on 11-09-2024 Hematocrit (Bld) [Volume fraction] 41.4 % 37-47 [facility] Hemoglobin measurementOrdere d By: Zan Pascal on 11-09-2024 Hemoglobin (Bld) [Mass/Vol] 13.9 g/dL 12.0-15.0 [facility] Immature granulocytes/100 WB C Auto (Bld)Ordered By: Zan Pascal on 11-09-2024 Immature granulocytes/100 WBC (Bld) 0.300 % 0.0-0.9 [facility] Comment on above: IG% - Immature Granu locytes (promyelocytes, myelocytes and metamyelocytes) > 1% indicates that a LEFT SHIFT is Present. Ketones Test strip Ql (U)Ord ered By: Zan Pascal on 11-09-2024 Ketones Ql (U) 150 mg/dl Abnormal Negative [facility] Comment on above: CRITICAL VALUE *H Laboratory - Chemistry and C hemistry - challengeOrdered By: Zan Pascal on 11-09-2024 AST [Catalytic activity/Vol] 23 U/L <32 [facility] Lipaseon 11-09-2024 Lipase [Catalytic activity/Vol] 20 U/L Normal 13-75 [facility] Comment on above: Result Comment: Gene decker note: LIPASE revised reference range effective 22. New Lipase methodology. Expected to produce lower values than the previous assay method. NEW Reference Range: 13 - 75 U/L Performed By: #### L 500.4050, L501.2450, L100.0100 ####[facility] [address] [facility] [place], [address] Lipase measurementOrdered By : Zan Pascal on 11-09-2024 Lipase [Catalytic activity/Vol] 20 U/L 13-75 [facility] Comment on above: Please note:LIPASE r evised reference range effective 22. New Lipase methodology. Expected to produce lower values than the previous assay method. NEW Reference Range: 13 - 75 U/L MCV (mean corpuscular volume ) determinationOrdered By: Zan Pascal on 11-09-2024 MCV (RBC) [Entitic vol] 87.0 fL 81-99 [facility] Mean corpuscular hemoglobin (MCH) determinationOrdered By: aZn Pascal on 11-09-2024 MCH (RBC) [Entitic mass] 29.2 pg 27.0-32.0 [facility] Mean corpuscular hemoglobin concentration (MCHC) determinationOrdered By: Zan Pascal on 11-09-2024 MCHC (RBC) [Mass/Vol] 33.6 g/dL 32-36 [facility] Mean platelet volume determi nationOrdered By: Zan Pascal on 11-09-2024 Platelet mean volume (Bld) [Entitic vol] 9.7 fL 6.2-12.0 [facility] Microscopic analysis of urin e for red blood cells (RBC)Ordered By: Zan Pascal on 11-09-2024 Microscopic analysis of urine for red blood cells (RBC) 0 SEEN /hpf 0-5 [facility] Monocyte percentageOrdered B y: Zan Pascal on 11-09-2024 Monocytes/100 WBC (Bld) 14.9 % High 0-10 [facility] Mucus LM Ql (Urine sed)Order ed By: Zan Pascal on 11-09-2024 Mucus Ql (Urine sed) 0 SEEN /hpf [facility] Neutrophil percentageOrdered By: Zan Pascal on 11-09-2024 Neutrophils/100 WBC (Bld) 50.4 % 47-70 [facility] Nitrite Test strip Ql (U)Ord ered By: Zan Pascal on 11-09-2024 Nitrite Ql (U) Negative Negative [facility] Nucleated red blood cell per centageOrdered By: Zan Pascal on 11-09-2024 Nucleated RBC/100 WBC (Bld) [Ratio] 0 % 0-5 [facility] Platelet countOrdered By: Norm Pascal on 11-09-2024 Platelets (Bld) [#/Vol] 222 10*3/uL 150-450 [facility] Potassium measurement (mass/ volume)Ordered By: Zan Pascal on 11-09-2024 Potassium (Unsp spec) [Mass/Vol] 3.6 mmol/L 3.3-5.1 [facility] Protein Test strip Ql (U)Ord ered By: Zan Pascal on 11-09-2024 Protein Ql (U) 15 mg/dl High Negative [facility] RBC Auto (Bld) [#/Vol]Ordere d By: Zan Pascal on 11-09-2024 RBC (Bld) [#/Vol] 4.76 10*6/uL 4.2-5.4 [facility] Serum creatinine measurement (mass/volume)Ordered By: Zan Pascal on 11-09-2024 Creatinine [Mass/Vol] 0.85 mg/dL 0.70-1.20 [facility] Serum globulin measurementOr dered By: Zan Pascal on 11-09-2024 Globulin (S) [Mass/Vol] 3.2 g/dL 2.2-4.2 [facility] Serum glucose measurement (m ass/volume)Ordered By: Zan Pascal on 11-09-2024 Glucose [Mass/Vol] 84 mg/dL 70-99 [facility] Serum or plasma alanine madden otransferase (ALT) measurementOrdered By: Zan Pascal on 11-09-2024 ALT [Catalytic activity/Vol] 22 U/L <35 [facility] Serum or plasma albumin jose urement (mass/volume)Ordered By: Zan Pascal on 11-09-2024 Albumin [Mass/Vol] 3.6 g/dL 3.5-5.0 [facility] Serum or plasma albumin/glob ulin mass ratioOrdered By: Zan Pascal 11-09-2024 Albumin/Globulin [Mass ratio] 1.1 {ratio} 0.9-2.4 [facility] Serum or plasma alkaline sherry sphatase measurementOrdered By: Zan Pascal 11-09-2024 ALP [Catalytic activity/Vol] 67 U/L 35-104 [facility] Serum or plasma calcium jose urement (mass/volume)Ordered By: Zan Pascal on 11-09-2024 Calcium [Mass/Vol] 8.7 mg/dL 7.6-11.0 [facility] Serum or plasma urea nitroge n measurement (mass/volume)Ordered By: Zan Pascal on 11-09-2024 Urea nitrogen [Mass/Vol] 10 mg/dL 4-19 [facility] Sodium levelOrdered By: Zan Pascal on 11-09-2024 Sodium [Moles/Vol] 137 mmol/L 133-145 [facility] Squamous epithelial cells de tection in urine sediment by light microscopyOrdered By: Zan Pascal on 11-09-2024 Epithelial cells.squamous LM Ql (Urine sed) 0-5 SEEN /hpf - [facility] Total proteinOrdered By: Norma Pascal on 11-09-2024 Protein [Mass/Vol] 6.8 g/dL 5.9-8.4 [facility] Urinalysis, Completeon 11-09 EPI,SQUAMOUS 0-5 SEEN Normal - [facility] Comment on above: Order Comment: CRITI FANG VALUE CALLED TO SWEETIE SO 11/09/24 1007 Pushpa Renae. RESULTS READ BACK BY SAME. CLEAN CATCH Performed By: #### L 400.0001 #### [facility] [address] [place] [address] BACTERIA 0 SEEN Normal None Seen [facility] Comment on above: Order Comment: CRITI FANG VALUE CALLED TO SEWETIE SO 11/09/24 1007 Pushpa Renae. RESULTS READ BACK BY SAME. CLEAN CATCH Performed By: #### L 400.0001 #### [facility] [address] [facility] [address] Mucus Ql (Urine sed) 0 SEEN Normal [facility] Comment on above: Order Comment: CRITI FANG VALUE CALLED TO SWEETIE SO 11/09/24 1007 Pushpa Renae. RESULTS READ BACK BY SAME. CLEAN CATCH Performed By: #### L 400.0001 #### [facility] [address] [facility] [address] RBC 0 SEEN Normal 0-5 [facility] Comment on above: Order Comment: CRITI FANG VALUE CALLED TO SWEETIE SO 11/09/24 1007 Pushpa Renae. RESULTS READ BACK BY SAME. CLEAN CATCH Performed By: #### L 400.0001 #### [facility] [address] [facility] [id number] WBC 0 SEEN Normal 0-5 [facility] Comment on above: Order Comment: CRITI FANG VALUE CALLED TO SWEETIE SO 11/09/24 Humera Renae. RESULTS READ BACK BY SAME. CLEAN CATCH Performed By: #### L 400.0001 #### [facility] [address] [place], [address] Urine clarityOrdered By: Norma Pascal on 11-09-2024 Clarity (U) Clear Clear [facility] Urine color determinationOrd ered By: Zan Pascal on 11-09-2024 Color (U) Yellow Yellow [facility] Urine glucose detectionOrder ed By: Zan Pascal on 11-09-2024 Glucose Ql (U) Normal mg/dl Normal [facility] Urine leukocyte esterase det ection by dipstickOrdered By: Zan Pascal on 11-09-2024 Leukocyte esterase Test strip Ql (U) Negative Negative [facility] Urine pHOrdered By: Zan minor on 11-09-2024 pH (U) 6.0 [pH] 5.0 - 8.0 [facility] Urine sediment bacteria coun t by microscopy (number/high power field)Ordered By: Zan Pascla on 11-09-2024 Bacteria LM.HPF (Urine sed) [#/Area] 0 /[HPF] None Seen [facility] Urine specific gravity measu rementOrdered By: Zan Pascal on 11-09-2024 Specific gravity (U) [Rel density] 1.015 1.002-1.030 [facility] Urine urobilinogen measureme ntOrdered By: Zan Pascal on 11-09-2024 Urobilinogen Ql (U) Normal mg/dl Normal [facility] White blood cell (WBC) count Ordered By: Zan Pascal on 11-09-2024 WBC (Bld) [#/Vol] 3.4 10*3/uL Low 4.4-11.0 [facility] White blood cell countOrdere d By: Zan Pascal on 11-09-2024 White blood cell count 0 SEEN /hpf 0-5 [facility] Abdomen/Pelvis W IV Cont ONL Yon 11-07-2024 Abdomen/Pelvis W IV Cont ONLY [facility] Imaging Services [address] [place], [place] [address] Abdomen/Pelvis W IV Cont ONLY MR#: [id number] Acct: [id number] Name: MARY JUNIOR Rep #: [id number] : 1990 F 34 From: Dominick Hurst MD PCP: Dr. Asif Haque MD Status: REG ER Study: Abdomen/Pelvis W IV Cont ONLY Date of Exam: Exam# [id number] Ordering Dr: Nadir Ortiz DO PROCEDURE: ABDOMEN/PELVIS [...] ONLY IMPRESSION: No acute findings. Reading Location: [place] [address] CC: Dr. Asif Haque MD; Nadir Ortiz DO Chronic Condition Nurse: Signed Normal [facility] Absolute lymphocyte countOrd ered By: Nadir Ortiz on 11-07-2024 Lymphocytes Auto (Unsp spec) [#/Vol] 0.73 10*3/uL Low 0.83-4.51 [facility] Absolute neutrophil countOrd ered By: Nadir Ortiz on 11-07-2024 Neutrophils (Bld) [#/Vol] 6.9 10*3/uL 2.0-7.7 [facility] Anion gap in Serum or Plasma Ordered By: Nadir Ortiz on 11-07-2024 Anion gap [Moles/Vol] 12 mmol/L 5-15 [facility] Automated lymphocyte count a s percentage of total leukocytesOrdered By: Nadir Ortiz on 11-07-2024 Lymphocytes/100 WBC Auto (Unsp spec) 8.9 % Low 19-41 [facility] BUN/creatinine ratioOrdered By: Nadir Ortiz on 11-07-2024 Urea nitrogen/Creatinine [Mass ratio] 14.4 mg/mg - [facility] Basic Metabolic Profile (BMP )on 11-07-2024 BUN/CRE 14.4 RATIO Normal 02-25 [facility] Comment on above: Performed By: #### L 500.2500, L100.0100, L501.2450, L500.3400, L501.5200 ####[facility] [address] [place], [address] Calcium [Mass/Vol] 8.9 mg/dL Normal 7.6-11.0 [facility] Comment on above: Performed By: #### L 500.2500, L100.0100, L501.2450, L500.3400, L501.5200 ####[facility] [address] [place], [address] Chloride [Moles/Vol] 103 mmol/L Normal 98-108 [facility] Comment on above: Performed By: #### L 500.2500, L100.0100, L501.2450, L500.3400, L501.5200 ####[facility] [address] [place], [address] CO2 [Moles/Vol] 22.8 mmol/L Normal 21.0-32.0 [facility] Comment on above: Performed By: #### L 500.2500, L100.0100, L501.2450, L500.3400, L501.5200 ####[facility] [address] [place], [address] Creatinine [Mass/Vol] 0.99 mg/dL Normal 0.70-1.20 [facility] Comment on above: Performed By: #### L 500.2500, L100.0100, L501.2450, L500.3400, L501.5200 ####[facility] [address] [place], [address] ECRCL 102.42 ml/min Normal 50-250 [facility] Comment on above: Performed By: #### L 500.2500, L100.0100, L501.2450, L500.3400, L501.5200 ####[facility] [address] [place], [address] GAP 12 Normal 5-15 [facility] Comment on above: Performed By: #### L 500.2500, L100.0100, L501.2450, L500.3400, L501.5200 ####[facility] [address] [place], [address] GFR/1.73 sq M.predicted among non-blacks MDRD (S/P/Bld) [Vol rate/Area] 77 mL/min/{1.73_m2} Normal >60 [facility] Comment on above: Result Comment: mL/m in/1.73m2 CKD-EPI Creatinine Equation (2020) Performed By: #### L 500.2500, L100.0100, L501.2450, L500.3400, L501.5200 ####[facility] [address] [place], [address] Glucose [Mass/Vol] 100 mg/dL High 70-99 [facility] Comment on above: Performed By: #### L 500.2500, L100.0100, L501.2450, L500.3400, L501.5200 ####[facility] [address] [place], [address] Potassium [Moles/Vol] 3.8 mmol/L Normal 3.3-5.1 [facility] Comment on above: Performed By: #### L 500.2500, L100.0100, L501.2450, L500.3400, L501.5200 ####[facility] [address] [place], [address] Sodium [Moles/Vol] 138 mmol/L Normal 133-145 [facility] Comment on above: Performed By: #### L 500.2500, L100.0100, L501.2450, L500.3400, L501.5200 ####[facility] [address] [place], [address] Urea nitrogen [Mass/Vol] 14 mg/dL Normal 4-19 [facility] Comment on above: Performed By: #### L 500.2500, L100.0100, L501.2450, L500.3400, L501.5200 ####[facility] [address] [place], [address] Basophil percentageOrdered B y: Nadir Ortiz on 11-07-2024 Basophils/100 WBC (Bld) 0.1 % 0-1 [facility] Bilirubin directOrdered By: Nadir Ortiz on 11-07-2024 Bilirubin.direct [Mass/Vol] 0.30 mg/dL 0.00-0.30 [facility] Bilirubin, totalOrdered By: Nadir Ortiz on 11-07-2024 Bilirubin [Mass/Vol] 0.73 mg/dL 0.00-1.30 [facility] CBC W/Diff, Automatedon Absolute Lymph 0.73 X10 3/uL Low 0.83-4.51 [facility] Comment on above: Performed By: #### L 500.2500, L100.0100, L501.2450, L500.3400, L501.5200 ####[facility] [address] [place], [address] Absolute Neut 6.9 X10 3/uL Normal 2.0-7.7 [facility] Comment on above: Performed By: #### L 500.2500, L100.0100, L501.2450, L500.3400, L501.5200 ####[facility] [address] [place], [address] Basophils/100 WBC (Bld) 0.1 % Normal 0-1 [facility] Comment on above: Performed By: #### L 500.2500, L100.0100, L501.2450, L500.3400, L501.5200 ####[facility] [address] [place], [address] Eosinophils/100 WBC (Bld) 0.9 % Normal 0-5 [facility] Comment on above: Performed By: #### L 500.2500, L100.0100, L501.2450, L500.3400, L501.5200 ####[facility] [address] [place], [address] Erythrocyte distribution width (RBC) [Ratio] 13.5 % Normal 11.6-14.6 [facility] Comment on above: Performed By: #### L 500.2500, L100.0100, L501.2450, L500.3400, L501.5200 ####[facility] [address] [place], [address] Hematocrit (Bld) [Volume fraction] 41.0 % Normal 37-47 [facility] Comment on above: Performed By: #### L 500.2500, L100.0100, L501.2450, L500.3400, L501.5200 ####[facility] [address] [place], [address] Hemoglobin (Bld) [Mass/Vol] 13.7 g/dL Normal 12.0-15.0 [facility] Comment on above: Performed By: #### L 500.2500, L100.0100, L501.2450, L500.3400, L501.5200 ####[facility] [address] [place], [address] IG% 0.400 Normal 0.0-0.9 [facility] Comment on above: Result Comment: IG% - Immature Granulocytes (promyelocytes, myelocytes and metamyelocytes) > 1% indicates that a LEFT SHIFT is Present. Performed By: #### L 500.2500, L100.0100, L501.2450, L500.3400, L501.5200 ####[facility] [address] [place], [address] Lymphocytes/100 WBC (Bld) 8.9 % Low 19-41 [facility] Comment on above: Performed By: #### L 500.2500, L100.0100, L501.2450, L500.3400, L501.5200 ####[facility] [address] [place], [address] MCH (RBC) [Entitic mass] 29.3 pg Normal 27.0-32.0 [facility] Comment on above: Performed By: #### L 500.2500, L100.0100, L501.2450, L500.3400, L501.5200 ####[facility] [address] [place], [address] MCHC (RBC) [Mass/Vol] 33.4 g/dL Normal 32-36 [facility] Comment on above: Performed By: #### L 500.2500, L100.0100, L501.2450, L500.3400, L501.5200 ####[facility] [address] [place], [address] MCV (RBC) [Entitic vol] 87.8 fL Normal 81-99 [facility] Comment on above: Performed By: #### L 500.2500, L100.0100, L501.2450, L500.3400, L501.5200 ####[facility] [address] [place], [address] Monocytes/100 WBC (Bld) 4.9 % Normal 0-10 [facility] Comment on above: Performed By: #### L 500.2500, L100.0100, L501.2450, L500.3400, L501.5200 ####[facility] [address] [place], [address] Neutrophils/100 WBC (Bld) 84.8 % High 47-70 [facility] Comment on above: Performed By: #### L 500.2500, L100.0100, L501.2450, L500.3400, L501.5200 ####[facility] [address] [place], [address] Nucleated RBC (Bld) [#/Vol] 0 10*3/uL Normal 0-5 [facility] Comment on above: Performed By: #### L 500.2500, L100.0100, L501.2450, L500.3400, L501.5200 ####[facility] [address] [place], [address] Platelet mean volume (Bld) [Entitic vol] 9.7 fL Normal 6.2-12.0 [facility] Comment on above: Performed By: #### L 500.2500, L100.0100, L501.2450, L500.3400, L501.5200 ####[facility] [address] [place], [address] Platelets (Bld) [#/Vol] 239 10*3/uL Normal 150-450 [facility] Comment on above: Performed By: #### L 500.2500, L100.0100, L501.2450, L500.3400, L501.5200 ####[facility] [address] [place], [address] RBC (Bld) [#/Vol] 4.67 10*6/uL Normal 4.2-5.4 [facility] Comment on above: Performed By: #### L 500.2500, L100.0100, L501.2450, L500.3400, L501.5200 ####[facility] [address] [place], [address] RDW SD 43.2 fl Normal 35.1-43.9 [facility] Comment on above: Performed By: #### L 500.2500, L100.0100, L501.2450, L500.3400, L501.5200 ####[facility] [address] [place], [address] WBC (Bld) [#/Vol] 8.2 10*3/uL Normal 4.4-11.0 [facility] Comment on above: Performed By: #### L 500.2500, L100.0100, L501.2450, L500.3400, L501.5200 ####[facility] [address] [place], [address] Carbon dioxide, total [Moles /volume] in Central venous bloodOrdered By: Nadir Ortiz on 11-07-2024 CO2 [Moles/Vol] 22.8 mmol/L 21.0-32.0 [facility] Chloride assayOrdered By: Nery Ortiz on 11-07-2024 Chloride [Moles/Vol] 103 mmol/L 98-108 [facility] Emergency Department Summary on 11-07-2024 Emergency Department Summary [facility] Medical Records Department [address] [place] [address] Emergency Department Summary 11/07/24 MR#: [id number] Acct: [id number] Name: INDRAMARY RICARDO Rep #: [id number] : 1990 34 From: Nadir Ortiz DO PCP: Dr. Asif Haque MD Status:DEP [...] symptoms and therefore comes in for evaluation [facility] Medical History Acute bronchitis, unspecified Collin's thyroiditis [...] EOMs in (more content not included)... Normal [facility] Eosinophil percentageOrdered By: Nadir Ortiz on 11-07-2024 Eosinophils/100 WBC (Bld) 0.9 % 0-5 [facility] Erythrocyte distribution wid th ratioOrdered By: Nadir Ortiz on 11-07-2024 Erythrocyte distribution width (RBC) [Ratio] 13.5 % 11.6-14.6 [facility] Erythrocyte distribution wid th standard deviationOrdered By: Nadir Ortiz on 11-07-2024 Erythrocyte distribution width (RBC) [Ratio] 43.2 fl 35.1-43.9 [facility] Glomerular filtration rate ( GFR) estimation/1.73 sq m using serum, plasma, or whole bOrdered By: Nadir Ortiz on 11-07-2024 GFR/1.73 sq M.predicted among non-blacks MDRD (S/P/Bld) [Vol rate/Area] 77 mL/min/{1.73_m2} >60 [facility] Comment on above: mL/min/1.73m2 CKD-EP I Creatinine Equation (2020) Hematocrit Auto (Bld) [Volum e fraction]Ordered By: Nadir Ortiz on 11-07-2024 Hematocrit (Bld) [Volume fraction] 41.0 % 37-47 [facility] Hemoglobin measurementOrdere d By: Nadir Ortiz on 11-07-2024 Hemoglobin (Bld) [Mass/Vol] 13.7 g/dL 12.0-15.0 [facility] Immature granulocytes/100 WB C Auto (Bld)Ordered By: Nadir Ortiz on 11-07-2024 Immature granulocytes/100 WBC (Bld) 0.400 % 0.0-0.9 [facility] Comment on above: IG% - Immature Granu locytes (promyelocytes, myelocytes and metamyelocytes) > 1% indicates that a LEFT SHIFT is Present. Laboratory - Chemistry and C hemistry - challengeOrdered By: Nadir Ortiz on 11-07-2024 AST [Catalytic activity/Vol] 21 U/L <32 [facility] Lipaseon 11-07-2024 Lipase [Catalytic activity/Vol] 35 U/L Normal 13-75 [facility] Comment on above: Result Comment: Plea se note: LIPASE revised reference range effective 22. New Lipase methodology. Expected to produce lower values than the previous assay method. NEW Reference Range: 13 - 75 U/L Performed By: #### L 500.2500, L100.0100, L501.2450, L500.3400, L501.5200 ####[facility] [address] [place], [address] Lipase measurementOrdered By : Nadir Ortiz on 11-07-2024 Lipase [Catalytic activity/Vol] 35 U/L 13-75 [facility] Comment on above: Please note:LIPASE r evised reference range effective 22. New Lipase methodology. Expected to produce lower values than the previous assay method. NEW Reference Range: 13 - 75 U/L Liver Profileon 11-07-2024 Albumin [Mass/Vol] 3.9 g/dL Normal 3.5-5.0 [facility] Comment on above: Performed By: #### L 500.2500, L100.0100, L501.2450, L500.3400, L501.5200 ####[facility] [address] [place], [address] ALK PHOS 80 U/L Normal 35-104 [facility] Comment on above: Performed By: #### L 500.2500, L100.0100, L501.2450, L500.3400, L501.5200 ####[facility] [address] [place], [address] ALT [Catalytic activity/Vol] 21 U/L Normal <=34 [facility] Comment on above: Performed By: #### L 500.2500, L100.0100, L501.2450, L500.3400, L501.5200 ####[facility] [address] [place], [address] AST [Catalytic activity/Vol] 21 U/L Normal <=31 [facility] Comment on above: Performed By: #### L 500.2500, L100.0100, L501.2450, L500.3400, L501.5200 ####[facility] [address] [place], [address] Bilirubin [Mass/Vol] 0.73 mg/dL Normal 0.00-1.30 [facility] Comment on above: Performed By: #### L 500.2500, L100.0100, L501.2450, L500.3400, L501.5200 ####[facility] [address] [place], [address] Bilirubin.direct [Mass/Vol] 0.30 mg/dL Normal 0.00-0.30 [facility] Comment on above: Performed By: #### L 500.2500, L100.0100, L501.2450, L500.3400, L501.5200 ####[facility] [address] [place], [address] Globulin (S) [Mass/Vol] 3.0 g/dL Normal 2.2-4.2 [facility] Comment on above: Performed By: #### L 500.2500, L100.0100, L501.2450, L500.3400, L501.5200 ####[facility] [address] [place], [address] T PROT 6.9 g/dL Normal 5.9-8.4 [facility] Comment on above: Performed By: #### L 500.2500, L100.0100, L501.2450, L500.3400, L501.5200 ####[facility] [address] [place], [address] MCV (mean corpuscular volume ) determinationOrdered By: Nadir Ortiz on 11-07-2024 MCV (RBC) [Entitic vol] 87.8 fL 81-99 [facility] Magnesiumon 11-07-2024 Magnesium [Mass/Vol] 1.7 mg/dL Normal 1.5-2.2 [facility] Comment on above: Performed By: #### L 500.2500, L100.0100, L501.2450, L500.3400, L501.5200 ####[facility] [id number] [place], [address] Magnesium measurement (mass/ volume)Ordered By: Nadir Ortiz on 11-07-2024 Magnesium (Unsp spec) [Mass/Vol] 1.7 mg/dL 1.5-2.2 [facility] Mean corpuscular hemoglobin (MCH) determinationOrdered By: Nadir Ortiz on 11-07-2024 MCH (RBC) [Entitic mass] 29.3 pg 27.0-32.0 [facility] Mean corpuscular hemoglobin concentration (MCHC) determinationOrdered By: Nadir Ortiz on 11-07-2024 MCHC (RBC) [Mass/Vol] 33.4 g/dL 32-36 [facility] Mean platelet volume determi nationOrdered By: Nadir Ortiz on 11-07-2024 Platelet mean volume (Bld) [Entitic vol] 9.7 fL 6.2-12.0 [facility] Monocyte percentageOrdered B y: Nadir Ortiz on 11-07-2024 Monocytes/100 WBC (Bld) 4.9 % 0-10 [facility] Neutrophil percentageOrdered By: Nadir Ortiz on 11-07-2024 Neutrophils/100 WBC (Bld) 84.8 % High 47-70 [facility] Nucleated red blood cell per centageOrdered By: Nadir Ortiz on 11-07-2024 Nucleated RBC/100 WBC (Bld) [Ratio] 0 % 0-5 [facility] Platelet countOrdered By: Nery Ortiz on 11-07-2024 Platelets (Bld) [#/Vol] 239 10*3/uL 150-450 [facility] Potassium measurement (mass/ volume)Ordered By: Nadir Ortiz on 11-07-2024 Potassium (Unsp spec) [Mass/Vol] 3.8 mmol/L 3.3-5.1 [facility] RBC Auto (Bld) [#/Vol]Ordere d By: Nadir Ortiz on 11-07-2024 RBC (Bld) [#/Vol] 4.67 10*6/uL 4.2-5.4 [facility] Serum creatinine measurement (mass/volume)Ordered By: Nadir Ortiz on 11-07-2024 Creatinine [Mass/Vol] 0.99 mg/dL 0.70-1.20 [facility] Serum globulin measurementOr dered By: Nadir Ortiz on 11-07-2024 Globulin (S) [Mass/Vol] 3.0 g/dL 2.2-4.2 [facility] Serum glucose measurement (m ass/volume)Ordered By: Nadir Ortiz on 11-07-2024 Glucose [Mass/Vol] 100 mg/dL High 70-99 [facility] Serum or plasma alanine madden otransferase (ALT) measurementOrdered By: Nadir Ortiz on 11-07-2024 ALT [Catalytic activity/Vol] 21 U/L <35 [facility] Serum or plasma albumin jose urement (mass/volume)Ordered By: Nadir Ortiz on 11-07-2024 Albumin [Mass/Vol] 3.9 g/dL 3.5-5.0 [facility] Serum or plasma alkaline sherry sphatase measurementOrdered By: Nadir Ortiz on 11-07-2024 ALP [Catalytic activity/Vol] 80 U/L 35-104 [facility] Serum or plasma calcium jose urement (mass/volume)Ordered By: Nadir Ortiz on 11-07-2024 Calcium [Mass/Vol] 8.9 mg/dL 7.6-11.0 [facility] Serum or plasma urea nitroge n measurement (mass/volume)Ordered By: Nadir Ortiz on 11-07-2024 Urea nitrogen [Mass/Vol] 14 mg/dL 4-19 [facility] Sodium levelOrdered By: Jose Ortiz on 11-07-2024 Sodium [Moles/Vol] 138 mmol/L 133-145 [facility] Total proteinOrdered By: Je Ortiz on 11-07-2024 Protein [Mass/Vol] 6.9 g/dL 5.9-8.4 [facility] White blood cell (WBC) count Ordered By: Nadir Ortiz on 11-07-2024 WBC (Bld) [#/Vol] 8.2 10*3/uL 4.4-11.0 [facility] Urgent Care Visit Reporton 0 09-21-2024 Urgent Care Visit Report [facility] [address], [address] [place] [address] OFFICE VISIT Date of Service: 09/21/24 MR#: [id number] Acct: [id number] Name: MARY JUNIOR Rep #: [id number] : 1990 Provider: STEVAN Siu Age/Sex: 34/F Location: [facility] Status: Signed Intake Vital Signs 05/21/24 09:32 [...] she could be going through a thyroiditis. [facility] Medical History Acute bronchitis, unspecified Collin's thyroiditis [...] at home: Yes additional social history: Kash [facility] HPI Details: MARY JUNIOR, is a 34 [...] of p (more content not included)... Normal [facility] CNOVon 08-09-2024 CNOV Office Visit (ENDCMN ) MARY JUNIOR ([id number]) 1990 F Date Time Provider Department 08/09/24 10:00 [facility] your visit today, we recorded the following information about you: Pulse Blood pressure Weight 79/minute 127/79 101.6 kg Manuela Isbell MD 08/09/2024 10:44 AM Addendum Thank you for choosing the [facility] Department of Endocrinology, Diabetes and Metabolism. Did you know that you need to call 48 hours in advance of your scheduled visit, if you are unable to make your appointment? The Endocrinology and Metabolism [place] thanks you for your commitment, because patients not showing to their appointment results in a lost opportunity for patients to receive [facility] health care at the [facility]. To Cancel an appointment, please choose one of the following: - Call the Appointment Call Center at [phone] - From [facility], Go to Appointments - Cancel Appts If cancelling, consider your need to reschedule to prevent further delays in your care. To Schedule an appointment, please choose one of the following: - Call the Appointment Call Center at [phone] - From [facility], Go to Appointments - Request an [...] Index Carbohydrates (AVOID) Refined breakfast cereals (e.g., [place] Flakes, Rice Krispies, Cream of Rice, instant oatmeal) Regular pasta Most starchy vegetables (e.g., white potatoes, corn, winter (orange) squash) White rice, rice cakes Popcorn, pretzels, chips Some fruits (e.g., ripe bananas, pineapple, yael, watermelon, grapes) All fruit juices and sweetened drinks (e.g., sodas, sweetened iced tea) Bread, rolls, bagels, Cuban muffins, and crackers made with refined flour [...] lb) 413 lbs Lowest weight 192 lbs [place] weight: 72.4 kg (159 lb 11 oz) Excess weight: 84.1 kg (185 lb 5 oz) % of excess body weight lost: 156.5 kg (345 lb) (186.17% of excess weight loss) Interval history: Fasting labs (after 15 hrs of fasting) with no hypoglycemia. Started on Dexcom at last visit. Continues to have daily low blood sugar. Review (more content not included)... Normal [facility] HEMOGLOBIN A1C (POC)on 08-09 HbA1c (Bld) [Mass fraction] 5.1 % 4.3 - 5.6 % [facility] Comment on above: Location:Arabella martinez, [address] [place] [address], [facility] Point of care (POC) Hemoglobin A1c [...] specific diabetes management situations: The POC device monitoring analyst provides a normal range of 4.2% to 6.5% for the HGBA1C POC test. However, the [place] [employer] guidelines indicate that patients with [...] anemia) that alter red blood cell lifespan. [facility] B-HYDROXYBUTYRATEon 07-14-19 25 Beta hydroxybutyrate [Moles/Vol] 0.35 mmol/L High <0.28 [facility] Comment on above: Order Comment: Speci men Type: BLOOD SPECIMENOrdering Facility: [facility] Address: [address] [place] [address] Performed By: #### B HB ####[facility]ORATORYCLIA [id number] [place] [address] [place] C peptide SerPl-mCncon 07-13 C peptide [Mass/Vol] 2.7 ng/mL Normal 1.1-4.4 [facility] Comment on above: Order Comment: Angeladomonique sams Type: BLOOD SPECIMENOrdering Facility: [facility] Address: [address] [place] [address] Performed By: #### 1 986-9, 46543-2 ####[facility] LABCLIA [id number] [address] [place] Glucose p fast SerPl-mCncon 07-13-2024 Glucose post fast [Mass/Vol] 81 mg/dL Normal 74-99 [facility] Comment on above: Order Comment: Angeladomonique sams Type: BLOOD SPECIMENOrdering Facility: [facility] Address: [address] [place] [address] Result Comment: Desiree ican Diabetes Association guidelines state that a diabetes mellitus diagnosis is preliminarily made when the fasting plasma glucose meets or exceeds 126 mg/dL. In the absence of unequivocal hyperglycemia, results should be confirmed with repeat testing. Patients are at increased risk for diabetes mellitus (prediabetes) when the fasting glucose is 100 to 125 mg/dL. Performed By: #### 1 558-6 ####[facility]ORATORYCLIA [id number] [place] [id number] [place] Insulin SerPl-aCncon 025 Insulin Qn 6.6 uU/mL Normal 2.6-24.9 [facility] Comment on above: Order Comment: Angeladomonique sams Type: BLOOD SPECIMENOrdering Facility: [facility] Address: [address] [place], [place] [address] [address] Performed By: #### 1 986-9, ####[facility] LABIA [id number] [place] [id number] [facility] CNPNancy 07-09-2024 CNPN Telephone (ENDOMN) MARY JUNIOR ([id number]) 1990 F Date Time Provider Department 07/09/24 [...] of 07/09/2024 - Blood-Glucose Meter,Continuous (DEXCOM G7 TRUCKMAN) misc 1 Each as directed. - Blood-Glucose Sensor (DEXCOM G7 SENSOR) allison 1 Each every 10 days. - glucagon 3 mg/actuation nasal spray (BAQSIMI) Use 1 [place] in the nose as needed for low [...] Status:Closed by KIMBERLEY LEDESMA on 07/09/24 Normal [facility] B-HYDROXYBUTYRATEon 07-06-19 25 Beta hydroxybutyrate [Moles/Vol] 0.44 mmol/L High <0.28 [facility] Comment on above: Order Comment: Speci men Type: BLOOD SPECIMENOrdering Facility: [facility] Address: [address] [place] [address] [place] [address] Performed By: #### B HB ####[facility]ATORYCLIA [id number] [place] [address] [place] C peptide SerPl-mCncon 07-06 C peptide [Mass/Vol] 2.0 ng/mL Normal 1.1-4.4 [facility] Comment on above: Order Comment: Speci men Type: BLOOD SPECIMENOrdering Facility: [facility] Address: [address] [place] [address] Performed By: #### 1 986-9, 05953-0 ####[facility] LABIA [id number] [place] [id number] [place] Insulin SerPl-aCncon 025 Insulin Qn 6.1 uU/mL Normal 2.6-24.9 [facility] Comment on above: Order Comment: Speci men Type: BLOOD SPECIMENOrdering Facility: [facility] Address: [address] [place] [address] Performed By: #### 1 986-9, 23407-3 ####[facility] LABIA [id number] [place] [id number] [place] Thyroidon 05-30-2024 Thyroid [facility] Imaging Services [address] [place] [id number] Thyroid MR#: [id number] Acct: [id number] Name: MARY JUNIOR RICARDO Rep #: [id number] : 1990 F 34 From: Irving rosen MD PCP: Dr. Asif Haque MD Status: [facility] Study: Thyroid Date of Exam: 05/30/24 Exam# [id number] Ordering Dr: Felice Centeno MD [id number] STUDY: THYROID ULTRASOUND REASON FOR EXAM: Female, [...] 22:11 EST Reading Location ID and State: [address] [place] [address] , Service support , CC: Dr. Felice Centeno MD; Dr. Asif Haque MD Chronic Condition Nurse: Signed Normal [facility] Calcium,Totalon 05-21-2024 CA,Total 9.5 mg/dL Normal 8.5-10.1 [facility] Comment on above: Performed By: #### L 509.1000, L501.2200 #### [facility] Laboratory [facility] [place], [address] Estradiolon 05-21-2024 ESTRADIOL 69.3 pg/mL Normal [facility] Comment on above: Result Comment: [...] CONCENTRATION. Performed By: #### L 3300.1750, L3100.5125 ####[facility] [address] [place], [address] Follicle Stimulating Hormone on 05-21-2024 FSH 5.4 mIU/mL Normal [facility] Comment on above: Result Comment: NORMAL REFERENCE RANGES FEMALE FOLLICULAR 2.3 - 12.6 mIU/mL MID-CYCLE PEAK 5.2 - 17.5 mIU/mL LUTEAL 1.7 - 12.9 mIU/mL POST-MENOPAUSAL ON MHT 5.9 - 72.8 mIU/mL NOT ON MHT 12.7 - 132.2 mlU/mL MALE 0.7 - 10.8 mIU/mL Performed By: #### L 3300.1750, L3100.5125 ####[facility] [address] [place], [address] Irrigationist Office Visit Reporton 05-21-2024 Irrigationist Office Visit Report [facility] Women's [address], [address] [place] [address] OFFICE VISIT Date of Service: 05/21/24 MR#: [id number] Acct: [id number] Name: MARY JUNIOR RICAROD Rep #: [id number] : 1990 Provider: Dr. 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 Normal [facility] PTHINon 05-21-2024 PTH 84.1 pg/mL High 18.4-80.1 [facility] Comment on above: Performed By: #### L 509.1000, L501.2200 #### [facility] Laboratory [address] [place], [place], [address] Urgent Care Visit Reporton 1 06-17-2023 Urgent Care Visit Report [facility] [address], [address] [place], [place] [address] OFFICE VISIT Date of Service: 04/16/24 MR#: [id number] Acct: [id number] Name: MARY JUNIOR Rep #: [id number] : 1990 Provider: STEVAN Gallegos Age/Sex: 33/F Location: [facility] Status: Signed Intake Vital Signs 03/08/24 15:13 [...] Chief Complaint: left ear pain, sinus congestion 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 [facility] Medical History Acute bronchitis, unspecified Collni's thyroiditis Wears glasses Depression Anxiety Low iron [...] safe at home: Yes additional social history: [facility] HPI Chief Complaint: left ear pain, sinus [...] present GI (more content not included)... Normal [facility] Breast Limited Unilateralon 03-14-2024 Breast Limited Unilateral [facility] Imaging Services [address] [address] Breast Limited Unilateral MR#: [id number] Acct: [id number] Name: MARY JUNIOR RICARDO Rep #: [id number] : 1990 F 33 From: Walker dove MD PCP: Dr. Asif Haque MD Status: [facility] Study: Breast Limited Unilateral Date of Exam: Exam# [id number] Ordering Dr: Julissa Connell [id number] STUDY: ULTRASOUND BREAST - RIGHT REASON FOR [...] Julissa Connell MD; Dr. Asif Haque MD Chronic Condition Nurse: Signed Normal [facility] DIAG MAMM W/CAD, BILATon DIAG MAMM W[facility] Imaging Services [address] [facility] [place], [place] [address] DIAG MAMM W/CAD, BILAT MR#: [id number] Acct: [id number] Name: MARY JUNIOR Rep #: [id number] : 1990 F 33 From: Walker dove MD PCP: Dr. Asif Haque MD Status: [facility] Study: DIAG MAMM W/CAD, BILAT Date of Exam: 03/14/24 Exam# [id number] Ordering Dr: Julissa Connell [id number] MAMMOGRAPHY - BILATERAL DIAGNOSTIC REASON FOR EXAM: [...] 11:31 EST Reading Location ID and State: [facility] [place] , Service support , CC: Dr. Julissa Connell MD; Dr. Asif Haque MD Chronic Condition Nurse: Signed Normal [facility] Irrigationist Office Visit Reporton 03-08-2024 Irrigationist Office Visit Report [facility]'s [address], [address] [place] [address] OFFICE VISIT Date of Service: 03/08/24 MR#: [id number] Acct: [id number] Name: MARY JUNIOR RICARDO Rep #: [id number] : 1990 Provider: Dr. Julissa enamorado MD Age/Sex: 33/F Location: [facility] Status: Signed Intake Vital Signs 05/13/23 11:40 03/08/24 15:13 Height 5 ft 7 in 5 ft 7 in Weight: 209 lb BMI 32.7 BP 134/83 H Intake Visit Reasons: breast lump Php Mysql Web Developer Required: No Is patient in pain?: [...] safe at home: Yes additional social history: [facility] breast lump Details: MARY JUNIOR is a 33 year old who presents for right nipple pain and swollen right size noticed in the last day. she has been sick ov ere last month with multiple infections. she has [...] Weight Inf[facility] F[facility] Unknown Angus 2008 40 8pounds 3 ounce epidural Unknown Ai 2010 39 live - full term 7 lb 03/05/17 Doreen 39 8 lbs Female [facility] 08/01/18 Stu 39 live - full term Female spinal [facility] 07/19/19 [place] 39 live - full term Male epidural [facility] M Delivery Date: 08/01/18 Last Updated [...] and nor (more content not included)... Normal [facility] Urgent Care Visit Reporton 1 Urgent Care Visit Report [facility] [address], [address] [place] [address] OFFICE VISIT Date of Service: 02/21/24 MR#: [id number] Acct: [id number] Name: MARY JUNIOR Rep #: [id number] : 1990 Provider: STEVAN Gallegos Age/Sex: 33/F Location: [facility] Status: Signed Intake Vital Signs 05/13/23 11:40 02/21/24 07:53 Height 5 ft 7 in BP 130/74 H Blood Pressure Location Lt brachial Position Sitting Respiration 15 Pulse 76 Pulse Source NIBP Temp 98.1 F Temp Source Oral Pulse Oximetry (%) 98 Oxygen Delivery Method room air Intake Visit Reasons: Upper respiratory infection Chief Complaint: chest congest, cough, grn mucus Php Mysql Web Developer Required: No Is patient in pain?: [...] safe at home: Yes additional social history: [facility] HPI Chief Complaint: chest congest, cough, grn [...] close contacts with similar complaints. Non-smoker. No walf-qdp-cmdzzbr products taken to assist. No other associated symptoms and no other alleviating/aggravati ng factors. ROS Const Constitutional: No other (as above) Exam Const General: cooperative, healthy appearing and no acute distress Orientation: alert and awake HENAK Head: normal to inspection Ears: hearing grossly [...] no r (more content not included)... Normal [facility] T3 FREE [facility] 08-15-2023 Free T3 [Mass/Vol] 3.1 pg/mL 2.3 - 4.1 pg/mL [facility] T4 FREE/FREE THYROXon 2023 Free T4 [Mass/Vol] 1.2 ng/dL 0.9 - 1.7 ng/dL [facility] TSH [facility] 08-15-2023 TSH Qn 2.140 m[IU]/L 0.270 - 4.200 mIU/L [facility] Absolute lymphocyte countOrd ered By: Aj Carmichael on 06-21-2023 Lymphocytes Auto (Unsp spec) [#/Vol] 1.93 10*3/uL 0.83-4.51 [facility] Automated lymphocyte count a s percentage of total leukocytesOrdered By: Aj Carmichael on 06-21-2023 Lymphocytes/100 WBC Auto (Unsp spec) 43.1 % 19-41 [facility] Basophil percentageOrdered B y: Aj Carmichael on 06-21-2023 Basophils/100 WBC (Bld) 0.2 % 0-1 [facility] Bilirubin [Mass/Vol] 1.00 mg/dL 0.20-1.00 [facility] Comment on above: For patients on eltr ombopag therapy, use of Dimension [place] TBIL is not recommended. Chloride [Moles/Vol] 109 mmol/L 98-107 [facility] Eosinophils/100 WBC (Bld) 3.3 % 0-5 [facility] Glucose [Mass/Vol] 88 mg/dL 74-106 [facility] Hemoglobin (Bld) [Mass/Vol] 13.4 g/dL 12.0-15.0 [facility] Monocytes/100 WBC (Bld) 5.8 % 0-10 [facility] Neutrophils (Bld) [#/Vol] 2.1 10*3/uL 2.0-7.7 [facility] Neutrophils/100 WBC (Bld) 47.6 % 47-70 [facility] Potassium [Moles/Vol] 4.2 mmol/L 3.5-5.1 [facility] Protein [Mass/Vol] 7.0 g/dL 6.4-8.2 [facility] Sodium [Moles/Vol] 142 mmol/L 136-145 [facility] WBC (Bld) [#/Vol] 4.5 10*3/uL 4.4-11.0 [facility] Determination of erythrocyte mean corpuscular volume (MCV)Ordered By: Aj Carmichael on 06-21-2023 MCV (RBC) [Entitic vol] 89.7 fL 81-99 [facility] Erythrocyte distribution wid th ratioOrdered By: Aj Carmichael on 06-21-2023 Erythrocyte distribution width (RBC) [Ratio] 13.0 % 11.6-14.6 [facility] Erythrocyte distribution wid th standard deviationOrdered By: Aj Carmichael on 06-21-2023 Erythrocyte distribution width (RBC) [Entitic vol] 42.7 fL 35.1-43.9 [facility] Hematocrit Auto (Bld) [Volum e fraction]Ordered By: Aj Carmichael on 06-21-2023 Hematocrit (Bld) [Volume fraction] 41.6 % 37-47 [facility] Immature granulocytes/100 WB C Auto (Bld)Ordered By: Aj Carmichael on 06-21-2023 Immature granulocytes/100 WBC (Bld) 0.000 % 0.0-0.9 [facility] Comment on above: IG% - Immature Granu locytes (promyelocytes, myelocytes and metamyelocytes) > 1% indicates that a LEFT SHIFT is Present. Iron measurement (mass/mass) Ordered By: Aj Carmichael on 06-21-2023 Iron (Unsp spec) [Mass/Mass] 76 ug/dL 50-170 [facility] Laboratory - Chemistry and C hemistry - challengeOrdered By: Aj Carmichael on 06-21-2023 Albumin/Globulin [Mass ratio] 1.1 {ratio} 0.9-2.4 [facility] ALP [Catalytic activity/Vol] 72 U/L 45-117 [facility] ALT [Catalytic activity/Vol] 37 U/L 13-56 [facility] CO2 [Moles/Vol] 28.0 mmol/L 21.0-32.0 [facility] Cobalamin (Vitamin B12) [Mass/Vol] 409 pg/mL 211-911 [facility] Ferritin [Mass/Vol] 17 ng/mL 8-252 [facility] Globulin (S) [Mass/Vol] 3.4 g/dL 2.2-4.2 [facility] Magnesium [Mass/Vol] 2.4 mg/dL 1.6-2.6 [facility] Urea nitrogen/Creatinine [Mass ratio] 24.5 mg/mg 10-20 [facility] Laboratory - Hematology and Cell countsOrdered By: Aj Carmichael on 06-21-2023 MCH (RBC) [Entitic mass] 28.9 pg 27.0-32.0 [facility] MCHC (RBC) [Mass/Vol] 32.2 g/dL 32-36 [facility] Nucleated RBC/100 WBC (Bld) [Ratio] 0 % 0-5 [facility] Platelet mean volume (Bld) [Entitic vol] 9.4 fL 6.2-12.0 [facility] Platelets (Bld) [#/Vol] 246 10*3/uL 150-450 [facility] No Panel InformationOrdered By: Aj Carmichael on 06-21-2023 Estimated GFR (MDRD) Amer 109 mL/min >60 [facility] Comment on above: GFR Calc Estimated GFR (MDRD) Non-Af Amer 90 mL/min >60 [facility] Comment on above: Non- GFR Calc Vitamin D 25-Hydroxy 45.8 ng/mL [facility] Comment on above: Vitamin D 25(OH) Sta tus Range Deficiency <20 ng/mL (50nmol/L) Insufficiency 20 - 30 ng/mL (50 - 75 nmol/L) Sufficiency 30 - 100 ng/mL (75 - 250 nmol/L) Toxicity >100 ng/mL (>250 nmol/L) RBC Auto (Bld) [#/Vol]Ordere d By: Aj Carmichael on 06-21-2023 RBC (Bld) [#/Vol] 4.64 10*6/uL 4.2-5.4 [facility] Serum or plasma calcium jose urement (mass/volume)Ordered By: Aj Carmichael on 06-21-2023 Calcium [Mass/Vol] 9.0 mg/dL 8.5-10.1 [facility] Serum or plasma creatinine m easurement (mass/volume)Ordered By: Aj Carmichael on 06-21-2023 Creatinine [Mass/Vol] 0.78 mg/dL 0.55-1.02 [facility] Comment on above: The validity of the calculated GFR & GFRAA in patients over 70 years has not been determined. Clinical correlation is essential. Serum or plasma thyroid stim ulating hormone (TSH) measurement (units/volume)Ordered By: Aj Carmichael on 06-21-2023 TSH Qn 1.41 uIU/mL 0.358-3.74 [facility] Serum or plasma urea nitroge n measurement (mass/volume)Ordered By: Aj Carmichael on 06-21-2023 Urea nitrogen [Mass/Vol] 19 mg/dL 7-18 [facility] Thin prep Papanicolaou smear with manual screeningOrdered By: Aj Carmichael on 06-21-2023 Thin prep Papanicolaou smear with manual screening 3.6 g/dL 3.2-5.0 [facility] Thin prep Papanicolaou smear with manual screening 21 U/L 15-37 [facility] Thin prep Papanicolaou smear with manual screening 5 5-15 [facility] Thin prep Papanicolaou smear with manual screening 1.04 ng/dL 0.76-1.46 [facility] No Panel InformationOrdered By: Felice Centeno on 03-09-2023 Parathyroid Hormone (Intact) 80.0 pg/mL 18.4-80.1 [facility] Serum or plasma calcium jose urement (mass/volume)Ordered By: Felice Centeno on 03-09-2023 Calcium [Mass/Vol] 9.4 mg/dL 8.5-10.1 [facility] US THYROID/PARATHYROIDon [facility] XR Abdomen Supine and Uprigh ton 09-24-2022 IMPRESSION: Unremarkable abdomen x-ray. Chronic Condition Nurse: TOM Transcribe Date/Time: Sep 24 2022 12:54P Dictated by : DENAE ARCE MD This examination was interpreted and the report reviewed and electronically signed by: DENAE ARCE MD on Sep 24 2022 12:56PM [facility] DIVISION OF RADIOLOGY * [...] structures appear intact. DIVISION OF RADIOLOGY Provider, Liss Vu - 09/24/2022 * * *Final Report* [...] appear intact. IMPRESSION IMPRESSION: Unremarkable abdomen x-ray. Chronic Condition [facility] Transcribe Date/Time: Sep 24 2022 12:54P Dictated by : DENAE ARCE MD This examination was interpreted and the report reviewed and electronically signed by: DENAE ARCE MD on Sep 24 2022 12:56PM [facility] XR Abdomen Supine and Uprigh tOrdered By: [facility] Provider on 09-24-2022 [facility] CBC W Auto Differential pane l (Bld)on 09-21-2022 Basophils (Bld) [#/Vol] <0.11 k/uL [facility] Basophils/100 WBC (Bld) 0.3 % [facility] Differential cell count method Nom (Bld) Auto [facility] Eosinophils (Bld) [#/Vol] 0.08 10*3/uL <0.46 k/uL [facility] Eosinophils/100 WBC (Bld) 1.1 % [facility] Erythrocyte distribution width (RBC) [Ratio] 13.4 % 11.5 - 15.0 % [facility] Hematocrit (Bld) [Volume fraction] 41.8 % 36.0 - 46.0 % [facility] Hemoglobin (Bld) [Mass/Vol] 13.3 g/dL 11.5 - 15.5 g/dL [facility] Immature granulocytes (Bld) [#/Vol] <0.10 k/uL [facility] Immature granulocytes/100 WBC (Bld) 0.1 % [facility] Lymphocytes (Bld) [#/Vol] 2.22 10*3/uL 1.00 - 4.00 k/uL [facility] Lymphocytes/100 WBC (Bld) 30.5 % [facility] MCH (RBC) [Entitic mass] 28.7 pg 26.0 - 34.0 pg [facility] MCHC (RBC) [Mass/Vol] 31.8 g/dL 30.5 - 36.0 g/dL [facility] MCV (RBC) [Entitic vol] 90.1 fL 80.0 - 100.0 fL [facility] Monocytes (Bld) [#/Vol] 0.28 10*3/uL <0.87 k/uL [facility] Monocytes/100 WBC (Bld) 3.8 % [facility] Neutrophils (Bld) [#/Vol] 4.68 10*3/uL 1.45 - 7.50 k/uL [facility] Neutrophils/100 WBC (Bld) 64.2 % [facility] Nucleated RBC (Bld) [#/Vol] <0.01 k/uL [facility] Nucleated RBC/100 WBC (Bld) [Ratio] 0.0 /100 WBC [facility] Platelet mean volume (Bld) [Entitic vol] 10.2 fL 9.0 - 12.7 fL [facility] Platelets (Bld) [#/Vol] 270 10*3/uL 150 - 400 k/uL [facility] RBC (Bld) [#/Vol] 4.64 10*6/uL 3.90 - 5.2 0 m/uL [facility] WBC (Bld) [#/Vol] 7.29 10*3/uL 3.70 - 11.00 k/uL [facility] XR Abdomen Supine and Uprigh ton 09-21-2022 Radiology Study observation (narrative) [facility] Absolute lymphocyte countOrd ered By: Dr. Smalls on 09-20-2022 Lymphocytes Auto (Unsp spec) [#/Vol] 2.36 10*3/uL 0.83-4.51 [facility] Basophil percentageOrdered B y: Dr. Smalls on 09-20-2022 Basophils/100 WBC (Bld) 0.3 % 0-1 [facility] Bilirubin [Mass/Vol] 0.70 mg/dL 0.20-1.00 [facility] Comment on above: For patients on eltr ombopag therapy, use of Dimension [place] TBIL is not recommended. Chloride [Moles/Vol] 104 mmol/L 98-107 [facility] Eosinophils/100 WBC (Bld) 1.3 % 0-5 [facility] Glucose [Mass/Vol] 93 mg/dL 74-106 [facility] Neutrophils (Bld) [#/Vol] 4.0 10*3/uL 2.0-7.7 [facility] Neutrophils/100 WBC (Bld) 59.0 % 47-70 [facility] Potassium [Moles/Vol] 4.1 mmol/L 3.5-5.1 [facility] Protein [Mass/Vol] 7.2 g/dL 6.4-8.2 [facility] Sodium [Moles/Vol] 139 mmol/L 136-145 [facility] WBC (Bld) [#/Vol] 6.8 10*3/uL 4.4-11.0 [facility] Basophil percentage 0 SEEN /hpf 0-5 [facility] Bilirubin Test strip Ql (U)O rdered By: Dr. Smalls on 09-20-2022 Bilirubin Ql (U) Negative Negative [facility] Blood erythrocytes count (nu mber/volume)Ordered By: Dr. Smalls on 09-20-2022 RBC (Bld) [#/Vol] 4.69 10*6/uL 4.2-5.4 [facility] Blood hemoglobin measurement (mass/volume)Ordered By: Dr. Smalls on 09-20-2022 Hemoglobin (Bld) [Mass/Vol] 13.3 g/dL 12.0-15.0 [facility] Blood lymphocytes/100 leukoc ytesOrdered By: Dr. Smalls on 09-20-2022 Lymphocytes/100 WBC (Bld) 34.9 % 19-41 [facility] Blood monocytes/100 leukocyt esOrdered By: Dr. Smalls on 09-20-2022 Monocytes/100 WBC (Bld) 4.4 % 0-10 [facility] Blood platelet mean volumeOr dered By: Dr. Smalls on 09-20-2022 Platelet mean volume (Bld) [Entitic vol] 9.7 fL 6.2-12.0 [facility] Determination of erythrocyte mean corpuscular volume (MCV)Ordered By: Dr. Smalls on 09-20-2022 MCV (RBC) [Entitic vol] 88.1 fL 81-99 [facility] Hematocrit Auto (Bld) [Volum e fraction]Ordered By: Dr. Smalls on 09-20-2022 Hematocrit (Bld) [Volume fraction] 41.3 % 37-47 [facility] Ketones Test strip Ql (U)Ord ered By: Dr. Smalls on 09-20-2022 Ketones Ql (U) 50 mg/dl Negative [facility] Laboratory - Chemistry and C hemistry - challengeOrdered By: Dr. Smalls on 09-20-2022 ALP [Catalytic activity/Vol] 80 U/L 45-117 [facility] ALT [Catalytic activity/Vol] 31 U/L 13-56 [facility] CO2 [Moles/Vol] 27.0 mmol/L 21.0-32.0 [facility] Globulin (S) [Mass/Vol] 3.8 g/dL 2.2-4.2 [facility] Urea nitrogen/Creatinine [Mass ratio] 27.8 mg/mg 10-20 [facility] Laboratory - Hematology and Cell countsOrdered By: Dr. Smalls on 09-20-2022 Erythrocyte distribution width (RBC) [Entitic vol] 42.9 fL 35.1-43.9 [facility] Erythrocyte distribution width (RBC) [Ratio] 13.2 % 11.6-14.6 [facility] Immature granulocytes/100 WBC (Bld) 0.100 % 0.0-0.9 [facility] Comment on above: IG% - Immature Granu locytes (promyelocytes, myelocytes and metamyelocytes) > 1% indicates that a LEFT SHIFT is Present. MCH (RBC) [Entitic mass] 28.4 pg 27.0-32.0 [facility] Nucleated RBC/100 WBC (Bld) [Ratio] 0 % 0-5 [facility] MCHC Auto (RBC) [Mass/Vol]Or dered By: Dr. Smalls on 09-20-2022 MCHC (RBC) [Mass/Vol] 32.2 g/dL 32-36 [facility] Mucus LM Ql (Urine sed)Order ed By: Dr. Smalls on 09-20-2022 Mucus Ql (Urine sed) 0 SEEN /hpf [facility] Nitrite Test strip Ql (U)Ord ered By: Dr. Smalls on 09-20-2022 Nitrite Ql (U) Negative Negative [facility] No Panel InformationOrdered By: Dr. Smalls on 09-20-2022 Estimated Creatinine Clearance Calc 102.39 ml/min [facility] Estimated GFR (MDRD) Amer 113 mL/min >60 [facility] Comment on above: GFR Calc Estimated GFR (MDRD) Non-Af Amer 94 mL/min >60 [facility] Comment on above: Non- GFR Calc Platelets bldOrdered By: Dr. Smalls on 09-20-2022 Platelets (Bld) [#/Vol] 276 10*3/uL 150-450 [facility] Protein Test strip Ql (U)Ord ered By: Dr. Smalls on 09-20-2022 Protein Ql (U) Negative Negative [facility] Serum or plasma albumin jose urement (mass/volume)Ordered By: Dr. Smalls on 09-20-2022 Albumin [Mass/Vol] 3.4 g/dL 3.2-5.0 [facility] Serum or plasma albumin/glob ulin mass ratioOrdered By: Dr. Smalls on 09-20-2022 Albumin/Globulin [Mass ratio] 0.9 {ratio} 0.9-2.4 [facility] Serum or plasma calcium jose urement (mass/volume)Ordered By: Dr. Smalls on 09-20-2022 Calcium [Mass/Vol] 9.0 mg/dL 8.5-10.1 [facility] Serum or plasma creatinine m easurement (mass/volume)Ordered By: Dr. Smalls on 09-20-2022 Creatinine [Mass/Vol] 0.76 mg/dL 0.55-1.02 [facility] Comment on above: The validity of the calculated GFR & GFRAA in patients over 70 years has not been determined. Clinical correlation is essential. Serum or plasma urea nitroge n measurement (mass/volume)Ordered By: Dr. Smalls on 09-20-2022 Urea nitrogen [Mass/Vol] 21 mg/dL 7-18 [facility] Squamous epithelial cells de tection in urine sediment by light microscopyOrdered By: Dr. Smalls on 09-20-2022 Epithelial cells.squamous LM Ql (Urine sed) 5-10 SEEN /hpf 5-10 [facility] Thin prep Papanicolaou smear with manual screeningOrdered By: Dr. Smalls on 09-20-2022 Thin prep Papanicolaou smear with manual screening 15 U/L 15-37 [facility] Thin prep Papanicolaou smear with manual screening 8 5-15 [facility] Urine blood detectionOrdered By: Dr. Smalls on 09-20-2022 RBC Ql (U) Negative Negative [facility] RBC Ql (U) 0 SEEN /hpf 0-5 [facility] Urine clarityOrdered By: Dr. Smalls on 09-20-2022 Clarity (U) Clear Clear [facility] Urine color determinationOrd ered By: Dr. Smalls on 09-20-2022 Color (U) Yellow Yellow [facility] Urine glucose detectionOrder ed By: Dr. Smalls on 09-20-2022 Glucose Ql (U) Normal mg/dl Normal [facility] Urine leukocyte esterase det ection by dipstickOrdered By: Dr. Smalls on 09-20-2022 Leukocyte esterase Test strip Ql (U) Negative Negative [facility] Urine pHOrdered By: Dr. Maribell amor on 09-20-2022 pH (U) 6.5 [pH] 5.0 - 8.0 [facility] Urine sediment bacteria coun t by microscopy (number/high power field)Ordered By: Dr. Smalls on 09-20-2022 Bacteria LM.HPF (Urine sed) [#/Area] 1 /[HPF] None Seen [facility] Urine specific gravity measu rementOrdered By: Dr. Smalls on 09-20-2022 Specific gravity (U) [Rel density] 1.015 1.002-1.030 [facility] Urobilinogen Auto test strip Ql (U)Ordered By: Dr. Smalls on 09-20-2022 Urobilinogen Ql (U) Normal mg/dl Normal [facility] No Panel Informationon 07-19 POC SARS CoV-2 Antigen Negative [facility] Comprehensive metabolic 2000 panelon 05-14-2022 Albumin [Mass/Vol] 4.1 g/dL 3.9 - 4.9 g/dL [facility] ALP [Catalytic activity/Vol] 78 U/L 34 - 123 U/L [facility] ALT [Catalytic activity/Vol] 19 U/L 7 - 38 U/L [facility] Anion gap [Moles/Vol] 9 mmol/L 9 - 18 mmol/L [facility] AST [Catalytic activity/Vol] 17 U/L 13 - 35 U/L [facility] Bilirubin [Mass/Vol] 0.9 mg/dL 0.2 - 1 .3 mg/dL [facility] Calcium [Mass/Vol] 9.4 mg/dL 8.5 - 10. 2 mg/dL [facility] Chloride [Moles/Vol] 103 mmol/L 97 - 10 5 mmol/L [facility] CO2 [Moles/Vol] 24 mmol/L 22 - 30 mmol/L [facility] Creatinine [Mass/Vol] 0.79 mg/dL 0.58 - 0.96 mg/dL [facility] Estimated Glomerular Filtration Rate 101 mL/min/1.73m >=60 mL/min/1.73 m [facility] Glucose [Mass/Vol] 81 mg/dL 74 - 99 mg/dL [facility] Potassium [Moles/Vol] 4.3 mmol/L 3.7 - 5.1 mmol/L [facility] Protein [Mass/Vol] 7.2 g/dL 6.3 - 8.0 g/dL [facility] Sodium [Moles/Vol] 136 mmol/L 136 - 144 mmol/L [facility] Urea nitrogen [Mass/Vol] 16 mg/dL 7 - 21 mg/dL [facility] HbA1c (Bld)on 05-14-2022 Average glucose Estimated from glycated hemoglobin (Bld) [Mass/Vol] 100 mg/dL [facility] HbA1c (Bld) [Mass fraction] 5.1 % 4.3 - 5.6 % [facility] Lipid 1996 panelon 3 Cholesterol [Mass/Vol] 178 mg/dL <200 mg/dL [facility] Cholesterol in HDL [Mass/Vol] 48 mg/dL >39 mg/dL [facility] Cholesterol in LDL [Mass/Vol] 118 mg/dL High <100 mg/dL [facility] Cholesterol in LDL/Cholesterol in HDL [Mass ratio] 2.46 {ratio} <2.54 [facility] Cholesterol in VLDL [Mass/Vol] 12 mg/dL <30 mg/dL [facility] Cholesterol non HDL [Mass/Vol] 130 mg/dL High <130 mg/dL [facility] Cholesterol.total/Jada sterol in HDL [Mass ratio] 3.71 {ratio} <5.10 [facility] Fasting Time 13 hrs [facility] Triglyceride [Mass/Vol] 60 mg/dL <150 mg/dL [facility] Progress Noteon 01-31-2018 [employer] Authentication Interface Message Text Reason for Referral Mary Fournier and her partner Kash Junior were seen by myself and Kathe Van MS, [facility] on 01/31/2018 at [facility]'s [place] office in order to discuss the results [...] had an ultrasound evaluation on 12/18/2017 at [facility] due to bleeding and the [...] cystic fibrosis has been requested from her domestic technician's office. In the event that her domestic technician's office does not have a copy of her test results, Mary also signed a medical release so that her former domestic technician's office could be contacted (Dr. Nidia Bergeron at [facility]'s [facility]). Mary was not sure if carrier [...] abnormalities, or genetic conditions. Mary is of Japanese, Portuguese and ancestry, and her partner is of Japanese, [place] and [place] ancestry. There is no known Ashkenazi Mandaeism ancestry and no known consanguinity. Ultrasound Findings [...] 03/13/2018 at 1:00 pm in Maternal Medicine's [place] office.) Monitor growth every 4 weeks beginning [...] desired, an appointment can be scheduled with [facility]'s Hereditary Cancer Program by contacting the Genetic Center at [phone]. Additional follow-up should be as clinically indicated. The total patient time of the visit was 15 minutes, of which greater than 50% of the time was spent counseling and coordinating care. Larry Raman, Normal [facility] ED Note-Provideron 8 ED Note-Provider Normal [facility] [place] Pat Eduon 08-11-2017 [facility] [place] Patient Summary Documentson 08-11-2017 Patient Summary Documents Normal [facility]) Blood Bank: Type AND Screeno n 03-04-2017 Antibody Screen Negative Normal [facility] Lab Report: (P) Urinalysis, Completeon 03-04-2017 Bilirubin Ql (U) Negative Invalid Interpretation Code Negative [facility] NITRITE UR Negative Invalid Interpretation Code Negative [facility] OCCULT BLOOD-UR 250 High Negative [facility] specific gravity, urine 1.005 Invalid Interpretation Code 1.002-1.030 [facility] Urine, clarity Cloudy Invalid Interpretation Code Clear [facility] Urine, color Yellow Invalid Interpretation Code Yellow [facility] Urine, glucose presence Normal mg/dl Invalid Interpretation Code Normal [facility] Urine, ketones presence 150 High Negative [facility] Urine, leukocyte esterase presence 500 High Negative [facility] Urine, pH 7.0 [pH] Invalid Interpretation Code 5.0 - 8.0 [facility] Urine, protein 30 mg/dL [facility] UROBILI Normal mg/dl Invalid Interpretation Code Normal [facility] Lab Report: CBC-Complete Blo od Cnt No Diffon 03-04-2017 Erythrocyte distribution width Auto Ratio (RBC) 14.9 % High 11.6-14.6 [facility] Erythrocytes (RBC) 4.70 10*6/uL Invalid Interpretation Code 4.2-5.4 [facility] Hematocrit (HCT) 39.4 % Invalid Interpretation Code 37-47 [facility] Hemoglobin mass conc (Bld) 12.7 g/dL Invalid Interpretation Code 12.0-15.0 [facility] MCH 27.0 pg Invalid Interpretation Code 27.0-32.0 [facility] MCHC mass conc (RBC) 32.2 G/GL Invalid Interpretation Code 32-36 [facility] MCV 83.8 fL Invalid Interpretation Code 81-99 [facility] Platelets 266 10*3/mm3 Invalid Interpretation Code 150-450 [facility] PMV by Cheng 10.6 fL Invalid Interpretation Code 6.2-12.0 [facility] RDW SD 45.6 fL High 35.1-43.9 [facility] WBC (Leukocytes) 13.5 10*3/uL High 4.4-11.0 [facility] Lab Report: Comprehensive Il tabolic Profilon 03-04-2017 Alanine aminotransferase (ALT) 20 U/L Invalid Interpretation Code 12-78 [facility] Albumin/Globulin Ratio 0.5 {ratio} Low 0.9-2.4 [facility] Alkaline phosphatase (ALP) 160 U/L High 45-117 [facility] Anion gap 13 mmol/L Invalid Interpretation Code 5-15 [facility] Aspartate aminotransferase (AST) 13 U/L Low 15-37 [facility] Bilirubin (total) 0.80 mg/dL Invalid Interpretation Code 0.20-1.00 [facility] Calcium 9.3 mg/dL Invalid Interpretation Code 8.5-10.1 [facility] Chloride 102 mmol/L Invalid Interpretation Code 98-107 [facility] CO2 21.0 mmol/L Invalid Interpretation Code 21.0-32.0 [facility] Globulin 4.7 g/dL High 2.2-4.2 [facility] Potassium molar conc 4.1 mmol/L Invalid Interpretation Code 3.5-5.1 [facility] Sodium 136 mmol/L Invalid Interpretation Code 136-145 [facility] Albumin 2.4 g/dL Low 3.4-5.0 [facility] BUN/Creatinine Ratio 13.9 RATIO Invalid Interpretation Code 10-20 [facility] Creatinine 118.39 mL/min Invalid Interpretation Code [facility] Creatinine 0.72 mg/dL Invalid Interpretation Code 0.55-1.02 [facility] eGFR (non-black) 125 mL/min/{1.73_m2} Invalid Interpretation Code >60 [facility] eGFR (non-black) 103 mL/min/{1.73_m2} Invalid Interpretation Code >60 [facility] Glucose mass conc 77 mg/dL Invalid Interpretation Code 70-110 [facility] Protein 7.1 g/dL Invalid Interpretation Code 6.4-8.2 [facility] Urea nitrogen 10 mg/dL Invalid Interpretation Code 7-18 [facility] Lab Report: Protein+Creatini ne Ratio,Urineon 03-04-2017 Protein [Mass] in Urine collected for unspecified duration 45.3 mg/dL High <11.9 [facility] protein/creatinine, urine, point, quantitative 571 MG/G CRE High 0-200 [facility] Urine, creatinine 79.40 mg/dL Invalid Interpretation Code NO RANGE EST. [facility] Lab Report: Urinalysis, Comp leteon 03-04-2017 Urine, bacteria in sediment 2 /[HPF] Invalid Interpretation Code None Seen [facility] Urine, epithelial cells in sediment 5-10 SEEN Invalid Interpretation Code 5-10 [facility] Urine, erythrocytes in sediment by volume 0-5 SEEN Invalid Interpretation Code 0-5 [facility] Urine, mucus presence in sediment 0 SEEN Invalid Interpretation Code [facility] WBC (Leukocytes) 50-100 SEEN Invalid Interpretation Code 0-5 [facility] Office Visit: OB Routineon 1 Documentation of current medications (procedure) Done Invalid Interpretation Code [facility] Office Visit: OB Routineon 1 Urine, glucose presence N Invalid Interpretation Code [facility] Office Visit: OB Routineon 1 Tobacco smoking status NHIS Never Invalid Interpretation Code [facility] Tobacco use CPHS Never smoker Invalid Interpretation Code [facility] Microbiology: Culture, Group B Streptococcuson 02-13-2017 CUGRB THAIS CultureGroup B Beta Streptococcus is not isolated. Invalid Interpretation Code [facility] Lab Report: Group B Strep DN A By PCRon 02-10-2017 GBS TEST RESULT Negative Invalid Interpretation Code Negative [facility] Office Visit: OB Routineon 0 12-29-2016 Urine, nitrite presence + Invalid Interpretation Code [facility] Vital Signs Date Time Vital Sign Value Performing Clinician Facility 01-17-2025 10:10-0400 Body mass index (BMI) [Ratio] 38.89 kg/m2 Manuela Isbell MD Work Phone: [facility] 01-17-2025 10:10-0400 Body weight 109.3 kg Manuela Isbell MD Work Phone: [facility] 01-17-2025 10:10-0400 Diastolic blood pressure 85 mm[Hg] Manuela Isbell MD Work Phone: [facility] 01-17-2025 10:10-0400 Heart rate 68 /min Manuela Isbell MD Work Phone: [facility] 01-17-2025 10:10-0400 Systolic blood pressure 128 mm[Hg] Manuela Isbell MD Work Phone: [facility] 12-31-2024 09:30-0400 Body height 167.[address] Work Phone: [facility] 12-31-2024 09:30-0400 Body mass index (BMI) [Ratio] 36.32 kg/m2 Stef Luis RD Work Phone: [facility] 12-31-2024 09:30-0400 Body weight 102.[address] Work Phone: [facility] Comment on above: per patient report 12-26-2024 06:35-0400 Body height 170.[address] Asif Haque MD Work Phone: [facility] 12-26-2024 06:35-0400 Body temperature 98.5 [degF] Dr. Asif Haque MD Work Phone: [facility] 12-26-2024 06:35-0400 Diastolic blood pressure 58 mm[Hg] Dr. Asif Haque MD Work Phone: [phone] [place] [address] 12-26-2024 06:35-0400 Heart rate 70 /min Dr. Asif Haque MD Work Phone: [phone] [place] [address] 12-26-2024 06:35-0400 Respiratory rate 16 /min Dr. Asif Haque MD Work Phone: [phone] [place] [address] 12-26-2024 06:35-0400 SaO2% (BldA) [Mass fraction] 98 % Dr. Asif Haque MD Work Phone: 7(432)238-082725 [place] [address] 12-26-2024 06:35-0400 Systolic blood pressure 110 mm[Hg] Dr. Asif Haque MD Work Phone: 2(546)216-272325 [place] [address] 11-09-2024 11:33-0400 Body temperature 98.2 [degF] Dr. Asif Haque MD Work Phone: 2(169)276-626525 [place] [address] 11-09-2024 11:33-0400 Diastolic blood pressure 85 mm[Hg] Dr. Asif Haque MD Work Phone: 7(344)118-352625 [place] [address] 11-09-2024 11:33-0400 Heart rate 67 /min Dr. Asif Haque MD Work Phone: 2(775)290-391825 [place] [address] 11-09-2024 11:33-0400 Respiratory rate 14 /min Dr. Asif Haque MD Work Phone: 4(552)224-236925 [place] [address] 11-09-2024 11:33-0400 SaO2% (BldA) [Mass fraction] 100 % Dr. Asif Haque MD Work Phone: 4(460)327-245225 [place] [address] 11-09-2024 11:33-0400 Systolic blood pressure 124 mm[Hg] Dr. Asif Haque MD Work Phone: 5(420)245-304725 [place] [address] 11-09-2024 08:17-0400 Body height 170.[address] Asif Haque MD Work Phone: 7(126)630-899025 [place] [address] 11-09-2024 08:17-0400 Body mass index (BMI) [Ratio] 36.6 kg/m2 Dr. Asif Haque MD Work Phone: 9(010)277-782934 [place] [address] 11-09-2024 08:17-0400 Body weight 106.[address] Asif Haque MD Work Phone: 6(063)562-129225 [place] [address] 11-07-2024 05:29-0400 Body temperature 98.9 [degF] Dr. Asif Haque MD Work Phone: 1(338)920-044925 [place] [address] 11-07-2024 05:29-0400 Diastolic blood pressure 77 mm[Hg] Dr. Asif Haque MD Work Phone: 7(729)983-879325 [place] [address] 11-07-2024 05:29-0400 Heart rate 90 /min Dr. Asif Haque MD Work Phone: 8(993)744-094125 [place] [address] 11-07-2024 05:29-0400 Respiratory rate 18 /min Dr. Asif Haque MD Work Phone: 4(283)987-014425 [place] [address] 11-07-2024 05:29-0400 SaO2% (BldA) [Mass fraction] 95 % Dr. Asif Haque MD Work Phone: 1(029)986-486525 [place] [address] 11-07-2024 05:29-0400 Systolic blood pressure 125 mm[Hg] Dr. Asif Haque MD Work Phone: 7(228)046-572234 [place] [address] 11-07-2024 03:07-0400 Body height 170.[address] Asif Haque MD Work Phone: 6(632)771-884125 [place] [address] 11-07-2024 03:07-0400 Body mass index (BMI) [Ratio] 38.7 kg/m2 Dr. Asif Haque MD Work Phone: 0(840)303-790334 [place] [address] 11-07-2024 03:07-0400 Body weight 112.[address] Asif Haque MD Work Phone: 5(915)398-869425 [place] [address] 11-05-2024 09:33-0400 Body height 167.[address] Work Phone: [facility] 11-05-2024 09:33-0400 Body mass index (BMI) [Ratio] 36.32 kg/m2 Stef Luis RD Work Phone: [facility] 11-05-2024 09:33-0400 Body weight 102.[address] Work Phone: [facility] Comment on above: verbal per patient 09-21-2024 06:11-0400 Body temperature 98.3 [degF] Dr. Asif Haque MD Work Phone: [facility] 09-21-2024 06:11-0400 Diastolic blood pressure 60 mm[Hg] Dr. Asif Haque MD Work Phone: [facility] 09-21-2024 06:11-0400 Heart rate 87 /min Dr. Asif Haque MD Work Phone: [facility] 09-21-2024 06:11-0400 SaO2% (BldA) [Mass fraction] 98 % Dr. Asif Haque MD Work Phone: [facility] 09-21-2024 06:11-0400 Systolic blood pressure 110 mm[Hg] Dr. Asif Haque MD Work Phone: [facility] 08-09-2024 09:56-0400 Body mass index (BMI) [Ratio] 35.08 kg/m2 Manuela Isbell MD Work Phone: [facility] 08-09-2024 09:56-0400 Body weight 101.6 kg Manuela Isbell MD Work Phone: [facility] 08-09-2024 09:56-0400 Diastolic blood pressure 79 mm[Hg] Manuela Isbell MD Work Phone: [facility] 08-09-2024 09:56-0400 Heart rate 79 /min Manuela Isbell MD Work Phone: [facility] 08-09-2024 09:56-0400 Systolic blood pressure 127 mm[Hg] Manuela Isbell MD Work Phone: [facility] 07-13-2024 13:32-0500 Body height 170.[address] Work Phone: [facility] 07-13-2024 13:32-0500 Body mass index (BMI) [Ratio] 33.99 kg/m2 Stef Dimarino RD Work Phone: [facility] 07-13-2024 13:32-0500 Body weight 98.[address] Work Phone: [facility] Comment on above: verbal per patient 07-04-2024 15:26-0500 Body mass index (BMI) [Ratio] 35.08 kg/m2 Manuela Isbell MD Work Phone: [facility] 07-04-2024 15:26-0500 Body weight 101.61 kg Manuela Isbell MD Work Phone: [facility] 05-29-2024 12:50-0500 Body height 170.2 cm Ping Ansari [employer]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 Work Phone: [facility] 04-09-2024 12:53-0500 Body height 170.[address] Work Phone: [facility] 04-09-2024 12:53-0500 Body mass index (BMI) [Ratio] 32.58 kg/m2 Stef Dimarino RD Work Phone: [facility] 04-09-2024 12:53-0500 Body weight 94.[address] Work Phone: [facility] Comment on above: verbal per patient 03-06-2024 07:39-0400 Body mass index (BMI) [Ratio] 34.15 kg/m2 Ike Carmichael [employer]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 Work Phone: [facility] 03-06-2024 07:39-0400 Body temperature 98.49 [degF] Ike Carmichael [employer] BANK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 Work Phone: [facility] 03-06-2024 07:39-0400 Body weight 98.9 kg Ike Carmichael APRN.BLOOD BANK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 Work Phone: [facility] 10-29-2024 07:39-0400 Diastolic blood pressure 80 mm[Hg] Ike Carmichael [employer]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 Work Phone: [facility] 03-06-2024 07:39-0400 Heart rate 100 /min Ike Carmichael [employer] BANK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 Work Phone: [facility] 03-06-2024 07:39-0400 Respiratory rate 18 /min Ike Carmichael [employer]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 Work Phone: [facility] 03-06-2024 07:39-0400 SaO2% (BldA) [Mass fraction] 98 % Ike Carmichael [employer] BANK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 Work Phone: [facility] 03-06-2024 07:39-0400 Systolic blood pressure 122 mm[Hg] Ike Carmichael [employer] BANK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 Work Phone: [facility] 02-20-2024 06:50-0400 Body height 170.2 cm Ping Prince [employer]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 Work Phone: [facility] 02-20-2024 06:50-0400 Body mass index (BMI) [Ratio] 33.67 kg/m2 Ping Prince [employer] BANK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 Work Phone: [facility] 02-20-2024 06:50-0400 Body weight 97.52 kg Ping Prince [employer] BANK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 Work Phone: [facility] 02-14-2024 09:16-0400 Body height 170.2 cm Donita Green MD Work Phone: [facility] 02-14-2024 09:16-0400 Body mass index (BMI) [Ratio] 33.67 kg/m2 Donita Green MD Work Phone: [facility] 02-14-2024 09:16-0400 Body weight 97.52 kg Donita Green MD Work Phone: [facility] 02-14-2024 09:16-0400 Diastolic blood pressure 90 mm[Hg] Donita Green MD Work Phone: [facility] 02-14-2024 09:16-0400 Heart rate 78 /min Donita Green MD Work Phone: [facility] 02-14-2024 09:16-0400 Respiratory rate 17 /min Donita Green MD Work Phone: [facility] 02-14-2024 09:16-0400 SaO2% (BldA) [Mass fraction] 97 % Donita Green MD Work Phone: [facility] 02-14-2024 09:16-0400 Systolic blood pressure 122 mm[Hg] Donita Green MD Work Phone: [facility] 01-06-2024 15:05-0400 Body height 170.[address] Work Phone: [facility] 01-06-2024 15:05-0400 Body mass index (BMI) [Ratio] 31.73 kg/m2 Stef Jarettarino RD Work Phone: [facility] 01-06-2024 15:05-0400 Body weight 91.[address] Work Phone: [facility] Comment on above: verbal per patient 11-21-2023 13:29-0400 Body mass index (BMI) [Ratio] 32.26 kg/m2 Kiera Suppan [employer]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 Work Phone: [facility] 11-21-2023 13:29-0400 Body weight 93.44 kg Kiera Suppan [employer] BANK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 Work Phone: [facility] 11-21-2023 13:29-0400 Diastolic blood pressure 72 mm[Hg] Kiera Suppan [employer] BANK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 Work Phone: [facility] 11-21-2023 13:29-0400 Heart rate 97 /min Kiera Suppan [employer] B[employer]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 Work Phone: [facility] 11-21-2023 13:29-0400 SaO2% (BldA) [Mass fraction] 99 % Kiera Suppan [employer] BANK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 Work Phone: [facility] 11-21-2023 13:29-0400 Systolic blood pressure 110 mm[Hg] Kierarichard Santosjuhi [employer] BANK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 Work Phone: [facility] 10-20-2023 11:19-0400 Body height 170.2 cm Ping Prince [employer] BANK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 Work Phone: [facility] 10-20-2023 11:19-0400 Body mass index (BMI) [Ratio] 31.98 kg/m2 Ping Prince [employer] BANK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 Work Phone: [facility] 10-20-2023 11:19-0400 Body weight 92.63 kg Ping Prince [employer] BANK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 Work Phone: [facility] 10-07-2023 14:54-0400 Body height 170.[address] Work Phone: [facility] 10-07-2023 14:54-0400 Body mass index (BMI) [Ratio] 31.42 kg/m2 Stef Dimarino RD Work Phone: [facility] 10-07-2023 14:54-0400 Body weight 90.[address] Work Phone: [facility] Comment on above: verbal per patient 08-15-2023 09:53-0400 Body height 170.2 cm Donita Green MD Work Phone: [facility] 08-15-2023 09:53-0400 Body weight 91.63 kg Donita Green MD Work Phone: [facility] 08-15-2023 09:53-0400 Diastolic blood pressure 84 mm[Hg] Donita Green MD Work Phone: [facility] 08-15-2023 09:53-0400 Heart rate 84 /min Donita Green MD Work Phone: [facility] 08-15-2023 09:53-0400 Respiratory rate 17 /min Donita Green MD Work Phone: [facility] 08-15-2023 09:53-0400 SaO2% (BldA) [Mass fraction] 98 % Donita Green MD Work Phone: [facility] 08-15-2023 09:53-0400 Systolic blood pressure 122 mm[Hg] Donita Green MD Work Phone: [facility] 07-14-2023 10:51-0500 Body height 167.6 cm Ping Prince [employer] B[employer]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 Work Phone: [facility] 07-14-2023 10:51-0500 Body weight 96.16 kg Ping Prince [employer] BANK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 Work Phone: [facility] 07-07-2023 15:17-0500 Body height 167.[address] Work Phone: [facility] 07-07-2023 15:17-0500 Body weight 96.[address] Work Phone: [facility] 05-13-2023 11:40-0500 Body height 170.[address] Asif Haque Work Phone: [facility] 05-13-2023 11:36-0500 Body mass index (BMI) [Ratio] 32.3 kg/m2 Dr. Asif Haque Work Phone: [facility] 05-13-2023 11:36-0500 Body weight 93.[address] Asif Haque Work Phone: [facility] 05-13-2023 11:36-0500 Diastolic blood pressure 84 mm[Hg] Dr. Asif Haque Work Phone: [facility] 05-13-2023 11:36-0500 Systolic blood pressure 132 mm[Hg] Dr. Asif Haque Work Phone: [facility] 05-10-2023 13:18-0500 Body mass index (BMI) [Ratio] 32.4 kg/m2 Dr. Asif Haque Work Phone: [facility] 05-10-2023 13:18-0500 Body temperature 98.9 [degF] Dr. Asif Haque Work Phone: [facility] 05-10-2023 13:18-0500 Body weight 94.[address] Asif Haque Work Phone: [facility] 05-10-2023 13:18-0500 Diastolic blood pressure 76 mm[Hg] Dr. Asif Haque Work Phone: 0(648)669-333434 [place] [address] 05-10-2023 13:18-0500 Heart rate 80 /min Dr. Asif Haque Work Phone: [facility] 05-10-2023 13:18-0500 Respiratory rate 16 /min Dr. Asif Haque Work Phone: 1(330)844-227634 [place] [address] 05-10-2023 13:18-0500 SaO2% (BldA) [Mass fraction] 98 % Dr. Asif Haque Work Phone: [facility] 05-10-2023 13:18-0500 Systolic blood pressure 136 mm[Hg] Dr. Asif Haque Work Phone: [facility] 03-09-2023 12:57-0400 Heart rate 61 /min Dr. Asif Haque Work Phone: [facility] 03-09-2023 12:57-0400 Respiratory rate 17 /min Dr. Asfi Haque Work Phone: [facility] 11-18-2022 11:19-0400 Body weight 90.27 kg NA Swain PA-C Work Phone: [facility] 11-18-2022 11:19-0400 Diastolic blood pressure 70 mm[Hg] NA Swain PA-C Work Phone: [facility] 11-18-2022 11:19-0400 Heart rate 89 /min NA Swain PA-C Work Phone: [facility] 11-18-2022 11:19-0400 Respiratory rate 16 /min NA Swain PA-C Work Phone: [facility] 11-18-2022 11:19-0400 SaO2% (BldA) [Mass fraction] 98 % NA Swain PA-C Work Phone: [facility] 11-18-2022 11:19-0400 Systolic blood pressure 120 mm[Hg] NA Swain PA-C Work Phone: [facility] 09-21-2022 12:56-0400 Body temperature 99.19 [degF] Caroline Miller PA-C Work Phone: [facility] 09-21-2022 12:56-0400 Body weight 91.63 kg Caroline Miller PA-C Work Phone: [facility] 09-21-2022 12:56-0400 Diastolic blood pressure 82 mm[Hg] Caroline Miller PA-C Work Phone: [facility] 09-21-2022 12:56-0400 Heart rate 64 /min Caroline Miller PA-C Work Phone: [facility] 09-21-2022 12:56-0400 Respiratory rate 20 /min Caroline Miller PA-C Work Phone: [facility] 09-21-2022 12:56-0400 SaO2% (BldA) [Mass fraction] 97 % Caroline Miller PA-C Work Phone: [facility] 09-21-2022 12:56-0400 Systolic blood pressure 116 mm[Hg] Caroline Miller PA-C Work Phone: [facility] 09-20-2022 19:26-0400 Diastolic blood pressure 68 mm[Hg] Dr. Asif Haque Work Phone: [facility] 09-20-2022 19:26-0400 Heart rate 70 /min Dr. Asif Haque Work Phone: [facility] 09-20-2022 19:26-0400 Respiratory rate 18 /min Dr. Asif Haque Work Phone: 7(598)304-070334 [place] [address] 09-20-2022 19:26-0400 SaO2% (BldA) [Mass fraction] 100 % Dr. Asif Haque Work Phone: 4(389)357-416225 [place] [address] 09-20-2022 19:26-0400 Systolic blood pressure 120 mm[Hg] Dr. Asif Haque Work Phone: 8(726)395-752025 [place] [address] 09-20-2022 17:01-0400 Body height 170.[address] Asif Haque Work Phone: 9(967)266-131925 [place] [address] 09-20-2022 17:01-0400 Body mass index (BMI) [Ratio] 31.6 kg/m2 Dr. Asif Haque Work Phone: 1(195)819-330925 [place] [address] 09-20-2022 17:01-0400 Body temperature 99.7 [degF] Dr. Asif Haque Work Phone: 2(429)221-666925 [place] [address] 09-20-2022 17:01-0400 Body weight 91.[address] Asif Haque Work Phone: 2(115)984-694225 [place] [address] 07-19-2022 06:33-0400 Body temperature 101.4 [degF] Dr. Asif Haque Work Phone: 6(023)232-392025 [place] [address] 07-19-2022 06:33-0400 Diastolic blood pressure 74 mm[Hg] Dr. Asif Haque Work Phone: 1(286)847-189325 [place] [address] 07-19-2022 06:33-0400 Heart rate 110 /min Dr. Asif Haque Work Phone: 3(866)556-166725 [place] [address] 07-19-2022 06:33-0400 Respiratory rate 16 /min Dr. Asif Haque Work Phone: 1(366)813-149825 [place] [address] 07-19-2022 06:33-0400 SaO2% (BldA) [Mass fraction] 97 % Dr. Asif Haque Work Phone: 3(184)313-772825 [place] [address] 07-19-2022 06:33-0400 Systolic blood pressure 132 mm[Hg] Dr. Asif Haque Work Phone: 2(345)922-169325 [place] [address] 05-14-2022 09:58-0500 Body weight 96.62 kg NA Swain PA-C Work Phone: [facility] 05-14-2022 09:58-0500 Diastolic blood pressure 64 mm[Hg] NA Swain PA-C Work Phone: [facility] 05-14-2022 09:58-0500 Heart rate 70 /min NA Swain PA-C Work Phone: [facility] 05-14-2022 09:58-0500 Respiratory rate 16 /min NA Swain PA-C Work Phone: [facility] 05-14-2022 09:58-0500 SaO2% (BldA) [Mass fraction] 96 % NA Swain PA-C Work Phone: [facility] 05-14-2022 09:58-0500 Systolic blood pressure 120 mm[Hg] NA Swain PA-C Work Phone: [facility] 04-21-2022 09:25-0500 Body temperature 100.9 [degF] Nettie Haagen [employer]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 Work Phone: [facility] 04-21-2022 09:25-0500 Diastolic blood pressure 82 mm[Hg] Nettie Haagen [employer] BANK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 Work Phone: [facility] 04-21-2022 09:25-0500 Heart rate 86 /min Nettie Haagen [employer] BANK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 Work Phone: [facility] 04-21-2022 09:25-0500 Respiratory rate 18 /min Nettie Haagen [employer] BANK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 Work Phone: [facility] 04-21-2022 09:25-0500 SaO2% (BldA) [Mass fraction] 96 % Nettie Haagen [employer] BANK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 Work Phone: [facility] 04-21-2022 09:25-0500 Systolic blood pressure 124 mm[Hg] Nettie Haagen [employer] BANK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 Work Phone: [facility] 03-10-2022 09:06-0400 Body temperature 98.91 [degF] Josiah Gould MD Work Phone: [facility] 03-10-2022 09:06-0400 Body weight 102.06 kg Josiah Gould MD Work Phone: [facility] 03-10-2022 09:06-0400 Diastolic blood pressure 80 mm[Hg] Josiah Gould MD Work Phone: [facility] 03-10-2022 09:06-0400 Heart rate 93 /min Josiah Gould MD Work Phone: [facility] 03-10-2022 09:06-0400 Respiratory rate 18 /min Josiah Gould MD Work Phone: [facility] 03-10-2022 09:06-0400 SaO2% (BldA) [Mass fraction] 98 % Josiah Gould MD Work Phone: [facility] 03-10-2022 09:06-0400 Systolic blood pressure 118 mm[Hg] Josiah Gould MD Work Phone: [facility] 02-11-2022 11:55-0400 Body weight 107.5 kg NA Swain PA-C Work Phone: [facility] 02-11-2022 11:55-0400 Diastolic blood pressure 76 mm[Hg] NA Swain PA-C Work Phone: [facility] 02-11-2022 11:55-0400 Heart rate 81 /min NA Swain PA-C Work Phone: [facility] 02-11-2022 11:55-0400 Respiratory rate 16 /min NA Swain PA-C Work Phone: [facility] 02-11-2022 11:55-0400 SaO2% (BldA) [Mass fraction] 98 % NA Swain PA-C Work Phone: [facility] 02-11-2022 11:55-0400 Systolic blood pressure 120 mm[Hg] NA Swain PA-C Work Phone: [facility] 11-10-2021 08:11-0400 Body weight 122.02 kg NA Swain PA-C Work Phone: [facility] 11-10-2021 08:11-0400 Diastolic blood pressure 72 mm[Hg] NA Swain PA-C Work Phone: [facility] 11-10-2021 08:11-0400 Heart rate 74 /min NA Swain PA-C Work Phone: [facility] 11-10-2021 08:11-0400 SaO2% (BldA) [Mass fraction] 99 % NA Swain PA-C Work Phone: [facility] 11-10-2021 08:11-0400 Systolic blood pressure 114 mm[Hg] NA Swain PA-C Work Phone: [facility] 09-28-2021 16:01-0400 Body height 167.6 cm Scooby Pollock MD Work Phone: [facility] 09-28-2021 16:01-0400 Body weight 129.82 kg Scooby Pollock MD Work Phone: [facility] 08-12-2021 10:58-0400 Body height 167.6 cm Fellow [address] Work Phone: [facility] 08-12-2021 10:58-0400 Body weight 140.62 kg [address] Main Work Phone: [facility] 08-11-2021 12:51-0400 Body height 167.[address] Work Phone: [facility] 08-11-2021 12:51-0400 Body weight 140.[address] Work Phone: [facility] 03-02-2017 08:53-0400 BMI (Body Mass Index) 47.98 kg/m2 Julissa Connell MD [facility] 03-02-2017 08:53-0400 Body Temperature 97.5 [degF] Julissa Connell MD [facility] 03-02-2017 08:53-0400 BP Diastolic 70 mm[Hg] Julissa Connell MD [facility] 03-02-2017 08:53-0400 BP Systolic 111 mm[Hg] Julissa Connell MD [facility] 03-02-2017 08:53-0400 Pulse (Heart Rate) 80 /min Julissa Connell MD [facility] 03-02-2017 08:53-0400 Respiratory Rate 16 /min Julissa Connell MD [facility] 03-02-2017 08:53-0400 Weight 138.98 kg Julissa Connell MD [facility] 12-15-2016 11:14-0400 Height 170.18 cm Julissa Connell MD [facility] Encounters Encounter Date Encounter Type Care Provider Facility Start: 03-01-2025 End: 03-01-20[facility] Start: 01-17-2025 End: 01-17-2025 Patient encounter procedure Manuela Isbell MD Work Phone: Endocrinology Comment on above: Hypoglycemia after G I (gastrointestinal) surgery (HCC) (Primary Dx); Status post bariatric surgery; Class 2 severe obesity with serious comorbidity and body mass index (BMI) of 38.0 to 38.9 in adult, unspecified obesity type (HCC); Abdominal pain, unspecified abdominal location Start: 01-17-2025 End: 01-17-2025 [facility] Start: 12-31-2024 End: 12-31-2024 Admission to same day surgery center Stef Luis RD Work Phone: General Surgery Comment on above: Class 2 obesity (Keyana nagi Dx); Dietary counseling and surveillance; S/P gastric bypass; Impaired intestinal absorption (HCC) Start: 12-31-2024 End: 12-31-2024 Telemedicine consultation with patient Stef Luis RD Work Phone: General Surgery Start: 12-31-2024 End: 12-31-2024 ambulatory STEF LUIS Facility:[facility] Start: 12-26-2024 End: 12-26-2024 Patient encounter procedure Herminio CALLES [facility] Work Phone: Start: 12-26-2024 End: 12-26-[address] Asif Haque MD Work Phone: -[facility] Start: 12-05-2024 End: 12-05-2024 ambulatory DONITA HICKS YURIDIACHIDI Facility:[facility] Start: 12-04-2024 End: 12-04-2024 Telephone encounter Manuela Isbell MD Work Phone: [facility] [place] Comment on above: Appointment Start: 12-03-2024 End: [...] Start: 11-05-2024 End: 11-05-2024 ambulatory STEF LUIS Facility:[facility] Start: 10-28-2024 End: 10-29-2024 ambulatory Manuela Isbell MD Work Phone: Endocrinology Comment on above: Struggling with my b lood sugars Start: 09-21-2024 End: 09-21-2024 Patient encounter procedure [facility] Work Phone: Start: 09-21-2024 End: 09-21-[address] Asif Haque MD Work Phone: [facility] Work Phone: Start: 08-21-2024 End: 09-19-2024 ambulatory Manuela Isbell MD Work Phone: Endocrinology Comment on above: Medicine question Start: 08-10-2024 End: 10-10-2024 Follow-up encounter Manuela Isbell MD Work Phone: Endocrinology Start: 08-09-2024 End: 08-09-2024 ambulatory MANUELA ISBELL Facility:[facility] Start: 08-09-2024 End: 08-09-2024 Patient encounter [...] Start: 07-13-2024 End: 07-13-2024 ambulatory STEF LUIS Facility:[facility] Start: 07-13-2024 End: 07-13-2024 Telemedicine consultation with patient Stef Luis RD Work Phone: General Surgery Start: 07-13-2024 End: 07-13-2024 ambulatory MANUELA ISBELL Facility:[facility] Start: 07-09-2024 End: 07-09-2024 Follow-up encounter Manuela Isbell MD Work Phone: General Surgery Comment on above: Hypoglycemia after G I (gastrointestinal) surgery (Primary Dx) Start: 07-09-2024 End: 07-09-2024 Telephone encounter Manuela Isbell MD Work Phone: Endocrinology Comment on above: Appointment (Called patient and left voicemail to notify of scheduled appointment) Start: 07-06-2024 End: 07-06-2024 ambulatory MANUELA ISBELL Facility:[facility] Start: 07-04-2024 End: 07-04-2024 Admission to same day surgery center Manuela Isbell MD Work Phone: General Surgery Comment on above: Hypoglycemia after G I (gastrointestinal) surgery (Primary Dx) Start: 07-04-2024 End: 07-04-2024 ambulatory MANUELA ISBELL Facility:[facility] Start: 07-04-2024 End: 07-04-2024 Telemedicine consultation with patient Manuela Isbell MD Work Phone: General Surgery Start: 05-30-2024 End: 05-30-[address] Felice Centeno MD -Ultrasound [facility] Work Phone: Start: 05-29-2024 End: 05-29-2024 Admission to same day surgery center Ping Ansair APRN.BLOOD BANK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 Work Phone: General Surgery BMI Comment on above: S/P gastric bypass ( Primary Dx) Start: 05-29-2024 End: 05-29-2024 Telemedicine consultation with patient Ping Ansari APRN.BLOOD BANK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 Work Phone: General Surgery BMI Start: 05-29-2024 End: 05-30-2024 [facility] Start: 05-21-2024 Encounter for gynecological examination (general) (routine) with abnormal findings Julissa Connell [facility] Start: 05-21-2024 End: 05-21-2024 ambulatory [facility] Facility:[facility] Start: 05-21-2024 End: 05-21-2024 ambulatory [facility] Facility:[facility] Start: 04-16-2024 End: 04-16-2024 ambulatory Herminio Byrnes Facility:[facility] Start: 04-09-2024 End: 04-09-2024 Admission to same day surgery center Stef Luis RD Work Phone: General Surgery Comment on above: Class 1 obesity (Keyana nagi Dx); Dietary counseling and surveillance; S/P gastric bypass; Impaired intestinal absorption Start: 04-09-2024 End: 04-09-2024 ambulatory STEF TOBY Facility:[facility] Start: 04-09-2024 End: 04-09-2024 Telemedicine consultation with patient Stef Dimandrae CHERY Work Phone: General Surgery Start: 03-14-2024 End: 03-14-2024 ambulatory Julissa Connell Facility:[facility] Start: 03-08-2024 End: 03-08-2024 ambulatory [facility] Start: 03-06-2024 End: 03-06-2024 Patient encounter procedure Ike Carmichael [employer].BLOOD BANK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 Work Phone: [facility] Comment on above: Bacterial sinusitis (Primary Dx) Start: 02-21-2024 End: 02-21-2024 ambulatory [facility] Facility:[facility] Start: 02-20-2024 End: 02-20-2024 Admission to same day surgery center Ping Prince APRN.BLOOD BANK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 Work Phone: General Surgery Comment on above: Class 1 obesity (Keyana nagi Dx) Start: 02-20-2024 End: 02-20-2024 Telemedicine consultation with patient Ping Jonesrickie WESLEY.BLOOD BANK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 Work Phone: General Surgery Start: 02-14-2024 End: 02-14-2024 Patient encounter procedure Donita Green MD Work Phone: Endocrinology Comment on above: Collin's thyroidi tis (Primary Dx); Thyroid nodule Start: 01-12-2024 End: 01-12-2024 Orders Only Ping Prince APRN.BLOOD BANK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 Work Phone: General Surgery BMI Comment on [...] End: 12-19-2023 Subsequent hospital visit by physician [facility] Work Phone: Radiology Comment on above: Thyroid nodule [E04. 1] Start: 11-21-2023 End: 11-21-2023 Office outpatient visit 25 minutes Kiera Bragg APRN.CNP Work Phone: [facility] Comment on above: Tinea cruris (Primar [...] Start: 07-14-2023 End: 07-14-2023 ambulatory Ping Prince MARYJANE.BLOOD BANK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 Work Phone: General Surgery BMI Comment on above: S/P gastric bypass ( Primary Dx); Collin's thyroiditis Start: 07-14-2023 End: 07-14-2023 Telemedicine consultation with patient Ping Prince MARYJANE.BLOOD BANK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 Work Phone: [facility] Start: 07-07-2023 End: 07-07-[address] Work Phone: General Surgery Comment on above: Class 3 obesity (HCC ) (Primary Dx); Dietary counseling and surveillance; S/P gastric bypass Start: 07-07-2023 End: 07-07-2023 Telemedicine consultation with patient Stef Luis RD Work Phone: [facility] Start: 06-21-2023 End: 06-21-[address] Asif Haque Work Phone: [facility] Work Phone: Start: 06-21-2023 End: 06-21-[address] [facility] Work [facility]: Start: 05-13-2023 End: 05-13-[address] Asif Haque Work Phone: [facility] Work Phone: Start: 05-10-2023 End: 05-10-[address] Asif Haque Work Phone: [facility] Work Phone: Start: 03-09-2023 End: 03-09-[address] As[facility] Haque [facility] Work [facility]: Start: 03-09-2023 End: 03-09-[address] Asif Haque Work Phone: [facility] Work Phone: Start: 02-04-2023 Telephone encounter Phyllis rogers MD Work Phone: General Surgery Comment on above: Returning Patient's Call Start: 12-23-2022 Telephone encounter Debra Swain PA-C Work Phone: [facility] Start: 11-22-2022 End: 11-22-2022 Subsequent hospital visit by physician [facility] Work Phone: Radiology Comment on above: Thyromegaly [E01.0] Start: 11-18-2022 End: 11-18-2022 Patient encounter procedure Debra Swain PA-C Work Phone: [facility] Comment on above: Panic disorder (Prim swathi Dx); Thyromegaly; Morbid obesity (HCC); Gastroesophageal reflux disease, unspecified whether esophagitis present Start: 09-21-2022 End: 09-21-2022 Subsequent hospital visit by physician [facility] Work Phone: Radiology Comment on above: Right flank pain [R1 0.9] Start: 09-21-2022 End: 09-21-2022 Patient encounter procedure Caroline Miller PA-C Work Phone: [facility] Comment on above: RUQ pain (Primary Dx ); Right flank pain; Nausea; Epigastric pain; Acute constipation Start: 09-20-2022 End: 09-20-2022 Emergency department patient visit Dr. Asif Haque Work Phone: [facility] Start: 07-19-2022 End: 07-19-[address] Asif Haque Work Phone: [facility] Start: 06-06-2022 ambulatory Debra sanchez PA-C Work Phone: [facility] Comment on above: Groin cyst flair Start: 05-14-2022 End: 05-14-2022 Patient encounter procedure Debra Rm Swain PA-C Work Phone: [facility] [place] Comment on above: S/P bariatric surger y (Primary Dx); Hair loss; Cystic acne; Influenza A; Loss of libido; Prediabetes; Screening for lipid disorders Start: 04-22-2022 ambulatory Debra Rm sanchez PA-C Work Phone: [facility] [place] Comment on above: vertigo Start: 04-22-2022 Telephone encounter Debra Rm Swain PA-C Work Phone: [facility] Comment on above: Results Start: 04-21-2022 End: 04-21-2022 Office outpatient visit 15 minutes Nettie Canales APRN.CNP Work Phone: [facility] Comment on above: Upper respiratory sy mptom (Primary Dx) Start: 03-10-2022 End: 03-10-2022 Patient encounter procedure Josiah Gould MD Work Phone: [facility] Comment on above: Acute non-recurrent sinusitis, unspecified location (Primary Dx) Start: 02-11-2022 End: 02-11-2022 Patient encounter procedure Debra Rm Swain PA-C Work Phone: [facility] Comment on above: Iron deficiency anem ia, [...] with patient Asia Eduardo PhD Work Phone: [facility] Start: 11-14-2021 Telephone encounter Debra Rm Swain PA-C Work Phone: [facility] Comment on above: Results; Orders Start: 11-11-2021 Telephone encounter Debra Rm Swain PA-C Work Phone: [facility] Comment on above: Opened In Error Start: 11-10-2021 End: 11-10-2021 Patient encounter procedure Debra Larrylacey WILLOUGHBY Work Phone: [facility] Comment on above: Hair loss (Primary D x); Fatigue, unspecified type; S/P bariatric surgery; Leg cramps; Cystic acne Start: 09-29-2021 End: 09-29-2021 ambulatory Scooby Pollock MD Work Phone: General Surgery Comment on above: NO SHOW (Primary Dx) Start: 09-29-2021 End: 09-29-2021 Telemedicine consultation with patient Scooby Pollock MD Work Phone: [facility] Start: 08-12-2021 End: 08-12-2021 ambulatory Fellow Colton Main Work Phone: General Surgery Comment on above: Body mass index 50.0 -59.9, adult (HCC) (Primary Dx); S/P gastric bypass Start: 08-12-2021 End: 08-12-2021 Telemedicine consultation with patient Fellow Colton Main Work Phone: [facility] Start: 08-11-2021 End: 08-11-[address] Work Phone: General Surgery Comment on above: Reassessment; Becca t Education Start: 07-17-2018 Patient encounter procedure CARLOS TURNER [facility] Start: 06-15-2018 End: 06-15-2018 Patient encounter procedure JULISSA CONNELL [facility] Start: 05-22-2018 Patient encounter Wells [facility] Start: 04-17-2018 Patient encounter Wells [facility] Start: 04-13-2018 End: 04-13-2018 Patient encounter procedure OWEN GOETZ [facility] Start: 03-20-2018 Patient encounter Wells [facility] Start: 03-13-2018 Patient encounter procedure CARLOS TURNER [facility] Start: 02-13-2018 Patient encounter Kenneth Ortiz [facility] Start: 01-31-2018 Patient encounter procedure LARRY RAMAN [facility] Start: 01-19-2018 End: 01-19-2018 Patient encounter procedure CELESTE PISANO [facility] Start: 01-16-2018 Patient encounter Kenneth Ortiz [facility] Start: 12-27-2017 Patient encounter Masood Stock [facility] Start: 12-23-2017 Patient encounter Ranjit Wade [facility] Start: 12-19-2017 Patient encounter Sweetie Lisa [facility] Start: 12-16-2017 [facility] Start: 12-12-2017 Patient encounter Kenneth Ortiz [facility] Start: 11-14-2017 [facility] Start: 10-13-2017 Patient encounter Masood Stock [facility] Start: 10-13-2017 Patient encounter Masood Stock [facility] Start: 08-11-2017 End: 08-11-2017 Emergency department patient visit VALDEZ CarlsonMichelle NAHIDLEON Facility:B Procedures Date Procedure Procedure Detail Performing [...] Phone: Start: 08-09-2024 Hemoglobin A1c/Hemoglobin.total in Blood Manueal Isbell MD Work Phone: Start: 05-30-2024 US scan of thyroid Dr. Asif Haque MD Work Phone: Start: 11-22-2022 Us soft tissue head & neck real time imge docm M Rm Swain PA-C Work Phone: Start: 09-21-2022 Radiologic exam abdo men 1 view Caroline Miller PA-C Work Phone: Start: 09-20-2022 CT of abdomen and pe lvis without contrast Dr. Asif Haque Work Phone: Start: 12-02-2021 Adult depression scr eening assessment Asia Jayce PhD Work Phone: Start: 07-26-2021 Adult depression scr eening assessment Summer Bender RD Work Phone: Start: 03-02-2017 End: 03-02-2017 nonstress test Julissa echeverria MD Work Phone: Start: 03-02-2017 End: 03-02-2017 Us uterus limited 1/> fetuses Julissa Connell MD Work Phone: Start: 01-12-2017 End: 02-15-2017 *CUUID - Urine MOHAN Culture - Identificatn Laura Martino STENCIL PRINTER Work Phone: Start: 12-29-2016 End: 02-15-2017 Us preg uterus after 1st trimest 1/ gestation Laura Martino STENCIL PRINTER Work Phone: Start: 12-21-2016 End: 12-22-2016 Chiropractic manipulative tx spinal 1-2 regions Juana Palafox DC Work Phone: Plan of Treatment Date Care Activity Detail Author Start: 05-06-2025 HPV TESTING HPV TESTING [facility] Start: 05-06-2025 PAP TESTING PAP TESTING [facility] Start: 05-06-2025 Screening for malign ant neoplasm of cervix [facility] Start: 04-01-2025 End: 04-01-2025 Follow-up encounter 04/01/2025 9:30 AM [facility] [address] [place] [address] [facility] [place] [address] follow up post op complications General Surgery Comment on above: follow up post op co mplications Start: 01-17-2025 End: 04-18-2025 25-hydroxyvitamin D3 [Mass/volume] in Serum or Plasma VITAMIN D 25 HYDROXY Lab Routine Status post bariatric surgery Expected: 01/17/2025, Expires: 04/18/2025 [facility] Comment on above: Expected: 01/17/2025 , Expires: 04/18/2025 Start: 01-17-2025 End: 04-18-2025 CBC panel - Blood by Automated count COMPLETE BLOOD COUNT Lab Routine Status post bariatric surgery Expected: 01/17/2025, Expires: 04/18/2025 [facility] Comment on above: Expected: 01/17/2025 , Expires: 04/18/2025 Start: 01-17-2025 End: 04-18-2025 Cobalamin (Vitamin B12) [Mass/volume] in Serum or Plasma VITAMIN B12 Lab Routine Status post bariatric surgery Expected: 01/17/2025, Expires: 04/18/2025 [facility] Comment on above: Expected: 01/17/2025 , Expires: 04/18/2025 Start: 01-17-2025 End: 04-18-2025 Comprehensive metabolic 2000 panel - Serum or Plasma COMPREHENSIVE METABOLIC PANEL Lab Routine Status post bariatric surgery Expected: 01/17/2025, Expires: 04/18/2025 [facility] Comment on above: Expected: 01/17/2025 , Expires: 04/18/2025 Start: 01-17-2025 End: 04-18-2025 Ferritin [Mass/volume] in Serum or Plasma FERRITIN Lab Routine Status post bariatric surgery Expected: 01/17/2025, Expires: 04/18/2025 [facility] Comment on above: Expected: 01/17/2025 , Expires: 04/18/2025 Start: 01-17-2025 End: 04-18-2025 Folate [Mass/volume] in Serum or Plasma FOLATE, SERUM Lab Routine Status post bariatric surgery Expected: 01/17/2025, Expires: 04/18/2025 [facility] Comment on above: Expected: 01/17/2025 , Expires: 04/18/2025 Start: 01-17-2025 End: 04-18-2025 Iron and Iron binding capacity panel - Serum or Plasma IRON AND TIBC Lab Routine Status post bariatric surgery Expected: 01/17/2025, Expires: 04/18/2025 [facility] Comment on above: Expected: 01/17/2025 , Expires: 04/18/2025 Start: 01-17-2025 End: 04-18-2025 Parathyrin.intact [Mass/volume] in Serum or Plasma PTH INTACT Lab Routine Status post bariatric surgery Expected: 01/17/2025, Expires: 04/18/2025 [facility] Comment on above: Expected: 01/17/2025 , Expires: 04/18/2025 Start: 01-17-2025 End: 04-18-2025 VITAMIN B1 (THIAMINE), WHOLE BLOOD VITAMIN B1 (THIAMINE), WHOLE BLOOD Lab Routine Status post bariatric surgery Expected: 01/17/2025, Expires: 04/18/2025 [facility] Work Phone: Comment on above: Expected: 01/17/2025 , Expires: 04/18/2025 Start: 01-17-2025 End: 01-17-2025 Patient encounter procedure 01/17/2025 10:40 AM EDT Office Visit Endocrinology [address] [place] [address] Alkhaled, MD Manuela [address] [place] [address] 3 month f/u-ok to split spot per Alkhaled Endocrinology Comment on above: 3 month f/u-ok to sp lit spot per Alkhaled Start: 01-14-2025 End: 01-14-2025 Patient encounter procedure 01/14/2025 9:20 AM EDT Office Visit Endocrinology [address] [place] [address] Donita Green MD [address] [place] [address] 11 month f/u- Thyroid US review Endocrinology Comment on above: 11 month f/u- Thyroi d US review Start: 01-07-2025 Influenza vaccination [facility] Start: 12-31-2024 End: 12-31-2024 Follow-up encounter 12/31/2024 9:30 AM EDT [facility] [address] [place] [address] [place] [address] follow up post op hypoglycemia General Surgery Comment on above: follow up post op hy poglycemia Start: 12-24-2024 End: 12-24-2024 Patient encounter procedure 12/24/2024 1:00 PM EDT Appointment Radiology [address] [place] [address] Thyroid nodule [E04.1] Radiology Comment on above: Thyroid nodule [E04. 1] Start: 12-20-2024 End: 12-20-2024 Patient encounter procedure 12/20/2024 11:20 AM EDT Office Visit Endocrinology [address] [place] [phone] Manuela Isbell MD [address] [place] [address] 3 month f/u Endocrinology Comment on above: 3 month f/u Start: 12-18-2024 End: 03-19-2025 Thyrotropin [Units/volume] in Serum or Plasma THYROID STIMULATING HORMONE Lab Routine Thyroid nodule Expected: 12/18/2024, Expires: 03/19/2025 [facility] Comment on above: Expected: 12/18/2024 , Expires: 03/19/2025 Start: 12-18-2024 End: 03-15-2025 US Thyroid gland US THYROID/PARATHYROID Radiology Routine Thyroid nodule Expected: 12/18/2024, Expires: 03/15/2025 [facility] Work Phone: Comment on above: Expected: 12/18/2024 , Expires: 03/15/2025 Start: 12-05-2024 End: 12-05-2024 ambulatory 12/05/2024 7:00 AM EDT Results Only [facility] [address] [place] [address] [facility] Start: 11-09-2024 [facility] Start: 11-07-2024 [facility] Start: 11-07-2024 Enteric precautions [facility] Start: 11-05-2024 End: 11-05-2024 Follow-up encounter 11/05/2024 9:30 AM EDT [facility] [address] [place] [address] [place] [phone] follow up post op aom/hypoglycemia General Surgery Comment on above: follow up post op ao m/hypoglycemia Start: 10-12-2024 End: 10-12-2024 Follow-up encounter 10/12/2024 1:30 PM EDT [facility] [address] [place], [place] [id number] [address]f [address] [place] [phone] follow up post op aom/hypoglycemia General Surgery Comment on above: follow up post op ao m/hypoglycemia Start: 08-09-2024 End: 08-09-2024 Patient encounter procedure 08/09/2024 10:00 AM EDT Office Visit Endocrinology [address] [place] [address] Manuela Isbell MD [address] [place] [phone] please schedule this patient to be seen in my x building clinic in about a month from now? Endocrinology Comment on above: please schedule this patient to be seen in my x building clinic in about a month from now? Start: 07-13-2024 End: 07-13-2024 Follow-up encounter 07/13/2024 1:30 PM EST [facility] [address] [place] [address] [place] [address] follow up post op aom General Surgery Comment on above: follow up post op ao m Start: 07-09-2024 End: 10-08-2024 B-HYDROXYBUTYRATE B-HYDROXYBUTYRATE Lab Routine Hypoglycemia after GI (gastrointestinal) surgery Expected: 07/09/2024, Expires: 10/08/2024 [facility] Work Phone: Comment on above: Expected: 07/09/2024 , Expires: 10/08/2024 Start: 07-09-2024 End: 10-08-2024 C peptide [Mass/volume] in Serum or Plasma C-PEPTIDE BLD Lab Routine Hypoglycemia after GI (gastrointestinal) surgery Expected: 07/09/2024, Expires: 10/08/2024 [facility] Comment on above: Expected: 07/09/2024 , Expires: 10/08/2024 Start: 07-09-2024 End: 10-08-2024 Fasting glucose [Mass/volume] in Serum or Plasma GLUCOSE, FASTING Lab Routine Hypoglycemia after GI (gastrointestinal) surgery Expected: 07/09/2024, Expires: 10/08/2024 [facility] Comment on above: Expected: 07/09/2024 , Expires: 10/08/2024 Start: 07-09-2024 End: 10-08-2024 Insulin [Units/volume] in Serum or Plasma INSULIN, TOTAL, SERUM Lab Routine Hypoglycemia after GI (gastrointestinal) surgery Expected: 07/09/2024, Expires: 10/08/2024 [facility] Comment on above: Expected: 07/09/2024 , Expires: 10/08/2024 Start: 07-09-2024 End: 07-09-2024 Follow-up encounter 07/09/2024 1:00 PM EST [facility] [address] [place] [address] [address] Luis, RD [address] [place], [place] [phone] follow up post op aom General Surgery Comment on above: follow up post op ao m Start: 07-06-2024 End: 07-06-2024 ambulatory 07/06/2024 7:00 AM EST Results Only [facility] [address] [place] [address] [facility] Start: 07-04-2024 End: 07-04-2024 Admission to same day surgery center 07/04/2024 3:15 PM EST [facility] [address] [place] [address] Manuela Isbell MD [address] [place], [place] [phone] reactive hypoglycemia General Surgery Comment on above: reactive hypoglycemi a Start: 07-04-2024 End: 10-03-2024 B-HYDROXYBUTYRATE B-HYDROXYBUTYRATE Lab Routine Hypoglycemia after GI (gastrointestinal) surgery Expected: 07/04/2024, Expires: 10/03/2024 [facility] Comment on above: Expected: 07/04/2024 , Expires: 10/03/2024 Start: 07-04-2024 End: 10-03-2024 C peptide [Mass/volume] in Serum or Plasma C-PEPTIDE BLD Lab Routine Hypoglycemia after GI (gastrointestinal) surgery Expected: 07/04/2024, Expires: 10/03/2024 [facility] Comment on above: Expected: 07/04/2024 , Expires: 10/03/2024 Start: 07-04-2024 End: 10-03-2024 Insulin [Units/volume] in Serum or Plasma INSULIN, TOTAL, SERUM Lab Routine Hypoglycemia after GI (gastrointestinal) surgery Expected: 07/04/2024, Expires: 10/03/2024 [facility] Work Phone: Comment on above: Expected: 07/04/2024 , Expires: 10/03/2024 Start: 03-30-2024 End: 03-30-2024 Follow-up encounter 03/30/2024 3:00 PM EST [facility] [address] [place] [address] [place] [address] follow up post op aom General Surgery Comment on above: follow up post op ao m Start: 03-23-2024 End: 03-23-2024 Follow-up encounter 03/23/2024 3:00 PM EST [facility] [address] [place] [address] Stef Luis, RD [address] [place] [address] follow up post op aom General Surgery Comment on above: follow up post op ao m Start: 02-20-2024 End: 02-20-2024 Admission to same day surgery center 02/20/2024 7:00 AM EDT [facility] [address] [place] [address] Ping Prince APRN.BLOOD BANK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 [address] [place] [address] weight mangement General Surgery Comment on above: weight mangement Start: 02-14-2024 End: 02-14-2024 Patient encounter procedure 02/14/2024 9:20 AM EDT Office Visit Endocrinology [address] [place] [address] Donita Green MD [address] [place] [address] 6 MTH F/U Endocrinology Comment on above: 6 MTH F/U Start: 01-12-2024 End: 04-12-2024 25-hydroxyvitamin D3 [Mass/volume] in Serum or Plasma VITAMIN D 25 HYDROXY Lab Routine S/P gastric bypass Expected: 01/12/2024, Expires: 04/12/2024 [facility] Comment on above: Expected: 01/12/2024 , Expires: 04/12/2024 Start: 01-12-2024 End: 04-12-2024 CBC W Auto Differential panel - Blood COMPLETE BLOOD COUNT AND DIFFERENTIAL Lab Routine S/P gastric bypass Expected: 01/12/2024, Expires: 04/12/2024 [facility] Work Phone: Comment on above: Expected: 01/12/2024 , Expires: 04/12/2024 Start: 01-12-2024 End: 04-12-2024 Cobalamin (Vitamin B12) [Mass/volume] in Serum or Plasma VITAMIN B12 Lab Routine S/P gastric bypass Expected: 01/12/2024, Expires: 04/12/2024 [facility] Comment on above: Expected: 01/12/2024 , Expires: 04/12/2024 Start: 01-12-2024 End: 04-12-2024 Comprehensive metabolic 2000 panel - Serum or Plasma COMPREHENSIVE METABOLIC PANEL Lab Routine S/P gastric bypass Expected: 01/12/2024, Expires: 04/12/2024 [facility] Comment on above: Expected: 01/12/2024 , Expires: 04/12/2024 Start: 01-12-2024 End: 04-12-2024 Ferritin [Mass/volume] in Serum or Plasma FERRITIN Lab Routine S/P gastric bypass Expected: 01/12/2024, Expires: 04/12/2024 [facility] Comment on above: Expected: 01/12/2024 , Expires: 04/12/2024 Start: 01-12-2024 End: 04-12-2024 Folate [Mass/volume] in Serum or Plasma FOLATE, SERUM Lab Routine S/P gastric bypass Expected: 01/12/2024, Expires: 04/12/2024 [facility] Comment on above: Expected: 01/12/2024 , Expires: 04/12/2024 Start: 01-12-2024 End: 04-12-2024 Hemoglobin A1c in Blood HEMOGLOBIN A1C Lab Routine S/P gastric bypass Expected: 01/12/2024, Expires: 04/12/2024 [facility] Comment on above: Expected: 01/12/2024 , Expires: 04/12/2024 Start: 01-12-2024 End: 04-12-2024 Iron and Iron binding capacity panel - Serum or Plasma IRON AND TIBC Lab Routine S/P gastric bypass Expected: 01/12/2024, Expires: 04/12/2024 [facility] Comment on above: Expected: 01/12/2024 , Expires: 04/12/2024 Start: 01-12-2024 End: 04-12-2024 Lipid 1996 panel - Serum or Plasma LIPID PANEL BASIC Lab Routine S/P gastric bypass Expected: 01/12/2024, Expires: 04/12/2024 [facility] Comment on above: Expected: 01/12/2024 , Expires: 04/12/2024 Start: 01-12-2024 End: 04-12-2024 Thyrotropin [Units/volume] in Serum or Plasma THYROID STIMULATING HORMONE Lab Routine S/P gastric bypass Expected: 01/12/2024, Expires: 04/12/2024 [facility] Comment on above: Expected: 01/12/2024 , Expires: 04/12/2024 Start: 01-12-2024 End: 04-12-2024 VITAMIN B1 (THIAMINE), WHOLE BLOOD VITAMIN B1 (THIAMINE), WHOLE BLOOD Lab Routine S/P gastric bypass Expected: 01/12/2024, Expires: 04/12/2024 [facility] Comment on above: Expected: 01/12/2024 , Expires: 04/12/2024 Start: 01-08-2024 Covid-19 Vaccine ( season) Covid-19 Vaccine ( season) [facility] Start: 01-08-2024 Covid-19 Vaccine ( season) Covid-19 Vaccine ( season) [facility] Start: 01-08-2024 Influenza vaccination [facility] Start: 01-06-2024 End: 01-06-2024 Admission to same day surgery center 01/06/2024 3:00 PM EDT [facility] [address] [place] [address] Stef Luis, MIRI [address] [place] [address] post op rygb aom General Surgery Comment on above: post op rygb aom Start: 12-19-2023 End: 12-19-2023 Patient encounter procedure 12/19/2023 9:15 AM EDT Appointment Radiology [address] [place] [address] THYROID ULTRASOUND Radiology Comment on above: THYROID ULTRASOUND Start: 11-21-2023 End: 11-21-2023 Patient encounter procedure 11/21/2023 9:00 AM EDT Office Visit Family Medicine [facility] [address] [place] [address] Debra Swain PA-C [address] [place] [address] annual exam [facility] [place] Comment on above: annual exam Start: 10-20-2023 End: 10-20-2023 Follow-up encounter 10/20/2023 11:30 AM EDT [facility] BMI [address] [place] [address] Ping Prince APRN.BLOOD BANK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 [address] [place] [address] 3 month follow up per [facility] General Surgery BMI Comment on above: 3 month follow up pe r bulow Start: 09-24-2023 COVID-19 VACCINE (#1) COVID-19 VACCI NE (#1) [facility] Comment on above: Postponed from 10/22 (Current Illness) Start: 09-24-2023 HEPATITIS B (1 of 3 - 3-dose series) HEPATITIS B (1 of 3 - 3-dose series) [facility] Comment on above: Postponed from 04/23 (Current Illness) Start: 09-24-2023 Hepatitis B Vaccine (1 of 3 - 19+ 3-dose series) Hepatitis B Vaccine (1 of 3 - 19+ 3-dose series) [facility] Comment on above: Postponed from 04/23 (Current Illness) Start: 09-24-2023 Hepatitis B Vaccine (1 of 3 - 3-dose series) Hepatitis B Vaccine (1 of 3 - 3-dose series) [facility] Comment on above: Postponed from 04/23 (Current Illness) Start: 09-24-2023 Urine microalbumin profile [facility] Comment on above: Postponed from 12/07 (Current Illness) Start: 06-21-2023 Zinc [Mass/volume] i n Serum or Plasma [facility] Start: 05-09-2023 Behavioral Health Screening Behavioral Health Screening [facility] Start: 05-09-2023 Depression Assessment Depression Ass essment [facility] Start: 05-08-2023 DEPRESSION ASSESSMENT DEPRESSION ASS ESSMENT [facility] Comment on above: Postponed from 05/09 (Declined at this time) Start: 01-07-2023 Covid-19 Vaccine () Covid-19 Vaccine () [facility] Start: 01-07-2023 Influenza vaccination [facility] Start: 12-02-2022 Adult depression screening assessment DEPRESSION SCREENING [facility] Start: 11-18-2022 End: 01-18-2023 Thyrotropin [Units/volume] in Serum or Plasma [facility] Work Phone: Comment on above: Expected: 11/18/2022 , Expires: 01/18/2023 Start: 09-21-2022 End: 11-21-2022 Amylase [Enzymatic activity/volume] in Serum or Plasma [facility] Work Phone: Comment on above: Expected: 09/21/2022 , Expires: 11/21/2022 Start: 09-21-2022 End: 11-21-2022 Comprehensive metabolic 2000 panel - Serum or Plasma [facility] Work Phone: Comment on above: Expected: 09/21/2022 , Expires: 11/21/2022 Start: 09-21-2022 End: 11-21-2022 Lipase [Enzymatic activity/volume] in Serum or Plasma [facility] Work Phone: Comment on above: Expected: 09/21/2022 , Expires: 11/21/2022 Start: 09-20-2022 [facility] Start: 07-26-2022 Adult depression screening assessment DEPRESSION SCREENING [facility] Start: 05-09-2022 DEPRESSION ASSESSMENT DEPRESSION ASS ESSMENT [facility] Start: 03-10-2022 End: 03-24-2022 SARS-CoV-2 (COVID-19) RNA [Presence] in Respiratory specimen by JATIN with probe detection 2019 CORONAVIRUS Microbiology Routine Acute non-recurrent sinusitis, unspecified location Expected: 03/10/2022, Expires: 03/24/2022 [facility] Work Phone: Comment on above: Expected: 03/10/2022 , Expires: 03/24/2022 Start: 02-14-2022 End: 04-16-2022 Ferritin [Mass/volume] in Serum or Plasma FERRITIN BLD Lab Routine Iron deficiency anemia, unspecified iron deficiency anemia type S/P bariatric surgery Expected: 02/14/2022, Expires: 04/16/2022 [facility] Work Phone: Comment on above: Expected: 02/14/2022 , Expires: 04/16/2022 Start: 02-14-2022 End: 04-16-2022 Folate [Mass/volume] in Serum or Plasma FOLATE SERUM Lab Routine Folic acid deficiency S/P bariatric surgery Expected: 02/14/2022, Expires: 04/16/2022 [facility] Work Phone: Comment on above: Expected: 02/14/2022 , Expires: 04/16/2022 Start: 01-07-2022 Influenza vaccination [facility] Start: 11-14-2021 End: 01-14-2022 Iron and Iron binding capacity panel - Serum or Plasma IRON + TIBC Lab Routine Iron deficiency anemia, unspecified iron deficiency anemia type S/P bariatric surgery Expected: 11/14/2021, Expires: 01/14/2022 [facility] Work Phone: Comment on above: Expected: 11/14/2021 , Expires: 01/14/2022 Start: 11-10-2021 End: 01-10-2022 Basic metabolic 2000 panel - Serum or Plasma [facility] Work Phone: Comment on above: Expected: 11/10/2021 , Expires: 01/10/2022 Start: 11-10-2021 End: 01-10-2022 CBC W Auto Differential panel - Blood [facility] Work Phone: Comment on above: Expected: 11/10/2021 , Expires: 01/10/2022 Start: 11-10-2021 End: 01-10-2022 Cobalamin (Vitamin B12) [Mass/volume] in Serum or Plasma [facility] Work Phone: Comment on above: Expected: 11/10/2021 , Expires: 01/10/2022 Start: 11-10-2021 End: 01-10-2022 Ferritin [Mass/volume] in Serum or Plasma [facility] Work Phone: Comment on above: Expected: 11/10/2021 , Expires: 01/10/2022 Start: 11-10-2021 End: 01-10-2022 Folate [Mass/volume] in Serum or Plasma [facility] Work Phone: Comment on above: Expected: 11/10/2021 , Expires: 01/10/2022 Start: 11-10-2021 End: 01-10-2022 Iron and Iron binding capacity panel - Serum or Plasma [facility] Work Phone: Comment on above: Expected: 11/10/2021 , Expires: 01/10/2022 Start: 11-10-2021 End: 01-10-2022 Magnesium [Mass/volume] in Serum or Plasma [facility] Work Phone: Comment on above: Expected: 11/10/2021 , Expires: 01/10/2022 Start: 11-10-2021 End: 01-10-2022 Thyrotropin [Units/volume] in Serum or Plasma [facility] Work Phone: Comment on above: Expected: 11/10/2021 , Expires: 01/10/2022 Start: 05-09-2021 DEPRESSION ASSESSMENT DEPRESSION ASS [facility] Start: 04-18-2017 End: 04-18-2017 Appointment Appointment [facility] Work Phone: Start: 03-11-2017 End: 03-11-2017 Appointment Appointment [facility] Start: 02-10-2017 End: 02-10-2017 *CUUID - Urine MOHAN Culture - Identificatn *CUUID - Urine MOHAN Culture - Identificatn [facility] Start: 02-10-2017 End: 02-10-2017 Streptococcus agalactiae DNA [Presence] in Unspecified specimen by JATIN with probe detection *GBSD - Group B Strep, DNA by PCR [facility] Start: 02-10-2017 End: 02-10-2017 Us preg uterus after 1st trimest / gestation US OB, >14 weeks [facility] Start: 01-12-2017 End: 02-15-2017 *CUUID - Urine MOHAN Culture - Identificatn *CUUID - Urine MOHAN Culture - Identificatn [facility] Start: 12-29-2016 End: 12-29-2016 *CUUID - Urine MOHAN Culture - Identificatn *CUUID - Urine MOHAN Culture - Identificatn [facility] Start: 12-29-2016 End: 02-15-2017 Us preg uterus after 1st trimest 05/09 gestation US OB, >14 weeks [facility] Start: 12-21-2016 End: 12-22-2016 Physical Therapy [facility], [address] [place] [address], [address] [facility] Start: 12-15-2016 End: 12-17-2016 Chiropractor Referral Chiropractor Referral [facility] Start: 2016 HPV Vaccine (1 - 3-d ose SCDM series) HPV Vaccine (1 - 3-dose SCDM series) [facility] Start: 2008 Hepatitis B Vaccine (1 of 3 - 19+ 3-dose series) Hepatitis B Vaccine (1 of 3 - 19+ 3-dose series) [facility] Start: 2007 Depression Screening Depression Scre ening [facility] Start: 12-07-2005 Urine microalbumin profile [facility] Start: 1995 PNEUMOCOCCAL (1 - PCV) PNEUMOCOCCAL (1 - PCV) [facility] Start: 1994 COVID-19 VACCINE (#1) COVID-19 VACCI NE (#1) [facility] Start: 1994 COVID-19 VACCINE (1) COVID-19 VACCIN E (1) [facility] Start: 1989 COVID-19 VACCINE (#1) COVID-19 VACCI NE (#1) [facility] Start: 1989 HEPATITIS B (1 of 3 - 3-dose series) HEPATITIS B (1 of 3 - 3-dose series) [facility] Bacteria identified in Urine by Culture Urine Culture [facility] Clostridioides diffi cile DNA [Presence] in Unspecified specimen by JATIN with probe detection [facility] Hemoglobin A1c/Hemoglobin.total in Blood HEMOGLOBIN A1C (POC) Lab Routine Class 2 severe obesity with serious comorbidity and body mass index (BMI) of 35.0 to 35.9 in adult, unspecified obesity type (HCC) Ordered: 08/09/2024 [facility] Work Phone: Comment on above: Ordered: 08/09/2024 Influenza virus A an d B RNA and SARS-CoV-2 (COVID-19) N gene panel - Respiratory specimen by JATIN with probe detection COVID WITH FLUA+B, ROUTINE Microbiology Routine Upper respiratory symptom Ordered: 04/21/2022 [facility] Work Phone: Comment on above: Ordered: 04/21/2022 Lactoferrin [Presenc e] in Stool by Immunoassay [facility] Nucleic acid assay [facility] Ova OR parasites identification [facility] Patient Education [facility] Work Phone: Patient referral [facility] Work Phone: End: 10-21-2023 US ABD RIGHT UPPER QUADRANT US ABD RIGHT UPPER QUADRANT Radiology Routine Right flank pain 1 Occurrences starting 09/21/2022 until 10/21/2023 [facility] Work Phone: Comment on above: 1 Occurrences starti ng 09/21/2022 until 10/21/2023 End: 12-18-2023 Us soft tissue head & neck real time imge docm US THYROID/PARATHYROID Radiology Routine Thyromegaly 1 Occurrences starting 11/18/2022 until 12/18/2023 [facility] Work Phone: Comment on above: 1 Occurrences starti ng 11/18/2022 until 12/18/2023 US Thyroid gland [facility] End: 09-13-2024 US Thyroid gland US THYROID/PARATHYROID Radiology Routine Thyroid nodule 1 Occurrences starting 08/15/2023 until 09/13/2024 [facility] Work Phone: Comment on above: 1 Occurrences starti ng 08/15/2023 until 09/13/2024 US Thyroid gland US THYROID/PARA THYROID Radiology Routine Thyroid nodule 12/19/2023 9:37 AM EDT [facility] Work Phone: End: 10-21-2023 XR ABDOMEN 1V SUPINE XR ABDOMEN 1V SUPINE Radiology Routine Right flank pain RUQ pain Epigastric pain Acute constipation 1 Occurrences starting 09/21/2022 until 10/21/2023 [facility] Work Phone: Comment on above: 1 Occurrences starti ng 09/21/2022 until 10/21/2023 XR ABDOMEN 1V SUPINE XR ABDOMEN 1V SUPINE Radiology Routine Right flank pain RUQ pain Epigastric pain Acute constipation 09/21/2022 1:54 PM EDT [facility] Work Phone: [facility] Immunizations Immunization Date Immunization Notes Care Provider Fa [facility] 02-24-2011 influenza virus vaccine, unspecified formulation Summer Bender RD Work Phone: [facility] Work Phone: 08-25-2009 tuberculin skin test ; purified protein derivative solution, intradermal Stef Luis RD Work Phone: [facility] 12-06-2005 tetanus and diphther ia toxoids, adsorbed, preservative free, for adult use (2 Lf of tetanus toxoid and 2 Lf of diphtheria toxoid) Summer Bender RD Work Phone: [facility] Work Phone: 12-12-2001 measles, mumps and rubella virus vaccine Summer Bender RD Work Phone: [facility] Work Phone: 12-30-1994 diphtheria, tetanus toxoids and acellular pertussis vaccine Summer Bender RD Work Phone: [facility] Work Phone: 12-30-1994 poliovirus vaccine, inactivated Summer Bender RD Work Phone: [facility] Work Phone: 11-16-1990 diphtheria, tetanus toxoids and pertussis vaccine Summer Bender RD Work Phone: [facility] Work Phone: 11-16-1990 poliovirus vaccine, inactivated Summer Bender RD Work Phone: [facility] Work Phone: 08-03-1990 haemophilus influenz ae type b vaccine, conjugate unspecified formulation Summer Bender RD Work Phone: [facility] Work Phone: 08-03-1990 measles, mumps and rubella virus vaccine Summer Bender RD Work Phone: [facility] Work Phone: 1989 diphtheria, tetanus toxoids and pertussis vaccine Summer Bender RD Work Phone: [facility] Work Phone: 1989 diphtheria, tetanus toxoids and pertussis vaccine Summer Bender RD Work Phone: [facility] Work Phone: 1989 poliovirus vaccine, inactivated Summer Bender RD Work Phone: [facility] Work Phone: 1989 diphtheria, tetanus toxoids and pertussis vaccine Summer Bender RD Work Phone: [facility] Work Phone: 1989 poliovirus vaccine, inactivated Summer Bender RD Work Phone: [facility] Work Phone: Payers Date Payer Category Payer Self-pay 2017 Medicaid [id number] 2016 Medicaid [employer] [id number] 2016-Present [phone] [address] [place] [address] Medicaid [id number] 2016 Medicaid [id number] 2016 Unknown [id number] 2015 Unknown [id number] 1989 Unknown [id number] 1989 Unknown [id number] 1989 Unknown [id number] 1989 Unknown [id number] 1989 Unknown [id number] 1989 Unknown [id number] Unknown Unknown [id number] Unknown [id number] Unknown [id number] Unknown [id number] Unknown [id number] Unknown [id number] Unknown [id number] Unknown [id number] Unknown [id number] Unknown [id number] Unknown [id number] Social History Date Type Detail Facility Start: 07-18-2012 End: 02-14-2024 Tobacco smoking status NHIS Ex-smoker [facility] Start: 05-25-2006 End: 11-23-2006 History of tobacco use Current smoker [facility] Start: 05-25-2006 End: 11-23-2006 History of tobacco use Cigarette Smoker [facility] Start: 07-18-2012 End: 02-14-2024 Tobacco use and exposure Smokeless tobacco non-user [facility] Start: 07-28-2021 End: 01-17-2025 Alcohol intake Ex-drinker (finding) [facility] Start: 07-27-2021 End: 05-11-2022 History SDOH Alcohol Frequency 1 [facility] Start: 07-27-2021 History SDOH Alcohol Std Drinks 98 [facility] Start: 09-08-2020 History SDOH Alcohol Comment stopped 08/19/2017 [facility] Start: 07-27-2021 End: 05-11-2022 History SDOH Social Connections Phone 3 [facility] Start: 07-27-2021 End: 05-11-2022 History SDOH Social Connections Get Together 2 [facility] Start: 07-27-2021 History SDOH Social Connections Living 8 [facility] Start: 07-27-2021 End: 05-11-2022 History SDOH Physical Activity DPW 5 [facility] Start: 07-27-2021 History SDOH Financial 4 [facility] Start: 1989 Sex Assigned At Female [facility] Start: 07-17-2021 End: 03-10-2022 Exposure to SARS-CoV-2 (event) Not sure [facility] Start: 11-22-2021 End: 12-02-2021 Exposure to SARS-CoV-2 (event) Unable to assess [facility] Start: 05-11-2022 History SDOH Alcohol Std Drinks 0 [facility] Start: 05-11-2022 History SDOH Physica l Activity DPW 7 [facility] Start: 09-20-2022 End: 05-13-2023 Tobacco smoking status NHIS Unknown if ever smoked [facility] Start: 07-19-2019 None [facility] Start: 09-18-2019 Non-smoker [facility] Start: 05-10-2022 End: 09-23-2022 History of Social function [facility] Start: 05-10-2022 End: 09-23-2022 Social connection and isolation panel [facility] Do you belong to any clubs or organizations such as jain groups, unions, fraternal or athletic groups, or school groups? Yes [facility] Are you now , , , , never or living with a partner? [facility] How often to you hav e a drink containing alcohol? Never [facility] Start: 04-09-2012 How many standard drinks containing alcohol do you have on a typical day? Patient does not drink [facility] How hard is it for y ou to pay for the very basics like food, housing, medical care, and heating Somewhat hard [facility] Do you feel stress - tense, restless, nervous, or anxious, or unable to sleep at night because your mind is troubled all the time - these days [OSQ] Only a little [facility] (I/We) worried travis er (my/our) food would run out before (I/we) got money to buy more. Never true [facility] In the past 12 month s, was there a time when you were not able to pay the mortgage or rent on time? No [facility] Start: 08-07-2020 Gender identity Identifies as female gender (finding) [facility] Start: 08-07-2020 Sexual orientation Heterosexual (sameer medley) [facility] Do you feel stress - tense, restless, nervous, or anxious, or unable to sleep at night because your mind is troubled all the time - these days [OSQ] Very much [facility] NEGATED: Highlighted row [facility] Functional Status Date Assessment Result Facility 07-09-2021 Are you deaf, or do you have serious difficulty hearing No 07/09/2021 2:38 PM Dolly Perla RN No [facility] 07-09-2021 Are you blind, or do you have serious difficulty seeing, even when wearing glasses No 07/09/2021 2:38 PM Dolly Perla RN No [facility] 07-09-2021 Do you have serious difficulty walking or climbing stairs No 07/09/2021 2:38 PM Dolly Perla RN No [facility] 07-09-2021 Do you have difficul ty dressing or bathing No 07/09/2021 2:38 PM Dolly Perla RN No [facility] 07-09-2021 Because of a physica l, mental, or emotional condition, do you have difficulty doing errands alone such as visiting a physician's office or shopping No 07/09/2021 2:38 PM Dolly Perla RN No [facility] Mental Status Date Assessment Result Facility 09-20-2022 Cognitive function Level Of Cons ciousness Awake;Alert;Appropriate;Fol lows Commands [facility] Work Phone: 07-09-2021 Because of a physica l, mental, or emotional condition, do you have serious difficulty concentrating, remembering, or making decisions No 07/09/2021 2:38 PM Dolly Perla RN [facility] Clinical Notes 01-01-2016 to 03-01-2025 Manuela Isbell MD - 01/17/2025 10:40 AM EDTPatient InstructionsPatient InstructionsStef Luis RD - 12/31/2024 9:30 AM EDTTelephone Encounter - Heidi Horowitz - 12/04/2024 3:26 PM EDT Note Date & Type Note Facility 03-01-2025 Note HNO ID: [id number] Author: CHRISTEL POSEY RDMS Service: ? Author Type: Metal Burnisher Type: Progress Notes Filed: 03/01/2025 10:30 Note [...] PATIENT PRESENTS WITH AN IMPLANTABLE OR ATTACHED PROTECTIVE OFFICER: No RADIOLOGY DEPARTMENT: Ultrasound PERIPHERAL IV DATA: Not applicable SIGNED BY: Christel Posey RDMS RVT March 01, 2025 10:30 AM [facility] 01-17-2025 History of Presen t illness Narrative [...] lb) 413 lbs Lowest weight 192 lbs [place] weight: 72.4 kg (159 lb 11 oz) [...] with avocado, meat and cheese. At noon: samoan yogurt with berries , beef jerky No [...] Sig Blood-Glucose Meter,Continuous (FREESTYLE CONNIE 3 READER) [facility] Use to check blood sugar at least four (4) times daily. Blood-Glucose Sensor (FREESTYLE CONNIE 3 PLUS SENSOR) [place] Apply new sensor every fifteen (15) days to upper arm. acarbose (PRECOSE) 25 mg tablet Take 2 tablets by mouth three times a day. glucagon 3 mg/actuation nasal spray (BAQSIMI) Use 1 [place] in the nose as needed for low [...] of 60.0 to 69.9 in adult ([facility]) 10/07/2009 Esophagitis, unspecified High grade squamous [...] today. Manuela Isbell MD Endocrinology and Metabolism [facility] Answers submitted by the patient for this [...] which included preparing to see the patient, [id number] patient care, completing clinical documentation, obtaining and/or [...] Drug use: No documented in this encounter [facility] 01-17-2025 Note HNO ID: [id number] Author: MANUELA ISBELL MD Service: ? Author [...] lb) 413 lbs Lowest weight 192 lbs [place] weight: 72.4 kg (159 lb 11 oz) [...] with avocado, meat and cheese. At noon: samoan yogurt with berries , beef jerky No [...] Sig Blood-Glucose Meter,Continuous (FREESTYLE CONNIE 3 READER) [facility] Use to check blood sugar at least four (4) times daily. Blood-Glucose Sensor (FREESTYLE CONNIE 3 PLUS SENSOR) allison Apply new sensor every fifteen (15) days to upper arm. acarbose (PRECOSE) 25 mg tablet Take 2 tablets by mouth three times a day. glucagon 3 mg/actuation nasal spray (BAQSIMI) Use 1 [place] in the nose as needed for low [...] liver Kidney Diseas (more content not included)... [facility] 01-17-2025 Instructions Aniya Woo MA - 01/17/2025 10:05 AM EDT Thank you for choosing the [facility] Department of Endocrinology, Diabetes and Metabolism. Did you know that you need to call 48 hours in advance of your scheduled visit, if you are unable to make your appointment? [facility] thanks you for your commitment, because patients not showing to their appointment results in a lost opportunity for patients to receive [facility] health care at the [facility]. To Cancel an appointment, please choose one of the following: - Call the Appointment Call Center at [phone] - From [employer] Go to Appointments - Cancel Appts If cancelling, consider your need to reschedule to prevent further delays in your care. To Schedule an appointment, please choose one of the following: - Call the Appointment Call Center at [phone] - From [employer] Go to Appointments - Request an Appt documented in this encounter [facility] 12-31-[address] - 12/31/2024 [...] mcg, Iron 45 mg and calcium citrate 4920-5654 mg/day- current regimen meets recommendations 5. Exercise: [...] and snacks with an marlin; aim for ~1499-4773 calories per day; aim for ~50-75 gm cho per day 8. Continue to choose foods that fit the diet plan and do not trigger symptoms; identify optimal amount of fiber each day Follow Up on 04/01 at 9:30 AM documented in this encounter [facility] 12-31-2024 History of Presen t illness Narrative The [facility] Nutrition Therapy: Virtual Consult - Re-assessment I have communicated my name and active licensure. The patient s identity and physical location were verified at the time of this visit. Either the patient or their legal auto service representative has been informed of the risks [...] mcg, Iron 45 mg and calcium citrate 5292-6718 mg/day- current regimen meets recommendations 5. Exercise: [...] and snacks with an marlin; aim for ~2807-9952 calories per day; aim for ~50-75 gm [...] Rate: 1733 Energy needs for weight loss: 8432-9999 calories per day (10-15 kcal/kg CBW) Protein [...] mcg, Iron 45 mg and calcium citrate 0606-2502 mg/day MET -continue current regimen, and add [...] and snacks with an marlin; aim for 4765-8937 calories per day IN PROGRESS 8. Continue to work with your medical team to identify sources of low blood sugars and manage stressors MET Actions to implement interventions: see assessment Diet History: Breakfast - oikos samoan yogurt (15 gm pro) OR 2 eggs [...] pro) Alcohol - none Vitamins/Supplements - creatine, 36034 international unit(s) vitamin A, 4000 international unit(s) [...] Last Ht 12/31/24 : 167.6 cm (5' 6) Current weight: Last Wt 12/31/24 : 102.1 [...] TIME: 10:27 AM documented in this encounter [facility] 12-31-2024 Note HNO ID: [id number] Author: STEF LUIS RD Service: ? Author Type: Registered Dietitian Type: Progress Notes Filed: 12/31/2024 10:29 Note Text: [facility] Nutrition Therapy: Virtual Consult - Re-assessment I have communicated my name and active licensure. The patient?s identity and physical location were verified at the time of this visit. Either the patient or their legal auto service representative has been informed of the risks [...] mcg, Iron 45 mg and calcium citrate 8406-6147 mg/day- current regimen meets recommendations 5. Exercise: [...] and snacks with an marlin; aim for ~2750-3912 calories per day; aim for ~50-75 gm [...] Rate: 1733 Energy needs for weight loss: 0659-7167 calories per day (10-15 kcal/kg CBW) Protein needs: 85 grams protein per day (1.2 g/kg IBW) Nutrition Intervention A Toby 11/05/24 1. Protein: Continue to strive for [...] mcg, Iron 45 mg and calcium citrate 9790-7804 mg/day MET -continue current regimen, and add [...] and snacks with an marlin; aim for 1651-2148 calories per day IN PROGRESS 8. Continue to work with your medical team to identify sources of low blood sugars and manage stressors MET Actions to implement interventions: see assessment Diet History: Breakfast - oikos samoan yogurt (15 gm pro) OR 2 eggs (14 gm pro) OR jocko protein powder (22 gm pro) mixed with 1 c fairlife milk (13 gm pro) (more content not included)... [facility] 12-04-2024 Telephone encounter Note Lvm for pt stating that Dr. Isbell will be out of office on 12/20/24 and that we need to reschedule her appointment. Rescheduled appointment to 01/17/25 at 10:40am. Will send mychart message. [facility] 12-04-2024 Miscellaneous Notes Lvm for pt stating that Dr. Isbell will be out of office on 12/20/24 and that we need to reschedule her appointment. Rescheduled appointment to 01/17/25 at 10:40am. Will send mychart message. documented in this encounter [facility] 11-09-2024 Radiology Diagnostic study note [facility] Imaging Services [address] [place] [address] [id number] Abdomen/Pelvis W IV Cont ONLY MR#: [id number] Acct: [id number] Name: MARY JUNIOR RICARDO Rep #: [id number] : 1990 F 34 From: Guerda Bai MD PCP: Dr. Asif Haque MD Status: REG E R Study:Abdomen/Pelvis W IV Cont ONLY Date of E xam: 11/09/24 Exam# [id number] Ordering Dr: Zan Pascal DO PROCEDURE: ABDOMEN/PELVIS [...] or air. Normal appendix visualized Reading Location: [id number] CC: Dr. Zan Pascal DO; Dr. Asif Haque MD ~ Chronic Condition Nurse: Signed [facility] 11-07-2024 Telephone encounter Note Most recent Endocrinology visit: Last encounter Visit on 08/09/2024 (with Manuela Alkhaled) 08/[facility]2023 [facility] BENDDONITA MURILLO for Thyroid nodule 02/14/2024 in [facility] [place] with BENDARAM, DONITA HICKS for Collin's thyroiditis 07/04/2024 in [facility] with ALKHALED, MANUELA for Hypoglycemia after GI (gastrointestinal) surgery (HCC) 08/09/2024 [facility] with SUKHI MANUELA for Class 2 severe obesity with serious comorbidity and body mass index (BMI) of 35.0 to 35.9 in adult, unspecified obesity type (HCC) Upcoming Endocrinology Appointments - Next 365 Days Visit Type Date Time Department EST JONAH PATIENT 12/20/2024 11:20 AM [facility] EST [facility]ONAH PATIENT 01/14/2025 9:20 AM [facility] Requested Prescriptions Pending Prescriptions Disp Refills [...] on file in the last 12 months [facility] 11-07-2024 Miscellaneous Notes Most recent Endocrinology visit: Last encounter Visit on 08/09/2024 (with Manuela Alkhaled) 08/15/2023 in [facility] [place] with BENDARAMSNDONITA HICKS for Thyroid nodule 02/14/2024 in [facility] [place] with BENDARAM, DONITA HICKS for [...] MAIN EST [facility]ONAH PATIENT 01/14[facility] Requested Prescriptions Pending Prescriptions Disp Refills DEXCOM [...] last 12 months documented in this encounter [facility] 11-07-2024 Radiology Diagnostic study note [facility] Imaging Services [address] [place] [address] [id number] Abdomen/Pelvis W IV Cont ONLY MR#: [id number] Acct: [id number] Name: MARY JUNIOR Rep #: [id number] : 1990 F 34 From: Dianne Hurst MD PCP: Dr. Asif Haque MD Status: REG E R Study:Abdomen/Pelvis W IV Cont ONLY Date of E xam: 11/07/24 Exam# [id number] Ordering Dr: Nery Ortiz DO PROCEDURE: ABDOMEN/PELVIS [...] ONLY IMPRESSION: No acute findings. [facility]: Dr. Asif Haque MD; Nadir Ortiz DO ~ Chronic Condition Nurse: Signed [facility] 11-05-[address] [...] mcg, Iron 45 mg and calcium citrate 7872-7370 mg/day -continue current regimen, and add in [...] and snacks with an marlin; aim for 6127-1639 calories per day 8. Continue to work with your medical team to identify sources of low blood sugars and manage stressors Follow Up on 12/31 at 9:30 AM documented in this encounter [facility] 11-05-2024 History of Presen t illness Narrative [facility] Nutrition Therapy: Virtual Consult - Re-assessment I have communicated my name and active licensure. The patient s identity and physical location were verified at the time of this visit. Either the patient or their legal auto service representative has been informed of the risks [...] mcg, Iron 45 mg and calcium citrate 4967-9969 mg/day -continue current regimen, and add in [...] and snacks with an marlin; aim for 4032-2385 calories per day 8. Continue to work [...] from foods as recommended. PA meets recommendations. ~3109-9828 calories/day excessive ~50 gm carbohydrates per day likely inadequate >120 gm protein intake/day Meets recommendations >100 oz fluid intake/day Meets recommendations Takes most recommended vitamin/minerals inadequate in some trace minerals Labs reveal normal hbA1c Resting Metabolic Rate: 1733 Energy needs for weight loss: 5836-7124 calories per day (10-15 kcal/kg CBW) Protein [...] and snacks with an marlin; aim for 9572-3591 calories per day IN PROGRESS Actions to implement interventions: see assessment Diet History: Breakfast - 2 egg whites and 1 egg (17 gm pro per patient) and sometimes 1 cheese stick Snack - samoan yogurt (15 gm pro) Lunch - jocko [...] oz water Alcohol - none Vitamins/Supplements - 63949 international unit(s) vitamin A, 4000 international unit(s) [...] Luis RD PATIENT NAME: Mary Junior DATE: November 05, 2024 TIME: 11:21 PM documented in this encounter [facility] 11-05-2024 Note HNO ID: [id number] Author: STEF LUIS RD Service: ? Author Type: Registered Dietitian Type: Progress Notes Filed: 11/05/2024 11:24 Note Text: [facility] Nutrition Therapy: Virtual Consult - Re-assessment I have communicated my name and active licensure. The patient?s identity and physical location were verified at the time of this visit. Either the patient or their legal auto service representative has been informed of the risks [...] mcg, Iron 45 mg and calcium citrate 6706-5647 mg/day -continue current regimen, and add in [...] and snacks with an marlin; aim for 3611-2626 calories per day 8. Continue to work [...] from foods as recommended. PA meets recommendations. ~5617-2772 calories/day excessive ~50 gm carbohydrates per day likely inadequate >120 gm protein intake/day Meets recommendations >100 oz fluid intake/day Meets recommendations Takes most recommended vitamin/minerals inadequate in some trace minerals Labs reveal normal hbA1c Resting Metabolic Rate: 1733 Energy needs for weight loss: 4710-1682 calories per day (10-15 kcal/kg CBW) Protein needs: 85 grams protein per day (1.2 g/kg IBW) Nutrition Intervention A Toby 07/13/24 1. Protein: Continue to strive for [...] eating and drinking (more content not included)... [facility] 10-29-2024 Telephone encounter Note ANNIKA 08/09/24 12/20/24 [facility] 10-29-2024 Miscellaneous Notes ANNIKA 08/09/24 12/20/24 documented in this encounter [facility] 09-21-2024 Evaluation note Diagnosis Onset Date Resolution Herpes zoster acute September 21, 2 025 6:10am [facility] Work Phone: [phone]) 676-728304-03-2025 NoteHNO ID: [id number] Author: INGA FERGUSON MA Service: ? Author Type: Applications Developer Type: Procedures Filed: 08/09/2024 16:17 Note Text:[facility]04-03-2025 Procedure note* Inga Ferguson MA - 08/09/2024 10:01 AM EDTProcedure(s): EXTERNAL TRUCKMAN, CGM SYS Images from the original note were not included. [facility]04-03-2025 Procedure note* Inga Ferguson MA - 08/09/2024 10:01 AM EDTProcedure(s): EXTERNAL TRUCKMAN, CGM SYS Images from the original note were not included. [facility] History of Present illness Narrative* Manuela Isbell [...] lb) 413 lbs Lowest weight 192 lbs [place] weight: 72.4 kg (159 lb 11 oz) [...] turkey deli meat and cheese. At noon: samoan yogurt with berries , beef jerky No [...] Visit Medication Sig Blood-Glucose Meter,Continuous (DEXCOM G7 TRUCKMAN) misc 1 Each as directed. Blood-Glucose Sensor (DEXCOM G7 SENSOR) allison 1 Each every 10 days. glucagon 3 mg/actuation nasal spray (BAQSIMI) Use 1 [place] in the nose as needed for low [...] of 60.0 to 69.9 in adult ([facility]) 10/07/2009 Esophagitis, unspecified High grade squamous [...] 35.9 in adult, unspecified obesity type ([facility]) E66.812 HEMOGLOBIN A1C (POC) E66.01 acarbose (PRECOSE) 25 mg tablet Z68.35 HOME BLOOD GLUCOSE MONITOR 2. Hypoglycemia after GI (gastrointestinal) surgery ([facility]) K91.2 acarbose (PRECOSE) 25 mg tablet HOME [...] today. Manuela Isbell MD [facility] Weight Management/Obesity Programs [facility] I spent a total of 60 minutes on the date of the service which included preparing to see the patient, [id number] patient care, completing clinical documentation, obtaining and/or reviewing separately obtained history, performing a medically appropriate examination, counseling and educating the pat ient/family/caregiver, and ordering medications, tests, or procedures. [facility]25 NoteHNO ID: [id number] Author: MANUELA ISBELL MD Service: ? Author [...] lb) 413 lbs Lowest weight 192 lbs [place] weight: 72.4 kg (159 lb 11 oz) [...] turkey deli meat and cheese. At noon: samoan yogurt with berries , beef jerky No [...] Visit Medication Sig Blood-Glucose Meter,Continuous (DEXCOM G7 TRUCKMAN) misc 1 Each as directed. Blood-Glucose Sensor (DEXCOM G7 SENSOR) allison 1 Each every 10 days. glucagon 3 mg/actuation nasal spray (BAQSIMI) Use 1 [place] in the nose as needed for low [...] of 60.0 to 69.9 in adult ([facility]) 10/07/2009 Esophagitis, unspecified High grade squamous [...] Vital Signs BP 127/79 (more content not included)...[facility]04-03-2025 Instructions* Patient Instructions* Manuela Isbell MD - 08/09/2024 9:52 AM EDT Thank you for choosing the [facility] Department of Endocrinology, Diabetes and Metabolism. Did you know that you need to call 48 hours in advance of your scheduled visit, if you are unable to make your appointment? [facility] thanks you for your commitment, because patients not showing to their appointment results in a lost opportunity for patients to receive [facility] health care at the [facility]. To Cancel an appointment, please choose one of the following: - Call the Appointment Call Center at [phone] - From [employer] Go to Appointments - Cancel Appts If cancelling, consider your need to reschedule to prevent further delays in your care. To Schedule an appointment, please choose one of the following: - Call the Appointment Call Center at [phone] - From [employer] Go to Appointments - Request an Appt [...] Index Carbohydrates (AVOID) Refined breakfast cereals (e.g., [place] Flakes, Rice Krispies, Cream of Rice, instant oatmeal) Regular pasta Most starchy vegetables (e.g., white potatoes, corn, winter (orange) squash) White rice, rice cakes Popcorn, pretzels, chips Some fruits (e.g., ripe bananas, pineapple, yael, watermelon, grapes) All fruit juices and sweetened drinks (e.g., sodas, sweetened iced tea) Bread, rolls, bagels, Cuban muffins, and crackers made with refined flour Sweets (e.g., candy, cake, cookies, ice cream, syrup) Heart-Healthy Fats Nuts, nut butters Avocado, guacamole Olives Most plant oils (e.g., olive, canola, peanut, soy, sunflower, sesame) Most seeds (e.g., sunflower, flax, sesame/sesame tahini) Oily fish (e.g., salmon, bluefish, mackerel, tuna, sardines) [facility] Instructions* Patient Instructions* Stef Luis RD - [...] and snacks with an marlin; aim for 6401-0253 calories per day Folow Up on 10/12 at 1:30 PM documented in this [facility] History of Present illness Narrative* tSef Luis RD - 07/13/2024 1:30 PM EST [facility] Nutrition Therapy: Virtual Consult - Re-assessment I have communicated my name and active licensure. The patient s identity and physical location wereverified at the time of this visit. Either the patient or their legal auto service representative has been informed of the risks [...] and snacks with an marlin; aim for 2493-3414 calories per day Nutrition Monitoring & Evaluation: [...] Rate: 1713 Energy needs for weight loss: 3815-3791 calories per day (15-20 kcal/kg CBW) Protein [...] mcg, Iron 45 mg and calcium citrate 0246-3818 mg/day . It is okay to usecombination [...] and snacks with an marlin; aim for 9341-5912 calories per day MET Actions to implement interventions: see assessment Diet History: Breakfast - jocko protein powder (22 gm pro) mixed with 10 oz unsweetened coconut milk and egg bakewith peppers and sausage (13 gm pro) Snack - none OR 1/2 apple with PB (6 gm pro) OR samoan yogurt (15 gm pro) Lunch - 3 oz lean meat (21 gm pro), vegetables Snack - none Dinner - 3-4 lean meat (21-28 gm pro), vegetables Snack - none Beverages - ~1 gallon water Alcohol - none Vitamins/Supplements - 70531 international unit(s) vitamin A, 4000 international unit(s) [...] 2024 TIME: 2:07 PM documented in [facility]25 NoteHNO ID: [id number] Author: STEF LUIS RD Service: ? Author Type: Registered Dietitian Type: Progress Notes Filed: 07/13/2024 14:08 Note Text: [facility] Nutrition Therapy: Virtual Consult - Re-assessment I have communicated my name and active licensure. The patient?s identity and physical location were verified at the time of this visit. Either the patient or their legal auto service representative has been informed of the risks [...] and snacks with an marlin; aim for 7059-9466 calories per day Nutrition Monitoring AND Evaluation: BMI <30 Need for Follow up: 3 months as scheduled PROGRESS: 3 years post op RYGB (Shea Hamlin weight loss 163 lbs (380 lbs initial) [...] Rate: 1713 Energy needs for weight loss: 7895-8379 calories per day (15-20 kcal/kg CBW) Protein [...] mcg, Iron 45 mg and calcium citrate 4397-8461 mg/day . It is okay to use [...] and snacks with an marlin; aim for 3834-0987 calories per day MET Actions to implement interventions: see assessment Diet History: Breakfast - jocko protein powder (22 gm pro) mixed with 10 oz unsweetened coconut milk and egg bake with peppers and sausage ( (more content not included)...[facility]03-03[facility]25 Telephone encounter Note* Telephone Encounter - Kimberley Ledesma - 07/09/2024 9:33 AM EST Called patient and left voicemail to notify of scheduled appointment [facility]03-03-2025 Miscellaneous Notes* Telephone Encounter - Kimberley Ledesma - 07/09/2024 9:33 AM EST Called patient and left voicemail to notify of scheduled appointment documented [facility] Instructions* Patient Instructions* Manuela Isbell MD - [...] Index Carbohydrates (AVOID) Refined breakfast cereals (e.g., [place] Flakes, Rice Krispies, Cream of Rice, instant oatmeal) Regular pasta Most starchy vegetables (e.g., white potatoes, corn, winter (orange) squash) White rice, rice cakes Popcorn, pretzels, chips Some fruits (e.g., ripe bananas, pineapple, yael, watermelon, grapes) All fruit juices and sweetened drinks (e.g., sodas, sweetened iced tea) Bread, rolls, bagels, Cuban muffins, and crackers made with refined flour Sweets (e.g., candy, cake, cookies, ice cream, syrup) Heart-Healthy Fats Nuts, nut butters Avocado, guacamole Olives Most plant oils (e.g., olive, canola, peanut, soy, sunflower, sesame) Most seeds (e.g., sunflower, flax, sesame/sesame tahini) Oily fish (e.g., salmon, bluefish, mackerel, tuna, sardines) documented in this encounter[facility]02-[facility]-2025 NoteHNO ID: [id number] Author: MANUELA ISBELL MD Service: ? Author Type: Physician Type: Progress Notes Filed: 07/04/2024 16:42 Note Text: BMI OM PostOp Virtual Visit July 04, 2024 I have communicated my name and active licensure. The patient's identity and physical location were verified at the time of this visit. Either the patient or their legal auto service representative has been informed of the risks and benefits of -- and alternatives to -- treatment through a remote evaluation and consents to proceed with the evaluation remotely. Index Surgery Date of Surgery: 07/07/2021 Surgeon: Phyllis Suresh MD Surgical Procedure: LAPAROSCOPIC GASTRIC RESTRICTIVE SURG W/ BYPASS AND FRANCISCA-EN-Y 150CM OR LESS Pre-surgical weight: 156.5 kg (345 lb) 413 lbs Lowest weight 192 lbs [place] weight: 72.4 kg (159 lb 11 oz) [...] new onset post operativ (more content not included)...[facility] History of Present illness Narrative* Manuela Isbell MD - 07/04/2024 3:17 PM EST BMI OM PostOp Virtual Visit July 04, 2024 I have communicated my name and active licensure. The patient's identity and physical location wereverified at the time of this visit. Either the patient or their legal auto service representative has been informed of the risks and benefits of -- and alternatives to -- treatment through a remote evaluation andconsents to proceed with the evaluation remotely. Index Surgery Date of Surgery: 07/07/2021 Surgeon: Phyllis Suresh MD Surgical Procedure: LAPAROSCOPIC GASTRIC RESTRICTIVE SURG W/ BYPASS & FRANCISCA-EN-Y 150CM OR LESS Pre-surgical weight: 156.5 kg (345 lb) 413 lbs Lowest weight 192 lbs [place] weight: 72.4 kg (159 lb 11 oz) [...] List Severe obesity (BMI >= 40) ([facility]) GERD (gastroesophageal reflux disease) Iron deficiency Morbid obesity ([facility]) Calculus of gallbladder without cholecystitis without obstruction Incidental lung nodule, > 3mm and < 8mm Panic disorder Spotting in History of loop electrosurgical excision procedure (LEEP) of cervix affecting History of labor History of depression History of depression Family history of cystic fibrosis Class 3 severe obesity without serious comorbidity with body mass index (BMI) of 60.0 to 69.9 in adult ([facility]) Resolved Hospital Problems No resolved problems to [...] -- Follow up in 1 month at [facility] to review BG I spent a total of 76 minutes on the date of the service which included preparing to see the patient, [id number] patient care, completing clinical documentation, obtaining and/or reviewing separately obtained history, performing a medically appropriate examination, counseling and educating the pat ient/family/caregiver, and ordering medications, tests, or procedures. Manuela Isbell MD documented in this encounter[facility]01[facility] History of Present illness Narrative* Ping Ansari, SUPERINTENDENT [employer]OR[employer].BLOOD BANK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 - 05/29/2024 1:00 PM EST BMI Obesity Medicine FollowUp Note Distance Health Visit May 29, 2024 I have communicated my name and active licensure. The patient's identity and physical location wereverified at the time of this visit. Either the patient or their legal auto service representative has been informed of the risks and benefits of -- and alternatives to -- treatment through a remote evaluation andconsents to proceed with the evaluation remotely. Patient Summary: Mary Junior is 34 year old Female who presents virtually for follow-up evaluation of her obesity and related complications to the [facility] [place]. In our previous visits we have outlined [...] BYPASS HX 07/07/2021 [facility] Main LEEP PROCEDURE ([facility] DE[facility] 12/2015 REMOVAL GALLBLADDER TONSILLECTOMY PRIMARY/SECONDARY <AGE [...] this. She has continued follow up with [facility] endocrine specialist as well. Plan: -- refer out for possible reactive hypoglycemia -- Continue f/u with BMI RD -- Hold phentermine -- Continue to check routine RYGB labs I spent a total of 35 minutes on the date of the service which included preparing to see the patient, kyvn-sb-tyyl patient care, completing clinical documentation, obtaining and/or reviewing separately obtained history, performing a medically appropriate examination, and counseling and educating the patient/family/caregiver. Ping Ansari APRN.RENEE documented in this encounterSouthern [facility] Center01-21-2025 NoteHNO ID: [id number] Author: PING ANSARI APRN.CNP Service: ? Author Type: Nurse Practitioner Type: Progress Notes Filed: 06/05/2024 17:38 Note Text: BMI Obesity Medicine FollowUp Note Distance [facility] Visit May 29, 2024 I have communicated my name and active licensure. The patient's identity and physical location were verified at the time of this visit. Either the patient or their legal auto service representative has been informed of the risks and benefits of -- and alternatives to -- treatment through a remote evaluation and consents to proceed with the evaluation remotely. Patient Summary: Mary Junior is 34 year old Female who presents virtually for follow-up evaluation of her obesity and related complications to the [facility] [place]. In our previous visits we have outlined [...] of 60.0 to 69.9 in adult (FORM[facility]LY [facility]) 10/07/2009 Esophagitis, unspecified High grade squamous intraepithelial lesion of cervix 01/01/2016 Iron deficiency 02/06/2021 Neck mass fatty deposit depression PAST SURGICAL HISTORY Procedure Laterality Date ESOPHAGOGASTRODUODENOSCOPY TRANSORAL DIAGNOSTIC 03/10/2012 EGD repeat 1 year FOOT SURGERY HX 2013 GASTRIC BYPASS HX 07/07/2021 [facility] LEEP PROCEDURE ([facility] DE[facility] 12/2015 REMOVAL GALLBLADDER TONSILLECTOMY PRIMARY/SECONDARY VAGINAL [...] this. She has continued follow up with [facility] endocrine specialist as well. Plan: -- refer out for possible reactive hypoglycemia -- Continue f/u with BMI RD -- Hold phentermine -- Continue to check routine RYGB labs I spent a total of 35 minutes on the date of the service which included preparing to see the patient, tbxl-wx-flch patient care, completing c (more content not included)...[facility]12-02-2024 Instructions* Patient Instructions* Stef Luis, RD - [...] mcg, Iron 45 mg and calcium citrate 3591-0393 mg/day . It is okay to usecombination [...] and snacks with an marlin; aim for 6544-9578 calories per day Follow Up on 07/09/24 at 1 PM documented in this encounterSouthern [facility]12-02-2024 History of Present illness Narrative* Stef Luis RD - 04/09/2024 1:00 PM EST [facility] Nutrition Therapy: Virtual Consult - Re-assessment I have communicated my name and active licensure. The patient s identity and physical location wereverified at the time of this visit. Either the patient or their legal auto service representative has been informed of the risks [...] mcg, Iron 45 mg and calcium citrate 9816-4815 mg/day . It is okay to usecombination [...] and snacks with an marlin; aim for 7292-4090 calories per day Nutrition Monitoring & Evaluation: [...] Rate: 1678 Energy needs for weight loss: 0778-7899 calories per day (15-20 kcal/kg CBW) Protein [...] mcg, Iron 45 mg and calcium citrate 3892-3555 mg/day . It is okay to usecombination [...] and snacks with an marlin; aim for 0691-2201 calories per day IN PROGRESS Actions to implement interventions: see assessment Diet History: Patient follows an intermittent fasting plan from 10 AM to 6 PM Breakfast - Goomzee core power protein shake (26 OR 42 gm pro) Snack - none Lunch - fairPerficient core power protein shake (26 OR 42 gm pro) Snack - none Dinner -3-4 oz lean meat (21-28 gm pro) and vegetables Snack - none Beverages - 1 gallon water Alcohol - none Vitamins/Supplements - creatine, 65026 international unit(s) vitamin A, 2000 international unit(s) [...] 2024 TIME: 2:18 PM documented in this encounterSouthern [facility] Center12-02-2024 NoteHNO ID: [id number] Author: STEF LUIS RD Service: ? Author Type: Registered Dietitian Type: Progress Notes Filed: 04/09/2024 14:20 Note Text: [facility] Nutrition Therapy: Virtual Consult - Re-assessment I have communicated my name and active licensure. The patient?s identity and physical location were verified at the time of this visit. Either the patient or their legal auto service representative has been informed of the risks [...] mcg, Iron 45 mg and calcium citrate 5474-0799 mg/day . It is okay to use [...] and snacks with an marlin; aim for 8748-3911 calories per day Nutrition Monitoring AND Evaluation: [...] Rate: 1678 Energy needs for weight loss: 9465-4631 calories per day (15-20 kcal/kg CBW) Protein [...] mcg, Iron 45 mg and calcium citrate 3095-8296 mg/day . It is okay to use [...] and snacks with an marlin; aim for 3708-0961 calories per day IN PROGRESS Actions to implement interventions: see assessment Diet History: Patient follows an intermittent fasting plan from 10 AM to 6 PM Breakfast - fairlife core power protein shake (26 OR 42 gm pro) Snack - none Lunch - fairlife (more content not included)...[facility] 03-06-2024 History of Present illness Narrative* Ike Carmichael APRN.BLOOD BANK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 - 03/06/2024 7:40 AM EDT Subjective HPI [...] BYPASS HX 07/07/2021 [facility] LEEP PROCEDURE ([facility] 12[place]2015 REMOVAL GALLBLADDER TONSILLECTOMY PRIMARY/SECONDARY <AGE [...] MG-POTASSIUM CLAVULANATE 125 MG TABLET Ike Carmichael APRN.BLOOD BANK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 documented in this encounterSouthern [facility] Center10-14-2024 History of Present illness Narrative* Ping Prince APRN.BLOOD BANK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 - 02/20/2024 6:49 AM EDT BMI Obesity Medicine FollowUp Note Distance Health Visit February 20, 2024 I have communicated my name and active licensure. The patient's identity and physical location wereverified at the time of this visit. Either the patient or their legal auto service representative has been informed of the risks and benefits of -- and alternatives to -- treatment through a remote evaluation andconsents to proceed with the evaluation remotely. Patient Summary: Mary Junior is 33 year old Female who presents virtually for follow-up evaluation of her obesity and related complications to the [facility] [place]. In our previous visits we have outlined [...] food choices. Recently metwith endocrinology who stated thyroiditis exacerbation. She will reach out to [facility] to discuss hu-menopausal symptoms and PCP regarding possibly starting anxiolytic pharmacotherapy. 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 Obesity Medications: Phentermine. [...] of 60.0 to 69.9 in adult ([facility]) 10/07/2009 Esophagitis, unspecified High grade squamous intraepithelial lesion of cervix 01/01/2016 Iron deficiency 02/06/2021 Neck mass fatty deposit depression PAST SURGICAL HISTORY Procedure Laterality Date ESOPHAGOGASTRODUODENOSCOPY TRANSORAL DIAGNOSTIC 03/10/2012 EGD repeat 1 year FOOT SURGERY HX 2013 GASTRIC BYPASS HX 07/07/2021 [facility] Main LEEP PROCEDURE ([facility] DE[facility] 12[place]2015 REMOVAL GALLBLADDER TONSILLECTOMY PRIMARY/SECONDARY <AGE [...] TBW loss thus far. Follow up with [facility] for possible testing. Follow up with PCP regarding possible anxiety medication. Plan: -- continue current lifestyle -- Continue Phentermine. -- return to clinic/virtually in 3 months I spent a total of 29 minutes on the date of the service which included preparing to see the patient, etbj-pv-igkw patient care, completing clinical documentation, obtaining and/or reviewing separately obtained history, performing a medically appropriate examination, counseling and educating the pat ient/family/caregiver, ordering medications, tests, or procedures, and independently interpreting results (not separately reported). Some documentation from previous visit of 10/20/23 was copied and pasted, documentation has been reviewed and edited as necessary for today's visit. Ping Prince APRN.BLOOD BANK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 If you were prescribed a medication today, [...] won't pursue an appeal. documented in this encounterSouthern [facility] Center10-08-2024 Instructions* Patient Instructions* Donita Green MD - 02/14/2024 9:39 AM EDT Please do thyroid ultrasound and lab test in 1 year from the last thyroid ultrasound (in 12/2024) and follow up after documented in this encounterSouthern [facility] Center10-08-2024 History of Present illness Narrative* Donita Green [...] BYPASS HX 07/07/2021 [facility] LEEP PROCEDURE ([facility] DE[facility] 12/2015 REMOVAL GALLBLADDER TONSILLECTOMY PRIMARY/SECONDARY <AGE [...] kg (215 lb) LMP 08/28/2020 (Exact Date) [id number]% BMI 33.67 kg/m Last 3 Encounter Wt [...] 2 points Echogenicity: Hypoechoic, 2 points Shape: Qmuek-rukz-aggd, 0 points Margin: Smooth, 0 points Echogenic foci: None, 0 points TI-RADS Category: 4 ACR Recommendation: No FNA or follow-up imaging is advised. Nodule #2 Location: Right lower pole Size: 1.4 x 1.1 x 1 cm ; similar to the prior. Characteristics: Composition: Solid or almost completely solid, 2 points Echogenicity: Hypoechoic, 2 points Shape: Jrdbz-ecwx-kvze, 0 points Margin: Smooth, 0 points Echogenic [...] Moderate Donita Green MD Endocrinology Associate Staff [facility] Endocrinology and Metabolism [place] [phone] documented in this encounterSouthern [facility] Center08-30-2024 Instructions* Patient Instructions* Stef Luis RD - [...] mcg, Iron 45 mg and calcium citrate 3792-0529 mg/day . It is okay to usecombination [...] and snacks with an marlin; aim for 1951-8835 calories per day Follow Up on 03/30 at 3 PM Call [phone] to follow up with Delia Prince documented in this encounterSouthern [facility] Center08-30-2024 History of Present illness Narrative* Stef Luis RD - 01/06/2024 3:00 PM EDT [facility] Nutrition Therapy: Virtual Consult - Re-assessment I have communicated my name and active licensure. The patient s identity and physical location wereverified at the time of this visit. Either the patient or their legal auto service representative has been informed of the risks [...] mcg, Iron 45 mg and calcium citrate 6972-4007 mg/day . It is okay to usecombination [...] and snacks with an marlin; aim for 5386-8130 calories per day Nutrition Monitoring & Evaluation: [...] physical activity with a variety of exercises. 7673-4410 calories/day meets recommendations 140 gm protein intake/day meets recommendations 1 gallon fluid intake/day meets recommendations Consistent with appropriate vitamin/minerals inadequate in vitamin D Labs reveal no new labs to review Resting Metabolic Rate: 1653 Energy needs for weight loss: 8544-6024 calories per day (15-20 kcal/kg CBW) Protein [...] Bariatric Fusion once daily capsule MVI OR Shoop once daily capsule MVI; INCLUDE 1502-3779 mg calcium citrate per day (such as 3 powdered calcium sticks mixed with water per day) IN PROGRESS -https://www.bariatricfusion.com/products/yqm-bov-ptn-spznwttfe-cewvbjfjujcr-ajz mqxf-dddh-vcnu -https://SocialF5/collections/bariatric-multivitamin/products/multivitamin -37eb-qbkr-lbljxft -https://SocialF5/collections/calcium-supplements/products/wsjbe-z-fpositj p-lifexiv-zefftwt-ca-xvf-pd-sticks 5. Exercise: strive for daily activity - [...] and snacks with an marlin; caloric goal= 7742-7974 per day; aim for 50-60% calories from [...] coffee Alcohol - none Vitamins/Supplements - creatine, 16662 international unit(s) vitamin A, 2000 international unit(s) [...] 01/06/2024 TIME: 3:31 PM documented in this encounterSouthern [facility] Center08-12-2024 History of Present illness Narrative* Christel Posey [...] PATIENT PRESENTS WITH AN IMPLANTABLE OR ATTACHED PROTECTIVE OFFICER: No RADIOLOGY DEPARTMENT: Ultrasound PERIPHERAL IV DATA: Not applicable SIGNED BY: Christel Posey RDMS RVT December 19, 2023 10:45 AM documented in this [facility]07-15-2024 Instructions* Patient Instructions* Kiera Bragg APRN.CNP - [...] needed only for migraine 4) Video or ryuu-me-tlgf in 2 weeks documented in this [facility]07-15-2024 History of Present illness Narrative* Kiera Bragg [...] BYPASS HX 07/07/2021 [facility] LEEP PROCEDURE ([facility] DEPT[place] 12/2015 REMOVAL GALLBLADDER TONSILLECTOMY PRIMARY/SECONDARY <AGE [...] improvement. Kiera Bragg APRN.CNP documented in this encounterSouthern [facility] Center06-13-2024 History of Present illness Narrative* Ping Prince APRN.CNP - 10/20/2023 11:30 AM EDT BMI Obesity Medicine FollowUp Note [facility] Health Visit October 20, 2023 I have communicated my name and active licensure. The patient's identity and physical location wereverified at the time of this visit. Either the patient or their legal auto service representative has been informed of the risks and benefits of -- and alternatives to -- treatment through a remote evaluation andconsents to proceed with the evaluation remotely. Patient Summary: Mary Junior is 33 year old Female who presents virtually for follow-up evaluation of her obesity and related complications to the [facility] [place]. In our previous visits we have outlined [...] pertinent to this visit History reviewed in [facility] Allergies: Metoprolol Hives, Shortness of Breath Comment:heart [...] BYPASS HX 07/07/2021 [facility] LEEP PROCEDURE ([facility] MANA[facility] DEPT)_[place] 12[place]2015 REMOVAL GALLBLADDER TONSILLECTOMY PRIMARY/SECONDARY <AGE 11 VAGINAL HYSTERECTOMY 02/24/2021 Dr Connell Social Connections: Socially Integrated (05/10/2022) Social Connection and Isolation Panel [NHANES] Frequency of Communication with Friends and Family: More than three times a week Frequency of Social Gatherings with Friends and Family: Once a week Attends [employer]ism Services: More than 4 times per year [...] which included preparing to see the patient, qijz-vx-qqop patient care, completing clinical documentation, obtaining and/or reviewing separately obtained history, performing a medically appropriate examination, counseling and educating the pat ient/family/caregiver, ordering medications, tests, or procedures, and independently interpreting results (not separately reported). All documentation from previous visit of 07/14/23 was copied and pasted, documentation has been reviewed and edited as necessary for today's visit. Ping Prince APRN.BLOOD BANK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 documented in this encounterSouthern [facility] Medical Center05-31-2024 Instructions* Patient Instructions* Stef Luis RD - [...] Bariatric Fusion once daily capsule MVI OR Workstreamer health once daily capsule MVI; INCLUDE 8932-2428 mg calcium citrate per day (such as 3 powdered calcium sticks mixed with water per day) -https://www.bariatricfusion.com/products/bkv-dbw-apt-moljvogta-btdappsjrotz-kjf hesk-uonu-jpdk -https://SocialF5/collections/bariatric-multivitamin/products/multivitamin -00pt-nrzp-ldhpndp -https://SocialF5/collections/calcium-supplements/products/qzxqt-y-nskmyhb t-mtibbll-veugjvu-dc-ahs-hd-sticks 5. Exercise: strive for daily activity - [...] and snacks with an marlin; caloric goal= 7604-6766 per day; aim for 50-60% calories from carbs and 20-30% calories from fat Follow Up on 01/05 at 3 PM documented in this encounterSouthern [facility] Medical Center05-31-2024 History of Present illness Narrative* Stef Luis RD - 10/07/2023 3:00 PM EDT [facility] Nutrition Therapy: Virtual Consult - Re-assessment I have communicated my name and active licensure. The patient s identity and physical location wereverified at the time of this visit. Either the patient or their legal auto service representative has been informed of the risks [...] Bariatric Fusion once daily capsule MVI OR Workstreamer health once daily capsule MVI; INCLUDE 3253-4290 mg calcium citrate per day (such as 3 powdered calcium sticks mixed with water per day) -https://www.bariatricfusion.com/products/qsd-umd-yie-ymqujinhg-hzgfrrcrbfiy-wvp hbrs-bovv-izfg -https://SocialF5/collections/bariatric-multivitamin/products/multivitamin -41sm-vstr-eymqtfy -https://SocialF5/collections/calcium-supplements/products/wffrx-a-eebvgsm h-ewhvghr-rmftyza-xi-jql-qo-sticks 5. Exercise: strive for daily activity - [...] and snacks with an marlin; caloric goal= 6667-8819 per day; aim for 50-60% calories from [...] currently taking Phentermine under the supervision of Pnig Prince CNP. She denies any impact of [...] Rate: 1644 Energy needs for weight loss: 3077-4971 calories per day Protein needs: 85 grams [...] last 30 minutes. 7. Track meals with [employer] Marlin; aim for 8730-3197 calories per day MET Actions to implement interventions:see assessment Diet History: 1st Meal 10 AM: fairlife core power protein shake (26 gm pro) 1st Snack 12 PM: samoan yogurt (15-20 gm pro) 2nd Meal 1 PM: 4.5 oz chicken(32 gm pro) and vegetables 2nd Snack 3 PM: fairlife protein shake (26 gm pro) OR splyt protein shake (20 gm pro) 3rd Meal 6 PM: 4 oz lean meat (28 gm pro), salad, and vegetables Beverages - 1 gallon water, sometimes coffee Alcohol - none Vitamins/Supplements - 23851 international unit(s) vitamin A, 2000 international unit(s) [...] 10/07/2023 TIME: 3:32 AM documented in this encounterSouthern [facility] Medical Center04-08-2024 Instructions* Patient Instructions* Donita Green MD - 08/15/2023 10:51 AM EDT Labs at the earliest [place] Thyroid- December 2023 documented in this encounterSouthern Ohio Medical Center04-08-2024 History of Present illness Narrative* Donita Green [...] BYPASS HX 07/07/2021 [facility] LEEP PROCEDURE ([facility] DE[facility])_[place] 12/2015 REMOVAL GALLBLADDER TONSILLECTOMY PRIMARY/SECONDARY <AGE [...] Pulse 84 Resp17 Ht 170.2 cm (5' 7) Wt 91.6 [...] mIU/L Third Trimester: 0.480-4.710 mIU/L Luis F rAaya et al. A Practical Approach for the Verifications and Determination of Site- and Trimester-Specific Reference Intervals for Thyroid Function tests in . Thyroid, 2019:29:3:412-420.Yoan E, et al. 2017 Guidelines of the [place] Thyroid Association for the Diagnosis and Management [...] 2 points Echogenicity: Hypoechoic, 2 points Shape: Kgann-bmpk-rrvc, 0 points Margin: Smooth, 0 points Echogenic [...] 2 points Echogenicity: Hypoechoic, 2 points Shape: Ukjcp-xdip-idch, 0 points Margin: Smooth, 0 points Echogenic [...] Moderate Donita Green MD Endocrinology Associate Staff [facility] Endocrinology and Metabolism [place] [phone] documented in this encounterSouthern [facility] Center03-07-2024 History of Present illness Narrative* Ping Prince APRN.BLOOD BANK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 - 07/14/2023 11:00 AM EST Virtual Visit (Audio/Visual)I have discussed the nature of this visit with the patient which will occur via Distance Health (Phone, Virtual Visit) and she agrees to proceed with this interaction. I have communicated my name and active licensure. The patient's identity and physical location wereverified at the time of this visit. Either the patient or their legal auto service representative has been informed of the risks [...] Total weight loss: 60.3 kg (133 lb) [place] weight: 72.4 kg (159 lb 11 oz) [...] course Since ANNIKA patient has established with [facility] Endocrine team regarding new thyroid nodules (3) and diagnosis of Collin's Thyroiditis. Reports weight gain after initiating prescribed Levothyroxine by OS cell tower climber. Increased weight, joint pain and overall fatigue [...] identified. Ping Prince APRN.RENEE documented in this encounterSouthern [facility] Medical Center02-29-2024 Instructions* Patient Instructions* Stef Luis, MIRI - 07/07/2023 4:34 PM [...] last 30 minutes. 7. Track meals with [facility] Marlin; aim for 5340-8841 calories per day Follow Up on 10/06 at 3 PM documented in this encounterSouthern [facility] Medical Center02-29-2024 History of Present illness Narrative* Stef Luis RD - 07/07/2023 3:15 PM EST [facility] Nutrition Therapy: Virtual Consult - Re-assessment I have communicated my name and active licensure. The patient s identity and physical location wereverified at the time of this visit. Either the patient or their legal auto service representative has been informed of the risks [...] last 30 minutes. 7. Track meals with [facility] Marlin; aim for 9476-9767 calories per day Nutrition Monitoring & Evaluation: [...] Rate: 1682 Energy needs for weight loss: 5169-0588 calories per day (10-15 kcal/kg CBW) Protein needs: 85 grams protein per day (1.2 g/kg IBW) Nutrition Intervention Delia Bender 08/11/21 1. Continue to take all recommended vitamin/minerals. IN PROGRESS Some examples of vitamins/mineral companies: - Bariatric Fusion: 4 Complete Chewable Multivitamins per day (2 in the AM, 2 in the PM) www.bariatricfusion.com - PiperScout: 1 Bariatric Multivitamin and Calcium Citrate (total of 1200- 1500 mg/day) * take calcium citrate separately from Multivitamin with iron at least 2 hours apart and 4 hours apart from additional calcium www.SocialF5 - Bariatric Choice: 4 Complete Multivitamins (chewables) per day Www.bariatricchoice.com - Bariatric Advantage: 2 Multivitamins and 3 Calcium Citrate Chewables per day * take calcium citrate separately from Multivitamin with iron at least 2 hours apart and 4 hours apart from additional calcium Www.bariatricadvantage.enavu 2. Protein goal: 74-93 grams protein/day MET 3. Fluid goal: 64 ounces per day (no carbonation, caffeine, calories, alcohol) MET 4. Exercise goal: increase as tolerated to goal of 200 minutes/week combination cardiovascular and strength training exercise. IN PROGRESS 5. Practice mindful eating habits-take small portions, eat slowly, chew thoroughly MET Actions to implement interventions: see assessment Diet History: Breakfast - Goomzee core power protein shake (26 gm pro) Snack - tuna pouch OR can (15-20 gm pro) Lunch - fairlife power protein shake (26 gm pro) Snack - banana OR apple with PB2 (6 gm pro) Dinner - 3 oz lean meat (21 gm pro) and vegetables/salad Snack - none Beverages - 119 oz water Alcohol - none Vitamins/Supplements - 21610 international unit(s) vitamin A, 2000 international unit(s) vitamin D,2500 mcg vitamin B12, 65 mg iron, 66247 mg calcium Activity: Activities of Daily Living: [...] Luis RD PATIENT NAME: Mary Junior DATE: 07/07/2023 TIME: 4:33 pm documented in this encounterSouthern [facility] Center09-29-2023 Miscellaneous Notes* Telephone Encounter - Georgina Alford [...] call back phone number. documented in this encounterSouthern [facility] Medical Center08-17-2023 Miscellaneous Notes* Telephone Encounter - Baljit Malone - 12/23/2022 4:13 PM EDT called the pt and rescheduled her with Nettie Canales, pt is currently refusing to see Stu Swain because of recent thyroid issues she is having. Please try to schedule with other provider(s) if possible at pt's request. 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 Abdominal pain from [...] year FOOT SURGERY HX 2013 LEEP PROCEDURE ([employer])_*[place] 12/2015 TONSILLECTOMY PRIMARY/SECONDARY <AGE 11 VAGINAL [...] needed Debra Swain PA-C documented [facility] History of Present illness Narrative* Beth Eldridge [...] 21, 2022 1:42 PM documented in this encounterSouthern [facility]05-16-[facility] History of Present illness Narrative* Caroline Miller PA-C - 09/21/2022 1:00 PM EDT Chief Complaint Patient presents with: ER F/U: [facility] ER FU 09/20/22 HPI Mary Junior is [...] of 60.0 to 69.9 in adult ([facility]) 10/07/2009 Esophagitis, unspecified High grade squamous intraepithelial lesion of cervix 01/01/2016 Iron deficiency 02/06/2021 Neck mass fatty deposit depression Previous Surgical History PAST SURGICAL HISTORY Procedure Laterality Date ESOPHAGOGASTRODUODENOSCOPY TRANSORAL DIAGNOSTIC 03/10/2012 EGD repeat 1 year FOOT SURGERY HX 2013 LEEP PROCEDURE ([employer])_*[place] 12/2015 TONSILLECTOMY PRIMARY/SECONDARY <AGE 11 VAGINAL [...] to reach out to radiology department at [facility] for further clarification on their findings in [...] attention. Caroline Miller PA-C documented in this encounterSouthern [facility]05-15-[address] Smalls [facility] September 20, 2022 7:11pm Note Date/Time September 20, 2022 5:20p m [facility] Medical Records Department [address] [place] [address] Emergency Department Summary 09/20/22 MR#: [id number] Acct: [id number] Name: MARY JUNIOR RICARDO Rep #:[id number] : 1990 32 From: [...] % (Auto) 59.0 Lymph % (Auto) 34.9 [place] % (Auto) 4.4 Eos % (Auto) 1.3 [...] Clarity Clear Urine pH 6.5 Ur Specific [place]asco 1.015 Urine Protein Negative Urine Glucose (UA) [...] 18:00 EDT Reading Location ID and State: [address] [place] [address] Tel [phone], Service support , Discharge Plan Triage Chief [...] your Primary Care Provider. Call [facility] ([phone]) or report to the closest Emergency Room. Call 911 if necessary. 09/20/221910 <Electronically signed by Ranjit Smalls MD> Cosigner Signature (if applicable): CC: Dr. Asif Haque MD ~ Signed [facility] Work Phone: [phone]) 997-641201-06-2023 History of Present illness Narrative* M Rm Swain PA-C - 05/14/2022 10:00 AM EST 32 year old female with c/o Saw Nettie 04/21/2022 f/u right ear infection [facility] clinic: treated with augmentin Notes: + [...] year FOOT SURGERY HX 2013 LEEP PROCEDURE ([employer])_*[place] 12/2015 TONSILLECTOMY PRIMARY/SECONDARY <AGE 11 VAGINAL [...] BASIC Debra Swain PA-C documented in this encounterSouthern [facility] Center12-15-2022 Miscellaneous Notes* Telephone Encounter - Debra Swain PA-C - 04/22/2022 6:32 PM EST The following approved medication requests have been transmitted electronically. Requested Prescriptions Signed Prescriptions Disp Refills meclizine (ANTIVERT) 12.5 mg tab 30 tablet 1 Sig: Take 1 tablet by mouth every 6 hours as needed (dizziness). Debra Swain PA-C documented in this encounterSouthern [facility] Center12-15-2022 Miscellaneous Notes* Telephone Encounter - Candida Sotelo Ma - 04/22/2022 9:58 AM EST Detailed message sent to pt * Telephone Encounter - Debra Swain PA-C - 04/22/2022 9:50 AM EST Have her [facility]. + Flu A The following approved medication requests have been transmitted electronically. Requested Prescriptions Signed Prescriptions Disp Refills oseltamivir (TAMIFLU) 75 mg capsule 10 capsule 0 Sig: Take 1 capsule by mouth twice daily for 5 days. Authorizing Provider: Debra SWAIN PA-C documented in this encounterSouthern [facility] Medical Center12-14-2022 Instructions* Patient Instructions* Nettie Canales APRN.BLOOD BANK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 - 04/21/2022 9:49 AM EST Flu (Influenza) [...] on your place of work. Published by [employer]. This content is reviewed periodically and is subject to change as new health information becomes available. The information is intended to inform and educate and is not a replacement for medical evaluation, advice, diagnosis or treatment by a healthcare professional. Developed by [employer] Copyright 2007 [employer] and/or one of its subsidiaries. All Rights Reserved. Special Instructions: Tamiflu as instructed Copyright [employer] 2007 [employer] Copyright 2008 [employer]. All rights reserved. - [email or web address].[employer] documented in this encounterSouthern [facility] Medical Center12-14-2022 History of Present illness Narrative* Nettie Canales APRN.CNP - 04/21/2022 9:36 AM EST This is a 31 year old female who presents today with: Patient presents with: Recheck: Follow up- R ear infection; was seen at [facility] on 04/19 and started on antibiotic (Augmentin 875mg); fever last evening of 103.5 HISTORY OF PRESENT ILLNESS: Mary Fournier is a 31 year old female. Patient presents with: Recheck: Follow up- R ear infection; was seen at [facility] on 04/19 and started on antibiotic (Augmentin [...] of 60.0 to 69.9 in adult ([facility]) 10/07/2009 Esophagitis, unspecified High grade squamous intraepithelial lesion of cervix 01/01/2016 Iron deficiency 02/06/2021 Neck mass fatty deposit depression PAST SURGICAL HISTORY Procedure Laterality Date ESOPHAGOGASTRODUODENOSCOPY TRANSORAL DIAGNOSTIC 03/10/2012 EGD repeat 1 year FOOT SURGERY HX 2013 LEEP PROCEDURE ([employer])_[place] 12/2015 TONSILLECTOMY PRIMARY/SECONDARY <AGE 11 VAGINAL [...] as needed for worsening/no improvement. Nettie Canales APRN.BLOOD BANK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 documented in this encounterSouthern [facility] Center11-02-2022 History of Present illness Narrative* Josiah Gould [...] TABLET Josiah Gould MD documented in this encounterSouthern [facility] Center10-06-2022 Instructions* Patient Instructions* Debra Swain PA-C - [...] on in 10 days. documented in this encounterSouthern [facility] Center10-06-2022 History of Present illness Narrative* Debra Swain [...] of 60.0 to 69.9 in adult ([facility]) 10/07/2009 Esophagitis, unspecified High grade squamous intraepithelial lesion of cervix 01/01/2016 Iron deficiency 02/06/2021 Neck mass fatty deposit depression PAST SURGICAL HISTORY Procedure Laterality Date ESOPHAGOGASTRODUODENOSCOPY TRANSORAL DIAGNOSTIC 03/10/2012 EGD repeat 1 year FOOT SURGERY HX 2013 LEEP PROCEDURE ([employer])_[place] 12/2015 TONSILLECTOMY PRIMARY/SECONDARY <AGE 11 VAGINAL [...] 60.0 to 69.9 in Adult ([facility]) Spotting in History of Loop Electrosurgical Excision Procedure ([place]ep) of Cervix Affecting History of Labor History of Depression History of Depression Family History of Cystic Fibrosis Panic Disorder Calculus of Gallbladder Without Cholecystitis Without Obstruction Incidental Lung Nodule, > 3mm and < 8mm Morbid Obesity ([facility]) Iron Deficiency Gerd (Gastroesophageal Reflux Disease) Severe Obesity (Bmi >= 40) ([facility]) Current Outpatient Medications Medication Sig Dispense Refill [...] 6 hours as needed for pain. pantoprazole (PROTONIX) 40 mg tablet Take 1 tablet [...] months. Debra Swain PA-C documented in this encounterSouthern [facility] Center07-27-2022 History of Present illness Narrative* Asia Eduardo, PhD - 12/02/2021 8:17 AM EDT [facility] DEPARTMENT OF PSYCHIATRY [facility] PS[facility]OLOG[facility] Bariatric Behavioral Services Progress Note December 02, 2021 Billing codes: ABDI CALIXTO 15814 Jayce CPT Code: 75974 Brief Emotional/Behavioral Assessment with scoring/documentation [id number] Virtual Group Psychotherapy Time initiated session: 12:00 [...] also previously provided to the patient via [employer] Platform: Risk I/O for uromovie Session #: 1 (with undersigned psychologist) Index [...] Asia Eduardo, Ph.D., Psychologist documented in this encounterSouthern [facility] Center07-09-2022 Miscellaneous Notes* Telephone Encounter - M Rm [...] Provider: Debra SWAIN PA-C documented in this encounterSouthern [facility] Center07-05-2022 History of Present illness Narrative* Debra Swain [...] of 60.0 to 69.9 in adult ([facility]) 10/07/2009 Esophagitis, unspecified High grade squamous intraepithelial lesion of cervix 01/01/2016 Iron deficiency 02/06/2021 Neck mass fatty deposit depression PAST SURGICAL HISTORY Procedure Laterality Date ESOPHAGOGASTRODUODENOSCOPY TRANSORAL DIAGNOSTIC 03/10/2012 EGD repeat 1 year FOOT SURGERY HX 2013 LEEP PROCEDURE ([employer])_*[place] 12/2015 TONSILLECTOMY PRIMARY/SECONDARY <AGE 11 VAGINAL [...] CREAM Debra Swain PA-C documented in this encounterSouthern [facility]05-26-2022 History of Present illness Narrative* Scooby Pollock MD - 10/01/2021 7:30 PM EDT The patient did not show up for this appointment. * Mary Beth Greenfield RD - 09/29/2021 7:28 AM EDT documented in this encounterSouthern [facility] Center05-23-2022 Nurse Note* Cathy Mac MA - 09/28/2021 [...] supplements. Cathy Mac MA documented in this encounterSouthern [facility] Center04-06-2022 History of Present illness Narrative* Pedro Jimenez [...] & Bariatric Surgery Fellow [facility] [place] documented in this encounterSouthern [facility] Center04-05-2022 Instructions* Patient Instructions* Summer Bender, MIRI - 08/11/2021 12:51 PM EDT Your weight [...] AM, 2 in the PM) [email or web address].com - [employer]: 1 Bariatric Multivitamin and Calcium Citrate (total of 1200- 1500 mg/day) * take calcium citrate separately from Multivitamin with iron at least 2 hours apart and 4 hours apart from additional calcium [email or web address] - Bariatric Choice: 4 Complete Multivitamins (chewables) per day [email or web address] - Bariatric Advantage: 2 Multivitamins and 3 Calcium Citrate Chewables per day * take calcium citrate separately from Multivitamin with iron at least 2 hours apart and 4 hours apart from additional calcium [email or web address] 2. Protein goal: 74-93 grams protein/day 3. Fluid goal: 64 ounces per day (no carbonation, caffeine, calories, alcohol) 4. Exercise goal: increase as tolerated to goal of 200 minutes/week combination cardiovascular and strength training exercise. 5. Practice mindful eating habits-take small portions, eat slowly, chew thoroughly Patient is to follow-up: 2 months to access adherence to goals, [phone] documented in this encounterSouthern [facility] Center04-05-2022 History of Present illness Narrative* Summer Bender [...] Rate: 2137 Energy needs for weight loss 5724-9789 (10-15 fang/kg current weight) Protein needs: 74-93 [...] AM, 2 in the PM) www.[email or web address].com - [employer]: 1 Bariatric Multivitamin and Calcium Citrate (total of 1200- 1500 mg/day) * take calcium citrate separately from Multivitamin with iron at least 2 hours apart and 4 hours apart from additional calcium [email or web address] - Bariatric Choice: 4 Complete Multivitamins (chewables) per day [email or web address] - Bariatric Advantage: 2 Multivitamins and 3 Calcium Citrate Chewables per day * take calcium citrate separately from Multivitamin with iron at least 2 hours apart and 4 hours apart from additional calcium [email or web address] 2. Protein goal: 74-93 grams protein/day 3. Fluid goal: 64 ounces per day (no carbonation, caffeine, calories, alcohol) 4. Exercise goal: increase as tolerated to goal of 200 minutes/week combination cardiovascular and strength training exercise. 5. 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 01/01/2016 09/08/2020 Overview: S/p LEEP bx, follow up PAP in 2017 was negative Difficulty walking 12/14/2012 10/22/2015 Fracture of 5th metatarsal 07/21/201210/21 Esophagitis, unspecified 03/10/2012 016 Weight gain 08/21/2009 10/22/2015 Obesity 08/21/2009 10/22/2015 documented as of this encounter (statuses as of 08/11/2021) [facility] of Past illness Narrative* Problem Noted Date Resolved Date 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 01/01/2016 09/08/2020 Overview: S/p LEEP bx, follow up PAP in 2017 was negative Difficulty walking 12/14/2012 10/22/2015 Fracture of 5th metatarsal 07/21/201210/21 Esophagitis, unspecified 03/10/2012 016 Weight gain 08/21/2009 10/22/2015 Obesity 08/21/2009 10/22/2015 documented as of this encounter (statuses as of 08/12/2021) [facility] of [facility] illness Narrative* Problem Noted Date Resolved Date 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 01/01/2016 09/08/2020 Overview: S/p LEEP bx, follow up PAP in 2017 was negative Difficulty walking 12/14/2012 10/22/2015 Fracture of 5th metatarsal 07/21/201210/21 Esophagitis, unspecified 03/10/2012 016 Weight gain 08/21/2009 10/22/2015 Obesity 08/21/2009 10/22/2015 documented as of this encounter (statuses as of 10/01/2021) [facility] of [facility] illness Narrative* Problem Noted Date Resolved Date 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 01/01/2016 09/08/2020 Overview: S/p LEEP bx, follow up PAP in 2017 was negative Difficulty walking 12/14/2012 10/22/2015 Fracture of 5th metatarsal 07/21/201210/21 Esophagitis, unspecified 03/10/2012 016 Weight gain 08/21/2009 10/22/2015 Obesity 08/21/2009 10/22/2015 documented as of this encounter (statuses as of 11/10/2021) [facility] of [facility] Narrative* Problem Noted Date Resolved Date 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 01/01/2016 09/08/2020 Overview: S/p LEEP bx, follow up PAP in 2017 was negative Difficulty walking 12/14/2012 10/22/2015 Fracture of 5th metatarsal 07/21/201210/21 Esophagitis, unspecified 03/10/2012 016 Weight gain 08/21/2009 10/22/2015 Obesity 08/21/2009 10/22/2015 documented as of this encounter (statuses as of 11/14/2021) [facility] Narrative* Problem Noted Date Resolved Date 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 01/01/2016 09/08/2020 Overview: S/p LEEP bx, follow up PAP in 2017 was negative Difficulty walking 12/14/2012 10/22/2015 Fracture of 5th metatarsal 07/21/201210/21 Esophagitis, unspecified 03/10/2012 016 Weight gain 08/21/2009 10/22/2015 Obesity 08/21/2009 10/22/2015 documented as of this encounter (statuses as of 11/14/2021) [facility] Narrative* Problem Noted Date Resolved Date 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 01/01/2016 09/08/2020 Overview: S/p LEEP bx, follow up PAP in 2017 was negative Difficulty walking 12/14/2012 10/22/2015 Fracture of 5th metatarsal 07/21/201210/21 Esophagitis, unspecified 03/10/2012 016 Weight gain 08/21/2009 10/22/2015 Obesity 08/21/2009 10/22/2015 documented as of this encounter (statuses as of 12/07/2021) [facility] Narrative* Problem Noted Date Resolved Date 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 01/01/2016 09/08/2020 Overview: S/p LEEP bx, follow up PAP in 2017 was negative Difficulty walking 12/14/2012 10/22/2015 Fracture of 5th metatarsal 07/21/201210/21 Esophagitis, unspecified 03/10/2012 016 Weight gain 08/21/2009 10/22/2015 Obesity 08/21/2009 10/22/2015 documented as of this encounter (statuses as of 02/11/2022) [facility] Narrative* Problem Noted Date Resolved Date 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 01/01/2016 09/08/2020 Overview: S/p LEEP bx, follow up PAP in 2017 was negative Difficulty walking 12/14/2012 10/22/2015 Fracture of 5th metatarsal 07/21/201210/21 Esophagitis, unspecified 03/10/2012 016 Weight gain 08/21/2009 10/22/2015 Obesity 08/21/2009 10/22/2015 documented as of this encounter (statuses as of 03/10/2022) [address]25-2016 History of Past illness Narrative* Problem Noted Date Resolved Date 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 01/01/2016 09/08/2020 Overview: S/p LEEP bx, follow up PAP in 2017 was negative Difficulty walking 12/14/2012 10/22/2015 Fracture of 5th metatarsal 07/21/201210/21 Esophagitis, unspecified 03/10/2012 016 Weight gain 08/21/2009 10/22/2015 Obesity 08/21/2009 10/22/2015 documented as of this encounter (statuses as of 04/21/2022) [place] [address]-25-2016 History of Past illness Narrative* Problem Noted Date Resolved Date 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 01/01/2016 09/08/2020 Overview: S/p LEEP bx, follow up PAP in 2017 was negative Difficulty walking 12/14/2012 10/22/2015 Fracture of 5th metatarsal 07/21/201210/21 Esophagitis, unspecified 03/10/2012 016 Weight gain 08/21/2009 10/22/2015 Obesity 08/21/2009 10/22/2015 documented as of this encounter (statuses as of 04/22/2022) [address]25-2016 History of Past illness Narrative* Problem Noted Date Resolved Date 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 01/01/2016 09/08/2020 Overview: S/p LEEP bx, follow up PAP in 2017 was negative Difficulty walking 12/14/2012 10/22/2015 Fracture of 5th metatarsal 07/21/201210/21 Esophagitis, unspecified 03/10/2012 016 Weight gain 08/21/2009 10/22/2015 Obesity 08/21/2009 10/22/2015 documented as of this encounter (statuses as of 05/15/2022) [address]25-2016 History of Past illness Narrative* Problem Noted Date Resolved Date 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 01/01/2016 09/08/2020 Overview: S/p LEEP bx, follow up PAP in 2017 was negative Difficulty walking 12/14/2012 10/22/2015 Fracture of 5th metatarsal 07/21/201210/21 Esophagitis, unspecified 03/10/2012 016 Weight gain 08/21/2009 10/22/2015 Obesity 08/21/2009 10/22/2015 documented as of this encounter (statuses as of 06/07/2022) [facility] Narrative* Problem Noted Date Resolved Date 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 01/01/2016 09/08/2020 Overview: S/p LEEP bx, follow up PAP in 2017 was negative Difficulty walking 12/14/2012 10/22/2015 Fracture of 5th metatarsal 07/21/201210/21 Esophagitis, unspecified 03/10/2012 016 Weight gain 08/21/2009 10/22/2015 Obesity 08/21/2009 10/22/2015 documented as of this encounter (statuses as of 09/21/2022) [facility] Narrative* Problem [...] of this encounter (statuses as of 11/19/2022) [facility] Narrative* Problem [...] of this encounter (statuses as of 12/24/2022) [facility] Narrative* Problem [...] of this encounter (statuses as of 02/11/2023) [facility] Narrative* Problem [...] of this encounter (statuses as of 03/13/2023) [facility] Narrative* Problem [...] of this encounter (statuses as of 07/08/2023) [facility] Narrative* Problem [...] of this encounter (statuses as of 07/14/2023) [facility] Narrative* Problem [...] of this encounter (statuses as of 08/15/2023) [facility] Diagnosis Impaired intestinal absorption- Primary Unspecified intestinal malabsorption S/P gastric bypass Bariatric surgery status Body mass index 50.0-59.9, adult (HCC) Body Mass Index 50.0-59.9, adult Dietary counseling and surveillance Dietary surveillance and counseling documented [facility]* Diagnosis Body mass index 50.0-59.9, adult (HCC)- Primary Body Mass Index 50.0-59.9, adult S/P gastric bypass Bariatric surgery status [facility] Diagnosis NO SHOW- Primary [facility] Diagnosis Hair loss- Primary Alopecia, unspecified Fatigue, unspecified type S/P bariatric surgery Bariatric surgery status Leg cramps Cramp of limb Cystic acne Other acne [facility] Diagnosis Iron deficiency anemia, unspecified iron deficiency anemia type- Primary Folic acid deficiency Other B-complex deficiencies S/P bariatric surgery Bariatric surgery status [facility] Diagnosis Psychological factors affecting medical condition- Primary Psychic factors associated with diseases classified elsewhere Postgastric surgery syndrome Postgastric surgery syndromes documented in this encounter [facility] note* Diagnosis Iron deficiency anemia, unspecified iron deficiency anemia type- Primary Folic acid deficiency Other B-complex deficiencies S/P bariatric surgery Bariatric surgery status Hair loss Alopecia, unspecified Fatigue, unspecified type Leg cramps Cramp of limb Cystic acne Other acne Cellulitis of skin Cellulitis and abscess of unspecified site documented in this encounter [facility] note* Diagnosis Acute non-recurrent sinusitis, unspecified location- Primary documented in this encounter [facility] note* Diagnosis Upper respiratory symptom- Primary Other symptoms involving respiratory system and chest documented [facility] encounter [facility]* Diagnosis Influenza A- Primary Influenza with other respiratory manifestations documented in this encounter [facility] note* Diagnosis Vertigo- Primary Dizziness and giddiness documented in this encounter [facility] note* Diagnosis S/P bariatric surgery- Primary Bariatric surgery status Hair loss Alopecia, unspecified Cystic acne Other acne Influenza A Influenza with other respiratory manifestations Loss of libido Decreased libido Prediabetes Other abnormal glucose Screening for lipid disorders documented in this encounter [facility] note* Diagnosis Onset Date Resolution Status Acute pharyngitis acute Contact with or suspected ex posure to other viral communicable disease acute [facility] Work Phone: Evaluation note* Diagnosis RUQ pain- Primary Abdominal pain, right upper quadrant Right flank pain Abdominal pain, unspecified site Nausea Nausea alone Epigastric pain Abdominal pain, epigastric Acute constipation Unspecified constipation documented in this encounter [facility] note* Diagnosis Panic disorder- Primary Panic disorder without agoraphobia Thyromegaly Goiter, unspecified Morbid obesity (HCC) Morbid obesity Gastroesophageal reflux disease, unspecified whether esophagitis present documented in this encounter [facility] note* Diagnosis Thyromegaly Goiter, unspecified documented in this encounter [facility] note* Diagnosis Onset Date Resolution Status Multiple thyroid nodules acu te Collin's thyroiditis 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 Status post bariatric surgery chronic Collin's thyroiditis 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 Status post bariatric surgery chronic Encounter for routine gynecological examination noneactive [facility] Work Phone: Evaluation note* Diagnosis Class 3 obesity (HCC)- Primary Dietary counseling and surveillance Dietary surveillance and counseling S/P gastric bypass Bariatric surgery [facility] Diagnosis S/P gastric bypass- Primary Bariatric surgery status Collin's thyroiditis Chronic lymphocytic thyroiditis documented in this encounter [facility] note* Diagnosis Thyroid nodule- Primary Nontoxic uninodular goiter Collin's thyroiditis Chronic lymphocytic thyroiditis [facility] Diagnosis Class 1 obesity- Primary Dietary counseling and surveillance Dietary surveillance and counseling S/P gastric bypass Bariatric surgery status Impaired intestinal absorption Unspecified intestinal malabsorption documented in this encounter [facility] note* Diagnosis Class 1 obesity- Primary documented in this encounter [facility] note* Diagnosis Tinea cruris- Primary Dermatophytosis of groin and perianal area Migraine with aura, not intractable, without status migrainosus Gastroesophageal reflux disease without esophagitis Esophageal reflux Other chronic pain documented in this encounter [facility] note* Diagnosis Thyroid nodule Nontoxic uninodular goiter documented in this encounter [facility] note* Diagnosis Pre-operative examination- Primary Preoperative [...] Unspecified intestinal malabsorption documented in this encounter [facility] note* Diagnosis Pre-operative examination- Primary Preoperative examination, unspecified Morbid obesity (HCC) Morbid obesity Incidental lung nodule, > 3mm and < 8mm Solitary pulmonary nodule Iron deficiency Iron deficiency anemia, unspecified Panic disorder Panic disorder without agoraphobia Gastroesophageal reflux disease, unspecified whether esophagitis present S/P gastric bypass- Primary Bariatric surgery status [facility] Diagnosis Pre-operative examination- Primary Preoperative examination, [...] constipation Unspecified constipation documented in this encounter [facility] note* Diagnosis Pre-operative examination- Primary Preoperative examination, unspecified Morbid obesity (HCC) Morbid obesity Incidental lung nodule, > 3mm and < 8mm Solitary pulmonary nodule Iron deficiency Iron deficiency anemia, unspecified Panic disorder Panic disorder without agoraphobia Gastroesophageal reflux disease, unspecified whether esophagitis present Collin's thyroiditis- Primary Chronic lymphocytic thyroiditis Thyroid nodule Nontoxic uninodular goiter documented in this encounter [facility] note* Diagnosis Pre-operative examination- Primary Preoperative examination, unspecified Morbid obesity (HCC) Morbid obesity Incidental lung nodule, > 3mm and < 8mm Solitary pulmonary nodule Iron deficiency Iron deficiency anemia, unspecified Panic disorder Panic disorder without agoraphobia Gastroesophageal reflux disease, unspecified whether esophagitis present Class 1 obesity- Primary documented in this encounter [facility] note* Diagnosis Pre-operative examination- Primary Preoperative examination, unspecified Morbid obesity (HCC) Morbid obesity Incidental lung nodule, > 3mm and < 8mm Solitary pulmonary nodule Iron deficiency Iron deficiency anemia, unspecified Panic disorder Panic disorder without agoraphobia Gastroesophageal reflux disease, unspecified whether esophagitis present Bacterial sinusitis- Primary Unspecified sinusitis (chronic) documented in this encounter [facility] note* Diagnosis Pre-operative examination- Primary Preoperative [...] Unspecified intestinal malabsorption documented in this encounter [facility] note* Diagnosis Pre-operative examination- Primary Preoperative examination, unspecified Morbid obesity (HCC) Morbid obesity Incidental lung nodule, > 3mm and < 8mm Solitary pulmonary nodule Iron deficiency Iron deficiency anemia, unspecified Panic disorder Panic disorder without agoraphobia Gastroesophageal reflux disease, unspecified whether esophagitis present S/P gastric bypass- Primary Bariatric surgery status documented in this encounter [facility] note* Diagnosis Pre-operative examination- Primary Preoperative examination, unspecified Morbid obesity (HCC) Morbid obesity Incidental lung nodule, > 3mm and < 8mm Solitary pulmonary nodule Iron deficiency Iron deficiency anemia, unspecified Panic disorder Panic disorder without agoraphobia Gastroesophageal reflux disease, unspecified whether esophagitis present Hypoglycemia after GI (gastrointestinal) surgery- Primary Other and unspecified postsurgical nonabsorption documented in this encounter [facility] note* Diagnosis Pre-operative examination- Primary Preoperative examination, unspecified Morbid obesity (HCC) Morbid obesity Incidental lung nodule, > 3mm and < 8mm Solitary pulmonary nodule Iron deficiency Iron deficiency anemia, unspecified Panic disorder Panic disorder without agoraphobia Gastroesophageal reflux disease, unspecified whether esophagitis present Hypoglycemia after GI (gastrointestinal) surgery- Primary Other and unspecified postsurgical nonabsorption documented in this encounter [facility] note* Diagnosis Pre-operative examination- Primary Preoperative [...] Unspecified intestinal malabsorption documented in this encounter [facility] note* Diagnosis Pre-operative examination- Primary Preoperative [...] unspecified postsurgical nonabsorption documented in this encounter [facility] noteNo assessment information availableEstelle [facility] Work Phone: Evaluation note* Diagnosis Pre-operative [...] Unspecified intestinal malabsorption documented in this encounter [facility] note* Diagnosis Pre-operative examination- Primary Preoperative [...] Unspecified intestinal malabsorption [facility] Pre-operative examination- Primary Preoperative examination, [...] unspecified abdominal location [facility] instructions[facility] Instructions Your lab work [...] ER should you have any further concerns [facility] Work Phone: Hospital Discharge instructionsAdditional Instructions Do not drink any alcohol while taking the antibiotics. Start with a liquid diet and advance as tolerated.[facility] Work Phone: Reason for referral (narrative)* Diagnostic Procedure Only (Routine) - Closed Specialty Diagnoses / Procedures Referred By Contac t Referred To Contact XR IMAGING Diagnoses Right flank pain RUQ pain Epigastric pain Acute constipation Procedures XR ABDOMEN 1V SUPINE RADIOLOGIC EXAM ABDOMEN 1 VIEW Caroline Miller PA-C [address] [place] [address] Xr Imaging Referral ID Status Reason Start Date Expiration Date V isits Requested Visits Authorized [id number] Closed Auto-Generate d Referral 09/21/2022 10/21/2023 1 1 * Diagnostic Procedure Only (Routine) - Authorized Specialty Diagnoses / Procedures Referred By Contac t Referred To Contact US IMAGING Diagnoses Right flank pain Procedures US ABD RIGHT UPPER QUADRANT US ABDOMINAL REAL TIME W/IMAGE LIMITED Caroline Miller PA-C [address] [place] [address] Us Imaging Referral ID Status Reason Start Date Expiration Date Visits Requested Visits Authorized [id number] Authorized Auto-Generat ed Referral 09/21/2022 10/21/2023 1 1 [facility] for referral (narrative)* Diagnostic Procedure Only (Routine) - Authorized Specialty Diagnoses / Procedures Referred By Contac t Referred To Contact US IMAGING Diagnoses Thyromegaly Procedures US THYROID/PARATHYROID US SOFT TISSUE HEAD & NECK REAL TIME IMGE Debra Doshi PA-C [address] [place] [address] Us Imaging Referral ID Status Reason Start Date Expiration Date Visits Requested Visits Authorized [id number] Authorized Auto-Generat ed Referral 11/18/2022 12/18/2023 1 1 [facility] for referral (narrative)* Diagnostic Procedure Only (Routine) - Closed Specialty Diagnoses / Procedures Referred By Contac t Referred To Contact US IMAGING Diagnoses Thyromegaly Procedures US THYROID/PARATHYROID US SOFT TISSUE HEAD & NECK REAL TIME IMGE Debra Doshi PA-C [address] [place] [address] [place] [address] Referral ID Status Reason Start Date Expiration Date V isits Requested Visits Authorized [id number] Closed Auto-Generate d Referral 11/18/2022 12/18/2023 1 1 [facility] for referral (narrative)* Diagnostic Procedure Only (Routine) - Authorized Specialty Diagnoses / Procedures [facility] Referred To Contact US IMAGING Diagnoses Thyroid nodule Procedures US THYROID/PARATHYROID US SOFT TISSUE HEAD & NECK REAL TIME IMGE Donita Thompson MD [address] [place] [address] [place] [address] Referral ID Status Reason Start Date Expiration Date Visits Requested Visits Authorized [id number] Authorized Auto-Generat ed Referral 08/15/2023 09/13/2024 1 1 [facility] for referral (narrative)* Diagnostic Procedure Only (Routine) - Closed Specialty Diagnoses / Procedures [facility] Referred To Contact XR IMAGING Diagnoses Right flank pain RUQ pain Epigastric pain Acute constipation Procedures XR ABDOMEN 1V SUPINE RADIOLOGIC EXAM ABDOMEN 1 VIEW Carolien Miller PA-C [address] [place] [address] [place] [address] Referral ID Status Reason Start Date Expiration Date V isits Requested Visits Authorized [id number] Closed Auto-Generate d Referral 09/21/2022 10/21/2023 1 1 [facility] for referral (narrative)* Diagnostic Procedure Only (Routine) - Authorized Specialty Diagnoses / Procedures [facility] Referred To Contact US IMAGING Diagnoses Thyroid nodule Procedures US THYROID/PARATHYROID US SOFT TISSUE HEAD & NECK REAL TIME IMGE Donita Thompson MD [address] [place] [address] [place] [address] Referral ID Status Reason Start Date Expiration Date Visits Requested Visits Authorized [id number] Authorized Auto-Generat ed Referral 12/18/2024 03/15/2025 1 1 [facility] for referral (narrative)No reason for referral information availableFrancis Medical Services Work Phone: Reason for visit Narrative* Diagnostic Procedure Only (Routine) - Closed Specialty Diagnoses / Procedures Referred By Fabi t Referred To Contact XR IMAGING Diagnoses Right flank pain RUQ pain Epigastric pain Acute constipation Procedures XR ABDOMEN 1V SUPINE RADIOLOGIC EXAM ABDOMEN 1 VIEW Caroline Miller PA-C [address] [facility] [place] [address] [place] [address] Referral ID Status Reason Start Date Expiration Date V isits Requested Visits Authorized [id number] Closed Auto-Generate d Referral 09/21/2022 10/21/2023 1 1 [facility] Summary Purpose Family History No Family [...] FoundDocuments on File Type Date Recorded Patient Mobile Tester Expl anation Advance Directive(s) 06/12/2021 1:25 PM Advance Directive Response Recorded Date/ Time Living Will No September 20, 2022 5 :12pm Power of Slasher No September 20, 2022 5:12pm Advance Directive Response Recorded Date/ Time Living Will No September 20, 2022 4 :12pm Power of Slasher No September 20, 2022 4:12pm Advance Directive Response Recorded Date/ Time Living Will No September 20, 2022 5 :12pm Do you have a Healthcare Power of Slasher? No September 20, 2022 5:12pm Advance Directive Response Recorded Date/ Time Do you have a Healthcare Power of Slasher? No November 07, 2024 3:07am Advance Directive Response Recorded Date/ Time Do you have a Healthcare Power of Slasher? No November 07, 2024 3:07am Do you have a Healthcare Power of Slasher? 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 Reason for Visit Multiple thyroid [...] Referral Specialty Diagnoses / Procedures Referred By Faib jenkins 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 Procedures CONSULT TO ENDOCRINOLOGY OFFICE/OUTPATIENT [facility] 60 MINUTES 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, [employer]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 [address] [place] [address] Referral ID Status Reason Start Date Expiration Date Visits Requested Visits Authorized [id number] Authorized PCP Requested Referral 07/14/2023 10/12/2023 1 1 Additional Source Comments INFORMATION SOURCE (unrecogn ized section and content) DATE CREATED AUTHOR 10/27/2017 [facility] ([place]) DATE CREATED AUTHOR AUTHOR'S ORGANIZ ATION 12/02/2017 [facility] DATE CREATED AUTHOR AUTHOR'S ORGANIZ ATION 07/18/2018 [facility] DATE CREATED AUTHOR AUTHOR'S ORGANIZ ATION 12/27/2024 [facility] DATE CREATED AUTHOR AUTHOR'S ORGANIZ ATION 03/06/2025 [facility] Source Comments (unrecognize d section and content) In the event this informatio n is protected by the Federal Confidentiality of Alcohol and Drug Abuse Patient Records regulations: The Federal rules restrict any use of the information to criminally investigate or prosecute any alcohol or drug abuse patient.[facility] the event this information is protected by the Federal Confidentiality of Alcohol and Drug Abuse Patient Records regulations: The Federal rules restrict any use of the information to criminally investigate or prosecute any alcohol or drug abuse patient.[facility] CenterIn the event this information is protected by the Federal Confidentiality of Alcohol and Drug Abuse Patient Records regulations: The Federal rules restrict any use of the information to criminally investigate or prosecute any alcohol or drug abuse patient.[facility]In the event this information is protected by the Federal Confidentiality of Alcohol and Drug Abuse Patient Records regulations: The Federal rules restrict any use of the information to criminally investigate or prosecute any alcohol or drug abuse patient.[facility] CenterIn the event this information is protected by the Federal Confidentiality of Alcohol and Drug Abuse Patient Records regulations: The Federal rules restrict any use of the information to criminally investigate or prosecute any alcohol or drug abuse patient.[facility] CenterIn the event this information is protected by the Federal Confidentiality of Alcohol and Drug Abuse Patient Records regulations: The Federal rules restrict any use of the information to criminally investigate or prosecute any alcohol or drug abuse patient.[facility] the event this information is protected by the Federal Confidentiality of Alcohol and Drug Abuse Patient Records regulations: The Federal rules restrict any use of the information to criminally investigate or prosecute any alcohol or drug abuse patient.[facility] CenterIn the event this information is protected by the Federal Confidentiality of Alcohol and Drug Abuse Patient Records regulations: The Federal rules restrict any use of the information to criminally investigate or prosecute any alcohol or drug abuse patient.[facility] Center[facility] the event this information is protected by the Federal Confidentiality of Alcohol and Drug Abuse Patient Records regulations: The Federal rules restrict any use of the information to criminally investigate or prosecute any alcohol or drug abuse patient.[facility] the event this information is protected by the Federal Confidentiality of Alcohol and Drug Abuse Patient Records regulations: The Federal rules restrict any use of the information to criminally investigate or prosecute any alcohol or drug abuse patient.[facility] CenterIn the event this information is protected by the Federal Confidentiality of Alcohol and Drug Abuse Patient Records regulations: The Federal rules restrict any use of the information to criminally investigate or prosecute any alcohol or drug abuse patient.[facility] CenterIn the event this information is protected by the Federal Confidentiality of Alcohol and Drug Abuse Patient Records regulations: The Federal rules restrict any use of the information to criminally investigate or prosecute any alcohol or drug abuse patient.[facility] CenterIn the event this information is protected by the Federal Confidentiality of Alcohol and Drug Abuse Patient Records regulations: The Federal rules restrict any use of the information to criminally investigate or prosecute any alcohol or drug abuse patient.[facility] CenterIn the event this information is protected by the Federal Confidentiality of Alcohol and Drug Abuse Patient Records regulations: The Federal rules restrict any use of the information to criminally investigate or prosecute any alcohol or drug abuse patient.[facility] Center[facility] the event this information is protected by the Federal Confidentiality of Alcohol and Drug Abuse Patient Records regulations: The Federal rules restrict any use of the information to criminally investigate or prosecute any alcohol or drug abuse patient.[facility] CenterIn the event this information is protected by the Federal Confidentiality of Alcohol and Drug Abuse Patient Records regulations: The Federal rules restrict any use of the information to criminally investigate or prosecute any alcohol or drug abuse patient.[facility] CenterIn the event this information is protected by the Federal Confidentiality of Alcohol and Drug Abuse Patient Records regulations: The Federal rules restrict any use of the information to criminally investigate or prosecute any alcohol or drug abuse patient.[facility] CenterIn the event this information is protected by the Federal Confidentiality of Alcohol and Drug Abuse Patient Records regulations: The Federal rules restrict any use of the information to criminally investigate or prosecute any alcohol or drug abuse patient.[facility] CenterIn the event this information is protected by the Federal Confidentiality of Alcohol and Drug Abuse Patient Records regulations: The Federal rules restrict any use of the information to criminally investigate or prosecute any alcohol or drug abuse patient.[facility] CenterIn the event this information is protected by the Federal Confidentiality of Alcohol and Drug Abuse Patient Records regulations: The Federal rules restrict any use of the information to criminally investigate or prosecute any alcohol or drug abuse patient.[facility] CenterIn the event this information is protected by the Federal Confidentiality of Alcohol and Drug Abuse Patient Records regulations: The Federal rules restrict any use of the information to criminally investigate or prosecute any alcohol or drug abuse patient.[facility] CenterIn the event this information is protected by the Federal Confidentiality of Alcohol and Drug Abuse Patient Records regulations: The Federal rules restrict any use of the information to criminally investigate or prosecute any alcohol or drug abuse patient.[facility] CenterIn the event this information is protected by the Federal Confidentiality of Alcohol and Drug Abuse Patient Records regulations: The Federal rules restrict any use of the information to criminally investigate or prosecute any alcohol or drug abuse patient.[facility] CenterIn the event this information is protected by the Federal Confidentiality of Alcohol and Drug Abuse Patient Records regulations: The Federal rules restrict any use of the information to criminally investigate or prosecute any alcohol or drug abuse patient.[facility] CenterIn the event this information is protected by the Federal Confidentiality of Alcohol and Drug Abuse Patient Records regulations: The Federal rules restrict any use of the information to criminally investigate or prosecute any alcohol or drug abuse patient.[facility] CenterIn the event this information is protected by the Federal Confidentiality of Alcohol and Drug Abuse Patient Records regulations: The Federal rules restrict any use of the information to criminally investigate or prosecute any alcohol or drug abuse patient.[facility] CenterIn the event this information is protected by the Federal Confidentiality of Alcohol and Drug Abuse Patient Records regulations: The Federal rules restrict any use of the information to criminally investigate or prosecute any alcohol or drug abuse patient.[facility] CenterIn the event this information is protected by the Federal Confidentiality of Alcohol and Drug Abuse Patient Records regulations: The Federal rules restrict any use of the information to criminally investigate or prosecute any alcohol or drug abuse patient.[facility] CenterIn the event this information is protected by the Federal Confidentiality of Alcohol and Drug Abuse Patient Records regulations: The Federal rules restrict any use of the information to criminally investigate or prosecute any alcohol or drug abuse patient.[facility] CenterIn the event this information is protected by the Federal Confidentiality of Alcohol and Drug Abuse Patient Records regulations: The Federal rules restrict any use of the information to criminally investigate or prosecute any alcohol or drug abuse patient.[facility] CenterIn the event this information is protected by the Federal Confidentiality of Alcohol and Drug Abuse Patient Records regulations: The Federal rules restrict any use of the information to criminally investigate or prosecute any alcohol or drug abuse patient.[facility] CenterIn the event this information is protected by the Federal Confidentiality of Alcohol and Drug Abuse Patient Records regulations: The Federal rules restrict any use of the information to criminally investigate or prosecute any alcohol or drug abuse patient.[facility] CenterIn the event this information is protected by the Federal Confidentiality of Alcohol and Drug Abuse Patient Records regulations: The Federal rules restrict any use of the information to criminally investigate or prosecute any alcohol or drug abuse patient.[facility] CenterIn the event this information is protected by the Federal Confidentiality of Alcohol and Drug Abuse Patient Records regulations: The Federal rules restrict any use of the information to criminally investigate or prosecute any alcohol or drug abuse patient.[facility] CenterIn the event this information is protected by the Federal Confidentiality of Alcohol and Drug Abuse Patient Records regulations: The Federal rules restrict any use of the information to criminally investigate or prosecute any alcohol or drug abuse patient.[facility] CenterIn the event this information is protected by the Federal Confidentiality of Alcohol and Drug Abuse Patient Records regulations: The Federal rules restrict any use of the information to criminally investigate or prosecute any alcohol or drug abuse patient.[facility] Center[facility] the event this information is protected by the Federal Confidentiality of Alcohol and Drug Abuse Patient Records regulations: The Federal rules restrict any use of the information to criminally investigate or prosecute any alcohol or drug abuse patient.[facility] [place] [facility] CenterIn the event this information is protected by the Federal Confidentiality of Alcohol and Drug Abuse Patient Records regulations: The Federal rules restrict any use of the information to criminally investigate or prosecute any alcohol or drug abuse patient.[facility] [place] [facility] CenterIn the event this information is protected by the Federal Confidentiality of Alcohol and Drug Abuse Patient Records regulations: The Federal rules restrict any use of the information to criminally investigate or prosecute any alcohol or drug abuse patient.[facility] [place] [facility] CenterIn the event this information is protected by the Federal Confidentiality of Alcohol and Drug Abuse Patient Records regulations: The Federal rules restrict any use of the information to criminally investigate or prosecute any alcohol or drug abuse patient.[facility] [place] [facility] CenterIn the event this information is protected by the Federal Confidentiality of Alcohol and Drug Abuse Patient Records regulations: The Federal rules restrict any use of the information to criminally investigate or prosecute any alcohol or drug abuse patient.[facility] [place] [facility] CenterIn the event this information is protected by the Federal Confidentiality of Alcohol and Drug Abuse Patient Records regulations: The Federal rules restrict any use of the information to criminally investigate or prosecute any alcohol or drug abuse patient.[facility] [place] [facility] CenterIn the event this information is protected by the Federal Confidentiality of Alcohol and Drug Abuse Patient Records regulations: The Federal rules restrict any use of the information to criminally investigate or prosecute any alcohol or drug abuse patient.[facility] [place] [facility] CenterIn the event this information is protected by the Federal Confidentiality of Alcohol and Drug Abuse Patient Records regulations: The Federal rules restrict any use of the information to criminally investigate or prosecute any alcohol or drug abuse patient.[facility] [place] [facility] CenterIn the event this information is protected by the Federal Confidentiality of Alcohol and Drug Abuse Patient Records regulations: The Federal rules restrict any use of the information to criminally investigate or prosecute any alcohol or drug abuse patient.[facility] [place] [facility] CenterIn the event this information is protected by the Federal Confidentiality of Alcohol and Drug Abuse Patient Records regulations: The Federal rules restrict any use of the information to criminally investigate or prosecute any alcohol or drug abuse patient.[facility] [place] [facility] CenterIn the event this information is protected by the Federal Confidentiality of Alcohol and Drug Abuse Patient Records regulations: The Federal rules restrict any use of the information to criminally investigate or prosecute any alcohol or drug abuse patient.[facility] [place] [facility] CenterIn the event this information is protected by the Federal Confidentiality of Alcohol and Drug Abuse Patient Records regulations: The Federal rules restrict any use of the information to criminally investigate or prosecute any alcohol or drug abuse patient.[facility] [place] [facility] CenterIn the event this information is protected by the Federal Confidentiality of Alcohol and Drug Abuse Patient Records regulations: The Federal rules restrict any use of the information to criminally investigate or prosecute any alcohol or drug abuse patient.[facility] Reason for Visit (unrecogniz ed section [...] R ear inf ection; was seen at [facility] on 04/19 and started on antibiotic (Augmentin 875mg); fever last evening of 103.5 Reason Comments Results Reason Comments ER F/U [facility] ER FU 09/20/22 Reason Comments 6 Month Exam Reason Comments Returning Patient's Call Reason Comments Radiology US Specialty Diagnoses / Procedures Referred By Contac t Referred To Contact US IMAGING Diagnoses Thyromegaly Procedures US THYROID/PARATHYROID US SOFT TISSUE HEAD & NECK REAL TIME IMGE Debra Doshi, CASE [address] [place] [address] [facility] Imaging [place] [address] Referral ID Status Reason Start Date Expiration Date V isits Requested Visits Authorized [id number] Closed Auto-Generate d Referral 11/18/2022 12/18/2023 1 1 Reason Comments Patient Education Reassessment Reason Comments Follow Up Reason Comments Thyroid Problem Collin's Specialty Diagnoses / Procedures Referred By Contac t 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 Procedures CONSULT TO ENDOCRINOLOGY OFFICE/OUTPATIENT [facility] 60 MINUTES Ping Prince, [employer]BLOOD BANK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 [address] [place] [address] Referral ID Status Reason Start Date Expiration Date V isits Requested Visits Authorized [id number] Closed PCP Requested Referral 07/14/2023 10/12/2023 1 1 Reason Comments Reassessment Patient Education Reason Comments Follow Up Reason Comments Physical Reason Comments Radiology US Specialty Diagnoses / Procedures Referred By Contac t Referred To Contact US IMAGING Diagnoses Thyroid nodule Procedures US THYROID/PARATHYROID US SOFT TISSUE HEAD & NECK REAL TIME IMGE Donita Thompson MD [address] [place] [address] Us Imaging [id number] Referral ID Status Reason Start Date Expiration Date V isits Requested Visits Authorized [id number] Closed Auto-Generate d Referral 08/15/2023 09/13/2024 1 [...] Care Teams (unrecognized sec tion and content) State Tested Nursing Assistant Relationship Specialty Start Date End Date Asif Haque MD [address] [facility] [place] [address] PCP - General Family Practice 02/16/12 State Tested Nursing Assistant Relationship Specialty Start Date End Date Asif Haque MD [address] [facility] [place] [address] PCP - General Family Practice 02/16/12 State Tested Nursing Assistant Relationship Specialty Start Date End Date Asif Haque MD [address] [facility] [place] [address] PCP - General Family Practice 02/16/12 State Tested Nursing Assistant Relationship Specialty Start Date End Date Asif Haque MD [address] [facility] [place] [address] PCP - General Family Practice 02/16/12 State Tested Nursing Assistant Relationship Specialty Start Date End Date Asif Haque MD [address] [facility] [place] [address] PCP - General Family Practice 02/16/12 State Tested Nursing Assistant Relationship Specialty Start Date End Date Asif Haque MD [address] [facility] [place] [address] PCP - General Family Practice 02/16/12 State Tested Nursing Assistant Relationship Specialty Start Date End Date Asif Haque MD [address] [facility] [place] [address] PCP - General Family Practice 02/16/12 State Tested Nursing Assistant Relationship Specialty Start Date End Date Asif Haque MD [address] [facility] [place] [address] PCP - General Family Medicine 02/16/12 State Tested Nursing Assistant Relationship Specialty Start Date End Date Asif Haque MD [address] [facility] [place] [address] PCP - General Family Medicine 02/16/12 State Tested Nursing Assistant Relationship Specialty Start Date End Date Asif Haque MD [address] [facility] [place] [address] PCP - General Family Medicine 02/16/12 State Tested Nursing Assistant Relationship Specialty Start Date End Date Asif Haque MD [address] [facility] [place] [address] PCP - General Family Medicine 02/16/12 State Tested Nursing Assistant Relationship Specialty Start Date End Date Asif Haque MD [address] [facility] [place] [address] PCP - General Family Medicine 02/16/12 State Tested Nursing Assistant Relationship Specialty Start Date End Date Asif Haque MD [address] [facility] [place] [address] PCP - General Family Medicine 02/16/12 Team [...] Dr. Ranjit Smalls MD Emergency Provider Active State Tested Nursing Assistant Relationship Specialty Start Date End Date Asif Haque MD [address] [facility] [place] [address] PCP - General Family Medicine 02/16/12 State Tested Nursing Assistant Relationship Specialty Start Date End Date Debra Swain PA-C [address] [facility] [place] [address] PCP - General Family Medicine 11/18/22 State Tested Nursing Assistant Relationship Specialty Start Date End Date Debra Swain PA-C [address] [place] [address] PCP - General Family Medicine 11/18/22 State Tested Nursing Assistant Relationship Specialty Start Date End Date Debra Swain PA-C [address] [place], [place] [address] PCP - General Family Medicine 11/18/22 State Tested Nursing Assistant Relationship Specialty Start Date End Date Debra Swain PA-C [address] [place], [place] [address] PCP - General Family Medicine 11/18/22 Team Status: Inactive Member Role Status Dates Dr. Asif Haque MD Primary Care Provider, Referring Provider Active Dr. Julissa Connell MD Attending Provider Active Team Status: Inactive Member Role Status Dates Dr. Asif Hqaue MD Primary Care Provider, Referring Provider Active [...] Dr. Felice Centeno MD Attending Provider Active State Tested Nursing Assistant Relationship Specialty Start Date End Date Debra Swain PA-C [address] [place] [address] PCP - General Family Medicine 11/18/22 State Tested Nursing Assistant Relationship Specialty Start Date End Date Debra Swain PA-C [address] [place], [place] [address] PCP - General Family Medicine 11/18/22 State Tested Nursing Assistant Relationship Specialty Start Date End Date Debra Swain PA-C [address] [place], [place] [address] PCP - General Family Medicine 11/18/22 State Tested Nursing Assistant Relationship Specialty Start Date End Date Debra Swain PA-C [address] [place] [address] PCP - General Family Medicine 11/18/22 State Tested Nursing Assistant Relationship Specialty Start Date End Date Debra Swain PA-C [address] [place] [address] PCP - General Family Medicine 11/18/22 State Tested Nursing Assistant Relationship Specialty Start Date End Date Debra Swain PA-C [address] [place] [address] PCP - General Family Medicine 11/18/22 State Tested Nursing Assistant Relationship Specialty Start Date End Date Debra Swain PA-C [address] [place] [address] PCP - General Family Medicine 11/18/22 State Tested Nursing Assistant Relationship Specialty Start Date End Date Debra Swain PA-C [address] [place] [address] PCP - General Family Medicine 11/18/22 State Tested Nursing Assistant Relationship Specialty Start Date End Date Debra Swain PA-C [address] [place] [address] PCP - General Family Medicine 11/18/22 State Tested Nursing Assistant Relationship Specialty Start Date End Date Asif Haque MD [address] [place] [address] PCP - General Family Medicine 02/16/12 11/17/22 State Tested Nursing Assistant Relationship Specialty Start Date End Date Asif Haque MD [address] [place] [address] PCP - General Family Medicine 02/14/24 State Tested Nursing Assistant Relationship Specialty Start Date End Date Asif Haque MD [address] [facility] [place] [address] PCP - General Family Medicine 02/14/24 State Tested Nursing Assistant Relationship Specialty Start Date End Date Asif Haque MD [address] [place] [address] PCP - General Family Medicine 02/14/24 State Tested Nursing Assistant Relationship Specialty Start Date End Date Asif Haque MD [address] [place] [address] PCP - General Family Medicine 02/14/24 State Tested Nursing Assistant Relationship Specialty Start Date End Date Asif Haque MD [address] [place] [address] PCP - General Family Medicine 02/14/24 Nettie Canales, MARYJANE.BLOOD BANK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 [address] [place] [address] [employer] [facility] 04/16/24 Kiera Bragg, [employer]BLOOD BANK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 [address] [place] [address] [employer] [facility] 04/16/24 State Tested Nursing Assistant Relationship Specialty Start Date End Date Asif Haque MD [address] [place] [address] PCP - General Family Medicine 02/14/24 Nettie Canales, [employer].BLOOD BANK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 [address] [place] [address] [employer] [facility] 04/16/24 Kiera Bragg APRN.BLOOD BANK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 [address] [place] [address] [facility] 04/16/24 State Tested Nursing Assistant Relationship Specialty Start Date End Date Asif Haque MD [address] [place], [place] 501[address] [phone] PCP - General Family Medicine 02/14/24 Nettie Canales APRN.BLOOD BANK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 [address] [place] [address] [facility] 04/16/24 Kiera Bragg [employer].BLOOD BANK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 [address] [place] [address] [facility] 04/16/24 State Tested Nursing Assistant Relationship Specialty Start Date End Date Asif Haque MD [address] [place] [address] PCP - General Family Medicine 02/14/24 Nettie Canales [employer].BLOOD BANK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 [address] [place] [address] [facility] Medicine 04/16/24 Kiera Bragg [employer].BLOOD BANK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 [address] [place] [address] [facility] Medicine 04/16/24 State Tested Nursing Assistant Relationship Specialty Start Date End Date Asif Haque MD [address] [place], [place] [address]30[address] [phone] PCP - General Family Medicine 02/14/24 Nettie Canales APRN.BLOOD BANK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 [address] [facility] [place] [address] [facility] 04/16/24 Kiera Bragg APRN.BLOOD BANK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 [address] [facility] [place] [address] [facility] 04/16/24 State Tested Nursing Assistant Relationship Specialty Start Date End Date Asif Haque MD [address] [facility] [place], [place] [address] [phone] PCP - General Family Medicine 02/14/24 Nettie Canales APRN.BLOOD BANK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 [address] [facility] [address] [facility] 04/16/24 Kiera Bragg [employer].BLOOD BANK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 [address] [facility] [place] [address] [facility] 04/16/24 State Tested Nursing Assistant Relationship Specialty Start Date End Date Asif Haque MD [address] [facility] [place] [address] PCP - General Family Medicine 02/14/24 Nettie Canales [employer].BLOOD BANK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 [address] [facility] [place] [address] [facility] 04/16/24 Kiera Bragg APRN.BLOOD BANK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 [address] [facility] [place] [address] [facility] 04/16/24 Team Status: Inactive Member [...] September 21, 2024 End: September 21, 2024 State Tested Nursing Assistant Relationship Specialty Start Date End Date Asif Haque MD [address] [facility] [place] [address] PCP - General Family Medicine 02/14/24 Nettie Canales APRN.BLOOD BANK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 [address] [facility] [address] [facility] 04/16/24 Kiera Bragg APRN.BLOOD BANK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 [address] [facility] [place] [address] [facility] 04/16/24 State Tested Nursing Assistant Relationship Specialty Start Date End Date Asif Haque MD [address] [facility] [place] [address] PCP - General Family Medicine 02/14/24 Nettie Canales APRN.BLOOD BANK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 [address] [facility] [place] [address] [employer] [facility] 04/16/24 Kiera Bragg APRN.BLOOD BANK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 [address] [place] [address] [facility] 04/16/24 Team Status: Active Member Role/Relationship Status [...] End: November 07, 2024 Dr. Nadir Ortiz , DO Emergency Provider Active Start: November 07, 2024 End: November 07, 2024 State Tested Nursing Assistant Relationship Specialty Start Date End Date Asif Haque MD [address] [place], [place] [address] PCP - General Family Medicine 02/14/24 Nettie Canales, [employer].BLOOD BANK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 [address] [place], [place] [address] [facility] 04/16/24 Kiera Bragg, [employer].BLOOD BANK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 [address] [place], [place] [address] [facility] 04/16/24 Team Status: Inactive Member Role/Relationship Status Dates Dr. Asif Haque MD Primary Care Provider Active Start: November 09, 2024 End: November 09, 2024 Dr. Zan Pascal , Emergency Provider Active Start: November 09, 2024 End: November 09, 2024 Team Status: Inactive Member Role/Relationship Status Dates Dr. Asif Haque MD Primary Care Provider Active Start: November 07, 2024 End: November 07, 2024 Dr. Nadir Ortiz , DO Attending Provider Active Start: November 07, [...] December 26, 2024 End: December 26, 2024 State Tested Nursing Assistant Relationship Specialty Start Date End Date Asif Haque MD [address] [place] [address] PCP - General Family Medicine 02/14/24 Nettie Canales, [employer].BLOOD BANK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 [address] [place], [place] [address] [employer] [facility] 04/16/24 Kiera Bragg [employer].BLOOD BANK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 [address] [place] [address] [employer] 04/16/[address] [place] [address] [employer] 12/31/24 State Tested Nursing Assistant Relationship Specialty Start Date End Date Asif Haque MD [address] [place] [address] PCP - General Family Medicine 02/14/24 Nettie Canales, [employer].BLOOD BANK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 [address] [place] [address] [employer] [facility] 04/16/24 Kiera Bragg APRN.BLOOD BANK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 [address] [place] [address] [employer] [facility] 04/16/[address] [place] [address] [employer] 12/31/24 Goals (unrecognized section and content) [...] BE BASED ON THE PRIMARY CLINICAL RECORDS. [facility]. provides no warranty or guarantee of the accuracy or completeness of information in this document.
[2025-04-12 17:56] LABS: CRP 5.52 mg/L (0.0-3.0)
[2025-04-15 15:08] LABS: Immunoglobulin A 189 mg/dL (87-352)
== END | disposition home or self-care (01) ==
LOC: LAB 15:54
PROVIDERS: PCP Family Medicine; Referring Provider Student in an Organized Health Care Education/Training Program; Visit Provider Student in an Organized Health Care Education/Training Program
DX: K52.9 Noninfective gastroenteritis and colitis, unspecified (principal)
CPT/HCPCS: 36415; 82784; 83516; 86140; 86255